=== PATIENT | female | born 1950 | race Two or more races ===

== ENCOUNTER 2019-03-08 12:43 | Day surgery (SDC) | payer MEDICARE ==
--- NOTE | 2019-03-07 17:15 | Pre-op HX & Phy Repo 2 SIG ---
DATE OF ENDOSCOPY: 03/08/2019 PRE-ENDOSCOPY HISTORY AND PHYSICAL Scheduled for outpatient Kock pouch endoscopy on 03/08/2019. HISTORY OF PRESENT ILLNESS: The patient is a 68-year-old female in overall stable health, who has a malfunctioning Kock pouch continent ileostomy. The patient has a past history of ulcerative colitis that developed at age 22. In 1978, she underwent proctocolectomy with creation of a Kock pouch. She required laparotomy for small bowel obstruction in 2000 and was told she had very minimal adhesions. Her usual routine is to empty her pouch by intubating it 3 times per day and not at all at night. She has not had any pouchitis for approximately 20 years. She uses a nasopharyngeal airway #32 as an intubation catheter and in the past year, but especially in the last 4 months, the patient has had increasing difficulty inserting her drainage catheter. She estimates the point of resistance is approximately 3 inches into the stoma. She is not having any incontinence of stool or gas. She is scheduled to undergo Kock pouch endoscopy. OPERATIONS: In addition to the above, the patient has undergone spine surgery in 2000 and 2002, bilateral carpal tunnel release, bilateral cataract surgery, and multiple treatments for kidney stones including extracorporeal shock wave lithotripsy and cystoscopic extractions for calcium stones. MEDICATIONS: Aspirin 81 mg, Lipitor, Wellbutrin, Soma, Celebrex, Celexa, vitamin B12 and iron supplements, Atrovent, Myrbetriq for bladder spasms, Protonix, and Desyrel. ALLERGIES TO MEDICATIONS: None. REVIEW OF SYSTEMS: The patient has a parathyroid tumor with elevated serum calciums and is pending surgical treatment for that. She is nulliparous. PHYSICAL EXAMINATION: GENERAL: The patient is 5 feet 4 inches and 135 pounds. In the past, she was as high as 180 to 190 pounds. ABDOMEN: Soft. There is a long midline scar. There is a small stoma in the right lower quadrant with a mild parastomal hernia. IMPRESSION: Malfunctioning Kock pouch continent ileostomy with difficulty with intubation. PLAN: The patient will undergo pouch endoscopy, which does not require any sedation or anesthesia and we will then determine further recommendations based on those findings. I have had a full discussion with the patient regarding the nature of the pouch endoscopy, indications, alternatives, options, and risks. She understands and agrees to proceed. Lalo Meadows M.D. DR: YANETH JOB#: [id number] CC: MICHELLE
[~2019-03-08] VITALS: Ht 162.6 cm; Wt 63.5 kg
--- NOTE | 2019-03-08 12:46 | Pre-Procedure Note/Attestation ---
Pre-Procedure Note/Attestation Complete Prior to Procedure Planned Procedure: not applicable Procedure Narrative: Kock Pouch endoscopy Indications for Procedure Pre-Operative Diagnosis: malfunctioning Kock pouch with difficulty with intubation Attestation I attest that I discussed the nature of the procedure; its benefits; risks and complications; and alternatives (and the risks and benefits of such alternatives ), prior to the procedure, with the patient (or the patient's legal counter sales representative). I attest that, if there was a reasonable possibility of needing a blood transfusion, the patient (or the patient's legal counter sales representative) was given the [facility] [place] [facility] standardized written summary, pursuant to the [place] Blood Safety Act ([place] Health and Safety Code # 1645, as amended). I attest that I re-evaluated the patient just prior to the surgery and that there has been no change in the patient's H&P, except as documented below: none Lalo Meadows MD March 08, 2019 12:46
[2019-03-08] MEDS ORDERED: ASPIRIN81 MG ORAL (13:26)
[2019-03-08] MEDS ORDERED: MYRBETRIQ50 MG PO (13:26)
[2019-03-08] MEDS ORDERED: CELEXA20 MG ORAL (13:26)
[2019-03-08] MEDS ORDERED: CELEBREX100 MG ORAL (13:26)
[2019-03-08] MEDS ORDERED: ATORVASTATIN CA20 MG ORAL (13:26)
[2019-03-08] MEDS ORDERED: PROTONIX40 MG ORAL (13:26)
[2019-03-08 13:27] VITALS: BP 115/66
[2019-03-08 14:05] VITALS: BP 114/71
--- NOTE | 2019-03-08 14:06 | Brief Operative Note ---
Immediate Post Operative Note Operative Note Pre-op Diagnosis: malfunctioning Kock pouch with difficulty with intubation Procedure: Kock pouch endoscopy Post-op Diagnosis: access segment stricture Post-op Diagnosis: same as pre-op Findings: consistent w/pre-op dx studies Surgeon: charlotte Anesthesia: other - none Specimen: none Complications: none Condition: stable Fluids: none Estimated Blood Loss: none Drains: none Implant(s) used?: No Lalo Meadows MD March 08, 2019 14:06
--- NOTE | 2019-03-08 20:15 | Procedure Note ---
DATE OF PROCEDURE: 03/08/2019 ENDOSCOPY PROCEDURE REPORT: ENDOSCOPIST: Lalo Meadows M.D. EYE SPECIALIST: None. ANESTHESIA: None. SEDATION: None. PRE-ENDOSCOPY DIAGNOSES: 1. Malfunctioning Kock pouch continent ileostomy with difficulty with intubation. 2. History of ulcerative colitis. 3. Status post proctocolectomy with creation of Kock pouch in 1978. 4. Status post laparotomy for small bowel obstruction in 2000. POST-ENDOSCOPY DIAGNOSES: 1. Malfunctioning Kock pouch continent ileostomy with difficulty with intubation. 2. History of ulcerative colitis. 3. Status post proctocolectomy with creation of Kock pouch in 1978. 4. Status post laparotomy for small bowel obstruction in 2000. ENDOSCOPY PERFORMED: Kock pouch continent ileostomy, pouch endoscopy. FINDINGS: A stricture of the access segment with a normal pouch and well-formed, but very shortened nipple valve. DESCRIPTION OF PROCEDURE: The patient was taken to the GI lab and without any sedation or anesthesia given or required, she was positioned supine. Using a GIF-P140 endoscope, the small stoma low in the right lower quadrant was entered without difficulty. There was a narrowing of the access segment at approximately 3 cm depth extending through the tip of the valve, which was approximately 6 to 7 cm from the stomal orifice. The pouch was filled with some thick material with undigested food, but enough of the pouch could be visualized to see that the mucosa was normal without evidence of pouchitis. Retroflexed views revealed a circumferentially well-formed nipple valve, but measuring only approximately 3 cm instead of the more normal 5 or more cm. Despite this foreshortened valve, she was having no incontinence. Withdrawal views confirmed the above findings. During the procedure, I inserted a 28-[place] Busch after removing the scope in order to irrigate the pouch and a 28-[place] Busch went with difficulty through the tip of the valve. A 26-[place] Busch went readily without any limitation and the pouch was decompressed following the endoscopy. The patient tolerated the procedure well and will need surgical revision likely to require creation of a new valve and stoma with preservation of the existing Kock pouch. Lalo Meadows M.D. DR: FACUNDO JOB#: [id number] CC:
== END 2019-03-08 14:20 | disposition home or self-care (01) ==
LOC: GAS 12:43
DX: K94.13 Enterostomy malfunction (principal); Z90.49 Acquired absence of other specified parts of digestive tract; Z87.442 Personal history of urinary calculi; Z79.899 Other long term (current) drug therapy

== ENCOUNTER 2019-08-15 07:30 | Inpatient (IN) | payer MEDICARE ==
--- NOTE | 2019-08-13 23:00 | Pre-op HX & Phy Repo 2 SIG ---
DATE OF ADMISSION: 08/14/2016 Scheduled to be admitted on August 14, 2019. HISTORY OF PRESENT ILLNESS: The patient is a 68-year-old female in overall good health with a malfunctioning Kock pouch continent ileostomy with increasing difficulty inserting her intubation drainage catheter. The patient has a past history of ulcerative colitis that developed at age 22. 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 She required laparotomy for small bowel obstruction in 2000 and was told she had minimal adhesions. She usually intubates her pouch three times a day and not at all at night. She has not had pouchitis for 20 years. She has increasing difficulty inserting the catheter about 3 inches into the stoma. She does not have any incontinence. The patient underwent Kock pouch endoscopy March 08, 2019, which revealed a stenosis of the access segment and valve with a shortened nipple valve. There was a narrowing of the access segment at approximately 3 cm depth into the stoma extending through the tip of the valve, which was approximately 6 to 7 cm from the stoma orifice. Retroflexed views during the endoscopy revealed a well-formed nipple valve, but measured only approximately 3 cm. Despite this, she was not having any incontinence. She is scheduled to undergo correction of this problem with revision of her Kock pouch. PAST MEDICAL HISTORY/MEDICATIONS: Aspirin 81 mg, Lipitor, Wellbutrin, Soma, Celebrex, Celexa, vitamin B12 and iron supplements, Atrovent nasal spray, Myrbetriq for bladder spasms, Protonix, and trazodone. ALLERGIES TO MEDICATIONS: None. OPERATIONS: In addition to the above, she underwent spine surgery in 2000 and 2002, bilateral carpal tunnel release, bilateral cataract surgery, and multiple treatments for kidney stones including extracorporeal shock wave lithotripsy and cystoscopic extractions for calcium stones. The patient underwent parathyroid adenoma resection in March 2019. PHYSICAL EXAMINATION: GENERAL: The patient is 5 foot 4 inches, 135 pounds. The patient is arriving from out of town and will be examined upon arrival in most recent exam. ABDOMEN: Soft with a long midline scar. There is a small stoma of the Kock pouch in the right lower quadrant with a mild parastomal hernia. IMPRESSION: 1. Malfunctioning Kock pouch continent ileostomy with difficulty with intubation and stricture of access segment and valve. 2. History of ulcerative colitis. 3. Status post multiple abdominal operations. 3.1. Proctocolectomy and Kock pouch in 1978. 3.2. Laparotomy for small bowel obstruction in 2000. 4. History of recurrent kidney calcium stones. 5. Status post resection of parathyroid adenoma. 6. Status post spine surgery in 2000 and 2002. PLAN: The patient will be admitted and will undergo insertion of a dual-lumen PICC line. A catheter will be placed into her Kock pouch to continuous drainage. She will receive a bowel prep and receive intravenous hydration. During the bowel prep, she will receive preoperative intravenous antibiotics and subcutaneous heparin. I have had a full discussion with the patient regarding the nature of her condition, the nature of the surgery involving laparotomy and dilating the stricture or creating a new valve and stoma with possible relocation of the stoma. I have discussed the risks including bleeding, infection, injury to adjacent structures or organs, recurrent difficulties with function or structure of the pouch, etc. I will have another complete discussion in person when she arrives. Lalo Meadows M.D. DR: JIAN JOB#: [id number] CC:
[~2019-08-15] VITALS: Ht 162.6 cm; Wt 66.3 kg
[~2019-08-15 07:30] MED LIST: ASPIRIN81 MG ORAL; ATORVASTATIN CA20 MG ORAL; CELEBREX100 MG ORAL; CELEXA20 MG ORAL; MYRBETRIQ50 MG PO; PROTONIX40 MG ORAL
[2019-08-27] MEDS ORDERED: Omnipaue 350mg/ml 100ml vial INJ ONE (06:00)
[2019-08-27 09:30] VITALS: BP 118/70
[2019-08-27] MEDS ORDERED: TRAZODONE HCL150 MG ORAL (10:00)
[2019-08-27] MEDS ORDERED: NORCO 5-325 TA1 EACH ORAL (10:00)
[2019-08-27] MEDS ORDERED: IPRATROPIUM BRO15 ML NS (10:00)
[2019-08-27] MEDS ORDERED: PAMELOR10 MG ORAL (10:00)
[2019-08-27] MEDS ORDERED: WELLBUTRIN SR100 MG ORAL (10:00)
[2019-08-27] MEDS ORDERED: CARISOPRODOL350 MG ORAL (10:00)
[2019-08-27] MEDS ORDERED: ATROVENT HFA12.9 GM IH (10:00)
[2019-08-27] MEDS ORDERED: LIQUID B-11000 MCG/1 SL (10:00)
[2019-08-27] MEDS ORDERED: Heparin1,000 units/500ml Premix(Conc:2 units/ml) IV PRN (10:30)
[2019-08-27] MEDS ORDERED: Lidocaine 1% Plain 30 ml INJ PRN (10:30)
[2019-08-27 11:06] LABS: BASOPHILS % (AUTO) 0.7 % (0.0-2.0); EOSINOPHILS % (AUTO) 1.3 % (0.0-3.0); HEMATOCRIT 31.9 % (37.0-47.0); HEMOGLOBIN 10.2 G/DL (12.0-16.0); MEAN CORPUSCULAR VOLUME 85 FL (80-99); MONOCYTES % (AUTO) 10.1 % (1.0-10.0); NEUTROPHILS % (AUTO) 61.9 % (45.0-75.0); PLATELET COUNT 218 K/UL (150-450); RED BLOOD COUNT 3.76 M/UL (4.20-5.40); RED CELL DISTRIBUTION WIDTH 13.7 % (11.6-14.8); WHITE BLOOD COUNT 5.7 K/UL (4.8-10.8)
[2019-08-27 11:13] LABS: ANION GAP 8 mmol/L (5-15); BLOOD UREA NITROGEN 14 mg/dL (7-18); CALCIUM 8.7 MG/DL (8.5-10.1); CARBON DIOXIDE 29 MMOL/L (21-32); CHLORIDE 105 MMOL/L (98-107); CREATININE 1.1 MG/DL (0.55-1.30); POTASSIUM 3.2 MMOL/L (3.5-5.1); SODIUM 142 MMOL/L (136-145)
[2019-08-27 11:29] LABS: ALANINE AMINOTRANSFERASE 30 U/L (12-78); ALBUMIN 3.4 G/DL (3.4-5.0); ALBUMIN/GLOBULIN RATIO 1.2 (1.0-2.7); ALKALINE PHOSPHATASE 60 U/L (46-116); ASPARTATE AMINO TRANSFERASE 37 U/L (15-37); BILIRUBIN,TOTAL 0.9 MG/DL (0.2-1.0); FERRITIN 6 NG/ML (8-388)
[2019-08-27 11:46] LABS: % IRON SATURATION 9 % (15-50); IRON 33 ug/dL (50-175); TOTAL IRON BINDING CAPACITY 354 ug/dL (250-450)
[2019-08-27] MEDS: Neomycin Sulfate 500mg Tab ORAL SCH ×3 (12:29→20:23)
[2019-08-27 14:08] LABS: APPEARANCE,URINE CLEAR; BILIRUBIN, URINE NEGATIVE (NEGATIVE); COLOR,URINE PALE YELLOW; GLUCOSE, URINE (UA) NEGATIVE (NEGATIVE); KETONES,URINE NEGATIVE (NEGATIVE); LEUKOCYTE ESTERASE ,URINE NEGATIVE (NEGATIVE); NITRITE,URINE NEGATIVE (NEGATIVE); PH,URINE 6.5 (4.5-8.0); PROTEIN,URINE NEGATIVE (NEGATIVE); UROBILINOGEN,URINE NORMAL MG/DL (0.0-1.0)
[2019-08-27] MEDS ORDERED: HYDROcodone/Acetamin 5/325 tab ORAL PRN (15:11)
--- NOTE | 2019-08-27 15:27 | General Progress Note ---
Progress Note Progress Note H&P dictated. Abdomen soft. Kock pouch stoma with indwelling 28Fr Busch inserted to gravity drainage pre-op Hgb 10.2 K 3.2 BUN 14 Cr 1.1 albumin 3.4 Iron 33 (50-175) Ferritin 6 B12 and folic acid okay Imp. Malfunctioning Kock Pouch anemia with severe iron deficiency borderline albumin with mild dehydration Plan: IV hydration via PICC f/u labs in AM bowel prep, continuous drainage of Kock pouch Surgery in AM Lalo Meadows MD Aug 27, 2019 15:27
--- NOTE | 2019-08-27 15:35 | Pre-Procedure Note/Attestation ---
Pre-Procedure Note/Attestation Complete Prior to Procedure Planned Procedure: not applicable Procedure Narrative: PICC Indications for Procedure Pre-Operative Diagnosis: needs IV access for TPN Attestation I attest that I discussed the nature of the procedure; its benefits; risks and complications; and alternatives (and the risks and benefits of such alternatives ), prior to the procedure, with the patient (or the patient's legal sales representative gas service). I attest that, if there was a reasonable possibility of needing a blood transfusion, the patient (or the patient's legal sales representative gas service) was given the [facility] standardized written summary, pursuant to the [place] Blood Safety Act ([place] Health and Safety Code # 1645, as amended). I attest that I re-evaluated the patient just prior to the surgery and that there has been no change in the patient's H&P, except as documented below: Yonatan Weaver MD Aug 27, 2019 15:35
--- NOTE | 2019-08-27 15:36 | Brief Operative Note ---
Immediate Post Operative Note Operative Note Pre-op Diagnosis: needs IV access for TPN Procedure: PICC Post-op Diagnosis: same as pre-op Surgeon: Holli Sands Anesthesia: local Specimen: none Complications: none Fluids: none Implant(s) used?: No Yonatan Sands MD Aug 27, 2019 15:36
[2019-08-27] MEDS: D5 1/2NS w/KCl 40meq 1000ml 1,000 ML IV SCH (15:54)
[2019-08-27 16:00] VITALS: BP 117/59
[2019-08-27] MEDS ORDERED: Iron Sucrose 200 MG in NS 110 ML IV ONE (16:00)
--- NOTE | 2019-08-27 16:11 | Anethesia Preoperative Eval ---
Anesthesia Pre-op PMH/ROS General Date of Evaluation: Aug 27, 2019 Time of Evaluation: 16:05 Anesthesiologist: Jada ASA Score: ASA 2 Mallampati Score Class I : Soft palate, uvula, fauces, pillars visible Class II: Soft palate, uvula, fauces visible Class III: Soft palate, base of uvula visible Class IV: Only hard plate visible Mallampati Classification: Class II Surgeon: Dori Diagnosis: Malfunctioning continent pouch Surgical Procedure: Ex laparotomy, revision of continent pouch Anesthesia History: none Family History: no anesthesia problems Allergies: Uncoded Allergies: CLEAR TAPE (Adverse Reaction, Intermediate, Rash, 08/27/19) Medications: see eMAR Patient NPO?: Yes Past Medical History Cardiovascular: Denies: HTN, CAD, OR, valve dz, arrhythmia, other Pulmonary: Denies: asthma, COPD, MISAEL, other Gastrointestinal/Genitourinary: Reports: GERD, other - h/o UC s/p total colectomy; Denies: CRI, ESRD Neurologic/Psychiatric: Reports: depression/anxiety, other - chronic pain; Denies: dementia, CVA, TIA Endocrine: Reports: hypothyroidism - s/p thyroid Sx; Denies: DM, steroids, other HEENT: Reports: cataract (L), cataract (R) - s/p bilateral Sx; Denies: glaucoma, RUBY (L), RUBY (R), other Hematology/Immune: Reports: anemia - mild Musculoskeletal/Integumentary: Denies: OA, RA, DJD, DDD, edema, other PMH Narrative: as above PSxH Narrative: Multiple intraabdominal Sx see H&P, lumbar spine x2, kidney stones Anesthesia Pre-op Phys. Exam Physician Exam Constitutional: NAD Neurologic: CN 2-12 intact Cardiovascular: RRR, no M/R/G Respiratory: CTA Gastrointestinal: S/NT/ND Airway Exam Mallampati Score: Class II MO: full Neck: flexible ROM: full Teeth: intact Dentures: no upper, no lower Anesthesia Pre-op A/P Labs Hematology Test 08/27/19 10:50 White Blood Count 5.7 K/UL (4.8-10.8) Red Blood Count 3.76 M/UL (4.20-5.40) L Hemoglobin 10.2 G/DL (12.0-16.0) L Hematocrit 31.9 % (37.0-47.0) L Mean Corpuscular Volume 85 FL (80-99) Mean Corpuscular Hemoglobin 27.2 PG (27.0-31.0) Mean Corpuscular Hemoglobin Concent 32.0 G/DL (32.0-36.0) Red Cell Distribution Width 13.7 % (11.6-14.8) Platelet Count 218 K/UL (150-450) Mean Platelet Volume 5.4 FL (6.5-10.1) L Neutrophils (%) (Auto) 61.9 % (45.0-75.0) Lymphocytes (%) (Auto) 26.0 % (20.0-45.0) Monocytes (%) (Auto) 10.1 % (1.0-10.0) H Eosinophils (%) (Auto) 1.3 % (0.0-3.0) Basophils (%) (Auto) 0.7 % (0.0-2.0) Coagulation Test 08/27/19 10:50 Prothrombin Time 10.7 SEC (9.30-11.50) Prothromb Time International Ratio 1.0 (0.9-1.1) Activated Partial Thromboplast Time 21 SEC (23-33) L Chemistry Test 08/27/19 10:50 Sodium Level 142 MMOL/L (136-145) Potassium Level 3.2 MMOL/L (3.5-5.1) L Chloride Level 105 MMOL/L (98-107) Carbon Dioxide Level 29 MMOL/L (21-32) Anion Gap 8 mmol/L (5-15) Blood Urea Nitrogen 14 mg/dL (7-18) Creatinine 1.1 MG/DL (0.55-1.30) Estimat Glomerular Filtration Rate 49.4 mL/min (>60) Glucose Level 72 MG/DL (74-106) L Calcium Level 8.7 MG/DL (8.5-10.1) Iron Level 33 ug/dL (50-175) L Total Iron Binding Capacity 354 ug/dL (250-450) Percent Iron Saturation 9 % (15-50) L Unsaturated Iron Binding 321 ug/dL (112-346) Ferritin 6 NG/ML (8-388) L Total Bilirubin 0.9 MG/DL (0.2-1.0) Aspartate Amino Transf (AST/SGOT) 37 U/L (15-37) Alanine Aminotransferase (ALT/SGPT) 30 U/L (12-78) Alkaline Phosphatase 60 U/L (46-116) Total Protein 6.3 G/DL (6.4-8.2) L Albumin 3.4 G/DL (3.4-5.0) Globulin 2.9 g/dL Albumin/Globulin Ratio 1.2 (1.0-2.7) Vitamin B12 Level 643 PG/ML (193-986) Folate 10.7 NG/ML (8.6-58.9) Risk Assessment & Plan Assessment: ASA 2 Plan: GA with Ett Status Change Before Surgery: No Pre-Antibiotics Drug: as scheduled Julien Elias MD Aug 27, 2019 16:11
--- NOTE | 2019-08-27 16:20 | Diagnostic Imaging Report ---
Indication: Cough Technique: One view of the chest Comparison: none Findings: Lungs and pleural spaces are clear. Heart size is normal. Impression: No acute process
--- NOTE | 2019-08-27 17:15 | Pre-op HX & Phy Repo 2 SIG ---
DATE OF ADMISSION: 08/27/2019 Please see previously dictated history. The patient arrives well developed, well nourished, in no distress. Stable vital signs. In addition to previously dictated medications, the patient takes [place] 5/325 p.r.n. for back pain related to her spine surgery procedures in the past. PHYSICAL EXAMINATION: GENERAL: The patient is well developed, well nourished, 5 feet 4 inches, approximately 135 pounds. HEENT: Within normal limits. LUNGS: Clear. HEART: Regular rhythm. BREASTS: Without masses. ABDOMEN: Soft with a long midline scar. The small stoma of her Kock pouch is low in the right lower quadrant with a mild parastomal hernia. PELVIC: Negative per primary care physician. RECTAL: Status post proctectomy. EXTREMITIES: Without edema. There are some superficial spider varicosities. Pulses 3+ femoral to pedal bilaterally. NEUROLOGIC: Physiologic. IMPRESSION: 1. Malfunctioning Kock pouch continent ileostomy with stenosis and stricture of access segment and valve. 2. History of ulcerative colitis. 3. Status post multiple abdominal operations. 3.1. Proctocolectomy and Kock pouch in 1978. 3.2. Laparotomy for small bowel obstruction in 2000. 4. History of recurrent kidney calcium stones. 5. Status post resection of parathyroid adenoma. 6. Status post spine surgery 2000 and 2002. PLAN: I have had a full discussion with the patient regarding the nature of the condition, the nature of the surgery, indications, alternatives, options, and risks of discussed dilatation of her strictured Kock pouch stoma and access segment and valve, but more likely creation of a new valve and stoma with preservation of the existing Kock pouch, possible relocation of the stoma. I have discussed the risks of bleeding, infection, injury to adjacent structures or organs, adhesions likely to bowel obstruction, recurrent hernias, etc. I have also discussed the specific risks including, recurrent difficulties with her Kock pouch including slipped valve or fistula of pouch or valve or other difficulties with the function or structure of the pouch that could require additional surgery. All questions have been answered. The patient understands and agrees to proceed. She has undergone insertion of a dual lumen PICC line. She will require intravenous hydration. She will possibly require TPN as her admission albumin is borderline low at 3.4. Serum iron of 33, ferritin of 6, potassium 3.2, BUN 14, creatinine 1.1. She will receive intravenous Venofer 200 mg tonight preoperatively. Continuous drainage of her Kock pouch with an indwelling catheter to drainage bag. Bowel prep with intravenous hydration and intravenous antibiotics and preoperative subcutaneous heparin. Repeat labs will be done after the patient is hydrated overnight and if her albumin is low indicating protein malnutrition, she will likely benefit from TPN postoperatively. All the patient's questions were answered. Lalo Meadows M.D. DR: FACUNDO JOB#: [id number] CC:
--- NOTE | 2019-08-27 17:22 | Diagnostic Imaging Report ---
Indications: Needs long-term IV access Technique: Ultrasound confirms patent compressible left basilic vein. Total sterile technique, including sterile probe cover and sterile gel, hat, mask, sterile gown, large sterile drape, and preparation with 2% chlorhexidine utilized. Local anesthesia with 1% lidocaine. Under real-time ultrasound guidance, puncture basilic vein using 21-gauge needle, documented and archived, passage 0.018 guidewire under direct fluoroscopy, which would not pass beyond the subclavian vein. 4 Turkish peel-away sheath was inserted, followed by insertion of a Kumpe catheter. This was used to perform a limited subclavian venogram. This demonstrates near occlusive stenosis but patency of the left subclavian vein. With the aid of a hydrophilic guidewire, the Kumpe catheter was directed beyond the stenosis and into the superior vena cava. The hydrophilic wire was exchanged for a 0.018 guidewire, with was used to determine appropriate catheter length. 4 Turkish dual-lumen power PICC cut to 46 cm. It was inserted through the peel-away sheath. Peel-away sheath and guidewire removed. Catheter fixed to the skin. Both catheter ports aspirated and flushed. Patient tolerated procedure well, without immediate complication. Digital radiograph documents satisfactory catheter tip position, at the cavoatrial junction. Total fluoroscopy time 133.7 seconds. Total dose area product [id number] mGym2 Total number of images: 2 Impression: Successful placement of left arm PICC under sonographic and fluoroscopic guidance, as described above. No evidence of central venoocclusive disease. Successful catheter placement despite slight
[2019-08-27] MEDS ORDERED: D5 1/2NS w/KCl 20mEq 1,000 ML IV SCH (18:00)
[2019-08-27] MEDS: BuPROPion SR 100mg tab ORAL SCH (18:15)
[2019-08-27] MEDS: Flonase Nasal Inhaler 16gm NASAL SCH (18:15)
[2019-08-27 20:00] VITALS: BP 114/63
[2019-08-27] MEDS ORDERED: Dyna-Hex 2% Top Sol 2oz TOPIC SCH (20:00)
[2019-08-27] MEDS ORDERED: TraZODone 100mg tab ORAL SCH (21:00)
[2019-08-27] MEDS: Ampicillin/Sulbactam Sod 3 GM in NS 110 ML IVPB SCH (23:31)
[2019-08-28] VITALS (34 sets, daily range): BP systolic 76–138; BP diastolic 38–81
[2019-08-28] MEDS: D5 1/2NS w/KCl 40meq 1000ml 1,000 ML IV SCH (01:14)
[2019-08-28 04:46] LABS: BASOPHILS % (AUTO) 0.6 % (0.0-2.0); EOSINOPHILS % (AUTO) 0.8 % (0.0-3.0); HEMATOCRIT 30.4 % (37.0-47.0); HEMOGLOBIN 9.8 G/DL (12.0-16.0); LYMPHOCYTES % (AUTO) 12.2 % (20.0-45.0); MEAN CORPUSCULAR VOLUME 86 FL (80-99); MONOCYTES % (AUTO) 7.1 % (1.0-10.0); NEUTROPHILS % (AUTO) 79.3 % (45.0-75.0); PLATELET COUNT 191 K/UL (150-450); RED BLOOD COUNT 3.55 M/UL (4.20-5.40); RED CELL DISTRIBUTION WIDTH 13.8 % (11.6-14.8)
[2019-08-28 05:11] LABS: ALANINE AMINOTRANSFERASE 27 U/L (12-78); ALBUMIN 3.1 G/DL (3.4-5.0); ALBUMIN/GLOBULIN RATIO 1.1 (1.0-2.7); ALKALINE PHOSPHATASE 57 U/L (46-116); ANION GAP 4 mmol/L (5-15); ASPARTATE AMINO TRANSFERASE 35 U/L (15-37); BILIRUBIN,TOTAL 0.6 MG/DL (0.2-1.0); BLOOD UREA NITROGEN 6 mg/dL (7-18); CALCIUM 8.4 MG/DL (8.5-10.1); CARBON DIOXIDE 29 MMOL/L (21-32); CHLORIDE 110 MMOL/L (98-107); POTASSIUM 3.7 MMOL/L (3.5-5.1); SODIUM 143 MMOL/L (136-145)
[2019-08-28] MEDS: Ampicillin/Sulbactam Sod 3 GM in NS 110 ML IVPB SCH ×2 (05:23→18:00)
[2019-08-28] MEDS ORDERED: Heparin 5000 units/ml inj SUBQ SCH (05:30)
[2019-08-28] MEDS ORDERED: LR 1000ml ONE (07:00)
[2019-08-28] MEDS ORDERED: Sterile Water Irrig 1000ml IRRIG ONE (07:00)
[2019-08-28] MEDS ORDERED: NS Irrig 1000ml ONE (07:00)
--- NOTE | 2019-08-28 07:02 | Pre-Procedure Note/Attestation ---
Pre-Procedure Note/Attestation Complete Prior to Procedure Planned Procedure: not applicable Procedure Narrative: revision of Kock Pouch continent ileostomy, gastrostomy Indications for Procedure Pre-Operative Diagnosis: malfunctioning Kock Pouch Attestation I attest that I discussed the nature of the procedure; its benefits; risks and complications; and alternatives (and the risks and benefits of such alternatives ), prior to the procedure, with the patient (or the patient's legal construction representative). I attest that, if there was a reasonable possibility of needing a blood transfusion, the patient (or the patient's legal construction representative) was given the [facility] standardized written summary, pursuant to the [place] Blood Safety Act ([place] Health and Safety Code # 1645, as amended). I attest that I re-evaluated the patient just prior to the surgery and that there has been no change in the patient's H&P, except as documented below: none Lalo Meadows MD Aug 28, 2019 07:02
[2019-08-28] MEDS ORDERED: Midazolam 2mg/2ml Inj ONE (07:14)
[2019-08-28] MEDS ORDERED: fentaNYL 100 mcg/2 mL IV ONE (07:14)
[2019-08-28] MEDS ORDERED: Propofol 200mg/20ml IV ONE (07:14)
[2019-08-28] MEDS ORDERED: Lidocaine 1% MPF 10mg/ml 5ml ONE (07:14)
[2019-08-28] MEDS ORDERED: Rocuronium Bromide 50mg/5ml Inj IV ONE (07:22)
[2019-08-28] MEDS ORDERED: Succinylcholine 20mg/ml 10ml vial ONE (07:22)
[2019-08-28] MEDS ORDERED: NS Irrig 1000ml IRRIG ONE (07:30)
[2019-08-28] MEDS ORDERED: Bacitracin 50000 Units Vial IRRIG ONE (07:30)
[2019-08-28] MEDS ORDERED: ePHEDrine 50mg/ml Inj ONE (08:20)
[2019-08-28] MEDS ORDERED: Sodium Chloride 10ml vial INJ ONE ×2 (08:20→08:27)
[2019-08-28] MEDS ORDERED: Morphine Sulfate 10mg/ml Inj ONE (08:27)
[2019-08-28] MEDS ORDERED: Ketorolac 30mg Inj ONE (08:30)
[2019-08-28] MEDS ORDERED: Glycopyrrolate 0.2mg/ml 1ml Vial ONE (08:30)
[2019-08-28] MEDS ORDERED: Neostigmine 1mg/ml 10ml Inj ONE (08:30)
[2019-08-28] MEDS ORDERED: Acetaminophen (Non formulary) 100 ML IV SCH (08:45)
[2019-08-28] MEDS: Flonase Nasal Inhaler 16gm NASAL SCH ×2 (09:00→18:46)
[2019-08-28] MEDS: BuPROPion SR 100mg tab ORAL SCH ×2 (09:00→19:06)
[2019-08-28] MEDS ORDERED: Citalopram Hydrobromide 10mg Tab ORAL SCH (09:00)
[2019-08-28] MEDS ORDERED: Ketorolac 30mg Inj IV PRN (09:15)
[2019-08-28] MEDS ORDERED: Hydromorphone 0.5mg/0.5ml inj IVP PRN (09:15)
[2019-08-28] MEDS ORDERED: LR 1000ml 1,000 ML IVLG SCH (09:15)
[2019-08-28] MEDS ORDERED: DiphenhydrAMINE 50mg/ml Inj IVP PRN ×3 (09:15→16:50)
[2019-08-28] MEDS ORDERED: Metoclopramide 10mg/2ml Inj IVP PRN (09:15)
[2019-08-28] MEDS ORDERED: D5 1/4NS w/KCl 20mEq 1,000 ML IV SCH (11:05)
--- NOTE | 2019-08-28 11:10 | Brief Operative Note ---
Immediate Post Operative Note Operative Note Pre-op Diagnosis: malfunctioning Kock Pouch Procedure: revision of Kock pouch with creation of new valve and stoma, gastrostomy Post-op Diagnosis: same Post-op Diagnosis: same as pre-op Findings: consistent w/pre-op dx studies Surgeon: charlotte Knot Cutter: antoinette Anesthesiologist: ruben Anesthesia: general Specimen: yes - Kock pouch stoma, bowel trimmings and segments Complications: none Condition: stable Fluids: see anesthesia record Estimated Blood Loss: volume - 100cc Drains: other - 28 Busch to Kock pouch; 18Fr gastrostomy Implant(s) used?: No Lalo Meadows MD Aug 28, 2019 11:10
[2019-08-28] MEDS ORDERED: PCA Education Pamphlet MISC ONE (11:15)
[2019-08-28] MEDS ORDERED: Naloxone 0.4mg/ml Inj IVP PRN ×2 (11:15→16:46)
[2019-08-28] MEDS ORDERED: Rate Change PCA 1 Each MISC PRN (11:15)
[2019-08-28] MEDS ORDERED: Acetaminophen 650mg/20.3ml ORAL PRN ×2 (11:15→16:49)
[2019-08-28] MEDS ORDERED: LORazepam 1mg tab SL PRN ×2 (11:15→16:50)
[2019-08-28] MEDS ORDERED: PCA HYDROmorphone 1mg/ml 30 ML IV PRN ×2 (11:15→16:49)
--- NOTE | 2019-08-28 11:21 | Immediate Post-Op Evaluation ---
Immediate Post-Op Evalulation Immediate Post-Op Evalulation Procedure: Exploratory laparotomy, lysis of adhesions, revision of continent pouch, Date of Evaluation: Aug 28, 2019 Time of Evaluation: 11:18 IV Fluids: 1200 Blood Products: Albumin 250 Estimated Blood Loss: 100 Urinary Output: 250 Blood Pressure Systolic: 107 Blood Pressure Diastolic: 58 Pulse Rate: 86 Respiratory Rate: 20 O2 Sat by Pulse Oximetry: 99 Temperature (Fahrenheit): 98.1 Pain Score (1-10): 2 Nausea: No Vomiting: No Complications none Patient Status: reacts, patent, extubated, none Hydration Status: adequate Julien Elias MD Aug 28, 2019 11:21
[2019-08-28] MEDS ORDERED: Ampicillin/Sulbactam Sod 3 GM in NS 110 ML IV SCH (12:00)
[2019-08-28 14:01] LABS: HEMATOCRIT 22.8 % (37.0-47.0); HEMOGLOBIN 7.2 G/DL (12.0-16.0); MEAN CORPUSCULAR VOLUME 87 FL (80-99); PLATELET COUNT 137 K/UL (150-450); RED BLOOD COUNT 2.63 M/UL (4.20-5.40); RED CELL DISTRIBUTION WIDTH 14.1 % (11.6-14.8); WHITE BLOOD COUNT 6.6 K/UL (4.8-10.8)
--- NOTE | 2019-08-28 16:16 | General Progress Note ---
Progress Note Progress Note Hypotensive in PACU 70s with mild tachycardia. Pre-op Hgb 9.8 in PACU 7.2 Now BP up, patient awake and alert, comfortable with dilaudid CONTRACTS ADMINISTRATOR, good clear urine output Abdomen soft, non-distended, dressing dry. Gastrostomy bilious Kock pouch ileo sang 150cc in PACU Imp: Post-op bleeding/anemia Plan: Transfuse 2 units PRBC then repeat CBC Maintain in ICU NPO except po meds Kock pouch and gastrostomy catheters to continuous drainage Lalo Meadows MD Aug 28, 2019 16:16
[2019-08-28] MEDS ORDERED: Lidocaine 1% Plain 30 ml INJ ONE (16:45)
[2019-08-28] MEDS ORDERED: Heparin1,000 units/500ml Premix(Conc:2 units/ml) IV ONE (16:45)
[2019-08-28] MEDS: D5 1/4NS w/KCl 20mEq 1,000 ML IV SCH (18:25)
[2019-08-28] MEDS ORDERED: PCA shift volume MISC SCH (19:00)
[2019-08-28] MEDS: PCA shift volume MISC SCH (19:14)
[2019-08-28] MEDS ORDERED: Dyna-Hex 2% Top Sol 2oz TOPIC SCH (20:00)
[2019-08-28] MEDS ORDERED: Neomycin Sulfate 500mg Tab ORAL SCH (20:00)
[2019-08-28] MEDS ORDERED: TraZODone 100mg tab ORAL SCH (21:00)
[2019-08-28] MEDS ORDERED: Iron Sucrose 100 MG in NS 55 ML IV SCH ×4 (21:00)
[2019-08-28 22:09] LABS: HEMATOCRIT 35.3 % (37.0-47.0); HEMOGLOBIN 11.7 G/DL (12.0-16.0); MEAN CORPUSCULAR VOLUME 85 FL (80-99); PLATELET COUNT 137 K/UL (150-450); RED BLOOD COUNT 4.13 M/UL (4.20-5.40); RED CELL DISTRIBUTION WIDTH 12.8 % (11.6-14.8); WHITE BLOOD COUNT 9.1 K/UL (4.8-10.8)
[2019-08-29] VITALS (17 sets, daily range): BP systolic 5–114; BP diastolic 25–66
[2019-08-29] MEDS: Ampicillin/Sulbactam Sod 3 GM in NS 110 ML IVPB SCH ×4 (00:04→17:58)
--- NOTE | 2019-08-29 01:15 | Operative Note - Dictated ---
DATE OF OPERATION: 08/28/2019 SURGEON: Lalo Meadows M.D. GLOVE MACHINE OPERATOR: Rob Cole M.D. ANESTHESIOLOGIST: Julien Elias M.D. TYPE OF ANESTHESIA: General endotracheal. PREOPERATIVE DIAGNOSES: 1. 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 2. History of ulcerative colitis. 3. STATUS POST MULTIPLE ABDOMINAL OPERATIONS: 3.1. Proctocolectomy and Kock pouch in 1978. 3.2. Laparotomy for small bowel obstruction in 2000. POSTOPERATIVE DIAGNOSES: 1. 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 2. History of ulcerative colitis. 3. STATUS POST MULTIPLE ABDOMINAL OPERATIONS: 3.1. Proctocolectomy and Kock pouch in 1978. 3.2. Laparotomy for small bowel obstruction in 2000. OPERATION PERFORMED: Laparotomy with creation of new valve and stoma with preservation of Kock pouch, enteroenterostomy, revision of stoma in depth, and catheter gastrostomy. DESCRIPTION OF PROCEDURE: The patient was taken to the operating room and under general endotracheal anesthesia with sequential compression device stockings and Busch catheter in place, she was prepped and draped in the usual fashion. Previous midline incision was reopened from below the umbilicus to the pubis excising a wide scar at the inferior pole. There were moderate adhesions to the anterior abdominal wall and interloop adhesions. The pouch was mobilized from the pelvis, and adhesions to the right fallopian tube were taken down. Uterus, tubes, and ovaries were normal. The small bowel loops were all normal. The afferent bowel leading to the pouch was quite dilated a not unusual finding with Kock pouch. A Kock pouch enterotomy was created between 3-0 silk stay sutures and the nipple valve was not only stenotic, but only approximately 2 cm, although she was not having any incontinence. I felt that to try and dilate the strictured stenotic area may relieve difficulty with intubation, but likely will cause incontinence. Therefore, a new valve needed to be created. A transversely oriented elliptical incision was made around the stoma and the stoma dissected through scar tissue bringing it into the abdomen. The access segment mesentery was divided with the Thunderbeat electrosurgical device and the bowel divided with the linear stapler 60 green cartridge. Now, the proximal bowel was mobilized in an appropriate location, divided with the automatic pursestring device proximally and distally with the linear stapler 60 to become an enteroenterostomy to restore continuity. Now, at an appropriate location adjacent to the old valve in the pouch, using the 25 CEEA the anvil was placed into the proximal bowel with the automatic pursestring device had been utilized and was tied and the end-to-side anastomosis created. However it became clear that the mesentery was very friable and had partially disrupted requiring additional hemostasis and the proximal 2 to 3 cm became ischemic. Accordingly the anastomosis was taken down, the ischemic 3cm of bowel was resected and with the fresh proximal end, a hand-sewn one layer of 3-0 Vicryl anastomosis was created with 3-0 silk placed on each side from the valve segment to the pouch. Now, 12 cm proximal was marked for the valve segment and the peritoneum overlying the mesentery was stripped and the serosa scarified with cautery. The abdominal wall thickness measured 3 cm. Appropriate length access segment was measured and marked. The bowel divided proximally with a linear stapler 60, distally left open to become a new stoma and mesentery divided with the Thunderbeat. Now with gradual intussusception, a 5.5 cm long nipple valve was created. Using the linear stapler 60 with the pin removed and the blue cartridge, two rows of lu were placed away from the mesentery and then a third layer of lu placed to staple the valve to the anterior pouch wall with green cartridge. Additional 3-0 silk sutures taken between the access segment and the pouch. Now, the enteroenterostomy was created to restore continuity of the bowel [id number] functional end-to-end using the VAMSI to create the anastomosis and close the enterotomy with a 3-0 silk at the apex and generous two fingerbreadth anastomosis created. Mesentery closed with 3-0 silk. The pelvis was irrigated and inspected. The pouch enterotomy was closed after ascertaining a 28-[place] Busch could readily go through the stoma into the pouch. The pouch enterotomy closed with continuous locking full-thickness 2-0 chromic imbricated with 3-0 silk. The afferent bowel was manually occluded and the pouch distended with 600 mL of saline. There was no sign of any extravasation. The catheter was removed. There was no incontinence. The catheter was reintroduced and the pouch decompressed and placed into the pelvis. In view of all the dissection and anastomosis, I felt that decompression from above was indicated and an 18-[place] Busch catheter brought through a stab incision in the left upper quadrant placed into the stomach greater curve body between two concentric 2-0 chromic pursestring sutures with the balloon inflated and the stomach tacked to the anterior abdominal wall with multiple interrupted 3-0 silk sutures. The catheter was sutured to the skin with a 2-0 silk. Hemostasis was secured throughout the abdomen and pelvis. The 28-[place] Busch was appropriately positioned after bringing the access segment back up through the same stoma site. The lateral extension of the peristomal skin incision was closed with 4-0 Monocryl. Slight redundancy of the access segment was excised and the stoma primarily matured with continuous 2-0 chromic locking sutures starting at the 3 and 9 o'clock position. The catheter was positioned in the apex and the catheter sutured to the skin with two sutures of 2-0 silk. It was flushed and connected to a gravity drainage bag as was the gastrostomy. Throughout the procedure, antibiotic-soaked laps protected the abdominal wall. The bowel loops were replaced anatomically. The midline incision was closed with continuous #1 looped PDS. Additional antibiotic irrigation used and the skin closed with lu. Dry sterile dressings were applied. Final sponge and needle counts were correct. The patient tolerated the procedure well and left the operating room in good condition. Lalo Meadows M.D. DR: WANDA JOB#: [id number] CC: MICHELLE
[2019-08-29] MEDS: D5 1/4NS w/KCl 20mEq 1,000 ML IV SCH ×3 (02:26→21:04)
[2019-08-29 05:17] LABS: BASOPHILS % (AUTO) 0.2 % (0.0-2.0); EOSINOPHILS % (AUTO) 0.1 % (0.0-3.0); HEMATOCRIT 33.4 % (37.0-47.0); LYMPHOCYTES % (AUTO) 8.6 % (20.0-45.0); MEAN CORPUSCULAR VOLUME 86 FL (80-99); MONOCYTES % (AUTO) 8.2 % (1.0-10.0); NEUTROPHILS % (AUTO) 82.9 % (45.0-75.0); PLATELET COUNT 145 K/UL (150-450); RED BLOOD COUNT 3.89 M/UL (4.20-5.40); WHITE BLOOD COUNT 9.8 K/UL (4.8-10.8)
[2019-08-29 05:23] LABS: ANION GAP 4 mmol/L (5-15); BLOOD UREA NITROGEN 4 mg/dL (7-18); CALCIUM 7.6 MG/DL (8.5-10.1); CARBON DIOXIDE 27 MMOL/L (21-32); CHLORIDE 111 MMOL/L (98-107); CREATININE 0.9 MG/DL (0.55-1.30); SODIUM 141 MMOL/L (136-145)
[2019-08-29] MEDS: PCA shift volume MISC SCH ×2 (07:12→19:23)
[2019-08-29] MEDS ORDERED: Dextrose 10% 1,000 ML IV PRN ×2 (07:15)
--- NOTE | 2019-08-29 07:17 | General Progress Note ---
Progress Note Progress Note AVSS Feels fine except incisional pain with movement chest clear decreased expansion cor reg rhythm Abdomen slightly distended, incision clean, stoma pink, some bleeding from gastrostomy site Urine overnight 12 hours: 645 Gastrostomy - scant Kock pouch - scant but enteric, not bloody WBC 9800 Hgb 9.8 pre-op, 7.2 in PACU, after 2 units PRBC Hgb 11.7 and not 11 BUN 4 Cr 0.9 albumin pre-op low 3.1 IMp. Post-op hypotension ? blood loss - Hgb from 7.2 to 11 after 2 units Malnutrition Plan: NPO, continue Busch, mobilize f/u CBC at 1100 - if patient stable will transfer out of ICU TPN Lalo Meadows MD Aug 29, 2019 07:17
[2019-08-29] MEDS ORDERED: Pantoprazole Inj IVP SCH ×2 (09:00)
[2019-08-29] MEDS ORDERED: Citalopram Hydrobromide 10mg Tab ORAL SCH (09:00)
[2019-08-29] MEDS ORDERED: Rate Change PCA 1 Each MISC PRN (09:00)
[2019-08-29] MEDS: BuPROPion SR 100mg tab ORAL SCH ×2 (09:13→17:58)
--- NOTE | 2019-08-29 09:13 | 48 Hour Post Anesthesia Eval ---
Post Anesthesia Evaluation Procedure: Exploratory laparotomy, lysis of adhesions, revision of continent pouch, Date of Evaluation: Aug 29, 2019 Time of Evaluation: 09:07 Blood Pressure Systolic: 102 0: 52 Pulse Rate: 90 Respiratory Rate: 18 Temperature (Fahrenheit): 97.6 O2 Sat by Pulse Oximetry: 96 Airway: patent Nausea: No Vomiting: No Pain Intensity: 3 Hydration Status: adequate Cardiopulmonary Status: still comparatively hypotensive, mild tachycardia, good urine output Mental Status/LOC: patient returned to baseline Follow-up Care/Observations: Persistent hypotension in PACU during early postoperative hours, significant drop on Hb value on Stat CBC, improved after transfusion of 2 units of RBC, overnight in ICU, hemodynamically stable Post-Anesthesia Complications: none Follow-up care needed: N/A Julien Elias MD Aug 29, 2019 09:13
[2019-08-29] MEDS: Flonase Nasal Inhaler 16gm NASAL SCH ×2 (09:14→17:58)
[2019-08-29 11:58] LABS: BASOPHILS % (AUTO) 0.3 % (0.0-2.0); EOSINOPHILS % (AUTO) 0.2 % (0.0-3.0); HEMATOCRIT 35.1 % (37.0-47.0); HEMOGLOBIN 11.2 G/DL (12.0-16.0); LYMPHOCYTES % (AUTO) 6.9 % (20.0-45.0); MEAN CORPUSCULAR VOLUME 86 FL (80-99); MONOCYTES % (AUTO) 9.9 % (1.0-10.0); NEUTROPHILS % (AUTO) 82.7 % (45.0-75.0); PLATELET COUNT 141 K/UL (150-450); RED BLOOD COUNT 4.08 M/UL (4.20-5.40); RED CELL DISTRIBUTION WIDTH 13.9 % (11.6-14.8); WHITE BLOOD COUNT 10.5 K/UL (4.8-10.8)
[2019-08-29] MEDS ORDERED: D5 1/4NS w/KCl 20mEq 1,000 ML IV SCH ×2 (14:30→21:00)
[2019-08-29] MEDS ORDERED: PCA HYDROmorphone 1mg/ml 30 ML IV PRN ×2 (14:32→16:30)
[2019-08-29] MEDS ORDERED: DiphenhydrAMINE 50mg/ml Inj IVP PRN (14:33)
[2019-08-29] MEDS ORDERED: Naloxone 0.4mg/ml Inj IVP PRN (14:33)
[2019-08-29] MEDS ORDERED: LORazepam 1mg tab SL PRN (14:33)
[2019-08-29] MEDS: Dyna-Hex 2% Top Sol 2oz TOPIC SCH (20:23)
[2019-08-29] MEDS: Fat Emulsion Iv 20% 216 ML in Tpn 1,584 ML IV SCH (20:50)
[2019-08-29] MEDS: TraZODone 100mg tab ORAL SCH ×2 (21:00→21:06)
[2019-08-29] MEDS ORDERED: Fat Emulsion Iv 20% 250 ML IV SCH (21:00)
[2019-08-29] MEDS ORDERED: Fat Emulsion Iv 20% 216 ML in Tpn 1,584 ML IV SCH (21:00)
[2019-08-29] MEDS: Iron Sucrose 100 MG in NS 55 ML IV SCH (21:05)
[2019-08-29] MEDS: Acetaminophen 650mg/20.3ml ORAL PRN (23:04)
[2019-08-30] VITALS (7 sets, daily range): BP systolic 126–153; BP diastolic 66–79
[2019-08-30] MEDS ORDERED: NovoLOG Insulin Flexpen SUBQ SCH
[2019-08-30] MEDS: Ampicillin/Sulbactam Sod 3 GM in NS 110 ML IVPB SCH ×5 (00:27→23:59)
[2019-08-30] MEDS: NovoLOG Insulin Flexpen SUBQ SCH ×4 (00:37→17:54)
[2019-08-30 06:43] LABS: BASOPHILS % (AUTO) 0.3 % (0.0-2.0); EOSINOPHILS % (AUTO) 0.4 % (0.0-3.0); HEMATOCRIT 34.4 % (37.0-47.0); HEMOGLOBIN 11.2 G/DL (12.0-16.0); LYMPHOCYTES % (AUTO) 5.6 % (20.0-45.0); MEAN CORPUSCULAR VOLUME 87 FL (80-99); MONOCYTES % (AUTO) 9.9 % (1.0-10.0); NEUTROPHILS % (AUTO) 83.8 % (45.0-75.0); PLATELET COUNT 141 K/UL (150-450); RED BLOOD COUNT 3.96 M/UL (4.20-5.40); RED CELL DISTRIBUTION WIDTH 14.1 % (11.6-14.8); WHITE BLOOD COUNT 10.7 K/UL (4.8-10.8)
[2019-08-30] MEDS: PCA shift volume MISC SCH ×2 (07:00→19:29)
[2019-08-30 07:01] LABS: ALANINE AMINOTRANSFERASE 20 U/L (12-78); ALBUMIN 2.3 G/DL (3.4-5.0); ALBUMIN/GLOBULIN RATIO 0.8 (1.0-2.7); ALKALINE PHOSPHATASE 46 U/L (46-116); ANION GAP 3 mmol/L (5-15); ASPARTATE AMINO TRANSFERASE 19 U/L (15-37); BILIRUBIN,TOTAL 0.6 MG/DL (0.2-1.0); BLOOD UREA NITROGEN 4 mg/dL (7-18); CALCIUM 8.1 MG/DL (8.5-10.1); CARBON DIOXIDE 31 MMOL/L (21-32); CHLORIDE 110 MMOL/L (98-107); CREATININE 0.9 MG/DL (0.55-1.30); POTASSIUM 4.2 MMOL/L (3.5-5.1); SODIUM 144 MMOL/L (136-145)
[2019-08-30] MEDS ORDERED: Rate Change PCA 1 Each MISC PRN (09:00)
[2019-08-30] MEDS: Flonase Nasal Inhaler 16gm NASAL SCH ×2 (09:00→17:48)
[2019-08-30] MEDS ORDERED: Phytonadione 10 mg/mL 1ml amp SUBQ SCH (09:00)
[2019-08-30] MEDS: Citalopram Hydrobromide 10mg Tab ORAL SCH (09:22)
[2019-08-30] MEDS: BuPROPion SR 100mg tab ORAL SCH ×2 (09:22→17:21)
[2019-08-30] MEDS: Pantoprazole Inj IVP SCH (09:22)
--- NOTE | 2019-08-30 09:39 | General Progress Note ---
Progress Note Progress Note AVSS Comfortable not using tdp displays analyst demand dosing much aBdomen soft, mildly distended, incisions clean, stoma pink Urine 1889 Gastrostomy 140 Kock pouch ileo 115 WBC 10,700 Hgb 11.2 albumin 2.3 Imp. Ileus Pre-op malnutrition Plan: NPO, TPN, continue Busch ambulate BID f/u labs Lalo Meadows MD Aug 30, 2019 09:39
[2019-08-30] MEDS: Phytonadione 10 mg/mL 1ml amp SUBQ SCH (10:54)
--- NOTE | 2019-08-30 15:04 | Diagnostic Imaging Report ---
Indication: Shortness of breath Technique: One view of the chest Comparison: 08/27/2019 Findings: Interim placement of left arm PICC. Interval development of infiltrate in the left mid and lower lung and in the retrocardiac region. Impression: Left mid and lower lung and retrocardiac infiltrate, likely pneumonia, developing since 08/27/2019
[2019-08-30] MEDS ORDERED: PCA HYDROmorphone 1mg/ml 30 ML IV PRN (16:30)
[2019-08-30] MEDS ORDERED: Albuterol ud Inhalation HHN SCH (17:15)
[2019-08-30] MEDS: Albuterol ud Inhalation HHN SCH ×2 (19:24→23:17)
[2019-08-30] MEDS: TraZODone 100mg tab ORAL SCH (20:14)
[2019-08-30] MEDS: Iron Sucrose 100 MG in NS 55 ML IV SCH (20:14)
[2019-08-30] MEDS: Dyna-Hex 2% Top Sol 2oz TOPIC SCH (20:14)
[2019-08-30] MEDS: D5 1/4NS w/KCl 20mEq 1,000 ML IV SCH (20:15)
[2019-08-30] MEDS: Fat Emulsion Iv 20% 216 ML in Tpn 1,584 ML IV SCH (20:16)
[2019-08-30] MEDS ORDERED: Tubing IV Secondary IV ONE ×2 (20:33→21:23)
[2019-08-30] MEDS ORDERED: NS Irrig 1000ml ONE (20:33)
[2019-08-30] MEDS ORDERED: NS 500ML ONE (20:33)
[2019-08-30] MEDS ORDERED: NS 275ml ONE (21:23)
[2019-08-31] VITALS (8 sets, daily range): BP systolic 84–146; BP diastolic 48–83
[2019-08-31] MEDS: NovoLOG Insulin Flexpen SUBQ SCH ×4 (00:01→18:00)
[2019-08-31] MEDS: Acetaminophen 650mg/20.3ml ORAL PRN (00:22)
[2019-08-31] MEDS: Albuterol ud Inhalation HHN SCH ×2 (03:00→07:00)
[2019-08-31 05:31] LABS: BASOPHILS % (AUTO) 0.3 % (0.0-2.0); HEMATOCRIT 30.8 % (37.0-47.0); HEMOGLOBIN 10.1 G/DL (12.0-16.0); LYMPHOCYTES % (AUTO) 6.2 % (20.0-45.0); MEAN CORPUSCULAR VOLUME 85 FL (80-99); MONOCYTES % (AUTO) 9.8 % (1.0-10.0); NEUTROPHILS % (AUTO) 82.8 % (45.0-75.0); PLATELET COUNT 138 K/UL (150-450); RED BLOOD COUNT 3.62 M/UL (4.20-5.40); RED CELL DISTRIBUTION WIDTH 14.1 % (11.6-14.8); WHITE BLOOD COUNT 8.5 K/UL (4.8-10.8)
[2019-08-31 05:49] LABS: ALANINE AMINOTRANSFERASE 17 U/L (12-78); ALBUMIN 2.1 G/DL (3.4-5.0); ALBUMIN/GLOBULIN RATIO 0.7 (1.0-2.7); ALKALINE PHOSPHATASE 44 U/L (46-116); ANION GAP 2 mmol/L (5-15); ASPARTATE AMINO TRANSFERASE 14 U/L (15-37); BILIRUBIN,TOTAL 0.5 MG/DL (0.2-1.0); BLOOD UREA NITROGEN 7 mg/dL (7-18); CALCIUM 8.4 MG/DL (8.5-10.1); CARBON DIOXIDE 34 MMOL/L (21-32); CHLORIDE 110 MMOL/L (98-107); CREATININE 0.8 MG/DL (0.55-1.30); PHOSPHORUS 1.6 MG/DL (2.5-4.9); POTASSIUM 3.5 MMOL/L (3.5-5.1); SODIUM 146 MMOL/L (136-145)
[2019-08-31] MEDS: Ampicillin/Sulbactam Sod 3 GM in NS 110 ML IVPB SCH ×3 (05:49→18:35)
[2019-08-31] MEDS: PCA shift volume MISC SCH ×2 (07:24→19:19)
[2019-08-31] MEDS: Citalopram Hydrobromide 10mg Tab ORAL SCH ×2 (09:00→09:55)
--- NOTE | 2019-08-31 09:19 | General Progress Note ---
Progress Note Progress Note Tmax 101.2 Feels okay No cough or sputum when coughs CXR revealed retrocardiac pneumonia Abdomen soft, mildly distended, incision clean, stoma pink Urine 2350 Gastrostomy small amount bilious Kock pouch ileo 370cc enteric WBC 8500 Hgb down 10.1 Platelets down 138,000 Na 146 K 3.5 BUN 7 Cr 0.8 Phos 1.6 Mg 1.6 albumin 2.1 Imp: Pneumonia by CXR with fever Ileus Plan; Pulmonology eval Dr. Pope continue TPN, npo, Busch replace low Mg and P f/u labs PT mobility protocol Lalo Meadows MD Aug 31, 2019 09:19
[2019-08-31] MEDS: BuPROPion SR 100mg tab ORAL SCH ×2 (09:55→18:03)
[2019-08-31] MEDS: Pantoprazole Inj IVP SCH (09:56)
[2019-08-31] MEDS ORDERED: D5W w/KCl 20mEq 1,000 ML IV SCH (10:00)
[2019-08-31] MEDS: Flonase Nasal Inhaler 16gm NASAL SCH ×2 (10:14→18:35)
[2019-08-31] MEDS ORDERED: Potassium Phosphate 30 MM in NS 275 ML IV ONE (10:30)
[2019-08-31] MEDS ORDERED: Albuterol ud Inhalation HHN SCH (12:00)
[2019-08-31] MEDS: Albuterol/Ipratropium 3ml neb HHN SCH ×2 (13:11→19:19)
--- NOTE | 2019-08-31 15:00 | Consultation ---
DATE OF CONSULTATION: 08/31/2019 PULMONARY CONSULTATION CONSULTING PHYSICIAN: Shree Pope M.D. REQUESTING PHYSICIAN: Lalo Meadows M.D. REASON FOR CONSULTATION: Pneumonia, left lung field. HISTORY OF PRESENT ILLNESS: This is a 68-year-old female with a history of malfunctioning Kock pouch. She has history of ulcerative colitis. She has previously undergone a proctocolectomy and has had laparotomies for bowel obstruction in the past as well. She underwent a Kock pouch endoscopy in February, which revealed stenosis. She underwent correction of the Kock pouch on 08/29/2019. She had a laparotomy with creation of new valve and stoma with preservation of Kock pouch. Postoperatively, the patient has been doing well without evidence of leukocytosis. She had transient hypotension and required PRBC transfusion. In the last 24 hours, the laboratories have been fairly normal except for mild hypernatremia. The patient denies shortness of breath. However, imaging studies obtained in the last 24 hours have shown left mid and lower lung infiltrates suspicious for pneumonia. She also has a PICC line placed. At this point, the patient states that she is feeling well. PAST HISTORY: As discussed above is notable for GERD, anemia, chronic back pain, ulcerative colitis, urolithiasis, hypercalcemia, hyperparathyroidism, Kock pouch placement, CKD, CAD, depression, and vitamin B deficiency. PREVIOUS SURGICAL HISTORY: Include carpal tunnel release, cataract, EGD and colonoscopy, right extracorporeal shockwave lithotripsy, parathyroidectomy, proctocolectomy, tonsillectomy, and previous lysis of adhesions. HOME MEDICATIONS: Aspirin, Lipitor, Wellbutrin, Celebrex, Celexa, Protonix, and Desyrel. FAMILY HISTORY: Noncontributory. REVIEW OF SYSTEMS: Denies any headaches, hematemesis, melena, hematochezia, night sweats, or weight loss. SOCIAL HISTORY: She admits to rare alcohol use. Denies tobacco or substance abuse. PHYSICAL EXAMINATION: GENERAL: Reveals an elderly female. HEENT: Unremarkable. LUNGS: Clear breath sounds bilaterally with decreased breath sounds left base. ABDOMEN: Soft. EXTREMITIES: There is no edema. Surgical sites were noted. DIAGNOSTIC DATA: EKG preoperative is unremarkable. Preop x-ray of the chest is also unremarkable. Preop 2D echo showed normal findings and a preop cardiac stress tests were negative. IMPRESSION: 1. Left lung atelectasis. 2. History of ulcerative colitis. 3. Status post laparotomy for Kock pouch revision. 4. Hyperlipidemia. 5. Depression. 6. History of CAD. DISCUSSION: We will institute pulmonary hygiene with breathing treatments and incentive spirometry. I have reviewed her medications and note that the patient is on Unasyn, which I will continue. This should be appropriate for concern about left lung pneumonia. She requires a pulmonary hygiene in the absence of fever or leukocytosis versus suspicion for postop pneumonia is low, however she clearly has atelectasis, function of hypoventilation and splinting, will intensify pulmonary hygiene and promote incentive spirometry. We will follow carefully. Shree Pope M.D. DR: DEEP JOB#: [id number] CC:
[2019-08-31] MEDS: Dyna-Hex 2% Top Sol 2oz TOPIC SCH (20:40)
[2019-08-31] MEDS: Iron Sucrose 100 MG in NS 55 ML IV SCH (20:40)
[2019-08-31] MEDS: TraZODone 100mg tab ORAL SCH (20:40)
[2019-08-31] MEDS: Fat Emulsion Iv 20% 216 ML in Tpn 1,584 ML IV SCH (21:07)
[2019-09-01] VITALS: BP 125/69
[2019-09-01] MEDS: Ampicillin/Sulbactam Sod 3 GM in NS 110 ML IVPB SCH ×4 (00:21→17:56)
[2019-09-01] MEDS: NovoLOG Insulin Flexpen SUBQ SCH ×5 (00:22→23:47)
[2019-09-01] MEDS: Acetaminophen 650mg/20.3ml ORAL PRN (00:59)
[2019-09-01] MEDS: Albuterol/Ipratropium 3ml neb HHN SCH ×3 (01:14→19:22)
[2019-09-01 04:00] VITALS: BP 119/66
[2019-09-01 05:10] LABS: BASOPHILS % (AUTO) 0.5 % (0.0-2.0); EOSINOPHILS % (AUTO) 2.6 % (0.0-3.0); HEMATOCRIT 31.1 % (37.0-47.0); HEMOGLOBIN 10.2 G/DL (12.0-16.0); LYMPHOCYTES % (AUTO) 12.5 % (20.0-45.0); MEAN CORPUSCULAR VOLUME 85 FL (80-99); MONOCYTES % (AUTO) 11.8 % (1.0-10.0); NEUTROPHILS % (AUTO) 72.6 % (45.0-75.0); PLATELET COUNT 147 K/UL (150-450); RED BLOOD COUNT 3.65 M/UL (4.20-5.40); RED CELL DISTRIBUTION WIDTH 14.2 % (11.6-14.8); WHITE BLOOD COUNT 6.7 K/UL (4.8-10.8)
[2019-09-01 05:38] LABS: ALANINE AMINOTRANSFERASE 18 U/L (12-78); ALBUMIN/GLOBULIN RATIO 0.7 (1.0-2.7); ALKALINE PHOSPHATASE 56 U/L (46-116); ANION GAP 4 mmol/L (5-15); ASPARTATE AMINO TRANSFERASE 12 U/L (15-37); BILIRUBIN,TOTAL 0.5 MG/DL (0.2-1.0); BLOOD UREA NITROGEN 7 mg/dL (7-18); CALCIUM 8.2 MG/DL (8.5-10.1); CARBON DIOXIDE 33 MMOL/L (21-32); CHLORIDE 111 MMOL/L (98-107); CREATININE 0.8 MG/DL (0.55-1.30); PHOSPHORUS 2.7 MG/DL (2.5-4.9); POTASSIUM 3.6 MMOL/L (3.5-5.1); SODIUM 148 MMOL/L (136-145)
[2019-09-01] MEDS: PCA shift volume MISC SCH ×2 (07:19→19:00)
[2019-09-01 08:00] VITALS: BP 117/64
--- NOTE | 2019-09-01 08:21 | Pulmonology Progress Note ---
Assessment/Plan Assessment/Plan ASSESSMENT Possible LLL pneumonia Atelectasis S/p Brantley pouch revision Multiple medical problems PLAN Intensify pulmonary regimen and hygiene IV Unasyn Mobilize and ambulate early Will follow Subjective Interval Events: Low grade fever Constitutional: Reports: no symptoms HEENT: Repors: no symptoms Respiratory: Reports: dry cough Cardiovascular: Reports: no symptoms Gastrointestinal/Abdominal: Reports: no symptoms Allergies: Coded Allergies: ADHESIVE TAPE (Verified Adverse Reaction, Intermediate, Rash, 08/27/19) CLEAR TAPE Objective Last 24 Hour Vital Signs Date Time Temp Pulse Resp B/P (MAP) Pulse Ox O2 Delivery O2 Flow Rate FiO2 09/01/19 08:00 98.3 85 18 117/64 (81) 98 86 09/01/19 07:29 83 17 98 Nasal Cannula 2.0 28 77 16 97 09/01/19 07:19 97 Nasal Cannula 2.0 28 09/01/19 04:00 98.5 86 16 119/66 (83) 97 86 09/01/19 04:00 86 16 97 09/01/19 01:45 99.8 09/01/19 01:29 99.8 09/01/19 01:16 90 17 99 Nasal Cannula 2.0 28 88 18 98 09/01/19 00:00 89 17 97 09/01/19 00:00 101.0 89 17 125/69 (87) 97 89 08/31/19 22:00 99.5 08/31/19 21:00 Nasal Cannula 2.0 08/31/19 20:00 95 20 98 08/31/19 20:00 100.6 95 20 146/83 (104) 98 95 08/31/19 19:23 97 Nasal Cannula 2.0 28 08/31/19 19:20 96 18 99 Nasal Cannula 2.0 28 94 18 97 08/31/19 16:00 87 17 95 08/31/19 16:00 98.7 87 17 125/71 (89) 95 08/31/19 13:16 80 20 96 Nasal Cannula 2.0 28 85 20 94 08/31/19 12:00 98.9 88 17 110/48 (68) 95 08/31/19 12:00 88 17 95 08/31/19 09:19 81 20 99 Nasal Cannula 2.0 28 82 20 95 08/31/19 09:16 95 Room Air 21 08/31/19 09:00 Nasal Cannula 2.0 Intake and Output 08/31/19 09/01/19 19:00 07:00 Intake Total 300 ml 1780 ml Output Total 1500 ml 2500 ml Balance -1200 ml -720 ml IV Total 100 ml 1580 ml Other 200 ml 200 ml Output Urine Total 1000 ml 2125 ml Other 500 ml 375 ml General Appearance: no acute distress HEENT: normocephalic Respiratory/Chest: chest wall non-tender, decreased breath sounds Cardiovascular: normal peripheral pulses, normal rate Abdomen: normal bowel sounds Laboratory Tests 09/01/19 04:50: White Blood Count 6.7, Red Blood Count 3.65L, Hemoglobin 10.2L, Hematocrit 31.1L , Mean Corpuscular Volume 85, Mean Corpuscular Hemoglobin 28.0, Mean Corpuscular Hemoglobin Concent 32.9, Red Cell Distribution Width 14.2, Platelet Count 147L, Mean Platelet Volume 5.7L, Neutrophils (%) (Auto) 72.6, Lymphocytes (%) (Auto) 12.5L, Monocytes (%) (Auto) 11.8H, Eosinophils (%) (Auto) 2.6, Basophils (%) (Auto) 0.5, Sodium Level 148H, Potassium Level 3.6, Chloride Level 111H, Carbon Dioxide Level 33H, Anion Gap 4L, Blood Urea Nitrogen 7, Creatinine 0.8, Estimat Glomerular Filtration Rate > 60, Glucose Level 107H, Calcium Level 8.2L, Phosphorus Level 2.7, Magnesium Level 1.9, Total Bilirubin 0.5, Aspartate Amino Transf (AST/SGOT) 12L, Alanine Aminotransferase (ALT/SGPT) 18, Alkaline Phosphatase 56, Total Protein 4.8L, Albumin 2.0L, Globulin 2.8, Albumin/Globulin Ratio 0.7L Current Medications Medications (Trade) Dose Ordered Sig/Jori Route PRN Reason Start Time Stop Time Status Last Admin Dose Admin Acetaminophen (Tylenol) 1,000 mg Q4H PRN ORAL temp>100.2 or headache 08/29/19 14:32 09/28/19 14:31 09/01/19 00:59 Albuterol/ Ipratropium (Albuterol/ Ipratropium) 3 ml Q6HRT HHN 08/31/19 13:00 09/05/19 12:59 09/01/19 07:19 Ampicillin Sodium/ Sulbactam Sodium 3 gm/Sodium Chloride 110 ml @ 220 mls/hr Q6HR IVPB 08/29/19 18:00 09/04/19 00:00 09/01/19 05:02 Bupropion HCl (Wellbutrin SR) 200 mg TWICE A DAY ORAL 08/29/19 18:00 09/26/19 17:59 08/31/19 18:03 Carisoprodol (Soma) 350 mg BEDTIME PRN ORAL NECK SPASM 08/29/19 14:32 09/28/19 14:31 Chlorhexidine Gluconate (Kathryn-Hex 2%) 1 applic DAILY@2000 TOPIC 08/29/19 20:00 09/26/19 19:59 08/31/19 20:40 Citalopram Hydrobromide (celeXA) 40 mg DAILY ORAL 08/30/19 09:00 09/27/19 08:59 08/30/19 09:22 Dextrose 1,000 ml @ 0 mls/hr Q24H PRN IV PN interrupted or unavailable 08/29/19 07:15 09/28/19 07:14 Dextrose (Dextrose 50%) 25 ml Q30M PRN IV Hypoglycemia 08/29/19 14:45 09/28/19 07:14 Dextrose (Dextrose 50%) 50 ml Q30M PRN IV Hypoglycemia 08/29/19 14:45 09/28/19 07:14 Dextrose/ Electrolytes 1,000 ml @ 25 mls/hr Q24H IV 08/31/19 10:00 09/30/19 09:59 08/31/19 11:14 Diphenhydramine HCl (Benadryl) 25 mg Q6H PRN IVP Itching/Pruritis 08/29/19 14:33 09/28/19 14:32 Fat Emulsion Intravenous 216 ml/Amino Acids/ Electrolytes/ Dextrose 1,800 ml @ 75 mls/hr Q24H IV 08/29/19 21:00 09/28/19 20:59 08/31/19 21:07 Fluticasone Propionate (Flonase) 1 spray TWICE A DAY NASAL 08/29/19 18:00 09/26/19 17:59 08/31/19 18:35 Hydromorphone HCl 30 ml @ 0 mls/hr Q24H PRN IV For Pain 08/30/19 16:30 09/01/19 16:29 Insulin Aspart (NovoLOG) Q6HR SUBQ 08/30/19 00:00 09/29/19 00:00 09/01/19 06:08 Iron Sucrose 100 mg/Sodium Chloride 60 ml @ 240 mls/hr BEDTIME IV 08/29/19 21:00 09/01/19 21:14 08/31/19 20:40 Lorazepam (Ativan) 1 mg Q4H PRN SL Muscle Spasm 08/29/19 14:33 09/05/19 14:32 Metronidazole 100 ml @ 100 mls/hr Q6HR IVPB 08/29/19 18:00 09/04/19 00:00 09/01/19 05:32 Miscellaneous Medication (ORTHO ASSISTANT Rate Change) 1 ea DAILY PRN MISC rate change 08/30/19 09:00 09/01/19 08:59 Miscellaneous Medication (ORTHO ASSISTANT shift volume) 1 ea Q12HR@0700,1900 MISC 08/30/19 19:00 09/01/19 18:59 09/01/19 07:19 Naloxone HCl (Narcan) 0.1 mg Q1M PRN IVP RR<10/min OR SBP<90 mmHg 08/29/19 14:33 09/28/19 14:32 Ondansetron HCl (Zofran) 4 mg Q4H PRN IVP Nausea & Vomiting 08/29/19 14:34 09/28/19 14:33 08/30/19 17:29 Pantoprazole (Protonix) 40 mg DAILY IVP 08/30/19 09:00 09/28/19 08:59 08/31/19 09:56 Phytonadione (Vitamin K) 10 mg ONCE A WEEK SUBQ 08/30/19 09:00 09/29/19 08:59 08/30/19 10:54 Trazodone HCl (Desyrel) 200 mg BEDTIME ORAL 08/29/19 21:00 09/26/19 20:59 08/31/19 20:40 Shree Pope MD Sep 01, 2019 08:21
[2019-09-01] MEDS ORDERED: NS 275ml ONE (08:33)
[2019-09-01] MEDS ORDERED: NS Irrig 1000ml ONE (08:33)
[2019-09-01] MEDS ORDERED: Tubing IV Secondary IV ONE (08:33)
[2019-09-01] MEDS ORDERED: Rate Change PCA 1 Each MISC PRN (09:00)
--- NOTE | 2019-09-01 09:06 | General Progress Note ---
Progress Note Progress Note T101 spike again. Feels okay. Limited ambulation despite PT mobility protocol Abdomen soft, scant distention, incisional tenderness, incision clean ,stoma pink Urine 3125 Gastrostomy 240 Kock pouch ileo 540 WBC 6700 Hgb stable 10.2 Platelets up 147,000 Na 148 K 3.6 Phos and Mg- wnl Imp: Fever without leukocytosis ? infiltrate vs atelectasis - appreciate Dr. Pope consultation slowly resolving ileus Plan; continue npo, TPN, Busch, Unasyn and flagyl Mobilize Lalo Meadows MD Sep 01, 2019 09:06
[2019-09-01] MEDS: BuPROPion SR 100mg tab ORAL SCH ×2 (09:09→17:54)
[2019-09-01] MEDS: Pantoprazole Inj IVP SCH (09:09)
[2019-09-01] MEDS: Flonase Nasal Inhaler 16gm NASAL SCH ×2 (09:09→18:00)
[2019-09-01] MEDS: Citalopram Hydrobromide 10mg Tab ORAL SCH (09:09)
[2019-09-01] MEDS ORDERED: PCA HYDROmorphone 1mg/ml 30 ML IV PRN (09:30)
[2019-09-01] MEDS: D5W IV SCH ×2 (10:44)
[2019-09-01] MEDS: KCL IV SCH ×2 (10:44)
[2019-09-01 12:00] VITALS: BP 115/84
[2019-09-01 16:00] VITALS: BP 115/64
[2019-09-01 20:00] VITALS: BP 131/78
[2019-09-01] MEDS: TraZODone 100mg tab ORAL SCH (20:33)
[2019-09-01] MEDS: Dyna-Hex 2% Top Sol 2oz TOPIC SCH (20:33)
[2019-09-01] MEDS: Iron Sucrose 100 MG in NS 55 ML IV SCH (20:34)
[2019-09-01] MEDS: Fat Emulsion Iv 20% 216 ML in Tpn 1,584 ML IV SCH (20:48)
[2019-09-02] VITALS: BP 120/76
[2019-09-02] MEDS: Ampicillin/Sulbactam Sod 3 GM in NS 110 ML IVPB SCH ×4 (00:46→18:00)
[2019-09-02] MEDS: Albuterol/Ipratropium 3ml neb HHN SCH ×4 (01:22→20:21)
[2019-09-02 04:00] VITALS: BP 111/67
[2019-09-02 05:51] LABS: BASOPHILS % (AUTO) 0.7 % (0.0-2.0); HEMOGLOBIN 11.1 G/DL (12.0-16.0); LYMPHOCYTES % (AUTO) 10.5 % (20.0-45.0); MEAN CORPUSCULAR VOLUME 86 FL (80-99); MONOCYTES % (AUTO) 14.3 % (1.0-10.0); NEUTROPHILS % (AUTO) 71.5 % (45.0-75.0); PLATELET COUNT 178 K/UL (150-450); RED BLOOD COUNT 3.96 M/UL (4.20-5.40); RED CELL DISTRIBUTION WIDTH 14.3 % (11.6-14.8)
[2019-09-02] MEDS: NovoLOG Insulin Flexpen SUBQ SCH ×3 (06:00→18:00)
[2019-09-02] MEDS ORDERED: Ketorolac 30mg Inj IV SCH (06:30)
[2019-09-02 06:46] LABS: ALANINE AMINOTRANSFERASE 15 U/L (12-78); ALBUMIN/GLOBULIN RATIO 0.6 (1.0-2.7); ALKALINE PHOSPHATASE 64 U/L (46-116); ANION GAP 4 mmol/L (5-15); ASPARTATE AMINO TRANSFERASE 14 U/L (15-37); BILIRUBIN,TOTAL 0.5 MG/DL (0.2-1.0); BLOOD UREA NITROGEN 9 mg/dL (7-18); CALCIUM 8.5 MG/DL (8.5-10.1); CARBON DIOXIDE 31 MMOL/L (21-32); CHLORIDE 108 MMOL/L (98-107); CREATININE 0.8 MG/DL (0.55-1.30); POTASSIUM 4.2 MMOL/L (3.5-5.1); SODIUM 143 MMOL/L (136-145)
[2019-09-02] MEDS: PCA shift volume MISC SCH ×2 (07:27→19:00)
--- NOTE | 2019-09-02 07:41 | Pulmonology Progress Note ---
Assessment/Plan Assessment/Plan ASSESSMENT Possible LLL pneumonia vs atelectasis S/p Brantley pouch revision Ileus Multiple medical problems PLAN Continue pulmonary regimen and hygiene IV Unasyn Mobilize and ambulate early Will follow Subjective Interval Events: Afebrile last 24 hrs. No leucocytosis Constitutional: Reports: no symptoms HEENT: Repors: no symptoms Respiratory: Reports: no symptoms Gastrointestinal/Abdominal: Reports: no symptoms Genitourinary: Reports: no symptoms Allergies: Coded Allergies: ADHESIVE TAPE (Verified Adverse Reaction, Intermediate, Rash, 08/27/19) CLEAR TAPE Objective Last 24 Hour Vital Signs Date Time Temp Pulse Resp B/P (MAP) Pulse Ox O2 Delivery O2 Flow Rate FiO2 09/02/19 07:22 85 18 98 Nasal Cannula 2.0 28 80 18 97 09/02/19 07:22 97 Nasal Cannula 2.0 28 09/02/19 04:00 97.8 82 18 111/67 (82) 93 09/02/19 04:00 18 09/02/19 01:23 83 18 99 Nasal Cannula 2.0 28 84 18 95 09/02/19 00:00 98.0 88 18 120/76 (91) 96 09/02/19 00:00 18 09/01/19 21:00 Nasal Cannula 2.0 Nasal Cannula 2.0 09/01/19 20:00 98.2 91 17 131/78 (95) 97 09/01/19 20:00 18 09/01/19 19:25 97 Nasal Cannula 2.0 28 09/01/19 19:23 89 18 100 Nasal Cannula 2.0 28 87 18 97 09/01/19 16:00 89 18 98 09/01/19 16:00 98.3 89 18 115/64 (81) 98 09/01/19 12:26 86 16 96 Nasal Cannula 2.0 28 84 15 97 09/01/19 12:00 98.6 85 16 115/84 (94) 96 09/01/19 09:00 Nasal Cannula 2.0 Nasal Cannula 2.0 09/01/19 09:00 Nasal Cannula 2.0 09/01/19 08:00 98.3 86 18 117/64 (81) 98 Intake and Output 09/01/19 09/02/19 19:00 07:00 Intake Total 1470 ml 900 ml Output Total 1170 ml 1960 ml Balance 300 ml -1060 ml IV Total 1470 ml 900 ml Output Urine Total 1000 ml 1900 ml Other 170 ml 60 ml General Appearance: no acute distress HEENT: normocephalic Respiratory/Chest: chest wall non-tender, decreased breath sounds Cardiovascular: normal peripheral pulses, normal rate Abdomen: soft, non tender Laboratory Tests 09/02/19 04:45: White Blood Count 7.0, Red Blood Count 3.96L, Hemoglobin 11.1L, Hematocrit 34.0L , Mean Corpuscular Volume 86, Mean Corpuscular Hemoglobin 28.2, Mean Corpuscular Hemoglobin Concent 32.8, Red Cell Distribution Width 14.3, Platelet Count 178, Mean Platelet Volume 6.3L, Neutrophils (%) (Auto) 71.5, Lymphocytes ( %) (Auto) 10.5L, Monocytes (%) (Auto) 14.3H, Eosinophils (%) (Auto) 3.0, Basophils (%) (Auto) 0.7, Sodium Level 143, Potassium Level 4.2, Chloride Level 108H, Carbon Dioxide Level 31, Anion Gap 4L, Blood Urea Nitrogen 9, Creatinine 0.8, Estimat Glomerular Filtration Rate > 60, Glucose Level 118H, Calcium Level 8.5, Total Bilirubin 0.5, Aspartate Amino Transf (AST/SGOT) 14L, Alanine Aminotransferase (ALT/SGPT) 15, Alkaline Phosphatase 64, Total Protein 5.2L, Albumin 2.0L, Globulin 3.2, Albumin/Globulin Ratio 0.6L Current Medications Medications (Trade) Dose Ordered Sig/Jori Route PRN Reason Start Time Stop Time Status Last Admin Dose Admin Acetaminophen (Tylenol) 1,000 mg Q4H PRN ORAL temp>100.2 or headache 08/29/19 14:32 09/28/19 14:31 09/01/19 00:59 Albuterol/ Ipratropium (Albuterol/ Ipratropium) 3 ml Q6HRT HHN 08/31/19 13:00 09/05/19 12:59 09/02/19 07:20 Ampicillin Sodium/ Sulbactam Sodium 3 gm/Sodium Chloride 110 ml @ 220 mls/hr Q6HR IVPB 08/29/19 18:00 09/04/19 00:00 09/02/19 05:19 Bupropion HCl (Wellbutrin SR) 200 mg TWICE A DAY ORAL 08/29/19 18:00 09/26/19 17:59 09/01/19 17:54 Carisoprodol (Soma) 350 mg BEDTIME PRN ORAL NECK SPASM 08/29/19 14:32 09/28/19 14:31 Chlorhexidine Gluconate (Kathryn-Hex 2%) 1 applic DAILY@2000 TOPIC 08/29/19 20:00 09/26/19 19:59 09/01/19 20:33 Citalopram Hydrobromide (celeXA) 40 mg DAILY ORAL 08/30/19 09:00 09/27/19 08:59 09/01/19 09:09 Dextrose 1,000 ml @ 0 mls/hr Q24H PRN IV PN interrupted or unavailable 08/29/19 07:15 09/28/19 07:14 Dextrose (Dextrose 50%) 25 ml Q30M PRN IV Hypoglycemia 08/29/19 14:45 09/28/19 07:14 Dextrose (Dextrose 50%) 50 ml Q30M PRN IV Hypoglycemia 08/29/19 14:45 09/28/19 07:14 Diphenhydramine HCl (Benadryl) 25 mg Q6H PRN IVP Itching/Pruritis 08/29/19 14:33 09/28/19 14:32 Fat Emulsion Intravenous 216 ml/Amino Acids/ Electrolytes/ Dextrose 1,800 ml @ 75 mls/hr Q24H IV 08/29/19 21:00 09/28/19 20:59 09/01/19 20:48 Fluticasone Propionate (Flonase) 1 spray TWICE A DAY NASAL 08/29/19 18:00 09/26/19 17:59 09/01/19 18:00 Hydromorphone HCl 30 ml @ 0 mls/hr Q24H PRN IV For Pain 09/01/19 09:30 09/03/19 09:29 09/01/19 19:04 Insulin Aspart (NovoLOG) Q6HR SUBQ 08/30/19 00:00 09/29/19 00:00 09/01/19 12:08 Ketorolac Tromethamine (Toradol 30mg) 15 mg ONCE IV 09/02/19 06:30 09/02/19 08:00 09/02/19 06:48 Lorazepam (Ativan) 1 mg Q4H PRN SL Muscle Spasm 08/29/19 14:33 09/05/19 14:32 09/02/19 05:25 Metronidazole 100 ml @ 100 mls/hr Q6HR IVPB 08/29/19 18:00 09/04/19 00:00 09/02/19 05:18 Miscellaneous Medication (CHOIR MEMBER Rate Change) 1 ea DAILY PRN MISC rate change 09/01/19 09:00 09/03/19 08:59 Miscellaneous Medication (CHOIR MEMBER shift volume) 1 ea Q12HR@0700,1900 MISC 09/01/19 19:00 09/03/19 18:59 09/02/19 07:27 Naloxone HCl (Narcan) 0.1 mg Q1M PRN IVP RR<10/min OR SBP<90 mmHg 08/29/19 14:33 09/28/19 14:32 Ondansetron HCl (Zofran) 4 mg Q4H PRN IVP Nausea & Vomiting 08/29/19 14:34 09/28/19 14:33 08/30/19 17:29 Pantoprazole (Protonix) 40 mg DAILY IVP 08/30/19 09:00 09/28/19 08:59 09/01/19 09:09 Phytonadione (Vitamin K) 10 mg ONCE A WEEK SUBQ 08/30/19 09:00 09/29/19 08:59 08/30/19 10:54 Potassium Chloride 40 meq/ Dextrose 1,020 ml @ 25 mls/hr Q24H IV 09/01/19 10:00 10/01/19 09:59 09/01/19 10:44 Trazodone HCl (Desyrel) 200 mg BEDTIME ORAL 08/29/19 21:00 09/26/19 20:59 09/01/19 20:33 Shree Pope MD Sep 02, 2019 07:41
[2019-09-02 08:00] VITALS: BP 104/64
[2019-09-02] MEDS: Flonase Nasal Inhaler 16gm NASAL SCH ×2 (09:00→17:44)
[2019-09-02] MEDS: BuPROPion SR 100mg tab ORAL SCH ×2 (09:28→17:44)
[2019-09-02] MEDS: Citalopram Hydrobromide 10mg Tab ORAL SCH (09:28)
[2019-09-02] MEDS ORDERED: Rate Change PCA 1 Each MISC PRN (09:30)
[2019-09-02] MEDS ORDERED: PCA HYDROmorphone 1mg/ml 30 ML IV PRN (09:30)
--- NOTE | 2019-09-02 09:30 | General Progress Note ---
Progress Note Progress Note Afebrile x 36 hours. Now with productive cough Abdomen soft, incision clean, stoma pink Urine 2900 Gastrostomy nil Kock pouch ileo 230 Hgb up 11.1 Platelets up 178,000 Albumin 2.0 Imp: Ileus pneumonitis vs atelectasis, improving Plan: continue npo, TPN d/c Flagyl - continue Unasyn will d/c urinary Busch in early AM tomorrow increase ambulation Lalo Meadows MD Sep 02, 2019 09:30
[2019-09-02] MEDS: Pantoprazole Inj IVP SCH (09:39)
[2019-09-02] MEDS: D5W IV SCH ×2 (10:37)
[2019-09-02] MEDS: KCL IV SCH ×2 (10:37)
[2019-09-02 12:00] VITALS: BP 107/65
[2019-09-02 16:00] VITALS: BP 106/66
[2019-09-02 20:00] VITALS: BP_SYST 112; BP_SYST 118; BP_DIAS 62; BP_DIAS 76
[2019-09-02] MEDS: Fat Emulsion Iv 20% 216 ML in Tpn 1,584 ML IV SCH (21:08)
[2019-09-02] MEDS: Dyna-Hex 2% Top Sol 2oz TOPIC SCH (21:08)
[2019-09-02] MEDS: TraZODone 100mg tab ORAL SCH (21:09)
[2019-09-03] VITALS: BP_SYST 112; BP_SYST 117; BP_DIAS 61; BP_DIAS 71
[2019-09-03] MEDS: Ampicillin/Sulbactam Sod 3 GM in NS 110 ML IVPB SCH ×5 (00:58→17:28)
[2019-09-03] MEDS: Albuterol/Ipratropium 3ml neb HHN SCH ×4 (01:06→20:19)
[2019-09-03] MEDS: D5W IV SCH ×2 (01:15)
[2019-09-03] MEDS: KCL IV SCH ×2 (01:15)
[2019-09-03 04:00] VITALS: BP_SYST 109; BP_SYST 122; BP_DIAS 67; BP_DIAS 69
[2019-09-03] MEDS: NovoLOG Insulin Flexpen SUBQ SCH ×4 (05:59→16:56)
[2019-09-03 06:45] LABS: BASOPHILS % (AUTO) 0.5 % (0.0-2.0); EOSINOPHILS % (AUTO) 3.2 % (0.0-3.0); HEMATOCRIT 38.1 % (37.0-47.0); HEMOGLOBIN 12.5 G/DL (12.0-16.0); LYMPHOCYTES % (AUTO) 11.6 % (20.0-45.0); MEAN CORPUSCULAR VOLUME 87 FL (80-99); MONOCYTES % (AUTO) 12.2 % (1.0-10.0); NEUTROPHILS % (AUTO) 72.5 % (45.0-75.0); PLATELET COUNT 185 K/UL (150-450); RED BLOOD COUNT 4.37 M/UL (4.20-5.40); RED CELL DISTRIBUTION WIDTH 15.2 % (11.6-14.8)
[2019-09-03] MEDS: PCA shift volume MISC SCH ×2 (07:16→19:00)
[2019-09-03 07:26] LABS: ALANINE AMINOTRANSFERASE 16 U/L (12-78); ALBUMIN 2.2 G/DL (3.4-5.0); ALBUMIN/GLOBULIN RATIO 0.6 (1.0-2.7); ALKALINE PHOSPHATASE 65 U/L (46-116); ANION GAP 4 mmol/L (5-15); ASPARTATE AMINO TRANSFERASE 16 U/L (15-37); BILIRUBIN,TOTAL 0.5 MG/DL (0.2-1.0); BLOOD UREA NITROGEN 12 mg/dL (7-18); CALCIUM 8.9 MG/DL (8.5-10.1); CARBON DIOXIDE 31 MMOL/L (21-32); CHLORIDE 107 MMOL/L (98-107); CREATININE 0.8 MG/DL (0.55-1.30); PHOSPHORUS 3.3 MG/DL (2.5-4.9); POTASSIUM 4.7 MMOL/L (3.5-5.1); SODIUM 142 MMOL/L (136-145)
[2019-09-03 08:00] VITALS: BP 111/59
--- NOTE | 2019-09-03 08:15 | General Progress Note ---
Progress Note Progress Note AVSS Ambulated 3x yesterday. Still using HOST/HOSTESS RESTAURANT and still with O2 by nasal cannula Abdomen soft, healing nicely Urine 3200 Gastrostomy nil Kock pouch ileo 250 enteric WBC 8000 Hgb 12.5 Mg 1.7 Imp. slowly resolving ileus Plan: D/C urinary decker continue NPO and TPN and Unasyn Mg infusion Will d/c HOST/HOSTESS RESTAURANT in AM tomorrow Lalo Meadows MD Sep 03, 2019 08:15
[2019-09-03] MEDS: Flonase Nasal Inhaler 16gm NASAL SCH ×2 (08:54→17:28)
[2019-09-03] MEDS: BuPROPion SR 100mg tab ORAL SCH ×2 (08:55→17:28)
[2019-09-03] MEDS: Pantoprazole Inj IVP SCH (08:55)
[2019-09-03] MEDS: Citalopram Hydrobromide 10mg Tab ORAL SCH (08:55)
--- NOTE | 2019-09-03 10:14 | Pulmonology Progress Note ---
Assessment/Plan Assessment/Plan ASSESSMENT Possible LLL pneumonia vs atelectasis S/p Brantley pouch revision Ileus Multiple medical problems PLAN Continue pulmonary regimen and hygiene IV Unasyn Mobilize and ambulate early Will follow Afebrile now; no leucocytosis Subjective Interval Events: None new Constitutional: Reports: no symptoms HEENT: Repors: no symptoms Respiratory: Reports: no symptoms Cardiovascular: Reports: no symptoms Gastrointestinal/Abdominal: Reports: no symptoms Allergies: Coded Allergies: ADHESIVE TAPE (Verified Adverse Reaction, Intermediate, Rash, 08/27/19) CLEAR TAPE Objective Last 24 Hour Vital Signs Date Time Temp Pulse Resp B/P (MAP) Pulse Ox O2 Delivery O2 Flow Rate FiO2 09/03/19 08:27 Nasal Cannula 2.0 Nasal Cannula 2.0 09/03/19 08:24 100 Nasal Cannula 2.0 28 09/03/19 08:24 89 18 100 Nasal Cannula 2.0 28 88 18 100 09/03/19 08:00 98.4 82 18 111/59 (76) 95 09/03/19 04:00 98.1 81 18 122/69 (86) 97 09/03/19 01:05 88 16 93 Nasal Cannula 2.0 28 91 20 97 09/03/19 00:00 98.3 87 18 112/71 (85) 96 09/02/19 21:00 Nasal Cannula 2.0 Nasal Cannula 2.0 09/02/19 20:21 96 Nasal Cannula 2.0 28 09/02/19 20:21 82 18 95 Nasal Cannula 2.0 28 81 16 96 09/02/19 20:00 98.1 84 17 118/76 (90) 95 09/02/19 16:00 87 17 98 09/02/19 16:00 98.9 81 18 106/66 (79) 98 09/02/19 13:59 88 18 99 Nasal Cannula 2.0 28 82 20 99 09/02/19 12:00 98.6 59 18 107/65 (79) 95 09/02/19 12:00 59 18 95 Intake and Output 09/02/19 09/03/19 19:00 07:00 Intake Total 1505 ml 975 ml Output Total 1375 ml 2060 ml Balance 130 ml -1085 ml Intake Oral 60 ml Free Water 80 ml IV Total 1210 ml 975 ml Tube Feeding 75 ml Other 80 ml Output Urine Total 1200 ml 2000 ml Stool Total 170 ml Gastric Drainage Total 5 ml Other 60 ml General Appearance: no acute distress HEENT: normocephalic Respiratory/Chest: chest wall non-tender, lungs clear Cardiovascular: normal peripheral pulses, normal rate Laboratory Tests 09/03/19 04:50: White Blood Count 8.0, Red Blood Count 4.37, Hemoglobin 12.5, Hematocrit 38.1, Mean Corpuscular Volume 87, Mean Corpuscular Hemoglobin 28.5, Mean Corpuscular Hemoglobin Concent 32.7, Red Cell Distribution Width 15.2H, Platelet Count 185, Mean Platelet Volume 6.5, Neutrophils (%) (Auto) 72.5, Lymphocytes (%) (Auto) 11.6L, Monocytes (%) (Auto) 12.2H, Eosinophils (%) (Auto) 3.2H, Basophils (%) ( Auto) 0.5, Sodium Level 142, Potassium Level 4.7, Chloride Level 107, Carbon Dioxide Level 31, Anion Gap 4L, Blood Urea Nitrogen 12, Creatinine 0.8, Estimat Glomerular Filtration Rate > 60, Glucose Level 109H, Calcium Level 8.9, Phosphorus Level 3.3, Magnesium Level 1.7L, Total Bilirubin 0.5, Aspartate Amino Transf (AST/SGOT) 16, Alanine Aminotransferase (ALT/SGPT) 16, Alkaline Phosphatase 65, Total Protein 5.8L, Albumin 2.2L, Globulin 3.6, Albumin/ Globulin Ratio 0.6L Current Medications Medications (Trade) Dose Ordered Sig/Jori Route PRN Reason Start Time Stop Time Status Last Admin Dose Admin Acetaminophen (Tylenol) 1,000 mg Q4H PRN ORAL temp>100.2 or headache 08/29/19 14:32 09/28/19 14:31 09/01/19 00:59 Albuterol/ Ipratropium (Albuterol/ Ipratropium) 3 ml Q6HRT HHN 08/31/19 13:00 09/05/19 12:59 09/03/19 08:24 Ampicillin Sodium/ Sulbactam Sodium 3 gm/Sodium Chloride 110 ml @ 220 mls/hr Q6HR IVPB 09/03/19 12:00 09/08/19 18:00 Bupropion HCl (Wellbutrin SR) 200 mg TWICE A DAY ORAL 08/29/19 18:00 09/26/19 17:59 09/03/19 08:55 Carisoprodol (Soma) 350 mg BEDTIME PRN ORAL NECK SPASM 08/29/19 14:32 09/28/19 14:31 Chlorhexidine Gluconate (Kathryn-Hex 2%) 1 applic DAILY@2000 TOPIC 08/29/19 20:00 09/26/19 19:59 09/02/19 21:08 Citalopram Hydrobromide (celeXA) 40 mg DAILY ORAL 08/30/19 09:00 09/27/19 08:59 09/03/19 08:55 Dextrose 1,000 ml @ 0 mls/hr Q24H PRN IV PN interrupted or unavailable 08/29/19 07:15 09/28/19 07:14 Dextrose (Dextrose 50%) 25 ml Q30M PRN IV Hypoglycemia 08/29/19 14:45 09/28/19 07:14 Dextrose (Dextrose 50%) 50 ml Q30M PRN IV Hypoglycemia 08/29/19 14:45 09/28/19 07:14 Diphenhydramine HCl (Benadryl) 25 mg Q6H PRN IVP Itching/Pruritis 08/29/19 14:33 09/28/19 14:32 Fat Emulsion Intravenous 216 ml/Amino Acids/ Electrolytes/ Dextrose 1,800 ml @ 75 mls/hr Q24H IV 08/29/19 21:00 09/28/19 20:59 09/02/19 21:08 Fluticasone Propionate (Flonase) 1 spray TWICE A DAY NASAL 08/29/19 18:00 09/26/19 17:59 09/03/19 08:54 Hydromorphone HCl 30 ml @ 0 mls/hr Q24H PRN IV For Pain 09/02/19 09:30 09/04/19 09:29 Insulin Aspart (NovoLOG) Q6HR SUBQ 08/30/19 00:00 09/29/19 00:00 09/01/19 12:08 Lorazepam (Ativan) 1 mg Q4H PRN SL Muscle Spasm 08/29/19 14:33 09/05/19 14:32 09/02/19 05:25 Magnesium Sulfate 100 ml @ 100 mls/hr Q1H IVPB 09/03/19 08:30 09/03/19 12:29 09/03/19 09:59 Miscellaneous Medication (3D DESIGNER Rate Change) 1 ea DAILY PRN MISC rate change 09/02/19 09:30 09/04/19 09:29 Miscellaneous Medication (3D DESIGNER shift volume) 1 ea Q12HR@0700,1900 MISC 09/02/19 19:00 09/04/19 18:59 09/03/19 07:16 Naloxone HCl (Narcan) 0.1 mg Q1M PRN IVP RR<10/min OR SBP<90 mmHg 08/29/19 14:33 09/28/19 14:32 Ondansetron HCl (Zofran) 4 mg Q4H PRN IVP Nausea & Vomiting 08/29/19 14:34 09/28/19 14:33 08/30/19 17:29 Pantoprazole (Protonix) 40 mg DAILY IVP 08/30/19 09:00 09/28/19 08:59 09/03/19 08:55 Phytonadione (Vitamin K) 10 mg ONCE A WEEK SUBQ 08/30/19 09:00 09/29/19 08:59 08/30/19 10:54 Potassium Chloride 40 meq/ Dextrose 1,020 ml @ 25 mls/hr Q24H IV 09/01/19 10:00 10/01/19 09:59 09/03/19 01:15 Trazodone HCl (Desyrel) 200 mg BEDTIME ORAL 08/29/19 21:00 09/26/19 20:59 09/02/19 21:09 Shree Pope MD Sep 03, 2019 10:14
[2019-09-03 12:00] VITALS: BP 121/83
[2019-09-03 16:00] VITALS: BP 129/71
[2019-09-03 20:00] VITALS: BP 122/81
[2019-09-03] MEDS: Dyna-Hex 2% Top Sol 2oz TOPIC SCH (20:52)
[2019-09-03] MEDS: Fat Emulsion Iv 20% 216 ML in Tpn 1,584 ML IV SCH (20:54)
[2019-09-03] MEDS: TraZODone 100mg tab ORAL SCH (21:11)
[2019-09-04] VITALS: BP 121/68
[2019-09-04] MEDS: Ampicillin/Sulbactam Sod 3 GM in NS 110 ML IVPB SCH ×2 (00:16→06:02)
[2019-09-04] MEDS: Albuterol/Ipratropium 3ml neb HHN SCH ×4 (01:36→19:17)
[2019-09-04] MEDS ORDERED: Unasyn 1.5gm Vial ONE (02:54)
[2019-09-04 04:00] VITALS: BP 108/61
[2019-09-04 05:57] LABS: BASOPHILS % (AUTO) 0.6 % (0.0-2.0); EOSINOPHILS % (AUTO) 3.6 % (0.0-3.0); HEMOGLOBIN 11.4 G/DL (12.0-16.0); LYMPHOCYTES % (AUTO) 11.9 % (20.0-45.0); MEAN CORPUSCULAR VOLUME 88 FL (80-99); MONOCYTES % (AUTO) 11.4 % (1.0-10.0); NEUTROPHILS % (AUTO) 72.5 % (45.0-75.0); PLATELET COUNT 206 K/UL (150-450); RED BLOOD COUNT 3.98 M/UL (4.20-5.40); RED CELL DISTRIBUTION WIDTH 15.5 % (11.6-14.8); WHITE BLOOD COUNT 7.5 K/UL (4.8-10.8)
[2019-09-04] MEDS: NovoLOG Insulin Flexpen SUBQ SCH ×4 (06:00→16:47)
[2019-09-04 06:20] LABS: ALANINE AMINOTRANSFERASE 15 U/L (12-78); ALBUMIN 2.2 G/DL (3.4-5.0); ALBUMIN/GLOBULIN RATIO 0.6 (1.0-2.7); ALKALINE PHOSPHATASE 67 U/L (46-116); ANION GAP 2 mmol/L (5-15); ASPARTATE AMINO TRANSFERASE 16 U/L (15-37); BILIRUBIN,TOTAL 0.4 MG/DL (0.2-1.0); BLOOD UREA NITROGEN 14 mg/dL (7-18); CALCIUM 8.6 MG/DL (8.5-10.1); CARBON DIOXIDE 32 MMOL/L (21-32); CHLORIDE 104 MMOL/L (98-107); CREATININE 0.9 MG/DL (0.55-1.30); POTASSIUM 4.4 MMOL/L (3.5-5.1); SODIUM 138 MMOL/L (136-145)
[2019-09-04] MEDS: PCA shift volume MISC SCH (07:16)
--- NOTE | 2019-09-04 07:55 | Pulmonology Progress Note ---
Assessment/Plan Assessment/Plan ASSESSMENT Possible LLL pneumonia vs atelectasis S/p Brantley pouch revision Ileus Multiple medical problems PLAN Continue pulmonary regimen and hygiene IV Unasyn Mobilize and ambulate early Will follow Afebrile now however Tmax 99.5 yesterday No leucocytosis Subjective Interval Events: None new Constitutional: Reports: no symptoms HEENT: Repors: no symptoms Respiratory: Reports: no symptoms Cardiovascular: Reports: no symptoms Gastrointestinal/Abdominal: Reports: no symptoms Genitourinary: Reports: no symptoms Allergies: Coded Allergies: ADHESIVE TAPE (Verified Adverse Reaction, Intermediate, Rash, 08/27/19) CLEAR TAPE Objective Last 24 Hour Vital Signs Date Time Temp Pulse Resp B/P (MAP) Pulse Ox O2 Delivery O2 Flow Rate FiO2 09/04/19 04:00 98.5 89 18 108/61 (77) 97 09/04/19 01:37 83 18 100 Nasal Cannula 2.0 28 79 18 98 09/04/19 00:00 99.5 81 18 121/68 (85) 95 09/03/19 21:00 Nasal Cannula 2.0 Nasal Cannula 2.0 09/03/19 20:01 85 18 99 Nasal Cannula 2.0 28 81 18 99 09/03/19 20:01 100 Nasal Cannula 2.0 28 09/03/19 20:00 97.9 87 20 122/81 (95) 99 09/03/19 16:00 98.8 90 20 129/71 (90) 99 09/03/19 13:12 92 18 100 Nasal Cannula 2.0 28 85 18 98 09/03/19 12:00 98.2 91 18 121/83 (96) 98 09/03/19 08:27 Nasal Cannula 2.0 Nasal Cannula 2.0 09/03/19 08:24 100 Nasal Cannula 2.0 28 09/03/19 08:24 89 18 100 Nasal Cannula 2.0 28 88 18 100 09/03/19 08:00 98.4 82 18 111/59 (76) 95 Intake and Output 09/03/19 09/04/19 19:00 07:00 Intake Total 1760 ml 1345 ml Output Total 2000 ml 1920 ml Balance -240 ml -575 ml IV Total 1760 ml 1345 ml Output Urine Total 2000 ml 1820 ml Other 100 ml # Voids 7 7 General Appearance: no acute distress HEENT: normocephalic Respiratory/Chest: chest wall non-tender, lungs clear Cardiovascular: normal peripheral pulses, normal rate Laboratory Tests 09/04/19 04:52: White Blood Count 7.5, Red Blood Count 3.98L, Hemoglobin 11.4L, Hematocrit 35.0L , Mean Corpuscular Volume 88, Mean Corpuscular Hemoglobin 28.6, Mean Corpuscular Hemoglobin Concent 32.6, Red Cell Distribution Width 15.5H, Platelet Count 206, Mean Platelet Volume 7.1, Neutrophils (%) (Auto) 72.5, Lymphocytes (%) (Auto) 11.9L, Monocytes (%) (Auto) 11.4H, Eosinophils (%) (Auto ) 3.6H, Basophils (%) (Auto) 0.6, Sodium Level 138, Potassium Level 4.4, Chloride Level 104, Carbon Dioxide Level 32, Anion Gap 2L, Blood Urea Nitrogen 14, Creatinine 0.9, Estimat Glomerular Filtration Rate > 60, Glucose Level 106, Calcium Level 8.6, Magnesium Level 2.0, Total Bilirubin 0.4, Aspartate Amino Transf (AST/SGOT) 16, Alanine Aminotransferase (ALT/SGPT) 15, Alkaline Phosphatase 67, Total Protein 5.9L, Albumin 2.2L, Globulin 3.7, Albumin/ Globulin Ratio 0.6L Current Medications Medications (Trade) Dose Ordered Sig/Jori Route PRN Reason Start Time Stop Time Status Last Admin Dose Admin Acetaminophen (Tylenol) 1,000 mg Q4H PRN ORAL temp>100.2 or headache 08/29/19 14:32 09/28/19 14:31 09/01/19 00:59 Albuterol/ Ipratropium (Albuterol/ Ipratropium) 3 ml Q6HRT HHN 08/31/19 13:00 09/05/19 12:59 09/04/19 01:36 Ampicillin Sodium/ Sulbactam Sodium 3 gm/Sodium Chloride 110 ml @ 220 mls/hr Q6HR IVPB 09/03/19 12:00 09/08/19 18:00 09/04/19 06:02 Bupropion HCl (Wellbutrin SR) 200 mg TWICE A DAY ORAL 08/29/19 18:00 09/26/19 17:59 09/03/19 17:28 Carisoprodol (Soma) 350 mg BEDTIME PRN ORAL NECK SPASM 08/29/19 14:32 09/28/19 14:31 Chlorhexidine Gluconate (Kathryn-Hex 2%) 1 applic DAILY@2000 TOPIC 08/29/19 20:00 09/26/19 19:59 09/03/19 20:52 Citalopram Hydrobromide (celeXA) 40 mg DAILY ORAL 08/30/19 09:00 09/27/19 08:59 09/03/19 08:55 Dextrose 1,000 ml @ 0 mls/hr Q24H PRN IV PN interrupted or unavailable 08/29/19 07:15 09/28/19 07:14 Dextrose (Dextrose 50%) 25 ml Q30M PRN IV Hypoglycemia 08/29/19 14:45 09/28/19 07:14 Dextrose (Dextrose 50%) 50 ml Q30M PRN IV Hypoglycemia 08/29/19 14:45 09/28/19 07:14 Diphenhydramine HCl (Benadryl) 25 mg Q6H PRN IVP Itching/Pruritis 08/29/19 14:33 09/28/19 14:32 Fat Emulsion Intravenous 216 ml/Amino Acids/ Electrolytes/ Dextrose 1,800 ml @ 75 mls/hr Q24H IV 08/29/19 21:00 09/28/19 20:59 09/03/19 20:54 Fluticasone Propionate (Flonase) 1 spray TWICE A DAY NASAL 08/29/19 18:00 09/26/19 17:59 09/03/19 17:28 Hydromorphone HCl 30 ml @ 0 mls/hr Q24H PRN IV For Pain 09/02/19 09:30 09/04/19 09:29 Insulin Aspart (NovoLOG) Q6HR SUBQ 08/30/19 00:00 09/29/19 00:00 09/01/19 12:08 Lorazepam (Ativan) 1 mg Q4H PRN SL Muscle Spasm 08/29/19 14:33 09/05/19 14:32 09/02/19 05:25 Miscellaneous Medication (SENIOR SALES ASSISTANT Rate Change) 1 ea DAILY PRN MISC rate change 09/02/19 09:30 09/04/19 09:29 Miscellaneous Medication (SENIOR SALES ASSISTANT shift volume) 1 ea Q12HR@0700,1900 MISC 09/02/19 19:00 09/04/19 18:59 09/04/19 07:16 Naloxone HCl (Narcan) 0.1 mg Q1M PRN IVP RR<10/min OR SBP<90 mmHg 08/29/19 14:33 09/28/19 14:32 Ondansetron HCl (Zofran) 4 mg Q4H PRN IVP Nausea & Vomiting 08/29/19 14:34 09/28/19 14:33 08/30/19 17:29 Pantoprazole (Protonix) 40 mg DAILY IVP 08/30/19 09:00 09/28/19 08:59 09/03/19 08:55 Phytonadione (Vitamin K) 10 mg ONCE A WEEK SUBQ 08/30/19 09:00 09/29/19 08:59 08/30/19 10:54 Potassium Chloride 40 meq/ Dextrose 1,020 ml @ 25 mls/hr Q24H IV 09/01/19 10:00 10/01/19 09:59 09/03/19 01:15 Trazodone HCl (Desyrel) 200 mg BEDTIME ORAL 08/29/19 21:00 09/26/19 20:59 09/03/19 21:11 Shree Pope MD Sep 04, 2019 07:55
[2019-09-04 08:00] VITALS: BP 105/64
--- NOTE | 2019-09-04 08:24 | General Progress Note ---
Progress Note Progress Note AVSS Voiding okay Pain decreased Abdomen soft, non-distended, incisions clean, stoma healing Urine 3820 Gastrostomy nil Kock pouch ileo small amount enteric labs ok Mg 2.0 Imp. 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
[2019-09-04] MEDS: Pantoprazole Inj IVP SCH (08:49)
[2019-09-04] MEDS: Citalopram Hydrobromide 10mg Tab ORAL SCH (08:49)
[2019-09-04] MEDS: BuPROPion SR 100mg tab ORAL SCH ×2 (08:49→17:26)
[2019-09-04] MEDS: Flonase Nasal Inhaler 16gm NASAL SCH ×2 (08:50→17:25)
[2019-09-04] MEDS: HYDROcodone/Acetamin 5/325 tab ORAL PRN ×3 (12:43→21:37)
[2019-09-04 12:59] VITALS: BP 95/55
--- NOTE | 2019-09-04 15:42 | Cardiology Report ---
APPROVED REPORT EKG Measurement Heart [id number] Normal sinus rhythm Normal ECG
[2019-09-04 16:00] VITALS: BP 117/64
[2019-09-04] MEDS: TraZODone 100mg tab ORAL SCH (20:20)
[2019-09-04] MEDS: Dyna-Hex 2% Top Sol 2oz TOPIC SCH (20:20)
[2019-09-04] MEDS: Fat Emulsion Iv 20% 216 ML in Tpn 1,584 ML IV SCH (20:21)
[2019-09-04 20:47] VITALS: BP 120/65
[2019-09-05 00:22] VITALS: BP 108/64
[2019-09-05] MEDS: Albuterol/Ipratropium 3ml neb HHN SCH ×3 (01:06→12:48)
[2019-09-05 04:26] VITALS: BP 115/64
[2019-09-05] MEDS: NovoLOG Insulin Flexpen SUBQ SCH ×4 (06:00→17:43)
[2019-09-05] MEDS: HYDROcodone/Acetamin 5/325 tab ORAL PRN (06:28)
[2019-09-05] MEDS ORDERED: NS Irrig 1000ml ONE (07:41)
[2019-09-05] MEDS ORDERED: Tubing IV Secondary IV ONE (07:41)
[2019-09-05 08:00] VITALS: BP 114/70
[2019-09-05] MEDS: Citalopram Hydrobromide 10mg Tab ORAL SCH (08:54)
[2019-09-05] MEDS: Pantoprazole Inj IVP SCH (08:54)
[2019-09-05] MEDS: BuPROPion SR 100mg tab ORAL SCH ×2 (08:54→17:43)
[2019-09-05] MEDS: Flonase Nasal Inhaler 16gm NASAL SCH ×2 (08:55→17:43)
[2019-09-05] MEDS ORDERED: Ascorbic Acid 500mg tab ORAL PRN (09:20)
--- NOTE | 2019-09-05 09:26 | General Progress Note ---
Progress Note Progress Note AVSS still c/o incisional pain and pain with mobilizing and Mcarthur not helpful Tolerated 900cc clear liquids and gastrostomy 3:3 protocol Abdomen soft, flat, incisional tenderness with induration upper pole to left and healing ridge throughout. No sign of infection. Stoma healing nicely Urine 5400 Gastrostomy nil Kock pouch ileo small amount enteric Imp: Improving GI function Incisional pain Plan: full liquid diet and gastrostomy 5:1 protocol decrease TPN to 50cc/hour f/u labs maintain continuous drainage of Kock Pouch Change Mcarthur to Percocet 5/325 Lalo Meadows MD Sep 05, 2019 09:26
--- NOTE | 2019-09-05 09:41 | Pulmonology Progress Note ---
Assessment/Plan Assessment/Plan ASSESSMENT Possible LLL pneumonia vs atelectasis S/p Brantley pouch revision Ileus Multiple medical problems PLAN Continue pulmonary regimen and hygiene IV Unasyn Mobilize and ambulate early Will follow Afebrile now however Tmax 99.8 yesterday No leucocytosis Subjective Interval Events: Low grade fever persists Constitutional: Reports: no symptoms HEENT: Repors: no symptoms Respiratory: Reports: no symptoms Cardiovascular: Reports: no symptoms Gastrointestinal/Abdominal: Reports: no symptoms Allergies: Coded Allergies: ADHESIVE TAPE (Verified Adverse Reaction, Intermediate, Rash, 08/27/19) CLEAR TAPE Objective Last 24 Hour Vital Signs Date Time Temp Pulse Resp B/P (MAP) Pulse Ox O2 Delivery O2 Flow Rate FiO2 09/05/19 08:00 98.3 88 20 114/70 (85) 97 09/05/19 06:58 98.7 09/05/19 06:50 82 16 99 Nasal Cannula 2.0 28 86 16 97 09/05/19 06:50 97 Nasal Cannula 2.0 28 09/05/19 04:26 98.7 78 20 115/64 (81) 98 09/05/19 01:06 77 16 99 Nasal Cannula 2.0 28 78 16 96 09/05/19 00:22 99.8 77 20 108/64 (79) 97 09/04/19 22:36 Nasal Cannula 2.0 09/04/19 20:47 99.2 91 20 120/65 (83) 96 09/04/19 19:19 85 18 94 Room Air 21 09/04/19 19:18 97 Nasal Cannula 2.0 28 09/04/19 19:17 85 16 94 Room Air 21 09/04/19 16:00 98.6 86 20 117/64 (81) 95 09/04/19 13:43 84 16 94 Room Air 21 09/04/19 12:59 98.6 87 15 95/55 (68) 98 Intake and Output 09/04/19 09/05/19 18:59 06:59 Intake Total 1750 ml 825 ml Output Total 1970 ml 4220 ml Balance -220 ml -3395 ml Intake Oral 700 ml IV Total 1050 ml 825 ml Output Urine Total 1900 ml 4200 ml Other 70 ml 20 ml # Voids 6 9 General Appearance: no acute distress HEENT: normocephalic Respiratory/Chest: chest wall non-tender, lungs clear Cardiovascular: normal peripheral pulses, normal rate Current Medications Medications (Trade) Dose Ordered Sig/Jori Route PRN Reason Start Time Stop Time Status Last Admin Dose Admin Acetaminophen (Tylenol) 1,000 mg Q4H PRN ORAL temp>100.2 or headache 08/29/19 14:32 09/28/19 14:31 09/01/19 00:59 Albuterol/ Ipratropium (Albuterol/ Ipratropium) 3 ml Q6HRT HHN 08/31/19 13:00 09/05/19 12:59 09/05/19 07:09 Ascorbic Acid (Vitamin C) 500 mg Q4H PRN ORAL thick ileostomy effluent 09/05/19 09:20 10/05/19 09:19 Bupropion HCl (Wellbutrin SR) 200 mg TWICE A DAY ORAL 08/29/19 18:00 09/26/19 17:59 09/05/19 08:54 Carisoprodol (Soma) 350 mg BEDTIME PRN ORAL NECK SPASM 08/29/19 14:32 09/28/19 14:31 Chlorhexidine Gluconate (Kathryn-Hex 2%) 1 applic DAILY@2000 TOPIC 08/29/19 20:00 09/26/19 19:59 09/04/19 20:20 Citalopram Hydrobromide (celeXA) 40 mg DAILY ORAL 08/30/19 09:00 09/27/19 08:59 09/05/19 08:54 Dextrose 1,000 ml @ 0 mls/hr Q24H PRN IV PN interrupted or unavailable 08/29/19 07:15 09/28/19 07:14 Dextrose (Dextrose 50%) 25 ml Q30M PRN IV Hypoglycemia 08/29/19 14:45 09/28/19 07:14 Dextrose (Dextrose 50%) 50 ml Q30M PRN IV Hypoglycemia 08/29/19 14:45 09/28/19 07:14 Diphenhydramine HCl (Benadryl) 25 mg Q6H PRN IVP Itching/Pruritis 08/29/19 14:33 09/28/19 14:32 Fat Emulsion Intravenous 216 ml/Amino Acids/ Electrolytes/ Dextrose 1,800 ml @ 75 mls/hr Q24H IV 08/29/19 21:00 09/05/19 19:59 09/04/19 20:21 Fluticasone Propionate (Flonase) 1 spray TWICE A DAY NASAL 08/29/19 18:00 09/26/19 17:59 09/05/19 08:55 Insulin Aspart (NovoLOG) Q6HR SUBQ 08/30/19 00:00 09/29/19 00:00 09/01/19 12:08 Lorazepam (Ativan) 1 mg Q4H PRN SL Muscle Spasm 09/04/19 09:00 09/11/19 08:59 Neomycin/ Polymyxin/ Bacitracin (Neosporin Oint 15gm) 1 applic QID TOPIC 09/05/19 10:00 10/05/19 09:59 Ondansetron HCl (Zofran) 4 mg Q4H PRN IVP Nausea & Vomiting 08/29/19 14:34 09/28/19 14:33 08/30/19 17:29 Oxycodone/ Acetaminophen (Percocet 5-325) 1 tab Q4H PRN ORAL For Pain 09/05/19 09:20 09/12/19 09:19 Pantoprazole (Protonix) 40 mg DAILY IVP 08/30/19 09:00 09/28/19 08:59 09/05/19 08:54 Phytonadione (Vitamin K) 10 mg ONCE A WEEK SUBQ 08/30/19 09:00 09/29/19 08:59 08/30/19 10:54 Trazodone HCl (Desyrel) 200 mg BEDTIME ORAL 08/29/19 21:00 09/26/19 20:59 09/04/19 20:20 Shree Pope MD Sep 05, 2019 09:41
[2019-09-05] MEDS: Neosporin Oint 15gm TOPIC SCH ×4 (10:44→21:05)
[2019-09-05] MEDS: oxyCODONE HCL/Acetaminophen 5/325mg ORAL PRN (10:45)
[2019-09-05 12:00] VITALS: BP 117/63
[2019-09-05 16:00] VITALS: BP 124/61
[2019-09-05 20:00] VITALS: BP 111/69
[2019-09-05] MEDS ORDERED: TPN IV SCH (20:00)
[2019-09-05] MEDS ORDERED: FAT EMULSION 20% IV SCH (20:00)
[2019-09-05] MEDS: Dyna-Hex 2% Top Sol 2oz TOPIC SCH (20:39)
[2019-09-05] MEDS: TraZODone 100mg tab ORAL SCH (20:39)
[2019-09-05] MEDS: LORazepam 1mg tab SL PRN (21:05)
[2019-09-06] VITALS: BP 106/53
[2019-09-06 04:00] VITALS: BP 109/59
[2019-09-06] MEDS: oxyCODONE HCL/Acetaminophen 5/325mg ORAL PRN ×4 (04:49→21:59)
[2019-09-06] MEDS: NovoLOG Insulin Flexpen SUBQ SCH ×5 (06:00→23:41)
[2019-09-06 06:45] LABS: ALANINE AMINOTRANSFERASE 17 U/L (12-78); ALBUMIN 2.6 G/DL (3.4-5.0); ALBUMIN/GLOBULIN RATIO 0.6 (1.0-2.7); ALKALINE PHOSPHATASE 119 U/L (46-116); ANION GAP 9 mmol/L (5-15); ASPARTATE AMINO TRANSFERASE 21 U/L (15-37); BILIRUBIN,TOTAL 0.6 MG/DL (0.2-1.0); BLOOD UREA NITROGEN 17 mg/dL (7-18); CALCIUM 9.5 MG/DL (8.5-10.1); CARBON DIOXIDE 27 MMOL/L (21-32); CHLORIDE 105 MMOL/L (98-107); PHOSPHORUS 3.5 MG/DL (2.5-4.9); POTASSIUM 4.4 MMOL/L (3.5-5.1); SODIUM 141 MMOL/L (136-145)
[2019-09-06 07:24] LABS: BASOPHILS % (AUTO) 0.5 % (0.0-2.0); EOSINOPHILS % (AUTO) 1.3 % (0.0-3.0); HEMATOCRIT 36.6 % (37.0-47.0); HEMOGLOBIN 12.2 G/DL (12.0-16.0); LYMPHOCYTES % (AUTO) 11.1 % (20.0-45.0); MEAN CORPUSCULAR VOLUME 86 FL (80-99); MONOCYTES % (AUTO) 9.2 % (1.0-10.0); NEUTROPHILS % (AUTO) 77.9 % (45.0-75.0); PLATELET COUNT 323 K/UL (150-450); RED BLOOD COUNT 4.26 M/UL (4.20-5.40); RED CELL DISTRIBUTION WIDTH 15.8 % (11.6-14.8); WHITE BLOOD COUNT 8.9 K/UL (4.8-10.8)
--- NOTE | 2019-09-06 07:47 | Pulmonology Progress Note ---
Assessment/Plan Assessment/Plan ASSESSMENT Possible LLL pneumonia vs atelectasis S/p Brantley pouch revision Ileus Multiple medical problems PLAN Continue pulmonary regimen and hygiene IV Unasyn Mobilize and ambulate early Will follow Afebrile now however Tmax 99.1 yesterday No leucocytosis Subjective Interval Events: Low grade fever persists; no leucocytosis Constitutional: Reports: no symptoms HEENT: Repors: no symptoms Respiratory: Reports: no symptoms Cardiovascular: Reports: no symptoms Gastrointestinal/Abdominal: Reports: no symptoms Allergies: Coded Allergies: ADHESIVE TAPE (Verified Adverse Reaction, Intermediate, Rash, 08/27/19) CLEAR TAPE Objective Last 24 Hour Vital Signs Date Time Temp Pulse Resp B/P (MAP) Pulse Ox O2 Delivery O2 Flow Rate FiO2 09/06/19 05:50 99.0 09/06/19 04:00 99.0 83 18 109/59 (76) 97 09/06/19 00:00 99.1 88 18 106/53 (70) 94 09/05/19 21:00 Nasal Cannula 2.0 09/05/19 20:09 97 Nasal Cannula 2.0 28 09/05/19 20:00 99.4 81 18 111/69 (83) 97 09/05/19 16:00 98.5 85 20 124/61 (82) 97 09/05/19 12:48 82 16 99 Nasal Cannula 2.0 28 80 16 97 09/05/19 12:00 98.2 85 20 117/63 (81) 99 09/05/19 09:00 Nasal Cannula 2.0 09/05/19 08:00 98.3 88 20 114/70 (85) 97 Intake and Output 09/05/19 09/06/19 19:00 07:00 Intake Total 1400 ml 50 ml Output Total 1870 ml 340 ml Balance -470 ml -290 ml Intake Oral 500 ml IV Total 900 ml 50 ml Output Urine Total 1650 ml 300 ml Other 220 ml 40 ml General Appearance: no acute distress HEENT: normocephalic Respiratory/Chest: chest wall non-tender Cardiovascular: normal peripheral pulses, normal rate Laboratory Tests 09/06/19 04:45: White Blood Count 8.9, Red Blood Count 4.26, Hemoglobin 12.2, Hematocrit 36.6L, Mean Corpuscular Volume 86, Mean Corpuscular Hemoglobin 28.8, Mean Corpuscular Hemoglobin Concent 33.5, Red Cell Distribution Width 15.8H, Platelet Count 323, Mean Platelet Volume 6.8, Neutrophils (%) (Auto) 77.9H, Lymphocytes (%) (Auto) 11.1L, Monocytes (%) (Auto) 9.2, Eosinophils (%) (Auto) 1.3, Basophils (%) (Auto ) 0.5, Sodium Level 141, Potassium Level 4.4, Chloride Level 105, Carbon Dioxide Level 27, Anion Gap 9, Blood Urea Nitrogen 17, Creatinine 1.0, Estimat Glomerular Filtration Rate 55.1, Glucose Level 82, Calcium Level 9.5, Phosphorus Level 3.5, Magnesium Level 1.8, Total Bilirubin 0.6, Aspartate Amino Transf (AST/SGOT) 21, Alanine Aminotransferase (ALT/SGPT) 17, Alkaline Phosphatase 119H, Total Protein 7.3, Albumin 2.6L, Globulin 4.7, Albumin/ Globulin Ratio 0.6L Current Medications Medications (Trade) Dose Ordered Sig/Jori Route PRN Reason Start Time Stop Time Status Last Admin Dose Admin Acetaminophen (Tylenol) 1,000 mg Q4H PRN ORAL temp>100.2 or headache 08/29/19 14:32 09/28/19 14:31 09/01/19 00:59 Ascorbic Acid (Vitamin C) 500 mg Q4H PRN ORAL thick ileostomy effluent 09/05/19 09:20 10/05/19 09:19 Bupropion HCl (Wellbutrin SR) 200 mg TWICE A DAY ORAL 08/29/19 18:00 09/26/19 17:59 09/05/19 17:43 Carisoprodol (Soma) 350 mg BEDTIME PRN ORAL NECK SPASM 08/29/19 14:32 09/28/19 14:31 Chlorhexidine Gluconate (Kathryn-Hex 2%) 1 applic DAILY@2000 TOPIC 08/29/19 20:00 09/26/19 19:59 09/05/19 20:39 Citalopram Hydrobromide (celeXA) 40 mg DAILY ORAL 08/30/19 09:00 09/27/19 08:59 09/05/19 08:54 Dextrose 1,000 ml @ 0 mls/hr Q24H PRN IV PN interrupted or unavailable 08/29/19 07:15 09/28/19 07:14 Dextrose (Dextrose 50%) 25 ml Q30M PRN IV Hypoglycemia 08/29/19 14:45 09/28/19 07:14 Dextrose (Dextrose 50%) 50 ml Q30M PRN IV Hypoglycemia 08/29/19 14:45 09/28/19 07:14 Diphenhydramine HCl (Benadryl) 25 mg Q6H PRN IVP Itching/Pruritis 08/29/19 14:33 09/28/19 14:32 Fat Emulsion Intravenous 146 ml/Amino Acids/ Electrolytes/ Dextrose 1,200 ml @ 50 mls/hr Q24H IV 09/05/19 20:00 10/05/19 19:59 09/05/19 20:39 Fluticasone Propionate (Flonase) 1 spray TWICE A DAY NASAL 08/29/19 18:00 09/26/19 17:59 09/05/19 17:43 Insulin Aspart (NovoLOG) Q6HR SUBQ 08/30/19 00:00 09/29/19 00:00 09/05/19 12:22 Lorazepam (Ativan) 1 mg Q4H PRN SL Muscle Spasm 09/04/19 09:00 09/11/19 08:59 09/05/19 21:05 Neomycin/ Polymyxin/ Bacitracin (Neosporin Oint 15gm) 1 applic QID TOPIC 09/05/19 10:00 10/05/19 09:59 09/05/19 21:05 Ondansetron HCl (Zofran) 4 mg Q4H PRN IVP Nausea & Vomiting 08/29/19 14:34 09/28/19 14:33 09/05/19 18:33 Oxycodone/ Acetaminophen (Percocet 5-325) 1 tab Q4H PRN ORAL For Pain 09/05/19 09:20 09/12/19 09:19 09/06/19 04:49 Pantoprazole (Protonix) 40 mg DAILY IVP 08/30/19 09:00 09/28/19 08:59 09/05/19 08:54 Phytonadione (Vitamin K) 10 mg ONCE A WEEK SUBQ 08/30/19 09:00 09/29/19 08:59 08/30/19 10:54 Trazodone HCl (Desyrel) 200 mg BEDTIME ORAL 08/29/19 21:00 09/26/19 20:59 09/05/19 20:39 Shree Pope MD Sep 06, 2019 07:47
[2019-09-06 08:00] VITALS: BP 128/76
[2019-09-06] MEDS: Citalopram Hydrobromide 10mg Tab ORAL SCH (09:09)
[2019-09-06] MEDS: Pantoprazole Inj IVP SCH (09:10)
[2019-09-06] MEDS: BuPROPion SR 100mg tab ORAL SCH ×2 (09:10→17:56)
[2019-09-06] MEDS: Flonase Nasal Inhaler 16gm NASAL SCH ×2 (09:12→17:56)
[2019-09-06] MEDS: Neosporin Oint 15gm TOPIC SCH ×4 (09:12→20:41)
[2019-09-06] MEDS: Phytonadione 10 mg/mL 1ml amp SUBQ SCH (09:54)
[2019-09-06 12:00] VITALS: BP 111/60
--- NOTE | 2019-09-06 15:54 | General Progress Note ---
Progress Note Progress Note AVSS Tolerating small amounts of full liquid diet and gastrostomy 3:3 protocol Abdomen soft, healing nicely Urine 1950 Gastrostomy 20 Kock pouch ileo 200 labs okay except albumin 2.6 Imp. slowly improving Plan: Plug gastrostomy continuously Advance to BCIR diet in AM continue TPN and continuous drainage of Kock pouch Lalo Meadows MD Sep 06, 2019 15:54
[2019-09-06 16:00] VITALS: BP 92/60
[2019-09-06 20:00] VITALS: BP 112/74
[2019-09-06] MEDS: Dyna-Hex 2% Top Sol 2oz TOPIC SCH (20:40)
[2019-09-06] MEDS: TPN IV SCH (20:41)
[2019-09-06] MEDS: FAT EMULSION 20% IV SCH (20:41)
[2019-09-06] MEDS: TraZODone 100mg tab ORAL SCH (20:41)
[2019-09-07] VITALS: BP 95/59
[2019-09-07] MEDS: oxyCODONE HCL/Acetaminophen 5/325mg ORAL PRN ×4 (02:34→20:48)
[2019-09-07 04:00] VITALS: BP 99/64
[2019-09-07] MEDS: NovoLOG Insulin Flexpen SUBQ SCH ×3 (05:58→18:00)
[2019-09-07 06:11] LABS: BASOPHILS % (AUTO) 0.9 % (0.0-2.0); EOSINOPHILS % (AUTO) 1.5 % (0.0-3.0); HEMATOCRIT 36.9 % (37.0-47.0); HEMOGLOBIN 12.1 G/DL (12.0-16.0); LYMPHOCYTES % (AUTO) 11.4 % (20.0-45.0); MEAN CORPUSCULAR VOLUME 87 FL (80-99); MONOCYTES % (AUTO) 8.4 % (1.0-10.0); NEUTROPHILS % (AUTO) 77.8 % (45.0-75.0); PLATELET COUNT 337 K/UL (150-450); RED BLOOD COUNT 4.23 M/UL (4.20-5.40); RED CELL DISTRIBUTION WIDTH 15.9 % (11.6-14.8); WHITE BLOOD COUNT 9.2 K/UL (4.8-10.8)
[2019-09-07 06:21] LABS: ALANINE AMINOTRANSFERASE 19 U/L (12-78); ALBUMIN 2.5 G/DL (3.4-5.0); ALBUMIN/GLOBULIN RATIO 0.5 (1.0-2.7); ALKALINE PHOSPHATASE 128 U/L (46-116); ANION GAP 10 mmol/L (5-15); ASPARTATE AMINO TRANSFERASE 17 U/L (15-37); BILIRUBIN,TOTAL 0.6 MG/DL (0.2-1.0); BLOOD UREA NITROGEN 18 mg/dL (7-18); CALCIUM 8.8 MG/DL (8.5-10.1); CARBON DIOXIDE 27 MMOL/L (21-32); CHLORIDE 104 MMOL/L (98-107); CREATININE 0.9 MG/DL (0.55-1.30); SODIUM 140 MMOL/L (136-145)
[2019-09-07 08:00] VITALS: BP 98/59
[2019-09-07] MEDS: Citalopram Hydrobromide 10mg Tab ORAL SCH (09:16)
[2019-09-07] MEDS: Pantoprazole Inj IVP SCH (09:17)
[2019-09-07] MEDS: Neosporin Oint 15gm TOPIC SCH ×4 (09:17→20:50)
[2019-09-07] MEDS: BuPROPion SR 100mg tab ORAL SCH ×2 (09:17→17:50)
[2019-09-07] MEDS: Flonase Nasal Inhaler 16gm NASAL SCH ×2 (09:18→17:51)
[2019-09-07] MEDS: MYRBETRIQ 50 MG ORAL SCH (09:18)
--- NOTE | 2019-09-07 09:53 | Pulmonology Progress Note ---
Assessment/Plan Assessment/Plan ASSESSMENT Possible LLL pneumonia vs atelectasis S/p Brantley pouch revision Ileus Multiple medical problems PLAN Continue pulmonary regimen and hygiene IV Unasyn Mobilize and ambulate early Will follow Afebrile; continues to have low sharda fever No leucocytosis Subjective Interval Events: None new reported Constitutional: Reports: no symptoms HEENT: Repors: no symptoms Respiratory: Reports: no symptoms Cardiovascular: Reports: no symptoms Allergies: Coded Allergies: ADHESIVE TAPE (Verified Adverse Reaction, Intermediate, Rash, 08/27/19) CLEAR TAPE Objective Last 24 Hour Vital Signs Date Time Temp Pulse Resp B/P (MAP) Pulse Ox O2 Delivery O2 Flow Rate FiO2 09/07/19 04:00 98.7 78 18 99/64 (76) 99 09/07/19 00:00 99.0 82 18 95/59 (71) 99 09/06/19 20:30 Room Air 09/06/19 20:00 99.3 78 18 112/74 (87) 97 09/06/19 19:00 98 Nasal Cannula 2.0 28 09/06/19 16:00 98.8 74 17 92/60 (71) 98 09/06/19 12:00 98.4 82 18 111/60 (77) 95 Intake and Output 09/06/19 09/07/19 19:00 07:00 Intake Total 1290 ml 2565 ml Output Total 1140 ml 3015 ml Balance 150 ml -450 ml Intake Oral 640 ml 880 ml Free Water 80 ml IV Total 650 ml 1200 ml Tube Feeding 75 ml Blood Product 250 ml Other 80 ml Output Urine Total 1000 ml 2700 ml Stool Total 170 ml Gastric Drainage Total 5 ml Other 140 ml 140 ml # Voids 8 General Appearance: no acute distress HEENT: normocephalic Respiratory/Chest: chest wall non-tender, lungs clear Cardiovascular: normal peripheral pulses, normal rate Laboratory Tests 09/07/19 04:55: White Blood Count 9.2, Red Blood Count 4.23, Hemoglobin 12.1, Hematocrit 36.9L, Mean Corpuscular Volume 87, Mean Corpuscular Hemoglobin 28.7, Mean Corpuscular Hemoglobin Concent 32.9, Red Cell Distribution Width 15.9H, Platelet Count 337, Mean Platelet Volume 6.3L, Neutrophils (%) (Auto) 77.8H, Lymphocytes (%) (Auto) 11.4L, Monocytes (%) (Auto) 8.4, Eosinophils (%) (Auto) 1.5, Basophils (%) (Auto ) 0.9, Sodium Level 140, Potassium Level 4.0, Chloride Level 104, Carbon Dioxide Level 27, Anion Gap 10, Blood Urea Nitrogen 18, Creatinine 0.9, Estimat Glomerular Filtration Rate > 60, Glucose Level 100, Calcium Level 8.8, Total Bilirubin 0.6, Aspartate Amino Transf (AST/SGOT) 17, Alanine Aminotransferase ( ALT/SGPT) 19, Alkaline Phosphatase 128H, Total Protein 7.2, Albumin 2.5L, Globulin 4.7, Albumin/Globulin Ratio 0.5L Current Medications Medications (Trade) Dose Ordered Sig/Jori Route PRN Reason Start Time Stop Time Status Last Admin Dose Admin Acetaminophen (Tylenol) 1,000 mg Q4H PRN ORAL temp>100.2 or headache 08/29/19 14:32 09/28/19 14:31 09/01/19 00:59 Ascorbic Acid (Vitamin C) 500 mg Q4H PRN ORAL thick ileostomy effluent 09/06/19 16:00 10/06/19 15:59 Bupropion HCl (Wellbutrin SR) 200 mg TWICE A DAY ORAL 08/29/19 18:00 09/26/19 17:59 09/07/19 09:17 Carisoprodol (Soma) 350 mg BEDTIME PRN ORAL NECK SPASM 08/29/19 14:32 09/28/19 14:31 Chlorhexidine Gluconate (Kathryn-Hex 2%) 1 applic DAILY@2000 TOPIC 08/29/19 20:00 09/26/19 19:59 09/06/19 20:40 Citalopram Hydrobromide (celeXA) 40 mg DAILY ORAL 08/30/19 09:00 09/27/19 08:59 09/07/19 09:16 Dextrose 1,000 ml @ 0 mls/hr Q24H PRN IV PN interrupted or unavailable 08/29/19 07:15 09/28/19 07:14 Dextrose (Dextrose 50%) 25 ml Q30M PRN IV Hypoglycemia 08/29/19 14:45 09/28/19 07:14 Dextrose (Dextrose 50%) 50 ml Q30M PRN IV Hypoglycemia 08/29/19 14:45 09/28/19 07:14 Diphenhydramine HCl (Benadryl) 25 mg Q6H PRN IVP Itching/Pruritis 08/29/19 14:33 09/28/19 14:32 Fat Emulsion Intravenous 144 ml/Amino Acids/ Electrolytes/ Dextrose 1,200 ml @ 50 mls/hr Q24H IV 09/06/19 20:00 10/06/19 19:59 09/06/19 20:41 Fluticasone Propionate (Flonase) 1 spray TWICE A DAY NASAL 08/29/19 18:00 09/26/19 17:59 09/07/19 09:18 Insulin Aspart (NovoLOG) Q6HR SUBQ 08/30/19 00:00 09/29/19 00:00 09/05/19 12:22 Lorazepam (Ativan) 1 mg Q4H PRN SL Muscle Spasm 09/04/19 09:00 09/11/19 08:59 09/05/19 21:05 Neomycin/ Polymyxin/ Bacitracin (Neosporin Oint 15gm) 1 applic QID TOPIC 09/05/19 10:00 10/05/19 09:59 09/07/19 09:17 Ondansetron HCl (Zofran) 4 mg Q4H PRN IVP Nausea & Vomiting 08/29/19 14:34 09/28/19 14:33 09/05/19 18:33 Oxycodone/ Acetaminophen (Percocet 5-325) 1 tab Q4H PRN ORAL For Pain 09/05/19 09:20 09/12/19 09:19 09/07/19 09:34 Pantoprazole (Protonix) 40 mg DAILY IVP 08/30/19 09:00 09/28/19 08:59 09/07/19 09:17 Patient Own Medication (Patient's Own Med) 1 ea DAILY ORAL 09/07/19 09:00 10/07/19 08:59 09/07/19 09:18 Phytonadione (Vitamin K) 10 mg ONCE A WEEK SUBQ 08/30/19 09:00 09/29/19 08:59 09/06/19 09:54 Trazodone HCl (Desyrel) 200 mg BEDTIME ORAL 08/29/19 21:00 09/26/19 20:59 09/06/19 20:41 Shree Pope MD Sep 07, 2019 09:53
[2019-09-07 12:00] VITALS: BP 103/62
--- NOTE | 2019-09-07 15:08 | Surgery Progress Note ---
Surgery Progress Note Subjective Symptoms: improved, tolerating diet, voiding well, pain decreased Objective Last 24 Hour Vital Signs Date Time Temp Pulse Resp B/P (MAP) Pulse Ox O2 Delivery O2 Flow Rate FiO2 09/07/19 12:00 98.4 75 18 103/62 (76) 97 09/07/19 10:47 97 Nasal Cannula 2.0 28 09/07/19 09:00 Room Air 09/07/19 08:00 98.6 81 18 98/59 (72) 96 09/07/19 04:00 98.7 78 18 99/64 (76) 99 09/07/19 00:00 99.0 82 18 95/59 (71) 99 09/06/19 20:30 Room Air 09/06/19 20:00 99.3 78 18 112/74 (87) 97 09/06/19 19:00 98 Nasal Cannula 2.0 28 09/06/19 16:00 98.8 74 17 92/60 (71) 98 I&O Intake and Output 09/06/19 09/07/19 18:59 06:59 Intake Total 1290 ml 2615 ml Output Total 1140 ml 3015 ml Balance 150 ml -400 ml Intake Oral 640 ml 880 ml Free Water 80 ml IV Total 650 ml 1250 ml Tube Feeding 75 ml Blood Product 250 ml Other 80 ml Output Urine Total 1000 ml 2700 ml Stool Total 170 ml Gastric Drainage Total 5 ml Other 140 ml 140 ml # Voids 8 Dressing: dry Wound: clean Drains: other Cardiovascular: RSR Respiratory: clear Abdomen: soft, flat, non-tender, present bowel sounds Extremities: no edema, no tenderness, no cyanosis Laboratory Tests Test 09/07/19 04:55 White Blood Count 9.2 K/UL (4.8-10.8) Red Blood Count 4.23 M/UL (4.20-5.40) Hemoglobin 12.1 G/DL (12.0-16.0) Hematocrit 36.9 % (37.0-47.0) L Mean Corpuscular Volume 87 FL (80-99) Mean Corpuscular Hemoglobin 28.7 PG (27.0-31.0) Mean Corpuscular Hemoglobin Concent 32.9 G/DL (32.0-36.0) Red Cell Distribution Width 15.9 % (11.6-14.8) H Platelet Count 337 K/UL (150-450) Mean Platelet Volume 6.3 FL (6.5-10.1) L Neutrophils (%) (Auto) 77.8 % (45.0-75.0) H Lymphocytes (%) (Auto) 11.4 % (20.0-45.0) L Monocytes (%) (Auto) 8.4 % (1.0-10.0) Eosinophils (%) (Auto) 1.5 % (0.0-3.0) Basophils (%) (Auto) 0.9 % (0.0-2.0) Sodium Level 140 MMOL/L (136-145) Potassium Level 4.0 MMOL/L (3.5-5.1) Chloride Level 104 MMOL/L (98-107) Carbon Dioxide Level 27 MMOL/L (21-32) Anion Gap 10 mmol/L (5-15) Blood Urea Nitrogen 18 mg/dL (7-18) Creatinine 0.9 MG/DL (0.55-1.30) Estimat Glomerular Filtration Rate > 60 mL/min (>60) Glucose Level 100 MG/DL (74-106) Calcium Level 8.8 MG/DL (8.5-10.1) Total Bilirubin 0.6 MG/DL (0.2-1.0) Aspartate Amino Transf (AST/SGOT) 17 U/L (15-37) Alanine Aminotransferase (ALT/SGPT) 19 U/L (12-78) Alkaline Phosphatase 128 U/L (46-116) H Total Protein 7.2 G/DL (6.4-8.2) Albumin 2.5 G/DL (3.4-5.0) L Globulin 4.7 g/dL Albumin/Globulin Ratio 0.5 (1.0-2.7) L Plan Problems: (1) Malfuctioning of Kock Pouch Assessment & Plan: AVSS labs okay tolerating diet comfortable Abdomen soft, healing nicely Imp. slowly improving Plan: Plug gastrostomy continuously BCIR diet continue TPN and continuous drainage of Kock pouch Rob Cole Sep 07, 2019 15:08
[2019-09-07] MEDS: LORazepam 1mg tab SL PRN ×2 (15:44→22:35)
[2019-09-07 16:00] VITALS: BP 115/62
[2019-09-07 20:00] VITALS: BP 127/70
[2019-09-07] MEDS: TraZODone 100mg tab ORAL SCH (20:49)
[2019-09-07] MEDS: Dyna-Hex 2% Top Sol 2oz TOPIC SCH (20:50)
[2019-09-07] MEDS: TPN IV SCH (20:56)
[2019-09-07] MEDS: FAT EMULSION 20% IV SCH (20:56)
[2019-09-08] VITALS: BP 115/59
[2019-09-08] MEDS: oxyCODONE HCL/Acetaminophen 5/325mg ORAL PRN ×2 (03:39→08:23)
[2019-09-08 04:00] VITALS: BP 127/87
[2019-09-08] MEDS: LORazepam 1mg tab SL PRN (06:19)
[2019-09-08] MEDS: NovoLOG Insulin Flexpen SUBQ SCH ×4 (07:07→18:03)
[2019-09-08 08:00] VITALS: BP 115/67
[2019-09-08] MEDS: Neosporin Oint 15gm TOPIC SCH ×4 (08:22→21:58)
[2019-09-08] MEDS: BuPROPion SR 100mg tab ORAL SCH ×2 (08:22→18:03)
[2019-09-08] MEDS: MYRBETRIQ 50 MG ORAL SCH (08:22)
[2019-09-08] MEDS: Citalopram Hydrobromide 10mg Tab ORAL SCH (08:22)
[2019-09-08] MEDS: Flonase Nasal Inhaler 16gm NASAL SCH ×2 (08:22→18:47)
[2019-09-08] MEDS: Pantoprazole Inj IVP SCH (08:23)
--- NOTE | 2019-09-08 11:13 | Pulmonology Progress Note ---
Assessment/Plan Assessment/Plan ASSESSMENT Possible LLL pneumonia vs atelectasis S/p Brantley pouch revision Ileus Multiple medical problems PLAN Continue pulmonary regimen and hygiene IV Unasyn Mobilize and ambulate early Will follow Afebrile; continues to have low sharda fever No leucocytosis Subjective Interval Events: None nwew Constitutional: Reports: no symptoms HEENT: Repors: no symptoms Respiratory: Reports: no symptoms Cardiovascular: Reports: no symptoms Gastrointestinal/Abdominal: Reports: no symptoms Allergies: Coded Allergies: ADHESIVE TAPE (Verified Adverse Reaction, Intermediate, Rash, 08/27/19) CLEAR TAPE Objective Last 24 Hour Vital Signs Date Time Temp Pulse Resp B/P (MAP) Pulse Ox O2 Delivery O2 Flow Rate FiO2 09/08/19 09:00 Room Air 09/08/19 08:00 99.0 96 18 115/67 (83) 95 09/08/19 04:00 98.7 98 18 127/87 (100) 95 09/08/19 00:00 99.2 93 18 115/59 (77) 96 09/07/19 21:00 Room Air 09/07/19 20:00 99.0 87 18 127/70 (89) 95 09/07/19 16:00 99.6 85 16 115/62 (79) 94 09/07/19 12:00 98.4 75 18 103/62 (76) 97 Intake and Output 09/07/19 09/08/19 19:00 07:00 Intake Total 960 ml 860 ml Output Total 750 ml 950 ml Balance 210 ml -90 ml Intake Oral 360 ml IV Total 600 ml 400 ml Other 460 ml Output Urine Total 750 ml 950 ml Other 0 ml General Appearance: no acute distress HEENT: normocephalic Respiratory/Chest: chest wall non-tender, decreased breath sounds Cardiovascular: normal peripheral pulses, normal rate Abdomen: soft, non tender Current Medications Medications (Trade) Dose Ordered Sig/Jori Route PRN Reason Start Time Stop Time Status Last Admin Dose Admin Acetaminophen (Tylenol) 1,000 mg Q4H PRN ORAL temp>100.2 or headache 08/29/19 14:32 09/28/19 14:31 09/01/19 00:59 Ascorbic Acid (Vitamin C) 500 mg Q4H PRN ORAL thick ileostomy effluent 09/06/19 16:00 10/06/19 15:59 Bupropion HCl (Wellbutrin SR) 200 mg TWICE A DAY ORAL 08/29/19 18:00 09/26/19 17:59 09/08/19 08:22 Carisoprodol (Soma) 350 mg BEDTIME PRN ORAL NECK SPASM 08/29/19 14:32 09/28/19 14:31 Chlorhexidine Gluconate (Kathryn-Hex 2%) 1 applic DAILY@2000 TOPIC 08/29/19 20:00 09/26/19 19:59 09/07/19 20:50 Citalopram Hydrobromide (celeXA) 40 mg DAILY ORAL 08/30/19 09:00 09/27/19 08:59 09/08/19 08:22 Dextrose 1,000 ml @ 0 mls/hr Q24H PRN IV PN interrupted or unavailable 08/29/19 07:15 09/28/19 07:14 Dextrose (Dextrose 50%) 25 ml Q30M PRN IV Hypoglycemia 08/29/19 14:45 09/28/19 07:14 Dextrose (Dextrose 50%) 50 ml Q30M PRN IV Hypoglycemia 08/29/19 14:45 09/28/19 07:14 Diphenhydramine HCl (Benadryl) 25 mg Q6H PRN IVP Itching/Pruritis 08/29/19 14:33 09/28/19 14:32 Fat Emulsion Intravenous 144 ml/Amino Acids/ Electrolytes/ Dextrose 1,200 ml @ 50 mls/hr Q24H IV 09/06/19 20:00 10/06/19 19:59 09/07/19 20:56 Fluticasone Propionate (Flonase) 1 spray TWICE A DAY NASAL 08/29/19 18:00 09/26/19 17:59 09/08/19 08:22 Insulin Aspart (NovoLOG) Q6HR SUBQ 08/30/19 00:00 09/29/19 00:00 09/08/19 07:07 Lorazepam (Ativan) 1 mg Q4H PRN SL Muscle Spasm 09/04/19 09:00 09/11/19 08:59 09/08/19 06:19 Neomycin/ Polymyxin/ Bacitracin (Neosporin Oint 15gm) 1 applic QID TOPIC 09/05/19 10:00 10/05/19 09:59 09/08/19 08:22 Ondansetron HCl (Zofran) 4 mg Q4H PRN IVP Nausea & Vomiting 08/29/19 14:34 09/28/19 14:33 09/08/19 08:23 Oxycodone/ Acetaminophen (Percocet 5-325) 1 tab Q4H PRN ORAL For Pain 09/05/19 09:20 09/12/19 09:19 09/08/19 08:23 Pantoprazole (Protonix) 40 mg DAILY IVP 08/30/19 09:00 09/28/19 08:59 09/08/19 08:23 Patient Own Medication (Patient's Own Med) 1 ea DAILY ORAL 09/07/19 09:00 10/07/19 08:59 09/08/19 08:22 Phytonadione (Vitamin K) 10 mg ONCE A WEEK SUBQ 08/30/19 09:00 09/29/19 08:59 09/06/19 09:54 Trazodone HCl (Desyrel) 200 mg BEDTIME ORAL 08/29/19 21:00 09/26/19 20:59 09/07/19 20:49 Shree Pope MD Sep 08, 2019 11:13
--- NOTE | 2019-09-08 11:55 | Diagnostic Imaging Report ---
EXAM: XR Abdomen, 1 Views CLINICAL HISTORY: ABD PAIN TECHNIQUE: Frontal view of the abdomen pelvis . COMPARISON: No relevant prior studies available. FINDINGS: Gastrointestinal tract: Dilated gassy small bowel, maybe an ileus or bowel obstruction. Bones joints: Unremarkable. Soft tissues: Vertical abdominal wall lu. Surgical clips in the pelvis. Tubes, lines and devices: Catheter overlying the right pelvis. IMPRESSION: Dilated gassy small bowel, maybe an ileus or bowel obstruction.
[2019-09-08 12:00] VITALS: BP 128/79
--- NOTE | 2019-09-08 12:59 | Surgery Progress Note ---
Surgery Progress Note Subjective Additional Comments Patient states that she has been having intermittent sharp abdominal pain for the past 5 days and is been slightly worsening but she is kept to herself and has not been forward about this. She states she is been intermittently nauseous and had a episode of emesis this morning. Decreased ileal output. Labs normal. KUB noted. Patient made n.p.o., IV fluids, CT ordered to rule out obstructive or infectious process, Busch placed as patient states she is having burning with urination and frequent urination and UA ordered. Objective Last 24 Hour Vital Signs Date Time Temp Pulse Resp B/P (MAP) Pulse Ox O2 Delivery O2 Flow Rate FiO2 09/08/19 12:00 99.1 101 16 128/79 (95) 97 09/08/19 09:00 Room Air 09/08/19 08:00 99.0 96 18 115/67 (83) 95 09/08/19 04:00 98.7 98 18 127/87 (100) 95 09/08/19 00:00 99.2 93 18 115/59 (77) 96 09/07/19 21:00 Room Air 09/07/19 20:00 99.0 87 18 127/70 (89) 95 09/07/19 16:00 99.6 85 16 115/62 (79) 94 I&O Intake and Output 09/07/19 09/08/19 19:00 07:00 Intake Total 960 ml 910 ml Output Total 750 ml 950 ml Balance 210 ml -40 ml Intake Oral 360 ml IV Total 600 ml 450 ml Other 460 ml Output Urine Total 750 ml 950 ml Other 0 ml Dressing: dry Wound: clean Drains: other Cardiovascular: RSR Respiratory: clear Abdomen: soft, flat, tenderness, non-distended, decreased bowel sounds Extremities: no tenderness, no cyanosis Laboratory Tests Test 09/08/19 12:30 Sodium Level Pending Potassium Level Pending Chloride Level Pending Carbon Dioxide Level Pending Blood Urea Nitrogen Pending Creatinine Pending Estimat Glomerular Filtration Rate Pending Glucose Level Pending Calcium Level Pending Total Bilirubin Pending Aspartate Amino Transf (AST/SGOT) Pending Alanine Aminotransferase (ALT/SGPT) Pending Alkaline Phosphatase Pending Total Protein Pending Albumin Pending Globulin Pending Plan Problems: (1) Malfuctioning of Kock Pouch Assessment & Plan: AVSS labs okay tolerating diet comfortable Abdomen soft, healing nicely Imp. slowly improving Plan: Patient made n.p.o., IV fluids, CT ordered to rule out obstructive or infectious process, Busch placed as patient states she is having burning with urination and frequent urination and UA ordered. continue TPN and continuous drainage of Kock pouch Rob Cole Sep 08, 2019 12:59
[2019-09-08] MEDS ORDERED: Gastrograffin 30ml ORAL PRN (13:00)
[2019-09-08] MEDS ORDERED: Omnipaque-300 100ml vial INJ PRN (13:00)
[2019-09-08 13:15] LABS: HEMATOCRIT 43.8 % (37.0-47.0); HEMOGLOBIN 14.1 G/DL (12.0-16.0); MEAN CORPUSCULAR VOLUME 88 FL (80-99); PLATELET COUNT 543 K/UL (150-450); RED BLOOD COUNT 5.01 M/UL (4.20-5.40); RED CELL DISTRIBUTION WIDTH 15.8 % (11.6-14.8); WHITE BLOOD COUNT 17.8 K/UL (4.8-10.8)
[2019-09-08 13:16] LABS: ALANINE AMINOTRANSFERASE 28 U/L (12-78); ALBUMIN 2.9 G/DL (3.4-5.0); ALBUMIN/GLOBULIN RATIO 0.6 (1.0-2.7); ALKALINE PHOSPHATASE 227 U/L (46-116); ANION GAP 7 mmol/L (5-15); ASPARTATE AMINO TRANSFERASE 26 U/L (15-37); BILIRUBIN,TOTAL 0.7 MG/DL (0.2-1.0); BLOOD UREA NITROGEN 20 mg/dL (7-18); CALCIUM 8.8 MG/DL (8.5-10.1); CARBON DIOXIDE 30 MMOL/L (21-32); CHLORIDE 105 MMOL/L (98-107); POTASSIUM 4.1 MMOL/L (3.5-5.1); SODIUM 142 MMOL/L (136-145)
[2019-09-08] MEDS: Morphine Sulfate 2mg/ml Inj(IV/IM USE ONLY) IVP PRN ×2 (14:25→23:14)
[2019-09-08 16:00] VITALS: BP 133/86
[2019-09-08 16:18] LABS: APPEARANCE,URINE SLIGHTLY CLOUDY; BILIRUBIN, URINE NEGATIVE (NEGATIVE); GLUCOSE, URINE (UA) NEGATIVE (NEGATIVE); KETONES,URINE NEGATIVE (NEGATIVE); LEUKOCYTE ESTERASE ,URINE NEGATIVE (NEGATIVE); NITRITE,URINE NEGATIVE (NEGATIVE); PH,URINE 5 (4.5-8.0); PROTEIN,URINE 1+ (NEGATIVE); UROBILINOGEN,URINE NORMAL MG/DL (0.0-1.0)
[2019-09-08 16:24] LABS: COLOR,URINE YELLOW
--- NOTE | 2019-09-08 19:33 | Diagnostic Imaging Report ---
Indication: Abdominal pain Technique: Continuous helical transaxial imaging of the abdomen and pelvis was obtained from the lung bases to the pubic symphysis during intravenous contrast administration. Coronal 2-D reformats were also obtained. Study obtained in a Siemens sensation [address] Automatic Exposure Control was utilized. Total Dose length Product (DLP): 846.[address] Dose Index Volume (CTDIvol): 14.5 mGy Comparison: None Findings: Patient is status post recent abdominal surgery with skin lu still present within the ventral abdominal wall. There are surgical clips demonstrated just deep to this in association with small bowel. 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 There are multiple dilated loops of small bowel demonstrated throughout the abdomen as well as dilatation of the stomach. The most dilated portion of bowel appears to be the proximal jejunum. There may be a transition very distally near the pouch. This is not absolutely definitive in terms of the diagnosing small bowel obstruction but given the degree of proximal dilatation, small bowel obstruction is certainly possible and should be further evaluated. Oral contrast material was given but all of the contrast is within the stomach. There is no pneumatosis or free air. In addition there is a catheter entering a loop of jejunum on the left-sided abdomen. Please correlate clinically. The liver and spleen are unremarkable. There is no hydronephrosis. Kidneys are unremarkable. Gallbladder is moderately dilated. Pancreas is grossly unremarkable. There is no adrenal mass. There is mild posterior basilar atelectasis on the right. Degenerative disease of the intervertebral discs with narrowing and vacuum phenomena, endplate osteophyte formation demonstrated at L5-S1 and L1-2. Hypertrophied facets noted throughout the lumbar spine. Aorta is mildly calcified. IMPRESSION: Proximal small bowel dilatation with the some change in caliber compared to distal small bowel near the pouch in a patient with a continent ileostomy. Findings may be due to small bowel obstruction although would still consider possibility of ileus given recent surgery. Current evaluation is suboptimal on the current examination with no small bowel opacification. Recommend follow-up. Second catheter in the left side of the abdomen appears to be within a loop of small bowel and may be a jejunostomy. Correlate clinically. Atherosclerotic vascular disease Mild right basal atelectasis [facility] has communicated the preliminary results to the Emergency Department. Their findings are largely concordant with this report. The CT scanner at [facility] is accredited by the [employer] and the scans are performed using dose optimization techniques as appropriate to a performed exam including Automatic Exposure control.
[2019-09-08 20:00] VITALS: BP 131/73
[2019-09-08] MEDS: Dyna-Hex 2% Top Sol 2oz TOPIC SCH (20:28)
[2019-09-08] MEDS: FAT EMULSION 20% IV SCH (20:29)
[2019-09-08] MEDS: TPN IV SCH (20:29)
[2019-09-08] MEDS ORDERED: Cathflo Alteplase 2mg Inj INJ SCH (21:30)
[2019-09-08] MEDS: TraZODone 100mg tab ORAL SCH (21:58)
[2019-09-08] MEDS ORDERED: Piperacillin/Tazobactam 3.375 GM in NS 110 ML IVPB SCH (22:00)
[2019-09-09] VITALS: BP 138/81
[2019-09-09] MEDS: NovoLOG Insulin Flexpen SUBQ SCH ×4 (00:41→17:53)
[2019-09-09] MEDS: Morphine Sulfate 2mg/ml Inj(IV/IM USE ONLY) IVP PRN (03:22)
[2019-09-09 04:00] VITALS: BP 133/76
[2019-09-09 05:52] LABS: HEMATOCRIT 40.1 % (37.0-47.0); HEMOGLOBIN 13.2 G/DL (12.0-16.0); MEAN CORPUSCULAR VOLUME 87 FL (80-99); PLATELET COUNT 526 K/UL (150-450); RED BLOOD COUNT 4.59 M/UL (4.20-5.40); WHITE BLOOD COUNT 15.9 K/UL (4.8-10.8)
[2019-09-09 06:17] LABS: ALANINE AMINOTRANSFERASE 25 U/L (12-78); ALBUMIN 2.6 G/DL (3.4-5.0); ALBUMIN/GLOBULIN RATIO 0.5 (1.0-2.7); ALKALINE PHOSPHATASE 191 U/L (46-116); ANION GAP 5 mmol/L (5-15); ASPARTATE AMINO TRANSFERASE 25 U/L (15-37); BILIRUBIN,TOTAL 0.8 MG/DL (0.2-1.0); BLOOD UREA NITROGEN 23 mg/dL (7-18); CALCIUM 8.9 MG/DL (8.5-10.1); CARBON DIOXIDE 29 MMOL/L (21-32); CHLORIDE 106 MMOL/L (98-107); POTASSIUM 3.8 MMOL/L (3.5-5.1); SODIUM 140 MMOL/L (136-145)
[2019-09-09 08:00] VITALS: BP 130/70
[2019-09-09] MEDS: Piperacillin/Tazobactam 3.375 GM in NS 110 ML IVPB SCH ×2 (08:34→15:45)
[2019-09-09] MEDS: MYRBETRIQ 50 MG ORAL SCH (08:37)
[2019-09-09] MEDS: Pantoprazole Inj IVP SCH (08:37)
[2019-09-09] MEDS: BuPROPion SR 100mg tab ORAL SCH ×2 (08:37→17:45)
[2019-09-09] MEDS: Neosporin Oint 15gm TOPIC SCH ×4 (08:37→20:14)
[2019-09-09] MEDS: Flonase Nasal Inhaler 16gm NASAL SCH ×2 (08:37→17:45)
[2019-09-09] MEDS: Citalopram Hydrobromide 10mg Tab ORAL SCH (08:37)
[2019-09-09] MEDS ORDERED: Tubing IV Secondary IV ONE (10:39)
[2019-09-09] MEDS ORDERED: NS Irrig 1000ml ONE (10:39)
--- NOTE | 2019-09-09 11:02 | Consultation ---
History of Present Illness Present Illness HPI 68F wears eyeglasses prn [place] and has not had f/u optho yet doing well. glasses functional Allergies: Coded Allergies: ADHESIVE TAPE (Verified Adverse Reaction, Intermediate, Rash, 08/27/19) CLEAR TAPE Medication History Scheduled Aspirin* (Aspirin*), 81 MG ORAL DAILY, (Reported) Atorvastatin Calcium* (Atorvastatin Calcium*), 20 MG ORAL BEDTIME, (Reported) Bupropion Sr* (Wellbutrin Sr*), 200 MG ORAL TWICE A DAY, (Reported) Celecoxib* (Celebrex*), 100 MG ORAL TWICE A DAY, (Reported) Citalopram Hydrobromide* (Celexa*), 40 MG ORAL DAILY, (Reported) Cyanocobalamin (Vitamin B-12) (Liquid B-12), 1,000 MCG SL DAILY, (Reported) Ipratropium Purmela (Ipratropium Purmela), 1 SPR NS FOUR TIMES A DAY, (Reported) Mirabegron (Myrbetriq), 50 MG PO DAILY, (Reported) Pantoprazole* (Protonix*), 40 MG ORAL BEFORE BREAKFAST, (Reported) Trazodone* (Trazodone*), 200 MG ORAL BEDTIME, (Reported) Scheduled PRN Carisoprodol* (Carisoprodol*), 350 MG ORAL BEDTIME PRN for NECK SPASM, (Reported ) Hydrocodone Bit/Acetaminophen 5-325* ([place] 5-325*), 1 TAB ORAL Q6H PRN for For Pain, (Reported) Patient History Healthcare decision maker Resuscitation status Full Code Advanced Directive on File Review of Systems All Other Systems: negative except mentioned in HPI Physical Exam Physical Exam Narrative no conj injection eyeglasses okay nml eom intact Last 24 Hour Vital Signs Date Time Temp Pulse Resp B/P (MAP) Pulse Ox O2 Delivery O2 Flow Rate FiO2 09/09/19 09:00 Room Air 09/09/19 08:00 97.9 87 16 130/70 (90) 95 09/09/19 07:41 96 Room Air 21 09/09/19 04:00 98.0 90 18 133/76 (95) 95 09/09/19 00:00 97.8 98 20 138/81 (100) 96 09/08/19 21:00 Room Air 09/08/19 20:00 99.3 79 18 131/73 (92) 97 09/08/19 16:00 99.3 102 16 133/86 (102) 99 09/08/19 12:00 99.1 101 16 128/79 (95) 97 Intake and Output 09/08/19 09/09/19 19:00 07:00 Intake Total 1300 ml 900 ml Output Total 1610 ml 435 ml Balance -310 ml 465 ml Intake Oral 450 ml IV Total 850 ml 900 ml Output Urine Total 350 ml 425 ml Emesis 1050 ml Other 210 ml 10 ml Laboratory Tests Test 09/08/19 12:30 09/08/19 15:50 09/09/19 04:45 White Blood Count 17.8 K/UL (4.8-10.8) #H 15.9 K/UL (4.8-10.8) H Red Blood Count 5.01 M/UL (4.20-5.40) 4.59 M/UL (4.20-5.40) Hemoglobin 14.1 G/DL (12.0-16.0) 13.2 G/DL (12.0-16.0) Hematocrit 43.8 % (37.0-47.0) 40.1 % (37.0-47.0) Mean Corpuscular Volume 88 FL (80-99) 87 FL (80-99) Mean Corpuscular Hemoglobin 28.1 PG (27.0-31.0) 28.7 PG (27.0-31.0) Mean Corpuscular Hemoglobin Concent 32.1 G/DL (32.0-36.0) 32.9 G/DL (32.0-36.0) Red Cell Distribution Width 15.8 % (11.6-14.8) H 16.0 % (11.6-14.8) H Platelet Count 543 K/UL (150-450) #H 526 K/UL (150-450) H Mean Platelet Volume 6.7 FL (6.5-10.1) 6.2 FL (6.5-10.1) L Neutrophils (%) (Auto) % (45.0-75.0) % (45.0-75.0) Lymphocytes (%) (Auto) % (20.0-45.0) % (20.0-45.0) Monocytes (%) (Auto) % (1.0-10.0) % (1.0-10.0) Eosinophils (%) (Auto) % (0.0-3.0) % (0.0-3.0) Basophils (%) (Auto) % (0.0-2.0) % (0.0-2.0) Differential Total Cells Counted 100 100 Neutrophils % (Manual) 91 % (45-75) H 89 % (45-75) H Lymphocytes % (Manual) 4 % (20-45) L 4 % (20-45) L Monocytes % (Manual) 5 % (1-10) 5 % (1-10) Eosinophils % (Manual) 0 % (0-3) 2 % (0-3) Basophils % (Manual) 0 % (0-2) 0 % (0-2) Band Neutrophils 0 % (0-8) 0 % (0-8) Platelet Estimate Adequate Increased H Platelet Morphology Normal Normal Red Blood Cell Morphology Normal Sodium Level 142 MMOL/L (136-145) 140 MMOL/L (136-145) Potassium Level 4.1 MMOL/L (3.5-5.1) 3.8 MMOL/L (3.5-5.1) Chloride Level 105 MMOL/L (98-107) 106 MMOL/L (98-107) Carbon Dioxide Level 30 MMOL/L (21-32) 29 MMOL/L (21-32) Anion Gap 7 mmol/L (5-15) 5 mmol/L (5-15) Blood Urea Nitrogen 20 mg/dL (7-18) H 23 mg/dL (7-18) H Creatinine 1.0 MG/DL (0.55-1.30) 1.0 MG/DL (0.55-1.30) Estimat Glomerular Filtration Rate 55.1 mL/min (>60) 55.1 mL/min (>60) Glucose Level 142 MG/DL (74-106) H 131 MG/DL (74-106) H Calcium Level 8.8 MG/DL (8.5-10.1) 8.9 MG/DL (8.5-10.1) Total Bilirubin 0.7 MG/DL (0.2-1.0) 0.8 MG/DL (0.2-1.0) Aspartate Amino Transf (AST/SGOT) 26 U/L (15-37) 25 U/L (15-37) Alanine Aminotransferase (ALT/SGPT) 28 U/L (12-78) 25 U/L (12-78) Alkaline Phosphatase 227 U/L (46-116) H 191 U/L (46-116) H Total Protein 7.6 G/DL (6.4-8.2) 7.6 G/DL (6.4-8.2) Albumin 2.9 G/DL (3.4-5.0) L 2.6 G/DL (3.4-5.0) L Globulin 4.7 g/dL 5.0 g/dL Albumin/Globulin Ratio 0.6 (1.0-2.7) L 0.5 (1.0-2.7) L Urine Color Yellow Urine Appearance Slightly cloudy Urine pH 5 (4.5-8.0) Urine Specific [place] 1.025 (1.005-1.035) Urine Protein 1+ (NEGATIVE) H Urine Glucose (UA) Negative (NEGATIVE) Urine Ketones Negative (NEGATIVE) Urine Blood 3+ (NEGATIVE) H Urine Nitrite Negative (NEGATIVE) Urine Bilirubin Negative (NEGATIVE) Urine Urobilinogen Normal MG/DL (0.0-1.0) Urine Leukocyte Esterase Negative (NEGATIVE) Urine RBC 10-15 /HPF (0 - 2) H Urine WBC 0-2 /HPF (0 - 2) Urine Squamous Epithelial Cells Few /LPF (NONE/OCC) Urine Bacteria Moderate /HPF (NONE) H Anisocytosis 1+ Erythrocyte Sedimentation Rate Pending C-Reactive Protein, Quantitative 2.4 mg/dL (0.00-0.90) H Microbiology Date/Time Source Procedure Growth Status 09/08/19 15:50 Urine,Clean Catch Urine Culture - Preliminary NO GROWTH Resulted Height (Feet): 5 Height (Inches): 4.00 Weight (Pounds): 152 Medications Current Medications Medications (Trade) Dose Ordered Sig/Jori Route PRN Reason Start Time Stop Time Status Last Admin Dose Admin Acetaminophen (Tylenol) 1,000 mg Q4H PRN ORAL temp>100.2 or headache 08/29/19 14:32 09/28/19 14:31 09/01/19 00:59 Ascorbic Acid (Vitamin C) 500 mg Q4H PRN ORAL thick ileostomy effluent 09/06/19 16:00 10/06/19 15:59 Barium Sulfate (Readi-Cat 2) 450 ml NOW PRN ORAL Radiology Procedure 09/08/19 13:00 09/10/19 12:55 Bupropion HCl (Wellbutrin SR) 200 mg TWICE A DAY ORAL 08/29/19 18:00 09/26/19 17:59 09/09/19 08:37 Carisoprodol (Soma) 350 mg BEDTIME PRN ORAL NECK SPASM 08/29/19 14:32 09/28/19 14:31 09/09/19 00:58 Chlorhexidine Gluconate (Kahtryn-Hex 2%) 1 applic DAILY@2000 TOPIC 08/29/19 20:00 09/26/19 19:59 09/08/19 20:28 Citalopram Hydrobromide (celeXA) 40 mg DAILY ORAL 08/30/19 09:00 09/27/19 08:59 09/09/19 08:37 Dextrose 1,000 ml @ 0 mls/hr Q24H PRN IV PN interrupted or unavailable 08/29/19 07:15 09/28/19 07:14 Dextrose (Dextrose 50%) 25 ml Q30M PRN IV Hypoglycemia 08/29/19 14:45 09/28/19 07:14 Dextrose (Dextrose 50%) 50 ml Q30M PRN IV Hypoglycemia 08/29/19 14:45 09/28/19 07:14 Diatrizoate Meglum/ Diatrizoate Sod (Gastrografin) 30 ml NOW PRN ORAL Radiology Procedure 09/08/19 13:00 09/10/19 12:59 Diphenhydramine HCl (Benadryl) 25 mg Q6H PRN IVP Itching/Pruritis 08/29/19 14:33 09/28/19 14:32 Fat Emulsion Intravenous 144 ml/Amino Acids/ Electrolytes/ Dextrose 1,200 ml @ 50 mls/hr Q24H IV 09/06/19 20:00 10/06/19 19:59 09/08/19 20:29 Fluticasone Propionate (Flonase) 1 spray TWICE A DAY NASAL 08/29/19 18:00 09/26/19 17:59 09/09/19 08:37 Insulin Aspart (NovoLOG) Q6HR SUBQ 11/1/19 00:00 09/29/19 00:00 09/09/19 06:43 Iohexol (OMNIPAQUE-300 100ml) 100 ml NOW PRN INJ Radiology Procedure 09/08/19 13:00 09/10/19 12:55 Lorazepam (Ativan) 1 mg Q4H PRN SL Muscle Spasm 09/04/19 09:00 09/11/19 08:59 09/08/19 06:19 Morphine Sulfate (Morphine Sulfate) 2 mg Q4H PRN IVP For Pain 09/08/19 13:30 09/15/19 13:29 09/09/19 03:22 Neomycin/ Polymyxin/ Bacitracin (Neosporin Oint 15gm) 1 applic QID TOPIC 09/05/19 10:00 10/05/19 09:59 09/09/19 08:37 Ondansetron HCl (Zofran) 4 mg Q4H PRN IVP Nausea & Vomiting 08/29/19 14:34 09/28/19 14:33 09/09/19 03:36 Oxycodone/ Acetaminophen (Percocet 5-325) 1 tab Q4H PRN ORAL For Pain 09/05/19 09:20 09/12/19 09:19 09/08/19 08:23 Pantoprazole (Protonix) 40 mg DAILY IVP 08/30/19 09:00 09/28/19 08:59 09/09/19 08:37 Patient Own Medication (Patient's Own Med) 1 ea DAILY ORAL 09/07/19 09:00 10/07/19 08:59 09/09/19 08:37 Phytonadione (Vitamin K) 10 mg ONCE A WEEK SUBQ 08/30/19 09:00 09/29/19 08:59 09/06/19 09:54 Piperacillin Sod/ Tazobactam Sod 3.375 gm/Sodium Chloride 110 ml @ 27.5 mls/hr Q8H IVPB 09/09/19 08:00 09/16/19 07:59 09/09/19 08:34 Sodium Chloride 1,000 ml @ 50 mls/hr Q20H IV 09/08/19 13:00 10/08/19 12:59 09/09/19 09:32 Trazodone HCl (Desyrel) 200 mg BEDTIME ORAL 08/29/19 21:00 09/26/19 20:59 09/08/19 21:58 Assessment/Plan Assessment/Plan: If you have any of the following eye problems, dont wait for your next appointment visit your eye doctor as soon as possible: Decreased vision Draining or redness of the eye Eye pain Double vision Floaters (tiny specks that appear to float before your eyes) Circles (halos) around lights Flashes of light Individuals who develop diabetes mellitus type 1 should be examined by an celebrity manager 5 years after disease onset and at least yearly thereafter.13, 14 Individuals who develop diabetes mellitus type 2 should be examined at the time of diagnosis and at least yearly thereafter.15 Women with type 1 or type 2 diabetes should receive a comprehensive eye examination before conception and then early in the first trimester of . Recommended intervals for subsequent examinations depend upon the level of retinopathy.16-18 Adults with no signs or risk factors for eye disease should receive a baseline comprehensive eye evaluation at age 40.4 Individuals without risk factors aged 40 to 54 should be examined by an celebrity manager every 2 to 4 years. Individuals without risk factors aged 55 to 64 should be examined by an celebrity manager every 1 to 3 years.4, 5 Individuals without risk factors 65 years old or older should have an examination performed by an celebrity manager every 1 to 2 years as the incidence of unrecognized ocular disease increases with age.4, 5 The frequency of ocular examinations in the presence of acute or chronic disease will vary widely with intervals ranging from hours to several months, depending on the risks involved, response to treatment, and potential for the disease to progress. Any individual at higher risk for developing disease, based on ocular and medical history, family history, age, or race should have periodic examinations determined by the particular risks, even if no symptoms are present. A routine comprehensive annual adult eye examination in individuals under the age of 40 unnecessarily escalates the cost of eye care and is not indicated except as described above. This is a complementary visit for patient for informational care purposes Suraj Awad MD Sep 09, 2019 11:02
[2019-09-09 12:00] VITALS: BP 126/73
[2019-09-09] MEDS: Hydromorphone 0.5mg/0.5ml inj IVP PRN ×3 (12:05→22:02)
--- NOTE | 2019-09-09 13:06 | Surgery Progress Note ---
Surgery Progress Note Subjective Additional Comments Leukocytosis. CT noted. Patient still with abdominal cramping. No nausea vomiting. Urinary discomfort improved with Busch. Discussed findings with patient. Still covering for Dr. Meadows who will be back later this evening to resume care Objective Last 24 Hour Vital Signs Date Time Temp Pulse Resp B/P (MAP) Pulse Ox O2 Delivery O2 Flow Rate FiO2 09/09/19 12:00 99.1 90 16 126/73 (90) 94 09/09/19 09:00 Room Air 09/09/19 08:00 97.9 87 16 130/70 (90) 95 09/09/19 07:41 96 Room Air 21 09/09/19 04:00 98.0 90 18 133/76 (95) 95 09/09/19 00:00 97.8 98 20 138/81 (100) 96 09/08/19 21:00 Room Air 09/08/19 20:00 99.3 79 18 131/73 (92) 97 09/08/19 16:00 99.3 102 16 133/86 (102) 99 I&O Intake and Output 09/08/19 09/09/19 19:00 07:00 Intake Total 1300 ml 900 ml Output Total 1610 ml 435 ml Balance -310 ml 465 ml Intake Oral 450 ml IV Total 850 ml 900 ml Output Urine Total 350 ml 425 ml Emesis 1050 ml Other 210 ml 10 ml Dressing: dry Wound: clean Cardiovascular: RSR Respiratory: clear Abdomen: soft, non-tender, present bowel sounds Extremities: no edema, no tenderness, no cyanosis Laboratory Tests Test 09/08/19 15:50 09/09/19 04:45 Urine Color Yellow Urine Appearance Slightly cloudy Urine pH 5 (4.5-8.0) Urine Specific [place] 1.025 (1.005-1.035) Urine Protein 1+ (NEGATIVE) H Urine Glucose (UA) Negative (NEGATIVE) Urine Ketones Negative (NEGATIVE) Urine Blood 3+ (NEGATIVE) H Urine Nitrite Negative (NEGATIVE) Urine Bilirubin Negative (NEGATIVE) Urine Urobilinogen Normal MG/DL (0.0-1.0) Urine Leukocyte Esterase Negative (NEGATIVE) Urine RBC 10-15 /HPF (0 - 2) H Urine WBC 0-2 /HPF (0 - 2) Urine Squamous Epithelial Cells Few /LPF (NONE/OCC) Urine Bacteria Moderate /HPF (NONE) H White Blood Count 15.9 K/UL (4.8-10.8) H Red Blood Count 4.59 M/UL (4.20-5.40) Hemoglobin 13.2 G/DL (12.0-16.0) Hematocrit 40.1 % (37.0-47.0) Mean Corpuscular Volume 87 FL (80-99) Mean Corpuscular Hemoglobin 28.7 PG (27.0-31.0) Mean Corpuscular Hemoglobin Concent 32.9 G/DL (32.0-36.0) Red Cell Distribution Width 16.0 % (11.6-14.8) H Platelet Count 526 K/UL (150-450) H Mean Platelet Volume 6.2 FL (6.5-10.1) L Neutrophils (%) (Auto) % (45.0-75.0) Lymphocytes (%) (Auto) % (20.0-45.0) Monocytes (%) (Auto) % (1.0-10.0) Eosinophils (%) (Auto) % (0.0-3.0) Basophils (%) (Auto) % (0.0-2.0) Differential Total Cells Counted 100 Neutrophils % (Manual) 89 % (45-75) H Lymphocytes % (Manual) 4 % (20-45) L Monocytes % (Manual) 5 % (1-10) Eosinophils % (Manual) 2 % (0-3) Basophils % (Manual) 0 % (0-2) Band Neutrophils 0 % (0-8) Platelet Estimate Increased H Platelet Morphology Normal Anisocytosis 1+ Erythrocyte Sedimentation Rate 46 MM/HR (0-30) H Sodium Level 140 MMOL/L (136-145) Potassium Level 3.8 MMOL/L (3.5-5.1) Chloride Level 106 MMOL/L (98-107) Carbon Dioxide Level 29 MMOL/L (21-32) Anion Gap 5 mmol/L (5-15) Blood Urea Nitrogen 23 mg/dL (7-18) H Creatinine 1.0 MG/DL (0.55-1.30) Estimat Glomerular Filtration Rate 55.1 mL/min (>60) Glucose Level 131 MG/DL (74-106) H Calcium Level 8.9 MG/DL (8.5-10.1) Total Bilirubin 0.8 MG/DL (0.2-1.0) Aspartate Amino Transf (AST/SGOT) 25 U/L (15-37) Alanine Aminotransferase (ALT/SGPT) 25 U/L (12-78) Alkaline Phosphatase 191 U/L (46-116) H C-Reactive Protein, Quantitative 2.4 mg/dL (0.00-0.90) H Total Protein 7.6 G/DL (6.4-8.2) Albumin 2.6 G/DL (3.4-5.0) L Globulin 5.0 g/dL Albumin/Globulin Ratio 0.5 (1.0-2.7) L Plan Problems: (1) Malfuctioning of Kock Pouch Assessment & Plan: AVSS labs okay tolerating diet comfortable Abdomen soft, healing nicely Imp. slowly improving; ileus vs obstruction Plan: NPO IV fluids IV Abx Rob Francis AM Sep 09, 2019 13:06
[2019-09-09 16:00] VITALS: BP 131/71
[2019-09-09 20:00] VITALS: BP 140/80
[2019-09-09] MEDS: FAT EMULSION 20% IV SCH (20:09)
[2019-09-09] MEDS: TPN IV SCH (20:09)
[2019-09-09] MEDS: Dyna-Hex 2% Top Sol 2oz TOPIC SCH (20:13)
[2019-09-09] MEDS: TraZODone 100mg tab ORAL SCH (20:14)
[2019-09-09] MEDS: Acetaminophen 650mg/20.3ml ORAL PRN (20:39)
[2019-09-10] VITALS: BP 110/68
[2019-09-10] MEDS: Piperacillin/Tazobactam 3.375 GM in NS 110 ML IVPB SCH ×4 (00:02→23:24)
[2019-09-10] MEDS: NovoLOG Insulin Flexpen SUBQ SCH ×4 (00:08→18:00)
[2019-09-10] MEDS: Hydromorphone 0.5mg/0.5ml inj IVP PRN ×4 (03:22→23:28)
[2019-09-10 03:54] VITALS: BP 120/69
[2019-09-10 07:01] LABS: BASOPHILS % (AUTO) 0.6 % (0.0-2.0); EOSINOPHILS % (AUTO) 2.1 % (0.0-3.0); HEMATOCRIT 35.4 % (37.0-47.0); HEMOGLOBIN 11.7 G/DL (12.0-16.0); LYMPHOCYTES % (AUTO) 12.6 % (20.0-45.0); MEAN CORPUSCULAR VOLUME 87 FL (80-99); NEUTROPHILS % (AUTO) 75.7 % (45.0-75.0); PLATELET COUNT 440 K/UL (150-450); RED BLOOD COUNT 4.05 M/UL (4.20-5.40); RED CELL DISTRIBUTION WIDTH 15.8 % (11.6-14.8); WHITE BLOOD COUNT 9.2 K/UL (4.8-10.8)
[2019-09-10 07:14] LABS: ALANINE AMINOTRANSFERASE 26 U/L (12-78); ALBUMIN 2.2 G/DL (3.4-5.0); ALBUMIN/GLOBULIN RATIO 0.5 (1.0-2.7); ALKALINE PHOSPHATASE 176 U/L (46-116); ANION GAP 3 mmol/L (5-15); ASPARTATE AMINO TRANSFERASE 24 U/L (15-37); BILIRUBIN,TOTAL 0.6 MG/DL (0.2-1.0); BLOOD UREA NITROGEN 23 mg/dL (7-18); CALCIUM 7.9 MG/DL (8.5-10.1); CARBON DIOXIDE 31 MMOL/L (21-32); CHLORIDE 107 MMOL/L (98-107); CREATININE 0.9 MG/DL (0.55-1.30); POTASSIUM 3.6 MMOL/L (3.5-5.1); SODIUM 141 MMOL/L (136-145)
[2019-09-10 08:00] VITALS: BP 106/78
[2019-09-10] MEDS: Pantoprazole Inj IVP SCH (08:36)
[2019-09-10] MEDS: BuPROPion SR 100mg tab ORAL SCH ×2 (08:36→17:29)
[2019-09-10] MEDS: MYRBETRIQ 50 MG ORAL SCH (08:36)
[2019-09-10] MEDS: Neosporin Oint 15gm TOPIC SCH ×4 (08:36→20:34)
[2019-09-10] MEDS: Flonase Nasal Inhaler 16gm NASAL SCH ×2 (08:36→17:29)
[2019-09-10] MEDS: Citalopram Hydrobromide 10mg Tab ORAL SCH (08:37)
[2019-09-10] MEDS ORDERED: NS Irrig 1000ml ONE (09:28)
--- NOTE | 2019-09-10 11:59 | Pulmonology Progress Note ---
Assessment/Plan Assessment/Plan ASSESSMENT Atelectasis S/p Brantley pouch revision Ileus/SBO Multiple medical problems PLAN Continue pulmonary regimen and hygiene IV abx Mobilize and ambulate early Will follow Leucocytosis has resolved. Subjective Interval Events: CT scan reviewed. Leukocytosis has resolved Constitutional: Reports: no symptoms HEENT: Repors: no symptoms Respiratory: Reports: no symptoms Cardiovascular: Reports: no symptoms Gastrointestinal/Abdominal: Reports: no symptoms Genitourinary: Reports: no symptoms Neurologic: Reports: no symptoms Allergies: Coded Allergies: ADHESIVE TAPE (Verified Adverse Reaction, Intermediate, Rash, 08/27/19) CLEAR TAPE Objective Last 24 Hour Vital Signs Date Time Temp Pulse Resp B/P (MAP) Pulse Ox O2 Delivery O2 Flow Rate FiO2 09/10/19 09:00 Room Air 09/10/19 08:00 98.1 84 18 106/78 (87) 96 09/10/19 03:54 98.2 82 18 120/69 (86) 09/10/19 00:00 98.4 77 18 110/68 (82) 98 09/09/19 21:00 Room Air 09/09/19 20:00 98.8 87 18 140/80 (100) 09/09/19 19:43 94 Room Air 21 09/09/19 19:43 82 18 94 Room Air 21 09/09/19 16:00 99.1 85 16 131/71 (91) 95 09/09/19 12:00 99.1 90 16 126/73 (90) 94 Intake and Output 09/09/19 09/10/19 19:00 07:00 Intake Total 1442.5 ml 1315.0 ml Output Total 830 ml 970 ml Balance 612.5 ml 345.0 ml Intake Oral 5 ml IV Total 1442.5 ml 1310.0 ml Output Urine Total 400 ml 450 ml Other 430 ml 520 ml General Appearance: no acute distress HEENT: normocephalic Respiratory/Chest: chest wall non-tender, lungs clear Cardiovascular: normal peripheral pulses, normal rate Microbiology Date/Time Source Procedure Growth Status 09/08/19 15:50 Urine,Clean Catch Urine Culture - Preliminary NO GROWTH AFTER 24 HOURS Resulted Laboratory Tests 09/10/19 06:38: White Blood Count 9.2, Red Blood Count 4.05L, Hemoglobin 11.7L, Hematocrit 35.4L , Mean Corpuscular Volume 87, Mean Corpuscular Hemoglobin 28.9, Mean Corpuscular Hemoglobin Concent 33.0, Red Cell Distribution Width 15.8H, Platelet Count 440, Mean Platelet Volume 6.6, Neutrophils (%) (Auto) 75.7H, Lymphocytes (%) (Auto) 12.6L, Monocytes (%) (Auto) 9.0, Eosinophils (%) (Auto) 2.1, Basophils (%) (Auto) 0.6, Sodium Level 141, Potassium Level 3.6, Chloride Level 107, Carbon Dioxide Level 31, Anion Gap 3L, Blood Urea Nitrogen 23H, Creatinine 0.9, Estimat Glomerular Filtration Rate > 60, Glucose Level 115H, Calcium Level 7.9L, Total Bilirubin 0.6, Aspartate Amino Transf (AST/SGOT) 24, Alanine Aminotransferase (ALT/SGPT) 26, Alkaline Phosphatase 176H, Total Protein 6.7, Albumin 2.2L, Globulin 4.5, Albumin/Globulin Ratio 0.5L Current Medications Medications (Trade) Dose Ordered Sig/Jori Route PRN Reason Start Time Stop Time Status Last Admin Dose Admin Acetaminophen (Tylenol) 1,000 mg Q4H PRN ORAL temp>100.2 or headache 08/29/19 14:32 09/28/19 14:31 09/09/19 20:39 Ascorbic Acid (Vitamin C) 500 mg Q4H PRN ORAL thick ileostomy effluent 09/06/19 16:00 10/06/19 15:59 Barium Sulfate (Readi-Cat 2) 450 ml NOW PRN ORAL Radiology Procedure 09/08/19 13:00 09/10/19 12:55 Bupropion HCl (Wellbutrin SR) 200 mg TWICE A DAY ORAL 08/29/19 18:00 09/26/19 17:59 09/10/19 08:36 Carisoprodol (Soma) 350 mg BEDTIME PRN ORAL NECK SPASM 08/29/19 14:32 09/28/19 14:31 09/09/19 20:38 Chlorhexidine Gluconate (Kathryn-Hex 2%) 1 applic DAILY@1999 TOPIC 08/29/19 20:00 09/26/19 19:59 09/09/19 20:13 Citalopram Hydrobromide (celeXA) 40 mg DAILY ORAL 08/30/19 09:00 09/27/19 08:59 09/10/19 08:37 Dextrose 1,000 ml @ 0 mls/hr Q24H PRN IV PN interrupted or unavailable 08/29/19 07:15 09/28/19 07:14 Dextrose (Dextrose 50%) 25 ml Q30M PRN IV Hypoglycemia 08/29/19 14:45 09/28/19 07:14 Dextrose (Dextrose 50%) 50 ml Q30M PRN IV Hypoglycemia 08/29/19 14:45 09/28/19 07:14 Diatrizoate Meglum/ Diatrizoate Sod (Gastrografin) 30 ml NOW PRN ORAL Radiology Procedure 09/08/19 13:00 09/10/19 12:59 Diphenhydramine HCl (Benadryl) 25 mg Q6H PRN IVP Itching/Pruritis 08/29/19 14:33 09/28/19 14:32 Fat Emulsion Intravenous 144 ml/Amino Acids/ Electrolytes/ Dextrose 1,200 ml @ 50 mls/hr Q24H IV 09/06/19 20:00 10/06/19 19:59 09/09/19 20:09 Fluticasone Propionate (Flonase) 1 spray TWICE A DAY NASAL 08/29/19 18:00 09/26/19 17:59 09/10/19 08:36 Hydromorphone HCl (Dilaudid) 0.5 mg Q4H PRN IVP Severe Pain (Pain Scale 7-10) 09/09/19 11:30 09/16/19 11:29 09/10/19 08:37 Insulin Aspart (NovoLOG) Q6HR SUBQ 08/30/19 00:00 09/29/19 00:00 09/10/19 00:08 Iohexol (OMNIPAQUE-300 100ml) 100 ml NOW PRN INJ Radiology Procedure 09/08/19 13:00 09/10/19 12:55 Lorazepam (Ativan) 1 mg Q4H PRN SL Muscle Spasm 09/04/19 09:00 09/11/19 08:59 09/08/19 06:19 Neomycin/ Polymyxin/ Bacitracin (Neosporin Oint 15gm) 1 applic QID TOPIC 09/05/19 10:00 10/05/19 09:59 09/10/19 08:36 Ondansetron HCl (Zofran) 4 mg Q4H PRN IVP Nausea & Vomiting 08/29/19 14:34 09/28/19 14:33 09/09/19 03:36 Pantoprazole (Protonix) 40 mg DAILY IVP 08/30/19 09:00 09/28/19 08:59 09/10/19 08:36 Patient Own Medication (Patient's Own Med) 1 ea DAILY ORAL 09/07/19 09:00 10/07/19 08:59 09/10/19 08:36 Phytonadione (Vitamin K) 10 mg ONCE A WEEK SUBQ 08/30/19 09:00 09/29/19 08:59 09/06/19 09:54 Piperacillin Sod/ Tazobactam Sod 3.375 gm/Sodium Chloride 110 ml @ 27.5 mls/hr Q8H IVPB 09/09/19 08:00 09/16/19 07:59 09/10/19 08:37 Sodium Chloride 1,000 ml @ 50 mls/hr Q20H IV 09/08/19 13:00 10/08/19 12:59 09/10/19 05:24 Trazodone HCl (Desyrel) 200 mg BEDTIME ORAL 08/29/19 21:00 09/26/19 20:59 09/09/19 20:14 Shree Pope MD Sep 10, 2019 11:59
[2019-09-10 12:00] VITALS: BP 102/55
--- NOTE | 2019-09-10 14:23 | Diagnostic Imaging Report ---
Indication: Abdominal pain Comparison: 09/08/2019 Single view of the abdomen obtained Findings: Distended small bowel again demonstrated within the abdomen without significant change. Skin lu noted in the ventral abdomen. Surgical sutures noted in the pelvis. There is a catheter projected over the right lower quadrant. Busch catheter also noted. IMPRESSION: No change from the prior examination. Distended small bowel loops appear stable. Correlate clinically.
[2019-09-10] MEDS: LORazepam 1mg tab SL PRN ×2 (15:12→21:46)
[2019-09-10 16:00] VITALS: BP 101/65
--- NOTE | 2019-09-10 16:50 | General Progress Note ---
Progress Note Progress Note AVSS had abdominal pain with no Kock pouch ileo output and WBC 17,[address] showed SBO with gastrostomy very distal and dilated stomach Now on Zosyn Decreased abd pain Abdomen soft, only slight distention. Balloon of gastrostomy partially deflated and tube withdrawn to limit about 5cm out from prior position Ileo catheter flushed with small amount enteric output WBC 9200 Hgb 11.7 Platelets down 440,000 BUN up 23 Cr 0.9 Urine 850 Gastrsotomy 950 Kock pouch ileo nil but now draining Imp; SBO, ? resolving Malposition of gastrostomy - relocated Plan: Increase IV fluids Increase TPN back to full needs infusion rate f/u labs, I&O Lalo Meadows MD Sep 10, 2019 16:50
[2019-09-10 20:00] VITALS: BP 107/57
[2019-09-10] MEDS: FAT EMULSION 20% IV SCH (20:02)
[2019-09-10] MEDS: TPN IV SCH (20:02)
[2019-09-10] MEDS: Dyna-Hex 2% Top Sol 2oz TOPIC SCH (20:10)
[2019-09-10] MEDS: TraZODone 100mg tab ORAL SCH (20:33)
[2019-09-11] VITALS: BP 119/67
[2019-09-11] MEDS: Acetaminophen 650mg/20.3ml ORAL PRN ×2 (00:35→22:18)
[2019-09-11 04:00] VITALS: BP 103/67
[2019-09-11] MEDS: NovoLOG Insulin Flexpen SUBQ SCH ×4 (06:00→17:28)
[2019-09-11 06:18] LABS: BASOPHILS % (AUTO) 0.9 % (0.0-2.0); HEMATOCRIT 33.1 % (37.0-47.0); HEMOGLOBIN 10.8 G/DL (12.0-16.0); LYMPHOCYTES % (AUTO) 15.7 % (20.0-45.0); MEAN CORPUSCULAR VOLUME 88 FL (80-99); MONOCYTES % (AUTO) 8.3 % (1.0-10.0); NEUTROPHILS % (AUTO) 72.1 % (45.0-75.0); PLATELET COUNT 385 K/UL (150-450); RED BLOOD COUNT 3.75 M/UL (4.20-5.40); RED CELL DISTRIBUTION WIDTH 15.6 % (11.6-14.8); WHITE BLOOD COUNT 7.3 K/UL (4.8-10.8)
[2019-09-11 06:37] LABS: ALANINE AMINOTRANSFERASE 23 U/L (12-78); ALBUMIN 2.1 G/DL (3.4-5.0); ALBUMIN/GLOBULIN RATIO 0.5 (1.0-2.7); ALKALINE PHOSPHATASE 170 U/L (46-116); ANION GAP 9 mmol/L (5-15); ASPARTATE AMINO TRANSFERASE 21 U/L (15-37); BILIRUBIN,TOTAL 0.6 MG/DL (0.2-1.0); BLOOD UREA NITROGEN 18 mg/dL (7-18); CALCIUM 8.1 MG/DL (8.5-10.1); CARBON DIOXIDE 25 MMOL/L (21-32); CHLORIDE 107 MMOL/L (98-107); CREATININE 0.8 MG/DL (0.55-1.30); POTASSIUM 3.6 MMOL/L (3.5-5.1); SODIUM 141 MMOL/L (136-145)
--- NOTE | 2019-09-11 07:44 | Pulmonology Progress Note ---
Assessment/Plan Assessment/Plan ASSESSMENT Atelectasis S/p Brantley pouch revision Ileus/SBO Multiple medical problems PLAN Continue pulmonary regimen and hygiene IV abx Mobilize and ambulate early Will follow Leucocytosis has resolved. Subjective Interval Events: leucocytosis resdolved Constitutional: Reports: no symptoms HEENT: Repors: no symptoms Respiratory: Reports: no symptoms Genitourinary: Reports: no symptoms Neurologic: Reports: no symptoms Allergies: Coded Allergies: ADHESIVE TAPE (Verified Adverse Reaction, Intermediate, Rash, 08/27/19) CLEAR TAPE Objective Last 24 Hour Vital Signs Date Time Temp Pulse Resp B/P (MAP) Pulse Ox O2 Delivery O2 Flow Rate FiO2 09/11/19 04:00 99.2 88 17 103/67 (79) 96 09/11/19 01:05 99.0 09/11/19 00:00 100.0 92 16 119/67 (84) 09/10/19 21:21 Room Air 09/10/19 20:05 96 Room Air 21 09/10/19 20:00 99.3 90 17 107/57 (74) 94 09/10/19 16:00 98.0 85 16 101/65 (77) 98 09/10/19 13:50 97.9 09/10/19 12:00 97.9 88 18 102/55 (71) 95 09/10/19 09:00 Room Air 09/10/19 08:00 98.1 84 18 106/78 (87) 96 Intake and Output 09/10/19 09/11/19 19:00 07:00 Intake Total 610.0 ml 1480.0 ml Output Total 820 ml 720 ml Balance -210.0 ml 760.0 ml Intake Oral 20 ml IV Total 610.0 ml 1460.0 ml Output Urine Total 375 ml 400 ml Other 445 ml 320 ml General Appearance: no acute distress HEENT: normocephalic Respiratory/Chest: chest wall non-tender Cardiovascular: normal peripheral pulses Microbiology Date/Time Source Procedure Growth Status 09/08/19 15:50 Urine,Clean Catch Urine Culture - Final NO GROWTH AFTER 48 HOURS Complete Laboratory Tests 09/11/19 05:05: White Blood Count 7.3, Red Blood Count 3.75L, Hemoglobin 10.8L, Hematocrit 33.1L , Mean Corpuscular Volume 88, Mean Corpuscular Hemoglobin 28.9, Mean Corpuscular Hemoglobin Concent 32.7, Red Cell Distribution Width 15.6H, Platelet Count 385, Mean Platelet Volume 6.3L, Neutrophils (%) (Auto) 72.1, Lymphocytes (%) (Auto) 15.7L, Monocytes (%) (Auto) 8.3, Eosinophils (%) (Auto) 3.0, Basophils (%) (Auto) 0.9, Sodium Level 141, Potassium Level 3.6, Chloride Level 107, Carbon Dioxide Level 25, Anion Gap 9, Blood Urea Nitrogen 18, Creatinine 0.8, Estimat Glomerular Filtration Rate > 60, Glucose Level 99, Calcium Level 8.1L, Total Bilirubin 0.6, Aspartate Amino Transf (AST/SGOT) 21, Alanine Aminotransferase (ALT/SGPT) 23, Alkaline Phosphatase 170H, Total Protein 6.5, Albumin 2.1L, Globulin 4.4, Albumin/Globulin Ratio 0.5L Current Medications Medications (Trade) Dose Ordered Sig/Jori Route PRN Reason Start Time Stop Time Status Last Admin Dose Admin Acetaminophen (Tylenol) 1,000 mg Q4H PRN ORAL temp>100.2 or headache 08/29/19 14:32 09/28/19 14:31 09/11/19 00:35 Ascorbic Acid (Vitamin C) 500 mg Q4H PRN ORAL thick ileostomy effluent 09/06/19 16:00 10/06/19 15:59 Bupropion HCl (Wellbutrin SR) 200 mg TWICE A DAY ORAL 08/29/19 18:00 09/26/19 17:59 09/10/19 17:29 Carisoprodol (Soma) 350 mg BEDTIME PRN ORAL NECK SPASM 08/29/19 14:32 09/28/19 14:31 09/09/19 20:38 Chlorhexidine Gluconate (Kathryn-Hex 2%) 1 applic DAILY@2000 TOPIC 08/29/19 20:00 09/26/19 19:59 09/10/19 20:10 Citalopram Hydrobromide (celeXA) 40 mg DAILY ORAL 08/30/19 09:00 09/27/19 08:59 09/10/19 08:37 Dextrose 1,000 ml @ 0 mls/hr Q24H PRN IV PN interrupted or unavailable 08/29/19 07:15 09/28/19 07:14 Dextrose (Dextrose 50%) 25 ml Q30M PRN IV Hypoglycemia 08/29/19 14:45 09/28/19 07:14 Dextrose (Dextrose 50%) 50 ml Q30M PRN IV Hypoglycemia 08/29/19 14:45 09/28/19 07:14 Diphenhydramine HCl (Benadryl) 25 mg Q6H PRN IVP Itching/Pruritis 08/29/19 14:33 09/28/19 14:32 Fat Emulsion Intravenous 144 ml/Amino Acids/ Electrolytes/ Dextrose 1,200 ml @ 50 mls/hr Q24H IV 09/06/19 20:00 09/11/19 19:59 09/10/19 20:02 Fat Emulsion Intravenous 216 ml/Amino Acids/ Electrolytes/ Dextrose 1,800 ml @ 75 mls/hr Q24H IV 09/11/19 20:00 10/11/19 19:59 Fluticasone Propionate (Flonase) 1 spray TWICE A DAY NASAL 08/29/19 18:00 09/26/19 17:59 09/10/19 17:29 Hydromorphone HCl (Dilaudid) 0.5 mg Q4H PRN IVP Severe Pain (Pain Scale 7-10) 09/09/19 11:30 09/16/19 11:29 09/10/19 23:28 Insulin Aspart (NovoLOG) Q6HR SUBQ 08/30/19 00:00 09/29/19 00:00 09/10/19 12:01 Lorazepam (Ativan) 1 mg Q4H PRN SL Muscle Spasm 09/10/19 17:00 09/17/19 16:59 09/10/19 21:46 Neomycin/ Polymyxin/ Bacitracin (Neosporin Oint 15gm) 1 applic QID TOPIC 09/05/19 10:00 10/05/19 09:59 09/10/19 20:34 Ondansetron HCl (Zofran) 4 mg Q4H PRN IVP Nausea & Vomiting 08/29/19 14:34 09/28/19 14:33 09/09/19 03:36 Pantoprazole (Protonix) 40 mg DAILY IVP 08/30/19 09:00 09/28/19 08:59 09/10/19 08:36 Patient Own Medication (Patient's Own Med) 1 ea DAILY ORAL 09/07/19 09:00 10/07/19 08:59 09/10/19 08:36 Phytonadione (Vitamin K) 10 mg ONCE A WEEK SUBQ 08/30/19 09:00 09/29/19 08:59 09/06/19 09:54 Piperacillin Sod/ Tazobactam Sod 3.375 gm/Sodium Chloride 110 ml @ 27.5 mls/hr Q8H IVPB 09/09/19 08:00 09/16/19 07:59 09/10/19 23:24 Sodium Chloride 1,000 ml @ 50 mls/hr Q20H IV 09/11/19 20:00 10/11/19 19:59 Sodium Chloride 1,000 ml @ 100 mls/hr Q10H IV 09/10/19 17:00 09/11/19 19:59 09/11/19 03:03 Trazodone HCl (Desyrel) 200 mg BEDTIME ORAL 08/29/19 21:00 09/26/19 20:59 09/10/19 20:33 Shree Pope MD Sep 11, 2019 07:44
[2019-09-11 08:00] VITALS: BP 117/70
[2019-09-11] MEDS: Piperacillin/Tazobactam 3.375 GM in NS 110 ML IVPB SCH ×3 (08:34→23:58)
[2019-09-11] MEDS: Pantoprazole Inj IVP SCH (08:35)
[2019-09-11] MEDS: BuPROPion SR 100mg tab ORAL SCH ×2 (08:35→17:20)
[2019-09-11] MEDS: Flonase Nasal Inhaler 16gm NASAL SCH ×2 (08:35→17:20)
[2019-09-11] MEDS: Neosporin Oint 15gm TOPIC SCH ×4 (08:35→20:23)
[2019-09-11] MEDS: Citalopram Hydrobromide 10mg Tab ORAL SCH (08:35)
[2019-09-11] MEDS: MYRBETRIQ 50 MG ORAL SCH (08:35)
[2019-09-11] MEDS: Hydromorphone 0.5mg/0.5ml inj IVP PRN ×2 (11:12→22:13)
[2019-09-11 12:00] VITALS: BP 132/80
--- NOTE | 2019-09-11 12:43 | General Progress Note ---
Progress Note Progress Note T max 100 Feels okay not much abd pain but no ileo output Abdomen soft, mild distention, non-tender Urine 775 Kock pouch ileo nil Gastrostomy 740 WBC 7300 BUN down 18 albumin 2.1 Imp. small bowel obstruction Plan; continue npo, TPN, gastrostomy to drainage STAT Kock pouch pouchogram XRay and retrograde Small bowel series Lalo Meadows MD Sep 11, 2019 12:43
[2019-09-11] MEDS: LORazepam 1mg tab SL PRN (15:28)
--- NOTE | 2019-09-11 15:42 | Diagnostic Imaging Report ---
INDICATION: Abdominal pain. Dilated bowel. Brantley Pouch continent ileostomy TECHNIQUE: Through the indwelling catheter, water-soluble contrast was administered via gravity and fluoroscopically imaged in multiple projections. COMPARISON: 09/10/[address] 09/08/2019 FINDINGS: Total fluoroscopic time 199 seconds. Total number of fluoroscopic images obtained: 20 images. Multiple fluoroscopic images demonstrate the continent ileostomy catheter well situated within the pouch. The pouch appears mature and well formed. Catheter is in good position. As the pouch distended more, the patient complained of the lower abdominal pain. For 3 to 4 minutes, there was no contrast reflux into more proximal small bowel. Eventually, small amount of contrast was seen crossing the anastomosis into proximal small bowel which appear diffusely dilated. She did have pain Contrast was instilled into the pouch. We were not able to reflux more contrast proximally. Postdrainage film showed near-complete drainage of contrast material from the pouch and is otherwise unremarkable. IMPRESSION: Some delay in contrast reflux through the anastomosis between small bowel and the Kock pouch demonstrated. Passage of contrast through this anastomosis eventually demonstrated. Findings indicate that there is not a complete obstruction at the anastomosis. However the possibility of a stricture or partial obstruction is not excludable. Findings were discussed with Dr. Lalo Meadows via telephone.
[2019-09-11 16:00] VITALS: BP 126/68
[2019-09-11 20:00] VITALS: BP 116/65
[2019-09-11] MEDS: Dyna-Hex 2% Top Sol 2oz TOPIC SCH (20:23)
[2019-09-11] MEDS: TraZODone 100mg tab ORAL SCH (20:24)
[2019-09-11] MEDS: Fat Emulsion Iv 20% 216 ML in Tpn 1,584 ML IV SCH (20:35)
[2019-09-12] VITALS: BP 109/63
[2019-09-12] MEDS: NovoLOG Insulin Flexpen SUBQ SCH ×4 (00:01→16:59)
[2019-09-12 04:00] VITALS: BP 123/67
[2019-09-12] MEDS: LORazepam 1mg tab SL PRN ×2 (06:12→23:37)
[2019-09-12 06:27] LABS: EOSINOPHILS % (AUTO) 2.8 % (0.0-3.0); HEMOGLOBIN 11.6 G/DL (12.0-16.0); MEAN CORPUSCULAR VOLUME 87 FL (80-99); NEUTROPHILS % (AUTO) 76.3 % (45.0-75.0); PLATELET COUNT 417 K/UL (150-450); RED BLOOD COUNT 4.01 M/UL (4.20-5.40); RED CELL DISTRIBUTION WIDTH 15.4 % (11.6-14.8)
[2019-09-12 07:01] LABS: ALANINE AMINOTRANSFERASE 27 U/L (12-78); ALBUMIN 2.3 G/DL (3.4-5.0); ALBUMIN/GLOBULIN RATIO 0.5 (1.0-2.7); ALKALINE PHOSPHATASE 179 U/L (46-116); ANION GAP 6 mmol/L (5-15); ASPARTATE AMINO TRANSFERASE 16 U/L (15-37); BILIRUBIN,TOTAL 0.5 MG/DL (0.2-1.0); BLOOD UREA NITROGEN 13 mg/dL (7-18); CALCIUM 8.3 MG/DL (8.5-10.1); CARBON DIOXIDE 28 MMOL/L (21-32); CHLORIDE 103 MMOL/L (98-107); CREATININE 0.9 MG/DL (0.55-1.30); PHOSPHORUS 2.9 MG/DL (2.5-4.9); POTASSIUM 3.3 MMOL/L (3.5-5.1); SODIUM 137 MMOL/L (136-145)
[2019-09-12 08:00] VITALS: BP 141/77
[2019-09-12] MEDS: Flonase Nasal Inhaler 16gm NASAL SCH ×2 (09:16→17:00)
[2019-09-12] MEDS: Piperacillin/Tazobactam 3.375 GM in NS 110 ML IVPB SCH ×3 (09:16→23:37)
[2019-09-12] MEDS: BuPROPion SR 100mg tab ORAL SCH ×2 (09:16→17:00)
[2019-09-12] MEDS: Pantoprazole Inj IVP SCH (09:16)
[2019-09-12] MEDS: Citalopram Hydrobromide 10mg Tab ORAL SCH (09:16)
[2019-09-12] MEDS: Neosporin Oint 15gm TOPIC SCH ×4 (09:16→21:45)
[2019-09-12] MEDS: Hydromorphone 0.5mg/0.5ml inj IVP PRN (09:17)
[2019-09-12] MEDS: MYRBETRIQ 50 MG ORAL SCH (09:18)
--- NOTE | 2019-09-12 10:12 | Pulmonology Progress Note ---
Assessment/Plan Assessment/Plan ASSESSMENT Atelectasis S/p Brantley pouch revision Ileus/SBO Multiple medical problems PLAN Continue pulmonary regimen and hygiene IV abx Mobilize and ambulate early Will follow Leucocytosis has resolved. Subjective Interval Events: low grade fever Constitutional: Reports: no symptoms HEENT: Repors: no symptoms Respiratory: Reports: no symptoms Cardiovascular: Reports: no symptoms Allergies: Coded Allergies: ADHESIVE TAPE (Verified Adverse Reaction, Intermediate, Rash, 08/27/19) CLEAR TAPE Objective Last 24 Hour Vital Signs Date Time Temp Pulse Resp B/P (MAP) Pulse Ox O2 Delivery O2 Flow Rate FiO2 09/12/19 04:00 98.1 88 16 123/67 (85) 93 09/12/19 00:00 98.6 81 17 109/63 (78) 92 09/11/19 22:48 99.2 09/11/19 21:00 Room Air 09/11/19 20:00 100.8 87 18 116/65 (82) 91 09/11/19 16:00 100.0 86 18 126/68 (87) 96 09/11/19 12:00 98.2 86 18 132/80 (97) 94 09/11/19 11:42 98.2 Intake and Output 09/11/19 09/12/19 19:00 07:00 Intake Total 590 ml 1225.0 ml Output Total 2195 ml 1415 ml Balance -1605 ml -190.0 ml Intake Oral 40 ml 40 ml IV Total 550 ml 1185.0 ml Output Urine Total 1150 ml 900 ml Other 1045 ml 515 ml General Appearance: no acute distress HEENT: normocephalic Respiratory/Chest: chest wall non-tender, lungs clear Cardiovascular: normal peripheral pulses Abdomen: non distended Laboratory Tests 09/12/19 05:52: White Blood Count 7.0, Red Blood Count 4.01L, Hemoglobin 11.6L, Hematocrit 35.0L , Mean Corpuscular Volume 87, Mean Corpuscular Hemoglobin 29.1, Mean Corpuscular Hemoglobin Concent 33.3, Red Cell Distribution Width 15.4H, Platelet Count 417, Mean Platelet Volume 6.2L, Neutrophils (%) (Auto) 76.3H, Lymphocytes (%) (Auto) 12.0L, Monocytes (%) (Auto) 8.0, Eosinophils (%) (Auto) 2.8, Basophils (%) (Auto) 1.0, Sodium Level 137, Potassium Level 3.3L, Chloride Level 103, Carbon Dioxide Level 28, Anion Gap 6, Blood Urea Nitrogen 13, Creatinine 0.9, Estimat Glomerular Filtration Rate > 60, Glucose Level 120H, Calcium Level 8.3L, Phosphorus Level 2.9, Magnesium Level 1.7L, Total Bilirubin 0.5, Aspartate Amino Transf (AST/SGOT) 16, Alanine Aminotransferase (ALT/SGPT) 27, Alkaline Phosphatase 179H, Total Protein 7.0, Albumin 2.3L, Globulin 4.7, Albumin/Globulin Ratio 0.5L Current Medications Medications (Trade) Dose Ordered Sig/Jori Route PRN Reason Start Time Stop Time Status Last Admin Dose Admin Acetaminophen (Tylenol) 1,000 mg Q4H PRN ORAL temp>100.2 or headache 08/29/19 14:32 09/28/19 14:31 09/11/19 22:18 Ascorbic Acid (Vitamin C) 500 mg Q4H PRN ORAL thick ileostomy effluent 09/06/19 16:00 10/06/19 15:59 Bupropion HCl (Wellbutrin SR) 200 mg TWICE A DAY ORAL 08/29/19 18:00 09/26/19 17:59 09/12/19 09:16 Carisoprodol (Soma) 350 mg BEDTIME PRN ORAL NECK SPASM 08/29/19 14:32 09/28/19 14:31 09/09/19 20:38 Chlorhexidine Gluconate (Kathryn-Hex 2%) 1 applic DAILY@2000 TOPIC 08/29/19 20:00 09/26/19 19:59 09/11/19 20:23 Citalopram Hydrobromide (celeXA) 40 mg DAILY ORAL 08/30/19 09:00 09/27/19 08:59 09/12/19 09:16 Dextrose 1,000 ml @ 0 mls/hr Q24H PRN IV PN interrupted or unavailable 08/29/19 07:15 09/28/19 07:14 Dextrose (Dextrose 50%) 25 ml Q30M PRN IV Hypoglycemia 08/29/19 14:45 09/28/19 07:14 Dextrose (Dextrose 50%) 50 ml Q30M PRN IV Hypoglycemia 08/29/19 14:45 09/28/19 07:14 Diphenhydramine HCl (Benadryl) 25 mg Q6H PRN IVP Itching/Pruritis 08/29/19 14:33 09/28/19 14:32 Fat Emulsion Intravenous 216 ml/Amino Acids/ Electrolytes/ Dextrose 1,800 ml @ 75 mls/hr Q24H IV 09/11/19 20:00 10/11/19 19:59 09/11/19 20:35 Fluticasone Propionate (Flonase) 1 spray TWICE A DAY NASAL 08/29/19 18:00 09/26/19 17:59 09/12/19 09:16 Hydromorphone HCl (Dilaudid) 0.5 mg Q4H PRN IVP Severe Pain (Pain Scale 7-10) 09/09/19 11:30 09/16/19 11:29 09/12/19 09:17 Insulin Aspart (NovoLOG) Q6HR SUBQ 08/30/19 00:00 09/29/19 00:00 09/12/19 06:06 Lorazepam (Ativan) 1 mg Q4H PRN SL Muscle Spasm 09/10/19 17:00 09/17/19 16:59 09/12/19 06:12 Neomycin/ Polymyxin/ Bacitracin (Neosporin Oint 15gm) 1 applic QID TOPIC 09/05/19 10:00 10/05/19 09:59 09/12/19 09:16 Ondansetron HCl (Zofran) 4 mg Q4H PRN IVP Nausea & Vomiting 08/29/19 14:34 09/28/19 14:33 09/09/19 03:36 Pantoprazole (Protonix) 40 mg DAILY IVP 08/30/19 09:00 09/28/19 08:59 09/12/19 09:16 Patient Own Medication (Patient's Own Med) 1 ea DAILY ORAL 09/07/19 09:00 10/07/19 08:59 09/12/19 09:18 Phytonadione (Vitamin K) 10 mg ONCE A WEEK SUBQ 08/30/19 09:00 09/29/19 08:59 09/06/19 09:54 Piperacillin Sod/ Tazobactam Sod 3.375 gm/Sodium Chloride 110 ml @ 27.5 mls/hr Q8H IVPB 09/09/19 08:00 09/16/19 07:59 09/12/19 09:16 Sodium Chloride 1,000 ml @ 25 mls/hr Q24H IV 09/11/19 20:00 10/11/19 19:59 09/11/19 20:24 Trazodone HCl (Desyrel) 200 mg BEDTIME ORAL 08/29/19 21:00 09/26/19 20:59 09/11/19 20:24 Shree Ppoe MD Sep 12, 2019 10:12
[2019-09-12 12:00] VITALS: BP 100/65
--- NOTE | 2019-09-12 12:48 | General Progress Note ---
Progress Note Progress Note T to 100.8 Feels okay except intermittent abd pain requiring dilaudid IV, and refuses to have urinary Busch removed because of hyperactive bladder and high volume output while on TPN and IV fluids Abdomen soft, non-tender Urine 0 12 hours overnight: gastrostomy nil Kock pouch ileo 220 [id number] Hgb 11.76 K 3.3 BUN down 13 Cr 0.9 Mg 1.7 albumin 2.3 Imp. Partial small bowel obstruction at afferent bowel/Kock pouch junction, improved since pouchogram XRay Plan; Gastrostomy 3:3 protocol maintain continuous drainage of Kock pouch increase K and Mg blood C&S for fever; urine C&S now continue Lalo Park MD Sep 12, 2019 12:48
[2019-09-12] MEDS: D5 1/2NS w/KCl 40meq 1000ml 1,000 ML IV SCH (14:43)
[2019-09-12 16:00] VITALS: BP 130/69
[2019-09-12 20:00] VITALS: BP_SYST 117; BP_SYST 125; BP_DIAS 66; BP_DIAS 68
[2019-09-12] MEDS: Fat Emulsion Iv 20% 216 ML in Tpn 1,584 ML IV SCH (21:25)
[2019-09-12] MEDS: TraZODone 100mg tab ORAL SCH (21:26)
[2019-09-12] MEDS: Dyna-Hex 2% Top Sol 2oz TOPIC SCH (21:26)
[2019-09-12] MEDS ORDERED: NS Irrig 1000ml ONE (21:34)
[2019-09-13] VITALS: BP_SYST 117; BP_SYST 125; BP_DIAS 66; BP_DIAS 68
[2019-09-13] MEDS: NovoLOG Insulin Flexpen SUBQ SCH ×5 (00:38→23:45)
[2019-09-13 04:00] VITALS: BP 122/63
[2019-09-13 06:01] LABS: EOSINOPHILS % (AUTO) 2.5 % (0.0-3.0); HEMATOCRIT 35.4 % (37.0-47.0); HEMOGLOBIN 11.6 G/DL (12.0-16.0); LYMPHOCYTES % (AUTO) 16.5 % (20.0-45.0); MEAN CORPUSCULAR VOLUME 87 FL (80-99); MONOCYTES % (AUTO) 9.6 % (1.0-10.0); NEUTROPHILS % (AUTO) 70.4 % (45.0-75.0); PLATELET COUNT 422 K/UL (150-450); RED BLOOD COUNT 4.05 M/UL (4.20-5.40); RED CELL DISTRIBUTION WIDTH 15.7 % (11.6-14.8); WHITE BLOOD COUNT 7.6 K/UL (4.8-10.8)
[2019-09-13 06:41] LABS: ALANINE AMINOTRANSFERASE 26 U/L (12-78); ALBUMIN 2.4 G/DL (3.4-5.0); ALBUMIN/GLOBULIN RATIO 0.5 (1.0-2.7); ALKALINE PHOSPHATASE 172 U/L (46-116); ANION GAP 3 mmol/L (5-15); ASPARTATE AMINO TRANSFERASE 18 U/L (15-37); BLOOD UREA NITROGEN 12 mg/dL (7-18); CALCIUM 8.3 MG/DL (8.5-10.1); CARBON DIOXIDE 28 MMOL/L (21-32); CHLORIDE 103 MMOL/L (98-107); CREATININE 0.8 MG/DL (0.55-1.30); POTASSIUM 3.8 MMOL/L (3.5-5.1); SODIUM 134 MMOL/L (136-145)
[2019-09-13 06:51] LABS: BILIRUBIN,TOTAL 0.4 MG/DL (0.2-1.0)
[2019-09-13 08:00] VITALS: BP 122/73
[2019-09-13] MEDS: Citalopram Hydrobromide 10mg Tab ORAL SCH (09:17)
[2019-09-13] MEDS: Flonase Nasal Inhaler 16gm NASAL SCH ×2 (09:18→17:03)
[2019-09-13] MEDS: Piperacillin/Tazobactam 3.375 GM in NS 110 ML IVPB SCH ×3 (09:18→23:34)
[2019-09-13] MEDS: Pantoprazole Inj IVP SCH (09:18)
[2019-09-13] MEDS: Neosporin Oint 15gm TOPIC SCH ×4 (09:21→20:58)
[2019-09-13] MEDS: Phytonadione 10 mg/mL 1ml amp SUBQ SCH (09:23)
[2019-09-13] MEDS: BuPROPion SR 100mg tab ORAL SCH ×2 (09:32→17:03)
[2019-09-13] MEDS: LORazepam 1mg tab SL PRN ×2 (09:32→23:34)
[2019-09-13] MEDS: MYRBETRIQ 50 MG ORAL SCH (09:32)
[2019-09-13 12:00] VITALS: BP 116/67
--- NOTE | 2019-09-13 12:24 | General Progress Note ---
Progress Note Progress Note Afebrile Tolerating gastrostomy 3:3 protocol but having more pain Abdomen slightly distended, tympanitic Gastrostomy 1075 Kock pouch ileo only 125 labs all satisf - albumin coming up but still very low 2.4 Imp: Persistent partial small bowel obstruction R/O angulation/kink at afferent bowel-Kock pouch junction Plan: Resume continuous drainage of gastrostomy continue npo and TPN may need return to OR to relieve the obstruction Lalo Meadows MD Sep 13, 2019 12:24
[2019-09-13] MEDS: D5 1/2NS w/KCl 40meq 1000ml 1,000 ML IV SCH (12:52)
[2019-09-13] MEDS: Hydromorphone 0.5mg/0.5ml inj IVP PRN ×2 (12:53→17:12)
--- NOTE | 2019-09-13 14:12 | Pulmonology Progress Note ---
Assessment/Plan Assessment/Plan ASSESSMENT Atelectasis S/p Brantley pouch revision Ileus/SBO Multiple medical problems PLAN Continue pulmonary regimen and hygiene IV abx Mobilize and ambulate early Will follow Leucocytosis has resolved. Subjective Interval Events: None new Constitutional: Reports: no symptoms HEENT: Repors: no symptoms Respiratory: Reports: no symptoms Cardiovascular: Reports: no symptoms Gastrointestinal/Abdominal: Reports: no symptoms Allergies: Coded Allergies: ADHESIVE TAPE (Verified Adverse Reaction, Intermediate, Rash, 08/27/19) CLEAR TAPE Objective Last 24 Hour Vital Signs Date Time Temp Pulse Resp B/P (MAP) Pulse Ox O2 Delivery O2 Flow Rate FiO2 09/13/19 13:23 98.9 09/13/19 12:00 98.4 79 15 116/67 (83) 94 09/13/19 09:00 Room Air 09/13/19 08:00 98.9 78 14 122/73 (89) 95 09/13/19 04:00 98.9 78 17 122/63 (82) 95 09/13/19 00:00 99.1 83 18 117/68 (84) 96 09/12/19 21:00 Room Air 09/12/19 20:00 98.7 85 18 125/66 (85) 96 09/12/19 16:00 99.4 90 18 130/69 (89) 97 Intake and Output 09/12/19 09/13/19 19:00 07:00 Intake Total 885 ml 875.0 ml Output Total 1465 ml 1830 ml Balance -580 ml -955.0 ml Intake Oral 60 ml 20 ml IV Total 825 ml 855.0 ml Output Urine Total 600 ml 1500 ml Other 865 ml 330 ml General Appearance: no acute distress HEENT: normocephalic Respiratory/Chest: chest wall non-tender, lungs clear Cardiovascular: normal peripheral pulses Abdomen: normal bowel sounds Microbiology Date/Time Source Procedure Growth Status 09/12/19 13:30 Indwelling Cath Urine Culture - Preliminary Resulted Laboratory Tests 09/13/19 05:00: White Blood Count 7.6, Red Blood Count 4.05L, Hemoglobin 11.6L, Hematocrit 35.4L , Mean Corpuscular Volume 87, Mean Corpuscular Hemoglobin 28.7, Mean Corpuscular Hemoglobin Concent 32.8, Red Cell Distribution Width 15.7H, Platelet Count 422, Mean Platelet Volume 6.3L, Neutrophils (%) (Auto) 70.4, Lymphocytes (%) (Auto) 16.5L, Monocytes (%) (Auto) 9.6, Eosinophils (%) (Auto) 2.5, Basophils (%) (Auto) 1.0, Sodium Level 134L, Potassium Level 3.8, Chloride Level 103, Carbon Dioxide Level 28, Anion Gap 3L, Blood Urea Nitrogen 12, Creatinine 0.8, Estimat Glomerular Filtration Rate > 60, Glucose Level 85, Calcium Level 8.3L, Magnesium Level 2.2, Total Bilirubin 0.4, Aspartate Amino Transf (AST/SGOT) 18, Alanine Aminotransferase (ALT/SGPT) 26, Alkaline Phosphatase 172H, Total Protein 7.0, Albumin 2.4L, Globulin 4.6, Albumin/ Globulin Ratio 0.5L Current Medications Medications (Trade) Dose Ordered Sig/Jori Route PRN Reason Start Time Stop Time Status Last Admin Dose Admin Acetaminophen (Tylenol) 1,000 mg Q4H PRN ORAL temp>100.2 or headache 08/29/19 14:32 09/28/19 14:31 09/11/19 22:18 Ascorbic Acid (Vitamin C) 500 mg Q4H PRN ORAL thick ileostomy effluent 09/06/19 16:00 10/06/19 15:59 Bupropion HCl (Wellbutrin SR) 200 mg TWICE A DAY ORAL 08/29/19 18:00 09/26/19 17:59 09/13/19 09:32 Carisoprodol (Soma) 350 mg BEDTIME PRN ORAL NECK SPASM 08/29/19 14:32 09/28/19 14:31 09/09/19 20:38 Chlorhexidine Gluconate (Kathryn-Hex 2%) 1 applic DAILY@2000 TOPIC 08/29/19 20:00 09/26/19 19:59 09/12/19 21:26 Citalopram Hydrobromide (celeXA) 40 mg DAILY ORAL 08/30/19 09:00 09/27/19 08:59 09/13/19 09:17 Dextrose 1,000 ml @ 0 mls/hr Q24H PRN IV PN interrupted or unavailable 08/29/19 07:15 09/28/19 07:14 Dextrose (Dextrose 50%) 25 ml Q30M PRN IV Hypoglycemia 08/29/19 14:45 09/28/19 07:14 Dextrose (Dextrose 50%) 50 ml Q30M PRN IV Hypoglycemia 08/29/19 14:45 09/28/19 07:14 Dextrose/ Electrolytes 1,000 ml @ 50 mls/hr Q20H IV 09/12/19 14:00 10/12/19 13:59 09/13/19 12:52 Diphenhydramine HCl (Benadryl) 25 mg Q6H PRN IVP Itching/Pruritis 08/29/19 14:33 09/28/19 14:32 Fat Emulsion Intravenous 216 ml/Amino Acids/ Electrolytes/ Dextrose 1,800 ml @ 75 mls/hr Q24H IV 09/11/19 20:00 10/11/19 19:59 09/12/19 21:25 Fluticasone Propionate (Flonase) 1 spray TWICE A DAY NASAL 08/29/19 18:00 09/26/19 17:59 09/13/19 09:18 Hydromorphone HCl (Dilaudid) 0.2 mg Q4H PRN IVP Severe Pain (Pain Scale 7-10) 09/12/19 15:30 09/16/19 11:29 09/13/19 12:53 Insulin Aspart (NovoLOG) Q6HR SUBQ 08/30/19 00:00 09/29/19 00:00 09/13/19 12:36 Lorazepam (Ativan) 1 mg Q4H PRN SL Muscle Spasm 09/10/19 17:00 09/17/19 16:59 09/13/19 09:32 Neomycin/ Polymyxin/ Bacitracin (Neosporin Oint 15gm) 1 applic QID TOPIC 09/05/19 10:00 10/05/19 09:59 09/13/19 12:59 Ondansetron HCl (Zofran) 4 mg Q4H PRN IVP Nausea & Vomiting 08/29/19 14:34 09/28/19 14:33 09/09/19 03:36 Pantoprazole (Protonix) 40 mg DAILY IVP 08/30/19 09:00 09/28/19 08:59 09/13/19 09:18 Patient Own Medication (Patient's Own Med) 1 ea DAILY ORAL 09/07/19 09:00 10/07/19 08:59 09/13/19 09:32 Phytonadione (Vitamin K) 10 mg ONCE A WEEK SUBQ 08/30/19 09:00 09/29/19 08:59 09/13/19 09:23 Piperacillin Sod/ Tazobactam Sod 3.375 gm/Sodium Chloride 110 ml @ 27.5 mls/hr Q8H IVPB 09/09/19 08:00 09/16/19 07:59 09/13/19 09:18 Trazodone HCl (Desyrel) 200 mg BEDTIME ORAL 08/29/19 21:00 09/26/19 20:59 09/12/19 21:26 Shree Pope MD Sep 13, 2019 14:12
[2019-09-13 16:00] VITALS: BP 119/75
[2019-09-13 20:00] VITALS: BP 124/74
[2019-09-13] MEDS: Dyna-Hex 2% Top Sol 2oz TOPIC SCH (20:58)
[2019-09-13] MEDS: TraZODone 100mg tab ORAL SCH (20:58)
[2019-09-13] MEDS: Fat Emulsion Iv 20% 216 ML in Tpn 1,584 ML IV SCH (21:00)
[2019-09-14] VITALS: BP_SYST 100; BP_SYST 123; BP_DIAS 59; BP_DIAS 66
[2019-09-14 04:00] VITALS: BP 107/53
[2019-09-14] MEDS: Hydromorphone 0.5mg/0.5ml inj IVP PRN ×4 (06:09→23:53)
[2019-09-14 06:11] LABS: BASOPHILS % (AUTO) 0.7 % (0.0-2.0); HEMOGLOBIN 12.6 G/DL (12.0-16.0); LYMPHOCYTES % (AUTO) 14.9 % (20.0-45.0); MEAN CORPUSCULAR VOLUME 88 FL (80-99); MONOCYTES % (AUTO) 7.5 % (1.0-10.0); NEUTROPHILS % (AUTO) 72.8 % (45.0-75.0); PLATELET COUNT 415 K/UL (150-450); RED BLOOD COUNT 4.41 M/UL (4.20-5.40); RED CELL DISTRIBUTION WIDTH 15.4 % (11.6-14.8); WHITE BLOOD COUNT 7.5 K/UL (4.8-10.8)
[2019-09-14] MEDS: NovoLOG Insulin Flexpen SUBQ SCH ×3 (06:37→18:36)
[2019-09-14] MEDS: D5 1/2NS w/KCl 40meq 1000ml 1,000 ML IV SCH (06:39)
[2019-09-14 06:42] LABS: ALANINE AMINOTRANSFERASE 31 U/L (12-78); ALBUMIN 2.6 G/DL (3.4-5.0); ALBUMIN/GLOBULIN RATIO 0.5 (1.0-2.7); ALKALINE PHOSPHATASE 200 U/L (46-116); ANION GAP 7 mmol/L (5-15); ASPARTATE AMINO TRANSFERASE 23 U/L (15-37); BILIRUBIN,TOTAL 0.4 MG/DL (0.2-1.0); BLOOD UREA NITROGEN 12 mg/dL (7-18); CALCIUM 8.8 MG/DL (8.5-10.1); CARBON DIOXIDE 29 MMOL/L (21-32); CHLORIDE 106 MMOL/L (98-107); CREATININE 0.9 MG/DL (0.55-1.30); POTASSIUM 4.8 MMOL/L (3.5-5.1); SODIUM 141 MMOL/L (136-145)
--- NOTE | 2019-09-14 07:02 | Pulmonology Progress Note ---
Assessment/Plan Assessment/Plan ASSESSMENT Atelectasis S/p Brantley pouch revision Ileus/SBO Multiple medical problems PLAN Continue pulmonary regimen and hygiene IV abx Mobilize and ambulate early Will follow Leucocytosis has resolved. Possible return to OR planned Subjective Interval Events: labs normal; no new issues reported Constitutional: Reports: no symptoms HEENT: Repors: no symptoms Respiratory: Reports: no symptoms Cardiovascular: Reports: no symptoms Gastrointestinal/Abdominal: Reports: no symptoms Genitourinary: Reports: no symptoms Allergies: Coded Allergies: ADHESIVE TAPE (Verified Adverse Reaction, Intermediate, Rash, 08/27/19) CLEAR TAPE Objective Last 24 Hour Vital Signs Date Time Temp Pulse Resp B/P (MAP) Pulse Ox O2 Delivery O2 Flow Rate FiO2 09/14/19 04:00 97.6 85 18 107/53 (71) 96 09/14/19 00:00 98.4 85 17 123/66 (85) 94 09/13/19 21:00 Room Air 09/13/19 20:00 98.6 82 20 124/74 (91) 96 09/13/19 17:42 99.2 09/13/19 16:00 99.2 82 17 119/75 (90) 93 09/13/19 12:00 98.4 79 15 116/67 (83) 94 09/13/19 09:00 Room Air 09/13/19 08:00 98.9 78 14 122/73 (89) 95 Intake and Output 09/13/19 09/14/19 18:59 06:59 Intake Total 1510 ml 1660.0 ml Output Total 1315 ml 1250 ml Balance 195 ml 410.0 ml Intake Oral 60 ml IV Total 1450 ml 1660.0 ml Output Urine Total 1100 ml 1250 ml Other 215 ml # Voids 3 General Appearance: no acute distress HEENT: normocephalic Respiratory/Chest: chest wall non-tender, lungs clear Cardiovascular: normal peripheral pulses Abdomen: normal bowel sounds Microbiology Date/Time Source Procedure Growth Status 09/12/19 13:30 Indwelling Cath Urine Culture - Preliminary NO GROWTH AFTER 24 HOURS Resulted Laboratory Tests 09/14/19 04:40: White Blood Count 7.5, Red Blood Count 4.41, Hemoglobin 12.6, Hematocrit 39.0, Mean Corpuscular Volume 88, Mean Corpuscular Hemoglobin 28.6, Mean Corpuscular Hemoglobin Concent 32.3, Red Cell Distribution Width 15.4H, Platelet Count 415, Mean Platelet Volume 6.3L, Neutrophils (%) (Auto) 72.8, Lymphocytes (%) (Auto) 14.9L, Monocytes (%) (Auto) 7.5, Eosinophils (%) (Auto) 4.0H, Basophils (%) ( Auto) 0.7, Sodium Level 141, Potassium Level 4.8, Chloride Level 106, Carbon Dioxide Level 29, Anion Gap 7, Blood Urea Nitrogen 12, Creatinine 0.9, Estimat Glomerular Filtration Rate > 60, Glucose Level 119H, Calcium Level 8.8, Total Bilirubin 0.4, Aspartate Amino Transf (AST/SGOT) 23, Alanine Aminotransferase ( ALT/SGPT) 31, Alkaline Phosphatase 200H, Total Protein 7.6, Albumin 2.6L, Globulin 5.0, Albumin/Globulin Ratio 0.5L Current Medications Medications (Trade) Dose Ordered Sig/Jori Route PRN Reason Start Time Stop Time Status Last Admin Dose Admin Acetaminophen (Tylenol) 1,000 mg Q4H PRN ORAL temp>100.2 or headache 08/29/19 14:32 09/28/19 14:31 09/11/19 22:18 Ascorbic Acid (Vitamin C) 500 mg Q4H PRN ORAL thick ileostomy effluent 09/06/19 16:00 10/06/19 15:59 Bupropion HCl (Wellbutrin SR) 200 mg TWICE A DAY ORAL 08/29/19 18:00 09/26/19 17:59 09/13/19 17:03 Carisoprodol (Soma) 350 mg BEDTIME PRN ORAL NECK SPASM 08/29/19 14:32 09/28/19 14:31 09/09/19 20:38 Chlorhexidine Gluconate (Kathryn-Hex 2%) 1 applic DAILY@2000 TOPIC 08/29/19 20:00 09/26/19 19:59 09/13/19 20:58 Citalopram Hydrobromide (celeXA) 40 mg DAILY ORAL 08/30/19 09:00 09/27/19 08:59 09/13/19 09:17 Dextrose 1,000 ml @ 0 mls/hr Q24H PRN IV PN interrupted or unavailable 08/29/19 07:15 09/28/19 07:14 Dextrose (Dextrose 50%) 25 ml Q30M PRN IV Hypoglycemia 08/29/19 14:45 09/28/19 07:14 Dextrose (Dextrose 50%) 50 ml Q30M PRN IV Hypoglycemia 08/29/19 14:45 09/28/19 07:14 Dextrose/ Electrolytes 1,000 ml @ 50 mls/hr Q20H IV 09/12/19 14:00 10/12/19 13:59 09/14/19 06:39 Diphenhydramine HCl (Benadryl) 25 mg Q6H PRN IVP Itching/Pruritis 08/29/19 14:33 09/28/19 14:32 Fat Emulsion Intravenous 216 ml/Amino Acids/ Electrolytes/ Dextrose 1,800 ml @ 75 mls/hr Q24H IV 09/11/19 20:00 10/11/19 19:59 09/13/19 21:00 Fluticasone Propionate (Flonase) 1 spray TWICE A DAY NASAL 08/29/19 18:00 09/26/19 17:59 09/13/19 17:03 Hydromorphone HCl (Dilaudid) 0.2 mg Q4H PRN IVP Severe Pain (Pain Scale 7-10) 09/12/19 15:30 09/16/19 11:29 09/14/19 06:09 Insulin Aspart (NovoLOG) Q6HR SUBQ 08/30/19 00:00 09/29/19 00:00 09/14/19 06:37 Lorazepam (Ativan) 1 mg Q4H PRN SL Muscle Spasm 09/10/19 17:00 09/17/19 16:59 09/13/19 23:34 Neomycin/ Polymyxin/ Bacitracin (Neosporin Oint 15gm) 1 applic QID TOPIC 09/05/19 10:00 10/05/19 09:59 09/13/19 20:58 Ondansetron HCl (Zofran) 4 mg Q4H PRN IVP Nausea & Vomiting 08/29/19 14:34 09/28/19 14:33 09/09/19 03:36 Pantoprazole (Protonix) 40 mg DAILY IVP 08/30/19 09:00 09/28/19 08:59 09/13/19 09:18 Patient Own Medication (Patient's Own Med) 1 ea DAILY ORAL 09/07/19 09:00 10/07/19 08:59 09/13/19 09:32 Phytonadione (Vitamin K) 10 mg ONCE A WEEK SUBQ 08/30/19 09:00 09/29/19 08:59 09/13/19 09:23 Piperacillin Sod/ Tazobactam Sod 3.375 gm/Sodium Chloride 110 ml @ 27.5 mls/hr Q8H IVPB 09/09/19 08:00 09/16/19 07:59 09/13/19 23:34 Trazodone HCl (Desyrel) 200 mg BEDTIME ORAL 08/29/19 21:00 09/26/19 20:59 09/13/19 20:58 Shree Pope MD Sep 14, 2019 07:02
[2019-09-14 08:00] VITALS: BP 108/59
[2019-09-14] MEDS: Flonase Nasal Inhaler 16gm NASAL SCH ×2 (08:41→17:30)
[2019-09-14] MEDS: Citalopram Hydrobromide 10mg Tab ORAL SCH (08:45)
[2019-09-14] MEDS: BuPROPion SR 100mg tab ORAL SCH ×2 (08:45→17:30)
[2019-09-14] MEDS: Pantoprazole Inj IVP SCH (08:46)
[2019-09-14] MEDS: Neosporin Oint 15gm TOPIC SCH ×4 (08:46→21:29)
[2019-09-14] MEDS: MYRBETRIQ 50 MG ORAL SCH (08:46)
[2019-09-14] MEDS: Piperacillin/Tazobactam 3.375 GM in NS 110 ML IVPB SCH ×3 (08:58→23:54)
--- NOTE | 2019-09-14 09:45 | General Progress Note ---
Progress Note Progress Note [facility]SS Feels okay. Abdomen soft, non-distended, mild LUQ tenderness inferior to gastrostomy site. Incision clean, stoma healing nicely Urine 2350 Gastrostomy [id number] Kock pouch ileo 45+78=112 WBC 7500 Hgb 12.6 Albumin up 2.76 Imp. Early post-operative partial small bowel obstruction - hopefully will resolve without reoperation Plan: Gastrostomy and Kock pouch catheter to continuous drainage npo + TPN Lalo Meadows MD Sep 14, 2019 09:45
[2019-09-14 12:00] VITALS: BP 105/60
[2019-09-14 16:00] VITALS: BP 111/59
[2019-09-14 20:00] VITALS: BP 115/60
[2019-09-14] MEDS: TraZODone 100mg tab ORAL SCH (21:28)
[2019-09-14] MEDS: Dyna-Hex 2% Top Sol 2oz TOPIC SCH (21:29)
[2019-09-14] MEDS: Fat Emulsion Iv 20% 216 ML in Tpn 1,584 ML IV SCH (21:31)
[2019-09-15] VITALS: BP 116/61
[2019-09-15] MEDS: D5 1/2NS w/KCl 40meq 1000ml 1,000 ML IV SCH ×2 (02:02→21:49)
[2019-09-15 04:00] VITALS: BP 123/68
[2019-09-15] MEDS: Hydromorphone 0.5mg/0.5ml inj IVP PRN ×2 (04:26→09:06)
[2019-09-15 05:48] LABS: BASOPHILS % (AUTO) 1.5 % (0.0-2.0); EOSINOPHILS % (AUTO) 3.6 % (0.0-3.0); HEMATOCRIT 37.8 % (37.0-47.0); HEMOGLOBIN 12.4 G/DL (12.0-16.0); LYMPHOCYTES % (AUTO) 10.7 % (20.0-45.0); MEAN CORPUSCULAR VOLUME 88 FL (80-99); MONOCYTES % (AUTO) 9.6 % (1.0-10.0); NEUTROPHILS % (AUTO) 74.6 % (45.0-75.0); PLATELET COUNT 384 K/UL (150-450); RED BLOOD COUNT 4.32 M/UL (4.20-5.40); RED CELL DISTRIBUTION WIDTH 15.4 % (11.6-14.8); WHITE BLOOD COUNT 8.1 K/UL (4.8-10.8)
[2019-09-15] MEDS: NovoLOG Insulin Flexpen SUBQ SCH ×4 (06:03→18:00)
[2019-09-15] MEDS: Ascorbic Acid 500mg tab ORAL PRN (06:15)
[2019-09-15 06:47] LABS: ALANINE AMINOTRANSFERASE 33 U/L (12-78); ALBUMIN 2.6 G/DL (3.4-5.0); ALBUMIN/GLOBULIN RATIO 0.5 (1.0-2.7); ALKALINE PHOSPHATASE 189 U/L (46-116); ANION GAP 11 mmol/L (5-15); ASPARTATE AMINO TRANSFERASE 22 U/L (15-37); BILIRUBIN,TOTAL 0.4 MG/DL (0.2-1.0); BLOOD UREA NITROGEN 16 mg/dL (7-18); CALCIUM 9.2 MG/DL (8.5-10.1); CARBON DIOXIDE 25 MMOL/L (21-32); CHLORIDE 104 MMOL/L (98-107); PHOSPHORUS 4.1 MG/DL (2.5-4.9); POTASSIUM 4.5 MMOL/L (3.5-5.1); SODIUM 140 MMOL/L (136-145)
[2019-09-15 08:00] VITALS: BP 103/63
[2019-09-15] MEDS: Neosporin Oint 15gm TOPIC SCH ×4 (08:45→20:12)
[2019-09-15] MEDS: Piperacillin/Tazobactam 3.375 GM in NS 110 ML IVPB SCH ×3 (08:45→23:57)
[2019-09-15] MEDS: MYRBETRIQ 50 MG ORAL SCH (08:45)
[2019-09-15] MEDS: Citalopram Hydrobromide 10mg Tab ORAL SCH (08:45)
[2019-09-15] MEDS: BuPROPion SR 100mg tab ORAL SCH ×2 (08:45→17:35)
[2019-09-15] MEDS: Pantoprazole Inj IVP SCH (08:45)
[2019-09-15] MEDS: Flonase Nasal Inhaler 16gm NASAL SCH ×2 (09:00→18:00)
--- NOTE | 2019-09-15 09:03 | Pulmonology Progress Note ---
Assessment/Plan Assessment/Plan ASSESSMENT Atelectasis S/p Brantley pouch revision Ileus/SBO Multiple medical problems PLAN Continue pulmonary regimen and hygiene IV abx Mobilize and ambulate early Will follow Leucocytosis has resolved. Possible return to OR planned Subjective Interval Events: None new Constitutional: Reports: no symptoms HEENT: Repors: no symptoms Respiratory: Reports: no symptoms Cardiovascular: Reports: no symptoms Allergies: Coded Allergies: ADHESIVE TAPE (Verified Adverse Reaction, Intermediate, Rash, 08/27/19) CLEAR TAPE Objective Last 24 Hour Vital Signs Date Time Temp Pulse Resp B/P (MAP) Pulse Ox O2 Delivery O2 Flow Rate FiO2 09/15/19 04:00 98.6 91 17 123/68 (86) 95 09/15/19 00:00 98.2 89 18 116/61 (79) 96 09/14/19 21:00 Room Air 09/14/19 20:00 98.1 83 17 115/60 (78) 95 09/14/19 18:01 98.2 09/14/19 16:00 98.2 79 16 111/59 (76) 96 09/14/19 12:00 99.1 88 16 105/60 (75) 95 Intake and Output 09/14/19 09/15/19 19:00 07:00 Intake Total 232.5 ml Output Total 1250 ml 2005 ml Balance -1250 ml -1772.5 ml IV Total 232.5 ml Output Urine Total 1200 ml 2000 ml Other 50 ml 5 ml # Voids 5 General Appearance: no acute distress HEENT: normocephalic Respiratory/Chest: chest wall non-tender Cardiovascular: normal peripheral pulses Abdomen: normal bowel sounds Microbiology Date/Time Source Procedure Growth Status 09/12/19 13:30 Indwelling Cath Urine Culture - Final NO GROWTH AFTER 48 HOURS Complete Laboratory Tests 09/15/19 05:35: White Blood Count 8.1, Red Blood Count 4.32, Hemoglobin 12.4, Hematocrit 37.8, Mean Corpuscular Volume 88, Mean Corpuscular Hemoglobin 28.6, Mean Corpuscular Hemoglobin Concent 32.7, Red Cell Distribution Width 15.4H, Platelet Count 384, Mean Platelet Volume 5.9L, Neutrophils (%) (Auto) 74.6, Lymphocytes (%) (Auto) 10.7L, Monocytes (%) (Auto) 9.6, Eosinophils (%) (Auto) 3.6H, Basophils (%) ( Auto) 1.5, Sodium Level 140, Potassium Level 4.5, Chloride Level 104, Carbon Dioxide Level 25, Anion Gap 11, Blood Urea Nitrogen 16, Creatinine 1.0, Estimat Glomerular Filtration Rate 55.1, Glucose Level 134H, Calcium Level 9.2, Phosphorus Level 4.1, Magnesium Level 1.6L, Total Bilirubin 0.4, Aspartate Amino Transf (AST/SGOT) 22, Alanine Aminotransferase (ALT/SGPT) 33, Alkaline Phosphatase 189H, Total Protein 7.4, Albumin 2.6L, Globulin 4.8, Albumin/ Globulin Ratio 0.5L Current Medications Medications (Trade) Dose Ordered Sig/Jori Route PRN Reason Start Time Stop Time Status Last Admin Dose Admin Acetaminophen (Tylenol) 1,000 mg Q4H PRN ORAL temp>100.2 or headache 08/29/19 14:32 09/28/19 14:31 09/11/19 22:18 Ascorbic Acid (Vitamin C) 500 mg Q4H PRN ORAL thick ileostomy effluent 09/06/19 16:00 10/06/19 15:59 09/15/19 06:15 Bupropion HCl (Wellbutrin SR) 200 mg TWICE A DAY ORAL 08/29/19 18:00 09/26/19 17:59 09/15/19 08:45 Carisoprodol (Soma) 350 mg BEDTIME PRN ORAL NECK SPASM 08/29/19 14:32 09/28/19 14:31 09/09/19 20:38 Chlorhexidine Gluconate (Kathryn-Hex 2%) 1 applic DAILY@2000 TOPIC 08/29/19 20:00 09/26/19 19:59 09/14/19 21:29 Citalopram Hydrobromide (celeXA) 40 mg DAILY ORAL 08/30/19 09:00 09/27/19 08:59 09/15/19 08:45 Dextrose 1,000 ml @ 0 mls/hr Q24H PRN IV PN interrupted or unavailable 08/29/19 07:15 09/28/19 07:14 Dextrose (Dextrose 50%) 25 ml Q30M PRN IV Hypoglycemia 08/29/19 14:45 09/28/19 07:14 Dextrose (Dextrose 50%) 50 ml Q30M PRN IV Hypoglycemia 08/29/19 14:45 09/28/19 07:14 Dextrose/ Electrolytes 1,000 ml @ 50 mls/hr Q20H IV 09/12/19 14:00 10/12/19 13:59 09/15/19 02:02 Diphenhydramine HCl (Benadryl) 25 mg Q6H PRN IVP Itching/Pruritis 08/29/19 14:33 09/28/19 14:32 Fat Emulsion Intravenous 216 ml/Amino Acids/ Electrolytes/ Dextrose 1,800 ml @ 75 mls/hr Q24H IV 09/11/19 20:00 10/11/19 19:59 09/14/19 21:31 Fluticasone Propionate (Flonase) 1 spray TWICE A DAY NASAL 08/29/19 18:00 09/26/19 17:59 09/14/19 17:30 Hydromorphone HCl (Dilaudid) 0.2 mg Q4H PRN IVP Severe Pain (Pain Scale 7-10) 09/12/19 15:30 09/16/19 11:29 09/15/19 04:26 Insulin Aspart (NovoLOG) Q6HR SUBQ 08/30/19 00:00 09/29/19 00:00 09/15/19 06:03 Lorazepam (Ativan) 1 mg Q4H PRN SL Muscle Spasm 09/10/19 17:00 09/17/19 16:59 09/13/19 23:34 Neomycin/ Polymyxin/ Bacitracin (Neosporin Oint 15gm) 1 applic QID TOPIC 09/05/19 10:00 10/05/19 09:59 09/15/19 08:45 Ondansetron HCl (Zofran) 4 mg Q4H PRN IVP Nausea & Vomiting 08/29/19 14:34 09/28/19 14:33 09/09/19 03:36 Pantoprazole (Protonix) 40 mg DAILY IVP 08/30/19 09:00 09/28/19 08:59 09/15/19 08:45 Patient Own Medication (Patient's Own Med) 1 ea DAILY ORAL 09/07/19 09:00 10/07/19 08:59 09/15/19 08:45 Phytonadione (Vitamin K) 10 mg ONCE A WEEK SUBQ 08/30/19 09:00 09/29/19 08:59 09/13/19 09:23 Piperacillin Sod/ Tazobactam Sod 3.375 gm/Sodium Chloride 110 ml @ 27.5 mls/hr Q8H IVPB 09/09/19 08:00 09/16/19 07:59 09/15/19 08:45 Trazodone HCl (Desyrel) 200 mg BEDTIME ORAL 08/29/19 21:00 09/26/19 20:59 09/14/19 21:28 Shree Pope MD Sep 15, 2019 09:02
--- NOTE | 2019-09-15 10:07 | General Progress Note ---
Progress Note Progress Note AVSS Doing better getting out of bed. Still using intermittent dilaudid IV Abdomen soft, flat, non-tender, incision clean, stoma pink Urine 2000 Gastrostomy nil Kock pouch ileo - increased ileo output this morning, small amount overnight labs all stable except Mg 1.6 Imp: post-op partial SBO resolved clinically Plan: Clear liquid diet maintain continuous drainage of gastrostomy and Kock pouch Mg infusions decrease dilaudid dosing and taper off continue TPN Lalo Meadows MD Sep 15, 2019 10:07
[2019-09-15] MEDS ORDERED: Hydromorphone 0.5mg/0.5ml inj IVP PRN ×2 (11:30)
[2019-09-15 12:00] VITALS: BP 99/58
[2019-09-15] MEDS: LORazepam 1mg tab SL PRN ×2 (14:35→20:12)
[2019-09-15 16:00] VITALS: BP 127/61
[2019-09-15 20:00] VITALS: BP 114/69
[2019-09-15] MEDS: Dyna-Hex 2% Top Sol 2oz TOPIC SCH (20:11)
[2019-09-15] MEDS: Fat Emulsion Iv 20% 216 ML in Tpn 1,584 ML IV SCH (20:13)
[2019-09-15] MEDS: TraZODone 100mg tab ORAL SCH (21:33)
[2019-09-16] VITALS: BP 109/73
[2019-09-16 04:00] VITALS: BP 109/70
[2019-09-16] MEDS: NovoLOG Insulin Flexpen SUBQ SCH ×4 (05:42→17:41)
[2019-09-16 05:43] LABS: BASOPHILS % (AUTO) 0.9 % (0.0-2.0); EOSINOPHILS % (AUTO) 2.5 % (0.0-3.0); HEMATOCRIT 37.9 % (37.0-47.0); HEMOGLOBIN 13.1 G/DL (12.0-16.0); LYMPHOCYTES % (AUTO) 13.4 % (20.0-45.0); MEAN CORPUSCULAR VOLUME 85 FL (80-99); NEUTROPHILS % (AUTO) 75.2 % (45.0-75.0); PLATELET COUNT 357 K/UL (150-450); RED BLOOD COUNT 4.46 M/UL (4.20-5.40); RED CELL DISTRIBUTION WIDTH 14.2 % (11.6-14.8); WHITE BLOOD COUNT 8.6 K/UL (4.8-10.8)
[2019-09-16] MEDS: LORazepam 1mg tab SL PRN ×3 (05:46→23:11)
[2019-09-16 06:20] LABS: ALANINE AMINOTRANSFERASE 35 U/L (12-78); ALBUMIN 2.7 G/DL (3.4-5.0); ALBUMIN/GLOBULIN RATIO 0.5 (1.0-2.7); ALKALINE PHOSPHATASE 194 U/L (46-116); ANION GAP 9 mmol/L (5-15); ASPARTATE AMINO TRANSFERASE 21 U/L (15-37); BILIRUBIN,TOTAL 0.5 MG/DL (0.2-1.0); BLOOD UREA NITROGEN 16 mg/dL (7-18); CARBON DIOXIDE 26 MMOL/L (21-32); CHLORIDE 104 MMOL/L (98-107); CREATININE 1.1 MG/DL (0.55-1.30); POTASSIUM 4.4 MMOL/L (3.5-5.1); SODIUM 139 MMOL/L (136-145)
[2019-09-16 08:00] VITALS: BP 107/58
--- NOTE | 2019-09-16 08:42 | General Progress Note ---
Progress Note Progress Note AVSS Tolerated 775cc po clear liquids with gastrostomy to drainage Abdomen soft, lu removed. Stoma healing nicely BCIR ileo catheter replaced with new 28 Busch labs all stable Mg 2 Urine 3010 Gastrostomy 190 Kock pouch ileo 155 Imp. Improving slowly Plan: Clear liquid diet Plug gastrostomy continuously Maintain continuous drainage of Kock pouch continue TPN D/C Lalo Park MD Sep 16, 2019 08:42
[2019-09-16] MEDS: Flonase Nasal Inhaler 16gm NASAL SCH ×2 (09:00→17:42)
[2019-09-16] MEDS: Citalopram Hydrobromide 10mg Tab ORAL SCH (09:21)
[2019-09-16] MEDS: Pantoprazole Inj IVP SCH (09:21)
[2019-09-16] MEDS: MYRBETRIQ 50 MG ORAL SCH (09:21)
[2019-09-16] MEDS: Neosporin Oint 15gm TOPIC SCH ×4 (09:21→21:26)
[2019-09-16] MEDS: BuPROPion SR 100mg tab ORAL SCH ×2 (09:21→17:36)
[2019-09-16 10:09] LABS: ALANINE AMINOTRANSFERASE 27 U/L (12-78); ALBUMIN 2.7 G/DL (3.4-5.0); ALBUMIN/GLOBULIN RATIO 0.5 (1.0-2.7); ALKALINE PHOSPHATASE 179 U/L (46-116); ANION GAP 4 mmol/L (5-15); ASPARTATE AMINO TRANSFERASE 21 U/L (15-37); BILIRUBIN,TOTAL 0.5 MG/DL (0.2-1.0); BLOOD UREA NITROGEN 18 mg/dL (7-18); CALCIUM 8.8 MG/DL (8.5-10.1); CARBON DIOXIDE 32 MMOL/L (21-32); CHLORIDE 102 MMOL/L (98-107); CREATININE 1.1 MG/DL (0.55-1.30); POTASSIUM 4.6 MMOL/L (3.5-5.1); SODIUM 138 MMOL/L (136-145)
[2019-09-16 12:00] VITALS: BP 122/57
--- NOTE | 2019-09-16 12:15 | Pulmonology Progress Note ---
Assessment/Plan Assessment/Plan ASSESSMENT Atelectasis S/p Brantley pouch revision Ileus/SBO Multiple medical problems PLAN Continue pulmonary regimen and hygiene IV abx Mobilize and ambulate early Will follow Leucocytosis has resolved. Possible return to OR planned Subjective Interval Events: None new reorted Constitutional: Reports: no symptoms HEENT: Repors: no symptoms Respiratory: Reports: no symptoms Cardiovascular: Reports: no symptoms Genitourinary: Reports: no symptoms Allergies: Coded Allergies: ADHESIVE TAPE (Verified Adverse Reaction, Intermediate, Rash, 08/27/19) CLEAR TAPE Objective Last 24 Hour Vital Signs Date Time Temp Pulse Resp B/P (MAP) Pulse Ox O2 Delivery O2 Flow Rate FiO2 09/16/19 09:00 Room Air 09/16/19 08:00 98.8 91 16 107/58 (74) 94 09/16/19 04:00 98.8 102 16 109/70 (83) 98 09/16/19 00:00 98.9 94 17 109/73 (85) 97 09/15/19 21:00 Room Air 09/15/19 20:00 98.7 89 16 114/69 (84) 97 09/15/19 16:00 98.5 85 18 127/61 (83) 96 Intake and Output 09/15/19 09/16/19 19:00 07:00 Intake Total 1361 ml 1690 ml Output Total 1830 ml 1525 ml Balance -469 ml 165 ml Intake Oral 536 ml 240 ml IV Total 825 ml 1450 ml Output Urine Total 1600 ml 1410 ml Other 230 ml 115 ml # Voids 4 General Appearance: no acute distress HEENT: normocephalic Respiratory/Chest: chest wall non-tender, decreased breath sounds Cardiovascular: normal peripheral pulses Extremities: no cyanosis Laboratory Tests 09/16/19 05:15: White Blood Count 8.6, Red Blood Count 4.46, Hemoglobin 13.1, Hematocrit 37.9, Mean Corpuscular Volume 85, Mean Corpuscular Hemoglobin 29.4, Mean Corpuscular Hemoglobin Concent 34.6, Red Cell Distribution Width 14.2, Platelet Count 357, Mean Platelet Volume 6.2L, Neutrophils (%) (Auto) 75.2H, Lymphocytes (%) (Auto) 13.4L, Monocytes (%) (Auto) 8.0, Eosinophils (%) (Auto) 2.5, Basophils (%) (Auto ) 0.9, Sodium Level 139, Potassium Level 4.4, Chloride Level 104, Carbon Dioxide Level 26, Anion Gap 9, Blood Urea Nitrogen 16, Creatinine 1.1, Estimat Glomerular Filtration Rate 49.4, Glucose Level 114H, Calcium Level 9.0, Magnesium Level 2.0, Total Bilirubin 0.5, Aspartate Amino Transf (AST/SGOT) 21, Alanine Aminotransferase (ALT/SGPT) 35, Alkaline Phosphatase 194H, Total Protein 7.8, Albumin 2.7L, Globulin 5.1, Albumin/Globulin Ratio 0.5L 09/16/19 08:45: Sodium Level 138, Potassium Level 4.6, Chloride Level 102, Carbon Dioxide Level 32, Anion Gap 4L, Blood Urea Nitrogen 18, Creatinine 1.1, Estimat Glomerular Filtration Rate 49.4, Glucose Level 112H, Calcium Level 8.8, Total Bilirubin 0.5 , Aspartate Amino Transf (AST/SGOT) 21, Alanine Aminotransferase (ALT/SGPT) 27, Alkaline Phosphatase 179H, Total Protein 7.8, Albumin 2.7L, Globulin 5.1, Albumin/Globulin Ratio 0.5L Current Medications Medications (Trade) Dose Ordered Sig/Jori Route PRN Reason Start Time Stop Time Status Last Admin Dose Admin Acetaminophen (Tylenol) 1,000 mg Q4H PRN ORAL temp>100.2 or headache 08/29/19 14:32 09/28/19 14:31 09/11/19 22:18 Ascorbic Acid (Vitamin C) 500 mg Q4H PRN ORAL thick ileostomy effluent 09/06/19 16:00 10/06/19 15:59 09/15/19 06:15 Bupropion HCl (Wellbutrin SR) 200 mg TWICE A DAY ORAL 08/29/19 18:00 09/26/19 17:59 09/16/19 09:21 Carisoprodol (Soma) 350 mg BEDTIME PRN ORAL NECK SPASM 08/29/19 14:32 09/28/19 14:31 09/09/19 20:38 Chlorhexidine Gluconate (Kathryn-Hex 2%) 1 applic DAILY@1999 TOPIC 08/29/19 20:00 09/26/19 19:59 09/15/19 20:11 Citalopram Hydrobromide (celeXA) 40 mg DAILY ORAL 08/30/19 09:00 09/27/19 08:59 09/16/19 09:21 Dextrose 1,000 ml @ 0 mls/hr Q24H PRN IV PN interrupted or unavailable 08/29/19 07:15 09/28/19 07:14 Dextrose (Dextrose 50%) 25 ml Q30M PRN IV Hypoglycemia 08/29/19 14:45 09/28/19 07:14 Dextrose (Dextrose 50%) 50 ml Q30M PRN IV Hypoglycemia 08/29/19 14:45 09/28/19 07:14 Dextrose/ Electrolytes 1,000 ml @ 50 mls/hr Q20H IV 09/12/19 14:00 10/12/19 13:59 09/15/19 21:49 Diphenhydramine HCl (Benadryl) 25 mg Q6H PRN IVP Itching/Pruritis 08/29/19 14:33 09/28/19 14:32 Fat Emulsion Intravenous 216 ml/Amino Acids/ Electrolytes/ Dextrose 1,800 ml @ 75 mls/hr Q24H IV 09/11/19 20:00 10/11/19 19:59 09/15/19 20:13 Fluticasone Propionate (Flonase) 1 spray TWICE A DAY NASAL 08/29/19 18:00 09/26/19 17:59 09/14/19 17:30 Insulin Aspart (NovoLOG) Q6HR SUBQ 08/30/19 00:00 09/29/19 00:00 09/15/19 12:09 Lorazepam (Ativan) 1 mg Q4H PRN SL Muscle Spasm 09/15/19 13:00 09/22/19 12:59 09/16/19 05:46 Neomycin/ Polymyxin/ Bacitracin (Neosporin Oint 15gm) 1 applic QID TOPIC 09/05/19 10:00 10/05/19 09:59 09/16/19 09:21 Ondansetron HCl (Zofran) 4 mg Q4H PRN IVP Nausea & Vomiting 08/29/19 14:34 09/28/19 14:33 09/09/19 03:36 Pantoprazole (Protonix) 40 mg DAILY IVP 08/30/19 09:00 09/28/19 08:59 09/16/19 09:21 Patient Own Medication (Patient's Own Med) 1 ea DAILY ORAL 09/07/19 09:00 10/07/19 08:59 09/16/19 09:21 Phytonadione (Vitamin K) 10 mg ONCE A WEEK SUBQ 08/30/19 09:00 09/29/19 08:59 09/13/19 09:23 Trazodone HCl (Desyrel) 200 mg BEDTIME ORAL 08/29/19 21:00 09/26/19 20:59 09/15/19 21:33 Shree Pope MD Sep 16, 2019 12:15
[2019-09-16 16:00] VITALS: BP 112/63
[2019-09-16] MEDS: D5 1/2NS w/KCl 40meq 1000ml 1,000 ML IV SCH (17:36)
[2019-09-16 20:00] VITALS: BP 109/64
[2019-09-16] MEDS: Dyna-Hex 2% Top Sol 2oz TOPIC SCH (20:00)
[2019-09-16] MEDS: Fat Emulsion Iv 20% 216 ML in Tpn 1,584 ML IV SCH (20:01)
[2019-09-16] MEDS: Hydromorphone 0.5mg/0.5ml inj IVP PRN (20:02)
[2019-09-16] MEDS: TraZODone 100mg tab ORAL SCH (21:12)
[2019-09-17] VITALS: BP 105/69
[2019-09-17] MEDS: NovoLOG Insulin Flexpen SUBQ SCH ×5 (00:06→23:41)
[2019-09-17 04:00] VITALS: BP 107/66
[2019-09-17 06:23] LABS: BASOPHILS % (AUTO) 0.7 % (0.0-2.0); EOSINOPHILS % (AUTO) 2.6 % (0.0-3.0); HEMATOCRIT 36.5 % (37.0-47.0); HEMOGLOBIN 12.5 G/DL (12.0-16.0); LYMPHOCYTES % (AUTO) 13.7 % (20.0-45.0); MEAN CORPUSCULAR VOLUME 85 FL (80-99); MONOCYTES % (AUTO) 8.2 % (1.0-10.0); NEUTROPHILS % (AUTO) 74.8 % (45.0-75.0); PLATELET COUNT 295 K/UL (150-450); RED BLOOD COUNT 4.28 M/UL (4.20-5.40); RED CELL DISTRIBUTION WIDTH 13.9 % (11.6-14.8); WHITE BLOOD COUNT 9.2 K/UL (4.8-10.8)
[2019-09-17 08:00] VITALS: BP 112/69
[2019-09-17] MEDS: Flonase Nasal Inhaler 16gm NASAL SCH ×2 (08:57→17:23)
[2019-09-17] MEDS: Citalopram Hydrobromide 10mg Tab ORAL SCH (09:01)
[2019-09-17] MEDS: BuPROPion SR 100mg tab ORAL SCH ×2 (09:01→17:23)
[2019-09-17] MEDS: Pantoprazole Inj IVP SCH (09:01)
[2019-09-17] MEDS: MYRBETRIQ 50 MG ORAL SCH (09:01)
[2019-09-17] MEDS: Neosporin Oint 15gm TOPIC SCH ×4 (09:02→21:01)
[2019-09-17] MEDS: Hydromorphone 0.5mg/0.5ml inj IVP PRN ×3 (09:27→20:57)
--- NOTE | 2019-09-17 10:29 | Pulmonology Progress Note ---
Assessment/Plan Assessment/Plan ASSESSMENT Atelectasis S/p Brantley pouch revision Ileus/SBO PLAN Continue pulmonary regimen and hygiene Off Zosyn Mobilize and ambulate early Will follow Subjective Interval Events: No fever or leucocytosis Constitutional: Reports: no symptoms HEENT: Repors: no symptoms Respiratory: Reports: no symptoms Cardiovascular: Reports: no symptoms Gastrointestinal/Abdominal: Reports: no symptoms Allergies: Coded Allergies: ADHESIVE TAPE (Verified Adverse Reaction, Intermediate, Rash, 08/27/19) CLEAR TAPE Objective Last 24 Hour Vital Signs Date Time Temp Pulse Resp B/P (MAP) Pulse Ox O2 Delivery O2 Flow Rate FiO2 09/17/19 09:57 98.4 09/17/19 09:00 Room Air 09/17/19 08:00 98.4 91 20 112/69 (83) 97 09/17/19 04:00 98.8 90 16 107/66 (80) 96 09/17/19 00:00 98.9 95 17 105/69 (81) 96 09/16/19 21:00 Room Air 09/16/19 20:00 99.1 87 18 109/64 (79) 94 09/16/19 16:00 98.3 93 17 112/63 (79) 96 09/16/19 12:00 98.3 91 17 122/57 (78) 94 Intake and Output 09/16/19 09/17/19 19:00 07:00 Intake Total 554 ml 1490 ml Output Total 1520 ml 1260 ml Balance -966 ml 230 ml Intake Oral 554 ml 240 ml IV Total 1250 ml Output Urine Total 1500 ml 1030 ml Other 20 ml 230 ml # Voids 5 General Appearance: no acute distress HEENT: normocephalic Respiratory/Chest: chest wall non-tender, lungs clear Cardiovascular: normal peripheral pulses Laboratory Tests 09/17/19 04:50: White Blood Count 9.2, Red Blood Count 4.28, Hemoglobin 12.5, Hematocrit 36.5L, Mean Corpuscular Volume 85, Mean Corpuscular Hemoglobin 29.2, Mean Corpuscular Hemoglobin Concent 34.2, Red Cell Distribution Width 13.9, Platelet Count 295, Mean Platelet Volume 6.4L, Neutrophils (%) (Auto) 74.8, Lymphocytes (%) (Auto) 13.7L, Monocytes (%) (Auto) 8.2, Eosinophils (%) (Auto) 2.6, Basophils (%) (Auto ) 0.7 Current Medications Medications (Trade) Dose Ordered Sig/Jori Route PRN Reason Start Time Stop Time Status Last Admin Dose Admin Acetaminophen (Tylenol) 1,000 mg Q4H PRN ORAL temp>100.2 or headache 08/29/19 14:32 09/28/19 14:31 09/11/19 22:18 Ascorbic Acid (Vitamin C) 500 mg Q4H PRN ORAL thick ileostomy effluent 09/06/19 16:00 10/06/19 15:59 09/15/19 06:15 Bupropion HCl (Wellbutrin SR) 200 mg TWICE A DAY ORAL 08/29/19 18:00 09/26/19 17:59 09/17/19 09:01 Carisoprodol (Soma) 350 mg BEDTIME PRN ORAL NECK SPASM 08/29/19 14:32 09/28/19 14:31 09/09/19 20:38 Chlorhexidine Gluconate (Kathryn-Hex 2%) 1 applic DAILY@2000 TOPIC 08/29/19 20:00 09/26/19 19:59 09/16/19 20:00 Citalopram Hydrobromide (celeXA) 40 mg DAILY ORAL 08/30/19 09:00 09/27/19 08:59 09/17/19 09:01 Dextrose 1,000 ml @ 0 mls/hr Q24H PRN IV PN interrupted or unavailable 08/29/19 07:15 09/28/19 07:14 Dextrose (Dextrose 50%) 25 ml Q30M PRN IV Hypoglycemia 08/29/19 14:45 09/28/19 07:14 Dextrose (Dextrose 50%) 50 ml Q30M PRN IV Hypoglycemia 08/29/19 14:45 09/28/19 07:14 Dextrose/ Electrolytes 1,000 ml @ 50 mls/hr Q20H IV 09/12/19 14:00 10/12/19 13:59 09/16/19 17:36 Diphenhydramine HCl (Benadryl) 25 mg Q6H PRN IVP Itching/Pruritis 08/29/19 14:33 09/28/19 14:32 Fat Emulsion Intravenous 216 ml/Amino Acids/ Electrolytes/ Dextrose 1,800 ml @ 75 mls/hr Q24H IV 09/11/19 20:00 10/11/19 19:59 09/16/19 20:01 Fluticasone Propionate (Flonase) 1 spray TWICE A DAY NASAL 08/29/19 18:00 09/26/19 17:59 09/14/19 17:30 Hydromorphone HCl (Dilaudid) 0.1 mg Q4H PRN IVP For Pain 09/16/19 19:30 09/23/19 19:29 09/17/19 09:27 Insulin Aspart (NovoLOG) Q6HR SUBQ 08/30/19 00:00 09/29/19 00:00 09/17/19 00:06 Lorazepam (Ativan) 1 mg Q4H PRN SL Muscle Spasm 09/15/19 13:00 09/22/19 12:59 09/16/19 23:11 Neomycin/ Polymyxin/ Bacitracin (Neosporin Oint 15gm) 1 applic QID TOPIC 09/05/19 10:00 10/05/19 09:59 09/17/19 09:02 Ondansetron HCl (Zofran) 4 mg Q4H PRN IVP Nausea & Vomiting 08/29/19 14:34 09/28/19 14:33 09/09/19 03:36 Pantoprazole (Protonix) 40 mg DAILY IVP 08/30/19 09:00 09/28/19 08:59 09/17/19 09:01 Patient Own Medication (Patient's Own Med) 1 ea DAILY ORAL 09/07/19 09:00 10/07/19 08:59 09/17/19 09:01 Phytonadione (Vitamin K) 10 mg ONCE A WEEK SUBQ 08/30/19 09:00 09/29/19 08:59 09/13/19 09:23 Trazodone HCl (Desyrel) 200 mg BEDTIME ORAL 08/29/19 21:00 09/26/19 20:59 09/16/19 21:12 Shree Pope MD Sep 17, 2019 10:29
[2019-09-17 11:28] VITALS: BP 112/63
[2019-09-17] MEDS: D5 1/2NS w/KCl 40meq 1000ml 1,000 ML IV SCH (13:31)
[2019-09-17] MEDS ORDERED: Tubing IV Secondary IV ONE (14:01)
[2019-09-17] MEDS ORDERED: NS Irrig 1000ml ONE ×2 (14:01→14:04)
[2019-09-17 16:00] VITALS: BP 113/64
[2019-09-17] MEDS ORDERED: Omnipaque-300 100ml vial INJ SCH (16:45)
[2019-09-17] MEDS ORDERED: HYDROcodone/Acetamin 5/325 tab ORAL PRN (16:46)
--- NOTE | 2019-09-17 16:52 | General Progress Note ---
Progress Note Progress Note AVLIANA Continues to have episodes of severe LUQ pain initiated by movement - she cannot distinguish between abd wall and intra-abdominal. Not relieved by gastrostomy to drainage. No N/V Abdomen soft, flat, erythema at gastrostomy site, stoma well healed Urine 2530 Gastrostomy 150 Kock pouch ileo 60 WBC 9200 Hgb 12.5 BUN 18 Cr 1.1 Albumin 2.7 Imp. Abdominal pain and scant Kock pouch output, but scant gastrostomy output Plan: CT scan abd+pelvis with oral and IV contrast in Lalo Elam MD Sep 17, 2019 16:52
[2019-09-17 20:00] VITALS: BP 115/72
[2019-09-17] MEDS: Fat Emulsion Iv 20% 216 ML in Tpn 1,584 ML IV SCH (21:00)
[2019-09-17] MEDS: Dyna-Hex 2% Top Sol 2oz TOPIC SCH (21:01)
[2019-09-17] MEDS: TraZODone 100mg tab ORAL SCH (21:59)
[2019-09-18] VITALS: BP 111/56
[2019-09-18] MEDS: HYDROcodone/Acetamin 5/325 tab ORAL PRN ×4 (02:38→20:37)
[2019-09-18 04:00] VITALS: BP 111/59
[2019-09-18] MEDS: NovoLOG Insulin Flexpen SUBQ SCH ×3 (05:33→17:40)
[2019-09-18 08:00] VITALS: BP 103/47
--- NOTE | 2019-09-18 08:46 | Pulmonology Progress Note ---
Assessment/Plan Assessment/Plan ASSESSMENT Atelectasis S/p Brantley pouch revision Ileus/SBO PLAN Continue pulmonary regimen and hygiene Off Zosyn Mobilize and ambulate early Will follow Subjective Interval Events: None new Constitutional: Reports: no symptoms HEENT: Repors: no symptoms Respiratory: Reports: no symptoms Cardiovascular: Reports: no symptoms Genitourinary: Reports: no symptoms Neurologic: Reports: no symptoms Allergies: Coded Allergies: ADHESIVE TAPE (Verified Adverse Reaction, Intermediate, Rash, 08/27/19) CLEAR TAPE Objective Last 24 Hour Vital Signs Date Time Temp Pulse Resp B/P (MAP) Pulse Ox O2 Delivery O2 Flow Rate FiO2 09/18/19 08:00 98.4 81 18 103/47 (65) 95 09/18/19 04:00 99.2 86 17 111/59 (76) 95 09/18/19 00:00 98.6 89 16 111/56 (74) 97 09/17/19 21:00 Room Air 09/17/19 20:00 98.2 88 17 115/72 (86) 96 09/17/19 18:02 98.9 09/17/19 16:00 98.9 86 21 113/64 (80) 97 09/17/19 14:01 98.6 09/17/19 11:28 98.6 80 19 112/63 (79) 97 09/17/19 09:00 Room Air Intake and Output 09/17/19 09/18/19 19:00 07:00 Intake Total 932 ml 1670 ml Output Total 415 ml 2025 ml Balance 517 ml -355 ml Intake Oral 557 ml 120 ml IV Total 375 ml 1550 ml Output Urine Total 200 ml 1730 ml Other 215 ml 295 ml # Voids 1 General Appearance: no acute distress HEENT: normocephalic Respiratory/Chest: chest wall non-tender, lungs clear Cardiovascular: normal peripheral pulses Current Medications Medications (Trade) Dose Ordered Sig/Jori Route PRN Reason Start Time Stop Time Status Last Admin Dose Admin Acetaminophen (Tylenol) 1,000 mg Q4H PRN ORAL temp>100.2 or headache 08/29/19 14:32 09/28/19 14:31 09/11/19 22:18 Acetaminophen/ Hydrocodone Bitart ([place] 5/325) 1 tab Q4H PRN ORAL Moderate Pain (Pain Scale 4-6) 09/17/19 17:35 09/24/19 17:34 09/18/19 02:38 Ascorbic Acid (Vitamin C) 500 mg Q4H PRN ORAL thick ileostomy effluent 09/06/19 16:00 10/06/19 15:59 09/15/19 06:15 Barium Sulfate (Readi-Cat 2) 450 ml ADJUST PER PROTOCOL ORAL 09/17/19 16:45 09/18/19 16:46 Bupropion HCl (Wellbutrin SR) 200 mg TWICE A DAY ORAL 08/29/19 18:00 09/26/19 17:59 09/17/19 17:23 Carisoprodol (Soma) 350 mg BEDTIME PRN ORAL NECK SPASM 08/29/19 14:32 09/28/19 14:31 09/09/19 20:38 Chlorhexidine Gluconate (Kathryn-Hex 2%) 1 applic DAILY@2000 TOPIC 08/29/19 20:00 09/26/19 19:59 09/17/19 21:01 Citalopram Hydrobromide (celeXA) 40 mg DAILY ORAL 08/30/19 09:00 09/27/19 08:59 09/17/19 09:01 Dextrose 1,000 ml @ 0 mls/hr Q24H PRN IV PN interrupted or unavailable 08/29/19 07:15 09/28/19 07:14 Dextrose (Dextrose 50%) 25 ml Q30M PRN IV Hypoglycemia 08/29/19 14:45 09/28/19 07:14 Dextrose (Dextrose 50%) 50 ml Q30M PRN IV Hypoglycemia 08/29/19 14:45 09/28/19 07:14 Dextrose/ Electrolytes 1,000 ml @ 50 mls/hr Q20H IV 09/12/19 14:00 10/12/19 13:59 09/17/19 13:31 Diphenhydramine HCl (Benadryl) 25 mg Q6H PRN IVP Itching/Pruritis 08/29/19 14:33 09/28/19 14:32 Fat Emulsion Intravenous 216 ml/Amino Acids/ Electrolytes/ Dextrose 1,800 ml @ 75 mls/hr Q24H IV 09/11/19 20:00 10/11/19 19:59 09/17/19 21:00 Fluticasone Propionate (Flonase) 1 spray TWICE A DAY NASAL 08/29/19 18:00 09/26/19 17:59 09/14/19 17:30 Hydromorphone HCl (Dilaudid) 0.1 mg Q4H PRN IVP For Pain 09/17/19 17:39 09/24/19 17:38 09/17/19 20:57 Insulin Aspart (NovoLOG) Q6HR SUBQ 08/30/19 00:00 09/29/19 00:00 09/18/19 05:33 Lorazepam (Ativan) 1 mg Q4H PRN SL Muscle Spasm 09/15/19 13:00 09/22/19 12:59 09/16/19 23:11 Mupirocin (Bactroban Oint) 1 applic THREE TIMES A DAY TOPIC 09/18/19 09:00 09/23/19 08:59 Ondansetron HCl (Zofran) 4 mg Q4H PRN IVP Nausea & Vomiting 08/29/19 14:34 09/28/19 14:33 09/09/19 03:36 Pantoprazole (Protonix) 40 mg DAILY IVP 08/30/19 09:00 09/28/19 08:59 09/17/19 09:01 Patient Own Medication (Patient's Own Med) 1 ea DAILY ORAL 09/07/19 09:00 10/07/19 08:59 09/17/19 09:01 Phytonadione (Vitamin K) 10 mg ONCE A WEEK SUBQ 08/30/19 09:00 09/29/19 08:59 09/13/19 09:23 Trazodone HCl (Desyrel) 200 mg BEDTIME ORAL 08/29/19 21:00 09/26/19 20:59 09/17/19 21:59 Shree Pope MD Sep 18, 2019 08:46
[2019-09-18] MEDS: Flonase Nasal Inhaler 16gm NASAL SCH ×2 (09:00→17:41)
[2019-09-18] MEDS: Pantoprazole Inj IVP SCH (09:39)
[2019-09-18] MEDS: Citalopram Hydrobromide 10mg Tab ORAL SCH (09:39)
[2019-09-18] MEDS: MYRBETRIQ 50 MG ORAL SCH (09:40)
[2019-09-18] MEDS: BuPROPion SR 100mg tab ORAL SCH ×2 (09:40→17:38)
[2019-09-18] MEDS: D5 1/2NS w/KCl 40meq 1000ml 1,000 ML IV SCH (09:45)
[2019-09-18] MEDS: Hydromorphone 0.5mg/0.5ml inj IVP PRN (11:01)
[2019-09-18 12:00] VITALS: BP 114/66
--- NOTE | 2019-09-18 12:08 | Diagnostic Imaging Report ---
Clinical Indication: Left upper quadrant pain initiated by movement, history of continent ileostomy Technique: Patient ingested oral contrast IV administration nonionic contrast. Venous phase spiral acquisition obtained through the abdomen and pelvis. Multiplanar reconstructions were generated. Total dose length product 835 mGycm. CTDIvol(s) 4 to mGy. Dose reduction achieved using automated exposure control Comparison: 09/08/2019 Findings: Again demonstrated is evidence of prior colectomy and continent ileostomy placement. There is a gastrostomy tube within the gastric lumen. The position of the balloon has improved, no longer within the antrum or pylorus.. There is diffuse dilatation of the small bowel. The dilatation extends all the way to the pouch. However, contrast is seen within the pouch. A small amount of fluid is again demonstrated within the pelvis. This does not appear to be loculated or have an enhancing rim. There is a tiny fluid collection just cephalad to the pouch which measures approximately 15 mm in diameter. No other fluid collections are evident. Gastric and small bowel dilatation has improved since the prior study. Previously demonstrated skin lu the removed. No significant incisional abnormality demonstrated. A small amount of gas is seen in the subcutaneous fat adjacent to the stoma, decreased from the prior study. The liver and gallbladder are unremarkable. The extrahepatic bile ducts are mildly ectatic, common bile duct measuring up to 8 mm in diameter. The pancreas, spleen, adrenals, kidneys are unremarkable. Numerous prominent retroperitoneal lymph nodes are again demonstrated. No pelvic mass or adenopathy. Uterus and adnexal structures appear unremarkable. Previously demonstrated Busch catheter is no longer present. Small amount of gas is seen within the bladder lumen, as previously. The included lung bases demonstrate some posterior dependent atelectatic changes. The bones demonstrate degenerative spondylosis changes. Impression: Postsurgical changes, as described Diffuse distention of small bowel, may be somewhat less severe than on the prior exam. However, presence of contrast within the continent ileostomy pouch and catheter suggests absence of obstructive pathology. Findings most likely are functional in nature Small amount of fluid in the pelvis, probably free fluid, presumably residual from surgery, also evident previously Tiny fluid collection just cephalad to the pouch, probably a routine postoperative fluid collection although a tiny abscess not completely excludable Interim Busch catheter removal. Residual air is seen within the bladder lumen Improved position of gastrostomy, balloon no longer within the antrum/pylorus Mildly ectatic common bile duct, of doubtful significance given similar to the prior exam and absence of structural pathology. Nonetheless, correlation with liver function tests is recommended. Other findings as noted, including posterior dependent pulmonary atelectatic changes, degenerative spondylosis The CT scanner at [facility] is accredited by the [employer] and the scans are performed using protocols designed to limit radiation exposure to as low as reasonably achievable to attain images of sufficient resolution adequate for diagnostic evaluation.
--- NOTE | 2019-09-18 12:48 | General Progress Note ---
Progress Note Progress Note AVSS Still very little gastrostomy output but Kock pouch ileo output increased 415cc Abdomen soft CT scan - negative - mildly dilated bowel but less than prior scan, no obstructions Imp. Improved Plan: Plug gastrostomy continuously BCIR low residue diet continue TPN Lalo Meadows MD Sep 18, 2019 12:48
[2019-09-18 16:00] VITALS: BP 118/66
[2019-09-18] MEDS: LORazepam 1mg tab SL PRN (18:05)
[2019-09-18] MEDS ORDERED: NS Irrig 1000ml ONE (18:32)
[2019-09-18 20:00] VITALS: BP 115/63
[2019-09-18] MEDS: Fat Emulsion Iv 20% 216 ML in Tpn 1,584 ML IV SCH (20:35)
[2019-09-18] MEDS: Dyna-Hex 2% Top Sol 2oz TOPIC SCH (20:38)
[2019-09-18] MEDS: TraZODone 100mg tab ORAL SCH (21:41)
[2019-09-19] VITALS: BP 112/62
[2019-09-19] MEDS: NovoLOG Insulin Flexpen SUBQ SCH ×4 (00:01→18:36)
[2019-09-19 04:00] VITALS: BP 122/67
[2019-09-19] MEDS: HYDROcodone/Acetamin 5/325 tab ORAL PRN ×4 (04:45→22:37)
[2019-09-19 06:05] LABS: BASOPHILS % (AUTO) 0.7 % (0.0-2.0); EOSINOPHILS % (AUTO) 3.8 % (0.0-3.0); HEMATOCRIT 38.9 % (37.0-47.0); HEMOGLOBIN 12.7 G/DL (12.0-16.0); LYMPHOCYTES % (AUTO) 12.3 % (20.0-45.0); MEAN CORPUSCULAR VOLUME 89 FL (80-99); MONOCYTES % (AUTO) 7.9 % (1.0-10.0); NEUTROPHILS % (AUTO) 75.3 % (45.0-75.0); PLATELET COUNT 249 K/UL (150-450); RED BLOOD COUNT 4.38 M/UL (4.20-5.40); RED CELL DISTRIBUTION WIDTH 15.7 % (11.6-14.8); WHITE BLOOD COUNT 8.5 K/UL (4.8-10.8)
[2019-09-19 06:31] LABS: ALANINE AMINOTRANSFERASE 22 U/L (12-78); ALBUMIN 2.5 G/DL (3.4-5.0); ALBUMIN/GLOBULIN RATIO 0.5 (1.0-2.7); ALKALINE PHOSPHATASE 167 U/L (46-116); ANION GAP 3 mmol/L (5-15); ASPARTATE AMINO TRANSFERASE 20 U/L (15-37); BILIRUBIN,TOTAL 0.4 MG/DL (0.2-1.0); BLOOD UREA NITROGEN 16 mg/dL (7-18); CALCIUM 8.6 MG/DL (8.5-10.1); CARBON DIOXIDE 31 MMOL/L (21-32); CHLORIDE 102 MMOL/L (98-107); CREATININE 0.9 MG/DL (0.55-1.30); PHOSPHORUS 4.1 MG/DL (2.5-4.9); POTASSIUM 4.1 MMOL/L (3.5-5.1); SODIUM 136 MMOL/L (136-145)
[2019-09-19 08:00] VITALS: BP 122/68
[2019-09-19] MEDS: Flonase Nasal Inhaler 16gm NASAL SCH ×2 (09:00→18:39)
[2019-09-19] MEDS: MYRBETRIQ 50 MG ORAL SCH (09:23)
[2019-09-19] MEDS: BuPROPion SR 100mg tab ORAL SCH ×2 (09:23→18:32)
[2019-09-19] MEDS: Citalopram Hydrobromide 10mg Tab ORAL SCH (09:23)
[2019-09-19] MEDS: Pantoprazole Inj IVP SCH (09:23)
--- NOTE | 2019-09-19 10:03 | Pulmonology Progress Note ---
Assessment/Plan Assessment/Plan ASSESSMENT Atelectasis S/p Brantlye pouch revision Ileus/SBO PLAN Continue pulmonary regimen and hygiene Off Zosyn Mobilize and ambulate early Will follow Subjective Interval Events: None new reported Constitutional: Reports: no symptoms HEENT: Repors: no symptoms Respiratory: Reports: no symptoms Cardiovascular: Reports: no symptoms Gastrointestinal/Abdominal: Reports: no symptoms Genitourinary: Reports: no symptoms Allergies: Coded Allergies: ADHESIVE TAPE (Verified Adverse Reaction, Intermediate, Rash, 08/27/19) CLEAR TAPE Objective Last 24 Hour Vital Signs Date Time Temp Pulse Resp B/P (MAP) Pulse Ox O2 Delivery O2 Flow Rate FiO2 09/19/19 04:00 99.6 88 18 122/67 (85) 97 09/19/19 00:00 98.6 80 18 112/62 (79) 94 09/18/19 21:00 Room Air 09/18/19 20:00 98.8 92 17 115/63 (80) 97 09/18/19 16:00 98.0 80 18 118/66 (83) 97 09/18/19 12:00 98.0 81 19 114/66 (82) 96 Intake and Output 09/18/19 09/19/19 19:00 07:00 Intake Total 1710 ml 415 ml Output Total 1995 ml 1720 ml Balance -285 ml -1305 ml Intake Oral 810 ml 340 ml IV Total 900 ml 75 ml Output Urine Total 1275 ml 900 ml Other 720 ml 820 ml # Voids 3 General Appearance: no acute distress HEENT: normocephalic Respiratory/Chest: chest wall non-tender, lungs clear Cardiovascular: normal peripheral pulses Abdomen: hypoactive bowel sounds Laboratory Tests 09/19/19 05:10: White Blood Count 8.5, Red Blood Count 4.38, Hemoglobin 12.7, Hematocrit 38.9, Mean Corpuscular Volume 89, Mean Corpuscular Hemoglobin 29.0, Mean Corpuscular Hemoglobin Concent 32.7, Red Cell Distribution Width 15.7H, Platelet Count 249, Mean Platelet Volume 6.8, Neutrophils (%) (Auto) 75.3H, Lymphocytes (%) (Auto) 12.3L, Monocytes (%) (Auto) 7.9, Eosinophils (%) (Auto) 3.8H, Basophils (%) ( Auto) 0.7, Sodium Level 136, Potassium Level 4.1, Chloride Level 102, Carbon Dioxide Level 31, Anion Gap 3L, Blood Urea Nitrogen 16, Creatinine 0.9, Estimat Glomerular Filtration Rate > 60, Glucose Level 105, Calcium Level 8.6, Phosphorus Level 4.1, Magnesium Level 1.6L, Total Bilirubin 0.4, Aspartate Amino Transf (AST/SGOT) 20, Alanine Aminotransferase (ALT/SGPT) 22, Alkaline Phosphatase 167H, Total Protein 7.2, Albumin 2.5L, Globulin 4.7, Albumin/ Globulin Ratio 0.5L Current Medications Medications (Trade) Dose Ordered Sig/Jori Route PRN Reason Start Time Stop Time Status Last Admin Dose Admin Acetaminophen (Tylenol) 1,000 mg Q4H PRN ORAL temp>100.2 or headache 08/29/19 14:32 09/28/19 14:31 09/11/19 22:18 Acetaminophen/ Hydrocodone Bitart ([place] 5/325) 1 tab Q4H PRN ORAL Moderate Pain (Pain Scale 4-6) 09/17/19 17:35 09/24/19 17:34 09/19/19 04:45 Ascorbic Acid (Vitamin C) 500 mg Q4H PRN ORAL thick ileostomy effluent 09/06/19 16:00 10/06/19 15:59 09/15/19 06:15 Bupropion HCl (Wellbutrin SR) 200 mg TWICE A DAY ORAL 08/29/19 18:00 09/26/19 17:59 09/19/19 09:23 Carisoprodol (Soma) 350 mg BEDTIME PRN ORAL NECK SPASM 08/29/19 14:32 09/28/19 14:31 09/09/19 20:38 Chlorhexidine Gluconate (Kathryn-Hex 2%) 1 applic DAILY@2000 TOPIC 08/29/19 20:00 09/26/19 19:59 09/18/19 20:38 Citalopram Hydrobromide (celeXA) 40 mg DAILY ORAL 08/30/19 09:00 09/27/19 08:59 09/19/19 09:23 Dextrose 1,000 ml @ 0 mls/hr Q24H PRN IV PN interrupted or unavailable 08/29/19 07:15 09/28/19 07:14 Dextrose (Dextrose 50%) 25 ml Q30M PRN IV Hypoglycemia 08/29/19 14:45 09/28/19 07:14 Dextrose (Dextrose 50%) 50 ml Q30M PRN IV Hypoglycemia 08/29/19 14:45 09/28/19 07:14 Diphenhydramine HCl (Benadryl) 25 mg Q6H PRN IVP Itching/Pruritis 08/29/19 14:33 09/28/19 14:32 Fat Emulsion Intravenous 216 ml/Amino Acids/ Electrolytes/ Dextrose 1,800 ml @ 75 mls/hr Q24H IV 09/11/19 20:00 10/11/19 19:59 09/18/19 20:35 Fluticasone Propionate (Flonase) 1 spray TWICE A DAY NASAL 08/29/19 18:00 09/26/19 17:59 09/14/19 17:30 Hydromorphone HCl (Dilaudid) 0.1 mg Q4H PRN IVP For Pain 09/17/19 17:39 09/24/19 17:38 09/18/19 11:01 Insulin Aspart (NovoLOG) Q6HR SUBQ 08/30/19 00:00 09/29/19 00:00 09/19/19 06:32 Lorazepam (Ativan) 1 mg Q4H PRN SL Muscle Spasm 09/15/19 13:00 09/22/19 12:59 09/18/19 18:05 Mupirocin (Bactroban Oint) 1 applic THREE TIMES A DAY TOPIC 09/18/19 09:00 09/23/19 08:59 09/19/19 09:23 Ondansetron HCl (Zofran) 4 mg Q4H PRN IVP Nausea & Vomiting 08/29/19 14:34 09/28/19 14:33 09/09/19 03:36 Pantoprazole (Protonix) 40 mg DAILY IVP 08/30/19 09:00 09/28/19 08:59 09/19/19 09:23 Patient Own Medication (Patient's Own Med) 1 ea DAILY ORAL 09/07/19 09:00 10/07/19 08:59 09/19/19 09:23 Phytonadione (Vitamin K) 10 mg ONCE A WEEK SUBQ 08/30/19 09:00 09/29/19 08:59 09/13/19 09:23 Trazodone HCl (Desyrel) 200 mg BEDTIME ORAL 08/29/19 21:00 09/26/19 20:59 09/18/19 21:41 Shree Pope MD Sep 19, 2019 10:03
[2019-09-19 12:00] VITALS: BP 124/107
--- NOTE | 2019-09-19 12:00 | General Progress Note ---
Progress Note Progress Note Tmax 99.6 VSS Starting to eat BCIR diet only small amount so far. No symptoms with gastrostomy plugged Abdomen soft, flat, nicely healed. Decreased erythema at gastrostomy site Urine 2175 Kock pouch ileo 1620 WBC 8500 BUN 16 Cr 0.9 Mg 1.6 Imp. Slowly improving Plan; continue TPN until eating better Mg infusions remove gastrostomy after tolerating diet well Lalo Meadows MD Sep 19, 2019 12:00
[2019-09-19 16:00] VITALS: BP 119/65
[2019-09-19 20:00] VITALS: BP 105/55
[2019-09-19] MEDS: Fat Emulsion Iv 20% 216 ML in Tpn 1,584 ML IV SCH (20:08)
[2019-09-19] MEDS: Dyna-Hex 2% Top Sol 2oz TOPIC SCH (20:08)
[2019-09-19] MEDS: TraZODone 100mg tab ORAL SCH (21:45)
[2019-09-20] VITALS: BP 100/55
[2019-09-20] MEDS: LORazepam 1mg tab SL PRN ×2 (00:46→11:06)
[2019-09-20 04:00] VITALS: BP 96/58
[2019-09-20] MEDS: NovoLOG Insulin Flexpen SUBQ SCH ×4 (06:00→17:35)
[2019-09-20 08:00] VITALS: BP 105/61
[2019-09-20] MEDS: Flonase Nasal Inhaler 16gm NASAL SCH ×2 (09:00→18:00)
[2019-09-20] MEDS: Pantoprazole Inj IVP SCH (09:11)
[2019-09-20] MEDS: BuPROPion SR 100mg tab ORAL SCH ×2 (09:11→17:26)
[2019-09-20] MEDS: Citalopram Hydrobromide 10mg Tab ORAL SCH (09:11)
[2019-09-20] MEDS: Phytonadione 10 mg/mL 1ml amp SUBQ SCH (09:14)
[2019-09-20] MEDS: MYRBETRIQ 50 MG ORAL SCH (09:14)
[2019-09-20] MEDS ORDERED: NS Irrig 1000ml ONE (10:42)
--- NOTE | 2019-09-20 11:05 | General Progress Note ---
Progress Note Progress Note AVSS ABle to eat 50% of BCIR diet. Gastrostomy removed. abdomen soft, flat, well healed Urine 2400 Kock pouch ileo 595 IMp. improved Plan: taper and d/c TPN will remove Kock pouch indwelling catheter in AM and start RN supervised self-intubations dietary supplement BID f/u labs Lalo Meadows MD Sep 20, 2019 11:05
--- NOTE | 2019-09-20 11:45 | Pulmonology Progress Note ---
Assessment/Plan Assessment/Plan ASSESSMENT Atelectasis S/p Brantley pouch revision Ileus/SBO PLAN Continue pulmonary regimen and hygiene Off Zosyn Mobilize and ambulate early Will follow Subjective Interval Events: None new Constitutional: Reports: no symptoms HEENT: Repors: no symptoms Respiratory: Reports: no symptoms Cardiovascular: Reports: no symptoms Gastrointestinal/Abdominal: Reports: no symptoms Allergies: Coded Allergies: ADHESIVE TAPE (Verified Adverse Reaction, Intermediate, Rash, 08/27/19) CLEAR TAPE Objective Last 24 Hour Vital Signs Date Time Temp Pulse Resp B/P (MAP) Pulse Ox O2 Delivery O2 Flow Rate FiO2 09/20/19 09:00 Room Air 09/20/19 08:00 98.4 89 16 105/61 (76) 94 09/20/19 04:00 97.6 76 18 96/58 (71) 97 09/20/19 00:00 97.7 83 18 100/55 (70) 96 09/19/19 23:07 98.0 09/19/19 21:00 Room Air 09/19/19 20:00 97.4 84 16 105/55 (72) 98 09/19/19 16:00 98.0 81 14 119/65 (83) 98 09/19/19 12:00 98.3 89 14 124/107 (113) 98 Intake and Output 09/19/19 09/20/19 19:00 07:00 Intake Total 1840 ml 1185 ml Output Total 1170 ml 1745 ml Balance 670 ml -560 ml Intake Oral 840 ml 360 ml IV Total 1000 ml 825 ml Output Urine Total 1000 ml 1400 ml Other 170 ml 345 ml General Appearance: no acute distress HEENT: normocephalic Respiratory/Chest: chest wall non-tender, lungs clear Cardiovascular: normal peripheral pulses Abdomen: normal bowel sounds Current Medications Medications (Trade) Dose Ordered Sig/Jori Route PRN Reason Start Time Stop Time Status Last Admin Dose Admin Acetaminophen (Tylenol) 1,000 mg Q4H PRN ORAL temp>100.2 or headache 08/29/19 14:32 09/28/19 14:31 09/11/19 22:18 Acetaminophen/ Hydrocodone Bitart ([place] 5/325) 1 tab Q4H PRN ORAL Moderate Pain (Pain Scale 4-6) 09/17/19 17:35 09/24/19 17:34 09/19/19 22:37 Ascorbic Acid (Vitamin C) 500 mg Q4H PRN ORAL thick ileostomy effluent 09/06/19 16:00 10/06/19 15:59 09/15/19 06:15 Bupropion HCl (Wellbutrin SR) 200 mg TWICE A DAY ORAL 08/29/19 18:00 09/26/19 17:59 09/20/19 09:11 Carisoprodol (Soma) 350 mg BEDTIME PRN ORAL NECK SPASM 08/29/19 14:32 09/28/19 14:31 09/09/19 20:38 Chlorhexidine Gluconate (Kathryn-Hex 2%) 1 applic DAILY@2000 TOPIC 08/29/19 20:00 09/26/19 19:59 09/19/19 20:08 Citalopram Hydrobromide (celeXA) 40 mg DAILY ORAL 08/30/19 09:00 09/27/19 08:59 09/20/19 09:11 Dextrose 1,000 ml @ 0 mls/hr Q24H PRN IV PN interrupted or unavailable 08/29/19 07:15 09/28/19 07:14 Dextrose (Dextrose 50%) 25 ml Q30M PRN IV Hypoglycemia 08/29/19 14:45 09/28/19 07:14 Dextrose (Dextrose 50%) 50 ml Q30M PRN IV Hypoglycemia 08/29/19 14:45 09/28/19 07:14 Diphenhydramine HCl (Benadryl) 25 mg Q6H PRN IVP Itching/Pruritis 08/29/19 14:33 09/28/19 14:32 Fat Emulsion Intravenous 216 ml/Amino Acids/ Electrolytes/ Dextrose 1,800 ml @ 75 mls/hr Q24H IV 09/11/19 20:00 10/11/19 19:59 09/19/19 20:08 Fluticasone Propionate (Flonase) 1 spray TWICE A DAY NASAL 08/29/19 18:00 09/26/19 17:59 09/14/19 17:30 Insulin Aspart (NovoLOG) Q6HR SUBQ 08/30/19 00:00 09/29/19 00:00 09/19/19 18:36 Lorazepam (Ativan) 1 mg Q4H PRN SL Muscle Spasm 09/15/19 13:00 09/22/19 12:59 09/20/19 11:06 Mupirocin (Bactroban Oint) 1 applic THREE TIMES A DAY TOPIC 09/18/19 09:00 09/23/19 08:59 09/20/19 09:12 Ondansetron HCl (Zofran) 4 mg Q4H PRN IVP Nausea & Vomiting 08/29/19 14:34 09/28/19 14:33 09/09/19 03:36 Pantoprazole (Protonix) 40 mg DAILY IVP 08/30/19 09:00 09/28/19 08:59 09/20/19 09:11 Patient Own Medication (Patient's Own Med) 1 ea DAILY ORAL 09/07/19 09:00 10/07/19 08:59 09/20/19 09:14 Phytonadione (Vitamin K) 10 mg ONCE A WEEK SUBQ 08/30/19 09:00 09/29/19 08:59 09/20/19 09:14 Trazodone HCl (Desyrel) 200 mg BEDTIME ORAL 08/29/19 21:00 09/26/19 20:59 09/19/19 21:45 Shree Pope MD Sep 20, 2019 11:45
[2019-09-20 12:00] VITALS: BP 103/61
[2019-09-20] MEDS: HYDROcodone/Acetamin 5/325 tab ORAL PRN ×2 (15:10→20:25)
[2019-09-20 16:00] VITALS: BP 106/62
[2019-09-20 20:00] VITALS: BP 93/59
[2019-09-20] MEDS: Dyna-Hex 2% Top Sol 2oz TOPIC SCH (20:23)
[2019-09-20] MEDS: TraZODone 100mg tab ORAL SCH (22:54)
[2019-09-21] VITALS: BP 109/61
[2019-09-21] MEDS: HYDROcodone/Acetamin 5/325 tab ORAL PRN ×2 (03:46→21:16)
[2019-09-21 04:00] VITALS: BP 101/65
[2019-09-21 06:17] LABS: BASOPHILS % (AUTO) 0.9 % (0.0-2.0); EOSINOPHILS % (AUTO) 4.7 % (0.0-3.0); HEMATOCRIT 33.1 % (37.0-47.0); HEMOGLOBIN 10.9 G/DL (12.0-16.0); LYMPHOCYTES % (AUTO) 14.3 % (20.0-45.0); MEAN CORPUSCULAR VOLUME 89 FL (80-99); MONOCYTES % (AUTO) 7.7 % (1.0-10.0); NEUTROPHILS % (AUTO) 72.2 % (45.0-75.0); PLATELET COUNT 191 K/UL (150-450); RED BLOOD COUNT 3.71 M/UL (4.20-5.40); RED CELL DISTRIBUTION WIDTH 15.5 % (11.6-14.8); WHITE BLOOD COUNT 6.4 K/UL (4.8-10.8)
[2019-09-21 06:42] LABS: ALANINE AMINOTRANSFERASE 21 U/L (12-78); ALBUMIN 2.5 G/DL (3.4-5.0); ALBUMIN/GLOBULIN RATIO 0.6 (1.0-2.7); ALKALINE PHOSPHATASE 157 U/L (46-116); ANION GAP 6 mmol/L (5-15); ASPARTATE AMINO TRANSFERASE 18 U/L (15-37); BILIRUBIN,TOTAL 0.3 MG/DL (0.2-1.0); BLOOD UREA NITROGEN 17 mg/dL (7-18); CALCIUM 8.7 MG/DL (8.5-10.1); CARBON DIOXIDE 29 MMOL/L (21-32); CHLORIDE 106 MMOL/L (98-107); CREATININE 0.9 MG/DL (0.55-1.30); POTASSIUM 3.9 MMOL/L (3.5-5.1); SODIUM 141 MMOL/L (136-145)
[2019-09-21 08:00] VITALS: BP 111/63
[2019-09-21] MEDS: Flonase Nasal Inhaler 16gm NASAL SCH ×2 (09:00→18:00)
[2019-09-21] MEDS: BuPROPion SR 100mg tab ORAL SCH ×2 (09:59→18:43)
[2019-09-21] MEDS: Citalopram Hydrobromide 10mg Tab ORAL SCH (09:59)
[2019-09-21] MEDS ORDERED: NS Irrig 1000ml ONE (10:00)
[2019-09-21] MEDS: Pantoprazole Inj IVP SCH (10:00)
[2019-09-21] MEDS: MYRBETRIQ 50 MG ORAL SCH (10:06)
--- NOTE | 2019-09-21 10:35 | General Progress Note ---
Progress Note Progress Note AVSS Improving thought slowly. Ambulating but needs support of Physical Therapy. Abdomen soft, well healed incision and stoma Urine 1525 Kock pouch ileo 305 Eating 50% of BCIR diet Labs stable Imp. Improving Plan: RN supervised Kock Pouch self-intubations q3h am to hs and prn continue strict I&O Project Internship note appreciated - patient needs SNF for additional rehab , ability to ambulate independently, etc Lalo Meadows MD Sep 21, 2019 10:35
--- NOTE | 2019-09-21 10:45 | Pulmonology Progress Note ---
Assessment/Plan Assessment/Plan ASSESSMENT Atelectasis S/p Brantley pouch revision Ileus/SBO PLAN Continue pulmonary regimen and hygiene Off Zosyn Mobilize and ambulate Will follow Subjective Interval Events: None new Constitutional: Reports: no symptoms HEENT: Repors: no symptoms Respiratory: Reports: no symptoms Cardiovascular: Reports: no symptoms Gastrointestinal/Abdominal: Reports: no symptoms Allergies: Coded Allergies: ADHESIVE TAPE (Verified Adverse Reaction, Intermediate, Rash, 08/27/19) CLEAR TAPE Objective Last 24 Hour Vital Signs Date Time Temp Pulse Resp B/P (MAP) Pulse Ox O2 Delivery O2 Flow Rate FiO2 09/21/19 08:00 98.1 80 14 111/63 (79) 09/21/19 04:00 97.7 84 18 101/65 (77) 95 09/21/19 00:00 98.5 83 18 109/61 (77) 98 09/20/19 21:00 Room Air 09/20/19 20:00 99.5 87 18 93/59 (70) 97 09/20/19 16:00 98.8 81 16 106/62 (77) 95 09/20/19 15:40 98.9 09/20/19 12:00 98.9 97 16 103/61 (75) 95 Intake and Output 09/20/19 09/21/19 19:00 07:00 Intake Total 1633 ml 310 ml Output Total 1010 ml 870 ml Balance 623 ml -560 ml Intake Oral 808 ml 250 ml IV Total 825 ml 60 ml Output Urine Total 900 ml 675 ml Other 110 ml 195 ml # Voids 5 General Appearance: no acute distress HEENT: normocephalic Respiratory/Chest: chest wall non-tender Cardiovascular: normal peripheral pulses Abdomen: hypoactive bowel sounds Laboratory Tests 09/21/19 05:20: White Blood Count 6.4, Red Blood Count 3.71L, Hemoglobin 10.9L, Hematocrit 33.1L , Mean Corpuscular Volume 89, Mean Corpuscular Hemoglobin 29.3, Mean Corpuscular Hemoglobin Concent 32.9, Red Cell Distribution Width 15.5H, Platelet Count 191, Mean Platelet Volume 6.8, Neutrophils (%) (Auto) 72.2, Lymphocytes (%) (Auto) 14.3L, Monocytes (%) (Auto) 7.7, Eosinophils (%) (Auto) 4.7H, Basophils (%) (Auto) 0.9, Sodium Level 141, Potassium Level 3.9, Chloride Level 106, Carbon Dioxide Level 29, Anion Gap 6, Blood Urea Nitrogen 17, Creatinine 0.9, Estimat Glomerular Filtration Rate > 60, Glucose Level 82, Calcium Level 8.7, Total Bilirubin 0.3, Aspartate Amino Transf (AST/SGOT) 18, Alanine Aminotransferase (ALT/SGPT) 21, Alkaline Phosphatase 157H, Total Protein 6.7, Albumin 2.5L, Globulin 4.2, Albumin/Globulin Ratio 0.6L Current Medications Medications (Trade) Dose Ordered Sig/Jori Route PRN Reason Start Time Stop Time Status Last Admin Dose Admin Acetaminophen (Tylenol) 1,000 mg Q4H PRN ORAL temp>100.2 or headache 08/29/19 14:32 09/28/19 14:31 09/11/19 22:18 Acetaminophen/ Hydrocodone Bitart ([place] 5/325) 1 tab Q4H PRN ORAL Moderate Pain (Pain Scale 4-6) 09/17/19 17:35 09/24/19 17:34 09/21/19 03:46 Ascorbic Acid (Vitamin C) 500 mg Q4H PRN ORAL thick ileostomy effluent 09/06/19 16:00 10/06/19 15:59 09/15/19 06:15 Bupropion HCl (Wellbutrin SR) 200 mg TWICE A DAY ORAL 08/29/19 18:00 09/26/19 17:59 09/21/19 09:59 Carisoprodol (Soma) 350 mg BEDTIME PRN ORAL NECK SPASM 08/29/19 14:32 09/28/19 14:31 09/09/19 20:38 Chlorhexidine Gluconate (Kathryn-Hex 2%) 1 applic DAILY@2000 TOPIC 08/29/19 20:00 09/26/19 19:59 09/20/19 20:23 Citalopram Hydrobromide (celeXA) 40 mg DAILY ORAL 08/30/19 09:00 09/27/19 08:59 09/21/19 09:59 Diphenhydramine HCl (Benadryl) 25 mg Q6H PRN IVP Itching/Pruritis 08/29/19 14:33 09/28/19 14:32 Fluticasone Propionate (Flonase) 1 spray TWICE A DAY NASAL 08/29/19 18:00 09/26/19 17:59 09/14/19 17:30 Lorazepam (Ativan) 1 mg Q4H PRN SL Muscle Spasm 09/15/19 13:00 09/22/19 12:59 09/20/19 11:06 Mupirocin (Bactroban Oint) 1 applic THREE TIMES A DAY TOPIC 09/18/19 09:00 09/23/19 08:59 09/20/19 17:26 Patient Own Medication (Patient's Own Med) 1 ea DAILY ORAL 09/07/19 09:00 10/07/19 08:59 09/21/19 10:06 Trazodone HCl (Desyrel) 200 mg BEDTIME ORAL 08/29/19 21:00 09/26/19 20:59 09/20/19 22:54 Shree Pope MD Sep 21, 2019 10:45
[2019-09-21 12:00] VITALS: BP 116/75
[2019-09-21] MEDS: LORazepam 1mg tab SL PRN (14:18)
[2019-09-21 16:00] VITALS: BP 109/68
[2019-09-21] MEDS: Miconazole Vag Cr 45gm Tube (100mg per applicator) VAGIN SCH ×2 (18:42→21:16)
[2019-09-21 20:00] VITALS: BP 101/66
[2019-09-21] MEDS ORDERED: MICONAZOLE VAGIN SCH (21:00)
[2019-09-21] MEDS: Dyna-Hex 2% Top Sol 2oz TOPIC SCH (21:16)
[2019-09-21] MEDS: TraZODone 100mg tab ORAL SCH (23:11)
[2019-09-22] VITALS: BP 116/60
[2019-09-22 04:40] VITALS: BP 104/56
[2019-09-22 08:00] VITALS: BP 107/65
[2019-09-22] MEDS: Flonase Nasal Inhaler 16gm NASAL SCH ×2 (09:00→18:00)
[2019-09-22] MEDS: Citalopram Hydrobromide 10mg Tab ORAL SCH (09:24)
[2019-09-22] MEDS: MYRBETRIQ 50 MG ORAL SCH (09:25)
[2019-09-22] MEDS: BuPROPion SR 100mg tab ORAL SCH ×2 (09:25→18:19)
--- NOTE | 2019-09-22 09:53 | Pulmonology Progress Note ---
Assessment/Plan Assessment/Plan ASSESSMENT Atelectasis S/p Brantley pouch revision Ileus/SBO; improving PLAN Continue pulmonary regimen and hygiene Off Zosyn Mobilize and ambulate Will follow No fever or leucocytosis Subjective Interval Events: No fever or leucocytosis Constitutional: Reports: no symptoms HEENT: Repors: no symptoms Respiratory: Reports: no symptoms Cardiovascular: Reports: no symptoms Gastrointestinal/Abdominal: Reports: no symptoms Allergies: Coded Allergies: ADHESIVE TAPE (Verified Adverse Reaction, Intermediate, Rash, 08/27/19) CLEAR TAPE Objective Last 24 Hour Vital Signs Date Time Temp Pulse Resp B/P (MAP) Pulse Ox O2 Delivery O2 Flow Rate FiO2 09/22/19 08:00 98.3 83 20 107/65 (79) 99 09/22/19 04:40 98.4 78 16 104/56 (72) 96 09/22/19 00:00 97.8 80 18 116/60 (78) 98 09/21/19 21:00 Room Air 09/21/19 20:00 98.8 86 18 101/66 (78) 95 09/21/19 16:00 99.0 83 15 109/68 (82) 96 09/21/19 12:00 98.1 74 14 116/75 (89) 95 Intake and Output 09/21/19 09/22/19 18:59 06:59 Intake Total 718 ml 200 ml Output Total 960 ml 850 ml Balance -242 ml -650 ml Intake Oral 718 ml 200 ml Output Urine Total 700 ml 725 ml Other 260 ml 125 ml General Appearance: no acute distress HEENT: normocephalic Respiratory/Chest: chest wall non-tender, lungs clear Cardiovascular: normal peripheral pulses Current Medications Medications (Trade) Dose Ordered Sig/Jori Route PRN Reason Start Time Stop Time Status Last Admin Dose Admin Acetaminophen (Tylenol) 1,000 mg Q4H PRN ORAL temp>100.2 or headache 08/29/19 14:32 09/28/19 14:31 09/11/19 22:18 Acetaminophen/ Hydrocodone Bitart ([place] 5/325) 1 tab Q4H PRN ORAL Moderate Pain (Pain Scale 4-6) 09/17/19 17:35 09/24/19 17:34 09/21/19 21:16 Ascorbic Acid (Vitamin C) 500 mg Q4H PRN ORAL thick ileostomy effluent 09/06/19 16:00 10/06/19 15:59 09/15/19 06:15 Bupropion HCl (Wellbutrin SR) 200 mg TWICE A DAY ORAL 08/29/19 18:00 09/26/19 17:59 09/22/19 09:25 Carisoprodol (Soma) 350 mg Q8H PRN ORAL NECK SPASM 09/21/19 16:15 10/21/19 16:14 09/21/19 18:43 Chlorhexidine Gluconate (Kathryn-Hex 2%) 1 applic DAILY@2000 TOPIC 08/29/19 20:00 09/26/19 19:59 09/21/19 21:16 Citalopram Hydrobromide (celeXA) 40 mg DAILY ORAL 08/30/19 09:00 09/27/19 08:59 09/22/19 09:24 Diphenhydramine HCl (Benadryl) 25 mg Q6H PRN IVP Itching/Pruritis 08/29/19 14:33 09/28/19 14:32 Fluticasone Propionate (Flonase) 1 spray TWICE A DAY NASAL 08/29/19 18:00 09/26/19 17:59 09/14/19 17:30 Lorazepam (Ativan) 1 mg Q4H PRN SL Muscle Spasm 09/15/19 13:00 09/22/19 12:59 09/21/19 14:18 Miconazole Nitrate (Monistat) 1 applic QHS VAGIN 09/21/19 16:06 10/21/19 16:05 09/21/19 21:16 Mupirocin (Bactroban Oint) 1 applic THREE TIMES A DAY TOPIC 09/18/19 09:00 09/23/19 08:59 09/21/19 18:44 Patient Own Medication (Patient's Own Med) 1 ea DAILY ORAL 09/07/19 09:00 10/07/19 08:59 09/22/19 09:25 Trazodone HCl (Desyrel) 200 mg BEDTIME ORAL 08/29/19 21:00 09/26/19 20:59 09/21/19 23:11 Shree Pope MD Sep 22, 2019 09:53
--- NOTE | 2019-09-22 10:21 | General Progress Note ---
Progress Note Progress Note AVSS Able to self-intubate her Kock Pouch with RN assistance and supervision. Eating small amounts Abdomen soft, flat. Gastrostomy site healing nicely Has vaginal yeast infection Urine 1425 Kock pouch 385 Imp. Improving Plan: Continue RN supervised Kock pouch self-intubations Monistat topical discharge planning - may need SNF Ensure 2/day Laol Meadows MD Sep 22, 2019 10:21
[2019-09-22 11:50] VITALS: BP 97/52
[2019-09-22] MEDS: Ascorbic Acid 500mg tab ORAL PRN (12:50)
[2019-09-22] MEDS: LORazepam 1mg tab SL PRN (15:28)
[2019-09-22 15:49] VITALS: BP 113/65
[2019-09-22 20:00] VITALS: BP 9/61
[2019-09-22] MEDS: Dyna-Hex 2% Top Sol 2oz TOPIC SCH (20:44)
[2019-09-22] MEDS: HYDROcodone/Acetamin 5/325 tab ORAL PRN (20:45)
[2019-09-22] MEDS: Miconazole Vag Cr 45gm Tube (100mg per applicator) VAGIN SCH (22:17)
[2019-09-22] MEDS: TraZODone 100mg tab ORAL SCH (22:18)
[2019-09-23 04:00] VITALS: BP 120/70
[2019-09-23] MEDS: HYDROcodone/Acetamin 5/325 tab ORAL PRN ×3 (04:56→23:12)
[2019-09-23 06:29] LABS: BASOPHILS % (AUTO) 1.1 % (0.0-2.0); EOSINOPHILS % (AUTO) 3.8 % (0.0-3.0); HEMATOCRIT 38.2 % (37.0-47.0); HEMOGLOBIN 12.6 G/DL (12.0-16.0); LYMPHOCYTES % (AUTO) 19.4 % (20.0-45.0); MEAN CORPUSCULAR VOLUME 89 FL (80-99); MONOCYTES % (AUTO) 7.6 % (1.0-10.0); NEUTROPHILS % (AUTO) 68.1 % (45.0-75.0); PLATELET COUNT 213 K/UL (150-450); RED BLOOD COUNT 4.31 M/UL (4.20-5.40); RED CELL DISTRIBUTION WIDTH 15.8 % (11.6-14.8); WHITE BLOOD COUNT 6.5 K/UL (4.8-10.8)
[2019-09-23 06:54] LABS: ALANINE AMINOTRANSFERASE 26 U/L (12-78); ALBUMIN 2.9 G/DL (3.4-5.0); ALBUMIN/GLOBULIN RATIO 0.6 (1.0-2.7); ALKALINE PHOSPHATASE 189 U/L (46-116); ANION GAP 9 mmol/L (5-15); ASPARTATE AMINO TRANSFERASE 20 U/L (15-37); BILIRUBIN,TOTAL 0.4 MG/DL (0.2-1.0); BLOOD UREA NITROGEN 18 mg/dL (7-18); CALCIUM 9.1 MG/DL (8.5-10.1); CARBON DIOXIDE 28 MMOL/L (21-32); CHLORIDE 104 MMOL/L (98-107); CREATININE 1.1 MG/DL (0.55-1.30); POTASSIUM 3.5 MMOL/L (3.5-5.1); SODIUM 141 MMOL/L (136-145)
[2019-09-23 08:00] VITALS: BP 108/54
[2019-09-23] MEDS: Flonase Nasal Inhaler 16gm NASAL SCH ×3 (09:00→18:00)
[2019-09-23] MEDS ORDERED: Miconazole Vag Cr 45gm Tube (100mg per applicator) VAGIN SCH (09:00)
[2019-09-23] MEDS: Citalopram Hydrobromide 10mg Tab ORAL SCH (09:23)
[2019-09-23] MEDS: MYRBETRIQ 50 MG ORAL SCH (09:23)
[2019-09-23] MEDS: BuPROPion SR 100mg tab ORAL SCH ×2 (09:23→18:12)
--- NOTE | 2019-09-23 10:05 | Pulmonology Progress Note ---
Assessment/Plan Assessment/Plan ASSESSMENT Atelectasis S/p Brantley pouch revision Ileus/SBO; improving PLAN Continue pulmonary regimen and hygiene Off Zosyn Mobilize and ambulate Will follow No fever or leucocytosis Subjective Interval Events: None new reported Constitutional: Reports: no symptoms HEENT: Repors: no symptoms Respiratory: Reports: no symptoms Cardiovascular: Reports: no symptoms Gastrointestinal/Abdominal: Reports: no symptoms Allergies: Coded Allergies: ADHESIVE TAPE (Verified Adverse Reaction, Intermediate, Rash, 08/27/19) CLEAR TAPE Objective Last 24 Hour Vital Signs Date Time Temp Pulse Resp B/P (MAP) Pulse Ox O2 Delivery O2 Flow Rate FiO2 09/23/19 08:00 98.3 86 16 108/54 (72) 95 09/23/19 04:00 98.0 83 17 120/70 (87) 94 09/22/19 21:00 Room Air 09/22/19 20:00 98.9 87 18 9/61 (44) 95 09/22/19 15:49 99.1 85 20 113/65 (81) 97 09/22/19 11:50 97.7 85 19 97/52 (67) 96 09/22/19 10:39 97.7 Intake and Output 09/22/19 09/23/19 18:59 06:59 Intake Total 480 ml 774 ml Output Total 1130 ml 660 ml Balance -650 ml 114 ml Intake Oral 480 ml 774 ml Output Urine Total 550 ml 450 ml Other 580 ml 210 ml General Appearance: no acute distress HEENT: normocephalic Respiratory/Chest: chest wall non-tender, lungs clear Cardiovascular: normal peripheral pulses, normal rate Abdomen: normal bowel sounds Laboratory Tests 09/23/19 05:30: White Blood Count 6.5, Red Blood Count 4.31, Hemoglobin 12.6, Hematocrit 38.2, Mean Corpuscular Volume 89, Mean Corpuscular Hemoglobin 29.2, Mean Corpuscular Hemoglobin Concent 32.9, Red Cell Distribution Width 15.8H, Platelet Count 213, Mean Platelet Volume 6.9, Neutrophils (%) (Auto) 68.1, Lymphocytes (%) (Auto) 19.4L, Monocytes (%) (Auto) 7.6, Eosinophils (%) (Auto) 3.8H, Basophils (%) ( Auto) 1.1, Sodium Level 141, Potassium Level 3.5, Chloride Level 104, Carbon Dioxide Level 28, Anion Gap 9, Blood Urea Nitrogen 18, Creatinine 1.1, Estimat Glomerular Filtration Rate 49.4, Glucose Level 84, Calcium Level 9.1, Total Bilirubin 0.4, Aspartate Amino Transf (AST/SGOT) 20, Alanine Aminotransferase ( ALT/SGPT) 26, Alkaline Phosphatase 189H, Total Protein 7.6, Albumin 2.9L, Globulin 4.7, Albumin/Globulin Ratio 0.6L Current Medications Medications (Trade) Dose Ordered Sig/Jori Route PRN Reason Start Time Stop Time Status Last Admin Dose Admin Acetaminophen (Tylenol) 1,000 mg Q4H PRN ORAL temp>100.2 or headache 08/29/19 14:32 09/28/19 14:31 09/11/19 22:18 Acetaminophen/ Hydrocodone Bitart ([place] 5/325) 1 tab Q4H PRN ORAL Moderate Pain (Pain Scale 4-6) 09/17/19 17:35 09/24/19 17:34 09/23/19 04:56 Ascorbic Acid (Vitamin C) 500 mg Q4H PRN ORAL thick ileostomy effluent 09/06/19 16:00 10/06/19 15:59 09/22/19 12:50 Bupropion HCl (Wellbutrin SR) 200 mg TWICE A DAY ORAL 08/29/19 18:00 09/26/19 17:59 09/23/19 09:23 Carisoprodol (Soma) 350 mg Q8H PRN ORAL NECK SPASM 09/21/19 16:15 10/21/19 16:14 09/22/19 10:09 Chlorhexidine Gluconate (Kathryn-Hex 2%) 1 applic DAILY@2000 TOPIC 08/29/19 20:00 09/26/19 19:59 09/22/19 20:44 Citalopram Hydrobromide (celeXA) 40 mg DAILY ORAL 08/30/19 09:00 09/27/19 08:59 09/23/19 09:23 Diphenhydramine HCl (Benadryl) 25 mg Q6H PRN IVP Itching/Pruritis 08/29/19 14:33 09/28/19 14:32 Fluticasone Propionate (Flonase) 1 spray TWICE A DAY NASAL 08/29/19 18:00 09/26/19 17:59 09/14/19 17:30 Lorazepam (Ativan) 1 mg Q4H PRN SL Muscle Spasm 09/22/19 10:12 09/29/19 10:11 09/22/19 15:28 Miconazole Nitrate (Monistat) 1 applic DAILY PRN VAGIN Itching 09/23/19 09:00 10/23/19 08:59 Mupirocin (Bactroban Oint) 1 applic THREE TIMES A DAY TOPIC 09/22/19 13:00 09/27/19 12:59 09/23/19 10:02 Patient Own Medication (Patient's Own Med) 1 ea DAILY ORAL 09/07/19 09:00 10/07/19 08:59 09/23/19 09:23 Trazodone HCl (Desyrel) 200 mg BEDTIME ORAL 08/29/19 21:00 09/26/19 20:59 09/22/19 22:18 Shree Pope MD Sep 23, 2019 10:05
[2019-09-23] MEDS: LORazepam 1mg tab SL PRN (10:27)
[2019-09-23 12:00] VITALS: BP 102/58
--- NOTE | 2019-09-23 14:12 | General Progress Note ---
Progress Note Progress Note Not eating every meal but taking supplements. Intubating her Kock pouch without difficulty. Abdomen soft Hgb 12.6 albumin up 2.9 Imp. slowly improving Plan: Discharge planning re possible SNF placement for additional rehab Lalo Meadows MD Sep 23, 2019 14:12
[2019-09-23 16:00] VITALS: BP 112/62
[2019-09-23 18:37] LABS: APPEARANCE,URINE CLEAR; BILIRUBIN, URINE NEGATIVE (NEGATIVE); COLOR,URINE AMBER; GLUCOSE, URINE (UA) NEGATIVE (NEGATIVE); KETONES,URINE 1+ (NEGATIVE); LEUKOCYTE ESTERASE ,URINE NEGATIVE (NEGATIVE); NITRITE,URINE NEGATIVE (NEGATIVE); PH,URINE 5 (4.5-8.0); PROTEIN,URINE NEGATIVE (NEGATIVE); UROBILINOGEN,URINE NORMAL MG/DL (0.0-1.0)
[2019-09-23 20:00] VITALS: BP 101/62
[2019-09-23] MEDS: TraZODone 100mg tab ORAL SCH (21:04)
[2019-09-23] MEDS: Miconazole Vag Cr 45gm Tube (100mg per applicator) VAGIN PRN (21:18)
[2019-09-24] VITALS (7 sets, daily range): BP systolic 99–112; BP diastolic 53–64
[2019-09-24] MEDS: LORazepam 1mg tab SL PRN (00:27)
[2019-09-24] MEDS: Flonase Nasal Inhaler 16gm NASAL SCH ×2 (09:00→18:00)
[2019-09-24] MEDS: BuPROPion SR 100mg tab ORAL SCH ×2 (09:16→17:40)
[2019-09-24] MEDS: Citalopram Hydrobromide 10mg Tab ORAL SCH (09:16)
[2019-09-24] MEDS: MYRBETRIQ 50 MG ORAL SCH (09:16)
[2019-09-24] MEDS: Ascorbic Acid 500mg tab ORAL PRN (09:35)
--- NOTE | 2019-09-24 14:00 | Pulmonology Progress Note ---
Assessment/Plan Assessment/Plan ASSESSMENT Atelectasis S/p Brantley pouch revision Ileus/SBO; improving PLAN Continue pulmonary regimen and hygiene Off Zosyn Mobilize and ambulate Will follow No fever or leucocytosis Subjective Interval Events: none Constitutional: Reports: no symptoms HEENT: Repors: no symptoms Respiratory: Reports: no symptoms Cardiovascular: Reports: no symptoms Gastrointestinal/Abdominal: Reports: no symptoms Allergies: Coded Allergies: ADHESIVE TAPE (Verified Adverse Reaction, Intermediate, Rash, 08/27/19) CLEAR TAPE Objective Last 24 Hour Vital Signs Date Time Temp Pulse Resp B/P (MAP) Pulse Ox O2 Delivery O2 Flow Rate FiO2 09/24/19 12:00 98.1 91 16 107/64 (78) 98 09/24/19 09:00 Room Air 09/24/19 08:00 98.5 71 14 100/58 (72) 100 09/24/19 04:00 98.2 77 17 105/64 (78) 96 09/24/19 00:00 98.1 83 16 100/61 (74) 99 09/23/19 21:00 Room Air 09/23/19 20:00 98.1 84 17 101/62 (75) 95 09/23/19 16:00 98.2 80 16 112/62 (79) 95 Intake and Output 09/23/19 09/24/19 18:59 06:59 Intake Total 1050 ml 200 ml Output Total 1505 ml 830 ml Balance -455 ml -630 ml Intake Oral 1050 ml 200 ml Output Urine Total 575 ml 500 ml Other 930 ml 330 ml General Appearance: no acute distress HEENT: normocephalic Respiratory/Chest: chest wall non-tender, lungs clear Cardiovascular: normal peripheral pulses Abdomen: normal bowel sounds Laboratory Tests 09/23/19 17:55: Urine Color [place], Urine Appearance Clear, Urine pH 5, Urine Specific [place] 1.020, Urine Protein Negative, Urine Glucose (UA) Negative, Urine Ketones 1+H, Urine Blood 3+H, Urine Nitrite Negative, Urine Bilirubin Negative, Urine Ictotest Negative, Urine Urobilinogen Normal, Urine Leukocyte Esterase Negative , Urine RBC 10-15H, Urine WBC 0-2, Urine Squamous Epithelial Cells ModerateH, Urine Bacteria Few Current Medications Medications (Trade) Dose Ordered Sig/Jori Route PRN Reason Start Time Stop Time Status Last Admin Dose Admin Acetaminophen (Tylenol) 1,000 mg Q4H PRN ORAL temp>100.2 or headache 08/29/19 14:32 09/28/19 14:31 09/11/19 22:18 Acetaminophen/ Hydrocodone Bitart ([place] 5/325) 1 tab Q4H PRN ORAL Moderate Pain (Pain Scale 4-6) 09/23/19 14:12 09/30/19 14:11 09/23/19 23:12 Ascorbic Acid (Vitamin C) 500 mg Q4H PRN ORAL thick ileostomy effluent 09/06/19 16:00 10/06/19 15:59 09/24/19 09:35 Bupropion HCl (Wellbutrin SR) 200 mg TWICE A DAY ORAL 08/29/19 18:00 09/26/19 17:59 09/24/19 09:16 Carisoprodol (Soma) 350 mg Q8H PRN ORAL NECK SPASM 09/21/19 16:15 10/21/19 16:14 09/22/19 10:09 Citalopram Hydrobromide (celeXA) 40 mg DAILY ORAL 08/30/19 09:00 09/27/19 08:59 09/24/19 09:16 Diphenhydramine HCl (Benadryl) 25 mg Q6H PRN IVP Itching/Pruritis 08/29/19 14:33 09/28/19 14:32 Fluticasone Propionate (Flonase) 1 spray TWICE A DAY NASAL 08/29/19 18:00 09/26/19 17:59 09/14/19 17:30 Lorazepam (Ativan) 1 mg Q4H PRN SL Muscle Spasm 09/22/19 10:12 09/29/19 10:11 09/24/19 00:27 Miconazole Nitrate (Monistat) 1 applic DAILY PRN VAGIN Itching 09/23/19 09:00 10/23/19 08:59 09/23/19 21:18 Mupirocin (Bactroban Oint) 1 applic THREE TIMES A DAY TOPIC 09/22/19 13:00 09/27/19 12:59 09/24/19 09:15 Patient Own Medication (Patient's Own Med) 1 ea DAILY ORAL 09/07/19 09:00 10/07/19 08:59 09/24/19 09:16 Trazodone HCl (Desyrel) 200 mg BEDTIME ORAL 08/29/19 21:00 09/26/19 20:59 09/23/19 21:04 Shree Pope MD Sep 24, 2019 14:00
[2019-09-24] MEDS: HYDROcodone/Acetamin 5/325 tab ORAL PRN (18:17)
[2019-09-24] MEDS: TraZODone 100mg tab ORAL SCH (21:31)
[2019-09-25 04:25] VITALS: BP 110/66
[2019-09-25] MEDS: HYDROcodone/Acetamin 5/325 tab ORAL PRN ×2 (05:38→13:30)
[2019-09-25] MEDS: Ascorbic Acid 500mg tab ORAL PRN (05:42)
[2019-09-25] MEDS: Miconazole Vag Cr 45gm Tube (100mg per applicator) VAGIN PRN (07:18)
[2019-09-25 08:00] VITALS: BP 115/66
[2019-09-25] MEDS: Flonase Nasal Inhaler 16gm NASAL SCH (08:38)
[2019-09-25] MEDS: MYRBETRIQ 50 MG ORAL SCH (08:38)
[2019-09-25] MEDS: BuPROPion SR 100mg tab ORAL SCH (08:40)
[2019-09-25] MEDS: Citalopram Hydrobromide 10mg Tab ORAL SCH (08:40)
--- NOTE | 2019-09-25 09:03 | Pulmonology Progress Note ---
Assessment/Plan Assessment/Plan ASSESSMENT Atelectasis S/p Brantley pouch revision Ileus/SBO; improving PLAN Continue pulmonary regimen and hygiene Off Zosyn Mobilize and ambulate Will follow as needed only No fever or leucocytosis Subjective Interval Events: Diet improved Constitutional: Reports: no symptoms HEENT: Repors: no symptoms Respiratory: Reports: no symptoms Cardiovascular: Reports: no symptoms Allergies: Coded Allergies: ADHESIVE TAPE (Verified Adverse Reaction, Intermediate, Rash, 08/27/19) CLEAR TAPE Objective Last 24 Hour Vital Signs Date Time Temp Pulse Resp B/P (MAP) Pulse Ox O2 Delivery O2 Flow Rate FiO2 09/25/19 08:00 98.0 77 20 115/66 (82) 95 09/25/19 04:25 97.9 82 16 110/66 (81) 96 09/24/19 23:59 97.0 81 16 99/64 (76) 95 09/24/19 20:56 Room Air 09/24/19 20:24 98.1 82 16 112/53 (72) 94 09/24/19 16:00 98.0 84 15 102/62 (75) 98 09/24/19 12:00 98.1 91 16 107/64 (78) 98 Intake and Output 09/24/19 09/25/19 19:00 07:00 Intake Total 1430 ml 360 ml Output Total 1310 ml 400 ml Balance 120 ml -40 ml Intake Oral 1430 ml 360 ml Output Urine Total 650 ml 200 ml Other 660 ml 200 ml General Appearance: no acute distress HEENT: atraumatic Respiratory/Chest: chest wall non-tender Cardiovascular: normal peripheral pulses Abdomen: normal bowel sounds Current Medications Medications (Trade) Dose Ordered Sig/Jori Route PRN Reason Start Time Stop Time Status Last Admin Dose Admin Acetaminophen (Tylenol) 1,000 mg Q4H PRN ORAL temp>100.2 or headache 08/29/19 14:32 09/28/19 14:31 09/11/19 22:18 Acetaminophen/ Hydrocodone Bitart ([place] 5/325) 1 tab Q4H PRN ORAL Moderate Pain (Pain Scale 4-6) 09/23/19 14:12 09/30/19 14:11 09/25/19 05:38 Ascorbic Acid (Vitamin C) 500 mg Q4H PRN ORAL thick ileostomy effluent 09/06/19 16:00 10/06/19 15:59 09/25/19 05:42 Bupropion HCl (Wellbutrin SR) 200 mg TWICE A DAY ORAL 08/29/19 18:00 09/26/19 17:59 09/25/19 08:40 Carisoprodol (Soma) 350 mg Q8H PRN ORAL NECK SPASM 09/21/19 16:15 10/21/19 16:14 09/22/19 10:09 Citalopram Hydrobromide (celeXA) 40 mg DAILY ORAL 08/30/19 09:00 09/27/19 08:59 09/25/19 08:40 Diphenhydramine HCl (Benadryl) 25 mg Q6H PRN IVP Itching/Pruritis 08/29/19 14:33 09/28/19 14:32 Fluticasone Propionate (Flonase) 1 spray TWICE A DAY NASAL 08/29/19 18:00 09/26/19 17:59 09/25/19 08:38 Lorazepam (Ativan) 1 mg Q4H PRN SL Muscle Spasm 09/22/19 10:12 09/29/19 10:11 09/24/19 00:27 Miconazole Nitrate (Monistat) 1 applic DAILY PRN VAGIN Itching 09/23/19 09:00 10/23/19 08:59 09/25/19 07:18 Mupirocin (Bactroban Oint) 1 applic THREE TIMES A DAY TOPIC 09/22/19 13:00 09/27/19 12:59 09/25/19 08:40 Patient Own Medication (Patient's Own Med) 1 ea DAILY ORAL 09/07/19 09:00 10/07/19 08:59 09/25/19 08:38 Trazodone HCl (Desyrel) 200 mg BEDTIME ORAL 08/29/19 21:00 09/26/19 20:59 09/24/19 21:31 Shree Pope MD Sep 25, 2019 09:03
[2019-09-25 12:00] VITALS: BP 105/62
[2019-09-25] MEDS ORDERED: NS Irrig 1000ml ONE ×2 (14:39)
--- NOTE | 2019-09-25 15:11 | General Progress Note ---
Progress Note Progress Note Continues to slowly improve - managing with Kock pouch self-intubations. Abdomen soft Plan: d/c to SNF for additional rehab Full supplies/instructions/limitations provided/discussed F/U office 2 weeks and prn Lalo Meadows MD Sep 25, 2019 15:11
--- NOTE | 2019-09-28 11:58 | Discharge Summary ---
Discharge Summary Hospital Course Date of Admission Aug 27, 2019 at 09:11 Date of Discharge Sep 25, 2019 at 14:40 Admitting Diagnosis Malfunctioning Kock Pouch Reason for Hospitalization: elective surgery HPI Mulu Horner is a 68 year old female who was admitted on Aug 27, 2019 at 09: 11 for malfunctioning Kock Pouch 68-year-old female in overall good health with a malfunctioning Kock pouch continent ileostomy had increasing difficulty inserting her intubation drainage catheter. The patient had a past history of ulcerative colitis that developed at age of 22. 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 She required laparotomy for small bowel obstruction in 2000 and was told she had minimal adhesions. She usually intubated her pouch three times a day and not at all at night. She has not had pouchitis for 20 years. She had increasing difficulty inserting the catheter about 3 inches into the stoma. She did not have any incontinence. The patient underwent Kock pouch endoscopy March 08, 2019, which revealed a stenosis of the access segment and valve with a shortened nipple valve. There was a narrowing of the access segment at approximately 3 cm depth into the stoma extending through the tip of the valve, which was approximately 6 to 7 cm from the stoma orifice. Retroflexed views during the endoscopy revealed a well- formed nipple valve, but measured only approximately 3 cm. Despite this, she was not having any incontinence. She was scheduled to undergo correction of this problem with revision of her Kock pouch. 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 PICC line was inserted by interventional radiology patient started o IV fluids and bowel preparation continuous drainage of Kock pouch was maintained patient subsequently undergone laparotomy with creation of new wall and stoma, with preservation of Kock pouch, enteroenterostomy, revision of stoma in depth and catheter gastrostomy postoperatively patient was hypotensive in 70s with mild tachycardia patient started on IV fluids and blood pressure improved hemoglobin dropped from preoperative 9.8 to 7.2 patient was subsequently transfused with 2 units of packed red blood cells patient was kept in ICU initially patient was n.p.o. except oral medications labs , intake and output were closely monitored Busch catheter was continued patient started on TPN pain management was addressed with BREEDING MANAGER patient was able to be transferred to medical surgical floor patient was mobilized out of bed and ambulated twice a day as tolerated renal parameters and electrolytes were closely monitored magnesium and phosphorus were replaced patient had fever chest x-ray confirmed probable pneumonia income tax auditor followed- patient started on empiric antibiotics supplemental oxygen provided and titrated as needed to keep pulse oximetry above 92%; bronchodilator treatment provided antitussive provided as needed frequent ambulation and incentive spirometry was encouraged while in the bed patient continued to be n.p.o. with TPN Busch catheter was subsequently discontinued BREEDING MANAGER Dilaudid was also discontinued magnesium was additionally replaced intake and output and labs were closely monitored patient started on clear liquid diet as tolerated TPN was continued, ileus was slowly resolving patient started on gastrostomy 3:3 protocol continuous drainage of Kock pouch was maintained patient was slowly advanced to full liquid diet and gastrostomy 5: 1 protocol TPN rate was subsequently decreased continuous drainage of Kock pouch was maintained patient subsequently was [facility]omy was plugged continuously intake and output was closely monitored patient developed abdominal pain and no Kock pouch ileal output CT scan of the abdomen and pelvis revealed small bowel obstruction with gastrostomy very distal and dilated stomach gastrostomy tube was apparently malpositioned and was relocated patient developed leukocytosis patient was on empiric antibiotics patient subsequently undergone pouchogram , which revealed delayed reflux into the afferent bowel with dilated bowel all the way to the pouch.? Stricture of afferent bowel junction with pouch or angulation? pouch catheter was in good position TPN was continued, gastrostomy was maintained to drainage and ileal output was closely monitored patient started on gastrostomy 3: 3 protocol continuous drainage of Kock pouch was maintained patient was on empiric antibiotic. urine culture was negative leukocytosis resolved , no fevers patient was able to tolerate 3:3 protocol. continuous drainage of gastrostomy was resumed N.p.o. and TPN continued subsequently Busch catheter was discontinue partial small bowel obstruction was slowly resolving without operation gastrostomy and Kock pouch catheter were maintained to continuous drainage patient started on clear liquid diet Dilaudid was tapered off TPN was continued subsequently antibiotics were discontinued gastrostomy site was plugged continuously; continuous drainage of Kock pouch was maintained follow-up CT scan of the abdomen and pelvis was negative, mildly dilated bowels, but less than on prior exam; no obstruction patient started on low residue BCIR diet TPN was continued until the patient started to eat better gastrostomy was removed after patient tolerated diet well dietary supplements provided TPN was tapered and discontinued catheter was removed, and patient started on RN supervised self intubation every 3 hours morning to evening and as needed strict intake and output was closely monitored patient required long term facility for additional rehabilitation and ability to ambulate independently social media senior associate was involved in arrangement and securing placement patient did well with supervised self intubation, without difficulties patient developed vaginal yeast infection and received Monistat placement was arranged to the long term facility for additional rehabilitation full supplies/instructions/limitations provided/discussed patient to follow-up in the office in 2 weeks and call as needed. Patient clinically stabilized and was ready for transfer to long term facility for continuation of care for additional rehabilitation FINAL DIAGNOSES 1. 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 2. History of ulcerative colitis. 3. STATUS POST MULTIPLE ABDOMINAL OPERATIONS: 3.1. Proctocolectomy and Kock pouch in 1978. 3.2. Laparotomy for small bowel obstruction in 2000. 4. Laparotomy with creation of new valve and stoma with preservation of Kock pouch, enteroenterostomy, revision of stoma in depth, and catheter gastrostomy 08/28/2019 5. Ileus 6. Postoperative partial small bowel obstruction 7. Mild dehydration 8. Postoperative anemia 9. Malnutrition 10. Iron deficiency anemia 11. Possible pneumonia versus atelectasis 12. Malpositioning of gastrostomy tube, s/p relocation 13. Vaginal yeast infection Discharge Medications Continued Medications: Aspirin* (Aspirin*) 81 Mg Tab.chew 81 MG ORAL DAILY, TAB (This prescription has been renewed) Atorvastatin Calcium* (Atorvastatin Calcium*) 20 Mg Tablet 20 MG ORAL BEDTIME, TAB (This prescription has been renewed) Bupropion Sr* (Wellbutrin Sr*) 100 Mg Tablet.er 200 MG ORAL TWICE A DAY, TAB 0 Refills (This prescription has been renewed) Carisoprodol* (Carisoprodol*) 350 Mg Tablet 350 MG ORAL BEDTIME PRN for NECK SPASM, TAB (This prescription has been renewed) Celecoxib* (Celebrex*) 100 Mg Capsule 100 MG ORAL TWICE A DAY, CAP (This prescription has been renewed) Citalopram Hydrobromide* (Celexa*) 20 Mg Tablet 40 MG ORAL DAILY, TAB Cyanocobalamin (Vitamin B-12) (Liquid B-12) 1,000 Mcg/15 Ml Liquid 1000 MCG SL DAILY, ML (This prescription has been renewed) Hydrocodone Bit/Acetaminophen 5-325* ([place] 5-325*) 1 Each Tablet 1 TAB ORAL Q6H PRN for For Pain, TAB 0 Refills (This prescription has been renewed) Ipratropium [place] (Ipratropium [place]) 15 Ml [place] 1 SPR NS FOUR TIMES A DAY, SPRAY (This prescription has been renewed) Mirabegron (Myrbetriq) 50 Mg Tab.er.24h 50 MG PO DAILY, TAB (This prescription has been renewed) Pantoprazole* (Protonix*) 40 Mg Tablet.dr 40 MG ORAL BEFORE BREAKFAST, TAB Trazodone* (Trazodone*) 150 Mg Tablet 200 MG ORAL BEDTIME, TAB (This prescription has been renewed) Discharge Condition Upon Discharge: stable Discharge Disposition Patient was discharged to SNF/Subacute Facility(03) Discharge Instructions Discharge Instructions Special Instructions I have been assigned to complete a D/C Summary on this account. I was not involved in the patient management Carolyne Case NP Sep 28, 2019 11:58
== END 2019-09-25 14:40 | disposition short-term general hospital (02) | DRG 329 ==
LOC: 3E 08-27 09:11 → ICU 08-28 17:03 → 3E 08-29 14:10
PROC: 02HV33Z Insertion of Infusion Device into Superior Vena Cava, Percutaneous Approach (ICD-10-PCS; principal; 2019-08-27)
PROC: B518ZZA Fluoroscopy of Superior Vena Cava, Guidance (ICD-10-PCS; principal; 2019-08-27)
PROC: 0D9630Z Drainage of Stomach with Drainage Device, Percutaneous Approach (ICD-10-PCS; 2019-08-28)
PROC: 0DSB0ZZ Reposition Ileum, Open Approach (ICD-10-PCS; 2019-08-28)
PROC: 0D1B0Z4 Bypass Ileum to Cutaneous, Open Approach (ICD-10-PCS; 2019-08-28)
DX: K94.13 Enterostomy malfunction (principal); J18.9 Pneumonia, unspecified organism; K56.7 Ileus, unspecified; E87.0 Hyperosmolality and hypernatremia; J98.11 Atelectasis; K56.690 Other partial intestinal obstruction; E46 Unspecified protein-calorie malnutrition; K43.5 Parastomal hernia without obstruction or gangrene; I95.81 Postprocedural hypotension; N18.9 Chronic kidney disease, unspecified; F32.9 Major depressive disorder, single episode, unspecified; I25.10 Atherosclerotic heart disease of native coronary artery without angina pectoris; Z68.25 Body mass index [BMI] 25.0-25.9, adult; R00.0 Tachycardia, unspecified; B37.3 Candidiasis of vulva and vagina; D50.9 Iron deficiency anemia, unspecified; E86.0 Dehydration
CPT/HCPCS: 36415; 36569; 71045; 74018; 74177; 74270; 75710; 76937; 80048; 80053; 81001; 81003; 82607; 82728; 82746; 82962; 83540; 83550; 83735; 84100; 85007; 85025; 85610; 85651; 85730; 86140; 86850; 86900; 86901; 86920; 87086; 93005; 94003; 94150; 94640; 94664; J2250; J2405; J2710; J7030; J7620

== ENCOUNTER → 2019-11-28 | Outpatient (CLI) | payer MEDICARE ==
[~2019-11-28] MED LIST changes: +ATROVENT HFA12.9 GM IH; +BENADRYL25 MG ORAL; +CARISOPRODOL350 MG ORAL; +IPRATROPIUM BRO15 ML NS; +LIQUID B-11000 MCG/1 SL; +NORCO 5-325 TA1 EACH ORAL; +PAMELOR10 MG ORAL; +TRAZODONE HCL150 MG ORAL; +WELLBUTRIN SR100 MG ORAL
--- NOTE | 2019-11-28 14:18 | Diagnostic Imaging Report ---
Indication: Abdominal pain, history of total colectomy and continent ileostomy Technique: Spiral acquisitions obtained through the abdomen and pelvis. No oral contrast utilized, per emergency room physician request No IV contrast utilized, per referring physician request.. Multiplanar reconstructions were generated. Total dose length product 721 mGycm. CTDIvol(s) 13 mGy. Dose reduction achieved using automated exposure control Comparison: 09/18/2019 Findings: Again demonstrated is a right lower quadrant continent ileostomy, currently not catheterize. Ingested contrast fills the ileostomy pouch as well as entirety of the small bowel. Small bowel loops are mildly dilated, particularly just proximal to the ileostomy, but no obstructive pathology is evident, as evidenced by the filling of the pouch. Previously demonstrated gastrostomy has been removed. No unusual fluid collections. The incision appears unremarkable. No free intraperitoneal gas. No bowel wall pneumatosis. The distal esophagus and stomach are unremarkable. Again demonstrated are numerous prominent mesenteric root and retroperitoneal lymph nodes, as well as some prominent iliac chain nodes bilaterally equivocally slightly more extensive than on the previous exam. Slight haziness to the fat of the upper mesenteric root is unchanged from the previous study. There is slight haziness to the right-sided retroperitoneal fat, unchanged. The liver, gallbladder, bile ducts, pancreas, spleen, adrenals, kidneys are all unremarkable. Uterus and adnexal structures are unremarkable. The bladder is unremarkable. Previously demonstrated bladder gas is no longer evident. Impression: Postsurgical changes, as described, status post total colectomy and continent ileostomy. No unusual features. Small bowel loops are prominent in caliber, but this is presumably functional in nature and there is no evidence of bowel obstruction Retroperitoneal, pelvic and mesenteric root lymphadenopathy, also previously described, but nodes appearing more abundant and prominent than on the previous study. This is nonspecific, most likely reactive/inflammatory in nature, lymphoproliferative disorder less likely.. Haziness of the mesenteric root and in right lower quadrant retroperitoneal fat most likely represents chronic postinflammatory change, but active mesenteric inflammation also possible Findings reviewed in person with Dr. Meadows at the time of interpretation The CT scanner at [facility] is accredited by the [employer] and the scans are performed using protocols designed to limit radiation exposure to as low as reasonably achievable to attain images of sufficient resolution adequate for diagnostic evaluation.
== END | disposition home or self-care (01) ==
LOC: CAT 11:14 → EDSTATUS 13:00
DX: R10.9 Unspecified abdominal pain (principal); Z90.49 Acquired absence of other specified parts of digestive tract
CPT/HCPCS: 74176

== ENCOUNTER 2020-04-26 14:41 | Inpatient (IN) | payer MEDICARE ==
[~2020-04-26] VITALS: Ht 160 cm; Wt 62.6 kg
[2020-04-26 15:00] VITALS: BP 132/70
[2020-04-26] MEDS ORDERED: Morphine Sulfate 4mg/ml Inj (IV USE ONLY) IVP ONE (15:30)
--- NOTE | 2020-04-26 15:36 | Emergency Room Report ---
History of Present Illness General Chief Complaint: Abdominal Pain Source: Patient Present Illness HPI Patient is a 69-year-old female who presented after increased lower abdominal pain. Patient had prior history of BCR and had been in a unable to access her stoma. Reports having 8 out of 10 pain to the lower abdomen. Reports having some slight leakage of stool. Denies any fever. Had not been having any vomiting but has been having some nausea. 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 Patient History Past Medical History: see triage record Last Menstrual Period: na Reviewed Nursing Documentation: PMH: Agreed; PSxH: Agreed Nursing Documentation-PMH Past Medical History: No History, Except For Hx Cardiac Problems: No Hx Cancer: No Hx Gastrointestinal Problems: Yes - BCIR, ulcerative colitis Hx Neurological Problems: No Review of Systems All Other Systems: negative except mentioned in HPI Physical Exam Vital Signs Date Time Temp Pulse Resp B/P (MAP) Pulse Ox O2 Delivery O2 Flow Rate FiO2 04/26/20 14:52 98.2 108 18 132/70 (90) 99 Room Air Sp02 EP Interpretation: reviewed, normal General Appearance: normal inspection, well appearing, no apparent distress, alert, GCS 15 Head: atraumatic ENT: normal ENT inspection, hearing grossly normal, normal voice Neck: normal inspection, full range of motion, supple, no bony tend Respiratory: normal inspection, lungs clear, normal breath sounds, no respiratory distress, no retraction, no wheezing Cardiovascular #1: regular rate, rhythm, no edema Gastrointestinal: normal inspection, normal bowel sounds, non tender, soft, no guarding, no hernia Genitourinary: no CVA tenderness Musculoskeletal: normal inspection, back normal, normal range of motion Neurologic: alert, responsive, speech normal, normal inspection Psychiatric: normal inspection, judgement/insight normal, mood/affect normal Medical Decision Making Diagnostic Impression: Primary Impression: Malfuctioning of Kock Pouch ER Course Patient presented for abdominal pain. Differential diagnosis include was not limited to obstruction, ostomy malfunction, among others. Patient had some prior procedure procedure to the lower abdomen. Since Dr. Meadows was contacted and he advised with management. Laboratory testing was ordered and patient was given IV pain medications.Patient had been noted improving pain after pain medications and nurse was able to place a small Busch catheter through the ostomy however patient had continued pain to that area. Dr. Meadows was contacted and agreed to admit the patient. Labs Test 04/26/20 15:40 04/26/20 16:34 White Blood Count 8.6 K/UL (4.8-10.8) Red Blood Count 4.81 M/UL (4.20-5.40) Hemoglobin 15.4 G/DL (12.0-16.0) Hematocrit 46.5 % (37.0-47.0) Mean Corpuscular Volume 97 FL (80-99) Mean Corpuscular Hemoglobin 32.1 PG (27.0-31.0) Mean Corpuscular Hemoglobin Concent 33.2 G/DL (32.0-36.0) Red Cell Distribution Width 12.2 % (11.6-14.8) Platelet Count 178 K/UL (150-450) Mean Platelet Volume 7.0 FL (6.5-10.1) Neutrophils (%) (Auto) 90.5 % (45.0-75.0) Lymphocytes (%) (Auto) 5.5 % (20.0-45.0) Monocytes (%) (Auto) 3.6 % (1.0-10.0) Eosinophils (%) (Auto) 0.0 % (0.0-3.0) Basophils (%) (Auto) 0.4 % (0.0-2.0) Sodium Level 142 MMOL/L (136-145) Potassium Level 3.5 MMOL/L (3.5-5.1) Chloride Level 104 MMOL/L (98-107) Carbon Dioxide Level 30 MMOL/L (21-32) Anion Gap 8 mmol/L (5-15) Blood Urea Nitrogen 21 mg/dL (7-18) Creatinine 1.3 MG/DL (0.55-1.30) Estimat Glomerular Filtration Rate 40.6 mL/min (>60) Glucose Level 136 MG/DL (74-106) Calcium Level 9.7 MG/DL (8.5-10.1) Total Bilirubin 0.9 MG/DL (0.2-1.0) Aspartate Amino Transf (AST/SGOT) 29 U/L (15-37) Alanine Aminotransferase (ALT/SGPT) 15 U/L (12-78) Alkaline Phosphatase 63 U/L (46-116) Total Protein 7.5 G/DL (6.4-8.2) Albumin 4.1 G/DL (3.4-5.0) Globulin 3.4 g/dL Albumin/Globulin Ratio 1.2 (1.0-2.7) Last Vital Signs Date Time Temp Pulse Resp B/P (MAP) Pulse Ox O2 Delivery O2 Flow Rate FiO2 04/26/20 14:52 98.2 108 18 132/70 (90) 99 Room Air Status: improved Disposition: ADMITTED INPATIENT Condition: Stable Referrals: NON PHYSICIAN (PCP) Julio Becker MD Apr 26, 2020 15:36
[2020-04-26 16:05] LABS: ANION GAP 8 mmol/L (5-15); BLOOD UREA NITROGEN 21 mg/dL (7-18); CALCIUM 9.7 MG/DL (8.5-10.1); CARBON DIOXIDE 30 MMOL/L (21-32); CHLORIDE 104 MMOL/L (98-107); CREATININE 1.3 MG/DL (0.55-1.30); POTASSIUM 3.5 MMOL/L (3.5-5.1); SODIUM 142 MMOL/L (136-145)
[2020-04-26 16:07] LABS: HEMATOCRIT 46.5 % (37.0-47.0); HEMOGLOBIN 15.4 G/DL (12.0-16.0); MEAN CORPUSCULAR VOLUME 97 FL (80-99); PLATELET COUNT 178 K/UL (150-450); RED BLOOD COUNT 4.81 M/UL (4.20-5.40); RED CELL DISTRIBUTION WIDTH 12.2 % (11.6-14.8); WHITE BLOOD COUNT 8.6 K/UL (4.8-10.8)
[2020-04-26 16:08] LABS: BASOPHILS % (AUTO) 0.4 % (0.0-2.0); LYMPHOCYTES % (AUTO) 5.5 % (20.0-45.0); MONOCYTES % (AUTO) 3.6 % (1.0-10.0); NEUTROPHILS % (AUTO) 90.5 % (45.0-75.0)
[2020-04-26 16:09] LABS: ALANINE AMINOTRANSFERASE 15 U/L (12-78); ALBUMIN 4.1 G/DL (3.4-5.0); ALBUMIN/GLOBULIN RATIO 1.2 (1.0-2.7); ALKALINE PHOSPHATASE 63 U/L (46-116); ASPARTATE AMINO TRANSFERASE 29 U/L (15-37); BILIRUBIN,TOTAL 0.9 MG/DL (0.2-1.0)
[2020-04-26] MEDS: D5 1/2NS w/KCl 20mEq 1,000 ML IV SCH ×2 (17:52→19:30)
[2020-04-26 17:59] LABS: APPEARANCE,URINE SLIGHTLY CLOUDY; BILIRUBIN, URINE NEGATIVE (NEGATIVE); COLOR,URINE BROWN; GLUCOSE, URINE (UA) NEGATIVE (NEGATIVE); KETONES,URINE 1+ (NEGATIVE); LEUKOCYTE ESTERASE ,URINE 1+ (NEGATIVE); NITRITE,URINE NEGATIVE (NEGATIVE); PH,URINE 5 (4.5-8.0); PROTEIN,URINE 2+ (NEGATIVE); UROBILINOGEN,URINE 1 MG/DL (0.0-1.0)
[2020-04-26 20:00] VITALS: BP 113/66
[2020-04-26] MEDS ORDERED: BuPROPion SR 100mg tab ORAL SCH (20:00)
[2020-04-26] MEDS: HYDROcodone/Acetamin 5/325 tab ORAL PRN (20:25)
[2020-04-26] MEDS: BuPROPion SR 100mg tab ORAL SCH (20:28)
[2020-04-26] MEDS ORDERED: TraZODone 100mg tab ORAL SCH ×2 (20:45→21:00)
[2020-04-26] MEDS: celeBREX 200mg Cap **SURGERY PATIENTS ONLY ORAL SCH (21:24)
[2020-04-26] MEDS: Citalopram Hydrobromide 10mg Tab ORAL SCH (21:24)
[2020-04-26] MEDS: MYRBETRIQ 50 MG ORAL SCH (21:27)
[2020-04-27] VITALS (7 sets, daily range): BP systolic 87–109; BP diastolic 51–67
[2020-04-27] MEDS: D5 1/2NS w/KCl 20mEq 1,000 ML IV SCH ×4 (02:00→21:29)
[2020-04-27] MEDS: HYDROcodone/Acetamin 5/325 tab ORAL PRN ×3 (06:03→15:09)
[2020-04-27 07:04] LABS: BASOPHILS % (AUTO) 0.6 % (0.0-2.0); EOSINOPHILS % (AUTO) 0.1 % (0.0-3.0); LYMPHOCYTES % (AUTO) 10.2 % (20.0-45.0); MEAN CORPUSCULAR VOLUME 99 FL (80-99); MONOCYTES % (AUTO) 12.4 % (1.0-10.0); NEUTROPHILS % (AUTO) 76.7 % (45.0-75.0); PLATELET COUNT 147 K/UL (150-450); RED BLOOD COUNT 4.15 M/UL (4.20-5.40); RED CELL DISTRIBUTION WIDTH 11.8 % (11.6-14.8); WHITE BLOOD COUNT 4.1 K/UL (4.8-10.8)
[2020-04-27 07:48] LABS: ALANINE AMINOTRANSFERASE 13 U/L (12-78); ALBUMIN 3.2 G/DL (3.4-5.0); ALKALINE PHOSPHATASE 51 U/L (46-116); ANION GAP 7 mmol/L (5-15); ASPARTATE AMINO TRANSFERASE 17 U/L (15-37); BLOOD UREA NITROGEN 19 mg/dL (7-18); CALCIUM 8.2 MG/DL (8.5-10.1); CARBON DIOXIDE 29 MMOL/L (21-32); CHLORIDE 106 MMOL/L (98-107); CREATININE 1.2 MG/DL (0.55-1.30); FERRITIN 85 NG/ML (8-388); POTASSIUM 3.9 MMOL/L (3.5-5.1); SODIUM 142 MMOL/L (136-145)
[2020-04-27 07:58] LABS: % IRON SATURATION 11 % (15-50); IRON 24 ug/dL (50-175); TOTAL IRON BINDING CAPACITY 221 ug/dL (250-450)
[2020-04-27] MEDS: celeBREX 200mg Cap **SURGERY PATIENTS ONLY ORAL SCH ×2 (08:16→18:00)
[2020-04-27] MEDS: BuPROPion SR 100mg tab ORAL SCH ×2 (08:16→17:47)
[2020-04-27] MEDS: Citalopram Hydrobromide 10mg Tab ORAL SCH (08:16)
[2020-04-27] MEDS ORDERED: Citalopram Hydrobromide 10mg Tab ORAL SCH (09:00)
[2020-04-27] MEDS ORDERED: Omnipaque-300 100ml vial INJ PRN (10:00)
[2020-04-27] MEDS ORDERED: Lidocaine 1% Plain 30 ml INJ SCH (10:00)
[2020-04-27] MEDS ORDERED: Heparin1,000 units/500ml Premix(Conc:2 units/ml) IV ONE (10:00)
--- NOTE | 2020-04-27 10:04 | General Progress Note ---
Progress Note Progress Note Admitted from Emergency Room yesterday evening - was unable to intubate her Kock Pouch continent ileostomy since 299. In ER a 24 Fr Busch was inserted with 300+cc output. Has also had treatment for pouchitis with Flagyl and with cipro Abdomen soft, mildly distended, slight tenderness. Catheter in Kock pouch stoma irrigated with thick stool output WBC 4100 Hgb 13 Platelets 147,000 BUN 19 Cr 1.2 Albumin 3.2 Iron 24 ferritin 85 B12 high Folic acid low 7.3 Imp: Malfunctioning Kock pouch with inability to intubate (prior pouch endoscopy revealed elongated access segment with angulation) Plan: NPO, PICC line insertion , CT abd+pelvis with contrast Pouch endoscopy tomorrow f/u labs - may need TPN if laparotomy required to relieve her inability to intubate to evacuate stool Kock pouch catheter to suction Lalo Meadows MD Apr 27, 2020 10:04
--- NOTE | 2020-04-27 12:00 | Pre-op HX & Phy Repo 2 SIG ---
DATE OF ADMISSION: 04/26/2020 EMERGENCY ADMISSION HISTORY AND PHYSICAL HISTORY OF PRESENT ILLNESS: The patient admitted from emergency room in the early evening, April 26, 2020. The patient presents with inability to catheterize her Kock pouch continent ileostomy to evacuate stool and gas with resulting abdominal pain, cramping with bloating, nausea, and emesis x1. The patient has a past history of ulcerative colitis and underwent proctocolectomy with Kock pouch in 1978. She required laparotomy for small bowel obstruction in 2000 and on 08/28/2019, underwent laparotomy with creation of a new valve and stoma with preservation of her Kock pouch and revision of the stoma in-depth. Following that surgery, the patient had issues with abdominal pain that persisted for several months. CAT scan was done November 28, 2019 revealing nothing to explain her pain, but there were enlarged mesenteric lymph nodes. 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 She also required a course of Cipro subsequently. She has had some difficulty with intubation and underwent pouch endoscopy, November 14, 2019 revealing mild redundancy with angulation of the access segment. On the day of admission, the patient tried to empty her pouch at 3 in the morning and could not get a catheter in, it persisted and she called me. I advised her to come to the emergency room. The ostomy nurse was able to insert a 24-Maldivian Busch catheter into her pouch evacuating several 100 mL of contents. He could not insert a 28-Maldivian Busch. The catheter was left in place to gravity drainage. MEDICATIONS: Wellbutrin, Soma, Celebrex, Celexa, Lipitor, Atrovent nasal spray, Myrbetriq for bladder spasms, nortriptyline, Frakes for back pain, Protonix, and Dr. Ramírez's Probiotics. ALLERGIES TO MEDICATIONS: None. OPERATIONS: In addition to the list at the end of this dictation, she has undergone spine surgery in 2000 and 2002, bilateral carpal tunnel release, bilateral cataract surgery, multiple treatments for kidney stones including extracorporeal shockwave lithotripsy and cystoscopic extractions for calcium stones. She underwent resection of a parathyroid adenoma in March 2019. PHYSICAL EXAMINATION: GENERAL: The patient is well developed and well nourished, 5 feet 4 inches, approximately 135 pounds. HEENT: Within normal limits. LUNGS: Clear. HEART: Regular rhythm. BREASTS: Without masses. ABDOMEN: Mildly distended, but soft with mild tenderness, but no guarding or rebound. There is a long midline scar. The stoma of the Kock pouch is low in the right lower quadrant. There is no evidence of abdominal wall hernia. PELVIC: Per primary care recently. RECTAL: Status post proctectomy. EXTREMITIES: Without edema. NEUROLOGIC: Physiologic. IMPRESSION: 1. Malfunctioning Kock pouch with inability to intubate with resulting functional small bowel obstruction. 2. History of ulcerative colitis. 3. Status post spine surgery, 2000 and 2002. 4. Status post cortisone injection to right hip bursitis recently. 5. Resection of parathyroid adenoma, March 2019. 6. STATUS POST MULTIPLE ABDOMINAL OPERATIONS: 6.1. Proctocolectomy and Kock pouch in 1978. 6.2. Laparotomy for small bowel obstruction in 2000. 6.3. Laparotomy with creation of new valve and stoma with preservation of Kock pouch, August 28, 2019. PLAN: The patient will be admitted with intravenous fluids, will be kept NPO, and will maintain continuous drainage to her Kock pouch catheter which will be placed to suction. Full laboratory evaluation will be assessed when she is completely hydrated. She will need a CT scan, repeat pouch endoscopy, and likely surgical revision of her Kock pouch. Lalo Meadows M.D. DR: FREDERICK JOB#: [id number] CC:
--- NOTE | 2020-04-27 14:40 | Diagnostic Imaging Report ---
Clinical Indication: Abdominal pain, inability to intubate continent ileostomy reservoir Technique: Patient ingested oral contrast IV administration nonionic contrast. Venous phase spiral acquisition obtained through the abdomen and pelvis. Multiplanar reconstructions were generated. Total dose length product 242 mGycm. CTDIvol(s) 4 mGy. Dose reduction achieved using automated exposure control Comparison: 11/28/2019 noncontrast exam Findings: Again demonstrated is a right lower quadrant continent ileostomy. This contains a Busch catheter, tip of which is deep within the main reservoir. The reservoir is distended with material. Contents may be viscous as there are numerous nondependent gas bubbles. The stomach is distended and filled with contrast. There also appears to be reflux of contrast into the distal esophagus. The distal duodenum is mildly distended. The proximal small bowel, beginning immediately just past the ligament of Treitz, is markedly distended and fluid-filled. At the level of the mid jejunum, in the left lower quadrant, small bowel loops become less dilated. However, there is a another more distal segment of small bowel which is also dilated, in the right upper quadrant, and distal small bowel loops are nondilated. There is somewhat prominent small bowel mucosal enhancement. There is an anastomosis in the midline. Small bowel loops leading into the reservoir are nondilated. Mild inflammatory changes are seen in the upper pelvic mesenteric fat. There is a midline incisional scar. No definite loculated fluid collections are evident. However, a small amount of free intraperitoneal fluid is seen in the left upper quadrant adjacent to the dilated small bowel loops as well as adjacent to the gallbladder. The liver is unremarkable. The gallbladder is unremarkable. There is ectasia of the extrahepatic bile ducts, common bile duct measuring up to 9 mm in diameter. No downstream obstructive lesion demonstrated. The pancreas, spleen, adrenals, kidneys are unremarkable. Again demonstrated are prominent borderline enlarged retroperitoneal lymph nodes. No pelvic mass or adenopathy. The included lung bases demonstrate some posterior atelectasis on the right. The bones are unremarkable except for mild degenerative spondylosis changes. Impression: Dilated proximal small bowel loops, with another short segment of dilated mid small bowel, nondilated distal small bowel loops. Findings are concerning for small bowel obstruction. Given somewhat prominent mucosal enhancement, findings could also be due to enteritis. Trace ascites, possibly related to the above Postsurgical changes, as described. Note that the Busch catheter is deep within the reservoir but the reservoir is somewhat distended with material. Ectatic extrahepatic bile ducts. Suspect age-related is this is unchanged from the prior study. Correlate with liver function tests Nonspecific prominent retroperitoneal lymph nodes Findings discussed by phone with Dr. Meadows at the time of interpretation The CT scanner at [facility] is accredited by the [employer] and the scans are performed using protocols designed to limit radiation exposure to as low as reasonably achievable to attain images of sufficient resolution adequate for diagnostic evaluation.
--- NOTE | 2020-04-27 15:02 | Pre-Procedure Note/Attestation ---
Pre-Procedure Note/Attestation Complete Prior to Procedure Planned Procedure: not applicable Procedure Narrative: PICC Indications for Procedure Pre-Operative Diagnosis: needs chcf IV access Attestation I attest that I discussed the nature of the procedure; its benefits; risks and complications; and alternatives (and the risks and benefits of such alternatives ), prior to the procedure, with the patient (or the patient's legal sales representative church [employer]). I attest that, if there was a reasonable possibility of needing a blood transfusion, the patient (or the patient's legal sales representative church [employer]) was given the [facility] standardized written summary, pursuant to the [place] Blood Safety Act ([place] Health and Safety Code # 1645, as amended). I attest that I re-evaluated the patient just prior to the surgery and that there has been no change in the patient's H&P, except as documented below: Yonatan Weaver MD Apr 27, 2020 15:02
--- NOTE | 2020-04-27 15:03 | Brief Operative Note ---
Immediate Post Operative Note Operative Note Pre-op Diagnosis: needs press tender long goods IV access Procedure: PICC Post-op Diagnosis: same as pre-op Surgeon: Holli WEAVER Anesthesia: local Specimen: none Complications: none Condition: unstable Fluids: none Implant(s) used?: No Yonatan Weaver MD Apr 27, 2020 15:03
--- NOTE | 2020-04-27 17:09 | Diagnostic Imaging Report ---
Indications: Needs long-term IV access Technique: Ultrasound confirms patent compressible right basilic vein. Total sterile technique, including sterile probe cover and sterile gel, hat, mask, sterile gown, large sterile drape, and preparation with 2% chlorhexidine utilized. Local anesthesia with 1% lidocaine. Under real-time ultrasound guidance, puncture right basilic vein using 21-gauge needle, documented and archived, passage 0.018 guidewire under direct fluoroscopy, which was used to determine appropriate catheter length, exchange for 4 Czech peel-away sheath. 4 Czech Bard dual-lumen power PICC cut to 40 cm. It was inserted through the peel-away sheath. Peel-away sheath and guidewire removed. Catheter fixed to the skin. Both catheter ports aspirated and flushed. Patient tolerated procedure well, without immediate complication. Digital radiograph documents satisfactory catheter tip position, at the cavoatrial junction. Total fluoroscopy time 13.5 seconds. Total dose area product 0.10040 mGym2 Total number of images: 1 Impression: Successful placement of right arm PICC under sonographic and fluoroscopic guidance, as described above.
[2020-04-27] MEDS: HYDROmorphone 1mg/ml Carpuject SUBQ PRN (18:00)
--- NOTE | 2020-04-27 18:01 | Anethesia Preoperative Eval ---
Anesthesia Pre-op PMH/ROS General Date of Evaluation: Apr 27, 2020 Anesthesiologist: Owen ASA Score: ASA 3 Mallampati Score Class I : Soft palate, uvula, fauces, pillars visible Class II: Soft palate, uvula, fauces visible Class III: Soft palate, base of uvula visible Class IV: Only hard plate visible Mallampati Classification: Class II Surgeon: Dori Diagnosis: Abd Pain Surgical Procedure: Revision Of Calderon Continent Ileostomy Anesthesia History: none Family History: no anesthesia problems Allergies: Coded Allergies: ADHESIVE TAPE (Verified Adverse Reaction, Intermediate, Rash, 08/27/19) CLEAR TAPE Medications: see eMAR Patient NPO?: Yes Past Medical History Cardiovascular: Reports: other - HL Pulmonary: Reports: other - Broncjhitis Gastrointestinal/Genitourinary: Reports: GERD, other - Ulcerative Colitis, Renal Stones Neurologic/Psychiatric: Reports: depression/anxiety HEENT: Reports: cataract (L), cataract (R) Musculoskeletal/Integumentary: Reports: other - Back Pain PSxH Narrative: 1. Malfunctioning Kock pouch with inability to intubate with resulting functional small bowel obstruction. 2. History of ulcerative colitis. 3. Status post spine surgery, 2000 and 2002. 4. Status post cortisone injection to right hip bursitis recently. 5. Resection of parathyroid adenoma, March 2019. 6. STATUS POST MULTIPLE ABDOMINAL OPERATIONS: 6.1. Proctocolectomy and Kock pouch in 1978. 6.2. Laparotomy for small bowel obstruction in 2000. 6.3. Laparotomy with creation of new valve and stoma with preservation of Kock pouch, August 28, 2019. Anesthesia Pre-op Phys. Exam Physician Exam Last Vital Signs Date Time Temp Pulse Resp B/P (MAP) Pulse Ox O2 Delivery O2 Flow Rate FiO2 04/27/20 15:38 99.1 89 20 102/56 (71) 97 04/27/20 08:40 Room Air Constitutional: NAD Neurologic: CN 2-12 intact Cardiovascular: RRR Respiratory: CTA Gastrointestinal: S/NT/ND Airway Exam Mallampati Score: Class II MO: full ROM: limited Teeth: missing, intact Anesthesia Pre-op A/P Labs Hematology Test 04/27/20 05:45 White Blood Count 4.1 K/UL (4.8-10.8) #L Red Blood Count 4.15 M/UL (4.20-5.40) L Hemoglobin 13.0 G/DL (12.0-16.0) Hematocrit 41.0 % (37.0-47.0) Mean Corpuscular Volume 99 FL (80-99) Mean Corpuscular Hemoglobin 31.4 PG (27.0-31.0) H Mean Corpuscular Hemoglobin Concent 31.8 G/DL (32.0-36.0) L Red Cell Distribution Width 11.8 % (11.6-14.8) Platelet Count 147 K/UL (150-450) L Mean Platelet Volume 7.3 FL (6.5-10.1) Neutrophils (%) (Auto) 76.7 % (45.0-75.0) H Lymphocytes (%) (Auto) 10.2 % (20.0-45.0) L Monocytes (%) (Auto) 12.4 % (1.0-10.0) H Eosinophils (%) (Auto) 0.1 % (0.0-3.0) Basophils (%) (Auto) 0.6 % (0.0-2.0) Chemistry Test 04/27/20 05:45 Sodium Level 142 MMOL/L (136-145) Potassium Level 3.9 MMOL/L (3.5-5.1) Chloride Level 106 MMOL/L (98-107) Carbon Dioxide Level 29 MMOL/L (21-32) Anion Gap 7 mmol/L (5-15) Blood Urea Nitrogen 19 mg/dL (7-18) H Creatinine 1.2 MG/DL (0.55-1.30) Estimat Glomerular Filtration Rate 44.5 mL/min (>60) Glucose Level 112 MG/DL (74-106) H Calcium Level 8.2 MG/DL (8.5-10.1) L Iron Level 24 ug/dL (50-175) L Total Iron Binding Capacity 221 ug/dL (250-450) L Percent Iron Saturation 11 % (15-50) L Unsaturated Iron Binding 197 ug/dL (112-346) Ferritin 85 NG/ML (8-388) Total Bilirubin 1.0 MG/DL (0.2-1.0) Aspartate Amino Transf (AST/SGOT) 17 U/L (15-37) Alanine Aminotransferase (ALT/SGPT) 13 U/L (12-78) Alkaline Phosphatase 51 U/L (46-116) Total Protein 6.3 G/DL (6.4-8.2) L Albumin 3.2 G/DL (3.4-5.0) L Globulin 3.1 g/dL Albumin/Globulin Ratio 1.0 (1.0-2.7) Vitamin B12 Level 1039 PG/ML (193-986) H Folate 7.3 NG/ML (8.6-58.9) L Risk Assessment & Plan Assessment: ASA 3 Plan: GA Status Change Before Surgery: No Pre-Antibiotics Drug: Jerod Ferguson MD Apr 27, 2020 18:01
[2020-04-27] MEDS: MYRBETRIQ 50 MG ORAL SCH (21:26)
[2020-04-27] MEDS: TraZODone 100mg tab ORAL SCH (21:26)
[2020-04-27] MEDS: Iron Sucrose 100 MG in NS 55 ML IV SCH (21:28)
[2020-04-27] MEDS: Dyna-Hex 2% Top Sol 2oz TOPIC SCH (21:29)
[2020-04-28] VITALS: BP 97/58
[2020-04-28] MEDS: HYDROmorphone 1mg/ml Carpuject SUBQ PRN ×4 (02:53→20:29)
[2020-04-28] MEDS: D5 1/2NS w/KCl 20mEq 1,000 ML IV SCH ×5 (03:33→20:34)
[2020-04-28 04:00] VITALS: BP 115/53
[2020-04-28] MEDS ORDERED: Ampicillin/Sulbactam Sod 3 GM in NS 110 ML IVPB SCH (06:00)
[2020-04-28 06:22] LABS: HEMATOCRIT 38.3 % (37.0-47.0); HEMOGLOBIN 12.3 G/DL (12.0-16.0); MEAN CORPUSCULAR VOLUME 98 FL (80-99); PLATELET COUNT 113 K/UL (150-450); RED BLOOD COUNT 3.89 M/UL (4.20-5.40); RED CELL DISTRIBUTION WIDTH 11.7 % (11.6-14.8); WHITE BLOOD COUNT 2.3 K/UL (4.8-10.8)
[2020-04-28 06:34] LABS: ALANINE AMINOTRANSFERASE 10 U/L (12-78); ALBUMIN/GLOBULIN RATIO 1.1 (1.0-2.7); ALKALINE PHOSPHATASE 49 U/L (46-116); ASPARTATE AMINO TRANSFERASE 12 U/L (15-37); BILIRUBIN,TOTAL 0.8 MG/DL (0.2-1.0); BLOOD UREA NITROGEN 11 mg/dL (7-18); CALCIUM 7.9 MG/DL (8.5-10.1); CARBON DIOXIDE 29 MMOL/L (21-32); CREATININE 1.1 MG/DL (0.55-1.30)
[2020-04-28 07:09] LABS: CHLORIDE 107 MMOL/L (98-107); POTASSIUM 3.9 MMOL/L (3.5-5.1); SODIUM 142 MMOL/L (136-145)
[2020-04-28 08:00] VITALS: BP 107/53
[2020-04-28] MEDS ORDERED: Dextrose 10% 1,000 ML IV PRN (08:30)
--- NOTE | 2020-04-28 08:40 | General Progress Note ---
Progress Note Progress Note AVSS Still with some cramping pain with movement, none in bed Abdomen soft, minimal distention, no guarding or rebound Urine 1500 Kock pouch ileo 490 WBC 2300 Platelets 113,000 BUN 11 Cr 1.1 albumin 3 Imp: Malfunctioning Kock pouch with inability to intubate R/O partial SBO based on CT scan done yesterday Malnutrition Leukopenia and thrombocytopenia Plan: Postpone surgery until tomorrow f/u labs TPN, npo, continuous drainage of Kock pouch Lalo Meadows MD Apr 28, 2020 08:40
[2020-04-28] MEDS: BuPROPion SR 100mg tab ORAL SCH ×2 (09:08→18:26)
[2020-04-28] MEDS: Citalopram Hydrobromide 10mg Tab ORAL SCH (09:08)
[2020-04-28] MEDS: celeBREX 200mg Cap **SURGERY PATIENTS ONLY ORAL SCH ×2 (09:09→18:26)
[2020-04-28 12:00] VITALS: BP 100/54
[2020-04-28 15:54] VITALS: BP 93/56
[2020-04-28 20:00] VITALS: BP 117/55
[2020-04-28] MEDS: TraZODone 100mg tab ORAL SCH (20:34)
[2020-04-28] MEDS: MYRBETRIQ 50 MG ORAL SCH (20:35)
[2020-04-28] MEDS: Dyna-Hex 2% Top Sol 2oz TOPIC SCH (20:35)
[2020-04-28] MEDS: Iron Sucrose 100 MG in NS 55 ML IV SCH (20:35)
[2020-04-28] MEDS: Fat Emulsion Iv 20% 216 ML in Tpn 1,680 ML IV SCH (20:42)
[2020-04-28] MEDS ORDERED: Fat Emulsion Iv 20% 250 ML IV SCH (21:00)
[2020-04-28] MEDS: Ampicillin/Sulbactam Sod 3 GM in NS 110 ML IV SCH (23:06)
[2020-04-28] MEDS: NovoLOG Insulin Flexpen SUBQ SCH (23:11)
[2020-04-29] VITALS (20 sets, daily range): BP systolic 97–117; BP diastolic 40–70
[2020-04-29] MEDS: HYDROmorphone 1mg/ml Carpuject SUBQ PRN ×2 (03:00→08:55)
[2020-04-29] MEDS: Ampicillin/Sulbactam Sod 3 GM in NS 110 ML IV SCH ×3 (05:11→18:00)
[2020-04-29] MEDS: NovoLOG Insulin Flexpen SUBQ SCH ×3 (05:18→18:00)
[2020-04-29 05:33] LABS: BASOPHILS % (AUTO) 0.4 % (0.0-2.0); HEMATOCRIT 39.1 % (37.0-47.0); HEMOGLOBIN 12.6 G/DL (12.0-16.0); LYMPHOCYTES % (AUTO) 8.7 % (20.0-45.0); MEAN CORPUSCULAR VOLUME 98 FL (80-99); MONOCYTES % (AUTO) 10.2 % (1.0-10.0); NEUTROPHILS % (AUTO) 80.6 % (45.0-75.0); PLATELET COUNT 125 K/UL (150-450); RED BLOOD COUNT 3.99 M/UL (4.20-5.40); RED CELL DISTRIBUTION WIDTH 11.7 % (11.6-14.8); WHITE BLOOD COUNT 3.9 K/UL (4.8-10.8)
[2020-04-29 05:51] LABS: ALANINE AMINOTRANSFERASE 9 U/L (12-78); ALBUMIN 2.8 G/DL (3.4-5.0); ALBUMIN/GLOBULIN RATIO 0.9 (1.0-2.7); ALKALINE PHOSPHATASE 47 U/L (46-116); ANION GAP 8 mmol/L (5-15); ASPARTATE AMINO TRANSFERASE 10 U/L (15-37); BILIRUBIN,TOTAL 0.6 MG/DL (0.2-1.0); BLOOD UREA NITROGEN 11 mg/dL (7-18); CALCIUM 8.4 MG/DL (8.5-10.1); CARBON DIOXIDE 28 MMOL/L (21-32); CHLORIDE 107 MMOL/L (98-107); CREATININE 1.1 MG/DL (0.55-1.30); PHOSPHORUS 2.3 MG/DL (2.5-4.9); POTASSIUM 4.1 MMOL/L (3.5-5.1); SODIUM 143 MMOL/L (136-145)
--- NOTE | 2020-04-29 07:59 | General Progress Note ---
Progress Note Progress Note AVSS c/o abd pain. Refusing to ambulate despite warnings. Abdomen unchanged, soft Urine 1425 BCIR ileo 485 WBC up 3900 Platelets up 125,000 Mg 1.6 albumin 2.8 Imp: Malfunctioning Kock pouch with inability to intubate Partial SBO Plan; Surgery today Mg infusion Full discussion with patient regarding the procedure, options, risks (bleeding, infection, injury to adjacent structures or organs, recurrent obstruction, recurrent difficulties with Kock Pouch, etc. Lalo Meadows MD Apr 29, 2020 07:59
--- NOTE | 2020-04-29 08:01 | Pre-Procedure Note/Attestation ---
Pre-Procedure Note/Attestation Complete Prior to Procedure Planned Procedure: not applicable Procedure Narrative: Laparotomy, release partial small bowel obstruction, revision of Kock Pouch and stoma, possible gastrostomy Indications for Procedure Pre-Operative Diagnosis: Partial small bowel obstruction, malfunctioning Kock Pouch Attestation I attest that I discussed the nature of the procedure; its benefits; risks and complications; and alternatives (and the risks and benefits of such alternatives ), prior to the procedure, with the patient (or the patient's legal medical service representative). I attest that, if there was a reasonable possibility of needing a blood transfusion, the patient (or the patient's legal medical service representative) was given the [place] [facility] standardized written summary, pursuant to the [place] Blood Safety Act ([place] Health and Safety Code # 1645, as amended). I attest that I re-evaluated the patient just prior to the surgery and that there has been no change in the patient's H&P, except as documented below: none Lalo Meadows MD Apr 29, 2020 08:01
[2020-04-29] MEDS: BuPROPion SR 100mg tab ORAL SCH ×2 (08:47→18:00)
[2020-04-29] MEDS: Citalopram Hydrobromide 10mg Tab ORAL SCH (08:47)
[2020-04-29] MEDS: celeBREX 200mg Cap **SURGERY PATIENTS ONLY ORAL SCH (08:48)
[2020-04-29] MEDS ORDERED: Heparin 5000 units/ml inj SUBQ SCH (11:00)
[2020-04-29] MEDS ORDERED: Ampicillin/Sulbactam Sod 3 GM in NS 110 ML IV SCH (12:00)
[2020-04-29] MEDS ORDERED: Bacitracin 50000 Units Vial ONE (12:20)
[2020-04-29] MEDS ORDERED: NeoSporin Gu Irrig 1ml Amp IRRIG ONE (12:20)
[2020-04-29] MEDS ORDERED: Rocuronium Bromide 100mg/10ml Inj IV ONE (12:51)
[2020-04-29] MEDS ORDERED: Lidocaine 1% MPF 10mg/ml 5ml ONE (12:57)
[2020-04-29] MEDS ORDERED: Sodium Chloride 10ml vial INJ ONE (12:57)
[2020-04-29] MEDS ORDERED: fentaNYL 100 mcg/2 mL IV ONE (12:59)
[2020-04-29] MEDS ORDERED: LR 1000ml ONE (13:00)
[2020-04-29] MEDS ORDERED: NS Irrig 1000ml ONE (13:00)
[2020-04-29] MEDS ORDERED: PCA Education Pamphlet MISC ONE (13:00)
[2020-04-29] MEDS ORDERED: Midazolam 2mg/2ml Inj ONE (13:00)
[2020-04-29] MEDS ORDERED: Sterile Water Irrig 1000ml IRRIG ONE (13:00)
[2020-04-29] MEDS ORDERED: PCA HYDROmorphone 1mg/ml 30 ML IV PRN (13:00)
[2020-04-29] MEDS ORDERED: Naloxone 0.4mg/ml Inj IVP PRN (13:00)
[2020-04-29] MEDS ORDERED: DiphenhydrAMINE 50mg/ml Inj IVP PRN ×2 (13:00→13:30)
[2020-04-29] MEDS ORDERED: Rate Change PCA 1 Each MISC PRN (13:00)
[2020-04-29] MEDS ORDERED: Lidocaine 1% Plain 30 ml INJ ONE (13:15)
[2020-04-29] MEDS ORDERED: LR 1000ml 1,000 ML IVLG SCH (13:21)
--- NOTE | 2020-04-29 13:23 | Immediate Post-Op Evaluation ---
Immediate Post-Op Evalulation Immediate Post-Op Evalulation Procedure: Revision Of Calderon Continent Ileostomy Date of Evaluation: Apr 29, 2020 Time of Evaluation: 15:59 IV Fluids: 800 LR Blood Products: 0 Estimated Blood Loss: 100 Urinary Output: 100 Blood Pressure Systolic: 208 Blood Pressure Diastolic: 133 Pulse Rate: 85 Respiratory Rate: 16 O2 Sat by Pulse Oximetry: 100 Temperature (Fahrenheit): 98.7 Pain Score (1-10): 2 Nausea: No Vomiting: No Complications 0 Patient Status: awake, reacts, patent, extubated, none Hydration Status: adequate Dru:00 meds given by Floor Given Within 1 Hr of Incision: Yes Time Given: 12:00 Jerod Weaver MD Apr 29, 2020 13:23
[2020-04-29] MEDS ORDERED: HYDROcodone/Acetamin 7.5/325 tab ORAL PRN (13:30)
[2020-04-29] MEDS ORDERED: Hydromorphone 0.5mg/0.5ml inj IVP PRN (13:30)
[2020-04-29] MEDS ORDERED: oxyCODONE HCL/Acetaminophen 5/325mg ORAL PRN (13:30)
[2020-04-29] MEDS ORDERED: Labetalol 5mg/ml 20ml vial IV PRN (13:30)
[2020-04-29] MEDS ORDERED: Atropine Sulfate 0.4mg/ml inj IVP PRN (13:30)
[2020-04-29] MEDS ORDERED: Acetaminophen (Non formulary) 100 ML IV ONE (13:30)
[2020-04-29] MEDS ORDERED: Midazolam 2mg/2ml Inj IVP PRN (13:30)
[2020-04-29] MEDS ORDERED: HYDROcodone/Acetamin 5/325 tab ORAL PRN (13:30)
[2020-04-29] MEDS ORDERED: LORazepam Inj 2mg/ml 1ml IV PRN (13:30)
[2020-04-29] MEDS ORDERED: fentaNYL 100 mcg/2 mL IV PRN (13:30)
[2020-04-29] MEDS ORDERED: Neostigmine 1mg/ml 10ml Inj ONE (15:17)
[2020-04-29] MEDS ORDERED: Glycopyrrolate 0.2mg/ml 1ml Vial ONE (15:17)
--- NOTE | 2020-04-29 15:45 | Brief Operative Note ---
Immediate Post Operative Note Operative Note Pre-op Diagnosis: Partial small bowel obstruction, malfunctioning Kock Pouch Procedure: laparotomy, release of high-grade partial small bowel obstruction, small bowel resection, gastrostomy Post-op Diagnosis: same Post-op Diagnosis: same as pre-op Findings: consistent w/pre-op dx studies Surgeon: charlotte Additional Surgeons: antoinette Anesthesiologist: jean Specimen: yes - small bowel resection Complications: none Condition: stable Fluids: see anesthesia record Estimated Blood Loss: volume - 100cc Drains: other - 28 Busch to Kock pouch, 18 Busch gastrostomy Implant(s) used?: No Lalo Meadows MD Apr 29, 2020 15:45
[2020-04-29] MEDS ORDERED: Potassium Phosphate 15mm/250ml 250 ML IVPB ONE (17:00)
[2020-04-29] MEDS: D5 1/2NS w/KCl 20mEq 1,000 ML IV SCH (18:46)
[2020-04-29] MEDS: PCA shift volume MISC SCH (19:00)
[2020-04-29] MEDS: Dyna-Hex 2% Top Sol 2oz TOPIC SCH (20:40)
[2020-04-29] MEDS: Fat Emulsion Iv 20% 216 ML in Tpn 1,680 ML IV SCH (20:51)
[2020-04-29] MEDS: TraZODone 100mg tab ORAL SCH (21:00)
[2020-04-29] MEDS: MYRBETRIQ 50 MG ORAL SCH (21:29)
[2020-04-29] MEDS: Iron Sucrose 100 MG in NS 55 ML IV SCH (21:29)
--- NOTE | 2020-04-29 22:30 | Operative Note - Dictated ---
DATE OF OPERATION: 04/29/2020 SURGEON: Lalo Meadows MD ADDITIONAL SURGEON: Rob Cole MD ANESTHESIOLOGIST: Jerod Weaver MD TYPE OF ANESTHESIA: General endotracheal. PREOPERATIVE DIAGNOSES: 1. High-grade partial small bowel obstruction. 2. Malfunctioning Kock pouch continent ileostomy with some difficulty with intubation. 3. History of ulcerative colitis. 4. STATUS POST MULTIPLE ABDOMINAL OPERATIONS: 4.1. Proctocolectomy and Kock pouch in 1978. 4.2. Laparotomy for small bowel obstruction in 2000. 4.3. Laparotomy with creation of new valve and stoma with preservation of Kock pouch, enteroenterostomy, and revision of Kock pouch stoma in depth August 28, 2019. POSTOPERATIVE DIAGNOSES: 1. High-grade partial small bowel obstruction. 2. Malfunctioning Kock pouch continent ileostomy with some difficulty with intubation. 3. History of ulcerative colitis. 4. STATUS POST MULTIPLE ABDOMINAL OPERATIONS: 4.1. Proctocolectomy and Kock pouch in 1978. 4.2. Laparotomy for small bowel obstruction in 2000. 4.3. Laparotomy with creation of new valve and stoma with preservation of Kock pouch, enteroenterostomy, and revision of Kock pouch stoma in depth August 28, 2019. OPERATION PERFORMED: 1. Laparotomy with small bowel resection and release of severe high-grade partial small bowel obstruction due to dense adhesions. 2. Release of small chronic intra-abdominal abscess. 3. Testing of Kock pouch continent ileostomy. 4. Catheter gastrostomy. DESCRIPTION OF PROCEDURE: The patient was taken to the operating room and under general anesthesia with sequential compression device stockings in place and having received preoperative intravenous antibiotics and subcutaneous heparin, the patient was prepped and draped in the usual fashion. Previous midline incision was reopened from umbilicus to pubis, but in view of the severity of the adhesions, it had to be extended into the midepigastrium where the abdomen was more free of adhesions. There was markedly dilated jejunum down to an area of intense adhesions where the bowel was twisted upon itself and then distally was decompressed bowel. It was not possible to avoid multiple small enterotomies during mobilization of this. A 28-Albanian Busch catheter was placed through the stoma in the right lower quadrant into the pouch without any difficulty. It could be palpated into the deep pelvis and she is known to have a pouch with 600 mL capacity. There was no difficulty introducing the catheter and it maybe that her difficulty that she perceived was not getting any output because of this high-grade obstruction. There was one area along the anterior wall of the pouch with 1-2cc of old purulent fluid that was evacuated and collected for culture, but no fistulous opening. This was cleaned, debrided, and imbricated with 3-0 silk. Seerosal tears in the proximal dilated bowel were repaired with 3-0 silk. A segment of bowel approximately 1.5 feet had to be resected, which was accomplished with a VAMSI stapling device and the [employer] KKerbeat vessel-sealing electrosurgical device. Then a [id number], functional end-to-end VAMSI stapled anastomosis was created, with the enterotomy closed with a VAMSI stapler and a 3-0 silk placed at the apex. Mesentery closed with 3-0 silk. The bowel had all been decompressed with the enterotomies prior to doing this and from above through an orogastric tube. I felt no need to try and mobilize the pouch out of the pelvis with the risks of severe damage to the pouch and to the bladder as it was densely adherent and there was no history of any incontinence and with no difficulty catheterizing. If necessary, the patient could have a stoma revision separately at a later time. The abdomen and pelvis were copiously irrigated. The afferent bowel leading to the pouch was manually occluded and the pouch distended with 650 mL of saline. The catheter was removed and there was no incontinence. The catheter was reintroduced readily and the pouch decompressed. The catheter was positioned in the apex by palpation and sutured to the skin with two sutures of 2-0 silk. It was flushed and connected to a gravity drainage bag. The bowel loops were all replaced anatomically. There was a fairly marked serositis as well. The gallbladder was distended but the wall was normal. In view of all of the dissection and anastomosis, I felt long-term decompression would be needed and at an appropriate location anterior wall, greater curve body of the stomach, an 18-Albanian Busch catheter was brought through the abdominal wall and placed into the stomach between 2-0 chromic pursestring suture with the stomach sutured to the anterior abdominal wall with multiple sutures of 3-0 silk and the balloon inflated and positioned in the fundus. The catheter was sutured to the skin with 2-0 silk and flushed and connected to a gravity drainage bag. After ascertaining that hemostasis was secure the midline incision was closed in one layer with continuous #1 looped PDS. Additional antibiotic irrigation used and the skin closed with lu. Dry sterile dressings were applied. Final sponge and needle counts were correct. The patient tolerated the procedure well, left the operating room in stable condition. Lalo Meadows M.D. DR: Jerrica JOB#: [id number] CC: MICHELLE
[2020-04-30] VITALS: BP 110/66
[2020-04-30] MEDS: NovoLOG Insulin Flexpen SUBQ SCH ×4 (00:18→17:14)
[2020-04-30] MEDS: Ampicillin/Sulbactam Sod 3 GM in NS 110 ML IV SCH ×4 (01:00→17:54)
[2020-04-30 04:00] VITALS: BP 121/65
[2020-04-30 05:59] LABS: ALANINE AMINOTRANSFERASE 11 U/L (12-78); ALBUMIN 2.2 G/DL (3.4-5.0); ALBUMIN/GLOBULIN RATIO 0.8 (1.0-2.7); ALKALINE PHOSPHATASE 35 U/L (46-116); ANION GAP 6 mmol/L (5-15); ASPARTATE AMINO TRANSFERASE 9 U/L (15-37); BILIRUBIN,TOTAL 0.4 MG/DL (0.2-1.0); BLOOD UREA NITROGEN 11 mg/dL (7-18); CALCIUM 7.9 MG/DL (8.5-10.1); CARBON DIOXIDE 29 MMOL/L (21-32); CHLORIDE 109 MMOL/L (98-107); CREATININE 0.9 MG/DL (0.55-1.30); PHOSPHORUS 3.1 MG/DL (2.5-4.9); POTASSIUM 4.7 MMOL/L (3.5-5.1); SODIUM 144 MMOL/L (136-145)
[2020-04-30 06:35] LABS: BASOPHILS % (AUTO) 0.7 % (0.0-2.0); HEMATOCRIT 39.5 % (37.0-47.0); HEMOGLOBIN 12.8 G/DL (12.0-16.0); LYMPHOCYTES % (AUTO) 6.7 % (20.0-45.0); MEAN CORPUSCULAR VOLUME 99 FL (80-99); MONOCYTES % (AUTO) 10.3 % (1.0-10.0); NEUTROPHILS % (AUTO) 82.2 % (45.0-75.0); PLATELET COUNT 105 K/UL (150-450); RED CELL DISTRIBUTION WIDTH 11.9 % (11.6-14.8); WHITE BLOOD COUNT 8.6 K/UL (4.8-10.8)
[2020-04-30] MEDS: PCA shift volume MISC SCH ×2 (07:00→19:25)
[2020-04-30 08:00] VITALS: BP 116/55
[2020-04-30] MEDS: Citalopram Hydrobromide 10mg Tab ORAL SCH (09:28)
[2020-04-30] MEDS: Pantoprazole Inj IVP SCH (09:29)
[2020-04-30] MEDS: BuPROPion SR 100mg tab ORAL SCH ×2 (09:29→17:16)
[2020-04-30] MEDS ORDERED: Naloxone 0.4mg/ml Inj IVP PRN (09:40)
[2020-04-30] MEDS ORDERED: Rate Change PCA 1 Each MISC PRN (09:45)
--- NOTE | 2020-04-30 09:52 | General Progress Note ---
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
--- NOTE | 2020-04-30 11:36 | 48 Hour Post Anesthesia Eval ---
Post Anesthesia Evaluation Procedure: Revision Of Calderon Continent Ileostomy Date of Evaluation: Apr 30, 2020 Time of Evaluation: 11:34 Blood Pressure Systolic: 124 0: 77 Pulse Rate: 76 Respiratory Rate: 18 Temperature (Fahrenheit): 97.6 O2 Sat by Pulse Oximetry: 99 Airway: patent Nausea: No Vomiting: No Pain Intensity: 3 Hydration Status: adequate Cardiopulmonary Status: stable Mental Status/LOC: patient returned to baseline Follow-up Care/Observations: n/a Post-Anesthesia Complications: none Follow-up care needed: N/A Julien Elias MD Apr 30, 2020 11:36
[2020-04-30 12:00] VITALS: BP 101/51
[2020-04-30] MEDS ORDERED: DiphenhydrAMINE 50mg/ml Inj IVP PRN (13:00)
[2020-04-30] MEDS ORDERED: PCA HYDROmorphone 1mg/ml 30 ML IV PRN (13:00)
[2020-04-30] MEDS: D5 1/2NS w/KCl 20mEq 1,000 ML IV SCH (13:22)
[2020-04-30 16:00] VITALS: BP_SYST 108; BP_DIAS 51; BP_DIAS 53
[2020-04-30 20:00] VITALS: BP 118/61
[2020-04-30] MEDS: Dyna-Hex 2% Top Sol 2oz TOPIC SCH (20:47)
[2020-04-30] MEDS: TraZODone 100mg tab ORAL SCH (20:48)
[2020-04-30] MEDS: Iron Sucrose 100 MG in NS 55 ML IV SCH (20:48)
[2020-04-30] MEDS: Fat Emulsion Iv 20% 216 ML in Tpn 1,680 ML IV SCH (20:49)
[2020-04-30] MEDS: MYRBETRIQ 50 MG ORAL SCH (20:50)
[2020-05-01] VITALS: BP 121/60
[2020-05-01] MEDS: Ampicillin/Sulbactam Sod 3 GM in NS 110 ML IV SCH ×4 (00:09→18:28)
[2020-05-01] MEDS: D5 1/2NS w/KCl 20mEq 1,000 ML IV SCH ×2 (02:54→14:18)
[2020-05-01 04:00] VITALS: BP 121/60
[2020-05-01] MEDS: NovoLOG Insulin Flexpen SUBQ SCH ×4 (05:54→18:36)
[2020-05-01] MEDS ORDERED: PCA HYDROmorphone 1mg/ml 30 ML IV PRN ×2 (06:45→07:55)
[2020-05-01] MEDS ORDERED: NS 250 ML IVLG ONE (06:46)
[2020-05-01] MEDS: PCA shift volume MISC SCH ×2 (07:00→19:22)
[2020-05-01 07:03] LABS: ALANINE AMINOTRANSFERASE 9 U/L (12-78); ALBUMIN 1.7 G/DL (3.4-5.0); ALBUMIN/GLOBULIN RATIO 0.5 (1.0-2.7); ALKALINE PHOSPHATASE 38 U/L (46-116); ANION GAP 5 mmol/L (5-15); ASPARTATE AMINO TRANSFERASE 11 U/L (15-37); BILIRUBIN,TOTAL 0.4 MG/DL (0.2-1.0); BLOOD UREA NITROGEN 13 mg/dL (7-18); CALCIUM 7.9 MG/DL (8.5-10.1); CARBON DIOXIDE 29 MMOL/L (21-32); CHLORIDE 107 MMOL/L (98-107); CREATININE 0.8 MG/DL (0.55-1.30); PHOSPHORUS 1.8 MG/DL (2.5-4.9); POTASSIUM 3.9 MMOL/L (3.5-5.1); SODIUM 140 MMOL/L (136-145)
[2020-05-01 07:20] LABS: BASOPHILS % (AUTO) 0.6 % (0.0-2.0); EOSINOPHILS % (AUTO) 0.1 % (0.0-3.0); HEMATOCRIT 33.9 % (37.0-47.0); HEMOGLOBIN 11.2 G/DL (12.0-16.0); LYMPHOCYTES % (AUTO) 9.6 % (20.0-45.0); MEAN CORPUSCULAR VOLUME 99 FL (80-99); MONOCYTES % (AUTO) 11.9 % (1.0-10.0); NEUTROPHILS % (AUTO) 77.8 % (45.0-75.0); PLATELET COUNT 121 K/UL (150-450); RED BLOOD COUNT 3.43 M/UL (4.20-5.40)
[2020-05-01] MEDS ORDERED: Naloxone 0.4mg/ml Inj IVP PRN (07:53)
[2020-05-01 08:00] VITALS: BP 111/52
[2020-05-01] MEDS ORDERED: Rate Change PCA 1 Each MISC PRN (08:00)
--- NOTE | 2020-05-01 08:10 | General Progress Note ---
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
[2020-05-01] MEDS: Pantoprazole Inj IVP SCH (08:32)
[2020-05-01] MEDS: Citalopram Hydrobromide 10mg Tab ORAL SCH (08:32)
[2020-05-01] MEDS: BuPROPion SR 100mg tab ORAL SCH ×2 (08:32→18:28)
[2020-05-01] MEDS: Heparin 5000 units/ml inj SUBQ SCH ×2 (08:33→20:24)
[2020-05-01] MEDS ORDERED: DiphenhydrAMINE 50mg/ml Inj IVP PRN (09:00)
[2020-05-01] MEDS ORDERED: Potassium Phosphate 15mm/250ml 250 ML IVPB SCH (09:00)
[2020-05-01 12:00] VITALS: BP 127/68
[2020-05-01] MEDS: Potassium Phosphate 15mm/250ml 250 ML IVPB SCH ×2 (14:20→19:22)
[2020-05-01 16:00] VITALS: BP 120/67
[2020-05-01 20:00] VITALS: BP_SYST 116; BP_DIAS 64; BP_DIAS 66
[2020-05-01] MEDS: Dyna-Hex 2% Top Sol 2oz TOPIC SCH (20:18)
[2020-05-01] MEDS: MYRBETRIQ 50 MG ORAL SCH (20:18)
[2020-05-01] MEDS: Iron Sucrose 100 MG in NS 55 ML IV SCH (20:19)
[2020-05-01] MEDS: TraZODone 100mg tab ORAL SCH (20:19)
[2020-05-01] MEDS: Fat Emulsion Iv 20% 216 ML in Tpn 1,680 ML IV SCH (20:24)
[2020-05-02] VITALS (8 sets, daily range): BP systolic 111–131; BP diastolic 56–68
[2020-05-02] MEDS: Ampicillin/Sulbactam Sod 3 GM in NS 110 ML IV SCH ×2 (00:16→05:30)
[2020-05-02] MEDS: D5 1/2NS w/KCl 20mEq 1,000 ML IV SCH ×3 (00:25→20:27)
[2020-05-02] MEDS: NovoLOG Insulin Flexpen SUBQ SCH ×4 (05:25→18:00)
[2020-05-02 06:56] LABS: ALANINE AMINOTRANSFERASE 6 U/L (12-78); ALBUMIN 1.6 G/DL (3.4-5.0); ALBUMIN/GLOBULIN RATIO 0.5 (1.0-2.7); ALKALINE PHOSPHATASE 50 U/L (46-116); ANION GAP 4 mmol/L (5-15); ASPARTATE AMINO TRANSFERASE 10 U/L (15-37); BILIRUBIN,TOTAL 0.4 MG/DL (0.2-1.0); BLOOD UREA NITROGEN 11 mg/dL (7-18); CALCIUM 7.8 MG/DL (8.5-10.1); CARBON DIOXIDE 30 MMOL/L (21-32); CHLORIDE 108 MMOL/L (98-107); CREATININE 0.8 MG/DL (0.55-1.30); PHOSPHORUS 2.9 MG/DL (2.5-4.9); POTASSIUM 4.3 MMOL/L (3.5-5.1); SODIUM 141 MMOL/L (136-145)
[2020-05-02 06:58] LABS: BASOPHILS % (AUTO) 0.4 % (0.0-2.0); HEMATOCRIT 32.9 % (37.0-47.0); HEMOGLOBIN 10.6 G/DL (12.0-16.0); LYMPHOCYTES % (AUTO) 8.8 % (20.0-45.0); MEAN CORPUSCULAR VOLUME 99 FL (80-99); MONOCYTES % (AUTO) 9.2 % (1.0-10.0); NEUTROPHILS % (AUTO) 81.6 % (45.0-75.0); PLATELET COUNT 121 K/UL (150-450); RED BLOOD COUNT 3.31 M/UL (4.20-5.40); RED CELL DISTRIBUTION WIDTH 12.3 % (11.6-14.8); WHITE BLOOD COUNT 6.7 K/UL (4.8-10.8)
[2020-05-02] MEDS: PCA shift volume MISC SCH ×2 (07:17→19:26)
[2020-05-02] MEDS ORDERED: NS Irrig 1000ml ONE (07:31)
[2020-05-02] MEDS ORDERED: Tubing IV Secondary IV ONE ×2 (07:31→21:13)
[2020-05-02] MEDS ORDERED: NS 275ml ONE (07:31)
[2020-05-02] MEDS ORDERED: NS 500ML ONE (07:31)
[2020-05-02] MEDS: LORazepam 1mg tab SL PRN ×2 (07:43→12:45)
[2020-05-02] MEDS ORDERED: PCA HYDROmorphone 1mg/ml 30 ML IV PRN ×3 (08:00→09:30)
[2020-05-02] MEDS ORDERED: Naloxone 0.4mg/ml Inj IVP PRN (09:06)
[2020-05-02] MEDS ORDERED: Ketorolac 30mg Inj IV ONE (09:13)
[2020-05-02] MEDS ORDERED: Ketorolac 30mg Inj IV PRN (09:15)
[2020-05-02] MEDS ORDERED: Rate Change PCA 1 Each MISC PRN (09:15)
--- NOTE | 2020-05-02 09:19 | General Progress Note ---
Progress Note Progress Note AVSS c/o intermittent severe abdominal cramping pains. Yesterday again refused to get out of bet with PT despite being warned of the dangers. Her pain was controlled at that time. Abdomen mild soft distention, non-tender, incision clean, stoma stable Urine 1100 Gastrostomy 330 Kock pouch ileo - scant serous - tube manipulated and flushed WBC 6700 Hgb down 10.6 Platelets 121,000 stable chemistries all stable albumin 1.6 Intra-operative C&S - Klebsiella Imp: Abdominal cramping with ileus post-op release SBO with resection Plan: continue npo, TPN, Busch, gastrostomy and Kock pouch catheters to drainage add Toradol 15mg IV q6h prn x 24 hours d/c Unasyn and start Cefepime 1gm IV q12h for abdominal culture at surgery Lalo Meadows MD May 02, 2020 09:19
[2020-05-02] MEDS ORDERED: DiphenhydrAMINE 50mg/ml Inj IVP PRN (09:30)
[2020-05-02] MEDS: Citalopram Hydrobromide 10mg Tab ORAL SCH (09:34)
[2020-05-02] MEDS: BuPROPion SR 100mg tab ORAL SCH ×2 (09:34→17:16)
[2020-05-02] MEDS: Pantoprazole Inj IVP SCH (09:34)
[2020-05-02] MEDS: Heparin 5000 units/ml inj SUBQ SCH ×2 (09:52→20:22)
[2020-05-02] MEDS: Cefepime HCl 1 GM in D5W 55 ML IVPB SCH ×2 (11:13→20:16)
[2020-05-02] MEDS: TraZODone 100mg tab ORAL SCH (20:17)
[2020-05-02] MEDS: Iron Sucrose 100 MG in NS 55 ML IV SCH (20:17)
[2020-05-02] MEDS: MYRBETRIQ 50 MG ORAL SCH (20:17)
[2020-05-02] MEDS: Dyna-Hex 2% Top Sol 2oz TOPIC SCH (20:17)
[2020-05-02] MEDS: Fat Emulsion Iv 20% 216 ML in Tpn 1,680 ML IV SCH (20:24)
[2020-05-03] VITALS: BP 128/72
[2020-05-03 04:00] VITALS: BP 130/71
[2020-05-03] MEDS: NovoLOG Insulin Flexpen SUBQ SCH ×4 (05:40→18:00)
[2020-05-03 06:08] LABS: BASOPHILS % (AUTO) 0.8 % (0.0-2.0); EOSINOPHILS % (AUTO) 0.1 % (0.0-3.0); HEMATOCRIT 32.1 % (37.0-47.0); HEMOGLOBIN 10.3 G/DL (12.0-16.0); LYMPHOCYTES % (AUTO) 7.3 % (20.0-45.0); MEAN CORPUSCULAR VOLUME 100 FL (80-99); MONOCYTES % (AUTO) 12.5 % (1.0-10.0); NEUTROPHILS % (AUTO) 79.3 % (45.0-75.0); PLATELET COUNT 133 K/UL (150-450); RED BLOOD COUNT 3.21 M/UL (4.20-5.40); RED CELL DISTRIBUTION WIDTH 12.5 % (11.6-14.8); WHITE BLOOD COUNT 6.5 K/UL (4.8-10.8)
[2020-05-03 06:25] LABS: ALANINE AMINOTRANSFERASE 6 U/L (12-78); ALBUMIN 1.5 G/DL (3.4-5.0); ALBUMIN/GLOBULIN RATIO 0.5 (1.0-2.7); ALKALINE PHOSPHATASE 67 U/L (46-116); ANION GAP 2 mmol/L (5-15); ASPARTATE AMINO TRANSFERASE 13 U/L (15-37); BILIRUBIN,TOTAL 0.4 MG/DL (0.2-1.0); BLOOD UREA NITROGEN 12 mg/dL (7-18); CALCIUM 7.9 MG/DL (8.5-10.1); CARBON DIOXIDE 30 MMOL/L (21-32); CHLORIDE 110 MMOL/L (98-107); CREATININE 0.8 MG/DL (0.55-1.30); POTASSIUM 4.6 MMOL/L (3.5-5.1); SODIUM 142 MMOL/L (136-145)
[2020-05-03] MEDS: PCA shift volume MISC SCH ×2 (07:00→19:00)
[2020-05-03 08:00] VITALS: BP 120/65
[2020-05-03] MEDS: Heparin 5000 units/ml inj SUBQ SCH ×2 (08:54→20:39)
[2020-05-03] MEDS: Pantoprazole Inj IVP SCH (08:58)
[2020-05-03] MEDS: BuPROPion SR 100mg tab ORAL SCH ×2 (08:59→18:15)
[2020-05-03] MEDS: Citalopram Hydrobromide 10mg Tab ORAL SCH (08:59)
[2020-05-03] MEDS: Cefepime HCl 1 GM in D5W 55 ML IVPB SCH ×2 (08:59→20:44)
--- NOTE | 2020-05-03 09:16 | General Progress Note ---
Progress Note Progress Note AVSS mild tachycardia 90s, still unable to move around or get up due to pain, yet nurses note her without any pain at times Abdomen soft, slight distention, incision clean, diffuse tenderness, no guarding , stoma stable Urine 2450 Gastrostomy 180 bilious BCIR ileo nil WBC 6500 Hgb 10.3 stable Platelets up 133,000 BUN 12 Cr 0.8 albumin 1.5 Imp: Severe hypoalbuminemia Ileus post-op release SBO Plan; continue npo,TPN, decker, Cefepime (see OR cultures) + Flagyl, Venofer mobilize f/u labs Lalo Meadows MD May 03, 2020 09:16
[2020-05-03] MEDS ORDERED: Naloxone 0.4mg/ml Inj IVP PRN (09:17)
[2020-05-03] MEDS ORDERED: DiphenhydrAMINE 50mg/ml Inj IVP PRN (09:30)
[2020-05-03] MEDS ORDERED: Rate Change PCA 1 Each MISC PRN (09:30)
[2020-05-03 11:32] VITALS: BP 120/64
[2020-05-03 15:46] VITALS: BP 122/67
[2020-05-03 20:00] VITALS: BP 136/77
[2020-05-03] MEDS: Fat Emulsion Iv 20% 216 ML in Tpn 1,680 ML IV SCH (20:38)
[2020-05-03] MEDS: Dyna-Hex 2% Top Sol 2oz TOPIC SCH (20:44)
[2020-05-03] MEDS: Iron Sucrose 100 MG in NS 55 ML IV SCH (20:45)
[2020-05-03] MEDS: D5 1/2NS w/KCl 20mEq 1,000 ML IV SCH (20:45)
[2020-05-03] MEDS: TraZODone 100mg tab ORAL SCH (20:45)
[2020-05-03] MEDS: MYRBETRIQ 50 MG ORAL SCH (20:47)
[2020-05-04] VITALS: BP 112/67
[2020-05-04 04:00] VITALS: BP 114/65
[2020-05-04] MEDS: NovoLOG Insulin Flexpen SUBQ SCH ×4 (05:23→18:00)
[2020-05-04 07:09] LABS: BASOPHILS % (AUTO) 0.4 % (0.0-2.0); EOSINOPHILS % (AUTO) 0.1 % (0.0-3.0); HEMATOCRIT 33.2 % (37.0-47.0); HEMOGLOBIN 10.5 G/DL (12.0-16.0); LYMPHOCYTES % (AUTO) 8.6 % (20.0-45.0); MEAN CORPUSCULAR VOLUME 99 FL (80-99); MONOCYTES % (AUTO) 8.5 % (1.0-10.0); NEUTROPHILS % (AUTO) 82.5 % (45.0-75.0); PLATELET COUNT 172 K/UL (150-450); RED BLOOD COUNT 3.34 M/UL (4.20-5.40); RED CELL DISTRIBUTION WIDTH 12.5 % (11.6-14.8)
[2020-05-04 07:25] LABS: ALANINE AMINOTRANSFERASE 7 U/L (12-78); ALBUMIN 1.7 G/DL (3.4-5.0); ALBUMIN/GLOBULIN RATIO 0.5 (1.0-2.7); ALKALINE PHOSPHATASE 101 U/L (46-116); ANION GAP 5 mmol/L (5-15); ASPARTATE AMINO TRANSFERASE 13 U/L (15-37); BILIRUBIN,TOTAL 0.5 MG/DL (0.2-1.0); BLOOD UREA NITROGEN 13 mg/dL (7-18); CALCIUM 8.4 MG/DL (8.5-10.1); CARBON DIOXIDE 32 MMOL/L (21-32); CHLORIDE 106 MMOL/L (98-107); CREATININE 0.8 MG/DL (0.55-1.30); PHOSPHORUS 3.4 MG/DL (2.5-4.9); POTASSIUM 4.4 MMOL/L (3.5-5.1); SODIUM 143 MMOL/L (136-145)
[2020-05-04] MEDS: PCA shift volume MISC SCH ×2 (07:28→19:00)
[2020-05-04 08:00] VITALS: BP 136/71
[2020-05-04] MEDS ORDERED: Rate Change PCA 1 Each MISC PRN (08:00)
[2020-05-04] MEDS ORDERED: Naloxone 0.4mg/ml Inj IVP PRN (08:00)
[2020-05-04] MEDS ORDERED: DiphenhydrAMINE 50mg/ml Inj IVP PRN (08:00)
[2020-05-04] MEDS ORDERED: PCA HYDROmorphone 1mg/ml 30 ML IV PRN ×2 (08:45)
[2020-05-04] MEDS: Cefepime HCl 1 GM in D5W 55 ML IVPB SCH (08:47)
[2020-05-04] MEDS: Pantoprazole Inj IVP SCH (09:42)
[2020-05-04] MEDS: Citalopram Hydrobromide 10mg Tab ORAL SCH (09:42)
[2020-05-04] MEDS: BuPROPion SR 100mg tab ORAL SCH ×2 (09:42→18:00)
[2020-05-04 12:00] VITALS: BP 134/72
--- NOTE | 2020-05-04 12:12 | General Progress Note ---
Progress Note Progress Note AVSS Pain is improved. Had emesis of solid chunks of material ? old undigested food overnight despite gastrostomy in place to drainage Abdomen remains mildly distended, soft, less tender, incision clean Urine 3950 Gastrostomy 140 Kock pouch ileo small amount serosang fluid WBC 10,000 Hgb 10.5 Platelets up 172,000 Mg 1.6 albumin 1.7 C&S from OR - Klebsiella + Enterococcus Imp: Ileus Plan: continue npo, TPN, Busch, gastrostomy and Kock pouch ileo catheters to continuous drainage ID consultation re optimal antibiotics Mg infusion Lalo Meadows MD May 04, 2020 12:12
--- NOTE | 2020-05-04 13:13 | Infectious Diseases Prog Note ---
Assessment/Plan Assessment/Plan Full consult dictated: A) 1) sbo, intra-abdominal abscess 2) s/p surgery 3) pmh noted 4) allergies - adhesive tape P) 1) vancomycin, cefepime and flagyl 2) d/w Dr. Meadows 3) monitor clinically and labs 4) thank you Subjective Allergies: Coded Allergies: ADHESIVE TAPE (Verified Adverse Reaction, Intermediate, Rash, 08/27/19) CLEAR TAPE Objective Last 24 Hour Vital Signs Date Time Temp Pulse Resp B/P (MAP) Pulse Ox O2 Delivery O2 Flow Rate FiO2 05/04/20 12:30 16 05/04/20 12:00 97.8 94 16 134/72 (92) 94 05/04/20 09:00 Room Air 05/04/20 08:30 16 05/04/20 08:00 98.2 94 16 136/71 (92) 94 05/04/20 07:55 97 Room Air 21 05/04/20 04:00 97 18 97 05/04/20 04:00 98.8 97 18 114/65 (81) 97 05/04/20 00:00 96 19 97 05/04/20 00:00 98.8 96 19 112/67 (82) 97 05/03/20 21:00 Nasal Cannula 2.0 05/03/20 20:00 100 16 96 05/03/20 20:00 98.1 100 16 136/77 (96) 96 05/03/20 19:55 95 Nasal Cannula 2.0 28 05/03/20 15:46 99 20 95 05/03/20 15:46 97.3 99 20 122/67 (85) 95 Height (Feet): 5 Height (Inches): 3.00 Weight (Pounds): 140 Laboratory Tests Test 05/03/20 18:22 05/04/20 00:07 05/04/20 04:00 05/04/20 05:12 POC Whole Blood Glucose Pending 113 MG/DL (74-106) H 121 MG/DL (74-106) H White Blood Count 10.0 K/UL (4.8-10.8) # Red Blood Count 3.34 M/UL (4.20-5.40) L Hemoglobin 10.5 G/DL (12.0-16.0) L Hematocrit 33.2 % (37.0-47.0) L Mean Corpuscular Volume 99 FL (80-99) Mean Corpuscular Hemoglobin 31.4 PG (27.0-31.0) H Mean Corpuscular Hemoglobin Concent 31.6 G/DL (32.0-36.0) L Red Cell Distribution Width 12.5 % (11.6-14.8) Platelet Count 172 K/UL (150-450) Mean Platelet Volume 7.2 FL (6.5-10.1) Neutrophils (%) (Auto) 82.5 % (45.0-75.0) H Lymphocytes (%) (Auto) 8.6 % (20.0-45.0) L Monocytes (%) (Auto) 8.5 % (1.0-10.0) Eosinophils (%) (Auto) 0.1 % (0.0-3.0) Basophils (%) (Auto) 0.4 % (0.0-2.0) Sodium Level 143 MMOL/L (136-145) Potassium Level 4.4 MMOL/L (3.5-5.1) Chloride Level 106 MMOL/L (98-107) Carbon Dioxide Level 32 MMOL/L (21-32) Anion Gap 5 mmol/L (5-15) Blood Urea Nitrogen 13 mg/dL (7-18) Creatinine 0.8 MG/DL (0.55-1.30) Estimat Glomerular Filtration Rate > 60 mL/min (>60) Glucose Level 120 MG/DL (74-106) H Calcium Level 8.4 MG/DL (8.5-10.1) L Phosphorus Level 3.4 MG/DL (2.5-4.9) Magnesium Level 1.6 MG/DL (1.8-2.4) L Total Bilirubin 0.5 MG/DL (0.2-1.0) Aspartate Amino Transf (AST/SGOT) 13 U/L (15-37) L Alanine Aminotransferase (ALT/SGPT) 7 U/L (12-78) L Alkaline Phosphatase 101 U/L (46-116) Total Protein 5.3 G/DL (6.4-8.2) L Albumin 1.7 G/DL (3.4-5.0) L Globulin 3.6 g/dL Albumin/Globulin Ratio 0.5 (1.0-2.7) L Test 05/04/20 12:08 POC Whole Blood Glucose 131 MG/DL (74-106) H Current Medications Medications (Trade) Dose Ordered Sig/Jori Route PRN Reason Start Time Stop Time Status Last Admin Dose Admin Acetaminophen (Tylenol) 1,000 mg Q4H PRN GT temp>100.2 or headache 04/29/20 15:45 05/29/20 15:44 Bupropion HCl (Wellbutrin SR) 200 mg TWICE A DAY ORAL 04/26/20 21:00 05/26/20 20:59 05/04/20 09:42 Cefepime HCl 1 gm/ Dextrose 55 ml @ 110 mls/hr EVERY 12 HOURS IVPB 05/02/20 10:00 05/09/20 09:59 05/04/20 08:47 Chlorhexidine Gluconate (Kathryn-Hex 2%) 1 applic DAILY@2000 TOPIC 04/27/20 20:00 07/26/20 19:59 05/03/20 20:44 Citalopram Hydrobromide (CeleXA) 20 mg DAILY ORAL 04/26/20 21:00 05/27/20 08:59 05/04/20 09:42 Dextrose 1,000 ml @ 0 mls/hr Q24H PRN IV PN interrupted or unavailable 04/28/20 08:30 05/28/20 08:29 Dextrose (Dextrose 50%) 25 ml Q30M PRN IV Hypoglycemia 04/28/20 08:30 07/27/20 08:29 Dextrose (Dextrose 50%) 50 ml Q30M PRN IV Hypoglycemia 04/28/20 08:30 07/27/20 08:29 Dextrose/ Electrolytes 1,000 ml @ 40 mls/hr Q24H IV 05/02/20 10:00 05/28/20 09:59 05/03/20 20:45 Diphenhydramine HCl (Benadryl) 50 mg Q4H PRN IVP Itching/Pruritis 05/04/20 08:00 05/06/20 07:59 Fat Emulsion Intravenous 216 ml/Amino Acids/ Electrolytes/ Dextrose 1,896 ml @ 79 mls/hr Q24H IV 04/28/20 21:00 07/27/20 20:59 05/03/20 20:38 Folic Acid (Folate) 1 mg DAILY ORAL 04/27/20 10:30 05/27/20 10:29 05/04/20 09:45 Hydromorphone HCl 30 ml @ 0 mls/hr SUBCONTRACTS MANAGER protocol PRN IV For Pain 05/04/20 08:45 05/06/20 08:44 Insulin Aspart (NovoLOG) Q6HR SUBQ 04/29/20 00:00 07/28/20 00:00 04/30/20 00:18 Iron Sucrose 100 mg/Sodium Chloride 60 ml @ 240 mls/hr BEDTIME IV 05/02/20 21:00 05/06/20 21:14 05/03/20 20:45 Lorazepam (Ativan) 1 mg Q4H PRN SL Muscle Spasm 05/04/20 08:00 05/11/20 07:59 Metronidazole 100 ml @ 100 mls/hr EVERY 6 HOURS IV 04/29/20 00:00 05/06/20 00:00 05/04/20 12:04 Miscellaneous Medication (SUBCONTRACTS MANAGER Rate Change) 1 ea DAILY PRN MISC rate change 05/04/20 08:00 05/06/20 07:59 Miscellaneous Medication (SUBCONTRACTS MANAGER shift volume) 1 ea Q12HR@0700,1900 MISC 05/04/20 19:00 05/06/20 18:59 Naloxone HCl (Narcan) 0.1 mg Q1M PRN IVP RR<10/min OR SBP<90 mmHg 05/04/20 08:00 05/06/20 07:59 Ondansetron HCl (Zofran) 4 mg Q4H PRN IVP Nausea & Vomiting 04/29/20 15:45 05/29/20 15:44 05/04/20 06:00 Pantoprazole (Protonix) 40 mg DAILY IVP 04/30/20 09:00 05/30/20 08:59 05/04/20 09:42 Patient Own Medication (Patient's Own Med) 1 ea QHS ORAL 04/26/20 21:00 05/26/20 20:59 05/03/20 20:47 Trazodone HCl (Desyrel) 300 mg BEDTIME ORAL 04/27/20 21:00 05/27/20 20:59 05/03/20 20:45 Osmin Bermudez MD May 04, 2020 13:13
[2020-05-04] MEDS: Vancomycin 750 MG in NS 275 ML IVPB SCH (15:13)
[2020-05-04 16:00] VITALS: BP 133/73
[2020-05-04] MEDS ORDERED: NS Irrig 1000ml ONE (19:02)
[2020-05-04 20:00] VITALS: BP 130/74
[2020-05-04] MEDS ORDERED: Metoclopramide 10mg/2ml Inj IVP SCH (20:03)
[2020-05-04] MEDS: Iron Sucrose 100 MG in NS 55 ML IV SCH (20:13)
[2020-05-04] MEDS: Dyna-Hex 2% Top Sol 2oz TOPIC SCH (20:13)
[2020-05-04] MEDS: Fat Emulsion Iv 20% 216 ML in Tpn 1,680 ML IV SCH (20:16)
[2020-05-04] MEDS: TraZODone 100mg tab ORAL SCH (20:31)
[2020-05-04] MEDS: MYRBETRIQ 50 MG ORAL SCH (20:33)
[2020-05-04] MEDS: Acetaminophen 650mg/20.3ml GT PRN (22:23)
[2020-05-04] MEDS ORDERED: Metoclopramide 10mg/2ml Inj IVP PRN (23:00)
[2020-05-05] VITALS: BP 113/52
[2020-05-05] MEDS: Vancomycin 750 MG in NS 275 ML IVPB SCH ×2 (02:39→15:10)
[2020-05-05 04:00] VITALS: BP 140/70
[2020-05-05] MEDS: D5 1/2NS w/KCl 20mEq 1,000 ML IV SCH (04:01)
[2020-05-05] MEDS: NovoLOG Insulin Flexpen SUBQ SCH ×4 (06:00→18:00)
[2020-05-05 06:11] LABS: ALANINE AMINOTRANSFERASE 6 U/L (12-78); ALBUMIN 1.8 G/DL (3.4-5.0); ALBUMIN/GLOBULIN RATIO 0.5 (1.0-2.7); ALKALINE PHOSPHATASE 136 U/L (46-116); ANION GAP 5 mmol/L (5-15); ASPARTATE AMINO TRANSFERASE 16 U/L (15-37); BILIRUBIN,TOTAL 0.5 MG/DL (0.2-1.0); BLOOD UREA NITROGEN 12 mg/dL (7-18); CARBON DIOXIDE 32 MMOL/L (21-32); CHLORIDE 106 MMOL/L (98-107); CREATININE 0.9 MG/DL (0.55-1.30); PHOSPHORUS 3.3 MG/DL (2.5-4.9); POTASSIUM 4.6 MMOL/L (3.5-5.1); SODIUM 143 MMOL/L (136-145)
[2020-05-05 06:12] LABS: HEMATOCRIT 34.3 % (37.0-47.0); HEMOGLOBIN 11.1 G/DL (12.0-16.0); MEAN CORPUSCULAR VOLUME 99 FL (80-99); PLATELET COUNT 53 K/UL (150-450); RED BLOOD COUNT 3.46 M/UL (4.20-5.40); RED CELL DISTRIBUTION WIDTH 12.5 % (11.6-14.8); WHITE BLOOD COUNT 11.7 K/UL (4.8-10.8)
[2020-05-05] MEDS: PCA shift volume MISC SCH ×2 (07:22→19:19)
[2020-05-05] MEDS ORDERED: Naloxone 0.4mg/ml Inj IVP PRN (07:58)
[2020-05-05 08:00] VITALS: BP 138/80
[2020-05-05] MEDS ORDERED: Rate Change PCA 1 Each MISC PRN (08:00)
[2020-05-05] MEDS ORDERED: DiphenhydrAMINE 50mg/ml Inj IVP PRN (08:00)
[2020-05-05] MEDS ORDERED: Omnipaque-300 100ml vial INJ PRN (08:00)
--- NOTE | 2020-05-05 08:17 | General Progress Note ---
Progress Note Progress Note T 101.4 x 1 Now on Cefepime, Flagyl and Vancomycin Abdominal pain may be less because she has spine pain chronic and is off her Celebrex. Has been unable to ambulate Abdomen only mild soft distention, scant tenderness, incision clean Urine 5440 Gastrostomy 430 BCIR ileo nil WBC 11,700 Hgb 11.1 Platelets down 53,000 BUN 12 Cr 0.9 albumin 1.8 Imp: Abdominal pain and no Kock pouch ileostomy output Ileus ' atelectasis Plan; d/c SQ heparin and prn toradol (one dose only given) CXR, U/A, urine C&S STAT CT abd+pelvis f/u labs - may need Hematology Consultation re platelet count continue TPN, npo, Lalo Fong MD May 05, 2020 08:17
[2020-05-05 08:58] LABS: APPEARANCE,URINE CLEAR; BILIRUBIN, URINE NEGATIVE (NEGATIVE); COLOR,URINE PALE YELLOW; GLUCOSE, URINE (UA) NEGATIVE (NEGATIVE); KETONES,URINE NEGATIVE (NEGATIVE); LEUKOCYTE ESTERASE ,URINE 1+ (NEGATIVE); NITRITE,URINE NEGATIVE (NEGATIVE); PH,URINE 8 (4.5-8.0); PROTEIN,URINE NEGATIVE (NEGATIVE); UROBILINOGEN,URINE NORMAL MG/DL (0.0-1.0)
[2020-05-05] MEDS: Pantoprazole Inj IVP SCH (09:30)
[2020-05-05] MEDS: BuPROPion SR 100mg tab ORAL SCH ×2 (09:30→17:52)
[2020-05-05] MEDS: Citalopram Hydrobromide 10mg Tab ORAL SCH (09:30)
--- NOTE | 2020-05-05 11:46 | Diagnostic Imaging Report ---
Indication: Fever, shortness of breath Technique: One view of the chest Comparison: 08/30/2019 Findings: Interim placement right arm PICC. Previously demonstrated left lung infiltrate is no longer evident, left lung and pleural space are clear. However, some hazy in streaky parenchymal opacities are seen in the right infrahilar region and inferior right upper lobe Impression: Positive for infiltrates in the right infrahilar region inferior right upper lobe. PICC
[2020-05-05 12:00] VITALS: BP 132/76
[2020-05-05] MEDS: HYDROmorphone 1mg/ml Carpuject SUBQ PRN ×2 (12:06→17:52)
--- NOTE | 2020-05-05 13:53 | Diagnostic Imaging Report ---
Clinical Indication: Abdominal pain, history of bowel resection for small bowel obstruction Technique: Patient ingested enteric contrast IV administration nonionic contrast. Venous phase spiral acquisition obtained through the abdomen and pelvis. Multiplanar reconstructions were generated. Total dose length product 387 mGycm. CTDIvol(s) 7 mGy. Dose reduction achieved using automated exposure control Comparison: 04/27/2020 Findings: Interim surgery with a midline staple line present. There is some edema along the incision line. There is and edematous area versus a tiny fluid pocket which measures 14 x 12 mm along the inferior aspect of the staple line. Again demonstrated is a right lower quadrant continent ileostomy. This contains a catheter, the tip of which is deep within the reservoir. There are 2 staple lines in the right lower quadrant small bowel, one of which is presumably new as only single staple line was present previously. The proximal jejunum is markedly dilated. There is transition to normal caliber jejunum in the posterior midline, although the transition appears to be somewhat tapered. None of the ingested contrast has exited the stomach, however. Small bowel loops leading into the ileostomy appear to be nondilated. There is an ill-defined fluid collection in the pelvis posterior to the reservoir. This measures 4.7 x 2.3 cm. There is a fluid collection in the peritoneal space the to the umbilicus, which measures 5 x 2.2 cm, and demonstrates rim enhancement. A small collection of extraluminal gas is seen immediately caudad to this, and a few other gas bubbles are seen within the peritoneal space immediately more caudad. There is an apparent fluid collection lateral to the pouch anteriorly on the left which measures approximately 5 x 2.5 cm. This is triangular in shape. However, this may be intraluminal within a small bowel loop. There is a small fluid collection measuring 6 x 1.4 cm adjacent to the gallbladder fundus also within the peritoneal space. There has been interim placement of a gastrostomy. The balloon and tip appears well-positioned within the lumen of the gastric body The gallbladder is distended. There is mild gallbladder wall thickening, which is not evident previously. No definite gallstones. As previously, there is extrahepatic biliary ductal dilatation. The common hepatic duct appears more dilated than previously, measuring up to 14 mm in diameter, and there is questionably a hyperattenuating 4 mm calculus within the common bile duct seen on image 40 of series 3 and not clearly evident previously. The common bile duct also appears slightly more dilated. The liver is unremarkable. The pancreas is somewhat atrophic. Spleen, adrenals are unremarkable. No focal renal parenchymal abnormality. There is minimal right hydronephrosis and minimal ectasia of the proximal ureter which are not evident previously. The bladder is empty, contains a Busch catheter. Small amount gas within the bladder lumen is probably related to the Busch catheterization. No pelvic mass or adenopathy. The bones are unremarkable except for mild degenerative spondylosis changes. There are bilateral pleural effusions which are moderate in size. This is a new finding. There is compressive atelectasis of portions of both lower lobes. Impression: Evidence of interim surgery, presumably for repair of previously reported small bowel obstruction Dilated proximal small bowel loops with normal caliber distal small bowel, absence of contrast emptying from the stomach. There is gradual tapering to normal caliber distal small bowel . Findings most likely represent postoperative ileus and/or atony of the maximal small bowel due to long-standing obstruction. However, the possibility of ongoing small bowel obstruction an also be considered Multiple intraperitoneal and pelvic fluid collections as described. These most likely represent retained postoperative fluid, but abscess as etiology of any these cannot be excluded Gallbladder distention. This has been demonstrated previously but is somewhat more striking currently, and there is currently mild thickening of the gallbladder wall. In addition, there is slightly increased dilatation of the extrahepatic bile ducts. There is a very questionable hyperattenuating focus in the downstream common bile duct which could represent a small stone. Recommend correlation with liver function tests, and consideration for MRCP and/or hepatobiliary nuclear scan if clinically indicated Gastrostomy in place Mild fullness right hydronephrosis, significance/etiology uncertain. Empty bladder with a Busch catheter Bilateral pleural effusions Mild edema of the bilateral flank subcutaneous fat Findings suspicious phone with Dr. Meadows at the time of interpretation The CT scanner at [facility] is accredited by the [employer] and the scans are performed using protocols designed to limit radiation exposure to as low as reasonably achievable to attain images of sufficient resolution adequate for diagnostic evaluation.
[2020-05-05 16:00] VITALS: BP 128/68
[2020-05-05] MEDS: Metoclopramide 10mg/2ml Inj IVP SCH (17:54)
[2020-05-05 20:00] VITALS: BP 121/72
--- NOTE | 2020-05-05 20:09 | Infectious Diseases Prog Note ---
Assessment/Plan Assessment/Plan Full consult dictated: A) 1) sbo, intra-abdominal abscess - culture with klebsiella and enterococcus 2) s/p surgery 3) pmh noted 4) allergies - adhesive tape P) 1) vancomycin, cefepime and flagyl - change cefepime to ciprofloxacin 2) communicated with Dr. Meadows 3) monitor clinically and labs 4) will f/u 5) d/w pharmacy Subjective Constitutional: Denies: fever HEENT: Denies: congestion Respiratory: Denies: shortness of breath Cardiovascular: Denies: chest pain Gastrointestinal/Abdominal: Denies: nausea, vomiting, diarrhea Genitourinary: Reports: other - no decker Neurologic: Denies: headache Psychiatric: Denies: depression Skin: Denies: rash Hematologic: Denies: bleeding Musculoskeletal: Denies: pain Allergies: Coded Allergies: ADHESIVE TAPE (Verified Adverse Reaction, Intermediate, Rash, 08/27/19) CLEAR TAPE Objective Last 24 Hour Vital Signs Date Time Temp Pulse Resp B/P (MAP) Pulse Ox O2 Delivery O2 Flow Rate FiO2 05/05/20 19:57 97 Room Air 21 05/05/20 16:00 99.0 90 16 128/68 (88) 97 05/05/20 16:00 16 05/05/20 12:15 16 05/05/20 12:00 99.1 103 16 132/76 (94) 94 05/05/20 09:00 Room Air 05/05/20 08:00 99.5 100 16 138/80 (99) 94 05/05/20 08:00 16 05/05/20 07:49 96 Room Air 21 05/05/20 04:00 95 16 93 05/05/20 04:00 98.4 95 18 140/70 (93) 93 05/05/20 00:00 97.4 88 16 113/52 (72) 94 05/05/20 00:00 89 16 94 05/04/20 22:53 99.0 05/04/20 21:00 Room Air 05/04/20 21:00 99.0 05/04/20 20:16 96 Room Air 21 Height (Feet): 5 Height (Inches): 3.00 Weight (Pounds): 140 General Appearance: no acute distress HEENT: normocephalic, atraumatic, anicteric Respiratory/Chest: lungs clear, normal breath sounds, no respiratory distress Cardiovascular: normal rate, regular rhythm, no gallop/murmur Abdomen: normal bowel sounds, soft, non tender, no organomegaly, non distended Extremities: no cyanosis Skin: no rash Neurologic/Psychiatric: cmo II-XII grossly normal, alert, oriented x 3 Laboratory Tests Test 05/05/20 00:08 05/05/20 04:40 05/05/20 05:20 05/05/20 08:35 POC Whole Blood Glucose Pending 134 MG/DL (74-106) H White Blood Count 11.7 K/UL (4.8-10.8) H Red Blood Count 3.46 M/UL (4.20-5.40) L Hemoglobin 11.1 G/DL (12.0-16.0) L Hematocrit 34.3 % (37.0-47.0) L Mean Corpuscular Volume 99 FL (80-99) Mean Corpuscular Hemoglobin 32.0 PG (27.0-31.0) H Mean Corpuscular Hemoglobin Concent 32.3 G/DL (32.0-36.0) Red Cell Distribution Width 12.5 % (11.6-14.8) Platelet Count 53 K/UL (150-450) #L Mean Platelet Volume 9.6 FL (6.5-10.1) Neutrophils (%) (Auto) % (45.0-75.0) Lymphocytes (%) (Auto) % (20.0-45.0) Monocytes (%) (Auto) % (1.0-10.0) Eosinophils (%) (Auto) % (0.0-3.0) Basophils (%) (Auto) % (0.0-2.0) Sodium Level 143 MMOL/L (136-145) Potassium Level 4.6 MMOL/L (3.5-5.1) Chloride Level 106 MMOL/L (98-107) Carbon Dioxide Level 32 MMOL/L (21-32) Anion Gap 5 mmol/L (5-15) Blood Urea Nitrogen 12 mg/dL (7-18) Creatinine 0.9 MG/DL (0.55-1.30) Estimat Glomerular Filtration Rate > 60 mL/min (>60) Glucose Level 134 MG/DL (74-106) H Calcium Level 8.0 MG/DL (8.5-10.1) L Phosphorus Level 3.3 MG/DL (2.5-4.9) Magnesium Level 2.0 MG/DL (1.8-2.4) Total Bilirubin 0.5 MG/DL (0.2-1.0) Aspartate Amino Transf (AST/SGOT) 16 U/L (15-37) Alanine Aminotransferase (ALT/SGPT) 6 U/L (12-78) L Alkaline Phosphatase 136 U/L (46-116) H Total Protein 5.7 G/DL (6.4-8.2) L Albumin 1.8 G/DL (3.4-5.0) L Globulin 3.9 g/dL Albumin/Globulin Ratio 0.5 (1.0-2.7) L Urine Color Pale yellow Urine Appearance Clear Urine pH 8 (4.5-8.0) Urine Specific [employer] 1.010 (1.005-1.035) Urine Protein Negative (NEGATIVE) Urine Glucose (UA) Negative (NEGATIVE) Urine Ketones Negative (NEGATIVE) Urine Blood 1+ (NEGATIVE) H Urine Nitrite Negative (NEGATIVE) Urine Bilirubin Negative (NEGATIVE) Urine Urobilinogen Normal MG/DL (0.0-1.0) Urine Leukocyte Esterase 1+ (NEGATIVE) H Urine RBC 0-2 /HPF (0 - 2) Urine WBC 0-2 /HPF (0 - 2) Urine Squamous Epithelial Cells Occasional /LPF Urine Bacteria Occasional /HPF (NONE) Test 05/05/20 12:04 05/05/20 18:07 POC Whole Blood Glucose 101 MG/DL (74-106) 123 MG/DL (74-106) H Current Medications Medications (Trade) Dose Ordered Sig/Jori Route PRN Reason Start Time Stop Time Status Last Admin Dose Admin Acetaminophen (Tylenol) 1,000 mg Q4H PRN GT temp>100.2 or headache 04/29/20 15:45 05/29/20 15:44 05/04/20 22:23 Barium Sulfate (Readi-Cat 2) 450 ml NOW PRN ORAL Radiology Procedure 05/05/20 08:00 05/07/20 08:00 Bupropion HCl (Wellbutrin SR) 200 mg TWICE A DAY ORAL 04/26/20 21:00 05/26/20 20:59 05/05/20 17:52 Chlorhexidine Gluconate (Kathryn-Hex 2%) 1 applic DAILY@2000 TOPIC 04/27/20 20:00 07/26/20 19:59 05/04/20 20:13 Citalopram Hydrobromide (CeleXA) 20 mg DAILY ORAL 04/26/20 21:00 05/27/20 08:59 05/05/20 09:30 Dextrose 1,000 ml @ 0 mls/hr Q24H PRN IV PN interrupted or unavailable 04/28/20 08:30 05/28/20 08:29 Dextrose (Dextrose 50%) 25 ml Q30M PRN IV Hypoglycemia 04/28/20 08:30 07/27/20 08:29 Dextrose (Dextrose 50%) 50 ml Q30M PRN IV Hypoglycemia 04/28/20 08:30 07/27/20 08:29 Dextrose/ Electrolytes 1,000 ml @ 40 mls/hr Q24H IV 05/02/20 10:00 05/28/20 09:59 05/05/20 04:01 Diphenhydramine HCl (Benadryl) 50 mg Q4H PRN IVP Itching/Pruritis 05/05/20 08:00 05/07/20 07:59 Fat Emulsion Intravenous 216 ml/Amino Acids/ Electrolytes/ Dextrose 1,896 ml @ 79 mls/hr Q24H IV 04/28/20 21:00 07/27/20 20:59 05/04/20 20:16 Folic Acid (Folate) 1 mg DAILY ORAL 04/27/20 10:30 05/27/20 10:29 05/05/20 09:29 Hydromorphone HCl 30 ml @ 0 mls/hr PAPER CONSERVATOR protocol PRN IV For Pain 05/04/20 08:45 05/06/20 08:44 05/05/20 15:12 Hydromorphone HCl (Dilaudid) 1 mg Q3H PRN SUBQ Breakthrough Pain 05/05/20 12:00 05/12/20 11:59 05/05/20 17:52 Insulin Aspart (NovoLOG) Q6HR SUBQ 04/29/20 00:00 07/28/20 00:00 04/30/20 00:18 Iohexol (OMNIPAQUE-300 100ml) 100 ml NOW PRN INJ Radiology Procedure 05/05/20 08:00 05/07/20 08:00 Iron Sucrose 100 mg/Sodium Chloride 60 ml @ 240 mls/hr BEDTIME IV 05/02/20 21:00 05/06/20 21:14 05/04/20 20:13 Lorazepam (Ativan) 1 mg Q4H PRN SL Muscle Spasm 05/04/20 08:00 05/11/20 07:59 Metoclopramide HCl (Reglan) 10 mg Q6HR IVP 05/05/20 18:00 06/04/20 17:59 05/05/20 17:54 Metronidazole 100 ml @ 100 mls/hr EVERY 6 HOURS IV 05/04/20 18:00 05/11/20 18:00 05/05/20 17:53 Miscellaneous Medication (PAPER CONSERVATOR Rate Change) 1 ea DAILY PRN MISC rate change 05/05/20 08:00 05/07/20 07:59 Miscellaneous Medication (PAPER CONSERVATOR shift volume) 1 ea Q12HR@0700,1900 MISC 05/05/20 19:00 05/07/20 18:59 05/05/20 19:19 Naloxone HCl (Narcan) 0.1 mg Q1M PRN IVP RR<10/min OR SBP<90 mmHg 05/05/20 07:58 05/07/20 07:56 Ondansetron HCl (Zofran) 4 mg Q4H PRN IVP Nausea & Vomiting 04/29/20 15:45 05/29/20 15:44 05/05/20 09:29 Pantoprazole (Protonix) 40 mg DAILY IVP 04/30/20 09:00 05/30/20 08:59 05/05/20 09:30 Patient Own Medication (Patient's Own Med) 1 ea QHS ORAL 04/26/20 21:00 05/26/20 20:59 05/04/20 20:33 Trazodone HCl (Desyrel) 300 mg BEDTIME ORAL 04/27/20 21:00 05/27/20 20:59 05/04/20 20:31 Vancomycin HCl (Vanco pharmacy to dose) 1 ea DAILY PRN MISC Per rx protocol 05/04/20 13:15 06/03/20 13:14 Vancomycin HCl 750 mg/Sodium Chloride 275 ml @ 183.333 mls/hr Q12HR@0300,1500 IVPB 05/04/20 15:00 05/09/20 14:59 05/05/20 15:10 Osmin Bermudez MD May 05, 2020 20:09
--- NOTE | 2020-05-05 20:13 | Infectious Diseases Prog Note ---
Assessment/Plan Assessment/Plan Full consult dictated: A) 1) sbo, intra-abdominal abscess - culture with klebsiella and enterococcus 2) s/p surgery 3) pmh noted 4) allergies - adhesive tape 5) thrombocytopenia - ? secondary to cefepime P) 1) vancomycin, cefepime and flagyl - change cefepime to ciprofloxacin secondary to thrombocytopenia 2) communicated with Dr. Maedows 3) monitor clinically and labs 4) will f/u 5) d/w pharmacy Subjective Constitutional: Reports: fever HEENT: Denies: congestion Respiratory: Denies: shortness of breath Cardiovascular: Denies: chest pain Gastrointestinal/Abdominal: Denies: nausea, vomiting, diarrhea Genitourinary: Reports: other - + decker Allergies: Coded Allergies: ADHESIVE TAPE (Verified Adverse Reaction, Intermediate, Rash, 08/27/19) CLEAR TAPE Objective Last 24 Hour Vital Signs Date Time Temp Pulse Resp B/P (MAP) Pulse Ox O2 Delivery O2 Flow Rate FiO2 05/05/20 19:57 97 Room Air 21 05/05/20 16:00 99.0 90 16 128/68 (88) 97 05/05/20 16:00 16 05/05/20 12:15 16 05/05/20 12:00 99.1 103 16 132/76 (94) 94 05/05/20 09:00 Room Air 05/05/20 08:00 99.5 100 16 138/80 (99) 94 05/05/20 08:00 16 05/05/20 07:49 96 Room Air 21 05/05/20 04:00 95 16 93 05/05/20 04:00 98.4 95 18 140/70 (93) 93 05/05/20 00:00 97.4 88 16 113/52 (72) 94 05/05/20 00:00 89 16 94 05/04/20 22:53 99.0 05/04/20 21:00 Room Air 05/04/20 21:00 99.0 05/04/20 20:16 96 Room Air 21 Height (Feet): 5 Height (Inches): 3.00 Weight (Pounds): 140 General Appearance: no acute distress HEENT: normocephalic, atraumatic, anicteric Respiratory/Chest: lungs clear, normal breath sounds, no respiratory distress, no accessory muscle use Cardiovascular: normal rate, regular rhythm, no gallop/murmur Abdomen: normal bowel sounds, soft, non tender, no organomegaly, non distended Genitourinary: other - + decker Laboratory Tests Test 05/05/20 00:08 05/05/20 04:40 05/05/20 05:20 05/05/20 08:35 POC Whole Blood Glucose Pending 134 MG/DL (74-106) H White Blood Count 11.7 K/UL (4.8-10.8) H Red Blood Count 3.46 M/UL (4.20-5.40) L Hemoglobin 11.1 G/DL (12.0-16.0) L Hematocrit 34.3 % (37.0-47.0) L Mean Corpuscular Volume 99 FL (80-99) Mean Corpuscular Hemoglobin 32.0 PG (27.0-31.0) H Mean Corpuscular Hemoglobin Concent 32.3 G/DL (32.0-36.0) Red Cell Distribution Width 12.5 % (11.6-14.8) Platelet Count 53 K/UL (150-450) #L Mean Platelet Volume 9.6 FL (6.5-10.1) Neutrophils (%) (Auto) % (45.0-75.0) Lymphocytes (%) (Auto) % (20.0-45.0) Monocytes (%) (Auto) % (1.0-10.0) Eosinophils (%) (Auto) % (0.0-3.0) Basophils (%) (Auto) % (0.0-2.0) Sodium Level 143 MMOL/L (136-145) Potassium Level 4.6 MMOL/L (3.5-5.1) Chloride Level 106 MMOL/L (98-107) Carbon Dioxide Level 32 MMOL/L (21-32) Anion Gap 5 mmol/L (5-15) Blood Urea Nitrogen 12 mg/dL (7-18) Creatinine 0.9 MG/DL (0.55-1.30) Estimat Glomerular Filtration Rate > 60 mL/min (>60) Glucose Level 134 MG/DL (74-106) H Calcium Level 8.0 MG/DL (8.5-10.1) L Phosphorus Level 3.3 MG/DL (2.5-4.9) Magnesium Level 2.0 MG/DL (1.8-2.4) Total Bilirubin 0.5 MG/DL (0.2-1.0) Aspartate Amino Transf (AST/SGOT) 16 U/L (15-37) Alanine Aminotransferase (ALT/SGPT) 6 U/L (12-78) L Alkaline Phosphatase 136 U/L (46-116) H Total Protein 5.7 G/DL (6.4-8.2) L Albumin 1.8 G/DL (3.4-5.0) L Globulin 3.9 g/dL Albumin/Globulin Ratio 0.5 (1.0-2.7) L Urine Color Pale yellow Urine Appearance Clear Urine pH 8 (4.5-8.0) Urine Specific [place] 1.010 (1.005-1.035) Urine Protein Negative (NEGATIVE) Urine Glucose (UA) Negative (NEGATIVE) Urine Ketones Negative (NEGATIVE) Urine Blood 1+ (NEGATIVE) H Urine Nitrite Negative (NEGATIVE) Urine Bilirubin Negative (NEGATIVE) Urine Urobilinogen Normal MG/DL (0.0-1.0) Urine Leukocyte Esterase 1+ (NEGATIVE) H Urine RBC 0-2 /HPF (0 - 2) Urine WBC 0-2 /HPF (0 - 2) Urine Squamous Epithelial Cells Occasional /LPF Urine Bacteria Occasional /HPF (NONE) Test 05/05/20 12:04 05/05/20 18:07 POC Whole Blood Glucose 101 MG/DL (74-106) 123 MG/DL (74-106) H Current Medications Medications (Trade) Dose Ordered Sig/Jori Route PRN Reason Start Time Stop Time Status Last Admin Dose Admin Acetaminophen (Tylenol) 1,000 mg Q4H PRN GT temp>100.2 or headache 04/29/20 15:45 05/29/20 15:44 05/04/20 22:23 Barium Sulfate (Readi-Cat 2) 450 ml NOW PRN ORAL Radiology Procedure 05/05/20 08:00 05/07/20 08:00 Bupropion HCl (Wellbutrin SR) 200 mg TWICE A DAY ORAL 04/26/20 21:00 05/26/20 20:59 05/05/20 17:52 Chlorhexidine Gluconate (Kathryn-Hex 2%) 1 applic DAILY@1999 TOPIC 04/27/20 20:00 07/26/20 19:59 05/04/20 20:13 Citalopram Hydrobromide (CeleXA) 20 mg DAILY ORAL 04/26/20 21:00 05/27/20 08:59 05/05/20 09:30 Dextrose 1,000 ml @ 0 mls/hr Q24H PRN IV PN interrupted or unavailable 04/28/20 08:30 05/28/20 08:29 Dextrose (Dextrose 50%) 25 ml Q30M PRN IV Hypoglycemia 04/28/20 08:30 07/27/20 08:29 Dextrose (Dextrose 50%) 50 ml Q30M PRN IV Hypoglycemia 04/28/20 08:30 07/27/20 08:29 Dextrose/ Electrolytes 1,000 ml @ 40 mls/hr Q24H IV 05/02/20 10:00 05/28/20 09:59 05/05/20 04:01 Diphenhydramine HCl (Benadryl) 50 mg Q4H PRN IVP Itching/Pruritis 05/05/20 08:00 05/07/20 07:59 Fat Emulsion Intravenous 216 ml/Amino Acids/ Electrolytes/ Dextrose 1,896 ml @ 79 mls/hr Q24H IV 04/28/20 21:00 07/27/20 20:59 05/04/20 20:16 Folic Acid (Folate) 1 mg DAILY ORAL 04/27/20 10:30 05/27/20 10:29 05/05/20 09:29 Hydromorphone HCl 30 ml @ 0 mls/hr FURNACE FEEDER protocol PRN IV For Pain 05/04/20 08:45 05/06/20 08:44 05/05/20 15:12 Hydromorphone HCl (Dilaudid) 1 mg Q3H PRN SUBQ Breakthrough Pain 05/05/20 12:00 05/12/20 11:59 05/05/20 17:52 Insulin Aspart (NovoLOG) Q6HR SUBQ 04/29/20 00:00 07/28/20 00:00 04/30/20 00:18 Iohexol (OMNIPAQUE-300 100ml) 100 ml NOW PRN INJ Radiology Procedure 05/05/20 08:00 05/07/20 08:00 Iron Sucrose 100 mg/Sodium Chloride 60 ml @ 240 mls/hr BEDTIME IV 05/02/20 21:00 05/06/20 21:14 05/04/20 20:13 Lorazepam (Ativan) 1 mg Q4H PRN SL Muscle Spasm 05/04/20 08:00 05/11/20 07:59 Metoclopramide HCl (Reglan) 10 mg Q6HR IVP 05/05/20 18:00 06/04/20 17:59 05/05/20 17:54 Metronidazole 100 ml @ 100 mls/hr EVERY 6 HOURS IV 05/04/20 18:00 05/11/20 18:00 05/05/20 17:53 Miscellaneous Medication (FURNACE FEEDER Rate Change) 1 ea DAILY PRN MISC rate change 05/05/20 08:00 05/07/20 07:59 Miscellaneous Medication (FURNACE FEEDER shift volume) 1 ea Q12HR@0700,1900 MISC 05/05/20 19:00 05/07/20 18:59 05/05/20 19:19 Naloxone HCl (Narcan) 0.1 mg Q1M PRN IVP RR<10/min OR SBP<90 mmHg 05/05/20 07:58 05/07/20 07:56 Ondansetron HCl (Zofran) 4 mg Q4H PRN IVP Nausea & Vomiting 04/29/20 15:45 05/29/20 15:44 05/05/20 09:29 Pantoprazole (Protonix) 40 mg DAILY IVP 04/30/20 09:00 05/30/20 08:59 05/05/20 09:30 Patient Own Medication (Patient's Own Med) 1 ea QHS ORAL 04/26/20 21:00 05/26/20 20:59 05/04/20 20:33 Trazodone HCl (Desyrel) 300 mg BEDTIME ORAL 04/27/20 21:00 05/27/20 20:59 05/04/20 20:31 Vancomycin HCl (Vanco pharmacy to dose) 1 ea DAILY PRN MISC Per rx protocol 05/04/20 13:15 06/03/20 13:14 Vancomycin HCl 750 mg/Sodium Chloride 275 ml @ 183.333 mls/hr Q12HR@0300,1500 IVPB 05/04/20 15:00 05/09/20 14:59 05/05/20 15:10 Osmin Bermudez MD May 05, 2020 20:13
[2020-05-05] MEDS: Dyna-Hex 2% Top Sol 2oz TOPIC SCH (20:27)
[2020-05-05] MEDS: MYRBETRIQ 50 MG ORAL SCH (20:28)
[2020-05-05] MEDS: Iron Sucrose 100 MG in NS 55 ML IV SCH (20:28)
[2020-05-05] MEDS: TraZODone 100mg tab ORAL SCH (20:29)
[2020-05-05] MEDS: Fat Emulsion Iv 20% 216 ML in Tpn 1,680 ML IV SCH (20:32)
[2020-05-06] VITALS: BP_SYST 132; BP_SYST 62; BP_DIAS 62; BP_DIAS 72
[2020-05-06] MEDS: Metoclopramide 10mg/2ml Inj IVP SCH ×4 (00:39→17:39)
[2020-05-06] MEDS: HYDROmorphone 1mg/ml Carpuject SUBQ PRN ×5 (01:24→21:06)
[2020-05-06] MEDS: Vancomycin 750 MG in NS 275 ML IVPB SCH ×3 (04:20→18:03)
[2020-05-06 05:31] LABS: HEMATOCRIT 33.3 % (37.0-47.0); HEMOGLOBIN 10.8 G/DL (12.0-16.0); MEAN CORPUSCULAR VOLUME 99 FL (80-99); PLATELET COUNT 29 K/UL (150-450); RED BLOOD COUNT 3.38 M/UL (4.20-5.40); RED CELL DISTRIBUTION WIDTH 12.7 % (11.6-14.8); WHITE BLOOD COUNT 11.6 K/UL (4.8-10.8)
[2020-05-06] MEDS: NovoLOG Insulin Flexpen SUBQ SCH ×4 (06:00→17:40)
[2020-05-06 06:04] LABS: ALANINE AMINOTRANSFERASE < 6 U/L (12-78); ALBUMIN 1.7 G/DL (3.4-5.0); ALBUMIN/GLOBULIN RATIO 0.4 (1.0-2.7); ALKALINE PHOSPHATASE 146 U/L (46-116); ANION GAP 6 mmol/L (5-15); ASPARTATE AMINO TRANSFERASE 15 U/L (15-37); BILIRUBIN,TOTAL 0.5 MG/DL (0.2-1.0); BLOOD UREA NITROGEN 13 mg/dL (7-18); CALCIUM 7.9 MG/DL (8.5-10.1); CARBON DIOXIDE 30 MMOL/L (21-32); CHLORIDE 104 MMOL/L (98-107); CREATININE 0.8 MG/DL (0.55-1.30); POTASSIUM 4.2 MMOL/L (3.5-5.1); SODIUM 140 MMOL/L (136-145)
[2020-05-06] MEDS: PCA shift volume MISC SCH ×2 (07:00→19:00)
[2020-05-06 08:00] VITALS: BP 117/72
[2020-05-06] MEDS: Pantoprazole Inj IVP SCH (08:12)
[2020-05-06] MEDS: BuPROPion SR 100mg tab ORAL SCH ×2 (08:13→17:39)
[2020-05-06] MEDS: Citalopram Hydrobromide 10mg Tab ORAL SCH (08:13)
[2020-05-06] MEDS ORDERED: PCA HYDROmorphone 1mg/ml 30 ML IV PRN ×2 (08:30→11:15)
[2020-05-06] MEDS: D5 1/2NS w/KCl 20mEq 1,000 ML IV SCH ×2 (10:00→16:23)
[2020-05-06] MEDS ORDERED: Rate Change PCA 1 Each MISC PRN (11:15)
[2020-05-06] MEDS ORDERED: Naloxone 0.4mg/ml Inj IVP PRN (11:15)
[2020-05-06] MEDS ORDERED: DiphenhydrAMINE 50mg/ml Inj IVP PRN (11:15)
[2020-05-06 12:00] VITALS: BP 116/98
--- NOTE | 2020-05-06 14:35 | General Progress Note ---
Progress Note Progress Note AVSS Continued intermittent abdominal pain, no further emesis with gastrostomy to suction, some nausea despite Reglan 10mg IV q6h Abdomen mildly distended, soft, scant tenderness, incision clean, stoma stable Urine 4275 Gastrostomy 795 bilious Kock pouch ileo - nil CT: minimal gastric emptying of contrast, dilated proximal small bowel loops, Kock pouch catheter in good position, distended gallbladder and ? CBD stone WBC 11,600 Hgb 10.8 Platelets down again 27,000 was low pre-op 113,000 - Cefepime d/c'd yesterday by ID due to low platelets Cr 0.8 albumin [address] Pope no evidence pneumonitis Imp: Ileus vs. early post-op SBO post-op small bowel resection, evacuate small ( 1-2cc) abdominal abscess Dilated Gallbladder + ?? CBD stone (LFTs ok) Thrombocytopenia - present pre-op, now worsening Malnutrition - present pre-op Plan: continue NPO, TPN, Busch, gastrostomy to suction, Kock pouch catheter to drainage Hematology Consultation - Dr. Cecilio Grey will see patient STAT Ultrasound of RUQ - may need MRCP f/u labs Lalo Meadows MD May 06, 2020 14:35
--- NOTE | 2020-05-06 14:54 | Infectious Diseases Prog Note ---
Assessment/Plan Assessment/Plan A) 1) sbo, intra-abdominal abscess - culture with klebsiella and enterococcus, ? cholecystitis, ? pna on chest x-ray 2) s/p surgery 3) pmh noted 4) allergies - adhesive tape 5) thrombocytopenia - ? secondary to cefepime P) 1) vancomycin, ciprofloxacin and flagyl 2) f/u on us, labs and chest x-ray 3) monitor clinically and labs 4) will f/u 5) d/w Dr. Meadows 6) hem/onc eval. Subjective Constitutional: Denies: fever HEENT: Denies: congestion Respiratory: Denies: shortness of breath Cardiovascular: Denies: chest pain Gastrointestinal/Abdominal: Reports: other - some abdominal discomfort; Denies : nausea, vomiting Neurologic: Denies: headache Psychiatric: Denies: depression Allergies: Coded Allergies: ADHESIVE TAPE (Verified Adverse Reaction, Intermediate, Rash, 08/27/19) CLEAR TAPE Objective Last 24 Hour Vital Signs Date Time Temp Pulse Resp B/P (MAP) Pulse Ox O2 Delivery O2 Flow Rate FiO2 05/06/20 12:00 98.9 89 18 116/98 (104) 93 05/06/20 12:00 18 05/06/20 09:00 Room Air 05/06/20 08:00 16 05/06/20 08:00 99.0 90 18 117/72 (87) 93 05/06/20 04:00 16 05/06/20 00:00 99.0 88 17 62/62 (62) 92 05/06/20 00:00 17 05/05/20 21:00 Room Air 05/05/20 20:00 16 05/05/20 20:00 98.6 89 16 121/72 (88) 97 05/05/20 19:57 97 Room Air 21 05/05/20 16:00 99.0 90 16 128/68 (88) 97 05/05/20 16:00 16 Height (Feet): 5 Height (Inches): 3.00 Weight (Pounds): 139 General Appearance: no acute distress HEENT: normocephalic, atraumatic Respiratory/Chest: lungs clear, normal breath sounds, no respiratory distress Cardiovascular: normal rate, regular rhythm Abdomen: normal bowel sounds, soft, non tender, other - some pain, no rebound Microbiology Date/Time Source Procedure Growth Status 05/05/20 08:35 Indwelling Cath Urine Culture - Preliminary NO GROWTH Resulted Laboratory Tests Test 05/05/20 18:07 05/06/20 01:14 05/06/20 02:06 05/06/20 04:50 POC Whole Blood Glucose 123 MG/DL (74-106) H 115 MG/DL (74-106) H Vancomycin Level Trough 7.4 ug/mL (5.0-12.0) White Blood Count 11.6 K/UL (4.8-10.8) H Red Blood Count 3.38 M/UL (4.20-5.40) L Hemoglobin 10.8 G/DL (12.0-16.0) L Hematocrit 33.3 % (37.0-47.0) L Mean Corpuscular Volume 99 FL (80-99) Mean Corpuscular Hemoglobin 31.9 PG (27.0-31.0) H Mean Corpuscular Hemoglobin Concent 32.3 G/DL (32.0-36.0) Red Cell Distribution Width 12.7 % (11.6-14.8) Platelet Count 29 K/UL (150-450) L Mean Platelet Volume 13.2 FL (6.5-10.1) H Neutrophils (%) (Auto) % (45.0-75.0) Lymphocytes (%) (Auto) % (20.0-45.0) Monocytes (%) (Auto) % (1.0-10.0) Eosinophils (%) (Auto) % (0.0-3.0) Basophils (%) (Auto) % (0.0-2.0) Differential Total Cells Counted 100 Neutrophils % (Manual) 91 % (45-75) H Lymphocytes % (Manual) 4 % (20-45) L Monocytes % (Manual) 5 % (1-10) Eosinophils % (Manual) 0 % (0-3) Basophils % (Manual) 0 % (0-2) Band Neutrophils 0 % (0-8) Platelet Estimate Decreased L Platelet Morphology Normal Polychromasia 1+ Hypochromasia 1+ Sodium Level 140 MMOL/L (136-145) Potassium Level 4.2 MMOL/L (3.5-5.1) Chloride Level 104 MMOL/L (98-107) Carbon Dioxide Level 30 MMOL/L (21-32) Anion Gap 6 mmol/L (5-15) Blood Urea Nitrogen 13 mg/dL (7-18) Creatinine 0.8 MG/DL (0.55-1.30) Estimat Glomerular Filtration Rate > 60 mL/min (>60) Glucose Level 99 MG/DL (74-106) Calcium Level 7.9 MG/DL (8.5-10.1) L Total Bilirubin 0.5 MG/DL (0.2-1.0) Aspartate Amino Transf (AST/SGOT) 15 U/L (15-37) Alanine Aminotransferase (ALT/SGPT) < 6 U/L (12-78) L Alkaline Phosphatase 146 U/L (46-116) H Total Protein 5.9 G/DL (6.4-8.2) L Albumin 1.7 G/DL (3.4-5.0) L Globulin 4.2 g/dL Albumin/Globulin Ratio 0.4 (1.0-2.7) L Test 05/06/20 06:23 05/06/20 11:19 POC Whole Blood Glucose Pending 78 MG/DL (74-106) Current Medications Medications (Trade) Dose Ordered Sig/Jori Route PRN Reason Start Time Stop Time Status Last Admin Dose Admin Acetaminophen (Tylenol) 1,000 mg Q4H PRN GT temp>100.2 or headache 04/29/20 15:45 05/29/20 15:44 05/04/20 22:23 Barium Sulfate (Readi-Cat 2) 450 ml NOW PRN ORAL Radiology Procedure 05/05/20 08:00 05/07/20 08:00 Bupropion HCl (Wellbutrin SR) 200 mg TWICE A DAY ORAL 04/26/20 21:00 05/26/20 20:59 05/06/20 08:13 Chlorhexidine Gluconate (Kathryn-Hex 2%) 1 applic DAILY@2000 TOPIC 04/27/20 20:00 07/26/20 19:59 05/05/20 20:27 Ciprofloxacin 200 ml @ 200 mls/hr Q12HR IV 05/05/20 22:00 05/12/20 21:59 05/06/20 08:14 Citalopram Hydrobromide (CeleXA) 20 mg DAILY ORAL 04/26/20 21:00 05/27/20 08:59 05/06/20 08:13 Dextrose 1,000 ml @ 0 mls/hr Q24H PRN IV PN interrupted or unavailable 04/28/20 08:30 05/28/20 08:29 Dextrose (Dextrose 50%) 25 ml Q30M PRN IV Hypoglycemia 04/28/20 08:30 07/27/20 08:29 Dextrose (Dextrose 50%) 50 ml Q30M PRN IV Hypoglycemia 04/28/20 08:30 07/27/20 08:29 Dextrose/ Electrolytes 1,000 ml @ 40 mls/hr Q24H IV 05/02/20 10:00 05/28/20 09:59 05/05/20 04:01 Diphenhydramine HCl (Benadryl) 50 mg Q4H PRN IVP Itching/Pruritis 05/06/20 11:15 06/05/20 11:14 Fat Emulsion Intravenous 216 ml/Amino Acids/ Electrolytes/ Dextrose 1,896 ml @ 79 mls/hr Q24H IV 04/28/20 21:00 07/27/20 20:59 05/05/20 20:32 Folic Acid (Folate) 1 mg DAILY ORAL 04/27/20 10:30 05/27/20 10:29 05/06/20 08:13 Hydromorphone HCl 30 ml @ 0 mls/hr RETAIL SOLAR ADVISOR protocol PRN IV For Pain 05/06/20 11:15 05/08/20 11:14 Hydromorphone HCl (Dilaudid) 1 mg Q3H PRN SUBQ Breakthrough Pain 05/05/20 12:00 05/12/20 11:59 05/06/20 10:09 Insulin Aspart (NovoLOG) Q6HR SUBQ 04/29/20 00:00 07/28/20 00:00 04/30/20 00:18 Iohexol (OMNIPAQUE-300 100ml) 100 ml NOW PRN INJ Radiology Procedure 05/05/20 08:00 05/07/20 08:00 Iron Sucrose 100 mg/Sodium Chloride 60 ml @ 240 mls/hr BEDTIME IV 05/02/20 21:00 05/06/20 21:14 05/05/20 20:28 Lorazepam (Ativan) 1 mg Q4H PRN SL Muscle Spasm 05/04/20 08:00 05/11/20 07:59 Metoclopramide HCl (Reglan) 10 mg Q6HR IVP 05/05/20 18:00 06/04/20 17:59 05/06/20 11:20 Metronidazole 100 ml @ 100 mls/hr EVERY 6 HOURS IV 05/04/20 18:00 05/11/20 18:00 05/06/20 11:20 Miscellaneous Medication (RETAIL SOLAR ADVISOR Rate Change) 1 ea DAILY PRN MISC rate change 05/06/20 11:15 05/08/20 11:14 Miscellaneous Medication (RETAIL SOLAR ADVISOR shift volume) 1 ea Q12HR@0700,1900 MISC 05/06/20 19:00 05/08/20 18:59 Naloxone HCl (Narcan) 0.1 mg Q1M PRN IVP RR<10/min OR SBP<90 mmHg 05/06/20 11:15 08/04/20 11:14 Ondansetron HCl (Zofran) 4 mg Q4H PRN IVP Nausea & Vomiting 04/29/20 15:45 05/29/20 15:44 05/05/20 09:29 Pantoprazole (Protonix) 40 mg DAILY IVP 04/30/20 09:00 05/30/20 08:59 05/06/20 08:12 Patient Own Medication (Patient's Own Med) 1 ea QHS ORAL 04/26/20 21:00 05/26/20 20:59 05/05/20 20:28 Trazodone HCl (Desyrel) 300 mg BEDTIME ORAL 04/27/20 21:00 05/27/20 20:59 05/05/20 20:29 Vancomycin HCl (Vanco pharmacy to dose) 1 ea DAILY PRN MISC Per rx protocol 05/04/20 13:15 06/03/20 13:14 Vancomycin HCl 750 mg/Sodium Chloride 275 ml @ 183.333 mls/hr 0300,1100,1900 IVPB 05/06/20 03:30 05/11/20 03:29 05/06/20 10:09 Osmin Bermudez MD May 06, 2020 14:54
[2020-05-06 16:00] VITALS: BP 138/78
--- NOTE | 2020-05-06 16:37 | Diagnostic Imaging Report ---
Indication: Abdominal pain Technique: Chi-scale and duplex images of the upper abdomen were obtained Comparison: No comparison sonograms. Reference made to CT abdomen pelvis 05/05/2020 Findings: Gallbladder is distended. No gallstones are evident. Gallbladder wall is borderline thickened, measuring just over 3.3 mm thick Sonographic Davidson's sign is negative. Common bile duct measures 8 mm in diameter. No intrahepatic biliary ductal dilatation. Liver demonstrates normal echogenicity, no focal abnormality. Portal vein and hepatic veins are patent. Pancreas is unremarkable. Spleen is unremarkable. Left kidney measures 11 cm in length. Right kidney measures 10.4 cm length. Both kidneys demonstrate normal echogenicity. There is no hydronephrosis. No focal abnormality . Abdominal aorta is partially obscured by bowel gas, visualized portions are non-aneurysmal . There are bilateral pleural effusions Impression: Distended gallbladder with borderline wall thickening, but no gallstones. Significance uncertain. Mildly dilated common bile duct. May be age-related, downstream obstruction not completely excludable particularly in view of findings reported on recent CT scan. Correlate with liver function tests, consider MRCP for further evaluation if clinically indicated Note inability to visualize portions of the abdominal aorta
[2020-05-06 20:00] VITALS: BP 129/81
--- NOTE | 2020-05-06 20:29 | Consultation ---
DATE OF CONSULTATION: 05/06/2020 PULMONARY CONSULTATION CONSULTING PHYSICIAN: Shree Pope MD. HISTORY OF PRESENT ILLNESS: This is a 69-year-old female admitted to the hospital about 10 days ago with abdominal issues relating to her Brantley pouch. She previously had laparotomy for SBO. 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 She has been seen by Infectious Disease specialist and has been started on broad-spectrum antibiotics. Currently, she remains on vancomycin, cefepime, and Flagyl; however, this has been changed to Cipro due to thrombocytopenia. I have been asked to consult given her abnormal x-ray findings of a patchy right lung infiltrate as well as recent fever documented in the last 24 hours, 99.1 and 99.0 yesterday and this morning, T-max was 99, and she is comfortable. There is a brief reading of 62 systolic blood pressure, but currently blood pressure is 110/70. She states she is feeling well. She reports a postnasal drip and sinus issues, but denies any cough or shortness of breath. On my personal review of chest x-ray, it shows what I initially thought reflected Zita B-lines; however, given negative fluid status and loss of weight, I doubt if she is fluid overloaded. Clinically also, she does not appear to be fluid overloaded. PAST MEDICAL HISTORY: Notable for ulcerative colitis, GERD, previous abdominal surgeries, depression, chronic pain, and hyperlipidemia. HOME MEDICATIONS: Wellbutrin, Soma, Celebrex, Celexa, Lipitor, Atrovent, Myrbetriq, nortriptyline, [place], and Protonix. PREVIOUS SURGERIES: Include spine surgery, carpal tunnel release, cataract surgery, kidney stones, and resection of parathyroid adenoma. REVIEW OF SYSTEMS: Denies any headaches, hematemesis, melena, hematochezia, night sweats, or weight loss. PHYSICAL EXAMINATION: GENERAL: Reveals a 69-year-old female. HEENT: Unremarkable. CHEST: Clear breath sounds bilaterally with normal heart sounds. ABDOMEN: Soft with mild distention. Recent surgical scars are noted. LABORATORY DATA: Lab testing shows negative urinalysis. Normal CBC and BMP with mild elevation of white count of 11.6. Coags are negative. Urinalysis is negative. X-ray as discussed above. IMPRESSION: 1. Atelectasis, right lung. 2. Postnasal drip/allergic rhinitis. 3. Status post laparotomy and lysis of adhesions. 4. Chronic pain. 5. Ulcerative colitis. DISCUSSION: The patient is on broad-spectrum antibiotics for intraabdominal abscess. I concur with their use at this time. Her respiratory status is stable. I have encouraged her on incentive use of spirometry and also advised correct technique. We will keep on following. At this time, no further interventions required. We will follow. Shree Pope M.D. DR: Krystal JOB#: [id number] CC:
--- NOTE | 2020-05-06 21:00 | Consultation ---
DATE OF CONSULTATION: 05/05/2020 INFECTIOUS DISEASE CONSULTATION CONSULTING PHYSICIAN: Osmin Bermudez M.D. ATTENDING PHYSICIAN: Lalo Meadows M.D. REFERRING PHYSICIAN: Lalo Meadows M.D. REASON FOR CONSULTATION: Klebsiella and Enterococcus intra-abdominal abscess, perioperative antibiotics, leukocytosis, and fevers. CHIEF COMPLAINT: The patient's chief complaint coming into the hospital or reason for admission was malfunction of Kock pouch ileostomy. HISTORY OF PRESENT ILLNESS: This is a very pleasant 69-year-old female who presents to [facility] because of inability to intubate or catheterize her Kock pouch continent ileostomy to evacuate stools. The patient was admitted by Dr. Lalo Meadows and was also noted that she had a small bowel obstruction. The patient had surgery and this was on April 29, 2020. The patient because of a high grade bowel obstruction, she had surgery and also because of malfunctioning Kock pouch continent ileostomy. The patient had a laparotomy with the release of bowel obstruction and adhesions and the patient had also a small intra-abdominal abscess and also testing of Kock pouch continent ileostomy. Postoperatively, the patient had mild leukocytosis and a fever of 101.4. The patient's cultures had Klebsiella. This is the intra-abdominal abscess Klebsiella and Enterococcus. Infectious Disease consultation was requested. The patient was initially on vancomycin, cefepime, and Flagyl because of the Enterococcus and Klebsiella intraabdominal abscess. The patient's platelet count was low and in discussion with pharmacy, the most likely culprit would be the cefepime or a beta-lactam antibiotic. Antibiotics were changed to vancomycin, Cipro, and Flagyl. Of note, the Klebsiella was sensitive to Levaquin, which suggests sensitive to Cipro. The patient's case was discussed with Dr. Meadows. Again Infectious Disease consultation was requested because of perioperative antibiotics and also the management of the intra-abdominal abscess status post debridement of the abscess. Of note, the imaging was noted and reviewed. REVIEW OF SYSTEMS: CONSTITUTIONAL: The patient has generalized fatigue, but no focal weakness. She is alert and responsive. As discussed, she had a temperature maximum of 101.4, but currently when I saw was essentially afebrile except for a temperature of maybe 99.5 earlier. She has no fever, chills, night sweats. HEAD AND NECK: No head pain, neck pain, thrush, dysphagia, neck stiffness, or headache. CARDIAC: No chest pain or palpitations. GASTROINTESTINAL: She has postoperative valve abdominal pain. Currently, no nausea, vomiting, or diarrhea. GENITOURINARY: No CVA tenderness. PULMONARY: No congestion, shortness of breath, hemoptysis, or secretions. SKIN: No rash or itching. EXTREMITY: No extremity pain. NEUROLOGIC: No seizures. Generalized fatigue. No focal weakness. PAST MEDICAL HISTORY: The patient's past medical history includes the following. The patient has a past medical history of Kock pouch continent ileostomy. She has a history of multiple abdominal surgeries. She also has a past medical history of ulcerative colitis, history of spine surgery, history of parathyroid adenoma, history of proctocolectomy and laparotomy. No history of diabetes or hypertension. ALLERGIES: Include adhesive tape. SOCIAL HISTORY: Negative for smoking, alcohol, or drug abuse. FAMILY HISTORY: Noncontributory. There is no mention of family history of tuberculosis or cancer. MEDICATIONS: Upon reviewing the MAR, she is on the following medications. She is on hydromorphone. She is on naloxone. She was on vancomycin, cefepime, and Flagyl. I changed the cefepime to Cipro. She is on diphenhydramine, metoclopramide (Reglan), hydromorphone (Dilaudid), barium sulfate, lorazepam, intravenous fluids, acetaminophen, pantoprazole, Zofran as needed, insulin as needed, chlorhexidine gluconate, trazodone, bupropion (Wellbutrin), and Celexa. Outside medications were noted and reconciliated. PHYSICAL EXAMINATION: VITAL SIGNS: Temperature maximum 101.4. Currently vital signs are as follows. Temperature 99, pulse rate 90, respiratory rate 16, blood pressure 120/68, and saturation 97% on room air. GENERAL: Alert and responsive, in no acute distress. She is oriented x3. HEAD AND NECK: Oral exam, no thrush. Eye exam, no icterus. Normocephalic. Neck is supple. No JVD. HEART: Regular. No gallop or murmur. No friction rub. ABDOMEN: Soft. Positive bowel sounds. Nontender. No rebound. LUNGS: Clear bilaterally. No obvious rhonchi or rales. Maybe occasional rhonchi and rales but mostly clear. No respiratory distress. SKIN: No rash or dermatitis. MUSCULOSKELETAL: No effusion. Legs without cellulitis. PERIPHERAL VASCULAR: No gangrene or cyanosis. No septic arthritis. GENITOURINARY: No CVA tenderness. LINE SITES: Without phlebitis. NEUROLOGIC: Intact. Alert and oriented x3. Nonfocal. LABORATORY DATA: Laboratory data is as follows. White count 11.7 and hemoglobin 11.1. Creatinine is 0.9. LFTs noted. Urinalysis 0 to 2 white cells. CULTURES: Urine culture pending. SARS testing or COVID testing negative. Intra-abdominal abscess cultures included Klebsiella pneumoniae, sensitive to Levaquin and cephalosporins and also Enterococcus faecalis sensitive to vancomycin. IMAGING: Initial CT scan of the abdomen and pelvis was reviewed and was consistent with small bowel obstruction. ASSESSMENT AND PLAN: 1. The patient comes in with high-grade bowel obstruction and malfunction Kock pouch continent ileostomy. The patient is status post surgery including release of the bowel obstruction. The patient was noted to have pus in small intra-abdominal abscess. It was growing out Klebsiella pneumoniae and Enterococcus. The patient has a low platelet count and could be secondary to cefepime, which the patient is on. At this time, I will place the patient on vancomycin, Cipro, and Flagyl for gram-positive, Enterococcus, gram-negative, and anaerobic coverage. Continue vancomycin, Cipro, and Flagyl for the Klebsiella, Enterococcus, and intra-abdominal abscess. Continue as perioperative antibiotics. Monitor the patient's platelets off cefepime. Continue management per Dr. Meadows. Monitor leukocytosis and fevers. The patient does not look acutely septic currently. Continue antibiotics, vancomycin, Cipro, and Flagyl. Check laboratories. I believe CT of chest was also ordered today. We will follow up on that. 2. The patient has a history of Kock pouch continent ileostomy. 3. History of ulcerative colitis. 4. History of multiple abdominal surgeries. 5. History of spine surgery. 6. History of parathyroid adenoma. 7. History of proctocolectomy. 8. History of laparotomy. 9. Anemia. 10. Thrombocytopenia. 11. Allergies to adhesive tape. 12. Social history is negative. 13. Family history is noncontributory. 14. MAR is noted. 15. Case was discussed with RN. 16. Continue treatment per Dr. Meadows and consultants. 17. I will follow. Osmin Bermudez M.D. DR: GRABIEL JOB#: [id number] CC: MICHELLE
[2020-05-06] MEDS: Iron Sucrose 100 MG in NS 55 ML IV SCH (21:08)
[2020-05-06] MEDS: Dyna-Hex 2% Top Sol 2oz TOPIC SCH (21:08)
[2020-05-06] MEDS: Fat Emulsion Iv 20% 216 ML in Tpn 1,680 ML IV SCH (21:30)
[2020-05-06] MEDS: MYRBETRIQ 50 MG ORAL SCH (21:31)
[2020-05-06] MEDS: TraZODone 100mg tab ORAL SCH (22:00)
[2020-05-07] VITALS: BP 137/76
[2020-05-07] MEDS: Metoclopramide 10mg/2ml Inj IVP SCH ×5 (01:06→23:46)
[2020-05-07] MEDS: Vancomycin 750 MG in NS 275 ML IVPB SCH ×3 (03:53→21:08)
[2020-05-07 04:00] VITALS: BP 110/60
[2020-05-07 05:25] LABS: HEMATOCRIT 34.2 % (37.0-47.0); HEMOGLOBIN 11.1 G/DL (12.0-16.0); MEAN CORPUSCULAR VOLUME 99 FL (80-99); RED BLOOD COUNT 3.46 M/UL (4.20-5.40); RED CELL DISTRIBUTION WIDTH 12.7 % (11.6-14.8); WHITE BLOOD COUNT 13.4 K/UL (4.8-10.8)
[2020-05-07 05:47] LABS: ALANINE AMINOTRANSFERASE 7 U/L (12-78); ALBUMIN 1.7 G/DL (3.4-5.0); ALBUMIN/GLOBULIN RATIO 0.4 (1.0-2.7); ALKALINE PHOSPHATASE 166 U/L (46-116); ANION GAP 5 mmol/L (5-15); ASPARTATE AMINO TRANSFERASE 14 U/L (15-37); BILIRUBIN,TOTAL 0.5 MG/DL (0.2-1.0); BLOOD UREA NITROGEN 13 mg/dL (7-18); CARBON DIOXIDE 30 MMOL/L (21-32); CHLORIDE 102 MMOL/L (98-107); CREATININE 0.9 MG/DL (0.55-1.30); PLATELET COUNT 8 K/UL (150-450); POTASSIUM 4.6 MMOL/L (3.5-5.1); SODIUM 137 MMOL/L (136-145)
[2020-05-07] MEDS: HYDROmorphone 1mg/ml Carpuject SUBQ PRN (05:49)
[2020-05-07] MEDS: NovoLOG Insulin Flexpen SUBQ SCH ×4 (06:00→18:00)
[2020-05-07] MEDS: PCA shift volume MISC SCH ×2 (07:00→19:00)
[2020-05-07 08:00] VITALS: BP 119/68
[2020-05-07] MEDS ORDERED: Rate Change PCA 1 Each MISC PRN (08:15)
--- NOTE | 2020-05-07 08:23 | General Progress Note ---
Progress Note Progress Note [facility] [place] much better yesterday and ambulated briefly. No N/V. Platelet count 8,000 this AM with some bleeding from Kock pouch ileo catheter Abdomen still mildly distended, soft, non-tender, incision with slight erythema around lu, stoma stable Urine 4125 Gastrostomy 245 bilious no blood Kock pouch ileo only 15cc net output - bloody WBC up 13,400 Hgb stable 11.1 Platelets down 8,000 Mg 1.6 albumin 1.7 US revealed distended gallbladder and ?mild dilated CBD - no stones. LFTs with slightly elevated alk phos (?TPN effect) On Cipro IV, Vancomycin and Flagyl Imp: Infection ? source - has 2cc pus from "chronic" abscess found at surgery Severe thrombocytopenia - per Hematology likely due to Cefepime which was stopped Plan; Transfuse 2 platelet packs STAT continue NPO, TPN, Gastrostomy to suction, Bus[place], Kock pouch catheter to drainage Mg infusion f/u labs May need MRCP or HIDA scan - she denies any RUQ symptoms or pain Lalo Meadows MD May 07, 2020 08:23
[2020-05-07] MEDS ORDERED: PCA HYDROmorphone 1mg/ml 30 ML IV PRN (08:30)
[2020-05-07] MEDS: Pantoprazole Inj IVP SCH (08:33)
[2020-05-07] MEDS: Citalopram Hydrobromide 10mg Tab ORAL SCH (08:34)
[2020-05-07] MEDS: BuPROPion SR 100mg tab ORAL SCH ×2 (08:34→19:18)
--- NOTE | 2020-05-07 09:58 | Consultation ---
History of Present Illness General Chief Complaint: Abdominal Pain Present Illness Allergies: Coded Allergies: ADHESIVE TAPE (Verified Adverse Reaction, Intermediate, Rash, 08/27/19) CLEAR TAPE Medication History Scheduled Aspirin* (Aspirin*), 81 MG ORAL DAILY, (Reported) Atorvastatin Calcium* (Atorvastatin Calcium*), 20 MG ORAL BEDTIME, (Reported) Bupropion Sr* (Wellbutrin Sr*), 200 MG ORAL TWICE A DAY, (Reported) Celecoxib* (Celebrex*), 100 MG ORAL TWICE A DAY, (Reported) Citalopram Hydrobromide* (Celexa*), 40 MG ORAL DAILY, (Reported) Cyanocobalamin (Vitamin B-12) (Liquid B-12), 1,000 MCG SL DAILY, (Reported) Ipratropium Shelby (Ipratropium Shelby), 1 SPR NS FOUR TIMES A DAY, (Reported) Mirabegron (Myrbetriq), 50 MG PO DAILY, (Reported) Pantoprazole* (Protonix*), 40 MG ORAL BEFORE BREAKFAST, (Reported) Trazodone* (Trazodone*), 200 MG ORAL BEDTIME, (Reported) Scheduled PRN Carisoprodol* (Carisoprodol*), 350 MG ORAL BEDTIME PRN for NECK SPASM, (Reported ) Diphenhydramine Hcl* (Benadryl*), 50 MG ORAL HS PRN for Itching, (Reported) Hydrocodone Bit/Acetaminophen 5-325* ([place] 5-325*), 1 TAB ORAL Q6H PRN for For Pain, (Reported) Patient History Healthcare decision maker Resuscitation status Advanced Directive on File Physical Exam Last 24 Hour Vital Signs Date Time Temp Pulse Resp B/P (MAP) Pulse Ox O2 Delivery O2 Flow Rate FiO2 05/07/20 04:00 98.6 103 16 110/60 (77) 93 05/07/20 04:00 16 05/07/20 00:00 16 05/07/20 00:00 98.5 86 16 137/76 (96) 95 05/06/20 21:00 Room Air 05/06/20 20:35 96 Room Air 21 05/06/20 20:00 18 05/06/20 20:00 99.5 106 18 129/81 (97) 95 05/06/20 16:00 18 05/06/20 16:00 97.5 97 18 138/78 (98) 98 05/06/20 12:00 98.9 89 18 116/98 (104) 93 05/06/20 12:00 18 Intake and Output 05/06/20 05/07/20 19:00 07:00 Intake Total 833 ml Output Total 1665 ml 2670 ml Balance -832 ml -2670 ml IV Total 833 ml Output Urine Total 1500 ml 2625 ml Other 165 ml 45 ml Laboratory Tests Test 05/06/20 11:19 05/06/20 17:38 05/07/20 01:18 05/07/20 02:00 POC Whole Blood Glucose 78 MG/DL (74-106) 114 MG/DL (74-106) H 110 MG/DL (74-106) H Vancomycin Level Trough 13.8 ug/mL (5.0-12.0) H Test 05/07/20 04:30 05/07/20 06:10 White Blood Count 13.4 K/UL (4.8-10.8) H Red Blood Count 3.46 M/UL (4.20-5.40) L Hemoglobin 11.1 G/DL (12.0-16.0) L Hematocrit 34.2 % (37.0-47.0) L Mean Corpuscular Volume 99 FL (80-99) Mean Corpuscular Hemoglobin 32.2 PG (27.0-31.0) H Mean Corpuscular Hemoglobin Concent 32.5 G/DL (32.0-36.0) Red Cell Distribution Width 12.7 % (11.6-14.8) Platelet Count 8 K/UL (150-450) #*L Mean Platelet Volume 11.5 FL (6.5-10.1) H Neutrophils (%) (Auto) % (45.0-75.0) Lymphocytes (%) (Auto) % (20.0-45.0) Monocytes (%) (Auto) % (1.0-10.0) Eosinophils (%) (Auto) % (0.0-3.0) Basophils (%) (Auto) % (0.0-2.0) Differential Total Cells Counted 100 Neutrophils % (Manual) 90 % (45-75) H Lymphocytes % (Manual) 5 % (20-45) L Monocytes % (Manual) 4 % (1-10) Eosinophils % (Manual) 0 % (0-3) Basophils % (Manual) 1 % (0-2) Band Neutrophils 0 % (0-8) Platelet Estimate Decreased L Platelet Morphology Normal Hypochromasia 1+ Anisocytosis 1+ Sodium Level 137 MMOL/L (136-145) Potassium Level 4.6 MMOL/L (3.5-5.1) Chloride Level 102 MMOL/L (98-107) Carbon Dioxide Level 30 MMOL/L (21-32) Anion Gap 5 mmol/L (5-15) Blood Urea Nitrogen 13 mg/dL (7-18) Creatinine 0.9 MG/DL (0.55-1.30) Estimat Glomerular Filtration Rate > 60 mL/min (>60) Glucose Level 124 MG/DL (74-106) H Calcium Level 8.0 MG/DL (8.5-10.1) L Phosphorus Level 3.0 MG/DL (2.5-4.9) Magnesium Level 1.6 MG/DL (1.8-2.4) L Total Bilirubin 0.5 MG/DL (0.2-1.0) Aspartate Amino Transf (AST/SGOT) 14 U/L (15-37) L Alanine Aminotransferase (ALT/SGPT) 7 U/L (12-78) L Alkaline Phosphatase 166 U/L (46-116) H Total Protein 6.0 G/DL (6.4-8.2) L Albumin 1.7 G/DL (3.4-5.0) L Globulin 4.3 g/dL Albumin/Globulin Ratio 0.4 (1.0-2.7) L Hepatitis A IgM Antibody Pending Hepatitis B Surface Antigen Pending Hepatitis B Core IgM Antibody Pending Hepatitis C Antibody Pending HIV (1&2) Antibody Rapid Negative (NEGATIVE) POC Whole Blood Glucose Pending Height (Feet): 5 Height (Inches): 3.00 Weight (Pounds): 139 Medications Current Medications Medications (Trade) Dose Ordered Sig/Jori Route PRN Reason Start Time Stop Time Status Last Admin Dose Admin Acetaminophen (Tylenol) 1,000 mg Q4H PRN GT temp>100.2 or headache 04/29/20 15:45 05/29/20 15:44 05/04/20 22:23 Bupropion HCl (Wellbutrin SR) 200 mg TWICE A DAY ORAL 04/26/20 21:00 05/26/20 20:59 05/07/20 08:34 Chlorhexidine Gluconate (Kathryn-Hex 2%) 1 applic DAILY@2000 TOPIC 04/27/20 20:00 07/26/20 19:59 05/06/20 21:08 Ciprofloxacin 200 ml @ 200 mls/hr Q12HR IV 05/05/20 22:00 05/12/20 21:59 05/07/20 08:33 Citalopram Hydrobromide (CeleXA) 20 mg DAILY ORAL 04/26/20 21:00 05/27/20 08:59 05/07/20 08:34 Dextrose 1,000 ml @ 0 mls/hr Q24H PRN IV PN interrupted or unavailable 04/28/20 08:30 05/28/20 08:29 Dextrose (Dextrose 50%) 25 ml Q30M PRN IV Hypoglycemia 04/28/20 08:30 07/27/20 08:29 Dextrose (Dextrose 50%) 50 ml Q30M PRN IV Hypoglycemia 04/28/20 08:30 07/27/20 08:29 Dextrose/ Electrolytes 1,000 ml @ 40 mls/hr Q24H IV 05/02/20 10:00 05/28/20 09:59 05/06/20 16:23 Diphenhydramine HCl (Benadryl) 50 mg Q4H PRN IVP Itching/Pruritis 05/06/20 11:15 06/05/20 11:14 Fat Emulsion Intravenous 216 ml/Amino Acids/ Electrolytes/ Dextrose 1,896 ml @ 79 mls/hr Q24H IV 04/28/20 21:00 07/27/20 20:59 05/06/20 21:30 Folic Acid (Folate) 1 mg DAILY ORAL 04/27/20 10:30 05/27/20 10:29 05/07/20 08:34 Hydromorphone HCl 30 ml @ 0 mls/hr RN CHRONIC protocol PRN IV For Pain 05/07/20 08:30 05/09/20 08:29 Hydromorphone HCl (Dilaudid) 0.3 mg Q4H PRN IVP Severe Breakthru Pain (>7) 05/07/20 08:15 05/14/20 08:14 Insulin Aspart (NovoLOG) Q6HR SUBQ 04/29/20 00:00 07/28/20 00:00 04/30/20 00:18 Lorazepam (Ativan) 1 mg Q4H PRN SL Muscle Spasm 05/04/20 08:00 05/11/20 07:59 Magnesium Sulfate 100 ml @ 100 mls/hr Q1H IVPB 05/07/20 09:00 05/07/20 12:59 05/07/20 08:33 Metoclopramide HCl (Reglan) 10 mg Q6HR IVP 05/05/20 18:00 06/04/20 17:59 05/07/20 05:30 Metronidazole 100 ml @ 100 mls/hr EVERY 6 HOURS IV 05/04/20 18:00 05/11/20 18:00 05/07/20 05:30 Miscellaneous Medication (RN CHRONIC Rate Change) 1 ea DAILY PRN MISC rate change 05/07/20 08:15 05/09/20 08:14 Miscellaneous Medication (RN CHRONIC shift volume) 1 ea Q12HR@0700,1900 MISC 05/07/20 19:00 05/09/20 18:59 Naloxone HCl (Narcan) 0.1 mg Q1M PRN IVP RR<10/min OR SBP<90 mmHg 05/06/20 11:15 08/04/20 11:14 Ondansetron HCl (Zofran) 4 mg Q4H PRN IVP Nausea & Vomiting 04/29/20 15:45 05/29/20 15:44 05/05/20 09:29 Pantoprazole (Protonix) 40 mg DAILY IVP 04/30/20 09:00 05/30/20 08:59 05/07/20 08:33 Patient Own Medication (Patient's Own Med) 1 ea QHS ORAL 04/26/20 21:00 05/26/20 20:59 05/06/20 21:31 Trazodone HCl (Desyrel) 300 mg BEDTIME ORAL 04/27/20 21:00 05/27/20 20:59 05/06/20 22:00 Vancomycin HCl (Vanco pharmacy to dose) 1 ea DAILY PRN MISC Per rx protocol 05/04/20 13:15 06/03/20 13:14 Vancomycin HCl 750 mg/Sodium Chloride 275 ml @ 183.333 mls/hr 0300,1100,1900 IVPB 05/06/20 03:30 05/11/20 03:29 05/07/20 03:53 Assessment/Plan Assessment/Plan: Hematology Consultation REQ : Lalo Meadows RFC: Severe Thrombocytopenia DOS 05/07/2020 ID 69-year-old female who presented after increased lower abdominal pain. Patient had prior history of BCR and had been in a unable to access her stoma. Reports having 8 out of 10 pain to the lower abdomen. Reports having some slight leakage of stool. Denies any fever. Had not been having any vomiting but has been having some nausea. Is s/p surgery for ileopuch [place] surgery, have evaluated labs, noted to have developed a severe thrombocytopenia, will order smear, meds noted, not in dic at this time, labs otherwise stable DW Dr. Meadows in am of 05/07/20 by bedside Coded Allergies: ADHESIVE TAPE (Verified Adverse Reaction, Intermediate, Rash, 08/27/19) CLEAR TAPE COVID-19 Screening Contact w/high risk pt: No Recent Travel to affected area: No Experienced COVID-19 symptoms?: No COVID-19 Testing performed SCRAPER BURRER: No Patient History Past Medical History: see triage record Last Menstrual Period: na Reviewed Nursing Documentation: PMH: Agreed; PSxH: Agreed Review of Systems All Other Systems: negative except mentioned in HPI Physical Exam: Vitals: reviewed General: NAD HEENT: nc, at Neck: supple Chest: clear breath sounds bilaterally Cardiovascular: RRR, no s3, s4 Abdomen: soft, nontender, nd ++gtube, Kouch pouch ++ midline scar site is c/d/i Extremities: no cce, normal range of motion Neuro: alert and oriented Labs: plt 8k! hemoglobin 11.1. Creatinine is 0.9. LFTs noted. Urinalysis 0 to 2 white cells. CULTURES: Urine culture pending. SARS testing or COVID testing negative Intra- abdominal abscess cultures included Klebsiella pneumoniae, sensitiv to Levaquin and cephalosporins and also Enterococcus faecalis sensitive t vancomycin. IMAGING: Initial CT scan of the abdomen and pelvis was reviewed and was consistent with small bowel obstruction. ASSESSMENT AND PLAN: # SEVERE Thrombocytopenia that is severe, on admission, plt was wnl and now dropped to 8K The patient comes in with high-grade bowel obstruction and malfunction Kock pouch continent ileostomy. The patient is status post surgery including release of the bowel obstruction. The patient was noted to have pus in small intra-abdominal abscess. It was growing out Klebsiella pneumoniae and Enterococcus. The patient has a low platele count and could be secondary to cefepime, which the patient is on. --> cefepime has been stopped, likely culprti --> as per ID antibiotics, vancomycin, Cipro, and Flagyl. --> dic panel has been ordered --> peripheral smear has been ordered as well --> hapto and fibrinogen pending --> hold off steriods --> no heparin or lovenox administered recently --> duplex lower ext ordered --> transfuse 2 units plt 05/07 # Anemia likely due to hemoldilution --> likely hemodilutional and chronic disease # The patient has a history of Kock pouch continent ileostomy. # History of ulcerative colitis. # History of multiple abdominal surgeries. # History of spine surgery. # History of parathyroid adenoma. # History of proctocolectomy. # History of laparotomy. The timing of this note does not necessarily reflect the time of the patient was seen. Greatly appreciate consultation. Cecilio Grey MD May 07, 2020 09:58
--- NOTE | 2020-05-07 10:02 | Pulmonology Progress Note ---
Subjective Interval Events: None new Constitutional: Reports: no symptoms, fever HEENT: Repors: no symptoms Respiratory: Reports: no symptoms Cardiovascular: Reports: no symptoms Gastrointestinal/Abdominal: Reports: other - some abdominal discomfort Allergies: Coded Allergies: ADHESIVE TAPE (Verified Adverse Reaction, Intermediate, Rash, 08/27/19) CLEAR TAPE Objective Last 24 Hour Vital Signs Date Time Temp Pulse Resp B/P (MAP) Pulse Ox O2 Delivery O2 Flow Rate FiO2 05/07/20 04:00 98.6 103 16 110/60 (77) 93 05/07/20 04:00 16 05/07/20 00:00 16 05/07/20 00:00 98.5 86 16 137/76 (96) 95 05/06/20 21:00 Room Air 05/06/20 20:35 96 Room Air 21 05/06/20 20:00 18 05/06/20 20:00 99.5 106 18 129/81 (97) 95 05/06/20 16:00 18 05/06/20 16:00 97.5 97 18 138/78 (98) 98 05/06/20 12:00 98.9 89 18 116/98 (104) 93 05/06/20 12:00 18 Intake and Output 05/06/20 05/07/20 19:00 07:00 Intake Total 833 ml Output Total 1665 ml 2670 ml Balance -832 ml -2670 ml IV Total 833 ml Output Urine Total 1500 ml 2625 ml Other 165 ml 45 ml General Appearance: no acute distress HEENT: normocephalic Respiratory: chest wall non-tender, lungs clear Cardiovascular: normal peripheral pulses Abdomen: normal bowel sounds Microbiology Date/Time Source Procedure Growth Status 05/05/20 08:35 Indwelling Cath Urine Culture - Preliminary NO GROWTH AFTER 24 HOURS Resulted Laboratory Tests 05/06/20 11:19: POC Whole Blood Glucose 78 05/06/20 17:38: POC Whole Blood Glucose 114H 05/07/20 01:18: POC Whole Blood Glucose 110H 05/07/20 02:00: Vancomycin Level Trough 13.8H 05/07/20 04:30: White Blood Count 13.4H, Red Blood Count 3.46L, Hemoglobin 11.1L, Hematocrit 34.2L, Mean Corpuscular Volume 99, Mean Corpuscular Hemoglobin 32.2H, Mean Corpuscular Hemoglobin Concent 32.5, Red Cell Distribution Width 12.7, Platelet Count 8#*L, Mean Platelet Volume 11.5H, Neutrophils (%) (Auto) , Lymphocytes (% ) (Auto) , Monocytes (%) (Auto) , Eosinophils (%) (Auto) , Basophils (%) (Auto) , Differential Total Cells Counted 100, Neutrophils % (Manual) 90H, Lymphocytes % (Manual) 5L, Monocytes % (Manual) 4, Eosinophils % (Manual) 0, Basophils % ( Manual) 1, Band Neutrophils 0, Platelet Estimate DecreasedL, Platelet Morphology Normal, Hypochromasia 1+, Anisocytosis 1+, Sodium Level 137, Potassium Level 4.6, Chloride Level 102, Carbon Dioxide Level 30, Anion Gap 5, Blood Urea Nitrogen 13, Creatinine 0.9, Estimat Glomerular Filtration Rate > 60 , Glucose Level 124H, Calcium Level 8.0L, Phosphorus Level 3.0, Magnesium Level 1.6L, Total Bilirubin 0.5, Aspartate Amino Transf (AST/SGOT) 14L, Alanine Aminotransferase (ALT/SGPT) 7L, Alkaline Phosphatase 166H, Total Protein 6.0L, Albumin 1.7L, Globulin 4.3, Albumin/Globulin Ratio 0.4L, Hepatitis A IgM Antibody [Pending], Hepatitis B Surface Antigen [Pending], Hepatitis B Core IgM Antibody [Pending], Hepatitis C Antibody [Pending], HIV (1&2) Antibody Rapid Negative 05/07/20 06:10: POC Whole Blood Glucose [Pending] Current Medications Medications (Trade) Dose Ordered Sig/Jori Route PRN Reason Start Time Stop Time Status Last Admin Dose Admin Acetaminophen (Tylenol) 1,000 mg Q4H PRN GT temp>100.2 or headache 04/29/20 15:45 05/29/20 15:44 05/04/20 22:23 Bupropion HCl (Wellbutrin SR) 200 mg TWICE A DAY ORAL 04/26/20 21:00 05/26/20 20:59 05/07/20 08:34 Chlorhexidine Gluconate (Kathryn-Hex 2%) 1 applic DAILY@2000 TOPIC 04/27/20 20:00 07/26/20 19:59 05/06/20 21:08 Ciprofloxacin 200 ml @ 200 mls/hr Q12HR IV 05/05/20 22:00 05/12/20 21:59 05/07/20 08:33 Citalopram Hydrobromide (CeleXA) 20 mg DAILY ORAL 04/26/20 21:00 05/27/20 08:59 05/07/20 08:34 Dextrose 1,000 ml @ 0 mls/hr Q24H PRN IV PN interrupted or unavailable 04/28/20 08:30 05/28/20 08:29 Dextrose (Dextrose 50%) 25 ml Q30M PRN IV Hypoglycemia 04/28/20 08:30 07/27/20 08:29 Dextrose (Dextrose 50%) 50 ml Q30M PRN IV Hypoglycemia 04/28/20 08:30 07/27/20 08:29 Dextrose/ Electrolytes 1,000 ml @ 40 mls/hr Q24H IV 05/02/20 10:00 05/28/20 09:59 05/06/20 16:23 Diphenhydramine HCl (Benadryl) 50 mg Q4H PRN IVP Itching/Pruritis 05/06/20 11:15 06/05/20 11:14 Fat Emulsion Intravenous 216 ml/Amino Acids/ Electrolytes/ Dextrose 1,896 ml @ 79 mls/hr Q24H IV 04/28/20 21:00 07/27/20 20:59 05/06/20 21:30 Folic Acid (Folate) 1 mg DAILY ORAL 04/27/20 10:30 05/27/20 10:29 05/07/20 08:34 Hydromorphone HCl 30 ml @ 0 mls/hr UTILIZATION REVIEW NURSE protocol PRN IV For Pain 05/07/20 08:30 05/09/20 08:29 Hydromorphone HCl (Dilaudid) 0.3 mg Q4H PRN IVP Severe Breakthru Pain (>7) 05/07/20 08:15 05/14/20 08:14 Insulin Aspart (NovoLOG) Q6HR SUBQ 04/29/20 00:00 07/28/20 00:00 04/30/20 00:18 Lorazepam (Ativan) 1 mg Q4H PRN SL Muscle Spasm 05/04/20 08:00 05/11/20 07:59 Magnesium Sulfate 100 ml @ 100 mls/hr Q1H IVPB 05/07/20 09:00 05/07/20 12:59 05/07/20 08:33 Metoclopramide HCl (Reglan) 10 mg Q6HR IVP 05/05/20 18:00 06/04/20 17:59 05/07/20 05:30 Metronidazole 100 ml @ 100 mls/hr EVERY 6 HOURS IV 05/04/20 18:00 05/11/20 18:00 05/07/20 05:30 Miscellaneous Medication (UTILIZATION REVIEW NURSE Rate Change) 1 ea DAILY PRN MISC rate change 05/07/20 08:15 05/09/20 08:14 Miscellaneous Medication (UTILIZATION REVIEW NURSE shift volume) 1 ea Q12HR@0700,1900 MISC 05/07/20 19:00 05/09/20 18:59 Naloxone HCl (Narcan) 0.1 mg Q1M PRN IVP RR<10/min OR SBP<90 mmHg 05/06/20 11:15 08/04/20 11:14 Ondansetron HCl (Zofran) 4 mg Q4H PRN IVP Nausea & Vomiting 04/29/20 15:45 05/29/20 15:44 05/05/20 09:29 Pantoprazole (Protonix) 40 mg DAILY IVP 04/30/20 09:00 05/30/20 08:59 05/07/20 08:33 Patient Own Medication (Patient's Own Med) 1 ea QHS ORAL 04/26/20 21:00 05/26/20 20:59 05/06/20 21:31 Trazodone HCl (Desyrel) 300 mg BEDTIME ORAL 04/27/20 21:00 05/27/20 20:59 05/06/20 22:00 Vancomycin HCl (Vanco pharmacy to dose) 1 ea DAILY PRN MISC Per rx protocol 05/04/20 13:15 06/03/20 13:14 Vancomycin HCl 750 mg/Sodium Chloride 275 ml @ 183.333 mls/hr 0300,1100,1900 IVPB 05/06/20 03:30 05/11/20 03:29 05/07/20 03:53 Assessment/Plan Assessment/Plan IMPRESSION: 1. Atelectasis, right lung. 2. Postnasal drip/allergic rhinitis. 3. Status post laparotomy and lysis of adhesions. 4. Chronic pain. 5. Ulcerative colitis. DISCUSSION: The patient is on broad-spectrum antibiotics for intraabdominal abscess. I concur with their use at this time. Her respiratory status is stable. I have encouraged her on incentive use of spirometry and also advised correct technique. I will keep on following. At this time, no further interventions required. Zenon Montoya Omar Syed MD May 07, 2020 10:02
[2020-05-07] MEDS: Hydromorphone 0.5mg/0.5ml inj IVP PRN ×2 (10:56→15:45)
[2020-05-07 12:00] VITALS: BP 127/71
--- NOTE | 2020-05-07 12:42 | Diagnostic Imaging Report ---
Indication: Leg pain and edema Technique: Grayscale and duplex images of the bilateral lower extremity veins Comparison: None Findings: Bilaterally, grayscale and duplex images demonstrate no evidence of intraluminal thrombus. Normal phasic Doppler waveforms, demonstrating normal augmentation response and no evidence of valvular insufficiency. Greater saphenous vein(s) and tibial veins are patent. Normal compressibility. Impression: Negative for evidence of lower extremity deep venous thrombosis bilaterally
--- NOTE | 2020-05-07 14:10 | Diagnostic Imaging Report ---
Indication: Shortness of breath Technique: One view of the chest Comparison: 05/05/2020 Findings: Interim partial improvement of previously demonstrated bilateral suprahilar infiltrates. There is some persistent right perihilar atelectasis. The heart size is normal. Impression: Improved bilateral suprahilar interstitial infiltrates, over 2 days
[2020-05-07] MEDS ORDERED: Tubing IV Secondary IV ONE (14:52)
[2020-05-07] MEDS ORDERED: NS 500ML ONE (14:52)
[2020-05-07] MEDS ORDERED: Tubing Blood Filter IV ONE (14:52)
[2020-05-07 16:00] VITALS: BP 131/73
[2020-05-07] MEDS: Acetaminophen 650mg/20.3ml GT PRN (16:06)
[2020-05-07 20:00] VITALS: BP 125/66
[2020-05-07] MEDS: TraZODone 100mg tab ORAL SCH (20:55)
[2020-05-07] MEDS: Dyna-Hex 2% Top Sol 2oz TOPIC SCH (21:03)
[2020-05-07] MEDS: Fat Emulsion Iv 20% 216 ML in Tpn 1,680 ML IV SCH (21:06)
[2020-05-07] MEDS: MYRBETRIQ 50 MG ORAL SCH (21:06)
--- NOTE | 2020-05-07 21:51 | Infectious Diseases Prog Note ---
Assessment/Plan Assessment/Plan ASSESSMENT AND PLAN: 1. ? sepsis, leukocytosis, fevers, thrombocytopenia, ? cholecystitis, ? aspiration pna/hcap vs atelectasis (favor atelectasis) klebsiella and enterococcus abscess - s/p debridement sbo, malfunctioning Kock ileostomy - s/p surgery - vancomycin, ciprofloxacin and flagyl (cefepime held secondary to thrombocytopenia) - reculture patient - continue w/u per Dr. Meadows, hem/onc and pulmonary medicine - plt transfusion - monitor labs - chest x-ray improved suggesting improving atelectasis 2. The patient has a history of Kock pouch continent ileostomy. 3. History of ulcerative colitis. 4. History of multiple abdominal surgeries. 5. History of spine surgery. 6. History of parathyroid adenoma. 7. History of proctocolectomy. 8. History of laparotomy. 9. Anemia. 10. Thrombocytopenia. 11. Allergies to adhesive tape. 12. Social history is negative. 13. Family history is noncontributory. 14. MAR is noted. 15. Case was discussed with RN. 16. Continue treatment per Dr. Meadows and consultants. 17. I will follow. Subjective Constitutional: Reports: fatigue; Denies: fever Respiratory: Denies: shortness of breath Cardiovascular: Denies: chest pain Gastrointestinal/Abdominal: Reports: other - + abdominal discomfort ; Denies: nausea, vomiting Neurologic: Denies: headache Psychiatric: Denies: depression Skin: Denies: rash Hematologic: Denies: bleeding Musculoskeletal: Denies: pain Allergies: Coded Allergies: ADHESIVE TAPE (Verified Adverse Reaction, Intermediate, Rash, 08/27/19) CLEAR TAPE Objective Last 24 Hour Vital Signs Date Time Temp Pulse Resp B/P (MAP) Pulse Ox O2 Delivery O2 Flow Rate FiO2 05/07/20 21:16 96 Room Air 21 05/07/20 16:36 99.6 05/07/20 16:00 19 05/07/20 16:00 99.9 102 19 131/73 (92) 97 05/07/20 12:00 18 05/07/20 12:00 99.2 90 21 127/71 (89) 97 05/07/20 09:30 97 Room Air 21 05/07/20 09:00 Room Air 05/07/20 08:00 18 05/07/20 08:00 98.9 91 18 119/68 (85) 97 05/07/20 04:00 98.6 103 16 110/60 (77) 93 05/07/20 04:00 16 05/07/20 00:00 16 05/07/20 00:00 98.5 86 16 137/76 (96) 95 Height (Feet): 5 Height (Inches): 3.00 Weight (Pounds): 139 General Appearance: no acute distress HEENT: normocephalic, atraumatic, anicteric, mucous membranes moist Respiratory/Chest: lungs clear, normal breath sounds, no respiratory distress, no accessory muscle use, rhonchi - bilaterally - occasional Cardiovascular: normal rate, regular rhythm, no gallop/murmur, no JVD Abdomen: normal bowel sounds, soft, non tender, no organomegaly, non distended Genitourinary: other - + decker Extremities: no cyanosis Skin: no rash 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 There is some persistent right perihilar atelectasis. The heart size is normal. Impression: Improved bilateral suprahilar interstitial infiltrates, over 2 days Abdominal US: Impression: Distended gallbladder with borderline wall thickening, but no gallstones. Significance uncertain. Mildly dilated common bile duct. May be age-related, downstream obstruction not completely excludable particularly in view of findings reported on recent CT scan. Correlate with liver function tests, consider MRCP for further evaluation if clinically indicated CT abdomen and pelvis - 04/27/20 - Impression: Dilated proximal small bowel loops, with another short segment of dilated mid small bowel, nondilated distal small bowel loops. Findings are concerning for small bowel obstruction. Given somewhat prominent mucosal enhancement, findings could also be due to enteritis. Trace ascites, possibly related to the above Postsurgical changes, as described. Note that the Decker catheter is deep within the reservoir but the reservoir is somewhat distended with material. Ectatic extrahepatic bile ducts. Suspect age-related is this is unchanged from the prior study. Correlate with liver function tests Nonspecific prominent retroperitoneal lymph nodes Findings discussed by phone with Dr. Meadows at the time of interpretation Microbiology Date/Time Source Procedure Growth Status 04/27/20 11:13 Nasopharynx SARS-CoV-2 RdRp Gene Assay - Final Complete 05/05/20 08:35 Indwelling Cath Urine Culture - Preliminary NO GROWTH AFTER 24 HOURS Resulted 04/29/20 14:48 Abdomen Gram Stain - Final Complete 04/29/20 14:48 Aerobic Culture - Final Klebsiella Pneumoniae Enterococcus Faecalis Complete 04/29/20 14:48 Abdomen Anaerobic Culture - Final NO ANAEROBES ISOLATED Complete Microbiology Date/Time Source Procedure Growth Status 05/05/20 08:35 Indwelling Cath Urine Culture - Preliminary NO GROWTH AFTER 24 HOURS Resulted Laboratory Tests Test 05/07/20 01:18 05/07/20 02:00 05/07/20 04:30 05/07/20 06:10 POC Whole Blood Glucose 110 MG/DL (74-106) H Pending Vancomycin Level Trough 13.8 ug/mL (5.0-12.0) H White Blood Count 13.4 K/UL (4.8-10.8) H Red Blood Count 3.46 M/UL (4.20-5.40) L Hemoglobin 11.1 G/DL (12.0-16.0) L Hematocrit 34.2 % (37.0-47.0) L Mean Corpuscular Volume 99 FL (80-99) Mean Corpuscular Hemoglobin 32.2 PG (27.0-31.0) H Mean Corpuscular Hemoglobin Concent 32.5 G/DL (32.0-36.0) Red Cell Distribution Width 12.7 % (11.6-14.8) Platelet Count 8 K/UL (150-450) #*L Mean Platelet Volume 11.5 FL (6.5-10.1) H Neutrophils (%) (Auto) % (45.0-75.0) Lymphocytes (%) (Auto) % (20.0-45.0) Monocytes (%) (Auto) % (1.0-10.0) Eosinophils (%) (Auto) % (0.0-3.0) Basophils (%) (Auto) % (0.0-2.0) Differential Total Cells Counted 100 Neutrophils % (Manual) 90 % (45-75) H Lymphocytes % (Manual) 5 % (20-45) L Monocytes % (Manual) 4 % (1-10) Eosinophils % (Manual) 0 % (0-3) Basophils % (Manual) 1 % (0-2) Band Neutrophils 0 % (0-8) Platelet Estimate Decreased L Platelet Morphology Normal Hypochromasia 1+ Anisocytosis 1+ Sodium Level 137 MMOL/L (136-145) Potassium Level 4.6 MMOL/L (3.5-5.1) Chloride Level 102 MMOL/L (98-107) Carbon Dioxide Level 30 MMOL/L (21-32) Anion Gap 5 mmol/L (5-15) Blood Urea Nitrogen 13 mg/dL (7-18) Creatinine 0.9 MG/DL (0.55-1.30) Estimat Glomerular Filtration Rate > 60 mL/min (>60) Glucose Level 124 MG/DL (74-106) H Calcium Level 8.0 MG/DL (8.5-10.1) L Phosphorus Level 3.0 MG/DL (2.5-4.9) Magnesium Level 1.6 MG/DL (1.8-2.4) L Total Bilirubin 0.5 MG/DL (0.2-1.0) Aspartate Amino Transf (AST/SGOT) 14 U/L (15-37) L Alanine Aminotransferase (ALT/SGPT) 7 U/L (12-78) L Alkaline Phosphatase 166 U/L (46-116) H Total Protein 6.0 G/DL (6.4-8.2) L Albumin 1.7 G/DL (3.4-5.0) L Globulin 4.3 g/dL Albumin/Globulin Ratio 0.4 (1.0-2.7) L Hepatitis A IgM Antibody Pending Hepatitis B Surface Antigen Pending Hepatitis B Core IgM Antibody Pending Hepatitis C Antibody Pending HIV (1&2) Antibody Rapid Negative (NEGATIVE) Test 05/07/20 10:50 05/07/20 12:25 05/07/20 18:16 Haptoglobin Pending Fibrinogen 738 mg/dL (200-400) H POC Whole Blood Glucose 108 MG/DL (74-106) H Pending Current Medications Medications (Trade) Dose Ordered Sig/Jori Route PRN Reason Start Time Stop Time Status Last Admin Dose Admin Acetaminophen (Tylenol) 1,000 mg Q4H PRN GT temp>100.2 or headache 04/29/20 15:45 05/29/20 15:44 05/07/20 16:06 Bupropion HCl (Wellbutrin SR) 200 mg TWICE A DAY ORAL 04/26/20 21:00 05/26/20 20:59 05/07/20 19:18 Chlorhexidine Gluconate (Kathryn-Hex 2%) 1 applic DAILY@2000 TOPIC 04/27/20 20:00 07/26/20 19:59 05/07/20 21:03 Ciprofloxacin 200 ml @ 200 mls/hr Q12HR IV 05/05/20 22:00 05/12/20 21:59 05/07/20 21:07 Citalopram Hydrobromide (CeleXA) 20 mg DAILY ORAL 04/26/20 21:00 05/27/20 08:59 05/07/20 08:34 Dextrose 1,000 ml @ 0 mls/hr Q24H PRN IV PN interrupted or unavailable 04/28/20 08:30 05/28/20 08:29 Dextrose (Dextrose 50%) 25 ml Q30M PRN IV Hypoglycemia 04/28/20 08:30 07/27/20 08:29 Dextrose (Dextrose 50%) 50 ml Q30M PRN IV Hypoglycemia 04/28/20 08:30 07/27/20 08:29 Dextrose/ Electrolytes 1,000 ml @ 40 mls/hr Q24H IV 05/02/20 10:00 05/28/20 09:59 05/06/20 16:23 Diphenhydramine HCl (Benadryl) 50 mg Q4H PRN IVP Itching/Pruritis 05/06/20 11:15 06/05/20 11:14 Fat Emulsion Intravenous 216 ml/Amino Acids/ Electrolytes/ Dextrose 1,896 ml @ 79 mls/hr Q24H IV 04/28/20 21:00 07/27/20 20:59 05/07/20 21:06 Folic Acid (Folate) 1 mg DAILY ORAL 04/27/20 10:30 05/27/20 10:29 05/07/20 08:34 Hydromorphone HCl 30 ml @ 0 mls/hr WATCH INSPECTOR FINAL MOVEMENT protocol PRN IV For Pain 05/07/20 08:30 05/09/20 08:29 Hydromorphone HCl (Dilaudid) 0.3 mg Q4H PRN IVP Severe Breakthru Pain (>7) 05/07/20 08:15 05/14/20 08:14 05/07/20 15:45 Insulin Aspart (NovoLOG) Q6HR SUBQ 04/29/20 00:00 07/28/20 00:00 04/30/20 00:18 Lorazepam (Ativan) 1 mg Q4H PRN SL Muscle Spasm 05/04/20 08:00 05/11/20 07:59 Metoclopramide HCl (Reglan) 10 mg Q6HR IVP 05/05/20 18:00 06/04/20 17:59 05/07/20 19:18 Metronidazole 100 ml @ 100 mls/hr EVERY 6 HOURS IV 05/04/20 18:00 05/11/20 18:00 05/07/20 13:16 Miscellaneous Medication (WATCH INSPECTOR FINAL MOVEMENT Rate Change) 1 ea DAILY PRN MISC rate change 05/07/20 08:15 05/09/20 08:14 Miscellaneous Medication (WATCH INSPECTOR FINAL MOVEMENT shift volume) 1 ea Q12HR@0700,1900 MISC 05/07/20 19:00 05/09/20 18:59 05/07/20 19:00 Naloxone HCl (Narcan) 0.1 mg Q1M PRN IVP RR<10/min OR SBP<90 mmHg 05/06/20 11:15 08/04/20 11:14 Ondansetron HCl (Zofran) 4 mg Q4H PRN IVP Nausea & Vomiting 04/29/20 15:45 05/29/20 15:44 05/07/20 15:45 Pantoprazole (Protonix) 40 mg DAILY IVP 04/30/20 09:00 05/30/20 08:59 05/07/20 08:33 Patient Own Medication (Patient's Own Med) 1 ea QHS ORAL 04/26/20 21:00 05/26/20 20:59 05/07/20 21:06 Trazodone HCl (Desyrel) 300 mg BEDTIME ORAL 04/27/20 21:00 05/27/20 20:59 05/07/20 20:55 Vancomycin HCl (Vanco pharmacy to dose) 1 ea DAILY PRN MISC Per rx protocol 05/04/20 13:15 06/03/20 13:14 Vancomycin HCl 750 mg/Sodium Chloride 275 ml @ 183.333 mls/hr 0300,1100,1900 IVPB 05/06/20 03:30 05/11/20 03:29 05/07/20 21:08 Osmin Bermudez MD May 07, 2020 21:51
[2020-05-07 23:18] LABS: APPEARANCE,URINE CLEAR; BILIRUBIN, URINE NEGATIVE (NEGATIVE); COLOR,URINE PALE YELLOW; GLUCOSE, URINE (UA) NEGATIVE (NEGATIVE); KETONES,URINE NEGATIVE (NEGATIVE); LEUKOCYTE ESTERASE ,URINE 1+ (NEGATIVE); NITRITE,URINE NEGATIVE (NEGATIVE); PH,URINE 7 (4.5-8.0); PROTEIN,URINE NEGATIVE (NEGATIVE); UROBILINOGEN,URINE NORMAL MG/DL (0.0-1.0)
[2020-05-07] MEDS: Micafungin 100 MG in NS 110 ML IVPB SCH (23:46)
[2020-05-08] VITALS (8 sets, daily range): BP systolic 114–139; BP diastolic 28–87
[2020-05-08] MEDS: Vancomycin 750 MG in NS 275 ML IVPB SCH ×2 (02:44→11:00)
[2020-05-08] MEDS: Hydromorphone 0.5mg/0.5ml inj IVP PRN ×3 (04:31→23:05)
[2020-05-08] MEDS: D5 1/2NS w/KCl 20mEq 1,000 ML IV SCH (04:44)
[2020-05-08] MEDS: NovoLOG Insulin Flexpen SUBQ SCH ×5 (05:33→23:28)
[2020-05-08] MEDS: Metoclopramide 10mg/2ml Inj IVP SCH ×4 (05:35→23:04)
[2020-05-08 05:53] LABS: HEMATOCRIT 31.5 % (37.0-47.0); HEMOGLOBIN 10.3 G/DL (12.0-16.0); MEAN CORPUSCULAR VOLUME 98 FL (80-99); RED BLOOD COUNT 3.21 M/UL (4.20-5.40); RED CELL DISTRIBUTION WIDTH 12.7 % (11.6-14.8); WHITE BLOOD COUNT 10.3 K/UL (4.8-10.8)
[2020-05-08 06:04] LABS: PLATELET COUNT 6 K/UL (150-450)
[2020-05-08 06:33] LABS: ALANINE AMINOTRANSFERASE 7 U/L (12-78); ALBUMIN 1.9 G/DL (3.4-5.0); ALBUMIN/GLOBULIN RATIO 0.4 (1.0-2.7); ALKALINE PHOSPHATASE 151 U/L (46-116); ANION GAP 6 mmol/L (5-15); ASPARTATE AMINO TRANSFERASE 15 U/L (15-37); BILIRUBIN,TOTAL 0.5 MG/DL (0.2-1.0); BLOOD UREA NITROGEN 13 mg/dL (7-18); CALCIUM 7.8 MG/DL (8.5-10.1); CARBON DIOXIDE 31 MMOL/L (21-32); CHLORIDE 103 MMOL/L (98-107); CREATININE 0.9 MG/DL (0.55-1.30); PHOSPHORUS 2.9 MG/DL (2.5-4.9); SODIUM 139 MMOL/L (136-145)
[2020-05-08] MEDS: PCA shift volume MISC SCH ×2 (07:14→19:00)
--- NOTE | 2020-05-08 07:18 | Diagnostic Imaging Report ---
ADDENDUM - Added by Cuco Strickland MD on 05/11/2020 3:18 PM (-04:00) Multiple, mildly prominent loops of SMALL BOWEL which may correlate with postoperative ileus. EXAM: XR Abdomen, 2 Views CLINICAL HISTORY: POST-OP TECHNIQUE: Frontal view of the abdomen/pelvis with upright view of the abdomen. COMPARISON: No relevant prior studies available. FINDINGS/IMPRESSION: Multiple, mildly prominent loops of colon which may correlate with postoperative ileus. No large volume free intraperitoneal air. Extensive suture line within the pelvis and right lower quadrant, correlate with surgical history. Midline cutaneous skin lu. The lung bases are clear. Degenerative changes of the spine. <MYCVCSECTION> Communications: 05/11/20 15:45 Verify Receipt with Nurse Verified receipt with Government Service ExecutiveTika Acosta on 05/11 15:44 (-07:00)
[2020-05-08] MEDS: Citalopram Hydrobromide 10mg Tab ORAL SCH (08:30)
[2020-05-08] MEDS: BuPROPion SR 100mg tab ORAL SCH ×2 (08:31→17:14)
[2020-05-08] MEDS: LORazepam 1mg tab SL PRN (08:31)
[2020-05-08] MEDS: Pantoprazole Inj IVP SCH (08:32)
[2020-05-08] MEDS ORDERED: PCA HYDROmorphone 1mg/ml 30 ML IV PRN ×2 (09:30→12:30)
--- NOTE | 2020-05-08 11:27 | Hematology/Onc Progress Note ---
Assessment/Plan Assessment/Plan ASSESSMENT AND PLAN: # SEVERE Thrombocytopenia that is severe, on admission, plt was wnl and now dropped to 8K The patient comes in with high-grade bowel obstruction and malfunction Kock pouch continent ileostomy. The patient is status post surgery including release of the bowel obstruction. The patient was noted to have pus in small intra-abdominal abscess. It was growing out Klebsiella pneumoniae and Enterococcus. The patient has a low platele count and could be secondary to cefepime, which the patient is on. --> cefepime has been stopped, likely culprti --> as per ID antibiotics, vancomycin, Cipro, and Flagyl. 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 # History of ulcerative colitis. # History of multiple abdominal surgeries. # History of spine surgery. # History of parathyroid adenoma. # History of proctocolectomy. # History of laparotomy. The timing of this note does not necessarily reflect the time of the patient was seen. Greatly appreciate consultation. Subjective Constitutional: Denies: no symptoms, chills, fever, malaise, weakness, other Cardiovascular: Denies: no symptoms, chest pain, edema, irregular heart rate, lightheadedness, palpitations, syncope, other Respiratory: Denies: no symptoms, cough, shortness of breath, SOB with excertion, SOB at rest, sputum, wheezing, other Gastrointestinal/Abdominal: Denies: no symptoms, abdomen distended, abdominal pain, black stools, tarry stools, blood in stool, constipated, diarrhea, difficulty swallowing, nausea, poor appetite, poor fluid intake, rectal bleeding , vomiting, other Genitourinary: Denies: no symptoms, burning, discharge, frequency, flank pain, hematuria, incontinence, pain, urgency, other Neurologic/Psychiatric: Denies: no symptoms, anxiety, depressed, emotional problems, headache, numbness, paresthesia, pre-existing deficit, seizure, tingling, tremors, weakness, other Endocrine: Denies: no symptoms, excessive sweating, flushing, intolerance to cold, intolerance to heat, increased hunger, increased thirst, increased urine, unexplained weight gain, unexplained weight loss, other Allergies: Coded Allergies: ADHESIVE TAPE (Verified Adverse Reaction, Intermediate, Rash, 08/27/19) CLEAR TAPE Subjective 05/08 gtube connected, plts 6k, ordered for transfusion, consider ahus as well, will get hit ab test Objective Objective Current Medications Medications (Trade) Dose Ordered Sig/Jori Route PRN Reason Start Time Stop Time Status Last Admin Dose Admin Acetaminophen (Tylenol) 1,000 mg Q4H PRN GT temp>100.2 or headache 04/29/20 15:45 05/29/20 15:44 05/07/20 16:06 Bupropion HCl (Wellbutrin SR) 200 mg TWICE A DAY ORAL 04/26/20 21:00 05/26/20 20:59 05/08/20 08:31 Chlorhexidine Gluconate (Kathryn-Hex 2%) 1 applic DAILY@1999 TOPIC 04/27/20 20:00 07/26/20 19:59 05/07/20 21:03 Ciprofloxacin 200 ml @ 200 mls/hr Q12HR IV 05/05/20 22:00 05/12/20 21:59 05/07/20 21:07 Citalopram Hydrobromide (CeleXA) 20 mg DAILY ORAL 04/26/20 21:00 05/27/20 08:59 05/08/20 08:30 Dextrose 1,000 ml @ 0 mls/hr Q24H PRN IV PN interrupted or unavailable 04/28/20 08:30 05/28/20 08:29 Dextrose (Dextrose 50%) 25 ml Q30M PRN IV Hypoglycemia 04/28/20 08:30 07/27/20 08:29 Dextrose (Dextrose 50%) 50 ml Q30M PRN IV Hypoglycemia 04/28/20 08:30 07/27/20 08:29 Dextrose/ Electrolytes 1,000 ml @ 40 mls/hr Q24H IV 05/02/20 10:00 05/28/20 09:59 05/08/20 04:44 Diphenhydramine HCl (Benadryl) 50 mg Q4H PRN IVP Itching/Pruritis 05/06/20 11:15 06/05/20 11:14 Fat Emulsion Intravenous 216 ml/Amino Acids/ Electrolytes/ Dextrose 1,896 ml @ 79 mls/hr Q24H IV 04/28/20 21:00 07/27/20 20:59 05/07/20 21:06 Folic Acid (Folate) 1 mg DAILY ORAL 04/27/20 10:30 05/27/20 10:29 05/08/20 08:31 Hydromorphone HCl 30 ml @ 0 mls/hr NON FERROUS MATERIAL HANDLER protocol PRN IV For Pain 05/07/20 08:30 05/09/20 08:29 Hydromorphone HCl (Dilaudid) 0.3 mg Q4H PRN IVP Severe Breakthru Pain (>7) 05/07/20 08:15 05/14/20 08:14 05/08/20 04:31 Insulin Aspart (NovoLOG) Q6HR SUBQ 04/29/20 00:00 07/28/20 00:00 04/30/20 00:18 Lorazepam (Ativan) 1 mg Q4H PRN SL Muscle Spasm 05/04/20 08:00 05/11/20 07:59 05/08/20 08:31 Metoclopramide HCl (Reglan) 10 mg Q6HR IVP 05/05/20 18:00 06/04/20 17:59 05/08/20 05:35 Metronidazole 100 ml @ 100 mls/hr EVERY 6 HOURS IV 05/04/20 18:00 05/11/20 18:00 05/08/20 05:35 Micafungin Sodium 100 mg/Sodium Chloride 110 ml @ 110 mls/hr Q24H IVPB 05/08/20 00:00 05/15/20 00:00 05/07/20 23:46 Miscellaneous Medication (NON FERROUS MATERIAL HANDLER Rate Change) 1 ea DAILY PRN MISC rate change 05/07/20 08:15 05/09/20 08:14 Miscellaneous Medication (NON FERROUS MATERIAL HANDLER shift volume) 1 ea Q12HR@0700,1900 MISC 05/07/20 19:00 05/09/20 18:59 05/08/20 07:14 Naloxone HCl (Narcan) 0.1 mg Q1M PRN IVP RR<10/min OR SBP<90 mmHg 05/06/20 11:15 08/04/20 11:14 Ondansetron HCl (Zofran) 4 mg Q4H PRN IVP Nausea & Vomiting 04/29/20 15:45 05/29/20 15:44 05/08/20 04:44 Pantoprazole (Protonix) 40 mg DAILY IVP 04/30/20 09:00 05/30/20 08:59 05/08/20 08:32 Patient Own Medication (Patient's Own Med) 1 ea QHS ORAL 04/26/20 21:00 05/26/20 20:59 05/07/20 21:06 Trazodone HCl (Desyrel) 300 mg BEDTIME ORAL 04/27/20 21:00 05/27/20 20:59 05/07/20 20:55 Vancomycin HCl (Vanco pharmacy to dose) 1 ea DAILY PRN MISC Per rx protocol 05/04/20 13:15 06/03/20 13:14 Vancomycin HCl 750 mg/Sodium Chloride 275 ml @ 183.333 mls/hr 0300,1100,1900 IVPB 05/06/20 03:30 05/11/20 03:29 05/08/20 02:44 Last 24 Hour Vital Signs Date Time Temp Pulse Resp B/P (MAP) Pulse Ox O2 Delivery O2 Flow Rate FiO2 05/08/20 09:00 Room Air 05/08/20 08:00 98.9 93 18 133/69 (90) 95 05/08/20 08:00 18 05/08/20 07:35 97 Room Air 05/08/20 05:01 99.4 05/08/20 04:00 20 05/08/20 04:00 99.4 106 18 126/67 (86) 96 05/08/20 00:00 19 05/08/20 00:00 98.6 102 20 122/66 (84) 98 05/07/20 21:16 96 Room Air 21 05/07/20 20:00 19 05/07/20 20:00 96.6 100 19 125/66 (85) 96 05/07/20 20:00 Room Air 05/07/20 16:36 99.6 05/07/20 16:00 19 05/07/20 16:00 99.9 102 19 131/73 (92) 97 05/07/20 12:00 18 05/07/20 12:00 99.2 90 21 127/71 (89) 97 05/07/20 09:30 97 Room Air 21 05/07/20 09:00 Room Air 05/07/20 08:00 18 05/07/20 08:00 98.9 91 18 119/68 (85) 97 05/07/20 04:00 98.6 103 16 110/60 (77) 93 05/07/20 04:00 16 05/07/20 00:00 16 05/07/20 00:00 98.5 86 16 137/76 (96) 95 05/06/20 21:00 Room Air 05/06/20 20:35 96 Room Air 21 05/06/20 20:00 18 05/06/20 20:00 99.5 106 18 129/81 (97) 95 05/06/20 16:00 18 05/06/20 16:00 97.5 97 18 138/78 (98) 98 05/06/20 12:00 98.9 89 18 116/98 (104) 93 05/06/20 12:00 18 Intake and Output 05/07/20 05/08/20 19:00 07:00 Output Total 3535 ml 2070 ml Balance -3535 ml -2070 ml Output Urine Total 3065 ml 1800 ml Other 470 ml 270 ml Labs Test 05/05/20 12:04 05/05/20 18:07 05/06/20 01:14 05/06/20 02:06 POC Whole Blood Glucose 101 MG/DL (74-106) 123 MG/DL (74-106) 115 MG/DL (74-106) Vancomycin Level Trough 7.4 ug/mL (5.0-12.0) Test 05/06/20 04:50 05/06/20 06:23 05/06/20 11:19 05/06/20 17:38 White Blood Count 11.6 K/UL (4.8-10.8) Red Blood Count 3.38 M/UL (4.20-5.40) Hemoglobin 10.8 G/DL (12.0-16.0) Hematocrit 33.3 % (37.0-47.0) Mean Corpuscular Volume 99 FL (80-99) Mean Corpuscular Hemoglobin 31.9 PG (27.0-31.0) Mean Corpuscular Hemoglobin Concent 32.3 G/DL (32.0-36.0) Red Cell Distribution Width 12.7 % (11.6-14.8) Platelet Count 29 K/UL (150-450) Mean Platelet Volume 13.2 FL (6.5-10.1) Neutrophils (%) (Auto) % (45.0-75.0) Lymphocytes (%) (Auto) % (20.0-45.0) Monocytes (%) (Auto) % (1.0-10.0) Eosinophils (%) (Auto) % (0.0-3.0) Basophils (%) (Auto) % (0.0-2.0) Differential Total Cells Counted 100 Neutrophils % (Manual) 91 % (45-75) Lymphocytes % (Manual) 4 % (20-45) Monocytes % (Manual) 5 % (1-10) Eosinophils % (Manual) 0 % (0-3) Basophils % (Manual) 0 % (0-2) Band Neutrophils 0 % (0-8) Platelet Estimate Decreased Platelet Morphology Normal Polychromasia 1+ Hypochromasia 1+ Sodium Level 140 MMOL/L (136-145) Potassium Level 4.2 MMOL/L (3.5-5.1) Chloride Level 104 MMOL/L (98-107) Carbon Dioxide Level 30 MMOL/L (21-32) Anion Gap 6 mmol/L (5-15) Blood Urea Nitrogen 13 mg/dL (7-18) Creatinine 0.8 MG/DL (0.55-1.30) Estimat Glomerular Filtration Rate > 60 mL/min (>60) Glucose Level 99 MG/DL (74-106) Calcium Level 7.9 MG/DL (8.5-10.1) Total Bilirubin 0.5 MG/DL (0.2-1.0) Aspartate Amino Transf (AST/SGOT) 15 U/L (15-37) Alanine Aminotransferase (ALT/SGPT) < 6 U/L (12-78) Alkaline Phosphatase 146 U/L (46-116) Total Protein 5.9 G/DL (6.4-8.2) Albumin 1.7 G/DL (3.4-5.0) Globulin 4.2 g/dL Albumin/Globulin Ratio 0.4 (1.0-2.7) POC Whole Blood Glucose 78 MG/DL (74-106) 114 MG/DL (74-106) Test 05/07/20 01:18 05/07/20 02:00 05/07/20 04:30 05/07/20 06:10 POC Whole Blood Glucose 110 MG/DL (74-106) Vancomycin Level Trough 13.8 ug/mL (5.0-12.0) White Blood Count 13.4 K/UL (4.8-10.8) Red Blood Count 3.46 M/UL (4.20-5.40) Hemoglobin 11.1 G/DL (12.0-16.0) Hematocrit 34.2 % (37.0-47.0) Mean Corpuscular Volume 99 FL (80-99) Mean Corpuscular Hemoglobin 32.2 PG (27.0-31.0) Mean Corpuscular Hemoglobin Concent 32.5 G/DL (32.0-36.0) Red Cell Distribution Width 12.7 % (11.6-14.8) Platelet Count 8 K/UL (150-450) Mean Platelet Volume 11.5 FL (6.5-10.1) Neutrophils (%) (Auto) % (45.0-75.0) Lymphocytes (%) (Auto) % (20.0-45.0) Monocytes (%) (Auto) % (1.0-10.0) Eosinophils (%) (Auto) % (0.0-3.0) Basophils (%) (Auto) % (0.0-2.0) Differential Total Cells Counted 100 Neutrophils % (Manual) 90 % (45-75) Lymphocytes % (Manual) 5 % (20-45) Monocytes % (Manual) 4 % (1-10) Eosinophils % (Manual) 0 % (0-3) Basophils % (Manual) 1 % (0-2) Band Neutrophils 0 % (0-8) Other Cell Type See comments Platelet Estimate Decreased Platelet Morphology Normal Hypochromasia 1+ Anisocytosis 1+ Sodium Level 137 MMOL/L (136-145) Potassium Level 4.6 MMOL/L (3.5-5.1) Chloride Level 102 MMOL/L (98-107) Carbon Dioxide Level 30 MMOL/L (21-32) Anion Gap 5 mmol/L (5-15) Blood Urea Nitrogen 13 mg/dL (7-18) Creatinine 0.9 MG/DL (0.55-1.30) Estimat Glomerular Filtration Rate > 60 mL/min (>60) Glucose Level 124 MG/DL (74-106) Calcium Level 8.0 MG/DL (8.5-10.1) Phosphorus Level 3.0 MG/DL (2.5-4.9) Magnesium Level 1.6 MG/DL (1.8-2.4) Total Bilirubin 0.5 MG/DL (0.2-1.0) Aspartate Amino Transf (AST/SGOT) 14 U/L (15-37) Alanine Aminotransferase (ALT/SGPT) 7 U/L (12-78) Alkaline Phosphatase 166 U/L (46-116) Total Protein 6.0 G/DL (6.4-8.2) Albumin 1.7 G/DL (3.4-5.0) Globulin 4.3 g/dL Albumin/Globulin Ratio 0.4 (1.0-2.7) Hepatitis A IgM Antibody Negative (Negative) Hepatitis B Surface Antigen Negative (Negative) Hepatitis B Core IgM Antibody Negative (Negative) Hepatitis C Antibody <0.1 s/co ratio HIV (1&2) Antibody Rapid Negative (NEGATIVE) Test 05/07/20 10:50 05/07/20 12:25 05/07/20 18:16 05/07/20 22:50 Fibrinogen 738 mg/dL (200-400) POC Whole Blood Glucose 108 MG/DL (74-106) Urine Color Pale yellow Urine Appearance Clear Urine pH 7 (4.5-8.0) Urine Specific [place] 1.010 (1.005-1.035) Urine Protein Negative (NEGATIVE) Urine Glucose (UA) Negative (NEGATIVE) Urine Ketones Negative (NEGATIVE) Urine Blood 2+ (NEGATIVE) Urine Nitrite Negative (NEGATIVE) Urine Bilirubin Negative (NEGATIVE) Urine Urobilinogen Normal MG/DL (0.0-1.0) Urine Leukocyte Esterase 1+ (NEGATIVE) Urine RBC 2-4 /HPF (0 - 2) Urine WBC 0-2 /HPF (0 - 2) Urine Squamous Epithelial Cells Few /LPF (NONE/OCC) Urine Bacteria None /HPF (NONE) Test 05/07/20 23:58 05/08/20 04:50 05/08/20 04:52 05/08/20 05:45 POC Whole Blood Glucose 131 MG/DL (74-106) 136 MG/DL (74-106) White Blood Count 10.3 K/UL (4.8-10.8) Red Blood Count 3.21 M/UL (4.20-5.40) Hemoglobin 10.3 G/DL (12.0-16.0) Hematocrit 31.5 % (37.0-47.0) Mean Corpuscular Volume 98 FL (80-99) Mean Corpuscular Hemoglobin 32.0 PG (27.0-31.0) Mean Corpuscular Hemoglobin Concent 32.6 G/DL (32.0-36.0) Red Cell Distribution Width 12.7 % (11.6-14.8) Platelet Count 6 K/UL (150-450) Mean Platelet Volume 14.4 FL (6.5-10.1) Neutrophils (%) (Auto) % (45.0-75.0) Lymphocytes (%) (Auto) % (20.0-45.0) Monocytes (%) (Auto) % (1.0-10.0) Eosinophils (%) (Auto) % (0.0-3.0) Basophils (%) (Auto) % (0.0-2.0) Differential Total Cells Counted 100 Neutrophils % (Manual) 84 % (45-75) Lymphocytes % (Manual) 9 % (20-45) Monocytes % (Manual) 7 % (1-10) Eosinophils % (Manual) 0 % (0-3) Basophils % (Manual) 0 % (0-2) Band Neutrophils 0 % (0-8) Platelet Estimate Decreased Platelet Morphology Normal Hypochromasia 1+ Anisocytosis 1+ Sodium Level 139 MMOL/L (136-145) Potassium Level 4.0 MMOL/L (3.5-5.1) Chloride Level 103 MMOL/L (98-107) Carbon Dioxide Level 31 MMOL/L (21-32) Anion Gap 6 mmol/L (5-15) Blood Urea Nitrogen 13 mg/dL (7-18) Creatinine 0.9 MG/DL (0.55-1.30) Estimat Glomerular Filtration Rate > 60 mL/min (>60) Glucose Level 134 MG/DL (74-106) Calcium Level 7.8 MG/DL (8.5-10.1) Phosphorus Level 2.9 MG/DL (2.5-4.9) Magnesium Level 2.1 MG/DL (1.8-2.4) Total Bilirubin 0.5 MG/DL (0.2-1.0) Aspartate Amino Transf (AST/SGOT) 15 U/L (15-37) Alanine Aminotransferase (ALT/SGPT) 7 U/L (12-78) Alkaline Phosphatase 151 U/L (46-116) Total Protein 6.4 G/DL (6.4-8.2) Albumin 1.9 G/DL (3.4-5.0) Globulin 4.5 g/dL Albumin/Globulin Ratio 0.4 (1.0-2.7) Height (Feet): 5 Height (Inches): 3.00 Weight (Pounds): 139 Objective Physical Exam: Vitals: reviewed General: NAD HEENT: nc, at Neck: supple Chest: clear breath sounds bilaterally Cardiovascular: RRR, no s3, s4 Abdomen: soft, nontender, nd ++gtube, Kouch pouch ++ midline scar site is c/d/i Extremities: no cce, normal range of motion Neuro: alert and oriented Cecilio Grey MD May 08, 2020 11:27
--- NOTE | 2020-05-08 12:04 | Pulmonology Progress Note ---
Subjective Interval Events: None new Constitutional: Reports: fatigue; Denies: fever HEENT: Repors: no symptoms Respiratory: Reports: no symptoms Cardiovascular: Reports: no symptoms Gastrointestinal/Abdominal: Reports: other - + abdominal discomfort ; Denies: nausea, vomiting Psychiatric: Denies: depression Skin: Denies: rash Musculoskeletal: Denies: pain Allergies: Coded Allergies: ADHESIVE TAPE (Verified Adverse Reaction, Intermediate, Rash, 08/27/19) CLEAR TAPE Objective Last 24 Hour Vital Signs Date Time Temp Pulse Resp B/P (MAP) Pulse Ox O2 Delivery O2 Flow Rate FiO2 05/08/20 09:00 Room Air 05/08/20 08:00 98.9 93 18 133/69 (90) 95 05/08/20 08:00 18 05/08/20 07:35 97 Room Air 21 05/08/20 05:01 99.4 05/08/20 04:00 20 05/08/20 04:00 99.4 106 18 126/67 (86) 96 05/08/20 00:00 19 05/08/20 00:00 98.6 102 20 122/66 (84) 98 05/07/20 21:16 96 Room Air 21 05/07/20 20:00 19 05/07/20 20:00 96.6 100 19 125/66 (85) 96 05/07/20 20:00 Room Air 05/07/20 16:36 99.6 05/07/20 16:00 19 05/07/20 16:00 99.9 102 19 131/73 (92) 97 Intake and Output 05/07/20 05/08/20 19:00 07:00 Output Total 3535 ml 2070 ml Balance -3535 ml -2070 ml Output Urine Total 3065 ml 1800 ml Other 470 ml 270 ml General Appearance: no acute distress HEENT: normocephalic Respiratory: chest wall non-tender, lungs clear Cardiovascular: normal peripheral pulses Abdomen: normal bowel sounds Laboratory Tests 05/07/20 12:25: POC Whole Blood Glucose 108H 05/07/20 18:16: POC Whole Blood Glucose [Pending] 05/07/20 22:50: Urine Color Pale yellow, Urine Appearance Clear, Urine pH 7, Urine Specific [place] 1.010, Urine Protein Negative, Urine Glucose (UA) Negative, Urine Ketones Negative, Urine Blood 2+H, Urine Nitrite Negative, Urine Bilirubin Negative, Urine Urobilinogen Normal, Urine Leukocyte Esterase 1+H, Urine RBC 2- 4H, Urine WBC 0-2, Urine Squamous Epithelial Cells Few, Urine Bacteria None 05/07/20 23:58: POC Whole Blood Glucose 131H 05/08/20 04:50: White Blood Count 10.3, Red Blood Count 3.21L, Hemoglobin 10.3L, Hematocrit 31.5L, Mean Corpuscular Volume 98, Mean Corpuscular Hemoglobin 32.0H, Mean Corpuscular Hemoglobin Concent 32.6, Red Cell Distribution Width 12.7, Platelet Count 6*L, Mean Platelet Volume 14.4H, Neutrophils (%) (Auto) , Lymphocytes (%) (Auto) , Monocytes (%) (Auto) , Eosinophils (%) (Auto) , Basophils (%) (Auto) , Differential Total Cells Counted 100, Neutrophils % (Manual) 84H, Lymphocytes % (Manual) 9L, Monocytes % (Manual) 7, Eosinophils % (Manual) 0, Basophils % ( Manual) 0, Band Neutrophils 0, Platelet Estimate DecreasedL, Platelet Morphology Normal, Hypochromasia 1+, Anisocytosis 1+, Sodium Level 139, Potassium Level 4.0, Chloride Level 103, Carbon Dioxide Level 31, Anion Gap 6, Blood Urea Nitrogen 13, Creatinine 0.9, Estimat Glomerular Filtration Rate > 60 , Glucose Level 134H, Calcium Level 7.8L, Phosphorus Level 2.9, Magnesium Level 2.1, Total Bilirubin 0.5, Aspartate Amino Transf (AST/SGOT) 15, Alanine Aminotransferase (ALT/SGPT) 7L, Alkaline Phosphatase 151H, Total Protein 6.4, Albumin 1.9L, Globulin 4.5, Albumin/Globulin Ratio 0.4L 05/08/20 04:52: POC Whole Blood Glucose 136H 05/08/20 05:45: Heparin-PF4 Antibody Screen [Pending] Current Medications Medications (Trade) Dose Ordered Sig/Jori Route PRN Reason Start Time Stop Time Status Last Admin Dose Admin Acetaminophen (Tylenol) 1,000 mg Q4H PRN GT temp>100.2 or headache 04/29/20 15:45 05/29/20 15:44 05/07/20 16:06 Bupropion HCl (Wellbutrin SR) 200 mg TWICE A DAY ORAL 04/26/20 21:00 05/26/20 20:59 05/08/20 08:31 Chlorhexidine Gluconate (Kathryn-Hex 2%) 1 applic DAILY@2000 TOPIC 04/27/20 20:00 07/26/20 19:59 05/07/20 21:03 Ciprofloxacin 200 ml @ 200 mls/hr Q12HR IV 05/05/20 22:00 05/12/20 21:59 05/07/20 21:07 Citalopram Hydrobromide (CeleXA) 20 mg DAILY ORAL 04/26/20 21:00 05/27/20 08:59 05/08/20 08:30 Dextrose 1,000 ml @ 0 mls/hr Q24H PRN IV PN interrupted or unavailable 04/28/20 08:30 05/28/20 08:29 Dextrose (Dextrose 50%) 25 ml Q30M PRN IV Hypoglycemia 04/28/20 08:30 07/27/20 08:29 Dextrose (Dextrose 50%) 50 ml Q30M PRN IV Hypoglycemia 04/28/20 08:30 07/27/20 08:29 Dextrose/ Electrolytes 1,000 ml @ 40 mls/hr Q24H IV 05/02/20 10:00 05/28/20 09:59 05/08/20 04:44 Diphenhydramine HCl (Benadryl) 50 mg Q4H PRN IVP Itching/Pruritis 05/06/20 11:15 06/05/20 11:14 Fat Emulsion Intravenous 216 ml/Amino Acids/ Electrolytes/ Dextrose 1,896 ml @ 79 mls/hr Q24H IV 04/28/20 21:00 07/27/20 20:59 05/07/20 21:06 Folic Acid (Folate) 1 mg DAILY ORAL 04/27/20 10:30 05/27/20 10:29 05/08/20 08:31 Hydromorphone HCl 30 ml @ 0 mls/hr MANAGER MACHINE protocol PRN IV For Pain 05/07/20 08:30 05/09/20 08:29 Hydromorphone HCl (Dilaudid) 0.3 mg Q4H PRN IVP Severe Breakthru Pain (>7) 05/07/20 08:15 05/14/20 08:14 05/08/20 12:02 Insulin Aspart (NovoLOG) Q6HR SUBQ 04/29/20 00:00 07/28/20 00:00 04/30/20 00:18 Lorazepam (Ativan) 1 mg Q4H PRN SL Muscle Spasm 05/04/20 08:00 05/11/20 07:59 05/08/20 08:31 Metoclopramide HCl (Reglan) 10 mg Q6HR IVP 05/05/20 18:00 06/04/20 17:59 05/08/20 05:35 Metronidazole 100 ml @ 100 mls/hr EVERY 6 HOURS IV 05/04/20 18:00 05/11/20 18:00 05/08/20 05:35 Micafungin Sodium 100 mg/Sodium Chloride 110 ml @ 110 mls/hr Q24H IVPB 05/08/20 00:00 05/15/20 00:00 05/07/20 23:46 Miscellaneous Medication (MANAGER MACHINE Rate Change) 1 ea DAILY PRN MISC rate change 05/07/20 08:15 05/09/20 08:14 Miscellaneous Medication (MANAGER MACHINE shift volume) 1 ea Q12HR@0700,1900 MISC 05/07/20 19:00 05/09/20 18:59 05/08/20 07:14 Naloxone HCl (Narcan) 0.1 mg Q1M PRN IVP RR<10/min OR SBP<90 mmHg 05/06/20 11:15 08/04/20 11:14 Ondansetron HCl (Zofran) 4 mg Q4H PRN IVP Nausea & Vomiting 04/29/20 15:45 05/29/20 15:44 05/08/20 04:44 Pantoprazole (Protonix) 40 mg DAILY IVP 04/30/20 09:00 05/30/20 08:59 05/08/20 08:32 Patient Own Medication (Patient's Own Med) 1 ea QHS ORAL 04/26/20 21:00 05/26/20 20:59 05/07/20 21:06 Trazodone HCl (Desyrel) 300 mg BEDTIME ORAL 04/27/20 21:00 05/27/20 20:59 05/07/20 20:55 Vancomycin HCl (Vanco pharmacy to dose) 1 ea DAILY PRN MISC Per rx protocol 05/04/20 13:15 06/03/20 13:14 Vancomycin HCl 750 mg/Sodium Chloride 275 ml @ 183.333 mls/hr 0300,1100,1900 IVPB 05/06/20 03:30 05/11/20 03:29 05/08/20 02:44 Assessment/Plan Assessment/Plan IMPRESSION: 1. Atelectasis, right lung. 2. Postnasal drip/allergic rhinitis. 3. Status post laparotomy and lysis of adhesions. 4. Chronic pain. 5. Ulcerative colitis. DISCUSSION: The patient is on broad-spectrum antibiotics for intraabdominal abscess. I concur with their use at this time. Her respiratory status is stable. She is saturating well on room air. Afebrile. At this time, no further pulmonary interventions required. Zenon Montoya Omar Syed MD May 08, 2020 12:04
[2020-05-08] MEDS ORDERED: Rate Change PCA 1 Each MISC PRN (12:15)
--- NOTE | 2020-05-08 13:32 | General Progress Note ---
Progress Note Progress Note AVSS Feeling stable without nausea/emesis with occasional cramping and pain Abdomen minimally distended, soft, non-tender, incision clean, stoma stable Urine 4865 Gastrostomy 710 bilious Kock pouch ileo small amount bloody fluid WBC down 10,300 Hgb 10.3 Platelets 6000 - received 2 platelet pack transfusions yesterday for 8000 count albumin 1.9 KUB dilated bowel loops Imp: Ileus ? anastomotic hematoma due to severe thrombocytopenia Plan; continue npo, TPN, Gastrostomy to suction, Busch, Kock pouch indwelling catheter to gravity drainage f/u labs Lalo Meadows MD May 08, 2020 13:32
[2020-05-08 17:47] LABS: HEMATOCRIT 30.2 % (37.0-47.0); HEMOGLOBIN 9.9 G/DL (12.0-16.0); MEAN CORPUSCULAR VOLUME 98 FL (80-99); PLATELET COUNT 61 K/UL (150-450); RED BLOOD COUNT 3.08 M/UL (4.20-5.40); RED CELL DISTRIBUTION WIDTH 13.5 % (11.6-14.8); WHITE BLOOD COUNT 11.2 K/UL (4.8-10.8)
[2020-05-08 17:52] LABS: NEUTROPHILS % (AUTO) 84.8 % (45.0-75.0)
[2020-05-08 17:53] LABS: BASOPHILS % (AUTO) 0.9 % (0.0-2.0); LYMPHOCYTES % (AUTO) 7.7 % (20.0-45.0); MONOCYTES % (AUTO) 6.6 % (1.0-10.0)
[2020-05-08] MEDS: Dyna-Hex 2% Top Sol 2oz TOPIC SCH (20:06)
[2020-05-08] MEDS: Fat Emulsion Iv 20% 216 ML in Tpn 1,680 ML IV SCH (20:24)
[2020-05-08] MEDS: MYRBETRIQ 50 MG ORAL SCH (20:28)
[2020-05-08] MEDS: TraZODone 100mg tab ORAL SCH (20:28)
[2020-05-08] MEDS: Micafungin 100 MG in NS 110 ML IVPB SCH (23:05)
[2020-05-09] MEDS: Vancomycin 750 MG in NS 275 ML IVPB SCH ×3 (01:12→17:13)
[2020-05-09 03:50] VITALS: BP 123/68
[2020-05-09 03:51] VITALS: BP 123/68
[2020-05-09] MEDS: NovoLOG Insulin Flexpen SUBQ SCH ×3 (05:02→18:00)
[2020-05-09] MEDS: Metoclopramide 10mg/2ml Inj IVP SCH ×4 (05:36→23:09)
[2020-05-09 06:02] LABS: ALANINE AMINOTRANSFERASE 11 U/L (12-78); ALBUMIN 2.1 G/DL (3.4-5.0); ALBUMIN/GLOBULIN RATIO 0.5 (1.0-2.7); ALKALINE PHOSPHATASE 165 U/L (46-116); ANION GAP 6 mmol/L (5-15); ASPARTATE AMINO TRANSFERASE 12 U/L (15-37); BILIRUBIN,TOTAL 0.6 MG/DL (0.2-1.0); BLOOD UREA NITROGEN 17 mg/dL (7-18); CARBON DIOXIDE 30 MMOL/L (21-32); CHLORIDE 102 MMOL/L (98-107); CREATININE 0.9 MG/DL (0.55-1.30); POTASSIUM 4.3 MMOL/L (3.5-5.1); SODIUM 138 MMOL/L (136-145)
[2020-05-09] MEDS: Hydromorphone 0.5mg/0.5ml inj IVP PRN ×4 (06:02→22:59)
[2020-05-09 06:05] LABS: HEMATOCRIT 28.7 % (37.0-47.0); HEMOGLOBIN 9.4 G/DL (12.0-16.0); MEAN CORPUSCULAR VOLUME 98 FL (80-99); PLATELET COUNT 34 K/UL (150-450); RED BLOOD COUNT 2.92 M/UL (4.20-5.40); RED CELL DISTRIBUTION WIDTH 12.8 % (11.6-14.8); WHITE BLOOD COUNT 10.3 K/UL (4.8-10.8)
[2020-05-09] MEDS: LORazepam 1mg tab SL PRN (06:57)
[2020-05-09] MEDS: PCA shift volume MISC SCH ×2 (07:28→19:12)
[2020-05-09] MEDS ORDERED: NS Irrig 1000ml ONE ×2 (08:44→09:43)
--- NOTE | 2020-05-09 09:15 | General Progress Note ---
Progress Note Progress Note AVSS Still unable/refusing to mobilize/ambulate very much. Abdomen soft, slight distention, incision clean, stoma stable Urine 5125 Gastrostomy 475 bilious Kock Pouch ileo only 40cc/24 hours - bloody fluid WBC 10,300 Hgb down 9.4 (has received 1000mg Venofer this hospitalization) Platelets 34,000 (had 2 platelet packs yesterday (total now 4) albumin up 2.1 On cipro, Flagyl, Micafungin, Vancomycin Imp: Persistent ileus - not likely obstruction with low volume gastrostomy output R/O anastomotic hematoma due to severe thrombocytopenia Plan; continue NPO, TPN Transfuse additional 2 platelet packs STAT Mobilize to commode - if able, will d/c decker Will need Kock pouch pouchogram XRay if no enteric output continues Lalo Meadows MD May 09, 2020 09:15
[2020-05-09] MEDS ORDERED: Rate Change PCA 1 Each MISC PRN (09:30)
[2020-05-09] MEDS ORDERED: NS 500ML ONE (09:43)
[2020-05-09] MEDS ORDERED: Tubing IV Secondary IV ONE (09:43)
[2020-05-09] MEDS: Pantoprazole Inj IVP SCH (09:47)
[2020-05-09] MEDS: BuPROPion SR 100mg tab ORAL SCH ×2 (09:47→18:12)
[2020-05-09] MEDS: Citalopram Hydrobromide 10mg Tab ORAL SCH (09:48)
[2020-05-09] MEDS: D5 1/2NS w/KCl 20mEq 1,000 ML IV SCH (09:49)
--- NOTE | 2020-05-09 10:15 | Pulmonology Progress Note ---
Subjective Interval Events: None new Constitutional: Reports: fatigue; Denies: fever HEENT: Repors: no symptoms Respiratory: Reports: no symptoms Cardiovascular: Reports: no symptoms Gastrointestinal/Abdominal: Reports: other - + abdominal discomfort ; Denies: nausea, vomiting Psychiatric: Denies: depression Skin: Denies: rash Musculoskeletal: Denies: pain Allergies: Coded Allergies: ADHESIVE TAPE (Verified Adverse Reaction, Intermediate, Rash, 08/27/19) CLEAR TAPE Objective Last 24 Hour Vital Signs Date Time Temp Pulse Resp B/P (MAP) Pulse Ox O2 Delivery O2 Flow Rate FiO2 05/09/20 08:00 16 05/09/20 08:00 99.2 103 96 05/09/20 03:51 101 17 95 05/09/20 03:50 98.4 101 17 123/68 (86) 95 05/08/20 23:55 102 16 92 05/08/20 23:28 99.4 102 16 124/63 (83) 92 05/08/20 21:00 Room Air 05/08/20 20:00 99.7 86 18 114/87 (96) 96 05/08/20 20:00 86 18 96 05/08/20 19:07 94 Room Air 21 05/08/20 16:00 99.1 102 18 139/28 (65) 96 05/08/20 16:00 18 05/08/20 12:32 98.9 05/08/20 12:00 20 05/08/20 12:00 99.0 95 20 132/76 (94) 96 Intake and Output 05/08/20 05/09/20 19:00 07:00 Intake Total 1349 ml Output Total 2780 ml 2870 ml Balance -2780 ml -1521 ml IV Total 1349 ml Output Urine Total 2600 ml 2525 ml Other 180 ml 345 ml General Appearance: no acute distress HEENT: normocephalic Respiratory: chest wall non-tender, lungs clear Cardiovascular: normal peripheral pulses Abdomen: normal bowel sounds Microbiology Date/Time Source Procedure Growth Status 05/07/20 22:30 Blood Blood Culture - Preliminary NO GROWTH AFTER 24 HOURS Resulted 05/07/20 22:10 Blood Blood Culture - Preliminary NO GROWTH AFTER 24 HOURS Resulted 05/07/20 22:50 Indwelling Cath Urine Culture - Preliminary NO GROWTH Resulted Laboratory Tests 05/08/20 12:57: POC Whole Blood Glucose [Pending] 05/08/20 17:25: White Blood Count 11.2H, Red Blood Count 3.08L, Hemoglobin 9.9L, Hematocrit 30.2L, Mean Corpuscular Volume 98, Mean Corpuscular Hemoglobin 32.2H, Mean Corpuscular Hemoglobin Concent 32.8, Red Cell Distribution Width 13.5, Platelet Count 61#L, Mean Platelet Volume 11.4H, Neutrophils (%) (Auto) 84.8H, Lymphocytes (%) (Auto) 7.7L, Monocytes (%) (Auto) 6.6, Eosinophils (%) (Auto) 0.0, Basophils (%) (Auto) 0.9 05/08/20 17:41: POC Whole Blood Glucose 104 05/08/20 23:20: POC Whole Blood Glucose 105 05/09/20 04:40: White Blood Count 10.3, Red Blood Count 2.92L, Hemoglobin 9.4L, Hematocrit 28.7L , Mean Corpuscular Volume 98, Mean Corpuscular Hemoglobin 32.3H, Mean Corpuscular Hemoglobin Concent 32.9, Red Cell Distribution Width 12.8, Platelet Count 34L, Mean Platelet Volume 14.6H, Neutrophils (%) (Auto) , Lymphocytes (%) (Auto) , Monocytes (%) (Auto) , Eosinophils (%) (Auto) , Basophils (%) (Auto) , Differential Total Cells Counted 100, Neutrophils % (Manual) 82H, Lymphocytes % (Manual) 9L, Monocytes % (Manual) 9, Eosinophils % (Manual) 0, Basophils % ( Manual) 0, Band Neutrophils 0, Platelet Estimate DecreasedL, Platelet Morphology Normal, Polychromasia 1+, Hypochromasia , Macrocytosis 1+, Sodium Level 138, Potassium Level 4.3, Chloride Level 102, Carbon Dioxide Level 30, Anion Gap 6, Blood Urea Nitrogen 17, Creatinine 0.9, Estimat Glomerular Filtration Rate > 60, Glucose Level 117H, Calcium Level 8.0L, Total Bilirubin 0.6, Aspartate Amino Transf (AST/SGOT) 12L, Alanine Aminotransferase (ALT/SGPT) 11L, Alkaline Phosphatase 165H, Total Protein 6.7, Albumin 2.1L, Globulin 4.6, Albumin/Globulin Ratio 0.5L 05/09/20 04:54: POC Whole Blood Glucose 113H Current Medications Medications (Trade) Dose Ordered Sig/Jori Route PRN Reason Start Time Stop Time Status Last Admin Dose Admin Acetaminophen (Tylenol) 1,000 mg Q4H PRN GT temp>100.2 or headache 04/29/20 15:45 05/29/20 15:44 05/07/20 16:06 Bupropion HCl (Wellbutrin SR) 200 mg TWICE A DAY ORAL 04/26/20 21:00 05/26/20 20:59 05/09/20 09:47 Chlorhexidine Gluconate (Kathryn-Hex 2%) 1 applic DAILY@2000 TOPIC 04/27/20 20:00 07/26/20 19:59 05/08/20 20:06 Ciprofloxacin 200 ml @ 200 mls/hr Q12HR IV 05/05/20 22:00 05/12/20 21:59 05/09/20 09:48 Citalopram Hydrobromide (CeleXA) 20 mg DAILY ORAL 04/26/20 21:00 05/27/20 08:59 05/09/20 09:48 Dextrose 1,000 ml @ 0 mls/hr Q24H PRN IV PN interrupted or unavailable 04/28/20 08:30 05/28/20 08:29 Dextrose (Dextrose 50%) 25 ml Q30M PRN IV Hypoglycemia 04/28/20 08:30 07/27/20 08:29 Dextrose (Dextrose 50%) 50 ml Q30M PRN IV Hypoglycemia 04/28/20 08:30 07/27/20 08:29 Dextrose/ Electrolytes 1,000 ml @ 10 mls/hr Q24H IV 05/09/20 10:00 05/28/20 09:59 05/09/20 09:49 Diphenhydramine HCl (Benadryl) 50 mg Q4H PRN IVP Itching/Pruritis 05/06/20 11:15 06/05/20 11:14 Fat Emulsion Intravenous 216 ml/Amino Acids/ Electrolytes/ Dextrose 1,896 ml @ 79 mls/hr Q24H IV 04/28/20 21:00 05/09/20 20:59 05/08/20 20:24 Fat Emulsion Intravenous 216 ml/Amino Acids/ Electrolytes/ Dextrose 1,896 ml @ 79 mls/hr Q24H IV 05/09/20 21:00 06/08/20 20:59 Folic Acid (Folate) 1 mg DAILY ORAL 04/27/20 10:30 05/27/20 10:29 05/09/20 09:47 Hydromorphone HCl 30 ml @ 0 mls/hr INSPECTOR AND UNLOADER protocol PRN IV For Pain 05/08/20 09:30 05/10/20 09:29 Hydromorphone HCl (Dilaudid) 0.3 mg Q4H PRN IVP Severe Breakthru Pain (>7) 05/07/20 08:15 05/14/20 08:14 05/09/20 06:02 Insulin Aspart (NovoLOG) Q6HR SUBQ 04/29/20 00:00 07/28/20 00:00 04/30/20 00:18 Lorazepam (Ativan) 1 mg Q4H PRN SL Muscle Spasm 05/09/20 09:30 05/16/20 09:29 Metoclopramide HCl (Reglan) 10 mg Q6HR IVP 05/05/20 18:00 06/04/20 17:59 05/09/20 05:36 Metronidazole 100 ml @ 100 mls/hr EVERY 6 HOURS IV 05/04/20 18:00 05/11/20 18:00 05/09/20 05:36 Micafungin Sodium 100 mg/Sodium Chloride 110 ml @ 110 mls/hr Q24H IVPB 05/08/20 00:00 05/15/20 00:00 05/08/20 23:05 Miscellaneous Medication (INSPECTOR AND UNLOADER Rate Change) 1 ea DAILY PRN MISC rate change 05/09/20 09:30 05/11/20 09:29 Miscellaneous Medication (INSPECTOR AND UNLOADER shift volume) 1 ea Q12HR@0700,1900 MISC 05/09/20 19:00 05/11/20 18:59 Naloxone HCl (Narcan) 0.1 mg Q1M PRN IVP RR<10/min OR SBP<90 mmHg 05/06/20 11:15 08/04/20 11:14 Ondansetron HCl (Zofran) 4 mg Q4H PRN IVP Nausea & Vomiting 04/29/20 15:45 05/29/20 15:44 05/08/20 04:44 Pantoprazole (Protonix) 40 mg DAILY IVP 04/30/20 09:00 05/30/20 08:59 05/09/20 09:47 Patient Own Medication (Patient's Own Med) 1 ea QHS ORAL 04/26/20 21:00 05/26/20 20:59 05/08/20 20:28 Trazodone HCl (Desyrel) 300 mg BEDTIME ORAL 04/27/20 21:00 05/27/20 20:59 05/08/20 20:28 Vancomycin HCl (Vanco pharmacy to dose) 1 ea DAILY PRN MISC Per rx protocol 05/04/20 13:15 06/03/20 13:14 Vancomycin HCl 750 mg/Sodium Chloride 275 ml @ 183.333 mls/hr Q8HR@0100,0900,1700 IVPB 05/09/20 01:00 05/14/20 00:59 05/09/20 09:48 Assessment/Plan Assessment/Plan IMPRESSION: 1. Atelectasis, right lung. 2. Postnasal drip/allergic rhinitis. 3. Status post laparotomy and lysis of adhesions. 4. Chronic pain. 5. Ulcerative colitis. DISCUSSION: The patient is on broad-spectrum antibiotics for intraabdominal abscess. I concur with their use at this time. Her respiratory status is stable. She is saturating well on room air. Afebrile. Low grade fever noted; 99.1 Zenon Montoya Omar Syed MD May 09, 2020 10:15
[2020-05-09 12:05] VITALS: BP 133/83
[2020-05-09 16:15] VITALS: BP 136/74
[2020-05-09 18:10] VITALS: BP 136/75
--- NOTE | 2020-05-09 18:14 | Infectious Diseases Prog Note ---
Assessment/Plan Assessment/Plan ASSESSMENT AND PLAN: 1. ? sepsis, leukocytosis, fevers, thrombocytopenia, ? cholecystitis, ? aspiration pna/hcap vs atelectasis (favor atelectasis) klebsiella and enterococcus abscess - s/p debridement sbo, malfunctioning Kock ileostomy - s/p surgery ileus, ? bowel obstruction fungemia risk - vancomycin, ciprofloxacin and flagyl (cefepime held secondary to thrombocytopenia) - micafungin for anti-fungal - f/u urine/blood cultures negative - continue w/u per Dr. Meadows, hem/onc and pulmonary medicine - plt transfusion - monitor labs - GI w/u in progress 2. The patient has a history of Kock pouch continent ileostomy. 3. History of ulcerative colitis. 4. History of multiple abdominal surgeries. 5. History of spine surgery. 6. History of parathyroid adenoma. 7. History of proctocolectomy. 8. History of laparotomy. 9. Anemia. 10. Thrombocytopenia. 11. Allergies to adhesive tape. 12. Social history is negative. 13. Family history is noncontributory. 14. MAR is noted. 15. Case was discussed with RN. 16. Continue treatment per Dr. Meadows and consultants. 17. I will follow. Subjective Constitutional: Reports: fever HEENT: Denies: congestion Respiratory: Denies: shortness of breath Cardiovascular: Denies: chest pain Gastrointestinal/Abdominal: Denies: nausea, vomiting Genitourinary: Reports: other - + decker Neurologic: Denies: headache Psychiatric: Denies: depression Skin: Denies: rash Hematologic: Denies: bleeding Musculoskeletal: Denies: pain Allergies: Coded Allergies: ADHESIVE TAPE (Verified Adverse Reaction, Intermediate, Rash, 08/27/19) CLEAR TAPE Objective Last 24 Hour Vital Signs Date Time Temp Pulse Resp B/P (MAP) Pulse Ox O2 Delivery O2 Flow Rate FiO2 05/09/20 16:41 97 Room Air 21 05/09/20 16:15 99.8 119 20 136/74 (94) 92 05/09/20 16:00 20 05/09/20 12:05 98.1 113 16 133/83 (100) 95 05/09/20 12:05 16 05/09/20 09:00 Room Air 05/09/20 08:00 16 05/09/20 08:00 99.2 103 96 05/09/20 03:51 101 17 95 05/09/20 03:50 98.4 101 17 123/68 (86) 95 05/08/20 23:55 102 16 92 05/08/20 23:28 99.4 102 16 124/63 (83) 92 05/08/20 21:00 Room Air 05/08/20 20:00 99.7 86 18 114/87 (96) 96 05/08/20 20:00 86 18 96 05/08/20 19:07 94 Room Air 21 Height (Feet): 5 Height (Inches): 3.00 Weight (Pounds): 139 General Appearance: no acute distress HEENT: normocephalic, atraumatic, anicteric, mucous membranes moist Respiratory/Chest: lungs clear, normal breath sounds, no respiratory distress, no accessory muscle use Cardiovascular: normal rate, regular rhythm, no gallop/murmur Abdomen: other - soft, some pain Genitourinary: other - + decker Extremities: no cyanosis Skin: no rash Neurologic/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 There is some persistent right perihilar atelectasis. The heart size is normal. Impression: Improved bilateral suprahilar interstitial infiltrates, over 2 days Abdominal US: Impression: Distended gallbladder with borderline wall thickening, but no gallstones. Significance uncertain. Mildly dilated common bile duct. May be age-related, downstream obstruction not completely excludable particularly in view of findings reported on recent CT scan. Correlate with liver function tests, consider MRCP for further evaluation if clinically indicated CT abdomen and pelvis - 04/27/20 - Impression: Dilated proximal small bowel loops, with another short segment of dilated mid small bowel, nondilated distal small bowel loops. Findings are concerning for small bowel obstruction. Given somewhat prominent mucosal enhancement, findings could also be due to enteritis. Trace ascites, possibly related to the above Postsurgical changes, as described. Note that the Decker catheter is deep within the reservoir but the reservoir is somewhat distended with material. Ectatic extrahepatic bile ducts. Suspect age-related is this is unchanged from the prior study. Correlate with liver function tests Nonspecific prominent retroperitoneal lymph nodes Findings discussed by phone with Dr. Meadows at the time of interpretation KUB - 05/08/20 - FINDINGS/IMPRESSION: Multiple, mildly prominent loops of colon which may correlate with postoperative ileus. No large volume free intraperitoneal air. Extensive suture line within the pelvis and right lower quadrant, correlate with surgical history. Midline cutaneous skin lu. The lung bases are clear. Degenerative changes of the spine. Microbiology Date/Time Source Procedure Growth Status 05/07/20 22:30 Blood Blood Culture - Preliminary NO GROWTH AFTER 24 HOURS Resulted 04/27/20 11:13 Nasopharynx SARS-CoV-2 RdRp Gene Assay - Final Complete 05/07/20 22:50 Indwelling Cath Urine Culture - Preliminary NO GROWTH Resulted 04/29/20 14:48 Abdomen Gram Stain - Final Complete 04/29/20 14:48 Aerobic Culture - Final Klebsiella Pneumoniae Enterococcus Faecalis Complete 04/29/20 14:48 Abdomen Anaerobic Culture - Final NO ANAEROBES ISOLATED Complete Microbiology Date/Time Source Procedure Growth Status 05/07/20 22:30 Blood Blood Culture - Preliminary NO GROWTH AFTER 24 HOURS Resulted 05/07/20 22:10 Blood Blood Culture - Preliminary NO GROWTH AFTER 24 HOURS Resulted 05/07/20 22:50 Indwelling Cath Urine Culture - Preliminary NO GROWTH Resulted Laboratory Tests Test 05/08/20 23:20 05/09/20 04:40 05/09/20 04:54 05/09/20 11:59 POC Whole Blood Glucose 105 MG/DL (74-106) 113 MG/DL (74-106) H 95 MG/DL (74-106) White Blood Count 10.3 K/UL (4.8-10.8) Red Blood Count 2.92 M/UL (4.20-5.40) L Hemoglobin 9.4 G/DL (12.0-16.0) L Hematocrit 28.7 % (37.0-47.0) L Mean Corpuscular Volume 98 FL (80-99) Mean Corpuscular Hemoglobin 32.3 PG (27.0-31.0) H Mean Corpuscular Hemoglobin Concent 32.9 G/DL (32.0-36.0) Red Cell Distribution Width 12.8 % (11.6-14.8) Platelet Count 34 K/UL (150-450) L Mean Platelet Volume 14.6 FL (6.5-10.1) H Neutrophils (%) (Auto) % (45.0-75.0) Lymphocytes (%) (Auto) % (20.0-45.0) Monocytes (%) (Auto) % (1.0-10.0) Eosinophils (%) (Auto) % (0.0-3.0) Basophils (%) (Auto) % (0.0-2.0) Differential Total Cells Counted 100 Neutrophils % (Manual) 82 % (45-75) H Lymphocytes % (Manual) 9 % (20-45) L Monocytes % (Manual) 9 % (1-10) Eosinophils % (Manual) 0 % (0-3) Basophils % (Manual) 0 % (0-2) Band Neutrophils 0 % (0-8) Platelet Estimate Decreased L Platelet Morphology Normal Polychromasia 1+ Hypochromasia Macrocytosis 1+ Sodium Level 138 MMOL/L (136-145) Potassium Level 4.3 MMOL/L (3.5-5.1) Chloride Level 102 MMOL/L (98-107) Carbon Dioxide Level 30 MMOL/L (21-32) Anion Gap 6 mmol/L (5-15) Blood Urea Nitrogen 17 mg/dL (7-18) Creatinine 0.9 MG/DL (0.55-1.30) Estimat Glomerular Filtration Rate > 60 mL/min (>60) Glucose Level 117 MG/DL (74-106) H Calcium Level 8.0 MG/DL (8.5-10.1) L Total Bilirubin 0.6 MG/DL (0.2-1.0) Aspartate Amino Transf (AST/SGOT) 12 U/L (15-37) L Alanine Aminotransferase (ALT/SGPT) 11 U/L (12-78) L Alkaline Phosphatase 165 U/L (46-116) H Total Protein 6.7 G/DL (6.4-8.2) Albumin 2.1 G/DL (3.4-5.0) L Globulin 4.6 g/dL Albumin/Globulin Ratio 0.5 (1.0-2.7) L Current Medications Medications (Trade) Dose Ordered Sig/Jori Route PRN Reason Start Time Stop Time Status Last Admin Dose Admin Acetaminophen (Tylenol) 1,000 mg Q4H PRN GT temp>100.2 or headache 04/29/20 15:45 05/29/20 15:44 05/07/20 16:06 Bupropion HCl (Wellbutrin SR) 200 mg TWICE A DAY ORAL 04/26/20 21:00 05/26/20 20:59 05/09/20 09:47 Chlorhexidine Gluconate (Kathryn-Hex 2%) 1 applic DAILY@2000 TOPIC 04/27/20 20:00 07/26/20 19:59 05/08/20 20:06 Ciprofloxacin 200 ml @ 200 mls/hr Q12HR IV 05/05/20 22:00 05/12/20 21:59 05/09/20 09:48 Citalopram Hydrobromide (CeleXA) 20 mg DAILY ORAL 04/26/20 21:00 05/27/20 08:59 05/09/20 09:48 Dextrose 1,000 ml @ 0 mls/hr Q24H PRN IV PN interrupted or unavailable 04/28/20 08:30 05/28/20 08:29 Dextrose (Dextrose 50%) 25 ml Q30M PRN IV Hypoglycemia 04/28/20 08:30 07/27/20 08:29 Dextrose (Dextrose 50%) 50 ml Q30M PRN IV Hypoglycemia 04/28/20 08:30 07/27/20 08:29 Dextrose/ Electrolytes 1,000 ml @ 10 mls/hr Q24H IV 05/09/20 10:00 05/28/20 09:59 05/09/20 09:49 Diphenhydramine HCl (Benadryl) 50 mg Q4H PRN IVP Itching/Pruritis 05/06/20 11:15 06/05/20 11:14 Fat Emulsion Intravenous 216 ml/Amino Acids/ Electrolytes/ Dextrose 1,896 ml @ 79 mls/hr Q24H IV 04/28/20 21:00 05/09/20 20:59 05/08/20 20:24 Fat Emulsion Intravenous 216 ml/Amino Acids/ Electrolytes/ Dextrose 1,896 ml @ 79 mls/hr Q24H IV 05/09/20 21:00 06/08/20 20:59 Folic Acid (Folate) 1 mg DAILY ORAL 04/27/20 10:30 05/27/20 10:29 05/09/20 09:47 Hydromorphone HCl 30 ml @ 0 mls/hr CERTIFIED MEDICATION TECHNICIAN protocol PRN IV For Pain 05/08/20 09:30 05/10/20 09:29 05/09/20 16:49 Hydromorphone HCl (Dilaudid) 0.3 mg Q4H PRN IVP Severe Breakthru Pain (>7) 05/07/20 08:15 05/14/20 08:14 05/09/20 14:26 Insulin Aspart (NovoLOG) Q6HR SUBQ 04/29/20 00:00 07/28/20 00:00 04/30/20 00:18 Lorazepam (Ativan) 1 mg Q4H PRN SL Muscle Spasm 05/09/20 09:30 05/16/20 09:29 Metoclopramide HCl (Reglan) 10 mg Q6HR IVP 05/05/20 18:00 06/04/20 17:59 05/09/20 12:18 Metronidazole 100 ml @ 100 mls/hr EVERY 6 HOURS IV 05/04/20 18:00 05/11/20 18:00 05/09/20 12:18 Micafungin Sodium 100 mg/Sodium Chloride 110 ml @ 110 mls/hr Q24H IVPB 05/08/20 00:00 05/15/20 00:00 05/08/20 23:05 Miscellaneous Medication (CERTIFIED MEDICATION TECHNICIAN Rate Change) 1 ea DAILY PRN MISC rate change 05/09/20 09:30 05/11/20 09:29 Miscellaneous Medication (CERTIFIED MEDICATION TECHNICIAN shift volume) 1 ea Q12HR@0700,1900 MISC 05/09/20 19:00 05/11/20 18:59 Naloxone HCl (Narcan) 0.1 mg Q1M PRN IVP RR<10/min OR SBP<90 mmHg 05/06/20 11:15 08/04/20 11:14 Ondansetron HCl (Zofran) 4 mg Q4H PRN IVP Nausea & Vomiting 04/29/20 15:45 05/29/20 15:44 05/08/20 04:44 Pantoprazole (Protonix) 40 mg DAILY IVP 04/30/20 09:00 05/30/20 08:59 05/09/20 09:47 Patient Own Medication (Patient's Own Med) 1 ea QHS ORAL 04/26/20 21:00 05/26/20 20:59 05/08/20 20:28 Trazodone HCl (Desyrel) 300 mg BEDTIME ORAL 04/27/20 21:00 05/27/20 20:59 05/08/20 20:28 Vancomycin HCl (Vanco pharmacy to dose) 1 ea DAILY PRN MISC Per rx protocol 05/04/20 13:15 06/03/20 13:14 Vancomycin HCl 750 mg/Sodium Chloride 275 ml @ 183.333 mls/hr Q8HR@0100,0900,1700 IVPB 05/09/20 01:00 05/14/20 00:59 05/09/20 17:13 Osmin Bermudez MD May 09, 2020 18:14
[2020-05-09 20:00] VITALS: BP 135/75
[2020-05-09] MEDS: Dyna-Hex 2% Top Sol 2oz TOPIC SCH (20:06)
[2020-05-09] MEDS: MYRBETRIQ 50 MG ORAL SCH (20:06)
[2020-05-09] MEDS: TraZODone 100mg tab ORAL SCH (20:06)
[2020-05-09] MEDS: Fat Emulsion Iv 20% 216 ML in Tpn 1,680 ML IV SCH (20:07)
[2020-05-09] MEDS: Acetaminophen 650mg/20.3ml GT PRN (21:19)
[2020-05-09] MEDS: Micafungin 100 MG in NS 110 ML IVPB SCH (23:28)
[2020-05-10] VITALS: BP 116/64
[2020-05-10] MEDS: Vancomycin 750 MG in NS 275 ML IVPB SCH ×3 (00:12→17:05)
[2020-05-10 04:00] VITALS: BP 125/69
[2020-05-10] MEDS: Hydromorphone 0.5mg/0.5ml inj IVP PRN (04:13)
[2020-05-10] MEDS: Metoclopramide 10mg/2ml Inj IVP SCH ×4 (05:20→23:16)
[2020-05-10 05:26] LABS: HEMATOCRIT 30.8 % (37.0-47.0); HEMOGLOBIN 10.1 G/DL (12.0-16.0); MEAN CORPUSCULAR VOLUME 98 FL (80-99); PLATELET COUNT 73 K/UL (150-450); RED BLOOD COUNT 3.15 M/UL (4.20-5.40); RED CELL DISTRIBUTION WIDTH 12.5 % (11.6-14.8); WHITE BLOOD COUNT 11.9 K/UL (4.8-10.8)
[2020-05-10 05:40] LABS: ALANINE AMINOTRANSFERASE 9 U/L (12-78); ALBUMIN 2.2 G/DL (3.4-5.0); ALBUMIN/GLOBULIN RATIO 0.5 (1.0-2.7); ALKALINE PHOSPHATASE 184 U/L (46-116); ANION GAP 8 mmol/L (5-15); ASPARTATE AMINO TRANSFERASE 13 U/L (15-37); BILIRUBIN,TOTAL 0.8 MG/DL (0.2-1.0); BLOOD UREA NITROGEN 17 mg/dL (7-18); CALCIUM 8.5 MG/DL (8.5-10.1); CARBON DIOXIDE 29 MMOL/L (21-32); CHLORIDE 101 MMOL/L (98-107); CREATININE 0.8 MG/DL (0.55-1.30); PHOSPHORUS 3.2 MG/DL (2.5-4.9); POTASSIUM 3.7 MMOL/L (3.5-5.1); SODIUM 138 MMOL/L (136-145)
[2020-05-10] MEDS: NovoLOG Insulin Flexpen SUBQ SCH ×5 (06:00→23:16)
[2020-05-10] MEDS: PCA shift volume MISC SCH ×2 (07:24→19:17)
[2020-05-10 08:00] VITALS: BP 118/63
--- NOTE | 2020-05-10 08:07 | Pulmonology Progress Note ---
Subjective Interval Events: None new Constitutional: Reports: fever HEENT: Repors: no symptoms Respiratory: Reports: no symptoms Cardiovascular: Reports: no symptoms Gastrointestinal/Abdominal: Denies: nausea, vomiting Psychiatric: Denies: depression Skin: Denies: rash Musculoskeletal: Denies: pain Allergies: Coded Allergies: ADHESIVE TAPE (Verified Adverse Reaction, Intermediate, Rash, 08/27/19) CLEAR TAPE Objective Last 24 Hour Vital Signs Date Time Temp Pulse Resp B/P (MAP) Pulse Ox O2 Delivery O2 Flow Rate FiO2 05/10/20 08:05 96 Room Air 21 05/10/20 04:00 98.8 88 18 125/69 (87) 93 05/10/20 04:00 88 18 93 05/10/20 00:00 98.5 85 18 116/64 (81) 93 05/10/20 00:00 85 18 93 05/09/20 22:19 98.8 05/09/20 21:00 98.8 05/09/20 21:00 Room Air 05/09/20 20:00 95 Room Air 21 05/09/20 20:00 100.5 99 22 135/75 (95) 94 05/09/20 20:00 18 05/09/20 18:10 99.2 96 18 136/75 (95) 05/09/20 16:41 97 Room Air 21 05/09/20 16:15 99.8 119 20 136/74 (94) 92 05/09/20 16:00 20 05/09/20 12:05 98.1 113 16 133/83 (100) 95 05/09/20 12:05 16 05/09/20 09:00 Room Air Intake and Output 05/09/20 05/10/20 19:00 07:00 Intake Total 2569 ml 1674 ml Output Total 3070 ml 2080 ml Balance -501 ml -406 ml IV Total 1859 ml 1674 ml Blood Product 710 ml Output Urine Total 2950 ml 1380 ml Other 120 ml 700 ml General Appearance: no acute distress HEENT: normocephalic Respiratory: chest wall non-tender, lungs clear Cardiovascular: normal peripheral pulses Abdomen: normal bowel sounds Microbiology Date/Time Source Procedure Growth Status 05/07/20 22:30 Blood Blood Culture - Preliminary NO GROWTH AFTER 48 HOURS Resulted 05/07/20 22:10 Blood Blood Culture - Preliminary NO GROWTH AFTER 48 HOURS Resulted 05/07/20 22:50 Indwelling Cath Urine Culture - Preliminary NO GROWTH AFTER 24 HOURS Resulted Laboratory Tests 05/09/20 11:59: POC Whole Blood Glucose 95 05/09/20 18:22: POC Whole Blood Glucose 122H 05/09/20 23:37: POC Whole Blood Glucose 130H 05/10/20 05:00: White Blood Count 11.9H, Red Blood Count 3.15L, Hemoglobin 10.1L, Hematocrit 30.8L, Mean Corpuscular Volume 98, Mean Corpuscular Hemoglobin 32.1H, Mean Corpuscular Hemoglobin Concent 32.9, Red Cell Distribution Width 12.5, Platelet Count 73#L, Mean Platelet Volume 12.4H, Neutrophils (%) (Auto) , Lymphocytes (% ) (Auto) , Monocytes (%) (Auto) , Eosinophils (%) (Auto) , Basophils (%) (Auto) , Differential Total Cells Counted 100, Neutrophils % (Manual) 84H, Lymphocytes % (Manual) 12L, Monocytes % (Manual) 4, Eosinophils % (Manual) 0, Basophils % ( Manual) 0, Band Neutrophils 0, Platelet Estimate DecreasedL, Platelet Morphology Normal, Macrocytosis 1+, Sodium Level 138, Potassium Level 3.7, Chloride Level 101, Carbon Dioxide Level 29, Anion Gap 8, Blood Urea Nitrogen 17 , Creatinine 0.8, Estimat Glomerular Filtration Rate > 60, Glucose Level 134H, Calcium Level 8.5, Phosphorus Level 3.2, Magnesium Level 1.4L, Total Bilirubin 0.8, Aspartate Amino Transf (AST/SGOT) 13L, Alanine Aminotransferase (ALT/SGPT) 9L, Alkaline Phosphatase 184H, Total Protein 7.0, Albumin 2.2L, Globulin 4.8, Albumin/Globulin Ratio 0.5L 05/10/20 05:23: POC Whole Blood Glucose 132H Current Medications Medications (Trade) Dose Ordered Sig/Jori Route PRN Reason Start Time Stop Time Status Last Admin Dose Admin Acetaminophen (Tylenol) 1,000 mg Q4H PRN GT temp>100.2 or headache 04/29/20 15:45 05/29/20 15:44 05/09/20 21:19 Bupropion HCl (Wellbutrin SR) 200 mg TWICE A DAY ORAL 04/26/20 21:00 05/26/20 20:59 05/09/20 18:12 Chlorhexidine Gluconate (Kathryn-Hex 2%) 1 applic DAILY@2000 TOPIC 04/27/20 20:00 07/26/20 19:59 05/09/20 20:06 Ciprofloxacin 200 ml @ 200 mls/hr Q12HR IV 05/05/20 22:00 05/12/20 21:59 05/09/20 20:06 Citalopram Hydrobromide (CeleXA) 20 mg DAILY ORAL 04/26/20 21:00 05/27/20 08:59 05/09/20 09:48 Dextrose 1,000 ml @ 0 mls/hr Q24H PRN IV PN interrupted or unavailable 04/28/20 08:30 05/28/20 08:29 Dextrose (Dextrose 50%) 25 ml Q30M PRN IV Hypoglycemia 04/28/20 08:30 07/27/20 08:29 Dextrose (Dextrose 50%) 50 ml Q30M PRN IV Hypoglycemia 04/28/20 08:30 07/27/20 08:29 Dextrose/ Electrolytes 1,000 ml @ 10 mls/hr Q24H IV 05/09/20 10:00 05/28/20 09:59 05/09/20 09:49 Diphenhydramine HCl (Benadryl) 50 mg Q4H PRN IVP Itching/Pruritis 05/06/20 11:15 06/05/20 11:14 Fat Emulsion Intravenous 216 ml/Amino Acids/ Electrolytes/ Dextrose 1,896 ml @ 79 mls/hr Q24H IV 05/09/20 21:00 06/08/20 20:59 05/09/20 20:07 Folic Acid (Folate) 1 mg DAILY ORAL 04/27/20 10:30 05/27/20 10:29 05/09/20 09:47 Hydromorphone HCl 30 ml @ 0 mls/hr MACHINE SANDER protocol PRN IV For Pain 05/08/20 09:30 05/10/20 09:29 05/09/20 16:49 Hydromorphone HCl (Dilaudid) 0.3 mg Q4H PRN IVP Severe Breakthru Pain (>7) 05/07/20 08:15 05/14/20 08:14 05/10/20 04:13 Insulin Aspart (NovoLOG) Q6HR SUBQ 04/29/20 00:00 07/28/20 00:00 04/30/20 00:18 Lorazepam (Ativan) 1 mg Q4H PRN SL Muscle Spasm 05/09/20 09:30 05/16/20 09:29 Metoclopramide HCl (Reglan) 10 mg Q6HR IVP 05/05/20 18:00 06/04/20 17:59 05/10/20 05:20 Metronidazole 100 ml @ 100 mls/hr Q8H IVPB 05/10/20 02:00 05/17/20 01:59 05/10/20 01:07 Micafungin Sodium 100 mg/Sodium Chloride 110 ml @ 110 mls/hr Q24H IVPB 05/08/20 00:00 05/15/20 00:00 05/09/20 23:28 Miscellaneous Medication (MACHINE SANDER Rate Change) 1 ea DAILY PRN MISC rate change 05/09/20 09:30 05/11/20 09:29 Miscellaneous Medication (MACHINE SANDER shift volume) 1 ea Q12HR@0700,1900 MISC 05/09/20 19:00 05/11/20 18:59 05/10/20 07:24 Naloxone HCl (Narcan) 0.1 mg Q1M PRN IVP RR<10/min OR SBP<90 mmHg 05/06/20 11:15 08/04/20 11:14 Ondansetron HCl (Zofran) 4 mg Q4H PRN IVP Nausea & Vomiting 04/29/20 15:45 05/29/20 15:44 05/08/20 04:44 Pantoprazole (Protonix) 40 mg DAILY IVP 04/30/20 09:00 05/30/20 08:59 05/09/20 09:47 Patient Own Medication (Patient's Own Med) 1 ea QHS ORAL 04/26/20 21:00 05/26/20 20:59 05/09/20 20:06 Trazodone HCl (Desyrel) 300 mg BEDTIME ORAL 04/27/20 21:00 05/27/20 20:59 05/09/20 20:06 Vancomycin HCl (Vanco pharmacy to dose) 1 ea DAILY PRN MISC Per rx protocol 05/04/20 13:15 8/5/20 13:14 Vancomycin HCl 750 mg/Sodium Chloride 275 ml @ 183.333 mls/hr Q8HR@0100,0900,1700 IVPB 05/09/20 01:00 05/14/20 00:59 05/10/20 00:12 Assessment/Plan Assessment/Plan IMPRESSION: 1. Atelectasis, right lung. 2. Postnasal drip/allergic rhinitis. 3. Status post laparotomy and lysis of adhesions. 4. Chronic pain. 5. Ulcerative colitis. DISCUSSION: The patient is on broad-spectrum antibiotics for intraabdominal abscess. I concur with their use at this time. Her respiratory status is stable. She is saturating well on room air. Afebrile. Low grade fever again yesterday 100.5 Zenon Montoya Omar Syed MD May 10, 2020 08:07
[2020-05-10] MEDS: Citalopram Hydrobromide 10mg Tab ORAL SCH (08:52)
[2020-05-10] MEDS: BuPROPion SR 100mg tab ORAL SCH ×2 (08:57→17:05)
[2020-05-10] MEDS: Pantoprazole Inj IVP SCH (08:58)
[2020-05-10] MEDS ORDERED: PCA HYDROmorphone 1mg/ml 30 ML IV PRN ×2 (10:01)
[2020-05-10] MEDS ORDERED: Hydromorphone 0.5mg/0.5ml inj IVP PRN (10:02)
--- NOTE | 2020-05-10 10:19 | General Progress Note ---
Progress Note Progress Note T max 100.5 Recent cultures negative. Still c/o abdominal pain Abdomen with minimal soft distention, incision clean, stoma stable Urine 4330 Gastrostomy 820 bilious no bleeding Kock pouch 40cc bloody - no enteric fluid WBC up 11,900 Hgb up 10.1 Platelets up 73,000 Mg 1.4 albumin up 2.2 Imp: Persistent ileus vs. SBO - ??intramural hematoma at anastomosis due to severe post-op thrombocytopenia Plan; d/c urinary Busch continue npo, TPN, gastrostomy to suction, Kock pouch catheter to drainage Mg infusions Kock Pouch pouchogram in AM Lalo Meadows MD May 10, 2020 10:19
[2020-05-10] MEDS: D5 1/2NS w/KCl 20mEq 1,000 ML IV SCH (10:24)
[2020-05-10] MEDS: Magnesium Sulfate 1gm/100ml IVPB SCH ×4 (10:50→14:20)
[2020-05-10 12:00] VITALS: BP 103/58
--- NOTE | 2020-05-10 13:03 | Hematology/Onc Progress Note ---
Assessment/Plan Assessment/Plan ASSESSMENT AND PLAN: # SEVERE Thrombocytopenia that is severe, on admission, plt was wnl and now dropped to 8K The patient comes in with high-grade bowel obstruction and malfunction Kock pouch continent ileostomy. The patient is status post surgery including release of the bowel obstruction. The patient was noted to have pus in small intra-abdominal abscess. It was growing out Klebsiella pneumoniae and Enterococcus. The patient has a low platele count and could be secondary to cefepime, which the patient is on. --> cefepime has been stopped, likely culprti --> as per ID antibiotics, vancomycin, Cipro, and Flagyl. --> dic panel has been ordered --> peripheral smear has been ordered as well --> hapto neg and fibrinogen 738 --> hold off steriods --> no heparin or lovenox administered recently --> duplex lower ext ordered-->neg for dvt --> transfuse 2 units plt 05/07 --> plt trend 8k-->6k->34-->73 --> HIT antbody test ordered --> ct is wnl, less likely aHUS, also no schistocytes on smear noted --> also less likely iTP but is in differential # Anemia likely due to hemoldilution --> likely hemodilutional and chronic disease # The patient has a history of Kock pouch continent ileostomy. # History of ulcerative colitis. # History of multiple abdominal surgeries. # History of spine surgery. # History of parathyroid adenoma. # History of proctocolectomy. # History of laparotomy. The timing of this note does not necessarily reflect the time of the patient was seen. Greatly appreciate consultation. Subjective Cardiovascular: Denies: no symptoms, chest pain, edema, irregular heart rate, lightheadedness, palpitations, syncope, other Respiratory: Denies: no symptoms, cough, shortness of breath, SOB with excertion, SOB at rest, sputum, wheezing, other Gastrointestinal/Abdominal: Denies: no symptoms, abdomen distended, abdominal pain, black stools, tarry stools, blood in stool, constipated, diarrhea, difficulty swallowing, nausea, poor appetite, poor fluid intake, rectal bleeding , vomiting, other Genitourinary: Denies: no symptoms, burning, discharge, frequency, flank pain, hematuria, incontinence, pain, urgency, other Neurologic/Psychiatric: Denies: no symptoms, anxiety, depressed, emotional problems, headache, numbness, paresthesia, pre-existing deficit, seizure, tingling, tremors, weakness, other Endocrine: Denies: no symptoms, excessive sweating, flushing, intolerance to cold, intolerance to heat, increased hunger, increased thirst, increased urine, unexplained weight gain, unexplained weight loss, other Allergies: Coded Allergies: ADHESIVE TAPE (Verified Adverse Reaction, Intermediate, Rash, 08/27/19) CLEAR TAPE Subjective 05/08 gtube connected, plts 6k, ordered for transfusion, consider ahus as well, will get hit ab test 05/10 plt is 73, no bleeding, feelingbetter, holding off transfusion Objective Objective Current Medications Medications (Trade) Dose Ordered Sig/Jori Route PRN Reason Start Time Stop Time Status Last Admin Dose Admin Acetaminophen (Tylenol) 1,000 mg Q4H PRN GT temp>100.2 or headache 04/29/20 15:45 05/29/20 15:44 05/09/20 21:19 Bupropion HCl (Wellbutrin SR) 200 mg TWICE A DAY ORAL 04/26/20 21:00 05/26/20 20:59 05/10/20 08:57 Chlorhexidine Gluconate (Kathryn-Hex 2%) 1 applic DAILY@1999 TOPIC 04/27/20 20:00 07/26/20 19:59 05/09/20 20:06 Ciprofloxacin 200 ml @ 200 mls/hr Q12HR IV 05/05/20 22:00 05/12/20 21:59 05/10/20 08:51 Citalopram Hydrobromide (CeleXA) 20 mg DAILY ORAL 04/26/20 21:00 05/27/20 08:59 05/10/20 08:52 Dextrose 1,000 ml @ 0 mls/hr Q24H PRN IV PN interrupted or unavailable 04/28/20 08:30 05/28/20 08:29 Dextrose (Dextrose 50%) 25 ml Q30M PRN IV Hypoglycemia 04/28/20 08:30 07/27/20 08:29 Dextrose (Dextrose 50%) 50 ml Q30M PRN IV Hypoglycemia 04/28/20 08:30 07/27/20 08:29 Dextrose/ Electrolytes 1,000 ml @ 10 mls/hr Q24H IV 05/09/20 10:00 05/28/20 09:59 05/10/20 10:24 Diphenhydramine HCl (Benadryl) 50 mg Q4H PRN IVP Itching/Pruritis 05/06/20 11:15 06/05/20 11:14 Fat Emulsion Intravenous 216 ml/Amino Acids/ Electrolytes/ Dextrose 1,896 ml @ 79 mls/hr Q24H IV 05/09/20 21:00 06/08/20 20:59 05/09/20 20:07 Folic Acid (Folate) 1 mg DAILY ORAL 04/27/20 10:30 05/27/20 10:29 05/10/20 08:53 Hydromorphone HCl 30 ml @ 0 mls/hr ELASTIC ASSEMBLER protocol PRN IV For Pain 05/10/20 10:01 05/12/20 10:00 Hydromorphone HCl (Dilaudid) 0.2 mg Q4H PRN IVP Severe Breakthru Pain (>7) 05/10/20 10:02 05/17/20 10:01 Insulin Aspart (NovoLOG) Q6HR SUBQ 04/29/20 00:00 07/28/20 00:00 05/10/20 12:15 Lorazepam (Ativan) 1 mg Q4H PRN SL Muscle Spasm 05/09/20 09:30 05/16/20 09:29 Magnesium Sulfate 100 ml @ 100 mls/hr Q1H IVPB 05/10/20 09:45 05/10/20 13:44 05/10/20 11:56 Metoclopramide HCl (Reglan) 10 mg Q6HR IVP 05/05/20 18:00 06/04/20 17:59 05/10/20 11:56 Metronidazole 100 ml @ 100 mls/hr Q8H IVPB 05/10/20 02:00 05/17/20 01:59 05/10/20 10:24 Micafungin Sodium 100 mg/Sodium Chloride 110 ml @ 110 mls/hr Q24H IVPB 05/08/20 00:00 05/15/20 00:00 05/09/20 23:28 Miscellaneous Medication (ELASTIC ASSEMBLER Rate Change) 1 ea DAILY PRN MISC rate change 05/09/20 09:30 05/12/20 18:00 Miscellaneous Medication (ELASTIC ASSEMBLER shift volume) 1 ea Q12HR@0700,1900 MISC 05/09/20 19:00 05/12/20 18:59 05/10/20 07:24 Naloxone HCl (Narcan) 0.1 mg Q1M PRN IVP RR<10/min OR SBP<90 mmHg 05/06/20 11:15 08/04/20 11:14 Ondansetron HCl (Zofran) 4 mg Q4H PRN IVP Nausea & Vomiting 04/29/20 15:45 05/29/20 15:44 05/08/20 04:44 Pantoprazole (Protonix) 40 mg DAILY IVP 04/30/20 09:00 05/30/20 08:59 05/10/20 08:58 Patient Own Medication (Patient's Own Med) 1 ea QHS ORAL 04/26/20 21:00 05/26/20 20:59 05/09/20 20:06 Trazodone HCl (Desyrel) 300 mg BEDTIME ORAL 04/27/20 21:00 05/27/20 20:59 05/09/20 20:06 Vancomycin HCl ([facility] pharmacy to dose) 1 ea DAILY PRN MISC Per rx protocol 05/04/20 13:15 06/03/20 13:14 Vancomycin HCl 750 mg/Sodium Chloride 275 ml @ 183.333 mls/hr Q8HR@0100,0900,1700 IVPB 05/09/20 01:00 05/14/20 00:59 05/10/20 09:00 Last 24 Hour Vital Signs Date Time Temp Pulse Resp B/P (MAP) Pulse Ox O2 Delivery O2 Flow Rate FiO2 05/10/20 12:00 18 05/10/20 12:00 98.6 90 18 103/58 (73) 94 05/10/20 09:00 Room Air 05/10/20 08:05 96 Room Air 21 05/10/20 08:00 99.1 95 18 118/63 (81) 93 05/10/20 08:00 18 05/10/20 04:00 98.8 88 18 125/69 (87) 93 05/10/20 04:00 88 18 93 05/10/20 00:00 98.5 85 18 116/64 (81) 93 05/10/20 00:00 85 18 93 05/09/20 22:19 98.8 05/09/20 21:00 98.8 05/09/20 21:00 Room Air 05/09/20 20:00 95 Room Air 21 05/09/20 20:00 100.5 99 22 135/75 (95) 94 05/09/20 20:00 18 05/09/20 18:10 99.2 96 18 136/75 (95) 05/09/20 16:41 97 Room Air 21 05/09/20 16:15 99.8 119 20 136/74 (94) 92 05/09/20 16:00 20 05/09/20 12:05 98.1 113 16 133/83 (100) 95 05/09/20 12:05 16 05/09/20 09:00 Room Air 05/09/20 08:00 16 05/09/20 08:00 99.2 103 96 05/09/20 03:51 101 17 95 05/09/20 03:50 98.4 101 17 123/68 (86) 95 05/08/20 23:55 102 16 92 05/08/20 23:28 99.4 102 16 124/63 (83) 92 05/08/20 21:00 Room Air 05/08/20 20:00 99.7 86 18 114/87 (96) 96 05/08/20 20:00 86 18 96 05/08/20 19:07 94 Room Air 21 05/08/20 16:00 99.1 102 18 139/28 (65) 96 05/08/20 16:00 18 Intake and Output 05/09/20 05/10/20 19:00 07:00 Intake Total 2569 ml 1674 ml Output Total 3070 ml 2080 ml Balance -501 ml -406 ml IV Total 1859 ml 1674 ml Blood Product 710 ml Output Urine Total 2950 ml 1380 ml Other 120 ml 700 ml Labs Test 05/07/20 18:16 05/07/20 22:50 05/07/20 23:58 05/08/20 04:50 Urine Color Pale yellow Urine Appearance Clear Urine pH 7 (4.5-8.0) Urine Specific [place] 1.010 (1.005-1.035) Urine Protein Negative (NEGATIVE) Urine Glucose (UA) Negative (NEGATIVE) Urine Ketones Negative (NEGATIVE) Urine Blood 2+ (NEGATIVE) Urine Nitrite Negative (NEGATIVE) Urine Bilirubin Negative (NEGATIVE) Urine Urobilinogen Normal MG/DL (0.0-1.0) Urine Leukocyte Esterase 1+ (NEGATIVE) Urine RBC 2-4 /HPF (0 - 2) Urine WBC 0-2 /HPF (0 - 2) Urine Squamous Epithelial Cells Few /LPF (NONE/OCC) Urine Bacteria None /HPF (NONE) POC Whole Blood Glucose 131 MG/DL (74-106) White Blood Count 10.3 K/UL (4.8-10.8) Red Blood Count 3.21 M/UL (4.20-5.40) Hemoglobin 10.3 G/DL (12.0-16.0) Hematocrit 31.5 % (37.0-47.0) Mean Corpuscular Volume 98 FL (80-99) Mean Corpuscular Hemoglobin 32.0 PG (27.0-31.0) Mean Corpuscular Hemoglobin Concent 32.6 G/DL (32.0-36.0) Red Cell Distribution Width 12.7 % (11.6-14.8) Platelet Count 6 K/UL (150-450) Mean Platelet Volume 14.4 FL (6.5-10.1) Neutrophils (%) (Auto) % (45.0-75.0) Lymphocytes (%) (Auto) % (20.0-45.0) Monocytes (%) (Auto) % (1.0-10.0) Eosinophils (%) (Auto) % (0.0-3.0) Basophils (%) (Auto) % (0.0-2.0) Differential Total Cells Counted 100 Neutrophils % (Manual) 84 % (45-75) Lymphocytes % (Manual) 9 % (20-45) Monocytes % (Manual) 7 % (1-10) Eosinophils % (Manual) 0 % (0-3) Basophils % (Manual) 0 % (0-2) Band Neutrophils 0 % (0-8) Platelet Estimate Decreased Platelet Morphology Normal Hypochromasia 1+ Anisocytosis 1+ Sodium Level 139 MMOL/L (136-145) Potassium Level 4.0 MMOL/L (3.5-5.1) Chloride Level 103 MMOL/L (98-107) Carbon Dioxide Level 31 MMOL/L (21-32) Anion Gap 6 mmol/L (5-15) Blood Urea Nitrogen 13 mg/dL (7-18) Creatinine 0.9 MG/DL (0.55-1.30) Estimat Glomerular Filtration Rate > 60 mL/min (>60) Glucose Level 134 MG/DL (74-106) Calcium Level 7.8 MG/DL (8.5-10.1) Phosphorus Level 2.9 MG/DL (2.5-4.9) Magnesium Level 2.1 MG/DL (1.8-2.4) Total Bilirubin 0.5 MG/DL (0.2-1.0) Aspartate Amino Transf (AST/SGOT) 15 U/L (15-37) Alanine Aminotransferase (ALT/SGPT) 7 U/L (12-78) Alkaline Phosphatase 151 U/L (46-116) Total Protein 6.4 G/DL (6.4-8.2) Albumin 1.9 G/DL (3.4-5.0) Globulin 4.5 g/dL Albumin/Globulin Ratio 0.4 (1.0-2.7) Test 05/08/20 04:52 05/08/20 05:45 05/08/20 12:57 05/08/20 17:25 POC Whole Blood Glucose 136 MG/DL (74-106) White Blood Count 11.2 K/UL (4.8-10.8) Red Blood Count 3.08 M/UL (4.20-5.40) Hemoglobin 9.9 G/DL (12.0-16.0) Hematocrit 30.2 % (37.0-47.0) Mean Corpuscular Volume 98 FL (80-99) Mean Corpuscular Hemoglobin 32.2 PG (27.0-31.0) Mean Corpuscular Hemoglobin Concent 32.8 G/DL (32.0-36.0) Red Cell Distribution Width 13.5 % (11.6-14.8) Platelet Count 61 K/UL (150-450) Mean Platelet Volume 11.4 FL (6.5-10.1) Neutrophils (%) (Auto) 84.8 % (45.0-75.0) Lymphocytes (%) (Auto) 7.7 % (20.0-45.0) Monocytes (%) (Auto) 6.6 % (1.0-10.0) Eosinophils (%) (Auto) 0.0 % (0.0-3.0) Basophils (%) (Auto) 0.9 % (0.0-2.0) Test 05/08/20 17:41 05/08/20 23:20 05/09/20 04:40 05/09/20 04:54 POC Whole Blood Glucose 104 MG/DL (74-106) 105 MG/DL (74-106) 113 MG/DL (74-106) White Blood Count 10.3 K/UL (4.8-10.8) Red Blood Count 2.92 M/UL (4.20-5.40) Hemoglobin 9.4 G/DL (12.0-16.0) Hematocrit 28.7 % (37.0-47.0) Mean Corpuscular Volume 98 FL (80-99) Mean Corpuscular Hemoglobin 32.3 PG (27.0-31.0) Mean Corpuscular Hemoglobin Concent 32.9 G/DL (32.0-36.0) Red Cell Distribution Width 12.8 % (11.6-14.8) Platelet Count 34 K/UL (150-450) Mean Platelet Volume 14.6 FL (6.5-10.1) Neutrophils (%) (Auto) % (45.0-75.0) Lymphocytes (%) (Auto) % (20.0-45.0) Monocytes (%) (Auto) % (1.0-10.0) Eosinophils (%) (Auto) % (0.0-3.0) Basophils (%) (Auto) % (0.0-2.0) Differential Total Cells Counted 100 Neutrophils % (Manual) 82 % (45-75) Lymphocytes % (Manual) 9 % (20-45) Monocytes % (Manual) 9 % (1-10) Eosinophils % (Manual) 0 % (0-3) Basophils % (Manual) 0 % (0-2) Band Neutrophils 0 % (0-8) Platelet Estimate Decreased Platelet Morphology Normal Polychromasia 1+ Hypochromasia Macrocytosis 1+ Sodium Level 138 MMOL/L (136-145) Potassium Level 4.3 MMOL/L (3.5-5.1) Chloride Level 102 MMOL/L (98-107) Carbon Dioxide Level 30 MMOL/L (21-32) Anion Gap 6 mmol/L (5-15) Blood Urea Nitrogen 17 mg/dL (7-18) Creatinine 0.9 MG/DL (0.55-1.30) Estimat Glomerular Filtration Rate > 60 mL/min (>60) Glucose Level 117 MG/DL (74-106) Calcium Level 8.0 MG/DL (8.5-10.1) Total Bilirubin 0.6 MG/DL (0.2-1.0) Aspartate Amino Transf (AST/SGOT) 12 U/L (15-37) Alanine Aminotransferase (ALT/SGPT) 11 U/L (12-78) Alkaline Phosphatase 165 U/L (46-116) Total Protein 6.7 G/DL (6.4-8.2) Albumin 2.1 G/DL (3.4-5.0) Globulin 4.6 g/dL Albumin/Globulin Ratio 0.5 (1.0-2.7) Test 05/09/20 11:59 05/09/20 18:22 05/09/20 23:37 05/10/20 05:00 POC Whole Blood Glucose 95 MG/DL (74-106) 122 MG/DL (74-106) 130 MG/DL (74-106) White Blood Count 11.9 K/UL (4.8-10.8) Red Blood Count 3.15 M/UL (4.20-5.40) Hemoglobin 10.1 G/DL (12.0-16.0) Hematocrit 30.8 % (37.0-47.0) Mean Corpuscular Volume 98 FL (80-99) Mean Corpuscular Hemoglobin 32.1 PG (27.0-31.0) Mean Corpuscular Hemoglobin Concent 32.9 G/DL (32.0-36.0) Red Cell Distribution Width 12.5 % (11.6-14.8) Platelet Count 73 K/UL (150-450) Mean Platelet Volume 12.4 FL (6.5-10.1) Neutrophils (%) (Auto) % (45.0-75.0) Lymphocytes (%) (Auto) % (20.0-45.0) Monocytes (%) (Auto) % (1.0-10.0) Eosinophils (%) (Auto) % (0.0-3.0) Basophils (%) (Auto) % (0.0-2.0) Differential Total Cells Counted 100 Neutrophils % (Manual) 84 % (45-75) Lymphocytes % (Manual) 12 % (20-45) Monocytes % (Manual) 4 % (1-10) Eosinophils % (Manual) 0 % (0-3) Basophils % (Manual) 0 % (0-2) Band Neutrophils 0 % (0-8) Platelet Estimate Decreased Platelet Morphology Normal Macrocytosis 1+ Sodium Level 138 MMOL/L (136-145) Potassium Level 3.7 MMOL/L (3.5-5.1) Chloride Level 101 MMOL/L (98-107) Carbon Dioxide Level 29 MMOL/L (21-32) Anion Gap 8 mmol/L (5-15) Blood Urea Nitrogen 17 mg/dL (7-18) Creatinine 0.8 MG/DL (0.55-1.30) Estimat Glomerular Filtration Rate > 60 mL/min (>60) Glucose Level 134 MG/DL (74-106) Calcium Level 8.5 MG/DL (8.5-10.1) Phosphorus Level 3.2 MG/DL (2.5-4.9) Magnesium Level 1.4 MG/DL (1.8-2.4) Total Bilirubin 0.8 MG/DL (0.2-1.0) Aspartate Amino Transf (AST/SGOT) 13 U/L (15-37) Alanine Aminotransferase (ALT/SGPT) 9 U/L (12-78) Alkaline Phosphatase 184 U/L (46-116) Total Protein 7.0 G/DL (6.4-8.2) Albumin 2.2 G/DL (3.4-5.0) Globulin 4.8 g/dL Albumin/Globulin Ratio 0.5 (1.0-2.7) Test 05/10/20 05:23 05/10/20 12:09 POC Whole Blood Glucose 132 MG/DL (74-106) 140 MG/DL (74-106) Height (Feet): 5 Height (Inches): 3.00 Weight (Pounds): 139 Objective Physical Exam: Vitals: reviewed General: NAD HEENT: nc, at Neck: supple Chest: clear breath sounds bilaterally Cardiovascular: RRR, no s3, s4 Abdomen: soft, nontender, nd ++gtube, Kouch pouch ++ midline scar site is c/d/i Extremities: no cce, normal range of motion Neuro: alert and oriented Cecilio Grey MD May 10, 2020 13:03
[2020-05-10 16:00] VITALS: BP 115/62
[2020-05-10 20:00] VITALS: BP 120/73
[2020-05-10] MEDS: MYRBETRIQ 50 MG ORAL SCH (20:45)
[2020-05-10] MEDS: TraZODone 100mg tab ORAL SCH (20:45)
[2020-05-10] MEDS: Dyna-Hex 2% Top Sol 2oz TOPIC SCH (20:45)
[2020-05-10] MEDS: Acetaminophen 650mg/20.3ml GT PRN (20:46)
[2020-05-10] MEDS: Fat Emulsion Iv 20% 216 ML in Tpn 1,680 ML IV SCH (20:48)
[2020-05-10] MEDS: Micafungin 100 MG in NS 110 ML IVPB SCH (23:15)
[2020-05-11] VITALS (7 sets, daily range): BP systolic 98–135; BP diastolic 55–82
[2020-05-11] MEDS: Vancomycin 750 MG in NS 275 ML IVPB SCH ×3 (01:02→16:37)
[2020-05-11] MEDS: NovoLOG Insulin Flexpen SUBQ SCH ×3 (06:00→17:01)
[2020-05-11] MEDS: Metoclopramide 10mg/2ml Inj IVP SCH ×3 (06:14→17:02)
[2020-05-11 07:06] LABS: HEMATOCRIT 28.7 % (37.0-47.0); HEMOGLOBIN 9.4 G/DL (12.0-16.0); MEAN CORPUSCULAR VOLUME 99 FL (80-99); PLATELET COUNT 46 K/UL (150-450); RED CELL DISTRIBUTION WIDTH 13.3 % (11.6-14.8); WHITE BLOOD COUNT 7.6 K/UL (4.8-10.8)
[2020-05-11] MEDS: PCA shift volume MISC SCH (07:10)
[2020-05-11 07:32] LABS: ALBUMIN 1.9 G/DL (3.4-5.0); ALBUMIN/GLOBULIN RATIO 0.4 (1.0-2.7); ALKALINE PHOSPHATASE 136 U/L (46-116); ANION GAP 6 mmol/L (5-15); ASPARTATE AMINO TRANSFERASE 14 U/L (15-37); BILIRUBIN,TOTAL 0.4 MG/DL (0.2-1.0); BLOOD UREA NITROGEN 17 mg/dL (7-18); CALCIUM 8.1 MG/DL (8.5-10.1); CARBON DIOXIDE 27 MMOL/L (21-32); CHLORIDE 104 MMOL/L (98-107); CREATININE 0.9 MG/DL (0.55-1.30); POTASSIUM 3.8 MMOL/L (3.5-5.1); SODIUM 137 MMOL/L (136-145)
[2020-05-11] MEDS ORDERED: Rate Change PCA 1 Each MISC PRN (08:15)
--- NOTE | 2020-05-11 08:29 | General Progress Note ---
Progress Note Progress Note T 100.6 x 1 Feeling better overall with enteric fluid via Kock pouch catheter started yesterday Abdomen soft, slight distention, healing nicely, non-tender Urine 1750 voiding Gastrostomy 180 bilious Kock pouch ileo 460 enteric WBC down 7600 Hgb 10.4 stable (received 1000mg Venofer) Platelets 46,000 chemistries ok except albumin 1.9 Imp: Resolving ileus/partial post-op SBO Plan; Cancel pouchogram XRay continue npo, TPN d/c [employer]JECT[employer] - [place] po prn Lalo Meadows MD May 11, 2020 08:28
[2020-05-11] MEDS: Citalopram Hydrobromide 10mg Tab ORAL SCH (08:41)
[2020-05-11] MEDS: Pantoprazole Inj IVP SCH (08:41)
[2020-05-11] MEDS: BuPROPion SR 100mg tab ORAL SCH ×2 (08:41→17:02)
[2020-05-11 08:54] LABS: ALANINE AMINOTRANSFERASE 9 U/L (12-78)
--- NOTE | 2020-05-11 11:51 | Hematology/Onc Progress Note ---
Assessment/Plan Assessment/Plan ASSESSMENT AND PLAN: # SEVERE Thrombocytopenia that is severe, on admission, plt was wnl and now dropped to 8K The patient comes in with high-grade bowel obstruction and malfunction Kock pouch continent ileostomy. The patient is status post surgery including release of the bowel obstruction. The patient was noted to have pus in small intra-abdominal abscess. It was growing out Klebsiella pneumoniae and Enterococcus. The patient has a low platele count and could be secondary to cefepime, which the patient is on. --> cefepime has been stopped, likely culprti --> as per ID antibiotics, vancomycin, Cipro, and Flagyl. --> dic panel has been ordered --> peripheral smear has been ordered as well --> hapto neg and fibrinogen 738 --> hold off steriods --> no heparin or lovenox administered recently --> duplex lower ext ordered-->neg for dvt --> transfuse 2 units plt 05/07 --> plt trend 8k-->6k->34-->73->46 --> HIT antbody test ordered-->pending --> ct is wnl, less likely aHUS, also no schistocytes on smear noted --> also less likely iTP but is in differential ==>> consider bone marrow biopsy 05/12 if labs not better # Anemia likely due to hemoldilution --> likely hemodilutional and chronic disease # The patient has a history of Kock pouch continent ileostomy. # History of ulcerative colitis. # History of multiple abdominal surgeries. # History of spine surgery. # History of parathyroid adenoma. # History of proctocolectomy. # History of laparotomy. The timing of this note does not necessarily reflect the time of the patient was seen. Greatly appreciate consultation. Subjective Constitutional: Denies: no symptoms, chills, fever, malaise, weakness, other HEENT: Denies: no symptoms, eye pain, blurred vision, tearing, double vision, ear pain, ear discharge, nose pain, nose congestion, throat pain, throat swelling, mouth pain, mouth swelling, other Cardiovascular: Denies: no symptoms, chest pain, edema, irregular heart rate, lightheadedness, palpitations, syncope, other Gastrointestinal/Abdominal: Denies: no symptoms, abdomen distended, abdominal pain, black stools, tarry stools, blood in stool, constipated, diarrhea, difficulty swallowing, nausea, poor appetite, poor fluid intake, rectal bleeding , vomiting, other Genitourinary: Denies: no symptoms, burning, discharge, frequency, flank pain, hematuria, incontinence, pain, urgency, other Neurologic/Psychiatric: Denies: no symptoms, anxiety, depressed, emotional problems, headache, numbness, paresthesia, pre-existing deficit, seizure, tingling, tremors, weakness, other Endocrine: Denies: no symptoms, excessive sweating, flushing, intolerance to cold, intolerance to heat, increased hunger, increased thirst, increased urine, unexplained weight gain, unexplained weight loss, other Hematologic/Lymphatic: Denies: no symptoms, anemia, easy bleeding, easy bruising, adenopathy, other Allergies: Coded Allergies: ADHESIVE TAPE (Verified Adverse Reaction, Intermediate, Rash, 08/27/19) CLEAR TAPE Subjective 05/08 gtube connected, plts 6k, ordered for transfusion, consider ahus as well, will get hit ab test 05/10 plt is 73, no bleeding, feelingbetter, holding off transfusion 05/11 labs are noted, no bleeding, plt 46k, remains on antibiotics, may consider biopsy tomorrow if labs do not improve Objective Objective Current Medications Medications (Trade) Dose Ordered Sig/Jori Route PRN Reason Start Time Stop Time Status Last Admin Dose Admin Acetaminophen (Tylenol) 1,000 mg Q4H PRN GT temp>100.2 or headache 04/29/20 15:45 05/29/20 15:44 05/10/20 20:46 Acetaminophen/ Hydrocodone Bitart ([place] 5/325) 1 tab Q4H PRN ORAL pain 05/11/20 08:45 05/18/20 08:44 Bupropion HCl (Wellbutrin SR) 200 mg TWICE A DAY ORAL 04/26/20 21:00 05/26/20 20:59 05/11/20 08:41 Chlorhexidine Gluconate (Kathryn-Hex 2%) 1 applic DAILY@1999 TOPIC 04/27/20 20:00 07/26/20 19:59 05/10/20 20:45 Ciprofloxacin 200 ml @ 200 mls/hr Q12HR IV 05/05/20 22:00 05/12/20 21:59 05/11/20 08:41 Citalopram Hydrobromide (CeleXA) 20 mg DAILY ORAL 04/26/20 21:00 05/27/20 08:59 05/11/20 08:41 Dextrose 1,000 ml @ 0 mls/hr Q24H PRN IV PN interrupted or unavailable 04/28/20 08:30 05/28/20 08:29 Dextrose (Dextrose 50%) 25 ml Q30M PRN IV Hypoglycemia 04/28/20 08:30 07/27/20 08:29 Dextrose (Dextrose 50%) 50 ml Q30M PRN IV Hypoglycemia 04/28/20 08:30 07/27/20 08:29 Dextrose/ Electrolytes 1,000 ml @ 10 mls/hr Q24H IV 05/09/20 10:00 05/28/20 09:59 05/10/20 10:24 Fat Emulsion Intravenous 216 ml/Amino Acids/ Electrolytes/ Dextrose 1,896 ml @ 79 mls/hr Q24H IV 05/09/20 21:00 06/08/20 20:59 05/10/20 20:48 Folic Acid (Folate) 1 mg DAILY ORAL 04/27/20 10:30 05/27/20 10:29 05/11/20 08:41 Insulin Aspart (NovoLOG) Q6HR SUBQ 04/29/20 00:00 07/28/20 00:00 05/10/20 12:15 Lorazepam (Ativan) 1 mg Q4H PRN SL Muscle Spasm 05/09/20 09:30 05/16/20 09:29 Metoclopramide HCl (Reglan) 10 mg Q6HR IVP 05/05/20 18:00 06/04/20 17:59 05/11/20 06:14 Metronidazole 100 ml @ 100 mls/hr Q8H IVPB 05/10/20 02:00 05/17/20 01:59 05/11/20 02:43 Micafungin Sodium 100 mg/Sodium Chloride 110 ml @ 110 mls/hr Q24H IVPB 05/08/20 00:00 05/15/20 00:00 05/10/20 23:15 Ondansetron HCl (Zofran) 4 mg Q4H PRN IVP Nausea & Vomiting 04/29/20 15:45 05/29/20 15:44 05/11/20 08:42 Pantoprazole (Protonix) 40 mg DAILY IVP 04/30/20 09:00 05/30/20 08:59 05/11/20 08:41 Patient Own Medication (Patient's Own Med) 1 ea QHS ORAL 04/26/20 21:00 05/26/20 20:59 05/10/20 20:45 Trazodone HCl (Desyrel) 300 mg BEDTIME ORAL 04/27/20 21:00 05/27/20 20:59 05/10/20 20:45 Vancomycin HCl (Vanco pharmacy to dose) 1 ea DAILY PRN MISC Per rx protocol 05/04/20 13:15 06/03/20 13:14 Vancomycin HCl 750 mg/Sodium Chloride 275 ml @ 183.333 mls/hr Q8HR@0100,0900,1700 IVPB 05/09/20 01:00 05/14/20 00:59 05/11/20 08:40 Last 24 Hour Vital Signs Date Time Temp Pulse Resp B/P (MAP) Pulse Ox O2 Delivery O2 Flow Rate FiO2 05/11/20 04:00 99.2 94 18 98/55 (69) 95 05/11/20 04:00 94 18 95 05/11/20 00:00 92 18 94 05/11/20 00:00 98.9 92 18 106/58 (74) 94 05/10/20 21:16 99.8 05/10/20 21:00 Room Air 05/10/20 20:00 100.6 105 19 120/73 (89) 94 05/10/20 20:00 105 19 94 05/10/20 19:40 95 Room Air 21 05/10/20 16:00 20 95 05/10/20 16:00 98.4 91 20 115/62 (79) 95 05/10/20 12:00 18 05/10/20 12:00 98.6 90 18 103/58 (73) 94 05/10/20 09:00 Room Air 05/10/20 08:05 96 Room Air 21 05/10/20 08:00 99.1 95 18 118/63 (81) 93 05/10/20 08:00 18 05/10/20 04:00 98.8 88 18 125/69 (87) 93 05/10/20 04:00 88 18 93 05/10/20 00:00 98.5 85 18 116/64 (81) 93 05/10/20 00:00 85 18 93 05/09/20 21:00 98.8 05/09/20 21:00 Room Air 05/09/20 20:00 95 Room Air 21 05/09/20 20:00 100.5 99 22 135/75 (95) 94 05/09/20 20:00 18 05/09/20 18:10 99.2 96 18 136/75 (95) 05/09/20 16:41 97 Room Air 21 05/09/20 16:15 99.8 119 20 136/74 (94) 92 05/09/20 16:00 20 05/09/20 12:05 98.1 113 16 133/83 (100) 95 05/09/20 12:05 16 Intake and Output 05/10/20 05/11/20 19:00 07:00 Intake Total 2329 ml 1676.666 ml Output Total 1050 ml 1340 ml Balance 1279 ml 336.666 ml IV Total 2329 ml 1676.666 ml Output Urine Total 850 ml 900 ml Other 200 ml 440 ml Labs Test 05/08/20 12:57 05/08/20 17:25 05/08/20 17:41 05/08/20 23:20 White Blood Count 11.2 K/UL (4.8-10.8) Red Blood Count 3.08 M/UL (4.20-5.40) Hemoglobin 9.9 G/DL (12.0-16.0) Hematocrit 30.2 % (37.0-47.0) Mean Corpuscular Volume 98 FL (80-99) Mean Corpuscular Hemoglobin 32.2 PG (27.0-31.0) Mean Corpuscular Hemoglobin Concent 32.8 G/DL (32.0-36.0) Red Cell Distribution Width 13.5 % (11.6-14.8) Platelet Count 61 K/UL (150-450) Mean Platelet Volume 11.4 FL (6.5-10.1) Neutrophils (%) (Auto) 84.8 % (45.0-75.0) Lymphocytes (%) (Auto) 7.7 % (20.0-45.0) Monocytes (%) (Auto) 6.6 % (1.0-10.0) Eosinophils (%) (Auto) 0.0 % (0.0-3.0) Basophils (%) (Auto) 0.9 % (0.0-2.0) POC Whole Blood Glucose 104 MG/DL (74-106) 105 MG/DL (74-106) Test 05/09/20 04:40 05/09/20 04:54 05/09/20 11:59 05/09/20 18:22 White Blood Count 10.3 K/UL (4.8-10.8) Red Blood Count 2.92 M/UL (4.20-5.40) Hemoglobin 9.4 G/DL (12.0-16.0) Hematocrit 28.7 % (37.0-47.0) Mean Corpuscular Volume 98 FL (80-99) Mean Corpuscular Hemoglobin 32.3 PG (27.0-31.0) Mean Corpuscular Hemoglobin Concent 32.9 G/DL (32.0-36.0) Red Cell Distribution Width 12.8 % (11.6-14.8) Platelet Count 34 K/UL (150-450) Mean Platelet Volume 14.6 FL (6.5-10.1) Neutrophils (%) (Auto) % (45.0-75.0) Lymphocytes (%) (Auto) % (20.0-45.0) Monocytes (%) (Auto) % (1.0-10.0) Eosinophils (%) (Auto) % (0.0-3.0) Basophils (%) (Auto) % (0.0-2.0) Differential Total Cells Counted 100 Neutrophils % (Manual) 82 % (45-75) Lymphocytes % (Manual) 9 % (20-45) Monocytes % (Manual) 9 % (1-10) Eosinophils % (Manual) 0 % (0-3) Basophils % (Manual) 0 % (0-2) Band Neutrophils 0 % (0-8) Platelet Estimate Decreased Platelet Morphology Normal Polychromasia 1+ Hypochromasia Macrocytosis 1+ Sodium Level 138 MMOL/L (136-145) Potassium Level 4.3 MMOL/L (3.5-5.1) Chloride Level 102 MMOL/L (98-107) Carbon Dioxide Level 30 MMOL/L (21-32) Anion Gap 6 mmol/L (5-15) Blood Urea Nitrogen 17 mg/dL (7-18) Creatinine 0.9 MG/DL (0.55-1.30) Estimat Glomerular Filtration Rate > 60 mL/min (>60) Glucose Level 117 MG/DL (74-106) Calcium Level 8.0 MG/DL (8.5-10.1) Total Bilirubin 0.6 MG/DL (0.2-1.0) Aspartate Amino Transf (AST/SGOT) 12 U/L (15-37) Alanine Aminotransferase (ALT/SGPT) 11 U/L (12-78) Alkaline Phosphatase 165 U/L (46-116) Total Protein 6.7 G/DL (6.4-8.2) Albumin 2.1 G/DL (3.4-5.0) Globulin 4.6 g/dL Albumin/Globulin Ratio 0.5 (1.0-2.7) POC Whole Blood Glucose 113 MG/DL (74-106) 95 MG/DL (74-106) 122 MG/DL (74-106) Test 05/09/20 23:37 05/10/20 05:00 05/10/20 05:23 05/10/20 12:09 POC Whole Blood Glucose 130 MG/DL (74-106) 132 MG/DL (74-106) 140 MG/DL (74-106) White Blood Count 11.9 K/UL (4.8-10.8) Red Blood Count 3.15 M/UL (4.20-5.40) Hemoglobin 10.1 G/DL (12.0-16.0) Hematocrit 30.8 % (37.0-47.0) Mean Corpuscular Volume 98 FL (80-99) Mean Corpuscular Hemoglobin 32.1 PG (27.0-31.0) Mean Corpuscular Hemoglobin Concent 32.9 G/DL (32.0-36.0) Red Cell Distribution Width 12.5 % (11.6-14.8) Platelet Count 73 K/UL (150-450) Mean Platelet Volume 12.4 FL (6.5-10.1) Neutrophils (%) (Auto) % (45.0-75.0) Lymphocytes (%) (Auto) % (20.0-45.0) Monocytes (%) (Auto) % (1.0-10.0) Eosinophils (%) (Auto) % (0.0-3.0) Basophils (%) (Auto) % (0.0-2.0) Differential Total Cells Counted 100 Neutrophils % (Manual) 84 % (45-75) Lymphocytes % (Manual) 12 % (20-45) Monocytes % (Manual) 4 % (1-10) Eosinophils % (Manual) 0 % (0-3) Basophils % (Manual) 0 % (0-2) Band Neutrophils 0 % (0-8) Platelet Estimate Decreased Platelet Morphology Normal Macrocytosis 1+ Sodium Level 138 MMOL/L (136-145) Potassium Level 3.7 MMOL/L (3.5-5.1) Chloride Level 101 MMOL/L (98-107) Carbon Dioxide Level 29 MMOL/L (21-32) Anion Gap 8 mmol/L (5-15) Blood Urea Nitrogen 17 mg/dL (7-18) Creatinine 0.8 MG/DL (0.55-1.30) Estimat Glomerular Filtration Rate > 60 mL/min (>60) Glucose Level 134 MG/DL (74-106) Calcium Level 8.5 MG/DL (8.5-10.1) Phosphorus Level 3.2 MG/DL (2.5-4.9) Magnesium Level 1.4 MG/DL (1.8-2.4) Total Bilirubin 0.8 MG/DL (0.2-1.0) Aspartate Amino Transf (AST/SGOT) 13 U/L (15-37) Alanine Aminotransferase (ALT/SGPT) 9 U/L (12-78) Alkaline Phosphatase 184 U/L (46-116) Total Protein 7.0 G/DL (6.4-8.2) Albumin 2.2 G/DL (3.4-5.0) Globulin 4.8 g/dL Albumin/Globulin Ratio 0.5 (1.0-2.7) Test 05/10/20 17:37 05/10/20 23:15 05/11/20 05:30 05/11/20 06:14 POC Whole Blood Glucose 112 MG/DL (74-106) 133 MG/DL (74-106) 95 MG/DL (74-106) White Blood Count 7.6 K/UL (4.8-10.8) Red Blood Count 2.90 M/UL (4.20-5.40) Hemoglobin 9.4 G/DL (12.0-16.0) Hematocrit 28.7 % (37.0-47.0) Mean Corpuscular Volume 99 FL (80-99) Mean Corpuscular Hemoglobin 32.3 PG (27.0-31.0) Mean Corpuscular Hemoglobin Concent 32.7 G/DL (32.0-36.0) Red Cell Distribution Width 13.3 % (11.6-14.8) Platelet Count 46 K/UL (150-450) Mean Platelet Volume 14.4 FL (6.5-10.1) Neutrophils (%) (Auto) % (45.0-75.0) Lymphocytes (%) (Auto) % (20.0-45.0) Monocytes (%) (Auto) % (1.0-10.0) Eosinophils (%) (Auto) % (0.0-3.0) Basophils (%) (Auto) % (0.0-2.0) Differential Total Cells Counted 100 Neutrophils % (Manual) 83 % (45-75) Lymphocytes % (Manual) 11 % (20-45) Monocytes % (Manual) 6 % (1-10) Eosinophils % (Manual) 0 % (0-3) Basophils % (Manual) 0 % (0-2) Band Neutrophils 0 % (0-8) Platelet Estimate Decreased Platelet Morphology Normal Hypochromasia 1+ Macrocytosis 1+ Sodium Level 137 MMOL/L (136-145) Potassium Level 3.8 MMOL/L (3.5-5.1) Chloride Level 104 MMOL/L (98-107) Carbon Dioxide Level 27 MMOL/L (21-32) Anion Gap 6 mmol/L (5-15) Blood Urea Nitrogen 17 mg/dL (7-18) Creatinine 0.9 MG/DL (0.55-1.30) Estimat Glomerular Filtration Rate > 60 mL/min (>60) Glucose Level 107 MG/DL (74-106) Calcium Level 8.1 MG/DL (8.5-10.1) Phosphorus Level 3.0 MG/DL (2.5-4.9) Magnesium Level 2.0 MG/DL (1.8-2.4) Total Bilirubin 0.4 MG/DL (0.2-1.0) Aspartate Amino Transf (AST/SGOT) 14 U/L (15-37) Alanine Aminotransferase (ALT/SGPT) 9 U/L (12-78) Alkaline Phosphatase 136 U/L (46-116) Total Protein 6.4 G/DL (6.4-8.2) Albumin 1.9 G/DL (3.4-5.0) Globulin 4.5 g/dL Albumin/Globulin Ratio 0.4 (1.0-2.7) Height (Feet): 5 Height (Inches): 3.00 Weight (Pounds): 139 Objective Physical Exam: Vitals: reviewed General: NAD HEENT: nc, at Neck: supple Chest: clear breath sounds bilaterally Cardiovascular: RRR, no s3, s4 Abdomen: soft, nontender, nd ++gtube, Kouch pouch ++ midline scar site is c/d/i Extremities: no cce, normal range of motion Neuro: alert and oriented Cecilio Grey MD May 11, 2020 11:51
[2020-05-11] MEDS: HYDROcodone/Acetamin 5/325 tab ORAL PRN ×2 (12:10→17:12)
[2020-05-11] MEDS: D5 1/2NS w/KCl 20mEq 1,000 ML IV SCH (12:11)
--- NOTE | 2020-05-11 14:11 | Pulmonology Progress Note ---
Subjective Interval Events: None new Constitutional: Reports: fever HEENT: Repors: no symptoms Respiratory: Reports: no symptoms Cardiovascular: Reports: no symptoms Gastrointestinal/Abdominal: Denies: nausea, vomiting Psychiatric: Denies: depression Skin: Denies: rash Musculoskeletal: Denies: pain Allergies: Coded Allergies: ADHESIVE TAPE (Verified Adverse Reaction, Intermediate, Rash, 08/27/19) CLEAR TAPE Objective Last 24 Hour Vital Signs Date Time Temp Pulse Resp B/P (MAP) Pulse Ox O2 Delivery O2 Flow Rate FiO2 05/11/20 12:40 99.2 05/11/20 12:00 99.2 98 18 116/70 (85) 95 05/11/20 08:00 98.8 101 20 115/62 (79) 93 05/11/20 07:00 96 Room Air 21 05/11/20 04:00 99.2 94 18 98/55 (69) 95 05/11/20 04:00 94 18 95 05/11/20 00:00 92 18 94 05/11/20 00:00 98.9 92 18 106/58 (74) 94 05/10/20 21:16 99.8 05/10/20 21:00 Room Air 05/10/20 20:00 100.6 105 19 120/73 (89) 94 05/10/20 20:00 105 19 94 05/10/20 19:40 95 Room Air 21 05/10/20 16:00 20 95 05/10/20 16:00 98.4 91 20 115/62 (79) 95 Intake and Output 05/10/20 05/11/20 19:00 07:00 Intake Total 2329 ml 1676.666 ml Output Total 1050 ml 1340 ml Balance 1279 ml 336.666 ml IV Total 2329 ml 1676.666 ml Output Urine Total 850 ml 900 ml Other 200 ml 440 ml General Appearance: no acute distress HEENT: normocephalic Respiratory: chest wall non-tender, lungs clear Cardiovascular: normal peripheral pulses Abdomen: normal bowel sounds Laboratory Tests 05/10/20 17:37: POC Whole Blood Glucose 112H 05/10/20 23:15: POC Whole Blood Glucose 133H 05/11/20 05:30: White Blood Count 7.6, Red Blood Count 2.90L, Hemoglobin 9.4L, Hematocrit 28.7L , Mean Corpuscular Volume 99, Mean Corpuscular Hemoglobin 32.3H, Mean Corpuscular Hemoglobin Concent 32.7, Red Cell Distribution Width 13.3, Platelet Count 46L, Mean Platelet Volume 14.4H, Neutrophils (%) (Auto) , Lymphocytes (%) (Auto) , Monocytes (%) (Auto) , Eosinophils (%) (Auto) , Basophils (%) (Auto) , Differential Total Cells Counted 100, Neutrophils % (Manual) 83H, Lymphocytes % (Manual) 11L, Monocytes % (Manual) 6, Eosinophils % (Manual) 0, Basophils % ( Manual) 0, Band Neutrophils 0, Platelet Estimate DecreasedL, Platelet Morphology Normal, Hypochromasia 1+, Macrocytosis 1+, Sodium Level 137, Potassium Level 3.8, Chloride Level 104, Carbon Dioxide Level 27, Anion Gap 6, Blood Urea Nitrogen 17, Creatinine 0.9, Estimat Glomerular Filtration Rate > 60 , Glucose Level 107H, Calcium Level 8.1L, Phosphorus Level 3.0, Magnesium Level 2.0, Total Bilirubin 0.4, Aspartate Amino Transf (AST/SGOT) 14L, Alanine Aminotransferase (ALT/SGPT) 9L, Alkaline Phosphatase 136H, Total Protein 6.4, Albumin 1.9L, Globulin 4.5, Albumin/Globulin Ratio 0.4L 05/11/20 06:14: POC Whole Blood Glucose 95 Current Medications Medications (Trade) Dose Ordered Sig/Jori Route PRN Reason Start Time Stop Time Status Last Admin Dose Admin Acetaminophen (Tylenol) 1,000 mg Q4H PRN GT temp>100.2 or headache 04/29/20 15:45 05/29/20 15:44 05/10/20 20:46 Acetaminophen/ Hydrocodone Bitart ([place] 5/325) 1 tab Q4H PRN ORAL pain 05/11/20 08:45 05/18/20 08:44 05/11/20 12:10 Bupropion HCl (Wellbutrin SR) 200 mg TWICE A DAY ORAL 04/26/20 21:00 05/26/20 20:59 05/11/20 08:41 Chlorhexidine Gluconate (Kathryn-Hex 2%) 1 applic DAILY@2000 TOPIC 04/27/20 20:00 07/26/20 19:59 05/10/20 20:45 Ciprofloxacin 200 ml @ 200 mls/hr Q12HR IV 05/05/20 22:00 05/12/20 21:59 05/11/20 08:41 Citalopram Hydrobromide (CeleXA) 20 mg DAILY ORAL 04/26/20 21:00 05/27/20 08:59 05/11/20 08:41 Dextrose 1,000 ml @ 0 mls/hr Q24H PRN IV PN interrupted or unavailable 04/28/20 08:30 05/28/20 08:29 Dextrose (Dextrose 50%) 25 ml Q30M PRN IV Hypoglycemia 04/28/20 08:30 07/27/20 08:29 Dextrose (Dextrose 50%) 50 ml Q30M PRN IV Hypoglycemia 04/28/20 08:30 07/27/20 08:29 Dextrose/ Electrolytes 1,000 ml @ 10 mls/hr Q24H IV 05/09/20 10:00 05/28/20 09:59 05/11/20 12:11 Fat Emulsion Intravenous 216 ml/Amino Acids/ Electrolytes/ Dextrose 1,896 ml @ 79 mls/hr Q24H IV 05/09/20 21:00 06/08/20 20:59 05/10/20 20:48 Folic Acid (Folate) 1 mg DAILY ORAL 04/27/20 10:30 05/27/20 10:29 05/11/20 08:41 Insulin Aspart (NovoLOG) Q6HR SUBQ 04/29/20 00:00 07/28/20 00:00 05/10/20 12:15 Lorazepam (Ativan) 1 mg Q4H PRN SL Muscle Spasm 05/09/20 09:30 05/16/20 09:29 Metoclopramide HCl (Reglan) 10 mg Q6HR IVP 05/05/20 18:00 06/04/20 17:59 05/11/20 12:10 Metronidazole 100 ml @ 100 mls/hr Q8H IVPB 05/10/20 02:00 05/17/20 01:59 05/11/20 12:11 Micafungin Sodium 100 mg/Sodium Chloride 110 ml @ 110 mls/hr Q24H IVPB 05/08/20 00:00 05/15/20 00:00 05/10/20 23:15 Ondansetron HCl (Zofran) 4 mg Q4H PRN IVP Nausea & Vomiting 04/29/20 15:45 05/29/20 15:44 05/11/20 08:42 Pantoprazole (Protonix) 40 mg DAILY IVP 04/30/20 09:00 05/30/20 08:59 05/11/20 08:41 Patient Own Medication (Patient's Own Med) 1 ea QHS ORAL 04/26/20 21:00 05/26/20 20:59 05/10/20 20:45 Trazodone HCl (Desyrel) 300 mg BEDTIME ORAL 04/27/20 21:00 05/27/20 20:59 05/10/20 20:45 Vancomycin HCl (Vanco pharmacy to dose) 1 ea DAILY PRN MISC Per rx protocol 05/04/20 13:15 06/03/20 13:14 Vancomycin HCl 750 mg/Sodium Chloride 275 ml @ 183.333 mls/hr Q8HR@0100,0900,1700 IVPB 05/09/20 01:00 05/14/20 00:59 05/11/20 08:40 Assessment/Plan Assessment/Plan IMPRESSION: 1. Atelectasis, right lung. 2. Postnasal drip/allergic rhinitis. 3. Status post laparotomy and lysis of adhesions. 4. Chronic pain. 5. Ulcerative colitis. DISCUSSION: The patient is on broad-spectrum antibiotics for intraabdominal abscess. I concur with their use at this time. Her respiratory status is stable. She is saturating well on room air. Afebrile. Low grade fever again yesterday 100.2 Zenon Montoya Omar Syed MD May 11, 2020 14:11
[2020-05-11] MEDS ORDERED: PCA shift volume MISC SCH (19:00)
--- NOTE | 2020-05-11 19:26 | Infectious Diseases Prog Note ---
Assessment/Plan Assessment/Plan ASSESSMENT AND PLAN: 1. ? sepsis, leukocytosis, fevers, thrombocytopenia, ? cholecystitis, ? aspiration pna/hcap vs atelectasis (favor atelectasis) klebsiella and enterococcus abscess - s/p debridement sbo, malfunctioning Kock ileostomy - s/p surgery ileus, ? bowel obstruction fungemia risk - vancomycin, ciprofloxacin and flagyl (cefepime held secondary to thrombocytopenia) - day # 12 abx post-op - micafungin for anti-fungal - day # 4 - f/u urine/blood cultures negative - continue w/u per Dr. Meadows, hem/onc and pulmonary medicine - plt transfusion as needed - monitor labs - GI w/u in progress 2. The patient has a history of Kock pouch continent ileostomy. 3. History of ulcerative colitis. 4. History of multiple abdominal surgeries. 5. History of spine surgery. 6. History of parathyroid adenoma. 7. History of proctocolectomy. 8. History of laparotomy. 9. Anemia. 10. Thrombocytopenia. 11. Allergies to adhesive tape. 12. Social history is negative. 13. Family history is noncontributory. 14. MAR is noted. 15. Case was discussed with RN. 16. Continue treatment per Dr. Meadows and consultants. 17. I will follow. Subjective Constitutional: Denies: fever, fatigue HEENT: Denies: congestion Respiratory: Denies: shortness of breath Cardiovascular: Denies: chest pain Gastrointestinal/Abdominal: Denies: nausea, vomiting, diarrhea Genitourinary: Reports: other - + decker Neurologic: Denies: headache Psychiatric: Denies: depression Skin: Denies: rash Hematologic: Denies: bleeding Musculoskeletal: Reports: pain - some abdominal pain Allergies: Coded Allergies: ADHESIVE TAPE (Verified Adverse Reaction, Intermediate, Rash, 08/27/19) CLEAR TAPE Objective Last 24 Hour Vital Signs Date Time Temp Pulse Resp B/P (MAP) Pulse Ox O2 Delivery O2 Flow Rate FiO2 05/11/20 17:42 99.2 05/11/20 16:00 98.9 102 20 135/82 (99) 94 05/11/20 12:00 99.2 98 18 116/70 (85) 95 05/11/20 11:30 98 18 95 05/11/20 09:00 Room Air 05/11/20 08:00 98.8 101 20 115/62 (79) 93 05/11/20 08:00 101 20 93 05/11/20 07:00 96 Room Air 21 05/11/20 04:00 99.2 94 18 98/55 (69) 95 05/11/20 04:00 94 18 95 05/11/20 00:00 92 18 94 05/11/20 00:00 98.9 92 18 106/58 (74) 94 05/10/20 21:16 99.8 05/10/20 21:00 Room Air 05/10/20 20:00 100.6 105 19 120/73 (89) 94 05/10/20 20:00 105 19 94 05/10/20 19:40 95 Room Air 21 Height (Feet): 5 Height (Inches): 3.00 Weight (Pounds): 139 General Appearance: no acute distress HEENT: normocephalic, atraumatic, anicteric, mucous membranes moist Respiratory/Chest: normal breath sounds, no respiratory distress, no accessory muscle use, rhonchi - bilaterally Cardiovascular: normal rate, regular rhythm, no gallop/murmur, no JVD Abdomen: normal bowel sounds, soft, non tender, no organomegaly, non distended Genitourinary: other - + decker Extremities: no cyanosis Skin: no rash 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 There is some persistent right perihilar atelectasis. The heart size is normal. Impression: Improved bilateral suprahilar interstitial infiltrates, over 2 days Abdominal US: Impression: Distended gallbladder with borderline wall thickening, but no gallstones. Significance uncertain. Mildly dilated common bile duct. May be age-related, downstream obstruction not completely excludable particularly in view of findings reported on recent CT scan. Correlate with liver function tests, consider MRCP for further evaluation if clinically indicated CT abdomen and pelvis - 04/27/20 - Impression: Dilated proximal small bowel loops, with another short segment of dilated mid small bowel, nondilated distal small bowel loops. Findings are concerning for small bowel obstruction. Given somewhat prominent mucosal enhancement, findings could also be due to enteritis. Trace ascites, possibly related to the above Postsurgical changes, as described. Note that the Decker catheter is deep within the reservoir but the reservoir is somewhat distended with material. Ectatic extrahepatic bile ducts. Suspect age-related is this is unchanged from the prior study. Correlate with liver function tests Nonspecific prominent retroperitoneal lymph nodes Findings discussed by phone with Dr. Meadows at the time of interpretation KUB - 05/08/20 - FINDINGS/IMPRESSION: Multiple, mildly prominent loops of colon which may correlate with postoperative ileus. No large volume free intraperitoneal air. Extensive suture line within the pelvis and right lower quadrant, correlate with surgical history. Midline cutaneous skin lu. The lung bases are clear. Degenerative changes of the spine. Microbiology Date/Time Source Procedure Growth Status 05/07/20 22:30 Blood Blood Culture - Preliminary NO GROWTH AFTER 72 HOURS Resulted 04/27/20 11:13 Nasopharynx SARS-CoV-2 RdRp Gene Assay - Final Complete 05/07/20 22:50 Indwelling Cath Urine Culture - Final NO GROWTH AFTER 48 HOURS Complete 04/29/20 14:48 Abdomen Gram Stain - Final Complete 04/29/20 14:48 Aerobic Culture - Final Klebsiella Pneumoniae Enterococcus Faecalis Complete 04/29/20 14:48 Abdomen Anaerobic Culture - Final NO ANAEROBES ISOLATED Complete Laboratory Tests Test 05/10/20 23:15 05/11/20 05:30 05/11/20 06:14 POC Whole Blood Glucose 133 MG/DL (74-106) H 95 MG/DL (74-106) White Blood Count 7.6 K/UL (4.8-10.8) Red Blood Count 2.90 M/UL (4.20-5.40) L Hemoglobin 9.4 G/DL (12.0-16.0) L Hematocrit 28.7 % (37.0-47.0) L Mean Corpuscular Volume 99 FL (80-99) Mean Corpuscular Hemoglobin 32.3 PG (27.0-31.0) H Mean Corpuscular Hemoglobin Concent 32.7 G/DL (32.0-36.0) Red Cell Distribution Width 13.3 % (11.6-14.8) Platelet Count 46 K/UL (150-450) L Mean Platelet Volume 14.4 FL (6.5-10.1) H Neutrophils (%) (Auto) % (45.0-75.0) Lymphocytes (%) (Auto) % (20.0-45.0) Monocytes (%) (Auto) % (1.0-10.0) Eosinophils (%) (Auto) % (0.0-3.0) Basophils (%) (Auto) % (0.0-2.0) Differential Total Cells Counted 100 Neutrophils % (Manual) 83 % (45-75) H Lymphocytes % (Manual) 11 % (20-45) L Monocytes % (Manual) 6 % (1-10) Eosinophils % (Manual) 0 % (0-3) Basophils % (Manual) 0 % (0-2) Band Neutrophils 0 % (0-8) Platelet Estimate Decreased L Platelet Morphology Normal Hypochromasia 1+ Macrocytosis 1+ Sodium Level 137 MMOL/L (136-145) Potassium Level 3.8 MMOL/L (3.5-5.1) Chloride Level 104 MMOL/L (98-107) Carbon Dioxide Level 27 MMOL/L (21-32) Anion Gap 6 mmol/L (5-15) Blood Urea Nitrogen 17 mg/dL (7-18) Creatinine 0.9 MG/DL (0.55-1.30) Estimat Glomerular Filtration Rate > 60 mL/min (>60) Glucose Level 107 MG/DL (74-106) H Calcium Level 8.1 MG/DL (8.5-10.1) L Phosphorus Level 3.0 MG/DL (2.5-4.9) Magnesium Level 2.0 MG/DL (1.8-2.4) Total Bilirubin 0.4 MG/DL (0.2-1.0) Aspartate Amino Transf (AST/SGOT) 14 U/L (15-37) L Alanine Aminotransferase (ALT/SGPT) 9 U/L (12-78) L Alkaline Phosphatase 136 U/L (46-116) H Total Protein 6.4 G/DL (6.4-8.2) Albumin 1.9 G/DL (3.4-5.0) L Globulin 4.5 g/dL Albumin/Globulin Ratio 0.4 (1.0-2.7) L Current Medications Medications (Trade) Dose Ordered Sig/Jori Route PRN Reason Start Time Stop Time Status Last Admin Dose Admin Acetaminophen (Tylenol) 1,000 mg Q4H PRN GT temp>100.2 or headache 04/29/20 15:45 05/29/20 15:44 05/10/20 20:46 Acetaminophen/ Hydrocodone Bitart ([place] 5/325) 1 tab Q4H PRN ORAL pain 05/11/20 08:45 05/18/20 08:44 05/11/20 17:12 Bupropion HCl (Wellbutrin SR) 200 mg TWICE A DAY ORAL 04/26/20 21:00 05/26/20 20:59 05/11/20 17:02 Chlorhexidine Gluconate (Kathryn-Hex 2%) 1 applic DAILY@2000 TOPIC 04/27/20 20:00 07/26/20 19:59 05/10/20 20:45 Ciprofloxacin 200 ml @ 200 mls/hr Q12HR IV 05/05/20 22:00 05/12/20 21:59 05/11/20 08:41 Citalopram Hydrobromide (CeleXA) 20 mg DAILY ORAL 04/26/20 21:00 05/27/20 08:59 05/11/20 08:41 Dextrose 1,000 ml @ 0 mls/hr Q24H PRN IV PN interrupted or unavailable 04/28/20 08:30 05/28/20 08:29 Dextrose (Dextrose 50%) 25 ml Q30M PRN IV Hypoglycemia 04/28/20 08:30 07/27/20 08:29 Dextrose (Dextrose 50%) 50 ml Q30M PRN IV Hypoglycemia 04/28/20 08:30 07/27/20 08:29 Dextrose/ Electrolytes 1,000 ml @ 10 mls/hr Q24H IV 05/09/20 10:00 05/28/20 09:59 05/11/20 12:11 Fat Emulsion Intravenous 216 ml/Amino Acids/ Electrolytes/ Dextrose 1,896 ml @ 79 mls/hr Q24H IV 05/09/20 21:00 06/08/20 20:59 05/10/20 20:48 Folic Acid (Folate) 1 mg DAILY ORAL 04/27/20 10:30 05/27/20 10:29 05/11/20 08:41 Insulin Aspart (NovoLOG) Q6HR SUBQ 04/29/20 00:00 07/28/20 00:00 05/10/20 12:15 Lorazepam (Ativan) 1 mg Q4H PRN SL Muscle Spasm 05/09/20 09:30 05/16/20 09:29 Metoclopramide HCl (Reglan) 10 mg Q6HR IVP 05/05/20 18:00 06/04/20 17:59 05/11/20 17:02 Metronidazole 100 ml @ 100 mls/hr Q8H IVPB 05/10/20 02:00 05/17/20 01:59 05/11/20 17:02 Micafungin Sodium 100 mg/Sodium Chloride 110 ml @ 110 mls/hr Q24H IVPB 05/08/20 00:00 05/15/20 00:00 05/10/20 23:15 Miconazole Nitrate (Monistat) 1 applic BEDTIME VAGIN 05/11/20 21:00 08/09/20 20:59 Ondansetron HCl (Zofran) 4 mg Q4H PRN IVP Nausea & Vomiting 04/29/20 15:45 05/29/20 15:44 05/11/20 08:42 Pantoprazole (Protonix) 40 mg DAILY IVP 04/30/20 09:00 05/30/20 08:59 05/11/20 08:41 Patient Own Medication (Patient's Own Med) 1 ea QHS ORAL 04/26/20 21:00 05/12/20 23:59 05/10/20 20:45 Patient Own Medication (Patient's Own Med) 1 ea QHS ORAL 05/13/20 21:00 06/12/20 20:59 Trazodone HCl (Desyrel) 300 mg BEDTIME ORAL 04/27/20 21:00 05/27/20 20:59 05/10/20 20:45 Vancomycin HCl ([facility] pharmacy to dose) 1 ea DAILY PRN MISC Per rx protocol 05/04/20 13:15 06/03/20 13:14 Vancomycin HCl 750 mg/Sodium Chloride 275 ml @ 183.333 mls/hr Q8HR@0100,0900,1700 IVPB 05/09/20 01:00 05/14/20 00:59 05/11/20 16:37 Osmin Bermudez MD May 11, 2020 19:26
[2020-05-11] MEDS: LORazepam 1mg tab SL PRN (19:56)
[2020-05-11] MEDS: Fat Emulsion Iv 20% 216 ML in Tpn 1,680 ML IV SCH (20:43)
[2020-05-11] MEDS: Dyna-Hex 2% Top Sol 2oz TOPIC SCH (20:44)
[2020-05-11] MEDS: MYRBETRIQ 50 MG ORAL SCH (21:59)
[2020-05-11] MEDS: TraZODone 100mg tab ORAL SCH (22:00)
[2020-05-11] MEDS: Miconazole Vag Cr 45gm Tube (100mg per applicator) VAGIN SCH (22:00)
[2020-05-12] VITALS: BP 124/83
[2020-05-12] MEDS: Metoclopramide 10mg/2ml Inj IVP SCH ×5 (00:22→23:26)
[2020-05-12] MEDS: Micafungin 100 MG in NS 110 ML IVPB SCH ×2 (00:23→23:26)
[2020-05-12] MEDS: Vancomycin 750 MG in NS 275 ML IVPB SCH ×3 (01:32→17:05)
[2020-05-12 04:00] VITALS: BP 130/77
[2020-05-12] MEDS: NovoLOG Insulin Flexpen SUBQ SCH ×4 (06:00→17:05)
[2020-05-12 06:29] LABS: HEMATOCRIT 29.2 % (37.0-47.0); HEMOGLOBIN 9.4 G/DL (12.0-16.0); MEAN CORPUSCULAR VOLUME 98 FL (80-99); PLATELET COUNT 60 K/UL (150-450); RED BLOOD COUNT 2.98 M/UL (4.20-5.40); RED CELL DISTRIBUTION WIDTH 12.8 % (11.6-14.8); WHITE BLOOD COUNT 8.2 K/UL (4.8-10.8)
[2020-05-12 06:46] LABS: ALANINE AMINOTRANSFERASE 11 U/L (12-78); ALBUMIN 2.2 G/DL (3.4-5.0); ALBUMIN/GLOBULIN RATIO 0.5 (1.0-2.7); ALKALINE PHOSPHATASE 162 U/L (46-116); ANION GAP 6 mmol/L (5-15); ASPARTATE AMINO TRANSFERASE 15 U/L (15-37); BILIRUBIN,TOTAL 0.6 MG/DL (0.2-1.0); BLOOD UREA NITROGEN 14 mg/dL (7-18); CALCIUM 8.3 MG/DL (8.5-10.1); CARBON DIOXIDE 29 MMOL/L (21-32); CHLORIDE 104 MMOL/L (98-107); CREATININE 0.9 MG/DL (0.55-1.30); PHOSPHORUS 2.8 MG/DL (2.5-4.9); POTASSIUM 3.7 MMOL/L (3.5-5.1); SODIUM 139 MMOL/L (136-145)
[2020-05-12 08:00] VITALS: BP 125/64
[2020-05-12] MEDS: Pantoprazole Inj IVP SCH (08:50)
[2020-05-12] MEDS: Citalopram Hydrobromide 10mg Tab ORAL SCH (08:53)
[2020-05-12] MEDS: BuPROPion SR 100mg tab ORAL SCH ×2 (08:53→18:23)
[2020-05-12] MEDS: D5 1/2NS w/KCl 20mEq 1,000 ML IV SCH (10:00)
--- NOTE | 2020-05-12 10:24 | Hematology/Onc Progress Note ---
Assessment/Plan Assessment/Plan ASSESSMENT AND PLAN: # SEVERE Thrombocytopenia that is severe, on admission, plt was wnl and now dropped to 8K The patient comes in with high-grade bowel obstruction and malfunction Kock pouch continent ileostomy. The patient is status post surgery including release of the bowel obstruction. The patient was noted to have pus in small intra-abdominal abscess. It was growing out Klebsiella pneumoniae and Enterococcus. The patient has a low platele count and could be secondary to cefepime, which the patient is on. --> cefepime has been stopped, likely culprti --> as per ID antibiotics, vancomycin, Cipro, and Flagyl. --> dic panel has been ordered --> peripheral smear has been ordered as well --> hapto neg and fibrinogen 738 --> hold off steriods --> no heparin or lovenox administered recently --> duplex lower ext ordered-->neg for dvt --> transfuse 2 units plt 05/07 --> plt trend 8k-->6k->34-->73->46->60 --> HIT antbody test ordered-->pending --> cr is wnl, less likely aHUS, also no schistocytes on smear noted --> also less likely iTP but is in differential ==>> consider bone marrow biopsy if labs not better # Anemia likely due to hemoldilution --> likely hemodilutional and chronic disease --> hgb trend 9.6-->9.4 # The patient has a history of Kock pouch continent ileostomy. # History of ulcerative colitis. # History of multiple abdominal surgeries. # History of spine surgery. # History of parathyroid adenoma. # History of proctocolectomy. # History of laparotomy. The timing of this note does not necessarily reflect the time of the patient was seen. Greatly appreciate consultation. Subjective Constitutional: Denies: no symptoms, chills, fever, malaise, weakness, other HEENT: Denies: no symptoms, eye pain, blurred vision, tearing, double vision, ear pain, ear discharge, nose pain, nose congestion, throat pain, throat swelling, mouth pain, mouth swelling, other Cardiovascular: Denies: no symptoms, chest pain, edema, irregular heart rate, lightheadedness, palpitations, syncope, other Genitourinary: Denies: no symptoms, burning, discharge, frequency, flank pain, hematuria, incontinence, pain, urgency, other Neurologic/Psychiatric: Denies: no symptoms, anxiety, depressed, emotional problems, headache, numbness, paresthesia, pre-existing deficit, seizure, tingling, tremors, weakness, other Endocrine: Denies: no symptoms, excessive sweating, flushing, intolerance to cold, intolerance to heat, increased hunger, increased thirst, increased urine, unexplained weight gain, unexplained weight loss, other Hematologic/Lymphatic: Denies: no symptoms, anemia, easy bleeding, easy bruising, adenopathy, other Allergies: Coded Allergies: ADHESIVE TAPE (Verified Adverse Reaction, Intermediate, Rash, 08/27/19) CLEAR TAPE Subjective 05/08 gtube connected, plts 6k, ordered for transfusion, consider ahus as well, will get hit ab test 05/10 plt is 73, no bleeding, feelingbetter, holding off transfusion 05/11 labs are noted, no bleeding, plt 46k, remains on antibiotics, may consider biopsy tomorrow if labs do not improve 05/12 plt is better, gtube is clamped, no bleeding, no bleeding Objective Objective Current Medications Medications (Trade) Dose Ordered Sig/Jori Route PRN Reason Start Time Stop Time Status Last Admin Dose Admin Acetaminophen (Tylenol) 1,000 mg Q4H PRN GT temp>100.2 or headache 04/29/20 15:45 05/29/20 15:44 05/10/20 20:46 Acetaminophen/ Hydrocodone Bitart ([place] 5/325) 1 tab Q4H PRN ORAL pain 05/11/20 08:45 05/18/20 08:44 05/11/20 17:12 Bupropion HCl (Wellbutrin SR) 200 mg TWICE A DAY ORAL 04/26/20 21:00 05/26/20 20:59 05/12/20 08:53 Chlorhexidine Gluconate (Kathryn-Hex 2%) 1 applic DAILY@1999 TOPIC 04/27/20 20:00 07/26/20 19:59 05/11/20 20:44 Ciprofloxacin 200 ml @ 200 mls/hr Q12HR IV 05/11/20 21:00 05/18/20 20:59 05/12/20 09:17 Citalopram Hydrobromide (CeleXA) 20 mg DAILY ORAL 04/26/20 21:00 05/27/20 08:59 05/12/20 08:53 Dextrose 1,000 ml @ 0 mls/hr Q24H PRN IV PN interrupted or unavailable 04/28/20 08:30 05/28/20 08:29 Dextrose (Dextrose 50%) 25 ml Q30M PRN IV Hypoglycemia 04/28/20 08:30 07/27/20 08:29 Dextrose (Dextrose 50%) 50 ml Q30M PRN IV Hypoglycemia 04/28/20 08:30 07/27/20 08:29 Dextrose/ Electrolytes 1,000 ml @ 10 mls/hr Q24H IV 05/09/20 10:00 05/28/20 09:59 05/11/20 12:11 Fat Emulsion Intravenous 216 ml/Amino Acids/ Electrolytes/ Dextrose 1,896 ml @ 79 mls/hr Q24H IV 05/09/20 21:00 06/08/20 20:59 05/11/20 20:43 Folic Acid (Folate) 1 mg DAILY ORAL 04/27/20 10:30 05/27/20 10:29 05/12/20 08:53 Insulin Aspart (NovoLOG) Q6HR SUBQ 04/29/20 00:00 07/28/20 00:00 05/10/20 12:15 Lorazepam (Ativan) 1 mg Q4H PRN SL Muscle Spasm 05/09/20 09:30 05/16/20 09:29 05/11/20 19:56 Magnesium Sulfate 100 ml @ 100 mls/hr Q1H IVPB 05/12/20 08:30 05/12/20 12:29 05/12/20 09:50 Metoclopramide HCl (Reglan) 10 mg Q6HR IVP 05/05/20 18:00 06/04/20 17:59 05/12/20 06:05 Metronidazole 100 ml @ 100 mls/hr Q8H IVPB 05/10/20 02:00 05/17/20 01:59 05/12/20 02:33 Micafungin Sodium 100 mg/Sodium Chloride 110 ml @ 110 mls/hr Q24H IVPB 05/08/20 00:00 05/15/20 00:00 05/12/20 00:23 Miconazole Nitrate (Monistat) 1 applic BEDTIME VAGIN 05/11/20 21:00 08/09/20 20:59 05/11/20 22:00 Ondansetron HCl (Zofran) 4 mg Q4H PRN IVP Nausea & Vomiting 04/29/20 15:45 05/29/20 15:44 05/11/20 08:42 Pantoprazole (Protonix) 40 mg DAILY IVP 04/30/20 09:00 05/30/20 08:59 05/12/20 08:50 Patient Own Medication (Patient's Own Med) 1 ea QHS ORAL 04/26/20 21:00 05/12/20 23:59 05/11/20 21:59 Patient Own Medication (Patient's Own Med) 1 ea QHS ORAL 05/13/20 21:00 06/12/20 20:59 Trazodone HCl (Desyrel) 300 mg BEDTIME ORAL 04/27/20 21:00 05/27/20 20:59 05/11/20 22:00 [facility]a DAILY PRN MISC Per rx protocol 05/04/20 13:15 06/03/20 13:14 Vancomycin HCl 750 mg/Sodium Chloride 275 ml @ 183.333 mls/hr Q8HR@0100,0900,1700 IVPB 05/09/20 01:00 05/14/20 00:59 05/12/20 10:00 Last 24 Hour Vital Signs Date Time Temp Pulse Resp B/P (MAP) Pulse Ox O2 Delivery O2 Flow Rate FiO2 05/12/20 09:00 Room Air 05/12/20 08:00 99.2 86 20 125/64 (84) 97 05/12/20 04:00 98.5 97 17 130/77 (94) 95 05/12/20 00:00 98.7 94 18 124/83 (97) 95 05/11/20 21:00 Room Air 05/11/20 20:30 92 97 05/11/20 20:00 99.0 102 17 127/81 (96) 95 05/11/20 19:40 97 Room Air 21 05/11/20 17:42 99.2 05/11/20 16:00 98.9 102 20 135/82 (99) 94 05/11/20 12:00 99.2 98 18 116/70 (85) 95 05/11/20 11:30 98 18 95 05/11/20 09:00 Room Air 05/11/20 08:00 98.8 101 20 115/62 (79) 93 05/11/20 08:00 101 20 93 05/11/20 07:00 96 Room Air 21 05/11/20 04:00 99.2 94 18 98/55 (69) 95 05/11/20 04:00 94 18 95 05/11/20 00:00 92 18 94 05/11/20 00:00 98.9 92 18 106/58 (74) 94 05/10/20 21:16 99.8 05/10/20 21:00 Room Air 05/10/20 20:00 100.6 105 19 120/73 (89) 94 05/10/20 20:00 105 19 94 05/10/20 19:40 95 Room Air 21 05/10/20 16:00 20 95 05/10/20 16:00 98.4 91 20 115/62 (79) 95 05/10/20 12:00 18 05/10/20 12:00 98.6 90 18 103/58 (73) 94 Intake and Output 05/11/20 05/12/20 19:00 07:00 Intake Total 1545.000 ml Output Total 2170 ml 930 ml Balance -625.000 ml -930 ml IV Total 1545.000 ml Output Urine Total 2050 ml 750 ml Other 120 ml 180 ml Labs Test 05/09/20 11:59 05/09/20 18:22 05/09/20 23:37 05/10/20 05:00 POC Whole Blood Glucose 95 MG/DL (74-106) 122 MG/DL (74-106) 130 MG/DL (74-106) White Blood Count 11.9 K/UL (4.8-10.8) Red Blood Count 3.15 M/UL (4.20-5.40) Hemoglobin 10.1 G/DL (12.0-16.0) Hematocrit 30.8 % (37.0-47.0) Mean Corpuscular Volume 98 FL (80-99) Mean Corpuscular Hemoglobin 32.1 PG (27.0-31.0) Mean Corpuscular Hemoglobin Concent 32.9 G/DL (32.0-36.0) Red Cell Distribution Width 12.5 % (11.6-14.8) Platelet Count 73 K/UL (150-450) Mean Platelet Volume 12.4 FL (6.5-10.1) Neutrophils (%) (Auto) % (45.0-75.0) Lymphocytes (%) (Auto) % (20.0-45.0) Monocytes (%) (Auto) % (1.0-10.0) Eosinophils (%) (Auto) % (0.0-3.0) Basophils (%) (Auto) % (0.0-2.0) Differential Total Cells Counted 100 Neutrophils % (Manual) 84 % (45-75) Lymphocytes % (Manual) 12 % (20-45) Monocytes % (Manual) 4 % (1-10) Eosinophils % (Manual) 0 % (0-3) Basophils % (Manual) 0 % (0-2) Band Neutrophils 0 % (0-8) Platelet Estimate Decreased Platelet Morphology Normal Macrocytosis 1+ Sodium Level 138 MMOL/L (136-145) Potassium Level 3.7 MMOL/L (3.5-5.1) Chloride Level 101 MMOL/L (98-107) Carbon Dioxide Level 29 MMOL/L (21-32) Anion Gap 8 mmol/L (5-15) Blood Urea Nitrogen 17 mg/dL (7-18) Creatinine 0.8 MG/DL (0.55-1.30) Estimat Glomerular Filtration Rate > 60 mL/min (>60) Glucose Level 134 MG/DL (74-106) Calcium Level 8.5 MG/DL (8.5-10.1) Phosphorus Level 3.2 MG/DL (2.5-4.9) Magnesium Level 1.4 MG/DL (1.8-2.4) Total Bilirubin 0.8 MG/DL (0.2-1.0) Aspartate Amino Transf (AST/SGOT) 13 U/L (15-37) Alanine Aminotransferase (ALT/SGPT) 9 U/L (12-78) Alkaline Phosphatase 184 U/L (46-116) Total Protein 7.0 G/DL (6.4-8.2) Albumin 2.2 G/DL (3.4-5.0) Globulin 4.8 g/dL Albumin/Globulin Ratio 0.5 (1.0-2.7) Test 05/10/20 05:23 05/10/20 12:09 05/10/20 17:37 05/10/20 23:15 POC Whole Blood Glucose 132 MG/DL (74-106) 140 MG/DL (74-106) 112 MG/DL (74-106) 133 MG/DL (74-106) Test 05/11/20 05:30 05/11/20 06:14 05/12/20 05:05 05/12/20 08:30 White Blood Count 7.6 K/UL (4.8-10.8) 8.2 K/UL (4.8-10.8) Red Blood Count 2.90 M/UL (4.20-5.40) 2.98 M/UL (4.20-5.40) Hemoglobin 9.4 G/DL (12.0-16.0) 9.4 G/DL (12.0-16.0) Hematocrit 28.7 % (37.0-47.0) 29.2 % (37.0-47.0) Mean Corpuscular Volume 99 FL (80-99) 98 FL (80-99) Mean Corpuscular Hemoglobin 32.3 PG (27.0-31.0) 31.7 PG (27.0-31.0) Mean Corpuscular Hemoglobin Concent 32.7 G/DL (32.0-36.0) 32.2 G/DL (32.0-36.0) Red Cell Distribution Width 13.3 % (11.6-14.8) 12.8 % (11.6-14.8) Platelet Count 46 K/UL (150-450) 60 K/UL (150-450) Mean Platelet Volume 14.4 FL (6.5-10.1) 16.0 FL (6.5-10.1) Neutrophils (%) (Auto) % (45.0-75.0) % (45.0-75.0) Lymphocytes (%) (Auto) % (20.0-45.0) % (20.0-45.0) Monocytes (%) (Auto) % (1.0-10.0) % (1.0-10.0) Eosinophils (%) (Auto) % (0.0-3.0) % (0.0-3.0) Basophils (%) (Auto) % (0.0-2.0) % (0.0-2.0) Differential Total Cells Counted 100 100 Neutrophils % (Manual) 83 % (45-75) 87 % (45-75) Lymphocytes % (Manual) 11 % (20-45) 8 % (20-45) Monocytes % (Manual) 6 % (1-10) 5 % (1-10) Eosinophils % (Manual) 0 % (0-3) 0 % (0-3) Basophils % (Manual) 0 % (0-2) 0 % (0-2) Band Neutrophils 0 % (0-8) 0 % (0-8) Platelet Estimate Decreased Decreased Platelet Morphology Normal Normal Hypochromasia 1+ 2+ Macrocytosis 1+ Sodium Level 137 MMOL/L (136-145) 139 MMOL/L (136-145) Potassium Level 3.8 MMOL/L (3.5-5.1) 3.7 MMOL/L (3.5-5.1) Chloride Level 104 MMOL/L (98-107) 104 MMOL/L (98-107) Carbon Dioxide Level 27 MMOL/L (21-32) 29 MMOL/L (21-32) Anion Gap 6 mmol/L (5-15) 6 mmol/L (5-15) Blood Urea Nitrogen 17 mg/dL (7-18) 14 mg/dL (7-18) Creatinine 0.9 MG/DL (0.55-1.30) 0.9 MG/DL (0.55-1.30) Estimat Glomerular Filtration Rate > 60 mL/min (>60) > 60 mL/min (>60) Glucose Level 107 MG/DL (74-106) 102 MG/DL (74-106) Calcium Level 8.1 MG/DL (8.5-10.1) 8.3 MG/DL (8.5-10.1) Phosphorus Level 3.0 MG/DL (2.5-4.9) 2.8 MG/DL (2.5-4.9) Magnesium Level 2.0 MG/DL (1.8-2.4) 1.6 MG/DL (1.8-2.4) Total Bilirubin 0.4 MG/DL (0.2-1.0) 0.6 MG/DL (0.2-1.0) Aspartate Amino Transf (AST/SGOT) 14 U/L (15-37) 15 U/L (15-37) Alanine Aminotransferase (ALT/SGPT) 9 U/L (12-78) 11 U/L (12-78) Alkaline Phosphatase 136 U/L (46-116) 162 U/L (46-116) Total Protein 6.4 G/DL (6.4-8.2) 6.9 G/DL (6.4-8.2) Albumin 1.9 G/DL (3.4-5.0) 2.2 G/DL (3.4-5.0) Globulin 4.5 g/dL 4.7 g/dL Albumin/Globulin Ratio 0.4 (1.0-2.7) 0.5 (1.0-2.7) POC Whole Blood Glucose 95 MG/DL (74-106) Anisocytosis 1+ Vancomycin Level Trough 15.6 ug/mL (5.0-12.0) Height (Feet): 5 Height (Inches): 3.00 Weight (Pounds): 139 Objective Physical Exam: Vitals: reviewed General: NAD HEENT: nc, at Neck: supple Chest: clear breath sounds bilaterally Cardiovascular: RRR, no s3, s4 Abdomen: soft, nontender, nd ++gtube, Kouch pouch ++ midline scar site is c/d/i Extremities: no cce, normal range of motion Neuro: alert and oriented Cecilio Grey MD May 12, 2020 10:24
--- NOTE | 2020-05-12 11:56 | Pulmonology Progress Note ---
Subjective Interval Events: None new Constitutional: Denies: fever, fatigue HEENT: Repors: no symptoms Respiratory: Reports: no symptoms Cardiovascular: Reports: no symptoms Gastrointestinal/Abdominal: Denies: nausea, vomiting, diarrhea Psychiatric: Denies: depression Skin: Denies: rash Musculoskeletal: Reports: pain - some abdominal pain Allergies: Coded Allergies: ADHESIVE TAPE (Verified Adverse Reaction, Intermediate, Rash, 08/27/19) CLEAR TAPE Objective Last 24 Hour Vital Signs Date Time Temp Pulse Resp B/P (MAP) Pulse Ox O2 Delivery O2 Flow Rate FiO2 05/12/20 09:00 Room Air 05/12/20 08:00 99.2 86 20 125/64 (84) 97 05/12/20 04:00 98.5 97 17 130/77 (94) 95 05/12/20 00:00 98.7 94 18 124/83 (97) 95 05/11/20 21:00 Room Air 05/11/20 20:30 92 97 05/11/20 20:00 99.0 102 17 127/81 (96) 95 05/11/20 19:40 97 Room Air 21 05/11/20 17:42 99.2 05/11/20 16:00 98.9 102 20 135/82 (99) 94 05/11/20 12:00 99.2 98 18 116/70 (85) 95 Intake and Output 05/11/20 05/12/20 19:00 07:00 Intake Total 1545.000 ml Output Total 2170 ml 930 ml Balance -625.000 ml -930 ml IV Total 1545.000 ml Output Urine Total 2050 ml 750 ml Other 120 ml 180 ml General Appearance: no acute distress HEENT: normocephalic Respiratory: chest wall non-tender, lungs clear Cardiovascular: normal peripheral pulses Abdomen: normal bowel sounds Laboratory Tests 05/12/20 05:05: White Blood Count 8.2, Red Blood Count 2.98L, Hemoglobin 9.4L, Hematocrit 29.2L , Mean Corpuscular Volume 98, Mean Corpuscular Hemoglobin 31.7H, Mean Corpuscular Hemoglobin Concent 32.2, Red Cell Distribution Width 12.8, Platelet Count 60L, Mean Platelet Volume 16.0H, Neutrophils (%) (Auto) , Lymphocytes (%) (Auto) , Monocytes (%) (Auto) , Eosinophils (%) (Auto) , Basophils (%) (Auto) , Differential Total Cells Counted 100, Neutrophils % (Manual) 87H, Lymphocytes % (Manual) 8L, Monocytes % (Manual) 5, Eosinophils % (Manual) 0, Basophils % ( Manual) 0, Band Neutrophils 0, Platelet Estimate DecreasedL, Platelet Morphology Normal, Hypochromasia 2+, Anisocytosis 1+, Sodium Level 139, Potassium Level 3.7, Chloride Level 104, Carbon Dioxide Level 29, Anion Gap 6, Blood Urea Nitrogen 14, Creatinine 0.9, Estimat Glomerular Filtration Rate > 60 , Glucose Level 102, Calcium Level 8.3L, Phosphorus Level 2.8, Magnesium Level 1.6L, Total Bilirubin 0.6, Aspartate Amino Transf (AST/SGOT) 15, Alanine Aminotransferase (ALT/SGPT) 11L, Alkaline Phosphatase 162H, Total Protein 6.9, Albumin 2.2L, Globulin 4.7, Albumin/Globulin Ratio 0.5L 05/12/20 08:30: Vancomycin Level Trough 15.6H Current Medications Medications (Trade) Dose Ordered Sig/Jori Route PRN Reason Start Time Stop Time Status Last Admin Dose Admin Acetaminophen (Tylenol) 1,000 mg Q4H PRN GT temp>100.2 or headache 04/29/20 15:45 05/29/20 15:44 05/10/20 20:46 Acetaminophen/ Hydrocodone Bitart ([place] 5/325) 1 tab Q4H PRN ORAL pain 05/11/20 08:45 05/18/20 08:44 05/11/20 17:12 Bupropion HCl (Wellbutrin SR) 200 mg TWICE A DAY ORAL 04/26/20 21:00 05/26/20 20:59 05/12/20 08:53 Chlorhexidine Gluconate (Kathryn-Hex 2%) 1 applic DAILY@2000 TOPIC 04/27/20 20:00 07/26/20 19:59 05/11/20 20:44 Ciprofloxacin 200 ml @ 200 mls/hr Q12HR IV 05/11/20 21:00 05/18/20 20:59 05/12/20 09:17 Citalopram Hydrobromide (CeleXA) 20 mg DAILY ORAL 04/26/20 21:00 05/27/20 08:59 05/12/20 08:53 Dextrose 1,000 ml @ 0 mls/hr Q24H PRN IV PN interrupted or unavailable 04/28/20 08:30 05/28/20 08:29 Dextrose (Dextrose 50%) 25 ml Q30M PRN IV Hypoglycemia 04/28/20 08:30 07/27/20 08:29 Dextrose (Dextrose 50%) 50 ml Q30M PRN IV Hypoglycemia 04/28/20 08:30 07/27/20 08:29 Dextrose/ Electrolytes 1,000 ml @ 10 mls/hr Q24H IV 05/09/20 10:00 05/28/20 09:59 05/11/20 12:11 Fat Emulsion Intravenous 216 ml/Amino Acids/ Electrolytes/ Dextrose 1,896 ml @ 79 mls/hr Q24H IV 05/09/20 21:00 06/08/20 20:59 05/11/20 20:43 Folic Acid (Folate) 1 mg DAILY ORAL 04/27/20 10:30 05/27/20 10:29 05/12/20 08:53 Insulin Aspart (NovoLOG) Q6HR SUBQ 04/29/20 00:00 07/28/20 00:00 05/10/20 12:15 Lorazepam (Ativan) 1 mg Q4H PRN SL Muscle Spasm 05/09/20 09:30 05/16/20 09:29 05/11/20 19:56 Magnesium Sulfate 100 ml @ 100 mls/hr Q1H IVPB 05/12/20 08:30 05/12/20 12:29 05/12/20 11:44 Metoclopramide HCl (Reglan) 10 mg Q6HR IVP 05/05/20 18:00 06/04/20 17:59 05/12/20 11:44 Metronidazole 100 ml @ 100 mls/hr Q8H IVPB 05/10/20 02:00 05/17/20 01:59 05/12/20 10:30 Micafungin Sodium 100 mg/Sodium Chloride 110 ml @ 110 mls/hr Q24H IVPB 05/08/20 00:00 05/15/20 00:00 05/12/20 00:23 Miconazole Nitrate (Monistat) 1 applic BEDTIME VAGIN 05/11/20 21:00 08/09/20 20:59 05/11/20 22:00 Ondansetron HCl (Zofran) 4 mg Q4H PRN IVP Nausea & Vomiting 04/29/20 15:45 05/29/20 15:44 05/11/20 08:42 Pantoprazole (Protonix) 40 mg DAILY IVP 04/30/20 09:00 05/30/20 08:59 05/12/20 08:50 Patient Own Medication (Patient's Own Med) 1 ea QHS ORAL 04/26/20 21:00 05/12/20 23:59 05/11/20 21:59 Patient Own Medication (Patient's Own Med) 1 ea QHS ORAL 05/13/20 21:00 06/12/20 20:59 Trazodone HCl (Desyrel) 300 mg BEDTIME ORAL 04/27/20 21:00 05/27/20 20:59 05/11/20 22:00 Vancomycin HCl (Vanco pharmacy to dose) 1 ea DAILY PRN MISC Per rx protocol 05/04/20 13:15 06/03/20 13:14 Vancomycin HCl 750 mg/Sodium Chloride 275 ml @ 183.333 mls/hr Q8HR@0100,0900,1700 IVPB 05/09/20 01:00 05/14/20 00:59 05/12/20 10:00 Assessment/Plan Assessment/Plan IMPRESSION: 1. Atelectasis, right lung. 2. Postnasal drip/allergic rhinitis. 3. Status post laparotomy and lysis of adhesions. 4. Chronic pain. 5. Ulcerative colitis. DISCUSSION: The patient is on broad-spectrum antibiotics for intraabdominal abscess. I concur with their use at this time. Her respiratory status is stable. She is saturating well on room air. Zenon Montoya Omar Syed MD May 12, 2020 11:56
[2020-05-12 12:00] VITALS: BP 127/76
--- NOTE | 2020-05-12 15:03 | General Progress Note ---
Progress Note Progress Note Afebrile x 36 hours. Very sleepy today - has had no analgesics. some urinary incontinence so external catheter placed Abdomen soft, healing well Urine voiding + incontinent Gastrostomy 90cc Kock pouch ileo 140cc WBC 8200 Hgb 9.4 stable Platelets up 60,000 Mg 1.6 albumin 2.2 Imp: slowly resolving ileus/partial SBO Plan; clear liquid diet gastrostomy 3:3 protocol Mg infusion f/u labs Lalo Meadows MD May 12, 2020 15:03
[2020-05-12 16:00] VITALS: BP 139/78
[2020-05-12] MEDS ORDERED: NS Irrig 1000ml ONE (18:18)
[2020-05-12] MEDS ORDERED: Tubing IV Secondary IV ONE (18:18)
[2020-05-12] MEDS ORDERED: NS 275ml ONE (18:18)
[2020-05-12] MEDS: LORazepam 1mg tab SL PRN (18:37)
[2020-05-12 20:00] VITALS: BP 130/76
[2020-05-12] MEDS: Dyna-Hex 2% Top Sol 2oz TOPIC SCH (20:02)
[2020-05-12] MEDS: Miconazole Vag Cr 45gm Tube (100mg per applicator) VAGIN SCH (20:54)
[2020-05-12] MEDS: MYRBETRIQ 50 MG ORAL SCH (20:54)
[2020-05-12] MEDS: Fat Emulsion Iv 20% 216 ML in Tpn 1,680 ML IV SCH (20:56)
[2020-05-13] VITALS (8 sets, daily range): BP systolic 125–154; BP diastolic 74–98
[2020-05-13] MEDS: Vancomycin 750 MG in NS 275 ML IVPB SCH ×2 (00:56→08:40)
[2020-05-13] MEDS: HYDROcodone/Acetamin 5/325 tab ORAL PRN ×4 (03:23→23:12)
[2020-05-13] MEDS: Metoclopramide 10mg/2ml Inj IVP SCH ×4 (05:19→23:12)
[2020-05-13] MEDS: NovoLOG Insulin Flexpen SUBQ SCH ×4 (05:33→18:00)
[2020-05-13 05:53] LABS: HEMATOCRIT 32.8 % (37.0-47.0); HEMOGLOBIN 10.7 G/DL (12.0-16.0); MEAN CORPUSCULAR VOLUME 98 FL (80-99); PLATELET COUNT 74 K/UL (150-450); RED BLOOD COUNT 3.33 M/UL (4.20-5.40); WHITE BLOOD COUNT 7.8 K/UL (4.8-10.8)
[2020-05-13] MEDS: LORazepam 1mg tab SL PRN ×3 (06:18→20:55)
[2020-05-13 06:26] LABS: ALANINE AMINOTRANSFERASE 12 U/L (12-78); ALBUMIN 2.3 G/DL (3.4-5.0); ALBUMIN/GLOBULIN RATIO 0.5 (1.0-2.7); ALKALINE PHOSPHATASE 179 U/L (46-116); ANION GAP 9 mmol/L (5-15); ASPARTATE AMINO TRANSFERASE 17 U/L (15-37); BILIRUBIN,TOTAL 0.6 MG/DL (0.2-1.0); BLOOD UREA NITROGEN 13 mg/dL (7-18); CALCIUM 8.1 MG/DL (8.5-10.1); CARBON DIOXIDE 27 MMOL/L (21-32); CHLORIDE 105 MMOL/L (98-107); CREATININE 0.8 MG/DL (0.55-1.30); PHOSPHORUS 2.8 MG/DL (2.5-4.9); POTASSIUM 3.9 MMOL/L (3.5-5.1); SODIUM 141 MMOL/L (136-145)
--- NOTE | 2020-05-13 08:14 | Hematology/Onc Progress Note ---
Assessment/Plan Assessment/Plan ASSESSMENT AND PLAN: # SEVERE Thrombocytopenia that is severe, on admission, plt was wnl and now dropped to 8K The patient comes in with high-grade bowel obstruction and malfunction Kock pouch continent ileostomy. The patient is status post surgery including release of the bowel obstruction. The patient was noted to have pus in small intra-abdominal abscess. It was growing out Klebsiella pneumoniae and Enterococcus. The patient has a low platele count and could be secondary to cefepime, which the patient is on. --> cefepime has been stopped, likely culprits --> as per ID antibiotics, vancomycin, Cipro, and Flagyl. --> dic panel has been ordered --> peripheral smear has been ordered as well --> hapto neg and fibrinogen 738 --> hold off steriods --> no heparin or lovenox administered recently --> duplex lower ext ordered-->neg for dvt --> transfuse 2 units plt 05/07 --> plt trend 8k-->6k->34-->73->46->60-->74 --> HIT antbody test ordered-->pending --> cr is wnl, less likely aHUS, also no schistocytes on smear noted --> also less likely iTP but is in differential ==>> consider bone marrow biopsy if labs not better # Anemia likely due to hemoldilution --> likely hemodilutional and chronic disease --> hgb trend 9.6-->9.4 # The patient has a history of Kock pouch continent ileostomy. # History of ulcerative colitis. # History of multiple abdominal surgeries. # History of spine surgery. # History of parathyroid adenoma. # History of proctocolectomy. # History of laparotomy. The timing of this note does not necessarily reflect the time of the patient was seen. Greatly appreciate consultation. Subjective HEENT: Denies: no symptoms, eye pain, blurred vision, tearing, double vision, ear pain, ear discharge, nose pain, nose congestion, throat pain, throat swelling, mouth pain, mouth swelling, other Cardiovascular: Denies: no symptoms, chest pain, edema, irregular heart rate, lightheadedness, palpitations, syncope, other Respiratory: Denies: no symptoms, cough, shortness of breath, SOB with excertion, SOB at rest, sputum, wheezing, other Gastrointestinal/Abdominal: Denies: no symptoms, abdomen distended, abdominal pain, black stools, tarry stools, blood in stool, constipated, diarrhea, difficulty swallowing, nausea, poor appetite, poor fluid intake, rectal bleeding , vomiting, other Genitourinary: Denies: no symptoms, burning, discharge, frequency, flank pain, hematuria, incontinence, pain, urgency, other Neurologic/Psychiatric: Denies: no symptoms, anxiety, depressed, emotional problems, headache, numbness, paresthesia, pre-existing deficit, seizure, tingling, tremors, weakness, other Endocrine: Denies: no symptoms, excessive sweating, flushing, intolerance to cold, intolerance to heat, increased hunger, increased thirst, increased urine, unexplained weight gain, unexplained weight loss, other Allergies: Coded Allergies: ADHESIVE TAPE (Verified Adverse Reaction, Intermediate, Rash, 08/27/19) CLEAR TAPE Subjective 05/08 gtube connected, plts 6k, ordered for transfusion, consider ahus as well, will get hit ab test 05/10 plt is 73, no bleeding, feelingbetter, holding off transfusion 05/11 labs are noted, no bleeding, plt 46k, remains on antibiotics, may consider biopsy tomorrow if labs do not improve 05/12 plt is better, gtube is clamped, no bleeding, no bleeding 05/13 platelets have briskly improved, dw pt and will hold off marrow Objective Objective Current Medications Medications (Trade) Dose Ordered Sig/Jori Route PRN Reason Start Time Stop Time Status Last Admin Dose Admin Acetaminophen (Tylenol) 1,000 mg Q4H PRN GT temp>100.2 or headache 04/29/20 15:45 05/29/20 15:44 05/10/20 20:46 Acetaminophen/ Hydrocodone Bitart ([place] 5/325) 1 tab Q4H PRN ORAL pain 05/11/20 08:45 05/18/20 08:44 05/13/20 03:23 Bupropion HCl (Wellbutrin SR) 200 mg TWICE A DAY ORAL 04/26/20 21:00 05/26/20 20:59 05/12/20 18:23 Chlorhexidine Gluconate (Kathryn-Hex 2%) 1 applic DAILY@1999 TOPIC 04/27/20 20:00 07/26/20 19:59 05/12/20 20:02 Ciprofloxacin 200 ml @ 200 mls/hr Q12HR IV 05/11/20 21:00 05/18/20 20:59 05/12/20 20:54 Citalopram Hydrobromide (CeleXA) 20 mg DAILY ORAL 04/26/20 21:00 05/27/20 08:59 05/12/20 08:53 Dextrose 1,000 ml @ 0 mls/hr Q24H PRN IV PN interrupted or unavailable 04/28/20 08:30 05/28/20 08:29 Dextrose (Dextrose 50%) 25 ml Q30M PRN IV Hypoglycemia 04/28/20 08:30 07/27/20 08:29 Dextrose (Dextrose 50%) 50 ml Q30M PRN IV Hypoglycemia 04/28/20 08:30 07/27/20 08:29 Dextrose/ Electrolytes 1,000 ml @ 10 mls/hr Q24H IV 05/09/20 10:00 05/28/20 09:59 05/11/20 12:11 Fat Emulsion Intravenous 216 ml/Amino Acids/ Electrolytes/ Dextrose 1,896 ml @ 79 mls/hr Q24H IV 05/09/20 21:00 06/08/20 20:59 05/12/20 20:56 Folic Acid (Folate) 1 mg DAILY ORAL 04/27/20 10:30 05/27/20 10:29 05/12/20 08:53 Insulin Aspart (NovoLOG) Q6HR SUBQ 04/29/20 00:00 07/28/20 00:00 05/10/20 12:15 Lorazepam (Ativan) 1 mg Q4H PRN SL Muscle Spasm 05/09/20 09:30 05/16/20 09:29 05/13/20 06:18 Metoclopramide HCl (Reglan) 10 mg Q6HR IVP 05/05/20 18:00 06/04/20 17:59 05/13/20 05:19 Metronidazole 100 ml @ 100 mls/hr Q8H IVPB 05/10/20 02:00 05/17/20 01:59 05/13/20 02:09 Micafungin Sodium 100 mg/Sodium Chloride 110 ml @ 110 mls/hr Q24H IVPB 05/08/20 00:00 05/15/20 00:00 05/12/20 23:26 Miconazole Nitrate (Monistat) 1 applic BEDTIME VAGIN 05/11/20 21:00 08/09/20 20:59 05/12/20 20:54 Ondansetron HCl (Zofran) 4 mg Q4H PRN IVP Nausea & Vomiting 04/29/20 15:45 05/29/20 15:44 05/11/20 08:42 Pantoprazole (Protonix) 40 mg DAILY IVP 04/30/20 09:00 05/30/20 08:59 05/12/20 08:50 Patient Own Medication (Patient's Own Med) 1 ea QHS ORAL 05/13/20 21:00 06/12/20 20:59 Trazodone HCl (Desyrel) 300 mg BEDTIME PRN ORAL Insomnia 05/12/20 15:00 05/27/20 20:59 Vancomycin HCl (Vanco pharmacy to dose) 1 ea DAILY PRN MISC Per rx protocol 05/04/20 13:15 06/03/20 13:14 Vancomycin HCl 750 mg/Sodium Chloride 275 ml @ 183.333 mls/hr Q8HR@0100,0900,1700 IVPB 05/09/20 01:00 05/14/20 00:59 05/13/20 00:56 Last 24 Hour Vital Signs Date Time Temp Pulse Resp B/P (MAP) Pulse Ox O2 Delivery O2 Flow Rate FiO2 05/13/20 04:00 98.5 100 20 128/74 (92) 95 05/13/20 00:00 98.3 96 21 125/78 (94) 96 05/12/20 20:20 Room Air 05/12/20 20:00 98.5 91 19 130/76 (94) 96 05/12/20 19:00 96 Room Air 05/12/20 16:00 98.7 95 18 139/78 (98) 100 05/12/20 12:00 98.5 91 18 127/76 (93) 97 05/12/20 09:00 Room Air 05/12/20 08:00 99.2 86 20 125/64 (84) 97 05/12/20 08:00 97 Room Air 21 05/12/20 04:00 98.5 97 17 130/77 (94) 95 05/12/20 00:00 98.7 94 18 124/83 (97) 95 05/11/20 21:00 Room Air 05/11/20 20:30 92 97 05/11/20 20:00 99.0 102 17 127/81 (96) 95 05/11/20 19:40 97 Room Air 21 05/11/20 17:42 99.2 05/11/20 16:00 98.9 102 20 135/82 (99) 94 05/11/20 12:00 99.2 98 18 116/70 (85) 95 05/11/20 11:30 98 18 95 05/11/20 09:00 Room Air Intake and Output 05/12/20 05/13/20 19:00 07:00 Intake Total 540 ml 1349 ml Output Total 1995 ml 2185 ml Balance -1455 ml -836 ml Intake Oral 540 ml 360 ml IV Total 989 ml Output Urine Total 1950 ml 1700 ml Other 45 ml 485 ml Labs Test 05/10/20 12:09 05/10/20 17:37 05/10/20 23:15 05/11/20 05:30 POC Whole Blood Glucose 140 MG/DL (74-106) 112 MG/DL (74-106) 133 MG/DL (74-106) White Blood Count 7.6 K/UL (4.8-10.8) Red Blood Count 2.90 M/UL (4.20-5.40) Hemoglobin 9.4 G/DL (12.0-16.0) Hematocrit 28.7 % (37.0-47.0) Mean Corpuscular Volume 99 FL (80-99) Mean Corpuscular Hemoglobin 32.3 PG (27.0-31.0) Mean Corpuscular Hemoglobin Concent 32.7 G/DL (32.0-36.0) Red Cell Distribution Width 13.3 % (11.6-14.8) Platelet Count 46 K/UL (150-450) Mean Platelet Volume 14.4 FL (6.5-10.1) Neutrophils (%) (Auto) % (45.0-75.0) Lymphocytes (%) (Auto) % (20.0-45.0) Monocytes (%) (Auto) % (1.0-10.0) Eosinophils (%) (Auto) % (0.0-3.0) Basophils (%) (Auto) % (0.0-2.0) Differential Total Cells Counted 100 Neutrophils % (Manual) 83 % (45-75) Lymphocytes % (Manual) 11 % (20-45) Monocytes % (Manual) 6 % (1-10) Eosinophils % (Manual) 0 % (0-3) Basophils % (Manual) 0 % (0-2) Band Neutrophils 0 % (0-8) Platelet Estimate Decreased Platelet Morphology Normal Hypochromasia 1+ Macrocytosis 1+ Sodium Level 137 MMOL/L (136-145) Potassium Level 3.8 MMOL/L (3.5-5.1) Chloride Level 104 MMOL/L (98-107) Carbon Dioxide Level 27 MMOL/L (21-32) Anion Gap 6 mmol/L (5-15) Blood Urea Nitrogen 17 mg/dL (7-18) Creatinine 0.9 MG/DL (0.55-1.30) Estimat Glomerular Filtration Rate > 60 mL/min (>60) Glucose Level 107 MG/DL (74-106) Calcium Level 8.1 MG/DL (8.5-10.1) Phosphorus Level 3.0 MG/DL (2.5-4.9) Magnesium Level 2.0 MG/DL (1.8-2.4) Total Bilirubin 0.4 MG/DL (0.2-1.0) Aspartate Amino Transf (AST/SGOT) 14 U/L (15-37) Alanine Aminotransferase (ALT/SGPT) 9 U/L (12-78) Alkaline Phosphatase 136 U/L (46-116) Total Protein 6.4 G/DL (6.4-8.2) Albumin 1.9 G/DL (3.4-5.0) Globulin 4.5 g/dL Albumin/Globulin Ratio 0.4 (1.0-2.7) Test 05/11/20 06:14 05/12/20 05:05 05/12/20 08:30 05/12/20 11:37 POC Whole Blood Glucose 95 MG/DL (74-106) White Blood Count 8.2 K/UL (4.8-10.8) Red Blood Count 2.98 M/UL (4.20-5.40) Hemoglobin 9.4 G/DL (12.0-16.0) Hematocrit 29.2 % (37.0-47.0) Mean Corpuscular Volume 98 FL (80-99) Mean Corpuscular Hemoglobin 31.7 PG (27.0-31.0) Mean Corpuscular Hemoglobin Concent 32.2 G/DL (32.0-36.0) Red Cell Distribution Width 12.8 % (11.6-14.8) Platelet Count 60 K/UL (150-450) Mean Platelet Volume 16.0 FL (6.5-10.1) Neutrophils (%) (Auto) % (45.0-75.0) Lymphocytes (%) (Auto) % (20.0-45.0) Monocytes (%) (Auto) % (1.0-10.0) Eosinophils (%) (Auto) % (0.0-3.0) Basophils (%) (Auto) % (0.0-2.0) Differential Total Cells Counted 100 Neutrophils % (Manual) 87 % (45-75) Lymphocytes % (Manual) 8 % (20-45) Monocytes % (Manual) 5 % (1-10) Eosinophils % (Manual) 0 % (0-3) Basophils % (Manual) 0 % (0-2) Band Neutrophils 0 % (0-8) Platelet Estimate Decreased Platelet Morphology Normal Hypochromasia 2+ Anisocytosis 1+ Sodium Level 139 MMOL/L (136-145) Potassium Level 3.7 MMOL/L (3.5-5.1) Chloride Level 104 MMOL/L (98-107) Carbon Dioxide Level 29 MMOL/L (21-32) Anion Gap 6 mmol/L (5-15) Blood Urea Nitrogen 14 mg/dL (7-18) Creatinine 0.9 MG/DL (0.55-1.30) Estimat Glomerular Filtration Rate > 60 mL/min (>60) Glucose Level 102 MG/DL (74-106) Calcium Level 8.3 MG/DL (8.5-10.1) Phosphorus Level 2.8 MG/DL (2.5-4.9) Magnesium Level 1.6 MG/DL (1.8-2.4) Total Bilirubin 0.6 MG/DL (0.2-1.0) Aspartate Amino Transf (AST/SGOT) 15 U/L (15-37) Alanine Aminotransferase (ALT/SGPT) 11 U/L (12-78) Alkaline Phosphatase 162 U/L (46-116) Total Protein 6.9 G/DL (6.4-8.2) Albumin 2.2 G/DL (3.4-5.0) Globulin 4.7 g/dL Albumin/Globulin Ratio 0.5 (1.0-2.7) Vancomycin Level Trough 15.6 ug/mL (5.0-12.0) Test 05/13/20 04:45 White Blood Count 7.8 K/UL (4.8-10.8) Red Blood Count 3.33 M/UL (4.20-5.40) Hemoglobin 10.7 G/DL (12.0-16.0) Hematocrit 32.8 % (37.0-47.0) Mean Corpuscular Volume 98 FL (80-99) Mean Corpuscular Hemoglobin 32.0 PG (27.0-31.0) Mean Corpuscular Hemoglobin Concent 32.6 G/DL (32.0-36.0) Red Cell Distribution Width 13.0 % (11.6-14.8) Platelet Count 74 K/UL (150-450) Mean Platelet Volume 12.4 FL (6.5-10.1) Neutrophils (%) (Auto) % (45.0-75.0) Lymphocytes (%) (Auto) % (20.0-45.0) Monocytes (%) (Auto) % (1.0-10.0) Eosinophils (%) (Auto) % (0.0-3.0) Basophils (%) (Auto) % (0.0-2.0) Sodium Level 141 MMOL/L (136-145) Potassium Level 3.9 MMOL/L (3.5-5.1) Chloride Level 105 MMOL/L (98-107) Carbon Dioxide Level 27 MMOL/L (21-32) Anion Gap 9 mmol/L (5-15) Blood Urea Nitrogen 13 mg/dL (7-18) Creatinine 0.8 MG/DL (0.55-1.30) Estimat Glomerular Filtration Rate > 60 mL/min (>60) Glucose Level 118 MG/DL (74-106) Calcium Level 8.1 MG/DL (8.5-10.1) Phosphorus Level 2.8 MG/DL (2.5-4.9) Magnesium Level 1.8 MG/DL (1.8-2.4) Total Bilirubin 0.6 MG/DL (0.2-1.0) Aspartate Amino Transf (AST/SGOT) 17 U/L (15-37) Alanine Aminotransferase (ALT/SGPT) 12 U/L (12-78) Alkaline Phosphatase 179 U/L (46-116) Total Protein 7.4 G/DL (6.4-8.2) Albumin 2.3 G/DL (3.4-5.0) Globulin 5.1 g/dL Albumin/Globulin Ratio 0.5 (1.0-2.7) Height (Feet): 5 Height (Inches): 3.00 Weight (Pounds): 139 Objective Physical Exam: Vitals: reviewed General: NAD HEENT: nc, at Neck: supple Chest: clear breath sounds bilaterally Cardiovascular: RRR, no s3, s4 Abdomen: soft, nontender, nd ++gtube, Kouch pouch ++ midline scar site is c/d/i Extremities: no cce, normal range of motion Neuro: alert and oriented Cecilio Grey MD May 13, 2020 08:14
[2020-05-13] MEDS: Pantoprazole Inj IVP SCH (08:39)
[2020-05-13] MEDS: BuPROPion SR 100mg tab ORAL SCH ×2 (08:39→17:27)
[2020-05-13] MEDS: Citalopram Hydrobromide 10mg Tab ORAL SCH (08:39)
--- NOTE | 2020-05-13 09:47 | Pulmonology Progress Note ---
Subjective Interval Events: None new Constitutional: Denies: fever, fatigue HEENT: Repors: no symptoms Respiratory: Reports: no symptoms Cardiovascular: Reports: no symptoms Gastrointestinal/Abdominal: Denies: nausea, vomiting, diarrhea Psychiatric: Denies: depression Skin: Denies: rash Musculoskeletal: Reports: pain - some abdominal pain Allergies: Coded Allergies: ADHESIVE TAPE (Verified Adverse Reaction, Intermediate, Rash, 08/27/19) CLEAR TAPE Objective Last 24 Hour Vital Signs Date Time Temp Pulse Resp B/P (MAP) Pulse Ox O2 Delivery O2 Flow Rate FiO2 05/13/20 09:00 Room Air 05/13/20 08:00 97.0 102 21 137/88 (104) 99 05/13/20 04:00 98.5 100 20 128/74 (92) 95 05/13/20 00:00 98.3 96 21 125/78 (94) 96 05/12/20 20:20 Room Air 05/12/20 20:00 98.5 91 19 130/76 (94) 96 05/12/20 19:00 96 Room Air 21 05/12/20 16:00 98.7 95 18 139/78 (98) 100 05/12/20 12:00 98.5 91 18 127/76 (93) 97 Intake and Output 05/12/20 05/13/20 19:00 07:00 Intake Total 540 ml 1349 ml Output Total 1995 ml 2185 ml Balance -1455 ml -836 ml Intake Oral 540 ml 360 ml IV Total 989 ml Output Urine Total 1950 ml 1700 ml Other 45 ml 485 ml General Appearance: no acute distress HEENT: normocephalic Respiratory: chest wall non-tender, lungs clear Cardiovascular: normal peripheral pulses Abdomen: normal bowel sounds Laboratory Tests 05/12/20 11:37: POC Whole Blood Glucose [Pending] 05/13/20 04:45: White Blood Count 7.8, Red Blood Count 3.33L, Hemoglobin 10.7L, Hematocrit 32.8L , Mean Corpuscular Volume 98, Mean Corpuscular Hemoglobin 32.0H, Mean Corpuscular Hemoglobin Concent 32.6, Red Cell Distribution Width 13.0, Platelet Count 74L, Mean Platelet Volume 12.4H, Neutrophils (%) (Auto) , Lymphocytes (%) (Auto) , Monocytes (%) (Auto) , Eosinophils (%) (Auto) , Basophils (%) (Auto) , Sodium Level 141, Potassium Level 3.9, Chloride Level 105, Carbon Dioxide Level 27, Anion Gap 9, Blood Urea Nitrogen 13, Creatinine 0.8, Estimat Glomerular Filtration Rate > 60, Glucose Level 118H, Calcium Level 8.1L, Phosphorus Level 2.8, Magnesium Level 1.8, Total Bilirubin 0.6, Aspartate Amino Transf (AST/SGOT ) 17, Alanine Aminotransferase (ALT/SGPT) 12, Alkaline Phosphatase 179H, Total Protein 7.4, Albumin 2.3L, Globulin 5.1, Albumin/Globulin Ratio 0.5L Current Medications Medications (Trade) Dose Ordered Sig/Jori Route PRN Reason Start Time Stop Time Status Last Admin Dose Admin Acetaminophen (Tylenol) 1,000 mg Q4H PRN GT temp>100.2 or headache 04/29/20 15:45 05/29/20 15:44 05/10/20 20:46 Acetaminophen/ Hydrocodone Bitart ([place] 5/325) 1 tab Q4H PRN ORAL pain 05/11/20 08:45 05/18/20 08:44 05/13/20 09:38 Bupropion HCl (Wellbutrin SR) 200 mg TWICE A DAY ORAL 04/26/20 21:00 05/26/20 20:59 05/13/20 08:39 Chlorhexidine Gluconate (Kathryn-Hex 2%) 1 applic DAILY@2000 TOPIC 04/27/20 20:00 07/26/20 19:59 05/12/20 20:02 Ciprofloxacin 200 ml @ 200 mls/hr Q12HR IV 05/11/20 21:00 05/18/20 20:59 05/13/20 08:40 Citalopram Hydrobromide (CeleXA) 20 mg DAILY ORAL 04/26/20 21:00 05/27/20 08:59 05/13/20 08:39 Dextrose 1,000 ml @ 0 mls/hr Q24H PRN IV PN interrupted or unavailable 04/28/20 08:30 05/28/20 08:29 Dextrose (Dextrose 50%) 25 ml Q30M PRN IV Hypoglycemia 04/28/20 08:30 07/27/20 08:29 Dextrose (Dextrose 50%) 50 ml Q30M PRN IV Hypoglycemia 04/28/20 08:30 07/27/20 08:29 Dextrose/ Electrolytes 1,000 ml @ 10 mls/hr Q24H IV 05/09/20 10:00 05/28/20 09:59 05/11/20 12:11 Fat Emulsion Intravenous 216 ml/Amino Acids/ Electrolytes/ Dextrose 1,896 ml @ 79 mls/hr Q24H IV 05/09/20 21:00 06/08/20 20:59 05/12/20 20:56 Folic Acid (Folate) 1 mg DAILY ORAL 04/27/20 10:30 05/27/20 10:29 05/13/20 08:40 Insulin Aspart (NovoLOG) Q6HR SUBQ 04/29/20 00:00 07/28/20 00:00 05/10/20 12:15 Lorazepam (Ativan) 1 mg Q4H PRN SL Muscle Spasm 05/09/20 09:30 05/16/20 09:29 05/13/20 06:18 Metoclopramide HCl (Reglan) 10 mg Q6HR IVP 05/05/20 18:00 06/04/20 17:59 05/13/20 05:19 Metronidazole 100 ml @ 100 mls/hr Q8H IVPB 05/10/20 02:00 05/17/20 01:59 05/13/20 02:09 Micafungin Sodium 100 mg/Sodium Chloride 110 ml @ 110 mls/hr Q24H IVPB 05/08/20 00:00 05/15/20 00:00 05/12/20 23:26 Miconazole Nitrate (Monistat) 1 applic BEDTIME VAGIN 05/11/20 21:00 08/09/20 20:59 05/12/20 20:54 Ondansetron HCl (Zofran) 4 mg Q4H PRN IVP Nausea & Vomiting 04/29/20 15:45 05/29/20 15:44 05/11/20 08:42 Pantoprazole (Protonix) 40 mg DAILY IVP 04/30/20 09:00 05/30/20 08:59 05/13/20 08:39 Patient Own Medication (Patient's Own Med) 1 ea QHS ORAL 05/13/20 21:00 06/12/20 20:59 Trazodone HCl (Desyrel) 300 mg BEDTIME PRN ORAL Insomnia 05/12/20 15:00 05/27/20 20:59 Vancomycin HCl (Vanco pharmacy to dose) 1 ea DAILY PRN MISC Per rx protocol 05/04/20 13:15 06/03/20 13:14 Vancomycin HCl 750 mg/Sodium Chloride 275 ml @ 183.333 mls/hr Q8HR@0100,0900,1700 IVPB 05/09/20 01:00 05/14/20 00:59 05/13/20 08:40 Assessment/Plan Assessment/Plan IMPRESSION: 1. Atelectasis, right lung. 2. Postnasal drip/allergic rhinitis. 3. Status post laparotomy and lysis of adhesions. 4. Chronic pain. 5. Ulcerative colitis. DISCUSSION: The patient is on broad-spectrum antibiotics for intraabdominal abscess. I concur with their use at this time. Her respiratory status is stable. She is saturating well on room air. Zenon Montoya Omar Syed MD May 13, 2020 09:47
[2020-05-13] MEDS: D5 1/2NS w/KCl 20mEq 1,000 ML IV SCH (10:27)
--- NOTE | 2020-05-13 14:13 | General Progress Note ---
Progress Note Progress Note T 100 x 1 Feeling better and more alert, ambulated x 2 today, tolerating clear liquids and gastrostomy 3:3 protocol Abdomen soft, healing nicely Urine 3650 (using purwick) Gastrostomy 330 Kock pouch ileo 490 WBC 7800 Hgb 10.7 up Platelets up 74,000 albumin up 2.3 Imp: Improving Plan: full liquid diet gastrostomy 5:1 protocol continue Reglan q6h continue TPN Lalo Meadows MD May 13, 2020 14:13
--- NOTE | 2020-05-13 14:46 | Infectious Diseases Prog Note ---
Assessment/Plan Assessment/Plan ASSESSMENT AND PLAN: 1. ? sepsis, leukocytosis, fevers, thrombocytopenia, ? cholecystitis, ? aspiration pna/hcap vs atelectasis (favor atelectasis) klebsiella and enterococcus abscess - s/p debridement sbo, malfunctioning Kock ileostomy - s/p surgery ileus, ? bowel obstruction fungemia risk - vancomycin, ciprofloxacin and flagyl (cefepime held secondary to thrombocytopenia) - day # 14 abx post-op - will discontinue - micafungin for anti-fungal - day # 6 - will discontinue - f/u urine/blood cultures negative - continue w/u per Dr. Meadows, hem/onc and pulmonary medicine - plt transfusion as needed - monitor labs - d/w Dr. Meadows about abx 2. The patient has a history of Kock pouch continent ileostomy. 3. History of ulcerative colitis. 4. History of multiple abdominal surgeries. 5. History of spine surgery. 6. History of parathyroid adenoma. 7. History of proctocolectomy. 8. History of laparotomy. 9. Anemia. 10. Thrombocytopenia. 11. Allergies to adhesive tape. 12. Social history is negative. 13. Family history is noncontributory. 14. MAR is noted. 15. Case was discussed with RN. 16. Continue treatment per Dr. Meadows and consultants. 17. I will follow. Subjective Constitutional: Denies: fever - lgt HEENT: Denies: congestion Respiratory: Denies: shortness of breath Cardiovascular: Denies: chest pain Gastrointestinal/Abdominal: Denies: nausea, vomiting, diarrhea Genitourinary: Reports: other - no decker ; Denies: dysuria, hematuria Neurologic: Reports: headache Psychiatric: Reports: depression Skin: Reports: rash Hematologic: Reports: bleeding Musculoskeletal: Reports: pain Allergies: Coded Allergies: ADHESIVE TAPE (Verified Adverse Reaction, Intermediate, Rash, 08/27/19) CLEAR TAPE Objective Last 24 Hour Vital Signs Date Time Temp Pulse Resp B/P (MAP) Pulse Ox O2 Delivery O2 Flow Rate FiO2 05/13/20 12:00 98.8 109 19 142/89 (106) 97 05/13/20 11:58 100.0 109 19 142/89 (106) 97 05/13/20 09:00 Room Air 05/13/20 08:00 97.0 102 21 137/88 (104) 99 7/15/20 04:00 98.5 100 20 128/74 (92) 95 05/13/20 00:00 98.3 96 21 125/78 (94) 96 05/12/20 20:20 Room Air 05/12/20 20:00 98.5 91 19 130/76 (94) 96 05/12/20 19:00 96 Room Air 21 05/12/20 16:00 98.7 95 18 139/78 (98) 100 Height (Feet): 5 Height (Inches): 3.00 Weight (Pounds): 139 General Appearance: no acute distress HEENT: normocephalic, atraumatic, anicteric, mucous membranes moist Respiratory/Chest: lungs clear, normal breath sounds, no respiratory distress, no accessory muscle use Cardiovascular: normal rate, regular rhythm, no gallop/murmur, no JVD Abdomen: normal bowel sounds, soft, non tender, no organomegaly, non distended Genitourinary: other - no decker Extremities: no cyanosis Skin: no rash 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 There is some persistent right perihilar atelectasis. The heart size is normal. Impression: Improved bilateral suprahilar interstitial infiltrates, over 2 days Abdominal US: Impression: Distended gallbladder with borderline wall thickening, but no gallstones. Significance uncertain. Mildly dilated common bile duct. May be age-related, downstream obstruction not completely excludable particularly in view of findings reported on recent CT scan. Correlate with liver function tests, consider MRCP for further evaluation if clinically indicated CT abdomen and pelvis - 04/27/20 - Impression: Dilated proximal small bowel loops, with another short segment of dilated mid small bowel, nondilated distal small bowel loops. Findings are concerning for small bowel obstruction. Given somewhat prominent mucosal enhancement, findings could also be due to enteritis. Trace ascites, possibly related to the above Postsurgical changes, as described. Note that the Decker catheter is deep within the reservoir but the reservoir is somewhat distended with material. Ectatic extrahepatic bile ducts. Suspect age-related is this is unchanged from the prior study. Correlate with liver function tests Nonspecific prominent retroperitoneal lymph nodes Findings discussed by phone with Dr. Meadows at the time of interpretation KUB - 05/08/20 - FINDINGS/IMPRESSION: Multiple, mildly prominent loops of colon which may correlate with postoperative ileus. No large volume free intraperitoneal air. Extensive suture line within the pelvis and right lower quadrant, correlate with surgical history. Midline cutaneous skin lu. The lung bases are clear. Degenerative changes of the spine. Microbiology Date/Time Source Procedure Growth Status 05/07/20 22:30 Blood Blood Culture - Final NO GROWTH AFTER 5 DAYS Complete 04/27/20 11:13 Nasopharynx SARS-CoV-2 RdRp Gene Assay - Final Complete 05/07/20 22:50 Indwelling Cath Urine Culture - Final NO GROWTH AFTER 48 HOURS Complete 04/29/20 14:48 Abdomen Gram Stain - Final Complete 04/29/20 14:48 Aerobic Culture - Final Klebsiella Pneumoniae Enterococcus Faecalis Complete 04/29/20 14:48 Abdomen Anaerobic Culture - Final NO ANAEROBES ISOLATED Complete Laboratory Tests Test 05/13/20 04:45 05/13/20 12:02 White Blood Count 7.8 K/UL (4.8-10.8) Red Blood Count 3.33 M/UL (4.20-5.40) L Hemoglobin 10.7 G/DL (12.0-16.0) L Hematocrit 32.8 % (37.0-47.0) L Mean Corpuscular Volume 98 FL (80-99) Mean Corpuscular Hemoglobin 32.0 PG (27.0-31.0) H Mean Corpuscular Hemoglobin Concent 32.6 G/DL (32.0-36.0) Red Cell Distribution Width 13.0 % (11.6-14.8) Platelet Count 74 K/UL (150-450) L Mean Platelet Volume 12.4 FL (6.5-10.1) H Neutrophils (%) (Auto) % (45.0-75.0) Lymphocytes (%) (Auto) % (20.0-45.0) Monocytes (%) (Auto) % (1.0-10.0) Eosinophils (%) (Auto) % (0.0-3.0) Basophils (%) (Auto) % (0.0-2.0) Sodium Level 141 MMOL/L (136-145) Potassium Level 3.9 MMOL/L (3.5-5.1) Chloride Level 105 MMOL/L (98-107) Carbon Dioxide Level 27 MMOL/L (21-32) Anion Gap 9 mmol/L (5-15) Blood Urea Nitrogen 13 mg/dL (7-18) Creatinine 0.8 MG/DL (0.55-1.30) Estimat Glomerular Filtration Rate > 60 mL/min (>60) Glucose Level 118 MG/DL (74-106) H Calcium Level 8.1 MG/DL (8.5-10.1) L Phosphorus Level 2.8 MG/DL (2.5-4.9) Magnesium Level 1.8 MG/DL (1.8-2.4) Total Bilirubin 0.6 MG/DL (0.2-1.0) Aspartate Amino Transf (AST/SGOT) 17 U/L (15-37) Alanine Aminotransferase (ALT/SGPT) 12 U/L (12-78) Alkaline Phosphatase 179 U/L (46-116) H Total Protein 7.4 G/DL (6.4-8.2) Albumin 2.3 G/DL (3.4-5.0) L Globulin 5.1 g/dL Albumin/Globulin Ratio 0.5 (1.0-2.7) L POC Whole Blood Glucose 120 MG/DL (74-106) H Current Medications Medications (Trade) Dose Ordered Sig/Jori Route PRN Reason Start Time Stop Time Status Last Admin Dose Admin Acetaminophen (Tylenol) 1,000 mg Q4H PRN GT temp>100.2 or headache 04/29/20 15:45 05/29/20 15:44 05/10/20 20:46 Acetaminophen/ Hydrocodone Bitart ([place] 5/325) 1 tab Q4H PRN ORAL pain 05/11/20 08:45 05/18/20 08:44 05/13/20 09:38 Bupropion HCl (Wellbutrin SR) 200 mg TWICE A DAY ORAL 04/26/20 21:00 05/26/20 20:59 05/13/20 08:39 Chlorhexidine Gluconate (Kathryn-Hex 2%) 1 applic DAILY@1999 TOPIC 04/27/20 20:00 07/26/20 19:59 05/12/20 20:02 Ciprofloxacin 200 ml @ 200 mls/hr Q12HR IV 05/11/20 21:00 05/18/20 20:59 05/13/20 08:40 Citalopram Hydrobromide (CeleXA) 20 mg DAILY ORAL 04/26/20 21:00 05/27/20 08:59 05/13/20 08:39 Dextrose 1,000 ml @ 0 mls/hr Q24H PRN IV PN interrupted or unavailable 04/28/20 08:30 05/28/20 08:29 Dextrose (Dextrose 50%) 25 ml Q30M PRN IV Hypoglycemia 04/28/20 08:30 07/27/20 08:29 Dextrose (Dextrose 50%) 50 ml Q30M PRN IV Hypoglycemia 04/28/20 08:30 07/27/20 08:29 Dextrose/ Electrolytes 1,000 ml @ 10 mls/hr Q24H IV 05/09/20 10:00 05/28/20 09:59 05/13/20 10:27 Fat Emulsion Intravenous 216 ml/Amino Acids/ Electrolytes/ Dextrose 1,896 ml @ 79 mls/hr Q24H IV 05/09/20 21:00 06/08/20 20:59 05/12/20 20:56 Folic Acid (Folate) 1 mg DAILY ORAL 04/27/20 10:30 05/27/20 10:29 05/13/20 08:40 Insulin Aspart (NovoLOG) Q6HR SUBQ 04/29/20 00:00 07/28/20 00:00 05/10/20 12:15 Lorazepam (Ativan) 1 mg Q4H PRN SL Muscle Spasm 05/09/20 09:30 05/16/20 09:29 05/13/20 10:27 Metoclopramide HCl (Reglan) 10 mg Q6HR IVP 05/05/20 18:00 06/04/20 17:59 05/13/20 12:03 Metronidazole 100 ml @ 100 mls/hr Q8H IVPB 05/10/20 02:00 05/17/20 01:59 05/13/20 10:27 Micafungin Sodium 100 mg/Sodium Chloride 110 ml @ 110 mls/hr Q24H IVPB 05/08/20 00:00 05/15/20 00:00 05/12/20 23:26 Miconazole Nitrate (Monistat) 1 applic BEDTIME VAGIN 05/11/20 21:00 08/09/20 20:59 05/12/20 20:54 Ondansetron HCl (Zofran) 4 mg Q4H PRN IVP Nausea & Vomiting 04/29/20 15:45 05/29/20 15:44 05/11/20 08:42 Pantoprazole (Protonix) 40 mg DAILY IVP 04/30/20 09:00 05/30/20 08:59 05/13/20 08:39 Patient Own Medication (Patient's Own Med) 1 ea QHS ORAL 05/13/20 21:00 06/12/20 20:59 Trazodone HCl (Desyrel) 300 mg BEDTIME PRN ORAL Insomnia 05/12/20 15:00 05/27/20 20:59 Vancomycin HCl (Vanco pharmacy to dose) 1 ea DAILY PRN MISC Per rx protocol 05/04/20 13:15 06/03/20 13:14 Vancomycin HCl 750 mg/Sodium Chloride 275 ml @ 183.333 mls/hr Q8HR@0100,0900,1700 IVPB 05/09/20 01:00 05/18/20 00:59 05/13/20 08:40 Osmin Bermudez MD May 13, 2020 14:46
[2020-05-13] MEDS: Dyna-Hex 2% Top Sol 2oz TOPIC SCH (20:19)
[2020-05-13] MEDS: Miconazole Vag Cr 45gm Tube (100mg per applicator) VAGIN SCH (20:37)
[2020-05-13] MEDS: MYRBETRIQ 50 MG ORAL SCH (20:37)
[2020-05-13] MEDS: Fat Emulsion Iv 20% 216 ML in Tpn 1,680 ML IV SCH (20:48)
[2020-05-14] VITALS: BP 148/94
[2020-05-14] MEDS: LORazepam 1mg tab SL PRN (01:07)
[2020-05-14 04:00] VITALS: BP 150/91
[2020-05-14] MEDS: NovoLOG Insulin Flexpen SUBQ SCH ×5 (05:12→23:26)
[2020-05-14] MEDS: Metoclopramide 10mg/2ml Inj IVP SCH (05:21)
[2020-05-14] MEDS: HYDROcodone/Acetamin 5/325 tab ORAL PRN ×3 (05:22→22:37)
[2020-05-14 05:28] LABS: BASOPHILS % (AUTO) 1.4 % (0.0-2.0); HEMATOCRIT 34.2 % (37.0-47.0); HEMOGLOBIN 11.2 G/DL (12.0-16.0); LYMPHOCYTES % (AUTO) 10.9 % (20.0-45.0); MEAN CORPUSCULAR VOLUME 97 FL (80-99); MONOCYTES % (AUTO) 11.4 % (1.0-10.0); NEUTROPHILS % (AUTO) 76.2 % (45.0-75.0); PLATELET COUNT 136 K/UL (150-450); RED BLOOD COUNT 3.51 M/UL (4.20-5.40); WHITE BLOOD COUNT 11.7 K/UL (4.8-10.8)
[2020-05-14 05:35] LABS: ALANINE AMINOTRANSFERASE 17 U/L (12-78); ALBUMIN 2.4 G/DL (3.4-5.0); ALBUMIN/GLOBULIN RATIO 0.5 (1.0-2.7); ALKALINE PHOSPHATASE 188 U/L (46-116); ANION GAP 8 mmol/L (5-15); ASPARTATE AMINO TRANSFERASE 17 U/L (15-37); BILIRUBIN,TOTAL 0.7 MG/DL (0.2-1.0); BLOOD UREA NITROGEN 14 mg/dL (7-18); CALCIUM 8.4 MG/DL (8.5-10.1); CARBON DIOXIDE 28 MMOL/L (21-32); CHLORIDE 100 MMOL/L (98-107); CREATININE 0.9 MG/DL (0.55-1.30); PHOSPHORUS 3.4 MG/DL (2.5-4.9); SODIUM 135 MMOL/L (136-145)
[2020-05-14 07:42] VITALS: BP 133/78
[2020-05-14] MEDS: Pantoprazole Inj IVP SCH (09:04)
[2020-05-14] MEDS: BuPROPion SR 100mg tab ORAL SCH ×2 (09:05→17:29)
[2020-05-14] MEDS: Citalopram Hydrobromide 10mg Tab ORAL SCH (09:05)
[2020-05-14] MEDS: D5 1/2NS w/KCl 20mEq 1,000 ML IV SCH ×2 (10:00→17:29)
[2020-05-14] MEDS ORDERED: LORazepam 1mg tab SL PRN (10:30)
[2020-05-14] MEDS ORDERED: ALPRAZolam 0.5mg tab ORAL SCH (10:38)
--- NOTE | 2020-05-14 10:39 | General Progress Note ---
Progress Note Progress Note T 100 x 1 Very anxious and trembling, and tachycardia past 48 hours. Has been out of bed and tolerated full liquid diet with gastrostomy 5:1 protocol. Antibiotics stopped yesterday she still c/o abdominal pain and wants more analgesics Abdomen soft, flat, healing nicely Urine 2049 Gastrostomy 10cc Kock pouch ileo 650 WBC up 11,700 Hgb 11.2 Platelets up 136,000 CMP ok not dehydrated Mg 1.6 albumin up 2.4 Imp: R/O recurrent infection off antibiotics Plan; CXR, EKG, urinalysis, urine C&S, blood C&S from PICC line Xanax po prn BCIR low residue diet and plug gastrostomy continuously Mg infusion f/u labs Lalo Meadows MD May 14, 2020 10:39
--- NOTE | 2020-05-14 11:18 | Diagnostic Imaging Report ---
Indication: Cough Technique: One view of the chest Comparison: 05/07/2020 Findings: There is small left pleural effusion. Previously demonstrated right perihilar atelectasis is no longer evident. No new infiltrates. The heart size is normal. There is a right arm PICC. Impression: New small left pleural effusion. Resolved right perihilar atelectasis. Otherwise little change since prior study of 7 days earlier
[2020-05-14 12:00] VITALS: BP 126/78
--- NOTE | 2020-05-14 13:02 | Pulmonology Progress Note ---
Subjective Interval Events: None new Constitutional: Denies: fever - lgt HEENT: Repors: no symptoms Respiratory: Reports: no symptoms Cardiovascular: Reports: no symptoms Gastrointestinal/Abdominal: Denies: nausea, vomiting, diarrhea Psychiatric: Reports: depression Skin: Reports: rash Musculoskeletal: Reports: pain Allergies: Coded Allergies: ADHESIVE TAPE (Verified Adverse Reaction, Intermediate, Rash, 08/27/19) CLEAR TAPE Objective Last 24 Hour Vital Signs Date Time Temp Pulse Resp B/P (MAP) Pulse Ox O2 Delivery O2 Flow Rate FiO2 05/14/20 12:00 98.4 110 17 126/78 (94) 95 05/14/20 09:00 Room Air 05/14/20 07:42 98.9 108 17 133/78 (96) 95 05/14/20 04:00 98.5 112 18 150/91 (110) 94 05/14/20 00:00 98.2 105 20 148/94 (112) 93 05/13/20 21:34 Room Air 05/13/20 20:00 98.4 113 18 154/98 (116) 95 05/13/20 16:04 99.2 113 20 140/96 (111) 99 05/13/20 16:00 98.9 113 20 140/96 (111) 99 Intake and Output 05/13/20 05/14/20 19:00 07:00 Intake Total 1668 ml 1229 ml Output Total 1250 ml 1460 ml Balance 418 ml -231 ml Intake Oral 600 ml 240 ml IV Total 1068 ml 989 ml Output Urine Total 1000 ml 1050 ml Other 250 ml 410 ml # Voids 2 General Appearance: no acute distress HEENT: normocephalic Respiratory: chest wall non-tender, lungs clear Cardiovascular: normal peripheral pulses Abdomen: normal bowel sounds Laboratory Tests 05/13/20 23:17: POC Whole Blood Glucose 113H 05/14/20 04:50: White Blood Count 11.7H, Red Blood Count 3.51L, Hemoglobin 11.2L, Hematocrit 34.2L, Mean Corpuscular Volume 97, Mean Corpuscular Hemoglobin 32.0H, Mean Corpuscular Hemoglobin Concent 32.8, Red Cell Distribution Width 13.0, Platelet Count 136#L, Mean Platelet Volume 12.1H, Neutrophils (%) (Auto) 76.2H, Lymphocytes (%) (Auto) 10.9L, Monocytes (%) (Auto) 11.4H, Eosinophils (%) (Auto ) 0.0, Basophils (%) (Auto) 1.4, Sodium Level 135L, Potassium Level 4.0, Chloride Level 100, Carbon Dioxide Level 28, Anion Gap 8, Blood Urea Nitrogen 14 , Creatinine 0.9, Estimat Glomerular Filtration Rate > 60, Glucose Level 116H, Calcium Level 8.4L, Phosphorus Level 3.4, Magnesium Level 1.6L, Total Bilirubin 0.7, Aspartate Amino Transf (AST/SGOT) 17, Alanine Aminotransferase (ALT/SGPT) 17, Alkaline Phosphatase 188H, Total Protein 7.6, Albumin 2.4L, Globulin 5.2, Albumin/Globulin Ratio 0.5L 05/14/20 04:52: POC Whole Blood Glucose 113H Current Medications Medications (Trade) Dose Ordered Sig/Jori Route PRN Reason Start Time Stop Time Status Last Admin Dose Admin Acetaminophen (Tylenol) 1,000 mg Q4H PRN GT temp>100.2 or headache 04/29/20 15:45 05/29/20 15:44 05/10/20 20:46 Acetaminophen/ Hydrocodone Bitart ([place] 5/325) 1 tab Q4H PRN ORAL pain 05/11/20 08:45 05/18/20 08:44 05/14/20 05:22 Alprazolam (Xanax) 0.25 mg Q4H PRN ORAL For Anxiety 05/14/20 10:45 05/21/20 10:44 Bupropion HCl (Wellbutrin SR) 200 mg TWICE A DAY ORAL 04/26/20 21:00 05/26/20 20:59 05/14/20 09:05 Chlorhexidine Gluconate (Kathryn-Hex 2%) 1 applic DAILY@2000 TOPIC 04/27/20 20:00 07/26/20 19:59 05/13/20 20:19 Citalopram Hydrobromide (CeleXA) 20 mg DAILY ORAL 04/26/20 21:00 05/27/20 08:59 05/14/20 09:05 Dextrose 1,000 ml @ 0 mls/hr Q24H PRN IV PN interrupted or unavailable 04/28/20 08:30 05/28/20 08:29 Dextrose (Dextrose 50%) 25 ml Q30M PRN IV Hypoglycemia 04/28/20 08:30 07/27/20 08:29 Dextrose (Dextrose 50%) 50 ml Q30M PRN IV Hypoglycemia 04/28/20 08:30 07/27/20 08:29 Dextrose/ Electrolytes 1,000 ml @ 10 mls/hr Q24H IV 05/09/20 10:00 05/28/20 09:59 05/13/20 10:27 Fat Emulsion Intravenous 216 ml/Amino Acids/ Electrolytes/ Dextrose 1,896 ml @ 79 mls/hr Q24H IV 05/09/20 21:00 06/08/20 20:59 05/13/20 20:48 Folic Acid (Folate) 1 mg DAILY ORAL 04/27/20 10:30 05/27/20 10:29 05/14/20 09:04 Insulin Aspart (NovoLOG) Q6HR SUBQ 04/29/20 00:00 07/28/20 00:00 05/14/20 12:29 Magnesium Sulfate 100 ml @ 100 mls/hr Q1H IVPB 05/14/20 10:30 05/14/20 14:29 05/14/20 12:17 Metoclopramide HCl (Reglan) 10 mg DAILYPRN PRN IVP Nausea & Vomiting 05/14/20 10:45 06/13/20 10:44 Miconazole Nitrate (Monistat) 1 applic BEDTIME VAGIN 05/11/20 21:00 08/09/20 20:59 05/13/20 20:37 Ondansetron HCl (Zofran) 4 mg Q4H PRN IVP Nausea & Vomiting 04/29/20 15:45 05/29/20 15:44 05/11/20 08:42 Pantoprazole (Protonix) 40 mg DAILY IVP 04/30/20 09:00 05/30/20 08:59 05/14/20 09:04 Patient Own Medication (Patient's Own Med) 1 ea QHS ORAL 05/13/20 21:00 06/12/20 20:59 05/13/20 20:37 Trazodone HCl (Desyrel) 300 mg BEDTIME PRN ORAL Insomnia 05/12/20 15:00 05/27/20 20:59 Assessment/Plan Assessment/Plan IMPRESSION: 1. Atelectasis, right lung. 2. Postnasal drip/allergic rhinitis. 3. Status post laparotomy and lysis of adhesions. 4. Chronic pain. 5. Ulcerative colitis. DISCUSSION: The patient is on broad-spectrum antibiotics for intraabdominal abscess. I concur with their use at this time. Her respiratory status is stable. She is saturating well on room air. Zenon Montoya Omar Syed MD May 14, 2020 13:02
[2020-05-14 15:17] LABS: APPEARANCE,URINE CLOUDY; BILIRUBIN, URINE NEGATIVE (NEGATIVE); COLOR,URINE PALE YELLOW; GLUCOSE, URINE (UA) NEGATIVE (NEGATIVE); KETONES,URINE NEGATIVE (NEGATIVE); LEUKOCYTE ESTERASE ,URINE 1+ (NEGATIVE); NITRITE,URINE NEGATIVE (NEGATIVE); PH,URINE 5 (4.5-8.0); PROTEIN,URINE 1+ (NEGATIVE); UROBILINOGEN,URINE NORMAL MG/DL (0.0-1.0)
[2020-05-14 16:00] VITALS: BP 106/62
[2020-05-14] MEDS: ALPRAZolam 0.25mg tab ORAL PRN (18:11)
--- NOTE | 2020-05-14 18:43 | Hematology/Onc Progress Note ---
Assessment/Plan Assessment/Plan ASSESSMENT AND PLAN: # SEVERE Thrombocytopenia that is severe, on admission, plt was wnl and now dropped to 8K The patient comes in with high-grade bowel obstruction and malfunction Kock pouch continent ileostomy. The patient is status post surgery including release of the bowel obstruction. The patient was noted to have pus in small intra-abdominal abscess. It was growing out Klebsiella pneumoniae and Enterococcus. The patient has a low platele count and could be secondary to cefepime, which the patient is on. --> cefepime has been stopped, likely culprits --> as per ID antibiotics, vancomycin, Cipro, and Flagyl. --> dic panel has been ordered --> peripheral smear has been ordered as well --> hapto neg and fibrinogen 738 --> hold off steroids --> no heparin or lovenox administered recently --> duplex lower ext ordered-->neg for dvt --> transfuse 2 units plt 05/07 --> plt trend 8k-->6k->34-->73->46->60-->74-->136 --> HIT antbody test ordered-->pending --> cr is wnl, less likely aHUS, also no schistocytes on smear noted --> also less likely iTP but is in differential ==>> consider bone marrow biopsy if labs not better # Anemia likely due to hemoldilution --> likely hemodilutional and chronic disease --> hgb trend 9.6-->9.4-->11.2 # The patient has a history of Kock pouch continent ileostomy. # History of ulcerative colitis. # History of multiple abdominal surgeries. # History of spine surgery. # History of parathyroid adenoma. # History of proctocolectomy. # History of laparotomy. The timing of this note does not necessarily reflect the time of the patient was seen. Greatly appreciate consultation. Subjective Allergies: Coded Allergies: ADHESIVE TAPE (Verified Adverse Reaction, Intermediate, Rash, 08/27/19) CLEAR TAPE Subjective 05/08 gtube connected, plts 6k, ordered for transfusion, consider ahus as well, will get hit ab test 05/10 plt is 73, no bleeding, feelingbetter, holding off transfusion 05/11 labs are noted, no bleeding, plt 46k, remains on antibiotics, may consider biopsy tomorrow if labs do not improve 05/12 plt is better, gtube is clamped, no bleeding, no bleeding 05/13 platelets have briskly improved, dw pt and will hold off marrow 05/14 awake and alert, new small pleural effusion, no sob Objective Objective Current Medications Medications (Trade) Dose Ordered Sig/Jori Route PRN Reason Start Time Stop Time Status Last Admin Dose Admin Acetaminophen (Tylenol) 1,000 mg Q4H PRN GT temp>100.2 or headache 04/29/20 15:45 05/29/20 15:44 05/10/20 20:46 Acetaminophen/ Hydrocodone Bitart ([place] 5/325) 1 tab Q4H PRN ORAL pain 05/11/20 08:45 05/18/20 08:44 05/14/20 15:34 Alprazolam (Xanax) 0.25 mg Q4H PRN ORAL For Anxiety 05/14/20 10:45 05/21/20 10:44 05/14/20 18:11 Bupropion HCl (Wellbutrin SR) 200 mg TWICE A DAY ORAL 04/26/20 21:00 05/26/20 20:59 05/14/20 17:29 Chlorhexidine Gluconate (Kathryn-Hex 2%) 1 applic DAILY@2000 TOPIC 04/27/20 20:00 07/26/20 19:59 05/13/20 20:19 Citalopram Hydrobromide (CeleXA) 20 mg DAILY ORAL 04/26/20 21:00 05/27/20 08:59 05/14/20 09:05 Dextrose 1,000 ml @ 0 mls/hr Q24H PRN IV PN interrupted or unavailable 04/28/20 08:30 05/28/20 08:29 Dextrose (Dextrose 50%) 25 ml Q30M PRN IV Hypoglycemia 04/28/20 08:30 07/27/20 08:29 Dextrose (Dextrose 50%) 50 ml Q30M PRN IV Hypoglycemia 04/28/20 08:30 07/27/20 08:29 Dextrose/ Electrolytes 1,000 ml @ 10 mls/hr Q24H IV 05/09/20 10:00 05/28/20 09:59 05/14/20 17:29 Fat Emulsion Intravenous 216 ml/Amino Acids/ Electrolytes/ Dextrose 1,896 ml @ 79 mls/hr Q24H IV 05/09/20 21:00 06/08/20 20:59 05/13/20 20:48 Folic Acid (Folate) 1 mg DAILY ORAL 04/27/20 10:30 05/27/20 10:29 05/14/20 09:04 Insulin Aspart (NovoLOG) Q6HR SUBQ 04/29/20 00:00 07/28/20 00:00 05/14/20 12:29 Metoclopramide HCl (Reglan) 10 mg DAILYPRN PRN IVP Nausea & Vomiting 05/14/20 10:45 06/13/20 10:44 Miconazole Nitrate (Monistat) 1 applic BEDTIME VAGIN 05/11/20 21:00 08/09/20 20:59 05/13/20 20:37 Ondansetron HCl (Zofran) 4 mg Q4H PRN IVP Nausea & Vomiting 04/29/20 15:45 05/29/20 15:44 05/14/20 17:31 Pantoprazole (Protonix) 40 mg DAILY IVP 04/30/20 09:00 05/30/20 08:59 05/14/20 09:04 Patient Own Medication (Patient's Own Med) 1 ea QHS ORAL 05/13/20 21:00 06/12/20 20:59 05/13/20 20:37 Trazodone HCl (Desyrel) 300 mg BEDTIME PRN ORAL Insomnia 05/12/20 15:00 05/27/20 20:59 Last 24 Hour Vital Signs Date Time Temp Pulse Resp B/P (MAP) Pulse Ox O2 Delivery O2 Flow Rate FiO2 05/14/20 16:00 98.3 107 17 106/62 (77) 94 05/14/20 12:00 98.4 110 17 126/78 (94) 95 05/14/20 09:00 Room Air 05/14/20 07:42 98.9 108 17 133/78 (96) 95 05/14/20 04:00 98.5 112 18 150/91 (110) 94 05/14/20 00:00 98.2 105 20 148/94 (112) 93 05/13/20 21:34 Room Air 05/13/20 20:00 98.4 113 18 154/98 (116) 95 05/13/20 16:04 99.2 113 20 140/96 (111) 99 05/13/20 16:00 98.9 113 20 140/96 (111) 99 05/13/20 12:00 98.8 109 19 142/89 (106) 97 05/13/20 11:58 100.0 109 19 142/89 (106) 97 05/13/20 09:00 Room Air 05/13/20 08:00 97.0 102 21 137/88 (104) 99 05/13/20 04:00 98.5 100 20 128/74 (92) 95 05/13/20 00:00 98.3 96 21 125/78 (94) 96 05/12/20 20:20 Room Air 05/12/20 20:00 98.5 91 19 130/76 (94) 96 05/12/20 19:00 96 Room Air 21 Intake and Output 05/13/20 05/14/20 19:00 07:00 Intake Total 1668 ml 1349 ml Output Total 1250 ml 1460 ml Balance 418 ml -111 ml Intake Oral 600 ml 360 ml IV Total 1068 ml 989 ml Output Urine Total 1000 ml 1050 ml Other 250 ml 410 ml # Voids 2 Labs Test 05/12/20 05:05 05/12/20 08:30 05/12/20 11:37 05/13/20 04:45 White Blood Count 8.2 K/UL (4.8-10.8) 7.8 K/UL (4.8-10.8) Red Blood Count 2.98 M/UL (4.20-5.40) 3.33 M/UL (4.20-5.40) Hemoglobin 9.4 G/DL (12.0-16.0) 10.7 G/DL (12.0-16.0) Hematocrit 29.2 % (37.0-47.0) 32.8 % (37.0-47.0) Mean Corpuscular Volume 98 FL (80-99) 98 FL (80-99) Mean Corpuscular Hemoglobin 31.7 PG (27.0-31.0) 32.0 PG (27.0-31.0) Mean Corpuscular Hemoglobin Concent 32.2 G/DL (32.0-36.0) 32.6 G/DL (32.0-36.0) Red Cell Distribution Width 12.8 % (11.6-14.8) 13.0 % (11.6-14.8) Platelet Count 60 K/UL (150-450) 74 K/UL (150-450) Mean Platelet Volume 16.0 FL (6.5-10.1) 12.4 FL (6.5-10.1) Neutrophils (%) (Auto) % (45.0-75.0) % (45.0-75.0) Lymphocytes (%) (Auto) % (20.0-45.0) % (20.0-45.0) Monocytes (%) (Auto) % (1.0-10.0) % (1.0-10.0) Eosinophils (%) (Auto) % (0.0-3.0) % (0.0-3.0) Basophils (%) (Auto) % (0.0-2.0) % (0.0-2.0) Differential Total Cells Counted 100 Neutrophils % (Manual) 87 % (45-75) Lymphocytes % (Manual) 8 % (20-45) Monocytes % (Manual) 5 % (1-10) Eosinophils % (Manual) 0 % (0-3) Basophils % (Manual) 0 % (0-2) Band Neutrophils 0 % (0-8) Platelet Estimate Decreased Platelet Morphology Normal Hypochromasia 2+ Anisocytosis 1+ Sodium Level 139 MMOL/L (136-145) 141 MMOL/L (136-145) Potassium Level 3.7 MMOL/L (3.5-5.1) 3.9 MMOL/L (3.5-5.1) Chloride Level 104 MMOL/L (98-107) 105 MMOL/L (98-107) Carbon Dioxide Level 29 MMOL/L (21-32) 27 MMOL/L (21-32) Anion Gap 6 mmol/L (5-15) 9 mmol/L (5-15) Blood Urea Nitrogen 14 mg/dL (7-18) 13 mg/dL (7-18) Creatinine 0.9 MG/DL (0.55-1.30) 0.8 MG/DL (0.55-1.30) Estimat Glomerular Filtration Rate > 60 mL/min (>60) > 60 mL/min (>60) Glucose Level 102 MG/DL (74-106) 118 MG/DL (74-106) Calcium Level 8.3 MG/DL (8.5-10.1) 8.1 MG/DL (8.5-10.1) Phosphorus Level 2.8 MG/DL (2.5-4.9) 2.8 MG/DL (2.5-4.9) Magnesium Level 1.6 MG/DL (1.8-2.4) 1.8 MG/DL (1.8-2.4) Total Bilirubin 0.6 MG/DL (0.2-1.0) 0.6 MG/DL (0.2-1.0) Aspartate Amino Transf (AST/SGOT) 15 U/L (15-37) 17 U/L (15-37) Alanine Aminotransferase (ALT/SGPT) 11 U/L (12-78) 12 U/L (12-78) Alkaline Phosphatase 162 U/L (46-116) 179 U/L (46-116) Total Protein 6.9 G/DL (6.4-8.2) 7.4 G/DL (6.4-8.2) Albumin 2.2 G/DL (3.4-5.0) 2.3 G/DL (3.4-5.0) Globulin 4.7 g/dL 5.1 g/dL Albumin/Globulin Ratio 0.5 (1.0-2.7) 0.5 (1.0-2.7) Vancomycin Level Trough 15.6 ug/mL (5.0-12.0) Test 05/13/20 12:02 05/13/20 23:17 05/14/20 04:50 05/14/20 04:52 POC Whole Blood Glucose 120 MG/DL (74-106) 113 MG/DL (74-106) 113 MG/DL (74-106) White Blood Count 11.7 K/UL (4.8-10.8) Red Blood Count 3.51 M/UL (4.20-5.40) Hemoglobin 11.2 G/DL (12.0-16.0) Hematocrit 34.2 % (37.0-47.0) Mean Corpuscular Volume 97 FL (80-99) Mean Corpuscular Hemoglobin 32.0 PG (27.0-31.0) Mean Corpuscular Hemoglobin Concent 32.8 G/DL (32.0-36.0) Red Cell Distribution Width 13.0 % (11.6-14.8) Platelet Count 136 K/UL (150-450) Mean Platelet Volume 12.1 FL (6.5-10.1) Neutrophils (%) (Auto) 76.2 % (45.0-75.0) Lymphocytes (%) (Auto) 10.9 % (20.0-45.0) Monocytes (%) (Auto) 11.4 % (1.0-10.0) Eosinophils (%) (Auto) 0.0 % (0.0-3.0) Basophils (%) (Auto) 1.4 % (0.0-2.0) Sodium Level 135 MMOL/L (136-145) Potassium Level 4.0 MMOL/L (3.5-5.1) Chloride Level 100 MMOL/L (98-107) Carbon Dioxide Level 28 MMOL/L (21-32) Anion Gap 8 mmol/L (5-15) Blood Urea Nitrogen 14 mg/dL (7-18) Creatinine 0.9 MG/DL (0.55-1.30) Estimat Glomerular Filtration Rate > 60 mL/min (>60) Glucose Level 116 MG/DL (74-106) Calcium Level 8.4 MG/DL (8.5-10.1) Phosphorus Level 3.4 MG/DL (2.5-4.9) Magnesium Level 1.6 MG/DL (1.8-2.4) Total Bilirubin 0.7 MG/DL (0.2-1.0) Aspartate Amino Transf (AST/SGOT) 17 U/L (15-37) Alanine Aminotransferase (ALT/SGPT) 17 U/L (12-78) Alkaline Phosphatase 188 U/L (46-116) Total Protein 7.6 G/DL (6.4-8.2) Albumin 2.4 G/DL (3.4-5.0) Globulin 5.2 g/dL Albumin/Globulin Ratio 0.5 (1.0-2.7) Test 05/14/20 14:55 Urine Color Pale yellow Urine Appearance Cloudy Urine pH 5 (4.5-8.0) Urine Specific [place] 1.020 (1.005-1.035) Urine Protein 1+ (NEGATIVE) Urine Glucose (UA) Negative (NEGATIVE) Urine Ketones Negative (NEGATIVE) Urine Blood 3+ (NEGATIVE) Urine Nitrite Negative (NEGATIVE) Urine Bilirubin Negative (NEGATIVE) Urine Urobilinogen Normal MG/DL (0.0-1.0) Urine Leukocyte Esterase 1+ (NEGATIVE) Urine RBC 5-10 /HPF (0 - 2) Urine WBC 0-2 /HPF (0 - 2) Urine Squamous Epithelial Cells Moderate /LPF (NONE/OCC) Urine Bacteria Many /HPF (NONE) Height (Feet): 5 Height (Inches): 3.00 Weight (Pounds): 139 Objective Physical Exam: Vitals: reviewed General: NAD HEENT: nc, at Neck: supple Chest: clear breath sounds bilaterally Cardiovascular: RRR, no s3, s4 Abdomen: soft, nontender, nd ++gtube, Kouch pouch ++ midline scar site is c/d/i Extremities: no cce, normal range of motion Neuro: alert and oriented Cecilio Grey MD May 14, 2020 18:42
[2020-05-14 20:00] VITALS: BP 123/75
[2020-05-14] MEDS: Fat Emulsion Iv 20% 216 ML in Tpn 1,680 ML IV SCH (21:01)
[2020-05-14] MEDS: Miconazole Vag Cr 45gm Tube (100mg per applicator) VAGIN SCH (21:02)
[2020-05-14] MEDS: MYRBETRIQ 50 MG ORAL SCH (21:02)
[2020-05-14] MEDS: Dyna-Hex 2% Top Sol 2oz TOPIC SCH (21:03)
[2020-05-15] VITALS: BP 129/79
[2020-05-15] MEDS: HYDROcodone/Acetamin 5/325 tab ORAL PRN ×4 (03:42→23:38)
[2020-05-15 04:00] VITALS: BP 122/79
[2020-05-15] MEDS: NovoLOG Insulin Flexpen SUBQ SCH ×4 (05:38→23:26)
[2020-05-15] MEDS: ALPRAZolam 0.25mg tab ORAL PRN ×2 (05:48→10:36)
[2020-05-15 05:51] LABS: BASOPHILS % (AUTO) 2.2 % (0.0-2.0); HEMATOCRIT 34.1 % (37.0-47.0); LYMPHOCYTES % (AUTO) 14.6 % (20.0-45.0); MEAN CORPUSCULAR VOLUME 99 FL (80-99); MONOCYTES % (AUTO) 12.6 % (1.0-10.0); NEUTROPHILS % (AUTO) 70.7 % (45.0-75.0); PLATELET COUNT 186 K/UL (150-450); RED BLOOD COUNT 3.43 M/UL (4.20-5.40); RED CELL DISTRIBUTION WIDTH 13.5 % (11.6-14.8); WHITE BLOOD COUNT 7.9 K/UL (4.8-10.8)
[2020-05-15 07:23] LABS: ALANINE AMINOTRANSFERASE 18 U/L (12-78); ALBUMIN 2.3 G/DL (3.4-5.0); ALBUMIN/GLOBULIN RATIO 0.5 (1.0-2.7); ALKALINE PHOSPHATASE 163 U/L (46-116); ANION GAP 6 mmol/L (5-15); ASPARTATE AMINO TRANSFERASE 18 U/L (15-37); BILIRUBIN,TOTAL 0.4 MG/DL (0.2-1.0); BLOOD UREA NITROGEN 20 mg/dL (7-18); CARBON DIOXIDE 28 MMOL/L (21-32); CHLORIDE 105 MMOL/L (98-107); PHOSPHORUS 3.9 MG/DL (2.5-4.9); POTASSIUM 5.2 MMOL/L (3.5-5.1); SODIUM 139 MMOL/L (136-145)
[2020-05-15 08:00] VITALS: BP 124/73
--- NOTE | 2020-05-15 09:03 | Hematology/Onc Progress Note ---
Assessment/Plan Assessment/Plan ASSESSMENT AND PLAN: # SEVERE Thrombocytopenia that is severe, on admission, plt was wnl and now dropped to 8K The patient comes in with high-grade bowel obstruction and malfunction Kock pouch continent ileostomy. The patient is status post surgery including release of the bowel obstruction. The patient was noted to have pus in small intra-abdominal abscess. It was growing out Klebsiella pneumoniae and Enterococcus. The patient has a low platele count and could be secondary to cefepime, which the patient is on. --> cefepime has been stopped, likely culprits --> as per ID antibiotics, vancomycin, Cipro, and Flagyl. --> dic panel has been ordered --> peripheral smear has been ordered as well --> hapto neg and fibrinogen 738 --> hold off steroids --> no heparin or lovenox administered recently --> duplex lower ext ordered-->neg for dvt --> transfuse 2 units plt 05/07 --> plt trend 8k-->6k->34-->73->46->60-->74-->136-->163 --> HIT antbody test ordered-->neg --> cr is wnl, less likely aHUS, also no schistocytes on smear noted --> also less likely iTP but is in differential ==>> consider bone marrow biopsy if labs not better # Anemia likely due to hemoldilution --> likely hemodilutional and chronic disease --> hgb trend 9.6-->9.4-->11.2 # The patient has a history of Kock pouch continent ileostomy. # History of ulcerative colitis. # History of multiple abdominal surgeries. # History of spine surgery. # History of parathyroid adenoma. # History of proctocolectomy. # History of laparotomy. The timing of this note does not necessarily reflect the time of the patient was seen. Greatly appreciate consultation. Subjective HEENT: Denies: no symptoms, eye pain, blurred vision, tearing, double vision, ear pain, ear discharge, nose pain, nose congestion, throat pain, throat swelling, mouth pain, mouth swelling, other Cardiovascular: Denies: no symptoms, chest pain, edema, irregular heart rate, lightheadedness, palpitations, syncope, other Respiratory: Denies: no symptoms, cough, shortness of breath, SOB with excertion, SOB at rest, sputum, wheezing, other Gastrointestinal/Abdominal: Denies: no symptoms, abdomen distended, abdominal pain, black stools, tarry stools, blood in stool, constipated, diarrhea, difficulty swallowing, nausea, poor appetite, poor fluid intake, rectal bleeding , vomiting, other Neurologic/Psychiatric: Denies: no symptoms, anxiety, depressed, emotional problems, headache, numbness, paresthesia, pre-existing deficit, seizure, tingling, tremors, weakness, other Endocrine: Denies: no symptoms, excessive sweating, flushing, intolerance to cold, intolerance to heat, increased hunger, increased thirst, increased urine, unexplained weight gain, unexplained weight loss, other Allergies: Coded Allergies: ADHESIVE TAPE (Verified Adverse Reaction, Intermediate, Rash, 08/27/19) CLEAR TAPE Subjective 05/08 gtube connected, plts 6k, ordered for transfusion, consider ahus as well, will get hit ab test 05/10 plt is 73, no bleeding, feelingbetter, holding off transfusion 05/11 labs are noted, no bleeding, plt 46k, remains on antibiotics, may consider biopsy tomorrow if labs do not improve 05/12 plt is better, gtube is clamped, no bleeding, no bleeding 05/13 platelets have briskly improved, dw pt and will hold off marrow 05/14 awake and alert, new small pleural effusion, no sob 05/15 meds noted, no bleeding, dw rn, no night sweats, still with pain abdominal Objective Objective Current Medications Medications (Trade) Dose Ordered Sig/Jori Route PRN Reason Start Time Stop Time Status Last Admin Dose Admin Acetaminophen (Tylenol) 1,000 mg Q4H PRN GT temp>100.2 or headache 04/29/20 15:45 05/29/20 15:44 05/10/20 20:46 Acetaminophen/ Hydrocodone Bitart ([place] 5/325) 1 tab Q4H PRN ORAL pain 05/11/20 08:45 05/18/20 08:44 05/15/20 07:56 Alprazolam (Xanax) 0.25 mg Q4H PRN ORAL For Anxiety 05/14/20 10:45 05/21/20 10:44 05/15/20 05:48 Bupropion HCl (Wellbutrin SR) 200 mg TWICE A DAY ORAL 6/28/20 21:00 05/26/20 20:59 05/14/20 17:29 Chlorhexidine Gluconate (Kathryn-Hex 2%) 1 applic DAILY@2000 TOPIC 04/27/20 20:00 07/26/20 19:59 05/14/20 21:03 Citalopram Hydrobromide (CeleXA) 20 mg DAILY ORAL 04/26/20 21:00 05/27/20 08:59 05/14/20 09:05 Dextrose 1,000 ml @ 0 mls/hr Q24H PRN IV PN interrupted or unavailable 04/28/20 08:30 05/28/20 08:29 Dextrose (Dextrose 50%) 25 ml Q30M PRN IV Hypoglycemia 04/28/20 08:30 07/27/20 08:29 Dextrose (Dextrose 50%) 50 ml Q30M PRN IV Hypoglycemia 04/28/20 08:30 07/27/20 08:29 Dextrose/ Electrolytes 1,000 ml @ 10 mls/hr Q24H IV 05/09/20 10:00 05/28/20 09:59 05/14/20 17:29 Fat Emulsion Intravenous 216 ml/Amino Acids/ Electrolytes/ Dextrose 1,896 ml @ 79 mls/hr Q24H IV 05/09/20 21:00 06/08/20 20:59 05/14/20 21:01 Folic Acid (Folate) 1 mg DAILY ORAL 04/27/20 10:30 05/27/20 10:29 05/14/20 09:04 Insulin Aspart (NovoLOG) Q6HR SUBQ 04/29/20 00:00 07/28/20 00:00 05/14/20 12:29 Metoclopramide HCl (Reglan) 10 mg DAILYPRN PRN IVP Nausea & Vomiting 05/14/20 10:45 06/13/20 10:44 Miconazole Nitrate (Monistat) 1 applic BEDTIME VAGIN 05/11/20 21:00 08/09/20 20:59 05/14/20 21:02 Ondansetron HCl (Zofran) 4 mg Q4H PRN IVP Nausea & Vomiting 04/29/20 15:45 05/29/20 15:44 05/14/20 17:31 Pantoprazole (Protonix) 40 mg DAILY IVP 04/30/20 09:00 05/30/20 08:59 05/14/20 09:04 Patient Own Medication (Patient's Own Med) 1 ea QHS ORAL 05/13/20 21:00 06/12/20 20:59 05/14/20 21:02 Trazodone HCl (Desyrel) 300 mg BEDTIME PRN ORAL Insomnia 05/12/20 15:00 05/27/20 20:59 Last 24 Hour Vital Signs Date Time Temp Pulse Resp B/P (MAP) Pulse Ox O2 Delivery O2 Flow Rate FiO2 05/15/20 08:00 98.0 98 18 124/73 (90) 96 05/15/20 04:00 98.6 101 18 122/79 (93) 97 05/15/20 00:00 98.8 105 19 129/79 (96) 95 05/14/20 21:00 Room Air 05/14/20 20:00 98.8 110 19 123/75 (91) 95 05/14/20 16:00 98.3 107 17 106/62 (77) 94 05/14/20 12:00 98.4 110 17 126/78 (94) 95 05/14/20 09:00 Room Air 05/14/20 07:42 98.9 108 17 133/78 (96) 95 05/14/20 04:00 98.5 112 18 150/91 (110) 94 05/14/20 00:00 98.2 105 20 148/94 (112) 93 05/13/20 21:34 Room Air 05/13/20 20:00 98.4 113 18 154/98 (116) 95 05/13/20 16:04 99.2 113 20 140/96 (111) 99 05/13/20 16:00 98.9 113 20 140/96 (111) 99 05/13/20 12:00 98.8 109 19 142/89 (106) 97 05/13/20 11:58 100.0 109 19 142/89 (106) 97 Intake and Output 05/14/20 05/15/20 19:00 07:00 Intake Total 1995 ml 1439 ml Output Total 1975 ml 1910 ml Balance 20 ml -471 ml Intake Oral 597 ml 450 ml IV Total 1398 ml 989 ml Output Urine Total 1550 ml 1570 ml Other 425 ml 340 ml # Voids 5 6 Labs Test 05/12/20 11:37 05/12/20 17:02 05/13/20 00:05 05/13/20 04:45 POC Whole Blood Glucose 125 MG/DL (74-106) White Blood Count 7.8 K/UL (4.8-10.8) Red Blood Count 3.33 M/UL (4.20-5.40) Hemoglobin 10.7 G/DL (12.0-16.0) Hematocrit 32.8 % (37.0-47.0) Mean Corpuscular Volume 98 FL (80-99) Mean Corpuscular Hemoglobin 32.0 PG (27.0-31.0) Mean Corpuscular Hemoglobin Concent 32.6 G/DL (32.0-36.0) Red Cell Distribution Width 13.0 % (11.6-14.8) Platelet Count 74 K/UL (150-450) Mean Platelet Volume 12.4 FL (6.5-10.1) Neutrophils (%) (Auto) % (45.0-75.0) Lymphocytes (%) (Auto) % (20.0-45.0) Monocytes (%) (Auto) % (1.0-10.0) Eosinophils (%) (Auto) % (0.0-3.0) Basophils (%) (Auto) % (0.0-2.0) Sodium Level 141 MMOL/L (136-145) Potassium Level 3.9 MMOL/L (3.5-5.1) Chloride Level 105 MMOL/L (98-107) Carbon Dioxide Level 27 MMOL/L (21-32) Anion Gap 9 mmol/L (5-15) Blood Urea Nitrogen 13 mg/dL (7-18) Creatinine 0.8 MG/DL (0.55-1.30) Estimat Glomerular Filtration Rate > 60 mL/min (>60) Glucose Level 118 MG/DL (74-106) Calcium Level 8.1 MG/DL (8.5-10.1) Phosphorus Level 2.8 MG/DL (2.5-4.9) Magnesium Level 1.8 MG/DL (1.8-2.4) Total Bilirubin 0.6 MG/DL (0.2-1.0) Aspartate Amino Transf (AST/SGOT) 17 U/L (15-37) Alanine Aminotransferase (ALT/SGPT) 12 U/L (12-78) Alkaline Phosphatase 179 U/L (46-116) Total Protein 7.4 G/DL (6.4-8.2) Albumin 2.3 G/DL (3.4-5.0) Globulin 5.1 g/dL Albumin/Globulin Ratio 0.5 (1.0-2.7) Test 05/13/20 05:24 05/13/20 12:02 05/13/20 17:27 05/13/20 23:17 POC Whole Blood Glucose 118 MG/DL (74-106) 120 MG/DL (74-106) 113 MG/DL (74-106) Test 05/14/20 04:50 05/14/20 04:52 05/14/20 12:17 05/14/20 14:55 White Blood Count 11.7 K/UL (4.8-10.8) Red Blood Count 3.51 M/UL (4.20-5.40) Hemoglobin 11.2 G/DL (12.0-16.0) Hematocrit 34.2 % (37.0-47.0) Mean Corpuscular Volume 97 FL (80-99) Mean Corpuscular Hemoglobin 32.0 PG (27.0-31.0) Mean Corpuscular Hemoglobin Concent 32.8 G/DL (32.0-36.0) Red Cell Distribution Width 13.0 % (11.6-14.8) Platelet Count 136 K/UL (150-450) Mean Platelet Volume 12.1 FL (6.5-10.1) Neutrophils (%) (Auto) 76.2 % (45.0-75.0) Lymphocytes (%) (Auto) 10.9 % (20.0-45.0) Monocytes (%) (Auto) 11.4 % (1.0-10.0) Eosinophils (%) (Auto) 0.0 % (0.0-3.0) Basophils (%) (Auto) 1.4 % (0.0-2.0) Sodium Level 135 MMOL/L (136-145) Potassium Level 4.0 MMOL/L (3.5-5.1) Chloride Level 100 MMOL/L (98-107) Carbon Dioxide Level 28 MMOL/L (21-32) Anion Gap 8 mmol/L (5-15) Blood Urea Nitrogen 14 mg/dL (7-18) Creatinine 0.9 MG/DL (0.55-1.30) Estimat Glomerular Filtration Rate > 60 mL/min (>60) Glucose Level 116 MG/DL (74-106) Calcium Level 8.4 MG/DL (8.5-10.1) Phosphorus Level 3.4 MG/DL (2.5-4.9) Magnesium Level 1.6 MG/DL (1.8-2.4) Total Bilirubin 0.7 MG/DL (0.2-1.0) Aspartate Amino Transf (AST/SGOT) 17 U/L (15-37) Alanine Aminotransferase (ALT/SGPT) 17 U/L (12-78) Alkaline Phosphatase 188 U/L (46-116) Total Protein 7.6 G/DL (6.4-8.2) Albumin 2.4 G/DL (3.4-5.0) Globulin 5.2 g/dL Albumin/Globulin Ratio 0.5 (1.0-2.7) POC Whole Blood Glucose 113 MG/DL (74-106) 142 MG/DL (74-106) Urine Color Pale yellow Urine Appearance Cloudy Urine pH 5 (4.5-8.0) Urine Specific [place] 1.020 (1.005-1.035) Urine Protein 1+ (NEGATIVE) Urine Glucose (UA) Negative (NEGATIVE) Urine Ketones Negative (NEGATIVE) Urine Blood 3+ (NEGATIVE) Urine Nitrite Negative (NEGATIVE) Urine Bilirubin Negative (NEGATIVE) Urine Urobilinogen Normal MG/DL (0.0-1.0) Urine Leukocyte Esterase 1+ (NEGATIVE) Urine RBC 5-10 /HPF (0 - 2) Urine WBC 0-2 /HPF (0 - 2) Urine Squamous Epithelial Cells Moderate /LPF (NONE/OCC) Urine Bacteria Many /HPF (NONE) Test 05/14/20 17:28 05/14/20 23:25 05/15/20 05:25 05/15/20 05:38 POC Whole Blood Glucose 114 MG/DL (74-106) 120 MG/DL (74-106) 122 MG/DL (74-106) White Blood Count 7.9 K/UL (4.8-10.8) Red Blood Count 3.43 M/UL (4.20-5.40) Hemoglobin 11.0 G/DL (12.0-16.0) Hematocrit 34.1 % (37.0-47.0) Mean Corpuscular Volume 99 FL (80-99) Mean Corpuscular Hemoglobin 32.0 PG (27.0-31.0) Mean Corpuscular Hemoglobin Concent 32.2 G/DL (32.0-36.0) Red Cell Distribution Width 13.5 % (11.6-14.8) Platelet Count 186 K/UL (150-450) Mean Platelet Volume 10.4 FL (6.5-10.1) Neutrophils (%) (Auto) 70.7 % (45.0-75.0) Lymphocytes (%) (Auto) 14.6 % (20.0-45.0) Monocytes (%) (Auto) 12.6 % (1.0-10.0) Eosinophils (%) (Auto) 0.0 % (0.0-3.0) Basophils (%) (Auto) 2.2 % (0.0-2.0) Sodium Level 139 MMOL/L (136-145) Potassium Level 5.2 MMOL/L (3.5-5.1) Chloride Level 105 MMOL/L (98-107) Carbon Dioxide Level 28 MMOL/L (21-32) Anion Gap 6 mmol/L (5-15) Blood Urea Nitrogen 20 mg/dL (7-18) Creatinine 1.0 MG/DL (0.55-1.30) Estimat Glomerular Filtration Rate 55.0 mL/min (>60) Glucose Level 120 MG/DL (74-106) Calcium Level 9.0 MG/DL (8.5-10.1) Phosphorus Level 3.9 MG/DL (2.5-4.9) Magnesium Level 2.1 MG/DL (1.8-2.4) Total Bilirubin 0.4 MG/DL (0.2-1.0) Aspartate Amino Transf (AST/SGOT) 18 U/L (15-37) Alanine Aminotransferase (ALT/SGPT) 18 U/L (12-78) Alkaline Phosphatase 163 U/L (46-116) Total Protein 7.3 G/DL (6.4-8.2) Albumin 2.3 G/DL (3.4-5.0) Globulin 5.0 g/dL Albumin/Globulin Ratio 0.5 (1.0-2.7) Micro Microbiology Date/Time Source Procedure Growth Status 05/14/20 14:55 Urine,Clean Catch Urine Culture - Preliminary NO GROWTH Resulted Height (Feet): 5 Height (Inches): 3.00 Weight (Pounds): 139 Objective Physical Exam: Vitals: reviewed General: NAD HEENT: nc, at Neck: supple Chest: clear breath sounds bilaterally Cardiovascular: RRR, no s3, s4 Abdomen: soft, nontender, nd ++gtube, Kouch pouch ++ midline scar site is c/d/i Extremities: no cce, normal range of motion Neuro: alert and oriented Cecilio Grey MD May 15, 2020 09:03
[2020-05-15] MEDS: Citalopram Hydrobromide 10mg Tab ORAL SCH (09:09)
[2020-05-15] MEDS: BuPROPion SR 100mg tab ORAL SCH ×2 (09:09→17:43)
[2020-05-15] MEDS: Pantoprazole Inj IVP SCH (09:10)
[2020-05-15] MEDS ORDERED: Gastrograffin 30ml ORAL PRN (11:00)
--- NOTE | 2020-05-15 11:12 | General Progress Note ---
Progress Note Progress Note Afebrile off antibiotics, tachycardia improved, CXR and EKG okay Anxiety improved with alprazolam Still c/o abdominal pain with po intake - eating only 15% BCIR diet Abdomen soft, flat, non-tender, healing well, stoma stable Urine 3120 Kock pouch ileo 665 Gastrostomy plugged WBC down 7900 Hgb 11 Platelets up 186,000 BUN 20 Cr 1 K 5.2 albumin 2.3 U/A ?uti - C&S prelim no growth, blood C&S from PICC pending in micro Imp: Abdominal pain with oral intake Malnutrition present on admission and despite TPN Plan; Gastrograffin UGI with small bowel series continue TPN, f/u labs Lalo Meadows MD May 15, 2020 11:12
[2020-05-15] MEDS ORDERED: ALPRAZolam 0.25mg tab ORAL PRN (11:15)
[2020-05-15 12:00] VITALS: BP 114/79
[2020-05-15] MEDS: Ketorolac 30mg Inj IV PRN (14:07)
--- NOTE | 2020-05-15 14:07 | Pulmonology Progress Note ---
Subjective Interval Events: None new Constitutional: Denies: fever - lgt HEENT: Repors: no symptoms Respiratory: Reports: no symptoms Cardiovascular: Reports: no symptoms Gastrointestinal/Abdominal: Denies: nausea, vomiting, diarrhea Psychiatric: Reports: depression Skin: Reports: rash Musculoskeletal: Reports: pain Allergies: Coded Allergies: ADHESIVE TAPE (Verified Adverse Reaction, Intermediate, Rash, 08/27/19) CLEAR TAPE Objective Last 24 Hour Vital Signs Date Time Temp Pulse Resp B/P (MAP) Pulse Ox O2 Delivery O2 Flow Rate FiO2 05/15/20 09:00 Room Air 05/15/20 08:26 98.0 05/15/20 08:00 98.0 98 18 124/73 (90) 96 05/15/20 04:00 98.6 101 18 122/79 (93) 97 05/15/20 00:00 98.8 105 19 129/79 (96) 95 05/14/20 21:00 Room Air 05/14/20 20:00 98.8 110 19 123/75 (91) 95 05/14/20 16:00 98.3 107 17 106/62 (77) 94 Intake and Output 05/14/20 05/15/20 19:00 07:00 Intake Total 1995 ml 1439 ml Output Total 1975 ml 1910 ml Balance 20 ml -471 ml Intake Oral 597 ml 450 ml IV Total 1398 ml 989 ml Output Urine Total 1550 ml 1570 ml Other 425 ml 340 ml # Voids 5 6 General Appearance: no acute distress HEENT: normocephalic Respiratory: chest wall non-tender, lungs clear Cardiovascular: normal peripheral pulses Abdomen: normal bowel sounds Microbiology Date/Time Source Procedure Growth Status 05/14/20 14:55 Urine,Clean Catch Urine Culture - Preliminary NO GROWTH Resulted Laboratory Tests 05/14/20 14:55: Urine Color Pale yellow, Urine Appearance Cloudy, Urine pH 5, Urine Specific [place] 1.020, Urine Protein 1+H, Urine Glucose (UA) Negative, Urine Ketones Negative, Urine Blood 3+H, Urine Nitrite Negative, Urine Bilirubin Negative, Urine Urobilinogen Normal, Urine Leukocyte Esterase 1+H, Urine RBC 5-10H, Urine WBC 0-2, Urine Squamous Epithelial Cells ModerateH, Urine Bacteria ManyH 05/14/20 17:28: POC Whole Blood Glucose 114H 05/14/20 23:25: POC Whole Blood Glucose 120H 05/15/20 05:25: White Blood Count 7.9, Red Blood Count 3.43L, Hemoglobin 11.0L, Hematocrit 34.1L , Mean Corpuscular Volume 99, Mean Corpuscular Hemoglobin 32.0H, Mean Corpuscular Hemoglobin Concent 32.2, Red Cell Distribution Width 13.5, Platelet Count 186, Mean Platelet Volume 10.4H, Neutrophils (%) (Auto) 70.7, Lymphocytes (%) (Auto) 14.6L, Monocytes (%) (Auto) 12.6H, Eosinophils (%) (Auto) 0.0, Basophils (%) (Auto) 2.2H, Sodium Level 139, Potassium Level 5.2H, Chloride Level 105, Carbon Dioxide Level 28, Anion Gap 6, Blood Urea Nitrogen 20H, Creatinine 1.0, Estimat Glomerular Filtration Rate 55.0, Glucose Level 120H, Calcium Level 9.0, Phosphorus Level 3.9, Magnesium Level 2.1, Total Bilirubin 0.4, Aspartate Amino Transf (AST/SGOT) 18, Alanine Aminotransferase (ALT/SGPT) 18, Alkaline Phosphatase 163H, Total Protein 7.3, Albumin 2.3L, Globulin 5.0, Albumin/Globulin Ratio 0.5L 05/15/20 05:38: POC Whole Blood Glucose 122H 05/15/20 12:04: POC Whole Blood Glucose 117H Current Medications Medications (Trade) Dose Ordered Sig/Jori Route PRN Reason Start Time Stop Time Status Last Admin Dose Admin Acetaminophen (Tylenol) 1,000 mg Q4H PRN GT temp>100.2 or headache 04/29/20 15:45 05/29/20 15:44 05/10/20 20:46 Acetaminophen/ Hydrocodone Bitart ([place] 5/325) 1 tab Q4H PRN ORAL pain 05/11/20 08:45 05/18/20 08:44 05/15/20 07:56 Alprazolam (Xanax) 0.5 mg Q6H PRN ORAL For Anxiety 05/15/20 11:15 05/22/20 11:14 Bupropion HCl (Wellbutrin SR) 200 mg TWICE A DAY ORAL 04/26/20 21:00 05/26/20 20:59 05/15/20 09:09 Chlorhexidine Gluconate (Kathryn-Hex 2%) 1 applic DAILY@2000 TOPIC 04/27/20 20:00 07/26/20 19:59 05/14/20 21:03 Citalopram Hydrobromide (CeleXA) 20 mg DAILY ORAL 04/26/20 21:00 05/27/20 08:59 05/15/20 09:09 Dextrose 1,000 ml @ 0 mls/hr Q24H PRN IV PN interrupted or unavailable 04/28/20 08:30 05/28/20 08:29 Dextrose (Dextrose 50%) 25 ml Q30M PRN IV Hypoglycemia 04/28/20 08:30 07/27/20 08:29 Dextrose (Dextrose 50%) 50 ml Q30M PRN IV Hypoglycemia 04/28/20 08:30 07/27/20 08:29 Dextrose/ Electrolytes 1,000 ml @ 10 mls/hr Q24H IV 05/09/20 10:00 05/28/20 09:59 05/14/20 17:29 Diatrizoate Meglum/ Diatrizoate Sod (Gastrografin) 30 ml NOW PRN ORAL Radiology Procedure 05/15/20 11:00 05/18/20 10:54 Fat Emulsion Intravenous 216 ml/Amino Acids/ Electrolytes/ Dextrose 1,896 ml @ 79 mls/hr Q24H IV 05/09/20 21:00 06/08/20 20:59 05/14/20 21:01 Folic Acid (Folate) 1 mg DAILY ORAL 04/27/20 10:30 05/27/20 10:29 05/15/20 09:10 Insulin Aspart (NovoLOG) Q6HR SUBQ 04/29/20 00:00 07/28/20 00:00 05/14/20 12:29 Ketorolac Tromethamine (Toradol 30mg) 15 mg Q6H PRN IV Severe Breakthru Pain (>7) 05/15/20 11:15 05/20/20 11:14 Metoclopramide HCl (Reglan) 10 mg DAILYPRN PRN IVP Nausea & Vomiting 05/14/20 10:45 06/13/20 10:44 Miconazole Nitrate (Monistat) 1 applic BEDTIME VAGIN 05/11/20 21:00 08/09/20 20:59 05/14/20 21:02 Ondansetron HCl (Zofran) 4 mg Q4H PRN IVP Nausea & Vomiting 04/29/20 15:45 05/29/20 15:44 05/15/20 11:56 Patient Own Medication (Patient's Own Med) 1 ea QHS ORAL 05/13/20 21:00 06/12/20 20:59 05/14/20 21:02 Trazodone HCl (Desyrel) 300 mg BEDTIME PRN ORAL Insomnia 05/12/20 15:00 05/27/20 20:59 Assessment/Plan Assessment/Plan IMPRESSION: 1. Atelectasis, right lung. 2. Postnasal drip/allergic rhinitis. 3. Status post laparotomy and lysis of adhesions. 4. Chronic pain. 5. Ulcerative colitis. DISCUSSION: Respiratory status is stable Continue present care Zenon Montoya Omar Syed MD May 15, 2020 14:07
--- NOTE | 2020-05-15 14:41 | Infectious Diseases Prog Note ---
Assessment/Plan Assessment/Plan ASSESSMENT AND PLAN: 1. ? sepsis, leukocytosis, fevers, thrombocytopenia, ? cholecystitis, ? aspiration pna/hcap vs atelectasis (favor atelectasis) klebsiella and enterococcus abscess - s/p debridement sbo, malfunctioning Kock ileostomy - s/p surgery ileus, ? bowel obstruction fungemia risk - s/p vancomycin, ciprofloxacin, flagyl and micafungin - f/u urine/blood cultures negative - improving clinically, thrombocytopenia improved - monitor labs - d/w Dr. Meadows 2. The patient has a history of Kock pouch continent ileostomy. 3. History of ulcerative colitis. 4. History of multiple abdominal surgeries. 5. History of spine surgery. 6. History of parathyroid adenoma. 7. History of proctocolectomy. 8. History of laparotomy. 9. Anemia. 10. Thrombocytopenia. 11. Allergies to adhesive tape. 12. Social history is negative. 13. Family history is noncontributory. 14. MAR is noted. 15. Case was discussed with RN. 16. Continue treatment per Dr. Meadows and consultants. 17. I will follow. Subjective Constitutional: Denies: fever HEENT: Denies: congestion Respiratory: Denies: shortness of breath Cardiovascular: Denies: chest pain Gastrointestinal/Abdominal: Reports: other - some abdominal discomfort ; Denies : nausea, vomiting Genitourinary: Denies: dysuria, hematuria Neurologic: Denies: headache Psychiatric: Denies: depression Skin: Denies: rash Hematologic: Denies: bleeding Musculoskeletal: Denies: pain Allergies: Coded Allergies: ADHESIVE TAPE (Verified Adverse Reaction, Intermediate, Rash, 08/27/19) CLEAR TAPE Objective Last 24 Hour Vital Signs Date Time Temp Pulse Resp B/P (MAP) Pulse Ox O2 Delivery O2 Flow Rate FiO2 05/15/20 09:00 Room Air 05/15/20 08:26 98.0 05/15/20 08:00 98.0 98 18 124/73 (90) 96 05/15/20 04:00 98.6 101 18 122/79 (93) 97 05/15/20 00:00 98.8 105 19 129/79 (96) 95 05/14/20 21:00 Room Air 05/14/20 20:00 98.8 110 19 123/75 (91) 95 05/14/20 16:00 98.3 107 17 106/62 (77) 94 Height (Feet): 5 Height (Inches): 3.00 Weight (Pounds): 139 General Appearance: no acute distress HEENT: normocephalic, atraumatic, anicteric, mucous membranes moist Respiratory/Chest: lungs clear, normal breath sounds, no respiratory distress, no accessory muscle use Cardiovascular: normal rate, regular rhythm, no gallop/murmur, no JVD Abdomen: normal bowel sounds, soft, non tender, no organomegaly, non distended Genitourinary: other - no decker, no cva pain Extremities: no cyanosis Skin: no rash 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 There is some persistent right perihilar atelectasis. The heart size is normal. Impression: Improved bilateral suprahilar interstitial infiltrates, over 2 days Abdominal US: Impression: Distended gallbladder with borderline wall thickening, but no gallstones. Significance uncertain. Mildly dilated common bile duct. May be age-related, downstream obstruction not completely excludable particularly in view of findings reported on recent CT scan. Correlate with liver function tests, consider MRCP for further evaluation if clinically indicated CT abdomen and pelvis - 04/27/20 - Impression: Dilated proximal small bowel loops, with another short segment of dilated mid small bowel, nondilated distal small bowel loops. Findings are concerning for small bowel obstruction. Given somewhat prominent mucosal enhancement, findings could also be due to enteritis. Trace ascites, possibly related to the above Postsurgical changes, as described. Note that the Decker catheter is deep within the reservoir but the reservoir is somewhat distended with material. Ectatic extrahepatic bile ducts. Suspect age-related is this is unchanged from the prior study. Correlate with liver function tests Nonspecific prominent retroperitoneal lymph nodes Findings discussed by phone with Dr. Meadows at the time of interpretation KUB - 05/08/20 - FINDINGS/IMPRESSION: Multiple, mildly prominent loops of colon which may correlate with postoperative ileus. No large volume free intraperitoneal air. Extensive suture line within the pelvis and right lower quadrant, correlate with surgical history. Midline cutaneous skin lu. The lung bases are clear. Degenerative changes of the spine. Microbiology Date/Time Source Procedure Growth Status 05/07/20 22:30 Blood Blood Culture - Final NO GROWTH AFTER 5 DAYS Complete 04/27/20 11:13 Nasopharynx SARS-CoV-2 RdRp Gene Assay - Final Complete 05/14/20 14:55 Urine,Clean Catch Urine Culture - Preliminary NO GROWTH Resulted 04/29/20 14:48 Abdomen Gram Stain - Final Complete 04/29/20 14:48 Aerobic Culture - Final Klebsiella Pneumoniae Enterococcus Faecalis Complete 04/29/20 14:48 Abdomen Anaerobic Culture - Final NO ANAEROBES ISOLATED Complete Microbiology Date/Time Source Procedure Growth Status 05/14/20 14:55 Urine,Clean Catch Urine Culture - Preliminary NO GROWTH Resulted Laboratory Tests Test 05/14/20 14:55 05/14/20 17:28 05/14/20 23:25 05/15/20 05:25 Urine Color Pale yellow Urine Appearance Cloudy Urine pH 5 (4.5-8.0) Urine Specific [place] 1.020 (1.005-1.035) Urine Protein 1+ (NEGATIVE) H Urine Glucose (UA) Negative (NEGATIVE) Urine Ketones Negative (NEGATIVE) Urine Blood 3+ (NEGATIVE) H Urine Nitrite Negative (NEGATIVE) Urine Bilirubin Negative (NEGATIVE) Urine Urobilinogen Normal MG/DL (0.0-1.0) Urine Leukocyte Esterase 1+ (NEGATIVE) H Urine RBC 5-10 /HPF (0 - 2) H Urine WBC 0-2 /HPF (0 - 2) Urine Squamous Epithelial Cells Moderate /LPF (NONE/OCC) H Urine Bacteria Many /HPF (NONE) H POC Whole Blood Glucose 114 MG/DL (74-106) H 120 MG/DL (74-106) H White Blood Count 7.9 K/UL (4.8-10.8) Red Blood Count 3.43 M/UL (4.20-5.40) L Hemoglobin 11.0 G/DL (12.0-16.0) L Hematocrit 34.1 % (37.0-47.0) L Mean Corpuscular Volume 99 FL (80-99) Mean Corpuscular Hemoglobin 32.0 PG (27.0-31.0) H Mean Corpuscular Hemoglobin Concent 32.2 G/DL (32.0-36.0) Red Cell Distribution Width 13.5 % (11.6-14.8) Platelet Count 186 K/UL (150-450) Mean Platelet Volume 10.4 FL (6.5-10.1) H Neutrophils (%) (Auto) 70.7 % (45.0-75.0) Lymphocytes (%) (Auto) 14.6 % (20.0-45.0) L Monocytes (%) (Auto) 12.6 % (1.0-10.0) H Eosinophils (%) (Auto) 0.0 % (0.0-3.0) Basophils (%) (Auto) 2.2 % (0.0-2.0) H Sodium Level 139 MMOL/L (136-145) Potassium Level 5.2 MMOL/L (3.5-5.1) H Chloride Level 105 MMOL/L (98-107) Carbon Dioxide Level 28 MMOL/L (21-32) Anion Gap 6 mmol/L (5-15) Blood Urea Nitrogen 20 mg/dL (7-18) H Creatinine 1.0 MG/DL (0.55-1.30) Estimat Glomerular Filtration Rate 55.0 mL/min (>60) Glucose Level 120 MG/DL (74-106) H Calcium Level 9.0 MG/DL (8.5-10.1) Phosphorus Level 3.9 MG/DL (2.5-4.9) Magnesium Level 2.1 MG/DL (1.8-2.4) Total Bilirubin 0.4 MG/DL (0.2-1.0) Aspartate Amino Transf (AST/SGOT) 18 U/L (15-37) Alanine Aminotransferase (ALT/SGPT) 18 U/L (12-78) Alkaline Phosphatase 163 U/L (46-116) H Total Protein 7.3 G/DL (6.4-8.2) Albumin 2.3 G/DL (3.4-5.0) L Globulin 5.0 g/dL Albumin/Globulin Ratio 0.5 (1.0-2.7) L Test 05/15/20 05:38 05/15/20 12:04 POC Whole Blood Glucose 122 MG/DL (74-106) H 117 MG/DL (74-106) H Current Medications Medications (Trade) Dose Ordered Sig/Jori Route PRN Reason Start Time Stop Time Status Last Admin Dose Admin Acetaminophen (Tylenol) 1,000 mg Q4H PRN GT temp>100.2 or headache 04/29/20 15:45 05/29/20 15:44 05/10/20 20:46 Acetaminophen/ Hydrocodone Bitart ([place] 5/325) 1 tab Q4H PRN ORAL pain 05/11/20 08:45 05/18/20 08:44 05/15/20 07:56 Alprazolam (Xanax) 0.5 mg Q6H PRN ORAL For Anxiety 05/15/20 11:15 05/22/20 11:14 Bupropion HCl (Wellbutrin SR) 200 mg TWICE A DAY ORAL 04/26/20 21:00 05/26/20 20:59 05/15/20 09:09 Chlorhexidine Gluconate (Kathryn-Hex 2%) 1 applic DAILY@2000 TOPIC 04/27/20 20:00 07/26/20 19:59 05/14/20 21:03 Citalopram Hydrobromide (CeleXA) 20 mg DAILY ORAL 04/26/20 21:00 05/27/20 08:59 05/15/20 09:09 Dextrose 1,000 ml @ 0 mls/hr Q24H PRN IV PN interrupted or unavailable 04/28/20 08:30 05/28/20 08:29 Dextrose (Dextrose 50%) 25 ml Q30M PRN IV Hypoglycemia 04/28/20 08:30 07/27/20 08:29 Dextrose (Dextrose 50%) 50 ml Q30M PRN IV Hypoglycemia 04/28/20 08:30 07/27/20 08:29 Dextrose/ Electrolytes 1,000 ml @ 10 mls/hr Q24H IV 05/09/20 10:00 05/28/20 09:59 05/14/20 17:29 Diatrizoate Meglum/ Diatrizoate Sod (Gastrografin) 30 ml NOW PRN ORAL Radiology Procedure 05/15/20 11:00 05/18/20 10:54 Fat Emulsion Intravenous 216 ml/Amino Acids/ Electrolytes/ Dextrose 1,896 ml @ 79 mls/hr Q24H IV 05/09/20 21:00 06/08/20 20:59 05/14/20 21:01 Folic Acid (Folate) 1 mg DAILY ORAL 04/27/20 10:30 05/27/20 10:29 05/15/20 09:10 Insulin Aspart (NovoLOG) Q6HR SUBQ 04/29/20 00:00 07/28/20 00:00 05/14/20 12:29 Ketorolac Tromethamine (Toradol 30mg) 15 mg Q6H PRN IV Severe Breakthru Pain (>7) 05/15/20 11:15 05/20/20 11:14 05/15/20 14:07 Metoclopramide HCl (Reglan) 10 mg DAILYPRN PRN IVP Nausea & Vomiting 05/14/20 10:45 06/13/20 10:44 Miconazole Nitrate (Monistat) 1 applic BEDTIME VAGIN 05/11/20 21:00 08/09/20 20:59 05/14/20 21:02 Ondansetron HCl (Zofran) 4 mg Q4H PRN IVP Nausea & Vomiting 04/29/20 15:45 05/29/20 15:44 05/15/20 11:56 Patient Own Medication (Patient's Own Med) 1 ea QHS ORAL 05/13/20 21:00 06/12/20 20:59 05/14/20 21:02 Trazodone HCl (Desyrel) 300 mg BEDTIME PRN ORAL Insomnia 05/12/20 15:00 05/27/20 20:59 Osmin Bermudez MD May 15, 2020 14:41
[2020-05-15] MEDS: Metoclopramide 10mg/2ml Inj IVP PRN (15:04)
[2020-05-15] MEDS: ALPRAZolam 0.5mg tab ORAL PRN (17:33)
--- NOTE | 2020-05-15 19:08 | Diagnostic Imaging Report ---
EXAM: [place] Upper Gastrointestinal Tract With Small Bowel Follow Through CLINICAL HISTORY: ABD PAIN TECHNIQUE: Fluoroscopy of the upper gastrointestinal tract with oral contrast and with or without KUB followed by serial images of the small bowel. Fluoroscopic guidance was provided by a physician. Total is 11.9 mGy COMPARISON: Abdomen and pelvis CT 05/05/2020 FINDINGS: Esophagus: Unremarkable. No stricture or mass. No reflux. Stomach: Unremarkable. No mass. Normal mucosa. Duodenum: Unremarkable. No mass. Normal mucosa. Small bowel: Unremarkable. No mass or abnormal filling defect. Colon: Upper GI series performed by an on-site radiologist, evaluation of still images is extremely limited as upper GI series are real-time examinations. Limited still images from upper GI series demonstrate no acute abnormality. Small bowel follow-through images, contiguous with upper GI series demonstrate distal progression of contrast into the proximal colon by 2 hours time. Contrast progresses through dilated small bowel loops most pronounced in the left abdomen measuring up to 6.8 cm. Soft tissues: Import Dispatcher radiograph demonstrates laparotomy staple line. Extensive operative bowel findings in the pelvis and right abdomen. Nonobstructive bowel gas pattern. Other findings: If there is additional concern, recommend cross- sectional imaging with IV contrast. IMPRESSION: 1. Recommend radiologist performing upper GI series addend this report with discussion of upper GI series. 2. Upper GI series performed by an on-site radiologist; evaluation of still images is extremely limited as upper GI series are real-time examinations. 3. Limited still images from upper GI series demonstrate no acute abnormality. 4. Import Dispatcher radiograph demonstrates laparotomy staple line. Extensive operative bowel findings in the pelvis and right abdomen. Nonobstructive bowel gas pattern. 5. No complete bowel obstruction seen. 6. Prominently dilated left abdominal small bowel loops without delayed contrast progression into the proximal colon. 7. If there is additional concern, recommend cross-sectional imaging with IV contrast. <MYCVCSECTION> Communications: 05/15/20 18:38 Call From Hospital Call Tika Villela on 05/15 18:38 (-07:00)
[2020-05-15 20:00] VITALS: BP 125/72
[2020-05-15] MEDS: Fat Emulsion Iv 20% 216 ML in Tpn 1,680 ML IV SCH (20:41)
[2020-05-15] MEDS: Dyna-Hex 2% Top Sol 2oz TOPIC SCH (20:41)
[2020-05-15] MEDS: Miconazole Vag Cr 45gm Tube (100mg per applicator) VAGIN SCH (20:42)
[2020-05-15] MEDS: MYRBETRIQ 50 MG ORAL SCH (20:42)
[2020-05-16] VITALS: BP 119/74
[2020-05-16] MEDS: ALPRAZolam 0.5mg tab ORAL PRN ×2 (02:28→10:39)
[2020-05-16 04:00] VITALS: BP 117/87
[2020-05-16] MEDS: NovoLOG Insulin Flexpen SUBQ SCH ×4 (05:37→23:35)
[2020-05-16 05:50] LABS: BASOPHILS % (AUTO) 2.5 % (0.0-2.0); EOSINOPHILS % (AUTO) 0.1 % (0.0-3.0); HEMATOCRIT 32.3 % (37.0-47.0); HEMOGLOBIN 10.6 G/DL (12.0-16.0); LYMPHOCYTES % (AUTO) 19.2 % (20.0-45.0); MEAN CORPUSCULAR VOLUME 99 FL (80-99); MONOCYTES % (AUTO) 10.3 % (1.0-10.0); NEUTROPHILS % (AUTO) 67.9 % (45.0-75.0); PLATELET COUNT 246 K/UL (150-450); RED BLOOD COUNT 3.26 M/UL (4.20-5.40); WHITE BLOOD COUNT 6.5 K/UL (4.8-10.8)
[2020-05-16 06:16] LABS: ALANINE AMINOTRANSFERASE 13 U/L (12-78); ALBUMIN 2.5 G/DL (3.4-5.0); ALBUMIN/GLOBULIN RATIO 0.5 (1.0-2.7); ALKALINE PHOSPHATASE 172 U/L (46-116); ANION GAP 7 mmol/L (5-15); ASPARTATE AMINO TRANSFERASE 16 U/L (15-37); BILIRUBIN,TOTAL 0.4 MG/DL (0.2-1.0); BLOOD UREA NITROGEN 25 mg/dL (7-18); CALCIUM 8.5 MG/DL (8.5-10.1); CARBON DIOXIDE 27 MMOL/L (21-32); CHLORIDE 104 MMOL/L (98-107); CREATININE 0.9 MG/DL (0.55-1.30); POTASSIUM 4.3 MMOL/L (3.5-5.1); SODIUM 138 MMOL/L (136-145)
[2020-05-16] MEDS: Ketorolac 30mg Inj IV PRN ×3 (07:14→22:49)
[2020-05-16 08:00] VITALS: BP 121/68
[2020-05-16] MEDS: D5 1/2NS w/KCl 20mEq 1,000 ML IV SCH (08:50)
[2020-05-16] MEDS: BuPROPion SR 100mg tab ORAL SCH ×2 (08:50→17:40)
[2020-05-16] MEDS: Citalopram Hydrobromide 10mg Tab ORAL SCH (08:50)
--- NOTE | 2020-05-16 10:12 | General Progress Note ---
Progress Note Progress Note AVSS Tachycardia decreased. Gastrograffin UGI with SBS reviewed with Dr. Weaver - no obstruction, contrast fills pouch within one hour, mildly dilated small bowel Abdomen soft Urine 1750 Kock pouch ileo 1660 (po contrast) Platelets up 246,000 BUN up 25 Cr down 0.9 albumin up 2.5 Imp: Small bowel obstruction, s/p DB resection; resolved Plan; BCIR diet Maintain continuous drainage of Kock pouch continue TPN until eating Lalo Meadows MD May 16, 2020 10:12
[2020-05-16] MEDS: HYDROcodone/Acetamin 5/325 tab ORAL PRN (10:36)
[2020-05-16 12:00] VITALS: BP 124/70
--- NOTE | 2020-05-16 13:34 | Pulmonology Progress Note ---
Subjective Interval Events: None new Constitutional: Denies: fever HEENT: Repors: no symptoms Respiratory: Reports: no symptoms Cardiovascular: Reports: no symptoms Gastrointestinal/Abdominal: Reports: other - some abdominal discomfort ; Denies : nausea, vomiting Psychiatric: Denies: depression Skin: Denies: rash Musculoskeletal: Denies: pain Allergies: Coded Allergies: ADHESIVE TAPE (Verified Adverse Reaction, Intermediate, Rash, 08/27/19) CLEAR TAPE Objective Last 24 Hour Vital Signs Date Time Temp Pulse Resp B/P (MAP) Pulse Ox O2 Delivery O2 Flow Rate FiO2 05/16/20 12:00 98.4 104 18 124/70 (88) 98 05/16/20 11:06 98.4 05/16/20 09:00 Room Air 05/16/20 08:00 98.4 101 20 121/68 (85) 97 05/16/20 07:44 98.8 05/16/20 04:00 98.8 104 19 117/87 (97) 97 05/16/20 00:00 98.6 107 20 119/74 (89) 97 05/15/20 21:00 Room Air 05/15/20 20:00 98.7 106 19 125/72 (89) 96 Intake and Output 05/15/20 05/16/20 19:00 07:00 Intake Total 679 ml 1449 ml Output Total 2090 ml 1320 ml Balance -1411 ml 129 ml Intake Oral 600 ml 460 ml IV Total 79 ml 989 ml Output Urine Total 900 ml 850 ml Other 1190 ml 470 ml # Voids 5 4 General Appearance: no acute distress HEENT: normocephalic Respiratory: chest wall non-tender, lungs clear Cardiovascular: normal peripheral pulses Abdomen: normal bowel sounds Microbiology Date/Time Source Procedure Growth Status 05/14/20 11:35 Blood Blood Culture - Preliminary NO GROWTH AFTER 24 HOURS Resulted 05/14/20 11:20 Blood Blood Culture - Preliminary NO GROWTH AFTER 24 HOURS Resulted 05/14/20 14:55 Urine,Clean Catch Urine Culture - Preliminary NO GROWTH AFTER 24 HOURS Resulted Laboratory Tests 05/15/20 18:17: POC Whole Blood Glucose [Pending] 05/15/20 23:25: POC Whole Blood Glucose 78 05/16/20 05:15: White Blood Count 6.5, Red Blood Count 3.26L, Hemoglobin 10.6L, Hematocrit 32.3L , Mean Corpuscular Volume 99, Mean Corpuscular Hemoglobin 32.4H, Mean Corpuscular Hemoglobin Concent 32.7, Red Cell Distribution Width 14.0, Platelet Count 246, Mean Platelet Volume 9.3, Neutrophils (%) (Auto) 67.9, Lymphocytes (% ) (Auto) 19.2L, Monocytes (%) (Auto) 10.3H, Eosinophils (%) (Auto) 0.1, Basophils (%) (Auto) 2.5H, Sodium Level 138, Potassium Level 4.3, Chloride Level 104, Carbon Dioxide Level 27, Anion Gap 7, Blood Urea Nitrogen 25H, Creatinine 0.9, Estimat Glomerular Filtration Rate > 60, Glucose Level 111H, Calcium Level 8.5, Total Bilirubin 0.4, Aspartate Amino Transf (AST/SGOT) 16, Alanine Aminotransferase (ALT/SGPT) 13, Alkaline Phosphatase 172H, Total Protein 7.4, Albumin 2.5L, Globulin 4.9, Albumin/Globulin Ratio 0.5L 05/16/20 05:37: POC Whole Blood Glucose 117H 05/16/20 11:34: POC Whole Blood Glucose 121H Current Medications Medications (Trade) Dose Ordered Sig/[place] Route PRN Reason Start Time Stop Time Status Last Admin Dose Admin Acetaminophen (Tylenol) 1,000 mg Q4H PRN GT temp>100.2 or headache 04/29/20 15:45 05/29/20 15:44 05/10/20 20:46 Acetaminophen/ Hydrocodone Bitart ([place] 5/325) 1 tab Q4H PRN ORAL pain 05/11/20 08:45 05/18/20 08:44 05/16/20 10:36 Alprazolam (Xanax) 0.5 mg Q6H PRN ORAL For Anxiety 05/15/20 11:15 05/22/20 11:14 05/16/20 10:39 Ascorbic Acid (Vitamin C) 500 mg NEEDED PRN ORAL Constipation 05/16/20 10:15 06/15/20 10:14 Bupropion HCl (Wellbutrin SR) 200 mg TWICE A DAY ORAL 04/26/20 21:00 05/26/20 20:59 05/16/20 08:50 Chlorhexidine Gluconate (Kathryn-Hex 2%) 1 applic DAILY@1999 TOPIC 04/27/20 20:00 07/26/20 19:59 05/15/20 20:41 Citalopram Hydrobromide (CeleXA) 20 mg DAILY ORAL 04/26/20 21:00 05/27/20 08:59 05/16/20 08:50 Dextrose 1,000 ml @ 0 mls/hr Q24H PRN IV PN interrupted or unavailable 04/28/20 08:30 05/28/20 08:29 Dextrose (Dextrose 50%) 25 ml Q30M PRN IV Hypoglycemia 04/28/20 08:30 07/27/20 08:29 Dextrose (Dextrose 50%) 50 ml Q30M PRN IV Hypoglycemia 04/28/20 08:30 07/27/20 08:29 Dextrose/ Electrolytes 1,000 ml @ 10 mls/hr Q24H IV 05/09/20 10:00 05/28/20 09:59 05/16/20 08:50 Diatrizoate Meglum/ Diatrizoate Sod (Gastrografin) 30 ml NOW PRN ORAL Radiology Procedure 05/15/20 11:00 05/18/20 10:54 Fat Emulsion Intravenous 216 ml/Amino Acids/ Electrolytes/ Dextrose 1,896 ml @ 79 mls/hr Q24H IV 05/09/20 21:00 06/08/20 20:59 05/15/20 20:41 Folic Acid (Folate) 1 mg DAILY ORAL 04/27/20 10:30 05/27/20 10:29 05/16/20 08:50 Insulin Aspart (NovoLOG) Q6HR SUBQ 04/29/20 00:00 07/28/20 00:00 05/14/20 12:29 Ketorolac Tromethamine (Toradol 30mg) 15 mg Q6H PRN IV Severe Breakthru Pain (>7) 05/15/20 11:15 05/20/20 11:14 05/16/20 07:14 Metoclopramide HCl (Reglan) 10 mg DAILYPRN PRN IVP Nausea & Vomiting 05/14/20 10:45 06/13/20 10:44 05/15/20 15:04 Miconazole Nitrate (Monistat) 1 applic BEDTIME VAGIN 05/11/20 21:00 08/09/20 20:59 05/15/20 20:42 Ondansetron HCl (Zofran) 4 mg Q4H PRN IVP Nausea & Vomiting 04/29/20 15:45 05/29/20 15:44 05/15/20 17:43 Patient Own Medication (Patient's Own Med) 1 ea QHS ORAL 05/13/20 21:00 06/12/20 20:59 05/15/20 20:42 Trazodone HCl (Desyrel) 300 mg BEDTIME PRN ORAL Insomnia 05/12/20 15:00 05/27/20 20:59 Assessment/Plan Assessment/Plan IMPRESSION: 1. Atelectasis, right lung. 2. Postnasal drip/allergic rhinitis. 3. Status post laparotomy and lysis of adhesions. 4. Chronic pain. 5. Ulcerative colitis. DISCUSSION: Respiratory status is stable Continue present care No fever last 24 hours Zenon Montoya Omar Syed MD May 16, 2020 13:34
[2020-05-16] MEDS ORDERED: NS Irrig 1000ml ONE ×3 (13:47→15:37)
[2020-05-16 16:00] VITALS: BP 120/72
[2020-05-16 20:00] VITALS: BP 122/75
[2020-05-16] MEDS: MYRBETRIQ 50 MG ORAL SCH (20:47)
[2020-05-16] MEDS: Fat Emulsion Iv 20% 216 ML in Tpn 1,680 ML IV SCH (20:47)
[2020-05-16] MEDS: Dyna-Hex 2% Top Sol 2oz TOPIC SCH (20:47)
[2020-05-16] MEDS: Miconazole Vag Cr 45gm Tube (100mg per applicator) VAGIN SCH (20:48)
[2020-05-17] VITALS (7 sets, daily range): BP systolic 111–127; BP diastolic 70–76
[2020-05-17] MEDS: HYDROcodone/Acetamin 5/325 tab ORAL PRN ×5 (01:26→21:19)
[2020-05-17] MEDS: ALPRAZolam 0.5mg tab ORAL PRN ×3 (01:31→23:47)
[2020-05-17] MEDS: Metoclopramide 10mg/2ml Inj IVP PRN (04:31)
[2020-05-17] MEDS: NovoLOG Insulin Flexpen SUBQ SCH ×3 (05:15→17:27)
[2020-05-17 06:37] LABS: BASOPHILS % (AUTO) 1.3 % (0.0-2.0); EOSINOPHILS % (AUTO) 0.2 % (0.0-3.0); HEMATOCRIT 31.7 % (37.0-47.0); HEMOGLOBIN 10.3 G/DL (12.0-16.0); LYMPHOCYTES % (AUTO) 19.2 % (20.0-45.0); MEAN CORPUSCULAR VOLUME 99 FL (80-99); MONOCYTES % (AUTO) 9.6 % (1.0-10.0); NEUTROPHILS % (AUTO) 69.8 % (45.0-75.0); PLATELET COUNT 293 K/UL (150-450); RED BLOOD COUNT 3.19 M/UL (4.20-5.40); RED CELL DISTRIBUTION WIDTH 13.6 % (11.6-14.8); WHITE BLOOD COUNT 7.2 K/UL (4.8-10.8)
[2020-05-17 06:48] LABS: ALANINE AMINOTRANSFERASE 16 U/L (12-78); ALBUMIN 2.6 G/DL (3.4-5.0); ALBUMIN/GLOBULIN RATIO 0.6 (1.0-2.7); ALKALINE PHOSPHATASE 167 U/L (46-116); ANION GAP 6 mmol/L (5-15); ASPARTATE AMINO TRANSFERASE 21 U/L (15-37); BILIRUBIN,TOTAL 0.3 MG/DL (0.2-1.0); BLOOD UREA NITROGEN 28 mg/dL (7-18); CALCIUM 9.1 MG/DL (8.5-10.1); CARBON DIOXIDE 28 MMOL/L (21-32); CHLORIDE 105 MMOL/L (98-107); CREATININE 0.9 MG/DL (0.55-1.30); POTASSIUM 4.4 MMOL/L (3.5-5.1); SODIUM 139 MMOL/L (136-145)
[2020-05-17] MEDS ORDERED: NS Irrig 1000ml ONE (08:22)
--- NOTE | 2020-05-17 08:28 | Pulmonology Progress Note ---
Subjective Interval Events: None new Constitutional: Denies: fever HEENT: Repors: no symptoms Respiratory: Reports: no symptoms Cardiovascular: Reports: no symptoms Gastrointestinal/Abdominal: Reports: other - some abdominal discomfort ; Denies : nausea, vomiting Psychiatric: Denies: depression Skin: Denies: rash Musculoskeletal: Denies: pain Allergies: Coded Allergies: ADHESIVE TAPE (Verified Adverse Reaction, Intermediate, Rash, 08/27/19) CLEAR TAPE Objective Last 24 Hour Vital Signs Date Time Temp Pulse Resp B/P (MAP) Pulse Ox O2 Delivery O2 Flow Rate FiO2 05/17/20 06:00 98.8 05/17/20 04:00 98.8 99 20 117/70 (86) 96 05/17/20 00:00 98.8 94 20 111/72 (85) 97 05/16/20 23:19 98.7 05/16/20 21:00 Room Air 05/16/20 20:00 98.7 102 20 122/75 (91) 97 05/16/20 16:00 98.5 98 18 120/72 (88) 97 05/16/20 12:00 98.4 104 18 124/70 (88) 98 05/16/20 09:00 Room Air Intake and Output 05/16/20 05/17/20 19:00 07:00 Intake Total 850 ml 730 ml Output Total 1370 ml 1045 ml Balance -520 ml -315 ml Intake Oral 850 ml 730 ml Output Urine Total 1100 ml 750 ml Other 270 ml 295 ml # Voids 4 4 General Appearance: no acute distress HEENT: normocephalic Respiratory: chest wall non-tender, lungs clear Cardiovascular: normal peripheral pulses Abdomen: normal bowel sounds Microbiology Date/Time Source Procedure Growth Status 05/14/20 11:35 Blood Blood Culture - Preliminary NO GROWTH AFTER 48 HOURS Resulted 05/14/20 11:20 Blood Blood Culture - Preliminary NO GROWTH AFTER 48 HOURS Resulted 05/14/20 14:55 Urine,Clean Catch Urine Culture - Final NO GROWTH AFTER 48 HOURS Complete Laboratory Tests 05/16/20 11:34: POC Whole Blood Glucose 121H 05/16/20 17:49: POC Whole Blood Glucose 118H 05/16/20 23:27: POC Whole Blood Glucose 100 05/17/20 05:12: POC Whole Blood Glucose 111H 05/17/20 05:15: White Blood Count 7.2, Red Blood Count 3.19L, Hemoglobin 10.3L, Hematocrit 31.7L , Mean Corpuscular Volume 99, Mean Corpuscular Hemoglobin 32.2H, Mean Corpuscular Hemoglobin Concent 32.5, Red Cell Distribution Width 13.6, Platelet Count 293, Mean Platelet Volume 8.1, Neutrophils (%) (Auto) 69.8, Lymphocytes (% ) (Auto) 19.2L, Monocytes (%) (Auto) 9.6, Eosinophils (%) (Auto) 0.2, Basophils (%) (Auto) 1.3, Sodium Level 139, Potassium Level 4.4, Chloride Level 105, Carbon Dioxide Level 28, Anion Gap 6, Blood Urea Nitrogen 28H, Creatinine 0.9, Estimat Glomerular Filtration Rate > 60, Glucose Level 104, Calcium Level 9.1, Total Bilirubin 0.3, Aspartate Amino Transf (AST/SGOT) 21, Alanine Aminotransferase (ALT/SGPT) 16, Alkaline Phosphatase 167H, Total Protein 7.3, Albumin 2.6L, Globulin 4.7, Albumin/Globulin Ratio 0.6L Current Medications Medications (Trade) Dose Ordered Sig/Jori Route PRN Reason Start Time Stop Time Status Last Admin Dose Admin Acetaminophen (Tylenol) 1,000 mg Q4H PRN GT temp>100.2 or headache 04/29/20 15:45 05/29/20 15:44 05/10/20 20:46 Acetaminophen/ Hydrocodone Bitart ([place] 5/325) 1 tab Q4H PRN ORAL pain 05/11/20 08:45 05/18/20 08:44 05/17/20 05:30 Alprazolam (Xanax) 0.5 mg Q6H PRN ORAL For Anxiety 05/15/20 11:15 05/22/20 11:14 05/17/20 01:31 Ascorbic Acid (Vitamin C) 500 mg NEEDED PRN ORAL Constipation 05/16/20 10:15 06/15/20 10:14 Bupropion HCl (Wellbutrin SR) 200 mg TWICE A DAY ORAL 04/26/20 21:00 05/26/20 20:59 05/16/20 17:40 Chlorhexidine Gluconate ([place]athryn-Hex 2%) 1 applic DAILY@1999 TOPIC 04/27/20 20:00 07/26/20 19:59 05/16/20 20:47 Citalopram Hydrobromide (CeleXA) 20 mg DAILY ORAL 04/26/20 21:00 05/27/20 08:59 05/16/20 08:50 Dextrose 1,000 ml @ 0 mls/hr Q24H PRN IV PN interrupted or unavailable 04/28/20 08:30 05/28/20 08:29 Dextrose (Dextrose 50%) 25 ml Q30M PRN IV Hypoglycemia 04/28/20 08:30 07/27/20 08:29 Dextrose (Dextrose 50%) 50 ml Q30M PRN IV Hypoglycemia 04/28/20 08:30 07/27/20 08:29 Dextrose/ Electrolytes 1,000 ml @ 10 mls/hr Q24H IV 05/09/20 10:00 05/28/20 09:59 05/16/20 08:50 Diatrizoate Meglum/ Diatrizoate Sod (Gastrografin) 30 ml NOW PRN ORAL Radiology Procedure 05/15/20 11:00 05/18/20 10:54 Fat Emulsion Intravenous 216 ml/Amino Acids/ Electrolytes/ Dextrose 1,896 ml @ 79 mls/hr Q24H IV 05/09/20 21:00 06/08/20 20:59 05/16/20 20:47 Folic Acid (Folate) 1 mg DAILY ORAL 04/27/20 10:30 05/27/20 10:29 05/16/20 08:50 Insulin Aspart (NovoLOG) Q6HR SUBQ 04/29/20 00:00 07/28/20 00:00 05/14/20 12:29 Ketorolac Tromethamine (Toradol 30mg) 15 mg Q6H PRN IV Severe Breakthru Pain (>7) 05/15/20 11:15 05/20/20 11:14 05/16/20 22:49 Metoclopramide HCl (Reglan) 10 mg DAILYPRN PRN IVP Nausea & Vomiting 05/14/20 10:45 06/13/20 10:44 05/17/20 04:31 Miconazole Nitrate (Monistat) 1 applic BEDTIME VAGIN 05/11/20 21:00 08/09/20 20:59 05/16/20 20:48 Ondansetron HCl (Zofran) 4 mg Q4H PRN IVP Nausea & Vomiting 04/29/20 15:45 05/29/20 15:44 05/16/20 17:42 Patient Own Medication (Patient's Own Med) 1 ea QHS ORAL 05/13/20 21:00 06/12/20 20:59 05/16/20 20:47 Trazodone HCl (Desyrel) 300 mg BEDTIME PRN ORAL Insomnia 05/12/20 15:00 05/27/20 20:59 Assessment/Plan Assessment/Plan IMPRESSION: 1. Atelectasis, right lung. 2. Postnasal drip/allergic rhinitis. 3. Status post laparotomy and lysis of adhesions. 4. Chronic pain. 5. Ulcerative colitis. DISCUSSION: Respiratory status is stable Continue present care No fever last 24 hours Zenon Montoya Omar Syed MD May 17, 2020 08:28
[2020-05-17] MEDS: BuPROPion SR 100mg tab ORAL SCH ×2 (08:34→17:24)
[2020-05-17] MEDS: Citalopram Hydrobromide 10mg Tab ORAL SCH (08:34)
--- NOTE | 2020-05-17 08:40 | Hematology/Onc Progress Note ---
Assessment/Plan Assessment/Plan ASSESSMENT AND PLAN: # SEVERE Thrombocytopenia that is severe, on admission, plt was wnl and now dropped to 8K The patient comes in with high-grade bowel obstruction and malfunction Kock pouch continent ileostomy. The patient is status post surgery including release of the bowel obstruction. The patient was noted to have pus in small intra-abdominal abscess. It was growing out Klebsiella pneumoniae and Enterococcus. The patient has a low platele count and could be secondary to cefepime, which the patient is on. --> cefepime has been stopped, likely culprits --> as per ID antibiotics, vancomycin, Cipro, and Flagyl. --> dic panel has been ordered --> peripheral smear has been ordered as well --> hapto neg and fibrinogen 738 --> hold off steroids --> no heparin or lovenox administered recently --> duplex lower ext ordered-->neg for dvt --> transfuse 2 units plt 05/07 --> plt trend 8k-->6k->34-->73->46->60-->74-->136-->163-->293 --> HIT antbody test ordered-->neg --> cr is wnl, less likely aHUS, also no schistocytes on smear noted --> also less likely iTP but is in differential ==>> consider bone marrow biopsy if labs not better # Anemia likely due to hemoldilution --> likely hemodilutional and chronic disease --> hgb trend 9.6-->9.4-->11.2 # The patient has a history of Kock pouch continent ileostomy. # History of ulcerative colitis. # History of multiple abdominal surgeries. # History of spine surgery. # History of parathyroid adenoma. # History of proctocolectomy. # History of laparotomy. The timing of this note does not necessarily reflect the time of the patient was seen. Greatly appreciate consultation. Subjective Constitutional: Denies: no symptoms, chills, fever, malaise, weakness, other HEENT: Denies: no symptoms, eye pain, blurred vision, tearing, double vision, ear pain, ear discharge, nose pain, nose congestion, throat pain, throat swelling, mouth pain, mouth swelling, other Respiratory: Denies: no symptoms, cough, shortness of breath, SOB with excertion, SOB at rest, sputum, wheezing, other Gastrointestinal/Abdominal: Denies: no symptoms, abdomen distended, abdominal pain, black stools, tarry stools, blood in stool, constipated, diarrhea, difficulty swallowing, nausea, poor appetite, poor fluid intake, rectal bleeding , vomiting, other Genitourinary: Denies: no symptoms, burning, discharge, frequency, flank pain, hematuria, incontinence, pain, urgency, other Endocrine: Denies: no symptoms, excessive sweating, flushing, intolerance to cold, intolerance to heat, increased hunger, increased thirst, increased urine, unexplained weight gain, unexplained weight loss, other Allergies: Coded Allergies: ADHESIVE TAPE (Verified Adverse Reaction, Intermediate, Rash, 08/27/19) CLEAR TAPE Subjective 05/08 gtube connected, plts 6k, ordered for transfusion, consider ahus as well, will get hit ab test 05/10 plt is 73, no bleeding, feelingbetter, holding off transfusion 05/11 labs are noted, no bleeding, plt 46k, remains on antibiotics, may consider biopsy tomorrow if labs do not improve 05/12 plt is better, gtube is clamped, no bleeding, no bleeding 05/13 platelets have briskly improved, dw pt and will hold off marrow 05/14 awake and alert, new small pleural effusion, no sob 05/15 meds noted, no bleeding, dw rn, no night sweats, still with pain abdominal 05/17 meds reviewed, no bleeding, dw rn, no major changes, plt 293 Objective Objective Current Medications Medications (Trade) Dose Ordered Sig/Jori Route PRN Reason Start Time Stop Time Status Last Admin Dose Admin Acetaminophen (Tylenol) 1,000 mg Q4H PRN GT temp>100.2 or headache 04/29/20 15:45 05/29/20 15:44 05/10/20 20:46 Acetaminophen/ Hydrocodone Bitart ([place] 5/325) 1 tab Q4H PRN ORAL pain 05/11/20 08:45 05/18/20 08:44 05/17/20 05:30 Alprazolam (Xanax) 0.5 mg Q6H PRN ORAL For Anxiety 05/15/20 11:15 05/22/20 11:14 05/17/20 01:31 Ascorbic Acid (Vitamin C) 500 mg NEEDED PRN ORAL Constipation 05/16/20 10:15 06/15/20 10:14 Bupropion HCl (Wellbutrin SR) 200 mg TWICE A DAY ORAL 04/26/20 21:00 05/26/20 20:59 05/17/20 08:34 Chlorhexidine Gluconate (Kathryn-Hex 2%) 1 applic DAILY@2000 TOPIC 04/27/20 20:00 07/26/20 19:59 05/16/20 20:47 Citalopram Hydrobromide (CeleXA) 20 mg DAILY ORAL 04/26/20 21:00 05/27/20 08:59 05/17/20 08:34 Dextrose 1,000 ml @ 0 mls/hr Q24H PRN IV PN interrupted or unavailable 04/28/20 08:30 05/28/20 08:29 Dextrose (Dextrose 50%) 25 ml Q30M PRN IV Hypoglycemia 04/28/20 08:30 07/27/20 08:29 Dextrose (Dextrose 50%) 50 ml Q30M PRN IV Hypoglycemia 04/28/20 08:30 07/27/20 08:29 Dextrose/ Electrolytes 1,000 ml @ 10 mls/hr Q24H IV 05/09/20 10:00 05/28/20 09:59 05/16/20 08:50 Diatrizoate Meglum/ Diatrizoate Sod (Gastrografin) 30 ml NOW PRN ORAL Radiology Procedure 05/15/20 11:00 05/18/20 10:54 Fat Emulsion Intravenous 216 ml/Amino Acids/ Electrolytes/ Dextrose 1,896 ml @ 79 mls/hr Q24H IV 05/09/20 21:00 06/08/20 20:59 05/16/20 20:47 Folic Acid (Folate) 1 mg DAILY ORAL 04/27/20 10:30 05/27/20 10:29 05/17/20 08:34 Insulin Aspart (NovoLOG) Q6HR SUBQ 04/29/20 00:00 07/28/20 00:00 05/14/20 12:29 Ketorolac Tromethamine (Toradol 30mg) 15 mg Q6H PRN IV Severe Breakthru Pain (>7) 05/15/20 11:15 05/20/20 11:14 05/16/20 22:49 Metoclopramide HCl (Reglan) 10 mg DAILYPRN PRN IVP Nausea & Vomiting 05/14/20 10:45 06/13/20 10:44 05/17/20 04:31 Miconazole Nitrate (Monistat) 1 applic BEDTIME VAGIN 05/11/20 21:00 08/09/20 20:59 05/16/20 20:48 Ondansetron HCl (Zofran) 4 mg Q4H PRN IVP Nausea & Vomiting 04/29/20 15:45 05/29/20 15:44 05/17/20 08:35 Patient Own Medication (Patient's Own Med) 1 ea QHS ORAL 05/13/20 21:00 06/12/20 20:59 05/16/20 20:47 Trazodone HCl (Desyrel) 300 mg BEDTIME PRN ORAL Insomnia 05/12/20 15:00 05/27/20 20:59 Last 24 Hour Vital Signs Date Time Temp Pulse Resp B/P (MAP) Pulse Ox O2 Delivery O2 Flow Rate FiO2 05/17/20 06:00 98.8 05/17/20 04:00 98.8 99 20 117/70 (86) 96 05/17/20 00:00 98.8 94 20 111/72 (85) 97 05/16/20 23:19 98.7 05/16/20 21:00 Room Air 05/16/20 20:00 98.7 102 20 122/75 (91) 97 05/16/20 16:00 98.5 98 18 120/72 (88) 97 05/16/20 12:00 98.4 104 18 124/70 (88) 98 05/16/20 09:00 Room Air 05/16/20 08:00 98.4 101 20 121/68 (85) 97 05/16/20 04:00 98.8 104 19 117/87 (97) 97 05/16/20 00:00 98.6 107 20 119/74 (89) 97 05/15/20 21:00 Room Air 05/15/20 20:00 98.7 106 19 125/72 (89) 96 05/15/20 12:00 99.0 102 20 114/79 (91) 95 05/15/20 09:00 Room Air Intake and Output 05/16/20 05/17/20 19:00 07:00 Intake Total 850 ml 730 ml Output Total 1370 ml 1045 ml Balance -520 ml -315 ml Intake Oral 850 ml 730 ml Output Urine Total 1100 ml 750 ml Other 270 ml 295 ml # Voids 4 4 Labs Test 05/14/20 12:17 05/14/20 14:55 05/14/20 17:28 05/14/20 23:25 POC Whole Blood Glucose 142 MG/DL (74-106) 114 MG/DL (74-106) 120 MG/DL (74-106) Urine Color Pale yellow Urine Appearance Cloudy Urine pH 5 (4.5-8.0) Urine Specific [place] 1.020 (1.005-1.035) Urine Protein 1+ (NEGATIVE) Urine Glucose (UA) Negative (NEGATIVE) Urine Ketones Negative (NEGATIVE) Urine Blood 3+ (NEGATIVE) Urine Nitrite Negative (NEGATIVE) Urine Bilirubin Negative (NEGATIVE) Urine Urobilinogen Normal MG/DL (0.0-1.0) Urine Leukocyte Esterase 1+ (NEGATIVE) Urine RBC 5-10 /HPF (0 - 2) Urine WBC 0-2 /HPF (0 - 2) Urine Squamous Epithelial Cells Moderate /LPF (NONE/OCC) Urine Bacteria Many /HPF (NONE) Test 05/15/20 05:25 05/15/20 05:38 05/15/20 12:04 05/15/20 18:17 White Blood Count 7.9 K/UL (4.8-10.8) Red Blood Count 3.43 M/UL (4.20-5.40) Hemoglobin 11.0 G/DL (12.0-16.0) Hematocrit 34.1 % (37.0-47.0) Mean Corpuscular Volume 99 FL (80-99) Mean Corpuscular Hemoglobin 32.0 PG (27.0-31.0) Mean Corpuscular Hemoglobin Concent 32.2 G/DL (32.0-36.0) Red Cell Distribution Width 13.5 % (11.6-14.8) Platelet Count 186 K/UL (150-450) Mean Platelet Volume 10.4 FL (6.5-10.1) Neutrophils (%) (Auto) 70.7 % (45.0-75.0) Lymphocytes (%) (Auto) 14.6 % (20.0-45.0) Monocytes (%) (Auto) 12.6 % (1.0-10.0) Eosinophils (%) (Auto) 0.0 % (0.0-3.0) Basophils (%) (Auto) 2.2 % (0.0-2.0) Sodium Level 139 MMOL/L (136-145) Potassium Level 5.2 MMOL/L (3.5-5.1) Chloride Level 105 MMOL/L (98-107) Carbon Dioxide Level 28 MMOL/L (21-32) Anion Gap 6 mmol/L (5-15) Blood Urea Nitrogen 20 mg/dL (7-18) Creatinine 1.0 MG/DL (0.55-1.30) Estimat Glomerular Filtration Rate 55.0 mL/min (>60) Glucose Level 120 MG/DL (74-106) Calcium Level 9.0 MG/DL (8.5-10.1) Phosphorus Level 3.9 MG/DL (2.5-4.9) Magnesium Level 2.1 MG/DL (1.8-2.4) Total Bilirubin 0.4 MG/DL (0.2-1.0) Aspartate Amino Transf (AST/SGOT) 18 U/L (15-37) Alanine Aminotransferase (ALT/SGPT) 18 U/L (12-78) Alkaline Phosphatase 163 U/L (46-116) Total Protein 7.3 G/DL (6.4-8.2) Albumin 2.3 G/DL (3.4-5.0) Globulin 5.0 g/dL Albumin/Globulin Ratio 0.5 (1.0-2.7) POC Whole Blood Glucose 122 MG/DL (74-106) 117 MG/DL (74-106) Test 05/15/20 23:25 05/16/20 05:15 05/16/20 05:37 05/16/20 11:34 POC Whole Blood Glucose 78 MG/DL (74-106) 117 MG/DL (74-106) 121 MG/DL (74-106) White Blood Count 6.5 K/UL (4.8-10.8) Red Blood Count 3.26 M/UL (4.20-5.40) Hemoglobin 10.6 G/DL (12.0-16.0) Hematocrit 32.3 % (37.0-47.0) Mean Corpuscular Volume 99 FL (80-99) Mean Corpuscular Hemoglobin 32.4 PG (27.0-31.0) Mean Corpuscular Hemoglobin Concent 32.7 G/DL (32.0-36.0) Red Cell Distribution Width 14.0 % (11.6-14.8) Platelet Count 246 K/UL (150-450) Mean Platelet Volume 9.3 FL (6.5-10.1) Neutrophils (%) (Auto) 67.9 % (45.0-75.0) Lymphocytes (%) (Auto) 19.2 % (20.0-45.0) Monocytes (%) (Auto) 10.3 % (1.0-10.0) Eosinophils (%) (Auto) 0.1 % (0.0-3.0) Basophils (%) (Auto) 2.5 % (0.0-2.0) Sodium Level 138 MMOL/L (136-145) Potassium Level 4.3 MMOL/L (3.5-5.1) Chloride Level 104 MMOL/L (98-107) Carbon Dioxide Level 27 MMOL/L (21-32) Anion Gap 7 mmol/L (5-15) Blood Urea Nitrogen 25 mg/dL (7-18) Creatinine 0.9 MG/DL (0.55-1.30) Estimat Glomerular Filtration Rate > 60 mL/min (>60) Glucose Level 111 MG/DL (74-106) Calcium Level 8.5 MG/DL (8.5-10.1) Total Bilirubin 0.4 MG/DL (0.2-1.0) Aspartate Amino Transf (AST/SGOT) 16 U/L (15-37) Alanine Aminotransferase (ALT/SGPT) 13 U/L (12-78) Alkaline Phosphatase 172 U/L (46-116) Total Protein 7.4 G/DL (6.4-8.2) Albumin 2.5 G/DL (3.4-5.0) Globulin 4.9 g/dL Albumin/Globulin Ratio 0.5 (1.0-2.7) Test 05/16/20 17:49 05/16/20 23:27 05/17/20 05:12 05/17/20 05:15 POC Whole Blood Glucose 118 MG/DL (74-106) 100 MG/DL (74-106) 111 MG/DL (74-106) White Blood Count 7.2 K/UL (4.8-10.8) Red Blood Count 3.19 M/UL (4.20-5.40) Hemoglobin 10.3 G/DL (12.0-16.0) Hematocrit 31.7 % (37.0-47.0) Mean Corpuscular Volume 99 FL (80-99) Mean Corpuscular Hemoglobin 32.2 PG (27.0-31.0) Mean Corpuscular Hemoglobin Concent 32.5 G/DL (32.0-36.0) Red Cell Distribution Width 13.6 % (11.6-14.8) Platelet Count 293 K/UL (150-450) Mean Platelet Volume 8.1 FL (6.5-10.1) Neutrophils (%) (Auto) 69.8 % (45.0-75.0) Lymphocytes (%) (Auto) 19.2 % (20.0-45.0) Monocytes (%) (Auto) 9.6 % (1.0-10.0) Eosinophils (%) (Auto) 0.2 % (0.0-3.0) Basophils (%) (Auto) 1.3 % (0.0-2.0) Sodium Level 139 MMOL/L (136-145) Potassium Level 4.4 MMOL/L (3.5-5.1) Chloride Level 105 MMOL/L (98-107) Carbon Dioxide Level 28 MMOL/L (21-32) Anion Gap 6 mmol/L (5-15) Blood Urea Nitrogen 28 mg/dL (7-18) Creatinine 0.9 MG/DL (0.55-1.30) Estimat Glomerular Filtration Rate > 60 mL/min (>60) Glucose Level 104 MG/DL (74-106) Calcium Level 9.1 MG/DL (8.5-10.1) Total Bilirubin 0.3 MG/DL (0.2-1.0) Aspartate Amino Transf (AST/SGOT) 21 U/L (15-37) Alanine Aminotransferase (ALT/SGPT) 16 U/L (12-78) Alkaline Phosphatase 167 U/L (46-116) Total Protein 7.3 G/DL (6.4-8.2) Albumin 2.6 G/DL (3.4-5.0) Globulin 4.7 g/dL Albumin/Globulin Ratio 0.6 (1.0-2.7) Height (Feet): 5 Height (Inches): 3.00 Weight (Pounds): 139 Objective Physical Exam: Vitals: reviewed General: NAD HEENT: nc, at Neck: supple Chest: clear breath sounds bilaterally Cardiovascular: RRR, no s3, s4 Abdomen: soft, nontender, nd ++gtube, Kouch pouch ++ midline scar site is c/d/i Extremities: no cce, normal range of motion Neuro: alert and oriented Cecilio Grey MD May 17, 2020 08:39
--- NOTE | 2020-05-17 09:56 | General Progress Note ---
Progress Note Progress Note AVSS Ambulated in hallways with PT and walker. Anxiety better with Xanax. Occasional toradol + [place]. Eating somewhat better Abdomen soft, 1/2 lu removed, gastrostomy suture cut, withdrawn to balloon Urine 1850 Kock pouch ileo 565 cultures blood and urine no growth WBC 7200 Hgb 10.3 Platelets 293,000 BUN up 28 Cr 0.9 albumin 2.6 Imp: slowly improving Plan: increase IV fluids and continue TPN maintain continuous drainage of Kock pouch (sutures cut, taped in place Lalo Meadows MD May 17, 2020 09:56
[2020-05-17] MEDS: D5 1/2NS w/KCl 20mEq 1,000 ML IV SCH (11:00)
[2020-05-17] MEDS: Lidocaine HCl 2% Jelly 6ml Tube TOPIC PRN (12:46)
--- NOTE | 2020-05-17 13:58 | Infectious Diseases Prog Note ---
Assessment/Plan Assessment/Plan ASSESSMENT AND PLAN: 1. ? sepsis, leukocytosis, fevers, thrombocytopenia, ? cholecystitis, ? aspiration pna/hcap vs atelectasis (favor atelectasis) klebsiella and enterococcus abscess - s/p debridement sbo, malfunctioning Kock ileostomy - s/p surgery ileus, ? bowel obstruction fungemia risk - s/p vancomycin, ciprofloxacin, flagyl and micafungin - f/u urine/blood cultures negative - improving clinically, thrombocytopenia resolved - monitor labs 2. The patient has a history of Kock pouch continent ileostomy. 3. History of ulcerative colitis. 4. History of multiple abdominal surgeries. 5. History of spine surgery. 6. History of parathyroid adenoma. 7. History of proctocolectomy. 8. History of laparotomy. 9. Anemia. 10. Thrombocytopenia. 11. Allergies to adhesive tape. 12. Social history is negative. 13. Family history is noncontributory. 14. MAR is noted. 15. Case was discussed with RN. 16. Continue treatment per Dr. Meadows and consultants. 17. I will follow. Subjective Constitutional: Denies: fever HEENT: Denies: congestion Respiratory: Denies: shortness of breath Cardiovascular: Denies: chest pain Gastrointestinal/Abdominal: Denies: nausea, vomiting, diarrhea Genitourinary: Reports: other - no decker Neurologic: Denies: headache Psychiatric: Denies: depression Skin: Denies: rash Hematologic: Denies: bleeding Musculoskeletal: Denies: pain Allergies: Coded Allergies: ADHESIVE TAPE (Verified Adverse Reaction, Intermediate, Rash, 08/27/19) CLEAR TAPE Objective Last 24 Hour Vital Signs Date Time Temp Pulse Resp B/P (MAP) Pulse Ox O2 Delivery O2 Flow Rate FiO2 05/17/20 12:00 98.9 95 18 123/76 (92) 97 05/17/20 11:11 98.2 05/17/20 09:20 Room Air 05/17/20 08:00 98.2 98 18 121/71 (88) 96 05/17/20 06:00 98.8 05/17/20 04:00 98.8 99 20 117/70 (86) 96 05/17/20 00:00 98.8 94 20 111/72 (85) 97 05/16/20 23:19 98.7 7/18/20 21:00 Room Air 05/16/20 20:00 98.7 102 20 122/75 (91) 97 05/16/20 16:00 98.5 98 18 120/72 (88) 97 Height (Feet): 5 Height (Inches): 3.00 Weight (Pounds): 139 General Appearance: no acute distress HEENT: normocephalic, atraumatic, anicteric, mucous membranes moist Respiratory/Chest: lungs clear, normal breath sounds, no respiratory distress, no accessory muscle use Cardiovascular: normal rate, regular rhythm, no gallop/murmur, no JVD Abdomen: normal bowel sounds, soft, non tender, no organomegaly, non distended Genitourinary: other - no decker Extremities: no cyanosis Skin: no rash Neurologic/Psychiatric: broke worker II-XII grossly normal, alert, responsive Lymphatic: no neck adenopathy Musculoskeletal: no effusion Chest x-ray - 05/07/20 - Procedure: XRAY Chest 1v Indication: Shortness of breath Technique: One view of the chest Comparison: 05/05/2020 Findings: Interim partial improvement of previously demonstrated bilateral suprahilar infiltrates. There is some persistent right perihilar atelectasis. The heart size is normal. Impression: Improved bilateral suprahilar interstitial infiltrates, over 2 days Abdominal US: Impression: Distended gallbladder with borderline wall thickening, but no gallstones. Significance uncertain. Mildly dilated common bile duct. May be age-related, downstream obstruction not completely excludable particularly in view of findings reported on recent CT scan. Correlate with liver function tests, consider MRCP for further evaluation if clinically indicated CT abdomen and pelvis - 04/27/20 - Impression: Dilated proximal small bowel loops, with another short segment of dilated mid small bowel, nondilated distal small bowel loops. Findings are concerning for small bowel obstruction. Given somewhat prominent mucosal enhancement, findings could also be due to enteritis. Trace ascites, possibly related to the above Postsurgical changes, as described. Note that the Decker catheter is deep within the reservoir but the reservoir is somewhat distended with material. Ectatic extrahepatic bile ducts. Suspect age-related is this is unchanged from the prior study. Correlate with liver function tests Nonspecific prominent retroperitoneal lymph nodes Findings discussed by phone with Dr. Meadows at the time of interpretation KUB - 05/08/20 - FINDINGS/IMPRESSION: Multiple, mildly prominent loops of colon which may correlate with postoperative ileus. No large volume free intraperitoneal air. Extensive suture line within the pelvis and right lower quadrant, correlate with surgical history. Midline cutaneous skin lu. The lung bases are clear. Degenerative changes of the spine. Chest x-ray - 05/14/20 - Procedure: XRAY Chest 1v Indication: Cough Technique: One view of the chest Comparison: 05/07/2020 Findings: There is small left pleural effusion. Previously demonstrated right perihilar atelectasis is no longer evident. No new infiltrates. The heart size is normal. There is a right arm PICC. Impression: New small left pleural effusion. Resolved right perihilar atelectasis. Otherwise little change since prior study of 7 days earlier Microbiology Date/Time Source Procedure Growth Status 05/14/20 14:55 Urine,Clean Catch Urine Culture - Final NO GROWTH AFTER 48 HOURS Complete Laboratory Tests Test 05/16/20 17:49 05/16/20 23:27 05/17/20 05:12 05/17/20 05:15 POC Whole Blood Glucose 118 MG/DL (74-106) H 100 MG/DL (74-106) 111 MG/DL (74-106) H White Blood Count 7.2 K/UL (4.8-10.8) Red Blood Count 3.19 M/UL (4.20-5.40) L Hemoglobin 10.3 G/DL (12.0-16.0) L Hematocrit 31.7 % (37.0-47.0) L Mean Corpuscular Volume 99 FL (80-99) Mean Corpuscular Hemoglobin 32.2 PG (27.0-31.0) H Mean Corpuscular Hemoglobin Concent 32.5 G/DL (32.0-36.0) Red Cell Distribution Width 13.6 % (11.6-14.8) Platelet Count 293 K/UL (150-450) Mean Platelet Volume 8.1 FL (6.5-10.1) Neutrophils (%) (Auto) 69.8 % (45.0-75.0) Lymphocytes (%) (Auto) 19.2 % (20.0-45.0) L Monocytes (%) (Auto) 9.6 % (1.0-10.0) Eosinophils (%) (Auto) 0.2 % (0.0-3.0) Basophils (%) (Auto) 1.3 % (0.0-2.0) Sodium Level 139 MMOL/L (136-145) Potassium Level 4.4 MMOL/L (3.5-5.1) Chloride Level 105 MMOL/L (98-107) Carbon Dioxide Level 28 MMOL/L (21-32) Anion Gap 6 mmol/L (5-15) Blood Urea Nitrogen 28 mg/dL (7-18) H Creatinine 0.9 MG/DL (0.55-1.30) Estimat Glomerular Filtration Rate > 60 mL/min (>60) Glucose Level 104 MG/DL (74-106) Calcium Level 9.1 MG/DL (8.5-10.1) Total Bilirubin 0.3 MG/DL (0.2-1.0) Aspartate Amino Transf (AST/SGOT) 21 U/L (15-37) Alanine Aminotransferase (ALT/SGPT) 16 U/L (12-78) Alkaline Phosphatase 167 U/L (46-116) H Total Protein 7.3 G/DL (6.4-8.2) Albumin 2.6 G/DL (3.4-5.0) L Globulin 4.7 g/dL Albumin/Globulin Ratio 0.6 (1.0-2.7) L Test 05/17/20 12:15 POC Whole Blood Glucose Pending Current Medications Medications (Trade) Dose Ordered Sig/Jori Route PRN Reason Start Time Stop Time Status Last Admin Dose Admin Acetaminophen (Tylenol) 1,000 mg Q4H PRN GT temp>100.2 or headache 04/29/20 15:45 05/29/20 15:44 05/10/20 20:46 Acetaminophen/ Hydrocodone Bitart ([place] 5/325) 1 tab Q4H PRN ORAL pain 05/17/20 10:30 05/24/20 10:29 05/17/20 10:33 Alprazolam (Xanax) 0.5 mg Q6H PRN ORAL For Anxiety 05/15/20 11:15 05/22/20 11:14 05/17/20 01:31 Ascorbic Acid (Vitamin C) 500 mg NEEDED PRN ORAL Constipation 05/16/20 10:15 06/15/20 10:14 Bupropion HCl (Wellbutrin SR) 200 mg TWICE A DAY ORAL 04/26/20 21:00 05/26/20 20:59 05/17/20 08:34 Chlorhexidine Gluconate (Kathryn-Hex 2%) 1 applic DAILY@2000 TOPIC 04/27/20 20:00 07/26/20 19:59 05/16/20 20:47 Citalopram Hydrobromide (CeleXA) 20 mg DAILY ORAL 04/26/20 21:00 05/27/20 08:59 05/17/20 08:34 Dextrose 1,000 ml @ 0 mls/hr Q24H PRN IV PN interrupted or unavailable 04/28/20 08:30 05/28/20 08:29 Dextrose (Dextrose 50%) 25 ml Q30M PRN IV Hypoglycemia 04/28/20 08:30 07/27/20 08:29 Dextrose (Dextrose 50%) 50 ml Q30M PRN IV Hypoglycemia 04/28/20 08:30 07/27/20 08:29 Dextrose/ Electrolytes 1,000 ml @ 50 mls/hr Q20H IV 05/17/20 11:00 05/28/20 10:59 05/17/20 11:00 Diatrizoate Meglum/ Diatrizoate Sod (Gastrografin) 30 ml NOW PRN ORAL Radiology Procedure 05/15/20 11:00 05/18/20 10:54 Fat Emulsion Intravenous 216 ml/Amino Acids/ Electrolytes/ Dextrose 1,896 ml @ 79 mls/hr Q24H IV 05/09/20 21:00 06/08/20 20:59 05/16/20 20:47 Folic Acid (Folate) 1 mg DAILY ORAL 04/27/20 10:30 05/27/20 10:29 05/17/20 08:34 Insulin Aspart (NovoLOG) Q6HR SUBQ 04/29/20 00:00 07/28/20 00:00 05/14/20 12:29 Ketorolac Tromethamine (Toradol 30mg) 15 mg Q6H PRN IV Severe Breakthru Pain (>7) 05/15/20 11:15 05/20/20 11:14 05/16/20 22:49 Lidocaine HCl (Xylocaine Jelly 2%) 1 applic Q2H PRN TOPIC For Pain 05/17/20 10:00 08/15/20 09:59 05/17/20 12:46 Metoclopramide HCl (Reglan) 10 mg DAILYPRN PRN IVP Nausea & Vomiting 05/14/20 10:45 06/13/20 10:44 05/17/20 04:31 Miconazole Nitrate (Monistat) 1 applic BEDTIME VAGIN 05/11/20 21:00 08/09/20 20:59 05/16/20 20:48 Ondansetron HCl (Zofran) 4 mg Q4H PRN IVP Nausea & Vomiting 04/29/20 15:45 05/29/20 15:44 05/17/20 12:38 Patient Own Medication (Patient's Own Med) 1 ea QHS ORAL 05/13/20 21:00 06/12/20 20:59 05/16/20 20:47 Trazodone HCl (Desyrel) 300 mg BEDTIME PRN ORAL Insomnia 05/12/20 15:00 05/27/20 20:59 Osmin Bermudez MD May 17, 2020 13:58
[2020-05-17] MEDS: Dyna-Hex 2% Top Sol 2oz TOPIC SCH (19:46)
[2020-05-17] MEDS: Fat Emulsion Iv 20% 216 ML in Tpn 1,680 ML IV SCH (20:21)
[2020-05-17] MEDS: Miconazole Vag Cr 45gm Tube (100mg per applicator) VAGIN SCH (20:24)
[2020-05-17] MEDS: MYRBETRIQ 50 MG ORAL SCH (20:24)
[2020-05-18 04:00] VITALS: BP 115/62
[2020-05-18] MEDS: Ketorolac 30mg Inj IV PRN (05:13)
[2020-05-18] MEDS: NovoLOG Insulin Flexpen SUBQ SCH ×5 (05:19→23:12)
[2020-05-18] MEDS: D5 1/2NS w/KCl 20mEq 1,000 ML IV SCH ×2 (06:30→09:19)
[2020-05-18 06:46] LABS: BASOPHILS % (AUTO) 1.1 % (0.0-2.0); EOSINOPHILS % (AUTO) 0.2 % (0.0-3.0); HEMATOCRIT 33.3 % (37.0-47.0); HEMOGLOBIN 10.6 G/DL (12.0-16.0); LYMPHOCYTES % (AUTO) 17.2 % (20.0-45.0); MEAN CORPUSCULAR VOLUME 100 FL (80-99); MONOCYTES % (AUTO) 8.9 % (1.0-10.0); NEUTROPHILS % (AUTO) 72.6 % (45.0-75.0); PLATELET COUNT 369 K/UL (150-450); RED BLOOD COUNT 3.35 M/UL (4.20-5.40); RED CELL DISTRIBUTION WIDTH 13.7 % (11.6-14.8); WHITE BLOOD COUNT 7.5 K/UL (4.8-10.8)
[2020-05-18 07:52] LABS: ALANINE AMINOTRANSFERASE 26 U/L (12-78); ALBUMIN 2.8 G/DL (3.4-5.0); ALBUMIN/GLOBULIN RATIO 0.6 (1.0-2.7); ALKALINE PHOSPHATASE 186 U/L (46-116); ANION GAP 4 mmol/L (5-15); ASPARTATE AMINO TRANSFERASE 22 U/L (15-37); BILIRUBIN,TOTAL 0.4 MG/DL (0.2-1.0); BLOOD UREA NITROGEN 22 mg/dL (7-18); CALCIUM 9.5 MG/DL (8.5-10.1); CARBON DIOXIDE 29 MMOL/L (21-32); CHLORIDE 103 MMOL/L (98-107); PHOSPHORUS 3.8 MG/DL (2.5-4.9); POTASSIUM 4.6 MMOL/L (3.5-5.1); SODIUM 136 MMOL/L (136-145)
[2020-05-18 08:00] VITALS: BP 112/57
[2020-05-18] MEDS: Citalopram Hydrobromide 10mg Tab ORAL SCH (08:30)
[2020-05-18] MEDS: BuPROPion SR 100mg tab ORAL SCH ×2 (08:31→17:35)
[2020-05-18 08:33] LABS: % IRON SATURATION 39 % (15-50); IRON 72 ug/dL (50-175); TOTAL IRON BINDING CAPACITY 186 ug/dL (250-450)
[2020-05-18] MEDS: HYDROcodone/Acetamin 5/325 tab ORAL PRN ×3 (08:33→21:46)
[2020-05-18 12:00] VITALS: BP 130/73
--- NOTE | 2020-05-18 12:30 | Hematology/Onc Progress Note ---
Assessment/Plan Assessment/Plan ASSESSMENT AND PLAN: # SEVERE Thrombocytopenia that is severe, on admission, plt was wnl and now dropped to 8K The patient comes in with high-grade bowel obstruction and malfunction Kock pouch continent ileostomy. The patient is status post surgery including release of the bowel obstruction. The patient was noted to have pus in small intra-abdominal abscess. It was growing out Klebsiella pneumoniae and Enterococcus. The patient has a low platele count and could be secondary to cefepime, which the patient is on. --> cefepime has been stopped, likely culprits --> as per ID antibiotics, vancomycin, Cipro, and Flagyl. --> dic panel has been ordered --> peripheral smear has been ordered as well --> hapto neg and fibrinogen 738 --> hold off steroids --> no heparin or lovenox administered recently --> duplex lower ext ordered-->neg for dvt --> transfuse 2 units plt 05/07 --> plt trend 8k-->6k->34-->73->46->60-->74-->136-->163-->293->363 --> HIT antbody test ordered-->neg --> cr is wnl, less likely aHUS, also no schistocytes on smear noted --> also less likely iTP but is in differential ==>> consider bone marrow biopsy if labs not better # Anemia likely due to hemoldilution --> likely hemodilutional and chronic disease --> hgb trend 9.6-->9.4-->11.2 # The patient has a history of Kock pouch continent ileostomy. # History of ulcerative colitis. # History of multiple abdominal surgeries. # History of spine surgery. # History of parathyroid adenoma. # History of proctocolectomy. # History of laparotomy. The timing of this note does not necessarily reflect the time of the patient was seen. Greatly appreciate consultation. Subjective Constitutional: Denies: no symptoms, chills, fever, malaise, weakness, other HEENT: Denies: no symptoms, eye pain, blurred vision, tearing, double vision, ear pain, ear discharge, nose pain, nose congestion, throat pain, throat swelling, mouth pain, mouth swelling, other Cardiovascular: Denies: no symptoms, chest pain, edema, irregular heart rate, lightheadedness, palpitations, syncope, other Respiratory: Denies: no symptoms, cough, shortness of breath, SOB with excertion, SOB at rest, sputum, wheezing, other Gastrointestinal/Abdominal: Denies: no symptoms, abdomen distended, abdominal pain, black stools, tarry stools, blood in stool, constipated, diarrhea, difficulty swallowing, nausea, poor appetite, poor fluid intake, rectal bleeding , vomiting, other Genitourinary: Denies: no symptoms, burning, discharge, frequency, flank pain, hematuria, incontinence, pain, urgency, other Neurologic/Psychiatric: Denies: no symptoms, anxiety, depressed, emotional problems, headache, numbness, paresthesia, pre-existing deficit, seizure, tingling, tremors, weakness, other Endocrine: Denies: no symptoms, excessive sweating, flushing, intolerance to cold, intolerance to heat, increased hunger, increased thirst, increased urine, unexplained weight gain, unexplained weight loss, other Allergies: Coded Allergies: ADHESIVE TAPE (Verified Adverse Reaction, Intermediate, Rash, 08/27/19) CLEAR TAPE Subjective 05/08 gtube connected, plts 6k, ordered for transfusion, consider ahus as well, will get hit ab test 05/10 plt is 73, no bleeding, feelingbetter, holding off transfusion 05/11 labs are noted, no bleeding, plt 46k, remains on antibiotics, may consider biopsy tomorrow if labs do not improve 05/12 plt is better, gtube is clamped, no bleeding, no bleeding 05/13 platelets have briskly improved, dw pt and will hold off marrow 05/14 awake and alert, new small pleural effusion, no sob 05/15 meds noted, no bleeding, dw rn, no night sweats, still with pain abdominal 05/17 meds reviewed, no bleeding, irish rn, no major changes, plt 293 05/18 labs noted, no bleeding, irish rn, no night sweats Objective Objective Current Medications Medications (Trade) Dose Ordered Sig/Jori Route PRN Reason Start Time Stop Time Status Last Admin Dose Admin Acetaminophen (Tylenol) 1,000 mg Q4H PRN GT temp>100.2 or headache 04/29/20 15:45 05/29/20 15:44 05/10/20 20:46 Acetaminophen/ Hydrocodone Bitart ([place] 5/325) 1 tab Q4H PRN ORAL pain 05/17/20 10:30 05/24/20 10:29 05/18/20 08:33 Alprazolam (Xanax) 0.5 mg Q6H PRN ORAL For Anxiety 05/15/20 11:15 05/22/20 11:14 05/17/20 23:47 Ascorbic Acid (Vitamin C) 500 mg NEEDED PRN ORAL Constipation 05/16/20 10:15 06/15/20 10:14 Bupropion HCl (Wellbutrin SR) 200 mg TWICE A DAY ORAL 04/26/20 21:00 05/26/20 20:59 05/18/20 08:31 Chlorhexidine Gluconate (Kathryn-Hex 2%) 1 applic DAILY@2000 TOPIC 04/27/20 20:00 07/26/20 19:59 05/17/20 19:46 Citalopram Hydrobromide (CeleXA) 20 mg DAILY ORAL 04/26/20 21:00 05/27/20 08:59 05/18/20 08:30 Dextrose 1,000 ml @ 0 mls/hr Q24H PRN IV PN interrupted or unavailable 04/28/20 08:30 05/28/20 08:29 Dextrose (Dextrose 50%) 25 ml Q30M PRN IV Hypoglycemia 04/28/20 08:30 07/27/20 08:29 Dextrose (Dextrose 50%) 50 ml Q30M PRN IV Hypoglycemia 04/28/20 08:30 07/27/20 08:29 Dextrose/ Electrolytes 1,000 ml @ 10 mls/hr Q24H IV 05/18/20 11:00 05/28/20 10:59 05/18/20 09:19 Fat Emulsion Intravenous 216 ml/Amino Acids/ Electrolytes/ Dextrose 1,896 ml @ 79 mls/hr Q24H IV 05/09/20 21:00 06/08/20 20:59 05/17/20 20:21 Folic Acid (Folate) 1 mg DAILY ORAL 04/27/20 10:30 05/27/20 10:29 05/18/20 08:31 Insulin Aspart (NovoLOG) Q6HR SUBQ 04/29/20 00:00 07/28/20 00:00 05/14/20 12:29 Ketorolac Tromethamine (Toradol 30mg) 15 mg Q6H PRN IV Severe Breakthru Pain (>7) 05/15/20 11:15 05/20/20 11:14 05/18/20 05:13 Lidocaine HCl (Xylocaine Jelly 2%) 1 applic Q2H PRN TOPIC For Pain 05/17/20 10:00 08/15/20 09:59 05/17/20 12:46 Magnesium Sulfate 100 ml @ 100 mls/hr Q1H IVPB 05/18/20 09:15 05/18/20 13:14 05/18/20 12:01 Metoclopramide HCl (Reglan) 10 mg DAILYPRN PRN IVP Nausea & Vomiting 05/14/20 10:45 06/13/20 10:44 05/17/20 04:31 Miconazole Nitrate (Monistat) 1 applic BEDTIME VAGIN 05/11/20 21:00 08/09/20 20:59 05/17/20 20:24 Ondansetron HCl (Zofran) 4 mg Q4H PRN IVP Nausea & Vomiting 04/29/20 15:45 05/29/20 15:44 05/17/20 17:35 Patient Own Medication (Patient's Own Med) 1 ea QHS ORAL 05/13/20 21:00 06/12/20 20:59 05/17/20 20:24 Trazodone HCl (Desyrel) 300 mg BEDTIME PRN ORAL Insomnia 05/12/20 15:00 05/27/20 20:59 Last 24 Hour Vital Signs Date Time Temp Pulse Resp B/P (MAP) Pulse Ox O2 Delivery O2 Flow Rate FiO2 05/18/20 12:00 99.0 89 19 130/73 (92) 97 05/18/20 08:00 98.2 96 18 112/57 (75) 97 05/18/20 04:00 98.8 98 18 115/62 (79) 97 05/17/20 23:54 98.4 94 16 127/72 (90) 98 05/17/20 21:00 Room Air 05/17/20 20:00 99.0 93 16 126/70 (88) 97 05/17/20 16:00 98.5 100 18 126/72 (90) 97 05/17/20 12:00 98.9 95 18 123/76 (92) 97 05/17/20 11:11 98.2 05/17/20 09:20 Room Air 05/17/20 08:00 98.2 98 18 121/71 (88) 96 05/17/20 06:00 98.8 05/17/20 04:00 98.8 99 20 117/70 (86) 96 05/17/20 00:00 98.8 94 20 111/72 (85) 97 05/16/20 23:19 98.7 05/16/20 21:00 Room Air 05/16/20 20:00 98.7 102 20 122/75 (91) 97 05/16/20 16:00 98.5 98 18 120/72 (88) 97 Intake and Output 05/17/20 05/18/20 19:00 07:00 Intake Total 1230 ml 1820 ml Output Total 1545 ml 2200 ml Balance -315 ml -380 ml Intake Oral 1130 ml 480 ml IV Total 100 ml 1340 ml Output Urine Total 1200 ml 1900 ml Other 345 ml 300 ml # Voids 5 Labs Test 05/15/20 18:17 05/15/20 23:25 05/16/20 05:15 05/16/20 05:37 POC Whole Blood Glucose 78 MG/DL (74-106) 117 MG/DL (74-106) White Blood Count 6.5 K/UL (4.8-10.8) Red Blood Count 3.26 M/UL (4.20-5.40) Hemoglobin 10.6 G/DL (12.0-16.0) Hematocrit 32.3 % (37.0-47.0) Mean Corpuscular Volume 99 FL (80-99) Mean Corpuscular Hemoglobin 32.4 PG (27.0-31.0) Mean Corpuscular Hemoglobin Concent 32.7 G/DL (32.0-36.0) Red Cell Distribution Width 14.0 % (11.6-14.8) Platelet Count 246 K/UL (150-450) Mean Platelet Volume 9.3 FL (6.5-10.1) Neutrophils (%) (Auto) 67.9 % (45.0-75.0) Lymphocytes (%) (Auto) 19.2 % (20.0-45.0) Monocytes (%) (Auto) 10.3 % (1.0-10.0) Eosinophils (%) (Auto) 0.1 % (0.0-3.0) Basophils (%) (Auto) 2.5 % (0.0-2.0) Sodium Level 138 MMOL/L (136-145) Potassium Level 4.3 MMOL/L (3.5-5.1) Chloride Level 104 MMOL/L (98-107) Carbon Dioxide Level 27 MMOL/L (21-32) Anion Gap 7 mmol/L (5-15) Blood Urea Nitrogen 25 mg/dL (7-18) Creatinine 0.9 MG/DL (0.55-1.30) Estimat Glomerular Filtration Rate > 60 mL/min (>60) Glucose Level 111 MG/DL (74-106) Calcium Level 8.5 MG/DL (8.5-10.1) Total Bilirubin 0.4 MG/DL (0.2-1.0) Aspartate Amino Transf (AST/SGOT) 16 U/L (15-37) Alanine Aminotransferase (ALT/SGPT) 13 U/L (12-78) Alkaline Phosphatase 172 U/L (46-116) Total Protein 7.4 G/DL (6.4-8.2) Albumin 2.5 G/DL (3.4-5.0) Globulin 4.9 g/dL Albumin/Globulin Ratio 0.5 (1.0-2.7) Test 05/16/20 11:34 05/16/20 17:49 05/16/20 23:27 05/17/20 05:12 POC Whole Blood Glucose 121 MG/DL (74-106) 118 MG/DL (74-106) 100 MG/DL (74-106) 111 MG/DL (74-106) Test 05/17/20 05:15 05/17/20 12:15 05/17/20 17:27 05/17/20 23:53 White Blood Count 7.2 K/UL (4.8-10.8) Red Blood Count 3.19 M/UL (4.20-5.40) Hemoglobin 10.3 G/DL (12.0-16.0) Hematocrit 31.7 % (37.0-47.0) Mean Corpuscular Volume 99 FL (80-99) Mean Corpuscular Hemoglobin 32.2 PG (27.0-31.0) Mean Corpuscular Hemoglobin Concent 32.5 G/DL (32.0-36.0) Red Cell Distribution Width 13.6 % (11.6-14.8) Platelet Count 293 K/UL (150-450) Mean Platelet Volume 8.1 FL (6.5-10.1) Neutrophils (%) (Auto) 69.8 % (45.0-75.0) Lymphocytes (%) (Auto) 19.2 % (20.0-45.0) Monocytes (%) (Auto) 9.6 % (1.0-10.0) Eosinophils (%) (Auto) 0.2 % (0.0-3.0) Basophils (%) (Auto) 1.3 % (0.0-2.0) Sodium Level 139 MMOL/L (136-145) Potassium Level 4.4 MMOL/L (3.5-5.1) Chloride Level 105 MMOL/L (98-107) Carbon Dioxide Level 28 MMOL/L (21-32) Anion Gap 6 mmol/L (5-15) Blood Urea Nitrogen 28 mg/dL (7-18) Creatinine 0.9 MG/DL (0.55-1.30) Estimat Glomerular Filtration Rate > 60 mL/min (>60) Glucose Level 104 MG/DL (74-106) Calcium Level 9.1 MG/DL (8.5-10.1) Total Bilirubin 0.3 MG/DL (0.2-1.0) Aspartate Amino Transf (AST/SGOT) 21 U/L (15-37) Alanine Aminotransferase (ALT/SGPT) 16 U/L (12-78) Alkaline Phosphatase 167 U/L (46-116) Total Protein 7.3 G/DL (6.4-8.2) Albumin 2.6 G/DL (3.4-5.0) Globulin 4.7 g/dL Albumin/Globulin Ratio 0.6 (1.0-2.7) POC Whole Blood Glucose 123 MG/DL (74-106) 108 MG/DL (74-106) Test 05/18/20 05:19 05/18/20 05:35 05/18/20 12:07 POC Whole Blood Glucose 110 MG/DL (74-106) 120 MG/DL (74-106) White Blood Count 7.5 K/UL (4.8-10.8) Red Blood Count 3.35 M/UL (4.20-5.40) Hemoglobin 10.6 G/DL (12.0-16.0) Hematocrit 33.3 % (37.0-47.0) Mean Corpuscular Volume 100 FL (80-99) Mean Corpuscular Hemoglobin 31.7 PG (27.0-31.0) Mean Corpuscular Hemoglobin Concent 31.9 G/DL (32.0-36.0) Red Cell Distribution Width 13.7 % (11.6-14.8) Platelet Count 369 K/UL (150-450) Mean Platelet Volume 7.7 FL (6.5-10.1) Neutrophils (%) (Auto) 72.6 % (45.0-75.0) Lymphocytes (%) (Auto) 17.2 % (20.0-45.0) Monocytes (%) (Auto) 8.9 % (1.0-10.0) Eosinophils (%) (Auto) 0.2 % (0.0-3.0) Basophils (%) (Auto) 1.1 % (0.0-2.0) Sodium Level 136 MMOL/L (136-145) Potassium Level 4.6 MMOL/L (3.5-5.1) Chloride Level 103 MMOL/L (98-107) Carbon Dioxide Level 29 MMOL/L (21-32) Anion Gap 4 mmol/L (5-15) Blood Urea Nitrogen 22 mg/dL (7-18) Creatinine 1.0 MG/DL (0.55-1.30) Estimat Glomerular Filtration Rate 55.0 mL/min (>60) Glucose Level 111 MG/DL (74-106) Calcium Level 9.5 MG/DL (8.5-10.1) Phosphorus Level 3.8 MG/DL (2.5-4.9) Magnesium Level 1.7 MG/DL (1.8-2.4) Iron Level 72 ug/dL (50-175) Total Iron Binding Capacity 186 ug/dL (250-450) Percent Iron Saturation 39 % (15-50) Unsaturated Iron Binding 114 ug/dL (112-346) Total Bilirubin 0.4 MG/DL (0.2-1.0) Aspartate Amino Transf (AST/SGOT) 22 U/L (15-37) Alanine Aminotransferase (ALT/SGPT) 26 U/L (12-78) Alkaline Phosphatase 186 U/L (46-116) Total Protein 7.6 G/DL (6.4-8.2) Albumin 2.8 G/DL (3.4-5.0) Globulin 4.8 g/dL Albumin/Globulin Ratio 0.6 (1.0-2.7) Vitamin B12 Level 609 PG/ML (193-986) Folate 27.3 NG/ML (8.6-58.9) Height (Feet): 5 Height (Inches): 3.00 Weight (Pounds): 139 Objective Physical Exam: Vitals: reviewed General: NAD HEENT: nc, at Neck: supple Chest: clear breath sounds bilaterally Cardiovascular: RRR, no s3, s4 Abdomen: soft, nontender, nd ++gtube, Kouch pouch ++ midline scar site is c/d/i Extremities: no cce, normal range of motion Neuro: alert and oriented Cecilio Grey MD May 18, 2020 12:30
--- NOTE | 2020-05-18 14:58 | General Progress Note ---
Progress Note Progress Note AVSS c/o severe anxiety despite Xanax and her pre-admission psych meds Eating better 50% Abdomen soft, lu removed Kock pouch ileo 645cc labs all stable except Mg 1.7 albumin up to 2.8 Imp: Improving Severe anxiety Plan; Continue TPN Psychiatry Consultation will remove gastrostomy in AM will start Kock pouch self-intubations in 24-48 hours Lalo Meadows MD May 18, 2020 14:58
[2020-05-18 16:00] VITALS: BP 125/72
--- NOTE | 2020-05-18 16:11 | Pulmonology Progress Note ---
Subjective Interval Events: None new Constitutional: Denies: fever HEENT: Repors: no symptoms Respiratory: Reports: no symptoms Cardiovascular: Reports: no symptoms Gastrointestinal/Abdominal: Denies: nausea, vomiting, diarrhea Psychiatric: Denies: depression Skin: Denies: rash Musculoskeletal: Denies: pain Allergies: Coded Allergies: ADHESIVE TAPE (Verified Adverse Reaction, Intermediate, Rash, 08/27/19) CLEAR TAPE Objective Last 24 Hour Vital Signs Date Time Temp Pulse Resp B/P (MAP) Pulse Ox O2 Delivery O2 Flow Rate FiO2 05/18/20 12:00 99.0 89 19 130/73 (92) 97 05/18/20 09:00 Room Air 05/18/20 08:00 98.2 96 18 112/57 (75) 97 05/18/20 04:00 98.8 98 18 115/62 (79) 97 05/17/20 23:54 98.4 94 16 127/72 (90) 98 05/17/20 21:00 Room Air 05/17/20 20:00 99.0 93 16 126/70 (88) 97 Intake and Output 05/17/20 05/18/20 19:00 07:00 Intake Total 1230 ml 1820 ml Output Total 1545 ml 2200 ml Balance -315 ml -380 ml Intake Oral 1130 ml 480 ml IV Total 100 ml 1340 ml Output Urine Total 1200 ml 1900 ml Other 345 ml 300 ml # Voids 5 General Appearance: no acute distress HEENT: normocephalic Respiratory: chest wall non-tender, lungs clear Cardiovascular: normal peripheral pulses Abdomen: normal bowel sounds Laboratory Tests 05/17/20 17:27: POC Whole Blood Glucose 123H 05/17/20 23:53: POC Whole Blood Glucose 108H 05/18/20 05:19: POC Whole Blood Glucose 110H 05/18/20 05:35: White Blood Count 7.5, Red Blood Count 3.35L, Hemoglobin 10.6L, Hematocrit 33.3L , Mean Corpuscular Volume 100H, Mean Corpuscular Hemoglobin 31.7H, Mean Corpuscular Hemoglobin Concent 31.9L, Red Cell Distribution Width 13.7, Platelet Count 369, Mean Platelet Volume 7.7, Neutrophils (%) (Auto) 72.6, Lymphocytes (%) (Auto) 17.2L, Monocytes (%) (Auto) 8.9, Eosinophils (%) (Auto) 0.2, Basophils (%) (Auto) 1.1, Sodium Level 136, Potassium Level 4.6, Chloride Level 103, Carbon Dioxide Level 29, Anion Gap 4L, Blood Urea Nitrogen 22H, Creatinine 1.0, Estimat Glomerular Filtration Rate 55.0, Glucose Level 111H, Calcium Level 9.5, Phosphorus Level 3.8, Magnesium Level 1.7L, Iron Level 72, Total Iron Binding Capacity 186L, Percent Iron Saturation 39, Unsaturated Iron Binding 114, Total Bilirubin 0.4, Aspartate Amino Transf (AST/SGOT) 22, Alanine Aminotransferase (ALT/SGPT) 26, Alkaline Phosphatase 186H, Total Protein 7.6, Albumin 2.8L, Globulin 4.8, Albumin/Globulin Ratio 0.6L, Vitamin B12 Level 609, Folate 27.3 05/18/20 12:07: POC Whole Blood Glucose 120H Current Medications Medications (Trade) Dose Ordered Sig/Jori Route PRN Reason Start Time Stop Time Status Last Admin Dose Admin Acetaminophen (Tylenol) 1,000 mg Q4H PRN GT temp>100.2 or headache 04/29/20 15:45 05/29/20 15:44 05/10/20 20:46 Acetaminophen/ Hydrocodone Bitart ([place] 5/325) 1 tab Q4H PRN ORAL pain 05/17/20 10:30 05/24/20 10:29 05/18/20 14:43 Alprazolam (Xanax) 0.5 mg Q6H PRN ORAL For Anxiety 05/15/20 11:15 05/22/20 11:14 05/17/20 23:47 Ascorbic Acid (Vitamin C) 500 mg NEEDED PRN ORAL Constipation 05/16/20 10:15 06/15/20 10:14 Bupropion HCl (Wellbutrin SR) 200 mg TWICE A DAY ORAL 04/26/20 21:00 05/26/20 20:59 05/18/20 08:31 Chlorhexidine Gluconate (Kathryn-Hex 2%) 1 applic DAILY@1999 TOPIC 04/27/20 20:00 07/26/20 19:59 05/17/20 19:46 Citalopram Hydrobromide (CeleXA) 20 mg DAILY ORAL 04/26/20 21:00 05/27/20 08:59 05/18/20 08:30 Dextrose 1,000 ml @ 0 mls/hr Q24H PRN IV PN interrupted or unavailable 04/28/20 08:30 05/28/20 08:29 Dextrose (Dextrose 50%) 25 ml Q30M PRN IV Hypoglycemia 04/28/20 08:30 07/27/20 08:29 Dextrose (Dextrose 50%) 50 ml Q30M PRN IV Hypoglycemia 04/28/20 08:30 07/27/20 08:29 Dextrose/ Electrolytes 1,000 ml @ 10 mls/hr Q24H IV 05/18/20 11:00 05/28/20 10:59 05/18/20 09:19 Fat Emulsion Intravenous 216 ml/Amino Acids/ Electrolytes/ Dextrose 1,896 ml @ 79 mls/hr Q24H IV 05/09/20 21:00 06/08/20 20:59 05/17/20 20:21 Folic Acid (Folate) 1 mg DAILY ORAL 04/27/20 10:30 05/27/20 10:29 05/18/20 08:31 Insulin Aspart (NovoLOG) Q6HR SUBQ 04/29/20 00:00 07/28/20 00:00 05/14/20 12:29 Ketorolac Tromethamine (Toradol 30mg) 15 mg Q6H PRN IV Severe Breakthru Pain (>7) 05/15/20 11:15 05/20/20 11:14 05/18/20 05:13 Lidocaine HCl (Xylocaine Jelly 2%) 1 applic Q2H PRN TOPIC For Pain 05/17/20 10:00 08/15/20 09:59 05/17/20 12:46 Metoclopramide HCl (Reglan) 10 mg DAILYPRN PRN IVP Nausea & Vomiting 05/14/20 10:45 06/13/20 10:44 05/17/20 04:31 Miconazole Nitrate (Monistat) 1 applic BEDTIME VAGIN 05/11/20 21:00 08/09/20 20:59 05/17/20 20:24 Ondansetron HCl (Zofran) 4 mg Q4H PRN IVP Nausea & Vomiting 04/29/20 15:45 05/29/20 15:44 05/18/20 13:08 Patient Own Medication (Patient's Own Med) 1 ea QHS ORAL 05/13/20 21:00 06/12/20 20:59 05/17/20 20:24 Trazodone HCl (Desyrel) 300 mg BEDTIME PRN ORAL Insomnia 05/12/20 15:00 05/27/20 20:59 Assessment/Plan Assessment/Plan IMPRESSION: 1. Atelectasis, right lung. 2. Postnasal drip/allergic rhinitis. 3. Status post laparotomy and lysis of adhesions. 4. Chronic pain. 5. Ulcerative colitis. DISCUSSION: Respiratory status is stable Continue present care No fever last 24 hours Zenon Montoya Omar Syed MD May 18, 2020 16:11
[2020-05-18 20:00] VITALS: BP 112/73
[2020-05-18] MEDS: MYRBETRIQ 50 MG ORAL SCH (20:07)
[2020-05-18] MEDS: Miconazole Vag Cr 45gm Tube (100mg per applicator) VAGIN SCH (20:07)
[2020-05-18] MEDS: Dyna-Hex 2% Top Sol 2oz TOPIC SCH (20:07)
[2020-05-18] MEDS: Fat Emulsion Iv 20% 216 ML in Tpn 1,680 ML IV SCH (20:08)
[2020-05-18] MEDS: ALPRAZolam 0.5mg tab ORAL PRN (21:53)
--- NOTE | 2020-05-18 23:55 | Initial Psychiatric Evaluation ---
Psychiatry Consultation Psychiatry Consultation Chief Complaint: Abdominal Pain History of Present Illness: 69-year-old female admitted with abdominal pain relating to her Brantley pouch and had laparotomy for SBO. the pt is severely anxious and has been taking xanax the pt has hx xanax dependence and per pt and psychiatrist the pt had a hard time stopping xanax the pt has also dec appetite no si/hi Allergies: Coded Allergies: ADHESIVE TAPE (Verified Adverse Reaction, Intermediate, Rash, 08/27/19) CLEAR TAPE Past Psychiatric History: mdd anxiety on m psych meds spoke to psychiatrist no sa no psych hospitalization Medical History: hx of multiple abdominal surgeries. She also has a past medical history of ulcerative colitis, history of spine surgery, history of parathyroid adenoma, history of proctocolectomy and laparotomy. Medication History Scheduled Aspirin* (Aspirin*), 81 MG ORAL DAILY, (Reported) Atorvastatin Calcium* (Atorvastatin Calcium*), 20 MG ORAL BEDTIME, (Reported) Bupropion Sr* (Wellbutrin Sr*), 200 MG ORAL TWICE A DAY, (Reported) Celecoxib* (Celebrex*), 100 MG ORAL TWICE A DAY, (Reported) Citalopram Hydrobromide* (Celexa*), 40 MG ORAL DAILY, (Reported) Cyanocobalamin (Vitamin B-12) (Liquid B-12), 1,000 MCG SL DAILY, (Reported) Ipratropium [place] (Ipratropium [place]), 1 SPR NS FOUR TIMES A DAY, (Reported) Mirabegron (Myrbetriq), 50 MG PO DAILY, (Reported) Pantoprazole* (Protonix*), 40 MG ORAL BEFORE BREAKFAST, (Reported) Trazodone* (Trazodone*), 200 MG ORAL BEDTIME, (Reported) Scheduled PRN Carisoprodol* (Carisoprodol*), 350 MG ORAL BEDTIME PRN for NECK SPASM, (Reported ) Diphenhydramine Hcl* (Benadryl*), 50 MG ORAL HS PRN for Itching, (Reported) Hydrocodone Bit/Acetaminophen 5-325* ([place] 5-325*), 1 TAB ORAL Q6H PRN for For Pain, (Reported) Patient History History Provided By: Patient, Medical Record, PMD Objective Data Height (Feet): 5 Height (Inches): 3.00 Weight (Pounds): 139 Appearance: no abnormalities noted Behavior Mannerisms: good eye contact Affect: constricted Mood: depressed, anxious Speech: clear Thought Process: logical, goal-directed, organized, coherent Suicidal Ideation: not present Assessment/Plan Problem List: (1) MDD (major depressive disorder) ICD Codes: F32.9 - Major depressive disorder, single episode, unspecified SNOMED: 563329336 (2) Anxiety disorder ICD Codes: F41.9 - Anxiety disorder, unspecified SNOMED: 476854893 Status: doing well, stable, progressing Assessment/Plan: welb trazadone celexa xanax the pt is reluctant to change Antonio Preciado MD May 18, 2020 23:55
[2020-05-19] VITALS: BP 116/70
[2020-05-19] MEDS: Ketorolac 30mg Inj IV PRN (00:59)
[2020-05-19] MEDS: HYDROcodone/Acetamin 5/325 tab ORAL PRN ×3 (03:18→20:23)
[2020-05-19 04:00] VITALS: BP 124/63
[2020-05-19] MEDS: NovoLOG Insulin Flexpen SUBQ SCH ×3 (05:18→18:00)
[2020-05-19 05:41] LABS: ALANINE AMINOTRANSFERASE 21 U/L (12-78); ALBUMIN/GLOBULIN RATIO 0.6 (1.0-2.7); ALKALINE PHOSPHATASE 193 U/L (46-116); ANION GAP 4 mmol/L (5-15); ASPARTATE AMINO TRANSFERASE 21 U/L (15-37); BILIRUBIN,TOTAL 0.4 MG/DL (0.2-1.0); BLOOD UREA NITROGEN 29 mg/dL (7-18); CALCIUM 9.5 MG/DL (8.5-10.1); CARBON DIOXIDE 30 MMOL/L (21-32); CHLORIDE 102 MMOL/L (98-107); CREATININE 1.1 MG/DL (0.55-1.30); POTASSIUM 5.2 MMOL/L (3.5-5.1); SODIUM 136 MMOL/L (136-145)
[2020-05-19 06:33] LABS: BASOPHILS % (AUTO) 1.5 % (0.0-2.0); EOSINOPHILS % (AUTO) 0.3 % (0.0-3.0); HEMATOCRIT 32.8 % (37.0-47.0); HEMOGLOBIN 10.8 G/DL (12.0-16.0); LYMPHOCYTES % (AUTO) 16.9 % (20.0-45.0); MEAN CORPUSCULAR VOLUME 99 FL (80-99); MONOCYTES % (AUTO) 10.2 % (1.0-10.0); NEUTROPHILS % (AUTO) 71.1 % (45.0-75.0); PLATELET COUNT 375 K/UL (150-450); RED BLOOD COUNT 3.32 M/UL (4.20-5.40); RED CELL DISTRIBUTION WIDTH 13.6 % (11.6-14.8); WHITE BLOOD COUNT 7.6 K/UL (4.8-10.8)
[2020-05-19 08:00] VITALS: BP 116/73
[2020-05-19] MEDS: Citalopram Hydrobromide 10mg Tab ORAL SCH (09:10)
[2020-05-19] MEDS: BuPROPion SR 100mg tab ORAL SCH (09:11)
--- NOTE | 2020-05-19 10:08 | Pulmonology Progress Note ---
Subjective Interval Events: None new Constitutional: Denies: fever HEENT: Repors: no symptoms Respiratory: Reports: no symptoms Cardiovascular: Reports: no symptoms Gastrointestinal/Abdominal: Denies: nausea, vomiting, diarrhea Psychiatric: Denies: depression Skin: Denies: rash Musculoskeletal: Denies: pain Allergies: Coded Allergies: ADHESIVE TAPE (Verified Adverse Reaction, Intermediate, Rash, 08/27/19) CLEAR TAPE Objective Last 24 Hour Vital Signs Date Time Temp Pulse Resp B/P (MAP) Pulse Ox O2 Delivery O2 Flow Rate FiO2 05/19/20 09:00 Room Air 05/19/20 08:00 98.4 76 16 116/73 (87) 98 05/19/20 04:00 97.6 90 18 124/63 (83) 95 05/19/20 03:48 98.6 05/19/20 01:29 98.6 05/19/20 00:00 98.6 90 18 116/70 (85) 96 05/18/20 21:00 Room Air 05/18/20 20:00 98.9 100 16 112/73 (86) 98 05/18/20 16:00 98.7 92 19 125/72 (89) 97 05/18/20 12:00 99.0 89 19 130/73 (92) 97 Intake and Output 05/18/20 05/19/20 19:00 07:00 Intake Total 2059 ml 480 ml Output Total 1695 ml 990 ml Balance 364 ml -510 ml Intake Oral 600 ml 480 ml IV Total 1459 ml Output Urine Total 1550 ml 800 ml Other 145 ml 190 ml # Voids 4 General Appearance: no acute distress HEENT: normocephalic Respiratory: chest wall non-tender, lungs clear Cardiovascular: normal peripheral pulses Abdomen: normal bowel sounds Laboratory Tests 05/18/20 12:07: POC Whole Blood Glucose 120H 05/18/20 22:44: POC Whole Blood Glucose 111H 05/19/20 04:40: White Blood Count 7.6, Red Blood Count 3.32L, Hemoglobin 10.8L, Hematocrit 32.8L , Mean Corpuscular Volume 99, Mean Corpuscular Hemoglobin 32.6H, Mean Corpuscular Hemoglobin Concent 33.0, Red Cell Distribution Width 13.6, Platelet Count 375, Mean Platelet Volume 7.6, Neutrophils (%) (Auto) 71.1, Lymphocytes (% ) (Auto) 16.9L, Monocytes (%) (Auto) 10.2H, Eosinophils (%) (Auto) 0.3, Basophils (%) (Auto) 1.5, Sodium Level 136, Potassium Level 5.2H, Chloride Level 102, Carbon Dioxide Level 30, Anion Gap 4L, Blood Urea Nitrogen 29H, Creatinine 1.1, Estimat Glomerular Filtration Rate 49.3, Glucose Level 115H, Calcium Level 9.5, Magnesium Level 2.2, Total Bilirubin 0.4, Aspartate Amino Transf (AST/SGOT) 21, Alanine Aminotransferase (ALT/SGPT) 21, Alkaline Phosphatase 193H, Total Protein 7.7, Albumin 3.0L, Globulin 4.7, Albumin/ Globulin Ratio 0.6L 05/19/20 05:07: POC Whole Blood Glucose 113H Current Medications Medications (Trade) Dose Ordered Sig/Jori Route PRN Reason Start Time Stop Time Status Last Admin Dose Admin Acetaminophen (Tylenol) 1,000 mg Q4H PRN GT temp>100.2 or headache 04/29/20 15:45 05/29/20 15:44 05/10/20 20:46 Acetaminophen/ Hydrocodone Bitart ([place] 5/325) 1 tab Q4H PRN ORAL pain 05/17/20 10:30 05/24/20 10:29 05/19/20 03:18 Alprazolam (Xanax) 0.5 mg Q6H PRN ORAL For Anxiety 05/15/20 11:15 05/22/20 11:14 05/18/20 21:53 Ascorbic Acid (Vitamin C) 500 mg NEEDED PRN ORAL Constipation 05/16/20 10:15 06/15/20 10:14 Bupropion HCl (Wellbutrin SR) 200 mg DAILY ORAL 05/19/20 09:00 06/18/20 08:59 05/19/20 09:11 Chlorhexidine Gluconate (Kathryn-Hex 2%) 1 applic DAILY@2000 TOPIC 04/27/20 20:00 07/26/20 19:59 05/18/20 20:07 Citalopram Hydrobromide (CeleXA) 20 mg DAILY ORAL 04/26/20 21:00 05/27/20 08:59 05/19/20 09:10 Dextrose 1,000 ml @ 0 mls/hr Q24H PRN IV PN interrupted or unavailable 04/28/20 08:30 05/28/20 08:29 Dextrose (Dextrose 50%) 25 ml Q30M PRN IV Hypoglycemia 04/28/20 08:30 07/27/20 08:29 Dextrose (Dextrose 50%) 50 ml Q30M PRN IV Hypoglycemia 04/28/20 08:30 07/27/20 08:29 Dextrose/ Electrolytes 1,000 ml @ 10 mls/hr Q24H IV 05/18/20 11:00 05/28/20 10:59 05/18/20 09:19 Fat Emulsion Intravenous 216 ml/Amino Acids/ Electrolytes/ Dextrose 1,896 ml @ 79 mls/hr Q24H IV 05/09/20 21:00 06/08/20 20:59 05/18/20 20:08 Folic Acid (Folate) 1 mg DAILY ORAL 04/27/20 10:30 05/27/20 10:29 05/19/20 09:11 Insulin Aspart (NovoLOG) Q6HR SUBQ 04/29/20 00:00 07/28/20 00:00 05/14/20 12:29 Ketorolac Tromethamine (Toradol 30mg) 15 mg Q6H PRN IV Severe Breakthru Pain (>7) 05/15/20 11:15 05/20/20 11:14 05/19/20 00:59 Lidocaine HCl (Xylocaine Jelly 2%) 1 applic Q2H PRN TOPIC For Pain 05/17/20 10:00 08/15/20 09:59 05/17/20 12:46 Metoclopramide HCl (Reglan) 10 mg DAILYPRN PRN IVP Nausea & Vomiting 05/14/20 10:45 06/13/20 10:44 05/17/20 04:31 Miconazole Nitrate (Monistat) 1 applic BEDTIME VAGIN 05/11/20 21:00 08/09/20 20:59 05/18/20 20:07 Ondansetron HCl (Zofran) 4 mg Q4H PRN IVP Nausea & Vomiting 04/29/20 15:45 05/29/20 15:44 05/18/20 20:08 Patient Own Medication (Patient's Own Med) 1 ea QHS ORAL 05/13/20 21:00 06/12/20 20:59 05/18/20 20:07 Trazodone HCl (Desyrel) 300 mg BEDTIME PRN ORAL Insomnia 05/12/20 15:00 05/27/20 20:59 Assessment/Plan Assessment/Plan IMPRESSION: 1. Atelectasis, right lung. 2. Postnasal drip/allergic rhinitis. 3. Status post laparotomy and lysis of adhesions. 4. Chronic pain. 5. Ulcerative colitis. DISCUSSION: Respiratory status is stable Continue present care No fever last 24 hours Zenon Montoya Omar Syed MD May 19, 2020 10:08
[2020-05-19] MEDS: D5 1/2NS w/KCl 20mEq 1,000 ML IV SCH (11:00)
--- NOTE | 2020-05-19 11:33 | Hematology/Onc Progress Note ---
Assessment/Plan Assessment/Plan ASSESSMENT AND PLAN: # SEVERE Thrombocytopenia that is severe, on admission, plt was wnl and now dropped to 8K The patient comes in with high-grade bowel obstruction and malfunction Kock pouch continent ileostomy. The patient is status post surgery including release of the bowel obstruction. The patient was noted to have pus in small intra-abdominal abscess. It was growing out Klebsiella pneumoniae and Enterococcus. The patient has a low platele count and could be secondary to cefepime, which the patient is on. --> cefepime has been stopped, likely culprits --> as per ID antibiotics, vancomycin, Cipro, and Flagyl. --> dic panel has been ordered --> peripheral smear has been ordered as well --> hapto neg and fibrinogen 738 --> hold off steroids --> no heparin or lovenox administered recently --> duplex lower ext ordered-->neg for dvt --> transfuse 2 units plt 05/07 --> plt trend 8k-->6k->34-->73->46->60-->74-->136-->163-->293->363->375 --> HIT antbody test ordered-->neg --> cr is wnl, less likely aHUS, also no schistocytes on smear noted --> also less likely iTP but is in differential ==>> consider bone marrow biopsy if labs not better # Anemia likely due to hemoldilution --> likely hemodilutional and chronic disease --> hgb trend 9.6-->9.4-->11.2 # The patient has a history of Kock pouch continent ileostomy. # History of ulcerative colitis. # History of multiple abdominal surgeries. # History of spine surgery. # History of parathyroid adenoma. # History of proctocolectomy. # History of laparotomy. The timing of this note does not necessarily reflect the time of the patient was seen. Greatly appreciate consultation. Subjective Constitutional: Denies: no symptoms, chills, fever, malaise, weakness, other HEENT: Denies: no symptoms, eye pain, blurred vision, tearing, double vision, ear pain, ear discharge, nose pain, nose congestion, throat pain, throat swelling, mouth pain, mouth swelling, other Cardiovascular: Denies: no symptoms, chest pain, edema, irregular heart rate, lightheadedness, palpitations, syncope, other Respiratory: Denies: no symptoms, cough, shortness of breath, SOB with excertion, SOB at rest, sputum, wheezing, other Gastrointestinal/Abdominal: Denies: no symptoms, abdomen distended, abdominal pain, black stools, tarry stools, blood in stool, constipated, diarrhea, difficulty swallowing, nausea, poor appetite, poor fluid intake, rectal bleeding , vomiting, other Genitourinary: Denies: no symptoms, burning, discharge, frequency, flank pain, hematuria, incontinence, pain, urgency, other Hematologic/Lymphatic: Denies: no symptoms, anemia, easy bleeding, easy bruising, adenopathy, other Allergies: Coded Allergies: ADHESIVE TAPE (Verified Adverse Reaction, Intermediate, Rash, 08/27/19) CLEAR TAPE Subjective 05/08 gtube connected, plts 6k, ordered for transfusion, consider ahus as well, will get hit ab test 05/10 plt is 73, no bleeding, feelingbetter, holding off transfusion 05/11 labs are noted, no bleeding, plt 46k, remains on antibiotics, may consider biopsy tomorrow if labs do not improve 05/12 plt is better, gtube is clamped, no bleeding, no bleeding 05/13 platelets have briskly improved, dw pt and will hold off marrow 05/14 awake and alert, new small pleural effusion, no sob 05/15 meds noted, no bleeding, dw rn, no night sweats, still with pain abdominal 05/17 meds reviewed, no bleeding, dw rn, no major changes, plt 293 05/18 labs noted, no bleeding, dw rn, no night sweats 05/19 labs are reviewed, plt 375, no bleeding, meds noted Objective Objective Current Medications Medications (Trade) Dose Ordered Sig/Jori Route PRN Reason Start Time Stop Time Status Last Admin Dose Admin Acetaminophen (Tylenol) 1,000 mg Q4H PRN GT temp>100.2 or headache 04/29/20 15:45 05/29/20 15:44 05/10/20 20:46 Acetaminophen/ Hydrocodone Bitart ([place] 5/325) 1 tab Q4H PRN ORAL pain 05/17/20 10:30 05/24/20 10:29 05/19/20 10:16 Alprazolam (Xanax) 0.5 mg Q6H PRN ORAL For Anxiety 05/15/20 11:15 05/22/20 11:14 05/18/20 21:53 Ascorbic Acid (Vitamin C) 500 mg NEEDED PRN ORAL Constipation 05/16/20 10:15 06/15/20 10:14 Bupropion HCl (Wellbutrin SR) 200 mg DAILY ORAL 05/19/20 09:00 06/18/20 08:59 05/19/20 09:11 Chlorhexidine Gluconate (Kathryn-Hex 2%) 1 applic DAILY@2000 TOPIC 04/27/20 20:00 07/26/20 19:59 05/18/20 20:07 Citalopram Hydrobromide (CeleXA) 20 mg DAILY ORAL 04/26/20 21:00 05/27/20 08:59 05/19/20 09:10 Dextrose 1,000 ml @ 0 mls/hr Q24H PRN IV PN interrupted or unavailable 04/28/20 08:30 05/28/20 08:29 Dextrose (Dextrose 50%) 25 ml Q30M PRN IV Hypoglycemia 04/28/20 08:30 07/27/20 08:29 Dextrose (Dextrose 50%) 50 ml Q30M PRN IV Hypoglycemia 04/28/20 08:30 07/27/20 08:29 Dextrose/ Electrolytes 1,000 ml @ 10 mls/hr Q24H IV 05/18/20 11:00 05/28/20 10:59 05/18/20 09:19 Fat Emulsion Intravenous 216 ml/Amino Acids/ Electrolytes/ Dextrose 1,896 ml @ 79 mls/hr Q24H IV 05/09/20 21:00 06/08/20 20:59 05/18/20 20:08 Folic Acid (Folate) 1 mg DAILY ORAL 04/27/20 10:30 05/27/20 10:29 05/19/20 09:11 Insulin Aspart (NovoLOG) Q6HR SUBQ 04/29/20 00:00 07/28/20 00:00 05/14/20 12:29 Ketorolac Tromethamine (Toradol 30mg) 15 mg Q6H PRN IV Severe Breakthru Pain (>7) 05/15/20 11:15 05/20/20 11:14 05/19/20 00:59 Lidocaine HCl (Xylocaine Jelly 2%) 1 applic Q2H PRN TOPIC For Pain 05/17/20 10:00 08/15/20 09:59 05/17/20 12:46 Metoclopramide HCl (Reglan) 10 mg DAILYPRN PRN IVP Nausea & Vomiting 05/14/20 10:45 06/13/20 10:44 05/17/20 04:31 Miconazole Nitrate (Monistat) 1 applic BEDTIME VAGIN 05/11/20 21:00 08/09/20 20:59 05/18/20 20:07 Ondansetron HCl (Zofran) 4 mg Q4H PRN IVP Nausea & Vomiting 04/29/20 15:45 05/29/20 15:44 05/19/20 11:23 Patient Own Medication (Patient's Own Med) 1 ea QHS ORAL 05/13/20 21:00 06/12/20 20:59 05/18/20 20:07 Trazodone HCl (Desyrel) 300 mg BEDTIME PRN ORAL Insomnia 05/12/20 15:00 05/27/20 20:59 Last 24 Hour Vital Signs Date Time Temp Pulse Resp B/P (MAP) Pulse Ox O2 Delivery O2 Flow Rate FiO2 05/19/20 09:00 Room Air 05/19/20 08:00 98.4 76 16 116/73 (87) 98 05/19/20 04:00 97.6 90 18 124/63 (83) 95 05/19/20 03:48 98.6 05/19/20 01:29 98.6 05/19/20 00:00 98.6 90 18 116/70 (85) 96 05/18/20 21:00 Room Air 05/18/20 20:00 98.9 100 16 112/73 (86) 98 05/18/20 16:00 98.7 92 19 125/72 (89) 97 05/18/20 12:00 99.0 89 19 130/73 (92) 97 05/18/20 09:00 Room Air 05/18/20 08:00 98.2 96 18 112/57 (75) 97 05/18/20 04:00 98.8 98 18 115/62 (79) 97 05/17/20 23:54 98.4 94 16 127/72 (90) 98 05/17/20 21:00 Room Air 05/17/20 20:00 99.0 93 16 126/70 (88) 97 05/17/20 16:00 98.5 100 18 126/72 (90) 97 05/17/20 12:00 98.9 95 18 123/76 (92) 97 Intake and Output 05/18/20 05/19/20 19:00 07:00 Intake Total 2059 ml 569 ml Output Total 1695 ml 990 ml Balance 364 ml -421 ml Intake Oral 600 ml 480 ml IV Total 1459 ml 89 ml Output Urine Total 1550 ml 800 ml Other 145 ml 190 ml # Voids 4 Labs Test 05/16/20 11:34 05/16/20 17:49 05/16/20 23:27 05/17/20 05:12 POC Whole Blood Glucose 121 MG/DL (74-106) 118 MG/DL (74-106) 100 MG/DL (74-106) 111 MG/DL (74-106) Test 05/17/20 05:15 05/17/20 12:15 05/17/20 17:27 05/17/20 23:53 White Blood Count 7.2 K/UL (4.8-10.8) Red Blood Count 3.19 M/UL (4.20-5.40) Hemoglobin 10.3 G/DL (12.0-16.0) Hematocrit 31.7 % (37.0-47.0) Mean Corpuscular Volume 99 FL (80-99) Mean Corpuscular Hemoglobin 32.2 PG (27.0-31.0) Mean Corpuscular Hemoglobin Concent 32.5 G/DL (32.0-36.0) Red Cell Distribution Width 13.6 % (11.6-14.8) Platelet Count 293 K/UL (150-450) Mean Platelet Volume 8.1 FL (6.5-10.1) Neutrophils (%) (Auto) 69.8 % (45.0-75.0) Lymphocytes (%) (Auto) 19.2 % (20.0-45.0) Monocytes (%) (Auto) 9.6 % (1.0-10.0) Eosinophils (%) (Auto) 0.2 % (0.0-3.0) Basophils (%) (Auto) 1.3 % (0.0-2.0) Sodium Level 139 MMOL/L (136-145) Potassium Level 4.4 MMOL/L (3.5-5.1) Chloride Level 105 MMOL/L (98-107) Carbon Dioxide Level 28 MMOL/L (21-32) Anion Gap 6 mmol/L (5-15) Blood Urea Nitrogen 28 mg/dL (7-18) Creatinine 0.9 MG/DL (0.55-1.30) Estimat Glomerular Filtration Rate > 60 mL/min (>60) Glucose Level 104 MG/DL (74-106) Calcium Level 9.1 MG/DL (8.5-10.1) Total Bilirubin 0.3 MG/DL (0.2-1.0) Aspartate Amino Transf (AST/SGOT) 21 U/L (15-37) Alanine Aminotransferase (ALT/SGPT) 16 U/L (12-78) Alkaline Phosphatase 167 U/L (46-116) Total Protein 7.3 G/DL (6.4-8.2) Albumin 2.6 G/DL (3.4-5.0) Globulin 4.7 g/dL Albumin/Globulin Ratio 0.6 (1.0-2.7) POC Whole Blood Glucose 123 MG/DL (74-106) 108 MG/DL (74-106) Test 05/18/20 05:19 05/18/20 05:35 05/18/20 12:07 05/18/20 22:44 POC Whole Blood Glucose 110 MG/DL (74-106) 120 MG/DL (74-106) 111 MG/DL (74-106) White Blood Count 7.5 K/UL (4.8-10.8) Red Blood Count 3.35 M/UL (4.20-5.40) Hemoglobin 10.6 G/DL (12.0-16.0) Hematocrit 33.3 % (37.0-47.0) Mean Corpuscular Volume 100 FL (80-99) Mean Corpuscular Hemoglobin 31.7 PG (27.0-31.0) Mean Corpuscular Hemoglobin Concent 31.9 G/DL (32.0-36.0) Red Cell Distribution Width 13.7 % (11.6-14.8) Platelet Count 369 K/UL (150-450) Mean Platelet Volume 7.7 FL (6.5-10.1) Neutrophils (%) (Auto) 72.6 % (45.0-75.0) Lymphocytes (%) (Auto) 17.2 % (20.0-45.0) Monocytes (%) (Auto) 8.9 % (1.0-10.0) Eosinophils (%) (Auto) 0.2 % (0.0-3.0) Basophils (%) (Auto) 1.1 % (0.0-2.0) Sodium Level 136 MMOL/L (136-145) Potassium Level 4.6 MMOL/L (3.5-5.1) Chloride Level 103 MMOL/L (98-107) Carbon Dioxide Level 29 MMOL/L (21-32) Anion Gap 4 mmol/L (5-15) Blood Urea Nitrogen 22 mg/dL (7-18) Creatinine 1.0 MG/DL (0.55-1.30) Estimat Glomerular Filtration Rate 55.0 mL/min (>60) Glucose Level 111 MG/DL (74-106) Calcium Level 9.5 MG/DL (8.5-10.1) Phosphorus Level 3.8 MG/DL (2.5-4.9) Magnesium Level 1.7 MG/DL (1.8-2.4) Iron Level 72 ug/dL (50-175) Total Iron Binding Capacity 186 ug/dL (250-450) Percent Iron Saturation 39 % (15-50) Unsaturated Iron Binding 114 ug/dL (112-346) Total Bilirubin 0.4 MG/DL (0.2-1.0) Aspartate Amino Transf (AST/SGOT) 22 U/L (15-37) Alanine Aminotransferase (ALT/SGPT) 26 U/L (12-78) Alkaline Phosphatase 186 U/L (46-116) Total Protein 7.6 G/DL (6.4-8.2) Albumin 2.8 G/DL (3.4-5.0) Globulin 4.8 g/dL Albumin/Globulin Ratio 0.6 (1.0-2.7) Vitamin B12 Level 609 PG/ML (193-986) Folate 27.3 NG/ML (8.6-58.9) Test 05/19/20 04:40 05/19/20 05:07 White Blood Count 7.6 K/UL (4.8-10.8) Red Blood Count 3.32 M/UL (4.20-5.40) Hemoglobin 10.8 G/DL (12.0-16.0) Hematocrit 32.8 % (37.0-47.0) Mean Corpuscular Volume 99 FL (80-99) Mean Corpuscular Hemoglobin 32.6 PG (27.0-31.0) Mean Corpuscular Hemoglobin Concent 33.0 G/DL (32.0-36.0) Red Cell Distribution Width 13.6 % (11.6-14.8) Platelet Count 375 K/UL (150-450) Mean Platelet Volume 7.6 FL (6.5-10.1) Neutrophils (%) (Auto) 71.1 % (45.0-75.0) Lymphocytes (%) (Auto) 16.9 % (20.0-45.0) Monocytes (%) (Auto) 10.2 % (1.0-10.0) Eosinophils (%) (Auto) 0.3 % (0.0-3.0) Basophils (%) (Auto) 1.5 % (0.0-2.0) Sodium Level 136 MMOL/L (136-145) Potassium Level 5.2 MMOL/L (3.5-5.1) Chloride Level 102 MMOL/L (98-107) Carbon Dioxide Level 30 MMOL/L (21-32) Anion Gap 4 mmol/L (5-15) Blood Urea Nitrogen 29 mg/dL (7-18) Creatinine 1.1 MG/DL (0.55-1.30) Estimat Glomerular Filtration Rate 49.3 mL/min (>60) Glucose Level 115 MG/DL (74-106) Calcium Level 9.5 MG/DL (8.5-10.1) Magnesium Level 2.2 MG/DL (1.8-2.4) Total Bilirubin 0.4 MG/DL (0.2-1.0) Aspartate Amino Transf (AST/SGOT) 21 U/L (15-37) Alanine Aminotransferase (ALT/SGPT) 21 U/L (12-78) Alkaline Phosphatase 193 U/L (46-116) Total Protein 7.7 G/DL (6.4-8.2) Albumin 3.0 G/DL (3.4-5.0) Globulin 4.7 g/dL Albumin/Globulin Ratio 0.6 (1.0-2.7) POC Whole Blood Glucose 113 MG/DL (74-106) Height (Feet): 5 Height (Inches): 3.00 Weight (Pounds): 139 Objective Physical Exam: Vitals: reviewed General: NAD HEENT: nc, at Neck: supple Chest: clear breath sounds bilaterally Cardiovascular: RRR, no s3, s4 Abdomen: soft, nontender, nd ++gtube, Kouch pouch ++ midline scar site is c/d/i Extremities: no cce, normal range of motion Neuro: alert and oriented Cecilio Grey MD May 19, 2020 11:33
[2020-05-19 12:00] VITALS: BP 111/68
[2020-05-19] MEDS: ALPRAZolam 0.5mg tab ORAL PRN (13:57)
[2020-05-19] MEDS ORDERED: Ketorolac 30mg Inj IV PRN (14:15)
--- NOTE | 2020-05-19 14:18 | General Progress Note ---
Progress Note Progress Note AVSS Still c/o some intermittent abdominal pain, today in epigastrium. Eating poorly Abdomen soft, non-tender I&O, labs satisf/stable Albumin up to 3.0 Imp: Likely abdominal wall pain/incisional now that she is more active Plan; D/C TPN after currently ordered supply complete tomorrow evening May need gastrostomy tube feedings instead of TPN May need SNF/Rehab Start Kock pouch self-intubations within 24-48 hours Lalo Meadows MD May 19, 2020 14:18
--- NOTE | 2020-05-19 14:30 | Infectious Diseases Prog Note ---
Assessment/Plan Assessment/Plan ASSESSMENT AND PLAN: 1. ? sepsis, leukocytosis, fevers, thrombocytopenia, ? cholecystitis, ? aspiration pna/hcap vs atelectasis (favor atelectasis) klebsiella and enterococcus abscess - s/p debridement sbo, malfunctioning Kock ileostomy - s/p surgery ileus, ? bowel obstruction fungemia risk - s/p vancomycin, ciprofloxacin, flagyl and micafungin - f/u urine/blood cultures negative - improving clinically, thrombocytopenia resolved - monitor labs - d/w Dr. Meadows 2. The patient has a history of Kock pouch continent ileostomy. 3. History of ulcerative colitis. 4. History of multiple abdominal surgeries. 5. History of spine surgery. 6. History of parathyroid adenoma. 7. History of proctocolectomy. 8. History of laparotomy. 9. Anemia. 10. Thrombocytopenia. 11. Allergies to adhesive tape. 12. Social history is negative. 13. Family history is noncontributory. 14. MAR is noted. 15. Case was discussed with RN. 16. Continue treatment per Dr. Meadows and consultants. 17. I will follow. Subjective Constitutional: Denies: fever Respiratory: Denies: shortness of breath Cardiovascular: Denies: chest pain Gastrointestinal/Abdominal: Denies: nausea Genitourinary: Denies: dysuria, hematuria Neurologic: Denies: headache Psychiatric: Denies: depression Skin: Denies: rash Hematologic: Denies: bleeding Musculoskeletal: Denies: pain Allergies: Coded Allergies: ADHESIVE TAPE (Verified Adverse Reaction, Intermediate, Rash, 08/27/19) CLEAR TAPE Objective Last 24 Hour Vital Signs Date Time Temp Pulse Resp B/P (MAP) Pulse Ox O2 Delivery O2 Flow Rate FiO2 05/19/20 12:00 98.9 98 16 111/68 (82) 98 05/19/20 09:00 Room Air 05/19/20 08:00 98.4 76 16 116/73 (87) 98 05/19/20 04:00 97.6 90 18 124/63 (83) 95 05/19/20 03:48 98.6 05/19/20 01:29 98.6 05/19/20 00:00 98.6 90 18 116/70 (85) 96 05/18/20 21:00 Room Air 05/18/20 20:00 98.9 100 16 112/73 (86) 98 05/18/20 16:00 98.7 92 19 125/72 (89) 97 Height (Feet): 5 Height (Inches): 3.00 Weight (Pounds): 139 General Appearance: no acute distress HEENT: normocephalic, atraumatic, anicteric, mucous membranes moist Respiratory/Chest: lungs clear, normal breath sounds, no respiratory distress, respiratory distress Cardiovascular: normal rate, regular rhythm, no gallop/murmur, no JVD Abdomen: normal bowel sounds, soft, non tender, no organomegaly, non distended Genitourinary: other - no decker Extremities: no cyanosis Skin: no rash Neurologic/Psychiatric: group practice pediatrician II-XII grossly normal, alert, responsive Lymphatic: no neck adenopathy Musculoskeletal: no effusion Chest x-ray - 05/07/20 - Procedure: XRAY Chest 1v Indication: Shortness of breath Technique: One view of the chest Comparison: 05/05/2020 Findings: Interim partial improvement of previously demonstrated bilateral suprahilar infiltrates. There is some persistent right perihilar atelectasis. The heart size is normal. Impression: Improved bilateral suprahilar interstitial infiltrates, over 2 days Abdominal US: Impression: Distended gallbladder with borderline wall thickening, but no gallstones. Significance uncertain. Mildly dilated common bile duct. May be age-related, downstream obstruction not completely excludable particularly in view of findings reported on recent CT scan. Correlate with liver function tests, consider MRCP for further evaluation if clinically indicated CT abdomen and pelvis - 04/27/20 - Impression: Dilated proximal small bowel loops, with another short segment of dilated mid small bowel, nondilated distal small bowel loops. Findings are concerning for small bowel obstruction. Given somewhat prominent mucosal enhancement, findings could also be due to enteritis. Trace ascites, possibly related to the above Postsurgical changes, as described. Note that the Decker catheter is deep within the reservoir but the reservoir is somewhat distended with material. Ectatic extrahepatic bile ducts. Suspect age-related is this is unchanged from the prior study. Correlate with liver function tests Nonspecific prominent retroperitoneal lymph nodes Findings discussed by phone with Dr. Meadows at the time of interpretation KUB - 05/08/20 - FINDINGS/IMPRESSION: Multiple, mildly prominent loops of colon which may correlate with postoperative ileus. No large volume free intraperitoneal air. Extensive suture line within the pelvis and right lower quadrant, correlate with surgical history. Midline cutaneous skin lu. The lung bases are clear. Degenerative changes of the spine. Chest x-ray - 05/14/20 - Procedure: XRAY Chest 1v Indication: Cough Technique: One view of the chest Comparison: 05/07/2020 Findings: There is small left pleural effusion. Previously demonstrated right perihilar atelectasis is no longer evident. No new infiltrates. The heart size is normal. There is a right arm PICC. Impression: New small left pleural effusion. Resolved right perihilar atelectasis. Otherwise little change since prior study of 7 days earlier Microbiology Date/Time Source Procedure Growth Status 05/14/20 11:35 Blood Blood Culture - Preliminary NO GROWTH AFTER 4 DAYS Resulted 04/27/20 11:13 Nasopharynx SARS-CoV-2 RdRp Gene Assay - Final Complete 05/14/20 14:55 Urine,Clean Catch Urine Culture - Final NO GROWTH AFTER 48 HOURS Complete 04/29/20 14:48 Abdomen Gram Stain - Final Complete 04/29/20 14:48 Aerobic Culture - Final Klebsiella Pneumoniae Enterococcus Faecalis Complete 04/29/20 14:48 Abdomen Anaerobic Culture - Final NO ANAEROBES ISOLATED Complete Laboratory Tests Test 05/18/20 22:44 05/19/20 04:40 05/19/20 05:07 05/19/20 11:33 POC Whole Blood Glucose 111 MG/DL (74-106) H 113 MG/DL (74-106) H 120 MG/DL (74-106) H White Blood Count 7.6 K/UL (4.8-10.8) Red Blood Count 3.32 M/UL (4.20-5.40) L Hemoglobin 10.8 G/DL (12.0-16.0) L Hematocrit 32.8 % (37.0-47.0) L Mean Corpuscular Volume 99 FL (80-99) Mean Corpuscular Hemoglobin 32.6 PG (27.0-31.0) H Mean Corpuscular Hemoglobin Concent 33.0 G/DL (32.0-36.0) Red Cell Distribution Width 13.6 % (11.6-14.8) Platelet Count 375 K/UL (150-450) Mean Platelet Volume 7.6 FL (6.5-10.1) Neutrophils (%) (Auto) 71.1 % (45.0-75.0) Lymphocytes (%) (Auto) 16.9 % (20.0-45.0) L Monocytes (%) (Auto) 10.2 % (1.0-10.0) H Eosinophils (%) (Auto) 0.3 % (0.0-3.0) Basophils (%) (Auto) 1.5 % (0.0-2.0) Sodium Level 136 MMOL/L (136-145) Potassium Level 5.2 MMOL/L (3.5-5.1) H Chloride Level 102 MMOL/L (98-107) Carbon Dioxide Level 30 MMOL/L (21-32) Anion Gap 4 mmol/L (5-15) L Blood Urea Nitrogen 29 mg/dL (7-18) H Creatinine 1.1 MG/DL (0.55-1.30) Estimat Glomerular Filtration Rate 49.3 mL/min (>60) Glucose Level 115 MG/DL (74-106) H Calcium Level 9.5 MG/DL (8.5-10.1) Magnesium Level 2.2 MG/DL (1.8-2.4) Total Bilirubin 0.4 MG/DL (0.2-1.0) Aspartate Amino Transf (AST/SGOT) 21 U/L (15-37) Alanine Aminotransferase (ALT/SGPT) 21 U/L (12-78) Alkaline Phosphatase 193 U/L (46-116) H Total Protein 7.7 G/DL (6.4-8.2) Albumin 3.0 G/DL (3.4-5.0) L Globulin 4.7 g/dL Albumin/Globulin Ratio 0.6 (1.0-2.7) L Current Medications Medications (Trade) Dose Ordered Sig/Jori Route PRN Reason Start Time Stop Time Status Last Admin Dose Admin Acetaminophen (Tylenol) 1,000 mg Q4H PRN GT temp>100.2 or headache 04/29/20 15:45 05/29/20 15:44 05/10/20 20:46 Acetaminophen/ Hydrocodone Bitart ([place] 5/325) 1 tab Q4H PRN ORAL pain 05/17/20 10:30 05/24/20 10:29 05/19/20 10:16 Alprazolam (Xanax) 0.5 mg Q4H PRN ORAL For Anxiety 05/19/20 18:00 05/22/20 17:59 Ascorbic Acid (Vitamin C) 500 mg NEEDED PRN ORAL Constipation 05/16/20 10:15 06/15/20 10:14 Bupropion HCl (Wellbutrin SR) 200 mg DAILY ORAL 05/19/20 09:00 06/18/20 08:59 05/19/20 09:11 Chlorhexidine Gluconate (Kathryn-Hex 2%) 1 applic DAILY@2000 TOPIC 04/27/20 20:00 07/26/20 19:59 05/18/20 20:07 Citalopram Hydrobromide (CeleXA) 20 mg DAILY ORAL 04/26/20 21:00 05/27/20 08:59 05/19/20 09:10 Dextrose 1,000 ml @ 0 mls/hr Q24H PRN IV PN interrupted or unavailable 04/28/20 08:30 05/28/20 08:29 Dextrose (Dextrose 50%) 25 ml Q30M PRN IV Hypoglycemia 04/28/20 08:30 07/27/20 08:29 Dextrose (Dextrose 50%) 50 ml Q30M PRN IV Hypoglycemia 04/28/20 08:30 07/27/20 08:29 Fat Emulsion Intravenous 216 ml/Amino Acids/ Electrolytes/ Dextrose 1,896 ml @ 79 mls/hr Q24H IV 05/09/20 21:00 06/08/20 20:59 05/18/20 20:08 Folic Acid (Folate) 1 mg DAILY ORAL 04/27/20 10:30 05/27/20 10:29 05/19/20 09:11 Insulin Aspart (NovoLOG) Q6HR SUBQ 04/29/20 00:00 07/28/20 00:00 05/14/20 12:29 Ketorolac Tromethamine (Toradol 30mg) 15 mg Q6H PRN IV Severe Breakthru Pain (>7) 05/19/20 14:15 05/24/20 14:14 Lidocaine HCl (Xylocaine Jelly 2%) 1 applic Q2H PRN TOPIC For Pain 05/17/20 10:00 08/15/20 09:59 05/17/20 12:46 Metoclopramide HCl (Reglan) 10 mg DAILYPRN PRN IVP Nausea & Vomiting 05/14/20 10:45 06/13/20 10:44 05/17/20 04:31 Miconazole Nitrate (Monistat) 1 applic BEDTIME VAGIN 05/11/20 21:00 08/09/20 20:59 05/18/20 20:07 Ondansetron HCl (Zofran) 4 mg Q4H PRN IVP Nausea & Vomiting 04/29/20 15:45 05/29/20 15:44 05/19/20 11:23 Patient Own Medication (Patient's Own Med) 1 ea QHS ORAL 05/13/20 21:00 06/12/20 20:59 05/18/20 20:07 Trazodone HCl (Desyrel) 300 mg BEDTIME PRN ORAL Insomnia 05/12/20 15:00 05/27/20 20:59 Osmin Bermudez MD May 19, 2020 14:30
[2020-05-19 16:00] VITALS: BP 111/70
[2020-05-19] MEDS ORDERED: ALPRAZolam 0.5mg tab ORAL PRN (18:00)
[2020-05-19 20:00] VITALS: BP 121/64
[2020-05-19] MEDS: Dyna-Hex 2% Top Sol 2oz TOPIC SCH (20:21)
[2020-05-19] MEDS: MYRBETRIQ 50 MG ORAL SCH (20:22)
[2020-05-19] MEDS: Miconazole Vag Cr 45gm Tube (100mg per applicator) VAGIN SCH (20:22)
[2020-05-19] MEDS: Fat Emulsion Iv 20% 216 ML in Tpn 1,680 ML IV SCH (20:24)
[2020-05-19] MEDS: TraZODone 100mg tab ORAL PRN (22:57)
[2020-05-20] VITALS: BP 115/61
[2020-05-20 04:00] VITALS: BP 129/72
[2020-05-20] MEDS: HYDROcodone/Acetamin 5/325 tab ORAL PRN ×4 (04:31→22:08)
[2020-05-20] MEDS: NovoLOG Insulin Flexpen SUBQ SCH ×4 (06:00→17:38)
[2020-05-20 06:21] LABS: BASOPHILS % (AUTO) 1.5 % (0.0-2.0); EOSINOPHILS % (AUTO) 0.1 % (0.0-3.0); HEMATOCRIT 32.6 % (37.0-47.0); HEMOGLOBIN 10.3 G/DL (12.0-16.0); MEAN CORPUSCULAR VOLUME 101 FL (80-99); MONOCYTES % (AUTO) 9.5 % (1.0-10.0); NEUTROPHILS % (AUTO) 74.9 % (45.0-75.0); PLATELET COUNT 383 K/UL (150-450); RED BLOOD COUNT 3.25 M/UL (4.20-5.40); RED CELL DISTRIBUTION WIDTH 13.7 % (11.6-14.8); WHITE BLOOD COUNT 6.7 K/UL (4.8-10.8)
[2020-05-20 07:28] LABS: ALANINE AMINOTRANSFERASE 29 U/L (12-78); ALBUMIN 2.8 G/DL (3.4-5.0); ALBUMIN/GLOBULIN RATIO 0.6 (1.0-2.7); ALKALINE PHOSPHATASE 184 U/L (46-116); ANION GAP 8 mmol/L (5-15); ASPARTATE AMINO TRANSFERASE 20 U/L (15-37); BILIRUBIN,TOTAL 0.5 MG/DL (0.2-1.0); BLOOD UREA NITROGEN 27 mg/dL (7-18); CALCIUM 9.3 MG/DL (8.5-10.1); CARBON DIOXIDE 29 MMOL/L (21-32); CHLORIDE 102 MMOL/L (98-107); CREATININE 1.1 MG/DL (0.55-1.30); POTASSIUM 4.7 MMOL/L (3.5-5.1); SODIUM 138 MMOL/L (136-145)
[2020-05-20] MEDS ORDERED: ALPRAZolam 0.5mg tab ORAL PRN (07:54)
[2020-05-20 08:00] VITALS: BP 91/60
[2020-05-20] MEDS: BuPROPion SR 100mg tab ORAL SCH (08:17)
[2020-05-20] MEDS: Citalopram Hydrobromide 10mg Tab ORAL SCH (08:17)
--- NOTE | 2020-05-20 11:39 | Hematology/Onc Progress Note ---
Assessment/Plan Assessment/Plan ASSESSMENT AND PLAN: # SEVERE Thrombocytopenia that is severe, on admission, plt was wnl and now dropped to 8K The patient comes in with high-grade bowel obstruction and malfunction Kock pouch continent ileostomy. The patient is status post surgery including release of the bowel obstruction. The patient was noted to have pus in small intra-abdominal abscess. It was growing out Klebsiella pneumoniae and Enterococcus. The patient has a low platele count and could be secondary to cefepime, which the patient is on. --> cefepime has been stopped, likely culprits --> as per ID antibiotics, vancomycin, Cipro, and Flagyl. --> dic panel has been ordered --> peripheral smear has been ordered as well --> hapto neg and fibrinogen 738 --> hold off steroids --> no heparin or lovenox administered recently --> duplex lower ext ordered-->neg for dvt --> transfuse 2 units plt 05/07 --> plt trend 8k-->6k->34-->73->46->60-->74-->136-->163-->293->363->375-->383 --> HIT antbody test ordered-->neg --> cr is wnl, less likely aHUS, also no schistocytes on smear noted --> also less likely iTP but is in differential ==>> consider bone marrow biopsy if labs not better # Anemia likely due to hemoldilution --> likely hemodilutional and chronic disease --> hgb trend 9.6-->9.4-->11.2 # The patient has a history of Kock pouch continent ileostomy. # History of ulcerative colitis. # History of multiple abdominal surgeries. # History of spine surgery. # History of parathyroid adenoma. # History of proctocolectomy. # History of laparotomy. The timing of this note does not necessarily reflect the time of the patient was seen. Greatly appreciate consultation. Subjective HEENT: Denies: no symptoms, eye pain, blurred vision, tearing, double vision, ear pain, ear discharge, nose pain, nose congestion, throat pain, throat swelling, mouth pain, mouth swelling, other Cardiovascular: Denies: no symptoms, chest pain, edema, irregular heart rate, lightheadedness, palpitations, syncope, other Gastrointestinal/Abdominal: Denies: no symptoms, abdomen distended, abdominal pain, black stools, tarry stools, blood in stool, constipated, diarrhea, difficulty swallowing, nausea, poor appetite, poor fluid intake, rectal bleeding , vomiting, other Endocrine: Denies: no symptoms, excessive sweating, flushing, intolerance to cold, intolerance to heat, increased hunger, increased thirst, increased urine, unexplained weight gain, unexplained weight loss, other Hematologic/Lymphatic: Denies: no symptoms, anemia, easy bleeding, easy bruising, adenopathy, other Allergies: Coded Allergies: ADHESIVE TAPE (Verified Adverse Reaction, Intermediate, Rash, 08/27/19) CLEAR TAPE Subjective 05/08 gtube connected, plts 6k, ordered for transfusion, consider ahus as well, will get hit ab test 05/10 plt is 73, no bleeding, feelingbetter, holding off transfusion 05/11 labs are noted, no bleeding, plt 46k, remains on antibiotics, may consider biopsy tomorrow if labs do not improve 05/12 plt is better, gtube is clamped, no bleeding, no bleeding 05/13 platelets have briskly improved, dw pt and will hold off marrow 05/14 awake and alert, new small pleural effusion, no sob 05/15 meds noted, no bleeding, dw rn, no night sweats, still with pain abdominal 05/17 meds reviewed, no bleeding, dw rn, no major changes, plt 293 05/18 labs noted, no bleeding, dw rn, no night sweats 05/19 labs are reviewed, plt 375, no bleeding, meds noted 05/20 meds noted, no bleeding, no chills, plt better Objective Objective Current Medications Medications (Trade) Dose Ordered Sig/Jori Route PRN Reason Start Time Stop Time Status Last Admin Dose Admin Acetaminophen (Tylenol) 1,000 mg Q4H PRN GT temp>100.2 or headache 04/29/20 15:45 05/29/20 15:44 05/10/20 20:46 Acetaminophen/ Hydrocodone Bitart ([place] 5/325) 1 tab Q4H PRN ORAL pain 05/17/20 10:30 05/24/20 10:29 05/20/20 04:31 Alprazolam (Xanax) 0.5 mg Q4H PRN ORAL For Anxiety 05/20/20 07:54 05/27/20 07:53 Ascorbic Acid (Vitamin C) 500 mg NEEDED PRN ORAL Constipation 05/16/20 10:15 06/15/20 10:14 Bupropion HCl (Wellbutrin SR) 200 mg DAILY ORAL 05/19/20 09:00 06/18/20 08:59 05/20/20 08:17 Chlorhexidine Gluconate (Kathryn-Hex 2%) 1 applic DAILY@2000 TOPIC 04/27/20 20:00 07/26/20 19:59 05/19/20 20:21 Citalopram Hydrobromide (CeleXA) 20 mg DAILY ORAL 04/26/20 21:00 05/27/20 08:59 05/20/20 08:17 Dextrose 1,000 ml @ 0 mls/hr Q24H PRN IV PN interrupted or unavailable 04/28/20 08:30 05/20/20 19:59 Dextrose (Dextrose 50%) 25 ml Q30M PRN IV Hypoglycemia 04/28/20 08:30 07/27/20 08:29 Dextrose (Dextrose 50%) 50 ml Q30M PRN IV Hypoglycemia 04/28/20 08:30 07/27/20 08:29 Fat Emulsion Intravenous 216 ml/Amino Acids/ Electrolytes/ Dextrose 1,896 ml @ 79 mls/hr Q24H IV 05/09/20 21:00 05/20/20 19:59 05/19/20 20:24 Folic Acid (Folate) 1 mg DAILY ORAL 04/27/20 10:30 05/27/20 10:29 05/20/20 08:17 Insulin Aspart (NovoLOG) Q6HR SUBQ 04/29/20 00:00 05/20/20 19:59 05/14/20 12:29 Ketorolac Tromethamine (Toradol 30mg) 15 mg Q6H PRN IV Severe Breakthru Pain (>7) 05/19/20 14:15 05/24/20 14:14 Lidocaine HCl (Xylocaine Jelly 2%) 1 applic Q2H PRN TOPIC For Pain 05/17/20 10:00 08/15/20 09:59 05/17/20 12:46 Metoclopramide HCl (Reglan) 10 mg DAILYPRN PRN IVP Nausea & Vomiting 05/14/20 10:45 06/13/20 10:44 05/17/20 04:31 Miconazole Nitrate (Monistat) 1 applic BEDTIME VAGIN 05/11/20 21:00 08/09/20 20:59 05/19/20 20:22 Ondansetron HCl (Zofran) 4 mg Q4H PRN IVP Nausea & Vomiting 04/29/20 15:45 05/29/20 15:44 05/19/20 18:43 Patient Own Medication (Patient's Own Med) 1 ea QHS ORAL 05/13/20 21:00 06/12/20 20:59 05/19/20 20:22 Trazodone HCl (Desyrel) 300 mg BEDTIME PRN ORAL Insomnia 05/12/20 15:00 05/27/20 20:59 05/19/20 22:57 Last 24 Hour Vital Signs Date Time Temp Pulse Resp B/P (MAP) Pulse Ox O2 Delivery O2 Flow Rate FiO2 05/20/20 09:00 Room Air 05/20/20 08:00 99.3 85 20 91/60 (70) 97 05/20/20 04:00 99.8 110 20 129/72 (91) 95 05/20/20 00:00 98.6 98 20 115/61 (79) 97 05/19/20 21:00 Room Air 05/19/20 20:00 99.1 89 18 121/64 (83) 97 05/19/20 16:00 99.2 96 16 111/70 (84) 97 05/19/20 12:00 98.9 98 16 111/68 (82) 98 05/19/20 09:00 Room Air 05/19/20 08:00 98.4 76 16 116/73 (87) 98 05/19/20 04:00 97.6 90 18 124/63 (83) 95 05/19/20 03:48 98.6 05/19/20 01:29 98.6 05/19/20 00:00 98.6 90 18 116/70 (85) 96 05/18/20 21:00 Room Air 05/18/20 20:00 98.9 100 16 112/73 (86) 98 05/18/20 16:00 98.7 92 19 125/72 (89) 97 05/18/20 12:00 99.0 89 19 130/73 (92) 97 Intake and Output 05/19/20 05/20/20 18:59 06:59 Intake Total 1938 ml 960 ml Output Total 1320 ml 1495 ml Balance 618 ml -535 ml Intake Oral 950 ml 960 ml IV Total 988 ml Output Urine Total 1150 ml 1300 ml Other 170 ml 195 ml # Voids 4 Labs Test 05/17/20 12:15 05/17/20 17:27 05/17/20 23:53 05/18/20 05:19 POC Whole Blood Glucose 123 MG/DL (74-106) 108 MG/DL (74-106) 110 MG/DL (74-106) Test 05/18/20 05:35 05/18/20 12:07 05/18/20 22:44 05/19/20 04:40 White Blood Count 7.5 K/UL (4.8-10.8) 7.6 K/UL (4.8-10.8) Red Blood Count 3.35 M/UL (4.20-5.40) 3.32 M/UL (4.20-5.40) Hemoglobin 10.6 G/DL (12.0-16.0) 10.8 G/DL (12.0-16.0) Hematocrit 33.3 % (37.0-47.0) 32.8 % (37.0-47.0) Mean Corpuscular Volume 100 FL (80-99) 99 FL (80-99) Mean Corpuscular Hemoglobin 31.7 PG (27.0-31.0) 32.6 PG (27.0-31.0) Mean Corpuscular Hemoglobin Concent 31.9 G/DL (32.0-36.0) 33.0 G/DL (32.0-36.0) Red Cell Distribution Width 13.7 % (11.6-14.8) 13.6 % (11.6-14.8) Platelet Count 369 K/UL (150-450) 375 K/UL (150-450) Mean Platelet Volume 7.7 FL (6.5-10.1) 7.6 FL (6.5-10.1) Neutrophils (%) (Auto) 72.6 % (45.0-75.0) 71.1 % (45.0-75.0) Lymphocytes (%) (Auto) 17.2 % (20.0-45.0) 16.9 % (20.0-45.0) Monocytes (%) (Auto) 8.9 % (1.0-10.0) 10.2 % (1.0-10.0) Eosinophils (%) (Auto) 0.2 % (0.0-3.0) 0.3 % (0.0-3.0) Basophils (%) (Auto) 1.1 % (0.0-2.0) 1.5 % (0.0-2.0) Sodium Level 136 MMOL/L (136-145) 136 MMOL/L (136-145) Potassium Level 4.6 MMOL/L (3.5-5.1) 5.2 MMOL/L (3.5-5.1) Chloride Level 103 MMOL/L (98-107) 102 MMOL/L (98-107) Carbon Dioxide Level 29 MMOL/L (21-32) 30 MMOL/L (21-32) Anion Gap 4 mmol/L (5-15) 4 mmol/L (5-15) Blood Urea Nitrogen 22 mg/dL (7-18) 29 mg/dL (7-18) Creatinine 1.0 MG/DL (0.55-1.30) 1.1 MG/DL (0.55-1.30) Estimat Glomerular Filtration Rate 55.0 mL/min (>60) 49.3 mL/min (>60) Glucose Level 111 MG/DL (74-106) 115 MG/DL (74-106) Calcium Level 9.5 MG/DL (8.5-10.1) 9.5 MG/DL (8.5-10.1) Phosphorus Level 3.8 MG/DL (2.5-4.9) Magnesium Level 1.7 MG/DL (1.8-2.4) 2.2 MG/DL (1.8-2.4) Iron Level 72 ug/dL (50-175) Total Iron Binding Capacity 186 ug/dL (250-450) Percent Iron Saturation 39 % (15-50) Unsaturated Iron Binding 114 ug/dL (112-346) Total Bilirubin 0.4 MG/DL (0.2-1.0) 0.4 MG/DL (0.2-1.0) Aspartate Amino Transf (AST/SGOT) 22 U/L (15-37) 21 U/L (15-37) Alanine Aminotransferase (ALT/SGPT) 26 U/L (12-78) 21 U/L (12-78) Alkaline Phosphatase 186 U/L (46-116) 193 U/L (46-116) Total Protein 7.6 G/DL (6.4-8.2) 7.7 G/DL (6.4-8.2) Albumin 2.8 G/DL (3.4-5.0) 3.0 G/DL (3.4-5.0) Globulin 4.8 g/dL 4.7 g/dL Albumin/Globulin Ratio 0.6 (1.0-2.7) 0.6 (1.0-2.7) Vitamin B12 Level 609 PG/ML (193-986) Folate 27.3 NG/ML (8.6-58.9) POC Whole Blood Glucose 120 MG/DL (74-106) 111 MG/DL (74-106) Test 05/19/20 05:07 05/19/20 11:33 05/19/20 17:57 05/20/20 05:15 POC Whole Blood Glucose 113 MG/DL (74-106) 120 MG/DL (74-106) 121 MG/DL (74-106) White Blood Count 6.7 K/UL (4.8-10.8) Red Blood Count 3.25 M/UL (4.20-5.40) Hemoglobin 10.3 G/DL (12.0-16.0) Hematocrit 32.6 % (37.0-47.0) Mean Corpuscular Volume 101 FL (80-99) Mean Corpuscular Hemoglobin 31.8 PG (27.0-31.0) Mean Corpuscular Hemoglobin Concent 31.7 G/DL (32.0-36.0) Red Cell Distribution Width 13.7 % (11.6-14.8) Platelet Count 383 K/UL (150-450) Mean Platelet Volume 7.1 FL (6.5-10.1) Neutrophils (%) (Auto) 74.9 % (45.0-75.0) Lymphocytes (%) (Auto) 14.0 % (20.0-45.0) Monocytes (%) (Auto) 9.5 % (1.0-10.0) Eosinophils (%) (Auto) 0.1 % (0.0-3.0) Basophils (%) (Auto) 1.5 % (0.0-2.0) Sodium Level 138 MMOL/L (136-145) Potassium Level 4.7 MMOL/L (3.5-5.1) Chloride Level 102 MMOL/L (98-107) Carbon Dioxide Level 29 MMOL/L (21-32) Anion Gap 8 mmol/L (5-15) Blood Urea Nitrogen 27 mg/dL (7-18) Creatinine 1.1 MG/DL (0.55-1.30) Estimat Glomerular Filtration Rate 49.3 mL/min (>60) Glucose Level 102 MG/DL (74-106) Calcium Level 9.3 MG/DL (8.5-10.1) Phosphorus Level 4.0 MG/DL (2.5-4.9) Magnesium Level 1.8 MG/DL (1.8-2.4) Total Bilirubin 0.5 MG/DL (0.2-1.0) Aspartate Amino Transf (AST/SGOT) 20 U/L (15-37) Alanine Aminotransferase (ALT/SGPT) 29 U/L (12-78) Alkaline Phosphatase 184 U/L (46-116) Total Protein 7.3 G/DL (6.4-8.2) Albumin 2.8 G/DL (3.4-5.0) Globulin 4.5 g/dL Albumin/Globulin Ratio 0.6 (1.0-2.7) Height (Feet): 5 Height (Inches): 3.00 Weight (Pounds): 139 Objective Physical Exam: Vitals: reviewed General: NAD HEENT: nc, at Neck: supple Chest: clear breath sounds bilaterally Cardiovascular: RRR, no s3, s4 Abdomen: soft, nontender, nd ++gtube, Kouch pouch ++ midline scar site is c/d/i Extremities: no cce, normal range of motion Neuro: alert and oriented Cecilio Grey MD May 20, 2020 11:39
[2020-05-20 12:00] VITALS: BP 117/57
--- NOTE | 2020-05-20 13:46 | General Progress Note ---
Progress Note Progress Note AVSS Eating poorly but no GI symptoms - perhaps lack of appetite due to TPN which will be stopped tonight Unable to ambulate independently due to balance issues and weakness - does well with PT and a walker device Abdomen soft, some soreness upper pole of incision Gastrostomy site clean - tube plugged Kock pouch catheter draining well Imp: Slowly improving Plan: d/c TPN consider tube feedings via gastrostomy d/c planning for SNF/Rehab - may need to go with indwelling Kock pouch catheter if unable to self-intubate independently Lalo Meadows MD May 20, 2020 13:46
[2020-05-20 16:00] VITALS: BP 114/68
--- NOTE | 2020-05-20 18:33 | Pulmonology Progress Note ---
Subjective Interval Events: None new Constitutional: Denies: fever HEENT: Repors: no symptoms Respiratory: Reports: no symptoms Cardiovascular: Reports: no symptoms Gastrointestinal/Abdominal: Denies: nausea Psychiatric: Denies: depression Skin: Denies: rash Musculoskeletal: Denies: pain Allergies: Coded Allergies: ADHESIVE TAPE (Verified Adverse Reaction, Intermediate, Rash, 08/27/19) CLEAR TAPE Objective Last 24 Hour Vital Signs Date Time Temp Pulse Resp B/P (MAP) Pulse Ox O2 Delivery O2 Flow Rate FiO2 05/20/20 16:19 98.4 05/20/20 16:00 98.3 89 19 114/68 (83) 98 05/20/20 12:00 98.4 90 18 117/57 (77) 98 05/20/20 09:00 Room Air 05/20/20 08:00 99.3 85 20 91/60 (70) 97 05/20/20 04:00 99.8 110 20 129/72 (91) 95 05/20/20 00:00 98.6 98 20 115/61 (79) 97 05/19/20 21:00 Room Air 05/19/20 20:00 99.1 89 18 121/64 (83) 97 Intake and Output 05/19/20 05/20/20 19:00 07:00 Intake Total 1849 ml 960 ml Output Total 1320 ml 1495 ml Balance 529 ml -535 ml Intake Oral 950 ml 960 ml IV Total 899 ml Output Urine Total 1150 ml 1300 ml Other 170 ml 195 ml # Voids 4 General Appearance: no acute distress HEENT: normocephalic Respiratory: chest wall non-tender, lungs clear Cardiovascular: normal peripheral pulses Abdomen: normal bowel sounds Laboratory Tests 05/20/20 05:15: White Blood Count 6.7, Red Blood Count 3.25L, Hemoglobin 10.3L, Hematocrit 32.6L , Mean Corpuscular Volume 101H, Mean Corpuscular Hemoglobin 31.8H, Mean Corpuscular Hemoglobin Concent 31.7L, Red Cell Distribution Width 13.7, Platelet Count 383, Mean Platelet Volume 7.1, Neutrophils (%) (Auto) 74.9, Lymphocytes (%) (Auto) 14.0L, Monocytes (%) (Auto) 9.5, Eosinophils (%) (Auto) 0.1, Basophils (%) (Auto) 1.5, Sodium Level 138, Potassium Level 4.7, Chloride Level 102, Carbon Dioxide Level 29, Anion Gap 8, Blood Urea Nitrogen 27H, Creatinine 1.1, Estimat Glomerular Filtration Rate 49.3, Glucose Level 102, Calcium Level 9.3, Phosphorus Level 4.0, Magnesium Level 1.8, Total Bilirubin 0.5, Aspartate Amino Transf (AST/SGOT) 20, Alanine Aminotransferase (ALT/SGPT) 29, Alkaline Phosphatase 184H, Total Protein 7.3, Albumin 2.8L, Globulin 4.5, Albumin/Globulin Ratio 0.6L 05/20/20 17:37: POC Whole Blood Glucose [Pending] Current Medications Medications (Trade) Dose Ordered Sig/Jori Route PRN Reason Start Time Stop Time Status Last Admin Dose Admin Acetaminophen (Tylenol) 1,000 mg Q4H PRN GT temp>100.2 or headache 04/29/20 15:45 05/29/20 15:44 05/10/20 20:46 Acetaminophen/ Hydrocodone Bitart ([place] 5/325) 1 tab Q4H PRN ORAL pain 05/17/20 10:30 05/24/20 10:29 05/20/20 15:49 Alprazolam (Xanax) 0.5 mg Q4H PRN ORAL For Anxiety 05/20/20 07:54 05/27/20 07:53 Ascorbic Acid (Vitamin C) 500 mg NEEDED PRN ORAL Constipation 05/16/20 10:15 06/15/20 10:14 Bupropion HCl (Wellbutrin SR) 200 mg DAILY ORAL 05/19/20 09:00 06/18/20 08:59 05/20/20 08:17 Chlorhexidine Gluconate (Kathryn-Hex 2%) 1 applic DAILY@2000 TOPIC 04/27/20 20:00 07/26/20 19:59 05/19/20 20:21 Citalopram Hydrobromide (CeleXA) 20 mg DAILY ORAL 04/26/20 21:00 05/27/20 08:59 05/20/20 08:17 Dextrose 1,000 ml @ 0 mls/hr Q24H PRN IV PN interrupted or unavailable 04/28/20 08:30 05/20/20 19:59 Dextrose (Dextrose 50%) 25 ml Q30M PRN IV Hypoglycemia 04/28/20 08:30 07/27/20 08:29 Dextrose (Dextrose 50%) 50 ml Q30M PRN IV Hypoglycemia 04/28/20 08:30 07/27/20 08:29 Fat Emulsion Intravenous 216 ml/Amino Acids/ Electrolytes/ Dextrose 1,896 ml @ 79 mls/hr Q24H IV 05/09/20 21:00 05/20/20 19:59 05/19/20 20:24 Folic Acid (Folate) 1 mg DAILY ORAL 04/27/20 10:30 05/27/20 10:29 05/20/20 08:17 Insulin Aspart (NovoLOG) Q6HR SUBQ 04/29/20 00:00 05/20/20 19:59 05/14/20 12:29 Ketorolac Tromethamine (Toradol 30mg) 15 mg Q6H PRN IV Severe Breakthru Pain (>7) 05/19/20 14:15 05/24/20 14:14 Lidocaine HCl (Xylocaine Jelly 2%) 1 applic Q2H PRN TOPIC For Pain 05/17/20 10:00 08/15/20 09:59 05/17/20 12:46 Metoclopramide HCl (Reglan) 10 mg DAILYPRN PRN IVP Nausea & Vomiting 05/14/20 10:45 06/13/20 10:44 05/17/20 04:31 Miconazole Nitrate (Monistat) 1 applic BEDTIME VAGIN 05/11/20 21:00 08/09/20 20:59 05/19/20 20:22 Ondansetron HCl (Zofran) 4 mg Q4H PRN IVP Nausea & Vomiting 04/29/20 15:45 05/29/20 15:44 05/20/20 18:17 Patient Own Medication (Patient's Own Med) 1 ea QHS ORAL 05/13/20 21:00 06/12/20 20:59 05/19/20 20:22 Trazodone HCl (Desyrel) 300 mg BEDTIME PRN ORAL Insomnia 05/12/20 15:00 05/27/20 20:59 05/19/20 22:57 Assessment/Plan Assessment/Plan IMPRESSION: 1. Atelectasis, right lung. 2. Postnasal drip/allergic rhinitis. 3. Status post laparotomy and lysis of adhesions. 4. Chronic pain. 5. Ulcerative colitis. DISCUSSION: Respiratory status is stable Continue present care No fever last 24 hours Shree Pope M.D. Shree Pope MD May 20, 2020 18:33
[2020-05-20 20:00] VITALS: BP 106/64
[2020-05-20] MEDS: MYRBETRIQ 50 MG ORAL SCH (20:42)
[2020-05-20] MEDS: Miconazole Vag Cr 45gm Tube (100mg per applicator) VAGIN SCH (20:42)
[2020-05-20] MEDS: Dyna-Hex 2% Top Sol 2oz TOPIC SCH (20:42)
[2020-05-20] MEDS: TraZODone 100mg tab ORAL PRN (22:07)
--- NOTE | 2020-05-20 23:40 | Psych Consult Progress Note ---
Psychiatry Progress Note Psychiatry Progress Note Subjective the pt co anxiety spoke to outpt psych the pt has low appetite poor memory Medications Current Medications Medications (Trade) Dose Ordered Sig/Jori Route PRN Reason Start Time Stop Time Status Last Admin Dose Admin Acetaminophen (Tylenol) 1,000 mg Q4H PRN GT temp>100.2 or headache 04/29/20 15:45 05/29/20 15:44 05/10/20 20:46 Acetaminophen/ Hydrocodone Bitart ([place] 5/325) 1 tab Q4H PRN ORAL pain 05/17/20 10:30 05/24/20 10:29 05/20/20 22:08 Alprazolam (Xanax) 0.5 mg Q4H PRN ORAL For Anxiety 05/20/20 07:54 05/27/20 07:53 Ascorbic Acid (Vitamin C) 500 mg NEEDED PRN ORAL Constipation 05/16/20 10:15 06/15/20 10:14 Bupropion HCl (Wellbutrin SR) 200 mg DAILY ORAL 05/19/20 09:00 06/18/20 08:59 05/20/20 08:17 Chlorhexidine Gluconate (Kathryn-Hex 2%) 1 applic DAILY@2000 TOPIC 04/27/20 20:00 07/26/20 19:59 05/20/20 20:42 Citalopram Hydrobromide (CeleXA) 20 mg DAILY ORAL 04/26/20 21:00 05/27/20 08:59 05/20/20 08:17 Dextrose (Dextrose 50%) 25 ml Q30M PRN IV Hypoglycemia 04/28/20 08:30 07/27/20 08:29 Dextrose (Dextrose 50%) 50 ml Q30M PRN IV Hypoglycemia 04/28/20 08:30 07/27/20 08:29 Folic Acid (Folate) 1 mg DAILY ORAL 04/27/20 10:30 05/27/20 10:29 05/20/20 08:17 Ketorolac Tromethamine (Toradol 30mg) 15 mg Q6H PRN IV Severe Breakthru Pain (>7) 05/19/20 14:15 05/24/20 14:14 05/20/20 19:55 Lidocaine HCl (Xylocaine Jelly 2%) 1 applic Q2H PRN TOPIC For Pain 05/17/20 10:00 08/15/20 09:59 05/17/20 12:46 Metoclopramide HCl (Reglan) 10 mg DAILYPRN PRN IVP Nausea & Vomiting 05/14/20 10:45 06/13/20 10:44 05/17/20 04:31 Miconazole Nitrate (Monistat) 1 applic BEDTIME VAGIN 05/11/20 21:00 08/09/20 20:59 05/20/20 20:42 Ondansetron HCl (Zofran) 4 mg Q4H PRN IVP Nausea & Vomiting 04/29/20 15:45 05/29/20 15:44 05/20/20 18:17 Patient Own Medication (Patient's Own Med) 1 ea QHS ORAL 05/13/20 21:00 06/12/20 20:59 05/20/20 20:42 Trazodone HCl (Desyrel) 300 mg BEDTIME PRN ORAL Insomnia 05/12/20 15:00 05/27/20 20:59 05/20/20 22:07 Neurological/Psychiatric: Reports: anxiety, depressed, emotional problems Allergies: Coded Allergies: ADHESIVE TAPE (Verified Adverse Reaction, Intermediate, Rash, 08/27/19) CLEAR TAPE Objective Data Height (Feet): 5 Height (Inches): 3.00 Weight (Pounds): 139 General Appearance: WD/WN, no apparent distress, alert Additional Comments: Appearance: disheveled Behavior Mannerisms: good eye contact Affect: constricted Mood: depressed, irritable Speech: clear Thought Process: no abnormalities Suicidal Ideation: not present Assessment/Plan Assessment/Plan Problem List: (1) Depression Assessment & Plan: anxiety do lexapro 10mg po qam klonopin provided ro/st ICD Codes: F32.9 - Major depressive disorder, single episode, unspecified SNOMED: [id number] Assessment/Plan Assessment/Plan: (1) Depression Assessment & Plan: anxiety do welburtrin xanax celexa seroquel provided ro/st ICD Codes: F32.9 - Major depressive disorder, single episode, unspecified Anotnio Coates MD May 20, 2020 23:40
[2020-05-21] VITALS: BP 98/61
[2020-05-21 05:52] LABS: BASOPHILS % (AUTO) 1.6 % (0.0-2.0); EOSINOPHILS % (AUTO) 0.1 % (0.0-3.0); HEMOGLOBIN 10.3 G/DL (12.0-16.0); LYMPHOCYTES % (AUTO) 18.7 % (20.0-45.0); MEAN CORPUSCULAR VOLUME 100 FL (80-99); MONOCYTES % (AUTO) 8.2 % (1.0-10.0); NEUTROPHILS % (AUTO) 71.4 % (45.0-75.0); PLATELET COUNT 393 K/UL (150-450); RED BLOOD COUNT 3.19 M/UL (4.20-5.40); RED CELL DISTRIBUTION WIDTH 13.9 % (11.6-14.8); WHITE BLOOD COUNT 5.9 K/UL (4.8-10.8)
[2020-05-21 06:20] LABS: ALANINE AMINOTRANSFERASE 28 U/L (12-78); ALBUMIN 2.8 G/DL (3.4-5.0); ALBUMIN/GLOBULIN RATIO 0.6 (1.0-2.7); ALKALINE PHOSPHATASE 187 U/L (46-116); ANION GAP 6 mmol/L (5-15); ASPARTATE AMINO TRANSFERASE 25 U/L (15-37); BILIRUBIN,TOTAL 0.5 MG/DL (0.2-1.0); BLOOD UREA NITROGEN 27 mg/dL (7-18); CALCIUM 8.9 MG/DL (8.5-10.1); CARBON DIOXIDE 29 MMOL/L (21-32); CHLORIDE 103 MMOL/L (98-107); CREATININE 1.1 MG/DL (0.55-1.30); PHOSPHORUS 3.8 MG/DL (2.5-4.9); POTASSIUM 4.4 MMOL/L (3.5-5.1); SODIUM 138 MMOL/L (136-145)
--- NOTE | 2020-05-21 06:27 | Hematology/Onc Progress Note ---
Assessment/Plan Assessment/Plan ASSESSMENT AND PLAN: # SEVERE Thrombocytopenia that is severe, on admission, plt was wnl and now dropped to 8K The patient comes in with high-grade bowel obstruction and malfunction Kock pouch continent ileostomy. The patient is status post surgery including release of the bowel obstruction. The patient was noted to have pus in small intra-abdominal abscess. It was growing out Klebsiella pneumoniae and Enterococcus. The patient has a low platele count and could be secondary to cefepime, which the patient is on. --> cefepime has been stopped, likely culprits --> as per ID antibiotics, vancomycin, Cipro, and Flagyl. --> dic panel has been ordered --> peripheral smear has been ordered as well --> hapto neg and fibrinogen 738 --> hold off steroids --> no heparin or lovenox administered recently --> duplex lower ext ordered-->neg for dvt --> transfuse 2 units plt 05/07 --> plt trend 8k-->6k->34-->73->46->60-->74-->136-->163-->293->363->375-->383 --> HIT antbody test ordered-->neg --> cr is wnl, less likely aHUS, also no schistocytes on smear noted --> also less likely iTP but is in differential ==>> consider bone marrow biopsy if labs not better # Anemia likely due to hemoldilution --> likely hemodilutional and chronic disease --> hgb trend 9.6-->9.4-->11.2-->10.3 # The patient has a history of Kock pouch continent ileostomy. # History of ulcerative colitis. # History of multiple abdominal surgeries. # History of spine surgery. # History of parathyroid adenoma. # History of proctocolectomy. # History of laparotomy. The timing of this note does not necessarily reflect the time of the patient was seen. Greatly appreciate consultation. Subjective Constitutional: Denies: no symptoms, chills, fever, malaise, weakness, other HEENT: Denies: no symptoms, eye pain, blurred vision, tearing, double vision, ear pain, ear discharge, nose pain, nose congestion, throat pain, throat swelling, mouth pain, mouth swelling, other Cardiovascular: Denies: no symptoms, chest pain, edema, irregular heart rate, lightheadedness, palpitations, syncope, other Gastrointestinal/Abdominal: Denies: no symptoms, abdomen distended, abdominal pain, black stools, tarry stools, blood in stool, constipated, diarrhea, difficulty swallowing, nausea, poor appetite, poor fluid intake, rectal bleeding , vomiting, other Genitourinary: Denies: no symptoms, burning, discharge, frequency, flank pain, hematuria, incontinence, pain, urgency, other Hematologic/Lymphatic: Denies: no symptoms, anemia, easy bleeding, easy bruising, adenopathy, other Allergies: Coded Allergies: ADHESIVE TAPE (Verified Adverse Reaction, Intermediate, Rash, 08/27/19) CLEAR TAPE Subjective 05/08 gtube connected, plts 6k, ordered for transfusion, consider ahus as well, will get hit ab test 05/10 plt is 73, no bleeding, feelingbetter, holding off transfusion 05/11 labs are noted, no bleeding, plt 46k, remains on antibiotics, may consider biopsy tomorrow if labs do not improve 05/12 plt is better, gtube is clamped, no bleeding, no bleeding 05/13 platelets have briskly improved, dw pt and will hold off marrow 05/14 awake and alert, new small pleural effusion, no sob 05/15 meds noted, no bleeding, dw rn, no night sweats, still with pain abdominal 05/17 meds reviewed, no bleeding, dw rn, no major changes, plt 293 05/18 labs noted, no bleeding, dw rn, no night sweats 05/19 labs are reviewed, plt 375, no bleeding, meds noted 05/20 meds noted, no bleeding, no chills, plt better 723 no bleeding no chills, no fc, hgb 10.3, no hemolysis Objective Objective Current Medications Medications (Trade) Dose Ordered Sig/Jori Route PRN Reason Start Time Stop Time Status Last Admin Dose Admin Acetaminophen (Tylenol) 1,000 mg Q4H PRN GT temp>100.2 or headache 04/29/20 15:45 05/29/20 15:44 05/10/20 20:46 Acetaminophen/ Hydrocodone Bitart ([place] 5/325) 1 tab Q4H PRN ORAL pain 05/17/20 10:30 05/24/20 10:29 05/20/20 22:08 Alprazolam (Xanax) 0.5 mg Q4H PRN ORAL For Anxiety 05/20/20 07:54 05/27/20 07:53 Ascorbic Acid (Vitamin C) 500 mg NEEDED PRN ORAL Constipation 05/16/20 10:15 06/15/20 10:14 Bupropion HCl (Wellbutrin SR) 200 mg DAILY ORAL 05/19/20 09:00 06/18/20 08:59 05/20/20 08:17 Chlorhexidine Gluconate (Kathryn-Hex 2%) 1 applic DAILY@2000 TOPIC 04/27/20 20:00 07/26/20 19:59 05/20/20 20:42 Citalopram Hydrobromide (CeleXA) 20 mg DAILY ORAL 04/26/20 21:00 05/27/20 08:59 05/20/20 08:17 Dextrose (Dextrose 50%) 25 ml Q30M PRN IV Hypoglycemia 04/28/20 08:30 07/27/20 08:29 Dextrose (Dextrose 50%) 50 ml Q30M PRN IV Hypoglycemia 04/28/20 08:30 07/27/20 08:29 Folic Acid (Folate) 1 mg DAILY ORAL 04/27/20 10:30 05/27/20 10:29 05/20/20 08:17 Ketorolac Tromethamine (Toradol 30mg) 15 mg Q6H PRN IV Severe Breakthru Pain (>7) 05/19/20 14:15 05/24/20 14:14 05/20/20 19:55 Lidocaine HCl (Xylocaine Jelly 2%) 1 applic Q2H PRN TOPIC For Pain 05/17/20 10:00 08/15/20 09:59 05/17/20 12:46 Metoclopramide HCl (Reglan) 10 mg DAILYPRN PRN IVP Nausea & Vomiting 05/14/20 10:45 06/13/20 10:44 05/17/20 04:31 Miconazole Nitrate (Monistat) 1 applic BEDTIME VAGIN 05/11/20 21:00 08/09/20 20:59 05/20/20 20:42 Ondansetron HCl (Zofran) 4 mg Q4H PRN IVP Nausea & Vomiting 04/29/20 15:45 05/29/20 15:44 05/20/20 18:17 Patient Own Medication (Patient's Own Med) 1 ea QHS ORAL 05/13/20 21:00 06/12/20 20:59 05/20/20 20:42 Trazodone HCl (Desyrel) 300 mg BEDTIME PRN ORAL Insomnia 05/12/20 15:00 05/27/20 20:59 05/20/20 22:07 Last 24 Hour Vital Signs Date Time Temp Pulse Resp B/P (MAP) Pulse Ox O2 Delivery O2 Flow Rate FiO2 05/21/20 00:00 98.6 98 19 98/61 (73) 96 05/20/20 21:00 Room Air 05/20/20 20:00 98.9 95 19 106/64 (78) 98 05/20/20 16:19 98.4 05/20/20 16:00 98.3 89 19 114/68 (83) 98 05/20/20 12:00 98.4 90 18 117/57 (77) 98 05/20/20 09:00 Room Air 05/20/20 08:00 99.3 85 20 91/60 (70) 97 05/20/20 04:00 99.8 110 20 129/72 (91) 95 05/20/20 00:00 98.6 98 20 115/61 (79) 97 05/19/20 21:00 Room Air 05/19/20 20:00 99.1 89 18 121/64 (83) 97 05/19/20 16:00 99.2 96 16 111/70 (84) 97 05/19/20 12:00 98.9 98 16 111/68 (82) 98 05/19/20 09:00 Room Air 05/19/20 08:00 98.4 76 16 116/73 (87) 98 Intake and Output 05/20/20 05/21/20 18:59 06:59 Intake Total 928 ml 120 ml Output Total 1795 ml 370 ml Balance -867 ml -250 ml Intake Oral 928 ml 120 ml Output Urine Total 1450 ml 250 ml Other 345 ml 120 ml # Voids 1 Labs Test 05/18/20 12:07 05/18/20 22:44 05/19/20 04:40 05/19/20 05:07 POC Whole Blood Glucose 120 MG/DL (74-106) 111 MG/DL (74-106) 113 MG/DL (74-106) White Blood Count 7.6 K/UL (4.8-10.8) Red Blood Count 3.32 M/UL (4.20-5.40) Hemoglobin 10.8 G/DL (12.0-16.0) Hematocrit 32.8 % (37.0-47.0) Mean Corpuscular Volume 99 FL (80-99) Mean Corpuscular Hemoglobin 32.6 PG (27.0-31.0) Mean Corpuscular Hemoglobin Concent 33.0 G/DL (32.0-36.0) Red Cell Distribution Width 13.6 % (11.6-14.8) Platelet Count 375 K/UL (150-450) Mean Platelet Volume 7.6 FL (6.5-10.1) Neutrophils (%) (Auto) 71.1 % (45.0-75.0) Lymphocytes (%) (Auto) 16.9 % (20.0-45.0) Monocytes (%) (Auto) 10.2 % (1.0-10.0) Eosinophils (%) (Auto) 0.3 % (0.0-3.0) Basophils (%) (Auto) 1.5 % (0.0-2.0) Sodium Level 136 MMOL/L (136-145) Potassium Level 5.2 MMOL/L (3.5-5.1) Chloride Level 102 MMOL/L (98-107) Carbon Dioxide Level 30 MMOL/L (21-32) Anion Gap 4 mmol/L (5-15) Blood Urea Nitrogen 29 mg/dL (7-18) Creatinine 1.1 MG/DL (0.55-1.30) Estimat Glomerular Filtration Rate 49.3 mL/min (>60) Glucose Level 115 MG/DL (74-106) Calcium Level 9.5 MG/DL (8.5-10.1) Magnesium Level 2.2 MG/DL (1.8-2.4) Total Bilirubin 0.4 MG/DL (0.2-1.0) Aspartate Amino Transf (AST/SGOT) 21 U/L (15-37) Alanine Aminotransferase (ALT/SGPT) 21 U/L (12-78) Alkaline Phosphatase 193 U/L (46-116) Total Protein 7.7 G/DL (6.4-8.2) Albumin 3.0 G/DL (3.4-5.0) Globulin 4.7 g/dL Albumin/Globulin Ratio 0.6 (1.0-2.7) Test 05/19/20 11:33 05/19/20 17:57 05/20/20 05:15 05/20/20 17:37 POC Whole Blood Glucose 120 MG/DL (74-106) 121 MG/DL (74-106) White Blood Count 6.7 K/UL (4.8-10.8) Red Blood Count 3.25 M/UL (4.20-5.40) Hemoglobin 10.3 G/DL (12.0-16.0) Hematocrit 32.6 % (37.0-47.0) Mean Corpuscular Volume 101 FL (80-99) Mean Corpuscular Hemoglobin 31.8 PG (27.0-31.0) Mean Corpuscular Hemoglobin Concent 31.7 G/DL (32.0-36.0) Red Cell Distribution Width 13.7 % (11.6-14.8) Platelet Count 383 K/UL (150-450) Mean Platelet Volume 7.1 FL (6.5-10.1) Neutrophils (%) (Auto) 74.9 % (45.0-75.0) Lymphocytes (%) (Auto) 14.0 % (20.0-45.0) Monocytes (%) (Auto) 9.5 % (1.0-10.0) Eosinophils (%) (Auto) 0.1 % (0.0-3.0) Basophils (%) (Auto) 1.5 % (0.0-2.0) Sodium Level 138 MMOL/L (136-145) Potassium Level 4.7 MMOL/L (3.5-5.1) Chloride Level 102 MMOL/L (98-107) Carbon Dioxide Level 29 MMOL/L (21-32) Anion Gap 8 mmol/L (5-15) Blood Urea Nitrogen 27 mg/dL (7-18) Creatinine 1.1 MG/DL (0.55-1.30) Estimat Glomerular Filtration Rate 49.3 mL/min (>60) Glucose Level 102 MG/DL (74-106) Calcium Level 9.3 MG/DL (8.5-10.1) Phosphorus Level 4.0 MG/DL (2.5-4.9) Magnesium Level 1.8 MG/DL (1.8-2.4) Total Bilirubin 0.5 MG/DL (0.2-1.0) Aspartate Amino Transf (AST/SGOT) 20 U/L (15-37) Alanine Aminotransferase (ALT/SGPT) 29 U/L (12-78) Alkaline Phosphatase 184 U/L (46-116) Total Protein 7.3 G/DL (6.4-8.2) Albumin 2.8 G/DL (3.4-5.0) Globulin 4.5 g/dL Albumin/Globulin Ratio 0.6 (1.0-2.7) Test 05/21/20 05:30 White Blood Count 5.9 K/UL (4.8-10.8) Red Blood Count 3.19 M/UL (4.20-5.40) Hemoglobin 10.3 G/DL (12.0-16.0) Hematocrit 32.0 % (37.0-47.0) Mean Corpuscular Volume 100 FL (80-99) Mean Corpuscular Hemoglobin 32.3 PG (27.0-31.0) Mean Corpuscular Hemoglobin Concent 32.2 G/DL (32.0-36.0) Red Cell Distribution Width 13.9 % (11.6-14.8) Platelet Count 393 K/UL (150-450) Mean Platelet Volume 7.0 FL (6.5-10.1) Neutrophils (%) (Auto) 71.4 % (45.0-75.0) Lymphocytes (%) (Auto) 18.7 % (20.0-45.0) Monocytes (%) (Auto) 8.2 % (1.0-10.0) Eosinophils (%) (Auto) 0.1 % (0.0-3.0) Basophils (%) (Auto) 1.6 % (0.0-2.0) Sodium Level 138 MMOL/L (136-145) Potassium Level 4.4 MMOL/L (3.5-5.1) Chloride Level 103 MMOL/L (98-107) Carbon Dioxide Level 29 MMOL/L (21-32) Anion Gap 6 mmol/L (5-15) Blood Urea Nitrogen 27 mg/dL (7-18) Creatinine 1.1 MG/DL (0.55-1.30) Estimat Glomerular Filtration Rate 49.3 mL/min (>60) Glucose Level 85 MG/DL (74-106) Calcium Level 8.9 MG/DL (8.5-10.1) Phosphorus Level 3.8 MG/DL (2.5-4.9) Magnesium Level 1.8 MG/DL (1.8-2.4) Total Bilirubin 0.5 MG/DL (0.2-1.0) Aspartate Amino Transf (AST/SGOT) 25 U/L (15-37) Alanine Aminotransferase (ALT/SGPT) 28 U/L (12-78) Alkaline Phosphatase 187 U/L (46-116) Total Protein 7.3 G/DL (6.4-8.2) Albumin 2.8 G/DL (3.4-5.0) Globulin 4.5 g/dL Albumin/Globulin Ratio 0.6 (1.0-2.7) Height (Feet): 5 Height (Inches): 3.00 Weight (Pounds): 139 Objective Physical Exam: Vitals: reviewed General: NAD HEENT: nc, at Neck: supple Chest: clear breath sounds bilaterally Cardiovascular: RRR, no s3, s4 Abdomen: soft, nontender, nd ++gtube, Kouch pouch ++ midline scar site is c/d/i Extremities: no cce, normal range of motion Neuro: alert and oriented Cecilio Grey MD May 21, 2020 06:27
[2020-05-21] MEDS: BuPROPion SR 100mg tab ORAL SCH (09:00)
[2020-05-21] MEDS: Citalopram Hydrobromide 10mg Tab ORAL SCH (09:00)
[2020-05-21 09:15] VITALS: BP 92/64
[2020-05-21] MEDS: HYDROcodone/Acetamin 5/325 tab ORAL PRN ×4 (09:42→23:36)
[2020-05-21 12:00] VITALS: BP 101/58
--- NOTE | 2020-05-21 12:20 | General Progress Note ---
Progress Note Progress Note AVSS Feeling better every day and eating better yesterday evening. Still unable to mobilize and ambulate independently Abdomen soft, gastrostomy and Kock pouch ileo catheters in place - gastrostomy is plugged continuously Urine 1700 Kock pouch ileo 465 labs all stable except albumin 2.8 Imp: Gradual improvement but unable to mobilize and ambulate independently yet Plan; Dietary evaluation /calorie count f/u labs off all IVs and TPN Hopefully can start RN supervised Kock pouch self-intubations in AM Lalo Meadows MD May 21, 2020 12:19
--- NOTE | 2020-05-21 15:15 | Infectious Diseases Prog Note ---
Assessment/Plan Assessment/Plan ASSESSMENT AND PLAN: 1. ? sepsis, leukocytosis, fevers, thrombocytopenia, ? cholecystitis, ? aspiration pna/hcap vs atelectasis (favor atelectasis) klebsiella and enterococcus abscess - s/p debridement sbo, malfunctioning Kock ileostomy - s/p surgery ileus, ? bowel obstruction fungemia risk - s/p vancomycin, ciprofloxacin, flagyl and micafungin - f/u urine/blood cultures negative - improving clinically, thrombocytopenia resolved - monitor labs, no sig fevers 2. The patient has a history of Kock pouch continent ileostomy. 3. History of ulcerative colitis. 4. History of multiple abdominal surgeries. 5. History of spine surgery. 6. History of parathyroid adenoma. 7. History of proctocolectomy. 8. History of laparotomy. 9. Anemia. 10. Thrombocytopenia. 11. Allergies to adhesive tape. 12. Social history is negative. 13. Family history is noncontributory. 14. MAR is noted. 15. Case was discussed with RN. 16. Continue treatment per Dr. Meadows and consultants. 17. I will follow. Subjective Constitutional: Denies: fever HEENT: Denies: congestion Respiratory: Denies: shortness of breath Cardiovascular: Denies: chest pain Gastrointestinal/Abdominal: Reports: other - no abdominal pain ; Denies: nausea , vomiting Genitourinary: Denies: dysuria, hematuria Neurologic: Denies: headache Psychiatric: Denies: depression Skin: Denies: rash Hematologic: Denies: bleeding Musculoskeletal: Denies: pain Allergies: Coded Allergies: ADHESIVE TAPE (Verified Adverse Reaction, Intermediate, Rash, 08/27/19) CLEAR TAPE Objective Last 24 Hour Vital Signs Date Time Temp Pulse Resp B/P (MAP) Pulse Ox O2 Delivery O2 Flow Rate FiO2 05/21/20 12:00 98.0 100 16 101/58 (72) 98 05/21/20 09:15 98.6 95 16 92/64 (73) 96 05/21/20 09:00 Room Air 05/21/20 00:00 98.6 98 19 98/61 (73) 96 05/20/20 21:00 Room Air 05/20/20 20:00 98.9 95 19 106/64 (78) 98 05/20/20 16:19 98.4 05/20/20 16:00 98.3 89 19 114/68 (83) 98 Height (Feet): 5 Height (Inches): 3.00 Weight (Pounds): 139 General Appearance: no acute distress HEENT: normocephalic, atraumatic, anicteric, mucous membranes moist Respiratory/Chest: lungs clear, normal breath sounds, no respiratory distress, no accessory muscle use Cardiovascular: normal rate, regular rhythm, no gallop/murmur, no JVD Abdomen: normal bowel sounds, soft, non tender, no organomegaly, non distended Genitourinary: other - no f Extremities: no cyanosis Skin: no rash 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 There is some persistent right perihilar atelectasis. The heart size is normal. Impression: Improved bilateral suprahilar interstitial infiltrates, over 2 days Abdominal US: Impression: Distended gallbladder with borderline wall thickening, but no gallstones. Significance uncertain. Mildly dilated common bile duct. May be age-related, downstream obstruction not completely excludable particularly in view of findings reported on recent CT scan. Correlate with liver function tests, consider MRCP for further evaluation if clinically indicated CT abdomen and pelvis - 04/27/20 - Impression: Dilated proximal small bowel loops, with another short segment of dilated mid small bowel, nondilated distal small bowel loops. Findings are concerning for small bowel obstruction. Given somewhat prominent mucosal enhancement, findings could also be due to enteritis. Trace ascites, possibly related to the above Postsurgical changes, as described. Note that the Busch catheter is deep within the reservoir but the reservoir is somewhat distended with material. Ectatic extrahepatic bile ducts. Suspect age-related is this is unchanged from the prior study. Correlate with liver function tests Nonspecific prominent retroperitoneal lymph nodes Findings discussed by phone with Dr. Meadows at the time of interpretation KUB - 05/08/20 - FINDINGS/IMPRESSION: Multiple, mildly prominent loops of colon which may correlate with postoperative ileus. No large volume free intraperitoneal air. Extensive suture line within the pelvis and right lower quadrant, correlate with surgical history. Midline cutaneous skin lu. The lung bases are clear. Degenerative changes of the spine. Chest x-ray - 05/14/20 - Procedure: XRAY Chest 1v Indication: Cough Technique: One view of the chest Comparison: 05/07/2020 Findings: There is small left pleural effusion. Previously demonstrated right perihilar atelectasis is no longer evident. No new infiltrates. The heart size is normal. There is a right arm PICC. Impression: New small left pleural effusion. Resolved right perihilar atelectasis. Otherwise little change since prior study of 7 days earlier Laboratory Tests Test 05/20/20 17:37 05/21/20 05:30 POC Whole Blood Glucose Pending White Blood Count 5.9 K/UL (4.8-10.8) Red Blood Count 3.19 M/UL (4.20-5.40) L Hemoglobin 10.3 G/DL (12.0-16.0) L Hematocrit 32.0 % (37.0-47.0) L Mean Corpuscular Volume 100 FL (80-99) H Mean Corpuscular Hemoglobin 32.3 PG (27.0-31.0) H Mean Corpuscular Hemoglobin Concent 32.2 G/DL (32.0-36.0) Red Cell Distribution Width 13.9 % (11.6-14.8) Platelet Count 393 K/UL (150-450) Mean Platelet Volume 7.0 FL (6.5-10.1) Neutrophils (%) (Auto) 71.4 % (45.0-75.0) Lymphocytes (%) (Auto) 18.7 % (20.0-45.0) L Monocytes (%) (Auto) 8.2 % (1.0-10.0) Eosinophils (%) (Auto) 0.1 % (0.0-3.0) Basophils (%) (Auto) 1.6 % (0.0-2.0) Sodium Level 138 MMOL/L (136-145) Potassium Level 4.4 MMOL/L (3.5-5.1) Chloride Level 103 MMOL/L (98-107) Carbon Dioxide Level 29 MMOL/L (21-32) Anion Gap 6 mmol/L (5-15) Blood Urea Nitrogen 27 mg/dL (7-18) H Creatinine 1.1 MG/DL (0.55-1.30) Estimat Glomerular Filtration Rate 49.3 mL/min (>60) Glucose Level 85 MG/DL (74-106) Calcium Level 8.9 MG/DL (8.5-10.1) Phosphorus Level 3.8 MG/DL (2.5-4.9) Magnesium Level 1.8 MG/DL (1.8-2.4) Total Bilirubin 0.5 MG/DL (0.2-1.0) Aspartate Amino Transf (AST/SGOT) 25 U/L (15-37) Alanine Aminotransferase (ALT/SGPT) 28 U/L (12-78) Alkaline Phosphatase 187 U/L (46-116) H Total Protein 7.3 G/DL (6.4-8.2) Albumin 2.8 G/DL (3.4-5.0) L Globulin 4.5 g/dL Albumin/Globulin Ratio 0.6 (1.0-2.7) L Current Medications Medications (Trade) Dose Ordered Sig/Jori Route PRN Reason Start Time Stop Time Status Last Admin Dose Admin Acetaminophen (Tylenol) 1,000 mg Q4H PRN GT temp>100.2 or headache 04/29/20 15:45 05/29/20 15:44 05/10/20 20:46 Acetaminophen/ Hydrocodone Bitart ([place] 5/325) 1 tab Q4H PRN ORAL pain 05/17/20 10:30 05/24/20 10:29 05/21/20 14:02 Alprazolam (Xanax) 0.5 mg Q4H PRN ORAL For Anxiety 05/20/20 07:54 05/27/20 07:53 Ascorbic Acid (Vitamin C) 500 mg NEEDED PRN ORAL Constipation 05/16/20 10:15 06/15/20 10:14 Bupropion HCl (Wellbutrin SR) 200 mg DAILY ORAL 05/19/20 09:00 06/18/20 08:59 05/21/20 09:00 Chlorhexidine Gluconate (Kathryn-Hex 2%) 1 applic DAILY@1999 TOPIC 04/27/20 20:00 07/26/20 19:59 05/20/20 20:42 Citalopram Hydrobromide (CeleXA) 20 mg DAILY ORAL 04/26/20 21:00 05/27/20 08:59 05/21/20 09:00 Dextrose (Dextrose 50%) 25 ml Q30M PRN IV Hypoglycemia 04/28/20 08:30 07/27/20 08:29 Dextrose (Dextrose 50%) 50 ml Q30M PRN IV Hypoglycemia 04/28/20 08:30 07/27/20 08:29 Folic Acid (Folate) 1 mg DAILY ORAL 04/27/20 10:30 05/27/20 10:29 05/21/20 09:00 Ketorolac Tromethamine (Toradol 30mg) 15 mg Q6H PRN IV Severe Breakthru Pain (>7) 05/19/20 14:15 05/24/20 14:14 05/20/20 19:55 Lidocaine HCl (Xylocaine Jelly 2%) 1 applic Q2H PRN TOPIC For Pain 05/17/20 10:00 08/15/20 09:59 05/17/20 12:46 Metoclopramide HCl (Reglan) 10 mg DAILYPRN PRN IVP Nausea & Vomiting 05/14/20 10:45 06/13/20 10:44 05/17/20 04:31 Miconazole Nitrate (Monistat) 1 applic BEDTIME VAGIN 05/11/20 21:00 08/09/20 20:59 05/20/20 20:42 Ondansetron HCl (Zofran) 4 mg Q4H PRN IVP Nausea & Vomiting 04/29/20 15:45 05/29/20 15:44 05/21/20 13:11 Patient Own Medication (Patient's Own Med) 1 ea QHS ORAL 05/13/20 21:00 06/12/20 20:59 05/20/20 20:42 Trazodone HCl (Desyrel) 300 mg BEDTIME PRN ORAL Insomnia 05/12/20 15:00 05/27/20 20:59 05/20/20 22:07 Osmin Bermudez MD May 21, 2020 15:15
[2020-05-21 15:54] VITALS: BP 101/59
--- NOTE | 2020-05-21 17:02 | Pulmonology Progress Note ---
Subjective Interval Events: None new Constitutional: Denies: fever HEENT: Repors: no symptoms Respiratory: Reports: no symptoms Cardiovascular: Reports: no symptoms Gastrointestinal/Abdominal: Reports: other - no abdominal pain ; Denies: nausea , vomiting Psychiatric: Denies: depression Skin: Denies: rash Musculoskeletal: Denies: pain Allergies: Coded Allergies: ADHESIVE TAPE (Verified Adverse Reaction, Intermediate, Rash, 08/27/19) CLEAR TAPE Objective Last 24 Hour Vital Signs Date Time Temp Pulse Resp B/P (MAP) Pulse Ox O2 Delivery O2 Flow Rate FiO2 05/21/20 15:54 98.6 90 16 101/59 (73) 97 05/21/20 12:00 98.0 100 16 101/58 (72) 98 05/21/20 09:15 98.6 95 16 92/64 (73) 96 05/21/20 09:00 Room Air 05/21/20 00:00 98.6 98 19 98/61 (73) 96 05/20/20 21:00 Room Air 05/20/20 20:00 98.9 95 19 106/64 (78) 98 Intake and Output 05/20/20 05/21/20 19:00 07:00 Intake Total 928 ml 120 ml Output Total 1795 ml 370 ml Balance -867 ml -250 ml Intake Oral 928 ml 120 ml Output Urine Total 1450 ml 250 ml Other 345 ml 120 ml # Voids 1 General Appearance: no acute distress HEENT: normocephalic Respiratory: chest wall non-tender, lungs clear Cardiovascular: normal peripheral pulses Abdomen: normal bowel sounds Laboratory Tests 05/20/20 17:37: POC Whole Blood Glucose [Pending] 05/21/20 05:30: White Blood Count 5.9, Red Blood Count 3.19L, Hemoglobin 10.3L, Hematocrit 32.0L , Mean Corpuscular Volume 100H, Mean Corpuscular Hemoglobin 32.3H, Mean Corpuscular Hemoglobin Concent 32.2, Red Cell Distribution Width 13.9, Platelet Count 393, Mean Platelet Volume 7.0, Neutrophils (%) (Auto) 71.4, Lymphocytes (% ) (Auto) 18.7L, Monocytes (%) (Auto) 8.2, Eosinophils (%) (Auto) 0.1, Basophils (%) (Auto) 1.6, Sodium Level 138, Potassium Level 4.4, Chloride Level 103, Carbon Dioxide Level 29, Anion Gap 6, Blood Urea Nitrogen 27H, Creatinine 1.1, Estimat Glomerular Filtration Rate 49.3, Glucose Level 85, Calcium Level 8.9, Phosphorus Level 3.8, Magnesium Level 1.8, Total Bilirubin 0.5, Aspartate Amino Transf (AST/SGOT) 25, Alanine Aminotransferase (ALT/SGPT) 28, Alkaline Phosphatase 187H, Total Protein 7.3, Albumin 2.8L, Globulin 4.5, Albumin/ Globulin Ratio 0.6L Current Medications Medications (Trade) Dose Ordered Sig/Jori Route PRN Reason Start Time Stop Time Status Last Admin Dose Admin Acetaminophen (Tylenol) 1,000 mg Q4H PRN GT temp>100.2 or headache 04/29/20 15:45 05/29/20 15:44 05/10/20 20:46 Acetaminophen/ Hydrocodone Bitart ([place] 5/325) 1 tab Q4H PRN ORAL pain 05/17/20 10:30 05/24/20 10:29 05/21/20 14:02 Alprazolam (Xanax) 0.5 mg Q4H PRN ORAL For Anxiety 05/20/20 07:54 05/27/20 07:53 Ascorbic Acid (Vitamin C) 500 mg NEEDED PRN ORAL Constipation 05/16/20 10:15 06/15/20 10:14 Bupropion HCl (Wellbutrin SR) 200 mg DAILY ORAL 05/19/20 09:00 06/18/20 08:59 05/21/20 09:00 Chlorhexidine Gluconate (Kathryn-Hex 2%) 1 applic DAILY@1999 TOPIC 04/27/20 20:00 07/26/20 19:59 05/20/20 20:42 Citalopram Hydrobromide (CeleXA) 20 mg DAILY ORAL 04/26/20 21:00 05/27/20 08:59 05/21/20 09:00 Dextrose (Dextrose 50%) 25 ml Q30M PRN IV Hypoglycemia 04/28/20 08:30 07/27/20 08:29 Dextrose (Dextrose 50%) 50 ml Q30M PRN IV Hypoglycemia 04/28/20 08:30 07/27/20 08:29 Folic Acid (Folate) 1 mg DAILY ORAL 04/27/20 10:30 05/27/20 10:29 05/21/20 09:00 Ketorolac Tromethamine (Toradol 30mg) 15 mg Q6H PRN IV Severe Breakthru Pain (>7) 05/19/20 14:15 05/24/20 14:14 05/20/20 19:55 Lidocaine HCl (Xylocaine Jelly 2%) 1 applic Q2H PRN TOPIC For Pain 05/17/20 10:00 08/15/20 09:59 05/17/20 12:46 Metoclopramide HCl (Reglan) 10 mg DAILYPRN PRN IVP Nausea & Vomiting 05/14/20 10:45 06/13/20 10:44 05/17/20 04:31 Miconazole Nitrate (Monistat) 1 applic BEDTIME VAGIN 05/11/20 21:00 08/09/20 20:59 05/20/20 20:42 Ondansetron HCl (Zofran) 4 mg Q4H PRN IVP Nausea & Vomiting 04/29/20 15:45 05/29/20 15:44 05/21/20 13:11 Patient Own Medication (Patient's Own Med) 1 ea QHS ORAL 05/13/20 21:00 06/12/20 20:59 05/20/20 20:42 Trazodone HCl (Desyrel) 300 mg BEDTIME PRN ORAL Insomnia 05/12/20 15:00 05/27/20 20:59 05/20/20 22:07 Assessment/Plan Assessment/Plan IMPRESSION: 1. Atelectasis, right lung. 2. Postnasal drip/allergic rhinitis. 3. Status post laparotomy and lysis of adhesions. 4. Chronic pain. 5. Ulcerative colitis. DISCUSSION: Respiratory status is stable Continue present care No fever last 24 hours Zenon Montoya Omar Syed MD May 21, 2020 17:02
[2020-05-21 20:00] VITALS: BP 114/63
[2020-05-21] MEDS: Dyna-Hex 2% Top Sol 2oz TOPIC SCH (21:08)
[2020-05-21] MEDS: Miconazole Vag Cr 45gm Tube (100mg per applicator) VAGIN SCH (21:08)
[2020-05-21] MEDS: MYRBETRIQ 50 MG ORAL SCH (21:08)
[2020-05-21] MEDS ORDERED: NS 275ml ONE (21:55)
[2020-05-21] MEDS ORDERED: NS Irrig 1000ml ONE (21:55)
[2020-05-21] MEDS ORDERED: Tubing IV Secondary IV ONE (21:55)
--- NOTE | 2020-05-21 23:58 | Psych Consult Progress Note ---
Psychiatry Progress Note Psychiatry Progress Note Subjective the pt is doing better less anxious Medications Current Medications Medications (Trade) Dose Ordered Sig/Jori Route PRN Reason Start Time Stop Time Status Last Admin Dose Admin Acetaminophen (Tylenol) 1,000 mg Q4H PRN GT temp>100.2 or headache 04/29/20 15:45 05/29/20 15:44 05/10/20 20:46 Acetaminophen/ Hydrocodone Bitart ([place] 5/325) 1 tab Q4H PRN ORAL pain 05/17/20 10:30 05/24/20 10:29 05/21/20 23:36 Alprazolam (Xanax) 0.5 mg Q4H PRN ORAL For Anxiety 05/20/20 07:54 05/27/20 07:53 Ascorbic Acid (Vitamin C) 500 mg NEEDED PRN ORAL Constipation 05/16/20 10:15 06/15/20 10:14 Bupropion HCl (Wellbutrin SR) 200 mg DAILY ORAL 05/19/20 09:00 06/18/20 08:59 05/21/20 09:00 Chlorhexidine Gluconate (Kathryn-Hex 2%) 1 applic DAILY@2000 TOPIC 04/27/20 20:00 07/26/20 19:59 05/21/20 21:08 Citalopram Hydrobromide (CeleXA) 20 mg DAILY ORAL 04/26/20 21:00 05/27/20 08:59 05/21/20 09:00 Dextrose (Dextrose 50%) 25 ml Q30M PRN IV Hypoglycemia 04/28/20 08:30 07/27/20 08:29 Dextrose (Dextrose 50%) 50 ml Q30M PRN IV Hypoglycemia 04/28/20 08:30 07/27/20 08:29 Folic Acid (Folate) 1 mg DAILY ORAL 04/27/20 10:30 05/27/20 10:29 05/21/20 09:00 Ketorolac Tromethamine (Toradol 30mg) 15 mg Q6H PRN IV Severe Breakthru Pain (>7) 05/19/20 14:15 05/24/20 14:14 05/20/20 19:55 Lidocaine HCl (Xylocaine Jelly 2%) 1 applic Q2H PRN TOPIC For Pain 05/17/20 10:00 08/15/20 09:59 05/17/20 12:46 Metoclopramide HCl (Reglan) 10 mg DAILYPRN PRN IVP Nausea & Vomiting 05/14/20 10:45 06/13/20 10:44 05/17/20 04:31 Miconazole Nitrate (Monistat) 1 applic BEDTIME VAGIN 05/11/20 21:00 08/09/20 20:59 05/21/20 21:08 Ondansetron HCl (Zofran) 4 mg Q4H PRN IVP Nausea & Vomiting 04/29/20 15:45 05/29/20 15:44 05/21/20 13:11 Patient Own Medication (Patient's Own Med) 1 ea QHS ORAL 05/13/20 21:00 06/12/20 20:59 05/21/20 21:08 Trazodone HCl (Desyrel) 300 mg BEDTIME PRN ORAL Insomnia 05/12/20 15:00 05/27/20 20:59 05/20/20 22:07 Neurological/Psychiatric: Reports: anxiety, depressed, emotional problems Allergies: Coded Allergies: ADHESIVE TAPE (Verified Adverse Reaction, Intermediate, Rash, 08/27/19) CLEAR TAPE Objective Data Height (Feet): 5 Height (Inches): 3.00 Weight (Pounds): 139 Additional Comments: Appearance: disheveled Behavior Mannerisms: good eye contact Affect: constricted Mood: depressed, irritable Speech: clear Thought Process: no abnormalities Suicidal Ideation: not present Assessment/Plan Assessment/Plan Problem List: (1) Depression Assessment & Plan: anxiety do welburtrin xanax celexa seroquel provided ro/st ICD Codes: F32.9 - Major depressive disorder, single episode, unspecified SNOMED: [id number] Antonio Coates MD May 21, 2020 23:58
[2020-05-22] VITALS: BP 110/57
[2020-05-22] MEDS ORDERED: ALPRAZolam 0.5mg tab ORAL PRN (00:30)
[2020-05-22] MEDS: TraZODone 100mg tab ORAL PRN (00:50)
[2020-05-22 04:00] VITALS: BP 114/61
[2020-05-22] MEDS: HYDROcodone/Acetamin 5/325 tab ORAL PRN ×5 (05:15→23:54)
--- NOTE | 2020-05-22 05:51 | Pulmonology Progress Note ---
Subjective Interval Events: None new Constitutional: Denies: fever HEENT: Repors: no symptoms Respiratory: Reports: no symptoms Cardiovascular: Reports: no symptoms Gastrointestinal/Abdominal: Reports: other - no abdominal pain ; Denies: nausea , vomiting Psychiatric: Denies: depression Skin: Denies: rash Musculoskeletal: Denies: pain Allergies: Coded Allergies: ADHESIVE TAPE (Verified Adverse Reaction, Intermediate, Rash, 08/27/19) CLEAR TAPE Objective Last 24 Hour Vital Signs Date Time Temp Pulse Resp B/P (MAP) Pulse Ox O2 Delivery O2 Flow Rate FiO2 05/22/20 04:00 98.2 92 18 114/61 (78) 96 05/22/20 00:00 98.6 80 18 110/57 (74) 98 05/21/20 21:00 Room Air 05/21/20 20:00 98.9 85 18 114/63 (80) 96 05/21/20 15:54 98.6 90 16 101/59 (73) 97 05/21/20 12:00 98.0 100 16 101/58 (72) 98 05/21/20 09:15 98.6 95 16 92/64 (73) 96 05/21/20 09:00 Room Air Intake and Output 05/21/20 05/22/20 18:59 06:59 Intake Total 808 ml Output Total 1745 ml Balance -937 ml Intake Oral 808 ml Output Urine Total 1250 ml Other 495 ml # Voids 4 General Appearance: no acute distress HEENT: normocephalic Respiratory: chest wall non-tender, lungs clear Cardiovascular: normal peripheral pulses Abdomen: normal bowel sounds Laboratory Tests 05/22/20 04:50: White Blood Count [Pending], Red Blood Count [Pending], Hemoglobin [Pending], Hematocrit [Pending], Mean Corpuscular Volume [Pending], Mean Corpuscular Hemoglobin [Pending], Mean Corpuscular Hemoglobin Concent [Pending], Red Cell Distribution Width [Pending], Platelet Count [Pending], Mean Platelet Volume [ Pending], Neutrophils (%) (Auto) [Pending], Lymphocytes (%) (Auto) [Pending], Monocytes (%) (Auto) [Pending], Eosinophils (%) (Auto) [Pending], Basophils (%) (Auto) [Pending], Sodium Level [Pending], Potassium Level [Pending], Chloride Level [Pending], Carbon Dioxide Level [Pending], Blood Urea Nitrogen [Pending], Creatinine [Pending], Estimat Glomerular Filtration Rate [Pending], Glucose Level [Pending], Calcium Level [Pending], Phosphorus Level [Pending], Magnesium Level [Pending], Total Bilirubin [Pending], Aspartate Amino Transf (AST/SGOT) [ Pending], Alanine Aminotransferase (ALT/SGPT) [Pending], Alkaline Phosphatase [ Pending], Total Protein [Pending], Albumin [Pending], Globulin [Pending] Current Medications Medications (Trade) Dose Ordered Sig/Jori Route PRN Reason Start Time Stop Time Status Last Admin Dose Admin Acetaminophen (Tylenol) 1,000 mg Q4H PRN GT temp>100.2 or headache 04/29/20 15:45 05/29/20 15:44 05/10/20 20:46 Acetaminophen/ Hydrocodone Bitart ([place] 5/325) 1 tab Q4H PRN ORAL pain 05/17/20 10:30 05/24/20 10:29 05/22/20 05:15 Alprazolam (Xanax) 0.5 mg DAILY PRN ORAL For Anxiety 05/22/20 00:30 05/29/20 00:29 Ascorbic Acid (Vitamin C) 500 mg NEEDED PRN ORAL Constipation 05/16/20 10:15 06/15/20 10:14 Bupropion HCl (Wellbutrin SR) 200 mg DAILY ORAL 05/19/20 09:00 06/18/20 08:59 05/21/20 09:00 Chlorhexidine Gluconate (Kathryn-Hex 2%) 1 applic DAILY@1999 TOPIC 04/27/20 20:00 07/26/20 19:59 05/21/20 21:08 Citalopram Hydrobromide (CeleXA) 40 mg DAILY ORAL 05/22/20 09:00 06/21/20 08:59 Dextrose (Dextrose 50%) 25 ml Q30M PRN IV Hypoglycemia 04/28/20 08:30 07/27/20 08:29 Dextrose (Dextrose 50%) 50 ml Q30M PRN IV Hypoglycemia 04/28/20 08:30 07/27/20 08:29 Folic Acid (Folate) 1 mg DAILY ORAL 04/27/20 10:30 05/27/20 10:29 05/21/20 09:00 Ketorolac Tromethamine (Toradol 30mg) 15 mg Q6H PRN IV Severe Breakthru Pain (>7) 05/19/20 14:15 05/24/20 14:14 05/20/20 19:55 Lidocaine HCl (Xylocaine Jelly 2%) 1 applic Q2H PRN TOPIC For Pain 05/17/20 10:00 08/15/20 09:59 05/17/20 12:46 Metoclopramide HCl (Reglan) 10 mg DAILYPRN PRN IVP Nausea & Vomiting 05/14/20 10:45 06/13/20 10:44 05/17/20 04:31 Miconazole Nitrate (Monistat) 1 applic BEDTIME VAGIN 05/11/20 21:00 08/09/20 20:59 05/21/20 21:08 Ondansetron HCl (Zofran) 4 mg Q4H PRN IVP Nausea & Vomiting 04/29/20 15:45 05/29/20 15:44 05/21/20 13:11 Patient Own Medication (Patient's Own Med) 1 ea QHS ORAL 05/13/20 21:00 06/12/20 20:59 05/21/20 21:08 Trazodone HCl (Desyrel) 300 mg BEDTIME PRN ORAL Insomnia 05/12/20 15:00 05/27/20 20:59 05/22/20 00:50 Assessment/Plan Assessment/Plan IMPRESSION: 1. Atelectasis, right lung. 2. Postnasal drip/allergic rhinitis. 3. Status post laparotomy and lysis of adhesions. 4. Chronic pain. 5. Ulcerative colitis. DISCUSSION: Respiratory status is stable Continue present care No fever last 24 hours Zenon Montoya Omar Syed MD May 22, 2020 05:50
[2020-05-22 05:54] LABS: BASOPHILS % (AUTO) 1.2 % (0.0-2.0); EOSINOPHILS % (AUTO) 0.2 % (0.0-3.0); HEMATOCRIT 32.7 % (37.0-47.0); HEMOGLOBIN 10.4 G/DL (12.0-16.0); LYMPHOCYTES % (AUTO) 27.9 % (20.0-45.0); MEAN CORPUSCULAR VOLUME 101 FL (80-99); MONOCYTES % (AUTO) 9.3 % (1.0-10.0); NEUTROPHILS % (AUTO) 61.4 % (45.0-75.0); PLATELET COUNT 392 K/UL (150-450); RED BLOOD COUNT 3.25 M/UL (4.20-5.40); RED CELL DISTRIBUTION WIDTH 13.5 % (11.6-14.8); WHITE BLOOD COUNT 4.9 K/UL (4.8-10.8)
[2020-05-22 05:59] LABS: ALANINE AMINOTRANSFERASE 24 U/L (12-78); ALBUMIN 3.1 G/DL (3.4-5.0); ALBUMIN/GLOBULIN RATIO 0.7 (1.0-2.7); ALKALINE PHOSPHATASE 185 U/L (46-116); ANION GAP 4 mmol/L (5-15); ASPARTATE AMINO TRANSFERASE 22 U/L (15-37); BILIRUBIN,TOTAL 0.5 MG/DL (0.2-1.0); BLOOD UREA NITROGEN 24 mg/dL (7-18); CALCIUM 9.3 MG/DL (8.5-10.1); CARBON DIOXIDE 31 MMOL/L (21-32); CHLORIDE 103 MMOL/L (98-107); CREATININE 1.1 MG/DL (0.55-1.30); PHOSPHORUS 3.5 MG/DL (2.5-4.9); POTASSIUM 3.9 MMOL/L (3.5-5.1); SODIUM 137 MMOL/L (136-145)
--- NOTE | 2020-05-22 06:28 | Hematology/Onc Progress Note ---
Assessment/Plan Assessment/Plan ASSESSMENT AND PLAN: # SEVERE Thrombocytopenia that is severe, on admission, plt was wnl and now dropped to 8K The patient comes in with high-grade bowel obstruction and malfunction Kock pouch continent ileostomy. The patient is status post surgery including release of the bowel obstruction. The patient was noted to have pus in small intra-abdominal abscess. It was growing out Klebsiella pneumoniae and Enterococcus. The patient has a low platele count and could be secondary to cefepime, which the patient is on. --> cefepime has been stopped, likely culprits --> as per ID antibiotics, vancomycin, Cipro, and Flagyl. --> dic panel has been ordered --> peripheral smear has been ordered as well --> hapto neg and fibrinogen 738 --> hold off steroids --> no heparin or lovenox administered recently --> duplex lower ext ordered-->neg for dvt --> transfuse 2 units plt 05/07 --> plt trend 8k-->6k->34-->73->46->60-->74-->136-->163-->293->363->375-->383 --> HIT antbody test ordered-->neg --> cr is wnl, less likely aHUS, also no schistocytes on smear noted --> also less likely iTP but is in differential ==>> consider bone marrow biopsy if labs not better # Anemia likely due to hemoldilution --> likely hemodilutional and chronic disease --> hgb trend 9.6-->9.4-->11.2-->10.3 # The patient has a history of Kock pouch continent ileostomy. # History of ulcerative colitis. # History of multiple abdominal surgeries. # History of spine surgery. # History of parathyroid adenoma. # History of proctocolectomy. # History of laparotomy. The timing of this note does not necessarily reflect the time of the patient was seen. Greatly appreciate consultation. Subjective Constitutional: Denies: no symptoms, chills, fever, malaise, weakness, other HEENT: Denies: no symptoms, eye pain, blurred vision, tearing, double vision, ear pain, ear discharge, nose pain, nose congestion, throat pain, throat swelling, mouth pain, mouth swelling, other Cardiovascular: Denies: no symptoms, chest pain, edema, irregular heart rate, lightheadedness, palpitations, syncope, other Respiratory: Denies: no symptoms, cough, shortness of breath, SOB with excertion, SOB at rest, sputum, wheezing, other Gastrointestinal/Abdominal: Denies: no symptoms, abdomen distended, abdominal pain, black stools, tarry stools, blood in stool, constipated, diarrhea, difficulty swallowing, nausea, poor appetite, poor fluid intake, rectal bleeding , vomiting, other Genitourinary: Denies: no symptoms, burning, discharge, frequency, flank pain, hematuria, incontinence, pain, urgency, other Neurologic/Psychiatric: Denies: no symptoms, anxiety, depressed, emotional problems, headache, numbness, paresthesia, pre-existing deficit, seizure, tingling, tremors, weakness, other Endocrine: Denies: no symptoms, excessive sweating, flushing, intolerance to cold, intolerance to heat, increased hunger, increased thirst, increased urine, unexplained weight gain, unexplained weight loss, other Allergies: Coded Allergies: ADHESIVE TAPE (Verified Adverse Reaction, Intermediate, Rash, 08/27/19) CLEAR TAPE Subjective 05/08 gtube connected, plts 6k, ordered for transfusion, consider ahus as well, will get hit ab test 05/10 plt is 73, no bleeding, feelingbetter, holding off transfusion 05/11 labs are noted, no bleeding, plt 46k, remains on antibiotics, may consider biopsy tomorrow if labs do not improve 05/12 plt is better, gtube is clamped, no bleeding, no bleeding 05/13 platelets have briskly improved, dw pt and will hold off marrow 05/14 awake and alert, new small pleural effusion, no sob 05/15 meds noted, no bleeding, dw rn, no night sweats, still with pain abdominal 05/17 meds reviewed, no bleeding, dw rn, no major changes, plt 293 05/18 labs noted, no bleeding, irish rn, no night sweats 05/19 labs are reviewed, plt 375, no bleeding, meds noted 05/20 meds noted, no bleeding, no chills, plt better 723 no bleeding no chills, no fc, hgb 10.3, no hemolysis 05/22 gtube is clamped, no night sweats, meds reviewed, no major changes Objective Objective Current Medications Medications (Trade) Dose Ordered Sig/Jori Route PRN Reason Start Time Stop Time Status Last Admin Dose Admin Acetaminophen (Tylenol) 1,000 mg Q4H PRN GT temp>100.2 or headache 04/29/20 15:45 05/29/20 15:44 05/10/20 20:46 Acetaminophen/ Hydrocodone Bitart ([place] 5/325) 1 tab Q4H PRN ORAL pain 05/17/20 10:30 05/24/20 10:29 05/22/20 05:15 Alprazolam (Xanax) 0.5 mg DAILY PRN ORAL For Anxiety 05/22/20 00:30 05/29/20 00:29 Ascorbic Acid (Vitamin C) 500 mg NEEDED PRN ORAL Constipation 05/16/20 10:15 06/15/20 10:14 Bupropion HCl (Wellbutrin SR) 200 mg DAILY ORAL 05/19/20 09:00 06/18/20 08:59 05/21/20 09:00 Chlorhexidine Gluconate (Kathryn-Hex 2%) 1 applic DAILY@2000 TOPIC 04/27/20 20:00 07/26/20 19:59 05/21/20 21:08 Citalopram Hydrobromide (CeleXA) 40 mg DAILY ORAL 05/22/20 09:00 06/21/20 08:59 Dextrose (Dextrose 50%) 25 ml Q30M PRN IV Hypoglycemia 04/28/20 08:30 07/27/20 08:29 Dextrose (Dextrose 50%) 50 ml Q30M PRN IV Hypoglycemia 04/28/20 08:30 07/27/20 08:29 Folic Acid (Folate) 1 mg DAILY ORAL 04/27/20 10:30 05/27/20 10:29 05/21/20 09:00 Ketorolac Tromethamine (Toradol 30mg) 15 mg Q6H PRN IV Severe Breakthru Pain (>7) 05/19/20 14:15 05/24/20 14:14 05/20/20 19:55 Lidocaine HCl (Xylocaine Jelly 2%) 1 applic Q2H PRN TOPIC For Pain 05/17/20 10:00 08/15/20 09:59 05/17/20 12:46 Metoclopramide HCl (Reglan) 10 mg DAILYPRN PRN IVP Nausea & Vomiting 05/14/20 10:45 06/13/20 10:44 05/17/20 04:31 Miconazole Nitrate (Monistat) 1 applic BEDTIME VAGIN 05/11/20 21:00 08/09/20 20:59 05/21/20 21:08 Ondansetron HCl (Zofran) 4 mg Q4H PRN IVP Nausea & Vomiting 04/29/20 15:45 05/29/20 15:44 05/21/20 13:11 Patient Own Medication (Patient's Own Med) 1 ea QHS ORAL 05/13/20 21:00 06/12/20 20:59 05/21/20 21:08 Trazodone HCl (Desyrel) 300 mg BEDTIME PRN ORAL Insomnia 05/12/20 15:00 05/27/20 20:59 05/22/20 00:50 Last 24 Hour Vital Signs Date Time Temp Pulse Resp B/P (MAP) Pulse Ox O2 Delivery O2 Flow Rate FiO2 05/22/20 04:00 98.2 92 18 114/61 (78) 96 05/22/20 00:00 98.6 80 18 110/57 (74) 98 05/21/20 21:00 Room Air 05/21/20 20:00 98.9 85 18 114/63 (80) 96 05/21/20 15:54 98.6 90 16 101/59 (73) 97 05/21/20 12:00 98.0 100 16 101/58 (72) 98 05/21/20 09:15 98.6 95 16 92/64 (73) 96 05/21/20 09:00 Room Air 05/21/20 00:00 98.6 98 19 98/61 (73) 96 05/20/20 21:00 Room Air 05/20/20 20:00 98.9 95 19 106/64 (78) 98 05/20/20 16:19 98.4 05/20/20 16:00 98.3 89 19 114/68 (83) 98 05/20/20 12:00 98.4 90 18 117/57 (77) 98 05/20/20 09:00 Room Air 05/20/20 08:00 99.3 85 20 91/60 (70) 97 Intake and Output 05/21/20 05/22/20 19:00 07:00 Intake Total 808 ml 240 ml Output Total 1745 ml 920 ml Balance -937 ml -680 ml Intake Oral 808 ml 240 ml Output Urine Total 1250 ml 800 ml Other 495 ml 120 ml # Voids 4 3 Labs Test 05/19/20 11:33 05/19/20 17:57 05/20/20 05:15 05/20/20 17:37 POC Whole Blood Glucose 120 MG/DL (74-106) 121 MG/DL (74-106) White Blood Count 6.7 K/UL (4.8-10.8) Red Blood Count 3.25 M/UL (4.20-5.40) Hemoglobin 10.3 G/DL (12.0-16.0) Hematocrit 32.6 % (37.0-47.0) Mean Corpuscular Volume 101 FL (80-99) Mean Corpuscular Hemoglobin 31.8 PG (27.0-31.0) Mean Corpuscular Hemoglobin Concent 31.7 G/DL (32.0-36.0) Red Cell Distribution Width 13.7 % (11.6-14.8) Platelet Count 383 K/UL (150-450) Mean Platelet Volume 7.1 FL (6.5-10.1) Neutrophils (%) (Auto) 74.9 % (45.0-75.0) Lymphocytes (%) (Auto) 14.0 % (20.0-45.0) Monocytes (%) (Auto) 9.5 % (1.0-10.0) Eosinophils (%) (Auto) 0.1 % (0.0-3.0) Basophils (%) (Auto) 1.5 % (0.0-2.0) Sodium Level 138 MMOL/L (136-145) Potassium Level 4.7 MMOL/L (3.5-5.1) Chloride Level 102 MMOL/L (98-107) Carbon Dioxide Level 29 MMOL/L (21-32) Anion Gap 8 mmol/L (5-15) Blood Urea Nitrogen 27 mg/dL (7-18) Creatinine 1.1 MG/DL (0.55-1.30) Estimat Glomerular Filtration Rate 49.3 mL/min (>60) Glucose Level 102 MG/DL (74-106) Calcium Level 9.3 MG/DL (8.5-10.1) Phosphorus Level 4.0 MG/DL (2.5-4.9) Magnesium Level 1.8 MG/DL (1.8-2.4) Total Bilirubin 0.5 MG/DL (0.2-1.0) Aspartate Amino Transf (AST/SGOT) 20 U/L (15-37) Alanine Aminotransferase (ALT/SGPT) 29 U/L (12-78) Alkaline Phosphatase 184 U/L (46-116) Total Protein 7.3 G/DL (6.4-8.2) Albumin 2.8 G/DL (3.4-5.0) Globulin 4.5 g/dL Albumin/Globulin Ratio 0.6 (1.0-2.7) Test 05/21/20 05:30 05/22/20 04:50 White Blood Count 5.9 K/UL (4.8-10.8) 4.9 K/UL (4.8-10.8) Red Blood Count 3.19 M/UL (4.20-5.40) 3.25 M/UL (4.20-5.40) Hemoglobin 10.3 G/DL (12.0-16.0) 10.4 G/DL (12.0-16.0) Hematocrit 32.0 % (37.0-47.0) 32.7 % (37.0-47.0) Mean Corpuscular Volume 100 FL (80-99) 101 FL (80-99) Mean Corpuscular Hemoglobin 32.3 PG (27.0-31.0) 32.0 PG (27.0-31.0) Mean Corpuscular Hemoglobin Concent 32.2 G/DL (32.0-36.0) 31.8 G/DL (32.0-36.0) Red Cell Distribution Width 13.9 % (11.6-14.8) 13.5 % (11.6-14.8) Platelet Count 393 K/UL (150-450) 392 K/UL (150-450) Mean Platelet Volume 7.0 FL (6.5-10.1) 6.8 FL (6.5-10.1) Neutrophils (%) (Auto) 71.4 % (45.0-75.0) 61.4 % (45.0-75.0) Lymphocytes (%) (Auto) 18.7 % (20.0-45.0) 27.9 % (20.0-45.0) Monocytes (%) (Auto) 8.2 % (1.0-10.0) 9.3 % (1.0-10.0) Eosinophils (%) (Auto) 0.1 % (0.0-3.0) 0.2 % (0.0-3.0) Basophils (%) (Auto) 1.6 % (0.0-2.0) 1.2 % (0.0-2.0) Sodium Level 138 MMOL/L (136-145) 137 MMOL/L (136-145) Potassium Level 4.4 MMOL/L (3.5-5.1) 3.9 MMOL/L (3.5-5.1) Chloride Level 103 MMOL/L (98-107) 103 MMOL/L (98-107) Carbon Dioxide Level 29 MMOL/L (21-32) 31 MMOL/L (21-32) Anion Gap 6 mmol/L (5-15) 4 mmol/L (5-15) Blood Urea Nitrogen 27 mg/dL (7-18) 24 mg/dL (7-18) Creatinine 1.1 MG/DL (0.55-1.30) 1.1 MG/DL (0.55-1.30) Estimat Glomerular Filtration Rate 49.3 mL/min (>60) 49.3 mL/min (>60) Glucose Level 85 MG/DL (74-106) 77 MG/DL (74-106) Calcium Level 8.9 MG/DL (8.5-10.1) 9.3 MG/DL (8.5-10.1) Phosphorus Level 3.8 MG/DL (2.5-4.9) 3.5 MG/DL (2.5-4.9) Magnesium Level 1.8 MG/DL (1.8-2.4) 1.7 MG/DL (1.8-2.4) Total Bilirubin 0.5 MG/DL (0.2-1.0) 0.5 MG/DL (0.2-1.0) Aspartate Amino Transf (AST/SGOT) 25 U/L (15-37) 22 U/L (15-37) Alanine Aminotransferase (ALT/SGPT) 28 U/L (12-78) 24 U/L (12-78) Alkaline Phosphatase 187 U/L (46-116) 185 U/L (46-116) Total Protein 7.3 G/DL (6.4-8.2) 7.5 G/DL (6.4-8.2) Albumin 2.8 G/DL (3.4-5.0) 3.1 G/DL (3.4-5.0) Globulin 4.5 g/dL 4.4 g/dL Albumin/Globulin Ratio 0.6 (1.0-2.7) 0.7 (1.0-2.7) Height (Feet): 5 Height (Inches): 3.00 Weight (Pounds): 139 Objective Physical Exam: Vitals: reviewed General: NAD HEENT: nc, at Neck: supple Chest: clear breath sounds bilaterally Cardiovascular: RRR, no s3, s4 Abdomen: soft, nontender, nd ++gtube, Kouch pouch ++ midline scar site is c/d/i Extremities: no cce, normal range of motion Neuro: alert and oriented Cecilio Grey MD May 22, 2020 06:27
[2020-05-22 08:00] VITALS: BP 112/62
--- NOTE | 2020-05-22 09:22 | General Progress Note ---
Progress Note Progress Note AVSS Still unable to ambulate independently. Eating better and less abdominal wall pain Abdomen soft, gastrostomy site clean with tube plugged, Kock pouch stoma stable with indwelling catheter to drainage Mg 1.7 albumin up 3.1 Imp: slowly improving Plan: Mg infusions IV today hopefully can remove gastrostomy and start Kock pouch self-intubations in AM continue in-patient care f/u labs Lalo Meadows MD May 22, 2020 09:22
[2020-05-22] MEDS: Citalopram Hydrobromide 10mg Tab ORAL SCH (09:36)
[2020-05-22] MEDS: BuPROPion SR 100mg tab ORAL SCH (09:37)
[2020-05-22 12:00] VITALS: BP 127/70
[2020-05-22 16:00] VITALS: BP 103/56
[2020-05-22 20:00] VITALS: BP 115/64
[2020-05-22] MEDS: Miconazole Vag Cr 45gm Tube (100mg per applicator) VAGIN SCH (21:00)
[2020-05-22] MEDS: Dyna-Hex 2% Top Sol 2oz TOPIC SCH (22:12)
[2020-05-22] MEDS: MYRBETRIQ 50 MG ORAL SCH (22:13)
--- NOTE | 2020-05-22 23:38 | Psych Consult Progress Note ---
Psychiatry Progress Note Psychiatry Progress Note Subjective the pt is doing better not in pain Medications Current Medications Medications (Trade) Dose Ordered Sig/Jori Route PRN Reason Start Time Stop Time Status Last Admin Dose Admin Acetaminophen (Tylenol) 1,000 mg Q4H PRN GT temp>100.2 or headache 04/29/20 15:45 05/29/20 15:44 05/10/20 20:46 Acetaminophen/ Hydrocodone Bitart ([place] 5/325) 1 tab Q4H PRN ORAL pain 05/22/20 10:30 05/29/20 10:29 05/22/20 19:01 Alprazolam (Xanax) 0.5 mg DAILY PRN ORAL For Anxiety 05/22/20 00:30 05/29/20 00:29 05/22/20 22:13 Ascorbic Acid (Vitamin C) 500 mg NEEDED PRN ORAL Constipation 05/16/20 10:15 06/15/20 10:14 Bupropion HCl (Wellbutrin SR) 200 mg DAILY ORAL 05/19/20 09:00 06/18/20 08:59 05/22/20 09:37 Chlorhexidine Gluconate (Kathryn-Hex 2%) 1 applic DAILY@2000 TOPIC 04/27/20 20:00 07/26/20 19:59 05/22/20 22:12 Citalopram Hydrobromide (CeleXA) 40 mg DAILY ORAL 05/22/20 09:00 06/21/20 08:59 05/22/20 09:36 Dextrose (Dextrose 50%) 25 ml Q30M PRN IV Hypoglycemia 04/28/20 08:30 07/27/20 08:29 Dextrose (Dextrose 50%) 50 ml Q30M PRN IV Hypoglycemia 04/28/20 08:30 07/27/20 08:29 Folic Acid (Folate) 1 mg DAILY ORAL 04/27/20 10:30 05/27/20 10:29 05/22/20 09:37 Ketorolac Tromethamine (Toradol 30mg) 15 mg Q6H PRN IV Severe Breakthru Pain (>7) 05/19/20 14:15 05/24/20 14:14 05/20/20 19:55 Lidocaine HCl (Xylocaine Jelly 2%) 1 applic Q2H PRN TOPIC For Pain 05/17/20 10:00 08/15/20 09:59 05/17/20 12:46 Metoclopramide HCl (Reglan) 10 mg DAILYPRN PRN IVP Nausea & Vomiting 05/14/20 10:45 06/13/20 10:44 05/17/20 04:31 Miconazole Nitrate (Monistat) 1 applic BEDTIME VAGIN 05/11/20 21:00 08/09/20 20:59 05/21/20 21:08 Ondansetron HCl (Zofran) 4 mg Q4H PRN IVP Nausea & Vomiting 04/29/20 15:45 05/29/20 15:44 05/22/20 23:24 Patient Own Medication (Patient's Own Med) 1 ea QHS ORAL 05/13/20 21:00 06/12/20 20:59 05/22/20 22:13 Trazodone HCl (Desyrel) 300 mg BEDTIME PRN ORAL Insomnia 05/12/20 15:00 05/27/20 20:59 05/22/20 00:50 Neurological/Psychiatric: Reports: anxiety, depressed, emotional problems Allergies: Coded Allergies: ADHESIVE TAPE (Verified Adverse Reaction, Intermediate, Rash, 08/27/19) CLEAR TAPE Objective Data Height (Feet): 5 Height (Inches): 3.00 Weight (Pounds): 139 General Appearance: WD/WN, no apparent distress, alert, alert oriented x3 Appearance: no abnormalities noted Behavior Mannerisms: good eye contact Mental Status Exam - Affect: blunted Mental Status Exam - Mood: anxious Speech: clear Mental Status Exam - Thought P: circumstantial Mental Status Exam - Suicidal: not present Assessment/Plan Assessment/Plan: (1) Depression Assessment & Plan: anxiety do welburtrin dc xanax celexa seroquel provided ro/st ICD Codes: F32.9 - Major depressive disorder, single episode, unspecified Antonio Coates MD May 22, 2020 23:38
[2020-05-23] VITALS: BP 110/61
[2020-05-23] MEDS: HYDROcodone/Acetamin 5/325 tab ORAL PRN ×4 (03:49→23:12)
[2020-05-23 04:00] VITALS: BP 119/58
[2020-05-23 05:50] LABS: BASOPHILS % (AUTO) 1.2 % (0.0-2.0); EOSINOPHILS % (AUTO) 0.3 % (0.0-3.0); HEMATOCRIT 34.5 % (37.0-47.0); LYMPHOCYTES % (AUTO) 27.7 % (20.0-45.0); MEAN CORPUSCULAR VOLUME 100 FL (80-99); MONOCYTES % (AUTO) 7.9 % (1.0-10.0); NEUTROPHILS % (AUTO) 62.9 % (45.0-75.0); PLATELET COUNT 402 K/UL (150-450); RED BLOOD COUNT 3.45 M/UL (4.20-5.40); RED CELL DISTRIBUTION WIDTH 13.6 % (11.6-14.8); WHITE BLOOD COUNT 5.5 K/UL (4.8-10.8)
[2020-05-23 06:24] LABS: ALANINE AMINOTRANSFERASE 13 U/L (12-78); ALBUMIN 3.3 G/DL (3.4-5.0); ALBUMIN/GLOBULIN RATIO 0.7 (1.0-2.7); ALKALINE PHOSPHATASE 186 U/L (46-116); ANION GAP 6 mmol/L (5-15); ASPARTATE AMINO TRANSFERASE 15 U/L (15-37); BILIRUBIN,TOTAL 0.5 MG/DL (0.2-1.0); BLOOD UREA NITROGEN 22 mg/dL (7-18); CALCIUM 9.2 MG/DL (8.5-10.1); CARBON DIOXIDE 28 MMOL/L (21-32); CHLORIDE 103 MMOL/L (98-107); CREATININE 1.2 MG/DL (0.55-1.30); POTASSIUM 3.7 MMOL/L (3.5-5.1); SODIUM 137 MMOL/L (136-145)
[2020-05-23 08:00] VITALS: BP 121/68
[2020-05-23] MEDS: Citalopram Hydrobromide 10mg Tab ORAL SCH (08:23)
[2020-05-23] MEDS: BuPROPion SR 100mg tab ORAL SCH (08:23)
--- NOTE | 2020-05-23 09:03 | General Progress Note ---
Progress Note Progress Note AVSS c/o queasy/nausea feeling while eating. Ate 75% lunch and 50% dinner (no breakfast) - 48 hour calorie count in progress Per PT note - requires additional in-patient physical therapy Abdomen soft, incision well healed Urine 2550 Kock pouch ileo 590 WBC 5500 Hgb 11 BUN 22 Cr 1.2 Mg up 2.1 albumin up 3.3 Imp: Generalized weakness Malnutrition, improving Kock pouch Plan: complete calorie count, then add Ensure (she tolerated in the past) as needed remove Gastrostomy if not needed for enteral feeding start RN supervised Kock Pouch self-intubations when stronger continue in-patient care [place] ac and hs Lalo Meadows MD May 23, 2020 09:03
[2020-05-23] MEDS ORDERED: NS 275ml ONE (10:13)
[2020-05-23] MEDS ORDERED: Tubing IV Secondary IV ONE (10:13)
[2020-05-23 12:00] VITALS: BP 125/69
--- NOTE | 2020-05-23 12:08 | Hematology/Onc Progress Note ---
Assessment/Plan Assessment/Plan ASSESSMENT AND PLAN: # SEVERE Thrombocytopenia that is severe, on admission, plt was wnl and now dropped to 8K The patient comes in with high-grade bowel obstruction and malfunction Kock pouch continent ileostomy. The patient is status post surgery including release of the bowel obstruction. The patient was noted to have pus in small intra-abdominal abscess. It was growing out Klebsiella pneumoniae and Enterococcus. The patient has a low platele count and could be secondary to cefepime, which the patient is on. --> cefepime has been stopped, likely culprits --> as per ID antibiotics, vancomycin, Cipro, and Flagyl. --> dic panel has been ordered --> peripheral smear has been ordered as well --> hapto neg and fibrinogen 738 --> hold off steroids --> no heparin or lovenox administered recently --> duplex lower ext ordered-->neg for dvt --> transfuse 2 units plt 05/07 --> plt trend 8k-->6k->34-->73->46->60-->74-->136-->163-->293->363->375-->383-> 402 --> HIT antbody test ordered-->neg --> cr is wnl, less likely aHUS, also no schistocytes on smear noted --> also less likely iTP but is in differential ==>> consider bone marrow biopsy if labs not better # Anemia likely due to hemoldilution --> likely hemodilutional and chronic disease --> hgb trend 9.6-->9.4-->11.2-->10.3->11 # The patient has a history of Kock pouch continent ileostomy. # History of ulcerative colitis. # History of multiple abdominal surgeries. # History of spine surgery. # History of parathyroid adenoma. # History of proctocolectomy. # History of laparotomy. The timing of this note does not necessarily reflect the time of the patient was seen. Greatly appreciate consultation. Subjective Constitutional: Denies: no symptoms, chills, fever, malaise, weakness, other HEENT: Denies: no symptoms, eye pain, blurred vision, tearing, double vision, ear pain, ear discharge, nose pain, nose congestion, throat pain, throat swelling, mouth pain, mouth swelling, other Cardiovascular: Denies: no symptoms, chest pain, edema, irregular heart rate, lightheadedness, palpitations, syncope, other Respiratory: Denies: no symptoms, cough, shortness of breath, SOB with excertion, SOB at rest, sputum, wheezing, other Gastrointestinal/Abdominal: Denies: no symptoms, abdomen distended, abdominal pain, black stools, tarry stools, blood in stool, constipated, diarrhea, difficulty swallowing, nausea, poor appetite, poor fluid intake, rectal bleeding , vomiting, other Neurologic/Psychiatric: Denies: no symptoms, anxiety, depressed, emotional problems, headache, numbness, paresthesia, pre-existing deficit, seizure, tingling, tremors, weakness, other Endocrine: Denies: no symptoms, excessive sweating, flushing, intolerance to cold, intolerance to heat, increased hunger, increased thirst, increased urine, unexplained weight gain, unexplained weight loss, other Allergies: Coded Allergies: ADHESIVE TAPE (Verified Adverse Reaction, Intermediate, Rash, 08/27/19) CLEAR TAPE Subjective 05/08 gtube connected, plts 6k, ordered for transfusion, consider ahus as well, will get hit ab test 05/10 plt is 73, no bleeding, feelingbetter, holding off transfusion 05/11 labs are noted, no bleeding, plt 46k, remains on antibiotics, may consider biopsy tomorrow if labs do not improve 05/12 plt is better, gtube is clamped, no bleeding, no bleeding 05/13 platelets have briskly improved, dw pt and will hold off marrow 05/14 awake and alert, new small pleural effusion, no sob 05/15 meds noted, no bleeding, dw rn, no night sweats, still with pain abdominal 05/17 meds reviewed, no bleeding, dw rn, no major changes, plt 293 05/18 labs noted, no bleeding, dw rn, no night sweats 05/19 labs are reviewed, plt 375, no bleeding, meds noted 05/20 meds noted, no bleeding, no chills, plt better 723 no bleeding no chills, no fc, hgb 10.3, no hemolysis 05/22 gtube is clamped, no night sweats, meds reviewed, no major changes 05/23 still with some mild pain, no bleeding, meds reviewed, plt better Objective Objective Current Medications Medications (Trade) Dose Ordered Sig/Jori Route PRN Reason Start Time Stop Time Status Last Admin Dose Admin Acetaminophen (Tylenol) 1,000 mg Q4H PRN GT temp>100.2 or headache 04/29/20 15:45 05/29/20 15:44 05/10/20 20:46 Acetaminophen/ Hydrocodone Bitart ([place] 5/325) 1 tab Q4H PRN ORAL pain 05/22/20 10:30 05/29/20 10:29 05/23/20 08:38 Alprazolam (Xanax) 0.5 mg DAILY PRN ORAL For Anxiety 05/22/20 00:30 05/29/20 00:29 05/22/20 22:13 Ascorbic Acid (Vitamin C) 500 mg NEEDED PRN ORAL Constipation 05/16/20 10:15 06/15/20 10:14 Bupropion HCl (Wellbutrin SR) 200 mg DAILY ORAL 05/19/20 09:00 06/18/20 08:59 05/23/20 08:23 Chlorhexidine Gluconate (Kathryn-Hex 2%) 1 applic DAILY@2000 TOPIC 04/27/20 20:00 07/26/20 19:59 05/22/20 22:12 Citalopram Hydrobromide (CeleXA) 40 mg DAILY ORAL 05/22/20 09:00 06/21/20 08:59 05/23/20 08:23 Dextrose (Dextrose 50%) 25 ml Q30M PRN IV Hypoglycemia 04/28/20 08:30 07/27/20 08:29 Dextrose (Dextrose 50%) 50 ml Q30M PRN IV Hypoglycemia 04/28/20 08:30 07/27/20 08:29 Folic Acid (Folate) 1 mg DAILY ORAL 04/27/20 10:30 05/27/20 10:29 05/23/20 08:23 Ketorolac Tromethamine (Toradol 30mg) 15 mg Q6H PRN IV Severe Breakthru Pain (>7) 05/23/20 14:15 05/28/20 14:14 Lidocaine HCl (Xylocaine Jelly 2%) 1 applic Q2H PRN TOPIC For Pain 05/17/20 10:00 08/15/20 09:59 05/17/20 12:46 Miconazole Nitrate (Monistat) 1 applic BEDTIME VAGIN 05/11/20 21:00 08/09/20 20:59 05/21/20 21:08 Ondansetron HCl (Zofran ODT) 4 mg AC+HS ORAL 05/23/20 11:30 06/22/20 11:29 05/23/20 11:23 Patient Own Medication (Patient's Own Med) 1 ea QHS ORAL 05/13/20 21:00 06/12/20 20:59 05/22/20 22:13 Trazodone HCl (Desyrel) 300 mg BEDTIME PRN ORAL Insomnia 05/12/20 15:00 05/27/20 20:59 05/22/20 00:50 Last 24 Hour Vital Signs Date Time Temp Pulse Resp B/P (MAP) Pulse Ox O2 Delivery O2 Flow Rate FiO2 05/23/20 09:00 Room Air 05/23/20 08:00 98.7 78 18 121/68 (85) 95 05/23/20 04:19 98.0 05/23/20 04:00 98.0 83 18 119/58 (78) 97 05/23/20 00:00 98.1 85 18 110/61 (77) 97 05/22/20 21:00 Room Air 05/22/20 20:00 98.3 84 18 115/64 (81) 97 05/22/20 16:00 98.9 87 19 103/56 (72) 96 05/22/20 12:00 97.1 69 21 127/70 (89) 97 05/22/20 09:00 Room Air 05/22/20 08:00 98.8 86 18 112/62 (79) 98 05/22/20 04:00 98.2 92 18 114/61 (78) 96 05/22/20 00:00 98.6 80 18 110/57 (74) 98 05/21/20 21:00 Room Air 05/21/20 20:00 98.9 85 18 114/63 (80) 96 05/21/20 15:54 98.6 90 16 101/59 (73) 97 Intake and Output 05/22/20 05/23/20 19:00 07:00 Intake Total 828 ml 480 ml Output Total 1470 ml 1670 ml Balance -642 ml -1190 ml Intake Oral 828 ml 480 ml Output Urine Total 1150 ml 1400 ml Other 320 ml 270 ml # Voids 5 3 Labs Test 05/20/20 17:37 05/21/20 05:30 05/22/20 04:50 05/23/20 04:00 White Blood Count 5.9 K/UL (4.8-10.8) 4.9 K/UL (4.8-10.8) 5.5 K/UL (4.8-10.8) Red Blood Count 3.19 M/UL (4.20-5.40) 3.25 M/UL (4.20-5.40) 3.45 M/UL (4.20-5.40) Hemoglobin 10.3 G/DL (12.0-16.0) 10.4 G/DL (12.0-16.0) 11.0 G/DL (12.0-16.0) Hematocrit 32.0 % (37.0-47.0) 32.7 % (37.0-47.0) 34.5 % (37.0-47.0) Mean Corpuscular Volume 100 FL (80-99) 101 FL (80-99) 100 FL (80-99) Mean Corpuscular Hemoglobin 32.3 PG (27.0-31.0) 32.0 PG (27.0-31.0) 31.8 PG (27.0-31.0) Mean Corpuscular Hemoglobin Concent 32.2 G/DL (32.0-36.0) 31.8 G/DL (32.0-36.0) 31.8 G/DL (32.0-36.0) Red Cell Distribution Width 13.9 % (11.6-14.8) 13.5 % (11.6-14.8) 13.6 % (11.6-14.8) Platelet Count 393 K/UL (150-450) 392 K/UL (150-450) 402 K/UL (150-450) Mean Platelet Volume 7.0 FL (6.5-10.1) 6.8 FL (6.5-10.1) 6.7 FL (6.5-10.1) Neutrophils (%) (Auto) 71.4 % (45.0-75.0) 61.4 % (45.0-75.0) 62.9 % (45.0-75.0) Lymphocytes (%) (Auto) 18.7 % (20.0-45.0) 27.9 % (20.0-45.0) 27.7 % (20.0-45.0) Monocytes (%) (Auto) 8.2 % (1.0-10.0) 9.3 % (1.0-10.0) 7.9 % (1.0-10.0) Eosinophils (%) (Auto) 0.1 % (0.0-3.0) 0.2 % (0.0-3.0) 0.3 % (0.0-3.0) Basophils (%) (Auto) 1.6 % (0.0-2.0) 1.2 % (0.0-2.0) 1.2 % (0.0-2.0) Sodium Level 138 MMOL/L (136-145) 137 MMOL/L (136-145) 137 MMOL/L (136-145) Potassium Level 4.4 MMOL/L (3.5-5.1) 3.9 MMOL/L (3.5-5.1) 3.7 MMOL/L (3.5-5.1) Chloride Level 103 MMOL/L (98-107) 103 MMOL/L (98-107) 103 MMOL/L (98-107) Carbon Dioxide Level 29 MMOL/L (21-32) 31 MMOL/L (21-32) 28 MMOL/L (21-32) Anion Gap 6 mmol/L (5-15) 4 mmol/L (5-15) 6 mmol/L (5-15) Blood Urea Nitrogen 27 mg/dL (7-18) 24 mg/dL (7-18) 22 mg/dL (7-18) Creatinine 1.1 MG/DL (0.55-1.30) 1.1 MG/DL (0.55-1.30) 1.2 MG/DL (0.55-1.30) Estimat Glomerular Filtration Rate 49.3 mL/min (>60) 49.3 mL/min (>60) 44.5 mL/min (>60) Glucose Level 85 MG/DL (74-106) 77 MG/DL (74-106) 77 MG/DL (74-106) Calcium Level 8.9 MG/DL (8.5-10.1) 9.3 MG/DL (8.5-10.1) 9.2 MG/DL (8.5-10.1) Phosphorus Level 3.8 MG/DL (2.5-4.9) 3.5 MG/DL (2.5-4.9) Magnesium Level 1.8 MG/DL (1.8-2.4) 1.7 MG/DL (1.8-2.4) 2.1 MG/DL (1.8-2.4) Total Bilirubin 0.5 MG/DL (0.2-1.0) 0.5 MG/DL (0.2-1.0) 0.5 MG/DL (0.2-1.0) Aspartate Amino Transf (AST/SGOT) 25 U/L (15-37) 22 U/L (15-37) 15 U/L (15-37) Alanine Aminotransferase (ALT/SGPT) 28 U/L (12-78) 24 U/L (12-78) 13 U/L (12-78) Alkaline Phosphatase 187 U/L (46-116) 185 U/L (46-116) 186 U/L (46-116) Total Protein 7.3 G/DL (6.4-8.2) 7.5 G/DL (6.4-8.2) 7.9 G/DL (6.4-8.2) Albumin 2.8 G/DL (3.4-5.0) 3.1 G/DL (3.4-5.0) 3.3 G/DL (3.4-5.0) Globulin 4.5 g/dL 4.4 g/dL 4.6 g/dL Albumin/Globulin Ratio 0.6 (1.0-2.7) 0.7 (1.0-2.7) 0.7 (1.0-2.7) Height (Feet): 5 Height (Inches): 3.00 Weight (Pounds): 139 Objective Physical Exam: Vitals: reviewed General: NAD HEENT: nc, at Neck: supple Chest: clear breath sounds bilaterally Cardiovascular: RRR, no s3, s4 Abdomen: soft, nontender, nd ++gtube, Kouch pouch ++ midline scar site is c/d/i Extremities: no cce, normal range of motion Neuro: alert and oriented Cecilio Grey MD May 23, 2020 12:08
[2020-05-23 16:00] VITALS: BP 120/63
--- NOTE | 2020-05-23 18:04 | Infectious Diseases Prog Note ---
Assessment/Plan Assessment/Plan ASSESSMENT AND PLAN: 1. ? sepsis, leukocytosis, fevers, thrombocytopenia, ? cholecystitis, ? aspiration pna/hcap vs atelectasis (favor atelectasis) klebsiella and enterococcus abscess - s/p debridement sbo, malfunctioning Kock ileostomy - s/p surgery ileus, ? bowel obstruction fungemia risk - s/p vancomycin, ciprofloxacin, flagyl and micafungin - f/u urine/blood cultures negative - improving clinically, thrombocytopenia resolved - monitor labs, no sig fevers - stable from ID standpoint 2. The patient has a history of Kock pouch continent ileostomy. 3. History of ulcerative colitis. 4. History of multiple abdominal surgeries. 5. History of spine surgery. 6. History of parathyroid adenoma. 7. History of proctocolectomy. 8. History of laparotomy. 9. Anemia. 10. Thrombocytopenia. 11. Allergies to adhesive tape. 12. Social history is negative. 13. Family history is noncontributory. 14. MAR is noted. 15. Case was discussed with RN. 16. Continue treatment per Dr. Meadows and consultants. 17. I will follow. Subjective Constitutional: Reports: fatigue; Denies: fever HEENT: Denies: congestion Respiratory: Denies: shortness of breath Cardiovascular: Denies: chest pain Genitourinary: Denies: dysuria, hematuria, frequency Neurologic: Denies: headache Psychiatric: Reports: depression Skin: Reports: rash Hematologic: Reports: bleeding Musculoskeletal: Reports: pain Allergies: Coded Allergies: ADHESIVE TAPE (Verified Adverse Reaction, Intermediate, Rash, 08/27/19) CLEAR TAPE Objective Last 24 Hour Vital Signs Date Time Temp Pulse Resp B/P (MAP) Pulse Ox O2 Delivery O2 Flow Rate FiO2 05/23/20 16:00 98.8 84 17 120/63 (82) 95 05/23/20 12:00 98.2 82 19 125/69 (87) 95 05/23/20 09:00 Room Air 05/23/20 08:00 98.7 78 18 121/68 (85) 95 05/23/20 04:19 98.0 05/23/20 04:00 98.0 83 18 119/58 (78) 97 05/23/20 00:00 98.1 85 18 110/61 (77) 97 05/22/20 21:00 Room Air 05/22/20 20:00 98.3 84 18 115/64 (81) 97 Height (Feet): 5 Height (Inches): 3.00 Weight (Pounds): 139 General Appearance: no acute distress HEENT: normocephalic, atraumatic, anicteric, mucous membranes moist Respiratory/Chest: lungs clear, normal breath sounds, no respiratory distress, no accessory muscle use Cardiovascular: normal rate, regular rhythm, no gallop/murmur, no JVD Abdomen: normal bowel sounds, soft, non tender, no organomegaly, non distended Genitourinary: other - no decker Extremities: no cyanosis Skin: no rash 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 There is some persistent right perihilar atelectasis. The heart size is normal. Impression: Improved bilateral suprahilar interstitial infiltrates, over 2 days Abdominal US: Impression: Distended gallbladder with borderline wall thickening, but no gallstones. Significance uncertain. Mildly dilated common bile duct. May be age-related, downstream obstruction not completely excludable particularly in view of findings reported on recent CT scan. Correlate with liver function tests, consider MRCP for further evaluation if clinically indicated CT abdomen and pelvis - 04/27/20 - Impression: Dilated proximal small bowel loops, with another short segment of dilated mid small bowel, nondilated distal small bowel loops. Findings are concerning for small bowel obstruction. Given somewhat prominent mucosal enhancement, findings could also be due to enteritis. Trace ascites, possibly related to the above Postsurgical changes, as described. Note that the Decker catheter is deep within the reservoir but the reservoir is somewhat distended with material. Ectatic extrahepatic bile ducts. Suspect age-related is this is unchanged from the prior study. Correlate with liver function tests Nonspecific prominent retroperitoneal lymph nodes Findings discussed by phone with Dr. Meadows at the time of interpretation KUB - 05/08/20 - FINDINGS/IMPRESSION: Multiple, mildly prominent loops of colon which may correlate with postoperative ileus. No large volume free intraperitoneal air. Extensive suture line within the pelvis and right lower quadrant, correlate with surgical history. Midline cutaneous skin lu. The lung bases are clear. Degenerative changes of the spine. Chest x-ray - 05/14/20 - Procedure: XRAY Chest 1v Indication: Cough Technique: One view of the chest Comparison: 05/07/2020 Findings: There is small left pleural effusion. Previously demonstrated right perihilar atelectasis is no longer evident. No new infiltrates. The heart size is normal. There is a right arm PICC. Impression: New small left pleural effusion. Resolved right perihilar atelectasis. Otherwise little change since prior study of 7 days earlier Microbiology Date/Time Source Procedure Growth Status 05/14/20 11:35 Blood Blood Culture - Final NO GROWTH AFTER 5 DAYS Complete 04/27/20 11:13 Nasopharynx SARS-CoV-2 RdRp Gene Assay - Final Complete 05/14/20 14:55 Urine,Clean Catch Urine Culture - Final NO GROWTH AFTER 48 HOURS Complete 04/29/20 14:48 Abdomen Gram Stain - Final Complete 04/29/20 14:48 Aerobic Culture - Final Klebsiella Pneumoniae Enterococcus Faecalis Complete 04/29/20 14:48 Abdomen Anaerobic Culture - Final NO ANAEROBES ISOLATED Complete Laboratory Tests Test 05/23/20 04:00 White Blood Count 5.5 K/UL (4.8-10.8) Red Blood Count 3.45 M/UL (4.20-5.40) L Hemoglobin 11.0 G/DL (12.0-16.0) L Hematocrit 34.5 % (37.0-47.0) L Mean Corpuscular Volume 100 FL (80-99) H Mean Corpuscular Hemoglobin 31.8 PG (27.0-31.0) H Mean Corpuscular Hemoglobin Concent 31.8 G/DL (32.0-36.0) L Red Cell Distribution Width 13.6 % (11.6-14.8) Platelet Count 402 K/UL (150-450) Mean Platelet Volume 6.7 FL (6.5-10.1) Neutrophils (%) (Auto) 62.9 % (45.0-75.0) Lymphocytes (%) (Auto) 27.7 % (20.0-45.0) Monocytes (%) (Auto) 7.9 % (1.0-10.0) Eosinophils (%) (Auto) 0.3 % (0.0-3.0) Basophils (%) (Auto) 1.2 % (0.0-2.0) Sodium Level 137 MMOL/L (136-145) Potassium Level 3.7 MMOL/L (3.5-5.1) Chloride Level 103 MMOL/L (98-107) Carbon Dioxide Level 28 MMOL/L (21-32) Anion Gap 6 mmol/L (5-15) Blood Urea Nitrogen 22 mg/dL (7-18) H Creatinine 1.2 MG/DL (0.55-1.30) Estimat Glomerular Filtration Rate 44.5 mL/min (>60) Glucose Level 77 MG/DL (74-106) Calcium Level 9.2 MG/DL (8.5-10.1) Magnesium Level 2.1 MG/DL (1.8-2.4) Total Bilirubin 0.5 MG/DL (0.2-1.0) Aspartate Amino Transf (AST/SGOT) 15 U/L (15-37) Alanine Aminotransferase (ALT/SGPT) 13 U/L (12-78) Alkaline Phosphatase 186 U/L (46-116) H Total Protein 7.9 G/DL (6.4-8.2) Albumin 3.3 G/DL (3.4-5.0) L Globulin 4.6 g/dL Albumin/Globulin Ratio 0.7 (1.0-2.7) L Current Medications Medications (Trade) Dose Ordered Sig/Jori Route PRN Reason Start Time Stop Time Status Last Admin Dose Admin Acetaminophen (Tylenol) 1,000 mg Q4H PRN GT temp>100.2 or headache 04/29/20 15:45 05/29/20 15:44 05/10/20 20:46 Acetaminophen/ Hydrocodone Bitart ([place] 5/325) 1 tab Q4H PRN ORAL pain 05/22/20 10:30 05/29/20 10:29 05/23/20 16:20 Alprazolam (Xanax) 0.5 mg DAILY PRN ORAL For Anxiety 05/22/20 00:30 05/29/20 00:29 05/22/20 22:13 Ascorbic Acid (Vitamin C) 500 mg NEEDED PRN ORAL Constipation 05/16/20 10:15 06/15/20 10:14 Bupropion HCl (Wellbutrin SR) 200 mg DAILY ORAL 05/19/20 09:00 06/18/20 08:59 05/23/20 08:23 Chlorhexidine Gluconate ([place]athryn-Hex 2%) 1 applic DAILY@1999 TOPIC 04/27/20 20:00 07/26/20 19:59 05/22/20 22:12 Citalopram Hydrobromide (CeleXA) 40 mg DAILY ORAL 05/22/20 09:00 06/21/20 08:59 05/23/20 08:23 Dextrose (Dextrose 50%) 25 ml Q30M PRN IV Hypoglycemia 04/28/20 08:30 07/27/20 08:29 Dextrose (Dextrose 50%) 50 ml Q30M PRN IV Hypoglycemia 04/28/20 08:30 07/27/20 08:29 Folic Acid (Folate) 1 mg DAILY ORAL 04/27/20 10:30 05/27/20 10:29 05/23/20 08:23 Ketorolac Tromethamine (Toradol 30mg) 15 mg Q6H PRN IV Severe Breakthru Pain (>7) 05/23/20 14:15 05/28/20 14:14 Lidocaine HCl (Xylocaine Jelly 2%) 1 applic Q2H PRN TOPIC For Pain 05/17/20 10:00 08/15/20 09:59 05/17/20 12:46 Miconazole Nitrate (Monistat) 1 applic BEDTIME VAGIN 05/11/20 21:00 08/09/20 20:59 05/21/20 21:08 Ondansetron HCl (Zofran ODT) 4 mg AC+HS ORAL 05/23/20 11:30 06/22/20 11:29 05/23/20 16:19 Patient Own Medication (Patient's Own Med) 1 ea QHS ORAL 05/13/20 21:00 06/12/20 20:59 05/22/20 22:13 Trazodone HCl (Desyrel) 300 mg BEDTIME PRN ORAL Insomnia 05/12/20 15:00 05/27/20 20:59 05/22/20 00:50 Osmin Bermudez MD May 23, 2020 18:04
[2020-05-23 20:00] VITALS: BP 116/62
[2020-05-23] MEDS: Dyna-Hex 2% Top Sol 2oz TOPIC SCH (20:26)
[2020-05-23] MEDS: Miconazole Vag Cr 45gm Tube (100mg per applicator) VAGIN SCH ×2 (20:28→21:00)
[2020-05-23] MEDS: MYRBETRIQ 50 MG ORAL SCH (20:28)
[2020-05-23] MEDS: TraZODone 100mg tab ORAL PRN (22:06)
[2020-05-23] MEDS: Lidocaine HCl 2% Jelly 6ml Tube TOPIC PRN (23:12)
--- NOTE | 2020-05-23 23:58 | Psych Consult Progress Note ---
Psychiatry Progress Note Psychiatry Progress Note Subjective the pt is smiling appropriately sleep is adequate no si/hi Medications Current Medications Medications (Trade) Dose Ordered Sig/Jori Route PRN Reason Start Time Stop Time Status Last Admin Dose Admin Acetaminophen (Tylenol) 1,000 mg Q4H PRN GT temp>100.2 or headache 04/29/20 15:45 05/29/20 15:44 05/10/20 20:46 Acetaminophen/ Hydrocodone Bitart ([place] 5/325) 1 tab Q4H PRN ORAL pain 05/22/20 10:30 05/29/20 10:29 05/23/20 23:12 Alprazolam (Xanax) 0.5 mg DAILY PRN ORAL For Anxiety 05/22/20 00:30 05/29/20 00:29 05/22/20 22:13 Ascorbic Acid (Vitamin C) 500 mg NEEDED PRN ORAL Constipation 05/16/20 10:15 06/15/20 10:14 Bupropion HCl (Wellbutrin SR) 200 mg DAILY ORAL 05/19/20 09:00 06/18/20 08:59 05/23/20 08:23 Chlorhexidine Gluconate (Kathryn-Hex 2%) 1 applic DAILY@2000 TOPIC 04/27/20 20:00 07/26/20 19:59 05/23/20 20:26 Citalopram Hydrobromide (CeleXA) 40 mg DAILY ORAL 05/22/20 09:00 06/21/20 08:59 05/23/20 08:23 Dextrose (Dextrose 50%) 25 ml Q30M PRN IV Hypoglycemia 04/28/20 08:30 07/27/20 08:29 Dextrose (Dextrose 50%) 50 ml Q30M PRN IV Hypoglycemia 04/28/20 08:30 07/27/20 08:29 Folic Acid (Folate) 1 mg DAILY ORAL 04/27/20 10:30 05/27/20 10:29 05/23/20 08:23 Ketorolac Tromethamine (Toradol 30mg) 15 mg Q6H PRN IV Severe Breakthru Pain (>7) 05/23/20 14:15 05/28/20 14:14 Lidocaine HCl (Xylocaine Jelly 2%) 1 applic Q2H PRN TOPIC For Pain 05/17/20 10:00 08/15/20 09:59 7/25/20 23:12 Miconazole Nitrate (Monistat) 1 applic BEDTIME VAGIN 05/11/20 21:00 08/09/20 20:59 05/21/20 21:08 Ondansetron HCl (Zofran ODT) 4 mg AC+HS ORAL 05/23/20 11:30 06/22/20 11:29 05/23/20 20:26 Patient Own Medication (Patient's Own Med) 1 ea QHS ORAL 05/13/20 21:00 06/12/20 20:59 05/23/20 20:28 Trazodone HCl (Desyrel) 300 mg BEDTIME PRN ORAL Insomnia 05/12/20 15:00 05/27/20 20:59 05/23/20 22:06 Allergies: Coded Allergies: ADHESIVE TAPE (Verified Adverse Reaction, Intermediate, Rash, 08/27/19) CLEAR TAPE Objective Data Height (Feet): 5 Height (Inches): 3.00 Weight (Pounds): 139 General Appearance: WD/WN, no apparent distress, alert, alert oriented x3 Appearance: no abnormalities noted Behavior Mannerisms: good eye contact Mental Status Exam - Affect: constricted Mental Status Exam - Mood: euthymic Speech: clear Mental Status Exam - Thought P: no abnormalities Mental Status Exam - Suicidal: not present Mental Status Exam - Cognition: no abnormalities Assessment/Plan Assessment/Plan: (1) Depression Assessment & Plan: anxiety do welburtrin dc xanax celexa seroquel provided ro/st ICD Codes: F32.9 - Major depressive disorder, single episode, unspecified Antonio Coates MD May 23, 2020 23:58
[2020-05-24] VITALS: BP 121/64
[2020-05-24 04:00] VITALS: BP 114/55
[2020-05-24 08:00] VITALS: BP 120/63
[2020-05-24] MEDS: Citalopram Hydrobromide 10mg Tab ORAL SCH (08:26)
[2020-05-24] MEDS: BuPROPion SR 100mg tab ORAL SCH (08:26)
[2020-05-24] MEDS: HYDROcodone/Acetamin 5/325 tab ORAL PRN ×3 (08:34→18:26)
--- NOTE | 2020-05-24 09:38 | General Progress Note ---
Progress Note Progress Note AVSS Continues stable with fair po intake only. Abdomen soft, flat Dietary evaluation and rec. reviewed Imp: Malnutrition with inadequate po intake Plan; Add Ensure Enlive 2/day between meals, not as a meal substitute If tolerates well, then can remove gastrostomy tube and start Kock pouch self-intubation in AM f/u labs Lalo Meadows MD May 24, 2020 09:38
[2020-05-24] MEDS ORDERED: Imdur 30mg tab ORAL SCH (10:00)
--- NOTE | 2020-05-24 12:47 | Hematology/Onc Progress Note ---
Assessment/Plan Assessment/Plan ASSESSMENT AND PLAN: # SEVERE Thrombocytopenia that is severe, on admission, plt was wnl and now dropped to 8K The patient comes in with high-grade bowel obstruction and malfunction Kock pouch continent ileostomy. The patient is status post surgery including release of the bowel obstruction. The patient was noted to have pus in small intra-abdominal abscess. It was growing out Klebsiella pneumoniae and Enterococcus. The patient has a low platele count and could be secondary to cefepime, which the patient is on. --> cefepime has been stopped, likely culprits --> as per ID antibiotics, vancomycin, Cipro, and Flagyl. --> dic panel has been ordered --> peripheral smear has been ordered as well --> hapto neg and fibrinogen 738 --> hold off steroids --> no heparin or lovenox administered recently --> duplex lower ext ordered-->neg for dvt --> transfuse 2 units plt 05/07 --> plt trend 8k-->6k->34-->73->46->60-->74-->136-->163-->293->363->375-->383-> 402 --> HIT antbody test ordered-->neg --> cr is wnl, less likely aHUS, also no schistocytes on smear noted --> also less likely iTP but is in differential ==>> consider bone marrow biopsy if labs not better # Anemia likely due to hemoldilution --> likely hemodilutional and chronic disease --> hgb trend 9.6-->9.4-->11.2-->10.3->11 # The patient has a history of Kock pouch continent ileostomy. # History of ulcerative colitis. # History of multiple abdominal surgeries. # History of spine surgery. # History of parathyroid adenoma. # History of proctocolectomy. # History of laparotomy. The timing of this note does not necessarily reflect the time of the patient was seen. Greatly appreciate consultation. Subjective Constitutional: Denies: no symptoms, chills, fever, malaise, weakness, other HEENT: Denies: no symptoms, eye pain, blurred vision, tearing, double vision, ear pain, ear discharge, nose pain, nose congestion, throat pain, throat swelling, mouth pain, mouth swelling, other Cardiovascular: Denies: no symptoms, chest pain, edema, irregular heart rate, lightheadedness, palpitations, syncope, other Respiratory: Denies: no symptoms, cough, shortness of breath, SOB with excertion, SOB at rest, sputum, wheezing, other Gastrointestinal/Abdominal: Denies: no symptoms, abdomen distended, abdominal pain, black stools, tarry stools, blood in stool, constipated, diarrhea, difficulty swallowing, nausea, poor appetite, poor fluid intake, rectal bleeding , vomiting, other Neurologic/Psychiatric: Denies: no symptoms, anxiety, depressed, emotional problems, headache, numbness, paresthesia, pre-existing deficit, seizure, tingling, tremors, weakness, other Endocrine: Denies: no symptoms, excessive sweating, flushing, intolerance to cold, intolerance to heat, increased hunger, increased thirst, increased urine, unexplained weight gain, unexplained weight loss, other Allergies: Coded Allergies: ADHESIVE TAPE (Verified Adverse Reaction, Intermediate, Rash, 08/27/19) CLEAR TAPE Subjective 05/08 gtube connected, plts 6k, ordered for transfusion, consider ahus as well, will get hit ab test 05/10 plt is 73, no bleeding, feelingbetter, holding off transfusion 05/11 labs are noted, no bleeding, plt 46k, remains on antibiotics, may consider biopsy tomorrow if labs do not improve 05/12 plt is better, gtube is clamped, no bleeding, no bleeding 05/13 platelets have briskly improved, dw pt and will hold off marrow 05/14 awake and alert, new small pleural effusion, no sob 05/15 meds noted, no bleeding, dw rn, no night sweats, still with pain abdominal 05/17 meds reviewed, no bleeding, irish rn, no major changes, plt 293 05/18 labs noted, no bleeding, irish rn, no night sweats 05/19 labs are reviewed, plt 375, no bleeding, meds noted 05/20 meds noted, no bleeding, no chills, plt better 723 no bleeding no chills, no fc, hgb 10.3, no hemolysis 05/22 gtube is clamped, no night sweats, meds reviewed, no major changes 05/23 still with some mild pain, no bleeding, meds reviewed, plt better 05/24 comfortable, no new events no changes, no bleeding this am Objective Objective Current Medications Medications (Trade) Dose Ordered Sig/Jori Route PRN Reason Start Time Stop Time Status Last Admin Dose Admin Acetaminophen (Tylenol) 1,000 mg Q4H PRN GT temp>100.2 or headache 04/29/20 15:45 05/29/20 15:44 05/10/20 20:46 Acetaminophen/ Hydrocodone Bitart ([place] 5/325) 1 tab Q4H PRN ORAL pain 05/22/20 10:30 05/29/20 10:29 05/24/20 08:34 Alprazolam (Xanax) 0.5 mg DAILY PRN ORAL For Anxiety 05/22/20 00:30 05/29/20 00:29 05/22/20 22:13 Ascorbic Acid (Vitamin C) 500 mg NEEDED PRN ORAL Constipation 05/16/20 10:15 06/15/20 10:14 Bupropion HCl (Wellbutrin SR) 200 mg DAILY ORAL 05/19/20 09:00 06/18/20 08:59 05/24/20 08:26 Chlorhexidine Gluconate (Kathryn-Hex 2%) 1 applic DAILY@2000 TOPIC 04/27/20 20:00 07/26/20 19:59 05/23/20 20:26 Citalopram Hydrobromide (CeleXA) 40 mg DAILY ORAL 05/22/20 09:00 06/21/20 08:59 05/24/20 08:26 Dextrose (Dextrose 50%) 25 ml Q30M PRN IV Hypoglycemia 04/28/20 08:30 07/27/20 08:29 Dextrose (Dextrose 50%) 50 ml Q30M PRN IV Hypoglycemia 04/28/20 08:30 07/27/20 08:29 Folic Acid (Folate) 1 mg DAILY ORAL 04/27/20 10:30 05/27/20 10:29 05/24/20 08:26 Ketorolac Tromethamine (Toradol 30mg) 15 mg Q6H PRN IV Severe Breakthru Pain (>7) 05/23/20 14:15 05/28/20 14:14 Lidocaine HCl (Xylocaine Jelly 2%) 1 applic Q2H PRN TOPIC For Pain 05/17/20 10:00 08/15/20 09:59 05/23/20 23:12 Miconazole Nitrate (Monistat) 1 applic BEDTIME VAGIN 05/11/20 21:00 08/09/20 20:59 05/21/20 21:08 Ondansetron HCl (Zofran ODT) 4 mg AC+HS ORAL 05/23/20 11:30 06/22/20 11:29 05/24/20 11:11 Patient Own Medication (Patient's Own Med) 1 ea QHS ORAL 05/13/20 21:00 06/12/20 20:59 05/23/20 20:28 Trazodone HCl (Desyrel) 300 mg BEDTIME PRN ORAL Insomnia 05/12/20 15:00 05/27/20 20:59 05/23/20 22:06 Last 24 Hour Vital Signs Date Time Temp Pulse Resp B/P (MAP) Pulse Ox O2 Delivery O2 Flow Rate FiO2 05/24/20 09:00 Room Air 05/24/20 08:00 98.9 79 18 120/63 (82) 95 05/24/20 04:00 98.4 83 18 114/55 (74) 96 05/24/20 00:00 98.2 79 18 121/64 (83) 95 05/23/20 21:00 Room Air 05/23/20 20:00 98.4 83 18 116/62 (80) 96 05/23/20 16:00 98.8 84 17 120/63 (82) 95 05/23/20 12:00 98.2 82 19 125/69 (87) 95 05/23/20 09:00 Room Air 05/23/20 08:00 98.7 78 18 121/68 (85) 95 05/23/20 04:19 98.0 05/23/20 04:00 98.0 83 18 119/58 (78) 97 05/23/20 00:00 98.1 85 18 110/61 (77) 97 05/22/20 21:00 Room Air 05/22/20 20:00 98.3 84 18 115/64 (81) 97 05/22/20 16:00 98.9 87 19 103/56 (72) 96 Intake and Output 05/23/20 05/24/20 19:00 07:00 Intake Total 929 ml 120 ml Output Total 970 ml 795 ml Balance -41 ml -675 ml Intake Oral 929 ml 120 ml Output Urine Total 700 ml 700 ml Other 270 ml 95 ml # Voids 2 Labs Test 05/22/20 04:50 05/23/20 04:00 White Blood Count 4.9 K/UL (4.8-10.8) 5.5 K/UL (4.8-10.8) Red Blood Count 3.25 M/UL (4.20-5.40) 3.45 M/UL (4.20-5.40) Hemoglobin 10.4 G/DL (12.0-16.0) 11.0 G/DL (12.0-16.0) Hematocrit 32.7 % (37.0-47.0) 34.5 % (37.0-47.0) Mean Corpuscular Volume 101 FL (80-99) 100 FL (80-99) Mean Corpuscular Hemoglobin 32.0 PG (27.0-31.0) 31.8 PG (27.0-31.0) Mean Corpuscular Hemoglobin Concent 31.8 G/DL (32.0-36.0) 31.8 G/DL (32.0-36.0) Red Cell Distribution Width 13.5 % (11.6-14.8) 13.6 % (11.6-14.8) Platelet Count 392 K/UL (150-450) 402 K/UL (150-450) Mean Platelet Volume 6.8 FL (6.5-10.1) 6.7 FL (6.5-10.1) Neutrophils (%) (Auto) 61.4 % (45.0-75.0) 62.9 % (45.0-75.0) Lymphocytes (%) (Auto) 27.9 % (20.0-45.0) 27.7 % (20.0-45.0) Monocytes (%) (Auto) 9.3 % (1.0-10.0) 7.9 % (1.0-10.0) Eosinophils (%) (Auto) 0.2 % (0.0-3.0) 0.3 % (0.0-3.0) Basophils (%) (Auto) 1.2 % (0.0-2.0) 1.2 % (0.0-2.0) Sodium Level 137 MMOL/L (136-145) 137 MMOL/L (136-145) Potassium Level 3.9 MMOL/L (3.5-5.1) 3.7 MMOL/L (3.5-5.1) Chloride Level 103 MMOL/L (98-107) 103 MMOL/L (98-107) Carbon Dioxide Level 31 MMOL/L (21-32) 28 MMOL/L (21-32) Anion Gap 4 mmol/L (5-15) 6 mmol/L (5-15) Blood Urea Nitrogen 24 mg/dL (7-18) 22 mg/dL (7-18) Creatinine 1.1 MG/DL (0.55-1.30) 1.2 MG/DL (0.55-1.30) Estimat Glomerular Filtration Rate 49.3 mL/min (>60) 44.5 mL/min (>60) Glucose Level 77 MG/DL (74-106) 77 MG/DL (74-106) Calcium Level 9.3 MG/DL (8.5-10.1) 9.2 MG/DL (8.5-10.1) Phosphorus Level 3.5 MG/DL (2.5-4.9) Magnesium Level 1.7 MG/DL (1.8-2.4) 2.1 MG/DL (1.8-2.4) Total Bilirubin 0.5 MG/DL (0.2-1.0) 0.5 MG/DL (0.2-1.0) Aspartate Amino Transf (AST/SGOT) 22 U/L (15-37) 15 U/L (15-37) Alanine Aminotransferase (ALT/SGPT) 24 U/L (12-78) 13 U/L (12-78) Alkaline Phosphatase 185 U/L (46-116) 186 U/L (46-116) Total Protein 7.5 G/DL (6.4-8.2) 7.9 G/DL (6.4-8.2) Albumin 3.1 G/DL (3.4-5.0) 3.3 G/DL (3.4-5.0) Globulin 4.4 g/dL 4.6 g/dL Albumin/Globulin Ratio 0.7 (1.0-2.7) 0.7 (1.0-2.7) Height (Feet): 5 Height (Inches): 3.00 Weight (Pounds): 139 Objective Physical Exam: Vitals: reviewed General: NAD HEENT: nc, at Neck: supple Chest: clear breath sounds bilaterally Cardiovascular: RRR, no s3, s4 Abdomen: soft, nontender, nd ++gtube, Kouch pouch ++ midline scar site is c/d/i Extremities: no cce, normal range of motion Neuro: alert and oriented Cecilio Grey MD May 24, 2020 12:47
[2020-05-24 16:00] VITALS: BP 101/66
[2020-05-24 20:00] VITALS: BP 95/62
[2020-05-24] MEDS: Dyna-Hex 2% Top Sol 2oz TOPIC SCH (20:39)
[2020-05-24] MEDS: MYRBETRIQ 50 MG ORAL SCH (20:39)
[2020-05-24] MEDS: Miconazole Vag Cr 45gm Tube (100mg per applicator) VAGIN SCH (20:40)
[2020-05-24] MEDS: TraZODone 100mg tab ORAL PRN (22:00)
[2020-05-25] VITALS: BP 105/65
--- NOTE | 2020-05-25 00:06 | Psych Consult Progress Note ---
Psychiatry Progress Note Psychiatry Progress Note Medications Current Medications Medications (Trade) Dose Ordered Sig/Jori Route PRN Reason Start Time Stop Time Status Last Admin Dose Admin Acetaminophen (Tylenol) 1,000 mg Q4H PRN GT temp>100.2 or headache 04/29/20 15:45 05/29/20 15:44 05/10/20 20:46 Acetaminophen/ Hydrocodone Bitart ([place] 5/325) 1 tab Q4H PRN ORAL pain 05/22/20 10:30 05/29/20 10:29 05/24/20 18:26 Alprazolam (Xanax) 0.5 mg DAILY PRN ORAL For Anxiety 05/22/20 00:30 05/29/20 00:29 05/22/20 22:13 Ascorbic Acid (Vitamin C) 500 mg NEEDED PRN ORAL Constipation 05/16/20 10:15 06/15/20 10:14 Bupropion HCl (Wellbutrin SR) 200 mg DAILY ORAL 05/19/20 09:00 06/18/20 08:59 05/24/20 08:26 Chlorhexidine Gluconate (Kathryn-Hex 2%) 1 applic DAILY@2000 TOPIC 04/27/20 20:00 07/26/20 19:59 05/24/20 20:39 Citalopram Hydrobromide (CeleXA) 40 mg DAILY ORAL 05/22/20 09:00 06/21/20 08:59 05/24/20 08:26 Dextrose (Dextrose 50%) 25 ml Q30M PRN IV Hypoglycemia 04/28/20 08:30 07/27/20 08:29 Dextrose (Dextrose 50%) 50 ml Q30M PRN IV Hypoglycemia 04/28/20 08:30 07/27/20 08:29 Folic Acid (Folate) 1 mg DAILY ORAL 04/27/20 10:30 05/27/20 10:29 05/24/20 08:26 Ketorolac Tromethamine (Toradol 30mg) 15 mg Q6H PRN IV Severe Breakthru Pain (>7) 05/23/20 14:15 05/28/20 14:14 Lidocaine HCl (Xylocaine Jelly 2%) 1 applic Q2H PRN TOPIC For Pain 05/17/20 10:00 08/15/20 09:59 05/23/20 23:12 Miconazole Nitrate (Monistat) 1 applic BEDTIME VAGIN 05/11/20 21:00 08/09/20 20:59 05/21/20 21:08 Ondansetron HCl (Zofran ODT) 4 mg AC+HS ORAL 05/23/20 11:30 06/22/20 11:29 05/24/20 20:39 Patient Own Medication (Patient's Own Med) 1 ea QHS ORAL 05/13/20 21:00 06/12/20 20:59 05/24/20 20:39 Trazodone HCl (Desyrel) 300 mg BEDTIME PRN ORAL Insomnia 05/12/20 15:00 05/27/20 20:59 05/24/20 22:00 Neurological/Psychiatric: Reports: anxiety, depressed, emotional problems Allergies: Coded Allergies: ADHESIVE TAPE (Verified Adverse Reaction, Intermediate, Rash, 08/27/19) CLEAR TAPE Objective Data Height (Feet): 5 Height (Inches): 3.00 Weight (Pounds): 139 General Appearance: WD/WN, no apparent distress Additional Comments: alert and oriented to times self, place, situation, and date. She is cooperative, pleasant, smiling appropriately. Mood is neutral. Affect is flat, mood is congruent. Thought process is linear and goal oriented. Thought content, no suicidal or homicidal ideation. Cognition is intact. Insight and judgmentair Assessment/Plan Problem List: (1) MDD (major depressive disorder) ICD Codes: F32.9 - Major depressive disorder, single episode, unspecified SNOMED: 321991465 (2) Anxiety disorder ICD Codes: F41.9 - Anxiety disorder, unspecified SNOMED: 829033113 Status: doing well, stable, progressing Assessment/Plan: welb trazadone celexa xanax the pt is reluctant to change meds Antonio Coates MD May 25, 2020 00:06
[2020-05-25] MEDS: HYDROcodone/Acetamin 5/325 tab ORAL PRN ×5 (00:08→23:15)
[2020-05-25 04:00] VITALS: BP 110/63
[2020-05-25 07:14] LABS: BASOPHILS % (AUTO) 0.9 % (0.0-2.0); HEMATOCRIT 36.2 % (37.0-47.0); HEMOGLOBIN 11.7 G/DL (12.0-16.0); MEAN CORPUSCULAR VOLUME 100 FL (80-99); MONOCYTES % (AUTO) 8.3 % (1.0-10.0); NEUTROPHILS % (AUTO) 63.9 % (45.0-75.0); PLATELET COUNT 353 K/UL (150-450); RED BLOOD COUNT 3.62 M/UL (4.20-5.40); RED CELL DISTRIBUTION WIDTH 13.5 % (11.6-14.8)
[2020-05-25 07:15] LABS: ALANINE AMINOTRANSFERASE 26 U/L (12-78); ALBUMIN 3.4 G/DL (3.4-5.0); ALBUMIN/GLOBULIN RATIO 0.8 (1.0-2.7); ALKALINE PHOSPHATASE 168 U/L (46-116); ANION GAP 5 mmol/L (5-15); ASPARTATE AMINO TRANSFERASE 21 U/L (15-37); BILIRUBIN,TOTAL 0.4 MG/DL (0.2-1.0); BLOOD UREA NITROGEN 24 mg/dL (7-18); CALCIUM 9.8 MG/DL (8.5-10.1); CARBON DIOXIDE 30 MMOL/L (21-32); CHLORIDE 104 MMOL/L (98-107); CREATININE 1.1 MG/DL (0.55-1.30); PHOSPHORUS 4.2 MG/DL (2.5-4.9); POTASSIUM 3.7 MMOL/L (3.5-5.1); SODIUM 139 MMOL/L (136-145)
[2020-05-25 08:00] VITALS: BP 122/63
--- NOTE | 2020-05-25 08:35 | Pulmonology Progress Note ---
Subjective Interval Events: None new Constitutional: Reports: fatigue; Denies: fever HEENT: Repors: no symptoms Respiratory: Reports: no symptoms Cardiovascular: Reports: no symptoms Gastrointestinal/Abdominal: Reports: other Psychiatric: Reports: depression Skin: Reports: rash Musculoskeletal: Reports: pain Allergies: Coded Allergies: ADHESIVE TAPE (Verified Adverse Reaction, Intermediate, Rash, 08/27/19) CLEAR TAPE Objective Last 24 Hour Vital Signs Date Time Temp Pulse Resp B/P (MAP) Pulse Ox O2 Delivery O2 Flow Rate FiO2 05/25/20 04:00 98.0 78 18 110/63 (79) 96 05/25/20 00:00 98.2 72 18 105/65 (78) 98 05/24/20 21:00 Room Air 05/24/20 20:00 98.4 67 16 95/62 (73) 97 05/24/20 16:00 98.8 88 18 101/66 (78) 96 05/24/20 09:00 Room Air Intake and Output 05/24/20 05/25/20 19:00 07:00 Intake Total 1011 ml 357 ml Output Total 1080 ml 1010 ml Balance -69 ml -653 ml Intake Oral 1011 ml 357 ml Output Urine Total 680 ml 750 ml Other 400 ml 260 ml # Voids 3 General Appearance: no acute distress HEENT: normocephalic Respiratory: chest wall non-tender, lungs clear Cardiovascular: normal peripheral pulses Abdomen: normal bowel sounds Laboratory Tests 05/25/20 05:40: White Blood Count 5.0, Red Blood Count 3.62L, Hemoglobin 11.7L, Hematocrit 36.2L , Mean Corpuscular Volume 100H, Mean Corpuscular Hemoglobin 32.1H, Mean Corpuscular Hemoglobin Concent 32.2, Red Cell Distribution Width 13.5, Platelet Count 353, Mean Platelet Volume 6.6, Neutrophils (%) (Auto) 63.9, Lymphocytes (% ) (Auto) 27.0, Monocytes (%) (Auto) 8.3, Eosinophils (%) (Auto) 0.0, Basophils ( %) (Auto) 0.9, Sodium Level 139, Potassium Level 3.7, Chloride Level 104, Carbon Dioxide Level 30, Anion Gap 5, Blood Urea Nitrogen 24H, Creatinine 1.1, Estimat Glomerular Filtration Rate 49.3, Glucose Level 86, Calcium Level 9.8, Phosphorus Level 4.2, Magnesium Level 1.5L, Total Bilirubin 0.4, Aspartate Amino Transf (AST/SGOT) 21, Alanine Aminotransferase (ALT/SGPT) 26, Alkaline Phosphatase 168H, Total Protein 7.9, Albumin 3.4, Globulin 4.5, Albumin/ Globulin Ratio 0.8L Current Medications Medications (Trade) Dose Ordered Sig/Jori Route PRN Reason Start Time Stop Time Status Last Admin Dose Admin Acetaminophen (Tylenol) 1,000 mg Q4H PRN GT temp>100.2 or headache 04/29/20 15:45 05/29/20 15:44 05/10/20 20:46 Acetaminophen/ Hydrocodone Bitart ([place] 5/325) 1 tab Q4H PRN ORAL pain 05/22/20 10:30 05/29/20 10:29 05/25/20 06:04 Alprazolam (Xanax) 0.5 mg DAILY PRN ORAL For Anxiety 05/22/20 00:30 05/29/20 00:29 05/22/20 22:13 Ascorbic Acid (Vitamin C) 500 mg NEEDED PRN ORAL Constipation 05/16/20 10:15 06/15/20 10:14 Bupropion HCl (Wellbutrin SR) 200 mg DAILY ORAL 05/19/20 09:00 06/18/20 08:59 05/24/20 08:26 Chlorhexidine Gluconate (Kathryn-Hex 2%) 1 applic DAILY@2000 TOPIC 04/27/20 20:00 07/26/20 19:59 05/24/20 20:39 Citalopram Hydrobromide (CeleXA) 40 mg DAILY ORAL 05/22/20 09:00 06/21/20 08:59 05/24/20 08:26 Dextrose (Dextrose 50%) 25 ml Q30M PRN IV Hypoglycemia 04/28/20 08:30 07/27/20 08:29 Dextrose (Dextrose 50%) 50 ml Q30M PRN IV Hypoglycemia 04/28/20 08:30 07/27/20 08:29 Folic Acid (Folate) 1 mg DAILY ORAL 04/27/20 10:30 05/27/20 10:29 05/24/20 08:26 Ketorolac Tromethamine (Toradol 30mg) 15 mg Q6H PRN IV Severe Breakthru Pain (>7) 05/23/20 14:15 05/28/20 14:14 Lidocaine HCl (Xylocaine Jelly 2%) 1 applic Q2H PRN TOPIC For Pain 05/17/20 10:00 08/15/20 09:59 05/23/20 23:12 Magnesium Sulfate 100 ml @ 100 mls/hr Q1H IVPB 05/25/20 08:30 05/25/20 12:29 Miconazole Nitrate (Monistat) 1 applic BEDTIME VAGIN 05/11/20 21:00 08/09/20 20:59 05/21/20 21:08 Ondansetron HCl (Zofran ODT) 4 mg AC+HS ORAL 05/23/20 11:30 06/22/20 11:29 05/24/20 20:39 Patient Own Medication (Patient's Own Med) 1 ea QHS ORAL 05/13/20 21:00 06/12/20 20:59 05/24/20 20:39 Trazodone HCl (Desyrel) 300 mg BEDTIME PRN ORAL Insomnia 05/12/20 15:00 05/27/20 20:59 05/24/20 22:00 Assessment/Plan Assessment/Plan IMPRESSION: 1. Atelectasis, right lung. 2. Postnasal drip/allergic rhinitis. 3. Status post laparotomy and lysis of adhesions. 4. Chronic pain. 5. Ulcerative colitis. DISCUSSION: Respiratory status is stable Continue present care No fever last 24 hours Zenon Montoya Omar Syed MD May 25, 2020 08:35
[2020-05-25] MEDS: Citalopram Hydrobromide 10mg Tab ORAL SCH (09:00)
[2020-05-25] MEDS: BuPROPion SR 100mg tab ORAL SCH (09:00)
[2020-05-25] MEDS: Ketorolac 30mg Inj IV PRN ×2 (09:41→20:47)
--- NOTE | 2020-05-25 11:44 | Hematology/Onc Progress Note ---
Assessment/Plan Assessment/Plan ASSESSMENT AND PLAN: # SEVERE Thrombocytopenia that is severe, on admission, plt was wnl and now dropped to 8K The patient comes in with high-grade bowel obstruction and malfunction Kock pouch continent ileostomy. The patient is status post surgery including release of the bowel obstruction. The patient was noted to have pus in small intra-abdominal abscess. It was growing out Klebsiella pneumoniae and Enterococcus. The patient has a low platele count and could be secondary to cefepime, which the patient is on. --> cefepime has been stopped, likely culprits --> as per ID antibiotics, vancomycin, Cipro, and Flagyl. --> dic panel has been ordered --> peripheral smear has been ordered as well --> hapto neg and fibrinogen 738 --> hold off steroids --> no heparin or lovenox administered recently --> duplex lower ext ordered-->neg for dvt --> transfuse 2 units plt 05/07 --> plt trend 8k-->6k->34-->73->46->60-->74-->136-->163-->293->363->375-->383-> 402 --> HIT antbody test ordered-->neg --> cr is wnl, less likely aHUS, also no schistocytes on smear noted --> also less likely iTP but is in differential ==>> consider bone marrow biopsy if labs not better # Anemia likely due to hemoldilution --> likely hemodilutional and chronic disease --> hgb trend 9.6-->9.4-->11.2-->10.3->11 # The patient has a history of Kock pouch continent ileostomy. # History of ulcerative colitis. # History of multiple abdominal surgeries. # History of spine surgery. # History of parathyroid adenoma. # History of proctocolectomy. # History of laparotomy. The timing of this note does not necessarily reflect the time of the patient was seen. Greatly appreciate consultation. Subjective Constitutional: Denies: no symptoms, chills, fever, malaise, weakness, other HEENT: Denies: no symptoms, eye pain, blurred vision, tearing, double vision, ear pain, ear discharge, nose pain, nose congestion, throat pain, throat swelling, mouth pain, mouth swelling, other Cardiovascular: Denies: no symptoms, chest pain, edema, irregular heart rate, lightheadedness, palpitations, syncope, other Respiratory: Denies: no symptoms, cough, shortness of breath, SOB with excertion, SOB at rest, sputum, wheezing, other Gastrointestinal/Abdominal: Denies: no symptoms, abdomen distended, abdominal pain, black stools, tarry stools, blood in stool, constipated, diarrhea, difficulty swallowing, nausea, poor appetite, poor fluid intake, rectal bleeding , vomiting, other Neurologic/Psychiatric: Denies: no symptoms, anxiety, depressed, emotional problems, headache, numbness, paresthesia, pre-existing deficit, seizure, tingling, tremors, weakness, other Endocrine: Denies: no symptoms, excessive sweating, flushing, intolerance to cold, intolerance to heat, increased hunger, increased thirst, increased urine, unexplained weight gain, unexplained weight loss, other Hematologic/Lymphatic: Denies: no symptoms, anemia, easy bleeding, easy bruising, adenopathy, other Allergies: Coded Allergies: ADHESIVE TAPE (Verified Adverse Reaction, Intermediate, Rash, 08/27/19) CLEAR TAPE Subjective 05/08 gtube connected, plts 6k, ordered for transfusion, consider ahus as well, will get hit ab test 05/10 plt is 73, no bleeding, feelingbetter, holding off transfusion 05/11 labs are noted, no bleeding, plt 46k, remains on antibiotics, may consider biopsy tomorrow if labs do not improve 05/12 plt is better, gtube is clamped, no bleeding, no bleeding 05/13 platelets have briskly improved, dw pt and will hold off marrow 05/14 awake and alert, new small pleural effusion, no sob 05/15 meds noted, no bleeding, dw rn, no night sweats, still with pain abdominal 05/17 meds reviewed, no bleeding, dw rn, no major changes, plt 293 05/18 labs noted, no bleeding, dw rn, no night sweats 05/19 labs are reviewed, plt 375, no bleeding, meds noted 05/20 meds noted, no bleeding, no chills, plt better 723 no bleeding no chills, no fc, hgb 10.3, no hemolysis 05/22 gtube is clamped, no night sweats, meds reviewed, no major changes 05/23 still with some mild pain, no bleeding, meds reviewed, plt better 05/24 comfortable, no new events no changes, no bleeding this am 05/25 labs are noted, no bleeding, cbc reviewed Objective Objective Current Medications Medications (Trade) Dose Ordered Sig/Jori Route PRN Reason Start Time Stop Time Status Last Admin Dose Admin Acetaminophen (Tylenol) 1,000 mg Q4H PRN GT temp>100.2 or headache 04/29/20 15:45 05/29/20 15:44 05/10/20 20:46 Acetaminophen/ Hydrocodone Bitart ([place] 5/325) 1 tab Q4H PRN ORAL pain 05/22/20 10:30 05/29/20 10:29 05/25/20 06:04 Alprazolam (Xanax) 0.5 mg DAILY PRN ORAL For Anxiety 05/22/20 00:30 05/29/20 00:29 05/22/20 22:13 Ascorbic Acid (Vitamin C) 500 mg NEEDED PRN ORAL Constipation 05/16/20 10:15 06/15/20 10:14 Bupropion HCl (Wellbutrin SR) 200 mg DAILY ORAL 05/19/20 09:00 06/18/20 08:59 05/25/20 09:00 Chlorhexidine Gluconate (Kathryn-Hex 2%) 1 applic DAILY@2000 TOPIC 04/27/20 20:00 07/26/20 19:59 05/24/20 20:39 Citalopram Hydrobromide (CeleXA) 40 mg DAILY ORAL 05/22/20 09:00 06/21/20 08:59 05/25/20 09:00 Dextrose (Dextrose 50%) 25 ml Q30M PRN IV Hypoglycemia 04/28/20 08:30 07/27/20 08:29 Dextrose (Dextrose 50%) 50 ml Q30M PRN IV Hypoglycemia 04/28/20 08:30 07/27/20 08:29 Folic Acid (Folate) 1 mg DAILY ORAL 04/27/20 10:30 05/27/20 10:29 05/25/20 09:00 Ketorolac Tromethamine (Toradol 30mg) 15 mg Q6H PRN IV Severe Breakthru Pain (>7) 05/23/20 14:15 05/28/20 14:14 05/25/20 09:41 Lidocaine HCl (Xylocaine Jelly 2%) 1 applic Q2H PRN TOPIC For Pain 05/17/20 10:00 08/15/20 09:59 05/23/20 23:12 Magnesium Sulfate 100 ml @ 100 mls/hr Q1H IVPB 05/25/20 08:30 05/25/20 12:29 05/25/20 10:29 Miconazole Nitrate (Monistat) 1 applic BEDTIME VAGIN 05/11/20 21:00 08/09/20 20:59 05/21/20 21:08 Ondansetron HCl (Zofran ODT) 4 mg AC+HS ORAL 05/23/20 11:30 06/22/20 11:29 05/24/20 20:39 Patient Own Medication (Patient's Own Med) 1 ea QHS ORAL 05/13/20 21:00 06/12/20 20:59 05/24/20 20:39 Trazodone HCl (Desyrel) 300 mg BEDTIME PRN ORAL Insomnia 05/12/20 15:00 05/27/20 20:59 05/24/20 22:00 Last 24 Hour Vital Signs Date Time Temp Pulse Resp B/P (MAP) Pulse Ox O2 Delivery O2 Flow Rate FiO2 05/25/20 10:11 98.0 05/25/20 08:00 97.8 76 17 122/63 (82) 95 05/25/20 04:00 98.0 78 18 110/63 (79) 96 05/25/20 00:00 98.2 72 18 105/65 (78) 98 05/24/20 21:00 Room Air 05/24/20 20:00 98.4 67 16 95/62 (73) 97 05/24/20 16:00 98.8 88 18 101/66 (78) 96 05/24/20 09:00 Room Air 05/24/20 08:00 98.9 79 18 120/63 (82) 95 05/24/20 04:00 98.4 83 18 114/55 (74) 96 05/24/20 00:00 98.2 79 18 121/64 (83) 95 05/23/20 21:00 Room Air 05/23/20 20:00 98.4 83 18 116/62 (80) 96 05/23/20 16:00 98.8 84 17 120/63 (82) 95 05/23/20 12:00 98.2 82 19 125/69 (87) 95 Intake and Output 05/24/20 05/25/20 19:00 07:00 Intake Total 1011 ml 357 ml Output Total 1080 ml 1010 ml Balance -69 ml -653 ml Intake Oral 1011 ml 357 ml Output Urine Total 680 ml 750 ml Other 400 ml 260 ml # Voids 3 Labs Test 05/23/20 04:00 05/25/20 05:40 White Blood Count 5.5 K/UL (4.8-10.8) 5.0 K/UL (4.8-10.8) Red Blood Count 3.45 M/UL (4.20-5.40) 3.62 M/UL (4.20-5.40) Hemoglobin 11.0 G/DL (12.0-16.0) 11.7 G/DL (12.0-16.0) Hematocrit 34.5 % (37.0-47.0) 36.2 % (37.0-47.0) Mean Corpuscular Volume 100 FL (80-99) 100 FL (80-99) Mean Corpuscular Hemoglobin 31.8 PG (27.0-31.0) 32.1 PG (27.0-31.0) Mean Corpuscular Hemoglobin Concent 31.8 G/DL (32.0-36.0) 32.2 G/DL (32.0-36.0) Red Cell Distribution Width 13.6 % (11.6-14.8) 13.5 % (11.6-14.8) Platelet Count 402 K/UL (150-450) 353 K/UL (150-450) Mean Platelet Volume 6.7 FL (6.5-10.1) 6.6 FL (6.5-10.1) Neutrophils (%) (Auto) 62.9 % (45.0-75.0) 63.9 % (45.0-75.0) Lymphocytes (%) (Auto) 27.7 % (20.0-45.0) 27.0 % (20.0-45.0) Monocytes (%) (Auto) 7.9 % (1.0-10.0) 8.3 % (1.0-10.0) Eosinophils (%) (Auto) 0.3 % (0.0-3.0) 0.0 % (0.0-3.0) Basophils (%) (Auto) 1.2 % (0.0-2.0) 0.9 % (0.0-2.0) Sodium Level 137 MMOL/L (136-145) 139 MMOL/L (136-145) Potassium Level 3.7 MMOL/L (3.5-5.1) 3.7 MMOL/L (3.5-5.1) Chloride Level 103 MMOL/L (98-107) 104 MMOL/L (98-107) Carbon Dioxide Level 28 MMOL/L (21-32) 30 MMOL/L (21-32) Anion Gap 6 mmol/L (5-15) 5 mmol/L (5-15) Blood Urea Nitrogen 22 mg/dL (7-18) 24 mg/dL (7-18) Creatinine 1.2 MG/DL (0.55-1.30) 1.1 MG/DL (0.55-1.30) Estimat Glomerular Filtration Rate 44.5 mL/min (>60) 49.3 mL/min (>60) Glucose Level 77 MG/DL (74-106) 86 MG/DL (74-106) Calcium Level 9.2 MG/DL (8.5-10.1) 9.8 MG/DL (8.5-10.1) Magnesium Level 2.1 MG/DL (1.8-2.4) 1.5 MG/DL (1.8-2.4) Total Bilirubin 0.5 MG/DL (0.2-1.0) 0.4 MG/DL (0.2-1.0) Aspartate Amino Transf (AST/SGOT) 15 U/L (15-37) 21 U/L (15-37) Alanine Aminotransferase (ALT/SGPT) 13 U/L (12-78) 26 U/L (12-78) Alkaline Phosphatase 186 U/L (46-116) 168 U/L (46-116) Total Protein 7.9 G/DL (6.4-8.2) 7.9 G/DL (6.4-8.2) Albumin 3.3 G/DL (3.4-5.0) 3.4 G/DL (3.4-5.0) Globulin 4.6 g/dL 4.5 g/dL Albumin/Globulin Ratio 0.7 (1.0-2.7) 0.8 (1.0-2.7) Phosphorus Level 4.2 MG/DL (2.5-4.9) Height (Feet): 5 Height (Inches): 3.00 Weight (Pounds): 139 Objective Physical Exam: Vitals: reviewed General: NAD HEENT: nc, at Neck: supple Chest: clear breath sounds bilaterally Cardiovascular: RRR, no s3, s4 Abdomen: soft, nontender, nd ++gtube, Kouch pouch ++ midline scar site is c/d/i Extremities: no cce, normal range of motion Neuro: alert and oriented Cecilio Grey MD May 25, 2020 11:44
[2020-05-25 12:00] VITALS: BP 143/87
--- NOTE | 2020-05-25 14:39 | General Progress Note ---
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
[2020-05-25 16:00] VITALS: BP 118/60
[2020-05-25] MEDS ORDERED: Cathflo Alteplase 2mg Inj INJ SCH (16:00)
--- NOTE | 2020-05-25 19:58 | Infectious Diseases Prog Note ---
Assessment/Plan Assessment/Plan ASSESSMENT AND PLAN: 1. ? sepsis, leukocytosis, fevers, thrombocytopenia, ? cholecystitis, ? aspiration pna/hcap vs atelectasis (favor atelectasis) klebsiella and enterococcus abscess - s/p debridement sbo, malfunctioning Kock ileostomy - s/p surgery ileus, ? bowel obstruction fungemia risk - s/p vancomycin, ciprofloxacin, flagyl and micafungin - f/u urine/blood cultures negative - improving clinically, thrombocytopenia resolved - monitor labs, no sig fevers - stable from ID standpoint - will sign off, call if any questions - thank you 2. The patient has a history of Kock pouch continent ileostomy. 3. History of ulcerative colitis. 4. History of multiple abdominal surgeries. 5. History of spine surgery. 6. History of parathyroid adenoma. 7. History of proctocolectomy. 8. History of laparotomy. 9. Anemia. 10. Thrombocytopenia. 11. Allergies to adhesive tape. 12. Social history is negative. 13. Family history is noncontributory. 14. MAR is noted. 15. Case was discussed with RN. 16. Continue treatment per Dr. Meadows and consultants. 17. I will follow. Subjective Constitutional: Denies: fever HEENT: Denies: congestion Respiratory: Denies: shortness of breath Cardiovascular: Denies: chest pain Gastrointestinal/Abdominal: Denies: nausea, vomiting, diarrhea Genitourinary: Reports: other - no decker Neurologic: Denies: headache Psychiatric: Denies: depression Skin: Denies: rash Hematologic: Denies: bleeding Musculoskeletal: Denies: pain Allergies: Coded Allergies: ADHESIVE TAPE (Verified Adverse Reaction, Intermediate, Rash, 08/27/19) CLEAR TAPE Objective Last 24 Hour Vital Signs Date Time Temp Pulse Resp B/P (MAP) Pulse Ox O2 Delivery O2 Flow Rate FiO2 05/25/20 18:17 98.0 05/25/20 16:00 98.0 83 18 118/60 (79) 95 05/25/20 12:00 98.2 64 18 143/87 (105) 97 05/25/20 10:11 98.0 05/25/20 09:00 Room Air 05/25/20 08:00 97.8 76 17 122/63 (82) 95 05/25/20 04:00 98.0 78 18 110/63 (79) 96 05/25/20 00:00 98.2 72 18 105/65 (78) 98 05/24/20 21:00 Room Air 05/24/20 20:00 98.4 67 16 95/62 (73) 97 Height (Feet): 5 Height (Inches): 3.00 Weight (Pounds): 139 General Appearance: no acute distress HEENT: normocephalic, atraumatic, anicteric, mucous membranes moist Respiratory/Chest: lungs clear, normal breath sounds, no respiratory distress, no accessory muscle use Cardiovascular: normal rate, regular rhythm, no gallop/murmur, no JVD Abdomen: normal bowel sounds, soft, non tender, no organomegaly, non distended , other - incision - clean and dry Genitourinary: other - no decker Extremities: no cyanosis Skin: no rash 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 There is some persistent right perihilar atelectasis. The heart size is normal. Impression: Improved bilateral suprahilar interstitial infiltrates, over 2 days Abdominal US: Impression: Distended gallbladder with borderline wall thickening, but no gallstones. Significance uncertain. Mildly dilated common bile duct. May be age-related, downstream obstruction not completely excludable particularly in view of findings reported on recent CT scan. Correlate with liver function tests, consider MRCP for further evaluation if clinically indicated CT abdomen and pelvis - 04/27/20 - Impression: Dilated proximal small bowel loops, with another short segment of dilated mid small bowel, nondilated distal small bowel loops. Findings are concerning for small bowel obstruction. Given somewhat prominent mucosal enhancement, findings could also be due to enteritis. Trace ascites, possibly related to the above Postsurgical changes, as described. Note that the Decker catheter is deep within the reservoir but the reservoir is somewhat distended with material. Ectatic extrahepatic bile ducts. Suspect age-related is this is unchanged from the prior study. Correlate with liver function tests Nonspecific prominent retroperitoneal lymph nodes Findings discussed by phone with Dr. Meadows at the time of interpretation KUB - 05/08/20 - FINDINGS/IMPRESSION: Multiple, mildly prominent loops of colon which may correlate with postoperative ileus. No large volume free intraperitoneal air. Extensive suture line within the pelvis and right lower quadrant, correlate with surgical history. Midline cutaneous skin lu. The lung bases are clear. Degenerative changes of the spine. Chest x-ray - 05/14/20 - Procedure: XRAY Chest 1v Indication: Cough Technique: One view of the chest Comparison: 05/07/2020 Findings: There is small left pleural effusion. Previously demonstrated right perihilar atelectasis is no longer evident. No new infiltrates. The heart size is normal. There is a right arm PICC. Impression: New small left pleural effusion. Resolved right perihilar atelectasis. Otherwise little change since prior study of 7 days earlier Microbiology Date/Time Source Procedure Growth Status 05/14/20 11:35 Blood Blood Culture - Final NO GROWTH AFTER 5 DAYS Complete 04/27/20 11:13 Nasopharynx SARS-CoV-2 RdRp Gene Assay - Final Complete 05/14/20 14:55 Urine,Clean Catch Urine Culture - Final NO GROWTH AFTER 48 HOURS Complete 04/29/20 14:48 Abdomen Gram Stain - Final Complete 04/29/20 14:48 Aerobic Culture - Final Klebsiella Pneumoniae Enterococcus Faecalis Complete 04/29/20 14:48 Abdomen Anaerobic Culture - Final NO ANAEROBES ISOLATED Complete Laboratory Tests Test 05/25/20 05:40 White Blood Count 5.0 K/UL (4.8-10.8) Red Blood Count 3.62 M/UL (4.20-5.40) L Hemoglobin 11.7 G/DL (12.0-16.0) L Hematocrit 36.2 % (37.0-47.0) L Mean Corpuscular Volume 100 FL (80-99) H Mean Corpuscular Hemoglobin 32.1 PG (27.0-31.0) H Mean Corpuscular Hemoglobin Concent 32.2 G/DL (32.0-36.0) Red Cell Distribution Width 13.5 % (11.6-14.8) Platelet Count 353 K/UL (150-450) Mean Platelet Volume 6.6 FL (6.5-10.1) Neutrophils (%) (Auto) 63.9 % (45.0-75.0) Lymphocytes (%) (Auto) 27.0 % (20.0-45.0) Monocytes (%) (Auto) 8.3 % (1.0-10.0) Eosinophils (%) (Auto) 0.0 % (0.0-3.0) Basophils (%) (Auto) 0.9 % (0.0-2.0) Sodium Level 139 MMOL/L (136-145) Potassium Level 3.7 MMOL/L (3.5-5.1) Chloride Level 104 MMOL/L (98-107) Carbon Dioxide Level 30 MMOL/L (21-32) Anion Gap 5 mmol/L (5-15) Blood Urea Nitrogen 24 mg/dL (7-18) H Creatinine 1.1 MG/DL (0.55-1.30) Estimat Glomerular Filtration Rate 49.3 mL/min (>60) Glucose Level 86 MG/DL (74-106) Calcium Level 9.8 MG/DL (8.5-10.1) Phosphorus Level 4.2 MG/DL (2.5-4.9) Magnesium Level 1.5 MG/DL (1.8-2.4) L Total Bilirubin 0.4 MG/DL (0.2-1.0) Aspartate Amino Transf (AST/SGOT) 21 U/L (15-37) Alanine Aminotransferase (ALT/SGPT) 26 U/L (12-78) Alkaline Phosphatase 168 U/L (46-116) H Total Protein 7.9 G/DL (6.4-8.2) Albumin 3.4 G/DL (3.4-5.0) Globulin 4.5 g/dL Albumin/Globulin Ratio 0.8 (1.0-2.7) L Current Medications Medications (Trade) Dose Ordered Sig/Jori Route PRN Reason Start Time Stop Time Status Last Admin Dose Admin Acetaminophen (Tylenol) 1,000 mg Q4H PRN GT temp>100.2 or headache 04/29/20 15:45 05/29/20 15:44 05/10/20 20:46 Acetaminophen/ Hydrocodone Bitart ([place] 5/325) 1 tab Q4H PRN ORAL pain 05/22/20 10:30 05/29/20 10:29 05/25/20 17:47 Alprazolam (Xanax) 0.5 mg DAILY PRN ORAL For Anxiety 05/22/20 00:30 05/29/20 00:29 05/22/20 22:13 Ascorbic Acid (Vitamin C) 500 mg NEEDED PRN ORAL Constipation 05/16/20 10:15 06/15/20 10:14 Bupropion HCl (Wellbutrin SR) 200 mg DAILY ORAL 05/19/20 09:00 06/18/20 08:59 05/25/20 09:00 Chlorhexidine Gluconate (Kathryn-Hex 2%) 1 applic DAILY@2000 TOPIC 04/27/20 20:00 07/26/20 19:59 05/24/20 20:39 Citalopram Hydrobromide (CeleXA) 40 mg DAILY ORAL 05/22/20 09:00 06/21/20 08:59 05/25/20 09:00 Dextrose (Dextrose 50%) 25 ml Q30M PRN IV Hypoglycemia 04/28/20 08:30 07/27/20 08:29 Dextrose (Dextrose 50%) 50 ml Q30M PRN IV Hypoglycemia 04/28/20 08:30 07/27/20 08:29 Folic Acid (Folate) 1 mg DAILY ORAL 04/27/20 10:30 05/27/20 10:29 05/25/20 09:00 Ketorolac Tromethamine (Toradol 30mg) 15 mg Q6H PRN IV Severe Breakthru Pain (>7) 05/23/20 14:15 05/28/20 14:14 05/25/20 09:41 Lidocaine HCl (Xylocaine Jelly 2%) 1 applic Q2H PRN TOPIC For Pain 05/17/20 10:00 08/15/20 09:59 05/23/20 23:12 Miconazole Nitrate (Monistat) 1 applic BEDTIME VAGIN 05/11/20 21:00 08/09/20 20:59 05/21/20 21:08 Ondansetron HCl (Zofran ODT) 4 mg AC+HS ORAL 05/23/20 11:30 06/22/20 11:29 05/25/20 17:40 Patient Own Medication (Patient's Own Med) 1 ea QHS ORAL 05/13/20 21:00 06/12/20 20:59 05/24/20 20:39 Trazodone HCl (Desyrel) 300 mg BEDTIME PRN ORAL Insomnia 05/12/20 15:00 05/27/20 20:59 05/24/20 22:00 Osmin Bermudez MD May 25, 2020 19:58
[2020-05-25 20:00] VITALS: BP 108/57
[2020-05-25] MEDS: Dyna-Hex 2% Top Sol 2oz TOPIC SCH (20:35)
[2020-05-25] MEDS: MYRBETRIQ 50 MG ORAL SCH (20:35)
[2020-05-25] MEDS: Miconazole Vag Cr 45gm Tube (100mg per applicator) VAGIN SCH (20:36)
[2020-05-25] MEDS: TraZODone 100mg tab ORAL PRN (22:08)
[2020-05-26] VITALS: BP 102/58
[2020-05-26 04:00] VITALS: BP 109/61
[2020-05-26 08:00] VITALS: BP 134/69
[2020-05-26] MEDS: BuPROPion SR 100mg tab ORAL SCH (08:28)
[2020-05-26] MEDS: Citalopram Hydrobromide 10mg Tab ORAL SCH (08:29)
[2020-05-26] MEDS: HYDROcodone/Acetamin 5/325 tab ORAL PRN ×3 (08:59→21:56)
[2020-05-26 12:00] VITALS: BP 90/54
--- NOTE | 2020-05-26 12:03 | Pulmonology Progress Note ---
Subjective Interval Events: None new Constitutional: Denies: fever HEENT: Repors: no symptoms Respiratory: Reports: no symptoms Cardiovascular: Reports: no symptoms Gastrointestinal/Abdominal: Denies: nausea, vomiting, diarrhea Psychiatric: Denies: depression Skin: Denies: rash Musculoskeletal: Denies: pain Allergies: Coded Allergies: ADHESIVE TAPE (Verified Adverse Reaction, Intermediate, Rash, 08/27/19) CLEAR TAPE Objective Last 24 Hour Vital Signs Date Time Temp Pulse Resp B/P (MAP) Pulse Ox O2 Delivery O2 Flow Rate FiO2 05/26/20 09:29 98.6 05/26/20 09:00 Room Air 05/26/20 08:00 97.3 78 18 134/69 (90) 98 05/26/20 04:00 98.6 78 18 109/61 (77) 96 05/26/20 00:00 98.3 89 18 102/58 (73) 96 05/25/20 21:00 Room Air 05/25/20 20:00 99.0 83 17 108/57 (74) 95 05/25/20 16:00 98.0 83 18 118/60 (79) 95 Intake and Output 05/25/20 05/26/20 19:00 07:00 Intake Total 750 ml 440 ml Output Total 695 ml 595 ml Balance 55 ml -155 ml Intake Oral 750 ml 440 ml Output Urine Total 475 ml 200 ml Other 220 ml 395 ml # Voids 3 1 General Appearance: no acute distress HEENT: normocephalic Respiratory: chest wall non-tender, lungs clear Cardiovascular: normal peripheral pulses Abdomen: normal bowel sounds Laboratory Tests 05/26/20 05:48: Magnesium Level 1.9 Current Medications Medications (Trade) Dose Ordered Sig/Jori Route PRN Reason Start Time Stop Time Status Last Admin Dose Admin Acetaminophen (Tylenol) 1,000 mg Q4H PRN GT temp>100.2 or headache 04/29/20 15:45 05/29/20 15:44 05/10/20 20:46 Acetaminophen/ Hydrocodone Bitart ([place] 5/325) 1 tab Q4H PRN ORAL pain 05/22/20 10:30 05/29/20 10:29 05/26/20 08:59 Alprazolam (Xanax) 0.5 mg DAILY PRN ORAL For Anxiety 05/22/20 00:30 05/29/20 00:29 05/22/20 22:13 Ascorbic Acid (Vitamin C) 500 mg NEEDED PRN ORAL Constipation 05/16/20 10:15 06/15/20 10:14 Bupropion HCl (Wellbutrin SR) 200 mg DAILY ORAL 05/19/20 09:00 06/18/20 08:59 05/26/20 08:28 Chlorhexidine Gluconate (Kathryn-Hex 2%) 1 applic DAILY@2000 TOPIC 04/27/20 20:00 07/26/20 19:59 05/25/20 20:35 Citalopram Hydrobromide (CeleXA) 40 mg DAILY ORAL 05/22/20 09:00 06/21/20 08:59 05/26/20 08:29 Dextrose (Dextrose 50%) 25 ml Q30M PRN IV Hypoglycemia 04/28/20 08:30 07/27/20 08:29 Dextrose (Dextrose 50%) 50 ml Q30M PRN IV Hypoglycemia 04/28/20 08:30 07/27/20 08:29 Folic Acid (Folate) 1 mg DAILY ORAL 04/27/20 10:30 05/27/20 10:29 05/26/20 08:29 Ketorolac Tromethamine (Toradol 30mg) 15 mg Q6H PRN IV Severe Breakthru Pain (>7) 05/23/20 14:15 05/28/20 14:14 05/25/20 20:47 Lidocaine HCl (Xylocaine Jelly 2%) 1 applic Q2H PRN TOPIC For Pain 05/17/20 10:00 08/15/20 09:59 05/23/20 23:12 Magnesium Sulfate 100 ml @ 100 mls/hr Q1H IVPB 05/26/20 08:15 05/26/20 12:14 05/26/20 11:00 Miconazole Nitrate (Monistat) 1 applic BEDTIME VAGIN 05/11/20 21:00 08/09/20 20:59 05/21/20 21:08 Ondansetron HCl (Zofran ODT) 4 mg AC+HS ORAL 05/23/20 11:30 06/22/20 11:29 05/26/20 10:27 Patient Own Medication (Patient's Own Med) 1 ea QHS ORAL 05/13/20 21:00 06/12/20 20:59 05/25/20 20:35 Trazodone HCl (Desyrel) 300 mg BEDTIME PRN ORAL Insomnia 05/12/20 15:00 05/27/20 20:59 05/25/20 22:08 Assessment/Plan Assessment/Plan IMPRESSION: 1. Atelectasis, right lung. 2. Postnasal drip/allergic rhinitis. 3. Status post laparotomy and lysis of adhesions. 4. Chronic pain. 5. Ulcerative colitis. DISCUSSION: Respiratory status is stable Continue present care No fever last 24 hours Zenon Montoya Omar Syed MD May 26, 2020 12:03
--- NOTE | 2020-05-26 12:44 | Hematology/Onc Progress Note ---
Assessment/Plan Assessment/Plan ASSESSMENT AND PLAN: # SEVERE Thrombocytopenia that is severe, on admission, plt was wnl and now dropped to 8K The patient comes in with high-grade bowel obstruction and malfunction Kock pouch continent ileostomy. The patient is status post surgery including release of the bowel obstruction. The patient was noted to have pus in small intra-abdominal abscess. It was growing out Klebsiella pneumoniae and Enterococcus. The patient has a low platele count and could be secondary to cefepime, which the patient is on. --> cefepime has been stopped, likely culprits --> as per ID antibiotics, vancomycin, Cipro, and Flagyl. --> dic panel has been ordered --> peripheral smear has been ordered as well --> hapto neg and fibrinogen 738 --> hold off steroids --> no heparin or lovenox administered recently --> duplex lower ext ordered-->neg for dvt --> transfuse 2 units plt 05/07 --> plt trend 8k-->6k->34-->73->46->60-->74-->136-->163-->293->363->375-->383-> 402 --> HIT antbody test ordered-->neg --> cr is wnl, less likely aHUS, also no schistocytes on smear noted --> also less likely iTP but is in differential ==>> consider bone marrow biopsy if labs not better # Anemia likely due to hemoldilution --> likely hemodilutional and chronic disease --> hgb trend 9.6-->9.4-->11.2-->10.3->11 # The patient has a history of Kock pouch continent ileostomy. # History of ulcerative colitis. # History of multiple abdominal surgeries. # History of spine surgery. # History of parathyroid adenoma. # History of proctocolectomy. # History of laparotomy. The timing of this note does not necessarily reflect the time of the patient was seen. Greatly appreciate consultation. Subjective Constitutional: Denies: no symptoms, chills, fever, malaise, weakness, other Cardiovascular: Denies: no symptoms, chest pain, edema, irregular heart rate, lightheadedness, palpitations, syncope, other Respiratory: Denies: no symptoms, cough, shortness of breath, SOB with excertion, SOB at rest, sputum, wheezing, other Gastrointestinal/Abdominal: Denies: no symptoms, abdomen distended, abdominal pain, black stools, tarry stools, blood in stool, constipated, diarrhea, difficulty swallowing, nausea, poor appetite, poor fluid intake, rectal bleeding , vomiting, other Endocrine: Denies: no symptoms, excessive sweating, flushing, intolerance to cold, intolerance to heat, increased hunger, increased thirst, increased urine, unexplained weight gain, unexplained weight loss, other Hematologic/Lymphatic: Denies: no symptoms, anemia, easy bleeding, easy bruising, adenopathy, other Allergies: Coded Allergies: ADHESIVE TAPE (Verified Adverse Reaction, Intermediate, Rash, 08/27/19) CLEAR TAPE Subjective 05/08 gtube connected, plts 6k, ordered for transfusion, consider ahus as well, will get hit ab test 05/10 plt is 73, no bleeding, feelingbetter, holding off transfusion 05/11 labs are noted, no bleeding, plt 46k, remains on antibiotics, may consider biopsy tomorrow if labs do not improve 05/12 plt is better, gtube is clamped, no bleeding, no bleeding 05/13 platelets have briskly improved, dw pt and will hold off marrow 05/14 awake and alert, new small pleural effusion, no sob 05/15 meds noted, no bleeding, dw rn, no night sweats, still with pain abdominal 05/17 meds reviewed, no bleeding, dw rn, no major changes, plt 293 05/18 labs noted, no bleeding, dw rn, no night sweats 05/19 labs are reviewed, plt 375, no bleeding, meds noted 05/20 meds noted, no bleeding, no chills, plt better 723 no bleeding no chills, no fc, hgb 10.3, no hemolysis 05/22 gtube is clamped, no night sweats, meds reviewed, no major changes 05/23 still with some mild pain, no bleeding, meds reviewed, plt better 05/24 comfortable, no new events no changes, no bleeding this am 05/25 labs are noted, no bleeding, cbc reviewed 05/26 is comfortable, no bleeding, cbc noted, no night sweats Objective Objective Current Medications Medications (Trade) Dose Ordered Sig/Jori Route PRN Reason Start Time Stop Time Status Last Admin Dose Admin Acetaminophen (Tylenol) 1,000 mg Q4H PRN GT temp>100.2 or headache 04/29/20 15:45 05/29/20 15:44 05/10/20 20:46 Acetaminophen/ Hydrocodone Bitart ([place] 5/325) 1 tab Q4H PRN ORAL pain 05/22/20 10:30 05/29/20 10:29 05/26/20 08:59 Alprazolam (Xanax) 0.5 mg DAILY PRN ORAL For Anxiety 05/22/20 00:30 05/29/20 00:29 05/22/20 22:13 Ascorbic Acid (Vitamin C) 500 mg NEEDED PRN ORAL Constipation 05/16/20 10:15 06/15/20 10:14 Bupropion HCl (Wellbutrin SR) 200 mg DAILY ORAL 05/19/20 09:00 06/18/20 08:59 05/26/20 08:28 Chlorhexidine Gluconate ([place]-Hex 2%) 1 applic DAILY@2000 TOPIC 04/27/20 20:00 07/26/20 19:59 05/25/20 20:35 Citalopram Hydrobromide (CeleXA) 40 mg DAILY ORAL 05/22/20 09:00 06/21/20 08:59 05/26/20 08:29 Dextrose (Dextrose 50%) 25 ml Q30M PRN IV Hypoglycemia 04/28/20 08:30 07/27/20 08:29 Dextrose (Dextrose 50%) 50 ml Q30M PRN IV Hypoglycemia 04/28/20 08:30 07/27/20 08:29 Folic Acid (Folate) 1 mg DAILY ORAL 04/27/20 10:30 05/27/20 10:29 05/26/20 08:29 Ketorolac Tromethamine (Toradol 30mg) 15 mg Q6H PRN IV Severe Breakthru Pain (>7) 05/23/20 14:15 05/28/20 14:14 05/25/20 20:47 Lidocaine HCl (Xylocaine Jelly 2%) 1 applic Q2H PRN TOPIC For Pain 05/17/20 10:00 08/15/20 09:59 05/23/20 23:12 Miconazole Nitrate (Monistat) 1 applic BEDTIME VAGIN 05/11/20 21:00 10/11/20 20:59 05/21/20 21:08 Ondansetron HCl (Zofran ODT) 4 mg AC+HS ORAL 05/23/20 11:30 06/22/20 11:29 05/26/20 10:27 Patient Own Medication (Patient's Own Med) 1 ea QHS ORAL 05/13/20 21:00 06/12/20 20:59 05/25/20 20:35 Trazodone HCl (Desyrel) 300 mg BEDTIME PRN ORAL Insomnia 05/12/20 15:00 05/27/20 20:59 05/25/20 22:08 Last 24 Hour Vital Signs Date Time Temp Pulse Resp B/P (MAP) Pulse Ox O2 Delivery O2 Flow Rate FiO2 05/26/20 09:29 98.6 05/26/20 09:00 Room Air 05/26/20 08:00 97.3 78 18 134/69 (90) 98 05/26/20 04:00 98.6 78 18 109/61 (77) 96 05/26/20 00:00 98.3 89 18 102/58 (73) 96 05/25/20 21:00 Room Air 05/25/20 20:00 99.0 83 17 108/57 (74) 95 05/25/20 16:00 98.0 83 18 118/60 (79) 95 05/25/20 12:00 98.2 64 18 143/87 (105) 97 05/25/20 10:11 98.0 05/25/20 09:00 Room Air 05/25/20 08:00 97.8 76 17 122/63 (82) 95 05/25/20 04:00 98.0 78 18 110/63 (79) 96 05/25/20 00:00 98.2 72 18 105/65 (78) 98 05/24/20 21:00 Room Air 05/24/20 20:00 98.4 67 16 95/62 (73) 97 05/24/20 16:00 98.8 88 18 101/66 (78) 96 Intake and Output 05/25/20 05/26/20 19:00 07:00 Intake Total 750 ml 440 ml Output Total 695 ml 595 ml Balance 55 ml -155 ml Intake Oral 750 ml 440 ml Output Urine Total 475 ml 200 ml Other 220 ml 395 ml # Voids 3 1 Labs Test 05/25/20 05:40 05/26/20 05:48 White Blood Count 5.0 K/UL (4.8-10.8) Red Blood Count 3.62 M/UL (4.20-5.40) Hemoglobin 11.7 G/DL (12.0-16.0) Hematocrit 36.2 % (37.0-47.0) Mean Corpuscular Volume 100 FL (80-99) Mean Corpuscular Hemoglobin 32.1 PG (27.0-31.0) Mean Corpuscular Hemoglobin Concent 32.2 G/DL (32.0-36.0) Red Cell Distribution Width 13.5 % (11.6-14.8) Platelet Count 353 K/UL (150-450) Mean Platelet Volume 6.6 FL (6.5-10.1) Neutrophils (%) (Auto) 63.9 % (45.0-75.0) Lymphocytes (%) (Auto) 27.0 % (20.0-45.0) Monocytes (%) (Auto) 8.3 % (1.0-10.0) Eosinophils (%) (Auto) 0.0 % (0.0-3.0) Basophils (%) (Auto) 0.9 % (0.0-2.0) Sodium Level 139 MMOL/L (136-145) Potassium Level 3.7 MMOL/L (3.5-5.1) Chloride Level 104 MMOL/L (98-107) Carbon Dioxide Level 30 MMOL/L (21-32) Anion Gap 5 mmol/L (5-15) Blood Urea Nitrogen 24 mg/dL (7-18) Creatinine 1.1 MG/DL (0.55-1.30) Estimat Glomerular Filtration Rate 49.3 mL/min (>60) Glucose Level 86 MG/DL (74-106) Calcium Level 9.8 MG/DL (8.5-10.1) Phosphorus Level 4.2 MG/DL (2.5-4.9) Magnesium Level 1.5 MG/DL (1.8-2.4) 1.9 MG/DL (1.8-2.4) Total Bilirubin 0.4 MG/DL (0.2-1.0) Aspartate Amino Transf (AST/SGOT) 21 U/L (15-37) Alanine Aminotransferase (ALT/SGPT) 26 U/L (12-78) Alkaline Phosphatase 168 U/L (46-116) Total Protein 7.9 G/DL (6.4-8.2) Albumin 3.4 G/DL (3.4-5.0) Globulin 4.5 g/dL Albumin/Globulin Ratio 0.8 (1.0-2.7) Height (Feet): 5 Height (Inches): 3.00 Weight (Pounds): 139 Objective Physical Exam: Vitals: reviewed General: NAD HEENT: nc, at Neck: supple Chest: clear breath sounds bilaterally Cardiovascular: RRR, no s3, s4 Abdomen: soft, nontender, nd ++gtube, Kouch pouch ++ midline scar site is c/d/i Extremities: no cce, normal range of motion Neuro: alert and oriented Cecilio Grey MD May 26, 2020 12:44
[2020-05-26 16:00] VITALS: BP 115/65
[2020-05-26] MEDS ORDERED: Fluconazole 150mg tab ORAL SCH (17:00)
[2020-05-26 17:28] LABS: APPEARANCE,URINE SLIGHTLY CLOUDY; BILIRUBIN, URINE NEGATIVE (NEGATIVE); COLOR,URINE YELLOW; GLUCOSE, URINE (UA) NEGATIVE (NEGATIVE); KETONES,URINE NEGATIVE (NEGATIVE); LEUKOCYTE ESTERASE ,URINE 1+ (NEGATIVE); NITRITE,URINE NEGATIVE (NEGATIVE); PH,URINE 5 (4.5-8.0); PROTEIN,URINE NEGATIVE (NEGATIVE); UROBILINOGEN,URINE NORMAL MG/DL (0.0-1.0)
[2020-05-26] MEDS: Ketorolac 30mg Inj IV PRN (18:58)
[2020-05-26 20:00] VITALS: BP 103/50
[2020-05-26] MEDS: Dyna-Hex 2% Top Sol 2oz TOPIC SCH (20:37)
[2020-05-26] MEDS: MICONAZOLE VAGIN SCH (20:38)
[2020-05-26] MEDS: MYRBETRIQ 50 MG ORAL SCH (20:39)
--- NOTE | 2020-05-26 22:30 | Psych Consult Progress Note ---
Psychiatry Progress Note Psychiatry Progress Note Subjective the pt is doing well no ad the pt sleeping better and less anxious Medications Current Medications Medications (Trade) Dose Ordered Sig/Jori Route PRN Reason Start Time Stop Time Status Last Admin Dose Admin Acetaminophen (Tylenol) 1,000 mg Q4H PRN GT temp>100.2 or headache 04/29/20 15:45 05/29/20 15:44 05/10/20 20:46 Acetaminophen/ Hydrocodone Bitart ([place] 5/325) 1 tab Q4H PRN ORAL pain 05/22/20 10:30 05/29/20 10:29 05/26/20 21:56 Alprazolam (Xanax) 0.5 mg DAILY PRN ORAL For Anxiety 05/22/20 00:30 05/29/20 00:29 05/22/20 22:13 Ascorbic Acid (Vitamin C) 500 mg NEEDED PRN ORAL Constipation 05/16/20 10:15 06/15/20 10:14 Bupropion HCl (Wellbutrin SR) 200 mg DAILY ORAL 05/19/20 09:00 06/18/20 08:59 05/26/20 08:28 Chlorhexidine Gluconate (Kathryn-Hex 2%) 1 applic DAILY@2000 TOPIC 04/27/20 20:00 07/26/20 19:59 05/26/20 20:37 Citalopram Hydrobromide (CeleXA) 40 mg DAILY ORAL 05/22/20 09:00 06/21/20 08:59 05/26/20 08:29 Dextrose (Dextrose 50%) 25 ml Q30M PRN IV Hypoglycemia 04/28/20 08:30 07/27/20 08:29 Dextrose (Dextrose 50%) 50 ml Q30M PRN IV Hypoglycemia 04/28/20 08:30 07/27/20 08:29 Folic Acid (Folate) 1 mg DAILY ORAL 04/27/20 10:30 05/27/20 10:29 05/26/20 08:29 Ketorolac Tromethamine (Toradol 30mg) 15 mg Q6H PRN IV Severe Breakthru Pain (>7) 05/23/20 14:15 05/28/20 14:14 05/26/20 18:58 Lidocaine HCl (Xylocaine Jelly 2%) 1 applic Q2H PRN TOPIC For Pain 05/17/20 10:00 08/15/20 09:59 05/23/20 23:12 Miconazole Nitrate (Monistat) 100 mg BEDTIME VAGIN 05/26/20 21:00 08/24/20 20:59 05/26/20 20:38 Ondansetron HCl (Zofran ODT) 4 mg AC+HS ORAL 05/23/20 11:30 06/22/20 11:29 05/26/20 20:37 Patient Own Medication (Patient's Own Med) 1 ea QHS ORAL 05/13/20 21:00 06/12/20 20:59 05/26/20 20:39 Trazodone HCl (Desyrel) 300 mg BEDTIME PRN ORAL Insomnia 05/12/20 15:00 05/27/20 20:59 05/25/20 22:08 Allergies: Coded Allergies: ADHESIVE TAPE (Verified Adverse Reaction, Intermediate, Rash, 08/27/19) CLEAR TAPE Objective Data Height (Feet): 5 Height (Inches): 3.00 Weight (Pounds): 139 General Appearance: WD/WN, no apparent distress, alert, alert oriented x3 Additional Comments: awake, and oriented. Mood is anxious. Affect is flat. Thought process, concrete. Thought content, no suicidal or homicidal ideation. Cognition is intact Insight and judgment is air. Assessment/Plan Problem List: (1) MDD (major depressive disorder) ICD Codes: F32.9 - Major depressive disorder, single episode, unspecified SNOMED: 383667313 (2) Anxiety disorder ICD Codes: F41.9 - Anxiety disorder, unspecified SNOMED: 726808311 Status: doing well, stable, progressing Assessment/Plan: welb trazadone celexa xanax the pt is reluctant to change meds Antonio Coates MD May 26, 2020 22:30
[2020-05-26] MEDS: TraZODone 100mg tab ORAL PRN (23:39)
[2020-05-27] VITALS: BP 103/59
[2020-05-27 04:00] VITALS: BP 110/58
[2020-05-27] MEDS: HYDROcodone/Acetamin 5/325 tab ORAL PRN ×4 (04:53→20:53)
[2020-05-27 08:00] VITALS: BP 107/61
[2020-05-27] MEDS: BuPROPion SR 100mg tab ORAL SCH (08:45)
[2020-05-27] MEDS: Citalopram Hydrobromide 10mg Tab ORAL SCH (09:38)
--- NOTE | 2020-05-27 10:45 | Pulmonology Progress Note ---
Subjective Interval Events: None new Constitutional: Denies: fever HEENT: Repors: no symptoms Respiratory: Reports: no symptoms Cardiovascular: Reports: no symptoms Gastrointestinal/Abdominal: Denies: nausea, vomiting, diarrhea Psychiatric: Denies: depression Skin: Denies: rash Musculoskeletal: Denies: pain Allergies: Coded Allergies: ADHESIVE TAPE (Verified Adverse Reaction, Intermediate, Rash, 08/27/19) CLEAR TAPE Objective Last 24 Hour Vital Signs Date Time Temp Pulse Resp B/P (MAP) Pulse Ox O2 Delivery O2 Flow Rate FiO2 05/27/20 08:00 97.4 77 18 107/61 (76) 96 05/27/20 05:23 98.2 05/27/20 04:00 98.0 84 18 110/58 (75) 98 05/27/20 00:00 98.2 84 18 103/59 (74) 97 05/26/20 21:00 Room Air 05/26/20 20:00 99.3 17 103/50 (67) 96 05/26/20 19:28 98.2 05/26/20 16:00 98.6 21 115/65 (82) 98 05/26/20 12:00 98.9 96 20 90/54 (66) 97 Intake and Output 05/26/20 05/27/20 19:00 07:00 Intake Total 950 ml 400 ml Output Total 1040 ml 900 ml Balance -90 ml -500 ml Intake Oral 950 ml 400 ml Output Urine Total 700 ml 600 ml Other 340 ml 300 ml # Voids 4 3 General Appearance: no acute distress HEENT: normocephalic Respiratory: chest wall non-tender, lungs clear Cardiovascular: normal peripheral pulses Abdomen: normal bowel sounds Microbiology Date/Time Source Procedure Growth Status 05/26/20 17:10 Urine,Clean Catch Urine Culture - Preliminary NO GROWTH Resulted Laboratory Tests 05/26/20 17:10: Urine Color Yellow, Urine Appearance Slightly cloudy, Urine pH 5, Urine Specific [place] 1.030, Urine Protein Negative, Urine Glucose (UA) Negative, Urine Ketones Negative, Urine Blood 3+H, Urine Nitrite Negative, Urine Bilirubin Negative, Urine Urobilinogen Normal, Urine Leukocyte Esterase 1+H, Urine RBC 2-4H, Urine WBC 5-10H, Urine Squamous Epithelial Cells ManyH, Urine Bacteria ModerateH 05/27/20 04:40: Magnesium Level 2.0 Current Medications Medications (Trade) Dose Ordered Sig/Jori Route PRN Reason Start Time Stop Time Status Last Admin Dose Admin Acetaminophen (Tylenol) 1,000 mg Q4H PRN GT temp>100.2 or headache 04/29/20 15:45 05/29/20 15:44 05/10/20 20:46 Acetaminophen/ Hydrocodone Bitart ([place] 5/325) 1 tab Q4H PRN ORAL pain 05/22/20 10:30 05/29/20 10:29 05/27/20 09:39 Alprazolam (Xanax) 0.5 mg DAILY PRN ORAL For Anxiety 05/22/20 00:30 05/29/20 00:29 05/22/20 22:13 Ascorbic Acid (Vitamin C) 500 mg NEEDED PRN ORAL Constipation 05/16/20 10:15 06/15/20 10:14 Bupropion HCl (Wellbutrin SR) 200 mg DAILY ORAL 05/19/20 09:00 06/18/20 08:59 05/27/20 08:45 Chlorhexidine Gluconate (Kathryn-Hex 2%) 1 applic DAILY@2000 TOPIC 04/27/20 20:00 07/26/20 19:59 05/26/20 20:37 Citalopram Hydrobromide (CeleXA) 40 mg DAILY ORAL 05/22/20 09:00 06/21/20 08:59 05/27/20 09:38 Dextrose (Dextrose 50%) 25 ml Q30M PRN IV Hypoglycemia 04/28/20 08:30 07/27/20 08:29 Dextrose (Dextrose 50%) 50 ml Q30M PRN IV Hypoglycemia 04/28/20 08:30 07/27/20 08:29 Ketorolac Tromethamine (Toradol 30mg) 15 mg Q6H PRN IV Severe Breakthru Pain (>7) 05/23/20 14:15 05/28/20 14:14 05/26/20 18:58 Lidocaine HCl (Xylocaine Jelly 2%) 1 applic Q2H PRN TOPIC For Pain 05/17/20 10:00 08/15/20 09:59 05/23/20 23:12 Miconazole Nitrate (Monistat) 100 mg BEDTIME VAGIN 05/26/20 21:00 08/24/20 20:59 05/26/20 20:38 Ondansetron HCl (Zofran ODT) 4 mg AC+HS ORAL 05/23/20 11:30 06/22/20 11:29 05/27/20 05:38 Patient Own Medication (Patient's Own Med) 1 ea QHS ORAL 05/13/20 21:00 06/12/20 20:59 05/26/20 20:39 Trazodone HCl (Desyrel) 300 mg BEDTIME PRN ORAL Insomnia 05/12/20 15:00 05/27/20 20:59 05/26/20 23:39 Assessment/Plan Assessment/Plan IMPRESSION: 1. Atelectasis, right lung. 2. Postnasal drip/allergic rhinitis. 3. Status post laparotomy and lysis of adhesions. 4. Chronic pain. 5. Ulcerative colitis. DISCUSSION: Respiratory status is stable Continue present care No fever Saturating well on RA Zenon Montoya Omar Syed MD May 27, 2020 10:45
[2020-05-27 12:00] VITALS: BP 101/59
--- NOTE | 2020-05-27 14:21 | General Progress Note ---
Progress Note Progress Note AVSS Still unsteady ambulating to bathroom independently - still needs nursing assistance Intermittent mid-abdominal ? incisional pains relieved by [place] Abdomen soft, gastrostomy site healing, stoma pink Intubating her Kock pouch with RN supervision - having some difficulty using 30Fr Christina catheter. Advised to try inserting catheter standing, then sit on toilet to evacuate pouch Plan: continue current regimen Lalo Meadows MD May 27, 2020 14:21
[2020-05-27] MEDS ORDERED: ALPRAZolam 0.5mg tab ORAL PRN (14:30)
[2020-05-27 16:00] VITALS: BP 115/55
[2020-05-27 20:00] VITALS: BP 98/57
[2020-05-27] MEDS: Dyna-Hex 2% Top Sol 2oz TOPIC SCH (20:52)
[2020-05-27] MEDS: MYRBETRIQ 50 MG ORAL SCH (20:53)
[2020-05-27] MEDS: MICONAZOLE VAGIN SCH (20:54)
--- NOTE | 2020-05-27 21:21 | Hematology/Onc Progress Note ---
Assessment/Plan Assessment/Plan ASSESSMENT AND PLAN: # SEVERE Thrombocytopenia that is severe, on admission, plt was wnl and now dropped to 8K The patient comes in with high-grade bowel obstruction and malfunction Kock pouch continent ileostomy. The patient is status post surgery including release of the bowel obstruction. The patient was noted to have pus in small intra-abdominal abscess. It was growing out Klebsiella pneumoniae and Enterococcus. The patient has a low platele count and could be secondary to cefepime, which the patient is on. --> cefepime has been stopped, likely culprits --> as per ID antibiotics, vancomycin, Cipro, and Flagyl. 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 # History of ulcerative colitis. # History of multiple abdominal surgeries. # History of spine surgery. # History of parathyroid adenoma. # History of proctocolectomy. # History of laparotomy. The timing of this note does not necessarily reflect the time of the patient was seen. Greatly appreciate consultation. Subjective Constitutional: Denies: no symptoms, chills, fever, malaise, weakness, other HEENT: Denies: no symptoms, eye pain, blurred vision, tearing, double vision, ear pain, ear discharge, nose pain, nose congestion, throat pain, throat swelling, mouth pain, mouth swelling, other Cardiovascular: Denies: no symptoms, chest pain, edema, irregular heart rate, lightheadedness, palpitations, syncope, other Respiratory: Denies: no symptoms, cough, shortness of breath, SOB with excertion, SOB at rest, sputum, wheezing, other Gastrointestinal/Abdominal: Denies: no symptoms, abdomen distended, abdominal pain, black stools, tarry stools, blood in stool, constipated, diarrhea, difficulty swallowing, nausea, poor appetite, poor fluid intake, rectal bleeding , vomiting, other Genitourinary: Denies: no symptoms, burning, discharge, frequency, flank pain, hematuria, incontinence, pain, urgency, other Neurologic/Psychiatric: Denies: no symptoms, anxiety, depressed, emotional problems, headache, numbness, paresthesia, pre-existing deficit, seizure, tingling, tremors, weakness, other Endocrine: Denies: no symptoms, excessive sweating, flushing, intolerance to cold, intolerance to heat, increased hunger, increased thirst, increased urine, unexplained weight gain, unexplained weight loss, other Allergies: Coded Allergies: ADHESIVE TAPE (Verified Adverse Reaction, Intermediate, Rash, 08/27/19) CLEAR TAPE Subjective 05/08 gtube connected, plts 6k, ordered for transfusion, consider ahus as well, will get hit ab test 05/10 plt is 73, no bleeding, feelingbetter, holding off transfusion 05/11 labs are noted, no bleeding, plt 46k, remains on antibiotics, may consider biopsy tomorrow if labs do not improve 05/12 plt is better, gtube is clamped, no bleeding, no bleeding 05/13 platelets have briskly improved, dw pt and will hold off marrow 05/14 awake and alert, new small pleural effusion, no sob 05/15 meds noted, no bleeding, dw rn, no night sweats, still with pain abdominal 05/17 meds reviewed, no bleeding, dw rn, no major changes, plt 293 05/18 labs noted, no bleeding, irish rn, no night sweats 05/19 labs are reviewed, plt 375, no bleeding, meds noted 05/20 meds noted, no bleeding, no chills, plt better 723 no bleeding no chills, no fc, hgb 10.3, no hemolysis 05/22 gtube is clamped, no night sweats, meds reviewed, no major changes 05/23 still with some mild pain, no bleeding, meds reviewed, plt better 05/24 comfortable, no new events no changes, no bleeding this am 05/25 labs are noted, no bleeding, cbc reviewed 05/26 is comfortable, no bleeding, cbc noted, no night sweats 05/27 meds have been reviewed, irish rn, no bleeding, labs noted Objective Objective Current Medications Medications (Trade) Dose Ordered Sig/Jori Route PRN Reason Start Time Stop Time Status Last Admin Dose Admin Acetaminophen/ Hydrocodone Bitart ([place] 5/325) 1 tab Q4H PRN ORAL pain 05/27/20 14:24 06/03/20 14:23 05/27/20 20:53 Alprazolam (Xanax) 0.5 mg DAILYPRN PRN ORAL For Anxiety 05/27/20 14:30 06/03/20 14:29 Ascorbic Acid (Vitamin C) 500 mg NEEDED PRN ORAL Constipation 05/16/20 10:15 06/15/20 10:14 Bupropion HCl (Wellbutrin SR) 200 mg DAILY ORAL 05/19/20 09:00 06/18/20 08:59 05/27/20 08:45 Chlorhexidine Gluconate (Kathryn-Hex 2%) 1 applic DAILY@2000 TOPIC 04/27/20 20:00 07/26/20 19:59 05/27/20 20:52 Citalopram Hydrobromide (CeleXA) 40 mg DAILY ORAL 05/22/20 09:00 06/21/20 08:59 05/27/20 09:38 Dextrose (Dextrose 50%) 25 ml Q30M PRN IV Hypoglycemia 04/28/20 08:30 07/27/20 08:29 Dextrose (Dextrose 50%) 50 ml Q30M PRN IV Hypoglycemia 04/28/20 08:30 07/27/20 08:29 Ketorolac Tromethamine (Toradol 30mg) 15 mg Q6H PRN IV Severe Breakthru Pain (>7) 05/23/20 14:15 05/28/20 14:14 05/26/20 18:58 Lidocaine HCl (Xylocaine Jelly 2%) 1 applic Q2H PRN TOPIC For Pain 05/17/20 10:00 08/15/20 09:59 05/23/20 23:12 Miconazole Nitrate (Monistat) 100 mg BEDTIME VAGIN 05/26/20 21:00 08/24/20 20:59 05/27/20 20:54 Ondansetron HCl (Zofran ODT) 4 mg AC+HS ORAL 05/23/20 11:30 06/22/20 11:29 05/27/20 20:54 Patient Own Medication (Patient's Own Med) 1 ea QHS ORAL 05/13/20 21:00 06/12/20 20:59 05/27/20 20:53 Trazodone HCl (Desyrel) 300 mg BEDTIME PRN ORAL Insomnia 05/27/20 14:24 06/26/20 14:23 Last 24 Hour Vital Signs Date Time Temp Pulse Resp B/P (MAP) Pulse Ox O2 Delivery O2 Flow Rate FiO2 05/27/20 16:00 98.1 83 19 115/55 (75) 96 05/27/20 12:00 98.6 86 18 101/59 (73) 96 05/27/20 09:00 Room Air 05/27/20 08:00 97.4 77 18 107/61 (76) 96 05/27/20 05:23 98.2 05/27/20 04:00 98.0 84 18 110/58 (75) 98 05/27/20 00:00 98.2 84 18 103/59 (74) 97 05/26/20 21:00 Room Air 05/26/20 20:00 99.3 17 103/50 (67) 96 05/26/20 19:28 98.2 05/26/20 16:00 98.6 21 115/65 (82) 98 05/26/20 12:00 98.9 96 20 90/54 (66) 97 05/26/20 09:00 Room Air 05/26/20 08:00 97.3 78 18 134/69 (90) 98 05/26/20 04:00 98.6 78 18 109/61 (77) 96 05/26/20 00:00 98.3 89 18 102/58 (73) 96 Intake and Output 05/26/20 05/27/20 19:00 07:00 Intake Total 950 ml 400 ml Output Total 1040 ml 900 ml Balance -90 ml -500 ml Intake Oral 950 ml 400 ml Output Urine Total 700 ml 600 ml Other 340 ml 300 ml # Voids 4 3 Labs Test 05/25/20 05:40 05/26/20 05:48 05/26/20 17:10 05/27/20 04:40 White Blood Count 5.0 K/UL (4.8-10.8) Red Blood Count 3.62 M/UL (4.20-5.40) Hemoglobin 11.7 G/DL (12.0-16.0) Hematocrit 36.2 % (37.0-47.0) Mean Corpuscular Volume 100 FL (80-99) Mean Corpuscular Hemoglobin 32.1 PG (27.0-31.0) Mean Corpuscular Hemoglobin Concent 32.2 G/DL (32.0-36.0) Red Cell Distribution Width 13.5 % (11.6-14.8) Platelet Count 353 K/UL (150-450) Mean Platelet Volume 6.6 FL (6.5-10.1) Neutrophils (%) (Auto) 63.9 % (45.0-75.0) Lymphocytes (%) (Auto) 27.0 % (20.0-45.0) Monocytes (%) (Auto) 8.3 % (1.0-10.0) Eosinophils (%) (Auto) 0.0 % (0.0-3.0) Basophils (%) (Auto) 0.9 % (0.0-2.0) Sodium Level 139 MMOL/L (136-145) Potassium Level 3.7 MMOL/L (3.5-5.1) Chloride Level 104 MMOL/L (98-107) Carbon Dioxide Level 30 MMOL/L (21-32) Anion Gap 5 mmol/L (5-15) Blood Urea Nitrogen 24 mg/dL (7-18) Creatinine 1.1 MG/DL (0.55-1.30) Estimat Glomerular Filtration Rate 49.3 mL/min (>60) Glucose Level 86 MG/DL (74-106) Calcium Level 9.8 MG/DL (8.5-10.1) Phosphorus Level 4.2 MG/DL (2.5-4.9) Magnesium Level 1.5 MG/DL (1.8-2.4) 1.9 MG/DL (1.8-2.4) 2.0 MG/DL (1.8-2.4) Total Bilirubin 0.4 MG/DL (0.2-1.0) Aspartate Amino Transf (AST/SGOT) 21 U/L (15-37) Alanine Aminotransferase (ALT/SGPT) 26 U/L (12-78) Alkaline Phosphatase 168 U/L (46-116) Total Protein 7.9 G/DL (6.4-8.2) Albumin 3.4 G/DL (3.4-5.0) Globulin 4.5 g/dL Albumin/Globulin Ratio 0.8 (1.0-2.7) Urine Color Yellow Urine Appearance Slightly cloudy Urine pH 5 (4.5-8.0) Urine Specific [place] 1.030 (1.005-1.035) Urine Protein Negative (NEGATIVE) Urine Glucose (UA) Negative (NEGATIVE) Urine Ketones Negative (NEGATIVE) Urine Blood 3+ (NEGATIVE) Urine Nitrite Negative (NEGATIVE) Urine Bilirubin Negative (NEGATIVE) Urine Urobilinogen Normal MG/DL (0.0-1.0) Urine Leukocyte Esterase 1+ (NEGATIVE) Urine RBC 2-4 /HPF (0 - 2) Urine WBC 5-10 /HPF (0 - 2) Urine Squamous Epithelial Cells Many /LPF (NONE/OCC) Urine Bacteria Moderate /HPF (NONE) Height (Feet): 5 Height (Inches): 3.00 Weight (Pounds): 138 Objective Physical Exam: Vitals: reviewed General: NAD HEENT: nc, at Neck: supple Chest: clear breath sounds bilaterally Cardiovascular: RRR, no s3, s4 Abdomen: soft, nontender, nd ++gtube, Kouch pouch ++ midline scar site is c/d/i Extremities: no cce, normal range of motion Neuro: alert and oriented Cecilio Grey MD May 27, 2020 21:21
--- NOTE | 2020-05-27 23:08 | Psych Consult Progress Note ---
Psychiatry Progress Note Psychiatry Progress Note Medications Current Medications Medications (Trade) Dose Ordered Sig/Jori Route PRN Reason Start Time Stop Time Status Last Admin Dose Admin Acetaminophen/ Hydrocodone Bitart ([place] 5/325) 1 tab Q4H PRN ORAL pain 05/27/20 14:24 06/03/20 14:23 05/27/20 20:53 Alprazolam (Xanax) 0.5 mg DAILYPRN PRN ORAL For Anxiety 05/27/20 14:30 06/03/20 14:29 Ascorbic Acid (Vitamin C) 500 mg NEEDED PRN ORAL Constipation 05/16/20 10:15 06/15/20 10:14 Bupropion HCl (Wellbutrin SR) 200 mg DAILY ORAL 05/19/20 09:00 06/18/20 08:59 05/27/20 08:45 Chlorhexidine Gluconate (Kathryn-Hex 2%) 1 applic DAILY@1999 TOPIC 04/27/20 20:00 07/26/20 19:59 05/27/20 20:52 Citalopram Hydrobromide (CeleXA) 40 mg DAILY ORAL 05/22/20 09:00 06/21/20 08:59 05/27/20 09:38 Dextrose (Dextrose 50%) 25 ml Q30M PRN IV Hypoglycemia 04/28/20 08:30 07/27/20 08:29 Dextrose (Dextrose 50%) 50 ml Q30M PRN IV Hypoglycemia 04/28/20 08:30 07/27/20 08:29 Ketorolac Tromethamine (Toradol 30mg) 15 mg Q6H PRN IV Severe Breakthru Pain (>7) 05/23/20 14:15 05/28/20 14:14 05/26/20 18:58 Lidocaine HCl (Xylocaine Jelly 2%) 1 applic Q2H PRN TOPIC For Pain 05/17/20 10:00 08/15/20 09:59 05/23/20 23:12 Miconazole Nitrate (Monistat) 100 mg BEDTIME VAGIN 05/26/20 21:00 08/24/20 20:59 05/27/20 20:54 Ondansetron HCl (Zofran ODT) 4 mg AC+HS ORAL 05/23/20 11:30 06/22/20 11:29 05/27/20 20:54 Patient Own Medication (Patient's Own Med) 1 ea QHS ORAL 05/13/20 21:00 06/12/20 20:59 05/27/20 20:53 Trazodone HCl (Desyrel) 300 mg BEDTIME PRN ORAL Insomnia 05/27/20 14:24 06/26/20 14:23 Neurological/Psychiatric: Reports: anxiety, depressed, emotional problems Allergies: Coded Allergies: ADHESIVE TAPE (Verified Adverse Reaction, Intermediate, Rash, 08/27/19) CLEAR TAPE Objective Data Height (Feet): 5 Height (Inches): 3.00 Weight (Pounds): 138 General Appearance: WD/WN, no apparent distress, alert, alert oriented x3 Additional Comments: alert and oriented to times self, place, situation, and date. She is cooperative, pleasant, smiling appropriately. Mood is neutral. Affect is flat, mood is congruent. Thought process is linear and goal oriented. Thought content, no suicidal or homicidal ideation. Cognition is intact. Insight and judgment fair Assessment/Plan Problem List: (1) MDD (major depressive disorder) ICD Codes: F32.9 - Major depressive disorder, single episode, unspecified SNOMED: 844481278 (2) Anxiety disorder ICD Codes: F41.9 - Anxiety disorder, unspecified SNOMED: 566478277 Status: doing well, stable, progressing Assessment/Plan: welb trazadone celexa xanax the pt is reluctant to change meds Antonio Coates MD May 27, 2020 23:08
[2020-05-27] MEDS: TraZODone 100mg tab ORAL PRN (23:30)
[2020-05-28] VITALS: BP 109/56
[2020-05-28 04:00] VITALS: BP 113/66
[2020-05-28 05:55] LABS: BASOPHILS % (AUTO) 0.8 % (0.0-2.0); EOSINOPHILS % (AUTO) 0.1 % (0.0-3.0); HEMATOCRIT 34.3 % (37.0-47.0); LYMPHOCYTES % (AUTO) 30.5 % (20.0-45.0); MEAN CORPUSCULAR VOLUME 101 FL (80-99); MONOCYTES % (AUTO) 9.3 % (1.0-10.0); NEUTROPHILS % (AUTO) 59.3 % (45.0-75.0); PLATELET COUNT 265 K/UL (150-450); RED BLOOD COUNT 3.41 M/UL (4.20-5.40); RED CELL DISTRIBUTION WIDTH 13.1 % (11.6-14.8); WHITE BLOOD COUNT 4.9 K/UL (4.8-10.8)
[2020-05-28 08:00] VITALS: BP 121/68
[2020-05-28] MEDS: BuPROPion SR 100mg tab ORAL SCH (08:57)
[2020-05-28] MEDS: HYDROcodone/Acetamin 5/325 tab ORAL PRN ×2 (08:57→21:42)
[2020-05-28] MEDS: Citalopram Hydrobromide 10mg Tab ORAL SCH (08:57)
--- NOTE | 2020-05-28 10:10 | Pulmonology Progress Note ---
Subjective Interval Events: None new HEENT: Repors: no symptoms Respiratory: Reports: no symptoms Cardiovascular: Reports: no symptoms Gastrointestinal/Abdominal: Reports: other - some abdominal discomfort Allergies: Coded Allergies: ADHESIVE TAPE (Verified Adverse Reaction, Intermediate, Rash, 08/27/19) CLEAR TAPE Objective Last 24 Hour Vital Signs Date Time Temp Pulse Resp B/P (MAP) Pulse Ox O2 Delivery O2 Flow Rate FiO2 05/28/20 09:00 Room Air 05/28/20 08:00 98.0 80 17 121/68 (85) 99 05/28/20 04:00 98.6 86 20 113/66 (82) 99 05/28/20 00:00 97.8 79 18 109/56 (73) 95 05/27/20 21:23 98.1 05/27/20 21:00 Room Air 05/27/20 20:00 99.1 83 16 98/57 (71) 95 05/27/20 16:00 98.1 83 19 115/55 (75) 96 05/27/20 12:00 98.6 86 18 101/59 (73) 96 Intake and Output 05/27/20 05/28/20 19:00 07:00 Intake Total 829 ml 480 ml Output Total 1100 ml 1050 ml Balance -271 ml -570 ml Intake Oral 829 ml 480 ml Output Urine Total 500 ml 700 ml Other 600 ml 350 ml # Voids 2 4 General Appearance: no acute distress HEENT: normocephalic Respiratory: chest wall non-tender, lungs clear Cardiovascular: normal peripheral pulses Abdomen: normal bowel sounds Microbiology Date/Time Source Procedure Growth Status 05/26/20 17:10 Urine,Clean Catch Urine Culture - Preliminary Mixed Gram Positive Organism Resulted Laboratory Tests 05/28/20 04:50: White Blood Count 4.9, Red Blood Count 3.41L, Hemoglobin 11.0L, Hematocrit 34.3L , Mean Corpuscular Volume 101H, Mean Corpuscular Hemoglobin 32.1H, Mean Corpuscular Hemoglobin Concent 32.0, Red Cell Distribution Width 13.1, Platelet Count 265, Mean Platelet Volume 7.1, Neutrophils (%) (Auto) 59.3, Lymphocytes (% ) (Auto) 30.5, Monocytes (%) (Auto) 9.3, Eosinophils (%) (Auto) 0.1, Basophils ( %) (Auto) 0.8 Current Medications Medications (Trade) Dose Ordered Sig/Jori Route PRN Reason Start Time Stop Time Status Last Admin Dose Admin Acetaminophen/ Hydrocodone Bitart ([place] 5/325) 1 tab Q4H PRN ORAL pain 05/27/20 14:24 06/03/20 14:23 05/28/20 08:57 Alprazolam (Xanax) 0.5 mg DAILYPRN PRN ORAL For Anxiety 05/27/20 14:30 06/03/20 14:29 Ascorbic Acid (Vitamin C) 500 mg NEEDED PRN ORAL Constipation 05/16/20 10:15 06/15/20 10:14 Bupropion HCl (Wellbutrin SR) 200 mg DAILY ORAL 05/19/20 09:00 06/18/20 08:59 05/28/20 08:57 Chlorhexidine Gluconate (Kathryn-Hex 2%) 1 applic DAILY@1999 TOPIC 04/27/20 20:00 07/26/20 19:59 05/27/20 20:52 Citalopram Hydrobromide (CeleXA) 40 mg DAILY ORAL 05/22/20 09:00 06/21/20 08:59 05/28/20 08:57 Dextrose (Dextrose 50%) 25 ml Q30M PRN IV Hypoglycemia 04/28/20 08:30 07/27/20 08:29 Dextrose (Dextrose 50%) 50 ml Q30M PRN IV Hypoglycemia 04/28/20 08:30 07/27/20 08:29 Ketorolac Tromethamine (Toradol 30mg) 15 mg Q6H PRN IV Severe Breakthru Pain (>7) 05/23/20 14:15 05/28/20 14:14 05/26/20 18:58 Lidocaine HCl (Xylocaine Jelly 2%) 1 applic Q2H PRN TOPIC For Pain 05/17/20 10:00 08/15/20 09:59 05/23/20 23:12 Miconazole Nitrate (Monistat) 100 mg BEDTIME VAGIN 05/26/20 21:00 08/24/20 20:59 05/27/20 20:54 Ondansetron HCl (Zofran ODT) 4 mg AC+HS ORAL 05/23/20 11:30 06/22/20 11:29 05/27/20 20:54 Patient Own Medication (Patient's Own Med) 1 ea QHS ORAL 05/13/20 21:00 06/12/20 20:59 05/27/20 20:53 Trazodone HCl (Desyrel) 300 mg BEDTIME PRN ORAL Insomnia 05/27/20 14:24 06/26/20 14:23 05/27/20 23:30 Assessment/Plan Assessment/Plan IMPRESSION: 1. Atelectasis, right lung. 2. Postnasal drip/allergic rhinitis. 3. Status post laparotomy and lysis of adhesions. 4. Chronic pain. 5. Ulcerative colitis. DISCUSSION: Respiratory status is stable Continue present care No fever Saturating well on RA Zenon Montoya Omar Syed MD May 28, 2020 10:09
[2020-05-28] MEDS ORDERED: NS Irrig 1000ml ONE ×2 (11:34→18:37)
[2020-05-28 12:00] VITALS: BP 123/69
--- NOTE | 2020-05-28 12:47 | Hematology/Onc Progress Note ---
Assessment/Plan Assessment/Plan ASSESSMENT AND PLAN: # SEVERE Thrombocytopenia that is severe, on admission, plt was wnl and now dropped to 8K The patient comes in with high-grade bowel obstruction and malfunction Kock pouch continent ileostomy. The patient is status post surgery including release of the bowel obstruction. The patient was noted to have pus in small intra-abdominal abscess. It was growing out Klebsiella pneumoniae and Enterococcus. The patient has a low platele count and could be secondary to cefepime, which the patient is on. --> cefepime has been stopped, likely culprits --> as per ID antibiotics, vancomycin, Cipro, and Flagyl. 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 # History of ulcerative colitis. # History of multiple abdominal surgeries. # History of spine surgery. # History of parathyroid adenoma. # History of proctocolectomy. # History of laparotomy. The timing of this note does not necessarily reflect the time of the patient was seen. Greatly appreciate consultation. Subjective HEENT: Denies: no symptoms, eye pain, blurred vision, tearing, double vision, ear pain, ear discharge, nose pain, nose congestion, throat pain, throat swelling, mouth pain, mouth swelling, other Cardiovascular: Denies: no symptoms, chest pain, edema, irregular heart rate, lightheadedness, palpitations, syncope, other Respiratory: Denies: no symptoms, cough, shortness of breath, SOB with excertion, SOB at rest, sputum, wheezing, other Gastrointestinal/Abdominal: Denies: no symptoms, abdomen distended, abdominal pain, black stools, tarry stools, blood in stool, constipated, diarrhea, difficulty swallowing, nausea, poor appetite, poor fluid intake, rectal bleeding , vomiting, other Genitourinary: Denies: no symptoms, burning, discharge, frequency, flank pain, hematuria, incontinence, pain, urgency, other Neurologic/Psychiatric: Denies: no symptoms, anxiety, depressed, emotional problems, headache, numbness, paresthesia, pre-existing deficit, seizure, tingling, tremors, weakness, other Endocrine: Denies: no symptoms, excessive sweating, flushing, intolerance to cold, intolerance to heat, increased hunger, increased thirst, increased urine, unexplained weight gain, unexplained weight loss, other Allergies: Coded Allergies: ADHESIVE TAPE (Verified Adverse Reaction, Intermediate, Rash, 08/27/19) CLEAR TAPE Subjective 05/08 gtube connected, plts 6k, ordered for transfusion, consider ahus as well, will get hit ab test 05/10 plt is 73, no bleeding, feelingbetter, holding off transfusion 05/11 labs are noted, no bleeding, plt 46k, remains on antibiotics, may consider biopsy tomorrow if labs do not improve 05/12 plt is better, gtube is clamped, no bleeding, no bleeding 05/13 platelets have briskly improved, dw pt and will hold off marrow 05/14 awake and alert, new small pleural effusion, no sob 05/15 meds noted, no bleeding, irish rn, no night sweats, still with pain abdominal 05/17 meds reviewed, no bleeding, irish rn, no major changes, plt 293 05/18 labs noted, no bleeding, irish rn, no night sweats 05/19 labs are reviewed, plt 375, no bleeding, meds noted 05/20 meds noted, no bleeding, no chills, plt better 723 no bleeding no chills, no fc, hgb 10.3, no hemolysis 05/22 gtube is clamped, no night sweats, meds reviewed, no major changes 05/23 still with some mild pain, no bleeding, meds reviewed, plt better 05/24 comfortable, no new events no changes, no bleeding this am 05/25 labs are noted, no bleeding, cbc reviewed 05/26 is comfortable, no bleeding, cbc noted, no night sweats 05/27 meds have been reviewed, irish rn, no bleeding, labs noted 05/28 has been accepted to [facility] for dc soon Objective Objective Current Medications Medications (Trade) Dose Ordered Sig/Jori Route PRN Reason Start Time Stop Time Status Last Admin Dose Admin Acetaminophen/ Hydrocodone Bitart ([place] 5/325) 1 tab Q4H PRN ORAL pain 05/27/20 14:24 06/03/20 14:23 05/28/20 08:57 Alprazolam (Xanax) 0.5 mg DAILYPRN PRN ORAL For Anxiety 05/27/20 14:30 06/03/20 14:29 Ascorbic Acid (Vitamin C) 500 mg NEEDED PRN ORAL Constipation 05/16/20 10:15 06/15/20 10:14 Bupropion HCl (Wellbutrin SR) 200 mg DAILY ORAL 05/19/20 09:00 06/18/20 08:59 05/28/20 08:57 Chlorhexidine Gluconate (Kathryn-Hex 2%) 1 applic DAILY@2000 TOPIC 04/27/20 20:00 07/26/20 19:59 05/27/20 20:52 Citalopram Hydrobromide (CeleXA) 40 mg DAILY ORAL 05/22/20 09:00 06/21/20 08:59 05/28/20 08:57 Dextrose (Dextrose 50%) 25 ml Q30M PRN IV Hypoglycemia 04/28/20 08:30 07/27/20 08:29 Dextrose (Dextrose 50%) 50 ml Q30M PRN IV Hypoglycemia 04/28/20 08:30 07/27/20 08:29 Ketorolac Tromethamine (Toradol 30mg) 15 mg Q6H PRN IV Severe Breakthru Pain (>7) 05/23/20 14:15 05/28/20 14:14 05/26/20 18:58 Lidocaine HCl (Xylocaine Jelly 2%) 1 applic Q2H PRN TOPIC For Pain 05/17/20 10:00 08/15/20 09:59 05/23/20 23:12 Miconazole Nitrate (Monistat) 100 mg BEDTIME VAGIN 05/26/20 21:00 08/24/20 20:59 05/27/20 20:54 Ondansetron HCl (Zofran ODT) 4 mg AC+HS ORAL 05/23/20 11:30 06/22/20 11:29 05/28/20 11:13 Patient Own Medication (Patient's Own Med) 1 ea QHS ORAL 05/13/20 21:00 06/12/20 20:59 05/27/20 20:53 Trazodone HCl (Desyrel) 300 mg BEDTIME PRN ORAL Insomnia 05/27/20 14:24 06/26/20 14:23 05/27/20 23:30 Last 24 Hour Vital Signs Date Time Temp Pulse Resp B/P (MAP) Pulse Ox O2 Delivery O2 Flow Rate FiO2 05/28/20 12:00 97.8 88 19 123/69 (87) 95 05/28/20 09:00 Room Air 05/28/20 08:00 98.0 80 17 121/68 (85) 99 05/28/20 04:00 98.6 86 20 113/66 (82) 99 05/28/20 00:00 97.8 79 18 109/56 (73) 95 05/27/20 21:23 98.1 05/27/20 21:00 Room Air 05/27/20 20:00 99.1 83 16 98/57 (71) 95 05/27/20 16:00 98.1 83 19 115/55 (75) 96 05/27/20 12:00 98.6 86 18 101/59 (73) 96 05/27/20 09:00 Room Air 05/27/20 08:00 97.4 77 18 107/61 (76) 96 05/27/20 05:23 98.2 05/27/20 04:00 98.0 84 18 110/58 (75) 98 05/27/20 00:00 98.2 84 18 103/59 (74) 97 05/26/20 21:00 Room Air 05/26/20 20:00 99.3 17 103/50 (67) 96 05/26/20 19:28 98.2 05/26/20 16:00 98.6 21 115/65 (82) 98 Intake and Output 05/27/20 05/28/20 19:00 07:00 Intake Total 829 ml 480 ml Output Total 1100 ml 1050 ml Balance -271 ml -570 ml Intake Oral 829 ml 480 ml Output Urine Total 500 ml 700 ml Other 600 ml 350 ml # Voids 2 4 Labs Test 05/26/20 05:48 05/26/20 17:10 05/27/20 04:40 05/28/20 04:50 Magnesium Level 1.9 MG/DL (1.8-2.4) 2.0 MG/DL (1.8-2.4) Urine Color Yellow Urine Appearance Slightly cloudy Urine pH 5 (4.5-8.0) Urine Specific [place] 1.030 (1.005-1.035) Urine Protein Negative (NEGATIVE) Urine Glucose (UA) Negative (NEGATIVE) Urine Ketones Negative (NEGATIVE) Urine Blood 3+ (NEGATIVE) Urine Nitrite Negative (NEGATIVE) Urine Bilirubin Negative (NEGATIVE) Urine Urobilinogen Normal MG/DL (0.0-1.0) Urine Leukocyte Esterase 1+ (NEGATIVE) Urine RBC 2-4 /HPF (0 - 2) Urine WBC 5-10 /HPF (0 - 2) Urine Squamous Epithelial Cells Many /LPF (NONE/OCC) Urine Bacteria Moderate /HPF (NONE) White Blood Count 4.9 K/UL (4.8-10.8) Red Blood Count 3.41 M/UL (4.20-5.40) Hemoglobin 11.0 G/DL (12.0-16.0) Hematocrit 34.3 % (37.0-47.0) Mean Corpuscular Volume 101 FL (80-99) Mean Corpuscular Hemoglobin 32.1 PG (27.0-31.0) Mean Corpuscular Hemoglobin Concent 32.0 G/DL (32.0-36.0) Red Cell Distribution Width 13.1 % (11.6-14.8) Platelet Count 265 K/UL (150-450) Mean Platelet Volume 7.1 FL (6.5-10.1) Neutrophils (%) (Auto) 59.3 % (45.0-75.0) Lymphocytes (%) (Auto) 30.5 % (20.0-45.0) Monocytes (%) (Auto) 9.3 % (1.0-10.0) Eosinophils (%) (Auto) 0.1 % (0.0-3.0) Basophils (%) (Auto) 0.8 % (0.0-2.0) Height (Feet): 5 Height (Inches): 3.00 Weight (Pounds): 138 Objective Physical Exam: Vitals: reviewed General: NAD HEENT: nc, at Neck: supple Chest: clear breath sounds bilaterally Cardiovascular: RRR, no s3, s4 Abdomen: soft, nontender, nd ++gtube, Kouch pouch ++ midline scar site is c/d/i Extremities: no cce, normal range of motion Neuro: alert and oriented Cecilio Grey MD May 28, 2020 12:47
--- NOTE | 2020-05-28 14:33 | General Progress Note ---
Progress Note Progress Note AVSS Starting to be easier to intubate her Kock pouch with RN support - seated on toilet, or standing. Still with abdominal pain 2-5 rating Abdomen soft Imp: slowly improving Plan; continue in-patient care 2-3 additional days continue RN supervised Kock pouch self-intubations f/u labs in AM Lalo Meadows MD May 28, 2020 14:33
[2020-05-28 16:00] VITALS: BP 105/88
[2020-05-28 20:00] VITALS: BP 116/62
[2020-05-28] MEDS: MYRBETRIQ 50 MG ORAL SCH (20:02)
[2020-05-28] MEDS: Dyna-Hex 2% Top Sol 2oz TOPIC SCH (20:02)
[2020-05-28] MEDS: MICONAZOLE VAGIN SCH (21:36)
[2020-05-28] MEDS: TraZODone 100mg tab ORAL PRN (22:43)
--- NOTE | 2020-05-28 23:15 | Psych Consult Progress Note ---
Psychiatry Progress Note Psychiatry Progress Note Subjective anxious about discharge poor support system no children sleep and appetite adequate Medications Current Medications Medications (Trade) Dose Ordered Sig/Jori Route PRN Reason Start Time Stop Time Status Last Admin Dose Admin Acetaminophen/ Hydrocodone Bitart ([place] 5/325) 1 tab Q4H PRN ORAL pain 05/27/20 14:24 06/03/20 14:23 05/28/20 21:42 Alprazolam (Xanax) 0.5 mg DAILYPRN PRN ORAL For Anxiety 05/27/20 14:30 06/03/20 14:29 Ascorbic Acid (Vitamin C) 500 mg NEEDED PRN ORAL Constipation 05/16/20 10:15 06/15/20 10:14 Bupropion HCl (Wellbutrin SR) 200 mg DAILY ORAL 05/19/20 09:00 06/18/20 08:59 05/28/20 08:57 Chlorhexidine Gluconate (Kathryn-Hex 2%) 1 applic DAILY@2000 TOPIC 04/27/20 20:00 07/26/20 19:59 05/28/20 20:02 Citalopram Hydrobromide (CeleXA) 40 mg DAILY ORAL 05/22/20 09:00 06/21/20 08:59 05/28/20 08:57 Dextrose (Dextrose 50%) 25 ml Q30M PRN IV Hypoglycemia 04/28/20 08:30 07/27/20 08:29 Dextrose (Dextrose 50%) 50 ml Q30M PRN IV Hypoglycemia 04/28/20 08:30 07/27/20 08:29 Lidocaine HCl (Xylocaine Jelly 2%) 1 applic Q2H PRN TOPIC For Pain 05/17/20 10:00 08/15/20 09:59 05/23/20 23:12 Miconazole Nitrate (Monistat) 100 mg BEDTIME VAGIN 05/26/20 21:00 08/24/20 20:59 05/28/20 21:36 Ondansetron HCl (Zofran ODT) 4 mg AC+HS ORAL 05/23/20 11:30 06/22/20 11:29 05/28/20 20:02 Patient Own Medication (Patient's Own Med) 1 ea QHS ORAL 05/13/20 21:00 06/12/20 20:59 7/30/20 20:02 Trazodone HCl (Desyrel) 300 mg BEDTIME PRN ORAL Insomnia 05/27/20 14:24 06/26/20 14:23 05/28/20 22:43 Allergies: Coded Allergies: ADHESIVE TAPE (Verified Adverse Reaction, Intermediate, Rash, 08/27/19) CLEAR TAPE Objective Data Height (Feet): 5 Height (Inches): 3.00 Weight (Pounds): 138 Additional Comments: alert and oriented to times self, place, situation, and date. She is cooperative, pleasant, smiling appropriately. Mood is neutral. Affect is flat, mood is congruent. Thought process is linear and goal oriented. Thought content, no suicidal or homicidal ideation. Cognition is intact. Insight and judgment fair Assessment/Plan Problem List: (1) MDD (major depressive disorder) ICD Codes: F32.9 - Major depressive disorder, single episode, unspecified SNOMED: 053046927 (2) Anxiety disorder ICD Codes: F41.9 - Anxiety disorder, unspecified SNOMED: 720959300 Status: doing well, stable, progressing Assessment/Plan: welb trazadone celexa xanax the pt is reluctant to change Antonio Preciado MD May 28, 2020 23:15
[2020-05-29] VITALS: BP 118/66
[2020-05-29 04:00] VITALS: BP 125/68
[2020-05-29 06:12] LABS: BASOPHILS % (AUTO) 0.6 % (0.0-2.0); HEMATOCRIT 33.1 % (37.0-47.0); HEMOGLOBIN 10.5 G/DL (12.0-16.0); LYMPHOCYTES % (AUTO) 33.9 % (20.0-45.0); MEAN CORPUSCULAR VOLUME 101 FL (80-99); MONOCYTES % (AUTO) 6.8 % (1.0-10.0); NEUTROPHILS % (AUTO) 58.7 % (45.0-75.0); PLATELET COUNT 227 K/UL (150-450); RED BLOOD COUNT 3.28 M/UL (4.20-5.40); RED CELL DISTRIBUTION WIDTH 13.3 % (11.6-14.8); WHITE BLOOD COUNT 4.9 K/UL (4.8-10.8)
[2020-05-29 06:56] LABS: ALANINE AMINOTRANSFERASE 26 U/L (12-78); ALBUMIN 3.1 G/DL (3.4-5.0); ALBUMIN/GLOBULIN RATIO 0.9 (1.0-2.7); ALKALINE PHOSPHATASE 109 U/L (46-116); ANION GAP 7 mmol/L (5-15); ASPARTATE AMINO TRANSFERASE 17 U/L (15-37); BILIRUBIN,TOTAL 0.4 MG/DL (0.2-1.0); BLOOD UREA NITROGEN 23 mg/dL (7-18); CALCIUM 9.4 MG/DL (8.5-10.1); CARBON DIOXIDE 30 MMOL/L (21-32); CHLORIDE 105 MMOL/L (98-107); POTASSIUM 3.8 MMOL/L (3.5-5.1); SODIUM 142 MMOL/L (136-145)
[2020-05-29 08:00] VITALS: BP 125/69
--- NOTE | 2020-05-29 08:18 | General Progress Note ---
Progress Note Progress Note AVSS Slowly progressing to being able to intubate her Kock pouch independently Eating okay Abdomen soft Mg 1.4 Urine 1800 Kock pouch ileo 950 Imp: slowly improving, self-intubating Kock pouch persistent low Mg Plan; MG infusions MgOxide po BID f/u labs continue strict I&O Lalo Meadows MD May 29, 2020 08:18
[2020-05-29] MEDS ORDERED: Magnesium Oxide 400mg tab ORAL SCH (09:00)
--- NOTE | 2020-05-29 09:23 | Hematology/Onc Progress Note ---
Assessment/Plan Assessment/Plan ASSESSMENT AND PLAN: # SEVERE Thrombocytopenia that is severe, on admission, plt was wnl and now dropped to 8K The patient comes in with high-grade bowel obstruction and malfunction Kock pouch continent ileostomy. The patient is status post surgery including release of the bowel obstruction. The patient was noted to have pus in small intra-abdominal abscess. It was growing out Klebsiella pneumoniae and Enterococcus. The patient has a low platele count and could be secondary to cefepime, which the patient is on. --> cefepime has been stopped, likely culprits --> as per ID antibiotics, vancomycin, Cipro, and Flagyl. 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 # History of ulcerative colitis. # History of multiple abdominal surgeries. # History of spine surgery. # History of parathyroid adenoma. # History of proctocolectomy. # History of laparotomy. The timing of this note does not necessarily reflect the time of the patient was seen. Greatly appreciate consultation. Subjective HEENT: Denies: no symptoms, eye pain, blurred vision, tearing, double vision, ear pain, ear discharge, nose pain, nose congestion, throat pain, throat swelling, mouth pain, mouth swelling, other Cardiovascular: Denies: no symptoms, chest pain, edema, irregular heart rate, lightheadedness, palpitations, syncope, other Respiratory: Denies: no symptoms, cough, shortness of breath, SOB with excertion, SOB at rest, sputum, wheezing, other Gastrointestinal/Abdominal: Denies: no symptoms, abdomen distended, abdominal pain, black stools, tarry stools, blood in stool, constipated, diarrhea, difficulty swallowing, nausea, poor appetite, poor fluid intake, rectal bleeding , vomiting, other Neurologic/Psychiatric: Denies: no symptoms, anxiety, depressed, emotional problems, headache, numbness, paresthesia, pre-existing deficit, seizure, tingling, tremors, weakness, other Endocrine: Denies: no symptoms, excessive sweating, flushing, intolerance to cold, intolerance to heat, increased hunger, increased thirst, increased urine, unexplained weight gain, unexplained weight loss, other Allergies: Coded Allergies: ADHESIVE TAPE (Verified Adverse Reaction, Intermediate, Rash, 08/27/19) CLEAR TAPE Subjective 05/08 gtube connected, plts 6k, ordered for transfusion, consider ahus as well, will get hit ab test 05/10 plt is 73, no bleeding, feelingbetter, holding off transfusion 05/11 labs are noted, no bleeding, plt 46k, remains on antibiotics, may consider biopsy tomorrow if labs do not improve 05/12 plt is better, gtube is clamped, no bleeding, no bleeding 05/13 platelets have briskly improved, dw pt and will hold off marrow 05/14 awake and alert, new small pleural effusion, no sob 05/15 meds noted, no bleeding, irish rn, no night sweats, still with pain abdominal 05/17 meds reviewed, no bleeding, irish rn, no major changes, plt 293 05/18 labs noted, no bleeding, dw rn, no night sweats 05/19 labs are reviewed, plt 375, no bleeding, meds noted 05/20 meds noted, no bleeding, no chills, plt better 723 no bleeding no chills, no fc, hgb 10.3, no hemolysis 05/22 gtube is clamped, no night sweats, meds reviewed, no major changes 05/23 still with some mild pain, no bleeding, meds reviewed, plt better 05/24 comfortable, no new events no changes, no bleeding this am 05/25 labs are noted, no bleeding, cbc reviewed 05/26 is comfortable, no bleeding, cbc noted, no night sweats 05/27 meds have been reviewed, irish rn, no bleeding, labs noted 05/28 has been accepted to [facility], for dc soon 05/29 labs reviewed, plt stable, however hgb 10.5, seen by bedside Dr. Meadows Objective Objective Current Medications Medications (Trade) Dose Ordered Sig/Jori Route PRN Reason Start Time Stop Time Status Last Admin Dose Admin Acetaminophen/ Hydrocodone Bitart ([place] 5/325) 1 tab Q4H PRN ORAL pain 05/27/20 14:24 06/03/20 14:23 05/28/20 21:42 Alprazolam (Xanax) 0.5 mg DAILYPRN PRN ORAL For Anxiety 05/27/20 14:30 06/03/20 14:29 Ascorbic Acid (Vitamin C) 500 mg NEEDED PRN ORAL Constipation 05/16/20 10:15 06/15/20 10:14 Bupropion HCl (Wellbutrin SR) 200 mg DAILY ORAL 05/19/20 09:00 06/18/20 08:59 05/28/20 08:57 Chlorhexidine Gluconate (Kathryn-Hex 2%) 1 applic DAILY@2000 TOPIC 04/27/20 20:00 07/26/20 19:59 05/28/20 20:02 Citalopram Hydrobromide (CeleXA) 40 mg DAILY ORAL 05/22/20 09:00 06/21/20 08:59 05/28/20 08:57 Dextrose (Dextrose 50%) 25 ml Q30M PRN IV Hypoglycemia 04/28/20 08:30 07/27/20 08:29 Dextrose (Dextrose 50%) 50 ml Q30M PRN IV Hypoglycemia 04/28/20 08:30 07/27/20 08:29 Lidocaine HCl (Xylocaine Jelly 2%) 1 applic Q2H PRN TOPIC For Pain 05/17/20 10:00 08/15/20 09:59 05/23/20 23:12 Magnesium Oxide (Mag-Ox 400mg) 400 mg BID ORAL 05/30/20 09:00 06/28/20 08:59 Magnesium Sulfate 100 ml @ 100 mls/hr Q1H IVPB 05/29/20 08:15 05/29/20 12:14 Miconazole Nitrate (Monistat) 100 mg BEDTIME VAGIN 05/26/20 21:00 08/24/20 20:59 05/28/20 21:36 Ondansetron HCl (Zofran ODT) 4 mg NEEDED PRN ORAL Nausea & Vomiting 05/29/20 08:30 06/22/20 11:29 UNV Patient Own Medication (Patient's Own Med) 1 ea QHS ORAL 05/13/20 21:00 06/12/20 20:59 05/28/20 20:02 Trazodone HCl (Desyrel) 300 mg BEDTIME PRN ORAL Insomnia 05/27/20 14:24 06/26/20 14:23 05/28/20 22:43 Last 24 Hour Vital Signs Date Time Temp Pulse Resp B/P (MAP) Pulse Ox O2 Delivery O2 Flow Rate FiO2 05/29/20 08:00 98.2 79 16 125/69 (87) 98 05/29/20 04:00 98.4 82 18 125/68 (87) 96 05/29/20 00:00 98.6 86 18 118/66 (83) 97 05/28/20 21:00 Room Air 05/28/20 20:00 99.2 83 18 116/62 (80) 95 05/28/20 16:00 98.7 78 19 105/88 (94) 97 05/28/20 12:00 97.8 88 19 123/69 (87) 95 05/28/20 09:00 Room Air 05/28/20 08:00 98.0 80 17 121/68 (85) 99 05/28/20 04:00 98.6 86 20 113/66 (82) 99 05/28/20 00:00 97.8 79 18 109/56 (73) 95 05/27/20 21:23 98.1 05/27/20 21:00 Room Air 05/27/20 20:00 99.1 83 16 98/57 (71) 95 05/27/20 16:00 98.1 83 19 115/55 (75) 96 05/27/20 12:00 98.6 86 18 101/59 (73) 96 Intake and Output 05/28/20 05/29/20 19:00 07:00 Intake Total 1248 ml 465 ml Output Total 1550 ml 1200 ml Balance -302 ml -735 ml Intake Oral 1248 ml 465 ml Output Urine Total 950 ml 850 ml Other 600 ml 350 ml # Voids 4 Labs Test 05/26/20 17:10 05/27/20 04:40 05/28/20 04:50 05/29/20 03:30 Urine Color Yellow Urine Appearance Slightly cloudy Urine pH 5 (4.5-8.0) Urine Specific [place] 1.030 (1.005-1.035) Urine Protein Negative (NEGATIVE) Urine Glucose (UA) Negative (NEGATIVE) Urine Ketones Negative (NEGATIVE) Urine Blood 3+ (NEGATIVE) Urine Nitrite Negative (NEGATIVE) Urine Bilirubin Negative (NEGATIVE) Urine Urobilinogen Normal MG/DL (0.0-1.0) Urine Leukocyte Esterase 1+ (NEGATIVE) Urine RBC 2-4 /HPF (0 - 2) Urine WBC 5-10 /HPF (0 - 2) Urine Squamous Epithelial Cells Many /LPF (NONE/OCC) Urine Bacteria Moderate /HPF (NONE) Magnesium Level 2.0 MG/DL (1.8-2.4) 1.4 MG/DL (1.8-2.4) White Blood Count 4.9 K/UL (4.8-10.8) 4.9 K/UL (4.8-10.8) Red Blood Count 3.41 M/UL (4.20-5.40) 3.28 M/UL (4.20-5.40) Hemoglobin 11.0 G/DL (12.0-16.0) 10.5 G/DL (12.0-16.0) Hematocrit 34.3 % (37.0-47.0) 33.1 % (37.0-47.0) Mean Corpuscular Volume 101 FL (80-99) 101 FL (80-99) Mean Corpuscular Hemoglobin 32.1 PG (27.0-31.0) 32.1 PG (27.0-31.0) Mean Corpuscular Hemoglobin Concent 32.0 G/DL (32.0-36.0) 31.8 G/DL (32.0-36.0) Red Cell Distribution Width 13.1 % (11.6-14.8) 13.3 % (11.6-14.8) Platelet Count 265 K/UL (150-450) 227 K/UL (150-450) Mean Platelet Volume 7.1 FL (6.5-10.1) 6.9 FL (6.5-10.1) Neutrophils (%) (Auto) 59.3 % (45.0-75.0) 58.7 % (45.0-75.0) Lymphocytes (%) (Auto) 30.5 % (20.0-45.0) 33.9 % (20.0-45.0) Monocytes (%) (Auto) 9.3 % (1.0-10.0) 6.8 % (1.0-10.0) Eosinophils (%) (Auto) 0.1 % (0.0-3.0) 0.0 % (0.0-3.0) Basophils (%) (Auto) 0.8 % (0.0-2.0) 0.6 % (0.0-2.0) Sodium Level 142 MMOL/L (136-145) Potassium Level 3.8 MMOL/L (3.5-5.1) Chloride Level 105 MMOL/L (98-107) Carbon Dioxide Level 30 MMOL/L (21-32) Anion Gap 7 mmol/L (5-15) Blood Urea Nitrogen 23 mg/dL (7-18) Creatinine 1.0 MG/DL (0.55-1.30) Estimat Glomerular Filtration Rate 55.0 mL/min (>60) Glucose Level 76 MG/DL (74-106) Calcium Level 9.4 MG/DL (8.5-10.1) Total Bilirubin 0.4 MG/DL (0.2-1.0) Aspartate Amino Transf (AST/SGOT) 17 U/L (15-37) Alanine Aminotransferase (ALT/SGPT) 26 U/L (12-78) Alkaline Phosphatase 109 U/L (46-116) Total Protein 6.7 G/DL (6.4-8.2) Albumin 3.1 G/DL (3.4-5.0) Globulin 3.6 g/dL Albumin/Globulin Ratio 0.9 (1.0-2.7) Height (Feet): 5 Height (Inches): 3.00 Weight (Pounds): 138 Objective Physical Exam: Vitals: reviewed General: NAD HEENT: nc, at Neck: supple Chest: clear breath sounds bilaterally Cardiovascular: RRR, no s3, s4 Abdomen: soft, nontender, nd ++gtube, Kouch pouch ++ midline scar site is c/d/i Extremities: no cce, normal range of motion Neuro: alert and oriented Cecilio Grey MD May 29, 2020 09:23
[2020-05-29] MEDS: Citalopram Hydrobromide 10mg Tab ORAL SCH (09:29)
[2020-05-29] MEDS: BuPROPion SR 100mg tab ORAL SCH (09:29)
[2020-05-29 12:00] VITALS: BP 104/65
[2020-05-29] MEDS: HYDROcodone/Acetamin 5/325 tab ORAL PRN ×2 (12:55→18:00)
--- NOTE | 2020-05-29 14:00 | General Progress Note ---
Progress Note Progress Note Continues to slowly improve. Intubating her Kock pouch without difficulty. Abdominal pains persist but lessening Anticipate she will be ready for transfer to SNF 06/01 Plan: continue RN supervised/assisted Kock pouch self-intubations Lalo Meadows MD May 29, 2020 14:00
[2020-05-29 16:00] VITALS: BP 121/92
[2020-05-29] MEDS: Ascorbic Acid 500mg tab ORAL PRN (18:00)
[2020-05-29 20:00] VITALS: BP 114/56
[2020-05-29] MEDS: MICONAZOLE VAGIN SCH (20:27)
[2020-05-29] MEDS: Dyna-Hex 2% Top Sol 2oz TOPIC SCH (20:27)
[2020-05-29] MEDS: MYRBETRIQ 50 MG ORAL SCH (20:28)
[2020-05-29] MEDS: TraZODone 100mg tab ORAL PRN (23:05)
--- NOTE | 2020-05-29 23:18 | Psych Consult Progress Note ---
Psychiatry Progress Note Psychiatry Progress Note Medications Current Medications Medications (Trade) Dose Ordered Sig/Jori Route PRN Reason Start Time Stop Time Status Last Admin Dose Admin Acetaminophen/ Hydrocodone Bitart ([place] 5/325) 1 tab Q4H PRN ORAL pain 05/27/20 14:24 06/03/20 14:23 05/29/20 18:00 Alprazolam (Xanax) 0.5 mg DAILYPRN PRN ORAL For Anxiety 05/27/20 14:30 06/03/20 14:29 Ascorbic Acid (Vitamin C) 500 mg NEEDED PRN ORAL Constipation 05/16/20 10:15 06/15/20 10:14 05/29/20 18:00 Bupropion HCl (Wellbutrin SR) 200 mg DAILY ORAL 05/19/20 09:00 06/18/20 08:59 05/29/20 09:29 Chlorhexidine Gluconate (Kathryn-Hex 2%) 1 applic DAILY@2000 TOPIC 04/27/20 20:00 07/26/20 19:59 05/29/20 20:27 Citalopram Hydrobromide (CeleXA) 40 mg DAILY ORAL 05/22/20 09:00 06/21/20 08:59 05/29/20 09:29 Dextrose (Dextrose 50%) 25 ml Q30M PRN IV Hypoglycemia 04/28/20 08:30 07/27/20 08:29 Dextrose (Dextrose 50%) 50 ml Q30M PRN IV Hypoglycemia 04/28/20 08:30 07/27/20 08:29 Lidocaine HCl (Xylocaine Jelly 2%) 1 applic Q2H PRN TOPIC For Pain 05/17/20 10:00 08/15/20 09:59 05/23/20 23:12 Magnesium Oxide (Mag-Ox 400mg) 400 mg BID ORAL 05/30/20 09:00 06/28/20 08:59 Miconazole Nitrate (Monistat) 100 mg BEDTIME VAGIN 05/26/20 21:00 08/24/20 20:59 05/29/20 20:27 Ondansetron HCl (Zofran ODT) 4 mg Q4H PRN ORAL Nausea & Vomiting 05/29/20 14:30 06/28/20 14:29 05/29/20 18:00 Patient Own Medication (Patient's Own Med) 1 ea QHS ORAL 05/13/20 21:00 06/12/20 20:59 05/29/20 20:28 Trazodone HCl (Desyrel) 300 mg BEDTIME PRN ORAL Insomnia 05/27/20 14:24 06/26/20 14:23 05/29/20 23:05 Neurological/Psychiatric: Reports: anxiety, depressed, emotional problems Allergies: Coded Allergies: ADHESIVE TAPE (Verified Adverse Reaction, Intermediate, Rash, 08/27/19) CLEAR TAPE Objective Data Height (Feet): 5 Height (Inches): 3.00 Weight (Pounds): 138 General Appearance: no apparent distress, alert Additional Comments: Alert, oriented times self, place, situation, and date. Mood is neutral. Affect is constricted, congruent with mood. Thought process is concrete. Thought content, there is no suicidal or homicidal ideation. Cognition is intact. Insight and judgment is fair. ASSESSMENT: 1. Anxiety disorder. 2. Major depressive disorder. PLAN: 1. Continue with the current psychotropic medications. 2. No medication changes. 3. Provide the patient with reality orientation and supportive therapy. Assessment/Plan Problem List: (1) MDD (major depressive disorder) ICD Codes: F32.9 - Major depressive disorder, single episode, unspecified SNOMED: 064077200 (2) Anxiety disorder ICD Codes: F41.9 - Anxiety disorder, unspecified SNOMED: 106152911 Status: doing well, stable, progressing Assessment/Plan: welb trazadone celexa xanax the pt is reluctant to change meds Antonio Coates MD May 29, 2020 23:18
[2020-05-30] VITALS: BP 113/59
[2020-05-30] MEDS: HYDROcodone/Acetamin 5/325 tab ORAL PRN ×4 (00:47→22:20)
[2020-05-30 04:00] VITALS: BP 110/60
[2020-05-30 06:24] LABS: BASOPHILS % (AUTO) 0.4 % (0.0-2.0); HEMATOCRIT 34.2 % (37.0-47.0); HEMOGLOBIN 10.8 G/DL (12.0-16.0); MEAN CORPUSCULAR VOLUME 101 FL (80-99); NEUTROPHILS % (AUTO) 63.6 % (45.0-75.0); PLATELET COUNT 217 K/UL (150-450); RED BLOOD COUNT 3.38 M/UL (4.20-5.40); RED CELL DISTRIBUTION WIDTH 13.2 % (11.6-14.8)
[2020-05-30 07:09] LABS: ALANINE AMINOTRANSFERASE 26 U/L (12-78); ALBUMIN 3.2 G/DL (3.4-5.0); ALBUMIN/GLOBULIN RATIO 0.9 (1.0-2.7); ALKALINE PHOSPHATASE 105 U/L (46-116); ANION GAP 6 mmol/L (5-15); ASPARTATE AMINO TRANSFERASE 18 U/L (15-37); BILIRUBIN,TOTAL 0.4 MG/DL (0.2-1.0); BLOOD UREA NITROGEN 20 mg/dL (7-18); CALCIUM 9.1 MG/DL (8.5-10.1); CARBON DIOXIDE 32 MMOL/L (21-32); CHLORIDE 104 MMOL/L (98-107); CREATININE 1.1 MG/DL (0.55-1.30); PHOSPHORUS 3.6 MG/DL (2.5-4.9); POTASSIUM 3.6 MMOL/L (3.5-5.1); SODIUM 141 MMOL/L (136-145)
[2020-05-30 08:00] VITALS: BP 102/56
--- NOTE | 2020-05-30 09:23 | General Progress Note ---
Progress Note Progress Note AVSS Slowly getting better and more independent with Kock pouch self- intubations. Still benefitting from RN support/assistance.Not eating well - taking Ensure BID Abdomen soft, well healed Urine 1150 Kock pouch ileo 635 labs all stable Mg up 1.8 - now on po Mag oxide BID Imp: slowly improving Plan: continue current regimen Lalo Meadows MD May 30, 2020 09:23
[2020-05-30] MEDS: Citalopram Hydrobromide 10mg Tab ORAL SCH (09:36)
[2020-05-30] MEDS: BuPROPion SR 100mg tab ORAL SCH (09:37)
[2020-05-30] MEDS: Magnesium Oxide 400mg tab ORAL SCH ×2 (09:37→18:15)
[2020-05-30] MEDS: Ascorbic Acid 500mg tab ORAL PRN (11:35)
--- NOTE | 2020-05-30 11:35 | Pulmonology Progress Note ---
Subjective Interval Events: None new HEENT: Repors: no symptoms Respiratory: Reports: no symptoms Cardiovascular: Reports: no symptoms Gastrointestinal/Abdominal: Reports: other Allergies: Coded Allergies: ADHESIVE TAPE (Verified Adverse Reaction, Intermediate, Rash, 08/27/19) CLEAR TAPE Objective Last 24 Hour Vital Signs Date Time Temp Pulse Resp B/P (MAP) Pulse Ox O2 Delivery O2 Flow Rate FiO2 05/30/20 08:00 98.3 74 20 102/56 (71) 95 05/30/20 04:00 98.4 82 20 110/60 (77) 95 05/30/20 00:00 98.0 78 20 113/59 (77) 97 05/29/20 21:00 Room Air 05/29/20 20:00 98.3 89 20 114/56 (75) 96 05/29/20 16:00 98.1 79 17 121/92 (102) 97 05/29/20 12:00 98.3 90 17 104/65 (78) 98 Intake and Output 05/29/20 05/30/20 19:00 07:00 Intake Total 892 ml 387 ml Output Total 985 ml 800 ml Balance -93 ml -413 ml Intake Oral 892 ml 387 ml Output Urine Total 750 ml 400 ml Other 235 ml 400 ml # Voids 4 3 General Appearance: no acute distress HEENT: normocephalic Respiratory: chest wall non-tender, lungs clear Cardiovascular: normal peripheral pulses Abdomen: normal bowel sounds Laboratory Tests 05/30/20 03:30: White Blood Count 5.0, Red Blood Count 3.38L, Hemoglobin 10.8L, Hematocrit 34.2L , Mean Corpuscular Volume 101H, Mean Corpuscular Hemoglobin 31.9H, Mean Corpuscular Hemoglobin Concent 31.5L, Red Cell Distribution Width 13.2, Platelet Count 217, Mean Platelet Volume 6.7, Neutrophils (%) (Auto) 63.6, Lymphocytes (%) (Auto) 29.0, Monocytes (%) (Auto) 7.0, Eosinophils (%) (Auto) 0.0, Basophils (%) (Auto) 0.4, Sodium Level 141, Potassium Level 3.6, Chloride Level 104, Carbon Dioxide Level 32, Anion Gap 6, Blood Urea Nitrogen 20H, Creatinine 1.1, Estimat Glomerular Filtration Rate 49.3, Glucose Level 69L, Calcium Level 9.1, Phosphorus Level 3.6, Magnesium Level 1.8, Total Bilirubin 0.4, Aspartate Amino Transf (AST/SGOT) 18, Alanine Aminotransferase (ALT/SGPT) 26, Alkaline Phosphatase 105, Total Protein 6.9, Albumin 3.2L, Globulin 3.7, Albumin/Globulin Ratio 0.9L Current Medications Medications (Trade) Dose Ordered Sig/Jori Route PRN Reason Start Time Stop Time Status Last Admin Dose Admin Acetaminophen/ Hydrocodone Bitart ([place] 5/325) 1 tab Q4H PRN ORAL pain 05/27/20 14:24 06/03/20 14:23 05/30/20 09:41 Alprazolam (Xanax) 0.5 mg DAILYPRN PRN ORAL For Anxiety 05/27/20 14:30 06/03/20 14:29 Ascorbic Acid (Vitamin C) 500 mg NEEDED PRN ORAL Constipation 05/16/20 10:15 06/15/20 10:14 05/29/20 18:00 Bupropion HCl (Wellbutrin SR) 200 mg DAILY ORAL 05/19/20 09:00 06/18/20 08:59 05/30/20 09:37 Chlorhexidine Gluconate (Kathryn-Hex 2%) 1 applic DAILY@2000 TOPIC 04/27/20 20:00 07/26/20 19:59 05/29/20 20:27 Citalopram Hydrobromide (CeleXA) 40 mg DAILY ORAL 05/22/20 09:00 06/21/20 08:59 05/30/20 09:36 Dextrose (Dextrose 50%) 25 ml Q30M PRN IV Hypoglycemia 04/28/20 08:30 07/27/20 08:29 Dextrose (Dextrose 50%) 50 ml Q30M PRN IV Hypoglycemia 04/28/20 08:30 07/27/20 08:29 Lidocaine HCl (Xylocaine Jelly 2%) 1 applic Q2H PRN TOPIC For Pain 05/17/20 10:00 08/15/20 09:59 05/23/20 23:12 Magnesium Oxide (Mag-Ox 400mg) 400 mg BID ORAL 05/30/20 09:00 06/28/20 08:59 05/30/20 09:37 Miconazole Nitrate (Monistat) 100 mg BEDTIME VAGIN 05/26/20 21:00 08/24/20 20:59 05/29/20 20:27 Ondansetron HCl (Zofran ODT) 4 mg Q4H PRN ORAL Nausea & Vomiting 05/29/20 14:30 06/28/20 14:29 05/29/20 18:00 Patient Own Medication (Patient's Own Med) 1 ea QHS ORAL 05/13/20 21:00 06/12/20 20:59 05/29/20 20:28 Trazodone HCl (Desyrel) 300 mg BEDTIME PRN ORAL Insomnia 05/27/20 14:24 06/26/20 14:23 05/29/20 23:05 Assessment/Plan Assessment/Plan IMPRESSION: 1. Atelectasis, right lung. 2. Postnasal drip/allergic rhinitis. 3. Status post laparotomy and lysis of adhesions. 4. Chronic pain. 5. Ulcerative colitis. DISCUSSION: Respiratory status is stable Continue present care No fever Saturating well on RA Shree Pope M.D. Shree Pope MD May 30, 2020 11:35
[2020-05-30 12:00] VITALS: BP 104/58
[2020-05-30 16:00] VITALS: BP 100/61
[2020-05-30 20:00] VITALS: BP 102/57
[2020-05-30] MEDS: MYRBETRIQ 50 MG ORAL SCH (20:27)
[2020-05-30] MEDS: Dyna-Hex 2% Top Sol 2oz TOPIC SCH (20:27)
[2020-05-30] MEDS: MICONAZOLE VAGIN SCH (20:27)
[2020-05-30] MEDS: TraZODone 100mg tab ORAL PRN (23:23)
[2020-05-31] VITALS: BP 113/71
[2020-05-31 04:00] VITALS: BP 108/57
[2020-05-31 08:00] VITALS: BP 109/57
--- NOTE | 2020-05-31 10:01 | General Progress Note ---
Progress Note Progress Note Doing better with intubating her Kock pouch continent ileostomy. Occasional nausea but doing well overall Abdomen soft, flat, non-tender I&O satisfactory Mg 1.5 despite po MgOxide BID Imp: improved Plan; Discharge supplies today Transfer to SNF in AM or 8/4 Mg infusion today x 2 and increase po MgOxide to TID f/u labs in AM Lalo Meadows MD May 31, 2020 10:01
[2020-05-31] MEDS: BuPROPion SR 100mg tab ORAL SCH (10:34)
[2020-05-31] MEDS: Citalopram Hydrobromide 10mg Tab ORAL SCH (10:34)
[2020-05-31] MEDS: HYDROcodone/Acetamin 5/325 tab ORAL PRN ×3 (10:56→21:35)
[2020-05-31] MEDS ORDERED: MAGOX 400400 MG ORAL (11:08)
[2020-05-31] MEDS ORDERED: ZOFRAN4 M1 ORAL (11:09)
[2020-05-31 12:00] VITALS: BP 103/64
[2020-05-31] MEDS ORDERED: Tubing IV Secondary IV ONE (12:06)
[2020-05-31] MEDS ORDERED: NS 275ml ONE (12:06)
[2020-05-31] MEDS: Magnesium Oxide 400mg tab ORAL SCH ×2 (12:31→17:20)
--- NOTE | 2020-05-31 12:31 | Hematology/Onc Progress Note ---
Assessment/Plan Assessment/Plan ASSESSMENT AND PLAN: # SEVERE Thrombocytopenia that is severe, on admission, plt was wnl and now dropped to 8K The patient comes in with high-grade bowel obstruction and malfunction Kock pouch continent ileostomy. The patient is status post surgery including release of the bowel obstruction. The patient was noted to have pus in small intra-abdominal abscess. It was growing out Klebsiella pneumoniae and Enterococcus. The patient has a low platele count and could be secondary to cefepime, which the patient is on. --> cefepime has been stopped, likely culprits --> as per ID antibiotics, vancomycin, Cipro, and Flagyl. --> dic panel has been ordered --> peripheral smear has been ordered as well --> hapto neg and fibrinogen 738 --> hold off steroids --> no heparin or lovenox administered recently --> duplex lower ext ordered-->neg for dvt --> transfuse 2 units plt 05/07 --> plt trend 8k-->6k->34-->73->46->60-->74-->136-->163-->293->363->375-->383-> 402->217 --> HIT antbody test ordered-->neg --> cr is wnl, less likely aHUS, also no schistocytes on smear noted --> also less likely iTP but is in differential # Anemia likely due to hemoldilution --> likely hemodilutional and chronic disease --> hgb trend 9.6-->9.4-->11.2-->10.3->11-->10.5-->10.8 --> anemia panel if <10 # The patient has a history of Kock pouch continent ileostomy. # History of ulcerative colitis. # History of multiple abdominal surgeries. # History of spine surgery. # History of parathyroid adenoma. # History of proctocolectomy. # History of laparotomy. The timing of this note does not necessarily reflect the time of the patient was seen. Greatly appreciate consultation. Subjective Constitutional: Denies: no symptoms, chills, fever, malaise, weakness, other HEENT: Denies: no symptoms, eye pain, blurred vision, tearing, double vision, ear pain, ear discharge, nose pain, nose congestion, throat pain, throat swelling, mouth pain, mouth swelling, other Cardiovascular: Denies: no symptoms, chest pain, edema, irregular heart rate, lightheadedness, palpitations, syncope, other Respiratory: Denies: no symptoms, cough, shortness of breath, SOB with excertion, SOB at rest, sputum, wheezing, other Genitourinary: Denies: no symptoms, burning, discharge, frequency, flank pain, hematuria, incontinence, pain, urgency, other Endocrine: Denies: no symptoms, excessive sweating, flushing, intolerance to cold, intolerance to heat, increased hunger, increased thirst, increased urine, unexplained weight gain, unexplained weight loss, other Hematologic/Lymphatic: Denies: no symptoms, anemia, easy bleeding, easy bruising, adenopathy, other Allergies: Coded Allergies: ADHESIVE TAPE (Verified Adverse Reaction, Intermediate, Rash, 08/27/19) CLEAR TAPE Subjective 05/08 gtube connected, plts 6k, ordered for transfusion, consider ahus as well, will get hit ab test 05/10 plt is 73, no bleeding, feelingbetter, holding off transfusion 05/11 labs are noted, no bleeding, plt 46k, remains on antibiotics, may consider biopsy tomorrow if labs do not improve 05/12 plt is better, gtube is clamped, no bleeding, no bleeding 05/13 platelets have briskly improved, dw pt and will hold off marrow 05/14 awake and alert, new small pleural effusion, no sob 05/15 meds noted, no bleeding, irish rn, no night sweats, still with pain abdominal 05/17 meds reviewed, no bleeding, irish rn, no major changes, plt 293 05/18 labs noted, no bleeding, dw rn, no night sweats 05/19 labs are reviewed, plt 375, no bleeding, meds noted 05/20 meds noted, no bleeding, no chills, plt better 723 no bleeding no chills, no fc, hgb 10.3, no hemolysis 05/22 gtube is clamped, no night sweats, meds reviewed, no major changes 05/23 still with some mild pain, no bleeding, meds reviewed, plt better 05/24 comfortable, no new events no changes, no bleeding this am 05/25 labs are noted, no bleeding, cbc reviewed 05/26 is comfortable, no bleeding, cbc noted, no night sweats 05/27 meds have been reviewed, irish rn, no bleeding, labs noted 05/28 has been accepted to [facility], for dc soon 05/29 labs reviewed, plt stable, however hgb 10.5, seen by bedside Dr. Meadows 05/31 labs are noted, no bleeding, irish rn, no hemolysis is seen Objective Objective Current Medications Medications (Trade) Dose Ordered Sig/Jori Route PRN Reason Start Time Stop Time Status Last Admin Dose Admin Acetaminophen/ Hydrocodone Bitart ([place] 5/325) 1 tab Q4H PRN ORAL pain 05/27/20 14:24 06/03/20 14:23 05/31/20 10:56 Alprazolam (Xanax) 0.5 mg DAILYPRN PRN ORAL For Anxiety 05/27/20 14:30 06/03/20 14:29 Ascorbic Acid (Vitamin C) 500 mg NEEDED PRN ORAL Constipation 05/16/20 10:15 06/15/20 10:14 05/30/20 11:35 Bupropion HCl (Wellbutrin SR) 200 mg DAILY ORAL 05/19/20 09:00 06/18/20 08:59 05/31/20 10:34 Chlorhexidine Gluconate (Kathryn-Hex 2%) 1 applic DAILY@1999 TOPIC 04/27/20 20:00 07/26/20 19:59 05/30/20 20:27 Citalopram Hydrobromide (CeleXA) 40 mg DAILY ORAL 05/22/20 09:00 06/21/20 08:59 05/31/20 10:34 Dextrose (Dextrose 50%) 25 ml Q30M PRN IV Hypoglycemia 04/28/20 08:30 07/27/20 08:29 Dextrose (Dextrose 50%) 50 ml Q30M PRN IV Hypoglycemia 04/28/20 08:30 07/27/20 08:29 Lidocaine HCl (Xylocaine Jelly 2%) 1 applic Q2H PRN TOPIC For Pain 05/17/20 10:00 08/15/20 09:59 05/23/20 23:12 Magnesium Oxide (Mag-Ox 400mg) 400 mg TID ORAL 05/31/20 13:00 06/28/20 08:59 Miconazole Nitrate (Monistat) 100 mg BEDTIME VAGIN 05/26/20 21:00 08/24/20 20:59 05/30/20 20:27 Ondansetron HCl (Zofran ODT) 4 mg Q4H PRN ORAL Nausea & Vomiting 05/29/20 14:30 06/28/20 14:29 05/30/20 23:50 Patient Own Medication (Patient's Own Med) 1 ea QHS ORAL 05/13/20 21:00 06/12/20 20:59 05/30/20 20:27 Trazodone HCl (Desyrel) 300 mg BEDTIME PRN ORAL Insomnia 05/27/20 14:24 06/26/20 14:23 05/30/20 23:23 Last 24 Hour Vital Signs Date Time Temp Pulse Resp B/P (MAP) Pulse Ox O2 Delivery O2 Flow Rate FiO2 05/31/20 12:00 98.6 82 18 103/64 (77) 96 05/31/20 08:00 98.0 76 21 109/57 (74) 98 05/31/20 04:00 97.6 81 20 108/57 (74) 97 05/31/20 00:00 98.7 82 18 113/71 (85) 97 05/30/20 22:50 98.7 05/30/20 21:00 Room Air 05/30/20 20:00 99.8 84 20 102/57 (72) 95 05/30/20 16:00 98.7 85 20 100/61 (74) 94 05/30/20 12:00 98.6 87 18 104/58 (73) 97 05/30/20 09:00 Room Air 05/30/20 08:00 98.3 74 20 102/56 (71) 95 05/30/20 04:00 98.4 82 20 110/60 (77) 95 05/30/20 00:00 98.0 78 20 113/59 (77) 97 05/29/20 21:00 Room Air 05/29/20 20:00 98.3 89 20 114/56 (75) 96 05/29/20 16:00 98.1 79 17 121/92 (102) 97 Intake and Output 05/30/20 05/31/20 19:00 07:00 Intake Total 1540 ml 720 ml Output Total 1450 ml 900 ml Balance 90 ml -180 ml Intake Oral 1540 ml 720 ml Output Urine Total 875 ml 700 ml Other 575 ml 200 ml # Voids 5 3 Labs Test 05/29/20 03:30 05/30/20 03:30 05/31/20 05:15 White Blood Count 4.9 K/UL (4.8-10.8) 5.0 K/UL (4.8-10.8) Red Blood Count 3.28 M/UL (4.20-5.40) 3.38 M/UL (4.20-5.40) Hemoglobin 10.5 G/DL (12.0-16.0) 10.8 G/DL (12.0-16.0) Hematocrit 33.1 % (37.0-47.0) 34.2 % (37.0-47.0) Mean Corpuscular Volume 101 FL (80-99) 101 FL (80-99) Mean Corpuscular Hemoglobin 32.1 PG (27.0-31.0) 31.9 PG (27.0-31.0) Mean Corpuscular Hemoglobin Concent 31.8 G/DL (32.0-36.0) 31.5 G/DL (32.0-36.0) Red Cell Distribution Width 13.3 % (11.6-14.8) 13.2 % (11.6-14.8) Platelet Count 227 K/UL (150-450) 217 K/UL (150-450) Mean Platelet Volume 6.9 FL (6.5-10.1) 6.7 FL (6.5-10.1) Neutrophils (%) (Auto) 58.7 % (45.0-75.0) 63.6 % (45.0-75.0) Lymphocytes (%) (Auto) 33.9 % (20.0-45.0) 29.0 % (20.0-45.0) Monocytes (%) (Auto) 6.8 % (1.0-10.0) 7.0 % (1.0-10.0) Eosinophils (%) (Auto) 0.0 % (0.0-3.0) 0.0 % (0.0-3.0) Basophils (%) (Auto) 0.6 % (0.0-2.0) 0.4 % (0.0-2.0) Sodium Level 142 MMOL/L (136-145) 141 MMOL/L (136-145) Potassium Level 3.8 MMOL/L (3.5-5.1) 3.6 MMOL/L (3.5-5.1) Chloride Level 105 MMOL/L (98-107) 104 MMOL/L (98-107) Carbon Dioxide Level 30 MMOL/L (21-32) 32 MMOL/L (21-32) Anion Gap 7 mmol/L (5-15) 6 mmol/L (5-15) Blood Urea Nitrogen 23 mg/dL (7-18) 20 mg/dL (7-18) Creatinine 1.0 MG/DL (0.55-1.30) 1.1 MG/DL (0.55-1.30) Estimat Glomerular Filtration Rate 55.0 mL/min (>60) 49.3 mL/min (>60) Glucose Level 76 MG/DL (74-106) 69 MG/DL (74-106) Calcium Level 9.4 MG/DL (8.5-10.1) 9.1 MG/DL (8.5-10.1) Magnesium Level 1.4 MG/DL (1.8-2.4) 1.8 MG/DL (1.8-2.4) 1.5 MG/DL (1.8-2.4) Total Bilirubin 0.4 MG/DL (0.2-1.0) 0.4 MG/DL (0.2-1.0) Aspartate Amino Transf (AST/SGOT) 17 U/L (15-37) 18 U/L (15-37) Alanine Aminotransferase (ALT/SGPT) 26 U/L (12-78) 26 U/L (12-78) Alkaline Phosphatase 109 U/L (46-116) 105 U/L (46-116) Total Protein 6.7 G/DL (6.4-8.2) 6.9 G/DL (6.4-8.2) Albumin 3.1 G/DL (3.4-5.0) 3.2 G/DL (3.4-5.0) Globulin 3.6 g/dL 3.7 g/dL Albumin/Globulin Ratio 0.9 (1.0-2.7) 0.9 (1.0-2.7) Phosphorus Level 3.6 MG/DL (2.5-4.9) Height (Feet): 5 Height (Inches): 3.00 Weight (Pounds): 138 Objective Physical Exam: Vitals: reviewed General: NAD HEENT: nc, at Neck: supple Chest: clear breath sounds bilaterally Cardiovascular: RRR, no s3, s4 Abdomen: soft, nontender, nd ++gtube, Kouch pouch ++ midline scar site is c/d/i Extremities: no cce, normal range of motion Neuro: alert and oriented Cecilio Grey MD May 31, 2020 12:31
[2020-05-31] MEDS: Ascorbic Acid 500mg tab ORAL PRN (12:36)
[2020-05-31 16:00] VITALS: BP 125/99
[2020-05-31 20:00] VITALS: BP 108/61
[2020-05-31] MEDS: Dyna-Hex 2% Top Sol 2oz TOPIC SCH (20:10)
[2020-05-31] MEDS: MYRBETRIQ 50 MG ORAL SCH (20:10)
[2020-05-31] MEDS: MICONAZOLE VAGIN SCH (20:11)
[2020-05-31] MEDS: TraZODone 100mg tab ORAL PRN (22:45)
[2020-06-01] VITALS: BP 105/64
[2020-06-01 04:00] VITALS: BP 107/60
[2020-06-01] MEDS: HYDROcodone/Acetamin 5/325 tab ORAL PRN ×2 (05:23→11:46)
[2020-06-01 06:37] LABS: BASOPHILS % (AUTO) 0.4 % (0.0-2.0); EOSINOPHILS % (AUTO) 0.1 % (0.0-3.0); HEMATOCRIT 32.8 % (37.0-47.0); HEMOGLOBIN 10.4 G/DL (12.0-16.0); LYMPHOCYTES % (AUTO) 36.3 % (20.0-45.0); MEAN CORPUSCULAR VOLUME 101 FL (80-99); MONOCYTES % (AUTO) 8.6 % (1.0-10.0); NEUTROPHILS % (AUTO) 54.6 % (45.0-75.0); PLATELET COUNT 180 K/UL (150-450); RED BLOOD COUNT 3.25 M/UL (4.20-5.40); RED CELL DISTRIBUTION WIDTH 13.3 % (11.6-14.8); WHITE BLOOD COUNT 3.9 K/UL (4.8-10.8)
[2020-06-01 07:13] LABS: ALANINE AMINOTRANSFERASE 17 U/L (12-78); ALBUMIN 3.2 G/DL (3.4-5.0); ALBUMIN/GLOBULIN RATIO 0.9 (1.0-2.7); ALKALINE PHOSPHATASE 91 U/L (46-116); ANION GAP 5 mmol/L (5-15); ASPARTATE AMINO TRANSFERASE 16 U/L (15-37); BILIRUBIN,TOTAL 0.3 MG/DL (0.2-1.0); BLOOD UREA NITROGEN 18 mg/dL (7-18); CALCIUM 9.1 MG/DL (8.5-10.1); CARBON DIOXIDE 31 MMOL/L (21-32); CHLORIDE 105 MMOL/L (98-107); CREATININE 1.1 MG/DL (0.55-1.30); PHOSPHORUS 3.6 MG/DL (2.5-4.9); POTASSIUM 3.8 MMOL/L (3.5-5.1); SODIUM 141 MMOL/L (136-145)
[2020-06-01 08:00] VITALS: BP 107/61
[2020-06-01] MEDS: Citalopram Hydrobromide 10mg Tab ORAL SCH (08:41)
[2020-06-01] MEDS: Magnesium Oxide 400mg tab ORAL SCH ×2 (08:41→12:30)
[2020-06-01] MEDS: BuPROPion SR 100mg tab ORAL SCH (08:41)
[2020-06-01] MEDS: Ascorbic Acid 500mg tab ORAL PRN (08:53)
--- NOTE | 2020-06-01 09:12 | General Progress Note ---
Progress Note Progress Note Doing well overall. Intubating easier. Abd soft I&O, labs okay Imp: improved Plan: discharge to SNF f/u with me in 2 weeks and prn Lalo Meadows MD Jun 01, 2020 09:12
[2020-06-01 12:00] VITALS: BP 106/61
--- NOTE | 2020-06-01 14:18 | Hematology/Onc Progress Note ---
Assessment/Plan Assessment/Plan ASSESSMENT AND PLAN: # SEVERE Thrombocytopenia that is severe, on admission, plt was wnl and now dropped to 8K The patient comes in with high-grade bowel obstruction and malfunction Kock pouch continent ileostomy. The patient is status post surgery including release of the bowel obstruction. The patient was noted to have pus in small intra-abdominal abscess. It was growing out Klebsiella pneumoniae and Enterococcus. The patient has a low platele count and could be secondary to cefepime, which the patient is on. --> cefepime has been stopped, likely culprits --> as per ID antibiotics, vancomycin, Cipro, and Flagyl. --> dic panel has been ordered --> peripheral smear has been ordered as well --> hapto neg and fibrinogen 738 --> hold off steroids --> no heparin or lovenox administered recently --> duplex lower ext ordered-->neg for dvt --> transfuse 2 units plt 05/07 --> plt trend 8k-->6k->34-->73->46->60-->74-->136-->163-->293->363->375-->383-> 402->217 --> HIT antbody test ordered-->neg --> cr is wnl, less likely aHUS, also no schistocytes on smear noted --> also less likely iTP but is in differential # Anemia likely due to hemoldilution --> likely hemodilutional and chronic disease --> hgb trend 9.6-->9.4-->11.2-->10.3->11-->10.5-->10.8 --> anemia panel if <10 # The patient has a history of Kock pouch continent ileostomy. # History of ulcerative colitis. # History of multiple abdominal surgeries. # History of spine surgery. # History of parathyroid adenoma. # History of proctocolectomy. # History of laparotomy. The timing of this note does not necessarily reflect the time of the patient was seen. Greatly appreciate consultation. Subjective Constitutional: Denies: no symptoms, chills, fever, malaise, weakness, other HEENT: Denies: no symptoms, eye pain, blurred vision, tearing, double vision, ear pain, ear discharge, nose pain, nose congestion, throat pain, throat swelling, mouth pain, mouth swelling, other Respiratory: Denies: no symptoms, cough, shortness of breath, SOB with excertion, SOB at rest, sputum, wheezing, other Gastrointestinal/Abdominal: Denies: no symptoms, abdomen distended, abdominal pain, black stools, tarry stools, blood in stool, constipated, diarrhea, difficulty swallowing, nausea, poor appetite, poor fluid intake, rectal bleeding , vomiting, other Neurologic/Psychiatric: Denies: no symptoms, anxiety, depressed, emotional problems, headache, numbness, paresthesia, pre-existing deficit, seizure, tingling, tremors, weakness, other Endocrine: Denies: no symptoms, excessive sweating, flushing, intolerance to cold, intolerance to heat, increased hunger, increased thirst, increased urine, unexplained weight gain, unexplained weight loss, other Hematologic/Lymphatic: Denies: no symptoms, anemia, easy bleeding, easy bruising, adenopathy, other Allergies: Coded Allergies: ADHESIVE TAPE (Verified Adverse Reaction, Intermediate, Rash, 08/27/19) CLEAR TAPE Subjective 05/08 gtube connected, plts 6k, ordered for transfusion, consider ahus as well, will get hit ab test 05/10 plt is 73, no bleeding, feelingbetter, holding off transfusion 05/11 labs are noted, no bleeding, plt 46k, remains on antibiotics, may consider biopsy tomorrow if labs do not improve 05/12 plt is better, gtube is clamped, no bleeding, no bleeding 05/13 platelets have briskly improved, dw pt and will hold off marrow 05/14 awake and alert, new small pleural effusion, no sob 05/15 meds noted, no bleeding, dw rn, no night sweats, still with pain abdominal 05/17 meds reviewed, no bleeding, dw rn, no major changes, plt 293 05/18 labs noted, no bleeding, irish rn, no night sweats 05/19 labs are reviewed, plt 375, no bleeding, meds noted 05/20 meds noted, no bleeding, no chills, plt better 723 no bleeding no chills, no fc, hgb 10.3, no hemolysis 05/22 gtube is clamped, no night sweats, meds reviewed, no major changes 05/23 still with some mild pain, no bleeding, meds reviewed, plt better 05/24 comfortable, no new events no changes, no bleeding this am 05/25 labs are noted, no bleeding, cbc reviewed 05/26 is comfortable, no bleeding, cbc noted, no night sweats 05/27 meds have been reviewed, irish rn, no bleeding, labs noted 05/28 has been accepted to [facility], for dc soon 05/29 labs reviewed, plt stable, however hgb 10.5, seen by bedside Dr. Meadows 05/31 labs are noted, no bleeding, irish boone, no hemolysis is seen 06/01 for dc today to [facility], has been cleared by heme Objective Objective Last 24 Hour Vital Signs Date Time Temp Pulse Resp B/P (MAP) Pulse Ox O2 Delivery O2 Flow Rate FiO2 06/01/20 12:00 97.8 82 19 106/61 (76) 97 06/01/20 09:07 Room Air 06/01/20 08:00 98.2 85 18 107/61 (76) 96 06/01/20 04:00 98.0 82 18 107/60 (76) 97 06/01/20 00:00 98.0 80 16 105/64 (78) 96 05/31/20 20:48 Room Air 05/31/20 20:00 98.3 82 16 108/61 (77) 96 05/31/20 16:00 98.3 88 20 125/99 (108) 99 05/31/20 12:00 98.6 82 18 103/64 (77) 96 05/31/20 09:00 Room Air 05/31/20 08:00 98.0 76 21 109/57 (74) 98 05/31/20 04:00 97.6 81 20 108/57 (74) 97 05/31/20 00:00 98.7 82 18 113/71 (85) 97 05/30/20 22:50 98.7 05/30/20 21:00 Room Air 05/30/20 20:00 99.8 84 20 102/57 (72) 95 05/30/20 16:00 98.7 85 20 100/61 (74) 94 Intake and Output 05/31/20 06/01/20 19:00 07:00 Intake Total 1184 ml 720 ml Output Total 1405 ml 1150 ml Balance -221 ml -430 ml Intake Oral 1164 ml 720 ml Other 20 ml Output Urine Total 750 ml 950 ml Other 655 ml 200 ml # Voids 6 Labs Test 05/30/20 03:30 05/31/20 05:15 06/01/20 05:00 White Blood Count 5.0 K/UL (4.8-10.8) 3.9 K/UL (4.8-10.8) Red Blood Count 3.38 M/UL (4.20-5.40) 3.25 M/UL (4.20-5.40) Hemoglobin 10.8 G/DL (12.0-16.0) 10.4 G/DL (12.0-16.0) Hematocrit 34.2 % (37.0-47.0) 32.8 % (37.0-47.0) Mean Corpuscular Volume 101 FL (80-99) 101 FL (80-99) Mean Corpuscular Hemoglobin 31.9 PG (27.0-31.0) 32.1 PG (27.0-31.0) Mean Corpuscular Hemoglobin Concent 31.5 G/DL (32.0-36.0) 31.8 G/DL (32.0-36.0) Red Cell Distribution Width 13.2 % (11.6-14.8) 13.3 % (11.6-14.8) Platelet Count 217 K/UL (150-450) 180 K/UL (150-450) Mean Platelet Volume 6.7 FL (6.5-10.1) 6.8 FL (6.5-10.1) Neutrophils (%) (Auto) 63.6 % (45.0-75.0) 54.6 % (45.0-75.0) Lymphocytes (%) (Auto) 29.0 % (20.0-45.0) 36.3 % (20.0-45.0) Monocytes (%) (Auto) 7.0 % (1.0-10.0) 8.6 % (1.0-10.0) Eosinophils (%) (Auto) 0.0 % (0.0-3.0) 0.1 % (0.0-3.0) Basophils (%) (Auto) 0.4 % (0.0-2.0) 0.4 % (0.0-2.0) Sodium Level 141 MMOL/L (136-145) 141 MMOL/L (136-145) Potassium Level 3.6 MMOL/L (3.5-5.1) 3.8 MMOL/L (3.5-5.1) Chloride Level 104 MMOL/L (98-107) 105 MMOL/L (98-107) Carbon Dioxide Level 32 MMOL/L (21-32) 31 MMOL/L (21-32) Anion Gap 6 mmol/L (5-15) 5 mmol/L (5-15) Blood Urea Nitrogen 20 mg/dL (7-18) 18 mg/dL (7-18) Creatinine 1.1 MG/DL (0.55-1.30) 1.1 MG/DL (0.55-1.30) Estimat Glomerular Filtration Rate 49.3 mL/min (>60) 49.3 mL/min (>60) Glucose Level 69 MG/DL (74-106) 80 MG/DL (74-106) Calcium Level 9.1 MG/DL (8.5-10.1) 9.1 MG/DL (8.5-10.1) Phosphorus Level 3.6 MG/DL (2.5-4.9) 3.6 MG/DL (2.5-4.9) Magnesium Level 1.8 MG/DL (1.8-2.4) 1.5 MG/DL (1.8-2.4) 1.7 MG/DL (1.8-2.4) Total Bilirubin 0.4 MG/DL (0.2-1.0) 0.3 MG/DL (0.2-1.0) Aspartate Amino Transf (AST/SGOT) 18 U/L (15-37) 16 U/L (15-37) Alanine Aminotransferase (ALT/SGPT) 26 U/L (12-78) 17 U/L (12-78) Alkaline Phosphatase 105 U/L (46-116) 91 U/L (46-116) Total Protein 6.9 G/DL (6.4-8.2) 6.6 G/DL (6.4-8.2) Albumin 3.2 G/DL (3.4-5.0) 3.2 G/DL (3.4-5.0) Globulin 3.7 g/dL 3.4 g/dL Albumin/Globulin Ratio 0.9 (1.0-2.7) 0.9 (1.0-2.7) Height (Feet): 5 Height (Inches): 3.00 Weight (Pounds): 138 Objective Physical Exam: Vitals: reviewed General: NAD HEENT: nc, at Neck: supple Chest: clear breath sounds bilaterally Cardiovascular: RRR, no s3, s4 Abdomen: soft, nontender, nd ++gtube, Kouch pouch ++ midline scar site is c/d/i Extremities: no cce, normal range of motion Neuro: alert and oriented Cecilio Grey MD Jun 01, 2020 14:18
--- NOTE | 2020-06-02 01:00 | Progress Note ---
DATE: 06/01/2020 SUBJECTIVE: Patient is seen in her room. Being discharged today. No behavior issues noted. She is pleasant. She has some anxiety of being alone. MENTAL STATUS EXAMINATION: Alert, oriented times self, place, situation, and date. Mood is neutral. Affect is constricted, congruent with mood. Thought process is concrete. Thought content, there is no suicidal or homicidal ideation. Cognition is intact. Insight and judgment is fair. ASSESSMENT: 1. Anxiety disorder. 2. Major depressive disorder. PLAN: 1. Continue with the current psychotropic medications. 2. No medication changes. 3. Provide the patient with reality orientation and supportive therapy. Antonio Coates M.D. DR: JASON JOB#: [id number] CC:
--- NOTE | 2020-06-07 19:14 | Discharge Summary ---
Discharge Summary Discharge Summary _ DATE OF ADMISSION: 04/26/2020 DATE OF DISCHARGE: 06/01/2020 DISCHARGED BY: Dr. Lalo Meadows CONSULTANTS: Dr. Antonio Ridley ISTORY OF PRESENT ILLNESS: The patient admitted from emergency room in the early evening, April 26, 2020. The patient presented with inability to catheterize her Kock pouch continent ileostomy to evacuate stool and gas with resulting abdominal pain, cramping with bloating, nausea, and emesis x1. The patient has a past history of ulcerative colitis and underwent proctocolectomy with Kock pouch in 1978. She required laparotomy for small bowel obstruction in 2000 and on 08/28/2019, underwent laparotomy with creation of a new valve and stoma with preservation of her Kock pouch and revision of the stoma in-depth. Following that surgery, the patient had issues with abdominal pain that persisted for several months. CAT scan was done November 28, 2019 revealing nothing to explain her pain, but there were enlarged mesenteric lymph nodes. 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 She also required a course of Cipro subsequently. She has had some difficulty with intubation and underwent pouch endoscopy, November 14, 2019 revealing mild redundancy with angulation of the access segment. On the day of admission, the patient tried to empty her pouch at 3 in the morning and could not get a catheter in. She was advised to come to the emergency room. The ostomy nurse was able to insert a 24-Slovenian Busch catheter into her pouch evacuating several 100 mL of contents. He could not insert a 28-Slovenian Busch. The catheter was left in place to gravity drainage. BRIEF HOSPITAL COURSE: Upon admission, patient was placed on n.p.o. PICC line was inserted. Patient underwent CT of the abdomen and pelvis with contrast that showed possible partial small bowel obstruction. Patient was started on TPN. Connected to continuous drainage. On April 29, 2020, patient underwent laparotomy with small bowel release dissection and release of severe high-grade partial small bowel obstruction due to adhesions; release of small chronic intra-abdominal abscess; testing of Kock pouch continent ileostomy; and catheter gastrostomy. The patient tolerated procedure well and left the operating room in stable condition. Postop day #2, patient was comfortable with Dilaudid SENIOR BUDGET ANALYST. Abdomen was soft with mild distention, incision was clean, stoma stable. Patient was kept on n.p.o. with TPN. IV fluid was increased. Patient was encouraged to ambulate. Postop day #3. Patient still refusing to ambulate despite pain controlled with Dilaudid SENIOR BUDGET ANALYST. Abdomen was soft but mildly distended. She was given magnesium and phosphorus infusions. She was given heparin subcutaneous injections. She was continued on n.p.o. status. Postop day #4. Patient complained of severe abdominal cramping pains. Pouch ileostomy output was scant. Tube was manipulated and flushed. Gastrostomy kock pouch catheter was connected to drainage. She was given added pain control with Toradol. Unasyn was discontinued. She was started on cefepime. Postop day #5. Patient has mild tachycardia. Still unable to move around or get up due to pain. Abdomen was soft, slightly distended, diffuse tenderness with no guarding. Stoma was stable. She was continued on n.p.o. Continued on Busch. Flagyl was added to her antibiotic regimen. She was given Venofer. She was encouraged mobilization. Postop day #6. Pain improved. She had an episode of emesis of old undigested food despite gastrostomy in place to drainage. Kock pouch ileostomy had small amount of serosanguineous fluid. C&S showed growth of Klebsiella and enterococcus. Postop day #7. ID consult done. Patient was placed on cefepime, Flagyl and vancomycin. Platelet count went down to 53. Subcutaneous Heparin and Toradol were discontinued. Water/Wastewater Engineer was consulted. Stat CT of the abdomen and pelvis was ordered. Postop day #8. Patient continued to have intermittent abdominal pain and nausea despite Reglan. CT of the abdomen showed minimal gastric emptying of contrast with dilated proximal small bowel loops. KockPouch catheter in good position. Distended gallbladder and possible CBD stone. Cefepime continued to trend down. Cefepime was discontinued. Patient was evaluated by shank paperer. There was no evidence of pneumonitis. Postop day #9. Platelet count 8. There was some bleeding noted from the Kock pouch ileal catheter. Abdomen was mildly distended, soft, nontender, incision with slight erythema around staple stoma stable. Abdominal ultrasound revealed distended gallbladder and mildly dilated CBD. Patient was given stat platelet transfusion. Per professional development manager evaluation, thrombocytopenia likely due to cefepime which was already stopped. Patient may eventually need MRCP or HIDA scan due to distended gallbladder. Patient denied any right upper quadrant symptom or pain. Postop day #10. Patient was more stable without nausea and emesis. Platelet count was down to 6. She was again given platelet transfusion. Abdomen was soft, nontender, minimally distended. Stoma is stable. KUB showed dilated bowel loops. Patient was continued on n.p.o. with TPN. Postop day #11. Patient still unable/refusing to mobilize and ambulate as much. Platelet count went up to 34. Kock pouch ileostomy output was only 40 cc for 24 hours. Postop day #12. T-max 100.5. Cultures were negative. Kock pouch for 40 cc of bloody output. No enteric fluid. Platelet went up to 73. Busch catheter was discontinued. Postop day #13. Patient feeling better overall with enteric fluid via cup pouch catheter. Patient has been voiding freely. Platelet count 46. SENIOR BUDGET ANALYST was discontinued. Patient was given [place] for pain control. Postop day #14. Patient continued to be afebrile. Patient was voiding with some urinary incontinence. She was eventually started on clear liquid diet. Gastrostomy 3: 3 protocol. Postop day #15. Patient was more alert and ambulated twice. She has been tolerating clear liquids and gastrostomy 3: 3 protocol. Platelet went up to 74. Diet was advanced to full liquid diet. Gastrostomy 5: 1 protocol. She was continued on Reglan every 6 hours. Postop day #16. Patient was very anxious and trembling. Patient had tachycardia. She tolerated full liquid diet with gastrostomy 5: 1 protocol. She was given Xanax as needed. She was started on BC IR low residue diet and plug gastrostomy continuously. Postop day #17. Continued to be afebrile off antibiotics. Tachycardia improved. Anxiety improved with alprazolam. Patient is eating only 15% of BC IR diet. Platelet went up to 186. Postop day #18. Tachycardia decreased. Gastrografin upper GI series did not show any obstruction. Contrast-filled pouch within 1 hour. Patient was continued on BCIR diet. Continue TPN. Postop day #19. Patient ambulated in the hallways with PT and walker. Anxiety was better with Xanax. Patient on Toradol and [place] for pain control. Eating was somewhat better. Half of lu were removed. Gastrostomy suture cut, withdrawn to balloon. Blood and urine cultures did not isolate any growth. Platelet count was 293. Postop day #20. Patient complained of severe anxiety despite Xanax and her preadmission psych meds. Patient was eating better. Keeler were removed. Abdomen was soft. Psychiatric evaluation was called. Postop day #21. Patient complained of intermittent abdominal pain to epigastrium. Patient was eating poorly. Patient was started on Pouch self intubation. Patient may eventually need gastrostomy tube feeding instead of TPN. Postop day #22. Patient was eating poorly but no GI symptoms. TPN to be discontinued. Patient was unable to ambulate independently due to balance issues and weakness. Patient however does well with PT and walker device. Postop day #23. Still unable to mobilie and ambulate independently. Abdomen is soft. Kock pouch ileo catheter in place. Gastrostomy plugged continously. Postop day #24. Still unable to ambulate independently. Eating better with less abdominal pain. Abdomen was soft, gastrostomy site clean with tube plugged. Kock pouch stoma stable with indwelling catheter to drainage. Postop day #25. Complained of queasy/nausea feeling while eating. Calorie count in prgress. PT recommended additional in-patient. Start RN supervised Kock Pouch self-intubation. Continue zofran ODT. Postop day #26. Stable with fair po intake only. Abdomen is soft and flat. Ensure added 2x/day between meals Postop day #27. Tolerating BCIR diet and moving better but requires PT motorboat mechanic inboard/outboard assistance and walker. Patient was tolerating Ensure. Gastrostomy removed. Postop day #28. Tolerating diet. Stable. Continue to mobilize. Continue current regimen. Postop day #29. Still unsteady ambulating to bathroom independently Still needs nursing assistance. Incisional pain relieved by [place]. Patient intubating Kock pouch with RN suprevision. Having some difficulty using 30 Fr Christina catheter. Postop day #30. Starting to have easier time to intubate her Kock Pouch with RN support. Still with abdominal pain due to fibrillating. Continue supervised self intubations. Postop day #31. Patient continued to slowly improve. Abdominal pain persists but lessening. Continue to intubate Pouch without difficulty. Postop day #32. Slowly getting better more independent with Functional self intubation. Not eating well. Taking Ensure twice a day. Magnesium was low. Patient was given mag oxide. Abdomen was soft and well-healed. Postop day #33. Patient is doing better intubating her Pouch continued ileostomy. She has occasional nausea but overall doing well. Abdomen is soft, flat, nontender. Mag oxide was increased to 3 times daily. Postop day #34. Patient doing well. Intubating well. Patient was discharged to SNF. To follow-up in 2 weeks. FINAL DIAGNOSES: 1. High-grade partial small bowel obstruction. 2. Malfunctioning Kock pouch continent ileostomy with some difficulty with intubation. 3. History of ulcerative colitis. 4. STATUS POST MULTIPLE ABDOMINAL OPERATIONS: 4.1. Proctocolectomy and Kock pouch in 1978. 4.2. Laparotomy for small bowel obstruction in 2000. 4.3. Laparotomy with creation of new valve and stoma with preservation of Kock pouch, enteroenterostomy, and revision of Kock pouch stoma in depth August 28, 2019. OPERATION PERFORMED: 1. Laparotomy with small bowel resection and release of severe high-grade partial small bowel obstruction due to dense adhesions. 2. Release of small chronic intra-abdominal abscess. 3. Testing of Kock pouch continent ileostomy. 4. Catheter gastrostomy. DISPOSITION: Patient was discharged to SNF. DISCHARGE MEDICATIONS: Refer to Discharge Medication List. DISCHARGE INSTRUCTIONS: Follow-up in 2 weeks. I have been assigned to complete a discharge summary on this account, I was not involved with the patient's management.--BONILLA Fong Jacqueline Robles NP Jun 07, 2020 19:14
== END 2020-06-01 13:40 | DRG 329 ==
LOC: EMR 15:14 → 3E 15:54 → EDBEDREQ 17:38 → 3E 05-04 10:33
PROC: B518ZZA Fluoroscopy of Superior Vena Cava, Guidance (ICD-10-PCS; principal; 2020-04-27)
PROC: 02HV33Z Insertion of Infusion Device into Superior Vena Cava, Percutaneous Approach (ICD-10-PCS; principal; 2020-04-27)
PROC: 0DN80ZZ Release Small Intestine, Open Approach (ICD-10-PCS; 2020-04-29)
PROC: 0DB80ZZ Excision of Small Intestine, Open Approach (ICD-10-PCS; 2020-04-29)
PROC: 0D9630Z Drainage of Stomach with Drainage Device, Percutaneous Approach (ICD-10-PCS; 2020-04-29)
DX: K56.51 Intestinal adhesions [bands], with partial obstruction (principal); A41.9 Sepsis, unspecified organism; K65.1 Peritoneal abscess; K91.858 Other complications of intestinal pouch; J98.11 Atelectasis; E46 Unspecified protein-calorie malnutrition; K56.7 Ileus, unspecified; D69.6 Thrombocytopenia, unspecified; B96.1 Klebsiella pneumoniae [K. pneumoniae] as the cause of diseases classified elsewhere; B95.2 Enterococcus as the cause of diseases classified elsewhere; J30.9 Allergic rhinitis, unspecified; G89.29 Other chronic pain; K21.9 Gastro-esophageal reflux disease without esophagitis; E78.5 Hyperlipidemia, unspecified; D64.9 Anemia, unspecified; F32.9 Major depressive disorder, single episode, unspecified; F41.9 Anxiety disorder, unspecified; Z03.818 Encounter for observation for suspected exposure to other biological agents ruled out
CPT/HCPCS: 36415; 36569; 71045; 74018; 74177; 76700; 76937; 80053; 80202; 81001; 81003; 82607; 82728; 82746; 82962; 83010; 83540; 83550; 83735; 84100; 85007; 85025; 85060; 85384; 85610; 85730; 86703; 86705; 86709; 86803; 86850; 86900; 86901; 87040; 87070; 87075; 87086; 87181; 87205; 87340; 93005; 93970; 94003; 94150; 96374; 96375; 99285; J1815; J2250; J2405; J2710; J2765; J7030; U0002

== ENCOUNTER 2020-07-15 12:54 | Inpatient (IN) | payer MEDICARE ==
[~2020-07-15] VITALS: Ht 165.1 cm; Wt 60.0 kg
[~2020-07-15 12:54] MED LIST changes: +MAGOX 400400 MG ORAL; +ZOFRAN4 M1 ORAL
[2020-07-15 12:59] VITALS: BP 106/63
--- NOTE | 2020-07-15 12:59 | NUR ---
ED Nurse Note: Pt from [facility] and referred by Dr Meadows due to BCIR malfunction. Per pt, she is having difficulty in connecting her catheter for a couple of days. Pt still has small amounts of bowel movements. States abd pain 5/10. No vomiting. AAO x4, ambulatory with unlabored breathing.
--- NOTE | 2020-07-15 13:39 | NUR ---
ED Nurse Note: Collected blood and covid 19 swab then sent.
[2020-07-15 13:49] LABS: BASOPHILS % (AUTO) 0.6 % (0.0-2.0); HEMATOCRIT 48.8 % (37.0-47.0); HEMOGLOBIN 16.8 G/DL (12.0-16.0); LYMPHOCYTES % (AUTO) 26.3 % (20.0-45.0); MEAN CORPUSCULAR VOLUME 91 FL (80-99); MONOCYTES % (AUTO) 9.6 % (1.0-10.0); NEUTROPHILS % (AUTO) 63.6 % (45.0-75.0); PLATELET COUNT 249 K/UL (150-450); RED BLOOD COUNT 5.33 M/UL (4.20-5.40); RED CELL DISTRIBUTION WIDTH 10.9 % (11.6-14.8); WHITE BLOOD COUNT 6.5 K/UL (4.8-10.8)
[2020-07-15 13:57] LABS: CREATININE 1.6 MG/DL (0.55-1.30); POTASSIUM 3.9 MMOL/L (3.5-5.1)
[2020-07-15 14:01] LABS: ALBUMIN 4.6 G/DL (3.4-5.0); ALBUMIN/GLOBULIN RATIO 1.1 (1.0-2.7); BILIRUBIN,TOTAL 0.7 MG/DL (0.2-1.0)
--- NOTE | 2020-07-15 14:46 | Emergency Room Report ---
History of Present Illness General Chief Complaint: Gastrointestinal Illness Source: Patient Present Illness HPI This patient has a history of BCIR pouch. She is unable to catheterize the pouch. Dr. Meadows sent this patient in to be admitted for malfunction of her BCIR pouch. She has no other complaints. Allergies: Coded Allergies: ADHESIVE TAPE (Verified Adverse Reaction, Intermediate, Rash, 08/27/19) CLEAR TAPE COVID-19 Screening Contact w/high risk pt: No Recent Travel to affected area: No Experienced COVID-19 symptoms?: No COVID-19 Testing performed [employer]PRESENT[employer]IVE: Yes - Jun 15 COVID-19 Screening: Negative COVID-19 COVID-19 Testing Source: nasopharynx Patient History Past Medical History: see triage record, other - UC Past Surgical History: other - BCIR pouch Social History: Denies: smoking, alcohol use, drug use Now: No Reviewed Nursing Documentation: PMH: Agreed; PSxH: Agreed Nursing Documentation-PMH Past Medical History: No History, Except For Hx Cardiac Problems: No Hx Cancer: No Hx Gastrointestinal Problems: Yes - BCIR, ulcerative colitis Hx Neurological Problems: No Review of Systems All Other Systems: negative except mentioned in HPI Physical Exam Vital Signs Date Time Temp Pulse Resp B/P (MAP) Pulse Ox O2 Delivery O2 Flow Rate FiO2 07/15/20 12:59 98.2 110 20 106/63 96 Room Air Sp02 EP Interpretation: reviewed, normal General Appearance: no apparent distress, alert, GCS 15, non-toxic Head: normocephalic, atraumatic Eyes: bilateral eye normal inspection, bilateral eye PERRL ENT: hearing grossly normal, normal pharynx, no angioedema, normal voice Neck: full range of motion, supple/symm/no masses Respiratory: no respiratory distress, no retraction, no accessory muscle use, speaking full sentences Cardiovascular #1: regular rate, rhythm, no edema Gastrointestinal: normal bowel sounds, non tender, soft, non-distended, no guarding, no rebound Rectal: deferred Musculoskeletal: back normal, normal range of motion, gait/station normal, non-tender Neurologic: alert, motor strength/tone normal, oriented x3, sensory intact, responsive, speech normal Psychiatric: judgement/insight normal, memory normal, mood/affect normal, no suicidal/homicidal ideation Skin: no rash, normal color Medical Decision Making Diagnostic Impression: Primary Impression: BCIR Pouch Malfunction ER Course This patient is admitted for repair/malfunction of her BCIR pouch. Laboratory Tests Test 07/15/20 13:25 White Blood Count 6.5 K/UL (4.8-10.8) Red Blood Count 5.33 M/UL (4.20-5.40) Hemoglobin 16.8 G/DL (12.0-16.0) H Hematocrit 48.8 % (37.0-47.0) H Mean Corpuscular Volume 91 FL (80-99) Mean Corpuscular Hemoglobin 31.4 PG (27.0-31.0) H Mean Corpuscular Hemoglobin Concent 34.4 G/DL (32.0-36.0) Red Cell Distribution Width 10.9 % (11.6-14.8) L Platelet Count 249 K/UL (150-450) Mean Platelet Volume 6.9 FL (6.5-10.1) Neutrophils (%) (Auto) 63.6 % (45.0-75.0) Lymphocytes (%) (Auto) 26.3 % (20.0-45.0) Monocytes (%) (Auto) 9.6 % (1.0-10.0) Eosinophils (%) (Auto) 0.0 % (0.0-3.0) Basophils (%) (Auto) 0.6 % (0.0-2.0) Sodium Level 141 MMOL/L (136-145) Potassium Level 3.9 MMOL/L (3.5-5.1) Chloride Level 100 MMOL/L (98-107) Carbon Dioxide Level 28 MMOL/L (21-32) Anion Gap 13 mmol/L (5-15) Blood Urea Nitrogen 20 mg/dL (7-18) H Creatinine 1.6 MG/DL (0.55-1.30) H Estimated Glomerular Filtration Rate 32.0 mL/min (>60) Glucose Level 110 MG/DL (74-106) H Calcium Level 10.0 MG/DL (8.5-10.1) Total Bilirubin 0.7 MG/DL (0.2-1.0) Aspartate Amino Transferase (AST) 20 U/L (15-37) Alanine Aminotransferase (ALT) 17 U/L (12-78) Alkaline Phosphatase 82 U/L (46-116) Total Protein 8.9 G/DL (6.4-8.2) H Albumin 4.6 G/DL (3.4-5.0) Globulin 4.3 g/dL Albumin/Globulin Ratio 1.1 (1.0-2.7) Microbiology Date/Time Source Procedure Growth Status 07/15/20 13:25 Nasopharynx SARS-CoV-2 RdRp Gene Assay - Final Complete Last Vital Signs Date Time Temp Pulse Resp B/P (MAP) Pulse Ox O2 Delivery O2 Flow Rate FiO2 07/15/20 13:09 110 20 Room Air 07/15/20 12:59 98.2 106/63 (77) 96 Disposition: ADMITTED INPATIENT Condition: Serious Referrals: NOT CHOSEN IPA/,REFERRING (PCP) Diane Leger DO Jul 15, 2020 14:46
[2020-07-15 15:00] VITALS: BP 99/55
--- NOTE | 2020-07-15 15:03 | NUR ---
ED Nurse Note: Report given to Ida TRAMMELL of Med Surg unit.
[2020-07-15 15:20] VITALS: BP 114/61
--- NOTE | 2020-07-15 15:25 | NUR ---
NURSE NOTES: PATIENT ARRIVED FROM ED DEPT. VIA [facility]ORGE. AOX4. ALL BELONGINGS ACCOUNTED FOR AND SIGNED. QUESTINS ANSWERED, NEEDS MET AT TIS TIME. DISCUSSED PLAN OF CARE FOR THE REMAINDER OF THE DAY.VERBALIZED UNDERSTANDING. VSS AFEBRILE. STATES ABDOMINAL PAIN 4/10 TO STOMA SITE. PATIENT ORIENTED TO ROOM BED IN LOW AND LOCKED POSITION. CALL LIGHT WITHIN REACH.
--- NOTE | 2020-07-15 15:30 | NUR ---
NURSE NOTES: ILEOSTOMY CATHETER PLACEMENT PATIENT PREPPED TO INSERT 28 DEL CID CATHETER TO STOMA SITE. PATIENT UNABLE TO TOLERATE ADVANCEMENT OF CATHETER AND REQUESTED TO TRY A 24 FR. CATHETER INSTEAD. ABLE TO PLACE 24 FR. CATHETER WITH EASE. TOLERATED VERY WELL. CONNECTED TO DRAINAGE BAG. OUTPUT BROWN AND THIN AND SECURED IN PLACE WITH SILK TAPE,4X4, ABD AND PAPER TAPE.
[2020-07-15] MEDS: Magnesium Oxide 400mg tab ORAL SCH (17:25)
[2020-07-15] MEDS: BuPROPion SR 100mg tab ORAL SCH (17:25)
[2020-07-15] MEDS: D5 1/2NS w/KCl 20mEq 1,000 ML IV SCH (17:25)
--- NOTE | 2020-07-15 18:10 | NUR ---
NURSE NOTES: PATIENT TOLERATING CLEAR LIQUIDS THIS EVENING. NO N/V/ NOTED.
--- NOTE | 2020-07-15 18:14 | Pre-op HX & Phy Repo 2 SIG ---
DATE OF ADMISSION: 07/15/2020 The patient is a 69-year-old female who presents with inability to catheterize her Kock pouch continent ileostomy to evacuate stool and gas for approximately 15 hours despite trying multiple catheters and positions. She has a complicated history of abdominal surgery. She was advised to come to the emergency room to be admitted to have a catheter inserted and then will need to undergo Kock pouch endoscopy. The patient has a past history of ulcerative colitis and has previously undergone proctocolectomy with Kock pouch with operation for bowel obstruction, revision of her pouch in 07/2019 and more recently laparotomy with small-bowel resection and release of severe high-grade partial small-bowel obstruction due to dense adhesions and a small chronic intra-abdominal abscess on April 29, 2020 with a prolonged hospital stay. All her operations will be listed at the end of this dictation. Since the patient was unable to intubate, she severely limited her oral intake to avoid distention, nausea, and vomiting. MEDICATIONS: Wellbutrin, Soma, Celebrex, Celexa, Lipitor, Atrovent nasal spray, Myrbetriq for bladder spasms, nortriptyline, [place] for back pain, Protonix, and Dr. Ramírez's probiotics. ALLERGIES TO MEDICATIONS: None. OPERATIONS: In addition to the list of abdominal, intestinal operations at the end of this dictation, she has undergone spine surgery in 2000 and 2002, bilateral carpal tunnel release, bilateral cataract surgery, multiple treatments for kidney stones including extracorporeal shockwave lithotripsy and cystoscopic extractions for calcium stones. In March 2019, she underwent resection of a parathyroid adenoma. PHYSICAL EXAMINATION: GENERAL: The patient is thin, 5 feet 4 inches, approximately 120 pounds. HEENT: Within normal limits. LUNGS: Clear. HEART: Regular rhythm. BREASTS: Without masses. ABDOMEN: Soft, mildly distended. There is a long midline scar. The stoma of the Kock pouch is low in the right lower quadrant with some weakness above the stoma, possibly a parastomal hernia. PELVIC: Per primary care recently. RECTAL: Status post proctectomy. EXTREMITIES: Without edema. NEUROLOGIC: Physiologic. IMPRESSION: 1. Malfunctioning Kock pouch with inability to intubate with resulting functional small-bowel obstruction. 2. History of ulcerative colitis. 3. Status post spine surgery, 2000 and 2002. 4. Status post resection of parathyroid adenoma, March 2019. 5. STATUS POST MULTIPLE ABDOMINAL OPERATIONS: 5.1. Proctocolectomy and Kock pouch in 1978. 5.2. Laparotomy for small-bowel obstruction in 2000. 5.3. Laparotomy with creation of a new valve and stoma with preservation of the Kock pouch, August 28, 2019. 5.4. Laparotomy for severe high-grade partial small-bowel obstruction with small-bowel resection and release of small chronic intra-abdominal abscess with temporary catheter gastrostomy, April 29, 2020. PLAN: The patient will be admitted and the catheter will be manipulated into her pouch, most likely a 28, 26, or 24-[place] Busch catheter. Once she is decompressed, she can tolerate clear liquids, but will require IV hydration as she appears dehydrated. She will be prepared for endoscopy tomorrow with MAC anesthesia to determine the cause of her inability to intubate and treatment options and treatment plan. She will have an indwelling Kock pouch catheter to continuous gravity drainage placed by the nursing staff. The catheter will be flushed every 3 hours with saline to maintain patency. Her pre-admission medications will be continued. Lalo Meadwos M.D. DR: PADDY JOB#: [id number] CC:
--- NOTE | 2020-07-15 19:24 | NUR ---
NURSE HAND-OFF: Important Events on Shift:PLACED 24 FR. DEL CID INTO KOCK POUCH AND CONNECTED TO DRAINAGE BAG W/O DIFFICULTY. Patient Status: STABLE Diet: CLEARS Pending Orders: N/A Pending Results/Labs:N/A Pending MD notification:N/A Latest Vital Signs: Temperature 98.1 , Pulse 94 , B/P 114 /61 , Respiratory Rate 20 , O2 SAT 97 , Room Air, O2 Flow Rate . Vital Sign Comment: N/A Latest Henry Fall Score: 35 Fall Risk: Medium Risk Safety Measures: Call light Within Reach, Bed Alarm , Side Rails Side Rails x2, Bed position Low and Locked. Fall Precautions: Yellow Socks Patient Fall Education Report given to GODFREY KUMARI RN.
--- NOTE | 2020-07-15 19:42 | NUR ---
NURSE NOTES: Received report from VALERI Prieto. Patient seen sitting at bed. No distress noted.
[2020-07-15 20:00] VITALS: BP 108/61
[2020-07-15] MEDS: TraZODone 100mg tab ORAL SCH (20:46)
[2020-07-15] MEDS: Atorvastatin 20mg tab ORAL SCH (20:46)
[2020-07-15 23:04] LABS: APPEARANCE,URINE CLEAR; BILIRUBIN, URINE NEGATIVE (NEGATIVE); GLUCOSE, URINE (UA) NEGATIVE (NEGATIVE); KETONES,URINE 1+ (NEGATIVE); LEUKOCYTE ESTERASE ,URINE NEGATIVE (NEGATIVE); NITRITE,URINE NEGATIVE (NEGATIVE); PH,URINE 6 (4.5-8.0); PROTEIN,URINE NEGATIVE (NEGATIVE); UROBILINOGEN,URINE NORMAL MG/DL (0.0-1.0)
[2020-07-15 23:07] LABS: COLOR,URINE YELLOW
[2020-07-16] VITALS (12 sets, daily range): BP systolic 93–112; BP diastolic 53–63
[2020-07-16] MEDS: D5 1/2NS w/KCl 20mEq 1,000 ML IV SCH ×2 (05:59→20:18)
--- NOTE | 2020-07-16 06:18 | NUR ---
NURSE HAND-OFF: Important Events on Shift: True ileo output during my shift is 320 mL. Urine output of 950 mL. Patient able to ambulate independently with steady gait to the restroom. NPO midnight. Patient Status: stable Diet: [NPO since midnight 07/16] Pending Orders: [] Pending Results/Labs:[] Pending MD notification:[] Latest Vital Signs: Temperature 97.2 , Pulse 81 , B/P 101 /57 , Respiratory Rate 20 , O2 SAT 96 , Room Air, O2 Flow Rate . Vital Sign Comment: [] Latest Henry Fall Score: 35 Fall Risk: Medium Risk Safety Measures: Call light Within Reach, Bed Alarm , Side Rails Side Rails x2, Bed position Low and Locked. Fall Precautions: Patient Fall Education Report given to [].
[2020-07-16 06:42] LABS: INR 1.1 (0.9-1.1)
[2020-07-16 06:44] LABS: BASOPHILS % (AUTO) 0.4 % (0.0-2.0); HEMATOCRIT 37.4 % (37.0-47.0); HEMOGLOBIN 12.9 G/DL (12.0-16.0); LYMPHOCYTES % (AUTO) 36.7 % (20.0-45.0); MEAN CORPUSCULAR VOLUME 91 FL (80-99); MONOCYTES % (AUTO) 12.2 % (1.0-10.0); NEUTROPHILS % (AUTO) 50.7 % (45.0-75.0); PLATELET COUNT 157 K/UL (150-450); RED BLOOD COUNT 4.12 M/UL (4.20-5.40); RED CELL DISTRIBUTION WIDTH 10.7 % (11.6-14.8); WHITE BLOOD COUNT 3.8 K/UL (4.8-10.8)
--- NOTE | 2020-07-16 07:08 | NUR ---
NURSE NOTES: Report received from Tyrell RN, rounds made. Patient resting in semi-fowlers position in bed. AOx4, calm. Respirations even/unlabored on RA. Denies pain, SOB, NV. Remains NPO, will provided oral mouth care kit. RLQ BCIR, catheter in place, dressing CDI, to drainage bag, yellow brown output to gravity. IV (D5 1/2 NS +20 KCL at 75 ml/hr) to RAC, site asymptomatic. Call light in reach, bed in lowest position, will continue to monitor.
[2020-07-16 07:17] LABS: ALBUMIN 3.2 G/DL (3.4-5.0); BILIRUBIN,TOTAL 0.4 MG/DL (0.2-1.0); CALCIUM 8.3 MG/DL (8.5-10.1); POTASSIUM 3.4 MMOL/L (3.5-5.1)
--- NOTE | 2020-07-16 07:21 | NUR ---
NURSE NOTES: Report given to VALERI Poole
[2020-07-16] MEDS: BuPROPion SR 100mg tab ORAL SCH ×2 (09:56→18:13)
[2020-07-16] MEDS: Citalopram Hydrobromide 10mg Tab ORAL SCH (09:56)
[2020-07-16] MEDS: Magnesium Oxide 400mg tab ORAL SCH ×3 (09:56→18:13)
[2020-07-16] MEDS: Aspirin Baby 81mg ORAL SCH (09:56)
[2020-07-16] MEDS: Meloxicam 15 MG TAB ORAL SCH (09:56)
--- NOTE | 2020-07-16 10:59 | NUR ---
NURSE NOTES: Patient ileostomy catheter noted with balloon still intact. Dr. Meadows notified, no further orders, it's okay as long as balloon is not inflated. Ashli SUAREZ aware.
--- NOTE | 2020-07-16 12:09 | NUR ---
RD ASSESSMENT & RECOMMENDATIONS SEE CARE ACTIVITY FOR COMPLETE ASSESSMENT DAILY ESTIMATED NEEDS: Needs based on general/ 58.9kg abw 25-30 kcals/kg 7465-3678 total kcals 1-1.2 g protein/kg 59-71 g total protein 25-30 mL/kg 8678-5055 total fluid mLs NUTRITION DIAGNOSIS: Altered GI function R/T h/o malfunctioning ileo, as evidenced by pt unable to intubate, endoscopy pending, npo. CURRENT DIET: NPO PO DIET RECOMMENDATIONS: Diet per MD PARENTERAL NUTRITION RECOMMENDATIONS: TPN Comment: - Should pt require surgical ileo revision w/ resulting ileus/ NPO status, rec TPN to meet est needs. ADDITIONAL RECOMMENDATIONS: * Standing wt as able while ambulating for accurate CBW (04/28) standing wt of 135.8 lbs (07/16) Bed wt 130 lbs * Adjust est needs if pt requires surgical revision * TPN recs available as needed
[2020-07-16] MEDS ORDERED: Midazolam 2mg/2ml Inj ONE (12:21)
[2020-07-16] MEDS ORDERED: VITAMIN B-121000 MC2 SL (12:48)
[2020-07-16] MEDS ORDERED: TRAZODONE HCL100 MG ORAL (12:50)
[2020-07-16] MEDS ORDERED: VITAMIN D-40010 MCG PO (12:51)
[2020-07-16] MEDS ORDERED: ZINC SULFATE220 M1 ORAL (12:51)
[2020-07-16] MEDS ORDERED: VITAMIN C500 M1 ORAL (12:51)
[2020-07-16] MEDS ORDERED: CYCLOBENZAPRINE5 MG ORAL (12:52)
--- NOTE | 2020-07-16 12:56 | Anethesia Preoperative Eval ---
Anesthesia Pre-op PMH/ROS General Date of Evaluation: Jul 16, 2020 Time of Evaluation: 13:25 Anesthesiologist: Owen ASA Score: ASA 3 Mallampati Score Class I : Soft palate, uvula, fauces, pillars visible Class II: Soft palate, uvula, fauces visible Class III: Soft palate, base of uvula visible Class IV: Only hard plate visible Mallampati Classification: Class II Surgeon: Dori Diagnosis: Malfunctioning Calderon Pouch Surgical Procedure: Endoscopy Calderon Pouch Anesthesia History: none Family History: no anesthesia problems Allergies: Coded Allergies: ADHESIVE TAPE (Verified Adverse Reaction, Intermediate, Rash, 08/27/19) CLEAR TAPE Medications: see eMAR Patient NPO?: Yes Past Medical History Cardiovascular: Reports: CAD Pulmonary: Reports: other - Bronchitis Gastrointestinal/Genitourinary: Reports: GERD, other - Ulcerative Colitis Neurologic/Psychiatric: Reports: depression/anxiety HEENT: Reports: cataract (L), cataract (R) Hematology/Immune: Reports: anemia Musculoskeletal/Integumentary: Reports: other - Back Pain PSxH Narrative: 1. Malfunctioning Kock pouch with inability to intubate with resulting functional small-bowel obstruction. 2. History of ulcerative colitis. 3. Status post spine surgery, 2000 and 2002. 4. Status post resection of parathyroid adenoma, March 2019. 5. STATUS POST MULTIPLE ABDOMINAL OPERATIONS: 5.1. Proctocolectomy and Kock pouch in 1978. 5.2. Laparotomy for small-bowel obstruction in 2000. 5.3. Laparotomy with creation of a new valve and stoma with preservation of the Kock pouch, August 28, 2019. 5.4. Laparotomy for severe high-grade partial small-bowel obstruction with small-bowel resection and release of small chronic intra-abdominal abscess with temporary catheter gastrostomy, April 29, 2020. Anesthesia Pre-op Phys. Exam Physician Exam Last Vital Signs Date Time Temp Pulse Resp B/P (MAP) Pulse Ox O2 Delivery O2 Flow Rate FiO2 07/16/20 12:00 97.5 76 18 93/61 (72) 94 07/16/20 09:00 Room Air Constitutional: NAD Neurologic: CN 2-12 intact Cardiovascular: RRR Respiratory: CTA Gastrointestinal: S/NT/ND Airway Exam Mallampati Score: Class II MO: full ROM: full Teeth: missing, intact Anesthesia Pre-op A/P Labs Hematology Test 9/16/20 13:25 07/16/20 05:20 White Blood Count 6.5 K/UL (4.8-10.8) 3.8 K/UL (4.8-10.8) L Red Blood Count 5.33 M/UL (4.20-5.40) 4.12 M/UL (4.20-5.40) L Hemoglobin 16.8 G/DL (12.0-16.0) H 12.9 G/DL (12.0-16.0) Hematocrit 48.8 % (37.0-47.0) H 37.4 % (37.0-47.0) Mean Corpuscular Volume 91 FL (80-99) 91 FL (80-99) Mean Corpuscular Hemoglobin 31.4 PG (27.0-31.0) H 31.3 PG (27.0-31.0) H Mean Corpuscular Hemoglobin Concent 34.4 G/DL (32.0-36.0) 34.4 G/DL (32.0-36.0) Red Cell Distribution Width 10.9 % (11.6-14.8) L 10.7 % (11.6-14.8) L Platelet Count 249 K/UL (150-450) 157 K/UL (150-450) Mean Platelet Volume 6.9 FL (6.5-10.1) 6.7 FL (6.5-10.1) Neutrophils (%) (Auto) 63.6 % (45.0-75.0) 50.7 % (45.0-75.0) Lymphocytes (%) (Auto) 26.3 % (20.0-45.0) 36.7 % (20.0-45.0) Monocytes (%) (Auto) 9.6 % (1.0-10.0) 12.2 % (1.0-10.0) H Eosinophils (%) (Auto) 0.0 % (0.0-3.0) 0.0 % (0.0-3.0) Basophils (%) (Auto) 0.6 % (0.0-2.0) 0.4 % (0.0-2.0) Coagulation Test 07/16/20 05:20 Prothrombin Time 12.1 SEC (9.30-11.50) H Prothromb Time International Ratio 1.1 (0.9-1.1) Activated Partial Thromboplast Time 26 SEC (23-33) Chemistry Test 07/15/20 13:25 07/16/20 05:20 Sodium Level 141 MMOL/L (136-145) 145 MMOL/L (136-145) Potassium Level 3.9 MMOL/L (3.5-5.1) 3.4 MMOL/L (3.5-5.1) L Chloride Level 100 MMOL/L (98-107) 108 MMOL/L (98-107) H Carbon Dioxide Level 28 MMOL/L (21-32) 29 MMOL/L (21-32) Anion Gap 13 mmol/L (5-15) 8 mmol/L (5-15) Blood Urea Nitrogen 20 mg/dL (7-18) H 11 mg/dL (7-18) Creatinine 1.6 MG/DL (0.55-1.30) H 1.0 MG/DL (0.55-1.30) Estimat Glomerular Filtration Rate 32.0 mL/min (>60) 55.0 mL/min (>60) Glucose Level 110 MG/DL (74-106) H 100 MG/DL (74-106) Calcium Level 10.0 MG/DL (8.5-10.1) 8.3 MG/DL (8.5-10.1) L Total Bilirubin 0.7 MG/DL (0.2-1.0) 0.4 MG/DL (0.2-1.0) Aspartate Amino Transf (AST/SGOT) 20 U/L (15-37) 15 U/L (15-37) Alanine Aminotransferase (ALT/SGPT) 17 U/L (12-78) 13 U/L (12-78) Alkaline Phosphatase 82 U/L (46-116) 55 U/L (46-116) Total Protein 8.9 G/DL (6.4-8.2) H 6.4 G/DL (6.4-8.2) Albumin 4.6 G/DL (3.4-5.0) 3.2 G/DL (3.4-5.0) L Globulin 4.3 g/dL 3.2 g/dL Albumin/Globulin Ratio 1.1 (1.0-2.7) 1.0 (1.0-2.7) Risk Assessment & Plan Assessment: ASA 3 Plan: TIVA Status Change Before Surgery: No Jerod Weaver MD Jul 16, 2020 12:56
--- NOTE | 2020-07-16 12:57 | Immediate Post-Op Evaluation ---
Immediate Post-Op Evalulation Immediate Post-Op Evalulation Procedure: Endoscopy Calderon Pouch Date of Evaluation: Jul 16, 2020 Time of Evaluation: 14:44 IV Fluids: 600 NS Blood Products: 0 Estimated Blood Loss: 10 Urinary Output: 0 Blood Pressure Systolic: 111 Blood Pressure Diastolic: 56 Pulse Rate: 78 Respiratory Rate: 16 O2 Sat by Pulse Oximetry: 100 Temperature (Fahrenheit): 97.7 Pain Score (1-10): 2 Nausea: No Vomiting: No Complications 0 Patient Status: awake, reacts, patent, none Hydration Status: adequate Jerod Weaver MD Jul 16, 2020 12:57
--- NOTE | 2020-07-16 12:58 | 48 Hour Post Anesthesia Eval ---
Post Anesthesia Evaluation Procedure: Endoscopy Calderon Pouch Date of Evaluation: Jul 16, 2020 Time of Evaluation: 16:52 Blood Pressure Systolic: 116 0: 57 Pulse Rate: 72 Respiratory Rate: 16 Temperature (Fahrenheit): 98 O2 Sat by Pulse Oximetry: 100 Airway: patent Nausea: No Vomiting: No Pain Intensity: 2 Hydration Status: adequate Cardiopulmonary Status: Stable Mental Status/LOC: patient returned to baseline Follow-up Care/Observations: 0 Post-Anesthesia Complications: 0 Follow-up care needed: N/A Jerod Weaver MD Jul 16, 2020 12:58
[2020-07-16] MEDS ORDERED: HYDROcodone/Acetamin 5/325 tab ORAL PRN (13:00)
[2020-07-16] MEDS ORDERED: LR 1000ml 1,000 ML IVLG SCH (13:00)
[2020-07-16] MEDS ORDERED: Hydromorphone 0.5mg/0.5ml inj IVP PRN (13:00)
[2020-07-16] MEDS ORDERED: fentaNYL 100 mcg/2 mL IV PRN (13:00)
[2020-07-16] MEDS ORDERED: Midazolam 2mg/2ml Inj IVP PRN (13:00)
[2020-07-16] MEDS ORDERED: DiphenhydrAMINE 50mg/ml Inj IVP PRN (13:00)
[2020-07-16] MEDS ORDERED: Labetalol 5mg/ml 20ml vial IV PRN (13:00)
[2020-07-16] MEDS ORDERED: LORazepam Inj 2mg/ml 1ml IV PRN (13:00)
[2020-07-16] MEDS ORDERED: oxyCODONE HCL/Acetaminophen 5/325mg ORAL PRN (13:00)
[2020-07-16] MEDS ORDERED: Atropine Sulfate 0.4mg/ml inj IVP PRN (13:00)
[2020-07-16] MEDS ORDERED: HYDROcodone/Acetamin 7.5/325 tab ORAL PRN (13:00)
--- NOTE | 2020-07-16 13:20 | Pre-Procedure Note/Attestation ---
Pre-Procedure Note/Attestation Complete Prior to Procedure Planned Procedure: not applicable Procedure Narrative: Kock pouch endoscopy Indications for Procedure Pre-Operative Diagnosis: Malfunctioning Kock pouch with inability to intubate Attestation I attest that I discussed the nature of the procedure; its benefits; risks and complications; and alternatives (and the risks and benefits of such alternatives), prior to the procedure, with the patient (or the patient's legal event representative). I attest that, if there was a reasonable possibility of needing a blood transfusion, the patient (or the patient's legal event representative) was given the [facility] standardized written summary, pursuant to the Will Brandon Blood Safety Act ([place] Health and Safety Code # 1645, as amended). I attest that I re-evaluated the patient just prior to the surgery and that there has been no change in the patient's H&P, except as documented below:none Lalo Meadows MD Jul 16, 2020 13:20
[2020-07-16] MEDS ORDERED: Lidocaine 1% MPF 10mg/ml 5ml ONE (13:30)
[2020-07-16] MEDS ORDERED: NS 500ML IVPB ONE (13:45)
[2020-07-16] MEDS ORDERED: Lidocaine 1% Plain 30 ml INJ PRN (14:33)
--- NOTE | 2020-07-16 14:33 | Brief Operative Note ---
Immediate Post Operative Note Operative Note Pre-op Diagnosis: Malfunctioning Kock pouch with inability to intubate Procedure: Kock pouch endoscopy Post-op Diagnosis: angulation deep access segment Post-op Diagnosis: same as pre-op Findings: consistent w/pre-op dx studies Surgeon: charlotte Additional Surgeons: aliyah Anesthesiologist: jean Specimen: none Complications: none Condition: stable Fluids: see anesthesia record Estimated Blood Loss: none Drains: other - 24 Busch to Kock pouch Implant(s) used?: No Lalo Meadows MD Jul 16, 2020 14:33
[2020-07-16] MEDS ORDERED: Heparin1,000 units/500ml Premix(Conc:2 units/ml) IV PRN (14:34)
--- NOTE | 2020-07-16 15:20 | NUR ---
NURSE NOTES: Patient sent down for Kock Pouch Endoscopy at 1330 via gurney on RA, in stable condition, returned at this time, sleeping, awakens easily.
--- NOTE | 2020-07-16 15:35 | General Progress Note ---
Progress Note Progress Note Endoscopy revealed a severe angulation at 7-8cm deep to stoma orifice - Dr. Morrison came to GI lab and got into the pouch, then placed a wire and a 24 Fr Busch over it into the pouch. She will need surgical revision, but last operation was 04/29/2020 - will likely need laparotomy again as too deep for stoma revision in depth approach WBC 3800 Hgb 12.0 Platelets 157,000 PT 1.2 Albumin 3.2 Imp: Malfunctioning Kock pouch with inability to intubate Malnutrition present on admission Plan; Indwelling catheter to continuous drainage PICC TPN Prepare for surgery Lalo Meadows MD Jul 16, 2020 15:35
--- NOTE | 2020-07-16 15:45 | NUR ---
NURSE NOTES: Patient awakens easily, vitals obtained, VSS. Right lower abdomen dressing 4x4 with paper tape, CDI, catheter secured with silk tape, connected to drainage bag to gravity, light brown output noted in tubing, irrigated with NS 20 ml as ordered. Reviewed post endoscopy orders with patient, verbalized understanding. Consent for PICC, reviewed/signed by patient. Denies NV, provided clear liquids. IVF (as prior to endoscopy), to RAC, site asymptomatic. Encouraged ambulation, will assist patient in room/halls. Addendum: 07/16/20 at 1608 by Zulema Potter RN Reviewed home medications, asked patient to have family bring in her Anithaiq, so pharmacy can package/prepare for administration as ordered, verbalized understanding.
--- NOTE | 2020-07-16 16:16 | NUR ---
CASE MANAGEMENT: INITIAL REVIEW 69YR OLD FEMALE FROM HOME CC:MALFUNCTION OF [place] POUCH UNABLE TO CATHETERIZE POUCH AND EVALUATE STOOL PMH ULCERATIVE COLITIS; MULTIPLE ABD SURGERY, PROCTOCOLECTOMY 2019 SI:MALFUNCTIONING KOCK POUCH W/ INABILITY TO INTUBATE W/ RESULTING FUNCTION SMALL BOWEL OBSTRUCTION 98.2 110 20 106/63 96% ON RA H/H 16.8/48.8 BUN/CREAT 20/1.6 BG 110 IS:IVF NS BOLUS X1 \: 3E MED SURG UNIT DCP: HOME WHEN STABLE PLAN: CONT IV HYDRATION START ON TPN 07/17/20 KOCK POUCH ENDOSCOPY IN AN CASE MANAGEMENT: REVIEW 07/16/20 SI:MALFUNCTIONING KOCK POUCH W/ INABILITY TO INTUBATE W/ RESULTING FUNCTION SMALL BOWEL OBSTRUCTION 97.5 73 18 98/57 97% ON RA WBC 3.8 K+3.4 ALB 3.2 IS:IN SURGERY NOW FOR POUCH ENDOSCOPY IV D5/LYTES @75ML/HR MAG-OX PO TID MOBIC PO QS ASA PO QD \: 3E MED SURG UNIT DCP: HOME WHEN STABLE PLAN: CONT IV HYDRATION START ON TPN 07/17/20 KOCK POUCH ENDOSCOPY IN AN Addendum: 07/16/20 at 1647 by GINA BARFIELD LVN PATIENT MET INTERQUAL FOR ACUTE
--- NOTE | 2020-07-16 16:45 | Procedure Note ---
DATE OF PROCEDURE: 07/16/2020 GI ENDOSCOPY PROCEDURE REPORT PRE-ENDOSCOPIC DIAGNOSES: 1. Malfunctioning Kock pouch with inability to intubate. 2. History of ulcerative colitis. 3. Status post multiple abdominal operations including proctocolectomy and Kock pouch in 1978, creation of a new valve and stoma, and revision of stoma in July 2019, laparotomy with small-bowel resection and release of severe high-grade partial small bowel obstruction due to the dense adhesions, April 29, 2020. POST-ENDOSCOPIC DIAGNOSES: 1. Malfunctioning Kock pouch with inability to intubate. 2. History of ulcerative colitis. 3. Status post multiple abdominal operations including proctocolectomy and Kock pouch in 1978, creation of a new valve and stoma, and revision of stoma in July 2019, laparotomy with small-bowel resection and release of severe high-grade partial small bowel obstruction due to the dense adhesions, April 29, 2020. ENDOSCOPY PERFORMED: Kock pouch continent ileostomy pouch endoscopy. ENDOSCOPIST: Lalo Meadows MD. CO-ENDOSCOPIST: Adrian Morrison MD. ANESTHESIOLOGIST: Jerod Weaver MD. TYPE OF ANESTHESIA: MAC. DESCRIPTION OF PROCEDURE: The patient was positioned supine in the GI lab with sedation. Using a GIF-P140 endoscope, the stoma was entered. There was a very severe angulation at approximately 7 or 8 cm deep. I could not get into the pouch. I removed the endoscope and could not insert a 28-Mongolian, 26-Mongolian, or [address]-Mongol[address]ch[address] Dr. Adrian Morrison came to the endoscopy suite and utilizing the endoscope was able to negotiate a severe over 90-degree angulation and finally entered the pouch. A wire was placed and then a 24-Mongolian Busch placed into the pouch over the wire and was secured with tape and dressings and connected to gravity drainage bag. The patient will need a surgical revision. She tolerated the endoscopy well. Zenon Giron JOB#: [id number] CC:
--- NOTE | 2020-07-16 18:04 | NUR ---
NURSE NOTES: Patient's family member brought her Myrbetriq home medication bottle. Sent to pharmacy in pharmacy security bag and delivered to pharmacy at this time. Security number: [id number]
--- NOTE | 2020-07-16 18:16 | NUR ---
NURSE NOTES: Reviewed eMAR with patient, offered pain medication if she was experiencing any pain. Patient states, "I'll wait" , will endorse to next shift.
--- NOTE | 2020-07-16 18:30 | NUR ---
NURSE NOTES: Patient up to bathroom twice, gait steady. Voids in hat/BRP. Ambulated in halls with RN (did two laps around 3E unit), pace moderate, steady. Encouraged deep breathing. Ileostomy dressing remains CDI, catheter checked multiple times (before and after ambulating), remains in place.
--- NOTE | 2020-07-16 19:07 | NUR ---
NURSE HAND-OFF: Important Events on Shift:Kock Pouch Endoscopy done at 1330, returned at 1520, PICC consent signed (will be inserted tomorrow), TPN/blood sugars AC+HS to start tomorrow, Ambulated in halls (two laps with RN) Patient Status: stable Diet: clear Outputs: Urine 450 ml Ileostomy: 295 ml Pending Orders: PICC, TPN, BS for tomorrow Pending Results/Labs:CBC CMP MG PHOS 07/17 Pending MD notification:none Latest Vital Signs: Temperature 97.9 , Pulse 78 , B/P 96 /63 , Respiratory Rate 18 , O2 SAT 95 , Room Air, O2 Flow Rate 6 . Vital Sign Comment: none Latest Henry Fall Score: 35 Fall Risk: Medium Risk Safety Measures: Call light Within Reach, Bed Alarm , Side Rails Side Rails x2, Bed position Low and Locked. Fall Precautions: Yellow Socks Door Sign Patient Fall Education Report given to Kal TRAMMELL.
--- NOTE | 2020-07-16 19:38 | NUR ---
NURSE NOTES: Pt. received from VALERI Poole. Pt. AAOx4, on room air, breathing even and unlabored on room air, no indication of respiratory distress, no indication of pain at this time. IV right AC 20g intact and patent running D5 1/2NS with 20 Kcl at 75cc. BCIR catheter intact and draining. Bed low and locked, side rails x2 up, and call light in reach.
[2020-07-16] MEDS: Dyna-Hex 2% Top Sol 2oz TOPIC SCH (20:00)
[2020-07-16] MEDS: TraZODone 100mg tab ORAL SCH (20:18)
[2020-07-16] MEDS: MYRBETRIQ 50 MG ORAL SCH (20:18)
[2020-07-16] MEDS: Atorvastatin 20mg tab ORAL SCH (20:18)
[2020-07-16] MEDS ORDERED: Fat Emulsion Iv 20% 250 ML IV SCH (21:00)
[2020-07-16] MEDS ORDERED: Tpn 2,000 ML IV SCH (21:00)
[2020-07-17] VITALS (7 sets, daily range): BP systolic 99–111; BP diastolic 53–63
--- NOTE | 2020-07-17 06:15 | NUR ---
NURSE NOTES: Pt. IV leaking, pt. requested to not attempt another IV insertion at this time. Pt. will be receiving PICC placement today. Charge nurse aware, will notify Dr. Meadows.
--- NOTE | 2020-07-17 06:42 | NUR ---
NURSE HAND-OFF: Important Events on Shift:[urine: 350, true ileo: 320. Pt.s IV leaking, pt. requested to not attempt IV insertion. Pt. ambulatory to bathroom to void.] Patient Status: stable, sleeping Diet: clear liquid diet Pending Orders: PICC TPN Pending Results/Labs:CBC CMP Mg Ph Pending MD notification:pt. request to have trazodone PRN Latest Vital Signs: Temperature 98.9 , Pulse 78 , B/P 111 /63 , Respiratory Rate 18 , O2 SAT 96 , Room Air, O2 Flow Rate 6 . Vital Sign Comment: stable Latest Henry Fall Score: 35 Fall Risk: Medium Risk Safety Measures: Call light Within Reach, Bed Alarm , Side Rails Side Rails x2, Bed position Low and Locked. Fall Precautions: Yellow Socks Door Sign Patient Fall Education Report given to .
[2020-07-17 07:09] LABS: BASOPHILS % (AUTO) 0.4 % (0.0-2.0); HEMOGLOBIN 12.6 G/DL (12.0-16.0); LYMPHOCYTES % (AUTO) 23.2 % (20.0-45.0); MEAN CORPUSCULAR VOLUME 92 FL (80-99); MONOCYTES % (AUTO) 7.3 % (1.0-10.0); NEUTROPHILS % (AUTO) 69.1 % (45.0-75.0); PLATELET COUNT 131 K/UL (150-450); RED BLOOD COUNT 4.01 M/UL (4.20-5.40); WHITE BLOOD COUNT 5.4 K/UL (4.8-10.8)
--- NOTE | 2020-07-17 07:15 | NUR ---
NURSE NOTES: Report received from Kal RN, rounds made. Patient sleeping in semi-fowlers position in bed, calm. Respirations even/unlabored on RA. No distress noted pain, SOB, NV. RLQ BCIR, catheter in place, dressing CDI, to drainage bag, light green brown output to gravity. IV (D5 1/2 NS +20 KCL at 75 ml/hr) off due to leaking at RAC site. Call light in reach, bed in lowest position, will continue to monitor.
--- NOTE | 2020-07-17 07:17 | NUR ---
HAND-OFF: Report given to VALERI Poole.
[2020-07-17 07:26] LABS: ALANINE AMINOTRANSFERASE 12 U/L (12-78); ALBUMIN 3.1 G/DL (3.4-5.0); ALKALINE PHOSPHATASE 53 U/L (46-116); ANION GAP 9 mmol/L (5-15); ASPARTATE AMINO TRANSFERASE 16 U/L (15-37); BILIRUBIN,TOTAL 0.4 MG/DL (0.2-1.0); BLOOD UREA NITROGEN 6 mg/dL (7-18); CALCIUM 8.1 MG/DL (8.5-10.1); CARBON DIOXIDE 28 MMOL/L (21-32); CHLORIDE 110 MMOL/L (98-107); CREATININE 0.9 MG/DL (0.55-1.30); PHOSPHORUS 2.7 MG/DL (2.5-4.9); POTASSIUM 3.5 MMOL/L (3.5-5.1); SODIUM 147 MMOL/L (136-145)
[2020-07-17] MEDS ORDERED: Heparin1,000 units/500ml Premix(Conc:2 units/ml) IV PRN (08:30)
[2020-07-17] MEDS ORDERED: Lidocaine 1% Plain 30 ml INJ PRN (08:30)
--- NOTE | 2020-07-17 08:42 | NUR ---
RD ASSESSMENT & RECOMMENDATIONS SEE CARE ACTIVITY FOR COMPLETE ASSESSMENT DAILY ESTIMATED NEEDS: Needs based on general/ 58.9kg abw 25-30 kcals/kg 0142-4397 total kcals 1-2 g protein/kg 59-118 g total protein 25-30 mL/kg 0664-9505 total fluid mLs NUTRITION DIAGNOSIS: Altered GI function R/T h/o malfunctioning ileo, as evidenced by pt unable to intubate, pending ex lap + revision, NPO, to start TPN. CURRENT DIET: NPO PO DIET RECOMMENDATIONS: Diet per MD PARENTERAL NUTRITION RECOMMENDATIONS: D/AA Rate: 66 IL Rate: 9 Total Rate: 75 Volume: 1800 % Dextrose: 17 % AA: 5.3 Energy (kcals/kg): 1684 Protein (g/kg protein): 84 Nonprotein KCALS: 1347 GIR (mg CHO/kg/min): 3.17 % Fat KCALS: 26 NCP: N Ratio: 100:1 TPN Comment: - D17% w/ AA 5.3% @ 66ml/hr + 20%IL @9ml/hr-> total of 75ml/hr, all 3:1 - Start rate per MD. - TPN at goal meets 100% est needs (28.5kcal/1.4g per kg) ADDITIONAL RECOMMENDATIONS: * Standing wt as able while ambulating for accurate CBW (04/28) standing wt of 135.8 lbs (07/16) Bed wt 130 lbs * Monitor BG, lytes, LFT's closely w/ TPN, need for formulary change . . .
--- NOTE | 2020-07-17 08:58 | General Progress Note ---
Progress Note Progress Note AVSS Tolerating clear liquid diet with indwelling Kock pouch catheter to drainage Abdomen soft Urine 800 Kock pouch 615cc WBC 5400 Hgb 12.6 Platelets 131,000 Mg 1.4 albumin 3.1 Imp: Malfunctioning Kock pouch with inability to intubate and marked angulation deep into access segment Malnutrition on admission Plan: PICC and start TPN tonight Mg infusions Full liquid diet Maintain continuous drainage of Kock pouch F/U endoscopy by Dr. Morrison early in the coming week to determine if stenting is effective or if surgical revision will be required of her Kock pouch Lalo Meadows MD Jul 17, 2020 08:58
[2020-07-17] MEDS: D5 1/2NS w/KCl 20mEq 1,000 ML IV SCH (09:00)
[2020-07-17] MEDS: BuPROPion SR 100mg tab ORAL SCH ×2 (09:17→18:38)
[2020-07-17] MEDS: Aspirin Baby 81mg ORAL SCH (09:17)
[2020-07-17] MEDS: Citalopram Hydrobromide 10mg Tab ORAL SCH (09:17)
[2020-07-17] MEDS: Magnesium Oxide 400mg tab ORAL SCH ×3 (09:17→18:37)
[2020-07-17] MEDS: Meloxicam 15 MG TAB ORAL SCH (09:18)
--- NOTE | 2020-07-17 09:18 | NUR ---
NURSE NOTES: Spoke to Maura in pharmacy, confirmed it's okay to give Meloxicam and [place] at the same time.
[2020-07-17] MEDS: HYDROcodone/Acetamin 5/325 tab ORAL PRN (09:21)
[2020-07-17] MEDS: MYRBETRIQ 50 MG ORAL SCH (09:22)
--- NOTE | 2020-07-17 14:26 | Pre-Procedure Note/Attestation ---
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 I attest that, if there was a reasonable possibility of needing a blood transfusion, the patient (or the patient's legal auto claim representative) was given the [place] [employer] [facility] standardized written summary, pursuant to the Will Brandon Blood Safety Act ([place] Health and Safety Code # 1645, as amended). I attest that I re-evaluated the patient just prior to the surgery and that there has been no change in the patient's H&P, except as documented below: Raymon Carrizales MD Jul 17, 2020 14:26
--- NOTE | 2020-07-17 14:27 | Brief Operative Note ---
Immediate Post Operative Note Operative Note Chief Complaint: Needs IV access Pre-op Diagnosis: Requires TPN Procedure: Right PICC; right UE venogram Post-op Diagnosis: Same Post-op Diagnosis: same as pre-op Findings: other - Venogram demosnstrating occlusion of axillary vein with collateral flow through axilla to the right IJ and innominate veins. Occlusion could not be crossed by wire thus PICC was left as midline in right axillary vein Surgeon: Raymon Carrizales MD, MA Specimen: none Complications: none Condition: stable Fluids: 0 Estimated Blood Loss: minimal Drains: none Implant(s) used?: Yes - 4Fr dual lumen PICC, midline into right axillary vein Raymon Carrizales MD Jul 17, 2020 14:27
--- NOTE | 2020-07-17 14:31 | NUR ---
CASE MANAGEMENT: REVIEW 07/17/20 SI:S/P POUCH ENDOSCOPY MALFUNCTIONING KOCK POUCH W/ INABILITY TO INTUBATE W/ RESULTING FUNCTION SMALL BOWEL OBSTRUCTION 98.8 79 16 99/57 95% ON RA PLT 131 NA+ 147 CL-110 BUN6 CA+8.1 MG 1.4 ALB 1.4 IS:IV MG SULFATE X4 BAGS IV D5/LYTES @75ML/HR MAG-OX PO TID MOBIC PO QS ASA PO QD IV TPN PROTOCOL IV DEXTROSE KVO PICC LINE ~SUCCESSFUL \: 3E MED SURG UNIT DCP: HOME WHEN STABLE PLAN: CONT IV HYDRATION START ON TPN 07/17/20 KOCK POUCH CATHETER TO DRAINAGE BACK TO GI LAB MONDAY~ F/U endoscopy by Dr. Morrison early in the coming week to determine if stenting is effective or if surgical revision will be required of her Kock pouch
--- NOTE | 2020-07-17 15:46 | NUR ---
RADIOLOGY NOTE: PICC LINE PLACEMENT ATTEMPTED BY DR. KAY TO RIGHT UPPER EXTREMITY. UNABLE TO ADVANCE CATHETER DUE TO STENOSED VEIN. INSTEAD MIDLINE WAS PLACED. FA
[2020-07-17] MEDS ORDERED: Phytonadione 10 mg/mL 1ml amp SUBQ SCH (16:00)
--- NOTE | 2020-07-17 16:03 | Diagnostic Imaging Report ---
PICC placement and right UPPER EXTREMITY VENOGRAPHY Indications: Needs long-term IV access for TPN Technique: Ultrasound confirms patent compressible brachial vein. Total sterile technique, including sterile probe cover and sterile gel, hat, mask,, sterile gown, large sterile drape, and preparation with 2% chlorhexidine utilized. Local anesthesia with 1% lidocaine. Under real-time ultrasound guidance, the brachial vein was punctured using 21-gauge needle. There was resistance with passage of an 018 guidewire, necessitating placement of the peel-away sheath, through which a 4 Nepalese Kumpe was advanced. Manipulation of the catheter and wire failed to cross into the central veins. A contrast injection was performed, which demonstrated complete occlusion of the distal axillary vein, with collateralization through axillary veins to the right internal jugular and brachiocephalic vein.. The 4 Nepalese dual-lumen catheter was cut to length, inserted through peel-away sheath, and left in place just before the occlusion in the right axillary vein. Catheter fixed to the skin. Both catheter ports aspirated and flushed. Patient tolerated procedure well, without immediate complication. Total fluoroscopy time 180.3 sec. Total dose area product 9.02mGy Impression: 1. 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 2. Successful placement of right PICC under sonographic and fluoroscopic guidance into the distal right axillary vein. If patient requires more central access, please reconsult radiology for tunneled internal jugular vein PICC placement.
--- NOTE | 2020-07-17 16:03 | Diagnostic Imaging Report ---
PICC placement and right UPPER EXTREMITY VENOGRAPHY Indications: Needs long-term IV access for TPN Technique: Ultrasound confirms patent compressible brachial vein. Total sterile technique, including sterile probe cover and sterile gel, hat, mask,, sterile gown, large sterile drape, and preparation with 2% chlorhexidine utilized. Local anesthesia with 1% lidocaine. Under real-time ultrasound guidance, the brachial vein was punctured using 21-gauge needle. There was resistance with passage of an 018 guidewire, necessitating placement of the peel-away sheath, through which a 4 South Korean Kumpe was advanced. Manipulation of the catheter and wire failed to cross into the central veins. A contrast injection was performed, which demonstrated complete occlusion of the distal axillary vein, with collateralization through axillary veins to the right internal jugular and brachiocephalic vein.. The 4 [place] Korean dual-lumen catheter was cut to length, inserted through peel-away sheath, and left in place just before the occlusion in the right axillary vein. Catheter fixed to the skin. Both catheter ports aspirated and flushed. Patient tolerated procedure well, without immediate complication. Total fluoroscopy time 180.3 sec. Total dose area product 9.02mGy Impression: 1. 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 2. Successful placement of right PICC under sonographic and fluoroscopic guidance into the distal right axillary vein. If patient requires more central access, please reconsult radiology for tunneled internal jugular vein PICC placement.
--- NOTE | 2020-07-17 18:45 | NUR ---
NURSE NOTES: Patient sent down for PICC insertion at 1320, returned at 1430, in stable condition. Patient had BIANCA midline inserted, double lumen. Shortly after, noted BIANCA midline dressing leaking, bleeding. Pressure dressing (kerlix with tape) applied x1, flushed, no leaking noted, IVF and MG IV started as ordered. After an hour, patient called stating, "my IV is leaking again", IVF/MG IV stopped, pressure dressing applied again. At 1845, pressure dressing removed and flushed lumens, no leaking noted, entire central line dressing changed using aseptic technique, dressing CDI, skin intact, no bruising noted. IVF/MG IV restarted. No further leaking/bleeding noted at this time. 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
--- NOTE | 2020-07-17 19:24 | NUR ---
NURSE HAND-OFF: Important Events on Shift:BIANCA Midline inserted today at 1400 (had some bleeding/leaking, pressure dressing applied x2, entire central line dressing changed using aseptic technique at 1845, no further bleeding noted), MG x2 bags infused, (x2 more needed), Plans for another Endoscopy 07/20, started full liquids diet, will start TPN/bedside glucose tonight, Vitamin K SQ given as ordered. Patient Status: stable Diet: Full Outputs: Urine: 850 ml Ileostomy: 95 ml Pending Orders: Endoscopy 07/20, (needs consent) Pending Results/Labs:CBC CMP MG PHOS 07/18 Pending MD notification:none Latest Vital Signs: Temperature 98.3 , Pulse 72 , B/P 99 /57 , Respiratory Rate 18 , O2 SAT 94 , Room Air, O2 Flow Rate 6 . Vital Sign Comment: none Latest Henry Fall Score: 35 Fall Risk: Medium Risk Safety Measures: Call light Within Reach, Bed Alarm , Side Rails Side Rails x2, Bed position Low and Locked. Fall Precautions: Yellow Socks Door Sign Patient Fall Education Report given to Justin TRAMMELL. Addendum: 07/17/20 at 1951 by Zulema Potter RN IVF to decrease to 25 ml/hr when TPN (75 ml/hr) is started.
--- NOTE | 2020-07-17 19:43 | NUR ---
NURSE NOTES: Patient in bed, awake, alert x 4. Able to make needs known. Respiration is even and unlabored. No s/s of pain or discomfort noted at this moment. Midline noted, iv fluids is infusing as ordered. Dressing noted, intact. Bed in low and locked position, provided safe environment. call light is at bedside. Will continue plan of care.
[2020-07-17] MEDS ORDERED: Dextrose 10% 1,000 ML IV PRN (20:00)
[2020-07-17] MEDS ORDERED: Fat Emulsion Iv 20% 216 ML in Tpn 1,584 ML IV SCH (20:00)
[2020-07-17] MEDS ORDERED: D5 1/2NS w/KCl 20mEq 1,000 ML IV SCH (20:00)
[2020-07-17] MEDS ORDERED: Tubing IV Secondary IV ONE (20:25)
[2020-07-17] MEDS ORDERED: NS 500ML ONE (20:25)
[2020-07-17] MEDS: Dyna-Hex 2% Top Sol 2oz TOPIC SCH (20:43)
[2020-07-17] MEDS: Atorvastatin 20mg tab ORAL SCH (20:43)
--- NOTE | 2020-07-17 21:15 | NUR ---
NURSE NOTES: Routine medications given. Patient requested trazadone to be given later. TPN started, iv fluid changed, infusing, tolerating. Midline dressing intact. Call light is at bedside. No complaint of pain or discomfort noted. Will continue plan of care.
[2020-07-17] MEDS: TraZODone 100mg tab ORAL SCH (22:08)
--- NOTE | 2020-07-18 00:03 | NUR ---
NURSE NOTES: Patient asleep, easily arousable. Blood sugar check down, within normal limits. No complaint of pain or discomfort noted. Ileo flush done. Midline intact, no s/s of infection noted. Iv fluids and TPN infusing as ordered. Call light is at bedside. Will continue plan of care.
[2020-07-18 04:00] VITALS: BP 108/57
[2020-07-18] MEDS: NovoLOG Insulin Flexpen SUBQ SCH ×2 (05:52)
--- NOTE | 2020-07-18 06:00 | NUR ---
NURSE NOTES: Blood sugar checked, normal. IV fluids infusing, TPN infusing, no pain noted. Call light is at bedside. Will continue plan of care.
--- NOTE | 2020-07-18 06:05 | NUR ---
NURSE NOTES: Flushed as ordered, recorded.
[2020-07-18 06:22] LABS: BASOPHILS % (AUTO) 0.5 % (0.0-2.0); EOSINOPHILS % (AUTO) 0.2 % (0.0-3.0); HEMATOCRIT 35.9 % (37.0-47.0); HEMOGLOBIN 12.2 G/DL (12.0-16.0); LYMPHOCYTES % (AUTO) 28.2 % (20.0-45.0); MEAN CORPUSCULAR VOLUME 93 FL (80-99); MONOCYTES % (AUTO) 8.8 % (1.0-10.0); NEUTROPHILS % (AUTO) 62.3 % (45.0-75.0); PLATELET COUNT 130 K/UL (150-450); RED BLOOD COUNT 3.87 M/UL (4.20-5.40); WHITE BLOOD COUNT 3.7 K/UL (4.8-10.8)
[2020-07-18 06:57] LABS: ALANINE AMINOTRANSFERASE 11 U/L (12-78); ALBUMIN 2.7 G/DL (3.4-5.0); ALBUMIN/GLOBULIN RATIO 0.9 (1.0-2.7); ALKALINE PHOSPHATASE 52 U/L (46-116); ANION GAP 5 mmol/L (5-15); ASPARTATE AMINO TRANSFERASE 11 U/L (15-37); BILIRUBIN,TOTAL 0.3 MG/DL (0.2-1.0); BLOOD UREA NITROGEN 6 mg/dL (7-18); CALCIUM 8.1 MG/DL (8.5-10.1); CARBON DIOXIDE 31 MMOL/L (21-32); CHLORIDE 110 MMOL/L (98-107); CREATININE 0.9 MG/DL (0.55-1.30); PHOSPHORUS 2.9 MG/DL (2.5-4.9); POTASSIUM 4.1 MMOL/L (3.5-5.1); SODIUM 146 MMOL/L (136-145)
--- NOTE | 2020-07-18 07:23 | NUR ---
NURSE HAND-OFF: Important Events on Shift:n/a Patient Status: WNL Diet: Full Liquid Pending Orders: Pending Results/Labs: Pending MD notification: Latest Vital Signs: Temperature 97.4 , Pulse 73 , B/P 108 /57 , Respiratory Rate 16 , O2 SAT 96 , Room Air, O2 Flow Rate 6 . Vital Sign Comment: WNL Latest Henry Fall Score: 35 Fall Risk: Medium Risk Safety Measures: Call light Within Reach, Bed Alarm , Side Rails Side Rails x2, Bed position Low and Locked. Fall Precautions: Yellow Socks Door Sign Patient Fall Education Report given to VALERI Good.
--- NOTE | 2020-07-18 07:27 | NUR ---
NURSE NOTES: Received report from VALERI Anderson. Patient in bed, awake, alert x 4. Able to make needs known, on RA. No respiratory distress note. No s/s of pain or discomfort noted at this moment. Midline noted intact and infusing as ordered. Dressing intact. Bed in low and locked position. Call light within reach. Will continue to monitor.
[2020-07-18 08:00] VITALS: BP 103/55
--- NOTE | 2020-07-18 08:21 | NUR ---
NURSE NOTES: Spoke to regarding patient and TPN and D/C TPN now. Order noted and carried out.
--- NOTE | 2020-07-18 08:33 | General Progress Note ---
Progress Note Progress Note AVSS PICC placed but there is occlusion of distal axillary vein with collaterals so left as a "midline picc" but no central. Tolerating full liquid diet Abdomen soft Kock pouch ileo catheter in place and draining (26 Italian Busch) WBC 3700 Hgb 12.2 Platelets 130,000 NA 146 k 4.1 Imp: Kock pouch malfunction inability to intubate Plan; D/C TPN and start PPN Dr. Morrison to perform follow-up Kock pouch endoscopy Monday, possible dilatation of angulation if possible Lalo Meadows MD Jul 18, 2020 08:32
[2020-07-18] MEDS: BuPROPion SR 100mg tab ORAL SCH ×2 (08:55→17:44)
[2020-07-18] MEDS: MYRBETRIQ 50 MG ORAL SCH (08:55)
[2020-07-18] MEDS: Aspirin Baby 81mg ORAL SCH (08:55)
[2020-07-18] MEDS: Citalopram Hydrobromide 10mg Tab ORAL SCH (08:55)
[2020-07-18] MEDS: Magnesium Oxide 400mg tab ORAL SCH ×3 (08:55→17:44)
[2020-07-18] MEDS: Meloxicam 15 MG TAB ORAL SCH (08:55)
--- NOTE | 2020-07-18 09:04 | NUR ---
RD ASSESSMENT & RECOMMENDATIONS SEE CARE ACTIVITY FOR COMPLETE ASSESSMENT DAILY ESTIMATED NEEDS: Needs based on General/ 58.9kg abw 25-30 kcals/kg 1955-2326 total kcals 1-1.2 (2.0g/kg w/ surgery) g protein/kg 59-70 (118g w/ surgery) g total protein 25-30 mL/kg 4226-4351 total fluid mLs NUTRITION DIAGNOSIS: Altered GI function R/T h/o malfunctioning ileo, as evidenced by pt unable to intubate, awaiting f/up endoscopy next week, monitor need for surgery, full liquid diet ordered at this, to start PPN. CURRENT DIET: full liquid diet PO DIET RECOMMENDATIONS: Diet per MD PARENTERAL NUTRITION RECOMMENDATIONS: D/AA Rate: 75 IL Rate: 7 Total Rate: 82 Volume: 1968 % Dextrose: 10 % AA: 3.0 Energy (kcals/kg): 1164 Protein (g/kg protein): 54 % Fat KCALS: 29 PPN Comment: * FOR PPN : rec D10% AA 3.0% @ 75ml/hr + IL20% @ 7ml/hr-> total of 82ml/hr, all 3:1 : PPN @ goal provides total of 1164kcal and 54g prot, will meet 79% est kcal and 92% est prot needs Rec TPN when central line is obtained FOR TPN: D17% AA 5.3% @ 66ml/hr + 20%IL @9ml/hr-> total of 75ml/hr, all 3:1 - TPN at goal meets 100% est needs. (1684kcal/84g prot-> 28.5kcal/1.4g per kg) - GIR: 3.16mcg, 26% fat of total Kcal, NPC:N ratio 100:1 ADDITIONAL RECOMMENDATIONS: * Standing wt as able while ambulating for accurate CBW (04/28) standing wt of 135.8 lbs (07/16) Bed wt 130 lbs * Monitor lytes, BGs, and LFts closely w/ PN * PPN and TPN rec as above -> currently without central line .
--- NOTE | 2020-07-18 11:50 | NUR ---
NURSE NOTES: Noted with Midline leaking. Removed midline per order and put 4x4 guaze and papertape. No redness, no swelling, no bleeding noted.
[2020-07-18 12:00] VITALS: BP 116/64
[2020-07-18 16:00] VITALS: BP 105/66
--- NOTE | 2020-07-18 19:10 | NUR ---
Received report from VALERI Lott.
--- NOTE | 2020-07-18 19:10 | NUR ---
Received pt. in bed, on high fowlers position, no sob noted, awake, alert and oriented. Denies any pain at this time. With bed in it's lowest position, with alarm on and locked. Call light is within reach. With BCIR on RLQ, draining well, dry and intact. Will continue with plan of care.
--- NOTE | 2020-07-18 19:40 | NUR ---
NURSE HAND-OFF: Important Events on Shift:Removal midline Patient Status: stable Diet: Full liquid Pending Orders: n Pending Results/Labs:n Pending MD notification:n Latest Vital Signs: Temperature 98.0 , Pulse 76 , B/P 105 /66 , Respiratory Rate 14 , O2 SAT 97 , Room Air, O2 Flow Rate 6 . Vital Sign Comment: stable Latest Henry Fall Score: 35 Fall Risk: Medium Risk Safety Measures: Call light Within Reach, Bed Alarm , Side Rails Side Rails x2, Bed position Low and Locked. Fall Precautions: Yellow Socks Door Sign Patient Fall Education Report given to VALERI Corcoran.
[2020-07-18 20:00] VITALS: BP 101/57
[2020-07-18] MEDS: Dyna-Hex 2% Top Sol 2oz TOPIC SCH (20:00)
[2020-07-18] MEDS: Atorvastatin 20mg tab ORAL SCH (20:30)
[2020-07-18] MEDS: FAT EMULSION 20% IV SCH (20:55)
[2020-07-18] MEDS: TPN IV SCH (20:55)
[2020-07-18] MEDS: TraZODone 100mg tab ORAL SCH (21:44)
--- NOTE | 2020-07-18 23:36 | NUR ---
All due meds given. Started on PPN as ordered, able to tolerated well. BCIR flushed done, with good output noted. Slept at short intervals. Will continue to monitor.
[2020-07-19] VITALS: BP 117/83
[2020-07-19] MEDS: HYDROcodone/Acetamin 5/325 tab ORAL PRN ×2 (01:48→21:01)
[2020-07-19 04:00] VITALS: BP 108/64
[2020-07-19 05:43] LABS: BASOPHILS % (AUTO) 0.6 % (0.0-2.0); EOSINOPHILS % (AUTO) 0.3 % (0.0-3.0); HEMATOCRIT 34.9 % (37.0-47.0); HEMOGLOBIN 11.8 G/DL (12.0-16.0); LYMPHOCYTES % (AUTO) 35.7 % (20.0-45.0); MEAN CORPUSCULAR VOLUME 92 FL (80-99); MONOCYTES % (AUTO) 9.7 % (1.0-10.0); NEUTROPHILS % (AUTO) 53.7 % (45.0-75.0); PLATELET COUNT 134 K/UL (150-450); RED BLOOD COUNT 3.78 M/UL (4.20-5.40); RED CELL DISTRIBUTION WIDTH 11.1 % (11.6-14.8); WHITE BLOOD COUNT 3.6 K/UL (4.8-10.8)
[2020-07-19 05:59] LABS: ALANINE AMINOTRANSFERASE 11 U/L (12-78); ALBUMIN 2.7 G/DL (3.4-5.0); ALBUMIN/GLOBULIN RATIO 0.9 (1.0-2.7); ALKALINE PHOSPHATASE 55 U/L (46-116); ANION GAP 4 mmol/L (5-15); ASPARTATE AMINO TRANSFERASE 10 U/L (15-37); BILIRUBIN,TOTAL 0.2 MG/DL (0.2-1.0); BLOOD UREA NITROGEN 6 mg/dL (7-18); CALCIUM 8.6 MG/DL (8.5-10.1); CARBON DIOXIDE 31 MMOL/L (21-32); CHLORIDE 108 MMOL/L (98-107); CREATININE 0.8 MG/DL (0.55-1.30); POTASSIUM 3.9 MMOL/L (3.5-5.1); SODIUM 143 MMOL/L (136-145)
[2020-07-19] MEDS: NovoLOG Insulin Flexpen SUBQ SCH ×4 (06:00→18:00)
--- NOTE | 2020-07-19 06:22 | NUR ---
Pt. refused to take am meds and blood sugar check, requesting to skip it today because she wants to sleep, refused x3, rights respected. No untoward s/s noted. Slept at long intervals. Will continue with plan of care.
--- NOTE | 2020-07-19 07:10 | NUR ---
NURSE HAND-OFF: Important Events on Shift:PPN started Patient Status: Diet: Full liquid Pending Orders: Pending Results/Labs:cbc,cmp Pending MD notification:lab results Latest Vital Signs: Temperature 98.3 , Pulse 72 , B/P 108 /64 , Respiratory Rate 17 , O2 SAT 95 , Room Air, O2 Flow Rate 6 . Vital Sign Comment: Latest Henry Fall Score: 35 Fall Risk: Medium Risk Safety Measures: Call light Within Reach, Bed Alarm , Side Rails Side Rails x2, Bed position Low and Locked. Fall Precautions: Yellow Socks Door Sign Patient Fall Education Report given to .
--- NOTE | 2020-07-19 07:29 | NUR ---
NURSE NOTES: Received report from VALERI Corcoran. Patient in bed, asleep, on RA. No respiratory distress noted. IV noted intact and infusing TPN as ordered. Ileo cath intact draining to gravity. Bed in low and locked position. Call light within reach. Will continue to monitor.
[2020-07-19 07:59] VITALS: BP 127/59
[2020-07-19] MEDS: MYRBETRIQ 50 MG ORAL SCH (08:21)
[2020-07-19] MEDS: Aspirin Baby 81mg ORAL SCH (08:21)
[2020-07-19] MEDS: Magnesium Oxide 400mg tab ORAL SCH ×3 (08:22→18:22)
[2020-07-19] MEDS: Meloxicam 15 MG TAB ORAL SCH (08:22)
[2020-07-19] MEDS: Citalopram Hydrobromide 10mg Tab ORAL SCH (08:22)
[2020-07-19] MEDS: BuPROPion SR 100mg tab ORAL SCH ×2 (08:22→18:22)
--- NOTE | 2020-07-19 09:27 | General Progress Note ---
Subjective ROS Limited/Unobtainable: Yes Allergies: Coded Allergies: ADHESIVE TAPE (Verified Adverse Reaction, Intermediate, Rash, 08/27/19) CLEAR TAPE Objective Last 24 Hour Vital Signs Date Time Temp Pulse Resp B/P (MAP) Pulse Ox O2 Delivery O2 Flow Rate FiO2 07/19/20 09:00 Room Air 07/19/20 07:59 98.3 67 16 127/59 (81) 97 07/19/20 04:00 98.3 72 17 108/64 (79) 95 07/19/20 02:18 98.3 07/19/20 00:00 98.3 84 18 117/83 (94) 98 07/18/20 21:00 Room Air 07/18/20 20:00 98.5 84 16 101/57 (72) 98 07/18/20 16:00 98.0 76 14 105/66 (79) 97 07/18/20 12:00 98.3 81 18 116/64 (81) 96 Intake and Output 07/18/20 07/19/20 19:00 07:00 Intake Total 1480 ml 1074 ml Output Total 1000 ml 1000 ml Balance 480 ml 74 ml Intake Oral 1480 ml 500 ml IV Total 574 ml Output Urine Total 700 ml 800 ml Other 300 ml 200 ml # Voids 3 Laboratory Tests 07/19/20 00:11: POC Whole Blood Glucose 97 07/19/20 04:50: White Blood Count 3.6L, Red Blood Count 3.78L, Hemoglobin 11.8L, Hematocrit 34.9L, Mean Corpuscular Volume 92, Mean Corpuscular Hemoglobin 31.2H, Mean Corpuscular Hemoglobin Concent 33.8, Red Cell Distribution Width 11.1L, Platelet Count 134L, Mean Platelet Volume 6.5, Neutrophils (%) (Auto) 53.7, Lymphocytes (%) (Auto) 35.7, Monocytes (%) (Auto) 9.7, Eosinophils (%) (Auto) 0.3, Basophils (%) (Auto) 0.6, Sodium Level 143, Potassium Level 3.9, Chloride Level 108H, Carbon Dioxide Level 31, Anion Gap 4L, Blood Urea Nitrogen 6L, Creatinine 0.8, Estimat Glomerular Filtration Rate > 60, Glucose Level 122H, Calcium Level 8.6, Total Bilirubin 0.2, Aspartate Amino Transf (AST/SGOT) 10L, Alanine Aminotransferase (ALT/SGPT) 11L, Alkaline Phosphatase 55, Total Protein 5.8L, Albumin 2.7L, Globulin 3.1, Albumin/Globulin Ratio 0.9L Height (Feet): 5 Height (Inches): 4.00 Weight (Pounds): 130 General Appearance: alert EENT: normal ENT inspection Neck: supple Cardiovascular: normal rate Respiratory/Chest: lungs clear Abdomen: soft, hypoactive bowel sounds Extremities: non-tender Assessment/Plan Assessment/Plan: Malfunctioning Kock pouch with 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
[2020-07-19] MEDS ORDERED: Ascorbic Acid 500mg tab ORAL PRN (10:00)
--- NOTE | 2020-07-19 10:04 | General Progress Note ---
Progress Note Progress Note AVSS Tolerating liquids. Has some occluded upper extremity veins per Radiology - has peripheral IV and PPN instead of TPN Abdomen soft, indwelling Kock Pouch catheter draining well WBC low 3600 Hgb 11.8 Platelets 134,000 (last admission had hematology eval for thrombocytopenia) Imp: Malfunctioning Kock Pouch Plan: Endoscopy tomorrow Dr. Cabrera with anesthesia Venous duplex mapping of bilat upper extremities and central veins in AM clear liquid diet today, npo after midnight Lalo Meadows MD Jul 19, 2020 10:04
[2020-07-19 12:00] VITALS: BP 121/60
[2020-07-19 16:00] VITALS: BP 119/63
--- NOTE | 2020-07-19 19:10 | NUR ---
NURSE NOTES: Received pt. in bed, awake, alert and oriented. Denies any pain at this time. No sob noted. With PPN ongoing. With ileo on rlq, draining well. Bed is in it's lowest position, alarmed and locked. Call light was within reach.Will continue to monitor.
--- NOTE | 2020-07-19 19:10 | NUR ---
NURSE NOTES: Received report from VALERI Feng.
--- NOTE | 2020-07-19 19:25 | NUR ---
NURSE HAND-OFF: Important Events on Shift:NA Endoscopy tomorrow Patient Status: stable Diet: clear liquid Pending Orders: n Pending Results/Labs:n Pending MD notification:n Latest Vital Signs: Temperature 98.5 , Pulse 71 , B/P 119 /63 , Respiratory Rate 18 , O2 SAT 97 , Room Air, O2 Flow Rate 6 . Vital Sign Comment: stable Latest Henry Fall Score: 35 Fall Risk: Medium Risk Safety Measures: Call light Within Reach, Bed Alarm , Side Rails Side Rails x2, Bed position Low and Locked. Fall Precautions: Yellow Socks Door Sign Patient Fall Education Report given to VALERI Corcoran.
[2020-07-19 20:00] VITALS: BP 121/61
[2020-07-19] MEDS: Dyna-Hex 2% Top Sol 2oz TOPIC SCH (20:00)
[2020-07-19] MEDS: TPN IV SCH (20:41)
[2020-07-19] MEDS: FAT EMULSION 20% IV SCH (20:41)
[2020-07-19] MEDS: Atorvastatin 20mg tab ORAL SCH (21:00)
[2020-07-19] MEDS: TraZODone 100mg tab ORAL SCH (21:59)
--- NOTE | 2020-07-19 23:41 | NUR ---
NURSE NOTES: All due meds given. Reminded pt. will be placed on NPO by midnight for her surgery and verbalized understanding. Visual check at frequent times. Flushed ileo as ordered. All needs attended. Slept @ short intervals.
[2020-07-20] VITALS (13 sets, daily range): BP systolic 98–142; BP diastolic 47–73
--- NOTE | 2020-07-20 05:21 | NUR ---
Pt. requested not to have vital signs taken @ 0400am and the flushing of ieo because she wants to have a uninterrupted sleep especially today that she will have a procedure; rights respected. Asleep and with no acute s/s noted.
[2020-07-20] MEDS: NovoLOG Insulin Flexpen SUBQ SCH ×5 (06:00→23:38)
[2020-07-20 06:32] LABS: BASOPHILS % (AUTO) 0.8 % (0.0-2.0); EOSINOPHILS % (AUTO) 0.1 % (0.0-3.0); HEMATOCRIT 39.5 % (37.0-47.0); HEMOGLOBIN 13.3 G/DL (12.0-16.0); LYMPHOCYTES % (AUTO) 46.5 % (20.0-45.0); MEAN CORPUSCULAR VOLUME 93 FL (80-99); MONOCYTES % (AUTO) 10.3 % (1.0-10.0); NEUTROPHILS % (AUTO) 42.4 % (45.0-75.0); PLATELET COUNT 163 K/UL (150-450); RED BLOOD COUNT 4.23 M/UL (4.20-5.40); RED CELL DISTRIBUTION WIDTH 11.2 % (11.6-14.8); WHITE BLOOD COUNT 3.5 K/UL (4.8-10.8)
[2020-07-20 06:58] LABS: ANION GAP 4 mmol/L (5-15); BLOOD UREA NITROGEN 10 mg/dL (7-18); CALCIUM 9.5 MG/DL (8.5-10.1); CARBON DIOXIDE 33 MMOL/L (21-32); CHLORIDE 109 MMOL/L (98-107); CREATININE 0.8 MG/DL (0.55-1.30); POTASSIUM 4.7 MMOL/L (3.5-5.1); SODIUM 146 MMOL/L (136-145)
[2020-07-20] MEDS ORDERED: DiphenhydrAMINE 50mg/ml Inj IVP PRN (07:00)
[2020-07-20] MEDS ORDERED: Atropine Inj 1mg/10ml Syr IVP PRN (07:00)
[2020-07-20] MEDS ORDERED: Midazolam 2mg/2ml Inj IVP PRN (07:00)
[2020-07-20] MEDS ORDERED: fentaNYL 100 mcg/2 mL IV PRN (07:00)
--- NOTE | 2020-07-20 07:27 | NUR ---
NURSE HAND-OFF: Important Events on Shift:NPO for Pouchoscopy Patient Status: stable Diet: NPO Pending Orders: Pending Results/Labs:cbc, bmp, mg,phos Pending MD notification: Latest Vital Signs: Temperature 98.0 , Pulse 75 , B/P 107 /57 , Respiratory Rate 17 , O2 SAT 94 , Room Air, O2 Flow Rate 6 . Vital Sign Comment: Latest Henry Fall Score: 35 Fall Risk: Medium Risk Safety Measures: Call light Within Reach, Bed Alarm , Side Rails Side Rails x2, Bed position Low and Locked. Fall Precautions: Yellow Socks Door Sign Patient Fall Education Report given to Paulina TRAMMELL.
--- NOTE | 2020-07-20 08:13 | NUR ---
NURSE NOTES: Report received from Nilo RN. Pt awake in bed, alert and oriented x 4, verbal and able to make needs known, on room air, bed in lowest position with breaks engaged and alarm on, BCIR on RLQ draining well, right FA IV line present, denies any pain at this time, will continue to monitor and proceed with plan of care, call light within reach.
[2020-07-20] MEDS: Citalopram Hydrobromide 10mg Tab ORAL SCH (08:41)
[2020-07-20] MEDS: Aspirin Baby 81mg ORAL SCH (08:41)
[2020-07-20] MEDS: Meloxicam 15 MG TAB ORAL SCH (08:41)
[2020-07-20] MEDS: Magnesium Oxide 400mg tab ORAL SCH ×3 (08:41→17:17)
[2020-07-20] MEDS: BuPROPion SR 100mg tab ORAL SCH ×2 (08:41→17:17)
[2020-07-20] MEDS: MYRBETRIQ 50 MG ORAL SCH (09:03)
--- NOTE | 2020-07-20 09:09 | General Progress Note ---
Progress Note Progress Note AVSS tolerating clear liquids - now NPO for procedure Abdomen soft I&O satisfactory WBC 3500 Hgb 13.3 Platelets up 163,000 Imp: Malfunctioning Kock pouch inability to intubate Malnutrition present on admission Plan; Continue TPN, continuous drainage of Kock pouch For GI lab endoscopy today by Dr. Morrison to reassess angulation, ? dilate, ? insert 30Fr Medena to stent Lalo Meadows MD Jul 20, 2020 09:09
[2020-07-20] MEDS ORDERED: Lidocaine 1% MPF 10mg/ml 5ml ONE (09:30)
--- NOTE | 2020-07-20 09:30 | Anethesia Preoperative Eval ---
Anesthesia Pre-op PMH/ROS General Date of Evaluation: Jul 20, 2020 Time of Evaluation: 09:26 Anesthesiologist: medardo ASA Score: ASA 3 Mallampati Score Class I : Soft palate, uvula, fauces, pillars visible Class II: Soft palate, uvula, fauces visible Class III: Soft palate, base of uvula visible Class IV: Only hard plate visible Mallampati Classification: Class II Surgeon: aliyah Diagnosis: bcir malfunction Surgical Procedure: endopouch dilation Anesthesia History: none Family History: no anesthesia problems Allergies: Coded Allergies: ADHESIVE TAPE (Verified Adverse Reaction, Intermediate, Rash, 08/27/19) CLEAR TAPE Medications: see eMAR Patient NPO?: Yes Past Medical History Cardiovascular: Reports: CAD, other - hypercholesterolemia, Pulmonary: Reports: other - bronchitis, Gastrointestinal/Genitourinary: Reports: GERD, other - colitis, partial bowel obstruction, ibs, kidney stones Neurologic/Psychiatric: Reports: depression/anxiety, other - major depressive disorder HEENT: Reports: cataract (L), cataract (R), other - sinusitis Hematology/Immune: Reports: anemia Anesthesia Pre-op Phys. Exam Physician Exam Last Vital Signs Date Time Temp Pulse Resp B/P (MAP) Pulse Ox O2 Delivery O2 Flow Rate FiO2 07/20/20 08:00 98.0 75 19 121/67 (85) 94 07/19/20 21:00 Room Air 07/16/20 14:55 6 Constitutional: NAD Neurologic: CN 2-12 intact Cardiovascular: RRR Respiratory: CTA Gastrointestinal: S/NT/ND, other - bcir Airway Exam Mallampati Score: Class II MO: limited Neck: flexible TMD: 2fb ROM: limited Anesthesia Pre-op A/P Labs Microbiology Date/Time Source Procedure Growth Status 07/15/20 13:25 Nasopharynx SARS-CoV-2 RdRp Gene Assay - Final Complete Hematology Test 07/20/20 05:35 White Blood Count 3.5 K/UL (4.8-10.8) L Red Blood Count 4.23 M/UL (4.20-5.40) Hemoglobin 13.3 G/DL (12.0-16.0) Hematocrit 39.5 % (37.0-47.0) Mean Corpuscular Volume 93 FL (80-99) Mean Corpuscular Hemoglobin 31.5 PG (27.0-31.0) H Mean Corpuscular Hemoglobin Concent 33.7 G/DL (32.0-36.0) Red Cell Distribution Width 11.2 % (11.6-14.8) L Platelet Count 163 K/UL (150-450) Mean Platelet Volume 6.7 FL (6.5-10.1) Neutrophils (%) (Auto) 42.4 % (45.0-75.0) L Lymphocytes (%) (Auto) 46.5 % (20.0-45.0) H Monocytes (%) (Auto) 10.3 % (1.0-10.0) H Eosinophils (%) (Auto) 0.1 % (0.0-3.0) Basophils (%) (Auto) 0.8 % (0.0-2.0) Chemistry Test 07/19/20 12:01 07/19/20 18:25 07/20/20 05:35 POC Whole Blood Glucose Pending Pending Sodium Level 146 MMOL/L (136-145) H Potassium Level 4.7 MMOL/L (3.5-5.1) Chloride Level 109 MMOL/L (98-107) H Carbon Dioxide Level 33 MMOL/L (21-32) H Anion Gap 4 mmol/L (5-15) L Blood Urea Nitrogen 10 mg/dL (7-18) Creatinine 0.8 MG/DL (0.55-1.30) Estimat Glomerular Filtration Rate > 60 mL/min (>60) Glucose Level 93 MG/DL (74-106) Calcium Level 9.5 MG/DL (8.5-10.1) Phosphorus Level 4.0 MG/DL (2.5-4.9) Magnesium Level 1.9 MG/DL (1.8-2.4) Risk Assessment & Plan Assessment: asa3 Plan: mac Status Change Before Surgery: No Pre-Antibiotics Drug: Magalys Kaur MD Jul 20, 2020 09:30
--- NOTE | 2020-07-20 09:55 | Pre-Procedure Note/Attestation ---
Pre-Procedure Note/Attestation Complete Prior to Procedure Planned Procedure: not applicable Procedure Narrative: pouchoscopy Indications for Procedure Pre-Operative Diagnosis: out let obstruction Attestation I attest that I discussed the nature of the procedure; its benefits; risks and complications; and alternatives (and the risks and benefits of such alternatives), prior to the procedure, with the patient (or the patient's legal outbound call center representative). I attest that, if there was a reasonable possibility of needing a blood transfusion, the patient (or the patient's legal outbound call center representative) was given the [facility] standardized written summary, pursuant to the Will Brandon Blood Safety Act ([place] Health and Safety Code # 1645, as amended). I attest that I re-evaluated the patient just prior to the surgery and that there has been no change in the patient's H&P, except as documented below: Adrian Morrison MD Jul 20, 2020 09:55
[2020-07-20] MEDS ORDERED: NS 500ML IVPB ONE (10:00)
--- NOTE | 2020-07-20 10:21 | Endoscopy Procedure Note ---
Endoscopy Procedure Note General Indication for Procedure: pouch out let obstruction Procedures Performed: other - pouchoscopy Operative Findings/Diagnosis: same Specimen: none Pt Tolerated Procedure Well: Yes Estimated Blood Loss: none Anesthesia Anesthesiologist: satya nuñez Anesthesia: MAC Inserted Devices Implant(s) used?: No GI Core Measures 50 yrs or older w/o bx or poly: Not Applicable 10yrs. F/U recommended: Not Applicable Adrian Morrison MD Jul 20, 2020 10:21
--- NOTE | 2020-07-20 10:37 | NUR ---
NURSE NOTES: Patient left for Pouchoscopy procedure at around 9:50 am in stable condition.
--- NOTE | 2020-07-20 10:40 | Immediate Post-Op Evaluation ---
Immediate Post-Op Evalulation Immediate Post-Op Evalulation Procedure: endo pouch dilation Date of Evaluation: Jul 20, 2020 Time of Evaluation: 09:34 IV Fluids: 250 ml 0.9ns Blood Products: none Estimated Blood Loss: negligible Blood Pressure Systolic: 113 Blood Pressure Diastolic: 49 Pulse Rate: 74 Respiratory Rate: 18 O2 Sat by Pulse Oximetry: 100 Temperature (Fahrenheit): 98.2 Pain Score (1-10): 0 Nausea: No Vomiting: No Complications none Patient Status: awake, reacts, patent Hydration Status: adequate Drug: Magalys Kaur MD Jul 20, 2020 10:40
--- NOTE | 2020-07-20 10:41 | 48 Hour Post Anesthesia Eval ---
Post Anesthesia Evaluation Procedure: endo pouch dilation Date of Evaluation: Jul 20, 2020 Time of Evaluation: 10:26 Blood Pressure Systolic: 104 0: 49 Pulse Rate: 70 Respiratory Rate: 18 Temperature (Fahrenheit): 98.2 O2 Sat by Pulse Oximetry: 100 Airway: patent Nausea: No Vomiting: No Pain Intensity: 0 Hydration Status: adequate Cardiopulmonary Status: stable Mental Status/LOC: patient returned to baseline Post-Anesthesia Complications: none Magalys Atkinosn MD Jul 20, 2020 10:41
--- NOTE | 2020-07-20 10:42 | NUR ---
NURSE NOTES: Right axillary vein occlusion reported to Dr. Meadows.
--- NOTE | 2020-07-20 10:44 | Procedure Note ---
DATE OF PROCEDURE: 07/20/2020 SURGEON: Adrian Morrison MD. PROCEDURE: Pouchoscopy with Busch placement in the pouch. ANESTHESIA: Per Dr. Han. INSTRUMENT: Olympus adult flexible upper endoscope. INDICATION: Pouch outlet obstruction. REASON FOR PROCEDURE: The procedure, risks, benefits, and possible consequences, including hemorrhage, aspiration, perforation and infection, and alternative treatments, were explained to the patient/legal guardian by Dr. Adrian Morrison and the patient/legal guardian understood and accepted these risks. PROCEDURE IN DETAIL: After informed consent was obtained and the patient was adequately sedated, Olympus upper endoscope was advanced into the pouch. There was a sharp angulation getting the scope into pouch. When we get into the pouch, there was some bile retained in the pouch. The looked okay. We inserted the wire and through the wire, a 28-Wolof Busch was placed into the pouch. At this time, the scope was retrieved and procedure was terminated. SUMMARY OF FINDINGS: 1. It seems that the patient has some kind of pouch also with obstruction or narrowing secondary to angulation at the exit area. 2. Status post 28-Wolof Busch placement into the pouch. RECOMMENDATIONS: Followup with surgery for further management. I want to thank, Dr. Lalo Meadows, for this kind referral. Adrian Morrison M.D. DR: Ivett JOB#: [id number] CC: Lalo Meadows M.D.; Fax#: [phone]
[2020-07-20] MEDS: HYDROcodone/Acetamin 5/325 tab ORAL PRN ×2 (15:58→23:40)
--- NOTE | 2020-07-20 15:58 | NUR ---
CASE MANAGEMENT: REVIEW 07/20/20 SI:S/P POUCH ENDOSCOPY MALFUNCTIONING KOCK POUCH W/ INABILITY TO INTUBATE W/ RESULTING FUNCTION SMALL BOWEL OBSTRUCTION 97.1 72 13 126/59 100% ON RA WBC 3.5 NA+146 CO2 33 IS:IN SURGERY NOW FOR POUCH DILATION IVF NS BOLUS X1 MAG-OX PO TID MOBIC PO QS ASA PO QD IV TPN PROTOCOL \: 3E MED SURG UNIT DCP: HOME WHEN STABLE PLAN: CONT TPN CONT DRAINAGE OF KOCK POUCH POUCH ENDOSCOPY 07/16 ~ANGULATION TO STOMA ORIFICE ~WIRE AND CATH INSERTED IN SURGERY PROCEDURE
--- NOTE | 2020-07-20 16:36 | Diagnostic Imaging Report ---
Indication: Right upper extremity edema Technique: Grayscale and duplex images of the bilateral upper extremity veins Comparison: none Findings: The right axillary vein is occluded, with absence of flow and absence of compressibility. This extends into the right brachial vein, which demonstrates nonocclusive thrombus. The basilic and cephalic vein are patent and compressible. On the left, grayscale and duplex images demonstrate no evidence of intraluminal thrombus. Normal phasic Doppler waveforms and normal compressibility. Impression: Positive for right axillary and brachial venous thrombosis. Note that this was also documented on venography performed during recent PICC placement
[2020-07-20] MEDS ORDERED: Lidocaine 1% Plain 30 ml INJ PRN (16:39)
--- NOTE | 2020-07-20 19:28 | NUR ---
NURSE HAND-OFF: Important Events on Shift:[Pouchoscopy procedure, new IV line on left FA] Patient Status: [stable] Diet: [BCIR low residue diet] Pending Orders: [] Pending Results/Labs:[] Pending MD notification:[] Latest Vital Signs: Temperature 97.8 , Pulse 75 , B/P 105 /54 , Respiratory Rate 16 , O2 SAT 94 , Room Air, O2 Flow Rate 6 . Vital Sign Comment: [] Latest Henry Fall Score: 35 Fall Risk: Medium Risk Safety Measures: Call light Within Reach, Bed Alarm , Side Rails Side Rails x2, Bed position Low and Locked. Fall Precautions: Yellow Socks Door Sign Patient Fall Education Report given to [VALERI Mojica].
--- NOTE | 2020-07-20 19:30 | NUR ---
NURSE NOTES: Received report & pt from VALERI Gallardo. Pt in bed, a&ox4, in room air. No s/s of acute distress & no c/o pain. Ileo cath intact & draining to gravity. Dressing C/D/I. IV site intact with TPN running as ordered. Plan of care discussed.
[2020-07-20] MEDS: Dyna-Hex 2% Top Sol 2oz TOPIC SCH (19:59)
[2020-07-20] MEDS: TraZODone 100mg tab ORAL SCH (20:18)
[2020-07-20] MEDS: Atorvastatin 20mg tab ORAL SCH (20:18)
[2020-07-20] MEDS: TPN IV SCH (20:19)
[2020-07-20] MEDS: FAT EMULSION 20% IV SCH (20:19)
[2020-07-21] MEDS: NovoLOG Insulin Flexpen SUBQ SCH ×4 (05:17→23:45)
--- NOTE | 2020-07-21 07:18 | NUR ---
NURSE HAND-OFF: Important Events on Shift:pain management. Sanborn given x1 Patient Status: stable Diet: BCIR Pending Orders: Laceration tray at bedside. AM shift just need to pull out Lidocaine from pyxis. Will endorse. Pending Results/Labs:none Pending MD notification:none Latest Vital Signs: Temperature 98.3 , Pulse 73 , B/P 98 /54 , Respiratory Rate 16 , O2 SAT 95 , Room Air, O2 Flow Rate 6 . Vital Sign Comment: none Latest Henry Fall Score: 35 Fall Risk: Medium Risk Safety Measures: Call light Within Reach, Bed Alarm , Side Rails Side Rails x2, Bed position Low and Locked. Fall Precautions: Yellow Socks Door Sign Patient Fall Education Report given to VALERI Lakhani.
[2020-07-21 08:00] VITALS: BP 94/52
--- NOTE | 2020-07-21 08:01 | NUR ---
NURSE NOTES: Received report from Galina TRAMMELL, pt is a/a/o x4 laying in bed with no signs of distress or other issues at this time. ileostomy bag draining to gravity, total over night out put: 190ml. total urine out put: 950ml. per report patient refused 6:00 accucheck, however midnight accucheck was 105 and no coverage was needed. call light within reach, bed in lowest position. side rales up x2.I will f/u as needed.
[2020-07-21] MEDS: MYRBETRIQ 50 MG ORAL SCH (08:59)
[2020-07-21] MEDS: Meloxicam 15 MG TAB ORAL SCH (08:59)
[2020-07-21] MEDS: Citalopram Hydrobromide 10mg Tab ORAL SCH (08:59)
[2020-07-21] MEDS: Magnesium Oxide 400mg tab ORAL SCH ×3 (08:59→17:41)
[2020-07-21] MEDS: Aspirin Baby 81mg ORAL SCH (09:00)
[2020-07-21] MEDS: BuPROPion SR 100mg tab ORAL SCH ×2 (09:00→17:40)
[2020-07-21 12:00] VITALS: BP 94/52
--- NOTE | 2020-07-21 12:54 | General Progress Note ---
Subjective ROS Limited/Unobtainable: Yes Allergies: Coded Allergies: ADHESIVE TAPE (Verified Adverse Reaction, Intermediate, Rash, 08/27/19) CLEAR TAPE Objective Last 24 Hour Vital Signs Date Time Temp Pulse Resp B/P (MAP) Pulse Ox O2 Delivery O2 Flow Rate FiO2 07/21/20 09:00 Room Air 07/21/20 08:00 97.7 70 18 94/52 (66) 98 07/20/20 23:44 98.3 73 16 98/54 (69) 95 07/20/20 21:00 Room Air 07/20/20 20:00 98.8 73 18 99/54 (69) 92 07/20/20 16:28 97.8 07/20/20 16:00 97.8 75 16 105/54 (71) 94 Intake and Output 07/20/20 07/21/20 18:59 06:59 Intake Total 1030 ml 1262 ml Output Total 1880 ml 1140 ml Balance -850 ml 122 ml Intake Oral 650 ml 360 ml IV Total 300 ml 902 ml Other 80 ml Output Urine Total 1700 ml 950 ml Other 180 ml 190 ml # Voids 5 Laboratory Tests 07/20/20 17:18: POC Whole Blood Glucose 95 07/20/20 23:32: POC Whole Blood Glucose 105 07/21/20 12:07: POC Whole Blood Glucose [Pending] Height (Feet): 5 Height (Inches): 4.00 Weight (Pounds): 135 General Appearance: alert EENT: normal ENT inspection Neck: supple Cardiovascular: normal rate Respiratory/Chest: decreased breath sounds Abdomen: non tender, soft Extremities: non-tender Assessment/Plan Assessment/Plan: Malfunctioning Kock pouch with inability to intubate with resulting functional small-bowel obstruction ulcerative colitis s/p pouchoscopy doing better fu surg Adrian Morrison MD Jul 21, 2020 12:54
--- NOTE | 2020-07-21 14:59 | General Progress Note ---
Progress Note Progress Note AVSS Tolerating small amounts of BCIR diet + PPN Duplex shows left upper extremity without any venous occlusions Abdomen soft, flat Kock pouch catheter re-positioned slightly and re-taped - will need to suture in place Imp: Stable with indwelling Kock pouch catheter Plan; Leave catheter in place x 2 weeks, then remove and try self-intubations in GI lab for potential endoscopy and wire placement again Will need 2-3 days in-patient to learn indwelling catheter care with plugging, irrigating, etc Lalo Meadows MD Jul 21, 2020 14:59
[2020-07-21 15:59] VITALS: BP 97/80
[2020-07-21] MEDS ORDERED: NS Irrig 1000ml ONE (16:03)
[2020-07-21] MEDS: HYDROcodone/Acetamin 5/325 tab ORAL PRN (16:37)
[2020-07-21] MEDS: TPN IV SCH (19:52)
[2020-07-21] MEDS: FAT EMULSION 20% IV SCH (19:52)
[2020-07-21 20:00] VITALS: BP 105/69
[2020-07-21] MEDS: Dyna-Hex 2% Top Sol 2oz TOPIC SCH (20:00)
--- NOTE | 2020-07-21 20:13 | NUR ---
NURSE HAND-OFF: Important Events on Shift: Patient Status: [full code] Diet: BCIR diet Pending Orders: Pending Results/Labs:CBC, CMP, PHOS, MG,POC-GLU Pending MD notification: Latest Vital Signs: Temperature 98.8 , Pulse 74 , B/P 97 /80 , Respiratory Rate 20 , O2 SAT 98 , Room Air, O2 Flow Rate 6 . Vital Sign Comment: STABLE Latest Henry Fall Score: 35 Fall Risk: Medium Risk Safety Measures: Call light Within Reach, Bed Alarm , Side Rails Side Rails x2, Bed position Low and Locked. Fall Precautions: Yellow Socks Door Sign Patient Fall Education Report given to Lakesha TRAMMELL. pt in stable condition. - during my shift pt was able to ambulate around the unit x2 with steady gait. - laceration tray in pt's rooms as ordered by Dr. Meadows I&O's Ileostomy: [phone] (one extra flush given for thick out put) urine: 1100 ml blood sugar: 92, 118 (no coverage needed)
[2020-07-21] MEDS: TraZODone 100mg tab ORAL SCH (20:30)
[2020-07-21] MEDS: Atorvastatin 20mg tab ORAL SCH (20:30)
[2020-07-22] VITALS: BP 94/57
[2020-07-22] MEDS: NovoLOG Insulin Flexpen SUBQ SCH ×2 (05:29→12:00)
[2020-07-22 05:40] LABS: BASOPHILS % (AUTO) 0.3 % (0.0-2.0); EOSINOPHILS % (AUTO) 0.1 % (0.0-3.0); HEMATOCRIT 34.1 % (37.0-47.0); HEMOGLOBIN 11.5 G/DL (12.0-16.0); LYMPHOCYTES % (AUTO) 27.3 % (20.0-45.0); MEAN CORPUSCULAR VOLUME 93 FL (80-99); MONOCYTES % (AUTO) 9.1 % (1.0-10.0); NEUTROPHILS % (AUTO) 63.2 % (45.0-75.0); PLATELET COUNT 177 K/UL (150-450); RED BLOOD COUNT 3.66 M/UL (4.20-5.40); RED CELL DISTRIBUTION WIDTH 11.5 % (11.6-14.8); WHITE BLOOD COUNT 4.9 K/UL (4.8-10.8)
[2020-07-22 05:52] LABS: ALBUMIN 2.6 G/DL (3.4-5.0); ALBUMIN/GLOBULIN RATIO 1.1 (1.0-2.7); BILIRUBIN,TOTAL 0.2 MG/DL (0.2-1.0); CALCIUM 8.8 MG/DL (8.5-10.1); PHOSPHORUS 4.5 MG/DL (2.5-4.9); POTASSIUM 4.5 MMOL/L (3.5-5.1)
--- NOTE | 2020-07-22 06:40 | NUR ---
NURSE HAND-OFF: Important Events on Shift:[none] Patient Status: [stable] Diet: [BCIR low res] Pending Orders: [] Pending Results/Labs:[CBC CMP Mag Phos] Pending MD notification:[] Latest Vital Signs: Temperature 98.3 , Pulse 81 , B/P 94 /57 , Respiratory Rate 18 , O2 SAT 98 , Room Air, O2 Flow Rate 6 . Vital Sign Comment: [VSS] Latest Henry Fall Score: 35 Fall Risk: Medium Risk Safety Measures: Call light Within Reach, Bed Alarm , Side Rails Side Rails x2, Bed position Low and Locked. Fall Precautions: Yellow Socks: ON Door Sign Patient Fall Education Report given to []. Addendum: 07/22/20 at 0644 by Wendi Gonzales RN I & O oral intake 472 ml urine output 300 ml ileo output 160 ml
--- NOTE | 2020-07-22 07:31 | NUR ---
HAND-OFF: Report given to VALERI Haider.
[2020-07-22 08:00] VITALS: BP 99/53
--- NOTE | 2020-07-22 08:00 | NUR ---
NURSE NOTES: received patient lying on bed, in room air, asleep, no sign of acute distress noted. IV access left wrist gauge 20. Receives TPN. Bed locked at the lowest position possible, call light within easy reach, side rails up x2. Will continue to monitor patient and follow up with the plan of care.
[2020-07-22] MEDS: BuPROPion SR 100mg tab ORAL SCH ×2 (09:17→18:06)
[2020-07-22] MEDS: MYRBETRIQ 50 MG ORAL SCH (09:17)
[2020-07-22] MEDS: Aspirin Baby 81mg ORAL SCH (09:18)
[2020-07-22] MEDS: Meloxicam 15 MG TAB ORAL SCH (09:18)
[2020-07-22] MEDS: Magnesium Oxide 400mg tab ORAL SCH ×3 (09:18→18:06)
[2020-07-22] MEDS: Citalopram Hydrobromide 10mg Tab ORAL SCH (09:18)
[2020-07-22] MEDS: HYDROcodone/Acetamin 5/325 tab ORAL PRN ×3 (09:18→22:53)
--- NOTE | 2020-07-22 09:57 | General Progress Note ---
Subjective ROS Limited/Unobtainable: No Allergies: Coded Allergies: ADHESIVE TAPE (Verified Adverse Reaction, Intermediate, Rash, 08/27/19) CLEAR TAPE Objective Last 24 Hour Vital Signs Date Time Temp Pulse Resp B/P (MAP) Pulse Ox O2 Delivery O2 Flow Rate FiO2 07/22/20 08:00 98.6 83 18 99/53 (68) 96 07/22/20 00:00 98.3 81 18 94/57 (69) 98 07/21/20 21:04 Room Air 07/21/20 20:00 98.7 82 20 105/69 (81) 98 07/21/20 17:07 98.8 07/21/20 15:59 98.8 74 20 97/80 (86) 98 07/21/20 12:00 98.3 5 19 94/52 (66) 98 Intake and Output 07/21/20 07/22/20 19:00 07:00 Intake Total 1810 ml 472 ml Output Total 1550 ml 460 ml Balance 260 ml 12 ml Intake Oral 826 ml 472 ml IV Total 984 ml Output Urine Total 1100 ml 300 ml Other 450 ml 160 ml Laboratory Tests 07/21/20 12:07: POC Whole Blood Glucose [Pending] 07/21/20 16:39: POC Whole Blood Glucose 118H 07/22/20 04:50: White Blood Count 4.9, Red Blood Count 3.66L, Hemoglobin 11.5L, Hematocrit 34.1L , Mean Corpuscular Volume 93, Mean Corpuscular Hemoglobin 31.4H, Mean Corpuscular Hemoglobin Concent 33.7, Red Cell Distribution Width 11.5L, Platelet Count 177, Mean Platelet Volume 6.4L, Neutrophils (%) (Auto) 63.2, Lymphocytes (%) (Auto) 27.3, Monocytes (%) (Auto) 9.1, Eosinophils (%) (Auto) 0.1, Basophils (%) (Auto) 0.3, Sodium Level 142, Potassium Level 4.5, Chloride Level 107, Carbon Dioxide Level 32, Anion Gap 3L, Blood Urea Nitrogen 27H, Creatinine 1.0, Estimat Glomerular Filtration Rate 55.0, Glucose Level 87, Calcium Level 8.8, Phosphorus Level 4.5, Magnesium Level 1.7L, Total Bilirubin 0.2, Aspartate Amino Transf (AST/SGOT) 16, Alanine Aminotransferase (ALT/SGPT) 14, Alkaline Phosphatase 60, Total Protein 4.9L, Albumin 2.6L, Globulin 2.3, Albumin/Globulin Ratio 1.1 Height (Feet): 5 Height (Inches): 4.00 Weight (Pounds): 135 General Appearance: no apparent distress EENT: normal ENT inspection Neck: supple Cardiovascular: normal rate Respiratory/Chest: decreased breath sounds Abdomen: normal bowel sounds, non tender, soft Extremities: non-tender Assessment/Plan Assessment/Plan: Malfunctioning Kock pouch with inability to intubate with resulting functional small-bowel obstruction ulcerative colitis s/p pouchoscopy doing better on TPN fu surg recs Adrian Morrison MD Jul 22, 2020 09:57
[2020-07-22 12:00] VITALS: BP 99/60
--- NOTE | 2020-07-22 12:38 | General Progress Note ---
Progress Note Progress Note AVSS tolerating BCIR diet with some natalie-incisional pains, but no cramping. Swelling of left forearm with peripheral IV - upper arm negative Abdomen soft, indwelling Kock pouch catheter stable and draining well Urine 1300 Kock pouch ileo 510 WBC 4900 Hgb 11.5 Platelets 177,000 BUN 27 Cr 1.0 Mg 1.7 albumin 2.6 Imp: Stable Plan; d/c PPN and remove IV and elevate left arm In am start RN supervised/teaching plugging of Kock pouch catheter with q3-4h emptying and flushing Lalo Meadows MD Jul 22, 2020 12:38
--- NOTE | 2020-07-22 13:07 | NUR ---
RD ASSESSMENT & RECOMMENDATIONS SEE CARE ACTIVITY FOR COMPLETE ASSESSMENT DAILY ESTIMATED NEEDS: Needs based on General/ 58.9kg abw 25-30 kcals/kg 5347-8772 total kcals 1-1.2 (2.0g/kg w/ surgery) g protein/kg 59-70 (118g w/ surgery) g total protein 25-30 mL/kg 2390-0625 total fluid mLs NUTRITION DIAGNOSIS: Altered GI function R/T h/o malfunctioning ileo, as evidenced by pt unable to intubate, awaiting now s/p pouch endoscopy, on BCIR low residue diet, PPN now dc'ed. CURRENT DIET:BCIR LOW RESIDUE DIET PO DIET RECOMMENDATIONS: Diet per MD ADDITIONAL RECOMMENDATIONS: * Standing wt as able while ambulating for accurate CBW (04/28) standing wt of 135.8 lbs (07/16) Bed wt 130 lbs * Monitor PO tolerance and acceptance, need for additional snacks/HPN * Monitor lytes, replete as needed . .
[2020-07-22] MEDS: Simethicone 80mg tab ORAL PRN ×3 (13:14→22:53)
--- NOTE | 2020-07-22 15:58 | NUR ---
CASE MANAGEMENT: REVIEW 07/22/20 SI:S/P POUCH DILATION . S/P POUCH ENDOSCOPY MALFUNCTIONING KOCK POUCH W/ INABILITY TO INTUBATE W/ RESULTING FUNCTION SMALL BOWEL OBSTRUCTION 98.3 81 18 94/57 98% ON RA BUN 27 MG 1.7 ALB 2.6 IS:IV MG SULFATE X2 BAGS MAG-OX PO TID MOBIC PO QS ASA PO QD IV TPN PROTOCOL WELLBUTRIN PO BID \: 3E MED SURG UNIT DCP: HOME WHEN STABLE PLAN: DC TPN CONT DRAINAGE OF KOCK POUCH CONTROL JACLYN-INCISIONAL PAIN AM EDUCATION-RN supervised/teaching plugging of Kock pouch catheter with q3-4h emptying and flushing
[2020-07-22 16:00] VITALS: BP 93/49
--- NOTE | 2020-07-22 19:25 | NUR ---
NURSE HAND-OFF: Important Events on Shift:[] Patient Status: [] Diet: [BCIR low residue] Pending Orders: [] Pending Results/Labs:[] Pending MD notification:[] Latest Vital Signs: Temperature 98.4 , Pulse 79 , B/P 97 /43 , Respiratory Rate 16 , O2 SAT 95 , Room Air, O2 Flow Rate 6 . Vital Sign Comment: [] Latest Henry Fall Score: 35 Fall Risk: Medium Risk Safety Measures: Call light Within Reach, Bed Alarm , Side Rails Side Rails x2, Bed position Low and Locked. Fall Precautions: Yellow Socks Door Sign Patient Fall Education Report given to [Vitaly Hsu RN].
--- NOTE | 2020-07-22 19:35 | NUR ---
NURSE NOTES: Received report from VALERI Haider. AAO x 4, on room air, ambulatory. Denies pain. Ileo on RLQ and green liquid output draining well by gravity. Will flush Q3hrs. No IV access and MD aware. No BP on R arm. L arm swollen noted and elevated with pillow. Able to needs known. Bed locked, lowest position, alarm on, call light within reach. Will continue to monitor.
[2020-07-22 20:00] VITALS: BP 97/43
[2020-07-22] MEDS: Dyna-Hex 2% Top Sol 2oz TOPIC SCH (20:00)
[2020-07-22] MEDS: Atorvastatin 20mg tab ORAL SCH (20:18)
[2020-07-22] MEDS: TraZODone 100mg tab ORAL SCH (20:19)
[2020-07-23] VITALS: BP 90/48
[2020-07-23 04:00] VITALS: BP 97/45
[2020-07-23] MEDS: HYDROcodone/Acetamin 5/325 tab ORAL PRN ×2 (05:49→13:59)
[2020-07-23] MEDS: Simethicone 80mg tab ORAL PRN (05:49)
[2020-07-23 06:42] LABS: BASOPHILS % (AUTO) 0.3 % (0.0-2.0); EOSINOPHILS % (AUTO) 0.2 % (0.0-3.0); HEMATOCRIT 34.3 % (37.0-47.0); HEMOGLOBIN 11.5 G/DL (12.0-16.0); LYMPHOCYTES % (AUTO) 13.2 % (20.0-45.0); MEAN CORPUSCULAR VOLUME 94 FL (80-99); NEUTROPHILS % (AUTO) 82.3 % (45.0-75.0); PLATELET COUNT 159 K/UL (150-450); RED BLOOD COUNT 3.66 M/UL (4.20-5.40); RED CELL DISTRIBUTION WIDTH 11.3 % (11.6-14.8); WHITE BLOOD COUNT 7.1 K/UL (4.8-10.8)
--- NOTE | 2020-07-23 07:05 | NUR ---
NURSE HAND-OFF: Important Events on Shift:ileostomy care, pain Patient Status: stable Diet: BCIR low residual Pending Orders: N Pending Results/Labs:AM labs Pending MD notification:N Latest Vital Signs: Temperature 98.4 , Pulse 81 , B/P 97 /45 , Respiratory Rate 18 , O2 SAT 93 , Room Air, O2 Flow Rate 6 . Vital Sign Comment: [] Latest Henry Fall Score: 35 Fall Risk: Medium Risk Safety Measures: Call light Within Reach, Bed Alarm , Side Rails Side Rails x2, Bed position Low and Locked. Fall Precautions: Yellow Socks Door Sign Patient Fall Education Addendum: 07/23/20 at 0758 by SWAPNIL PIÑA RN RN HAND-OFF: Report given to VALERI Poole.
[2020-07-23 07:38] LABS: ALBUMIN 2.8 G/DL (3.4-5.0); ALBUMIN/GLOBULIN RATIO 1.2 (1.0-2.7); BILIRUBIN,TOTAL 0.3 MG/DL (0.2-1.0); CREATININE 1.1 MG/DL (0.55-1.30); PHOSPHORUS 3.5 MG/DL (2.5-4.9); POTASSIUM 4.1 MMOL/L (3.5-5.1)
--- NOTE | 2020-07-23 07:52 | NUR ---
NURSE NOTES: Report received from Vanda TRAMMELL, rounds made. Patient sleeping, awakens easily in semi-fowlers position in bed, calm. Respirations even/unlabored on RA. No distress noted, denies SOB, NV. RLQ BCIR, catheter in place, dressing CDI, to drainage bag, light brown output to gravity. No IV access. ILIR elevated. Patient complains of abdominal pain 05/08, will notify Dr. Meadows, due to recent [place] PRN given was not effective. Call light in reach, bed in lowest position, will continue to monitor.
[2020-07-23 08:02] VITALS: BP 89/49
[2020-07-23] MEDS: Citalopram Hydrobromide 10mg Tab ORAL SCH (09:46)
[2020-07-23] MEDS: BuPROPion SR 100mg tab ORAL SCH ×2 (09:46→18:36)
[2020-07-23] MEDS: Magnesium Oxide 400mg tab ORAL SCH ×3 (09:46→18:37)
[2020-07-23] MEDS: Aspirin Baby 81mg ORAL SCH (09:47)
[2020-07-23] MEDS: MYRBETRIQ 50 MG ORAL SCH (09:47)
[2020-07-23] MEDS: Meloxicam 15 MG TAB ORAL SCH (09:47)
--- NOTE | 2020-07-23 10:40 | General Progress Note ---
Progress Note Progress Note AVSS Having more abdominal pain and abdominal wall neuralgia and muscle spasme, not gas cramps. This has been ongoing for past month Tolerating BCIR diet 75% Abdomen soft, flat, mild tenderness lateral rectus border left of incision Stoma and pouch catheter stable Urine 1909 Kock Pouch ileo 1290 Imp: Abdominal wall pain Plan; [place] q4h prn; add flexeril TID Maintain indwelling pouch catheter - securely taped, will suture in place prior to discharge stool for c. diff Lalo Meadows MD Jul 23, 2020 10:39
--- NOTE | 2020-07-23 10:42 | NUR ---
RADIOLOGY DEPT., ABDOMEN X-RAY DONE.-P.DYE
[2020-07-23] MEDS: Cyclobenzaprine 10mg Tab ORAL SCH ×3 (10:52→18:37)
--- NOTE | 2020-07-23 11:00 | NUR ---
NURSE NOTES: Portable ABD XR done at 0930. Stool for CDIFF sent down to lab at 1100. Applied warm compress to ILIR, elevated on pillow, mild pink noted, Dr. Meadows aware, also BP 89/49 this AM, Dr. Meadows aware, blood pressure from previous shifts reviewed with Dr. Meadows. Patient asymptomatic. No further orders.
[2020-07-23 12:00] VITALS: BP 108/56
--- NOTE | 2020-07-23 13:06 | General Progress Note ---
Subjective ROS Limited/Unobtainable: Yes Allergies: Coded Allergies: ADHESIVE TAPE (Verified Adverse Reaction, Intermediate, Rash, 08/27/19) CLEAR TAPE Objective Last 24 Hour Vital Signs Date Time Temp Pulse Resp B/P (MAP) Pulse Ox O2 Delivery O2 Flow Rate FiO2 07/23/20 08:02 98.1 67 18 89/49 (62) 93 07/23/20 04:00 98.4 81 18 97/45 (62) 93 07/23/20 00:00 98.4 82 18 90/48 (62) 93 07/22/20 21:00 Room Air 07/22/20 20:00 98.4 79 16 97/43 (61) 95 07/22/20 16:31 98.6 07/22/20 16:00 97.8 79 18 93/49 (64) 96 Intake and Output 07/22/20 07/23/20 19:00 07:00 Intake Total 930 ml 711 ml Output Total 2200 ml 1430 ml Balance -1270 ml -719 ml Intake Oral 930 ml 711 ml Output Urine Total 1450 ml 760 ml Other 750 ml 670 ml # Voids 2 4 Laboratory Tests 07/23/20 05:20: White Blood Count 7.1, Red Blood Count 3.66L, Hemoglobin 11.5L, Hematocrit 34.3L , Mean Corpuscular Volume 94, Mean Corpuscular Hemoglobin 31.4H, Mean Corpuscular Hemoglobin Concent 33.5, Red Cell Distribution Width 11.3L, Platelet Count 159, Mean Platelet Volume 6.6, Neutrophils (%) (Auto) 82.3H, Lymphocytes (%) (Auto) 13.2L, Monocytes (%) (Auto) 4.0, Eosinophils (%) (Auto) 0.2, Basophils (%) (Auto) 0.3, Sodium Level 142, Potassium Level 4.1, Chloride Level 106, Carbon Dioxide Level 30, Anion Gap 6, Blood Urea Nitrogen 22H, Creatinine 1.1, Estimat Glomerular Filtration Rate 49.3, Glucose Level 85, Calcium Level 9.0, Phosphorus Level 3.5, Magnesium Level 1.9, Total Bilirubin 0.3, Aspartate Amino Transf (AST/SGOT) 15, Alanine Aminotransferase (ALT/SGPT) 17, Alkaline Phosphatase 58, Total Protein 5.1L, Albumin 2.8L, Globulin 2.3, Albumin/Globulin Ratio 1.2 Height (Feet): 5 Height (Inches): 4.00 Weight (Pounds): 135 General Appearance: alert EENT: normal ENT inspection Neck: supple Cardiovascular: normal rate Respiratory/Chest: decreased breath sounds Abdomen: normal bowel sounds, non tender, soft Extremities: non-tender Assessment/Plan Assessment/Plan: Malfunctioning Kock pouch with inability to intubate with resulting functional small-bowel obstruction ulcerative colitis s/p pouchoscopy abd pain on [place] and Flexoril consider adding gabapentin on TPN fu surg recs Adrian Morrison MD Jul 23, 2020 13:06
--- NOTE | 2020-07-23 13:55 | NUR ---
NURSE NOTES: Spoke with Maura in Pharmacy, regarding Flexeril and [place] administration, confirmed okay to give at the same time.
--- NOTE | 2020-07-23 14:15 | Cardiology Report ---
APPROVED REPORT EKG Measurement Heart [id number] <Conclusion> Normal sinus rhythm Nonspecific T wave abnormality Abnormal ECG
--- NOTE | 2020-07-23 14:56 | Diagnostic Imaging Report ---
Indication: Abdominal pain Technique: Supine view of the abdomen Comparison: 05/08/2020 Findings: Previously demonstrated skin lu are no longer evident. The bowel gas pattern is unremarkable. 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 A catheter is seen centrally within the ileostomy. Degenerative changes of the lumbar spine Impression: No acute process Postsurgical changes, as described
[2020-07-23 16:00] VITALS: BP 92/46
--- NOTE | 2020-07-23 19:32 | NUR ---
NURSE HAND-OFF: Important Events on Shift:Abdominal XR (portable) done, 60 ml ileo flush x1 this AM, Stool for CDiff sent to lab at 1100 Patient Status: stable Diet: BCIR low residue Outputs: Urine 725 ml Ileostomy: 190 ml Pending Orders: none Pending Results/Labs:CDiff Pending MD notification:none Latest Vital Signs: Temperature 98.0 , Pulse 70 , B/P 92 /46 , Respiratory Rate 18 , O2 SAT 95 , Room Air, O2 Flow Rate 6 . Vital Sign Comment: monitor BP (runs low, Dr. Meadows aware) Latest Henry Fall Score: 35 Fall Risk: Medium Risk Safety Measures: Call light Within Reach, Bed Alarm , Side Rails Side Rails x2, Bed position Low and Locked. Fall Precautions: Yellow Socks Door Sign Patient Fall Education Report given to Gino TRAMMELL. Addendum: 07/23/20 at 2018 by Zulema Potter RN Endorsed patient may need Vitamin C or Grape juice, noted ileostomy output slightly thick in tubing at end of shift.
--- NOTE | 2020-07-23 19:40 | NUR ---
NURSE NOTES: received patient and report from Zulema TRAMMELL. Patient alert and oriented x 4 with no acute s/s of distress and no c/o pain. Ileo site noted draining to bag by gravity. Plan of care discussed.
[2020-07-23 20:00] VITALS: BP 92/50
[2020-07-23] MEDS: Dyna-Hex 2% Top Sol 2oz TOPIC SCH (20:00)
[2020-07-23] MEDS: Atorvastatin 20mg tab ORAL SCH (21:05)
[2020-07-23] MEDS: TraZODone 100mg tab ORAL SCH (21:06)
[2020-07-23] MEDS: Ascorbic Acid 500mg tab ORAL PRN (21:07)
--- NOTE | 2020-07-23 21:30 | NUR ---
NURSE NOTES: pt given vitamin c along with scheduled meds due to thick drainage from BCIR ileo. will follow up.
[2020-07-24] VITALS: BP 97/84
[2020-07-24 04:00] VITALS: BP 93/48
--- NOTE | 2020-07-24 07:15 | NUR ---
NURSE NOTES: Report received from Gino RN, rounds made. Patient sleeping, awakens easily in semi-fowlers position in bed, calm. Respirations even/unlabored on RA. No distress noted, denies SOB, NV. RLQ BCIR, catheter in place, dressing CDI, to drainage bag, light brown output to gravity. No IV access. ILIR elevated/with heat compress in place (pinkness improved, skin remains intact). Patient reports abdominal pain 4/10, tolerable, will medicate with [place] PRN when patient requests. Call light in reach, bed in lowest position, will continue to monitor.
--- NOTE | 2020-07-24 07:24 | NUR ---
NURSE HAND-OFF: Important Events on Shift: NA Patient Status: stable Diet: BCIR low residue Pending Orders: NA Pending Results/Labs:NA Pending MD notification:NA Latest Vital Signs: Temperature 98.4 , Pulse 77 , B/P 93 /48 , Respiratory Rate 16 , O2 SAT 96 , Room Air, O2 Flow Rate 6 . Vital Sign Comment: stable throughout shift, blood pressure runs low but she trends this way. encouraged pt to drink more water and fluids to improve hydration status. Latest Henry Fall Score: 35 Fall Risk: Medium Risk Safety Measures: Call light Within Reach, Bed Alarm , Side Rails Side Rails x2, Bed position Low and Locked. Fall Precautions: Yellow Socks Door Sign Patient Fall Education Report given to VALERI Poole.
[2020-07-24 08:00] VITALS: BP 96/51
--- NOTE | 2020-07-24 09:56 | General Progress Note ---
Progress Note Progress Note AVSS Feeling better today. Ate 75% yesterday. No IVs currently Abdomen soft Urine 1075 Kock pouch ileo 590 Imp: Improved Plan: Trial of plugging Kock pouch catheter continuously, with patient to drain contents q3h am to hs and prn RN supervised Kock pouch management f/u labs in AM, continue strict I&O Lalo Meadows MD Jul 24, 2020 09:56
[2020-07-24] MEDS: Magnesium Oxide 400mg tab ORAL SCH ×3 (10:00→18:06)
[2020-07-24] MEDS: BuPROPion SR 100mg tab ORAL SCH ×2 (10:01→18:06)
[2020-07-24] MEDS: MYRBETRIQ 50 MG ORAL SCH (10:01)
[2020-07-24] MEDS: Meloxicam 15 MG TAB ORAL SCH (10:01)
[2020-07-24] MEDS: Cyclobenzaprine 10mg Tab ORAL SCH ×3 (10:02→18:06)
[2020-07-24] MEDS: Aspirin Baby 81mg ORAL SCH (10:02)
[2020-07-24] MEDS: Citalopram Hydrobromide 10mg Tab ORAL SCH (10:02)
[2020-07-24] MEDS: HYDROcodone/Acetamin 5/325 tab ORAL PRN ×3 (10:17→21:43)
--- NOTE | 2020-07-24 10:57 | NUR ---
CASE MANAGEMENT: REVIEW 07/24/2020 SI:ENTEROSTOMY MALFUNCTION VS: T 97.7 HR 76 RR 16 B/P 96/51 SATS 95% ON RA LABS: NO LABS TODAY IS:WELLBUTRIN PO BID LIPITOR PO QHS ASA PO QD MOBIC PO QD MED/SURG PLAN OF CARE: Trial of plugging Kock pouch catheter continuously, with patient to drain contents q3h am to hs and prn Continue strict I&O
[2020-07-24 12:00] VITALS: BP 95/49
[2020-07-24] MEDS: Simethicone 80mg tab ORAL PRN (13:28)
--- NOTE | 2020-07-24 13:55 | General Progress Note ---
Subjective ROS Limited/Unobtainable: No Allergies: Coded Allergies: ADHESIVE TAPE (Verified Adverse Reaction, Intermediate, Rash, 08/27/19) CLEAR TAPE Objective Last 24 Hour Vital Signs Date Time Temp Pulse Resp B/P (MAP) Pulse Ox O2 Delivery O2 Flow Rate FiO2 07/24/20 12:00 97.9 71 16 95/49 (64) 97 07/24/20 08:00 97.7 76 16 96/51 (66) 95 07/24/20 04:00 98.4 77 16 93/48 (63) 96 07/24/20 00:00 97.9 73 18 97/84 (88) 96 07/23/20 21:00 Room Air 07/23/20 20:00 98.3 75 16 92/50 (64) 96 07/23/20 16:00 98.0 70 18 92/46 (61) 95 Intake and Output 07/23/20 07/24/20 19:00 07:00 Intake Total 712 ml 450 ml Output Total 915 ml 750 ml Balance -203 ml -300 ml Intake Oral 592 ml 450 ml Other 120 ml Output Urine Total 725 ml 350 ml Other 190 ml 400 ml # Voids 3 Height (Feet): 5 Height (Inches): 4.00 Weight (Pounds): 135 General Appearance: no apparent distress EENT: normal ENT inspection Neck: supple Cardiovascular: normal rate Respiratory/Chest: decreased breath sounds Abdomen: normal bowel sounds, non tender, soft Extremities: non-tender Assessment/Plan Assessment/Plan: Malfunctioning Kock pouch with inability to intubate with resulting functional small-bowel obstruction ulcerative colitis s/p pouchoscopy abd pain on [place] and Flexoril consider adding gabapentin on TPN fu surg recs Adrian Morrison MD Jul 24, 2020 13:55
[2020-07-24 15:59] VITALS: BP 96/55
--- NOTE | 2020-07-24 18:20 | NUR ---
NURSE NOTES: Ileostomy bag emptied, bag discarded. Flushed ileostomy with 20 ml NS then plugged at 1030. At 1330, unplugged, in bathroom with canister beneath ileostomy catheter, while patient standing then sitting on toilet, only 10 ml out, flushed ileostomy with 20 ml NS then plugged. At 1630, repeated steps above, inital air and stool was released once plug was removed, 20 ml stool out, flushed ileostomy with 20 ml NS then plugged again as ordered. Patient denied changes in abdominal pain, abdomen remains soft, flat. Encouraged PO hydration, eating well and continuing to ambulate, patient verbalized understanding. Applied warm compress to LFA x3 this shift, remains pink, skin intact. Patient up ambulating in room, to bathroom and in halls, gait steady/slow, patient remains safe. Will endorse to next shift.
--- NOTE | 2020-07-24 19:18 | NUR ---
NURSE HAND-OFF: Important Events on Shift:Ileostomy plugged every 3 hours, then emptied, then flushed with 20 ml NS, then plugged again, Ambulated in halls Patient Status: stable Diet: BCIR Outputs: Urine: 850 ml Ileostomy: 220 ml Pending Orders: none Pending Results/Labs:CBC, CMP, MG, PHOS 07/25 Pending MD notification:none Latest Vital Signs: Temperature 98.2 , Pulse 70 , B/P 96 /55 , Respiratory Rate 16 , O2 SAT 96 , Room Air, O2 Flow Rate 6 . Vital Sign Comment: none Latest Henry Fall Score: 15 Fall Risk: Low Risk Safety Measures: Call light Within Reach, Bed Alarm , Side Rails Side Rails x2, Bed position Low and Locked. Fall Precautions: Yellow Socks Door Sign Patient Fall Education Report given to Gino TRAMMELL .
--- NOTE | 2020-07-24 19:30 | NUR ---
NURSE NOTES: Patient and report received from VALERI Poole. Patient alert and oriented x4 with no acute s/s of distress and no complaint of pain. Ileo site plugged and Dr. Rdz orders were clearly lined out to me by VALERI Poole. Plan of care discussed.
[2020-07-24 20:00] VITALS: BP 106/54
[2020-07-24] MEDS: Dyna-Hex 2% Top Sol 2oz TOPIC SCH (20:00)
[2020-07-24] MEDS: TraZODone 100mg tab ORAL SCH (21:30)
[2020-07-24] MEDS: Atorvastatin 20mg tab ORAL SCH (21:31)
[2020-07-25] VITALS: BP 100/47
[2020-07-25 04:00] VITALS: BP 120/59
[2020-07-25 06:25] LABS: HEMATOCRIT 34.7 % (37.0-47.0); HEMOGLOBIN 11.8 G/DL (12.0-16.0); MEAN CORPUSCULAR VOLUME 93 FL (80-99); PLATELET COUNT 172 K/UL (150-450); RED BLOOD COUNT 3.73 M/UL (4.20-5.40); RED CELL DISTRIBUTION WIDTH 11.2 % (11.6-14.8); WHITE BLOOD COUNT 3.3 K/UL (4.8-10.8)
[2020-07-25 06:49] LABS: ALBUMIN 2.8 G/DL (3.4-5.0); ALBUMIN/GLOBULIN RATIO 1.1 (1.0-2.7); BILIRUBIN,TOTAL 0.3 MG/DL (0.2-1.0); CALCIUM 9.2 MG/DL (8.5-10.1); CREATININE 1.2 MG/DL (0.55-1.30); PHOSPHORUS 4.3 MG/DL (2.5-4.9); POTASSIUM 4.1 MMOL/L (3.5-5.1)
--- NOTE | 2020-07-25 07:18 | NUR ---
NURSE NOTES: Report received from Gino RN, rounds made. Patient sleeping, awakens easily in low semi-fowlers position in bed, calm. Respirations even/unlabored on RA. No distress noted, denies SOB, NV. RLQ BCIR, catheter in place, plugged, dressing CDI. No IV access. ILIR elevated/with heat compress in place (pinkness unchanged, skin remains intact). Patient denies pain at this time. Call light in reach, bed in lowest position, will continue to monitor.
--- NOTE | 2020-07-25 07:34 | NUR ---
NURSE HAND-OFF: Important Events on Shift:NA Patient Status: stable Diet: BCIR low residue Pending Orders: NA Pending Results/Labs:NA Pending MD notification:NA Latest Vital Signs: Temperature 97.8 , Pulse 70 , B/P 120 /59 , Respiratory Rate 13 , O2 SAT 96 , Room Air, O2 Flow Rate 6 . Vital Sign Comment: stable throughout shift, bp trends low but pt asymptomatic Latest Henry Fall Score: 15 Fall Risk: Low Risk Safety Measures: Call light Within Reach, Bed Alarm , Side Rails Side Rails x2, Bed position Low and Locked. Fall Precautions: Yellow Socks Door Sign Patient Fall Education Report given to VALERI Poole.
[2020-07-25 08:00] VITALS: BP 96/52
--- NOTE | 2020-07-25 09:22 | General Progress Note ---
Progress Note Progress Note AVSS Feeling better and eating BCIR diet. Learning how to manage indwelling Kock pouch catheter plugging, irrigating, etc. Abdomen soft Urine 2049 Kock pouch ileo 580 labs stable Imp: Improving Plan: RN supervised Kock pouch catheter manipulations Lalo Meadows MD Jul 25, 2020 09:22
[2020-07-25] MEDS: BuPROPion SR 100mg tab ORAL SCH ×2 (09:40→18:07)
[2020-07-25] MEDS: Aspirin Baby 81mg ORAL SCH (09:40)
[2020-07-25] MEDS: Cyclobenzaprine 10mg Tab ORAL SCH ×3 (09:40→18:06)
[2020-07-25] MEDS: Citalopram Hydrobromide 10mg Tab ORAL SCH (09:40)
[2020-07-25] MEDS: HYDROcodone/Acetamin 5/325 tab ORAL PRN ×3 (09:41→22:04)
[2020-07-25] MEDS: Magnesium Oxide 400mg tab ORAL SCH ×3 (09:42→18:07)
[2020-07-25] MEDS: MYRBETRIQ 50 MG ORAL SCH (09:42)
[2020-07-25] MEDS: Meloxicam 15 MG TAB ORAL SCH (09:42)
[2020-07-25 12:00] VITALS: BP 89/49
[2020-07-25 16:00] VITALS: BP 88/48
[2020-07-25] MEDS: Simethicone 80mg tab ORAL PRN (16:50)
--- NOTE | 2020-07-25 18:11 | NUR ---
NURSE NOTES: Patient up ambulating around room and back/forth to bathroom with RN supervision. Continued teaching patient on plugging ileostomy for 3 hours then unplugging, emptying then flushing with 20 ml NS. Followed the above with RN assist x3 this shift, tolerated well. Ensure chocolate shakes provided x2, tolerated well. LFA pinkness, improving, applied warm compress x3 this shift. Will endorse to next shift. Addendum: 07/25/20 at 1935 by Zulema Potter RN LUE remains elevated while patient in bed.
--- NOTE | 2020-07-25 19:13 | NUR ---
NURSE HAND-OFF: Important Events on Shift: Plugged/emptied/flushed ileostomy as ordered, assisted patient with removing plug and flushing, had some difficulty doing it on her own due to positioning with the catheter. Started Ensure chocolate/BID Patient Status: stable Diet: BCIR Outputs: Urine: 750 ml Ileostomy: 295 ml Pending Orders: none Pending Results/Labs:none Pending MD notification:none Latest Vital Signs: Temperature 97.3 , Pulse 71 , B/P 88 /48 , Respiratory Rate 18 , O2 SAT 100 , Room Air, O2 Flow Rate 6 . Vital Sign Comment: monitor BP, Dr. Meadows aware of BPs low, encourage PO fluid intake, patient asymptomatic Latest Henry Fall Score: 15 Fall Risk: Low Risk Safety Measures: Call light Within Reach, Bed Alarm , Side Rails Side Rails x2, Bed position Low and Locked. Fall Precautions: Yellow Socks Door Sign Patient Fall Education Report given to Tyrell TRAMMELL.
--- NOTE | 2020-07-25 19:50 | NUR ---
NURSE NOTES: Received report from VALERI Poole. Patient in stable condition.
[2020-07-25 20:00] VITALS: BP 110/63
[2020-07-25] MEDS: Dyna-Hex 2% Top Sol 2oz TOPIC SCH (20:00)
[2020-07-25] MEDS: Atorvastatin 20mg tab ORAL SCH (21:52)
[2020-07-25] MEDS: TraZODone 100mg tab ORAL SCH (21:53)
[2020-07-26 04:00] VITALS: BP 90/47
--- NOTE | 2020-07-26 06:32 | NUR ---
NURSE HAND-OFF: Important Events on Shift: plugging ileo and flushing with 20 mL NS. Changed dressing around 530 am because tape was falling off, otherwise site is clean and flushing/draining well. Ileo output: 260 mL Urine output: 400 mL dark yellow urine Patient Status: stable Diet: BCIR diet w/ ensure BID Pending Orders: [] Pending Results/Labs:[] Pending MD notification:[] Latest Vital Signs: Temperature 97.7 , Pulse 71 , B/P 90 /47 , Respiratory Rate 18 , O2 SAT 100 , Room Air, O2 Flow Rate 6 . Vital Sign Comment: [] Latest Henry Fall Score: 15 Fall Risk: Low Risk Safety Measures: Call light Within Reach, Bed Alarm , Side Rails Side Rails x2, Bed position Low and Locked. Fall Precautions: Yellow Socks Door Sign Patient Fall Education Report given to [].
--- NOTE | 2020-07-26 07:08 | NUR ---
NURSE NOTES: Report received from Tyrell TRAMMELL, rounds made. Patient sleeping, in semi-fowlers position in bed. Respirations even/unlabored on RA. No distress noted. RLQ BCIR, catheter in place, plugged, dressing CDI. No IV access. Call light in reach, bed in lowest position, will continue to monitor.
--- NOTE | 2020-07-26 07:12 | NUR ---
NURSE NOTES: Report gave to Zulema TRAMMELL
[2020-07-26 08:00] VITALS: BP 112/59
[2020-07-26] MEDS: MYRBETRIQ 50 MG ORAL SCH (09:35)
[2020-07-26] MEDS: Meloxicam 15 MG TAB ORAL SCH (09:36)
[2020-07-26] MEDS: Aspirin Baby 81mg ORAL SCH (09:36)
[2020-07-26] MEDS: Magnesium Oxide 400mg tab ORAL SCH ×3 (09:36→17:30)
[2020-07-26] MEDS: Cyclobenzaprine 10mg Tab ORAL SCH ×3 (09:36→17:30)
[2020-07-26] MEDS: BuPROPion SR 100mg tab ORAL SCH ×2 (09:36→17:30)
[2020-07-26] MEDS: HYDROcodone/Acetamin 5/325 tab ORAL PRN ×3 (09:36→20:57)
[2020-07-26] MEDS: Citalopram Hydrobromide 10mg Tab ORAL SCH (09:36)
--- NOTE | 2020-07-26 10:34 | General Progress Note ---
Progress Note Progress Note AVSS Learning to intermittent drain Kock pouch with indwelling catheter, and flushing then plugging continuously Abdomen soft Urine 1200 Kock pouch ileo 555 Imp: Improving Plan: continue current teaching regimen suture catheter in place in AM, then plan discharge 24-48 hours f/u labs in AM Lalo Meadows MD Jul 26, 2020 10:34
[2020-07-26 12:00] VITALS: BP 114/57
[2020-07-26] MEDS: Simethicone 80mg tab ORAL PRN (14:43)
[2020-07-26 16:00] VITALS: BP 119/52
--- NOTE | 2020-07-26 19:31 | NUR ---
NURSE HAND-OFF: Important Events on Shift:Plugged ileostomy every 3 hours, unplugged, emptied, flushed 20 ml NS Patient Status: stable Diet: BCIR Outputs: Urine: 800 ml Ileostomy: 290 ml Pending Orders: none Pending Results/Labs:CBC CMP MG PHOS 07/27 Pending MD notification:none Latest Vital Signs: Temperature 97.9 , Pulse 75 , B/P 119 /52 , Respiratory Rate 18 , O2 SAT 96 , Room Air, O2 Flow Rate 6 . Vital Sign Comment: none Latest Henry Fall Score: 15 Fall Risk: Low Risk Safety Measures: Call light Within Reach, Bed Alarm , Side Rails Side Rails x2, Bed position Low and Locked. Fall Precautions: Yellow Socks Door Sign Patient Fall Education Report given to Tyrell TRAMMELL.
--- NOTE | 2020-07-26 19:50 | NUR ---
NURSE NOTES: Received report from Zulema TRAMMELL. Patient in stable condition.
[2020-07-26 20:00] VITALS: BP 113/67
[2020-07-26] MEDS: TraZODone 100mg tab ORAL SCH (20:46)
[2020-07-26] MEDS: Atorvastatin 20mg tab ORAL SCH (20:46)
[2020-07-27] VITALS: BP 118/63
[2020-07-27] MEDS: Simethicone 80mg tab ORAL PRN ×2 (03:38→21:13)
[2020-07-27 04:00] VITALS: BP 92/53
[2020-07-27 05:58] LABS: BASOPHILS % (AUTO) 0.4 % (0.0-2.0); EOSINOPHILS % (AUTO) 0.1 % (0.0-3.0); HEMATOCRIT 34.8 % (37.0-47.0); HEMOGLOBIN 11.8 G/DL (12.0-16.0); LYMPHOCYTES % (AUTO) 20.8 % (20.0-45.0); MEAN CORPUSCULAR VOLUME 93 FL (80-99); MONOCYTES % (AUTO) 9.3 % (1.0-10.0); NEUTROPHILS % (AUTO) 69.4 % (45.0-75.0); PLATELET COUNT 178 K/UL (150-450); RED BLOOD COUNT 3.74 M/UL (4.20-5.40); RED CELL DISTRIBUTION WIDTH 11.7 % (11.6-14.8); WHITE BLOOD COUNT 4.8 K/UL (4.8-10.8)
[2020-07-27 06:17] LABS: ALBUMIN 2.8 G/DL (3.4-5.0); ALBUMIN/GLOBULIN RATIO 0.9 (1.0-2.7); BILIRUBIN,TOTAL 0.3 MG/DL (0.2-1.0); CALCIUM 8.8 MG/DL (8.5-10.1); CREATININE 1.1 MG/DL (0.55-1.30); PHOSPHORUS 3.1 MG/DL (2.5-4.9); POTASSIUM 4.4 MMOL/L (3.5-5.1)
--- NOTE | 2020-07-27 06:25 | NUR ---
NURSE HAND-OFF: Important Events on Shift:During my shift, patient c/o pressure and gas in abd. Plug released x2 during my shift, patient reports relief after draining catheter. Given x1 norco at bedtime. Ileo : 270 urine 650 Patient Status: stable Diet:BCIR low residue diet Pending Orders: [] Pending Results/Labs:[] Pending MD notification:[] Latest Vital Signs: Temperature 97.8 , Pulse 81 , B/P 92 /53 , Respiratory Rate 20 , O2 SAT 97 , Room Air, O2 Flow Rate 6 . Vital Sign Comment: [] Latest Henry Fall Score: 15 Fall Risk: Low Risk Safety Measures: Call light Within Reach, Bed Alarm , Side Rails Side Rails x2, Bed position Low and Locked. Fall Precautions: Yellow Socks Door Sign Patient Fall Education Report given to [].
--- NOTE | 2020-07-27 07:39 | NUR ---
NURSE NOTES: Gave report to Hali Good RN
--- NOTE | 2020-07-27 07:49 | NUR ---
NURSE NOTES: Received report from Tyrell RN, Patient awake in bed. Breathing even and unlabored on RA. No acute distress noted. Denies any pain at this time. RLQ BCIR, catheter in place, plugged, dressing CDI. No IV access. Call light within reach, bed in lowest position, will continue to monitor.
[2020-07-27 08:00] VITALS: BP 109/60
[2020-07-27] MEDS: Aspirin Baby 81mg ORAL SCH (08:14)
[2020-07-27] MEDS: Cyclobenzaprine 10mg Tab ORAL SCH ×3 (08:14→17:07)
[2020-07-27] MEDS: Meloxicam 15 MG TAB ORAL SCH (08:14)
[2020-07-27] MEDS: BuPROPion SR 100mg tab ORAL SCH ×2 (08:14→17:07)
[2020-07-27] MEDS: MYRBETRIQ 50 MG ORAL SCH (08:15)
[2020-07-27] MEDS: Citalopram Hydrobromide 10mg Tab ORAL SCH (08:15)
[2020-07-27] MEDS: Magnesium Oxide 400mg tab ORAL SCH (08:15)
[2020-07-27] MEDS: HYDROcodone/Acetamin 5/325 tab ORAL PRN ×3 (08:18→22:53)
--- NOTE | 2020-07-27 09:32 | General Progress Note ---
Progress Note Progress Note AVSS Still with intermittent abdominal cramping Abdomen soft, flat Urine 1450 Kock pouch ileo 660 Eating well WBC 4800 Hgb 11.8 Platelets 178,000 BUN 21 Cr 1.1 Mg 1.5 Albumin 2.8 Imp: Abdominal pain - ? due to oral home med Magnesium oxide takes 400mg TID with max recommended dose BID Hypomagnesemia Plan: d/c oral Mag oxide Mg infusions - start peripheral heplock continue intermittent emptying of Kock Pouch with flushing catheter then plugging continuously suture catheter in place prior to discharge Lalo Meadows MD Jul 27, 2020 09:32
[2020-07-27 12:00] VITALS: BP 112/62
[2020-07-27 16:00] VITALS: BP 114/62
--- NOTE | 2020-07-27 17:41 | NUR ---
CASE MANAGEMENT: REVIEW 07/27/2020 SI:ENTEROSTOMY MALFUNCTION 98.2 79 18 109/60 97% ON RA MG 1.5 IS:IV MG X4 BAGS WELLBUTRIN PO BID LIPITOR PO QHS ASA PO QD MOBIC PO QD MED/SURG PLAN OF CARE: Trial of plugging Kock pouch catheter continuously, with patient to drain contents q3h am to hs and prn Continue strict I&O MG REPLACEMENT
--- NOTE | 2020-07-27 19:30 | NUR ---
NURSE NOTES: Received report from Florentino TRAMMELL. Rounding is done. Patient is a/o x4. Denied any pain at this time. No any distress noted at this time. Breathing is even and unlabored. IV site is intact and patent. Dressing on abdomen is c/d/i. Ileo cath is plugged in. Bed is on alarm, locked, and lowest position. Call light within reach. Will continue to monitor.
--- NOTE | 2020-07-27 19:38 | NUR ---
NURSE HAND-OFF: Important Events on Shift:low Magnesium Patient Status: stable Diet: BCIR Pending Orders: n Pending Results/Labs:n Pending MD notification:n Latest Vital Signs: Temperature 97.9 , Pulse 70 , B/P 114 /62 , Respiratory Rate 18 , O2 SAT 97 , Room Air, O2 Flow Rate 6 . Vital Sign Comment: stable Latest Henry Fall Score: 15 Fall Risk: Low Risk Safety Measures: Call light Within Reach, Bed Alarm , Side Rails Side Rails x2, Bed position Low and Locked. Fall Precautions: Yellow Socks Door Sign Patient Fall Education Report given to VALERI Burks .
[2020-07-27 20:00] VITALS: BP 102/63
[2020-07-27] MEDS: Dyna-Hex 2% Top Sol 2oz TOPIC SCH (20:00)
[2020-07-27] MEDS: TraZODone 100mg tab ORAL SCH ×3 (21:00→22:55)
[2020-07-27] MEDS: Atorvastatin 20mg tab ORAL SCH (21:07)
--- NOTE | 2020-07-27 23:46 | NUR ---
NURSE NOTES: Patient had vomiting, 300ml and Given zofran 4mg po. Will continue to monitor.
[2020-07-28] VITALS: BP 121/67
[2020-07-28 04:00] VITALS: BP 100/72
[2020-07-28] MEDS: Simethicone 80mg tab ORAL PRN ×2 (04:02→23:30)
[2020-07-28] MEDS: HYDROcodone/Acetamin 5/325 tab ORAL PRN ×2 (06:04→21:18)
--- NOTE | 2020-07-28 07:04 | NUR ---
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 Endorsed to Morning nurse and will continue to monitor.
--- NOTE | 2020-07-28 07:05 | NUR ---
NURSE HAND-OFF: Important Events on Shift:[cramping on abdomen] Patient Status: [stable] Diet: [BCIR low residue] Pending Orders: [n] Pending Results/Labs:[n] Pending MD notification:[n] Latest Vital Signs: Temperature 98.6 , Pulse 102 , B/P 100 /72 , Respiratory Rate 19 , O2 SAT 95 , Room Air, O2 Flow Rate 6 . Vital Sign Comment: [stable] Latest Henry Fall Score: 15 Fall Risk: Low Risk Safety Measures: Call light Within Reach, Bed Alarm , Side Rails Side Rails x2, Bed position Low and Locked. Fall Precautions: Yellow Socks Door Sign Patient Fall Education Report given to [Florentino RN].
--- NOTE | 2020-07-28 07:25 | NUR ---
NURSE NOTES: Received report from Vitaliy RN, Patient in bed. Breathing even and unlabored on RA. No acute distress noted. Denies any pain at this time. Ileo catheter in place, plugged, dressing CDI. IV intact and patent. Endorsed by night nurse that pt had 1 episode of vomiting last night. no c/o nausea at this time. Call light within reach, bed in lowest position, will continue to monitor.
[2020-07-28 08:00] VITALS: BP 90/58
[2020-07-28] MEDS: BuPROPion SR 100mg tab ORAL SCH ×2 (08:15→17:06)
[2020-07-28] MEDS: Cyclobenzaprine 10mg Tab ORAL SCH ×4 (08:15→17:07)
[2020-07-28] MEDS: Aspirin Baby 81mg ORAL SCH (08:15)
[2020-07-28] MEDS: Meloxicam 15 MG TAB ORAL SCH (08:15)
[2020-07-28] MEDS: MYRBETRIQ 50 MG ORAL SCH (08:15)
[2020-07-28] MEDS: Citalopram Hydrobromide 10mg Tab ORAL SCH (08:15)
--- NOTE | 2020-07-28 08:57 | General Progress Note ---
Progress Note Progress Note AVSs emesis overnight with abdominal cramps Abdomen mildly distended, soft Mg okay Imp: Emesis and distention Plan; Resume continuous drainage of Kock pouch ileo catheter to gravity drainage IV fluids Lalo Meadows MD Jul 28, 2020 08:56
[2020-07-28] MEDS: D5 1/4NS w/KCl 20mEq 1,000 ML IV SCH ×2 (10:00→23:30)
--- NOTE | 2020-07-28 11:23 | General Progress Note ---
Subjective ROS Limited/Unobtainable: Yes Allergies: Coded Allergies: ADHESIVE TAPE (Verified Adverse Reaction, Intermediate, Rash, 08/27/19) CLEAR TAPE Objective Last 24 Hour Vital Signs Date Time Temp Pulse Resp B/P (MAP) Pulse Ox O2 Delivery O2 Flow Rate FiO2 07/28/20 09:00 Room Air 07/28/20 08:00 98.1 90 19 90/58 (69) 95 07/28/20 04:00 98.6 102 19 100/72 (81) 95 07/28/20 00:00 98.8 99 19 121/67 (85) 96 07/27/20 21:00 Room Air 07/27/20 20:00 98.6 89 19 102/63 (76) 96 07/27/20 18:40 97.9 07/27/20 16:00 97.9 70 18 114/62 (79) 97 07/27/20 12:00 98.5 70 20 112/62 (79) 97 Intake and Output 07/27/20 07/28/20 19:00 07:00 Intake Total 1300 ml 480 ml Output Total 1380 ml 1240 ml Balance -80 ml -760 ml Intake Oral 1300 ml 480 ml Output Urine Total 1000 ml 1050 ml Other 380 ml 190 ml Laboratory Tests 07/28/20 04:00: Magnesium Level 1.9 Height (Feet): 5 Height (Inches): 4.00 Weight (Pounds): 135 General Appearance: no apparent distress EENT: normal ENT inspection Neck: supple Cardiovascular: normal rate Respiratory/Chest: decreased breath sounds Abdomen: hypoactive bowel sounds, distended Extremities: non-tender Assessment/Plan Assessment/Plan: Malfunctioning Kock pouch with inability to intubate with resulting functional small-bowel obstruction ulcerative colitis s/p pouchoscopy abd pain on [place] and Flexoril nausea today mildly distended abd on TPN fu surg recs Adrian Morrison MD Jul 28, 2020 11:23
[2020-07-28 12:00] VITALS: BP 121/71
--- NOTE | 2020-07-28 12:11 | NUR ---
RD ASSESSMENT & RECOMMENDATIONS SEE CARE ACTIVITY FOR COMPLETE ASSESSMENT DAILY ESTIMATED NEEDS: Needs based on General/ 58.9kg abw 25-30 kcals/kg 3860-1400 total kcals 1-1.2 (2.0g/kg w/ surgery) g protein/kg 59-70 (118g w/ surgery) g total protein 25-30 mL/kg 8062-8373 total fluid mLs NUTRITION DIAGNOSIS: Altered GI function R/T h/o malfunctioning ileo, as evidenced by pt unable to intubate, awaiting now s/p pouch endoscopy, on BCIR low residue diet, PPN now dc'ed. CURRENT DIET:BCIR LOW RESIDUE DIET PO DIET RECOMMENDATIONS: Diet per MD ADDITIONAL RECOMMENDATIONS: * Standing wt as able while ambulating for accurate CBW (04/28) standing wt of 135.8 lbs (07/16) Bed wt 130 lbs * Monitor PO tolerance and acceptance, need for additional snacks/HPN * Monitor lytes, replete as needed * Add Ensure Clear w/ meals, pt c/w N/V. (added 240 kcal, 8g pro)
[2020-07-28 16:00] VITALS: BP 111/52
--- NOTE | 2020-07-28 19:27 | NUR ---
NURSE HAND-OFF: Important Events on Shift:[Connected drainage bag] Patient Status: [stable] Diet: [BCIR] Pending Orders: [n] Pending Results/Labs:[n] Pending MD notification:[n] Latest Vital Signs: Temperature 98.4 , Pulse 82 , B/P 111 /52 , Respiratory Rate 20 , O2 SAT 95 , Room Air, O2 Flow Rate 6 . Vital Sign Comment: [stable] Latest Henry Fall Score: 15 Fall Risk: Low Risk Safety Measures: Call light Within Reach, Bed Alarm , Side Rails Side Rails x2, Bed position Low and Locked. Fall Precautions: Yellow Socks Door Sign Patient Fall Education Report given to [VALERI Santillan].
[2020-07-28 20:00] VITALS: BP 125/64
[2020-07-28] MEDS: Dyna-Hex 2% Top Sol 2oz TOPIC SCH (20:00)
[2020-07-28] MEDS: Atorvastatin 20mg tab ORAL SCH (21:17)
[2020-07-28] MEDS: TraZODone 100mg tab ORAL SCH (21:18)
[2020-07-29] VITALS: BP 137/63
[2020-07-29 04:00] VITALS: BP 135/72
[2020-07-29] MEDS: HYDROcodone/Acetamin 5/325 tab ORAL PRN ×2 (04:21→22:14)
[2020-07-29 05:27] LABS: BASOPHILS % (AUTO) 0.6 % (0.0-2.0); EOSINOPHILS % (AUTO) 0.2 % (0.0-3.0); HEMATOCRIT 37.5 % (37.0-47.0); HEMOGLOBIN 12.6 G/DL (12.0-16.0); LYMPHOCYTES % (AUTO) 12.1 % (20.0-45.0); MEAN CORPUSCULAR VOLUME 92 FL (80-99); MONOCYTES % (AUTO) 9.4 % (1.0-10.0); NEUTROPHILS % (AUTO) 77.8 % (45.0-75.0); PLATELET COUNT 199 K/UL (150-450); RED BLOOD COUNT 4.07 M/UL (4.20-5.40); RED CELL DISTRIBUTION WIDTH 11.4 % (11.6-14.8)
[2020-07-29 05:49] LABS: ALANINE AMINOTRANSFERASE 23 U/L (12-78); ALBUMIN/GLOBULIN RATIO 0.9 (1.0-2.7); ALKALINE PHOSPHATASE 88 U/L (46-116); ANION GAP 7 mmol/L (5-15); ASPARTATE AMINO TRANSFERASE 23 U/L (15-37); BILIRUBIN,TOTAL 0.4 MG/DL (0.2-1.0); BLOOD UREA NITROGEN 14 mg/dL (7-18); CARBON DIOXIDE 27 MMOL/L (21-32); CHLORIDE 105 MMOL/L (98-107); CREATININE 0.9 MG/DL (0.55-1.30); PHOSPHORUS 2.8 MG/DL (2.5-4.9); POTASSIUM 4.2 MMOL/L (3.5-5.1); SODIUM 139 MMOL/L (136-145)
--- NOTE | 2020-07-29 06:29 | NUR ---
NURSE HAND-OFF: Important Events on Shift: Increased ileo output, True ileo output: 1090 mL. Reported increased cramping but relieved with [place] throughout shift gave simethicone x1 Urine : 700 mL Patient Status: stable Diet: BCIR LOW RESIDUE Pending Orders: [] Pending Results/Labs:[] Pending MD notification:[] Latest Vital Signs: Temperature 99.1 , Pulse 100 , B/P 135 /72 , Respiratory Rate 20 , O2 SAT 96 , Room Air, O2 Flow Rate 6 . Vital Sign Comment: [] Latest Henry Fall Score: 15 Fall Risk: Low Risk Safety Measures: Call light Within Reach, Bed Alarm , Side Rails Side Rails x2, Bed position Low and Locked. Fall Precautions: Yellow Socks Door Sign Patient Fall Education Report given to Pamela TRAMMELL
--- NOTE | 2020-07-29 07:30 | NUR ---
NURSE NOTES: Patient is in bed awake and able to verbalize needs. Stable. Denies pain or SOB. Patient stated that she feels better after taking Lar[place] overnight. Ileo to drainage bag, will flush and monitor I&O. Patient is in bed in locked and lowest position with call light within reach. All needs met at this time. Will continue to monitor.
[2020-07-29 08:00] VITALS: BP 91/54
[2020-07-29] MEDS: BuPROPion SR 100mg tab ORAL SCH ×2 (08:54→17:23)
[2020-07-29] MEDS: MYRBETRIQ 50 MG ORAL SCH (08:54)
[2020-07-29] MEDS: Citalopram Hydrobromide 10mg Tab ORAL SCH (08:54)
[2020-07-29] MEDS: Cyclobenzaprine 10mg Tab ORAL SCH ×3 (08:55→17:23)
[2020-07-29] MEDS: Meloxicam 15 MG TAB ORAL SCH (08:55)
[2020-07-29] MEDS: Aspirin Baby 81mg ORAL SCH (08:55)
--- NOTE | 2020-07-29 09:00 | General Progress Note ---
Subjective ROS Limited/Unobtainable: Yes Allergies: Coded Allergies: ADHESIVE TAPE (Verified Adverse Reaction, Intermediate, Rash, 08/27/19) CLEAR TAPE Objective Last 24 Hour Vital Signs Date Time Temp Pulse Resp B/P (MAP) Pulse Ox O2 Delivery O2 Flow Rate FiO2 07/29/20 08:00 99.9 89 19 91/54 (66) 98 07/29/20 04:00 99.1 100 20 135/72 (93) 96 07/29/20 00:00 98.0 87 20 137/63 (87) 97 07/28/20 21:48 98.2 07/28/20 21:00 Room Air 07/28/20 20:00 98.2 87 20 125/64 (84) 96 07/28/20 16:00 98.4 82 20 111/52 (71) 95 07/28/20 12:00 98.1 81 20 121/71 (88) 95 07/28/20 09:00 Room Air Intake and Output 07/28/20 07/29/20 19:00 07:00 Intake Total 950 ml 1590 ml Output Total 1730 ml 3520 ml Balance -780 ml -1930 ml Intake Oral 950 ml 1430 ml Other 160 ml Output Urine Total 1000 ml 1700 ml Other 730 ml 1820 ml # Voids 3 Laboratory Tests 07/29/20 04:40: White Blood Count 5.0, Red Blood Count 4.07L, Hemoglobin 12.6, Hematocrit 37.5, Mean Corpuscular Volume 92, Mean Corpuscular Hemoglobin 31.0, Mean Corpuscular Hemoglobin Concent 33.6, Red Cell Distribution Width 11.4L, Platelet Count 199, Mean Platelet Volume 6.3L, Neutrophils (%) (Auto) 77.8H, Lymphocytes (%) (Auto) 12.1L, Monocytes (%) (Auto) 9.4, Eosinophils (%) (Auto) 0.2, Basophils (%) (Auto) 0.6, Sodium Level 139, Potassium Level 4.2, Chloride Level 105, Carbon Dioxide Level 27, Anion Gap 7, Blood Urea Nitrogen 14, Creatinine 0.9, Estimat Glomerular Filtration Rate > 60, Glucose Level 107H, Calcium Level 9.0, Phosphorus Level 2.8, Magnesium Level 1.7L, Total Bilirubin 0.4, Aspartate Amino Transf (AST/SGOT) 23, Alanine Aminotransferase (ALT/SGPT) 23, Alkaline Phosphatase 88, Total Protein 6.5, Albumin 3.0L, Globulin 3.5, Albumin/Globulin Ratio 0.9L Height (Feet): 5 Height (Inches): 4.00 Weight (Pounds): 135 General Appearance: alert EENT: normal ENT inspection Neck: supple Cardiovascular: normal rate Respiratory/Chest: decreased breath sounds Abdomen: normal bowel sounds, hypoactive bowel sounds, decreased bowel sounds Extremities: non-tender Assessment/Plan Assessment/Plan: Malfunctioning Kock pouch with inability to intubate with resulting functional small-bowel obstruction ulcerative colitis s/p pouchoscopy abd pain on [place] and Flexoril off TPN on diet right arm DVT fu surg recs Adrian Morrison MD Jul 29, 2020 09:00
[2020-07-29 12:00] VITALS: BP 88/48
[2020-07-29] MEDS: D5 1/4NS w/KCl 20mEq 1,000 ML IV SCH (12:11)
--- NOTE | 2020-07-29 13:04 | General Progress Note ---
Progress Note Progress Note AVSS No further emesis - having some intestinal cramping although eating better yesterday 50% of BCIR diet Abdomen soft, slight distention Urine 1700 Kock pouch ileo 1820 watery WBC 5000 Hgb 12.8 Platelets 199,000 BUN 14 Cr 0.9 Mg 1.7 albumin up 3.0 Imp: High volume Kock pouch ileo output ? etiology Plan; Stool for c.diff toxin Maintain continuous drainage of Kock pouch Mg infusions Lalo Meadows MD Jul 29, 2020 13:04
[2020-07-29 16:00] VITALS: BP 89/76
--- NOTE | 2020-07-29 16:28 | NUR ---
CASE MANAGEMENT: REVIEW 07/29/2020 SI:ENTEROSTOMY MALFUNCTION 99.9 89 19 91/54 98% ON RA MG 1.7 ALB 3.0 IS:IV MG SULFATE @100ML/HR X4 BAGS IV D5@ 75ML/HR WELLBUTRIN PO BID LIPITOR PO QHS ASA PO QD MOBIC PO QD \: 3E MED SURG UNIT PLAN OF CARE: COLLECT SWEETIE FOR C-DIFF INTAKE ~POOR 50% < LESS THAN
--- NOTE | 2020-07-29 19:00 | NUR ---
NURSE NOTES: UO:950cc arti urine output. True ileo: 300cc foul smelling liquid/chunky output.
--- NOTE | 2020-07-29 19:18 | NUR ---
NURSE NOTES: Received report from VALERI Santiago. Patient in stable condition.
--- NOTE | 2020-07-29 19:19 | NUR ---
NURSE HAND-OFF: Important Events on Shift: I&O, hydration Patient Status: stable Diet: bcir Pending Orders: n/a Pending Results/Labs:n/a Pending MD notification:n/a Latest Vital Signs: Temperature 98.3 , Pulse 74 , B/P 89 /76 , Respiratory Rate 21 , O2 SAT 97 , Room Air, O2 Flow Rate 6 . Vital Sign Comment: na Latest Henry Fall Score: 15 Fall Risk: Low Risk Safety Measures: Call light Within Reach, Side Rails x2, Bed position Low and Locked. Fall Precautions: Yellow Socks Door Sign Patient Fall Education Report given to Tyrell TRAMMELL.
[2020-07-29 20:00] VITALS: BP 124/89
[2020-07-29] MEDS: Atorvastatin 20mg tab ORAL SCH (20:18)
[2020-07-29] MEDS: TraZODone 100mg tab ORAL SCH (20:19)
[2020-07-29] MEDS: LORazepam 1mg tab ORAL PRN (20:30)
[2020-07-29] MEDS: Ascorbic Acid 500mg tab ORAL PRN (23:12)
[2020-07-30] VITALS: BP 128/72
[2020-07-30 04:00] VITALS: BP 126/68
[2020-07-30] MEDS: D5 1/4NS w/KCl 20mEq 1,000 ML IV SCH (05:54)
--- NOTE | 2020-07-30 06:39 | NUR ---
NURSE HAND-OFF: Important Events on Shift: Increased cramping. Cdiff resulted negative. Given x1 ativan and x1 zofran, also gave x1 norco for pain. Patient requested for vitamin c, also given last night true ileo output: 590 mL, foul thick browny output Urine: 950 mL. Patient Status: stable Diet: bcir low residue diet Pending Orders: [] Pending Results/Labs:[] Pending MD notification:[] Latest Vital Signs: Temperature 98.6 , Pulse 104 , B/P 126 /68 , Respiratory Rate 20 , O2 SAT 96 , Room Air, O2 Flow Rate 6 . Vital Sign Comment: [] Latest Henry Fall Score: 15 Fall Risk: Low Risk Safety Measures: Call light Within Reach, Bed Alarm , Side Rails Side Rails x2, Bed position Low and Locked. Fall Precautions: Yellow Socks Door Sign Patient Fall Education Report given to Pamela TRAMMELL
[2020-07-30 07:02] LABS: BASOPHILS % (AUTO) 0.6 % (0.0-2.0); EOSINOPHILS % (AUTO) 0.1 % (0.0-3.0); HEMATOCRIT 35.2 % (37.0-47.0); LYMPHOCYTES % (AUTO) 14.9 % (20.0-45.0); MEAN CORPUSCULAR VOLUME 92 FL (80-99); MONOCYTES % (AUTO) 11.6 % (1.0-10.0); NEUTROPHILS % (AUTO) 72.9 % (45.0-75.0); PLATELET COUNT 190 K/UL (150-450); RED CELL DISTRIBUTION WIDTH 11.6 % (11.6-14.8); WHITE BLOOD COUNT 4.7 K/UL (4.8-10.8)
[2020-07-30 07:13] LABS: ALBUMIN 2.9 G/DL (3.4-5.0); BILIRUBIN,TOTAL 0.4 MG/DL (0.2-1.0); CALCIUM 8.9 MG/DL (8.5-10.1); CREATININE 1.1 MG/DL (0.55-1.30); PHOSPHORUS 3.1 MG/DL (2.5-4.9); POTASSIUM 4.1 MMOL/L (3.5-5.1)
--- NOTE | 2020-07-30 07:23 | NUR ---
NURSE NOTES: Patient is in bed asleep. Breathing is even and unlabored. No visible signs of distress. All safety measures provided. Patient is in bed in locked and lowest position with call light within reach. Ileo to drainage bag. IV patent and running IVF as ordered. Will continue to monitor.
[2020-07-30 08:00] VITALS: BP 114/54
[2020-07-30] MEDS: Aspirin Baby 81mg ORAL SCH (08:08)
[2020-07-30] MEDS: Cyclobenzaprine 10mg Tab ORAL SCH ×3 (08:08→17:25)
[2020-07-30] MEDS: BuPROPion SR 100mg tab ORAL SCH ×2 (08:08→17:25)
[2020-07-30] MEDS: Meloxicam 15 MG TAB ORAL SCH (08:08)
[2020-07-30] MEDS: MYRBETRIQ 50 MG ORAL SCH (08:08)
[2020-07-30] MEDS: Citalopram Hydrobromide 10mg Tab ORAL SCH (08:08)
[2020-07-30 12:00] VITALS: BP 98/54
--- NOTE | 2020-07-30 12:30 | NUR ---
NURSE NOTES: pouch flushed with 20cc NS then plugged.
[2020-07-30] MEDS ORDERED: Dicyclomine HCl 10mg/5ml oral soln ORAL PRN ×2 (12:38→14:00)
--- NOTE | 2020-07-30 12:42 | General Progress Note ---
Progress Note Progress Note AVSS c/o intermittent abdominal cramping. Eating much better yesterday Abdomen soft, non-distended Urine 1900 Kock pouch ileo 890 labs all stable c. diff negative albumin 2.9 Imp: abdominal cramping Plan: Resume RN supervised plug Kock pouch ileo catheter and drain q3h am to hs and prn, flush before inserting plug Bentyl 3xdaily prn cramping d/c IV fluids d/c oral Mg Lalo Meadows MD Jul 30, 2020 12:42
--- NOTE | 2020-07-30 12:45 | NUR ---
NURSE NOTES: RN noted orders from Dr. Bowling to start plugging at 15:00, patient back to drainage bag, will plug at 15:00.
--- NOTE | 2020-07-30 13:53 | General Progress Note ---
Subjective ROS Limited/Unobtainable: Yes Allergies: Coded Allergies: ADHESIVE TAPE (Verified Adverse Reaction, Intermediate, Rash, 08/27/19) CLEAR TAPE Objective Last 24 Hour Vital Signs Date Time Temp Pulse Resp B/P (MAP) Pulse Ox O2 Delivery O2 Flow Rate FiO2 07/30/20 12:00 98.3 73 18 98/54 (69) 95 07/30/20 08:42 Room Air 07/30/20 08:00 97.4 85 18 114/54 (74) 98 07/30/20 04:00 98.6 104 20 126/68 (87) 96 07/30/20 00:00 98.2 81 20 128/72 (90) 99 07/29/20 22:44 97.3 07/29/20 21:00 Room Air 07/29/20 21:00 89 20 124/81 99 07/29/20 20:30 89 20 124/81 99 07/29/20 20:00 97.3 89 20 124/89 (101) 99 07/29/20 16:00 98.3 74 21 89/76 (80) 97 Intake and Output 07/29/20 07/30/20 19:00 07:00 Intake Total 240 ml 760 ml Output Total 1250 ml 1540 ml Balance -1010 ml -780 ml Intake Oral 240 ml 600 ml Other 160 ml Output Urine Total 950 ml 950 ml Other 300 ml 590 ml # Voids 3 Laboratory Tests 07/30/20 05:00: White Blood Count 4.7L, Red Blood Count 3.80L, Hemoglobin 12.0, Hematocrit 35.2L , Mean Corpuscular Volume 92, Mean Corpuscular Hemoglobin 31.7H, Mean Corpuscular Hemoglobin Concent 34.3, Red Cell Distribution Width 11.6, Platelet Count 190, Mean Platelet Volume 6.3L, Neutrophils (%) (Auto) 72.9, Lymphocytes (%) (Auto) 14.9L, Monocytes (%) (Auto) 11.6H, Eosinophils (%) (Auto) 0.1, Basophils (%) (Auto) 0.6, Sodium Level 138, Potassium Level 4.1, Chloride Level 106, Carbon Dioxide Level 27, Anion Gap 5, Blood Urea Nitrogen 11, Creatinine 1.1, Estimat Glomerular Filtration Rate 49.3, Glucose Level 112H, Calcium Level 8.9, Phosphorus Level 3.1, Magnesium Level 2.0, Total Bilirubin 0.4, Aspartate Amino Transf (AST/SGOT) 31, Alanine Aminotransferase (ALT/SGPT) 28, Alkaline Phosphatase 100, Total Protein 5.8L, Albumin 2.9L, Globulin 2.9, Albumin/Globulin Ratio 1.0 Height (Feet): 5 Height (Inches): 4.00 Weight (Pounds): 135 General Appearance: alert EENT: normal ENT inspection Neck: supple Cardiovascular: normal rate Respiratory/Chest: lungs clear Abdomen: hypoactive bowel sounds, tender Extremities: non-tender Assessment/Plan Assessment/Plan: Malfunctioning Kock pouch with inability to intubate with resulting functional small-bowel obstruction ulcerative colitis s/p pouchoscopy abd pain on [place] and Flexoril off TPN on diet right arm DVT add bentyl fu surg recs Adrian Morrison MD Jul 30, 2020 13:53
--- NOTE | 2020-07-30 15:00 | NUR ---
NURSE NOTES: Ileo flushed with 20cc NS and plugged as ordered.
[2020-07-30 16:00] VITALS: BP 96/60
[2020-07-30] MEDS: HYDROcodone/Acetamin 5/325 tab ORAL PRN (18:39)
--- NOTE | 2020-07-30 18:42 | NUR ---
NURSE NOTES: true ileo: 270cc brown output. Plugged x2. UO: 700cc arti urine output.
--- NOTE | 2020-07-30 19:43 | NUR ---
NURSE HAND-OFF: Important Events on Shift:i&o, pain management Patient Status: stable Diet: bcir Pending Orders: n/a Pending Results/Labs:n/a Pending MD notification:n/a Latest Vital Signs: Temperature 97.9 , Pulse 63 , B/P 96 /60 , Respiratory Rate 18 , O2 SAT 95 , Room Air, O2 Flow Rate 6 . Vital Sign Comment: n/a Latest Henry Fall Score: 15 Fall Risk: Low Risk Safety Measures: Call light Within Reach, Side Rails x2, Bed position Low and Locked. Fall Precautions: Yellow Socks Door Sign Patient Fall Education Report given to Sanju TRAMMELL.
--- NOTE | 2020-07-30 19:44 | NUR ---
NURSE NOTES: Received pt awake, A&Ox4 and verbal. pt has no sob, fever, cough and pain. iv is intact and asymptomatic. pt is on BCIR lower resi diet. Bed is in the lowest position, locked and call light within reach. We will keep monitoring the pt.
[2020-07-30 20:00] VITALS: BP 93/60
[2020-07-30] MEDS: Simethicone 80mg tab ORAL PRN (20:09)
[2020-07-30] MEDS: TraZODone 100mg tab ORAL SCH ×2 (20:09→21:58)
[2020-07-30] MEDS: Atorvastatin 20mg tab ORAL SCH (20:09)
[2020-07-31] VITALS: BP 98/65
[2020-07-31] MEDS: LORazepam 1mg tab ORAL PRN ×2 (00:36→21:01)
[2020-07-31] MEDS: Simethicone 80mg tab ORAL PRN ×2 (01:21→17:00)
[2020-07-31] MEDS: HYDROcodone/Acetamin 5/325 tab ORAL PRN ×2 (03:21→22:49)
[2020-07-31 04:00] VITALS: BP 116/64
--- NOTE | 2020-07-31 07:32 | NUR ---
HAND-OFF: Report given to VALERI Draper.
--- NOTE | 2020-07-31 07:35 | NUR ---
NURSE NOTES: Patient lying in bed awake. No complain of pain or distress at this time. Surgical dressing and IV dressing intact and dry. Bed lowest position. Call light within reach. Will continue to monitor.
[2020-07-31 08:00] VITALS: BP 105/61
[2020-07-31] MEDS ORDERED: Lactulose 20gm/30ml UDC ORAL SCH (08:25)
--- NOTE | 2020-07-31 08:34 | General Progress Note ---
Progress Note Progress Note AVSS Has had cramping, and no Kock pouch ileo output overnight. Ate 70% of diet yesterday. Abdomen distended Kock pouch catheter flushed and then I aspirated 450cc thick effluent. Catheter in good position and patient now feeling better Imp: Functional SBO with no Kock pouch output - resolved with aspiration Plan; d/c Bentyl Kock pouch catheter to medium intermittent suction Vitamin C and grape juice to thin effluent IV fluids, hold breakfast until cramping fully resolved Lalo Meadows MD Jul 31, 2020 08:34
[2020-07-31] MEDS: BuPROPion SR 100mg tab ORAL SCH ×2 (09:44→17:42)
[2020-07-31] MEDS: Meloxicam 15 MG TAB ORAL SCH (09:44)
[2020-07-31] MEDS: D5 1/4NS w/KCl 20mEq 1,000 ML IV SCH ×2 (09:44→21:09)
[2020-07-31] MEDS: Aspirin Baby 81mg ORAL SCH (09:45)
[2020-07-31] MEDS: Citalopram Hydrobromide 10mg Tab ORAL SCH (09:45)
[2020-07-31] MEDS: Cyclobenzaprine 10mg Tab ORAL SCH ×3 (09:45→17:42)
[2020-07-31] MEDS: MYRBETRIQ 50 MG ORAL SCH (09:45)
--- NOTE | 2020-07-31 09:54 | General Progress Note ---
Subjective ROS Limited/Unobtainable: Yes Allergies: Coded Allergies: ADHESIVE TAPE (Verified Adverse Reaction, Intermediate, Rash, 08/27/19) CLEAR TAPE Objective Last 24 Hour Vital Signs Date Time Temp Pulse Resp B/P (MAP) Pulse Ox O2 Delivery O2 Flow Rate FiO2 07/31/20 08:00 97.8 86 16 105/61 (76) 95 07/31/20 04:00 98.6 91 18 116/64 (81) 96 07/31/20 01:06 78 18 97/70 96 07/31/20 00:36 83 18 98/65 96 07/31/20 00:00 98.7 83 18 98/65 (76) 96 07/30/20 20:48 Room Air 07/30/20 20:00 98.8 78 18 93/60 (71) 100 07/30/20 16:00 97.9 63 18 96/60 (72) 95 07/30/20 12:00 98.3 73 18 98/54 (69) 95 Intake and Output 07/30/20 07/31/20 19:00 07:00 Intake Total 480 ml 250 ml Output Total 970 ml 650 ml Balance -490 ml -400 ml Intake Oral 480 ml 250 ml Output Urine Total 700 ml 400 ml Other 270 ml 250 ml Height (Feet): 5 Height (Inches): 4.00 Weight (Pounds): 135 General Appearance: no apparent distress EENT: normal ENT inspection Neck: supple Cardiovascular: normal rate Respiratory/Chest: decreased breath sounds Abdomen: hypoactive bowel sounds, distended, tender Extremities: non-tender Assessment/Plan Assessment/Plan: Malfunctioning Kock pouch with inability to intubate with resulting functional small-bowel obstruction ulcerative colitis s/p pouchoscopy abd pain on [place] and Flexoril off TPN on diet right arm DVT fu surg recs Adrian Morrison MD Jul 31, 2020 09:54
[2020-07-31 12:00] VITALS: BP 94/72
[2020-07-31 16:00] VITALS: BP 98/67
--- NOTE | 2020-07-31 18:02 | NUR ---
NURSE NOTES: Spoke to regarding patient and new diet order received. Order read back and carried out.
--- NOTE | 2020-07-31 19:30 | NUR ---
NURSE HAND-OFF: Important Events on Shift: Ileostomy to wall suction, Diet changed to Clear liquid Patient Status: Stable Diet: Clear liquid Pending Orders: N/A Pending Results/Labs: CBC, CMP, Mg, Phos on 08/01/20 Pending MD notification: N/A Latest Vital Signs: Temperature 98.7 , Pulse 74 , B/P 98 /67 , Respiratory Rate 16 , O2 SAT 97 , Room Air, O2 Flow Rate 6 . Vital Sign Comment: Stable Latest Henry Fall Score: 35 Fall Risk: Medium Risk Safety Measures: Call light Within Reach, Bed Alarm , Side Rails Side Rails x2, Bed position Low and Locked. Fall Precautions: Yellow Socks Door Sign Patient Fall Education Report given to Justin TRAMMELL. Patient in stable condition.
--- NOTE | 2020-07-31 19:49 | NUR ---
NURSE NOTES: Patient in bed, awake, alert and verbally responsive. Able to make needs known. Respiration is even and unlabored. Iv site noted, iv fluid is infusing as ordered. Kept clean and comfortable. bed in low and locked position. no complaint of pain or discomfort at the moment. Ileo site, clean, no s/s of infection noted, on intermittent suction. Abdomen is soft and non distended. Skin is warm and dry to touch. Ambulatory. Call light is at bedside. Will continue plan of care.
[2020-07-31 20:00] VITALS: BP 120/71
[2020-07-31] MEDS: Atorvastatin 20mg tab ORAL SCH (21:01)
[2020-07-31] MEDS: Ascorbic Acid 500mg tab ORAL PRN (21:01)
[2020-07-31] MEDS: TraZODone 100mg tab ORAL SCH (21:56)
--- NOTE | 2020-07-31 22:51 | NUR ---
NURSE NOTES: Complained of abdominal pain, given PRN pain mediation as ordered. Will reassess. Call light is at bedside. Will continue plan of care.
[2020-08-01] VITALS: BP 95/53
--- NOTE | 2020-08-01 00:30 | NUR ---
NURSE NOTES: Ileo flushed, at medium intermittent suction. call light is at bedside. Will continue plan of care.
[2020-08-01] MEDS: HYDROcodone/Acetamin 5/325 tab ORAL PRN ×3 (02:56→23:28)
[2020-08-01 03:03] VITALS: BP 109/54
--- NOTE | 2020-08-01 03:04 | NUR ---
NURSE NOTES: Patient complained of abdominal pain, given PRn pain medication PO as ordered. Ileo flushed and put back on intermittent suction. Call light is at bedside. Will reassess patient.
[2020-08-01] MEDS: D5 1/4NS w/KCl 20mEq 1,000 ML IV SCH ×2 (05:09→14:51)
[2020-08-01 05:58] LABS: BASOPHILS % (AUTO) 0.4 % (0.0-2.0); EOSINOPHILS % (AUTO) 0.2 % (0.0-3.0); HEMATOCRIT 36.3 % (37.0-47.0); HEMOGLOBIN 12.5 G/DL (12.0-16.0); LYMPHOCYTES % (AUTO) 24.4 % (20.0-45.0); MEAN CORPUSCULAR VOLUME 91 FL (80-99); MONOCYTES % (AUTO) 10.1 % (1.0-10.0); PLATELET COUNT 200 K/UL (150-450); RED BLOOD COUNT 3.99 M/UL (4.20-5.40); RED CELL DISTRIBUTION WIDTH 11.2 % (11.6-14.8); WHITE BLOOD COUNT 4.7 K/UL (4.8-10.8)
[2020-08-01 06:06] LABS: ALBUMIN/GLOBULIN RATIO 0.9 (1.0-2.7); BILIRUBIN,TOTAL 0.4 MG/DL (0.2-1.0); CREATININE 1.1 MG/DL (0.55-1.30); PHOSPHORUS 3.7 MG/DL (2.5-4.9); POTASSIUM 4.4 MMOL/L (3.5-5.1)
--- NOTE | 2020-08-01 07:00 | NUR ---
NURSE NOTES: Patient complained of pain given, PRn pain medication as ordered. Call light is at bedside. Will reassess.
--- NOTE | 2020-08-01 07:13 | NUR ---
NURSE HAND-OFF: Important Events on Shift:Pain management Patient Status: Diet: clear liquid Pending Orders: Pending Results/Labs:CBC, BMP Pending MD notification: Latest Vital Signs: Temperature 97.8 , Pulse 86 , B/P 109 /54 , Respiratory Rate 20 , O2 SAT 94 , Room Air, O2 Flow Rate 6 . Vital Sign Comment: WNL Latest Henry Fall Score: 35 Fall Risk: Medium Risk Safety Measures: Call light Within Reach, Bed Alarm , Side Rails Side Rails x2, Bed position Low and Locked. Fall Precautions: Yellow Socks Door Sign Patient Fall Education Report given to VALERI Good.
--- NOTE | 2020-08-01 07:30 | NUR ---
NURSE NOTES: Patient lying in bed awake. Complain of pain 2/10 on abdominal area. Surgical dressing and IV dressing intact and dry. Ileostomy catheter connected to wall suction and draining well. Bed lowest position. Call light within reach. Will continue to monitor.
[2020-08-01 08:00] VITALS: BP 111/55
--- NOTE | 2020-08-01 08:32 | General Progress Note ---
Subjective ROS Limited/Unobtainable: Yes Allergies: Coded Allergies: ADHESIVE TAPE (Verified Adverse Reaction, Intermediate, Rash, 08/27/19) CLEAR TAPE Objective Last 24 Hour Vital Signs Date Time Temp Pulse Resp B/P (MAP) Pulse Ox O2 Delivery O2 Flow Rate FiO2 08/01/20 03:03 97.8 86 20 109/54 (72) 94 08/01/20 00:00 98.5 67 16 95/53 (67) 95 07/31/20 21:31 84 16 120/71 95 07/31/20 21:01 84 16 120/71 95 07/31/20 21:00 Room Air 07/31/20 20:00 98.3 84 16 120/71 (87) 95 07/31/20 16:00 98.7 74 16 98/67 (77) 97 07/31/20 12:00 98.4 81 18 94/72 (79) 95 07/31/20 09:00 Room Air Intake and Output 07/31/20 08/01/20 19:00 07:00 Intake Total 337 ml 1691 ml Output Total 1800 ml 1720 ml Balance -1463 ml -29 ml Intake Oral 237 ml 811 ml IV Total 100 ml 800 ml Other 80 ml Output Urine Total 700 ml 800 ml Other 1100 ml 920 ml Laboratory Tests 08/01/20 04:55: White Blood Count 4.7L, Red Blood Count 3.99L, Hemoglobin 12.5, Hematocrit 36.3L , Mean Corpuscular Volume 91, Mean Corpuscular Hemoglobin 31.3H, Mean Corpuscular Hemoglobin Concent 34.4, Red Cell Distribution Width 11.2L, Platelet Count 200, Mean Platelet Volume 6.1L, Neutrophils (%) (Auto) 65.0, Lymphocytes (%) (Auto) 24.4, Monocytes (%) (Auto) 10.1H, Eosinophils (%) (Auto) 0.2, Basophils (%) (Auto) 0.4, Sodium Level 138, Potassium Level 4.4, Chloride Level 104, Carbon Dioxide Level 28, Anion Gap 6, Blood Urea Nitrogen 11, Creatinine 1.1, Estimat Glomerular Filtration Rate 49.3, Glucose Level 108H, Calcium Level 9.0, Phosphorus Level 3.7, Magnesium Level 1.4L, Total Bilirubin 0.4, Aspartate Amino Transf (AST/SGOT) 19, Alanine Aminotransferase (ALT/SGPT) 26, Alkaline Phosphatase 108, Total Protein 6.5, Albumin 3.0L, Globulin 3.5, Albumin/Globulin Ratio 0.9L Height (Feet): 5 Height (Inches): 4.00 Weight (Pounds): 135 General Appearance: no apparent distress EENT: normal ENT inspection Neck: supple Cardiovascular: normal rate Respiratory/Chest: decreased breath sounds Abdomen: normal bowel sounds, non tender, soft Extremities: non-tender Assessment/Plan Assessment/Plan: Malfunctioning Kock pouch with inability to intubate with resulting functional small-bowel obstruction ulcerative colitis s/p pouchoscopy abd pain on [place] and Flexoril off TPN on diet right arm DVT feeling better today fu surg recs Adrian Morrison MD Aug 01, 2020 08:32
[2020-08-01] MEDS: Cyclobenzaprine 10mg Tab ORAL SCH ×3 (09:08→18:01)
[2020-08-01] MEDS: Aspirin Baby 81mg ORAL SCH (09:08)
[2020-08-01] MEDS: MYRBETRIQ 50 MG ORAL SCH (09:08)
[2020-08-01] MEDS: Citalopram Hydrobromide 10mg Tab ORAL SCH (09:08)
[2020-08-01] MEDS: BuPROPion SR 100mg tab ORAL SCH ×2 (09:08→18:02)
[2020-08-01] MEDS: Meloxicam 15 MG TAB ORAL SCH (09:08)
[2020-08-01] MEDS ORDERED: Omnipaque-300 100ml vial INJ PRN (09:15)
--- NOTE | 2020-08-01 09:26 | General Progress Note ---
Progress Note Progress Note AVSS Continued mid-abdominal pain and above stoma, despite Kock pouch ileo output 2020cc on med intermittent suction since yesterday AM. Not eating at all but took some po fluids Abdomen soft, mild peristomal swelling and ecchymosis above stoma Urine 1500 Kock pouch ileo 2020 labs all stable except Mg 1.4 albumin up 3.0 Imp: Abdominal pain despite continuous drainage of Kock pouch Plan; STAT CT abd+pelvis with contrast Mg infusions continue NPO, IV fluids Lalo Meadows MD Aug 01, 2020 09:25
--- NOTE | 2020-08-01 11:25 | NUR ---
NURSE NOTES: Patient off unit for procedure in stable condition.
--- NOTE | 2020-08-01 11:49 | NUR ---
NURSE NOTES: Patient came back from procedure in stable condition. Will continue to monitor.
[2020-08-01 12:00] VITALS: BP 92/47
--- NOTE | 2020-08-01 12:36 | Diagnostic Imaging Report ---
EXAM: CT Abdomen and Pelvis With Intravenous Contrast CLINICAL HISTORY: ABD PAIN TECHNIQUE: Axial computed tomography images of the abdomen and pelvis with intravenous contrast. CTDI is 4.9 mGy and DLP is 247.8 mGy-cm. One or more of the following dose reduction techniques were used: automated exposure control, adjustment of the mA and/or kV according to patient size, use of iterative reconstruction technique. COMPARISON: CT abdomen/pelvis on 05/05/2020 FINDINGS: Lung bases: Unremarkable. No mass. No consolidation. ABDOMEN: Liver: Unremarkable. No mass. Gallbladder and bile ducts: Mild distention of the gallbladder and mild dilatation of the bile ducts. No cholelithiasis or choledocholithiasis identified on this exam. Further evaluation could be performed with ultrasound if clinically indicated. Pancreas: Unremarkable. No mass. No ductal dilation. Spleen: Unremarkable. No splenomegaly. Adrenals: Nonspecific mild thickening of the left adrenal gland. Kidneys and ureters: Mildly prominent extrarenal pelvises. No obstructing identified. Stomach and bowel: Postsurgical changes of the bowel with prior colectomy. Catheter/tube again noted within the pouch containing fecal material in the pelvis. Mild wall thickening of this pouch could represent infectious/inflammatory change. Dilated fluid and gas-filled small bowel loops are nonspecific. Possible partial obstruction in the right lower quadrant near the anastomoses. PELVIS: Appendix: See above. Bladder: Underdistended bladder limits evaluation. Reproductive: Unremarkable as visualized. ABDOMEN and PELVIS: Intraperitoneal space: Unremarkable. No free air. No significant fluid collection. Bones/joints: Degenerative changes of the spine. Mild retrolisthesis of L1 on L2. Probable hemangioma in the T12 vertebral body. No acute fracture. No dislocation. Soft tissues: Postsurgical changes of the midline anterior abdominal wall. Vasculature: Unremarkable. No abdominal aortic aneurysm. Lymph nodes: Nonspecific mildly prominent mesenteric and retroperitoneal lymph nodes. Tubes, lines and devices: Soft tissue density along the catheter tract in the right lower anterior abdominal wall may be related to granulation tissue, but superimposed infection is not excluded. IMPRESSION: 1. Mild distention of the gallbladder and mild dilatation of the bile ducts. No cholelithiasis or choledocholithiasis identified on this exam. Further evaluation could be performed with ultrasound if clinically indicated. 2. Postsurgical changes of the bowel with prior colectomy. Catheter/tube again noted within the pouch containing fecal material in the pelvis. Mild wall thickening of this pouch could represent infectious/inflammatory change. 3. Soft tissue density along the catheter tract in the right lower anterior abdominal wall may be related to granulation tissue, but superimposed infection is not excluded. 4. Dilated fluid and gas-filled small bowel loops are nonspecific. Possible partial obstruction in the right lower quadrant near the anastomoses.
--- NOTE | 2020-08-01 14:44 | NUR ---
NURSE NOTES: Spoke to regarding CT abd pelv result and new Cipro and Flagyl order received. Order read back and carried out.
[2020-08-01] MEDS ORDERED: metroNIDAZOLE 250mg tab ORAL SCH (14:46)
[2020-08-01] MEDS ORDERED: Ciprofloxacin 500mg tab ORAL SCH (14:46)
[2020-08-01 16:00] VITALS: BP 112/67
--- NOTE | 2020-08-01 16:43 | NUR ---
PT Note PT angélica completed, treatment initiated. Patient c/o feeling light-headed during gait training; has LE muscle weakness. Patient can benefit from PT services to increase her muscle strength and balance to improve her safety in mobility and gait. Addendum: 08/01/20 at 1644 by BRAVO LEE PT Amended: Links added.
--- NOTE | 2020-08-01 17:30 | NUR ---
NURSE NOTES: Patient ambulated with RN assist. No complain of dizziness. Patient tolerated activity well. Will continue to monitor.
--- NOTE | 2020-08-01 19:00 | NUR ---
NURSE NOTES: Small Ileostomy output noted. Repositioned Ileostomy catheter. Extra flush given and aspirated catheter. True Ileostomy output 180 ml. Patient stated feel much better. Notified regarding Ileostomy output and monitor for now. Order noted and carried out.
--- NOTE | 2020-08-01 19:30 | NUR ---
NURSE HAND-OFF: Important Events on Shift: CT abd Pelv done Patient Status: Stable Diet: Clear liquid Pending Orders: N/A Pending Results/Labs: CBC, BMP, Mg on 08/02/10 Pending MD notification: N/A Latest Vital Signs: Temperature 98.2 , Pulse 90 , B/P 112 /67 , Respiratory Rate 18 , O2 SAT 96 , Room Air, O2 Flow Rate 6 . Vital Sign Comment: Stable Latest Ehnry Fall Score: 35 Fall Risk: Medium Risk Safety Measures: Call light Within Reach, Bed Alarm , Side Rails Side Rails x2, Bed position Low and Locked. Fall Precautions: Yellow Socks Door Sign Patient Fall Education Report given to Alisia TRAMMELL. Patient in stable condition.
--- NOTE | 2020-08-01 19:31 | NUR ---
NURSE NOTES: Received report from VALERI Carpenter. Rounds done, patient alert and oriented. Ileo intact, patent, to medium intermittent suction. Ileo dressing intact. IV in LFA patent and intact. Bilat SCD on. Patient denies discomfort at this time. Bed in low position, locked, side rails up x 2, call light within reach. Instructed to call as needed to get OOB. Patient verbalizes understanding. Will continue to monitor.
[2020-08-01 20:00] VITALS: BP 105/61
[2020-08-01] MEDS: Ciprofloxacin 500mg tab ORAL SCH (20:34)
[2020-08-01] MEDS: Atorvastatin 20mg tab ORAL SCH (20:34)
[2020-08-01] MEDS: TraZODone 100mg tab ORAL SCH ×2 (20:34→21:48)
[2020-08-01] MEDS: Simethicone 80mg tab ORAL PRN (21:56)
[2020-08-01] MEDS: metroNIDAZOLE 250mg tab ORAL SCH (23:22)
[2020-08-01] MEDS: Ascorbic Acid 500mg tab ORAL PRN (23:22)
[2020-08-02] VITALS: BP 90/59
[2020-08-02] MEDS: D5 1/4NS w/KCl 20mEq 1,000 ML IV SCH ×3 (02:00→23:00)
[2020-08-02 05:50] LABS: BASOPHILS % (AUTO) 0.5 % (0.0-2.0); EOSINOPHILS % (AUTO) 0.3 % (0.0-3.0); HEMATOCRIT 36.3 % (37.0-47.0); HEMOGLOBIN 12.5 G/DL (12.0-16.0); LYMPHOCYTES % (AUTO) 16.5 % (20.0-45.0); MEAN CORPUSCULAR VOLUME 91 FL (80-99); MONOCYTES % (AUTO) 8.6 % (1.0-10.0); NEUTROPHILS % (AUTO) 74.2 % (45.0-75.0); PLATELET COUNT 216 K/UL (150-450); RED BLOOD COUNT 4.01 M/UL (4.20-5.40); RED CELL DISTRIBUTION WIDTH 11.3 % (11.6-14.8); WHITE BLOOD COUNT 5.9 K/UL (4.8-10.8)
--- NOTE | 2020-08-02 06:00 | NUR ---
NURSE NOTES: During this shift ileo cath was repositioned a few times, also attempted to aspirate. Continues to be on medium intermittent suction. Output continues to be low. Patient states she feels less distended and she slept well. Will continue to monitor. True ileo output: -40 cc Urine output: 1195 cc Total 24 HR I&O: Intake: 3877 cc Output: 2935 cc
[2020-08-02 06:09] LABS: CREATININE 1.1 MG/DL (0.55-1.30); POTASSIUM 4.7 MMOL/L (3.5-5.1)
[2020-08-02] MEDS: metroNIDAZOLE 250mg tab ORAL SCH ×4 (06:18→23:43)
--- NOTE | 2020-08-02 06:45 | NUR ---
NURSE NOTES: Ileo output negative, held breakfast tray until assessed by Dr Meadows. Patient verbalized understanding of status NPO until seen by physician. Will pass onto AM nurse.
--- NOTE | 2020-08-02 07:30 | NUR ---
NURSE HAND-OFF: Important Events on Shift:ileo output further decreased, left message for physicins this morning and held breakfast tray Patient Status: stable Diet: NPO Pending Orders: Pending Results/Labs: Pending MD notification: Latest Vital Signs: Temperature 98.4 , Pulse 82 , B/P 90 /59 , Respiratory Rate 17 , O2 SAT 96 , Room Air, O2 Flow Rate 6 . Vital Sign Comment: Latest Henry Fall Score: 35 Fall Risk: Medium Risk Safety Measures: Call light Within Reach, Bed Alarm , Side Rails Side Rails x2, Bed position Low and Locked. Fall Precautions: Yellow Socks Door Sign Patient Fall Education Report given to VALERI Gomez. Rounds done
--- NOTE | 2020-08-02 07:47 | NUR ---
NURSE NOTES: Placed call to Dr Meadows, left message regarding negative ileo output and NPO status until further MD orders. AM nurse and charge nurse aware
--- NOTE | 2020-08-02 07:53 | NUR ---
NURSE NOTES: Received report from sumit RN, rounds made pt sleeping breaths regular unlabored n RA.PT has a the ileostomy on the R lower quad, dressing clean intact , connected to wall suction on medium intermittent and Qs flush, pt has a bed side commode . pt has a LT FA 20G with IVF intact patent asymptomatic , bed in low locked position, side rails upX2, call light within reach , will continue to monitor
[2020-08-02 08:00] VITALS: BP 99/57
[2020-08-02] MEDS: Citalopram Hydrobromide 10mg Tab ORAL SCH (08:33)
[2020-08-02] MEDS: BuPROPion SR 100mg tab ORAL SCH ×2 (08:33→17:17)
[2020-08-02] MEDS: Cyclobenzaprine 10mg Tab ORAL SCH ×3 (08:33→17:17)
[2020-08-02] MEDS: Meloxicam 15 MG TAB ORAL SCH (08:33)
[2020-08-02] MEDS: Ciprofloxacin 500mg tab ORAL SCH ×2 (08:34→21:35)
[2020-08-02] MEDS: MYRBETRIQ 50 MG ORAL SCH (08:34)
[2020-08-02] MEDS: Aspirin Baby 81mg ORAL SCH (08:34)
--- NOTE | 2020-08-02 09:40 | General Progress Note ---
Progress Note Progress Note AVSS CT scan yesterday showed dilated loops fulid and gas filled, catheter in Kock pouch, soft tissue density along the catheter tract ? infection. Started on cipro + flagyl po No Kock pouch output overnight - resistance to flushing catheter so removed. I was able to readily insert a 24 Fr Busch directly into the pouch - evacuated 450cc effluent Abdominal distention improved after decompressing pouch Labs all stable Mg 1.8 Imp: Improved ability to intubate Kock pouch Plan: NPO x po meds to allow bowel to decompress Repeat Kock pouch endoscopy with Dr. Morrison this week Maintain 24 Fr Busch to Kock pouch to suction Lalo Meadows MD Aug 02, 2020 09:40
--- NOTE | 2020-08-02 09:44 | General Progress Note ---
Subjective ROS Limited/Unobtainable: No Allergies: Coded Allergies: ADHESIVE TAPE (Verified Adverse Reaction, Intermediate, Rash, 08/27/19) CLEAR TAPE Objective Last 24 Hour Vital Signs Date Time Temp Pulse Resp B/P (MAP) Pulse Ox O2 Delivery O2 Flow Rate FiO2 08/02/20 00:00 98.4 82 17 90/59 (69) 96 08/01/20 21:00 Room Air 08/01/20 20:00 98.6 76 18 105/61 (76) 98 08/01/20 16:00 98.2 90 18 112/67 (82) 96 08/01/20 12:00 97.6 78 18 92/47 (62) 95 Intake and Output 08/01/20 08/02/20 19:00 07:00 Intake Total 471 ml 556 ml Output Total 1780 ml 1235 ml Balance -1309 ml -679 ml Intake Oral 471 ml 556 ml Output Urine Total 1600 ml 1195 ml Other 180 ml 40 ml Laboratory Tests 08/02/20 04:35: White Blood Count 5.9, Red Blood Count 4.01L, Hemoglobin 12.5, Hematocrit 36.3L, Mean Corpuscular Volume 91, Mean Corpuscular Hemoglobin 31.1H, Mean Corpuscular Hemoglobin Concent 34.3, Red Cell Distribution Width 11.3L, Platelet Count 216, Mean Platelet Volume 6.2L, Neutrophils (%) (Auto) 74.2, Lymphocytes (%) (Auto) 16.5L, Monocytes (%) (Auto) 8.6, Eosinophils (%) (Auto) 0.3, Basophils (%) (Auto) 0.5, Sodium Level 136, Potassium Level 4.7, Chloride Level 104, Carbon Dioxide Level 28, Anion Gap 4L, Blood Urea Nitrogen 6L, Creatinine 1.1, Estimat Glomerular Filtration Rate 49.3, Glucose Level 103, Calcium Level 9.0, Magnesium Level 1.8 Height (Feet): 5 Height (Inches): 4.00 Weight (Pounds): 135 General Appearance: no apparent distress EENT: normal ENT inspection Neck: supple Cardiovascular: normal rate, gallop/S3 Abdomen: normal bowel sounds, non tender, soft Extremities: non-tender Assessment/Plan Assessment/Plan: Malfunctioning Kock pouch with inability to intubate with resulting functional small-bowel obstruction ulcerative colitis s/p pouchoscopy abd pain is better off TPN on diet right arm DVT CT reviewed d/w surg plan pouchoscopy for Monday Adrian Morrison MD Aug 02, 2020 09:44
[2020-08-02] MEDS: HYDROcodone/Acetamin 5/325 tab ORAL PRN ×2 (10:01→20:26)
--- NOTE | 2020-08-02 11:00 | NUR ---
PT Note Attempted to see patient for treatment but patient declined, c/o not feeling well. Will attempt to see patient again in PM if time permits.
[2020-08-02 12:00] VITALS: BP 98/50
[2020-08-02] MEDS ORDERED: NS Irrig 1000ml ONE (15:47)
[2020-08-02 16:00] VITALS: BP 89/51
--- NOTE | 2020-08-02 17:37 | NUR ---
NURSE NOTES: pt remained stable all shift, pain medication provided X1 after dressing change , ileostomy continued to drain after changing catheter by MD with out difficulty , pt denies any pain while just laying in bed and strong pain when she changes position or get up , pt refused physical therapy , pt ambulated with nurse at 1500 X1,fairly tolerated, with will endorse to night supervisor nurse
--- NOTE | 2020-08-02 19:21 | NUR ---
NURSE NOTES: unable to determine amount of ileo flush used by MD Bowden ileo 970 Urine out put 1600
--- NOTE | 2020-08-02 19:22 | NUR ---
NURSE HAND-OFF: Important Events on Shift: Patient Status: stable Diet: NPO Pending Orders: Pending Results/Labs: Pending MD notification: Latest Vital Signs: Temperature 98.4 , Pulse 73 , B/P 89 /51 , Respiratory Rate 16 , O2 SAT 98 , Room Air, O2 Flow Rate 6 . Vital Sign Comment: Latest Henry Fall Score: 35 Fall Risk: Medium Risk Safety Measures: Call light Within Reach, Bed Alarm , Side Rails Side Rails x2, Bed position Low and Locked. Fall Precautions: Yellow Socks Door Sign Patient Fall Education Report given to sumit TRAMMELL.
--- NOTE | 2020-08-02 19:25 | NUR ---
NURSE NOTES: Received report from VALERI Gomez. Rounds done. Patient in stable condition, continues to be NPO. Ileo cath was changed by Dr Meadows this morning, intact, patent to medium intermittent wall suction. New IV was inserted by AM shift RN in LFA #24, receiving IVF. Patient in good spirits, no complaints at this time. Bed in low position, locked, side rails up x2, call light within reach. Will continue to monitor.
[2020-08-02 20:00] VITALS: BP 122/62
[2020-08-02] MEDS: Atorvastatin 20mg tab ORAL SCH (21:35)
[2020-08-02] MEDS: TraZODone 100mg tab ORAL SCH (21:35)
[2020-08-03] VITALS: BP 120/60
--- NOTE | 2020-08-03 03:00 | NUR ---
NURSE NOTES: Catheter flushes well, ileo catheter to wall suction, medium intermittent. Small amount of output. Patient NPO, denies pain, no nausea or vomiting. Will continue to monitor.
[2020-08-03] MEDS: metroNIDAZOLE 250mg tab ORAL SCH ×4 (05:47→23:33)
--- NOTE | 2020-08-03 06:08 | NUR ---
NURSE NOTES: Ileo output last 12 hours: 175-100= 75 cc true ileo output urine output: 1400 cc
--- NOTE | 2020-08-03 06:41 | NUR ---
NURSE HAND-OFF: Important Events on Shift: decrease in ileo output compared to day shift, patient is NPO,no N/V, no c/o pain, ileo to med intermittent wall suction Patient Status: stable Diet: NPO Pending Orders: Pending Results/Labs: Pending MD notification: Latest Vital Signs: Temperature 98.1 , Pulse 70 , B/P 120 /60 , Respiratory Rate 19 , O2 SAT 97 , Room Air, O2 Flow Rate 6 . Vital Sign Comment: Latest Henry Fall Score: 35 Fall Risk: Medium Risk Safety Measures: Call light Within Reach, Bed Alarm , Side Rails Side Rails x2, Bed position Low and Locked. Fall Precautions: Yellow Socks Door Sign Patient Fall Education
--- NOTE | 2020-08-03 07:10 | NUR ---
HAND-OFF: Report given to VALERI Gomez. Rounds done, patient asleep.
--- NOTE | 2020-08-03 07:41 | NUR ---
NURSE NOTES: Received report from sumit RN, rounds made pt sleeping breaths regular unlabored n RA.PT has a the ileostomy on the R lower quad, dressing clean intact , connected to wall suction on medium intermittent and Qs flush, pt has a bed side commode . pt has a LT FA 24G with IVF intact patent asymptomatic , bed in low locked position, side rails upX2, call light within reach , will continue to monitor
[2020-08-03 08:00] VITALS: BP 123/60
--- NOTE | 2020-08-03 08:18 | General Progress Note ---
Subjective ROS Limited/Unobtainable: Yes Allergies: Coded Allergies: ADHESIVE TAPE (Verified Adverse Reaction, Intermediate, Rash, 08/27/19) CLEAR TAPE Objective Last 24 Hour Vital Signs Date Time Temp Pulse Resp B/P (MAP) Pulse Ox O2 Delivery O2 Flow Rate FiO2 08/03/20 00:00 98.1 70 19 120/60 (80) 97 08/02/20 21:00 Room Air 08/02/20 20:00 98.2 76 16 122/62 (82) 97 08/02/20 16:00 98.4 73 16 89/51 (64) 98 08/02/20 12:00 98.2 71 16 98/50 (66) 98 08/02/20 09:00 Room Air Intake and Output 08/02/20 08/03/20 18:59 06:59 Output Total 2570 ml 1475 ml Balance -2570 ml -1475 ml Output Urine Total 1600 ml 1400 ml Other 970 ml 75 ml # Voids 3 Height (Feet): 5 Height (Inches): 4.00 Weight (Pounds): 135 General Appearance: no apparent distress EENT: normal ENT inspection Neck: supple Cardiovascular: normal rate Respiratory/Chest: decreased breath sounds Abdomen: normal bowel sounds, non tender, soft Extremities: non-tender Assessment/Plan Assessment/Plan: Malfunctioning Kock pouch with inability to intubate with resulting functional small-bowel obstruction ulcerative colitis s/p pouchoscopy abd pain is better off TPN on diet right arm DVT CT reviewed d/w surg plan pouchoscopy for Monday Adrian Morrison MD Aug 03, 2020 08:18
[2020-08-03] MEDS: Aspirin Baby 81mg ORAL SCH (08:44)
[2020-08-03] MEDS: BuPROPion SR 100mg tab ORAL SCH ×2 (08:44→17:15)
[2020-08-03] MEDS: Cyclobenzaprine 10mg Tab ORAL SCH (08:44)
[2020-08-03] MEDS: Citalopram Hydrobromide 10mg Tab ORAL SCH (08:44)
[2020-08-03] MEDS: Meloxicam 15 MG TAB ORAL SCH (08:44)
[2020-08-03] MEDS: Ciprofloxacin 500mg tab ORAL SCH ×2 (08:44→21:53)
[2020-08-03] MEDS: D5 1/4NS w/KCl 20mEq 1,000 ML IV SCH ×2 (08:44→17:16)
[2020-08-03] MEDS: MYRBETRIQ 50 MG ORAL SCH (08:45)
[2020-08-03] MEDS ORDERED: LORazepam 1mg tab ORAL PRN (10:00)
--- NOTE | 2020-08-03 10:03 | General Progress Note ---
Progress Note Progress Note AVSS New Kock pouch catheter inserted yesterday is draining well to suction Abdomen soft, Peristomal swelling is decreased Urine 3000 Kock pouch ileo 1045 Imp: Improved Plan; clear liquid diet continue cipro + flagyl po follow-up Kock pouch endoscopy tomorrow with attempts at self- intubations Lalo Meadows MD Aug 03, 2020 10:03
[2020-08-03 12:00] VITALS: BP 99/55
--- NOTE | 2020-08-03 12:31 | NUR ---
RD ASSESSMENT & RECOMMENDATIONS SEE CARE ACTIVITY FOR COMPLETE ASSESSMENT DAILY ESTIMATED NEEDS: Needs based on General/ 58.9kg abw 25-30 kcals/kg 7687-3881 total kcals 1-1.2 (2.0g/kg w/ surgery) g protein/kg 59-70 (118g w/ surgery) g total protein 25-30 mL/kg 3522-4442 total fluid mLs NUTRITION DIAGNOSIS: Altered GI function R/T h/o malfunctioning ileo, as evidenced by pt unable to intubate, awaiting now s/p pouch endoscopy, on BCIR low residue diet, made NPO again for dilated loops fluid and gas filled per CT scan, now advanced to CLD, PPN dc'ed. CURRENT DIET:BCIR LOW RESIDUE DIET -> NPO -> CLD PO DIET RECOMMENDATIONS: Diet per MD ADDITIONAL RECOMMENDATIONS: * Standing wt as able while ambulating for accurate CBW (04/28) standing wt of 135.8 lbs (07/16) Bed wt 130 lbs * Ensure Clear TID added while on CLD (240kcal, 8g prot each) * Monitor lytes, replete as needed * Monitor PO tolerance and acceptance * Monitor for diet advancement
[2020-08-03] MEDS: HYDROcodone/Acetamin 5/325 tab ORAL PRN ×2 (13:34→19:59)
--- NOTE | 2020-08-03 13:38 | NUR ---
CASE MANAGEMENT:REVIEW SI;ENTEROSTOMY MALFUNCTION 98.2 72 19 99/55 97% ON RA IS;FLAGYL PO Q6 CIPROFLOXACIN PO Q12 NORCO PO Q4 PRN IVF D5W @ 100 ML/HR PROTONIX PO QD MED SURG STATUS DCP;PATIENT IS FROM HOME PLAN; CLEAR LIQUID DIET FOLLOW UP KOCK POUCH ENDOSCOPY 08/04/20 WITH ATTEMPTS AT SELF INTUBATION
[2020-08-03 16:00] VITALS: BP 96/53
[2020-08-03] MEDS: Simethicone 80mg tab ORAL PRN (16:23)
[2020-08-03] MEDS: Cyclobenzaprine 10mg Tab ORAL PRN (17:15)
[2020-08-03] MEDS ORDERED: NS Irrig 1000ml ONE (17:53)
--- NOTE | 2020-08-03 18:51 | NUR ---
NURSE NOTES: pt remained stable all shift, pain medication provided X1 after lunch due to pain around the ileo stoma, dressing clean intact and ileo draining to suction with out difficulty , Flexeril provided due to cramping and was effective , pt had physical therapy ,well tolerated X1,fairly true ileo 620 Urine out put 1100
--- NOTE | 2020-08-03 19:25 | NUR ---
NURSE HAND-OFF: Important Events on Shift: Patient Status: stable Diet: clear liquid Pending Orders: Pending Results/Labs: Pending MD notification: Latest Vital Signs: Temperature 98.0 , Pulse 79 , B/P 96 /53 , Respiratory Rate 16 , O2 SAT 97 , Room Air, O2 Flow Rate 6 . Vital Sign Comment: Latest Henry Fall Score: 35 Fall Risk: Medium Risk Safety Measures: Call light Within Reach, Bed Alarm , Side Rails Side Rails x2, Bed position Low and Locked. Fall Precautions: Yellow Socks Door Sign Patient Fall Education Report given to Alisia TRAMMELL.
--- NOTE | 2020-08-03 19:26 | NUR ---
NURSE NOTES: Received report from VALERI Gomez. Rounds done, patient sitting up in bed, no complaints of pain or nausea or other discomfort. Ileo RLQ to medium intermittent wall suction, patent, working well. Abdominal dressing intact, was changed today. Patient tolerating clear liquid diet, aware of NPO after midnight. Bed in low position, locked, side rails up x2, call light within reach. Will continue to monitor.
[2020-08-03] MEDS: Ascorbic Acid 500mg tab ORAL PRN (19:59)
[2020-08-03 20:00] VITALS: BP 125/60
[2020-08-03] MEDS: TraZODone 100mg tab ORAL SCH (21:53)
[2020-08-03] MEDS: Atorvastatin 20mg tab ORAL SCH (21:53)
[2020-08-04] VITALS (8 sets, daily range): BP systolic 102–137; BP diastolic 41–73
[2020-08-04] MEDS: D5 1/4NS w/KCl 20mEq 1,000 ML IV SCH ×2 (02:30→17:24)
[2020-08-04] MEDS: metroNIDAZOLE 250mg tab ORAL SCH ×3 (06:00→17:24)
--- NOTE | 2020-08-04 06:00 | NUR ---
NURSE NOTES: 12 hour output: decker catheter: 1125 cc ileo: 425 - 80 (ileo flushes)= 345 true ileo 24 hour intake: 2800 24 hour output: 3940 Addendum: 08/04/20 at 0702 by Alisia Diane RN ABOVE NOTES ADDRESSED TO ANOTHER PATIENT, PLEASE DISREGARD
[2020-08-04 06:29] LABS: BASOPHILS % (AUTO) 0.5 % (0.0-2.0); EOSINOPHILS % (AUTO) 0.1 % (0.0-3.0); HEMATOCRIT 34.6 % (37.0-47.0); HEMOGLOBIN 11.9 G/DL (12.0-16.0); LYMPHOCYTES % (AUTO) 33.4 % (20.0-45.0); MEAN CORPUSCULAR VOLUME 91 FL (80-99); MONOCYTES % (AUTO) 9.3 % (1.0-10.0); NEUTROPHILS % (AUTO) 56.7 % (45.0-75.0); PLATELET COUNT 201 K/UL (150-450); RED CELL DISTRIBUTION WIDTH 10.9 % (11.6-14.8); WHITE BLOOD COUNT 4.3 K/UL (4.8-10.8)
--- NOTE | 2020-08-04 06:53 | NUR ---
NURSE HAND-OFF: Important Events on Shift: patient hasn't needed SIGN PAINTER morphine for over 24 hours, pain rated 0-1/10. Patient Status: stable Diet: NPO Pending Orders: Pending Results/Labs:CBC, BMP, Mag, Phos this morning Pending MD notification: Latest Vital Signs: Temperature 98.0 , Pulse 76 , B/P 102 /52 , Respiratory Rate 18 , O2 SAT 97 , Room Air, O2 Flow Rate 6 . Vital Sign Comment: Latest Henry Fall Score: 35 Fall Risk: Medium Risk Safety Measures: Call light Within Reach, Bed Alarm , Side Rails Side Rails x2, Bed position Low and Locked. Fall Precautions: Yellow Socks Door Sign Patient Fall Education Addendum: 08/04/20 at 0702 by Alisia Diane RN ABOVE NOTES ADDRESSED TO ANOTHER PATIENT, PLEASE DISREGARD
[2020-08-04 07:02] LABS: ALANINE AMINOTRANSFERASE 15 U/L (12-78); ALBUMIN 2.8 G/DL (3.4-5.0); ALBUMIN/GLOBULIN RATIO 0.8 (1.0-2.7); ALKALINE PHOSPHATASE 91 U/L (46-116); BILIRUBIN,TOTAL 0.3 MG/DL (0.2-1.0); BLOOD UREA NITROGEN 8 mg/dL (7-18); CALCIUM 8.7 MG/DL (8.5-10.1); CARBON DIOXIDE 28 MMOL/L (21-32); CREATININE 1.1 MG/DL (0.55-1.30); PHOSPHORUS 3.9 MG/DL (2.5-4.9)
--- NOTE | 2020-08-04 07:05 | NUR ---
NURSE HAND-OFF: Important Events on Shift: patient tolerated yesterday's clear liquid diet and Ensure, has been NPO since midnight, GI checklist completed, Patient Status: stable Diet: NPO since midnight Pending Orders: Pending Results/Labs:[] Pending MD notification:[] Latest Vital Signs: Temperature 98.0 , Pulse 76 , B/P 102 /52 , Respiratory Rate 18 , O2 SAT 97 , Room Air, O2 Flow Rate 6 . Vital Sign Comment: [] Latest Henry Fall Score: 35 Fall Risk: Medium Risk Safety Measures: Call light Within Reach, Bed Alarm , Side Rails Side Rails x2, Bed position Low and Locked. Fall Precautions: Yellow Socks Door Sign Patient Fall Education Report given to Salas RN. Rounds done
--- NOTE | 2020-08-04 07:20 | NUR ---
NURSE NOTES: Handoff received from Alisia TRAMMELL. Patient is awake and alert, no signs of distress noted. Ileo catheter connected to intermittent med suction. IV is patent and asymptomatic, running IVF as ordered. Patient is currently NPO and scheduled for pouch endoscopy at 1200. Bed is low and locked, side rails up x2, call light is within reach.
[2020-08-04 07:21] LABS: CHLORIDE 99 MMOL/L (98-107); POTASSIUM 4.9 MMOL/L (3.5-5.1); SODIUM 133 MMOL/L (136-145)
[2020-08-04] MEDS ORDERED: DiphenhydrAMINE 50mg/ml Inj IVP PRN (07:45)
[2020-08-04] MEDS ORDERED: Atropine Inj 1mg/10ml Syr IVP PRN (07:45)
[2020-08-04] MEDS ORDERED: fentaNYL 100 mcg/2 mL IV PRN (07:45)
[2020-08-04] MEDS ORDERED: Labetalol 5mg/ml 20ml vial IV PRN (07:45)
[2020-08-04] MEDS ORDERED: Midazolam 2mg/2ml Inj IVP PRN (07:45)
--- NOTE | 2020-08-04 07:46 | Anethesia Preoperative Eval ---
Anesthesia Pre-op PMH/ROS General Date of Evaluation: Aug 04, 2020 Time of Evaluation: 07:43 Anesthesiologist: medardo ASA Score: ASA 3 Mallampati Score Class I : Soft palate, uvula, fauces, pillars visible Class II: Soft palate, uvula, fauces visible Class III: Soft palate, base of uvula visible Class IV: Only hard plate visible Mallampati Classification: Class II Surgeon: aliyah Diagnosis: bcir malfunction Surgical Procedure: pouchoscopy Anesthesia History: none Social History: smoking - nonsmoker Family History: no anesthesia problems Allergies: Coded Allergies: ADHESIVE TAPE (Verified Adverse Reaction, Intermediate, Rash, 08/27/19) CLEAR TAPE Medications: see eMAR Patient NPO?: Yes Past Medical History Cardiovascular: Reports: CAD, other - hypercholesterolemia Pulmonary: Reports: other - sinusitis, bronchitis Gastrointestinal/Genitourinary: Reports: GERD, other - partial small bowel obstruction, kidney stones Neurologic/Psychiatric: Reports: depression/anxiety HEENT: Reports: cataract (L), cataract (R), other - visual acuity Anesthesia Pre-op Phys. Exam Physician Exam Last Vital Signs Date Time Temp Pulse Resp B/P (MAP) Pulse Ox O2 Delivery O2 Flow Rate FiO2 08/04/20 09:00 Room Air 08/04/20 08:00 97.3 74 17 133/73 (93) 98 Constitutional: NAD Neurologic: CN 2-12 intact Cardiovascular: RRR Respiratory: CTA Gastrointestinal: S/NT/ND Airway Exam Mallampati Score: Class II MO: limited Neck: flexible TMD: 2fb ROM: limited Anesthesia Pre-op A/P Labs Microbiology Date/Time Source Procedure Growth Status 07/29/20 12:45 Stool Clostridium difficile Toxin Assay - Final Complete 07/15/20 13:25 Nasopharynx SARS-CoV-2 RdRp Gene Assay - Final Complete Hematology Test 08/04/20 05:15 White Blood Count 4.3 K/UL (4.8-10.8) L Red Blood Count 3.80 M/UL (4.20-5.40) L Hemoglobin 11.9 G/DL (12.0-16.0) L Hematocrit 34.6 % (37.0-47.0) L Mean Corpuscular Volume 91 FL (80-99) Mean Corpuscular Hemoglobin 31.2 PG (27.0-31.0) H Mean Corpuscular Hemoglobin Concent 34.2 G/DL (32.0-36.0) Red Cell Distribution Width 10.9 % (11.6-14.8) L Platelet Count 201 K/UL (150-450) Mean Platelet Volume 5.9 FL (6.5-10.1) L Neutrophils (%) (Auto) 56.7 % (45.0-75.0) Lymphocytes (%) (Auto) 33.4 % (20.0-45.0) Monocytes (%) (Auto) 9.3 % (1.0-10.0) Eosinophils (%) (Auto) 0.1 % (0.0-3.0) Basophils (%) (Auto) 0.5 % (0.0-2.0) Chemistry Test 08/04/20 05:15 Sodium Level 133 MMOL/L (136-145) L Potassium Level 4.9 MMOL/L (3.5-5.1) Chloride Level 99 MMOL/L (98-107) Carbon Dioxide Level 28 MMOL/L (21-32) Blood Urea Nitrogen 8 mg/dL (7-18) Creatinine 1.1 MG/DL (0.55-1.30) Estimat Glomerular Filtration Rate 49.3 mL/min (>60) Glucose Level 101 MG/DL (74-106) Calcium Level 8.7 MG/DL (8.5-10.1) Phosphorus Level 3.9 MG/DL (2.5-4.9) Magnesium Level 1.4 MG/DL (1.8-2.4) L Total Bilirubin 0.3 MG/DL (0.2-1.0) Aspartate Amino Transf (AST/SGOT) Pending Alanine Aminotransferase (ALT/SGPT) 15 U/L (12-78) Alkaline Phosphatase 91 U/L (46-116) Total Protein 6.1 G/DL (6.4-8.2) L Albumin 2.8 G/DL (3.4-5.0) L Globulin 3.3 g/dL Albumin/Globulin Ratio 0.8 (1.0-2.7) L Risk Assessment & Plan Assessment: asa3 Plan: mac Status Change Before Surgery: No Pre-Antibiotics Drug: Magalys Kaur MD Aug 04, 2020 07:46
--- NOTE | 2020-08-04 08:32 | General Progress Note ---
Progress Note Progress Note AVSS Did well with clear liquid diet + supplements Abdomen soft Urine 1999 Kock pouch ileo 1265 Labs stable except Mg 1.4 Imp: Improved Plan: Mg infusions trial of self-intubating Kock pouch with follow-up Kock pouch endoscopy today Lalo Meadows MD Aug 04, 2020 08:32
[2020-08-04 08:52] LABS: ASPARTATE AMINO TRANSFERASE 14 U/L (15-37)
[2020-08-04] MEDS: Meloxicam 15 MG TAB ORAL SCH (09:03)
[2020-08-04] MEDS: MYRBETRIQ 50 MG ORAL SCH (09:03)
[2020-08-04] MEDS: Citalopram Hydrobromide 10mg Tab ORAL SCH (09:03)
[2020-08-04] MEDS: Ciprofloxacin 500mg tab ORAL SCH ×2 (09:04→20:52)
[2020-08-04] MEDS: BuPROPion SR 100mg tab ORAL SCH ×2 (09:04→17:25)
[2020-08-04] MEDS: Aspirin Baby 81mg ORAL SCH (09:04)
--- NOTE | 2020-08-04 10:15 | NUR ---
PT NOTE Attempted to see patient for PT treatment, patient declining to participate due to pending procedure. Josue TRAMMELL notified, will follow.
--- NOTE | 2020-08-04 11:50 | NUR ---
NURSE NOTES: Patient left for pouch endoscopy in stable condition.
--- NOTE | 2020-08-04 11:58 | Pre-Procedure Note/Attestation ---
Pre-Procedure Note/Attestation Complete Prior to Procedure Planned Procedure: not applicable Procedure Narrative: pouchoscopy Indications for Procedure Pre-Operative Diagnosis: out let obstruction Attestation I attest that I discussed the nature of the procedure; its benefits; risks and complications; and alternatives (and the risks and benefits of such alternatives), prior to the procedure, with the patient (or the patient's legal merchandiser retail representative). I attest that, if there was a reasonable possibility of needing a blood transfusion, the patient (or the patient's legal merchandiser retail representative) was given the [facility] standardized written summary, pursuant to the Will Brandon Blood Safety Act ([place] Health and Safety Code # 1645, as amended). I attest that I re-evaluated the patient just prior to the surgery and that there has been no change in the patient's H&P, except as documented below: Adrian Morrison MD Aug 04, 2020 11:58
[2020-08-04] MEDS ORDERED: Lidocaine 1% MPF 10mg/ml 5ml ONE (12:00)
[2020-08-04] MEDS ORDERED: NS 500ML IVPB ONE (12:10)
--- NOTE | 2020-08-04 12:40 | Endoscopy Procedure Note ---
Endoscopy Procedure Note General Indication for Procedure: pouch outlet obstruction Procedures Performed: other - pouchoscopy Operative Findings/Diagnosis: same Specimen: none Pt Tolerated Procedure Well: Yes Estimated Blood Loss: none Anesthesia Anesthesiologist: samantha reece Anesthesia: MAC Inserted Devices Implant(s) used?: No GI Core Measures 50 yrs or older w/o bx or poly: Not Applicable 10yrs. F/U recommended: Not Applicable Adrian Morrison MD Aug 04, 2020 12:40
--- NOTE | 2020-08-04 12:44 | General Progress Note ---
Progress Note Progress Note In GI lab, indwelling 26 Fr Busch Kock pouch catheter removed - I was unable to reinsert 26 or 28 Busch Endoscopy revealed severe angulation 5-6cm deep. Imp: Malfunctioning Kock pouch with inability to intubate Plan: Will need PICC line, then schedule surgery - stoma revision and possible laparotomy Lalo Meadows MD Aug 04, 2020 12:44
--- NOTE | 2020-08-04 13:26 | NUR ---
NURSE NOTES: Patient returned from pouch endoscopy in stable condition.
--- NOTE | 2020-08-04 13:37 | Immediate Post-Op Evaluation ---
Immediate Post-Op Evalulation Immediate Post-Op Evalulation Procedure: pouchoscopy Date of Evaluation: Aug 04, 2020 Time of Evaluation: 12:52 IV Fluids: 150ml 0.9ns Blood Products: none Estimated Blood Loss: negligible Blood Pressure Systolic: 111 Blood Pressure Diastolic: 52 Pulse Rate: 74 Respiratory Rate: 18 O2 Sat by Pulse Oximetry: 99 Temperature (Fahrenheit): 97.5 Pain Score (1-10): 0 Nausea: No Vomiting: No Complications none Patient Status: awake, reacts, patent Hydration Status: adequate Drug: Magalys Kaur MD Aug 04, 2020 13:37
--- NOTE | 2020-08-04 13:38 | 48 Hour Post Anesthesia Eval ---
Post Anesthesia Evaluation Procedure: pouchoscopy Date of Evaluation: Aug 04, 2020 Time of Evaluation: 12:54 Blood Pressure Systolic: 115 0: 47 Pulse Rate: 74 Respiratory Rate: 18 Temperature (Fahrenheit): 97.5 O2 Sat by Pulse Oximetry: 99 Airway: patent Nausea: No Vomiting: No Pain Intensity: 0 Hydration Status: adequate Cardiopulmonary Status: stable Mental Status/LOC: patient returned to baseline Post-Anesthesia Complications: none Follow-up care needed: N/A Magalys Atkinson MD Aug 04, 2020 13:38
--- NOTE | 2020-08-04 18:00 | NUR ---
NURSE NOTES: Total urine: 1300 total ileo output: +120 Patient declined to work with PT today, but ambulated in her room and used the bedside commode. Patient tolerated clear liquid diet well with no reports of nausea and had 1x ensure enlive with her meals. Patient was medicated for pain x1 with norco 5, no other reports of pain throughout the day. Consent was obtained for PICC placement tomorrow AM.
--- NOTE | 2020-08-04 18:00 | Procedure Note ---
DATE OF PROCEDURE: 08/04/2020 SURGEON: Adrian Morrison MD REFERRING PHYSICIAN: Lalo Meadows MD PROCEDURE: Pouchoscopy. ANESTHESIA: Per Dr. Han. INSTRUMENT: Olympus adult flexible upper endoscope. INDICATION: Placement of drainage catheter, pouch outlet obstruction. The procedure, risks, benefits, and possible consequences, including hemorrhage, aspiration, perforation and infection, and alternative treatments, were explained to the patient/legal guardian by Dr. Adrian Morrison and the patient/legal guardian understood and accepted these risks. DESCRIPTION OF PROCEDURE: After informed consent was obtained and the patient was adequately sedated, Olympus pediatric upper scope was advanced into the pouch. With some manipulation, we were able to get into the pouch. There were folds and narrowing in the opening that made it difficult to pass the scope through, but finally we were able to negotiate the scope into the pouch. Then, we placed a wire. Over the wire, a Busch was advanced into the pouch without any complication. SUMMARY OF FINDINGS: Pouch outlet obstruction, status post drainage placement. RECOMMENDATIONS: The patient to follow up with Surgery for further management. I want to thank, Dr. Lalo Meadows, for this kind referral. Adrian Morrison M.D. DR: BIRDIE JOB#: [id number] CC: Lalo Meadows MD.; Fax#: [phone]
[2020-08-04] MEDS: HYDROcodone/Acetamin 5/325 tab ORAL PRN (18:03)
[2020-08-04] MEDS ORDERED: NS Irrig 1000ml ONE (18:05)
--- NOTE | 2020-08-04 19:15 | NUR ---
NURSE HAND-OFF: Important Events on Shift:[pouch endoscopy] Patient Status: stable Diet: clear liquid Pending Orders: Pending Results/Labs:CBC CMP MAG Phos type/cross Pending MD notification: Latest Vital Signs: Temperature 98.6 , Pulse 74 , B/P 120 /68 , Respiratory Rate 18 , O2 SAT 99 , Room Air, O2 Flow Rate 3 . Vital Sign Comment: Latest Henry Fall Score: 35 Fall Risk: Medium Risk Safety Measures: Call light Within Reach, Bed Alarm , Side Rails Side Rails x2, Bed position Low and Locked. Fall Precautions: Yellow Socks Door Sign Patient Fall Education Report given to Rosmery TRAMMELL.
--- NOTE | 2020-08-04 20:02 | NUR ---
NURSES NOTE: Pt in bed, A/OX4, denies pain at this moment. No outward s/s of distress noted. Breathing pattern is even and unlabored on RA. 2000 VS are within normal limits. No BP OR IV on R arm. RLQ ileo in place, connected to intermittent medium suction to be flushed Q3H. IV site ILIR is in place, infusing IVF without incident. All due medications will be administered. Bed at lowest level. Call light within reach. Pt will continue to be monitored.
[2020-08-04] MEDS: Atorvastatin 20mg tab ORAL SCH (20:52)
[2020-08-04] MEDS: TraZODone 100mg tab ORAL SCH (22:02)
[2020-08-05] VITALS (11 sets, daily range): BP systolic 89–134; BP diastolic 38–72
[2020-08-05] MEDS: metroNIDAZOLE 250mg tab ORAL SCH ×2 (00:27→05:57)
[2020-08-05 05:38] LABS: BASOPHILS % (AUTO) 6.3 % (0.0-2.0); EOSINOPHILS % (AUTO) 0.1 % (0.0-3.0); HEMATOCRIT 36.8 % (37.0-47.0); HEMOGLOBIN 12.4 G/DL (12.0-16.0); LYMPHOCYTES % (AUTO) 19.8 % (20.0-45.0); MEAN CORPUSCULAR VOLUME 93 FL (80-99); NEUTROPHILS % (AUTO) 64.8 % (45.0-75.0); PLATELET COUNT 212 K/UL (150-450); RED BLOOD COUNT 3.96 M/UL (4.20-5.40); RED CELL DISTRIBUTION WIDTH 11.6 % (11.6-14.8); WHITE BLOOD COUNT 4.9 K/UL (4.8-10.8)
[2020-08-05 05:58] LABS: ALBUMIN 2.9 G/DL (3.4-5.0); ALBUMIN/GLOBULIN RATIO 0.9 (1.0-2.7); BILIRUBIN,TOTAL 0.3 MG/DL (0.2-1.0); CALCIUM 8.9 MG/DL (8.5-10.1); CREATININE 1.2 MG/DL (0.55-1.30); PHOSPHORUS 4.1 MG/DL (2.5-4.9); POTASSIUM 5.4 MMOL/L (3.5-5.1)
--- NOTE | 2020-08-05 06:32 | NUR ---
NURSE HAND-OFF: Important Events on Shift:[Potassium 5.4, Mag 1.4] Patient Status: [STABLE] Diet: [CLEAR LIQUID] Pending Orders: [NONE] Pending Results/Labs:[NONE] Pending MD notification:[NONE] Latest Vital Signs: Temperature 97.7 , Pulse 72 , B/P 115 /55 , Respiratory Rate 18 , O2 SAT 96 , Room Air, O2 Flow Rate 3 . Vital Sign Comment: [WNL] Latest Henry Fall Score: 35 Fall Risk: Medium Risk Safety Measures: Call light Within Reach, Bed Alarm , Side Rails Side Rails x2, Bed position Low and Locked. Fall Precautions: Yellow Socks Door Sign Patient Fall Education Report given to [].
--- NOTE | 2020-08-05 07:10 | NUR ---
HAND OFF: Report given to VALERI Salas.
--- NOTE | 2020-08-05 07:10 | NUR ---
NURSE NOTES: Handoff received from Rosmery TRAMMELL. Patient is awake and alert, no signs of distress noted. Ileo catheter connected to intermittent med suction. IV is patent and asymptomatic, running IVF as ordered. Patient scheduled for PICC placement today. Bed is low and locked, side rails up x2, call light is within reach.
--- NOTE | 2020-08-05 08:00 | NUR ---
NURSE HAND-OFF: Important Events on Shift:central line placement Patient Status: stable Diet: clear liquid Pending Orders: surgery tomorrow Pending Results/Labs: Pending MD notification: Latest Vital Signs: Temperature 98.2 , Pulse 81 , B/P 127 /67 , Respiratory Rate 17 , O2 SAT 99 , Room Air, O2 Flow Rate 3 . Vital Sign Comment: Latest Henry Fall Score: 35 Fall Risk: Medium Risk Safety Measures: Call light Within Reach, Bed Alarm , Side Rails Side Rails x2, Bed position Low and Locked. Fall Precautions: Yellow Socks Door Sign Patient Fall Education Report given to German TRAMMELL. Addendum: 08/05/20 at 2024 by Josue Coto RN RN wrong timestamp: 1999
--- NOTE | 2020-08-05 08:29 | General Progress Note ---
Progress Note Progress Note AVSS Medena catheter in Kock pouch draining well Abdomen soft Na 135 K 5.4 Mg 1.4 Albumin 2.9 Imp: Malfunctioning Kock pouch with inability to intubate Plan: PICC today, TPN starting tonight Surgery tomorrow - stoma revision in depth, possible laparotomy with revision of Kock pouch Full discussion with patient. Lalo Meadows MD Aug 05, 2020 08:29
[2020-08-05] MEDS ORDERED: D5 1/2NS 1,000 ML IV SCH (09:07)
--- NOTE | 2020-08-05 09:07 | NUR ---
RD ASSESSMENT & RECOMMENDATIONS SEE CARE ACTIVITY FOR COMPLETE ASSESSMENT DAILY ESTIMATED NEEDS: Needs based on General/ 58.9kg abw 25-30 kcals/kg 1070-3599 total kcals 1-1.2 (2.0g/kg w/ surgery) g protein/kg 59-70 (118g w/ surgery) g total protein 25-30 mL/kg 6269-7370 total fluid mLs NUTRITION DIAGNOSIS: Altered GI function R/T h/o malfunctioning ileo, as evidenced by pt unable to intubate, awaiting now s/p pouch endoscopcy, on BCIR low residue diet, made NPO again for dilated loops fulid and gas filled per CT scan, pending stoma revision and possible laparotomy, NPO w/ TPN. CURRENT DIET:Now GI/ surgery prep PARENTERAL NUTRITION RECOMMENDATIONS: D/AA Rate: 66 IL Rate: 9 Total Rate: 75 Volume: 1800 % Dextrose: 17 % AA: 5.3 Energy (kcals/kg): 1683 Protein (g/kg protein): 84 Nonprotein KCALS: 1348 GIR (mg CHO/kg/min): 3.2 % Fat KCALS: 27 NPC: N Ratio: 100:1 TPN Comment: - D17% w/ AA 5.3% @ 66ml/hr + 20%IL @9ml/hr-> total of 75ml/hr, all 3:1 - Start rate per MD. - TPN at goal meets 100% est needs. ADDITIONAL RECOMMENDATIONS: * Standing wt as able while ambulating for accurate CBW (04/28) standing wt of 135.8 lbs (07/16) Bed wt 130 lbs * Check BG, lytes and LFT's w/ TPN K elevated 5.4 . .
--- NOTE | 2020-08-05 09:32 | General Progress Note ---
Subjective ROS Limited/Unobtainable: No Allergies: Coded Allergies: CEFEPIME (Verified Adverse Reaction, Severe, 08/05/20) causes low platlets ADHESIVE TAPE (Verified Adverse Reaction, Intermediate, Rash, 08/27/19) CLEAR TAPE Objective Last 24 Hour Vital Signs Date Time Temp Pulse Resp B/P (MAP) Pulse Ox O2 Delivery O2 Flow Rate FiO2 08/05/20 08:00 97.9 74 16 130/65 (86) 97 08/05/20 00:00 97.7 72 18 115/55 (75) 96 08/04/20 21:25 Room Air 08/04/20 20:00 98.6 75 17 102/51 (68) 94 08/04/20 18:33 98.6 08/04/20 16:00 98.6 74 120/68 (85) 08/04/20 13:38 74 18 99 08/04/20 13:37 74 18 99 08/04/20 13:00 97.4 81 16 137/41 95 Room Air 08/04/20 12:50 74 13 115/47 100 Nasal Cannula 3 08/04/20 12:45 74 15 120/52 98 Nasal Cannula 3 08/04/20 12:40 97.5 72 14 111/52 100 Nasal Cannula 3 Intake and Output 08/04/20 08/05/20 19:00 07:00 Intake Total 575 ml 360 ml Output Total 1420 ml 815 ml Balance -845 ml -455 ml Intake Oral 400 ml 360 ml IV Total 175 ml Output Urine Total 1300 ml 575 ml Estimated Blood Loss 0 ml Other 120 ml 240 ml # Voids 5 2 Laboratory Tests 08/05/20 05:10: White Blood Count 4.9, Red Blood Count 3.96L, Hemoglobin 12.4, Hematocrit 36.8L, Mean Corpuscular Volume 93, Mean Corpuscular Hemoglobin 31.2H, Mean Corpuscular Hemoglobin Concent 33.6, Red Cell Distribution Width 11.6, Platelet Count 212, Mean Platelet Volume 5.3L, Neutrophils (%) (Auto) 64.8, Lymphocytes (%) (Auto) 19.8L, Monocytes (%) (Auto) 9.0, Eosinophils (%) (Auto) 0.1, Basophils (%) (Auto) 6.3H, Sodium Level 135L, Potassium Level 5.4H, Chloride Level 99, Carbon Dioxide Level 23, Anion Gap 13, Blood Urea Nitrogen 8, Creatinine 1.2, Estimat Glomerular Filtration Rate 44.5, Glucose Level 76, Calcium Level 8.9, Phosphorus Level 4.1, Magnesium Level 1.4L, Total Bilirubin 0.3, Aspartate Amino Transf (AST/SGOT) 17, Alanine Aminotransferase (ALT/SGPT) 16, Alkaline Phosphatase 87, Total Protein 6.1L, Albumin 2.9L, Globulin 3.2, Albumin/Globulin Ratio 0.9L Height (Feet): 5 Height (Inches): 5.00 Weight (Pounds): 126 General Appearance: no apparent distress EENT: normal ENT inspection Neck: supple Cardiovascular: normal rate Respiratory/Chest: decreased breath sounds Abdomen: normal bowel sounds, non tender, soft Extremities: non-tender Assessment/Plan Assessment/Plan: Malfunctioning Kock pouch with inability to intubate with resulting functional small-bowel obstruction ulcerative colitis s/p pouchoscopy TPN right arm DVT CT reviewed d/w surg pending pouch revision tomorrow Adrian Morrison MD Aug 05, 2020 09:32
--- NOTE | 2020-08-05 09:37 | NUR ---
NURSE NOTES: Contacted radiology regarding patient's PICC placement. Reed in radiology said that it can be done today at 1300.
[2020-08-05] MEDS: Citalopram Hydrobromide 10mg Tab ORAL SCH (09:43)
[2020-08-05] MEDS: Meloxicam 15 MG TAB ORAL SCH (09:43)
[2020-08-05] MEDS: BuPROPion SR 100mg tab ORAL SCH ×2 (09:44→18:16)
[2020-08-05] MEDS: MYRBETRIQ 50 MG ORAL SCH (09:46)
[2020-08-05] MEDS: Aspirin Baby 81mg ORAL SCH (09:53)
[2020-08-05] MEDS: Phytonadione 10 mg/mL 1ml amp SUBQ SCH (10:05)
--- NOTE | 2020-08-05 10:36 | NUR ---
NURSE NOTES: Received call from Reed in radiology regarding PICC placement, he recommended that the patient get a tunnelled central venous catheter. Dr. Meadows was notified, and he asked for the radiologist to contact him directly. Reed was notified and he will contact the radiologist to speak with Dr. Meadows.
--- NOTE | 2020-08-05 10:58 | NUR ---
NURSE NOTES: Received order from Dr. Meadows for LUE and neck venous duplex to be done STAT. Notified Elicia in vascular lab of order. Relayed to primary nurse Josue.
[2020-08-05] MEDS: Neomycin Sulfate 500mg Tab ORAL SCH ×3 (11:39→20:43)
--- NOTE | 2020-08-05 12:35 | Diagnostic Imaging Report ---
Indication: Right arm venous thrombosis, evaluation of patency of the left arm veins Technique: Grayscale and duplex images of the left upper extremity veins Comparison: 07/20/2020 also left upper extremity venogram dated 08/27/2019 Findings: On the left, grayscale and duplex images demonstrate no evidence of intraluminal thrombus. Normal phasic Doppler waveforms and normal compressibility. Impression: No evidence of peripheral left upper extremity venous thrombosis. 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 This is too deep for Doppler interrogation and is therefore not visible on the current exam
[2020-08-05] MEDS ORDERED: Lidocaine 2% 20mg/ml/Epi 0.005mg/ml 20ml vial INJ PRN (13:00)
[2020-08-05] MEDS ORDERED: Heparin1,000 units/500ml Premix(Conc:2 units/ml) INJ PRN (13:00)
[2020-08-05] MEDS ORDERED: Omnipaque-300 100ml vial INJ PRN (13:15)
--- NOTE | 2020-08-05 13:40 | NUR ---
NURSE NOTES: Patient left for PICC line placement in stable condition.
--- NOTE | 2020-08-05 15:33 | Anethesia Preoperative Eval ---
Anesthesia Pre-op PMH/ROS General Date of Evaluation: Aug 05, 2020 Time of Evaluation: 15:33 Anesthesiologist: pj ASA Score: ASA 3 Mallampati Score Class I : Soft palate, uvula, fauces, pillars visible Class II: Soft palate, uvula, fauces visible Class III: Soft palate, base of uvula visible Class IV: Only hard plate visible Mallampati Classification: Class II Surgeon: Dori Diagnosis: Brantley Pouch Malfunction Surgical Procedure: Revision of Brantley Pouch Anesthesia History: none Family History: no anesthesia problems Allergies: Coded Allergies: CEFEPIME (Verified Adverse Reaction, Severe, 08/05/20) causes low platlets ADHESIVE TAPE (Verified Adverse Reaction, Intermediate, Rash, 08/27/19) CLEAR TAPE Medications: see eMAR Patient NPO?: Yes Past Medical History Cardiovascular: Reports: CAD; Denies: HTN, TN, valve dz, arrhythmia, other Pulmonary: Denies: asthma, COPD, MISAEL, other Gastrointestinal/Genitourinary: Denies: GERD, CRI, ESRD, other Neurologic/Psychiatric: Reports: depression/anxiety; Denies: dementia, CVA, TIA, other Endocrine: Denies: DM, hypothyroidism, steroids, other HEENT: Denies: cataract (L), cataract (R), glaucoma, ALUTIIQ (L), ALUTIIQ (R), other Hematology/Immune: Reports: anemia; Denies: DVT, bleeding disorder, other Musculoskeletal/Integumentary: Denies: OA, RA, DJD, DDD, edema, other PSxH Narrative: 1. Proctocolectomy and Kock pouch in 1978. 2. Laparotomy for small-bowel obstruction in 2000. 3. Laparotomy with creation of a new valve and stoma with preservation of the Kock pouch, August 28, 2019. 4. Laparotomy for severe high-grade partial small-bowel obstruction with small-bowel resection and release of small chronic intra-abdominal abscess with temporary catheter gastrostomy, April 29, 2020. Anesthesia Pre-op Phys. Exam Physician Exam Last Vital Signs Date Time Temp Pulse Resp B/P (MAP) Pulse Ox O2 Delivery O2 Flow Rate FiO2 08/05/20 15:01 77 11 89/48 (62) 98 08/05/20 12:00 98.2 08/05/20 09:00 Room Air 08/04/20 12:50 3 Constitutional: NAD Neurologic: CN 2-12 intact Cardiovascular: RRR Respiratory: CTA Gastrointestinal: S/NT/ND Airway Exam Mallampati Classification 2 Mallampati Score: Class II ROM: full Dentures: no upper, no lower Anesthesia Pre-op A/P Labs Hematology Test 08/05/20 05:10 White Blood Count 4.9 K/UL (4.8-10.8) Red Blood Count 3.96 M/UL (4.20-5.40) L Hemoglobin 12.4 G/DL (12.0-16.0) Hematocrit 36.8 % (37.0-47.0) L Mean Corpuscular Volume 93 FL (80-99) Mean Corpuscular Hemoglobin 31.2 PG (27.0-31.0) H Mean Corpuscular Hemoglobin Concent 33.6 G/DL (32.0-36.0) Red Cell Distribution Width 11.6 % (11.6-14.8) Platelet Count 212 K/UL (150-450) Mean Platelet Volume 5.3 FL (6.5-10.1) L Neutrophils (%) (Auto) 64.8 % (45.0-75.0) Lymphocytes (%) (Auto) 19.8 % (20.0-45.0) L Monocytes (%) (Auto) 9.0 % (1.0-10.0) Eosinophils (%) (Auto) 0.1 % (0.0-3.0) Basophils (%) (Auto) 6.3 % (0.0-2.0) H Chemistry Test 08/05/20 05:10 Sodium Level 135 MMOL/L (136-145) L Potassium Level 5.4 MMOL/L (3.5-5.1) H Chloride Level 99 MMOL/L (98-107) Carbon Dioxide Level 23 MMOL/L (21-32) Anion Gap 13 mmol/L (5-15) Blood Urea Nitrogen 8 mg/dL (7-18) Creatinine 1.2 MG/DL (0.55-1.30) Estimat Glomerular Filtration Rate 44.5 mL/min (>60) Glucose Level 76 MG/DL (74-106) Calcium Level 8.9 MG/DL (8.5-10.1) Phosphorus Level 4.1 MG/DL (2.5-4.9) Magnesium Level 1.4 MG/DL (1.8-2.4) L Total Bilirubin 0.3 MG/DL (0.2-1.0) Aspartate Amino Transf (AST/SGOT) 17 U/L (15-37) Alanine Aminotransferase (ALT/SGPT) 16 U/L (12-78) Alkaline Phosphatase 87 U/L (46-116) Total Protein 6.1 G/DL (6.4-8.2) L Albumin 2.9 G/DL (3.4-5.0) L Globulin 3.2 g/dL Albumin/Globulin Ratio 0.9 (1.0-2.7) L Studies Pre-op Studies: EKG - SR Risk Assessment & Plan Assessment: reassess in am Plan: General Status Change Before Surgery: Taylor Alcala CRNA Aug 05, 2020 15:33
--- NOTE | 2020-08-05 15:50 | NUR ---
CASE MANAGEMENT:REVIEW SI;ENTEROSTOMY MALFUNCTION. 98.6 86 11 89/48 98% ON RA NA 135 K+ 5.4 MAG 1.4 ALB 2.9 IS;LEVOFLOXACIN IV ONCE ERYTHROMYCIN PO TID NEOMYCIN PO TID MAG SULFATE IV FLAGYL PO Q6 MOBIC PO QD ASA PO QD PROTONIX PO QD MED SURG STATUS DCP;FROM HOME PLAN; KOCK POUCH STOMA REVISION W/POSSIBLE LAPAROTOMY
--- NOTE | 2020-08-05 17:06 | Pre-Procedure Note/Attestation ---
Pre-Procedure Note/Attestation Complete Prior to Procedure Planned Procedure: not applicable Procedure Narrative: tunneled CV catheter Indications for Procedure Pre-Operative Diagnosis: needs TPN Attestation I attest that I discussed the nature of the procedure; its benefits; risks and complications; and alternatives (and the risks and benefits of such alternatives), prior to the procedure, with the patient (or the patient's legal small business representative). I attest that, if there was a reasonable possibility of needing a blood transfusion, the patient (or the patient's legal small business representative) was given the [facility] standardized written summary, pursuant to the Will Brandon Blood Safety Act ([place] Health and Safety Code # 1645, as amended). I attest that I re-evaluated the patient just prior to the surgery and that there has been no change in the patient's H&P, except as documented below: Yonatan Weaver MD Aug 05, 2020 17:06
--- NOTE | 2020-08-05 17:07 | Brief Operative Note ---
Immediate Post Operative Note Operative Note Pre-op Diagnosis: needs TPN Procedure: tunneled CV line Post-op Diagnosis: same as pre-op Surgeon: Holli Sands Anesthesia: local Specimen: none Complications: none Fluids: none Implant(s) used?: No Yonatan Sands MD Aug 05, 2020 17:07
--- NOTE | 2020-08-05 18:00 | NUR ---
NURSE NOTES: Total urine output: 1400 total ileo output: +420 Patient underwent central line placement and site is on right chest. Ports are patent and asymptomatic. Patient was able to ambulate in her room. One dose of norco given for pain in the afternoon. Patient was encouraged in increase caloric intake and she had ensure x2 today.
[2020-08-05] MEDS: HYDROcodone/Acetamin 5/325 tab ORAL PRN (18:16)
[2020-08-05] MEDS ORDERED: Dextrose 10% 1,000 ML IV PRN (20:00)
--- NOTE | 2020-08-05 20:03 | NUR ---
NURSES NOTE: Pt in bed, A/OX4, denies pain currently. No outward s/s of distress noted. Breathing pattern is even and unlabored on RA. Central venous catheter place today, R chest. Dressing to be changed tonight due to scant bleeding. TPN to be started 1999. IVF fluids infusing without incident. RLQ ileo in place, continues to be on intermittent medium suction. Dressing, abdomen, is clean dry intact. Bedside commode in place. Skin is clear. All due medications will be administered. Bed at lowest level, call light within reach. Pt will continue to be monitored.
[2020-08-05] MEDS: Atorvastatin 20mg tab ORAL SCH (20:43)
[2020-08-05] MEDS: Fat Emulsion Iv 20% 216 ML in Tpn 1,584 ML IV SCH (20:44)
[2020-08-05] MEDS: Cyclobenzaprine 10mg Tab ORAL PRN (20:47)
[2020-08-05] MEDS: Simethicone 80mg tab ORAL PRN (20:49)
[2020-08-05] MEDS ORDERED: Fat Emulsion Iv 20% 250 ML IV SCH (21:00)
--- NOTE | 2020-08-05 22:08 | Diagnostic Imaging Report ---
Indication: Needs long-term central venous access Technique: Prior imaging studies reviewed. Informed consent obtained prior to commencement of procedure. Procedural timeout performed. Attention initially turned to the left arm, which previously demonstrated a high-grade stenosis of the subclavian vein, in the hopes of obtaining access the PICC despite this. Total sterile technique, including sterile gloves and hand hygiene, hat, mask, sterile gown, large sterile drape, and preparation with 2% chlorhexidine utilized. Ultrasound reveals patent compressible left brachial vein. Real-time needle visualization was used as the needle entered the brachial vein. 0.018 guidewire inserted, followed by insertion of 4 Chadian micropuncture introducer, which was used to insert a 0.035 hydrophilic guidewire. A Kumpe catheter was then inserted, and a central venogram was performed. 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 Attempts made at crossing the occlusion using a hydrophilic guidewire and Kumpe catheter, unsuccessful. The catheter was removed and pressure held until hemostasis was achieved. Attention then turned to the right neck. Total sterile technique, including sterile gloves and hand hygiene, hat, mask, sterile gown, large sterile drape, and preparation with 2% chlorhexidine utilized. Local anesthesia with 1% lidocaine. Ultrasound reveals patent compressible right internal jugular vein. Using real-time ultrasound visualization of the needle, the right internal jugular vein was punctured using 21-gauge micropuncture needle, passage 21 8 guidewire. This was used to measure the appropriate catheter length. 4 Chadian micropuncture introducer inserted. This was left in situ and the guidewire was removed. The intended subcutaneous tunnel was then anesthetized, and a chest are without any was made. The tunneling device was used to pull a 5 Chadian Bard central dual-lumen PICC with a cuff through the tunnel. This was cut to the appropriate length based on earlier measurement The neck introducer was used to direct a guidewire into the inferior vena cava. A peel-away sheath was inserted, and the catheter was inserted into the peel-away sheath. The peel-away sheath was removed. The catheter was fixed to the skin. Completion radiograph demonstrates satisfactory catheter tip position in the downstream superior vena cava. This was deemed acceptable. The patient tolerated the procedure well, without immediate complication. Total fluoroscopy time 27 seconds. Total dose area product [id number] [id number] Number of images: One Comparison: none Findings: As above Impression: Successful insertion of tunneled central venous catheter, as described
[2020-08-05] MEDS: TraZODone 100mg tab ORAL SCH (22:20)
[2020-08-06] VITALS (15 sets, daily range): BP systolic 107–145; BP diastolic 56–85
[2020-08-06] MEDS: Ampicillin/Sulbactam Sod 3 GM in NS 110 ML IV SCH ×5 (00:30→23:40)
[2020-08-06] MEDS: NovoLOG Insulin Flexpen SUBQ SCH ×4 (00:45→17:38)
[2020-08-06 05:32] LABS: BASOPHILS % (AUTO) 0.8 % (0.0-2.0); EOSINOPHILS % (AUTO) 0.1 % (0.0-3.0); HEMATOCRIT 31.3 % (37.0-47.0); HEMOGLOBIN 10.9 G/DL (12.0-16.0); LYMPHOCYTES % (AUTO) 13.3 % (20.0-45.0); MEAN CORPUSCULAR VOLUME 90 FL (80-99); MONOCYTES % (AUTO) 8.3 % (1.0-10.0); NEUTROPHILS % (AUTO) 77.5 % (45.0-75.0); PLATELET COUNT 204 K/UL (150-450); RED BLOOD COUNT 3.48 M/UL (4.20-5.40); RED CELL DISTRIBUTION WIDTH 11.1 % (11.6-14.8); WHITE BLOOD COUNT 5.8 K/UL (4.8-10.8)
[2020-08-06 05:46] LABS: ALBUMIN 2.6 G/DL (3.4-5.0); ALBUMIN/GLOBULIN RATIO 0.9 (1.0-2.7); BILIRUBIN,TOTAL 0.3 MG/DL (0.2-1.0); CALCIUM 8.1 MG/DL (8.5-10.1); PHOSPHORUS 3.6 MG/DL (2.5-4.9); POTASSIUM 4.6 MMOL/L (3.5-5.1)
--- NOTE | 2020-08-06 07:24 | NUR ---
NURSE NOTES: Report received from Rosmery TRAMMELL, rounds made. Patient sleeping, no distress on RA. Patient NPO since midnight. RUC central line with TPN at 75 ml/hr and NS at 10 ml/hr, dressing CDI (tegederm noted to right clavicle, CDI, slight purple bruising to skin). ILIR saline lock in place, site asymptomatic. Abdominal dressing CDI, RLA, Moeller catheter in place, to medium intermittent suction, brown clear output noted. Bilateral SCDs on. Plans for OR today. Will complete pre-op checklist. Call light in reach, bed in lowest position, will continue to monitor.
--- NOTE | 2020-08-06 07:48 | NUR ---
NURSE HAND-OFF: Important Events on Shift:[Surgery planned 08/06 noon - Dr. Meadows. Consent and blood transfusion form filled out.] Patient Status: [Stable] Diet: [NPO] Pending Orders: [NONE] Pending Results/Labs:[NONE] Pending MD notification:[NONE] Latest Vital Signs: Temperature 97.9 , Pulse 75 , B/P 111 /66 , Respiratory Rate 18 , O2 SAT 97 , Room Air, O2 Flow Rate 3 . Vital Sign Comment: [WNL] Latest Henry Fall Score: 35 Fall Risk: Medium Risk Safety Measures: Call light Within Reach, Bed Alarm , Side Rails Side Rails x2, Bed position Low and Locked. Fall Precautions: Yellow Socks Door Sign Patient Fall Education Report given to [VALERI MARINO].
--- NOTE | 2020-08-06 08:33 | Pre-Procedure Note/Attestation ---
Pre-Procedure Note/Attestation Complete Prior to Procedure Planned Procedure: not applicable Procedure Narrative: revision of Kock pouch and stoma Indications for Procedure Pre-Operative Diagnosis: Malfunctioning Kock pouch with inability to intubate Attestation I attest that I discussed the nature of the procedure; its benefits; risks and complications; and alternatives (and the risks and benefits of such alternatives), prior to the procedure, with the patient (or the patient's legal tax compliance representative). I attest that, if there was a reasonable possibility of needing a blood transfusion, the patient (or the patient's legal tax compliance representative) was given the [facility] standardized written summary, pursuant to the Will Bode Blood Safety Act ([place] Health and Safety Code # 1645, as amended). I attest that I re-evaluated the patient just prior to the surgery and that there has been no change in the patient's H&P, except as documented below:none Lalo Meadows MD Aug 06, 2020 08:33
--- NOTE | 2020-08-06 09:54 | NUR ---
PT NOTE Attempted to see patient for PT treatment. Patient declining to participate with PT due to pending surgery. Zulema TRAMMELL notified, will follow.
[2020-08-06] MEDS ORDERED: Heparin 5000 units/ml inj SUBQ SCH (10:00)
[2020-08-06] MEDS: BuPROPion SR 100mg tab ORAL SCH ×2 (10:02→17:39)
[2020-08-06] MEDS: HYDROcodone/Acetamin 5/325 tab ORAL PRN (10:03)
[2020-08-06] MEDS: Meloxicam 15 MG TAB ORAL SCH (10:04)
[2020-08-06] MEDS: Citalopram Hydrobromide 10mg Tab ORAL SCH (10:04)
[2020-08-06] MEDS: MYRBETRIQ 50 MG ORAL SCH (10:05)
[2020-08-06] MEDS ORDERED: Rocuronium Bromide 50mg/5ml Inj IV ONE (10:08)
--- NOTE | 2020-08-06 11:38 | NUR ---
NURSE NOTES: Patient sent down to OR via bed on RA, in stable condition. Patient verified with ID bracelet, chart and verbally. TPN at 75 ml/hr and NS 10 ml/hr remain in place, infusing on IV pump to [facility] central line. RLA ileostomy connected to drainage bag to gravity. Pre-op checklist completed. Unasyn/Flagyl IVPB sent down with chart (consent and blood consent signed/included.) Addendum: 08/06/20 at 1201 by Zulema Potter RN Heparin SQ x1 administered as ordered, see eMAR.
[2020-08-06] MEDS ORDERED: Bacitracin 50000 Units Vial ONE (11:41)
[2020-08-06] MEDS ORDERED: NeoSporin Gu Irrig 1ml Amp IRRIG ONE (11:41)
[2020-08-06] MEDS ORDERED: Midazolam 2mg/2ml Inj ONE (11:59)
[2020-08-06] MEDS ORDERED: Lidocaine 1% MPF 10mg/ml 5ml ONE (11:59)
[2020-08-06] MEDS ORDERED: fentaNYL 100 mcg/2 mL IV ONE (11:59)
[2020-08-06] MEDS ORDERED: Ampicillin/Sulbactam Sod 3 GM in NS 110 ML IV SCH (12:00)
[2020-08-06] MEDS ORDERED: Sterile Water Irrig 1000ml IRRIG ONE (12:00)
[2020-08-06] MEDS ORDERED: LR 1000ml ONE (12:00)
[2020-08-06] MEDS ORDERED: NS Irrig 1000ml ONE (12:00)
--- NOTE | 2020-08-06 12:12 | General Progress Note ---
Subjective ROS Limited/Unobtainable: Yes Allergies: Coded Allergies: CEFEPIME (Verified Adverse Reaction, Severe, 08/05/20) causes low platlets ADHESIVE TAPE (Verified Adverse Reaction, Intermediate, Rash, 08/27/19) CLEAR TAPE Objective Last 24 Hour Vital Signs Date Time Temp Pulse Resp B/P (MAP) Pulse Ox O2 Delivery O2 Flow Rate FiO2 08/06/20 11:33 97.7 79 16 110/59 (76) 96 08/06/20 10:00 97.9 77 18 117/56 (76) 95 08/06/20 00:00 97.9 75 18 111/66 (81) 97 08/05/20 21:00 Room Air 08/05/20 20:00 98.4 88 18 110/70 (83) 96 08/05/20 18:46 98.2 08/05/20 16:00 98.5 81 17 127/67 (87) 99 08/05/20 15:22 86 20 95/49 (64) 99 08/05/20 15:17 82 19 97/39 (58) 98 08/05/20 15:12 80 17 97/38 (57) 99 08/05/20 15:07 77 11 89/48 (62) 98 08/05/20 15:01 79 21 92/45 (61) 08/05/20 13:46 79 21 Intake and Output 08/05/20 08/06/20 19:00 07:00 Intake Total 800 ml 735 ml Output Total 1820 ml 825 ml Balance -1020 ml -90 ml Intake Oral 800 ml IV Total 735 ml Output Urine Total 1400 ml 600 ml Other 420 ml 225 ml # Voids 4 1 Laboratory Tests 08/06/20 00:38: POC Whole Blood Glucose 144H 08/06/20 04:45: White Blood Count 5.8, Red Blood Count 3.48L, Hemoglobin 10.9L, Hematocrit 31.3L , Mean Corpuscular Volume 90, Mean Corpuscular Hemoglobin 31.3H, Mean Corpuscular Hemoglobin Concent 34.8, Red Cell Distribution Width 11.1L, Platelet Count 204, Mean Platelet Volume 6.0L, Neutrophils (%) (Auto) 77.5H, Lymphocytes (%) (Auto) 13.3L, Monocytes (%) (Auto) 8.3, Eosinophils (%) (Auto) 0.1, Basophils (%) (Auto) 0.8, Sodium Level 136, Potassium Level 4.6, Chloride Level 102, Carbon Dioxide Level 28, Anion Gap 6, Blood Urea Nitrogen 13, Creatinine 1.0, Estimat Glomerular Filtration Rate 55.0, Glucose Level 120H, Calcium Level 8.1L, Phosphorus Level 3.6, Magnesium Level 1.9, Total Bilirubin 0.3, Aspartate Amino Transf (AST/SGOT) 16, Alanine Aminotransferase (ALT/SGPT) 14, Alkaline Phosphatase 71, Total Protein 5.5L, Albumin 2.6L, Globulin 2.9, Albumin/Globulin Ratio 0.9L 08/06/20 05:37: POC Whole Blood Glucose 106 Height (Feet): 5 Height (Inches): 5.00 Weight (Pounds): 126 General Appearance: no apparent distress EENT: normal ENT inspection Neck: supple Cardiovascular: normal rate Respiratory/Chest: decreased breath sounds Abdomen: normal bowel sounds, non tender, soft Extremities: non-tender Assessment/Plan Assessment/Plan: Malfunctioning Kock pouch with 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
[2020-08-06] MEDS ORDERED: LR 1000ml 1,000 ML IVLG SCH (13:15)
[2020-08-06] MEDS ORDERED: Hydromorphone 0.5mg/0.5ml inj IVP PRN (13:15)
[2020-08-06] MEDS ORDERED: LORazepam Inj 2mg/ml 1ml IV PRN (13:15)
[2020-08-06] MEDS ORDERED: fentaNYL 100 mcg/2 mL IV PRN (13:15)
[2020-08-06] MEDS ORDERED: Midazolam 2mg/2ml Inj IVP PRN (13:15)
[2020-08-06] MEDS ORDERED: DiphenhydrAMINE 50mg/ml Inj IVP PRN ×2 (13:15→14:45)
[2020-08-06] MEDS ORDERED: Surgicel 4in x 8in TOPIC ONE (14:00)
[2020-08-06] MEDS ORDERED: Metoclopramide 10mg/2ml Inj ONE (14:37)
[2020-08-06] MEDS ORDERED: PCA Education Pamphlet MISC ONE (14:45)
[2020-08-06] MEDS ORDERED: Naloxone 0.4mg/ml Inj IVP PRN (14:45)
[2020-08-06] MEDS ORDERED: Rate Change PCA 1 Each MISC PRN (14:45)
--- NOTE | 2020-08-06 14:49 | Immediate Post-Op Evaluation ---
Immediate Post-Op Evalulation Immediate Post-Op Evalulation Procedure: revision madrigal pouch Date of Evaluation: Aug 06, 2020 Time of Evaluation: 14:49 IV Fluids: 2L Blood Products: 0 Estimated Blood Loss: 100 Urinary Output: 300 Blood Pressure Systolic: 119 Blood Pressure Diastolic: 61 Pulse Rate: 73 Respiratory Rate: 16 O2 Sat by Pulse Oximetry: 98 Temperature (Fahrenheit): 98.4 Pain Score (1-10): 0 Nausea: No Vomiting: No Complications 0 Patient Status: awake, reacts, patent, none Hydration Status: adequate Drug: unasyn and flagyl Given Within 1 Hr of Incision: Yes Yaneth Hampton MD Aug 06, 2020 14:48
--- NOTE | 2020-08-06 14:53 | Brief Operative Note ---
Immediate Post Operative Note Operative Note Pre-op Diagnosis: Malfunctioning Kock pouch with inability to intubate Procedure: Resection of failed Kock Pouch with creation of Lissette ileostomy Post-op Diagnosis: failed Kock pouch Post-op Diagnosis: same as pre-op Findings: consistent w/pre-op dx studies Surgeon: char[place] [employer] Instructor: antoinette Anesthesiologist: aury Anesthesia: general Specimen: yes - Kock pouch, bowel segment Complications: none Condition: stable Fluids: see anesthesia record Estimated Blood Loss: volume - 100cc Drains: SAMARA Implant(s) used?: No Lalo Meadows MD Aug 06, 2020 14:53
[2020-08-06] MEDS ORDERED: LORazepam 1mg tab SL PRN (15:00)
[2020-08-06] MEDS ORDERED: PCA HYDROmorphone 1mg/ml 30 ML IV PRN (15:44)
[2020-08-06] MEDS ORDERED: PCA HYDROmorphone 1mg/ml 30 ML IV ONE (15:45)
--- NOTE | 2020-08-06 16:05 | NUR ---
NURSE NOTES: Patient returned from PACU via bed to 312-1 on O2 3LNC , no distress. Patient sleeping. TPN at 75 ml/hr on IV pump, BRIEF WRITER (Dilaudid) continuous 0.1 mg, bolus 0.2 mg, every 6 minutes, 6 mg lockout connected to RUC central line, dressing CDI, site asymptomatic. Right abdomen ostomy appliance in place, no output noted in bag. Left abdomen SAMARA x1, sanguineous output noted in tubing/bulb. Abdominal dressing CDI.FC in place with silk tape anchor, y/cl urine in tubing. Bilateral SCDs on. Ice chips provided. Call light/BRIEF WRITER button in reach, bed in lowest position, will continue to monitor.
[2020-08-06] MEDS: D5 1/4NS w/KCl 20mEq 1,000 ML IV SCH (16:53)
--- NOTE | 2020-08-06 17:00 | Operative Note - Dictated ---
DATE OF OPERATION: 08/06/2020 SURGEON: Lalo Meadows M.D. ADDITIONAL SURGEON: Rob Cole M.D. ANESTHESIOLOGIST: Yaneth Hampton M.D. TYPE OF ANESTHESIA: General endotracheal. PREOPERATIVE DIAGNOSES: 1. 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 2. History of ulcerative colitis. 3. Status post multiple abdominal operations. 3.1. Proctocolectomy and Kock pouch, 1978. 3.2. Laparotomy for small-bowel obstruction, 2000. 3.3. Laparotomy with creation of new valve and stoma with preservation of Kock pouch, enteroenterostomy, and revision of Kock pouch stoma in depth, August 28, 2019. 3.4. Laparotomy with small-bowel resection and release of severe high-grade partial small-bowel obstruction due to dense adhesions with finding of small chronic intra-abdominal abscess and performance of temporary catheter gastrostomy, April 29, 2020. POSTOPERATIVE DIAGNOSES: 1. 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 2. History of ulcerative colitis. 3. Status post multiple abdominal operations. 3.1. Proctocolectomy and Kock pouch, 1978. 3.2. Laparotomy for small-bowel obstruction, 2000. 3.3. Laparotomy with creation of new valve and stoma with preservation of Kock pouch, enteroenterostomy, and revision of Kock pouch stoma in depth, August 28, 2019. 3.4. Laparotomy with small-bowel resection and release of severe high-grade partial small-bowel obstruction due to dense adhesions with finding of small chronic intra-abdominal abscess and performance of temporary catheter gastrostomy, April 29, 2020. OPERATION PERFORMED: Resection of failed Kock pouch with creation of conventional Lissette ileostomy. FINDINGS: A prolapse of the Kock pouch nipple valve into the access segment, but not to the stoma, with severe dense adhesions and inability to reconstruct the Kock pouch safely. DESCRIPTION OF PROCEDURE: The patient was taken to the operating room and under general endotracheal anesthesia, with sequential compression device stockings and Busch catheter in place and having received preoperative intravenous antibiotics and subcutaneous heparin, the patient was prepped and draped in the usual fashion. I initially started with a peristomal incision, transversely oriented elliptical incision, circumscribing the stoma low in the right lower quadrant, the catheter would only enter approximately 6 cm with a sharp over 90 degrees' angle seen on preoperative endoscopies. With the peristomal dissection down into the abdominal cavity, we were still not able to get to the point where the patient's catheter would enter the pouch. Accordingly, a midline incision was reopened from umbilicus to pubis. There were dense adhesions. The pouch was mobilized from the pelvis protecting the bladder and ureters, achieving hemostasis with cautery and the Thunderbeat vessel-sealing electrosurgical device. There was some bleeding from the surface of the uterus and adnexa controlled with cautery. Unavoidable pouch enterotomies were created during the dissection and the access segment of stoma brought through into the abdomen. It now became clear that there was a prolapse of the nipple valve into the proximal access segment deviating it over 90 degrees. I felt it was not possible to safely reconstruct this pouch and had discussed this potential difficulty with the patient preoperatively. The pouch was completely mobilized. The afferent valve junction identified and the bowel divided, the mesentery taken with the Thunderbeat device and the failed Kock pouch and given off the field for pathology. The fascia was closed with continuous #0 Prolene at the Kock pouch stoma site. The end of the ileum now was quite dilated, which is natural for the afferent valve just proximal to the Kock pouch. A circular disc of skin was excised in an appropriate location in the right lower quadrant and with a cruciate incision in the fascia, a 2 fingerbreadth abdominal wall hiatus was created. The end of the small bowel was brought through and some of the dilated portion was excised. Then, the stoma was primarily matured as a Lissette ileostomy with multiple interrupted 2-0 chromic sutures with a good everted bud obtained and a straight passageway through the abdominal wall. The abdomen and pelvis had been packed and was now thoroughly irrigated, inspected, irrigated with antibiotic as well. Through a separate stab incision in the left lower quadrant, a 15 round Delta-Rodríguez was placed behind the uterus in the deep pelvis and in the retrovesical space and sutured to the skin with a 2-0 silk skin suture. The small bowel loops were still densely adherent. I felt they would not descend into the pelvis, and a drain was required to prevent accumulation of fluid and potential abscess postoperatively. After ascertaining that hemostasis was secured, the midline incision was closed in one layer with continuous #1 looped PDS. Additional antibiotic irrigation utilized and the skin incisions closed with lu. A 2.75-inch ostomy appliance was placed over the stoma. The patient tolerated the procedure well and left the operating room in stable condition. Lalo Meadows M.D. DR: PADDY JOB#: [id number] CC:
[2020-08-06] MEDS: PCA shift volume MISC SCH (19:00)
--- NOTE | 2020-08-06 19:26 | NUR ---
NURSE HAND-OFF: Important Events on Shift:OR at 1138, returned at 1605, Lissette ileostomy to right abdomen, SAMARA x1 medial abdomen, FC in place, OPTICAL COATING TECHNICIAN Dilaudid (continuous and bolus), BP only on left calf, TPN continues at 75 ml/hr, continue bedside glucose Q6H Patient Status: stable Diet: NPO Outputs: Urine: Void (750 ml) FC (100 ml) SAMARA: 45 ml Ileostomy (prior to OR) 10 ml Lissette Ileostomy (post op) 0 ml Pending Orders: Need extra appliance at bedside,see order, ambulate with assist BID starting AM 10/9, change dressing dailyPRN (dry sterile dressing) Pending Results/Labs:CBC, CMP, MG PHOS Pending MD notification:none Latest Vital Signs: Temperature 98.2 , Pulse 109 , B/P 107 /74 , Respiratory Rate 16 , O2 SAT 98 , Nasal Cannula, O2 Flow Rate 2.0 . Vital Sign Comment: none Latest Henry Fall Score: 35 Fall Risk: Medium Risk Safety Measures: Call light Within Reach, Bed Alarm , Side Rails Side Rails x2, Bed position Low and Locked. Fall Precautions: Yellow Socks Door Sign Patient Fall Education Report given to Gino TRAMMELL .
--- NOTE | 2020-08-06 19:40 | NUR ---
NURSE NOTES: received pt and report from VALERI Poole. pt alert and oriented x4 but sleepy. pt with complaint of pain. will give next scheduled breakthrough medication. central line on right subclavian noted clean dry and intact and running fluids as ordered. decker noted and draning. surgical dressing with some serosanguineous drainage. ileostomy bag noted but still with no output. plan of care discussed.
[2020-08-06] MEDS: Fat Emulsion Iv 20% 216 ML in Tpn 1,584 ML IV SCH (20:30)
--- NOTE | 2020-08-06 20:40 | NUR ---
NURSE NOTES: patient surgical dressing changed. previous dressing had little serosanguineous drainage which was coming from the inferior border of the stoma bag seal. surgical site with scant drainage and with no sign of infection. pt tolerated well. pt in no acute distress and vitals were stable. will continue to monitor dressing.
[2020-08-06] MEDS: TraZODone 100mg tab ORAL SCH (20:45)
[2020-08-06] MEDS: HYDROmorphone 1mg/ml Carpuject SUBQ PRN (21:51)
[2020-08-07] VITALS: BP 116/66
[2020-08-07 04:00] VITALS: BP 105/56
[2020-08-07] MEDS: Ampicillin/Sulbactam Sod 3 GM in NS 110 ML IV SCH ×4 (05:20→23:06)
--- NOTE | 2020-08-07 05:40 | NUR ---
NURSE NOTES: Surgical dressing changed. little to moderate serosangineous drainage accumulated on gauze adjacent to the inferior border of ileostomy drainage bag seal. surgical site clean and with no signs of infection and no drainage. pt tolerated procedure well. will endorse day shift nurse to monitor dressing.
[2020-08-07] MEDS: NovoLOG Insulin Flexpen SUBQ SCH ×5 (06:00→23:52)
--- NOTE | 2020-08-07 06:23 | NUR ---
NURSE NOTES: will endorse daily weight to day shift nurse. The weight i was obtaining while pt was lying in bed had a great discrepancy from previous weights recorded. Pt was still sleepy and in pain to get out of bed for the bed to be zeroed and the weight accurately obtained.
[2020-08-07 07:11] LABS: HEMOGLOBIN 10.5 G/DL (12.0-16.0); MEAN CORPUSCULAR VOLUME 92 FL (80-99); PLATELET COUNT 178 K/UL (150-450); RED BLOOD COUNT 3.37 M/UL (4.20-5.40); RED CELL DISTRIBUTION WIDTH 11.4 % (11.6-14.8); WHITE BLOOD COUNT 10.9 K/UL (4.8-10.8)
--- NOTE | 2020-08-07 07:18 | NUR ---
NURSE NOTES: Report received from Gino RN, rounds made. Patient sleeping, awakens easily. Respiration even/unlabored on O2 3LNC , no distress. IV D5 1/4 NS +20 KCL at 50 ml/hr, TPN at 75 ml/hr, ARC CUTTER PLASMA ARC (Dilaudid) continuous 0.1 mg, bolus 0.2 mg, every 6 minutes, 6 mg lockout connected to RUC central line, dressing CDI, site asymptomatic. Right abdomen ostomy appliance in place, no output noted in bag. Left abdomen SAMARA x1, sanguineous output noted in tubing/bulb. Abdominal dressing CDI. Abdominal pain 5/10, will provide breakthrough pain medication as needed. FC in place with silk tape anchor, y/cl urine in tubing. Bilateral SCDs on. Ice chips provided. Call light/ARC CUTTER PLASMA ARC button in reach, bed in lowest position, will continue to monitor.
[2020-08-07] MEDS: PCA shift volume MISC SCH ×2 (07:20→19:00)
[2020-08-07 07:29] LABS: ALANINE AMINOTRANSFERASE 9 U/L (12-78); ALBUMIN 2.1 G/DL (3.4-5.0); ALBUMIN/GLOBULIN RATIO 0.9 (1.0-2.7); ALKALINE PHOSPHATASE 59 U/L (46-116); ANION GAP 4 mmol/L (5-15); ASPARTATE AMINO TRANSFERASE 16 U/L (15-37); BILIRUBIN,TOTAL 0.3 MG/DL (0.2-1.0); BLOOD UREA NITROGEN 15 mg/dL (7-18); CALCIUM 7.8 MG/DL (8.5-10.1); CARBON DIOXIDE 29 MMOL/L (21-32); CHLORIDE 105 MMOL/L (98-107); CREATININE 0.9 MG/DL (0.55-1.30); PHOSPHORUS 3.6 MG/DL (2.5-4.9); POTASSIUM 4.4 MMOL/L (3.5-5.1); SODIUM 138 MMOL/L (136-145)
--- NOTE | 2020-08-07 07:29 | NUR ---
NURSE HAND-OFF: Important Events on Shift:pain management, monitor surgical dressing drainage and ileo output Patient Status: stable Diet: NPO Pending Orders: NA Pending Results/Labs:NA Pending MD notification:NA Latest Vital Signs: Temperature 99.4 , Pulse 106 , B/P 105 /56 , Respiratory Rate 16 , O2 SAT 97 , Room Air, O2 Flow Rate 2.0 . Vital Sign Comment: stable through the shift Latest Henry Fall Score: 35 Fall Risk: Medium Risk Safety Measures: Call light Within Reach, Bed Alarm , Side Rails Side Rails x2, Bed position Low and Locked. Fall Precautions: Yellow Socks Door Sign Patient Fall Education Report given to VALERI Poole.
[2020-08-07 08:00] VITALS: BP 124/75
[2020-08-07] MEDS ORDERED: Naloxone 0.4mg/ml Inj IVP PRN (08:32)
[2020-08-07] MEDS ORDERED: PCA HYDROmorphone 1mg/ml 30 ML IV PRN (08:35)
[2020-08-07] MEDS ORDERED: Rate Change PCA 1 Each MISC PRN (08:45)
--- NOTE | 2020-08-07 08:47 | General Progress Note ---
Progress Note Progress Note AVSSs with tachycardia 99-110. Comfortable with dilaudid SPOUTER. Informed and supported over removal of Kock pouch with conventional ileostomy Chest decreased expansion Cor reg rhythm Abdomen soft, mild distention, incision clean, stoma pink, some bleeding/oozing inferior aspect. 12 hours overnight: urine 450 Ileostomy - nil SAMARA 130 serosang WBC 10,900 Hgb 10.5 Mg 1.4 Albumin 2.1 Imp: Ileus Plan: NPO, TPN, continue Busch (pelvic dissection) PT mobility protocol Mg infusions F/U labs Lalo Meadows MD Aug 07, 2020 08:47
[2020-08-07] MEDS ORDERED: Sterile Water Irrig 1000ml IRRIG ONE (08:54)
[2020-08-07] MEDS: Pantoprazole Inj IVP SCH (09:20)
[2020-08-07] MEDS: BuPROPion SR 100mg tab ORAL SCH ×2 (09:21→18:33)
[2020-08-07] MEDS: Citalopram Hydrobromide 10mg Tab ORAL SCH (09:21)
[2020-08-07] MEDS: MYRBETRIQ 50 MG ORAL SCH (09:21)
[2020-08-07] MEDS: Meloxicam 15 MG TAB ORAL SCH (09:21)
--- NOTE | 2020-08-07 10:44 | General Progress Note ---
Subjective ROS Limited/Unobtainable: Yes Allergies: Coded Allergies: CEFEPIME (Verified Adverse Reaction, Severe, 08/05/20) causes low platlets ADHESIVE TAPE (Verified Adverse Reaction, Intermediate, Rash, 08/27/19) CLEAR TAPE Objective Last 24 Hour Vital Signs Date Time Temp Pulse Resp B/P (MAP) Pulse Ox O2 Delivery O2 Flow Rate FiO2 08/07/20 08:00 106 17 97 08/07/20 08:00 98.2 106 17 124/75 (91) 97 08/07/20 07:45 95 Nasal Cannula 2.0 28 08/07/20 04:00 99.4 106 16 105/56 (72) 97 08/07/20 04:00 106 16 97 08/07/20 00:00 98.2 99 16 116/66 (83) 96 08/07/20 00:00 99 16 96 08/06/20 21:00 Room Air 08/06/20 20:00 109 15 98 08/06/20 20:00 98.0 109 15 120/71 (87) 97 08/06/20 18:59 98 Nasal Cannula 2.0 28 08/06/20 17:05 98.2 109 16 107/74 (85) 98 08/06/20 16:35 98.4 105 16 110/68 (82) 99 08/06/20 16:18 22 08/06/20 16:18 97.3 08/06/20 16:05 105 16 99 08/06/20 16:05 98.0 105 16 120/66 (84) 99 08/06/20 16:03 22 08/06/20 15:55 97.3 93 24 134/65 100 Nasal Cannula 3 08/06/20 15:48 24 08/06/20 15:45 91 20 128/64 100 Nasal Cannula 3 08/06/20 15:30 87 17 129/65 100 Nasal Cannula 3 08/06/20 15:15 88 16 132/62 100 Simple Mask 6 08/06/20 15:05 82 24 142/69 100 Simple Mask 6 08/06/20 14:55 80 22 145/70 100 Simple Mask 6 08/06/20 14:50 78 24 130/85 100 Simple Mask 6 08/06/20 14:48 73 16 98 08/06/20 14:44 98.4 73 21 119/61 98 Simple Mask 6 08/06/20 11:33 97.7 79 16 110/59 (76) 96 Intake and Output 08/06/20 08/07/20 19:00 07:00 Intake Total 2765 ml 750 ml Output Total 1375 ml 580 ml Balance 1390 ml 170 ml IV Total 2725 ml 750 ml Other 40 ml Output Urine Total 1150 ml 450 ml Drainage Total 75 ml 130 ml Estimated Blood Loss 100 ml Other 50 ml 0 ml # Voids 1 Laboratory Tests 08/06/20 17:32: POC Whole Blood Glucose 166H 08/06/20 23:49: POC Whole Blood Glucose 128H 08/07/20 05:35: White Blood Count 10.9#H, Red Blood Count 3.37L, Hemoglobin 10.5L, Hematocrit 31.0L, Mean Corpuscular Volume 92, Mean Corpuscular Hemoglobin 31.2H, Mean Corpuscular Hemoglobin Concent 33.9, Red Cell Distribution Width 11.4L, Platelet Count 178, Mean Platelet Volume 6.0L, Neutrophils (%) (Auto) , Lymphocytes (%) (Auto) , Monocytes (%) (Auto) , Eosinophils (%) (Auto) , Basophils (%) (Auto) , Sodium Level 138, Potassium Level 4.4, Chloride Level 105, Carbon Dioxide Level 29, Anion Gap 4L, Blood Urea Nitrogen 15, Creatinine 0.9, Estimat Glomerular Filtration Rate > 60, Glucose Level 127H, Calcium Level 7.8L, Phosphorus Level 3.6, Magnesium Level 1.4L, Total Bilirubin 0.3, Aspartate Amino Transf (AST/SGOT) 16, Alanine Aminotransferase (ALT/SGPT) 9L, Alkaline Phosphatase 59, Total Protein 4.5L, Albumin 2.1L, Globulin 2.4, Albumin/Globulin Ratio 0.9L 08/07/20 05:47: POC Whole Blood Glucose 124H Height (Feet): 5 Height (Inches): 5.00 Weight (Pounds): 126 General Appearance: alert EENT: normal ENT inspection Neck: supple Cardiovascular: normal rate Respiratory/Chest: decreased breath sounds Abdomen: hypoactive bowel sounds, tender Extremities: non-tender Assessment/Plan Assessment/Plan: Malfunctioning Kock pouch with inability to intubate with resulting functional small-bowel obstruction s/p removal of Kock pouch with conventional ileostomy yesterday TPN/npo right arm DVT fu surg recs pain control Adrian Morrison MD Aug 07, 2020 10:44
[2020-08-07] MEDS ORDERED: DiphenhydrAMINE 50mg/ml Inj IVP PRN (10:45)
[2020-08-07] MEDS: HYDROmorphone 1mg/ml Carpuject SUBQ PRN (11:02)
[2020-08-07 12:00] VITALS: BP 135/68
[2020-08-07] MEDS: D5 1/4NS w/KCl 20mEq 1,000 ML IV SCH ×2 (12:30→18:37)
--- NOTE | 2020-08-07 13:57 | 48 Hour Post Anesthesia Eval ---
Post Anesthesia Evaluation Procedure: revision madrigal pouch Date of Evaluation: Aug 07, 2020 Time of Evaluation: 13:55 Blood Pressure Systolic: 132 0: 56 Pulse Rate: 72 Respiratory Rate: 18 Temperature (Fahrenheit): 97.6 O2 Sat by Pulse Oximetry: 98 Airway: patent Nausea: No Vomiting: No Pain Intensity: 2 Hydration Status: adequate Cardiopulmonary Status: stable Mental Status/LOC: patient returned to baseline Follow-up Care/Observations: n/a Post-Anesthesia Complications: none Follow-up care needed: N/A Julien Elias MD Aug 07, 2020 13:57
--- NOTE | 2020-08-07 14:28 | NUR ---
PT WEEKLY PROGRESS NOTE Patient underwent surgical procedure yesterday, received MD order to resume PT. Prior to the surgery patient was able to complete bed mobility with supervision, was able to transfer with SBA without an AD and was able to ambulate 200 with SBA/CGA. Currently patient requires min assist for bed mobility and for transfers with a FWW. Patient was able to take a few sidesteps with the FWW however was unable to ambulate due to pain and weakness. Patient will benefit from continued skilled inpatient PT intervention to increase strength and postural stability for improved level of functional mobility.
--- NOTE | 2020-08-07 15:11 | NUR ---
CASE MANAGEMENT: REVIEW 08/07/2020 SI:ENTEROSTOMY MALFUNCTION VS: T 97.9 HR 82 RR 18 B/P 135/68 SATS 98% ON 2L/NC LABS: WBC 10.9 GLU 127 CA 7.8 MG 1.4 ALT 9 IS:DEX W/ ELECTROLYTES IV @ 50 ML/HR FLAGYL IV Q6H UNASYN IV Q6H WELLBUTRIN PO BID TRAZODONE PO QHS MED/SURG PLAN OF CARE: Procedure: revision madrigal pouch Date of Evaluation: Aug 07, 2020
[2020-08-07 16:00] VITALS: BP 94/56
--- NOTE | 2020-08-07 19:26 | NUR ---
NURSE HAND-OFF: Important Events on Shift: Lissette Appliance changed with Dr. Meadows at 1315 (surgical gauze packed to surrounding stoma area, new stoma adhesive piece applied with bag), PT, Magnesium IV x4 bags Patient Status: stable Diet: NPO Outputs: FC: 375 ml Lissette: none SAMARA: 45 ml Pending Orders: none Pending Results/Labs:CBC CMP MG PHOS 08/08 Pending MD notification:none Latest Vital Signs: Temperature 98.0 , Pulse 97 , B/P 94 /56 , Respiratory Rate 17 , O2 SAT 98 , Room Air, O2 Flow Rate 2.0 . Vital Sign Comment: none Latest Henry Fall Score: 45 Fall Risk: High Risk Safety Measures: Call light Within Reach, Bed Alarm , Side Rails Side Rails x2, Bed position Low and Locked. Fall Precautions: Yellow Socks Door Sign Patient Fall Education Report given to Tyrell TRAMMELL.
--- NOTE | 2020-08-07 19:41 | NUR ---
NURSE NOTES: Received report from VALERI Poole. FLOW WORKER verified with AM nurse. Patient in stable condition.
[2020-08-07 20:00] VITALS: BP 95/53
[2020-08-07] MEDS: Fat Emulsion Iv 20% 216 ML in Tpn 1,584 ML IV SCH (20:15)
[2020-08-07] MEDS: Dyna-Hex 2% Top Sol 2oz TOPIC SCH (20:15)
[2020-08-07] MEDS: TraZODone 100mg tab ORAL SCH (20:16)
[2020-08-08] VITALS (7 sets, daily range): BP systolic 92–121; BP diastolic 53–60
[2020-08-08] MEDS: Ampicillin/Sulbactam Sod 3 GM in NS 110 ML IV SCH ×4 (05:02→23:07)
[2020-08-08] MEDS: NovoLOG Insulin Flexpen SUBQ SCH ×3 (05:42→17:55)
[2020-08-08 06:03] LABS: HEMATOCRIT 27.9 % (37.0-47.0); HEMOGLOBIN 9.5 G/DL (12.0-16.0); MEAN CORPUSCULAR VOLUME 92 FL (80-99); PLATELET COUNT 153 K/UL (150-450); RED BLOOD COUNT 3.03 M/UL (4.20-5.40); RED CELL DISTRIBUTION WIDTH 11.6 % (11.6-14.8); WHITE BLOOD COUNT 10.3 K/UL (4.8-10.8)
--- NOTE | 2020-08-08 06:39 | NUR ---
NURSE HAND-OFF: Important Events on Shift: Patient on CUSTOMER ENERGY SPECIALIST, urine is dark arti and very concentrated. Total UO : 375 mL. Decrease UO in comparison to post operatively. Patient appears to be slightly confused and disoriented at times, but still coherent phrases. Patient is very sleepy but easily arousable and VS WNL. Total ileo output 5mL brown thin liquid substance SAMARA 25 mL serosanguineous Patient Status: stable Diet: NPO x Ice chips and meds Pending Orders: [] Pending Results/Labs:[] Pending MD notification:[] Latest Vital Signs: Temperature 97.9 , Pulse 94 , B/P 105 /59 , Respiratory Rate 16 , O2 SAT 97 , Room Air, O2 Flow Rate 2.0 . Vital Sign Comment: [] Latest Henry Fall Score: 45 Fall Risk: High Risk Safety Measures: Call light Within Reach, Bed Alarm , Side Rails Side Rails x2, Bed position Low and Locked. Fall Precautions: Yellow Socks Door Sign Patient Fall Education Report given to Zulema TRAMMELL
[2020-08-08 06:44] LABS: ALANINE AMINOTRANSFERASE 7 U/L (12-78); ALBUMIN 1.9 G/DL (3.4-5.0); ALBUMIN/GLOBULIN RATIO 0.8 (1.0-2.7); ALKALINE PHOSPHATASE 51 U/L (46-116); ANION GAP 3 mmol/L (5-15); ASPARTATE AMINO TRANSFERASE 10 U/L (15-37); BILIRUBIN,TOTAL 0.2 MG/DL (0.2-1.0); BLOOD UREA NITROGEN 19 mg/dL (7-18); CARBON DIOXIDE 28 MMOL/L (21-32); CHLORIDE 104 MMOL/L (98-107); CREATININE 0.9 MG/DL (0.55-1.30); PHOSPHORUS 2.8 MG/DL (2.5-4.9); POTASSIUM 4.2 MMOL/L (3.5-5.1); SODIUM 135 MMOL/L (136-145)
--- NOTE | 2020-08-08 07:22 | NUR ---
NURSE NOTES: Report received from Tyrell TRAMMELL, rounds made. Patient sleeping, awakens easily. Respiration even/unlabored on O2 3LNC , no distress. IV D5 1/4 NS +20 KCL at 50 ml/hr, TPN at 75 ml/hr, ACREAGE REPORTER (Dilaudid) continuous 0.1 mg, bolus 0.2 mg, every 6 minutes, 6 mg lockout connected to RUC central line, dressing CDI, site asymptomatic. Right abdomen ostomy appliance in place, no output noted in bag. Left abdomen SAMARA x1, serosanguineous output noted in tubing/bulb. Abdominal dressing CDI. Abdominal pain 8/10, will provide breakthrough pain medication as needed. FC in place with silk tape anchor, dark arti-tea colored/cl urine in tubing. Bilateral SCDs on. Ice chips provided. Call light/ACREAGE REPORTER button in reach, bed in lowest position, will continue to monitor.
[2020-08-08] MEDS: PCA shift volume MISC SCH ×2 (07:25→19:00)
[2020-08-08] MEDS: BuPROPion SR 100mg tab ORAL SCH ×2 (08:45→17:46)
[2020-08-08] MEDS: Citalopram Hydrobromide 10mg Tab ORAL SCH (08:46)
[2020-08-08] MEDS: Meloxicam 15 MG TAB ORAL SCH (08:46)
[2020-08-08] MEDS: Pantoprazole Inj IVP SCH (08:46)
[2020-08-08] MEDS: HYDROmorphone 1mg/ml Carpuject SUBQ PRN (08:47)
[2020-08-08] MEDS: MYRBETRIQ 50 MG ORAL SCH (08:48)
[2020-08-08] MEDS ORDERED: Naloxone 0.4mg/ml Inj IVP PRN (09:10)
[2020-08-08] MEDS ORDERED: Rate Change PCA 1 Each MISC PRN (09:15)
[2020-08-08] MEDS ORDERED: Ketorolac 30mg Inj IV PRN (09:15)
[2020-08-08] MEDS ORDERED: PCA HYDROmorphone 1mg/ml 30 ML IV PRN (09:15)
--- NOTE | 2020-08-08 09:22 | General Progress Note ---
Progress Note Progress Note AVSS Mildly tachy Confused at times. Got up with PT yesterday Abdomen soft, mildly distended, incision clean, ileostomy stoma pink, no further oozing Urine 750 Ileostomy nil SAMARA 70 sang WBC 10,300 Hgb 9.5 BUN 19 Cr 0.9 Mg 1.7 albumin 1.9 Imp: Ileus Anemia - post-op blood loss, fluid retention Plan: continue npo, TPN, d/c basal infusion of GRADUATE ASSISTANT, continue Busch modify IV fluids Mg infusion f/u labs with Fe and B12, folic acid Lalo Meadows MD Aug 08, 2020 09:22
--- NOTE | 2020-08-08 11:34 | NUR ---
RD ASSESSMENT & RECOMMENDATIONS SEE CARE ACTIVITY FOR COMPLETE ASSESSMENT DAILY ESTIMATED NEEDS: Needs based on General/ 58.9kg abw 25-30 kcals/kg 5907-2017 total kcals 1-1.2 (2.0g/kg w/ surgery) g protein/kg 59-70 (118g w/ surgery) g total protein 25-30 mL/kg 5367-1590 total fluid mLs NUTRITION DIAGNOSIS: Altered GI function R/T h/o malfunctioning ileo, as evidenced by pt unable to intubate, awaiting now s/p pouch endoscopcy, on BCIR low residue diet, made NPO again for dilated loops fulid and gas filled per CT scan, pending stoma revision and possible laparotomy, NPO w/ TPN. CURRENT DIET:NPO + TPN PO DIET RECOMMENDATIONS: Diet per MD PARENTERAL NUTRITION RECOMMENDATIONS: D/AA Rate: 66 IL Rate: 9 Total Rate: 75 Volume: 1800 % Dextrose: 17 % AA: 5.3 Energy (kcals/kg): 1683 Protein (g/kg protein): 84 Nonprotein KCALS: 1348 GIR (mg CHO/kg/min): 3.2 % Fat KCALS: 27 NCP: N Ratio: 100:1 TPN Comment: - D17% w/ AA 5.3% @ 66ml/hr + 20%IL @9ml/hr-> total of 75ml/hr, all 3:1 - Start rate per MD. - TPN at goal meets 100% est needs. ADDITIONAL RECOMMENDATIONS: * Standing wt as able while ambulating for accurate CBW (04/28) standing wt of 135.8 lbs (07/16) Bed wt 130 lbs * Check BG, lytes and LFT's w/ TPN . . .
[2020-08-08] MEDS: NS w/KCl 20mEq 1000ml 1,000 ML IV SCH (12:22)
--- NOTE | 2020-08-08 16:00 | NUR ---
NURSE NOTES: Patient up with PT, dangled at bedside, stood, took a couple steps, sat in chair about 5-10 minutes, at 1115. Complete bath given. Patient tolerated well. Encouraged IS and ankle rotation. Medicated with Toradol 15 mg IV as ordered, pain improved for 10 to 4/10. Will continue to monitor.
[2020-08-08] MEDS ORDERED: Tubing IV Secondary IV ONE (17:28)
--- NOTE | 2020-08-08 19:30 | NUR ---
NURSE HAND-OFF: Important Events on Shift:Mg x2 bags, TANK INSULATOR RUBBER bolus only (continuous stopped at 0920) new Toradol 15 mg IV PRN order, Up with PT dangled, stood, steps, sat in chair for 5-10 minutes, IVF order change Patient Status: stable Diet: NPO Outputs: Urine: 400 ml SAMARA: 40 ml Ileostomy: 15 ml Pending Orders: none Pending Results/Labs:CBC CMP FOLIC IRON MG PHOS B12 08/09 Pending MD notification:none Latest Vital Signs: Temperature 98.5 , Pulse 91 , B/P 121 /55 , Respiratory Rate 18 , O2 SAT 97 , Room Air, O2 Flow Rate 2.0 . Vital Sign Comment: none Latest Henry Fall Score: 45 Fall Risk: High Risk Safety Measures: Call light Within Reach, Bed Alarm , Side Rails Side Rails x2, Bed position Low and Locked. Fall Precautions: Yellow Socks Door Sign Patient Fall Education Report given to Tyrell TRAMMELL.
--- NOTE | 2020-08-08 19:35 | NUR ---
NURSE NOTES: Received report from VALERI Poole. Patient in stable condition. Denies any pain as of the moment. In no apparent distress.
--- NOTE | 2020-08-08 19:59 | General Progress Note ---
Subjective Allergies: Coded Allergies: CEFEPIME (Verified Adverse Reaction, Severe, 08/05/20) causes low platlets ADHESIVE TAPE (Verified Adverse Reaction, Intermediate, Rash, 08/27/19) CLEAR TAPE Subjective above noted seen with RN at bedside some abdominal pain on TPN Objective Last 24 Hour Vital Signs Date Time Temp Pulse Resp B/P (MAP) Pulse Ox O2 Delivery O2 Flow Rate FiO2 08/08/20 16:00 98.4 85 18 92/53 (66) 99 08/08/20 16:00 85 18 99 08/08/20 12:00 94 16 100 08/08/20 12:00 98.1 94 16 120/60 (80) 100 08/08/20 09:20 93 16 97 08/08/20 08:00 98.6 93 16 99/54 (69) 97 08/08/20 08:00 93 16 97 08/08/20 07:00 98 Nasal Cannula 2.0 28 08/08/20 04:00 97.9 94 16 105/59 (74) 100 08/08/20 04:00 94 16 97 08/08/20 00:00 98.0 94 14 107/60 (76) 100 08/08/20 00:00 94 14 100 08/07/20 21:00 Room Air 08/07/20 20:23 97 Nasal Cannula 2.0 28 08/07/20 20:00 98.0 97 16 95/53 (67) 98 08/07/20 20:00 96 18 98 Intake and Output0 08/07/20 08/08/20 19:00 07:00 Intake Total 1275 ml Output Total 420 ml 405 ml Balance 855 ml -405 ml IV Total 1275 ml Output Urine Total 375 ml 375 ml Drainage Total 45 ml 25 ml Other 0 ml 5 ml Laboratory Tests 08/07/20 23:09: POC Whole Blood Glucose 121H 08/08/20 05:00: White Blood Count 10.3, Red Blood Count 3.03L, Hemoglobin 9.5L, Hematocrit 27.9L , Mean Corpuscular Volume 92, Mean Corpuscular Hemoglobin 31.5H, Mean Corpuscular Hemoglobin Concent 34.2, Red Cell Distribution Width 11.6, Platelet Count 153, Mean Platelet Volume 6.2L, Neutrophils (%) (Auto) , Lymphocytes (%) (Auto) , Monocytes (%) (Auto) , Eosinophils (%) (Auto) , Basophils (%) (Auto) , Differential Total Cells Counted 100, Neutrophils % (Manual) 83H, Lymphocytes % (Manual) 9L, Monocytes % (Manual) 6, Eosinophils % (Manual) 2, Basophils % (Manual) 0, Band Neutrophils 0, Platelet Estimate Adequate, Platelet Morphology Normal, Hypochromasia 1+, Sodium Level 135L, Potassium Level 4.2, Chloride Level 104, Carbon Dioxide Level 28, Anion Gap 3L, Blood Urea Nitrogen 19H, Creatinine 0.9, Estimat Glomerular Filtration Rate > 60, Glucose Level 126H, Calcium Level 8.0L, Phosphorus Level 2.8, Magnesium Level 1.7L, Total Bilirubin 0.2, Aspartate Amino Transf (AST/SGOT) 10L, Alanine Aminotransferase (ALT/SGPT) 7L, Alkaline Phosphatase 51, Total Protein 4.4L, Albumin 1.9L, Globulin 2.5, Albumin/Globulin Ratio 0.8L 08/08/20 05:11: POC Whole Blood Glucose 127H 08/08/20 12:29: POC Whole Blood Glucose 108H 08/08/20 17:49: POC Whole Blood Glucose 90 Height (Feet): 5 Height (Inches): 5.00 Weight (Pounds): 126 Objective Thin woman NCAT supple CTA RR abd soft, (+) wound and ostomy no edema Assessment/Plan Assessment/Plan: Assessment/Plan Assessment/Plan: Malfunctioning Kock pouch with inability to intubate with resulting functional small-bowel obstruction malnutrition / NPO --> on TPN s/p removal of Kock pouch with conventional ileostomy TPN/npo right arm DVT fu surg recs pain control Lacey Mcnally MD Aug 08, 2020 19:59
[2020-08-08] MEDS: Dyna-Hex 2% Top Sol 2oz TOPIC SCH (20:26)
[2020-08-08] MEDS: Fat Emulsion Iv 20% 216 ML in Tpn 1,584 ML IV SCH (20:27)
[2020-08-08] MEDS: TraZODone 100mg tab ORAL SCH (20:27)
[2020-08-09] VITALS: BP 106/51
[2020-08-09 04:00] VITALS: BP 107/54
[2020-08-09] MEDS: NS w/KCl 20mEq 1000ml 1,000 ML IV SCH ×2 (05:08→10:24)
[2020-08-09] MEDS: Ampicillin/Sulbactam Sod 3 GM in NS 110 ML IV SCH ×4 (05:09→23:03)
[2020-08-09] MEDS: NovoLOG Insulin Flexpen SUBQ SCH ×5 (06:00→23:28)
--- NOTE | 2020-08-09 06:33 | NUR ---
NURSE HAND-OFF: Important Events on Shift:Ileo output: 5 Urine 375 mL tea colored urine, SAMARA 10 mL, pain well managed with current HVAC LEAD Patient Status: stable Diet: npo X ice chips and meds Pending Orders: [] Pending Results/Labs:[] Pending MD notification:[] Latest Vital Signs: Temperature 98.2 , Pulse 97 , B/P 107 /54 , Respiratory Rate 18 , O2 SAT 96 , Room Air, O2 Flow Rate 2.0 . Vital Sign Comment: [] Latest Henry Fall Score: 45 Fall Risk: High Risk Safety Measures: Call light Within Reach, Bed Alarm , Side Rails Side Rails x2, Bed position Low and Locked. Fall Precautions: Yellow Socks Door Sign Patient Fall Education Report given to Zulema TRAMMELL . Addendum: 08/09/20 at 0654 by Eri Guerrero RN Report given to Jasper TRAMMELL
--- NOTE | 2020-08-09 07:15 | NUR ---
NURSE NOTES: Report received from Tyrell TRAMMELL, rounds made. Patient sleeping, awakens easily. Respiration even/unlabored on O2 3LNC , no distress. IV NS +20 KCL at 50 ml/hr, TPN at 75 ml/hr, CIRCUIT COURT JUDGE (Dilaudid) bolus 0.2 mg, every 6 minutes, 6 mg lockout connected to RUC central line, dressing CDI, site asymptomatic. Right abdomen ostomy appliance in place, scant amount of cream/clear output noted in bag. Left abdomen SAMARA x1, serosanguineous output noted in tubing/bulb. Abdominal dressing CDI. Abdominal pain 10, will provide breakthrough pain medication as needed. FC in place with silk tape anchor, dark arti-tea colored/cl urine in tubing. Bilateral SCDs on. Ice chips provided. Call light/CIRCUIT COURT JUDGE button in reach, bed in lowest position, will continue to monitor.
--- NOTE | 2020-08-09 07:24 | NUR ---
NURSE NOTES: Report given to Zulema TRAMMELL
[2020-08-09] MEDS: PCA shift volume MISC SCH ×2 (07:25→19:22)
[2020-08-09 07:28] LABS: BASOPHILS % (AUTO) 0.9 % (0.0-2.0); EOSINOPHILS % (AUTO) 0.1 % (0.0-3.0); HEMATOCRIT 25.4 % (37.0-47.0); HEMOGLOBIN 8.8 G/DL (12.0-16.0); LYMPHOCYTES % (AUTO) 10.9 % (20.0-45.0); MEAN CORPUSCULAR VOLUME 91 FL (80-99); MONOCYTES % (AUTO) 8.5 % (1.0-10.0); NEUTROPHILS % (AUTO) 79.7 % (45.0-75.0); PLATELET COUNT 135 K/UL (150-450); RED BLOOD COUNT 2.79 M/UL (4.20-5.40); RED CELL DISTRIBUTION WIDTH 11.5 % (11.6-14.8); WHITE BLOOD COUNT 6.4 K/UL (4.8-10.8)
[2020-08-09 07:42] LABS: ALANINE AMINOTRANSFERASE < 6 U/L (12-78); ALBUMIN 1.6 G/DL (3.4-5.0); ALBUMIN/GLOBULIN RATIO 0.7 (1.0-2.7); ALKALINE PHOSPHATASE 48 U/L (46-116); ANION GAP 2 mmol/L (5-15); ASPARTATE AMINO TRANSFERASE 12 U/L (15-37); BILIRUBIN,TOTAL 0.3 MG/DL (0.2-1.0); BLOOD UREA NITROGEN 13 mg/dL (7-18); CALCIUM 7.6 MG/DL (8.5-10.1); CARBON DIOXIDE 29 MMOL/L (21-32); CHLORIDE 105 MMOL/L (98-107); CREATININE 0.8 MG/DL (0.55-1.30); PHOSPHORUS 2.9 MG/DL (2.5-4.9); POTASSIUM 4.3 MMOL/L (3.5-5.1); SODIUM 136 MMOL/L (136-145)
[2020-08-09 08:00] VITALS: BP 116/63
[2020-08-09 08:37] LABS: % IRON SATURATION 13 % (15-50); IRON 13 ug/dL (50-175); TOTAL IRON BINDING CAPACITY 101 ug/dL (250-450)
[2020-08-09] MEDS: MYRBETRIQ 50 MG ORAL SCH (08:40)
[2020-08-09] MEDS: Pantoprazole Inj IVP SCH (08:41)
[2020-08-09] MEDS: Meloxicam 15 MG TAB ORAL SCH (08:41)
[2020-08-09] MEDS: BuPROPion SR 100mg tab ORAL SCH ×2 (08:41→18:20)
[2020-08-09] MEDS: Citalopram Hydrobromide 10mg Tab ORAL SCH (08:41)
[2020-08-09] MEDS: Simethicone 80mg tab ORAL PRN (08:49)
[2020-08-09] MEDS ORDERED: PCA HYDROmorphone 1mg/ml 30 ML IV PRN (09:15)
[2020-08-09] MEDS ORDERED: Rate Change PCA 1 Each MISC PRN (09:30)
[2020-08-09] MEDS ORDERED: Vitamin B12 1000mcg/ml Inj IM SCH (09:30)
--- NOTE | 2020-08-09 09:39 | General Progress Note ---
Progress Note Progress Note AVSS c/o incisional pain. Ambulated in room yesterday Abdomen soft, mild distention, incision clean, stoma pink Urine 775 Ileostomy nil SAMARA drain 50cc WBC 6400 Hgb 8.8 Platelets 135,000 BUN 13 Cr 0.8 Iron 12 B12 428 folic acid 10.8 Imp: Ileus Severe iron deficiency with anemia Plan; continue npo, TPN, Busch Lasix 20mg IV x 1 Venofer, B12 and folic acid replacement Lalo Meadows MD Aug 09, 2020 09:39
[2020-08-09] MEDS ORDERED: DiphenhydrAMINE 50mg/ml Inj IVP PRN (10:45)
[2020-08-09 12:00] VITALS: BP 128/88
--- NOTE | 2020-08-09 13:15 | NUR ---
NURSE NOTES: Dr. Meadows notified of hiccups and urine output during rounds, see orders. Administered Lasix 20 mg IVP x1 this AM as ordered, color/urine output improved, color is y/cl. Administered Mylicon this AM and 1 teaspoon sugar for hiccups, improved, will continue to monitor. Administered Vitamin B12 to left deltoid this AM, reassessed injection site, remains asymptomatic.
[2020-08-09 16:00] VITALS: BP_SYST 115; BP_DIAS 54; BP_DIAS 64
[2020-08-09] MEDS: HYDROmorphone 1mg/ml Carpuject SUBQ PRN ×2 (18:12→23:29)
--- NOTE | 2020-08-09 19:19 | NUR ---
NURSE HAND-OFF: Important Events on Shift:Teaspoon of sugar given x2 for hiccups, B12 injection (left deltoid) given, Lasix IVx1 given, IV rate 25 ml/hr Patient Status: stable Diet: NPO Outputs: FC: 1700 ml Lissette: 15 ml SAMARA: 25 ml Pending Orders: none Pending Results/Labs:CBC CMP MG PHOS 08/10 Pending MD notification:none Latest Vital Signs: Temperature 98.3 , Pulse 94 , B/P 115 /54 , Respiratory Rate 16 , O2 SAT 97 , Room Air, O2 Flow Rate 2.0 . Vital Sign Comment: none Latest Henry Fall Score: 45 Fall Risk: High Risk Safety Measures: Call light Within Reach, Bed Alarm , Side Rails Side Rails x2, Bed position Low and Locked. Fall Precautions: Yellow Socks Door Sign Patient Fall Education Report given to Tyrell TRAMMELL.
--- NOTE | 2020-08-09 19:46 | General Progress Note ---
Subjective Allergies: Coded Allergies: CEFEPIME (Verified Adverse Reaction, Severe, 08/05/20) causes low platlets ADHESIVE TAPE (Verified Adverse Reaction, Intermediate, Rash, 08/27/19) CLEAR TAPE Subjective above noted some abdominal pain on TPN Objective Last 24 Hour Vital Signs Date Time Temp Pulse Resp B/P (MAP) Pulse Ox O2 Delivery O2 Flow Rate FiO2 08/09/20 16:00 94 16 97 08/09/20 16:00 98.3 94 16 115/64 (81) 97 08/09/20 12:00 95 16 97 08/09/20 12:00 98.3 95 16 128/88 (101) 97 08/09/20 09:00 Room Air 08/09/20 08:00 98.9 95 16 116/63 (80) 98 08/09/20 08:00 95 16 98 08/09/20 07:00 98 Room Air 21 08/09/20 04:00 98.2 97 18 107/54 (71) 96 08/09/20 04:00 97 18 96 08/09/20 00:00 98.6 92 18 106/51 (69) 96 08/09/20 00:00 92 18 96 08/08/20 21:00 Room Air 08/08/20 20:04 97 Nasal Cannula 2.0 28 08/08/20 20:00 91 16 96 08/08/20 20:00 98.5 91 18 121/55 (77) 96 Intake and Output 08/08/20 08/09/20 19:00 07:00 Intake Total 1450 ml 125 ml Output Total 455 ml 390 ml Balance 995 ml -265 ml IV Total 1450 ml 125 ml Output Urine Total 400 ml 375 ml Drainage Total 40 ml 10 ml Other 15 ml 5 ml Laboratory Tests 08/08/20 23:10: POC Whole Blood Glucose 101 08/09/20 05:20: White Blood Count 6.4, Red Blood Count 2.79L, Hemoglobin 8.8L, Hematocrit 25.4L, Mean Corpuscular Volume 91, Mean Corpuscular Hemoglobin 31.4H, Mean Corpuscular Hemoglobin Concent 34.5, Red Cell Distribution Width 11.5L, Platelet Count 135L, Mean Platelet Volume 6.1L, Neutrophils (%) (Auto) 79.7H, Lymphocytes (%) (Auto) 10.9L, Monocytes (%) (Auto) 8.5, Eosinophils (%) (Auto) 0.1, Basophils (%) (Auto) 0.9, Sodium Level 136, Potassium Level 4.3, Chloride Level 105, Carbon Dioxide Level 29, Anion Gap 2L, Blood Urea Nitrogen 13, Creatinine 0.8, Estimat Glomerular Filtration Rate > 60, Glucose Level 104, Calcium Level 7.6L, Phosphorus Level 2.9, Magnesium Level 1.8, Iron Level 13L, Total Iron Binding Capacity 101L, Percent Iron Saturation 13L, Unsaturated Iron Binding 88L, Total Bilirubin 0.3, Aspartate Amino Transf (AST/SGOT) 12L, Alanine Aminotransferase (ALT/SGPT) < 6L, Alkaline Phosphatase 48, Total Protein 4.0L, Albumin 1.6L, Globulin 2.4, Albumin/Globulin Ratio 0.7L, Vitamin B12 Level 428, Folate 10.8 08/09/20 12:50: POC Whole Blood Glucose 105 08/09/20 18:18: POC Whole Blood Glucose 94 Height (Feet): 5 Height (Inches): 5.00 Weight (Pounds): 126 Objective Thin woman NCAT supple CTA RR abd soft, (+) wound and ostomy no edema Assessment/Plan Assessment/Plan: Assessment/Plan Assessment/Plan: Malfunctioning Kock pouch with inability to intubate with resulting functional small-bowel obstruction malnutrition / NPO --> on TPN s/p removal of Kock pouch with conventional ileostomy TPN/npo right arm DVT fu surg recs pain control Lacey Mcnally MD Aug 09, 2020 19:46
--- NOTE | 2020-08-09 19:54 | NUR ---
NURSE NOTES: Received report from VALERI Poole. Patient seen laying in bed. NC on at 2L. No apparent distress. Busch catheter draining well with yellow clear urine. Dressing clean dry and intact.
[2020-08-09 20:00] VITALS: BP 123/64
[2020-08-09] MEDS: Iron Sucrose 100 MG in NS 55 ML IVPB SCH (20:34)
[2020-08-09] MEDS: Dyna-Hex 2% Top Sol 2oz TOPIC SCH (20:34)
[2020-08-09] MEDS: TraZODone 100mg tab ORAL SCH (20:35)
[2020-08-09] MEDS: Fat Emulsion Iv 20% 216 ML in Tpn 1,584 ML IV SCH (20:36)
[2020-08-10] VITALS (9 sets, daily range): BP systolic 92–136; BP diastolic 49–77
[2020-08-10] MEDS: NovoLOG Insulin Flexpen SUBQ SCH ×4 (05:37→23:38)
[2020-08-10] MEDS: Ampicillin/Sulbactam Sod 3 GM in NS 110 ML IV SCH ×4 (05:38→23:37)
--- NOTE | 2020-08-10 06:44 | NUR ---
NURSE HAND-OFF: Important Events on Shift: Pain management, given dilaudid sq x1. Patient more alert but has periods of slight confusion and claims that her mind is a little hazy. Urine output: 850 mL dark arti urine Ileo: 10 mL brownish liquid SAMARA 10 mL serosanguineous Patient Status: stable Diet: NPO x ice chips meds Pending Orders: [] Pending Results/Labs:[] Pending MD notification:[] Latest Vital Signs: Temperature 98.2 , Pulse 97 , B/P 134 /62 , Respiratory Rate 16 , O2 SAT 97 , Room Air, O2 Flow Rate 2.0 . Vital Sign Comment: [] Latest Henry Fall Score: 45 Fall Risk: High Risk Safety Measures: Call light Within Reach, Bed Alarm , Side Rails Side Rails x2, Bed position Low and Locked. Fall Precautions: Yellow Socks Door Sign Patient Fall Education Report given to Lesvia TRAMMELL
[2020-08-10 07:02] LABS: EOSINOPHILS % (AUTO) 0.2 % (0.0-3.0); HEMATOCRIT 26.5 % (37.0-47.0); LYMPHOCYTES % (AUTO) 12.2 % (20.0-45.0); MEAN CORPUSCULAR VOLUME 92 FL (80-99); MONOCYTES % (AUTO) 11.1 % (1.0-10.0); NEUTROPHILS % (AUTO) 75.5 % (45.0-75.0); PLATELET COUNT 156 K/UL (150-450); RED BLOOD COUNT 2.89 M/UL (4.20-5.40); RED CELL DISTRIBUTION WIDTH 11.3 % (11.6-14.8); WHITE BLOOD COUNT 5.7 K/UL (4.8-10.8)
[2020-08-10 07:22] LABS: ALANINE AMINOTRANSFERASE < 6 U/L (12-78); ALBUMIN 1.7 G/DL (3.4-5.0); ALBUMIN/GLOBULIN RATIO 0.6 (1.0-2.7); ALKALINE PHOSPHATASE 57 U/L (46-116); ANION GAP 3 mmol/L (5-15); ASPARTATE AMINO TRANSFERASE 13 U/L (15-37); BILIRUBIN,TOTAL 0.4 MG/DL (0.2-1.0); BLOOD UREA NITROGEN 12 mg/dL (7-18); CARBON DIOXIDE 30 MMOL/L (21-32); CHLORIDE 105 MMOL/L (98-107); CREATININE 0.8 MG/DL (0.55-1.30); PHOSPHORUS 4.1 MG/DL (2.5-4.9); POTASSIUM 4.2 MMOL/L (3.5-5.1); SODIUM 138 MMOL/L (136-145)
[2020-08-10] MEDS: PCA shift volume MISC SCH ×2 (07:25→19:04)
--- NOTE | 2020-08-10 07:34 | NUR ---
NURSE NOTES: Report given to Lesvia TRAMMELL
--- NOTE | 2020-08-10 08:10 | NUR ---
NURSE NOTES: Received report from Tyrell TRAMMELL, pt a/a/o laying in bed with no signs of distress or other issues at this time. Lissette Ileostomy on the RLQ no leakage noted. total out put over night 10ml. Busch cath in place draining to gravity. total out put: 850ml. Claudine drain in the LLQ draining over night: 10ml. last accucheck: 101 no coverage needed. LIFT DRIVER in place Dilaudid. call light within reach, bed in lowest position. side rales up x2. i will f/u as needed.
[2020-08-10] MEDS: BuPROPion SR 100mg tab ORAL SCH ×2 (08:38→17:31)
[2020-08-10] MEDS: Pantoprazole Inj IVP SCH (08:38)
[2020-08-10] MEDS: Meloxicam 15 MG TAB ORAL SCH (08:38)
[2020-08-10] MEDS: Citalopram Hydrobromide 10mg Tab ORAL SCH (08:38)
[2020-08-10] MEDS: MYRBETRIQ 50 MG ORAL SCH (08:39)
[2020-08-10] MEDS ORDERED: Rate Change PCA 1 Each MISC PRN (08:45)
[2020-08-10] MEDS ORDERED: PCA HYDROmorphone 1mg/ml 30 ML IV PRN (08:45)
[2020-08-10] MEDS ORDERED: DiphenhydrAMINE 50mg/ml Inj IVP PRN (08:45)
--- NOTE | 2020-08-10 10:12 | General Progress Note ---
Subjective ROS Limited/Unobtainable: Yes Allergies: Coded Allergies: CEFEPIME (Verified Adverse Reaction, Severe, 08/05/20) causes low platlets ADHESIVE TAPE (Verified Adverse Reaction, Intermediate, Rash, 08/27/19) CLEAR TAPE Objective Last 24 Hour Vital Signs Date Time Temp Pulse Resp B/P (MAP) Pulse Ox O2 Delivery O2 Flow Rate FiO2 08/10/20 09:00 Room Air 08/10/20 08:00 99.0 94 16 97/49 (65) 95 08/10/20 08:00 97 16 97 08/10/20 04:00 97 16 97 08/10/20 04:00 98.2 97 16 134/62 (86) 97 08/10/20 00:00 97.9 100 16 136/64 (88) 96 08/10/20 00:00 100 16 97 08/09/20 21:00 Room Air 08/09/20 20:18 97 Room Air 21 08/09/20 20:00 95 16 98 08/09/20 20:00 99.0 95 16 123/64 (83) 98 08/09/20 16:00 94 16 97 08/09/20 16:00 98.3 94 16 115/64 (81) 97 08/09/20 12:00 95 16 97 08/09/20 12:00 98.3 95 16 128/88 (101) 97 Intake and Output 08/09/20 08/10/20 19:00 07:00 Intake Total 1075 ml Output Total 1740 ml 620 ml Balance -665 ml -620 ml IV Total 1075 ml Output Urine Total 1700 ml 600 ml Drainage Total 25 ml 10 ml Other 15 ml 10 ml Laboratory Tests 08/09/20 12:50: POC Whole Blood Glucose 105 08/09/20 18:18: POC Whole Blood Glucose 94 08/09/20 23:19: POC Whole Blood Glucose 102 08/10/20 05:15: White Blood Count 5.7, Red Blood Count 2.89L, Hemoglobin 9.0L, Hematocrit 26.5L, Mean Corpuscular Volume 92, Mean Corpuscular Hemoglobin 31.1H, Mean Corpuscular Hemoglobin Concent 33.8, Red Cell Distribution Width 11.3L, Platelet Count 156, Mean Platelet Volume 5.9L, Neutrophils (%) (Auto) 75.5H, Lymphocytes (%) (Auto) 12.2L, Monocytes (%) (Auto) 11.1H, Eosinophils (%) (Auto) 0.2, Basophils (%) (Auto) 1.0, Sodium Level 138, Potassium Level 4.2, Chloride Level 105, Carbon Dioxide Level 30, Anion Gap 3L, Blood Urea Nitrogen 12, Creatinine 0.8, Estimat Glomerular Filtration Rate > 60, Glucose Level 105, Calcium Level 8.0L, Phosphorus Level 4.1, Magnesium Level 1.4L, Total Bilirubin 0.4, Aspartate Amino Transf (AST/SGOT) 13L, Alanine Aminotransferase (ALT/SGPT) < 6L, Alkaline Phosphatase 57, Total Protein 4.5L, Albumin 1.7L, Globulin 2.8, Albumin/Globulin Ratio 0.6L 08/10/20 05:20: POC Whole Blood Glucose 101 Height (Feet): 5 Height (Inches): 5.00 Weight (Pounds): 126 General Appearance: alert EENT: normal ENT inspection Neck: supple Cardiovascular: normal rate Respiratory/Chest: decreased breath sounds Abdomen: other - post op Extremities: non-tender Assessment/Plan Assessment/Plan: Malfunctioning Kock pouch with inability to intubate with resulting functional small-bowel obstruction s/p removal of Kock pouch with conventional ileostomy last week TPN/npo replace mag repeat labs in am right arm DVT fu surg recs pain control Adrian Morrison MD Aug 10, 2020 10:12
--- NOTE | 2020-08-10 14:37 | General Progress Note ---
Progress Note Progress Note AVSS Not cooperative about ambulating despite PT Abdomen soft, mild distention, healing nicely Urine 2550 (had Lasix 20mg x1) Ileostomy nil SAMARA 35cc Hgb 9 stable Mg 1.4 albumin 1.7 Imp: Ileus Plan; continue npo, TPN,decker Mg infusions Lalo Meadows MD Aug 10, 2020 14:37
--- NOTE | 2020-08-10 16:05 | NUR ---
CASE MANAGEMENT:REVIEW SI;POD #4 RESECTION OF FAILED KOCK POUCH W/CREATION OF ESTRADA ILEOSTOMY MALFUNCTIONING KOCK POUCH (ENTEROSTOMY MALFUNCTION). INABILITY TO SELF INTUBATE. 99.2 100 18 92/51 95% ON RA H/H 9.0/26.5 MAG 1.4 ALB 1.7 IS;MAG SULFATE IV FOLATE PO QD PROTONIX IV QD AMPICILLIN/SULBACTAM IV Q6 FLAGYL IV Q6 TPN IV Q24 MED SURG STATUS DCP;FROM HOME
--- NOTE | 2020-08-10 19:11 | NUR ---
NURSE HAND-OFF: Important Events on Shift:[] Patient Status: full code, stable Diet: NPO X chips and meds Pending Orders: am labs Pending Results/Labs: CBC, CMP, Phos, mag Pending MD notification:[] Latest Vital Signs: Temperature 99.2 , Pulse 96 , B/P 92 /57 , Respiratory Rate 16 , O2 SAT 97 , Room Air, O2 Flow Rate 2.0 . Vital Sign Comment: stable, BP on the 90's Latest Henry Fall Score: 45 Fall Risk: High Risk Safety Measures: Call light Within Reach, Bed Alarm , Side Rails Side Rails x2, Bed position Low and Locked. Fall Precautions: ambulate with assist and the use of FWW Yellow Socks Door Sign Patient Fall Education Report given to Vitaliy TRAMMELL, pt laying in bed in stable condition. - during my shift pt ambulated with PT around the room. (bed to window) and the use of a FWW. - CIAIO LUMITE INJECTOR syringe changed at 17:30 I&Os Lissette Ileos: 10ml SAMARA drain: 10ml urine: 800 (tea color) intake: NPO
--- NOTE | 2020-08-10 19:28 | NUR ---
NURSE NOTES: Received report from Lesvia TRAMMELL. Rounding is done. Patient is a/o x4. c/o /10 with WASTEWATER TREATMENT PLANT SUPERVISOR. Checked WASTEWATER TREATMENT PLANT SUPERVISOR setting. No any distress noted at this time. Breathing is even and unlabored. Lissette ileostomy is intact. Busch is in place and draining to gravity. Sx dressing is c/d/i. TPN and iv fluid are running. Bed is on alarm, locked, and lowest position. Call light within reach. Will continue to monitor.
[2020-08-10] MEDS: Iron Sucrose 100 MG in NS 55 ML IVPB SCH (20:17)
[2020-08-10] MEDS: Dyna-Hex 2% Top Sol 2oz TOPIC SCH (20:17)
[2020-08-10] MEDS: Fat Emulsion Iv 20% 216 ML in Tpn 1,584 ML IV SCH (20:20)
[2020-08-10] MEDS: NS w/KCl 20mEq 1000ml 1,000 ML IV SCH (20:28)
[2020-08-10] MEDS: TraZODone 100mg tab ORAL SCH (21:30)
[2020-08-11] VITALS (7 sets, daily range): BP systolic 93–125; BP diastolic 46–79
[2020-08-11] MEDS: Ampicillin/Sulbactam Sod 3 GM in NS 110 ML IV SCH ×4 (05:02→23:44)
[2020-08-11] MEDS: NovoLOG Insulin Flexpen SUBQ SCH ×3 (05:07→18:00)
[2020-08-11 05:31] LABS: BASOPHILS % (AUTO) 0.7 % (0.0-2.0); HEMATOCRIT 26.2 % (37.0-47.0); HEMOGLOBIN 8.9 G/DL (12.0-16.0); LYMPHOCYTES % (AUTO) 10.8 % (20.0-45.0); MEAN CORPUSCULAR VOLUME 91 FL (80-99); MONOCYTES % (AUTO) 11.5 % (1.0-10.0); PLATELET COUNT 169 K/UL (150-450); RED BLOOD COUNT 2.87 M/UL (4.20-5.40); RED CELL DISTRIBUTION WIDTH 11.2 % (11.6-14.8); WHITE BLOOD COUNT 5.8 K/UL (4.8-10.8)
[2020-08-11 05:58] LABS: ALANINE AMINOTRANSFERASE 8 U/L (12-78); ALBUMIN 1.6 G/DL (3.4-5.0); ALBUMIN/GLOBULIN RATIO 0.5 (1.0-2.7); ALKALINE PHOSPHATASE 64 U/L (46-116); ANION GAP 4 mmol/L (5-15); ASPARTATE AMINO TRANSFERASE 11 U/L (15-37); BILIRUBIN,TOTAL 0.3 MG/DL (0.2-1.0); BLOOD UREA NITROGEN 12 mg/dL (7-18); CALCIUM 7.9 MG/DL (8.5-10.1); CARBON DIOXIDE 30 MMOL/L (21-32); CHLORIDE 107 MMOL/L (98-107); CREATININE 0.7 MG/DL (0.55-1.30); PHOSPHORUS 3.8 MG/DL (2.5-4.9); POTASSIUM 4.3 MMOL/L (3.5-5.1); SODIUM 141 MMOL/L (136-145)
--- NOTE | 2020-08-11 06:31 | General Progress Note ---
Subjective ROS Limited/Unobtainable: Yes Allergies: Coded Allergies: CEFEPIME (Verified Adverse Reaction, Severe, 08/05/20) causes low platlets ADHESIVE TAPE (Verified Adverse Reaction, Intermediate, Rash, 08/27/19) CLEAR TAPE Objective Last 24 Hour Vital Signs Date Time Temp Pulse Resp B/P (MAP) Pulse Ox O2 Delivery O2 Flow Rate FiO2 08/11/20 04:00 98.4 87 18 125/67 (86) 98 08/11/20 04:00 87 18 98 08/11/20 00:20 100.0 08/11/20 00:00 100.3 97 18 105/56 (72) 97 08/11/20 00:00 97 18 97 08/10/20 21:00 Room Air 08/10/20 20:43 96 Nasal Cannula 2.0 28 08/10/20 20:00 97 18 97 08/10/20 20:00 99.2 97 18 118/77 (91) 97 08/10/20 18:03 99.2 08/10/20 17:30 96 16 97 08/10/20 16:00 96 16 97 08/10/20 15:52 99.2 96 18 92/51 (65) 97 08/10/20 12:00 97 16 97 08/10/20 11:51 98.1 95 18 96/50 (65) 95 08/10/20 09:30 98 Room Air 21 08/10/20 09:00 Room Air 08/10/20 08:00 99.0 94 16 97/49 (65) 95 08/10/20 08:00 97 16 97 Intake and Output 08/10/20 08/11/20 19:00 07:00 Intake Total 1200 ml 985 ml Output Total 820 ml 1825 ml Balance 380 ml -840 ml Intake Oral 300 ml IV Total 900 ml 985 ml Output Urine Total 800 ml 1800 ml Drainage Total 10 ml 10 ml Other 10 ml 15 ml Laboratory Tests 08/10/20 12:54: POC Whole Blood Glucose [Pending] 08/10/20 17:27: POC Whole Blood Glucose [Pending] 08/10/20 23:38: POC Whole Blood Glucose 111H 08/11/20 04:49: POC Whole Blood Glucose 99 08/11/20 04:50: White Blood Count 5.8, Red Blood Count 2.87L, Hemoglobin 8.9L, Hematocrit 26.2L, Mean Corpuscular Volume 91, Mean Corpuscular Hemoglobin 31.0, Mean Corpuscular Hemoglobin Concent 34.0, Red Cell Distribution Width 11.2L, Platelet Count 169, Mean Platelet Volume 6.1L, Neutrophils (%) (Auto) 77.0H, Lymphocytes (%) (Auto) 10.8L, Monocytes (%) (Auto) 11.5H, Eosinophils (%) (Auto) 0.0, Basophils (%) (Auto) 0.7, Sodium Level 141, Potassium Level 4.3, Chloride Level 107, Carbon Dioxide Level 30, Anion Gap 4L, Blood Urea Nitrogen 12, Creatinine 0.7, Estimat Glomerular Filtration Rate > 60, Glucose Level 107H, Calcium Level 7.9L, Phosphorus Level 3.8, Magnesium Level 1.7L, Total Bilirubin 0.3, Aspartate Amino Transf (AST/SGOT) 11L, Alanine Aminotransferase (ALT/SGPT) 8L, Alkaline Phosphatase 64, Total Protein 4.7L, Albumin 1.6L, Globulin 3.1, Albumin/Globulin Ratio 0.5L Height (Feet): 5 Height (Inches): 5.00 Weight (Pounds): 126 General Appearance: alert EENT: normal ENT inspection Neck: supple Cardiovascular: normal rate Respiratory/Chest: lungs clear Abdomen: soft, hypoactive bowel sounds, tender Extremities: non-tender Assessment/Plan Assessment/Plan: Malfunctioning Kock pouch with inability to intubate with resulting functional small-bowel obstruction s/p removal of Kock pouch with conventional ileostomy last week TPN/npo low albumin ? ileus repeat labs in am right arm DVT fu surg recs pain control on BUILDING ARCHITECTURAL DESIGNER pump Adrian Morrison MD Aug 11, 2020 06:31
[2020-08-11] MEDS: PCA shift volume MISC SCH ×2 (07:14→19:09)
--- NOTE | 2020-08-11 07:17 | NUR ---
NURSE NOTES: Received report from Vitaliy TRAMMELL, pt sleeping in bed with no signs of distress or other issues at this time. PICC line in place. surgical dressing dry and intact. Lissette ileostomy in place draining well, material handler 2nd shift out put: 15ml, SAMARA drain: 10ml. Busch Cath in place draining well total material handler 2nd shift out put: 1800ml. last blood sugar 99 no coverage needed. call light within reach, bed in lowest position. side rales up x2. I will f/u as needed. - per report pt had a low grade fever of 100.3 around midnight, Tylenol was given and temp went down to 98.4.
--- NOTE | 2020-08-11 07:18 | NUR ---
NURSE HAND-OFF: Important Events on Shift:[pain control] Patient Status: [stable] Diet: [NPO except ice chip and meds] Pending Orders: [n] Pending Results/Labs:[n] Pending MD notification:[n] Latest Vital Signs: Temperature 98.4 , Pulse 87 , B/P 125 /67 , Respiratory Rate 18 , O2 SAT 98 , Room Air, O2 Flow Rate 2.0 . Vital Sign Comment: [stable] Latest Henry Fall Score: 45 Fall Risk: High Risk Safety Measures: Call light Within Reach, Bed Alarm , Side Rails Side Rails x2, Bed position Low and Locked. Fall Precautions: Yellow Socks Door Sign Patient Fall Education Report given to [Lesvia TRAMMELL].
[2020-08-11] MEDS ORDERED: Rate Change PCA 1 Each MISC PRN (08:30)
[2020-08-11] MEDS ORDERED: DiphenhydrAMINE 50mg/ml Inj IVP PRN (08:45)
[2020-08-11] MEDS ORDERED: PCA HYDROmorphone 1mg/ml 30 ML IV PRN (08:45)
[2020-08-11] MEDS: BuPROPion SR 100mg tab ORAL SCH ×2 (08:53→17:41)
[2020-08-11] MEDS: MYRBETRIQ 50 MG ORAL SCH (08:53)
[2020-08-11] MEDS: Meloxicam 15 MG TAB ORAL SCH (08:53)
[2020-08-11] MEDS: Citalopram Hydrobromide 10mg Tab ORAL SCH (08:53)
[2020-08-11] MEDS: Pantoprazole Inj IVP SCH (08:53)
[2020-08-11 09:05] LABS: APPEARANCE,URINE CLEAR; BILIRUBIN, URINE NEGATIVE (NEGATIVE); COLOR,URINE PALE YELLOW; GLUCOSE, URINE (UA) NEGATIVE (NEGATIVE); KETONES,URINE NEGATIVE (NEGATIVE); LEUKOCYTE ESTERASE ,URINE 1+ (NEGATIVE); NITRITE,URINE NEGATIVE (NEGATIVE); PH,URINE 7 (4.5-8.0); PROTEIN,URINE NEGATIVE (NEGATIVE); UROBILINOGEN,URINE NORMAL MG/DL (0.0-1.0)
[2020-08-11] MEDS ORDERED: HYDROmorphone 1mg/ml Carpuject SUBQ PRN (09:48)
--- NOTE | 2020-08-11 12:08 | Diagnostic Imaging Report ---
Indication: Shortness of breath Technique: One view of the chest Comparison: 05/14/2020 Findings: Interim replacement of previously demonstrated PICC with a right jugular tunneled central venous catheter. Pleural fluid on the left appears increased from the previous study. The left lung, right lung and pleural space are clear. Impression: Increased left pleural effusion New right jugular tunneled central venous catheter
--- NOTE | 2020-08-11 12:50 | NUR ---
RD ASSESSMENT & RECOMMENDATIONS SEE CARE ACTIVITY FOR COMPLETE ASSESSMENT DAILY ESTIMATED NEEDS: Needs based on Surgery / 58.9kg abw 25-35 kcals/kg 0709-3697 total kcals 1-2.0g/kg w/ surgery g protein/kg 59-118g w/ surgery g total protein 25-30 mL/kg 0884-1291 total fluid mLs NUTRITION DIAGNOSIS: Altered GI function R/T h/o malfunctioning ileo, as evidenced by pt unable to intubate, awaiting now s/p pouch endoscopy, on BCIR low residue diet, made NPO again for dilated loops fluid and gas filled per CT scan, s/p kock pouch resection, creation of [place] ileo, NPO w/ TPN. CURRENT DIET:NPO + TPN PO DIET RECOMMENDATIONS: Diet per MD PARENTERAL NUTRITION RECOMMENDATIONS: D/AA Rate: 66 IL Rate: 9 Total Rate: 75 Volume: 1800 % Dextrose: 17 % AA: 5.3 Energy (kcals/kg): 1683 Protein (g/kg protein): 84 Nonprotein KCALS: 1348 GIR (mg CHO/kg/min): 3.2 % Fat KCALS: 27 NPC: N Ratio: 100:1 TPN Comment: - D17% w/ AA 5.3% @ 66ml/hr + 20%IL @9ml/hr-> total of 75ml/hr, all 3:1 - Start rate per MD. - TPN at goal meets 100% est needs. ADDITIONAL RECOMMENDATIONS: * Standing wt as able while ambulating for accurate CBW (04/28) standing wt of 135.8 lbs (07/16) Bed wt 130 lbs * Check BG, lytes and LFT's w/ TPN * Monitor for diet initiation/ tolerance . .
--- NOTE | 2020-08-11 12:51 | General Progress Note ---
Progress Note Progress Note T 100.3 x 1. U/A clear. CXR left pleural effusion - lungs clear Abdomen still mildly distended, incision clean ,stoma pink Urine 2600 Ileostomy 25cc enteric SAMARA 20cc WBC 5800 Hgb stable 8.9 - on Venofer Platelets 169,000 Mg 1.7 albumin 1.6 Imp: Ileus Low grade fever Plan; Urine C&S Blood C&S prn fever Mg infusion continue npo, TPN, Busch until ambulating better Lalo Meadows MD Aug 11, 2020 12:51
--- NOTE | 2020-08-11 13:36 | NUR ---
RADIOLOGY DEPT., CHEST X-RAY DONE.-P.DYE
--- NOTE | 2020-08-11 19:22 | NUR ---
NURSE HAND-OFF: Important Events on Shift: Patient Status: full code/ stable condition Diet: NPO X ice chips and meds Pending Orders: [] Pending Results/Labs:am labs Pending MD notification:if fever more than 100F to notify and MD and withdraw blood cultures x2 from central line Latest Vital Signs: Temperature 99.3 , Pulse 87 , B/P 112 /72 , Respiratory Rate 18 , O2 SAT 98 , Room Air, O2 Flow Rate 2.0 . Vital Sign Comment: WNL Latest Henry Fall Score: 45 Fall Risk: High Risk Safety Measures: Call light Within Reach, Bed Alarm , Side Rails Side Rails x2, Bed position Low and Locked. Fall Precautions: needs assistance Yellow Socks Door Sign Patient Fall Education Report given to Tyrell TRAMMELL, pt in stable condition. - during my shift pt was able to ambulate with PT x1 around the room and X1 with RN. - replaced Magnesium replaced with 3mg - incoming nurse is aware that if temp >100 to draw blood cultures x2 from the central line. I&O's [place] Ileostomy: 30ml (brownish/clear color) Urine: 1300 ml SAMARA drain: 15ml
--- NOTE | 2020-08-11 19:30 | NUR ---
NURSE NOTES: Received report from Lesvia TRAMMELL. Patient seen sitting on bed in semifowlers. Central line noted in the R subclavian. Dressing dry and intact. due to be changed today. Bushc catheter noted, clear light arti urine. Dressing in abdomen is clean dry and intact. Otherwise pain is well managed with current medication regimen. Will continue to monitor overnight.
[2020-08-11] MEDS: Iron Sucrose 100 MG in NS 55 ML IVPB SCH (20:31)
[2020-08-11] MEDS: Dyna-Hex 2% Top Sol 2oz TOPIC SCH (20:31)
[2020-08-11] MEDS: TraZODone 100mg tab ORAL SCH (20:32)
[2020-08-11] MEDS: Fat Emulsion Iv 20% 216 ML in Tpn 1,584 ML IV SCH (20:33)
[2020-08-12] VITALS (8 sets, daily range): BP systolic 92–136; BP diastolic 53–88
[2020-08-12] MEDS: NS w/KCl 20mEq 1000ml 1,000 ML IV SCH (05:05)
[2020-08-12] MEDS: Ampicillin/Sulbactam Sod 3 GM in NS 110 ML IV SCH ×4 (05:05→23:23)
[2020-08-12 05:24] LABS: BASOPHILS % (AUTO) 0.7 % (0.0-2.0); EOSINOPHILS % (AUTO) 0.1 % (0.0-3.0); HEMATOCRIT 24.5 % (37.0-47.0); HEMOGLOBIN 8.5 G/DL (12.0-16.0); LYMPHOCYTES % (AUTO) 8.7 % (20.0-45.0); MEAN CORPUSCULAR VOLUME 91 FL (80-99); MONOCYTES % (AUTO) 12.3 % (1.0-10.0); NEUTROPHILS % (AUTO) 78.2 % (45.0-75.0); PLATELET COUNT 177 K/UL (150-450); RED CELL DISTRIBUTION WIDTH 11.4 % (11.6-14.8)
[2020-08-12 05:43] LABS: ALANINE AMINOTRANSFERASE 8 U/L (12-78); ALBUMIN 1.5 G/DL (3.4-5.0); ALBUMIN/GLOBULIN RATIO 0.5 (1.0-2.7); ALKALINE PHOSPHATASE 85 U/L (46-116); ANION GAP 3 mmol/L (5-15); ASPARTATE AMINO TRANSFERASE 12 U/L (15-37); BILIRUBIN,TOTAL 0.4 MG/DL (0.2-1.0); BLOOD UREA NITROGEN 13 mg/dL (7-18); CALCIUM 7.7 MG/DL (8.5-10.1); CARBON DIOXIDE 30 MMOL/L (21-32); CHLORIDE 105 MMOL/L (98-107); CREATININE 0.7 MG/DL (0.55-1.30); PHOSPHORUS 3.2 MG/DL (2.5-4.9); POTASSIUM 4.2 MMOL/L (3.5-5.1); SODIUM 138 MMOL/L (136-145)
[2020-08-12] MEDS: NovoLOG Insulin Flexpen SUBQ SCH ×6 (05:54→23:23)
--- NOTE | 2020-08-12 06:33 | NUR ---
NURSE HAND-OFF: Important Events on Shift: Total urine output overnight 550 mL , dark arti urine. Ileo 20 mL, brown thicker output, and SAMARA 10 mL serosanguinous Patient Status: stable Diet: npo x i ce chips Pending Orders: [] Pending Results/Labs:[] Pending MD notification:[] Latest Vital Signs: Temperature 98.7 , Pulse 100 , B/P 136 /69 , Respiratory Rate 18 , O2 SAT 95 , Room Air, O2 Flow Rate 2.0 . Vital Sign Comment: [] Latest Henry Fall Score: 45 Fall Risk: High Risk Safety Measures: Call light Within Reach, Bed Alarm , Side Rails Side Rails x2, Bed position Low and Locked. Fall Precautions: Yellow Socks Door Sign Patient Fall Education Report given to [].
--- NOTE | 2020-08-12 07:10 | NUR ---
NURSE NOTES: WALKING ROUNDS DONE WITH NIGHT RN. PATIENT AWAKE IN BED. SURGICAL SITE ASSESSED; ROLO C/D/I. RIGHT ESTRADA ILEO INTACT AND SECURED. DEL CID CATHETER PATENT AND SECURED TO RIGHT THIGH. CUSTOM STUDIO COORDINATOR SETTINGS VERIFIED AGAINST MD ORDER. QUESTIONS ANSWERED, NEEDS MET AT THIS TIME. BED IN Addendum: 08/12/20 at 0748 by CRISTAL MONTEZ RN CONTINUE BED IN LOW AND LOCKED POSITION. PAIN CONTROLLED. CALL LIGHT WITHIN REACH.
[2020-08-12] MEDS: PCA shift volume MISC SCH ×2 (07:11→19:00)
[2020-08-12] MEDS ORDERED: Rate Change PCA 1 Each MISC PRN (08:30)
[2020-08-12] MEDS ORDERED: PCA HYDROmorphone 1mg/ml 30 ML IV PRN (08:30)
[2020-08-12] MEDS: Meloxicam 15 MG TAB ORAL SCH (08:36)
[2020-08-12] MEDS: BuPROPion SR 100mg tab ORAL SCH ×2 (08:36→17:40)
[2020-08-12] MEDS: MYRBETRIQ 50 MG ORAL SCH (08:36)
[2020-08-12] MEDS: Citalopram Hydrobromide 10mg Tab ORAL SCH (08:37)
[2020-08-12] MEDS: Pantoprazole Inj IVP SCH (08:37)
[2020-08-12] MEDS ORDERED: DiphenhydrAMINE 50mg/ml Inj IVP PRN (08:45)
[2020-08-12] MEDS: Phytonadione 10 mg/mL 1ml amp SUBQ SCH (09:59)
--- NOTE | 2020-08-12 10:59 | General Progress Note ---
Subjective ROS Limited/Unobtainable: Yes Allergies: Coded Allergies: CEFEPIME (Verified Adverse Reaction, Severe, 08/05/20) causes low platlets ADHESIVE TAPE (Verified Adverse Reaction, Intermediate, Rash, 08/27/19) CLEAR TAPE Objective Last 24 Hour Vital Signs Date Time Temp Pulse Resp B/P (MAP) Pulse Ox O2 Delivery O2 Flow Rate FiO2 08/12/20 09:00 Nasal Cannula 3.0 08/12/20 07:43 98.3 96 19 92/60 (71) 97 08/12/20 07:42 96 19 97 08/12/20 04:00 98.7 100 20 136/69 (91) 94 08/12/20 04:00 100 18 95 08/12/20 00:00 109 18 97 08/12/20 00:00 99.7 109 20 115/73 (87) 95 08/11/20 21:00 Room Air 08/11/20 20:05 96 Room Air 21 08/11/20 20:00 99.1 100 20 100/79 (86) 96 08/11/20 20:00 99 18 97 08/11/20 18:12 99.3 08/11/20 16:00 87 18 98 08/11/20 16:00 99.3 87 20 112/72 (85) 93 08/11/20 12:00 98.6 87 18 93/46 (62) 93 08/11/20 11:38 87 18 98 Intake and Output 08/11/20 08/12/20 19:00 07:00 Intake Total 1275 ml 100 ml Output Total 1345 ml 580 ml Balance -70 ml -480 ml Intake Oral 300 ml IV Total 975 ml 100 ml Output Urine Total 1300 ml 550 ml Drainage Total 15 ml 10 ml Other 30 ml 20 ml Laboratory Tests 08/11/20 11:32: POC Whole Blood Glucose [Pending] 08/11/20 17:40: POC Whole Blood Glucose 121H 08/11/20 23:49: POC Whole Blood Glucose 110H 08/12/20 04:40: White Blood Count 7.0, Red Blood Count 2.70L, Hemoglobin 8.5L, Hematocrit 24.5L, Mean Corpuscular Volume 91, Mean Corpuscular Hemoglobin 31.3H, Mean Corpuscular Hemoglobin Concent 34.5, Red Cell Distribution Width 11.4L, Platelet Count 177, Mean Platelet Volume 6.1L, Neutrophils (%) (Auto) 78.2H, Lymphocytes (%) (Auto) 8.7L, Monocytes (%) (Auto) 12.3H, Eosinophils (%) (Auto) 0.1, Basophils (%) (Auto) 0.7, Sodium Level 138, Potassium Level 4.2, Chloride Level 105, Carbon Dioxide Level 30, Anion Gap 3L, Blood Urea Nitrogen 13, Creatinine 0.7, Estimat Glomerular Filtration Rate > 60, Glucose Level 85, Calcium Level 7.7L, Phosphorus Level 3.2, Magnesium Level 1.7L, Total Bilirubin 0.4, Aspartate Amino Transf (AST/SGOT) 12L, Alanine Aminotransferase (ALT/SGPT) 8L, Alkaline Phosphatase 85, Total Protein 4.8L, Albumin 1.5L, Globulin 3.3, Albumin/Globulin Ratio 0.5L Height (Feet): 5 Height (Inches): 5.00 Weight (Pounds): 126 General Appearance: no apparent distress EENT: normal ENT inspection Neck: supple Cardiovascular: normal rate Respiratory/Chest: decreased breath sounds Abdomen: hypoactive bowel sounds, tender Extremities: non-tender Assessment/Plan Assessment/Plan: Malfunctioning Kock pouch with inability to intubate with resulting functional small-bowel obstruction s/p removal of Kock pouch with conventional ileostomy last week TPN/npo c/o nausea repeat labs in am fu surg recs pain control on REMEDIAL TEACHER pump Adrian Morrison MD Aug 12, 2020 10:59
--- NOTE | 2020-08-12 13:48 | General Progress Note ---
Progress Note Progress Note AVSS Still very limited in ability to ambulate, even with PT. Abdomen mildly distended, healing Ileostomy still only small amount enteric fluid I&O, labs stable with albumin very low despite TPN Imp: Prolonged ileus Plan: STAT portable KUB XRay continue npo, TPN hopefully can remove Busch in AM and start po fluids Lalo Meadows MD Aug 12, 2020 13:48
--- NOTE | 2020-08-12 14:52 | NUR ---
CASE MANAGEMENT:REVIEW SI;POD #5 RESECTION OF FAILED KOCK POUCH W/CREATION OF ESTRADA ILEOSTOMY MALFUNCTIONING KOCK POUCH (ENTEROSTOMY MALFUNCTION). INABILITY TO SELF INTUBATE. 100.3 109 21 92/60 94% 3L NC H/H 8.4/24.5 MAG 1.7 ALB 1.5 IS;MAG SULFATE IV ONCE BASE MANAGER Q12 KCL/NS IV PROTONIX IV QD AMPICILLIN/SULBACTAM IV Q6 MED SURG STATUS DCP;FROM HOME
--- NOTE | 2020-08-12 15:11 | Diagnostic Imaging Report ---
Indication: Abdominal distention Technique: Supine view of the abdomen Comparison: 07/23/2020 Findings: Surgical drain is seen in the pelvis. There are lower midline and right lower quadrant skin lu. There is a right lower quadrant ileostomy. Previously demonstrated pelvic staple lines are not visualized currently. Small bowel loops are gas-filled, mildly dilated, particularly in the left upper quadrant.. Impression: Postsurgical changes as described. Mildly dilated gas-filled small bowel loops. This is likely on the basis of postoperative ileus, but the possibility of small bowel obstruction should also be considered. Recommend follow-up radiographs as indicated
[2020-08-12] MEDS ORDERED: Tubing IV Secondary IV ONE (16:12)
--- NOTE | 2020-08-12 16:22 | NUR ---
NURSE HAND-OFF: Important Events on Shift:N/A Patient Status: STABLE Diet: NPO X ICE CHIPS Pending Orders: N/A Pending Results/Labs:N/A Pending MD notification:N/A Latest Vital Signs: Temperature 99.0 , Pulse 102 , B/P 120 /59 , Respiratory Rate 21 , O2 SAT 97 , Nasal Cannula, O2 Flow Rate 3.0 . Vital Sign Comment: STABLE Latest Henry Fall Score: 60 Fall Risk: High Risk Safety Measures: Call light Within Reach, Bed Alarm Zone 1, Side Rails Side Rails x2, Bed position Low and Locked. Fall Precautions: Yellow Socks Yellow Gown Door Sign Patient Fall Education Report given to SAI SUMNER RN.
--- NOTE | 2020-08-12 19:30 | NUR ---
NURSE NOTES: Received report from Hali Good RN, Patient in stable condition. Denies any pain as of the moment. pain well managed. with
--- NOTE | 2020-08-12 19:44 | NUR ---
NURSE HAND-OFF: Important Events on Shift:[Plan to DC decker and start clear liquid diet] Patient Status: [stable] Diet: [npo] Pending Orders: [] Pending Results/Labs:[] Pending MD notification:[] Latest Vital Signs: Temperature 99.0 , Pulse 102 , B/P 120 /59 , Respiratory Rate 21 , O2 SAT 97 , Nasal Cannula, O2 Flow Rate 3.0 . Vital Sign Comment: [] Latest Henry Fall Score: 60 Fall Risk: High Risk Safety Measures: Call light Within Reach, Bed Alarm Zone 1, Side Rails Side Rails x2, Bed position Low and Locked. Fall Precautions: Yellow Socks Yellow Gown Door Sign Patient Fall Education Report given to [VALERI Santillan].
[2020-08-12] MEDS: Dyna-Hex 2% Top Sol 2oz TOPIC SCH (20:08)
[2020-08-12] MEDS: Iron Sucrose 100 MG in NS 55 ML IVPB SCH (20:08)
[2020-08-12] MEDS: TraZODone 100mg tab ORAL SCH (20:09)
[2020-08-12] MEDS: Fat Emulsion Iv 20% 216 ML in Tpn 1,584 ML IV SCH (20:10)
[2020-08-12] MEDS: LORazepam 1mg tab SL PRN (23:24)
--- NOTE | 2020-08-12 23:34 | NUR ---
NURSE NOTES: Patient reports to have muscle spasms in the abdominal area. Offered and gave ativan SL. will reassess. VS taken and BP slightly elevated than baseline, she said it might be related to the spasms and pain. Reminded pt to use SOLAR PHOTOVOLTAIC SYSTEMS ENGINEER as ordered.
[2020-08-13] VITALS: BP 134/64
--- NOTE | 2020-08-13 00:48 | NUR ---
NURSE NOTES: Report given to VALERI Gomez.
--- NOTE | 2020-08-13 00:50 | NUR ---
Received report from VALERI Santillan and rounds made. Patient in bed, AOX4, pain level 4/10. IV and TPN infusing as per MD orders. Busch yellow clear output. IVF, TPN infusing. CHECKOUT SUPERVISOR setting checked and verified. NAD noted. Will continue monitor.
[2020-08-13 04:00] VITALS: BP 134/76
[2020-08-13] MEDS: NS w/KCl 20mEq 1000ml 1,000 ML IV SCH (05:46)
[2020-08-13] MEDS: NovoLOG Insulin Flexpen SUBQ SCH ×4 (05:46→23:39)
[2020-08-13] MEDS: LORazepam 1mg tab SL PRN (05:50)
[2020-08-13 06:17] LABS: BASOPHILS % (AUTO) 0.8 % (0.0-2.0); EOSINOPHILS % (AUTO) 0.1 % (0.0-3.0); HEMATOCRIT 25.8 % (37.0-47.0); HEMOGLOBIN 8.9 G/DL (12.0-16.0); LYMPHOCYTES % (AUTO) 8.4 % (20.0-45.0); MEAN CORPUSCULAR VOLUME 90 FL (80-99); NEUTROPHILS % (AUTO) 80.7 % (45.0-75.0); PLATELET COUNT 221 K/UL (150-450); RED BLOOD COUNT 2.88 M/UL (4.20-5.40); RED CELL DISTRIBUTION WIDTH 11.7 % (11.6-14.8); WHITE BLOOD COUNT 8.6 K/UL (4.8-10.8)
[2020-08-13 06:33] LABS: ALANINE AMINOTRANSFERASE < 6 U/L (12-78); ALBUMIN 1.6 G/DL (3.4-5.0); ALBUMIN/GLOBULIN RATIO 0.5 (1.0-2.7); ALKALINE PHOSPHATASE 133 U/L (46-116); ANION GAP 6 mmol/L (5-15); ASPARTATE AMINO TRANSFERASE 11 U/L (15-37); BILIRUBIN,TOTAL 0.7 MG/DL (0.2-1.0); BLOOD UREA NITROGEN 11 mg/dL (7-18); CALCIUM 8.2 MG/DL (8.5-10.1); CARBON DIOXIDE 30 MMOL/L (21-32); CHLORIDE 103 MMOL/L (98-107); CREATININE 0.8 MG/DL (0.55-1.30); POTASSIUM 4.1 MMOL/L (3.5-5.1); SODIUM 139 MMOL/L (136-145)
[2020-08-13] MEDS: PCA shift volume MISC SCH ×2 (07:00→19:00)
--- NOTE | 2020-08-13 07:29 | NUR ---
NURSE NOTES: Report received from Jason RN, rounds made. Patient sleeping, awakens easily, but falls back asleep. Respiration even/unlabored on O2 3LNC , no distress. IV NS +20 KCL at 25 ml/hr, TPN at 75 ml/hr, REGIONAL FACILITIES SPECIALIST (Dilaudid) bolus 0.2 mg, every 6 minutes, 6 mg lockout connected to RUC central line, dressing CDI, site asymptomatic. Right abdomen ostomy appliance in place, brown liquid output noted in bag. Left abdomen SAMARA x1, serosanguineous output noted in tubing/bulb. Abdominal dressing CDI. FC in place with silk tape anchor, y/cl urine in drainage bag. Bilateral SCDs off, patient refused. Ice chips provided, NPO status. Call light/REGIONAL FACILITIES SPECIALIST button in reach, bed in lowest position, will continue to monitor.
--- NOTE | 2020-08-13 07:33 | NUR ---
HAND-OFF: Report given to VALERI Poole
[2020-08-13 08:00] VITALS: BP 135/78
[2020-08-13] MEDS ORDERED: PCA HYDROmorphone 1mg/ml 30 ML IV PRN (09:14)
[2020-08-13] MEDS ORDERED: DiphenhydrAMINE 50mg/ml Inj IVP PRN (09:15)
[2020-08-13] MEDS ORDERED: Rate Change PCA 1 Each MISC PRN (09:15)
--- NOTE | 2020-08-13 09:18 | General Progress Note ---
Progress Note Progress Note AVSS Getting out of bed better. Abdomen remains mildly distended, incision clean, stoma stable Urine 3300 Ileostomy 110 SAMARA 20 KUB XRay showed mildly dilated small bowel loops - ileus vs partial SBO Labs all stable with albumin 1.6 Urine C&S no growth Imp: Prolonged ileus and malnutrition Plan: Continue npo, TPN remove urinary Busch catheter (use PureWick as needed) f/u labs Lalo Meadows MD Aug 13, 2020 09:18
[2020-08-13] MEDS: Citalopram Hydrobromide 10mg Tab ORAL SCH (09:27)
[2020-08-13] MEDS: Pantoprazole Inj IVP SCH (09:27)
[2020-08-13] MEDS: MYRBETRIQ 50 MG ORAL SCH (09:27)
[2020-08-13] MEDS: BuPROPion SR 100mg tab ORAL SCH ×2 (09:27→18:21)
[2020-08-13] MEDS: Meloxicam 15 MG TAB ORAL SCH (09:27)
--- NOTE | 2020-08-13 11:15 | NUR ---
PT NOTE Per Zulema TRAMMELL, patient was just up to the bedside commode and returned to bed. Patient declining further participation with PT at this time. Zulema TRAMMELL aware, will follow.
[2020-08-13 12:00] VITALS: BP 153/73
--- NOTE | 2020-08-13 12:26 | General Progress Note ---
Subjective ROS Limited/Unobtainable: No Allergies: Coded Allergies: CEFEPIME (Verified Adverse Reaction, Severe, 08/05/20) causes low platlets ADHESIVE TAPE (Verified Adverse Reaction, Intermediate, Rash, 08/27/19) CLEAR TAPE Objective Last 24 Hour Vital Signs Date Time Temp Pulse Resp B/P (MAP) Pulse Ox O2 Delivery O2 Flow Rate FiO2 08/13/20 08:00 104 16 95 08/13/20 08:00 98.4 104 16 135/78 (97) 95 08/13/20 04:00 98 20 94 08/13/20 04:00 99.5 81 20 134/76 (95) 94 08/13/20 00:00 96 20 95 08/13/20 00:00 99.3 98 20 134/64 (87) 95 08/12/20 23:54 98 18 134/64 95 08/12/20 23:24 96 18 139/64 95 08/12/20 21:00 Nasal Cannula 3.0 08/12/20 20:00 99.8 105 20 126/88 (101) 95 08/12/20 20:00 105 20 95 08/12/20 19:50 96 Room Air 21 08/12/20 16:00 102 21 97 08/12/20 16:00 99.0 102 21 120/59 (79) 97 Intake and Output 08/12/20 08/13/20 19:00 07:00 Intake Total 1410 ml 725 ml Output Total 990 ml 2440 ml Balance 420 ml -1715 ml IV Total 1410 ml 725 ml Output Urine Total 900 ml 2400 ml Drainage Total 10 ml 10 ml Other 80 ml 30 ml Laboratory Tests 08/12/20 23:14: POC Whole Blood Glucose 91 08/13/20 05:44: POC Whole Blood Glucose [Pending] 08/13/20 06:00: White Blood Count 8.6, Red Blood Count 2.88L, Hemoglobin 8.9L, Hematocrit 25.8L, Mean Corpuscular Volume 90, Mean Corpuscular Hemoglobin 30.8, Mean Corpuscular Hemoglobin Concent 34.4, Red Cell Distribution Width 11.7, Platelet Count 221, Mean Platelet Volume 6.0L, Neutrophils (%) (Auto) 80.7H, Lymphocytes (%) (Auto) 8.4L, Monocytes (%) (Auto) 10.0, Eosinophils (%) (Auto) 0.1, Basophils (%) (Auto) 0.8, Sodium Level 139, Potassium Level 4.1, Chloride Level 103, Carbon Dioxide Level 30, Anion Gap 6, Blood Urea Nitrogen 11, Creatinine 0.8, Estimat Glomerular Filtration Rate > 60, Glucose Level 81, Calcium Level 8.2L, Phosphorus Level 4.0, Magnesium Level 1.8, Total Bilirubin 0.7, Aspartate Amino Transf (AST/SGOT) 11L, Alanine Aminotransferase (ALT/SGPT) < 6L, Alkaline Phosphatase 133H, Total Protein 4.9L, Albumin 1.6L, Globulin 3.3, Albumin/Globulin Ratio 0.5L Height (Feet): 5 Height (Inches): 5.00 Weight (Pounds): 126 General Appearance: alert EENT: normal ENT inspection Neck: supple Cardiovascular: normal rate Respiratory/Chest: decreased breath sounds Abdomen: hypoactive bowel sounds, tender Extremities: non-tender Assessment/Plan Assessment/Plan: Malfunctioning Kock pouch with inability to intubate with resulting functional small-bowel obstruction s/p removal of Kock pouch with conventional ileostomy last week TPN/npo c/o nausea KUB>> ileus repeat labs in am fu surg recs pain control on BISQUE CLEANER pump Adrian Morrison MD Aug 13, 2020 12:26
--- NOTE | 2020-08-13 12:30 | NUR ---
NURSE NOTES: Michael, wound nurse, notified that Dr. Meadows wants her to evaluate patient's Lissette ileostomy. Michael, is on medical leave, Ashli SUAREZ notified.
--- NOTE | 2020-08-13 14:30 | NUR ---
NURSE NOTES: FC discontinued at 0950 as ordered. Patient up to BSC with RN at 1045, voided in hat. Purewik set up, on stand by at this time. Patient had incontinent incident at 1245, attempting to get on BSC with RN. Skin care provided. Applied Purewik. Patient had another incontinent incident due to Purewik suction not adequate. Skin care provided. Wall suction adjusted. Will continue to monitor.
[2020-08-13 16:00] VITALS: BP 147/81
--- NOTE | 2020-08-13 18:00 | NUR ---
NURSE NOTES: Patient had incontinence x2 more times, even with Purewik adjusted (and changed canister/tubing/purewik piece), replaced, supported with towel to hold in place. All done with Ashli SUAREZ. Will endorse to next shift to use bedpan and measure urine output.
--- NOTE | 2020-08-13 19:30 | NUR ---
NURSE HAND-OFF: Important Events on Shift:FC discontinued Patient Status: stable Diet: NPO Outputs: Urine: 200 + incontinent x4 Ileostomy: 50 ml SAMARA: 10 ml Pending Orders: if temperature >100.3, do blood cultures x2 Pending Results/Labs:CBC CMP MG PHOS 08/14 Pending notification:none Latest Vital Signs: Temperature 99.0 , Pulse 104 , B/P 147 /81 , Respiratory Rate 18 , O2 SAT 96 , Room Air, O2 Flow Rate 3.0 . Vital Sign Comment: none Latest Henry Fall Score: 60 Fall Risk: High Risk Safety Measures: Call light Within Reach, Bed Alarm Zone 1, Side Rails Side Rails x2, Bed position Low and Locked. Fall Precautions: Yellow Socks Door Sign Patient Fall Education Report given to Vitaliy TRAMMELL. Addendum: 08/13/20 at 2004 by Zulema Potter RN Output: Urine: 700 (FC), 200 (void), incontinent x4
--- NOTE | 2020-08-13 19:31 | NUR ---
NURSE NOTES: Received from Zulema TRAMMELL. Rounding is done. Patient is a/ox4. C/o pain 4/10 with [employer] pu URSE NOTES: Report received from Jason TRAMMELL, rounds made. Patient sleeping, awakens easily, but falls back asleep. Respiration even/unlabored on O2 3LNC , no distress. IV NS +20 KCL at 25 ml/hr, TPN at 75 ml/hr, [employer] (Dilaudid) bolus 0.2 mg, every 6 minutes, 6 mg lockout connected to RUC central line, dressing CDI, site asymptomatic. Right abdomen ostomy appliance in place, brown liquid output noted in bag. Left abdomen SAMARA x1, serosanguineous output noted in tubing/bulb. Abdominal dressing CDI. FC in place with silk tape anchor, y/cl urine in drainage bag. Bilateral SCDs off, patient refused. Ice chips provided, NPO status. Call light/[employer] button in reach, bed in lowest position, will continue to monitor. Addendum: 08/13/20 at 205 by Vitaliy Hernandez RN Wrong chart and add new: NURSE NOTES: Received from Zulema TRAMMELL. Rounding is done. Patient is a/ox4. C/o pain 4/10 with [employer] pump and will follow up. Checked [employer] setting with Zulema. No any distress noted. Breathing is even and unlabored. RUC central line is intact and TPN and IV fluid are running. SAMARA is in place and draining well. Lissette ileostomy is in place. Surgical dressing is c/d/i. Bilateral SCDs off, patient refused. Bed is on alarm, locked, and lowest position. Call light within reach. Will cnotinue to monitor.
[2020-08-13 20:00] VITALS: BP 137/73
[2020-08-13] MEDS: TraZODone 100mg tab ORAL SCH (21:07)
[2020-08-13] MEDS: Iron Sucrose 100 MG in NS 55 ML IVPB SCH (21:07)
[2020-08-13] MEDS: Dyna-Hex 2% Top Sol 2oz TOPIC SCH (21:07)
[2020-08-13] MEDS: Fat Emulsion Iv 20% 216 ML in Tpn 1,584 ML IV SCH (21:09)
[2020-08-14] VITALS (10 sets, daily range): BP systolic 109–141; BP diastolic 58–71
[2020-08-14] MEDS: NS w/KCl 20mEq 1000ml 1,000 ML IV SCH (05:16)
[2020-08-14] MEDS: NovoLOG Insulin Flexpen SUBQ SCH ×3 (05:47→18:00)
[2020-08-14 05:55] LABS: BASOPHILS % (AUTO) 0.9 % (0.0-2.0); EOSINOPHILS % (AUTO) 0.3 % (0.0-3.0); HEMATOCRIT 23.9 % (37.0-47.0); HEMOGLOBIN 8.3 G/DL (12.0-16.0); LYMPHOCYTES % (AUTO) 9.3 % (20.0-45.0); MEAN CORPUSCULAR VOLUME 90 FL (80-99); MONOCYTES % (AUTO) 11.1 % (1.0-10.0); NEUTROPHILS % (AUTO) 78.5 % (45.0-75.0); PLATELET COUNT 229 K/UL (150-450); RED BLOOD COUNT 2.66 M/UL (4.20-5.40); RED CELL DISTRIBUTION WIDTH 11.9 % (11.6-14.8); WHITE BLOOD COUNT 8.4 K/UL (4.8-10.8)
[2020-08-14 06:26] LABS: ALANINE AMINOTRANSFERASE 10 U/L (12-78); ALBUMIN 1.6 G/DL (3.4-5.0); ALBUMIN/GLOBULIN RATIO 0.5 (1.0-2.7); ALKALINE PHOSPHATASE 166 U/L (46-116); ANION GAP 7 mmol/L (5-15); ASPARTATE AMINO TRANSFERASE 19 U/L (15-37); BLOOD UREA NITROGEN 12 mg/dL (7-18); CALCIUM 8.1 MG/DL (8.5-10.1); CARBON DIOXIDE 28 MMOL/L (21-32); CHLORIDE 103 MMOL/L (98-107); CREATININE 0.8 MG/DL (0.55-1.30); PHOSPHORUS 3.8 MG/DL (2.5-4.9); POTASSIUM 3.9 MMOL/L (3.5-5.1); SODIUM 137 MMOL/L (136-145)
--- NOTE | 2020-08-14 07:20 | NUR ---
NURSE NOTES: Report received from Vitaliy RN, rounds made. Patient sleeping, awakens easily. Respiration even/unlabored on RA , no distress. IV NS +20 KCL at 25 ml/hr, TPN at 75 ml/hr, LABEL CODER (Dilaudid) bolus 0.2 mg, every 6 minutes, 6 mg lockout connected to RUC central line, dressing CDI, site asymptomatic. Abdominal pain 4/10. Right abdomen ostomy appliance in place, dark brown/green liquid output noted in bag. Left abdomen SAMARA x1, serosanguineous output noted in tubing/bulb. Abdominal dressing CDI. Voids in bedpan. Bilateral SCDs off, patient refused. Ice chips provided, NPO status. Call light/LABEL CODER button in reach, bed in lowest position, will continue to monitor.
[2020-08-14] MEDS: PCA shift volume MISC SCH ×2 (07:21→19:20)
--- NOTE | 2020-08-14 07:33 | NUR ---
NURSE HAND-OFF: Important Events on Shift:[SAFETY] Patient Status: [STABLE] Diet: [NPO except ice chip and meds] Pending Orders: [n] Pending Results/Labs:[n] Pending MD notification:[n] Latest Vital Signs: Temperature 99.4 , Pulse 103 , B/P 128 /59 , Respiratory Rate 20 , O2 SAT 95 , Room Air, O2 Flow Rate 3.0 . Vital Sign Comment: [stable] Latest Henry Fall Score: 60 Fall Risk: High Risk Safety Measures: Call light Within Reach, Bed Alarm Zone 1, Side Rails Side Rails x2, Bed position Low and Locked. Fall Precautions: Yellow Socks Door Sign Patient Fall Education Report given to [Zulema TRAMMELL].
[2020-08-14] MEDS: Pantoprazole Inj IVP SCH (08:51)
[2020-08-14] MEDS: Citalopram Hydrobromide 10mg Tab ORAL SCH (08:51)
[2020-08-14] MEDS: Meloxicam 15 MG TAB ORAL SCH (08:51)
[2020-08-14] MEDS: BuPROPion SR 100mg tab ORAL SCH ×2 (08:52→17:58)
[2020-08-14] MEDS: MYRBETRIQ 50 MG ORAL SCH (09:00)
[2020-08-14] MEDS ORDERED: Omnipaque-300 100ml vial INJ PRN (09:30)
[2020-08-14] MEDS ORDERED: Rate Change PCA 1 Each MISC PRN (09:30)
--- NOTE | 2020-08-14 09:42 | General Progress Note ---
Progress Note Progress Note T 100 x 1. Tachy 100-110 Voiding with bedpan and occasional up to commode Abdomen still mildly distended, incision clean, stoma pink Urine 2300 Ileostomy 110 enteric SAMARA 20cc Hgb down 8.3 - receiving Venofer daily chem all okay except alk phos up, Mg 1.6, albumin 1.6 Imp: prolonged ileus vs.early post-op partial SBO Plan; continue npo, TPN Mg infusion STAT CT abd+pelvis with oral and IV contrast Lalo Meadows MD Aug 14, 2020 09:42
--- NOTE | 2020-08-14 09:57 | General Progress Note ---
Subjective ROS Limited/Unobtainable: Yes Allergies: Coded Allergies: CEFEPIME (Verified Adverse Reaction, Severe, 08/05/20) causes low platlets ADHESIVE TAPE (Verified Adverse Reaction, Intermediate, Rash, 08/27/19) CLEAR TAPE Objective Last 24 Hour Vital Signs Date Time Temp Pulse Resp B/P (MAP) Pulse Ox O2 Delivery O2 Flow Rate FiO2 08/14/20 08:00 98.8 103 20 109/62 (78) 94 08/14/20 08:00 103 20 94 08/14/20 04:00 99.4 103 20 128/59 (82) 95 08/14/20 04:00 103 20 95 08/14/20 00:00 103 20 95 08/14/20 00:00 99.2 103 20 131/67 (88) 95 08/13/20 21:00 Room Air 08/13/20 20:14 97 Room Air 21 08/13/20 20:00 102 20 94 08/13/20 20:00 100.0 102 20 137/73 (94) 94 08/13/20 16:00 99.0 104 18 147/81 (103) 96 08/13/20 16:00 104 18 96 08/13/20 14:40 98.5 95 08/13/20 12:00 107 18 96 08/13/20 12:00 99.0 107 18 153/73 (99) 96 Intake and Output 08/13/20 08/14/20 19:00 07:00 Intake Total 1100 ml 1135 ml Output Total 960 ml 1470 ml Balance 140 ml -335 ml IV Total 1100 ml 1135 ml Output Urine Total 900 ml 1400 ml Drainage Total 10 ml 10 ml Other 50 ml 60 ml # Voids 5 5 Laboratory Tests 08/13/20 12:50: POC Whole Blood Glucose 115H 08/13/20 18:27: POC Whole Blood Glucose 108H 08/13/20 23:39: POC Whole Blood Glucose 102 08/14/20 05:18: POC Whole Blood Glucose 79 08/14/20 05:35: White Blood Count 8.4, Red Blood Count 2.66L, Hemoglobin 8.3L, Hematocrit 23.9L, Mean Corpuscular Volume 90, Mean Corpuscular Hemoglobin 31.2H, Mean Corpuscular Hemoglobin Concent 34.6, Red Cell Distribution Width 11.9, Platelet Count 229, Mean Platelet Volume 5.9L, Neutrophils (%) (Auto) 78.5H, Lymphocytes (%) (Auto) 9.3L, Monocytes (%) (Auto) 11.1H, Eosinophils (%) (Auto) 0.3, Basophils (%) (Auto) 0.9, Sodium Level 137, Potassium Level 3.9, Chloride Level 103, Carbon Dioxide Level 28, Anion Gap 7, Blood Urea Nitrogen 12, Creatinine 0.8, Estimat Glomerular Filtration Rate > 60, Glucose Level 76, Calcium Level 8.1L, Sigifredo sphorus Level 3.8, Magnesium Level 1.6L, Total Bilirubin 1.0, Aspartate Amino Transf (AST/SGOT) 19, Alanine Aminotransferase (ALT/SGPT) 10L, Alkaline Phosphatase 166H, Total Protein 4.8L, Albumin 1.6L, Globulin 3.2, Albumin/Globulin Ratio 0.5L Height (Feet): 5 Height (Inches): 5.00 Weight (Pounds): 126 General Appearance: no apparent distress EENT: normal ENT inspection Neck: supple Cardiovascular: normal rate Respiratory/Chest: decreased breath sounds Abdomen: normal bowel sounds, non tender, soft Extremities: non-tender Assessment/Plan Assessment/Plan: Malfunctioning Kock pouch with inability to intubate with resulting functional small-bowel obstruction s/p removal of Kock pouch with conventional ileostomy last week TPN/npo c/o nausea KUB>> ileus pending CT for today replace mag fu ALP repeat labs in am fu surg recs pain control on INTAKE NURSE pump Adrian Morrison MD Aug 14, 2020 09:57
--- NOTE | 2020-08-14 10:00 | NUR ---
NURSE NOTES: PT lab draw obtained from central line as ordered by primary RN, sent down to lab with Pamela SUAREZ.
[2020-08-14 10:22] LABS: INR 1.1 (0.9-1.1)
--- NOTE | 2020-08-14 10:30 | NUR ---
NURSES NOTE: Pt had episode of projectile emesis x2. Unable to record cc. Addendum: 08/15/20 at 0414 by Rosmery Reich RN Wrong time reflected. Correct time of event 08/14/20 7076. New note made reflecting correct time.
--- NOTE | 2020-08-14 12:00 | NUR ---
NURSE NOTES: STAT orders for CT ABD/PELVIS, patient aware, consent for contrast signed, medicated with Zofran prior to giving oral contrast, patient tolerated well, no NV. Lissette ileostomy appliance, changed as ordered, skin care provided, new appliance applied, abdominal dressing changed with 4x4 and paper tape. Sent down at 1130 via bed on RA, in stable condition, returned at 1155.
--- NOTE | 2020-08-14 12:28 | NUR ---
PT WEEKLY PROGRESS NOTE Patient being seen by PT for therapeutic exercises, transfer training and gait training. Patient requires min assist for bed mobility and for transfers with FWW. Ambulation has been limited due to weakness and patient being groggy. Patient will continue to benefit from skilled inpatient PT intervention to increase strength and postural stability for improved level of functional mobility with transfers and ambulation.
--- NOTE | 2020-08-14 12:39 | Diagnostic Imaging Report ---
Clinical Indication: Abdominal distention and abdominal pain Technique: Patient ingested oral contrast IV administration nonionic contrast. Venous phase spiral acquisition obtained through the abdomen and pelvis. Multiplanar reconstructions were generated. Total dose length product 336 mGycm. CTDIvol(s) 6 mGy. Dose reduction achieved using automated exposure control Comparison: 08/01/2020 Findings: There is been interim surgery, with takedown of previously demonstrated continent ileostomy and placement of a simple right lower quadrant ileostomy. The small bowel is considerably dilated over most of its length, beginning normal in caliber just proximal to the ileostomy. Ingested contrast has only traversed a portion of the small bowel. There is heterogeneous appearance to the incisional tissues, with considerable enhancing cyst tissue interspersed with very small areas of fluid attenuation. Just cephalad to the latter, there is a somewhat irregular gas and fluid collection which measures approximately 8 x 4 x 2 cm and is probably not within bowel. A surgical drain is seen within the pelvis. The bladder contains gas. The vaginal vault is filled with fluid. Considerable heterogeneous enhancing tissue is seen within the pelvis posterior and cephalad to the bladder, without discrete organized fluid collection. Soft tissues in the right paracolic gutter appear somewhat edematous. There is trace free intraperitoneal fluid adjacent to the liver. The liver is unremarkable. The gallbladder is mildly distended. There is mild extra hepatic biliary ductal dilatation, unchanged. The pancreas, spleen, adrenals, kidneys are unremarkable. Gas is seen within the bladder lumen. There are moderate-sized bilateral pleural effusions. There is resultant compressive atelectasis at both lung bases. There are degenerative spondylosis changes. Impression: Postsurgical changes, as described 8.4 x 2 cm gas and fluid collection in the anterior pelvis, may represent a routine postsurgical collection could also be infected. Distended small bowel. Probably secondary to postoperative ileus but distal small bowel obstruction not excludable. Fluid within the vaginal vault. Significance uncertain. Gas within the bladder, likely related to recent instrumentation. Bilateral moderate pleural effusions. Resultant passive atelectasis at both lung bases. Degenerative spondylosis Findings discussed by phone with Dr. Meadows at the time of interpretation The CT scanner at [facility] is accredited by the [employer] and the scans are performed using protocols designed to limit radiation exposure to as low as reasonably achievable to attain images of sufficient resolution adequate for diagnostic evaluation.
[2020-08-14] MEDS ORDERED: Lidocaine 1% Plain 30 ml INJ PRN ×2 (13:17→13:47)
[2020-08-14] MEDS ORDERED: Sodium Bicarbonate 4% 2.4meq/5ml vial IV PRN (13:45)
--- NOTE | 2020-08-14 13:50 | NUR ---
CASE MANAGEMENT: REVIEW 08/14/2020 SI:ENTEROSTOMY MALFUNCTION. PROLONGED ILEUS. PARTIAL SBO. VS: T 99 HR 96 RR 18 B/P 121/67 SATS 93% ON RA LABS: GLU 118 CA 8.1 MG 1.6 AST 10 ALP 166 IS;KCL IV Q24H WELLBUTRIN PO BID TRAZODONE PO QHS VENOFER IV QHS CELEXA PO QD MOBIC PO QD AUTOMATION AND CONTROL ENGINEER PER SHIFT VOLUME TPN IV @ 75 ML/HR MED/SURG DCP: HOME PLAN OF CARE: continue npo, TPN Mg infusion STAT CT abd+pelvis with oral and IV contrast CT GUIDED DRAIN PLACEMENT CATH
--- NOTE | 2020-08-14 15:30 | NUR ---
NURSE NOTES: Orders for STAT CT guided insertion and drainage catheter due to abdominal abscess per Dr. Meadows, reviewed with patient, verbalized understanding, consent signed. Lissette ileostomy appliance leaking, dressing, skin care provided, appliance changed with Pamela CRUMP Sent down at 1410 via bed on RA, in stable condition, returned at 1520. Addendum: 08/14/20 at 2012 by Zulema Potter RN Small 2x2 gauze with tegederm to aspiration site, scant bleeding surrounding, gauze is CDI.
--- NOTE | 2020-08-14 15:36 | Pre-Procedure Note/Attestation ---
Pre-Procedure Note/Attestation Complete Prior to Procedure Planned Procedure: not applicable Procedure Narrative: aspiration of abdominal fluid collection Indications for Procedure Pre-Operative Diagnosis: postop fluid collection Attestation I attest that I discussed the nature of the procedure; its benefits; risks and complications; and alternatives (and the risks and benefits of such al ternatives), prior to the procedure, with the patient (or the patient's legal graphic art sales representative). I attest that, if there was a reasonable possibility of needing a blood transfusion, the patient (or the patient's legal graphic art sales representative) was given the [place] [employer] standardized written summary, pursuant to the [place] Blood Safety Act ([place] Health and Safety Code # 1645, as amended). I attest that I re-evaluated the patient just prior to the surgery and that there has been no change in the patient's H&P, except as documented below: Yonatan Weaver MD Aug 14, 2020 15:36
--- NOTE | 2020-08-14 16:44 | NUR ---
NURSE NOTES:Ostomy Notes: Met with patient to initiate instructions on care of Ileostomy. Primary Nurse stated appliance recently changed.Small amt effluent noted in pouch. Per Charge Nurse appliance was changed twice this shift secondary to unable to maintain seal over site of abdominal incision. Primary nurse given instructions on repositioning wafer and instructed to apply additional barrier ring under wafer to maintain seal. Pt informed would initiate teaching next visit.
--- NOTE | 2020-08-14 18:30 | NUR ---
NURSE NOTES: Michael wound nurse, evaluated patient after return from CT guided aspiration, instructed to change Lissette ileostomy as follows: skin prep pads to surrounding skin, apply cohesive pad, then additional cut pieces of cohesive pad to top and bottom where leak issues are, then moldable ostomy appliance with bag, slanted due to lu surgical site. Lissette ileostomy changed again at this time, due to leaking, changed by Pamela RN, as instructed above, additional supplies at bedside, will endorse to next shift.
--- NOTE | 2020-08-14 19:14 | NUR ---
NURSE HAND-OFF: Important Events on Shift:CT abdomen/pelvis done, CT guided drainage/aspiration of abdominal fluid, Lissette ileostomy appliance changed x3 (1040, 1330, 1830), MG x4 bags given Patient Status: stable Diet: NPO (ice/sips with meds) Outputs: Urine: 1225 ml SAMARA: 5 ml Lissette: 60 ml Pending Orders: if temperature > 100.3 obtain blood cultures x2 Pending Results/Labs:CBC CMP MG PHOS 08/15 Pending MD notification:none Latest Vital Signs: Temperature 98.4 , Pulse 106 , B/P 130 /71 , Respiratory Rate 20 , O2 SAT 94 , Room Air, O2 Flow Rate 3.0 . Vital Sign Comment: none Latest Henry Fall Score: 45 Fall Risk: High Risk Safety Measures: Call light Within Reach, Bed Alarm Zone 1, Side Rails Side Rails x2, Bed position Low and Locked. Fall Precautions: Yes Yellow Socks Door Sign Patient Fall Education Report given to Rosmery TRAMMELL.
--- NOTE | 2020-08-14 20:20 | NUR ---
NURSES NOTE: Pt in bed, A/OX4, denies pain currently. No outward s/s of distress noted. Breathing pattern is even and unlabored on RA. Lissette ileo RLQ, is in place, bag changed previous shift. R Chest subclavian central line noted running IVF without incident. Accucheck AC/HS. SURGERY CONSULTANT pump, Dilaudid noted- pt states current pain regimen is effective. Dressing, abdomen is clean, dry and intact. All due medications will be administered. Bed at lowest level, call light within reach. Pt will continue to be monitored.
[2020-08-14] MEDS: Dyna-Hex 2% Top Sol 2oz TOPIC SCH (20:37)
[2020-08-14] MEDS: TraZODone 100mg tab ORAL SCH (20:38)
[2020-08-14] MEDS: Iron Sucrose 100 MG in NS 55 ML IVPB SCH (20:38)
[2020-08-14] MEDS: Fat Emulsion Iv 20% 216 ML in Tpn 1,584 ML IV SCH (20:41)
--- NOTE | 2020-08-14 22:30 | NUR ---
NURSES NOTE: Pt had episode of projectile emesis x2. Unable to record cc. Green in color.
[2020-08-15] MEDS: LORazepam 1mg tab SL PRN ×2 (00:39→12:16)
[2020-08-15 04:00] VITALS: BP 109/64
[2020-08-15] MEDS: NS w/KCl 20mEq 1000ml 1,000 ML IV SCH (05:45)
[2020-08-15 05:48] LABS: ALANINE AMINOTRANSFERASE 20 U/L (12-78); ALBUMIN 1.7 G/DL (3.4-5.0); ALBUMIN/GLOBULIN RATIO 0.5 (1.0-2.7); ALKALINE PHOSPHATASE 238 U/L (46-116); ASPARTATE AMINO TRANSFERASE 35 U/L (15-37); BILIRUBIN,TOTAL 1.3 MG/DL (0.2-1.0); BLOOD UREA NITROGEN 10 mg/dL (7-18); CALCIUM 8.1 MG/DL (8.5-10.1); CHLORIDE 102 MMOL/L (98-107); CREATININE 0.8 MG/DL (0.55-1.30); PHOSPHORUS 3.5 MG/DL (2.5-4.9); POTASSIUM 4.1 MMOL/L (3.5-5.1); SODIUM 136 MMOL/L (136-145)
[2020-08-15] MEDS: NovoLOG Insulin Flexpen SUBQ SCH ×5 (05:51→23:59)
[2020-08-15 06:03] LABS: BILIRUBIN,DIRECT 0.8 MG/DL (0.0-0.3)
[2020-08-15 06:42] LABS: CARBON DIOXIDE 22 MMOL/L (21-32)
--- NOTE | 2020-08-15 06:54 | NUR ---
NURSE HAND-OFF: Important Events on Shift:[Projectile emesis x2, unable to record cc. Green in color. Perhaps as a result of Venofer. Pls give Zofran before next dose.] Patient Status: [STABLE] Diet: [NPO] Pending Orders: [NONE] Pending Results/Labs:[CBC, sample did not contain enough blood. Lab will redraw.] Pending MD notification:[Emesis x2] Latest Vital Signs: Temperature 99.5 , Pulse 108 , B/P 109 /64 , Respiratory Rate 18 , O2 SAT 93 , Room Air, O2 Flow Rate 3.0 . Vital Sign Comment: [wnl] Latest Henry Fall Score: 45 Fall Risk: High Risk Safety Measures: Call light Within Reach, Bed Alarm Zone 1, Side Rails Side Rails x2, Bed position Low and Locked. Fall Precautions: Yellow Socks Door Sign Patient Fall Education Report given to [].
[2020-08-15] MEDS: PCA shift volume MISC SCH ×2 (07:00→19:00)
--- NOTE | 2020-08-15 07:16 | NUR ---
HAND OFF: Report given to VALERI Lott
[2020-08-15 08:00] VITALS: BP 121/71
--- NOTE | 2020-08-15 08:07 | NUR ---
NURSE NOTES: Received report from VALERI Botello. Pt awake in bed on RA, A/OX4, able to make needs known. Breathing even and unlabored. Denies any pain at this time. Lissette ileo RLQ is in place, intact and patent. R Chest subclavian central line intact and running IVF without incident. Noted STRAIGHTENER HAND pump, checked setting. Dressing clean, dry and intact. Bed at lowest level, call light within reach. Pt will continue to be monitored.
[2020-08-15] MEDS ORDERED: PCA HYDROmorphone 1mg/ml 30 ML IV PRN ×2 (09:14→10:00)
[2020-08-15] MEDS: Meloxicam 15 MG TAB ORAL SCH (09:14)
[2020-08-15] MEDS: BuPROPion SR 100mg tab ORAL SCH (09:14)
[2020-08-15] MEDS: Pantoprazole Inj IVP SCH (09:14)
[2020-08-15] MEDS: Citalopram Hydrobromide 10mg Tab ORAL SCH (09:14)
--- NOTE | 2020-08-15 09:14 | General Progress Note ---
Subjective ROS Limited/Unobtainable: Yes Allergies: Coded Allergies: CEFEPIME (Verified Adverse Reaction, Severe, 08/05/20) causes low platlets ADHESIVE TAPE (Verified Adverse Reaction, Intermediate, Rash, 08/27/19) CLEAR TAPE Objective Last 24 Hour Vital Signs Date Time Temp Pulse Resp B/P (MAP) Pulse Ox O2 Delivery O2 Flow Rate FiO2 08/15/20 08:00 100.7 101 20 121/71 (88) 93 08/15/20 04:00 99.5 108 18 109/64 (79) 93 08/15/20 04:00 108 18 93 08/15/20 01:32 108 18 141/69 92 08/15/20 00:39 108 18 141/69 92 08/14/20 23:03 98.7 08/14/20 21:00 Room Air 08/14/20 20:00 100.0 108 18 141/69 (93) 92 08/14/20 20:00 108 18 92 08/14/20 19:20 95 Room Air 21 08/14/20 16:00 106 20 94 08/14/20 15:02 98.4 105 30 126/58 (80) 95 08/14/20 14:57 98.6 107 31 125/70 (88) 96 08/14/20 14:52 98.0 104 32 125/59 (81) 96 08/14/20 14:39 104 25 08/14/20 12:00 96 18 93 08/14/20 12:00 99.0 96 18 121/67 (85) 93 08/14/20 10:40 Room Air 08/14/20 10:00 97 Room Air 21 Intake and Output 08/14/20 08/15/20 19:00 07:00 Intake Total 1100 ml Output Total 1290 ml 945 ml Balance -190 ml -945 ml IV Total 1100 ml Output Urine Total 1225 ml 900 ml Drainage Total 5 ml 5 ml Other 60 ml 40 ml # Voids 11 3 Laboratory Tests 08/14/20 09:55: Prothrombin Time 12.3H, Prothromb Time International Ratio 1.1 08/14/20 12:49: POC Whole Blood Glucose 118H 08/14/20 18:13: POC Whole Blood Glucose 111H 08/15/20 00:28: POC Whole Blood Glucose 94 08/15/20 05:00: Sodium Level 136, Potassium Level 4.1, Chloride Level 102, Carbon Dioxide Level 22, Blood Urea Nitrogen 10, Creatinine 0.8, Estimat Glomerular Filtration Rate > 60, Glucose Level 112H, Calcium Level 8.1L, Phosphorus Level 3.5, Magnesium Level 1.9, Total Bilirubin 1.3H, Direct Bilirubin 0.8H, Aspartate Amino Transf (AST/SGOT) 35, Alanine Aminotransferase (ALT/SGPT) 20, Alkaline Phosphatase 238H , Total Protein 5.2L, Albumin 1.7L, Globulin 3.5, Albumin/Globulin Ratio 0.5L 08/15/20 05:49: POC Whole Blood Glucose [Pending] Height (Feet): 5 Height (Inches): 5.00 Weight (Pounds): 126 General Appearance: lethargic EENT: normal ENT inspection Neck: normal alignment Cardiovascular: normal rate Respiratory/Chest: decreased breath sounds Abdomen: hypoactive bowel sounds, tender Extremities: non-tender Assessment/Plan Assessment/Plan: Malfunctioning Kock pouch with inability to intubate with resulting functional small-bowel obstruction s/p removal of Kock pouch with conventional ileostomy last week TPN/npo c/o nausea CT; Impression: Postsurgical changes, as described 8.4 x 2 cm gas and fluid collection in the anterior pelvis, may represent a routine postsurgical collection could also be infected. Distended small bowel. Probably secondary to postoperative ileus but distal small bowel obstruction not excludable. Fluid within the vaginal vault. Significance uncertain. Gas within the bladder, likely related to recent instrumentation. Bilateral moderate pleural effusions. Resultant passive atelectasis at both lung bases. Degenerative spondylosis pending CT guided drainage will fu repeat labs in am fu surg recs pain control on [employer] pump Adrian Morrison MD Aug 15, 2020 09:14
[2020-08-15] MEDS ORDERED: NS 500ML ONE (09:19)
--- NOTE | 2020-08-15 09:39 | NUR ---
NURSE NOTES: Temp 100.7. Pt stated feeling cold. provided warm blanket and Tylenol 650mg PRN for fever as ordered. Will continue to monitor. aware.
[2020-08-15 09:52] LABS: HEMATOCRIT 25.9 % (37.0-47.0); HEMOGLOBIN 8.9 G/DL (12.0-16.0); MEAN CORPUSCULAR VOLUME 90 FL (80-99); PLATELET COUNT 294 K/UL (150-450); RED BLOOD COUNT 2.87 M/UL (4.20-5.40); RED CELL DISTRIBUTION WIDTH 11.9 % (11.6-14.8); WHITE BLOOD COUNT 11.2 K/UL (4.8-10.8)
--- NOTE | 2020-08-15 09:55 | General Progress Note ---
Progress Note Progress Note T 100.7 Ct yesterday shows dilated bowel down to ileostomy, small fluid collection aspirated - serous. Had projectile emesis x 2 overnight Abdomen distended. Ileostomy pink Urine 2124 Ileostomy only 100cc despite po contrast SAMARA 10cc CBC pending chem okay except albumin 1.7 Imp: Fever ? etiology Distal SBO vs. prolonged ileus Plan: blood C&S x 2 via central line NG tube to suction ID re fever, antibiotics? continue npo, TPN Lalo Meadows MD Aug 15, 2020 09:55
[2020-08-15] MEDS ORDERED: Rate Change PCA 1 Each MISC PRN (10:00)
[2020-08-15] MEDS ORDERED: Acetaminophen 650mg/20.3ml NG PRN (10:15)
--- NOTE | 2020-08-15 10:40 | NUR ---
NURSE NOTES: Checked temp. after tylenol 650mg given for low grade fever. Temp 99.5. pt no c/o chill.
--- NOTE | 2020-08-15 11:00 | NUR ---
PT Note Attempted to see patient for treatment but patient was unable to participate. Attempted to sit at the EOB but patient became very nauseated. Patient requested to defer PT at this time. Patient was advised to perform all bed exercises that has been instructed to her previously. Patient verbalized her understanding.
[2020-08-15 11:34] LABS: ALANINE AMINOTRANSFERASE 24 U/L (12-78); ALBUMIN 1.6 G/DL (3.4-5.0); ALBUMIN/GLOBULIN RATIO 0.4 (1.0-2.7); ALKALINE PHOSPHATASE 229 U/L (46-116); ANION GAP 6 mmol/L (5-15); ASPARTATE AMINO TRANSFERASE 28 U/L (15-37); BILIRUBIN,TOTAL 1.2 MG/DL (0.2-1.0); BLOOD UREA NITROGEN 12 mg/dL (7-18); CALCIUM 7.9 MG/DL (8.5-10.1); CARBON DIOXIDE 27 MMOL/L (21-32); CHLORIDE 102 MMOL/L (98-107); CREATININE 0.8 MG/DL (0.55-1.30); POTASSIUM 3.9 MMOL/L (3.5-5.1); SODIUM 135 MMOL/L (136-145)
[2020-08-15 11:35] LABS: BILIRUBIN,DIRECT 0.9 MG/DL (0.0-0.3)
[2020-08-15 11:56] VITALS: BP 119/70
[2020-08-15 11:59] VITALS: BP 115/70
--- NOTE | 2020-08-15 13:00 | NUR ---
NURSE NOTES: NG tube placement done. 16fr, marked length 65cm. Pt vomited small amount , white & clear x3 during insertion of NG tube. waiting for x-ray confirmation
--- NOTE | 2020-08-15 14:28 | Diagnostic Imaging Report ---
FILM ABDOMEN HISTORY: Tube placement Comparison: August 12, 2020 Findings: Single view of the abdomen demonstrates enteric tube with tip in the region of the proximal stomach with cutaneous lu. Prominent air-filled loops of bowel. Heart size is within normal limits. Cutaneous lu in place. Right-sided ileostomy. No definite free air. Impression: Enteric tube with tip in the stomach. Persistent prominent air-filled loops of bowel from ileus or obstruction. No free air.
--- NOTE | 2020-08-15 14:33 | NUR ---
NURSE NOTES: X ray confirmed NG tube placement. Connected NG tube to suction with medium intermittent. Noted greenish contents output.
--- NOTE | 2020-08-15 15:40 | Infectious Diseases Prog Note ---
Assessment/Plan Assessment/Plan Full consult dictated: A) 1) post operative fevers and mild leukocytosis, ? ileus, ? sbo, ? early sepsis, effusion 2) s/p resection of failed Kock pouch with creation of conventional Lissette ileostomy - perioperative unasyn and flagyl given 3) pmh noted 4) allergies - cefepime - thrombocytopenia - side effect, not true allergy P) 1) empiric zosyn 2) monitor labs and temperatures 3) f/u chest x-ray 4) will f/u 5) thank you Subjective Allergies: Coded Allergies: CEFEPIME (Verified Adverse Reaction, Severe, 08/05/20) causes low platlets ADHESIVE TAPE (Verified Adverse Reaction, Intermediate, Rash, 08/27/19) CLEAR TAPE Objective Last 24 Hour Vital Signs Date Time Temp Pulse Resp B/P (MAP) Pulse Ox O2 Delivery O2 Flow Rate FiO2 08/15/20 12:46 100 20 115/70 93 08/15/20 12:16 100 20 115/70 93 08/15/20 11:59 99.4 100 20 115/70 (85) 93 08/15/20 11:56 105 20 93 08/15/20 09:30 96 Room Air 21 08/15/20 09:00 Room Air 08/15/20 08:00 101 20 93 08/15/20 08:00 100.7 101 20 121/71 (88) 93 08/15/20 04:00 99.5 108 18 109/64 (79) 93 08/15/20 04:00 108 18 93 08/15/20 01:32 108 18 141/69 92 08/15/20 00:39 108 18 141/69 92 08/14/20 23:03 98.7 08/14/20 21:00 Room Air 08/14/20 20:00 100.0 108 18 141/69 (93) 92 08/14/20 20:00 108 18 92 08/14/20 19:20 95 Room Air 21 08/14/20 16:00 106 20 94 Height (Feet): 5 Height (Inches): 5.00 Weight (Pounds): 126 Microbiology Date/Time Source Procedure Growth Status 08/14/20 15:15 Abdominal Fluid Gram Stain - Final Resulted 08/14/20 15:15 Abdominal Fluid Body Fluid Culture - Preliminary NO GROWTH Resulted Laboratory Tests Test 08/14/20 18:13 08/15/20 00:28 08/15/20 05:00 08/15/20 05:49 POC Whole Blood Glucose 111 MG/DL (74-106) H 94 MG/DL (74-106) Pending Sodium Level 136 MMOL/L (136-145) Potassium Level 4.1 MMOL/L (3.5-5.1) Chloride Level 102 MMOL/L (98-107) Carbon Dioxide Level 22 MMOL/L (21-32) Blood Urea Nitrogen 10 mg/dL (7-18) Creatinine 0.8 MG/DL (0.55-1.30) Estimat Glomerular Filtration Rate > 60 mL/min (>60) Glucose Level 112 MG/DL (74-106) H Calcium Level 8.1 MG/DL (8.5-10.1) L Phosphorus Level 3.5 MG/DL (2.5-4.9) Magnesium Level 1.9 MG/DL (1.8-2.4) Total Bilirubin 1.3 MG/DL (0.2-1.0) H Direct Bilirubin 0.8 MG/DL (0.0-0.3) H Aspartate Amino Transf (AST/SGOT) 35 U/L (15-37) Alanine Aminotransferase (ALT/SGPT) 20 U/L (12-78) Alkaline Phosphatase 238 U/L (46-116) H Total Protein 5.2 G/DL (6.4-8.2) L Albumin 1.7 G/DL (3.4-5.0) L Globulin 3.5 g/dL Albumin/Globulin Ratio 0.5 (1.0-2.7) L Test 08/15/20 09:10 08/15/20 10:55 08/15/20 11:55 White Blood Count 11.2 K/UL (4.8-10.8) H Red Blood Count 2.87 M/UL (4.20-5.40) L Hemoglobin 8.9 G/DL (12.0-16.0) L Hematocrit 25.9 % (37.0-47.0) L Mean Corpuscular Volume 90 FL (80-99) Mean Corpuscular Hemoglobin 31.1 PG (27.0-31.0) H Mean Corpuscular Hemoglobin Concent 34.4 G/DL (32.0-36.0) Red Cell Distribution Width 11.9 % (11.6-14.8) Platelet Count 294 K/UL (150-450) Mean Platelet Volume 6.3 FL (6.5-10.1) L Neutrophils (%) (Auto) % (45.0-75.0) Lymphocytes (%) (Auto) % (20.0-45.0) Monocytes (%) (Auto) % (1.0-10.0) Eosinophils (%) (Auto) % (0.0-3.0) Basophils (%) (Auto) % (0.0-2.0) Differential Total Cells Counted 100 Neutrophils % (Manual) 88 % (45-75) H Lymphocytes % (Manual) 6 % (20-45) L Monocytes % (Manual) 6 % (1-10) Eosinophils % (Manual) 0 % (0-3) Basophils % (Manual) 0 % (0-2) Band Neutrophils 0 % (0-8) Platelet Estimate Adequate Platelet Morphology Normal Hypochromasia 1+ Anisocytosis 1+ Sodium Level 135 MMOL/L (136-145) L Potassium Level 3.9 MMOL/L (3.5-5.1) Chloride Level 102 MMOL/L (98-107) Carbon Dioxide Level 27 MMOL/L (21-32) Anion Gap 6 mmol/L (5-15) Blood Urea Nitrogen 12 mg/dL (7-18) Creatinine 0.8 MG/DL (0.55-1.30) Estimat Glomerular Filtration Rate > 60 mL/min (>60) Glucose Level 104 MG/DL (74-106) Calcium Level 7.9 MG/DL (8.5-10.1) L Total Bilirubin 1.2 MG/DL (0.2-1.0) H Direct Bilirubin 0.9 MG/DL (0.0-0.3) H Aspartate Amino Transf (AST/SGOT) 28 U/L (15-37) Alanine Aminotransferase (ALT/SGPT) 24 U/L (12-78) Alkaline Phosphatase 229 U/L (46-116) H Total Protein 5.7 G/DL (6.4-8.2) L Albumin 1.6 G/DL (3.4-5.0) L Globulin 4.1 g/dL Albumin/Globulin Ratio 0.4 (1.0-2.7) L POC Whole Blood Glucose 117 MG/DL (74-106) H Current Medications Medications (Trade) Dose Ordered Sig/Jori Route PRN Reason Start Time Stop Time Status Last Admin Dose Admin Acetaminophen (Tylenol) 650 mg Q4H PRN NG Mild Pain or temp over 100.2 08/15/20 10:15 09/14/20 10:14 Barium Sulfate (Readi-Cat 2) 450 ml NOW PRN ORAL Radiology Procedure 08/14/20 09:30 08/16/20 09:29 Bupropion HCl (Wellbutrin SR) 200 mg TWICE A DAY ORAL 08/12/20 09:00 09/11/20 08:59 Hold 08/15/20 09:14 Chlorhexidine Gluconate (Kathryn-Hex 2%) 1 applic DAILY@2000 TOPIC 08/07/20 20:15 11/05/20 20:14 08/14/20 20:37 Citalopram Hydrobromide (CeleXA) 10 mg DAILY GT 08/16/20 09:00 09/15/20 08:59 Dextrose 1,000 ml @ 0 mls/hr Q24H PRN IV PN interrupted or unavailable 08/05/20 20:00 09/04/20 19:59 Dextrose (Dextrose 50%) 25 ml Q30M PRN IV Hypoglycemia 08/05/20 20:00 11/03/20 19:59 Dextrose (Dextrose 50%) 50 ml Q30M PRN IV Hypoglycemia 08/05/20 20:00 11/03/20 19:59 Diphenhydramine HCl (Benadryl) 50 mg Q4H PRN IVP Itching/Pruritis 08/13/20 09:15 09/12/20 09:14 Fat Emulsion Intravenous 216 ml/Amino Acids/ Electrolytes/ Dextrose 1,800 ml @ 75 mls/hr Q24H IV 08/05/20 20:00 09/04/20 19:59 08/14/20 20:41 Folic Acid (Folate) 1 mg DAILY NG 08/16/20 09:00 09/15/20 08:59 Hydromorphone HCl 30 ml @ 0 mls/hr Q24H PRN IV For Pain 08/15/20 10:00 08/17/20 09:59 Hydromorphone HCl (Dilaudid) 1 mg Q3H PRN SUBQ Severe Breakthru Pain (>7) 08/11/20 09:48 08/18/20 09:47 Insulin Aspart (NovoLOG) Q6HR SUBQ 08/06/20 00:00 11/04/20 00:00 08/06/20 17:38 Iohexol (OMNIPAQUE-300 100ml) 100 ml NOW PRN INJ Radiology Procedure 08/14/20 09:30 08/16/20 09:29 Iron Sucrose 100 mg/Sodium Chloride 60 ml @ 240 mls/hr BEDTIME IVPB 08/14/20 21:00 08/18/20 21:14 08/14/20 20:38 Lorazepam (Ativan) 1 mg Q4H PRN SL Muscle Spasm 08/13/20 09:15 08/20/20 09:14 08/15/20 12:16 Meloxicam (Mobic) 15 mg DAILY NG 08/16/20 09:00 09/15/20 08:59 Miscellaneous Medication (CARAMEL CANDY MAKER HELPER Rate Change) 1 ea DAILY PRN MISC rate change 08/15/20 10:00 08/17/20 09:59 Miscellaneous Medication (CARAMEL CANDY [employer] HELPER shift volume) 1 ea Q12HR@0700,1900 MISC 08/15/20 19:00 08/17/20 18:59 Naloxone HCl (Narcan) 0.1 mg Q1M PRN IVP RR<10/min OR SBP<90 mmHg 08/08/20 09:10 11/06/20 09:09 Ondansetron HCl (Zofran) 4 mg Q4H PRN IVP Nausea & Vomiting 08/06/20 15:00 09/05/20 14:59 08/14/20 10:09 Ondansetron HCl (Zofran) 4 mg Q4H PRN NG Nausea & Vomiting 08/15/20 10:15 09/14/20 10:14 Pantoprazole (Protonix) 40 mg DAILY IVP 08/07/20 09:00 09/06/20 08:59 08/15/20 09:14 Patient Own Medication (Patient's Own Med) 1 ea DAILY ORAL 08/15/20 09:00 09/14/20 08:59 Hold 08/15/20 09:14 Phytonadione (Vitamin K) 10 mg ONCE A WEEK SUBQ 08/05/20 10:00 11/03/20 09:59 08/12/20 09:59 Potassium Chloride/Sodium Chloride 1,000 ml @ 25 mls/hr Q24H IV 08/08/20 10:00 09/07/20 09:59 08/15/20 05:45 Simethicone (Mylicon) 80 mg QIDPRN PRN NG Abdominal cramps, gas 08/15/20 10:15 11/13/20 10:14 Sodium Bicarbonate (Sodium Bicarbonate 4%) 1 ml NOW PRN IV Radiology Procedure 08/14/20 13:45 08/16/20 13:44 Trazodone HCl (Desyrel) 200 mg BEDTIME NG 08/15/20 21:00 09/14/20 20:59 Osmin Bermudez MD Aug 15, 2020 15:40
[2020-08-15 16:00] VITALS: BP 117/62
[2020-08-15 18:13] LABS: APPEARANCE,URINE CLEAR; BILIRUBIN, URINE NEGATIVE (NEGATIVE); COLOR,URINE PALE YELLOW; GLUCOSE, URINE (UA) NEGATIVE (NEGATIVE); KETONES,URINE NEGATIVE (NEGATIVE); LEUKOCYTE ESTERASE ,URINE NEGATIVE (NEGATIVE); NITRITE,URINE NEGATIVE (NEGATIVE); PH,URINE 7 (4.5-8.0); PROTEIN,URINE NEGATIVE (NEGATIVE); UROBILINOGEN,URINE NORMAL MG/DL (0.0-1.0)
--- NOTE | 2020-08-15 18:29 | Consultation ---
DATE OF CONSULTATION: 08/15/2020 INFECTIOUS DISEASE CONSULTATION CONSULTING PHYSICIAN: Osmin Bermudez MD. ATTENDING PHYSICIAN: Lalo Meadows MD. REFERRING PHYSICIAN: Lalo Meadows MD. REASON FOR CONSULTATION: Fevers, elevated white count, questionable sepsis, questionable bowel obstruction versus ileus, possible PICC line infection. CHIEF COMPLAINT: The patient's chief complaint coming in the hospital is malfunctioning Kock pouch continent ileostomy. HISTORY OF PRESENT ILLNESS: This is a very pleasant 69-year-old female who comes into [facility] with inability to catheterize her Kock pouch continent ileostomy to evacuate stool. She has a history of ulcerative colitis and had undergone proctocolectomy with Kock pouch, requiring also revision of complicated bowel obstruction revision of pouch, and also had recent bowel resection and release of severe high-grade bowel obstruction complicated by abscess, status post treatment and drainage. The patient is status post failed Kock pouch with creation of a conventional Lissette ileostomy. The patient had perioperative Unasyn and Flagyl. The patient now has fevers and mild elevated white count. Infectious Disease consultation requested. A CT scan of the abdomen and pelvis showed the following; it showed gas and fluid collection in the anterior pelvis, which could be a postsurgical collection versus infected collection. The patient also had distended small bowel, ileus versus bowel obstruction. The patient's aspiration of the fluid collection was serous in nature and the culture from that is negative. The patient currently is not on antibiotics. Again, the patient did have Unasyn and Flagyl perioperatively. The patient's recent urine culture is negative, body fluid cultures is negative. The patient does have a PICC line. Blood cultures ordered today. Chest x-ray on the did have effusions. I repeated chest x-ray because of left pleural effusion. Again, Infectious Disease consultation requested for antibiotic management. The patient has been empirically started on Zosyn. REVIEW OF SYSTEMS: CONSTITUTIONAL: Generalized fatigue. She has an NG tube. She does not have a Busch. She has a PICC line. She is responsive. HEAD AND NECK: No head pain or neck pain. CARDIAC: No chest pain. GASTROINTESTINAL: She has NG tube. No nausea, vomiting, or abdominal pain. GENITOURINARY: She has no Busch. No CVA tenderness. PULMONARY: No significant cough, congestion, or shortness of breath. SKIN: No rash. EXTREMITIES: No extremity pain. NEUROLOGICAL: Generalized fatigue and weakness. No seizure activity. PAST MEDICAL HISTORY: The patient has a past medical history of Kock pouch ileostomy, status post revision. The patient also has history of ulcerative colitis, status post proctocolectomy. The patient is status post resection of the Kock pouch ileostomy, and now the patient has a Lissette ileostomy. The patient also has history of multiple abdominal surgeries including proctocolectomy for ulcerative colitis. She has history also of parathyroid adenoma resection, history of small bowel obstruction, history of intra-abdominal abscess, and history of spine surgery. ALLERGIES: She has allergies to adhesive tape and cefepime, but cefepime allergy was more thrombocytopenia no true allergies, more of a side effect. SOCIAL HISTORY: Negative for smoking, alcohol, and drug abuse. FAMILY HISTORY: Noncontributory. Negative for tuberculosis or cancer. MEDICATIONS: Upon reviewing the MAR, she is on following medications. Perioperatively she got Unasyn and Flagyl. There had been discontinued. She is also on meloxicam and folic acid. I put her on Zosyn, trazodone. She is on , Zofran, acetaminophen as needed acid, hydromorphone as needed, iron, bicarbonate, barium sulfate, hydromorphone, potassium, meloxicam, chlorhexidine, pantoprazole, Zofran. Outside medications noted and reconciliated. PHYSICAL EXAMINATION: VITAL SIGNS: Temperature 99.4, pulse rate 100, respiratory rate 20, and blood pressure 115/70. Saturation 93% to 96% on room air. Her T-max is 100.7 and she has been having consistent fevers over the last several days. Heart rate has been as high as 105 and 108. GENERAL: Alert and responsive. HEAD AND NECK: Oral exam, no thrush. Eye exam, no icterus. Normocephalic. Neck is supple. She has an NG tube. HEART: Regular. No gallop or murmur. No friction rub. LUNGS: Clear bilaterally. No rhonchi or rales with decreased breath sounds. ABDOMEN: Soft. Positive bowel sounds. Some discomfort, but no rebound. Her abdominal wound looks fairly clean incision. No obvious cellulitis or drainage. MUSCULOSKELETAL: No effusions. Legs are without cellulitis. PERIPHERAL VASCULAR: No cyanosis or gangrene. SKIN: No other rash. GENITOURINARY: No Busch. LINE SITES: She has a PICC line. No phlebitis. NEUROLOGIC: Generalized weakness. Responsive. Nonfocal. LABORATORY DATA: White count 11.2, hemoglobin 8.9. Creatinine is 0.8. LFTs were noted. Total bilirubin is 1.2 to 1.3, direct 0.9. Alkaline phosphatase is 229. Most recent UA had 0 to 2 white cells. Cultures, body fluid culture from aspiration was negative. Urine culture negative, recent on 08/11/2020. C. diff is negative. I have repeated cultures for UA. She has also had blood cultures ordered. IMAGING STUDIES: The patient had a CT scan of the abdomen and pelvis, which showed postsurgical changes and a fluid collection in the anterior pelvis. Also distended small bowel, ileus versus bowel obstruction. Repeat cultures are pending. ASSESSMENT AND PLAN: 1. The patient has postoperative fevers. The patient is status post resection of failed Kock pouch and creation of a conventional Lissette ileostomy. The patient did receive Unasyn and Flagyl perioperatively. The patient now has fevers, elevated white count, questionable sepsis. She has been tachycardic. Questionable bowel obstruction versus ileus. Fluid collection does not seem to be infected with serous drainage on aspiration and culture being negative. At this time, I will place the patient on empiric Zosyn for gram-negative anaerobic coverage. Continue Zosyn for possible sepsis, elevated white count, fevers, and bowel obstruction. Monitor the patient clinically. The patient also has a PICC line. This also could be a source of infection and we will get blood cultures. If positive, then consider starting vancomycin. I will try to avoid vancomycin if possible just because the combination of vancomycin and Zosyn could increase chance of renal failure. Continue antibiotics with Zosyn. Check followup on cultures and laboratories. Also check chest x-ray because of recent effusion. If the effusion gets worse, consider also getting pulmonary evaluation. 2. 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 3. The patient has a history of intra-abdominal abscess and bowel obstruction in the past, status post surgery and drainage. 4. The patient has history of ulcerative colitis. 5. History of proctocolectomy. 6. History of multiple abdominal operations. 7. History of parathyroid adenoma resection. 8. History of spinal surgery. 9. Continue management per Dr. Meadows. 10. Past medical history is noted. 11. Allergies to adhesive tape and cefepime. The cefepime allergy was thrombocytopenia, not a true allergy, more of a side effect. Case was discussed with pharmacy and it should be safe to give Zosyn since the patient was on Unasyn. 12. Social history is negative. 13. Family history is noncontributory. 14. MAR is noted. 15. Case was discussed with RN. 16. Continue treatment per primary consultants, Dr. Meadows. Osmin Bermudez M.D. DR: BECCA JOB#: [id number] CC: MICHELLE
--- NOTE | 2020-08-15 19:30 | NUR ---
NURSE NOTES: received pt and report from VALERI Lott. pt alert and oriented x 4, in no acute distress and no co pain. [employer] COUNTER PERSON noted and running, NG tube noted and connected to suction, Central line noted clean dry and intact. ileostomy noted and draining. surgical dressing clean dry and intact. plan of care discussed.
--- NOTE | 2020-08-15 19:35 | NUR ---
NURSE HAND-OFF: Important Events on Shift:[low grade fever, Blood culture pending, NG tube inserted to suction, UA done, start IV ATB, ] Patient Status: [weak] Diet: [NPO] Pending Orders: [] Pending Results/Labs:[Blood culture] Pending MD notification:[] Latest Vital Signs: Temperature 98.0 , Pulse 97 , B/P 117 /62 , Respiratory Rate 20 , O2 SAT 93 , Room Air, O2 Flow Rate 3.0 . Vital Sign Comment: [stable] Latest Henry Fall Score: 45 Fall Risk: High Risk Safety Measures: Call light Within Reach, Bed Alarm Zone 1, Side Rails Side Rails x2, Bed position Low and Locked. Fall Precautions: Yellow Socks Door Sign Patient Fall Education Report given to [VALERI Christian].
[2020-08-15 20:00] VITALS: BP 142/88
[2020-08-15] MEDS: Fat Emulsion Iv 20% 216 ML in Tpn 1,584 ML IV SCH (20:20)
[2020-08-15] MEDS: Dyna-Hex 2% Top Sol 2oz TOPIC SCH (20:21)
[2020-08-15] MEDS: Iron Sucrose 100 MG in NS 55 ML IVPB SCH (20:22)
[2020-08-15] MEDS: TraZODone 100mg tab NG SCH ×2 (20:23→20:46)
--- NOTE | 2020-08-15 21:34 | NUR ---
NURSE NOTES: patient complaining of anxiety and requesting IV medication. vital signs stable. no co pain. Dr. Meadows contacted, will await orders.
--- NOTE | 2020-08-15 21:42 | NUR ---
NURSE NOTES: Dr. Dori ELLIS for Compazine PRN for anxiety. Will input orders as Dr. Meadows requested.
[2020-08-16] VITALS (7 sets, daily range): BP systolic 112–132; BP diastolic 67–82
--- NOTE | 2020-08-16 03:21 | NUR ---
NURSE NOTES: dressing changed. little amount of thick serosanguineous drainage from lowest 3 to 4 staple sites of surgical wound noted. no sign of infection. pt tolerated well. vital signs stable. no co pain. patient in no acute distress.
[2020-08-16 05:30] LABS: HEMATOCRIT 24.5 % (37.0-47.0); HEMOGLOBIN 8.5 G/DL (12.0-16.0); MEAN CORPUSCULAR VOLUME 90 FL (80-99); PLATELET COUNT 340 K/UL (150-450); RED BLOOD COUNT 2.71 M/UL (4.20-5.40); RED CELL DISTRIBUTION WIDTH 12.1 % (11.6-14.8); WHITE BLOOD COUNT 15.5 K/UL (4.8-10.8)
[2020-08-16] MEDS: NovoLOG Insulin Flexpen SUBQ SCH ×3 (05:30→17:45)
[2020-08-16] MEDS: NS w/KCl 20mEq 1000ml 1,000 ML IV SCH (05:30)
--- NOTE | 2020-08-16 05:30 | NUR ---
NURSE NOTES: output from NG tube total was 20ml. gastric drainage was light yellow in color with tinges of blood scattered in the fluid. no foul odor present.
[2020-08-16 05:49] LABS: PHOSPHORUS 3.3 MG/DL (2.5-4.9)
[2020-08-16 05:57] LABS: ALANINE AMINOTRANSFERASE 25 U/L (12-78); ALBUMIN 1.6 G/DL (3.4-5.0); ALBUMIN/GLOBULIN RATIO 0.4 (1.0-2.7); ALKALINE PHOSPHATASE 253 U/L (46-116); ANION GAP 6 mmol/L (5-15); ASPARTATE AMINO TRANSFERASE 25 U/L (15-37); BILIRUBIN,TOTAL 1.4 MG/DL (0.2-1.0); BLOOD UREA NITROGEN 15 mg/dL (7-18); CALCIUM 7.9 MG/DL (8.5-10.1); CARBON DIOXIDE 26 MMOL/L (21-32); CHLORIDE 103 MMOL/L (98-107); CREATININE 0.8 MG/DL (0.55-1.30); POTASSIUM 3.8 MMOL/L (3.5-5.1); SODIUM 135 MMOL/L (136-145)
--- NOTE | 2020-08-16 06:10 | NUR ---
NURSE NOTES: patient shivering and anxious. retook temperature and it was at 100.3, administered PRN Tylenol for fever and compazine for the anxiety. will reassess temperature when time.
[2020-08-16] MEDS: PCA shift volume MISC SCH (07:00)
--- NOTE | 2020-08-16 07:05 | NUR ---
NURSE NOTES: pt current temperature at 99.3 down from 100.3 after reassessing for administration of tylenol. Pt also states that she is feeling better after taking Compazine for anxiety. Patient now lying in bed in no acute distress and no co pain. will endorse plan of care to oncoming nurse.
[2020-08-16 07:12] LABS: BILIRUBIN,DIRECT 0.9 MG/DL (0.0-0.3)
--- NOTE | 2020-08-16 07:50 | NUR ---
NURSE HAND-OFF: Important Events on Shift:anxiety management, pain management Patient Status: stable but she is anxious Diet: NPO Pending Orders: NA Pending Results/Labs:NA Pending MD notification:NA Latest Vital Signs: Temperature 99.3 , Pulse 109 , B/P 128 /76 , Respiratory Rate 15 , O2 SAT 94 , Room Air, O2 Flow Rate 3.0 . Vital Sign Comment: stable but she runs tachycardic Latest Henry Fall Score: 45 Fall Risk: High Risk Safety Measures: Call light Within Reach, Bed Alarm Zone 1, Side Rails Side Rails x2, Bed position Low and Locked. Fall Precautions: Yellow Socks Door Sign Patient Fall Education Report given to VALERI Avery.
--- NOTE | 2020-08-16 08:03 | NUR ---
RADIOLOGY NOTE: PORTABLE CHEST X-RAY COMPLETED AT 0741 HRS. FSergey HARO
--- NOTE | 2020-08-16 08:23 | NUR ---
NURSE NOTES: Received report from Gino TRAMMELL. Patient is awake and oriented, in no apparent distress. Received call from Dr. Meadows, order received to remove NG tube, NG tube removed as ordered and patient tolerated well. IVF and TPN running via right upper chest central line, dressing dry and intact. Surgical site dressing clean, dry, intact. SAMARA compressed, RLQ ileostomy appliance in place with no leaking noted, stoma bright red, brown stool noted coming from ileostomy. CODING FILE CLERK settings checked and verified against order. Patient updated on plan of care for the day. Side rails upx2, bed low and locked, call light within reach.
[2020-08-16] MEDS ORDERED: Meloxicam 15 MG TAB NG SCH (09:00)
[2020-08-16] MEDS ORDERED: Citalopram Hydrobromide 10mg Tab GT SCH (09:00)
[2020-08-16] MEDS ORDERED: NS Irrig 1000ml ONE (09:15)
[2020-08-16] MEDS ORDERED: Tubing IV Secondary IV ONE (09:15)
--- NOTE | 2020-08-16 09:17 | Diagnostic Imaging Report ---
EXAM: XR Chest, 1 View CLINICAL HISTORY: INFECT TECHNIQUE: Frontal view of the chest. COMPARISON: Chest radiograph August 11, 2020 FINDINGS/IMPRESSION: Enteric feeding tube terminates in the stomach. Right IJ catheter terminates in the superior vena cava. Mild vascular congestion and trace bilateral pleural effusions. The size of the left pleural effusion has improved when compared to August 11, 2020. No pneumothorax. Cardiomegaly.
[2020-08-16] MEDS: Meloxicam 15 MG TAB ORAL SCH (09:28)
[2020-08-16] MEDS: Citalopram Hydrobromide 10mg Tab ORAL SCH (09:28)
[2020-08-16] MEDS: Pantoprazole Inj IVP SCH (09:28)
[2020-08-16] MEDS ORDERED: HYDROmorphone 1mg/ml Carpuject SUBQ PRN (09:48)
--- NOTE | 2020-08-16 09:50 | General Progress Note ---
Progress Note Progress Note T 100.3 No NG output and no further emesis so NG removed. 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
--- NOTE | 2020-08-16 09:56 | General Progress Note ---
Subjective ROS Limited/Unobtainable: Yes Allergies: Coded Allergies: CEFEPIME (Verified Adverse Reaction, Severe, 08/05/20) causes low platlets ADHESIVE TAPE (Verified Adverse Reaction, Intermediate, Rash, 08/27/19) CLEAR TAPE Objective Last 24 Hour Vital Signs Date Time Temp Pulse Resp B/P (MAP) Pulse Ox O2 Delivery O2 Flow Rate FiO2 08/16/20 08:00 16 08/16/20 08:00 98.4 108 16 112/69 (83) 95 08/16/20 07:20 96 Room Air 21 08/16/20 06:54 99.3 08/16/20 03:56 109 15 94 08/16/20 03:55 99.3 109 15 128/76 (93) 94 08/16/20 00:00 102 20 95 08/16/20 00:00 99.0 102 20 132/73 (92) 95 08/15/20 21:00 Room Air 08/15/20 20:00 98.9 100 19 142/88 (106) 100 08/15/20 20:00 100 19 100 08/15/20 19:30 94 Room Air 21 08/15/20 18:31 98.0 08/15/20 16:00 97 20 93 08/15/20 16:00 98.0 97 20 117/62 (80) 93 08/15/20 12:46 100 20 115/70 93 08/15/20 12:16 100 20 115/70 93 08/15/20 11:59 99.4 100 20 115/70 (85) 93 08/15/20 11:56 105 20 93 Intake and Output 08/15/20 08/16/20 19:00 07:00 Intake Total 1000 ml Output Total 1253 ml 987 ml Balance -1253 ml 13 ml IV Total 1000 ml Output Urine Total 1100 ml 700 ml Gastric Drainage Total 20 ml Drainage Total 3 ml 2 ml Other 150 ml 265 ml # Voids 8 6 Laboratory Tests 08/15/20 10:55: Sodium Level 135L, Potassium Level 3.9, Chloride Level 102, Carbon Dioxide Level 27, Anion Gap 6, Blood Urea Nitrogen 12, Creatinine 0.8, Estimat Glomerular Filtration Rate > 60, Glucose Level 104, Calcium Level 7.9L, Total Bilirubin 1.2H, Direct Bilirubin 0.9H, Aspartate Amino Transf (AST/SGOT) 28, Alanine Aminotransferase (ALT/SGPT) 24, Alkaline Phosphatase 229H, Total Protein 5.7L, Albumin 1.6L, Globulin 4.1, Albumin/Globulin Ratio 0.4L 08/15/20 11:55: POC Whole Blood Glucose 117H 08/15/20 16:43: Urine Color Pale yellow, Urine Appearance Clear, Urine pH 7, Urine Specific [place] 1.005, Urine Protein Negative, Urine Glucose (UA) Negative, Urine Ketones Negative, Urine Blood Negative, Urine Nitrite Negative, Urine Bilirubin Negative, Urine Urobilinogen Normal, Urine Leukocyte Esterase Negative 08/15/20 23:50: POC Whole Blood Glucose 115H 08/16/20 04:50: White Blood Count 15.5H, Red Blood Count 2.71L, Hemoglobin 8.5L, Hematocrit 24.5L, Mean Corpuscular Volume 90, Mean Corpuscular Hemoglobin 31.5H, Mean Corpuscular Hemoglobin Concent 34.8, Red Cell Distribution Width 12.1, Platelet Count 340, Mean Platelet Volume 6.3L, Neutrophils (%) (Auto) , Lymphocytes (%) (Auto) , Monocytes (%) (Auto) , Eosinophils (%) (Auto) , Basophils (%) (Auto) , Differential Total Cells Counted 100, Neutrophils % (Manual) 85H, Lymphocytes % (Manual) 6L, Monocytes % (Manual) 8, Eosinophils % (Manual) 1, Basophils % (Manual) 0, Band Neutrophils 0, Platelet Estimate Adequate, Platelet Morphology Normal, Polychromasia 1+, Hypochromasia 1+, Sodium Level 135L, Potassium Level 3.8, Chloride Level 103, Carbon Dioxide Level 26, Anion Gap 6, Blood Urea Nitrogen 15, Creatinine 0.8, Estimat Glomerular Filtration Rate > 60, Glucose Level 99, Calcium Level 7.9L, Phosphorus Level 3.3, Magnesium Level 1.7L, Total Bilirubin 1.4H, Direct Bilirubin 0.9H, Aspartate Amino Transf (AST/SGOT) 25, Alanine Aminotransferase (ALT/SGPT) 25, Alkaline Phosphatase 253H, Total Protein 5.8L, Albumin 1.6L, Globulin 4.2, Albumin/Globulin Ratio 0.4L 08/16/20 04:58: POC Whole Blood Glucose 85 Height (Feet): 5 Height (Inches): 5.00 Weight (Pounds): 126 General Appearance: alert EENT: normal ENT inspection Neck: supple Cardiovascular: normal rate Respiratory/Chest: decreased breath sounds Abdomen: hypoactive bowel sounds, tender Extremities: non-tender Assessment/Plan Assessment/Plan: Malfunctioning Kock pouch with inability to intubate with resulting functional small-bowel obstruction s/p removal of Kock pouch with conventional ileostomy last week TPN/npo c/o nausea CT; Impression: Postsurgical changes, as described 8.4 x 2 cm gas and fluid collection in the anterior pelvis, may represent a routine postsurgical collection could also be infected. Distended small bowel. Probably secondary to postoperative ileus but distal small bowel obstruction not excludable. Fluid within the vaginal vault. Significance uncertain. Gas within the bladder, likely related to recent instrumentation. Bilateral moderate pleural effusions. Resultant passive atelectasis at both lung bases. Degenerative spondylosis s/p CT guided drainage NGT >> removed off DISTRIBUTION SUPERVISOR pump resolving ileus will fu repeat labs in am fu surg recs Adrian Morrison MD Aug 16, 2020 09:56
[2020-08-16] MEDS ORDERED: Acetaminophen 650mg/20.3ml ORAL PRN (10:00)
[2020-08-16] MEDS: oxyCODONE HCL/Acetaminophen 5/325mg ORAL PRN ×2 (14:22→23:01)
[2020-08-16] MEDS: BuPROPion SR 100mg tab ORAL SCH (17:40)
--- NOTE | 2020-08-16 19:01 | NUR ---
NURSE HAND-OFF: Important Events on Shift: NG tube removed, no episodes of N/V during shift. Patient OOB using bedside commode to void. Total ileo output for shift: 350mL, total urine output: 1775mL Patient Status: stable Diet: NPO Pending Orders: N/A Pending Results/Labs: blood cultures Pending MD notification: N/A Latest Vital Signs: Temperature 98.0 , Pulse 104 , B/P 124 /76 , Respiratory Rate 18 , O2 SAT 95 , Room Air, O2 Flow Rate 3.0 . Vital Sign Comment: VS stable Latest Henry Fall Score: 45 Fall Risk: High Risk Safety Measures: Call light Within Reach, Bed Alarm Zone 1, Side Rails Side Rails x2, Bed position Low and Locked. Fall Precautions: Yellow Socks Door Sign Patient Fall Education Report given to Gino TRAMMELL.
--- NOTE | 2020-08-16 19:10 | NUR ---
NURSE NOTES: received pt and report from VALERI Avery. pt alert and oriented x 4 with no s/s of acute distress and no co pain at the moment. Central line noted clean dry and intact and running fluids as ordered. SAMARA drain noted and draining. Surgical dressing clean dry and intact. Ileo site noted and draining. Plan of care discussed.
[2020-08-16] MEDS: Fat Emulsion Iv 20% 216 ML in Tpn 1,584 ML IV SCH (19:48)
[2020-08-16] MEDS: Dyna-Hex 2% Top Sol 2oz TOPIC SCH (19:48)
[2020-08-16] MEDS: Iron Sucrose 100 MG in NS 55 ML IVPB SCH (20:07)
[2020-08-16] MEDS: TraZODone 100mg tab ORAL SCH (20:08)
[2020-08-17] VITALS: BP 123/88
--- NOTE | 2020-08-17 00:20 | NUR ---
NURSE NOTES: pt temperature 100.5 during midnight vitals. blood cultures drawn from central line as ordered by Dr. Meadows for temp > 100.3, sent to lab, cooling measures applied to pt to get temp down. will reassess temp in 20 to 30 min. Addendum: 08/17/20 at 0157 by Gino Patricio RN pt also given percocet for pain at 2301 which may help with fever reduction. if still febrile over 100.2 when rechecking, will administer prn dose of tylenol.
--- NOTE | 2020-08-17 00:47 | NUR ---
NURSE NOTES: pt temp now at 99.7 after cooling measures applied. will continue to follow up on patient temperature throughout the night. currently patient is asleep, in no acute distress, no shivering, no co pain.
--- NOTE | 2020-08-17 02:19 | NUR ---
NURSE NOTES: pts temp at 100.3, up again from earlier. pt given prn tylenol. will reassess temp later.
[2020-08-17 04:00] VITALS: BP 101/51
--- NOTE | 2020-08-17 04:13 | NUR ---
NURSE NOTES: patients vitals stable, temp now at 98.5. pt in no acute distress, no co pain. will continue to monitor.
[2020-08-17] MEDS: NS w/KCl 20mEq 1000ml 1,000 ML IV SCH (05:02)
[2020-08-17] MEDS: NovoLOG Insulin Flexpen SUBQ SCH ×4 (06:00→18:00)
[2020-08-17 06:30] LABS: BASOPHILS % (AUTO) 0.5 % (0.0-2.0); EOSINOPHILS % (AUTO) 0.1 % (0.0-3.0); HEMOGLOBIN 8.6 G/DL (12.0-16.0); LYMPHOCYTES % (AUTO) 7.7 % (20.0-45.0); MEAN CORPUSCULAR VOLUME 90 FL (80-99); MONOCYTES % (AUTO) 7.1 % (1.0-10.0); NEUTROPHILS % (AUTO) 84.7 % (45.0-75.0); PLATELET COUNT 346 K/UL (150-450); RED BLOOD COUNT 2.77 M/UL (4.20-5.40); RED CELL DISTRIBUTION WIDTH 12.5 % (11.6-14.8); WHITE BLOOD COUNT 12.7 K/UL (4.8-10.8)
[2020-08-17 06:57] LABS: ALANINE AMINOTRANSFERASE 18 U/L (12-78); ALBUMIN 1.6 G/DL (3.4-5.0); ALBUMIN/GLOBULIN RATIO 0.4 (1.0-2.7); ALKALINE PHOSPHATASE 292 U/L (46-116); ANION GAP 8 mmol/L (5-15); ASPARTATE AMINO TRANSFERASE 24 U/L (15-37); BILIRUBIN,TOTAL 1.1 MG/DL (0.2-1.0); BLOOD UREA NITROGEN 10 mg/dL (7-18); CALCIUM 8.1 MG/DL (8.5-10.1); CARBON DIOXIDE 27 MMOL/L (21-32); CHLORIDE 106 MMOL/L (98-107); CREATININE 0.9 MG/DL (0.55-1.30); PHOSPHORUS 3.8 MG/DL (2.5-4.9); POTASSIUM 3.8 MMOL/L (3.5-5.1); SODIUM 141 MMOL/L (136-145)
[2020-08-17 06:58] LABS: BILIRUBIN,DIRECT 0.8 MG/DL (0.0-0.3)
--- NOTE | 2020-08-17 07:49 | NUR ---
NURSE HAND-OFF: Important Events on Shift:pain and anxiety management, fever management Patient Status: stable Diet: NPO Pending Orders: NA Pending Results/Labs:blood culture Pending MD notification:NA Latest Vital Signs: Temperature 98.5 , Pulse 95 , B/P 101 /51 , Respiratory Rate 15 , O2 SAT 94 , Room Air, O2 Flow Rate 3.0 . Vital Sign Comment: stable through shift despite fever, blood cultures drawn, tylenol given, cooling measures performed Latest Henry Fall Score: 45 Fall Risk: High Risk Safety Measures: Call light Within Reach, Bed Alarm Zone 1, Side Rails Side Rails x2, Bed position Low and Locked. Fall Precautions: Yellow Socks Door Sign Patient Fall Education Report given to VALERI Lakhani.
[2020-08-17 08:00] VITALS: BP 130/72
--- NOTE | 2020-08-17 08:00 | NUR ---
NURSE NOTES: Received report from Gino RN, pt a/a/o x4 laying in bed in with no signs of distress or other issues at this time. surgical dressing dry and intact. Lissette Ileostomy bag in place draining well, per night signs report total mold shifter out put:335ml, total urine: 1350ml. per mold shifter report pt had an episode of fever 100.5, Tylenol was given as well as blood cultures were collected. call light within reach, bed in lowest position, side rales up x2. I will f/u as needed.
--- NOTE | 2020-08-17 09:24 | General Progress Note ---
Subjective ROS Limited/Unobtainable: Yes Allergies: Coded Allergies: CEFEPIME (Verified Adverse Reaction, Severe, 08/05/20) causes low platlets ADHESIVE TAPE (Verified Adverse Reaction, Intermediate, Rash, 08/27/19) CLEAR TAPE Objective Last 24 Hour Vital Signs Date Time Temp Pulse Resp B/P (MAP) Pulse Ox O2 Delivery O2 Flow Rate FiO2 08/17/20 04:00 98.5 95 15 101/51 (68) 94 08/17/20 02:47 99.6 08/17/20 02:43 99.6 08/17/20 02:10 100.3 08/17/20 00:47 99.7 08/17/20 00:00 100.5 108 18 123/88 (100) 95 08/16/20 21:00 Room Air 08/16/20 20:00 98.6 109 16 132/82 (99) 96 08/16/20 19:35 95 Room Air 21 08/16/20 16:00 98.0 104 18 124/76 (92) 95 08/16/20 12:00 98.4 105 16 122/67 (85) 95 Intake and Output 08/16/20 08/17/20 19:00 07:00 Intake Total 1600 ml 700 ml Output Total 2125 ml 1685 ml Balance -525 ml -985 ml IV Total 1600 ml 700 ml Output Urine Total 1775 ml 1350 ml Other 350 ml 335 ml # Voids 12 7 Laboratory Tests 08/16/20 12:27: POC Whole Blood Glucose [Pending] 08/16/20 17:44: POC Whole Blood Glucose 121H 08/17/20 00:02: POC Whole Blood Glucose 82 08/17/20 04:55: White Blood Count 12.7H, Red Blood Count 2.77L, Hemoglobin 8.6L, Hematocrit 25.0L, Mean Corpuscular Volume 90, Mean Corpuscular Hemoglobin 30.9, Mean Corpuscular Hemoglobin Concent 34.2, Red Cell Distribution Width 12.5, Platelet Count 346, Mean Platelet Volume 6.3L, Neutrophils (%) (Auto) 84.7H, Lymphocytes (%) (Auto) 7.7L, Monocytes (%) (Auto) 7.1, Eosinophils (%) (Auto) 0.1, Basophils (%) (Auto) 0.5, Sodium Level 141, Potassium Level 3.8, Chloride Level 106, Carbon Dioxide Level 27, Anion Gap 8, Blood Urea Nitrogen 10, Creatinine 0.9, Estimat Glomerular Filtration Rate > 60, Glucose Level 100, Calcium Level 8.1L, Phosphorus Level 3.8, Magnesium Level 2.1, Total Bilirubin 1.1H, Direct Bilirubin 0.8H, Aspartate Amino Transf (AST/SGOT) 24, Alanine Aminotransferase (ALT/SGPT) 18, Alkaline Phosphatase 292H, Total Protein 5.3L, Albumin 1.6L, Globulin 3.7, Albumin/Globulin Ratio 0.4L 08/17/20 05:19: POC Whole Blood Glucose 107H Height (Feet): 5 Height (Inches): 5.00 Weight (Pounds): 126 General Appearance: alert EENT: normal ENT inspection Neck: supple Cardiovascular: normal rate Respiratory/Chest: decreased breath sounds Abdomen: soft, hypoactive bowel sounds, tender Extremities: non-tender Assessment/Plan Assessment/Plan: Malfunctioning Kock pouch with inability to intubate with resulting functional small-bowel obstruction s/p removal of Kock pouch with conventional ileostomy TPN/npo c/o nausea CT; Impression: Postsurgical changes, as described 8.4 x 2 cm gas and fluid collection in the anterior pelvis, may represent a routine postsurgical collection could also be infected. Distended small bowel. Probably secondary to postoperative ileus but distal small bowel obstruction not excludable. Fluid within the vaginal vault. Significance uncertain. Gas within the bladder, likely related to recent instrumentation. Bilateral moderate pleural effusions. Resultant passive atelectasis at both lung bases. Degenerative spondylosis s/p CT guided drainage NGT >> removed off FLOWER BUNCHER OR PICKER pump resolving ileus c/o diffuse abd pain today left more than right add prn Bentyl will fu repeat labs in am fu surg recs Adrian Morrison MD Aug 17, 2020 09:24
[2020-08-17] MEDS ORDERED: Dicyclomine HCl 10mg/5ml oral soln ORAL PRN (09:30)
[2020-08-17] MEDS: Pantoprazole Inj IVP SCH (09:37)
[2020-08-17] MEDS: oxyCODONE HCL/Acetaminophen 5/325mg ORAL PRN (09:38)
[2020-08-17] MEDS: BuPROPion SR 100mg tab ORAL SCH ×2 (09:38→17:12)
[2020-08-17] MEDS: Meloxicam 15 MG TAB ORAL SCH (09:38)
[2020-08-17] MEDS: Citalopram Hydrobromide 10mg Tab ORAL SCH (09:38)
--- NOTE | 2020-08-17 10:13 | General Progress Note ---
Progress Note Progress Note T 100.5 Pulse 95-110 Feeling less abdominal bloating. On Zosyn Abdomen less distended, incision clean, stoma well formed Urine 3125 Ileostomy 685 WBc down 12,700 Hgb 8.6 stable BUN 10 Cr 0.9 albumin 1.6 Imp: Ileus vs partial SBO - resolved Plan; clear liquid diet continue TPN Antibiotics per ID f/u labs Lalo Meadows MD Aug 17, 2020 10:13
--- NOTE | 2020-08-17 10:15 | NUR ---
RD ASSESSMENT & RECOMMENDATIONS SEE CARE ACTIVITY FOR COMPLETE ASSESSMENT DAILY ESTIMATED NEEDS: Needs based on Surgery / 58.9kg abw 25-35 kcals/kg 6949-4692 total kcals 1-2.0g/kg w/ surgery g protein/kg 59-118g w/ surgery g total protein 25-30 mL/kg 7868-0597 total fluid mLs NUTRITION DIAGNOSIS: Altered GI function R/T h/o malfunctioning ileo, as evidenced by pt unable to intubate, awaiting now s/p pouch endoscopy, on BCIR low residue diet, made NPO again for dilated loops fulid and gas filled per CT scan, s/p kock pouch resection, creation of [place] ileo, NPO w/ TPN. CURRENT DIET:NPO + TPN PO DIET RECOMMENDATIONS: Diet per MD PARENTERAL NUTRITION RECOMMENDATIONS: D/AA Rate: 66 IL Rate: 9 Total Rate: 75 Volume: 1800 % Dextrose: 17 % AA: 5.3 Energy (kcals/kg): 1683 Protein (g/kg protein): 84 Nonprotein KCALS: 1348 GIR (mg CHO/kg/min): 3.2 % Fat KCALS: 27 NCP: N Ratio: 100:1 TPN Comment: - D17% w/ AA 5.3% @ 66ml/hr + 20%IL @9ml/hr-> total of 75ml/hr, all 3:1 - Start rate per MD. - TPN at goal meets 100% est needs. ADDITIONAL RECOMMENDATIONS: * Standing wt as able while ambulating for accurate CBW (04/28) standing wt of 135.8 lbs (07/16) Bed wt 130 lbs * Check BG, lytes and LFT's w/ TPN -> ALP trending up * Monitor for diet initiation/ tolerance . .
[2020-08-17 12:00] VITALS: BP 119/65
--- NOTE | 2020-08-17 14:47 | NUR ---
CASE MANAGEMENT:REVIEW SI; ENTEROSTOMY MALFUNCTION. PROLONGED ILEUS. PARTIAL SBO. 100.5 108 16 101/51 94% ON RA WBC 12.7 H/H 8.6/25.0 T-BILI 1.1 D-BILI 0.8 ALP 292 ALB 1.6 IS;PROTONIX IV QD KCL IV A24 IRON SUCROSE IV HS ZOSYN IV Q8 PERCOCET PO Q4 PRN MOBIC PO QD MED SURG STATUS DCP;PATIENT IS FROM HOME PLAN; CLEAR LIQUID DIET CONTINUE TPN ABX F/U LABS
[2020-08-17 16:00] VITALS: BP 127/93
--- NOTE | 2020-08-17 17:52 | NUR ---
NURSE NOTES:OSTOMY CARE NOTES:Staff reports pt's appliance is being changed 1-2 times per shift secondary to Abdominal incision leaking .Appliance changed. Moderate amt of liquid black effluent noted in pouch.peristomal erythema noted but no evidence of erosion.Stoma measures 1 3/8inch. Longitudinal and transverse abdominal incisions that are in close proximity exuding serous exudate.Aurelia are intact to both incisions.Longitudinal incision exuding mid-distally.small amt serous exudate noted transverse incision . Skin Barrier applied to both incisions. Strips of Calcium applied to both incisions and each incision covered with Hydrocolloid Barrier ring to assist with moisture Absorption.Ileostomy care care then rendered . Post peristomal cleansing . Cavilon skin barrier applied . Eakins Barrier ring applied with thin layer of Stomahesive Paste. Two piece appliance in use . Wafer positioned diagonally to minimize covering both incisions. Staff instructed to avoid changing Appliance as much as possible to prevent Peristomal erosion as there is no leakage peristomally. Instructed to reinforce drsgs to incisions as needed. Will re-evaluate effectiveness of Alginate drsgs.
--- NOTE | 2020-08-17 19:25 | NUR ---
NURSE HAND-OFF: Important Events on Shift:pt ambulate to the nurses station. patient starting having more out put from Lissette ileostomy Patient Status: full code/ stable condition Diet: clear liquid diet Pending Orders: Pending Results/Labs:am labs Pending MD notification:am labs Latest Vital Signs: Temperature 99.3 , Pulse 94 , B/P 127 /93 , Respiratory Rate 16 , O2 SAT 94 , Room Air, O2 Flow Rate 3.0 . Vital Sign Comment: stable, highest temp today: 99.3 Latest Henry Fall Score: 45 Fall Risk: High Risk Safety Measures: Call light Within Reach, Bed Alarm Zone 1, Side Rails Side Rails x2, Bed position Low and Locked. Fall Precautions: needs supervision and a FWW for ambulation Yellow Socks Door Sign Patient Fall Education Report given to Galina TRAMMELL, pt in stable condition. - During my shift pt was able to ambulate to the nurses station with physical therapy,. - colostomy bag changed multiple times by primary RN and sales operations specialist. I&O's Ileostomy: 475ml (greenish/liquid out put) urine: 890ml intake: 25% of her meals - pt is able to tolerate diet within n/v
--- NOTE | 2020-08-17 19:30 | NUR ---
NURSE NOTES: Received report & pt from VALERI Lakhani. Pt in bed, a&ox4, in room air. No s/s of acute distress & no c/o pain at this time. Lissette ileo intact. Subclavian central line intact with TPN running as ordered. Plan of care discussed.
[2020-08-17 20:00] VITALS: BP 113/71
[2020-08-17] MEDS: Dyna-Hex 2% Top Sol 2oz TOPIC SCH (20:04)
[2020-08-17] MEDS: Fat Emulsion Iv 20% 216 ML in Tpn 1,584 ML IV SCH (20:11)
--- NOTE | 2020-08-17 20:11 | Infectious Diseases Prog Note ---
Assessment/Plan Assessment/Plan ASSESSMENT AND PLAN: 1. fevers, leukocytosis, ? sepsis, ileus vs bowel obstruction, ? picc line infection - zosyn - day # 3 - f/u on cultures, labs - management per Dr. Meadows - d/w RN about getting blood cultures with fevers - has been ordered previously but not done 2. 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 3. The patient has a history of intra-abdominal abscess and bowel obstruction in the past, status post surgery and drainage. 4. The patient has history of ulcerative colitis. 5. History of proctocolectomy. 6. History of multiple abdominal operations. 7. History of parathyroid adenoma resection. 8. History of spinal surgery. 9. Continue management per Dr. Meadows. 10. Past medical history is noted. 11. Allergies to adhesive tape and cefepime. The cefepime allergy was thrombocytopenia, not a true allergy, more of a side effect. Case was discussed with pharmacy and it should be safe to give Zosyn since the patient was on Unasyn. 12. Social history is negative. 13. Family history is noncontributory. 14. MAR is noted. 15. Case was discussed with RN. 16. Continue treatment per primary and consultants Subjective Constitutional: Reports: fever - fevers earlier, better now , fatigue, other - patient feels better HEENT: Denies: congestion Respiratory: Denies: shortness of breath Cardiovascular: Denies: chest pain Gastrointestinal/Abdominal: Denies: nausea, vomiting Genitourinary: Reports: other - no decker Neurologic: Denies: headache Psychiatric: Reports: other - NA Skin: Denies: rash Hematologic: Denies: bleeding Musculoskeletal: Denies: pain Allergies: Coded Allergies: CEFEPIME (Verified Adverse Reaction, Severe, 08/05/20) causes low platlets ADHESIVE TAPE (Verified Adverse Reaction, Intermediate, Rash, 08/27/19) CLEAR TAPE Objective Last 24 Hour Vital Signs Date Time Temp Pulse Resp B/P (MAP) Pulse Ox O2 Delivery O2 Flow Rate FiO2 08/17/20 16:00 99.3 94 16 127/93 (104) 94 08/17/20 12:00 98.4 99 16 119/65 (83) 94 08/17/20 10:08 98.5 08/17/20 09:00 Room Air 08/17/20 08:00 98.3 108 16 130/72 (91) 94 08/17/20 07:30 94 Room Air 21 08/17/20 04:00 98.5 95 15 101/51 (68) 94 08/17/20 02:47 99.6 08/17/20 02:43 99.6 08/17/20 02:10 100.3 08/17/20 00:47 99.7 08/17/20 00:00 100.5 108 18 123/88 (100) 95 08/16/20 21:00 Room Air Height (Feet): 5 Height (Inches): 5.00 Weight (Pounds): 126 General Appearance: no acute distress HEENT: normocephalic, atraumatic, anicteric, mucous membranes moist Respiratory/Chest: lungs clear, normal breath sounds, no respiratory distress, no accessory muscle use Cardiovascular: normal peripheral pulses, regular rhythm, no gallop/murmur, no JVD Abdomen: normal bowel sounds, soft, non tender, no organomegaly, non distended - less bloating Genitourinary: other - no decker Extremities: no cyanosis Skin: no rash Neurologic/Psychiatric: drum drier II-XII grossly normal, alert, oriented x 3, responsive Lymphatic: no neck adenopathy Musculoskeletal: no effusion CT abdomen and pelvis - 08/14/20 - Impression: Postsurgical changes, as described 8.4 x 2 cm gas and fluid collection in the anterior pelvis, may represent a routine postsurgical collection could also be infected. Distended small bowel. Probably secondary to postoperative ileus but distal small bowel obstruction not excludable. Fluid within the vaginal vault. Significance uncertain. Gas within the bladder, likely related to recent instrumentation. Bilateral moderate pleural effusions. Resultant passive atelectasis at both lung bases. Degenerative spondylosis Findings discussed by phone with Dr. Meadows at the time of interpretation Chest x-ray - 08/14/20 - COMPARISON: Chest radiograph August 11, 2020 FINDINGS/IMPRESSION: Enteric feeding tube terminates in the stomach. Right IJ catheter terminates in the superior vena cava. Mild vascular congestion and trace bilateral pleural effusions. The size of the left pleural effusion has improved when compared to August 11, 2020. No pneumothorax. Cardiomegaly. Microbiology Date/Time Source Procedure Growth Status 08/14/20 15:15 Abdominal Fluid Gram Stain - Final Resulted 08/14/20 15:15 Abdominal Fluid Body Fluid Culture - Preliminary NO GROWTH AFTER 48 HOURS Resulted 08/11/20 08:40 Indwelling Cath Urine Culture - Final NO GROWTH AFTER 48 HOURS Complete 07/29/20 12:45 Stool Clostridium difficile Toxin Assay - Final Complete 07/15/20 13:25 Nasopharynx SARS-CoV-2 RdRp Gene Assay - Final Complete Laboratory Tests Test 08/17/20 00:02 08/17/20 04:55 08/17/20 05:19 08/17/20 12:02 POC Whole Blood Glucose 82 MG/DL (74-106) 107 MG/DL (74-106) H 134 MG/DL (74-106) H White Blood Count 12.7 K/UL (4.8-10.8) H Red Blood Count 2.77 M/UL (4.20-5.40) L Hemoglobin 8.6 G/DL (12.0-16.0) L Hematocrit 25.0 % (37.0-47.0) L Mean Corpuscular Volume 90 FL (80-99) Mean Corpuscular Hemoglobin 30.9 PG (27.0-31.0) Mean Corpuscular Hemoglobin Concent 34.2 G/DL (32.0-36.0) Red Cell Distribution Width 12.5 % (11.6-14.8) Platelet Count 346 K/UL (150-450) Mean Platelet Volume 6.3 FL (6.5-10.1) L Neutrophils (%) (Auto) 84.7 % (45.0-75.0) H Lymphocytes (%) (Auto) 7.7 % (20.0-45.0) L Monocytes (%) (Auto) 7.1 % (1.0-10.0) Eosinophils (%) (Auto) 0.1 % (0.0-3.0) Basophils (%) (Auto) 0.5 % (0.0-2.0) Sodium Level 141 MMOL/L (136-145) Potassium Level 3.8 MMOL/L (3.5-5.1) Chloride Level 106 MMOL/L (98-107) Carbon Dioxide Level 27 MMOL/L (21-32) Anion Gap 8 mmol/L (5-15) Blood Urea Nitrogen 10 mg/dL (7-18) Creatinine 0.9 MG/DL (0.55-1.30) Estimat Glomerular Filtration Rate > 60 mL/min (>60) Glucose Level 100 MG/DL (74-106) Calcium Level 8.1 MG/DL (8.5-10.1) L Phosphorus Level 3.8 MG/DL (2.5-4.9) Magnesium Level 2.1 MG/DL (1.8-2.4) Total Bilirubin 1.1 MG/DL (0.2-1.0) H Direct Bilirubin 0.8 MG/DL (0.0-0.3) H Aspartate Amino Transf (AST/SGOT) 24 U/L (15-37) Alanine Aminotransferase (ALT/SGPT) 18 U/L (12-78) Alkaline Phosphatase 292 U/L (46-116) H Total Protein 5.3 G/DL (6.4-8.2) L Albumin 1.6 G/DL (3.4-5.0) L Globulin 3.7 g/dL Albumin/Globulin Ratio 0.4 (1.0-2.7) L Test 08/17/20 17:08 POC Whole Blood Glucose Pending Current Medications Medications (Trade) Dose Ordered Sig/Jori Route PRN Reason Start Time Stop Time Status Last Admin Dose Admin Acetaminophen (Tylenol) 650 mg Q4H PRN ORAL Mild Pain or temp over 100.2 08/16/20 10:00 09/14/20 10:14 08/17/20 02:13 Bupropion HCl (Wellbutrin SR) 200 mg TWICE A DAY ORAL 08/12/20 09:00 09/11/20 08:59 08/17/20 17:12 Chlorhexidine Gluconate (Kathryn-Hex 2%) 1 applic DAILY@2000 TOPIC 08/07/20 20:15 11/05/20 20:14 08/16/20 19:48 Citalopram Hydrobromide (CeleXA) 10 mg DAILY ORAL 08/16/20 09:00 09/15/20 08:59 08/17/20 09:38 Dextrose 1,000 ml @ 0 mls/hr Q24H PRN IV PN interrupted or unavailable 08/05/20 20:00 09/04/20 19:59 Dextrose (Dextrose 50%) 25 ml Q30M PRN IV Hypoglycemia 08/05/20 20:00 11/03/20 19:59 Dextrose (Dextrose 50%) 50 ml Q30M PRN IV Hypoglycemia 08/05/20 20:00 11/03/20 19:59 Dicyclomine HCl (Bentyl) 10 mg QIDPRN PRN ORAL Abdominal cramps 08/17/20 09:30 11/15/20 09:29 Diphenhydramine HCl (Benadryl) 50 mg Q4H PRN IVP Itching/Pruritis 08/13/20 09:15 09/12/20 09:14 Fat Emulsion Intravenous 216 ml/Amino Acids/ Electrolytes/ Dextrose 1,800 ml @ 75 mls/hr Q24H IV 08/05/20 20:00 09/04/20 19:59 08/16/20 19:48 Folic Acid (Folate) 1 mg DAILY ORAL 08/16/20 09:00 09/15/20 08:59 08/17/20 09:38 Hydromorphone HCl (Dilaudid) 1 mg Q3H PRN SUBQ Severe Breakthru Pain (>7) 08/16/20 09:48 08/23/20 09:47 Insulin Aspart (NovoLOG) Q6HR SUBQ 08/06/20 00:00 11/04/20 00:00 08/06/20 17:38 Iron Sucrose 100 mg/Sodium Chloride 60 ml @ 240 mls/hr BEDTIME IVPB 08/14/20 21:00 08/18/20 21:14 08/16/20 20:07 Lorazepam (Ativan) 1 mg Q4H PRN SL Muscle Spasm 08/13/20 09:15 08/20/20 09:14 08/15/20 12:16 Meloxicam (Mobic) 15 mg DAILY ORAL 08/16/20 09:00 09/15/20 08:59 08/17/20 09:38 Naloxone HCl (Narcan) 0.1 mg Q1M PRN IVP RR<10/min OR SBP<90 mmHg 08/08/20 09:10 11/06/20 09:09 Ondansetron HCl (Zofran) 4 mg Q4H PRN IVP Nausea & Vomiting 08/06/20 15:00 09/05/20 14:59 08/14/20 10:09 Ondansetron HCl (Zofran) 4 mg Q4H PRN ORAL Nausea & Vomiting 08/16/20 08:45 09/14/20 10:14 Oxycodone/ Acetaminophen (Percocet 5-325) 1 tab Q4H PRN ORAL SEVERE PAIN 08/16/20 09:45 08/23/20 09:44 08/17/20 09:38 Pantoprazole (Protonix) 40 mg DAILY IVP 08/07/20 09:00 09/06/20 08:59 08/17/20 09:37 Patient Own Medication (Patient's Own Med) 1 ea DAILY ORAL 08/15/20 09:00 09/14/20 08:59 08/17/20 09:37 Phytonadione (Vitamin K) 10 mg ONCE A WEEK SUBQ 08/05/20 10:00 11/03/20 09:59 08/12/20 09:59 Piperacillin Sod/ Tazobactam Sod 3.375 gm/Dextrose 100 ml @ 25 mls/hr EVERY 8 HOURS IVPB 08/15/20 22:00 08/20/20 21:59 08/17/20 13:33 Prochlorperazine (Compazine) 10 mg Q6H PRN IVP anxiety 08/15/20 21:45 09/14/20 21:44 08/16/20 21:54 Simethicone (Mylicon) 80 mg QIDPRN PRN NG Abdominal cramps, gas 08/15/20 10:15 11/13/20 10:14 Trazodone HCl (Desyrel) 200 mg BEDTIME ORAL 08/16/20 21:00 09/14/20 20:59 08/16/20 20:08 Osmin Bermudez MD Aug 17, 2020 20:11
[2020-08-17] MEDS: TraZODone 100mg tab ORAL SCH (20:14)
[2020-08-17] MEDS: Iron Sucrose 100 MG in NS 55 ML IVPB SCH (20:14)
[2020-08-17] MEDS: Simethicone 80mg tab NG PRN (21:38)
[2020-08-18] VITALS (7 sets, daily range): BP systolic 100–136; BP diastolic 55–86
--- NOTE | 2020-08-18 01:00 | NUR ---
NURSE NOTES: Changed subclavian central line dressing without incident. Pt tolerated procedure well. No bleeding.
[2020-08-18] MEDS: oxyCODONE HCL/Acetaminophen 5/325mg ORAL PRN (02:18)
--- NOTE | 2020-08-18 04:21 | NUR ---
NURSE NOTES: Iraj Swift from microbiology called & informed RN with results of recent blood culture. One bottle positive for gram positive cocci in clusters. Dr. Bermudez made aware & received new orders: Vancomycin 1g x 1, Vancomycin pharmacy to dose, repeat blood culture x 2. Charge nurse also made aware.
[2020-08-18] MEDS ORDERED: Vancomycin 1 GM in D5W 275 ML IVPB ONE (04:30)
[2020-08-18] MEDS ORDERED: Vancomycin 1.25gm/NS Premix q24h IVPB SCH (05:00)
[2020-08-18] MEDS: NovoLOG Insulin Flexpen SUBQ SCH ×5 (05:20→23:35)
[2020-08-18 06:44] LABS: BASOPHILS % (AUTO) 0.7 % (0.0-2.0); EOSINOPHILS % (AUTO) 0.1 % (0.0-3.0); HEMATOCRIT 23.3 % (37.0-47.0); LYMPHOCYTES % (AUTO) 9.3 % (20.0-45.0); MEAN CORPUSCULAR VOLUME 90 FL (80-99); MONOCYTES % (AUTO) 7.4 % (1.0-10.0); NEUTROPHILS % (AUTO) 82.5 % (45.0-75.0); PLATELET COUNT 371 K/UL (150-450); RED BLOOD COUNT 2.58 M/UL (4.20-5.40); RED CELL DISTRIBUTION WIDTH 12.6 % (11.6-14.8); WHITE BLOOD COUNT 11.2 K/UL (4.8-10.8)
--- NOTE | 2020-08-18 06:45 | General Progress Note ---
Subjective ROS Limited/Unobtainable: Yes Allergies: Coded Allergies: CEFEPIME (Verified Adverse Reaction, Severe, 08/05/20) causes low platlets ADHESIVE TAPE (Verified Adverse Reaction, Intermediate, Rash, 08/27/19) CLEAR TAPE Objective Last 24 Hour Vital Signs Date Time Temp Pulse Resp B/P (MAP) Pulse Ox O2 Delivery O2 Flow Rate FiO2 08/18/20 05:19 98.4 92 16 100/55 (70) 94 08/18/20 00:00 99.1 110 17 135/79 (97) 95 08/17/20 21:00 Room Air 08/17/20 20:00 99.7 110 16 113/71 (85) 95 08/17/20 16:00 99.3 94 16 127/93 (104) 94 08/17/20 12:00 98.4 99 16 119/65 (83) 94 08/17/20 10:08 98.5 08/17/20 09:00 Room Air 08/17/20 08:00 98.3 108 16 130/72 (91) 94 08/17/20 07:30 94 Room Air 21 Intake and Output 08/17/20 08/18/20 19:00 07:00 Intake Total 900 ml 1065 ml Output Total 1365 ml 1675 ml Balance -465 ml -610 ml Intake Oral 240 ml IV Total 900 ml 825 ml Output Urine Total 890 ml 1450 ml Other 475 ml 225 ml # Voids 6 7 Laboratory Tests 08/17/20 12:02: POC Whole Blood Glucose 134H 08/17/20 17:08: POC Whole Blood Glucose [Pending] 08/18/20 00:00: POC Whole Blood Glucose 101 08/18/20 05:10: White Blood Count [Pending], Red Blood Count [Pending], Hemoglobin [Pending], Hematocrit [Pending], Mean Corpuscular Volume [Pending], Mean Corpuscular Hemoglobin [Pending], Mean Corpuscular Hemoglobin Concent [Pending], Red Cell Distribution Width [Pending], Platelet Count [Pending], Mean Platelet Volume [Pending], Neutrophils (%) (Auto) [Pending], Lymphocytes (%) (Auto) [Pending], Monocytes (%) (Auto) [Pending], Eosinophils (%) (Auto) [Pending], Basophils (%) (Auto) [Pending], Sodium Level [Pending], Potassium Level [Pending], Chloride Level [Pending], Carbon Dioxide Level [Pending], Blood Urea Nitrogen [Pending], Creatinine [Pending], Estimat Glomerular Filtration Rate [Pending], Glucose Level [Pending], Calcium Level [Pending], Phosphorus Level [Pending], Magnesium Level [Pending], Total Bilirubin [Pending], Aspartate Amino Transf (AST/SGOT) [Pending], Alanine Aminotransferase (ALT/SGPT) [Pending], Alkaline Phosphatase [Pending], Total Protein [Pending], Albumin [Pending], Globulin [Pending] 08/18/20 05:12: POC Whole Blood Glucose 120H Height (Feet): 5 Height (Inches): 5.00 Weight (Pounds): 126 General Appearance: alert EENT: normal ENT inspection Neck: supple Cardiovascular: normal rate Respiratory/Chest: lungs clear Abdomen: soft, hypoactive bowel sounds, tender Extremities: non-tender Assessment/Plan Assessment/Plan: Malfunctioning Kock pouch with inability to intubate with resulting functional small-bowel obstruction s/p removal of Kock pouch with conventional ileostomy TPN/npo c/o nausea CT; Impression: Postsurgical changes, as described 8.4 x 2 cm gas and fluid collection in the anterior pelvis, may represent a routine postsurgical collection could also be infected. Distended small bowel. Probably secondary to postoperative ileus but distal small bowel obstruction not excludable. Fluid within the vaginal vault. Significance uncertain. Gas within the bladder, likely related to recent instrumentation. Bilateral moderate pleural effusions. Resultant passive atelectasis at both lung bases. Degenerative spondylosis s/p CT guided drainage resolving ileus prn Bentyl positive blood culture Vanco added per ID on clears will fu repeat labs in am fu surg recs Adrian Morrison MD Aug 18, 2020 06:45
[2020-08-18 06:50] LABS: ALANINE AMINOTRANSFERASE 27 U/L (12-78); ALBUMIN 1.6 G/DL (3.4-5.0); ALBUMIN/GLOBULIN RATIO 0.4 (1.0-2.7); ALKALINE PHOSPHATASE 324 U/L (46-116); ANION GAP 5 mmol/L (5-15); ASPARTATE AMINO TRANSFERASE 25 U/L (15-37); BILIRUBIN,TOTAL 0.8 MG/DL (0.2-1.0); CARBON DIOXIDE 26 MMOL/L (21-32); CHLORIDE 106 MMOL/L (98-107); CREATININE 0.9 MG/DL (0.55-1.30); PHOSPHORUS 3.6 MG/DL (2.5-4.9); POTASSIUM 3.7 MMOL/L (3.5-5.1); SODIUM 137 MMOL/L (136-145)
--- NOTE | 2020-08-18 07:20 | NUR ---
NURSE NOTES: WALKING ROUNDS DONE WITH NIGHT RN. PATIENT AWAKE IN BED. QUESTIONS ANSWERED, NEEDS MET. DISCUSSED PLAN OF CARE FOR THE DAY. VERBALIZED UNDERSTANDING.ILEOSTOMY SITE ASSESSED, NO LEAKAGE PRESENT AT THIS TIME. NO FLATUS PRESENT.RIGHT SUBCLAVIAN CENTRAL LINE PATENT AND SECURED.PATIENT DENIES CHILLS AT THIS TIME. DENIES PAIN. WILL ENCOURAGE TO GET OOB AND AMBULATE TODAY. BED IN LOW AND LOCKED POSITION, PERSONAL ITEMS AND CALL LIGHT WITHIN REACH.
[2020-08-18 07:25] LABS: BLOOD UREA NITROGEN 15 mg/dL (7-18)
--- NOTE | 2020-08-18 07:26 | NUR ---
NURSE HAND-OFF: Important Events on Shift:mylicon given x1, percocet x1, afebrile, blood culture came back with positive gram cocci & Dr. Ridley aware with new orders, reinforced ileo appliance bag multiple times with optifoam d/t leaking Patient Status: stable Diet: clear liquid with ensure Pending Orders: none Pending Results/Labs:none Pending MD notification: Decreased Hgb 8.0 & Hct 23.3, pt requesting for a perineal cream, burning sensation when urinating just started per pt Latest Vital Signs: Temperature 98.4 , Pulse 92 , B/P 100 /55 , Respiratory Rate 16 , O2 SAT 94 , Room Air, O2 Flow Rate 3.0 . Vital Sign Comment: Latest Henry Fall Score: 45 Fall Risk: High Risk Safety Measures: Call light Within Reach, Bed Alarm Zone 1, Side Rails Side Rails x2, Bed position Low and Locked. Fall Precautions: Yellow Socks Door Sign Patient Fall Education Report given to . Addendum: 08/18/20 at 0728 by Galina Hairston RN Report given to VALERI Prieto.
[2020-08-18] MEDS: BuPROPion SR 100mg tab ORAL SCH ×2 (08:35→18:08)
[2020-08-18] MEDS: Meloxicam 15 MG TAB ORAL SCH (08:35)
[2020-08-18] MEDS: Citalopram Hydrobromide 10mg Tab ORAL SCH (08:35)
[2020-08-18] MEDS: Pantoprazole Inj IVP SCH (08:36)
--- NOTE | 2020-08-18 12:18 | Infectious Diseases Prog Note ---
Assessment/Plan Assessment/Plan ASSESSMENT AND PLAN: 1. fevers, leukocytosis, ? sepsis, ileus vs bowel obstruction, 1/4 gram + organisms, ? picc line infection vs contaminant - zosyn - day # 4, vancomycin started this morning for possible gram + bacteremia and line infection - f/u on cultures, labs - management per Dr. Meadows - d/w Dr. Meadows - difficult iv access - keep line in until + blood culture significance clarified - d/w RN 2. 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 3. The patient has a history of intra-abdominal abscess and bowel obstruction in the past, status post surgery and drainage. 4. The patient has history of ulcerative colitis. 5. History of proctocolectomy. 6. History of multiple abdominal operations. 7. History of parathyroid adenoma resection. 8. History of spinal surgery. 9. Continue management per Dr. Meadows. 10. Past medical history is noted. 11. Allergies to adhesive tape and cefepime. The cefepime allergy was thrombocytopenia, not a true allergy, more of a side effect. Case was discussed with pharmacy and it should be safe to give Zosyn since the patient was on Unasyn. 12. Social history is negative. 13. Family history is noncontributory. 14. MAR is noted. 15. Case was discussed with RN. 16. Continue treatment per primary and consultants Subjective Constitutional: Denies: fever HEENT: Denies: congestion Respiratory: Denies: shortness of breath Cardiovascular: Denies: chest pain Gastrointestinal/Abdominal: Denies: nausea, vomiting Neurologic: Denies: headache Allergies: Coded Allergies: CEFEPIME (Verified Adverse Reaction, Severe, 08/05/20) causes low platlets ADHESIVE TAPE (Verified Adverse Reaction, Intermediate, Rash, 08/27/19) CLEAR TAPE Objective Last 24 Hour Vital Signs Date Time Temp Pulse Resp B/P (MAP) Pulse Ox O2 Delivery O2 Flow Rate FiO2 08/18/20 09:00 Room Air 08/18/20 08:50 94 Room Air 21 08/18/20 08:00 98.5 103 18 124/73 (90) 94 08/18/20 05:19 98.4 92 16 100/55 (70) 94 08/18/20 00:00 99.1 110 17 135/79 (97) 95 08/17/20 21:00 Room Air 08/17/20 20:00 99.7 110 16 113/71 (85) 95 08/17/20 16:00 99.3 94 16 127/93 (104) 94 Height (Feet): 5 Height (Inches): 5.00 Weight (Pounds): 126 General Appearance: no acute distress HEENT: normocephalic, atraumatic, anicteric Respiratory/Chest: lungs clear, normal breath sounds, no respiratory distress Cardiovascular: normal rate, regular rhythm Abdomen: normal bowel sounds, soft, non tender, no organomegaly CT abdomen and pelvis - 08/14/20 - Impression: Postsurgical changes, as described 8.4 x 2 cm gas and fluid collection in the anterior pelvis, may represent a routine postsurgical collection could also be infected. Distended small bowel. Probably secondary to postoperative ileus but distal small bowel obstruction not excludable. Fluid within the vaginal vault. Significance uncertain. Gas within the bladder, likely related to recent instrumentation. Bilateral moderate pleural effusions. Resultant passive atelectasis at both lung bases. Degenerative spondylosis Findings discussed by phone with Dr. Meadows at the time of interpretation Chest x-ray - 08/14/20 - COMPARISON: Chest radiograph August 11, 2020 FINDINGS/IMPRESSION: Enteric feeding tube terminates in the stomach. Right IJ catheter terminates in the superior vena cava. Mild vascular congestion and trace bilateral pleural effusions. The size of the left pleural effusion has improved when compared to August 11, 2020. No pneumothorax. Cardiomegaly. Microbiology Date/Time Source Procedure Growth Status 08/16/20 23:45 Blood Blood Culture - Preliminary NO GROWTH AFTER 24 HOURS Resulted 08/16/20 23:30 Blood Blood Culture - Preliminary Gram Positive Cocci Resulted Laboratory Tests Test 08/17/20 17:08 08/18/20 00:00 08/18/20 05:10 08/18/20 05:12 POC Whole Blood Glucose Pending 101 MG/DL (74-106) 120 MG/DL (74-106) H White Blood Count 11.2 K/UL (4.8-10.8) H Red Blood Count 2.58 M/UL (4.20-5.40) L Hemoglobin 8.0 G/DL (12.0-16.0) L Hematocrit 23.3 % (37.0-47.0) L Mean Corpuscular Volume 90 FL (80-99) Mean Corpuscular Hemoglobin 31.0 PG (27.0-31.0) Mean Corpuscular Hemoglobin Concent 34.4 G/DL (32.0-36.0) Red Cell Distribution Width 12.6 % (11.6-14.8) Platelet Count 371 K/UL (150-450) Mean Platelet Volume 6.3 FL (6.5-10.1) L Neutrophils (%) (Auto) 82.5 % (45.0-75.0) H Lymphocytes (%) (Auto) 9.3 % (20.0-45.0) L Monocytes (%) (Auto) 7.4 % (1.0-10.0) Eosinophils (%) (Auto) 0.1 % (0.0-3.0) Basophils (%) (Auto) 0.7 % (0.0-2.0) Sodium Level 137 MMOL/L (136-145) Potassium Level 3.7 MMOL/L (3.5-5.1) Chloride Level 106 MMOL/L (98-107) Carbon Dioxide Level 26 MMOL/L (21-32) Anion Gap 5 mmol/L (5-15) Blood Urea Nitrogen 15 mg/dL (7-18) Creatinine 0.9 MG/DL (0.55-1.30) Estimat Glomerular Filtration Rate > 60 mL/min (>60) Glucose Level 115 MG/DL (74-106) H Calcium Level 8.0 MG/DL (8.5-10.1) L Phosphorus Level 3.6 MG/DL (2.5-4.9) Magnesium Level 2.0 MG/DL (1.8-2.4) Total Bilirubin 0.8 MG/DL (0.2-1.0) Aspartate Amino Transf (AST/SGOT) 25 U/L (15-37) Alanine Aminotransferase (ALT/SGPT) 27 U/L (12-78) Alkaline Phosphatase 324 U/L (46-116) H Total Protein 5.8 G/DL (6.4-8.2) L Albumin 1.6 G/DL (3.4-5.0) L Globulin 4.2 g/dL Albumin/Globulin Ratio 0.4 (1.0-2.7) L Current Medications Medications (Trade) Dose Ordered Sig/Jori Route PRN Reason Start Time Stop Time Status Last Admin Dose Admin Acetaminophen (Tylenol) 650 mg Q4H PRN ORAL Mild Pain or temp over 100.2 08/16/20 10:00 09/14/20 10:14 08/17/20 02:13 Bupropion HCl (Wellbutrin SR) 200 mg TWICE A DAY ORAL 08/12/20 09:00 09/11/20 08:59 08/18/20 08:35 Chlorhexidine Gluconate (Kathryn-Hex 2%) 1 applic DAILY@2000 TOPIC 08/07/20 20:15 11/05/20 20:14 08/17/20 20:04 Citalopram Hydrobromide (CeleXA) 10 mg DAILY ORAL 08/16/20 09:00 09/15/20 08:59 08/18/20 08:35 Dextrose 1,000 ml @ 0 mls/hr Q24H PRN IV PN interrupted or unavailable 08/05/20 20:00 09/04/20 19:59 Dextrose (Dextrose 50%) 25 ml Q30M PRN IV Hypoglycemia 08/05/20 20:00 11/03/20 19:59 Dextrose (Dextrose 50%) 50 ml Q30M PRN IV Hypoglycemia 08/05/20 20:00 11/03/20 19:59 Dicyclomine HCl (Bentyl) 10 mg QIDPRN PRN ORAL Abdominal cramps 08/17/20 09:30 11/15/20 09:29 Diphenhydramine HCl (Benadryl) 50 mg Q4H PRN IVP Itching/Pruritis 08/13/20 09:15 09/12/20 09:14 Fat Emulsion Intravenous 216 ml/Amino Acids/ Electrolytes/ Dextrose 1,800 ml @ 75 mls/hr Q24H IV 08/05/20 20:00 09/04/20 19:59 08/17/20 20:11 Folic Acid (Folate) 1 mg DAILY ORAL 08/16/20 09:00 09/15/20 08:59 08/18/20 08:35 Hydromorphone HCl (Dilaudid) 1 mg Q3H PRN SUBQ Severe Breakthru Pain (>7) 08/16/20 09:48 08/23/20 09:47 Insulin Aspart (NovoLOG) Q6HR SUBQ 08/06/20 00:00 11/04/20 00:00 08/06/20 17:38 Iron Sucrose 100 mg/Sodium Chloride 60 ml @ 240 mls/hr BEDTIME IVPB 08/14/20 21:00 08/18/20 21:14 08/17/20 20:14 Lorazepam (Ativan) 1 mg Q4H PRN SL Muscle Spasm 08/13/20 09:15 08/20/20 09:14 08/15/20 12:16 Meloxicam (Mobic) 15 mg DAILY ORAL 08/16/20 09:00 09/15/20 08:59 08/18/20 08:35 Naloxone HCl (Narcan) 0.1 mg Q1M PRN IVP RR<10/min OR SBP<90 mmHg 08/08/20 09:10 11/06/20 09:09 Ondansetron HCl (Zofran) 4 mg Q4H PRN IVP Nausea & Vomiting 08/06/20 15:00 09/05/20 14:59 08/14/20 10:09 Ondansetron HCl (Zofran) 4 mg Q4H PRN ORAL Nausea & Vomiting 08/16/20 08:45 09/14/20 10:14 Oxycodone/ Acetaminophen (Percocet 5-325) 1 tab Q4H PRN ORAL SEVERE PAIN 08/16/20 09:45 08/23/20 09:44 08/18/20 02:18 Pantoprazole (Protonix) 40 mg DAILY IVP 08/07/20 09:00 09/06/20 08:59 08/18/20 08:36 Patient Own Medication (Patient's Own Med) 1 ea DAILY ORAL 08/15/20 09:00 09/14/20 08:59 08/18/20 08:35 Phytonadione (Vitamin K) 10 mg ONCE A WEEK SUBQ 08/05/20 10:00 11/03/20 09:59 08/12/20 09:59 Piperacillin Sod/ Tazobactam Sod 3.375 gm/Dextrose 100 ml @ 25 mls/hr EVERY 8 HOURS IVPB 08/15/20 22:00 08/20/20 21:59 08/18/20 06:28 Prochlorperazine (Compazine) 10 mg Q6H PRN IVP anxiety 08/15/20 21:45 09/14/20 21:44 08/16/20 21:54 Simethicone (Mylicon) 80 mg QIDPRN PRN NG Abdominal cramps, gas 08/15/20 10:15 11/13/20 10:14 08/17/20 21:38 Trazodone HCl (Desyrel) 200 mg BEDTIME ORAL 08/16/20 21:00 09/14/20 20:59 08/17/20 20:14 Vancomycin HCl (Vanco pharmacy to dose) 1 ea DAILY PRN MISC Per rx protocol 08/18/20 04:30 09/17/20 04:29 Vancomycin HCl 1 gm/Dextrose 275 ml @ 183.708 mls/hr Q24H IVPB 08/19/20 06:00 08/24/20 05:59 Osmin Bermudez MD Aug 18, 2020 12:17
[2020-08-18] MEDS ORDERED: Fluconazole 150mg tab ORAL SCH (13:00)
[2020-08-18] MEDS ORDERED: LORazepam 1mg tab SL PRN (13:50)
--- NOTE | 2020-08-18 14:03 | General Progress Note ---
Progress Note Progress Note Afebrile x 36 hours c/o thrush, perineal pruritus Tolerating clear liquid diet. Now on Zosyn + started this AM on Vancomycin (one blood culture +) Abdomen soft, non-distended, incision healing, stoma stable Urine 2340 Ileostomy 700 WBC down 11,200 Hgb 8.0 chemistries stable albumin 1.6 Imp: Slowly improving Plan: Full liquid diet Continue TPN, maintain central line (only IV access) Nystatin po, diflucan po daily Lalo Meadows MD Aug 18, 2020 14:03
--- NOTE | 2020-08-18 14:12 | NUR ---
NURSE NOTES: PATIENT REMAINS STABLE. POOR APPETITE STILL. WILL ENCOURAGE PO. SAT UP TO CHAIR 1 HOUR AFTER P.T. SESSION. WILL ENCOURAGE TO GET OOB AGAIN FOR A WALK. NOTED ILEOSTOMY WITH SMALL LEAKAGE AROUND RIGHT SIDE OF APPLIANCE PERIMETER. WAFER STILL IN TACT. CLEANED SURROUNDING AREA AND DRIED THOROUGHLY. SKIN APPEARS TO BE C/D/I. NO REDNESS NOTED. APPLIED OPTIFOAM AROUND PERIMETER OF APPLIANCE SUGGESTED BY [facility].
[2020-08-18] MEDS: Nystatin Susp 500,000 units/5ml ORAL SCH ×3 (14:31→20:14)
--- NOTE | 2020-08-18 18:01 | NUR ---
NURSE NOTES: PATIENT RELUCTANT TO GO FOR ANOTHER WALK BUT WAS UP TO BSC MORE TODAY. USED THE BEDPAN WELL BUT MANAGED TO GET MINIMUM EXERCISE GETTING TO BSC. TOLERATED TRANSFER WELL. ATE SOME OF HER DINNER WITH ALOT ENCOURAGEMENT TO EAT.
[2020-08-18] MEDS: Simethicone 80mg tab NG PRN (18:09)
--- NOTE | 2020-08-18 18:30 | NUR ---
NURSE NOTES: ESTRADA ILEO LOW OUTPUT NOTED OUTPUT OF ESTRADA ILEO VERY LOW; 20 MLS. PATIENT STILL HAS POOR APPETITE. DENIES N/V/ ABDOMINAL PAIN. SOME FLATUS PRESENT. ADMINISTERED SIMETHICONE PO ORDERED. PLACED CALL TO DR. LAZAR. RETURN CALL RECEIVED, NEW ORDERS GIVEN AND CARRIED OUT.
[2020-08-18] MEDS ORDERED: Mineral Oil 30ml ud ORAL SCH (18:45)
--- NOTE | 2020-08-18 19:18 | NUR ---
NURSE NOTES: Received report & pt from VALERI Prieto. Pt in bed, a&ox4, in room air. Pt states she feels a lot better tonight. No s/s of acute distress & no c/o pain at this time. Lissette ileo intact, dressing C/D/I. Subclavian central line intact with TPN running as ordered. Plan of care discussed.
--- NOTE | 2020-08-18 19:24 | NUR ---
NURSE HAND-OFF: Important Events on Shift:LOW ESTRADA ILEO OUTPUT. Patient Status: STABLE Diet: FULL Pending Orders: N/A Pending Results/Labs:N/A Pending MD notification:N/A Latest Vital Signs: Temperature 98.0 , Pulse 100 , B/P 132 /86 , Respiratory Rate 18 , O2 SAT 97 , Room Air. Vital Sign Comment: STABLE Latest Henry Fall Score: 60 Fall Risk: High Risk Safety Measures: Call light Within Reach, Bed Alarm Zone 1, Side Rails Side Rails x2, Bed position Low and Locked. Fall Precautions: Door Sign Patient Fall Education Report given to ELY PASCUAL RN.
--- NOTE | 2020-08-18 20:00 | NUR ---
NURSE NOTES: Reinforced ileo appliance bag with optifoams. Appliance started leaking a lot.
[2020-08-18] MEDS: Dyna-Hex 2% Top Sol 2oz TOPIC SCH (20:12)
[2020-08-18] MEDS: Fat Emulsion Iv 20% 216 ML in Tpn 1,584 ML IV SCH (20:13)
[2020-08-18] MEDS: Iron Sucrose 100 MG in NS 55 ML IVPB SCH (20:14)
[2020-08-18] MEDS: TraZODone 100mg tab ORAL SCH (20:14)
--- NOTE | 2020-08-18 21:00 | NUR ---
NURSE NOTES: Reinforced ileo dressings again with multiple optifoams (per [facility]'s order) due to leaking.
[2020-08-19] MEDS: oxyCODONE HCL/Acetaminophen 5/325mg ORAL PRN (00:12)
[2020-08-19] MEDS: Simethicone 80mg tab NG PRN ×2 (00:12→20:34)
[2020-08-19 00:20] VITALS: BP 125/77
[2020-08-19] MEDS: Vancomycin 1gm in D5W 275ml IVPB SCH (05:03)
[2020-08-19 05:25] LABS: BASOPHILS % (AUTO) 0.7 % (0.0-2.0); EOSINOPHILS % (AUTO) 0.1 % (0.0-3.0); HEMATOCRIT 26.8 % (37.0-47.0); HEMOGLOBIN 8.7 G/DL (12.0-16.0); LYMPHOCYTES % (AUTO) 10.7 % (20.0-45.0); MEAN CORPUSCULAR VOLUME 99 FL (80-99); MONOCYTES % (AUTO) 8.7 % (1.0-10.0); NEUTROPHILS % (AUTO) 79.8 % (45.0-75.0); PLATELET COUNT 408 K/UL (150-450); RED BLOOD COUNT 2.71 M/UL (4.20-5.40); RED CELL DISTRIBUTION WIDTH 13.9 % (11.6-14.8); WHITE BLOOD COUNT 10.7 K/UL (4.8-10.8)
[2020-08-19 05:28] LABS: ALBUMIN 1.7 G/DL (3.4-5.0); ALBUMIN/GLOBULIN RATIO 0.4 (1.0-2.7); BILIRUBIN,TOTAL 0.8 MG/DL (0.2-1.0); CALCIUM 8.5 MG/DL (8.5-10.1); PHOSPHORUS 3.8 MG/DL (2.5-4.9)
[2020-08-19] MEDS: NovoLOG Insulin Flexpen SUBQ SCH ×3 (05:42→17:19)
--- NOTE | 2020-08-19 06:53 | NUR ---
NURSE HAND-OFF: Important Events on Shift: reinforced ileo dressing multiple times d/t leakage, afebrile Patient Status: stable Diet: full liquid Pending Orders: none Pending Results/Labs:none Pending MD notification:none Latest Vital Signs: Temperature 98.9 , Pulse 109 , B/P 125 /77 , Respiratory Rate 18 , O2 SAT 93 , Room Air, O2 Flow Rate 3.0 . Vital Sign Comment: none Latest Henry Fall Score: 60 Fall Risk: High Risk Safety Measures: Call light Within Reach, Bed Alarm Zone 1, Side Rails Side Rails x2, Bed position Low and Locked. Fall Precautions: Door Sign Patient Fall Education Report given to . Addendum: 08/19/20 at 0711 by Galina Hairston RN Report given to VALERI Luna.
--- NOTE | 2020-08-19 07:30 | NUR ---
NURSE NOTES: WALKING ROUNDS DONE WITH NIGHT RN. PATIENT AWAKE IN BED, HAVING BREAKFAST. SURGICAL SITE TO OF ESTRADA ILEOSTOMY C/D/I AFTER REINFORCED SD NIGHT RN WITH REVA. QUESTIONS ANSWERED, NEEDS MET AT THIS TIME. DISCUSSED PLAN OF CARE. APPETITE REMAINS POOR. WILL CONTINUE TO ENCOURAGE PO INTAKE AND TO GET OOB MORE TODAY. BED IN LOW AND LOCKED POSITION. CALL LIGHT AND PERSONAL ITEMS WITHIN REACH.
[2020-08-19 07:57] VITALS: BP 120/64
[2020-08-19] MEDS: Citalopram Hydrobromide 10mg Tab ORAL SCH (08:31)
[2020-08-19] MEDS: Nystatin Susp 500,000 units/5ml ORAL SCH ×4 (08:31→20:34)
[2020-08-19] MEDS: BuPROPion SR 100mg tab ORAL SCH ×2 (08:31→18:04)
[2020-08-19] MEDS: Meloxicam 15 MG TAB ORAL SCH (08:31)
[2020-08-19] MEDS: Pantoprazole Inj IVP SCH (08:32)
[2020-08-19] MEDS: Fluconazole 100mg tab ORAL SCH (08:32)
--- NOTE | 2020-08-19 09:20 | NUR ---
NURSE NOTES: SEEN BY DR. LAZAR TODAY. REMOVED ESTRADA ILEO APPLIANCE. TOLERATED REMOVAL WELL. NOTED SOME OOZING AROUND APPLIANCE. WILL PLACE A NEW DEVICE.
--- NOTE | 2020-08-19 09:26 | NUR ---
NURSE NOTES: NEW APPLIANCE PLACE TO ILEOSTOMY SITE WITH ASSISTANCE FROM CHARGE NURSE. TERI INTACT. PATIENT TOLERATED WELL.
--- NOTE | 2020-08-19 09:56 | General Progress Note ---
Progress Note Progress Note Continues afebrile. Pulse 92-110. c/o persistent cough past few days Tolerated full liquid diet small amount Abdomen soft, non-distended. Midline incision and RLQ incision are clean and healing with intact lu Ileostomy well formed but leaks under appliance Urine 3500 Ileostomy 295 Blood C&S - coag neg staph WBC now normal 10,700 Hgb up 8.7 (received 1000mg of Venofer) alk phos up 410 Albumin 1.7 Imp: Slowly improving Plan: Continue TPN and IV antibiotics (Zosyn + Vanco) Advance to BCIR diet F/U labs Will need ileostomy appliance with convexity Lalo Meadows MD Aug 19, 2020 09:56
--- NOTE | 2020-08-19 10:45 | General Progress Note ---
Subjective ROS Limited/Unobtainable: Yes Allergies: Coded Allergies: CEFEPIME (Verified Adverse Reaction, Severe, 08/05/20) causes low platlets ADHESIVE TAPE (Verified Adverse Reaction, Intermediate, Rash, 08/27/19) CLEAR TAPE Objective Last 24 Hour Vital Signs Date Time Temp Pulse Resp B/P (MAP) Pulse Ox O2 Delivery O2 Flow Rate FiO2 08/19/20 09:00 Room Air 08/19/20 07:57 98.4 98 20 120/64 (82) 97 08/19/20 07:35 96 Room Air 21 08/19/20 00:20 98.9 109 18 125/77 (93) 93 08/18/20 21:00 Room Air 08/18/20 20:00 98.0 111 16 124/73 (90) 95 08/18/20 19:31 93 Room Air 21 08/18/20 16:00 98.0 100 18 132/86 (101) 97 08/18/20 12:00 98.3 101 18 136/85 (102) 96 Intake and Output 08/18/20 08/19/20 19:00 07:00 Intake Total 1670 ml 1136 ml Output Total 2020 ml 1675 ml Balance -350 ml -539 ml Intake Oral 720 ml 236 ml IV Total 950 ml 900 ml Output Urine Total 2000 ml 1400 ml Other 20 ml 275 ml Laboratory Tests 08/18/20 12:14: POC Whole Blood Glucose 114H 08/18/20 16:51: POC Whole Blood Glucose 116H 08/18/20 23:33: POC Whole Blood Glucose 88 08/19/20 04:55: White Blood Count 10.7, Red Blood Count 2.71L, Hemoglobin 8.7L, Hematocrit 26.8L , Mean Corpuscular Volume 99#, Mean Corpuscular Hemoglobin 32.1H, Mean Corpuscular Hemoglobin Concent 32.5, Red Cell Distribution Width 13.9, Platelet Count 408, Mean Platelet Volume 7.5, Neutrophils (%) (Auto) 79.8H, Lymphocytes (%) (Auto) 10.7L, Monocytes (%) (Auto) 8.7, Eosinophils (%) (Auto) 0.1, Basophils (%) (Auto) 0.7, Sodium Level 141, Potassium Level 4.0, Chloride Level 106, Carbon Dioxide Level 29, Anion Gap 6, Blood Urea Nitrogen 12, Creatinine 1.0, Estimat Glomerular Filtration Rate 55.0, Glucose Level 104, Calcium Level 8.5, Phosphorus Level 3.8, Magnesium Level 1.9, Total Bilirubin 0.8, Aspartate Amino Transf (AST/SGOT) 30, Alanine Aminotransferase (ALT/SGPT) 28, Alkaline Phosphatase 410H, Total Protein 5.7L, Albumin 1.7L, Globulin 4.0, Albumin/Globulin Ratio 0.4L 08/19/20 05:08: POC Whole Blood Glucose 97 Height (Feet): 5 Height (Inches): 5.00 Weight (Pounds): 126 General Appearance: no apparent distress EENT: normal ENT inspection Neck: supple Cardiovascular: normal rate Respiratory/Chest: decreased breath sounds Abdomen: normal bowel sounds, non tender, soft Extremities: non-tender Assessment/Plan Assessment/Plan: Malfunctioning Kock pouch with inability to intubate with resulting functional small-bowel obstruction s/p removal of Kock pouch with conventional ileostomy TPN/npo c/o nausea CT; Impression: Postsurgical changes, as described 8.4 x 2 cm gas and fluid collection in the anterior pelvis, may represent a routine postsurgical collection could also be infected. Distended small bowel. Probably secondary to postoperative ileus but distal small bowel obstruction not excludable. Fluid within the vaginal vault. Significance uncertain. Gas within the bladder, likely related to recent instrumentation. Bilateral moderate pleural effusions. Resultant passive atelectasis at both lung bases. Degenerative spondylosis s/p CT guided drainage resolving ileus prn Bentyl positive blood culture on abx per ID on BCRI diet will Adrian Lozano MD Aug 19, 2020 10:45
[2020-08-19] MEDS: Phytonadione 10 mg/mL 1ml amp SUBQ SCH (11:10)
--- NOTE | 2020-08-19 11:11 | NUR ---
NURSE NOTES: WOO BY P.T. AMBULATED FURTHER AROUND NURSING UNIT. SAT UP TO CHAIR X1 HOUR. TOLERATED BETTER TODAY THAN YESTERDAY.
[2020-08-19 12:00] VITALS: BP 113/72
--- NOTE | 2020-08-19 12:39 | Diagnostic Imaging Report ---
Procedure: XRAY Chest 1v Reason for study: Reason For Exam: COUGH Comparison films: 08/16/2020. FINDINGS: Right central venous catheter remains in place. Vascularity is mildly prominent. There is slight increase of right infrahilar densities likely developing infiltrates. Cardiac and mediastinal silhouette are within normal limits. Small effusions noted. The bony thorax appear unremarkable. IMPRESSION: Slight increased right infrahilar infiltrate and bilateral small effusions.
--- NOTE | 2020-08-19 12:41 | NUR ---
CASE MANAGEMENT:REVIEW SI;ENTEROSTOMY MALFUNCTION. PROLONGED ILEUS. PARTIAL SBO. 98.9 109 20 125/77 93% ON RA H/H 8.7/26.8 ALB 1.7 IS;DIFLUCAN PO QD VANCOMYCIN IV Q24 NYSTATIN PO QID ZOSYN IV Q8 PERCOCET PO Q4 PRN MOBIC PO QD CELEXA PO QD MED SURG STATUS DCP;FROM HOME
--- NOTE | 2020-08-19 15:18 | Infectious Diseases Prog Note ---
Assessment/Plan Assessment/Plan ASSESSMENT AND PLAN: 1. fevers, leukocytosis, ? sepsis, ileus vs bowel obstruction, pelvic fluid collection but aspiration culture negative coag neg staph blood cultures - 3/4 bottles, ? line infection, difficult IV access ? aspiration pna/hcap on chest x-ray - zosyn - day # 5 - vancomycin - day # 2 - management per Dr. Meadows - d/w Dr. Meadows - difficult iv access - keep line for now, surveillance blood cultures ordered - d/w RN and patient - monitor labs, monitor chest x-ray - clinically improving 2. 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 3. The patient has a history of intra-abdominal abscess and bowel obstruction in the past, status post surgery and drainage. 4. The patient has history of ulcerative colitis. 5. History of proctocolectomy. 6. History of multiple abdominal operations. 7. History of parathyroid adenoma resection. 8. History of spinal surgery. 9. Continue management per Dr. Meadows. 10. Past medical history is noted. 11. Allergies to adhesive tape and cefepime. The cefepime allergy was thrombocytopenia, not a true allergy, more of a side effect. Case was discussed with pharmacy and it should be safe to give Zosyn since the patient was on Unasyn. 12. Social history is negative. 13. Family history is noncontributory. 14. MAR is noted. 15. Case was discussed with RN. 16. Continue treatment per primary and consultants Subjective Constitutional: Reports: fatigue, other - patinet feels better; Denies: fever HEENT: Denies: congestion Respiratory: Denies: shortness of breath Cardiovascular: Denies: chest pain Gastrointestinal/Abdominal: Denies: nausea, vomiting Neurologic: Denies: headache Psychiatric: Denies: depression Skin: Denies: rash Hematologic: Denies: bleeding Musculoskeletal: Denies: pain Allergies: Coded Allergies: CEFEPIME (Verified Adverse Reaction, Severe, 08/05/20) causes low platlets ADHESIVE TAPE (Verified Adverse Reaction, Intermediate, Rash, 08/27/19) CLEAR TAPE Objective Last 24 Hour Vital Signs Date Time Temp Pulse Resp B/P (MAP) Pulse Ox O2 Delivery O2 Flow Rate FiO2 08/19/20 12:00 98.7 101 20 113/72 (86) 97 08/19/20 09:00 Room Air 08/19/20 07:57 98.4 98 20 120/64 (82) 97 08/19/20 07:35 96 Room Air 21 08/19/20 00:20 98.9 109 18 125/77 (93) 93 08/18/20 21:00 Room Air 08/18/20 20:00 98.0 111 16 124/73 (90) 95 08/18/20 19:31 93 Room Air 21 08/18/20 16:00 98.0 100 18 132/86 (101) 97 Height (Feet): 5 Height (Inches): 5.00 Weight (Pounds): 126 General Appearance: no acute distress HEENT: normocephalic, atraumatic, anicteric, mucous membranes moist Respiratory/Chest: lungs clear, normal breath sounds, no respiratory distress, no accessory muscle use Cardiovascular: normal rate, regular rhythm, no gallop/murmur, no JVD Abdomen: normal bowel sounds, soft, non tender, no organomegaly, non distended Genitourinary: other - no decker Extremities: no cyanosis Skin: no rash Neurologic/Psychiatric: bell hole digger II-XII grossly normal, alert, oriented x 3, responsive Lymphatic: no neck adenopathy Musculoskeletal: no effusion CT abdomen and pelvis - 08/14/20 - Impression: Postsurgical changes, as described 8.4 x 2 cm gas and fluid collection in the anterior pelvis, may represent a routine postsurgical collection could also be infected. Distended small bowel. Probably secondary to postoperative ileus but distal smal l bowel obstruction not excludable. Fluid within the vaginal vault. Significance uncertain. Gas within the bladder, likely related to recent instrumentation. Bilateral moderate pleural effusions. Resultant passive atelectasis at both lung bases. Degenerative spondylosis Findings discussed by phone with Dr. Meadows at the time of interpretation Chest x-ray - 08/14/20 - COMPARISON: Chest radiograph August 11, 2020 FINDINGS/IMPRESSION: Enteric feeding tube terminates in the stomach. Right IJ catheter terminates in the superior vena cava. Mild vascular congestion and trace bilateral pleural effusions. The size of the left pleural effusion has improved when compared to August 11, 2020. No pneumothorax. Cardiomegaly. Microbiology Date/Time Source Procedure Growth Status 08/16/20 23:45 Blood Blood Culture - Preliminary Staphylococcus Sp Coag Neg Resulted 08/16/20 23:30 Blood Blood Culture - Preliminary Staphylococcus Sp Coag Neg Resulted Laboratory Tests Test 08/18/20 16:51 08/18/20 23:33 08/19/20 04:55 08/19/20 05:08 POC Whole Blood Glucose 116 MG/DL (74-106) H 88 MG/DL (74-106) 97 MG/DL (74-106) White Blood Count 10.7 K/UL (4.8-10.8) Red Blood Count 2.71 M/UL (4.20-5.40) L Hemoglobin 8.7 G/DL (12.0-16.0) L Hematocrit 26.8 % (37.0-47.0) L Mean Corpuscular Volume 99 FL (80-99) # Mean Corpuscular Hemoglobin 32.1 PG (27.0-31.0) H Mean Corpuscular Hemoglobin Concent 32.5 G/DL (32.0-36.0) Red Cell Distribution Width 13.9 % (11.6-14.8) Platelet Count 408 K/UL (150-450) Mean Platelet Volume 7.5 FL (6.5-10.1) Neutrophils (%) (Auto) 79.8 % (45.0-75.0) H Lymphocytes (%) (Auto) 10.7 % (20.0-45.0) L Monocytes (%) (Auto) 8.7 % (1.0-10.0) Eosinophils (%) (Auto) 0.1 % (0.0-3.0) Basophils (%) (Auto) 0.7 % (0.0-2.0) Sodium Level 141 MMOL/L (136-145) Potassium Level 4.0 MMOL/L (3.5-5.1) Chloride Level 106 MMOL/L (98-107) Carbon Dioxide Level 29 MMOL/L (21-32) Anion Gap 6 mmol/L (5-15) Blood Urea Nitrogen 12 mg/dL (7-18) Creatinine 1.0 MG/DL (0.55-1.30) Estimat Glomerular Filtration Rate 55.0 mL/min (>60) Glucose Level 104 MG/DL (74-106) Calcium Level 8.5 MG/DL (8.5-10.1) Phosphorus Level 3.8 MG/DL (2.5-4.9) Magnesium Level 1.9 MG/DL (1.8-2.4) Total Bilirubin 0.8 MG/DL (0.2-1.0) Aspartate Amino Transf (AST/SGOT) 30 U/L (15-37) Alanine Aminotransferase (ALT/SGPT) 28 U/L (12-78) Alkaline Phosphatase 410 U/L (46-116) H Total Protein 5.7 G/DL (6.4-8.2) L Albumin 1.7 G/DL (3.4-5.0) L Globulin 4.0 g/dL Albumin/Globulin Ratio 0.4 (1.0-2.7) L Test 08/19/20 11:31 POC Whole Blood Glucose 129 MG/DL (74-106) H Current Medications Medications (Trade) Dose Ordered Sig/Jori Route PRN Reason Start Time Stop Time Status Last Admin Dose Admin Acetaminophen (Tylenol) 650 mg Q4H PRN ORAL Mild Pain or temp over 100.2 08/16/20 10:00 09/14/20 10:14 08/17/20 02:13 Bupropion HCl (Wellbutrin SR) 200 mg TWICE A DAY ORAL 08/12/20 09:00 09/11/20 08:59 08/19/20 08:31 Chlorhexidine Gluconate (Kathryn-Hex 2%) 1 applic DAILY@2000 TOPIC 08/07/20 20:15 11/05/20 20:14 08/18/20 20:12 Citalopram Hydrobromide (CeleXA) 10 mg DAILY ORAL 08/16/20 09:00 09/15/20 08:59 08/19/20 08:31 Dextrose 1,000 ml @ 0 mls/hr Q24H PRN IV PN interrupted or unavailable 08/05/20 20:00 09/04/20 19:59 Dextrose (Dextrose 50%) 25 ml Q30M PRN IV Hypoglycemia 08/05/20 20:00 11/03/20 19:59 Dextrose (Dextrose 50%) 50 ml Q30M PRN IV Hypoglycemia 08/05/20 20:00 11/03/20 19:59 Dicyclomine HCl (Bentyl) 10 mg QIDPRN PRN ORAL Abdominal cramps 08/17/20 09:30 11/15/20 09:29 Diphenhydramine HCl (Benadryl) 50 mg Q4H PRN IVP Itching/Pruritis 08/13/20 09:15 09/12/20 09:14 Fat Emulsion Intravenous 216 ml/Amino Acids/ Electrolytes/ Dextrose 1,800 ml @ 75 mls/hr Q24H IV 08/05/20 20:00 09/04/20 19:59 08/18/20 20:13 Fluconazole (Diflucan) 100 mg DAILY ORAL 08/19/20 09:00 08/26/20 08:59 08/19/20 08:32 Folic Acid (Folate) 1 mg DAILY ORAL 08/16/20 09:00 09/15/20 08:59 08/19/20 08:31 Hydromorphone HCl (Dilaudid) 1 mg Q3H PRN SUBQ Severe Breakthru Pain (>7) 08/16/20 09:48 08/23/20 09:47 Insulin Aspart (NovoLOG) Q6HR SUBQ 08/06/20 00:00 11/04/20 00:00 08/06/20 17:38 Lorazepam (Ativan) 1 mg Q4H PRN SL Muscle Spasm 08/18/20 13:50 08/25/20 13:49 Meloxicam (Mobic) 15 mg DAILY ORAL 08/16/20 09:00 09/15/20 08:59 08/19/20 08:31 Naloxone HCl (Narcan) 0.1 mg Q1M PRN IVP RR<10/min OR SBP<90 mmHg 08/08/20 09:10 11/06/20 09:09 Nystatin (Nystatin) 5 ml QID ORAL 08/18/20 14:00 08/25/20 13:59 08/19/20 13:59 Ondansetron HCl (Zofran) 4 mg Q4H PRN IVP Nausea & Vomiting 08/06/20 15:00 09/05/20 14:59 08/14/20 10:09 Ondansetron HCl (Zofran) 4 mg Q4H PRN ORAL Nausea & Vomiting 08/16/20 08:45 09/14/20 10:14 Oxycodone/ Acetaminophen (Percocet 5-325) 1 tab Q4H PRN ORAL SEVERE PAIN 08/16/20 09:45 08/23/20 09:44 08/19/20 00:12 Pantoprazole (Protonix) 40 mg DAILY IVP 08/07/20 09:00 09/06/20 08:59 08/19/20 08:32 Patient Own Medication (Patient's Own Med) 1 ea DAILY ORAL 08/15/20 09:00 09/14/20 08:59 08/19/20 08:32 Phytonadione (Vitamin K) 10 mg ONCE A WEEK SUBQ 08/05/20 10:00 11/03/20 09:59 08/19/20 11:10 Piperacillin Sod/ Tazobactam Sod 3.375 gm/Dextrose 100 ml @ 25 mls/hr Q8H IVPB 08/19/20 16:00 08/26/20 15:59 Prochlorperazine (Compazine) 10 mg Q6H PRN IVP anxiety 08/15/20 21:45 09/14/20 21:44 08/16/20 21:54 Simethicone (Mylicon) 80 mg QIDPRN PRN NG Abdominal cramps, gas 08/15/20 10:15 11/13/20 10:14 08/19/20 00:12 Trazodone HCl (Desyrel) 200 mg BEDTIME ORAL 08/16/20 21:00 09/14/20 20:59 08/18/20 20:14 Vancomycin HCl (Vanco pharmacy to dose) 1 ea DAILY PRN MISC Per rx protocol 08/18/20 04:30 09/17/20 04:29 Vancomycin HCl 1 gm/Dextrose 275 ml @ 183.708 mls/hr Q24H IVPB 08/19/20 06:00 08/24/20 05:59 08/19/20 05:03 Osmin Bermudez MD Aug 19, 2020 15:18
--- NOTE | 2020-08-19 15:50 | NUR ---
NURSE NOTES: PER MD REQUEST, CHANGED ILEO APPLIANCE TO A CONVEX DEVICE. PATIENT TOLERATED WELL. SKIN C/D/I. SOME IRRITATION TO SKIN TO THE SIDE OF THE TERI. SUPPLIES AT BEDSIDE.
[2020-08-19 16:00] VITALS: BP 133/77
--- NOTE | 2020-08-19 17:33 | NUR ---
NURSE NOTES: APPETITE REMAINS POOR. ENCOURAGED TO EAT MORE. STATE SHE DOES NOT HAVE AN APPETITE. DRANK HALF OF ENSURE. DRINKING SIPS OF WATER IN BETWEEN.
--- NOTE | 2020-08-19 17:41 | NUR ---
NURSE NOTES: CHECKED OUTPUT OF ILEOSTOMY; LITTLE OR NONE. PATIENT APPETITE REMAINS POOR. DENIES N/V. DR. LAZAR NOTIFIED. NEW MED ORDER GIVEN. PATIENT INFORMED.
[2020-08-19] MEDS ORDERED: Lactulose 10gm/15ml UDC ORAL SCH (17:45)
--- NOTE | 2020-08-19 18:00 | NUR ---
NURSE NOTES: LACTULOSE GIVEN PO ORDERED BY DR. LAZAR. NO ILEOSTOMY OUTPUT THUS FAR. PATIENT ENDORSED TO NIGHT RN. WILL MONITOR FOR ILEO OUTPUT.
[2020-08-19 20:00] VITALS: BP 138/92
--- NOTE | 2020-08-19 20:00 | NUR ---
NURSE NOTES: PATIENT STATES SHE HAS A DRY COUGH INTERMITTENTLY. SPUTUM INDUCTION ORDERED BY ID. PATIENT AWARE.
[2020-08-19] MEDS: TraZODone 100mg tab ORAL SCH (20:34)
[2020-08-19] MEDS: Dyna-Hex 2% Top Sol 2oz TOPIC SCH (20:34)
[2020-08-19] MEDS: Fat Emulsion Iv 20% 216 ML in Tpn 1,584 ML IV SCH (20:37)
[2020-08-20] VITALS: BP 138/90
[2020-08-20 04:00] VITALS: BP 132/76
[2020-08-20] MEDS: Vancomycin 1gm in D5W 275ml IVPB SCH (05:11)
[2020-08-20] MEDS: NovoLOG Insulin Flexpen SUBQ SCH ×4 (05:11→18:00)
--- NOTE | 2020-08-20 06:51 | NUR ---
NURSE HAND-OFF: Important Events on Shift:Patient has several episodes of urinary incontinence throughout manager night. she also has some urinary urgency, she voids about 100 mL or less at one time and feels the urge to void again right after initial void. Total ileo output 425 mL. Greenish liquid output with a some solid stool. Per day shift, she has had not much appetite. Encouraged increased fluid intake. Patient Status: Stable Diet: BCIR low residue diet Pending Orders: [] Pending Results/Labs:[] Pending MD notification:[] Latest Vital Signs: Temperature 98.0 , Pulse 115 , B/P 132 /76 , Respiratory Rate 20 , O2 SAT 94 , Room Air, O2 Flow Rate 3.0 . Vital Sign Comment: [] Latest Henry Fall Score: 60 Fall Risk: High Risk Safety Measures: Call light Within Reach, Bed Alarm Zone 1, Side Rails Side Rails x2, Bed position Low and Locked. Fall Precautions: Door Sign Patient Fall Education Report given to Jason TRAMMELL
[2020-08-20 07:09] LABS: ALBUMIN 1.8 G/DL (3.4-5.0); ALBUMIN/GLOBULIN RATIO 0.4 (1.0-2.7); BILIRUBIN,TOTAL 0.8 MG/DL (0.2-1.0); CALCIUM 8.3 MG/DL (8.5-10.1); PHOSPHORUS 3.3 MG/DL (2.5-4.9); POTASSIUM 3.8 MMOL/L (3.5-5.1)
[2020-08-20 07:44] LABS: BASOPHILS % (AUTO) 0.4 % (0.0-2.0); EOSINOPHILS % (AUTO) 0.2 % (0.0-3.0); HEMATOCRIT 26.9 % (37.0-47.0); HEMOGLOBIN 8.8 G/DL (12.0-16.0); LYMPHOCYTES % (AUTO) 7.7 % (20.0-45.0); MEAN CORPUSCULAR VOLUME 96 FL (80-99); NEUTROPHILS % (AUTO) 83.7 % (45.0-75.0); PLATELET COUNT 470 K/UL (150-450); RED BLOOD COUNT 2.82 M/UL (4.20-5.40); RED CELL DISTRIBUTION WIDTH 14.1 % (11.6-14.8); WHITE BLOOD COUNT 11.9 K/UL (4.8-10.8)
[2020-08-20 08:00] VITALS: BP 135/80
[2020-08-20] MEDS: Meloxicam 15 MG TAB ORAL SCH (09:14)
[2020-08-20] MEDS: Nystatin Susp 500,000 units/5ml ORAL SCH ×3 (09:14→20:33)
[2020-08-20] MEDS: Citalopram Hydrobromide 10mg Tab ORAL SCH (09:15)
[2020-08-20] MEDS: oxyCODONE HCL/Acetaminophen 5/325mg ORAL PRN ×3 (09:15→21:33)
[2020-08-20] MEDS: Fluconazole 100mg tab ORAL SCH (09:15)
[2020-08-20] MEDS: BuPROPion SR 100mg tab ORAL SCH ×2 (09:15→17:42)
[2020-08-20] MEDS: Pantoprazole Inj IVP SCH (09:16)
--- NOTE | 2020-08-20 10:52 | NUR ---
RD ASSESSMENT & RECOMMENDATIONS SEE CARE ACTIVITY FOR COMPLETE ASSESSMENT DAILY ESTIMATED NEEDS: Needs based on Surgery / 58.9kg abw 25-35 kcals/kg 8513-0210 total kcals 1-2.0g/kg w/ surgery g protein/kg 59-118g w/ surgery g total protein 25-30 mL/kg 1715-4630 total fluid mLs NUTRITION DIAGNOSIS: Altered GI function R/T h/o malfunctioning ileo, as evidenced by pt unable to intubate, awaiting now s/p pouch endoscopy, on BCIR low residue diet, made NPO again for dilated loops fluid and gas filled per CT scan, s/p kock pouch resection, creation of Lissette ileo, diet now advanced to BCIR low residue diet, cont on TPN. CURRENT DIET:BCIR low residue diet PO DIET RECOMMENDATIONS: Consider liberalizing diet to low fiber/low residue diet for improved PO acceptance PARENTERAL NUTRITION RECOMMENDATIONS: D/AA Rate: 66 IL Rate: 9 Total Rate: 75 Volume: 1800 % Dextrose: 17 % AA: 5.3 Energy (kcals/kg): 1683 Protein (g/kg protein): 84 Nonprotein KCALS: 1348 GIR (mg CHO/kg/min): 3.2 % Fat KCALS: 27 NCP: N Ratio: 100:1 TPN Comment: - D17% w/ AA 5.3% @ 66ml/hr + 20%IL @9ml/hr-> total of 75ml/hr, all 3:1 - TPN at goal meets 100% est needs. - Monitor oral diet intake, for ability to taper down TPN ADDITIONAL RECOMMENDATIONS: * Standing wt as able while ambulating for accurate CBW (04/28) standing wt of 135.8 lbs (07/16) Bed wt 130 lbs * Check BG, lytes and LFT's w/ TPN -> ALP trending up w/ continued trending up ALP may nee to adjust TPN formulary, cont to monitor Diet now advanced to BCIR low residue diet, monitor for continued TPN * Ensure Enlive BID w/ meals added
[2020-08-20 12:00] VITALS: BP 113/69
--- NOTE | 2020-08-20 13:21 | NUR ---
PT NOTE Attempted to see patient in the a.m. and in the p.m. In the a.m. patient declined due to abdominal pain. Currently patient is very groggy, patient states she took pain medication. Patient unable to participate with PT at this time. Ashli dobbins RN notified, will follow.
--- NOTE | 2020-08-20 13:35 | General Progress Note ---
Subjective ROS Limited/Unobtainable: Yes Allergies: Coded Allergies: CEFEPIME (Verified Adverse Reaction, Severe, 08/05/20) causes low platlets ADHESIVE TAPE (Verified Adverse Reaction, Intermediate, Rash, 08/27/19) CLEAR TAPE Objective Last 24 Hour Vital Signs Date Time Temp Pulse Resp B/P (MAP) Pulse Ox O2 Delivery O2 Flow Rate FiO2 08/20/20 12:00 98.1 94 19 113/69 (84) 95 08/20/20 09:00 Room Air 08/20/20 08:00 98.0 105 18 135/80 (98) 94 08/20/20 04:00 98.0 115 20 132/76 (94) 94 08/20/20 00:00 98.3 115 20 138/90 (106) 93 08/19/20 21:20 93 Room Air 21 08/19/20 21:00 Room Air 08/19/20 20:00 98.5 108 20 138/92 (107) 93 08/19/20 16:00 98.6 103 20 133/77 (95) 97 Intake and Output 08/19/20 08/20/20 19:00 07:00 Intake Total 2235 ml 1080 ml Output Total 1800 ml 1770 ml Balance 435 ml -690 ml Intake Oral 960 ml 480 ml IV Total 1275 ml 600 ml Output Urine Total 1800 ml 1345 ml Other 0 ml 425 ml # Voids 10 Laboratory Tests 08/19/20 16:59: POC Whole Blood Glucose 116H 08/19/20 22:57: POC Whole Blood Glucose 116H 08/20/20 05:00: White Blood Count 11.9H, Red Blood Count 2.82L, Hemoglobin 8.8L, Hematocrit 26.9L, Mean Corpuscular Volume 96, Mean Corpuscular Hemoglobin 31.2H, Mean Corpu scular Hemoglobin Concent 32.7, Red Cell Distribution Width 14.1, Platelet Count 470H, Mean Platelet Volume 7.1, Neutrophils (%) (Auto) 83.7H, Lymphocytes (%) (Auto) 7.7L, Monocytes (%) (Auto) 8.0, Eosinophils (%) (Auto) 0.2, Basophils (%) (Auto) 0.4, Sodium Level 138, Potassium Level 3.8, Chloride Level 105, Carbon Dioxide Level 28, Anion Gap 6, Blood Urea Nitrogen 15, Creatinine 1.0, Estimat Glomerular Filtration Rate 55.0, Glucose Level 97, Calcium Level 8.3L, Phosphorus Level 3.3, Magnesium Level 1.8, Total Bilirubin 0.8, Aspartate Amino Transf (AST/SGOT) 32, Alanine Aminotransferase (ALT/SGPT) 31, Alkaline Phosphatase 451H, Total Protein 5.9L, Albumin 1.8L, Globulin 4.1, Albumin/Globulin Ratio 0.4L 08/20/20 12:18: POC Whole Blood Glucose 123H Height (Feet): 5 Height (Inches): 5.00 Weight (Pounds): 126 General Appearance: alert EENT: PERRL/EOMI Neck: supple Cardiovascular: normal rate Respiratory/Chest: decreased breath sounds Abdomen: soft, hypoactive bowel sounds Extremities: non-tender Assessment/Plan Assessment/Plan: leakage from ostomy site, pending changing the bag c/o weakness poor oral intake on TPN dietitian in put appreciated fu surg recs Adrian Morrison MD Aug 20, 2020 13:35
--- NOTE | 2020-08-20 13:44 | General Progress Note ---
Progress Note Progress Note Continues afebrile but persistent cough and tachycardia (intermittent). On Zosyn + Vancomycin Eating small amounts and no GI complaints. Did better with last ileostomy appliance lasted 48 hours Abdomen soft Urine 3145 Ileostomy 425 (had lactulose x 1 after no output all day yesterday) WBC up 11,900 Platelets up 470,000 Hgb stable 8.8 Alk phos 451 Albumin 1.8 CXR - increasing infiltrate Imp: Cough and infiltrate on CXR Plan; Pulmonology consultation Continue TPN Stoma care with convexity appliance f/u labs Lalo Meadows MD Aug 20, 2020 13:44
[2020-08-20 16:00] VITALS: BP 123/77
[2020-08-20] MEDS ORDERED: Tubing IV Secondary IV ONE (18:22)
[2020-08-20] MEDS: Simethicone 80mg tab NG PRN (18:34)
--- NOTE | 2020-08-20 19:30 | NUR ---
NURSE NOTES: Receive a report from VALERI Gomez. Round is done. Pt is awake and eating dinner, which finished 4/. No acute distress noted. No leaking from Lissette ileostomy bag and strap around the waist. No bloating/ no nausea noted. Pain is tolerating. TPN is running via [place] on RUC. Site is intact. Encourage to deep breathing and ROM in bed. Call light within reach. Will continue to monitor.
--- NOTE | 2020-08-20 19:56 | NUR ---
NURSE HAND-OFF: Important Events on Shift: Patient Status: stable Diet: BCIR Low residual Pending Orders: Pending Results/Labs: Pending MD notification: Latest Vital Signs: Temperature 97.8 , Pulse 95 , B/P 123 /77 , Respiratory Rate 19 , O2 SAT 97 , Room Air, O2 Flow Rate 3.0 . Vital Sign Comment: Latest Henry Fall Score: 60 Fall Risk: High Risk Safety Measures: Call light Within Reach, Bed Alarm Zone 1, Side Rails Side Rails x2, Bed position Low and Locked. Fall Precautions: Door Sign Patient Fall Education Report given to Srikanth TRAMMELL
--- NOTE | 2020-08-20 19:57 | NUR ---
NURSE NOTES: pt remained stable all shift, pt had poor PO intake , pt ate only dinner , pt continues to use bed leiva and pt did not get out of bed today, pt refused physical therapy X2, given pain medication X2 for Abd pain ,and was effective. Lissette ileo changed with Txt nurse , well tolerated. Lissette ileo 125 urine out put 1325
[2020-08-20 20:00] VITALS: BP 119/65
[2020-08-20] MEDS: Dyna-Hex 2% Top Sol 2oz TOPIC SCH (20:33)
[2020-08-20] MEDS: Fat Emulsion Iv 20% 216 ML in Tpn 1,584 ML IV SCH (20:37)
--- NOTE | 2020-08-20 21:30 | NUR ---
NURSE NOTES: Given prn pain medication. Pt wants to take sleeping pills later. Pt voids using bedpan and so far voided two times, 100ml and 150ml. No dysuria/urgency noted. Will continue to monitor.
[2020-08-21] VITALS: BP 112/63
[2020-08-21] MEDS: TraZODone 100mg tab ORAL SCH ×2 (00:13→22:53)
[2020-08-21 04:00] VITALS: BP 115/62
--- NOTE | 2020-08-21 04:00 | NUR ---
NURSE NOTES: Denies pain at this time. No acute distress. Afebrile. Morning care is done. Made aware for Vanco Trough @ 5am. Will continue to monitor.
[2020-08-21 05:25] LABS: BASOPHILS % (AUTO) 0.7 % (0.0-2.0); EOSINOPHILS % (AUTO) 0.1 % (0.0-3.0); HEMATOCRIT 27.2 % (37.0-47.0); HEMOGLOBIN 8.7 G/DL (12.0-16.0); LYMPHOCYTES % (AUTO) 11.5 % (20.0-45.0); MEAN CORPUSCULAR VOLUME 98 FL (80-99); MONOCYTES % (AUTO) 8.3 % (1.0-10.0); NEUTROPHILS % (AUTO) 79.5 % (45.0-75.0); PLATELET COUNT 454 K/UL (150-450); RED BLOOD COUNT 2.76 M/UL (4.20-5.40); RED CELL DISTRIBUTION WIDTH 14.2 % (11.6-14.8); WHITE BLOOD COUNT 9.7 K/UL (4.8-10.8)
[2020-08-21 05:56] LABS: ALBUMIN 1.8 G/DL (3.4-5.0); ALBUMIN/GLOBULIN RATIO 0.4 (1.0-2.7); BILIRUBIN,TOTAL 0.6 MG/DL (0.2-1.0); CALCIUM 8.4 MG/DL (8.5-10.1); CREATININE 1.1 MG/DL (0.55-1.30)
[2020-08-21 05:57] LABS: PHOSPHORUS 3.8 MG/DL (2.5-4.9)
[2020-08-21] MEDS: NovoLOG Insulin Flexpen SUBQ SCH ×4 (06:00→18:00)
--- NOTE | 2020-08-21 06:15 | NUR ---
NURSE NOTES: Vanco Trough result came back and receive new schedule for Vancomycin.
--- NOTE | 2020-08-21 07:30 | NUR ---
HAND-OFF: Report given to VALERI Gomez. Round is made.
--- NOTE | 2020-08-21 07:58 | NUR ---
NURSE NOTES: Received report from Gho RN, rounds made pt sleeping with no s/s of distress , breaths regular unlabored on RA. Pt has R subclavian catheter with IVF, TKO dressing clean intact, Lissette ileo on the R lower quad intact ,bed in low locked position , side rails upX2 will continue to monitor
[2020-08-21 08:00] VITALS: BP 113/62
[2020-08-21] MEDS: Vancomycin 750mg/NS 275ml IVPB SCH ×4 (08:17→20:29)
[2020-08-21] MEDS: Pantoprazole Inj IVP SCH (08:18)
[2020-08-21] MEDS: Citalopram Hydrobromide 10mg Tab ORAL SCH (08:18)
[2020-08-21] MEDS: Fluconazole 100mg tab ORAL SCH (08:18)
[2020-08-21] MEDS: BuPROPion SR 100mg tab ORAL SCH ×2 (08:18→17:11)
[2020-08-21] MEDS: Meloxicam 15 MG TAB ORAL SCH (08:18)
[2020-08-21] MEDS: Nystatin Susp 500,000 units/5ml ORAL SCH ×4 (08:18→20:29)
--- NOTE | 2020-08-21 08:48 | NUR ---
RADIOLOGY DEPT., CHEST X-RAY DONE.-P.DYE
[2020-08-21] MEDS: Piperacillin/Tazobactam 3.375 GM in D5W 110 ML IVPB SCH ×2 (09:52→17:12)
[2020-08-21] MEDS ORDERED: HYDROmorphone 1mg/ml Carpuject SUBQ PRN (11:39)
--- NOTE | 2020-08-21 11:55 | General Progress Note ---
Progress Note Progress Note AVSS with much improved tachycardia now 89-101. Her cough is much improved Eating small amount only Abdomen soft, flat New ileostomy convex appliance with belt is preventing leaking so far Urine 1785 Ileostomy 245 WBC 9700 Hgb 8,7 Platelets down 454,000 BUN 21 Cr 1.1 alk phos down 392 Imp: Improved Plan: Zosyn + Vanco per ID continue TPN until eating better No acute respiratory issues now - ? resolved spontaneously, f/u CXR pending this AM Lalo Meadows MD Aug 21, 2020 11:55
[2020-08-21 12:00] VITALS: BP 116/67
--- NOTE | 2020-08-21 12:00 | NUR ---
PT WEEKLY PROGRESS NOTE Patient being seen by PT for therapeutic exercises, transfer training and gait training. Patient requires SBA for bed mobility and for transfers with FWW. Patient able to ambulate up to 70 ft with the FWW with one sitting rest. Ambulation limited due to weakness and fatigue. Patient will continue to benefit from skilled inpatient PT intervention to increase strength and postural stability for improved level of functional mobility and activity tolerance with transfers and ambulation.
--- NOTE | 2020-08-21 12:27 | General Progress Note ---
Subjective ROS Limited/Unobtainable: Yes Allergies: Coded Allergies: CEFEPIME (Verified Adverse Reaction, Severe, 08/05/20) causes low platlets ADHESIVE TAPE (Verified Adverse Reaction, Intermediate, Rash, 08/27/19) CLEAR TAPE Objective Last 24 Hour Vital Signs Date Time Temp Pulse Resp B/P (MAP) Pulse Ox O2 Delivery O2 Flow Rate FiO2 08/21/20 09:00 Room Air 08/21/20 08:00 98.2 98 17 113/62 (79) 96 08/21/20 04:00 97.8 89 18 115/62 (79) 96 08/21/20 00:00 98.0 97 19 112/63 (79) 95 08/20/20 21:00 Room Air 08/20/20 20:00 98.3 101 19 119/65 (83) 97 08/20/20 16:00 97.8 95 19 123/77 (92) 97 Intake and Output 08/20/20 08/21/20 19:00 07:00 Intake Total 355 ml 1200 ml Output Total 1450 ml 570 ml Balance -1095 ml 630 ml Intake Oral 355 ml 300 ml IV Total 900 ml Output Urine Total 1325 ml 450 ml Other 125 ml 120 ml # Voids 3 Laboratory Tests 08/20/20 18:35: POC Whole Blood Glucose 113H 08/21/20 00:16: POC Whole Blood Glucose 106 08/21/20 05:05: White Blood Count 9.7, Red Blood Count 2.76L, Hemoglobin 8.7L, Hematocrit 27.2L, Mean Corpuscular Volume 98, Mean Corpuscular Hemoglobin 31.6H, Mean Corpuscular Hemoglobin Concent 32.1, Red Cell Distribution Width 14.2, Platelet Count 454H, Mean Platelet Volume 7.2, Neutrophils (%) (Auto) 79.5H, Lymphocytes (%) (Auto) 11.5L, Monocytes (%) (Auto) 8.3, Eosinophils (%) (Auto) 0.1, Basophils (%) (Auto) 0.7, Sodium Level 138, Potassium Level 4.0, Chloride Level 105, Carbon Dioxide Level 26, Anion Gap 8, Blood Urea Nitrogen 21H, Creatinine 1.1, Estimat Glomerular Filtration Rate 49.3, Glucose Level 96, Calcium Level 8.4L, Phosphorus Level 3.8, Magnesium Level 1.8, Total Bilirubin 0.6, Aspartate Amino Transf (AST/SGOT) 26, Alanine Aminotransferase (ALT/SGPT) 27, Alkaline Phosphatase 392H, Total Protein 5.8L, Albumin 1.8L, Globulin 4.0, Albumin/Globulin Ratio 0.4L, Vancomycin Level Trough 7.0 08/21/20 05:06: POC Whole Blood Glucose 92 08/21/20 12:16: POC Whole Blood Glucose 106 Height (Feet): 5 Height (Inches): 5.00 Weight (Pounds): 126 General Appearance: no apparent distress EENT: normal ENT inspection Neck: supple Cardiovascular: normal rate Respiratory/Chest: decreased breath sounds Abdomen: hypoactive bowel sounds Extremities: non-tender Assessment/Plan Assessment/Plan: leakage from ostomy site, better poor oral intake on TPN dietitian in put appreciated ABX per id fu surg recs Adrian Morrison MD Aug 21, 2020 12:27
--- NOTE | 2020-08-21 12:28 | NUR ---
DISCHARGE PLANNING PER RN DR NAGI STILES PLANS TO DC PATIENT POSSIBLE MID WEEK OF 08/24/20 WITH PLAN FOR DC TO SNF. PATIENT HAS BEEN REFERRED TO [facility] P: [phone] F: [phone]
--- NOTE | 2020-08-21 12:58 | NUR ---
CASE MANAGEMENT:REVIEW SI;ENTEROSTOMY MALFUNCTION. PROLONGED ILEUS. 98.2 99 19 116/67 95% ON RA H/H 8.7/27.2 BUN 21 ALP 392 ALB 1.8 IS;ZOSYN IV Q8 VANCOMYCIN IV Q12 DIFLUCAN PO QD TPN IV Q24 PROTONIX IV QD WELLBUTRIN PO BID MED SURG STATUS DCP;FROM HOME PLAN; CONTINUE IV ABX CONTINUE TPN DC PLANNING TO SNF
--- NOTE | 2020-08-21 15:08 | Infectious Diseases Prog Note ---
Assessment/Plan Assessment/Plan ASSESSMENT AND PLAN: 1. fevers, leukocytosis, ? sepsis, ileus vs bowel obstruction, pelvic fluid collection but aspiration culture negative coag neg staph blood cultures - 3/4 bottles, ? line infection, difficult IV access ? aspiration pna/hcap on chest x-ray - zosyn - day # 7 - vancomycin - day # 4 - management per Dr. Meadows - d/w Dr. Meadows - difficult iv access - keep line for now, surveillance blood cultures ordered - d/w RN and patient - monitor labs, monitor chest x-ray - clinically improving - d/w Dr. Meadows 2. 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 3. The patient has a history of intra-abdominal abscess and bowel obstruction in the past, status post surgery and drainage. 4. The patient has history of ulcerative colitis. 5. History of proctocolectomy. 6. History of multiple abdominal operations. 7. History of parathyroid adenoma resection. 8. History of spinal surgery. 9. Continue management per Dr. Meadows. 10. Past medical history is noted. 11. Allergies to adhesive tape and cefepime. The cefepime allergy was thrombocytopenia, not a true allergy, more of a side effect. Case was discussed with pharmacy and it should be safe to give Zosyn since the patient was on Unasyn. 12. Social history is negative. 13. Family history is noncontributory. 14. MAR is noted. 15. Case was discussed with RN. 16. Continue treatment per primary and consultants Subjective Constitutional: Denies: fever HEENT: Denies: congestion Respiratory: Denies: shortness of breath Cardiovascular: Denies: chest pain Gastrointestinal/Abdominal: Denies: nausea, vomiting Genitourinary: Reports: other - no decker Neurologic: Denies: headache Psychiatric: Denies: depression Skin: Denies: rash Hematologic: Denies: bleeding Musculoskeletal: Denies: pain Allergies: Coded Allergies: CEFEPIME (Verified Adverse Reaction, Severe, 08/05/20) causes low platlets ADHESIVE TAPE (Verified Adverse Reaction, Intermediate, Rash, 08/27/19) CLEAR TAPE Objective Last 24 Hour Vital Signs Date Time Temp Pulse Resp B/P (MAP) Pulse Ox O2 Delivery O2 Flow Rate FiO2 08/21/20 12:00 98.2 99 17 116/67 (83) 96 99 08/21/20 09:00 Room Air 08/21/20 08:00 98.2 98 17 113/62 (79) 96 08/21/20 04:00 97.8 89 18 115/62 (79) 96 08/21/20 00:00 98.0 97 19 112/63 (79) 95 08/20/20 21:00 Room Air 08/20/20 20:00 98.3 101 19 119/65 (83) 97 08/20/20 16:00 97.8 95 19 123/77 (92) 97 Height (Feet): 5 Height (Inches): 5.00 Weight (Pounds): 126 General Appearance: no acute distress HEENT: normocephalic, atraumatic, anicteric Respiratory/Chest: no accessory muscle use, respiratory distress, crackles/rales, rhonchi - bilaterally Cardiovascular: normal peripheral pulses, normal rate, regular rhythm, no gallop/murmur, no JVD Abdomen: normal bowel sounds, soft, non tender, no organomegaly, non distended Genitourinary: other - no decker Extremities: no cyanosis Skin: no rash Neurologic/Psychiatric: medical writer II-XII grossly normal, alert, responsive Lymphatic: no neck adenopathy Musculoskeletal: no effusion CT abdomen and pelvis - 08/14/20 - Impression: Postsurgical changes, as described 8.4 x 2 cm gas and fluid collection in the anterior pelvis, may represent a routine postsurgical collection could also be infected. Distended small bowel. Probably secondary to postoperative ileus but distal small bowel obstruction not excludable. Fluid within the vaginal vault. Significance uncertain. Gas within the bladder, likely related to recent instrumentation. Bilateral moderate pleural effusions. Resultant passive atelectasis at both lung bases. Degenerative spondylosis Findings discussed by phone with Dr. Meadosw at the time of interpretation Chest x-ray - 08/14/20 - COMPARISON: Chest radiograph August 11, 2020 FINDINGS/IMPRESSION: Enteric feeding tube terminates in the stomach. Right IJ catheter terminates in the superior vena cava. Mild vascular congestion and trace bilateral pleural effusions. The size of the left pleural effusion has improved when compared to August 11, 2020. No pneumothorax. Cardiomegaly. Chest x-ray - 08/19/20 - Procedure: XRAY Chest 1v Procedure: XRAY Chest 1v Reason for study: Reason For Exam: COUGH Comparison films: 08/16/2020. FINDINGS: Right central venous catheter remains in place. Vascularity is mildly prominent. There is slight increase of right infrahilar densities likely developing infiltrates. Cardiac and mediastinal silhouette are within normal limits. Small effusions noted. The bony thorax appear unremarkable. IMPRESSION: Slight increased right infrahilar infiltrate and bilateral small effusions. Microbiology Date/Time Source Procedure Growth Status 08/19/20 22:10 Sputum Induced Gram Stain - Final Resulted 08/19/20 22:10 Sputum Culture - Preliminary Gram Negative Elver Resulted 08/18/20 05:10 Blood Blood Culture - Preliminary NO GROWTH AFTER 48 HOURS Resulted 08/14/20 15:15 Abdominal Fluid Gram Stain - Final Complete 08/14/20 15:15 Abdominal Fluid Body Fluid Culture - Final NO GROWTH Complete 08/11/20 08:40 Indwelling Cath Urine Culture - Final NO GROWTH AFTER 48 HOURS Complete 07/29/20 12:45 Stool Clostridium difficile Toxin Assay - Final Complete Microbiology Date/Time Source Procedure Growth Status 08/19/20 22:10 Sputum Induced Gram Stain - Final Resulted 08/19/20 22:10 Sputum Culture - Preliminary Gram Negative Elver Resulted Laboratory Tests Test 08/20/20 18:35 08/21/20 00:16 08/21/20 05:05 08/21/20 05:06 POC Whole Blood Glucose 113 MG/DL (74-106) H 106 MG/DL (74-106) 92 MG/DL (74-106) White Blood Count 9.7 K/UL (4.8-10.8) Red Blood Count 2.76 M/UL (4.20-5.40) L Hemoglobin 8.7 G/DL (12.0-16.0) L Hematocrit 27.2 % (37.0-47.0) L Mean Corpuscular Volume 98 FL (80-99) Mean Corpuscular Hemoglobin 31.6 PG (27.0-31.0) H Mean Corpuscular Hemoglobin Concent 32.1 G/DL (32.0-36.0) Red Cell Distribution Width 14.2 % (11.6-14.8) Platelet Count 454 K/UL (150-450) H Mean Platelet Volume 7.2 FL (6.5-10.1) Neutrophils (%) (Auto) 79.5 % (45.0-75.0) H Lymphocytes (%) (Auto) 11.5 % (20.0-45.0) L Monocytes (%) (Auto) 8.3 % (1.0-10.0) Eosinophils (%) (Auto) 0.1 % (0.0-3.0) Basophils (%) (Auto) 0.7 % (0.0-2.0) Sodium Level 138 MMOL/L (136-145) Potassium Level 4.0 MMOL/L (3.5-5.1) Chloride Level 105 MMOL/L (98-107) Carbon Dioxide Level 26 MMOL/L (21-32) Anion Gap 8 mmol/L (5-15) Blood Urea Nitrogen 21 mg/dL (7-18) H Creatinine 1.1 MG/DL (0.55-1.30) Estimat Glomerular Filtration Rate 49.3 mL/min (>60) Glucose Level 96 MG/DL (74-106) Calcium Level 8.4 MG/DL (8.5-10.1) L Phosphorus Level 3.8 MG/DL (2.5-4.9) Magnesium Level 1.8 MG/DL (1.8-2.4) Total Bilirubin 0.6 MG/DL (0.2-1.0) Aspartate Amino Transf (AST/SGOT) 26 U/L (15-37) Alanine Aminotransferase (ALT/SGPT) 27 U/L (12-78) Alkaline Phosphatase 392 U/L (46-116) H Total Protein 5.8 G/DL (6.4-8.2) L Albumin 1.8 G/DL (3.4-5.0) L Globulin 4.0 g/dL Albumin/Globulin Ratio 0.4 (1.0-2.7) L Vancomycin Level Trough 7.0 ug/mL (5.0-12.0) Test 08/21/20 12:16 POC Whole Blood Glucose 106 MG/DL (74-106) Current Medications Medications (Trade) Dose Ordered Sig/Jori Route PRN Reason Start Time Stop Time Status Last Admin Dose Admin Acetaminophen (Tylenol) 650 mg Q4H PRN ORAL Mild Pain or temp over 100.2 08/16/20 10:00 09/14/20 10:14 08/17/20 02:13 Bupropion HCl (Wellbutrin SR) 200 mg TWICE A DAY ORAL 08/12/20 09:00 09/11/20 08:59 08/21/20 08:18 Chlorhexidine Gluconate (Kathryn-Hex 2%) 1 applic DAILY@2000 TOPIC 08/07/20 20:15 11/05/20 20:14 08/20/20 20:33 Citalopram Hydrobromide (CeleXA) 10 mg DAILY ORAL 08/16/20 09:00 09/15/20 08:59 08/21/20 08:18 Dextrose 1,000 ml @ 0 mls/hr Q24H PRN IV PN interrupted or unavailable 08/05/20 20:00 09/04/20 19:59 Dextrose (Dextrose 50%) 25 ml Q30M PRN IV Hypoglycemia 08/05/20 20:00 11/03/20 19:59 Dextrose (Dextrose 50%) 50 ml Q30M PRN IV Hypoglycemia 08/05/20 20:00 11/03/20 19:59 Dicyclomine HCl (Bentyl) 10 mg QIDPRN PRN ORAL Abdominal cramps 08/17/20 09:30 11/15/20 09:29 Diphenhydramine HCl (Benadryl) 50 mg Q4H PRN IVP Itching/Pruritis 08/13/20 09:15 09/12/20 09:14 Fat Emulsion Intravenous 216 ml/Amino Acids/ Electrolytes/ Dextrose 1,800 ml @ 75 mls/hr Q24H IV 08/05/20 20:00 09/04/20 19:59 08/20/20 20:37 Fluconazole (Diflucan) 100 mg DAILY ORAL 08/19/20 09:00 08/26/20 08:59 08/21/20 08:18 Folic Acid (Folate) 1 mg DAILY ORAL 08/16/20 09:00 09/15/20 08:59 08/21/20 08:18 Hydromorphone HCl (Dilaudid) 1 mg Q3H PRN SUBQ Severe Breakthru Pain (>7) 08/21/20 11:39 08/28/20 11:38 Insulin Aspart (NovoLOG) Q6HR SUBQ 08/06/20 00:00 11/04/20 00:00 08/06/20 17:38 Lorazepam (Ativan) 1 mg Q4H PRN SL Muscle Spasm 08/18/20 13:50 08/25/20 13:49 Meloxicam (Mobic) 15 mg DAILY ORAL 08/16/20 09:00 09/15/20 08:59 08/21/20 08:18 Naloxone HCl (Narcan) 0.1 mg Q1M PRN IVP RR<10/min OR SBP<90 mmHg 08/08/20 09:10 11/06/20 09:09 Nystatin (Nystatin) 5 ml QID ORAL 08/18/20 14:00 08/25/20 13:59 08/21/20 12:17 Ondansetron HCl (Zofran) 4 mg Q4H PRN IVP Nausea & Vomiting 08/06/20 15:00 09/05/20 14:59 08/14/20 10:09 Ondansetron HCl (Zofran) 4 mg Q4H PRN ORAL Nausea & Vomiting 08/16/20 08:45 09/14/20 10:14 Oxycodone/ Acetaminophen (Percocet 5-325) 1 tab Q4H PRN ORAL SEVERE PAIN 08/21/20 11:39 08/28/20 11:38 Pantoprazole (Protonix) 40 mg DAILY IVP 08/07/20 09:00 09/06/20 08:59 08/21/20 08:18 Patient Own Medication (Patient's Own Med) 1 ea DAILY ORAL 08/15/20 09:00 09/14/20 08:59 08/21/20 08:19 Phytonadione (Vitamin K) 10 mg ONCE A WEEK SUBQ 08/05/20 10:00 11/03/20 09:59 08/19/20 11:10 Piperacillin Sod/ Tazobactam Sod 3.375 gm/Dextrose 110 ml @ 27.5 mls/hr Q8H IVPB 08/21/20 09:00 08/28/20 08:59 08/21/20 09:52 Prochlorperazine (Compazine) 10 mg Q6H PRN IVP anxiety 08/15/20 21:45 09/14/20 21:44 08/16/20 21:54 Simethicone (Mylicon) 80 mg QIDPRN PRN NG Abdominal cramps, gas 08/15/20 10:15 11/13/20 10:14 08/20/20 18:34 Trazodone HCl (Desyrel) 200 mg BEDTIME ORAL 08/16/20 21:00 09/14/20 20:59 08/21/20 00:13 Vancomycin HCl (Vanco pharmacy to dose) 1 ea DAILY PRN MISC Per rx protocol 08/18/20 04:30 09/17/20 04:29 Vancomycin HCl 750 mg/Sodium Chloride 275 ml @ 183.333 mls/hr Q12H IVPB 08/21/20 08:00 08/26/20 07:59 08/21/20 08:17 Osmin Bermudez MD Aug 21, 2020 15:08
[2020-08-21] MEDS: oxyCODONE HCL/Acetaminophen 5/325mg ORAL PRN ×2 (15:11→20:28)
--- NOTE | 2020-08-21 15:13 | Diagnostic Imaging Report ---
Procedure: XRAY Chest 1v Reason for study: Shortness of breath. Comparison films: 08/19/2020. FINDINGS: Right central venous catheter remains in place. Right infrahilar infiltrate is slightly improved. Cardiac and mediastinal silhouette are within normal limits. Small left effusion unchanged. The bony thorax appear unremarkable. IMPRESSION: Right infrahilar infiltrate slightly improved.
[2020-08-21 16:00] VITALS: BP 127/78
--- NOTE | 2020-08-21 18:46 | NUR ---
NURSE NOTES: Pt remained stable during day shift, had better PO intake , pt was able to get up with physical therapy X1. Pt encouraged to use bed side commode but pt hesitant. Pt stated she is afraid of falling because her knees have a tendency to give up. ileostomy bag stayed intact , ileo output is a little thick will endorse to hcc coders to monitor . Pt c/o of pain X1 during day shift , pain medication given and was effective. True ileo 150 Urine output 1800 Addendum: 08/21/20 at 1909 by Jason Herrera RN True ileo 300
--- NOTE | 2020-08-21 19:00 | Consultation ---
DATE OF CONSULTATION: 08/21/2020 PULMONARY CONSULTATION CONSULTING PHYSICIAN: Shree Pope MD HISTORY OF PRESENT ILLNESS: This is a 69-year-old female, who has been admitted to the hospital approximately a month ago with difficulty with Kock pouch intubation. She has a longstanding history of ulcerative colitis and has previously undergone proctocolectomy and Kock pouch. This has also recently been revised and recently she has had a takedown and placement of an ileostomy. Postoperatively, the patient has been noted to have elevated fevers and white count. ID has been following the patient and broad-spectrum antibiotics have been initiated. Most recently, the patient underwent a chest x-ray, which showed an increasing right infiltrate and small bilateral effusions. The effusions have been present in the past as well and have minimally changed. CT discussed above. Per review of her vital signs, the patient has now been afebrile for 24 hours and is saturating well on room air. The last documented fever was 99.1 on 08/18/2020. Her most recent white cell count is 9.7, previously 11.9. MEDICATIONS: Currently her medications include Tylenol, Wellbutrin, Celexa, Bentyl, Diflucan, folic acid, hydromorphone, insulin sliding scale, Ativan, Mobic, nystatin, Zofran, Percocet, Protonix, vitamin K, Zosyn, trazodone, and vancomycin. REVIEW OF SYSTEMS: Denies any headaches, hematemesis, melena, hematochezia, night sweats, or weight loss. PAST MEDICAL HISTORY: As discussed above. Notable for ulcerative colitis and previous abdominal surgeries. She also has history of anxiety. ALLERGIES: To adhesive tape. SOCIAL HISTORY: Denies alcohol or tobacco usage. PHYSICAL EXAMINATION: GENERAL: Reveals a 69-year-old female. HEENT: Unremarkable. LUNGS: Clear breath sounds bilaterally. ABDOMEN: Soft. EXTREMITIES: There is no edema. SKIN: Ileostomy site is clean. LABORATORY TESTING: Discussed above. IMPRESSION: 1. Postoperative fever, now resolved. 2. Status post failed Kock pouch. 3. Status post ileostomy placement. 4. Anxiety. 5. Ulcerative colitis. DISCUSSION: Currently, she is saturating well on nasal oxygen/room air. Antibiotics per Dr. Bermudez. Fever had resolved. Clinically, she is feeling better. I will continue monitor. Hold off on any interventions. We will follow carefully. Shree Pope M.D. DR: DEEP JOB#: [id number] CC: MICHELLE
--- NOTE | 2020-08-21 19:19 | NUR ---
NURSE HAND-OFF: Important Events on Shift: Patient Status: stable Diet: BCIR l;ow residual Pending Orders: Pending Results/Labs: Pending MD notification: Latest Vital Signs: Temperature 98.2 , Pulse 99 , B/P 127 /78 , Respiratory Rate 17 , O2 SAT 96 , Room Air, O2 Flow Rate 3.0 . Vital Sign Comment: Latest Henry Fall Score: 60 Fall Risk: High Risk Safety Measures: Call light Within Reach, Bed Alarm Zone 1, Side Rails Side Rails x2, Bed position Low and Locked. Fall Precautions: Door Sign Patient Fall Education Report given to . Addendum: 08/21/20 at 1920 by Jason Herrera RN Report given to Elijah TRAMMELL
--- NOTE | 2020-08-21 19:30 | NUR ---
NURSE NOTES: Receive a report from VALERI Gomez. Round is done. Pt is awake and alert. Saying she is feeling better today. Noted watery output via [place] ileostomy bag. Emptied out 100ml green watery output with gas. Pt says Will provide Simethicone 1 t po prn as ordered. No leak around ileostomy bag. Noted frequency and using bedpan. TPN is running via C-line and site is intact. Call light within reach. Will continue to monitor.
[2020-08-21 20:00] VITALS: BP 124/69
[2020-08-21] MEDS: Simethicone 80mg tab NG PRN (20:04)
[2020-08-21] MEDS: Fat Emulsion Iv 20% 216 ML in Tpn 1,584 ML IV SCH (20:31)
[2020-08-21] MEDS: Dyna-Hex 2% Top Sol 2oz TOPIC SCH (20:32)
--- NOTE | 2020-08-21 21:00 | NUR ---
NURSE NOTES: So far emptied out two times from Lissette ileostomy bag and voids 3x. Decreased gas discomfort. Provide sponge bath and new gown with bedding. Will continue to monitor.
[2020-08-22] VITALS: BP 106/80
[2020-08-22] MEDS: Piperacillin/Tazobactam 3.375 GM in D5W 110 ML IVPB SCH ×3 (00:37→18:07)
[2020-08-22 04:00] VITALS: BP 127/74
[2020-08-22] MEDS: oxyCODONE HCL/Acetaminophen 5/325mg ORAL PRN ×2 (04:59→18:20)
[2020-08-22] MEDS: NovoLOG Insulin Flexpen SUBQ SCH ×4 (05:50→18:00)
--- NOTE | 2020-08-22 06:00 | NUR ---
NURSE NOTES: Pain is tolerating. No leaking noted around Lissette ileostomy appliance. No nausea noted. But frequency overnight 11x. No dysuria noted and clear yellow urine with odor. Provide perineal care after urination. Had two times of urine spills on the pads during urination. Afebrile. Will continue to monitor.
[2020-08-22 06:26] LABS: BASOPHILS % (AUTO) 0.8 % (0.0-2.0); HEMATOCRIT 32.9 % (37.0-47.0); HEMOGLOBIN 10.6 G/DL (12.0-16.0); LYMPHOCYTES % (AUTO) 13.4 % (20.0-45.0); MEAN CORPUSCULAR VOLUME 98 FL (80-99); MONOCYTES % (AUTO) 6.8 % (1.0-10.0); NEUTROPHILS % (AUTO) 78.9 % (45.0-75.0); PLATELET COUNT 498 K/UL (150-450); RED BLOOD COUNT 3.36 M/UL (4.20-5.40); RED CELL DISTRIBUTION WIDTH 14.3 % (11.6-14.8)
--- NOTE | 2020-08-22 06:41 | NUR ---
NURSE HAND-OFF: Important Events on Shift: pain medication x2, Simethicone 1x, frequency 11x. Patient Status: stable Diet: BCIR low residue diet 12hr output Urine: 1375+spills 2x Lissette ileostomy: 325ml with gas Pending Orders: [] Pending Results/Labs:CBC, CMP, Mg, Ph Pending MD notification:[] Latest Vital Signs: Temperature 98.4 , Pulse 98 , B/P 127 /74 , Respiratory Rate 18 , O2 SAT 97 , Room Air, O2 Flow Rate 3.0 . Vital Sign Comment: [] Latest Henry Fall Score: 60 Fall Risk: High Risk Safety Measures: Call light Within Reach, Bed Alarm Zone 1, Side Rails Side Rails x2, Bed position Low and Locked. Fall Precautions: Door Sign Patient Fall Education
[2020-08-22 06:43] LABS: ALBUMIN 2.1 G/DL (3.4-5.0); ALBUMIN/GLOBULIN RATIO 0.5 (1.0-2.7); BILIRUBIN,TOTAL 0.6 MG/DL (0.2-1.0); CALCIUM 8.8 MG/DL (8.5-10.1); CREATININE 1.1 MG/DL (0.55-1.30); PHOSPHORUS 3.3 MG/DL (2.5-4.9); POTASSIUM 4.3 MMOL/L (3.5-5.1)
--- NOTE | 2020-08-22 07:30 | NUR ---
HAND-OFF: Report given to VALERI Santiago. Round is done.
--- NOTE | 2020-08-22 07:39 | NUR ---
NURSE NOTES: Patient is in bed awake and able to verbalize needs. Stable. Denies pain or SOB. Patient encouraged to get out of bed and use bedside commode, patient yelled at RN and stated, "leave, i will not be ordered around." RN gave patient teaching regarding risks of staying in bed, patient is hostile and rude to staff and stated she does not care. Reinforcement needed. Central line running TPN and NS TKO. Patient is in bed in locked and lowest position with call light within reach. All safety measures provided.
[2020-08-22 08:00] VITALS: BP 127/68
--- NOTE | 2020-08-22 08:10 | NUR ---
NURSE NOTES: Report received from Pamela RN, rounds made. Patient resting, AOx4 calm on RA. Respirations even/unlabored. Abdominal pain 4/10, will medicate as ordered. Lissette ileostomy appliance in place, brown liquid noted in collection bag. Voids in bedpan. RUC central line dressing CDI, TPN at 75 ml/hr. Call light in reach, bed in lowest position, will continue to monitor.
[2020-08-22] MEDS: Pantoprazole Inj IVP SCH (08:45)
[2020-08-22] MEDS: Vancomycin 750mg/NS 275ml IVPB SCH ×2 (08:46)
[2020-08-22] MEDS: BuPROPion SR 100mg tab ORAL SCH ×2 (08:48→18:06)
[2020-08-22] MEDS: Nystatin Susp 500,000 units/5ml ORAL SCH ×4 (08:48→21:07)
[2020-08-22] MEDS: Citalopram Hydrobromide 10mg Tab ORAL SCH (08:48)
[2020-08-22] MEDS: Simethicone 80mg tab NG PRN ×2 (08:48→15:26)
[2020-08-22] MEDS: Meloxicam 15 MG TAB ORAL SCH (08:48)
[2020-08-22] MEDS: Fluconazole 100mg tab ORAL SCH (08:49)
--- NOTE | 2020-08-22 09:32 | General Progress Note ---
Progress Note Progress Note AVSS Slowly improving. No pulmonary symptoms although sputum C&S - Klebsiella WBC remaining normal 9000 Hgb up 10.6 BUN21 Cr 1.1 stable Albumin up 2.1 Abdomen soft, flat, stoma appliance without leaking Urine 3175 Ileostomy 625 Eating better Imp: slowly improving cough resolved despite + sputum culture Plan; antibiotics per ID remove lu with next appliance change decrease TPN from 75cc/hour to 50cc/hour total f/u labs Lalo Meadows MD Aug 22, 2020 09:32
[2020-08-22 12:00] VITALS: BP 122/72
--- NOTE | 2020-08-22 12:09 | Pulmonology Progress Note ---
Subjective ROS Limited/Unobtainable: Yes Interval Events: None new Constitutional: Denies: fever HEENT: Repors: no symptoms Respiratory: Reports: no symptoms Cardiovascular: Reports: no symptoms Gastrointestinal/Abdominal: Denies: nausea, vomiting Genitourinary: Reports: no symptoms Psychiatric: Denies: depression Skin: Denies: rash Musculoskeletal: Denies: pain Allergies: Coded Allergies: CEFEPIME (Verified Adverse Reaction, Severe, 08/05/20) causes low platlets ADHESIVE TAPE (Verified Adverse Reaction, Intermediate, Rash, 08/27/19) CLEAR TAPE Objective Last 24 Hour Vital Signs Date Time Temp Pulse Resp B/P (MAP) Pulse Ox O2 Delivery O2 Flow Rate FiO2 08/22/20 08:00 98.0 95 18 127/68 (87) 98 08/22/20 04:00 98.4 98 18 127/74 (91) 97 98 08/22/20 00:00 98.0 94 18 106/80 (89) 95 94 08/21/20 21:00 Room Air 08/21/20 20:00 98.2 96 18 124/69 (87) 96 96 08/21/20 16:00 98.2 100 17 127/78 (94) 96 99 Intake and Output 08/21/20 08/22/20 19:00 07:00 Intake Total 811 ml 1209 ml Output Total 1950 ml 1700 ml Balance -1139 ml -491 ml Intake Oral 811 ml 354 ml IV Total 855 ml Output Urine Total 1800 ml 1375 ml Other 150 ml 325 ml # Voids 11 General Appearance: no acute distress HEENT: normocephalic Respiratory: chest wall non-tender, lungs clear Cardiovascular: normal peripheral pulses Abdomen: normal bowel sounds Microbiology Date/Time Source Procedure Growth Status 08/19/20 22:10 Sputum Induced Gram Stain - Final Complete 08/19/20 22:10 Sputum Culture - Final Klebsiella Pneumoniae Usual Respiratory Annmarie Complete Laboratory Tests 08/21/20 12:16: POC Whole Blood Glucose 106 08/21/20 17:13: POC Whole Blood Glucose 108H 08/21/20 23:17: POC Whole Blood Glucose 97 08/22/20 05:20: White Blood Count 9.0, Red Blood Count 3.36L, Hemoglobin 10.6L, Hematocrit 32.9L , Mean Corpuscular Volume 98, Mean Corpuscular Hemoglobin 31.5H, Mean Corpuscular Hemoglobin Concent 32.1, Red Cell Distribution Width 14.3, Platelet Count 498H, Mean Platelet Volume 6.7, Neutrophils (%) (Auto) 78.9H, Lymphocytes (%) (Auto) 13.4L, Monocytes (%) (Auto) 6.8, Eosinophils (%) (Auto) 0.0, Basophils (%) (Auto) 0.8, Sodium Level 138, Potassium Level 4.3, Chloride Level 105, Carbon Dioxide Level 26, Anion Gap 7, Blood Urea Nitrogen 20H, Creatinine 1.1, Estimat Glomerular Filtration Rate 49.3, Glucose Level 93, Calcium Level 8.8, Phosphorus Level 3.3, Magnesium Level 1.9, Total Bilirubin 0.6, Aspartate Amino Transf (AST/SGOT) 20, Alanine Aminotransferase (ALT/SGPT) 28, Alkaline Ph osphatase 403H, Total Protein 6.5, Albumin 2.1L, Globulin 4.4, Albumin/Globulin Ratio 0.5L 08/22/20 05:27: POC Whole Blood Glucose 99 Current Medications Medications (Trade) Dose Ordered Sig/Jori Route PRN Reason Start Time Stop Time Status Last Admin Dose Admin Acetaminophen (Tylenol) 650 mg Q4H PRN ORAL Mild Pain or temp over 100.2 08/16/20 10:00 09/14/20 10:14 08/17/20 02:13 Bupropion HCl (Wellbutrin SR) 200 mg TWICE A DAY ORAL 08/12/20 09:00 09/11/20 08:59 08/22/20 08:48 Chlorhexidine Gluconate (Kathryn-Hex 2%) 1 applic DAILY@2000 TOPIC 08/07/20 20:15 11/05/20 20:14 08/21/20 20:32 Citalopram Hydrobromide (CeleXA) 10 mg DAILY ORAL 08/16/20 09:00 09/15/20 08:59 08/22/20 08:48 Dextrose 1,000 ml @ 0 mls/hr Q24H PRN IV PN interrupted or unavailable 08/05/20 20:00 09/04/20 19:59 Dextrose (Dextrose 50%) 25 ml Q30M PRN IV Hypoglycemia 08/05/20 20:00 11/03/20 19:59 Dextrose (Dextrose 50%) 50 ml Q30M PRN IV Hypoglycemia 08/05/20 20:00 11/03/20 19:59 Dicyclomine HCl (Bentyl) 10 mg QIDPRN PRN ORAL Abdominal cramps 08/17/20 09:30 11/15/20 09:29 Diphenhydramine HCl (Benadryl) 50 mg Q4H PRN IVP Itching/Pruritis 08/13/20 09:15 09/12/20 09:14 Fat Emulsion Intravenous 144 ml/Amino Acids/ Electrolytes/ Dextrose 1,200 ml @ 50 mls/hr Q24H IV 08/22/20 20:00 09/21/20 19:59 Fat Emulsion Intravenous 216 ml/Amino Acids/ Electrolytes/ Dextrose 1,800 ml @ 75 mls/hr Q24H IV 08/05/20 20:00 08/22/20 19:59 08/21/20 20:31 Fluconazole (Diflucan) 100 mg DAILY ORAL 08/19/20 09:00 08/26/20 08:59 08/22/20 08:49 Folic Acid (Folate) 1 mg DAILY ORAL 08/16/20 09:00 09/15/20 08:59 08/22/20 08:48 Hydromorphone HCl (Dilaudid) 1 mg Q3H PRN SUBQ Severe Breakthru Pain (>7) 08/21/20 11:39 08/28/20 11:38 Insulin Aspart (NovoLOG) Q6HR SUBQ 08/06/20 00:00 11/04/20 00:00 08/06/20 17:38 Lorazepam (Ativan) 1 mg Q4H PRN SL Muscle Spasm 08/18/20 13:50 08/25/20 13:49 Meloxicam (Mobic) 15 mg DAILY ORAL 08/16/20 09:00 09/15/20 08:59 08/22/20 08:48 Naloxone HCl (Narcan) 0.1 mg Q1M PRN IVP RR<10/min OR SBP<90 mmHg 08/08/20 09:10 11/06/20 09:09 Nystatin (Nystatin) 5 ml QID ORAL 08/18/20 14:00 08/25/20 13:59 08/22/20 08:48 Ondansetron HCl (Zofran) 4 mg Q4H PRN IVP Nausea & Vomiting 08/06/20 15:00 09/05/20 14:59 08/14/20 10:09 Ondansetron HCl (Zofran) 4 mg Q4H PRN ORAL Nausea & Vomiting 08/16/20 08:45 09/14/20 10:14 Oxycodone/ Acetaminophen (Percocet 5-325) 1 tab Q4H PRN ORAL SEVERE PAIN 08/21/20 11:39 08/28/20 11:38 08/22/20 04:59 Pantoprazole (Protonix) 40 mg DAILY IVP 08/07/20 09:00 09/06/20 08:59 08/22/20 08:45 Patient Own Medication (Patient's Own Med) 1 ea DAILY ORAL 08/15/20 09:00 09/14/20 08:59 08/22/20 08:51 Phytonadione (Vitamin K) 10 mg ONCE A WEEK SUBQ 08/05/20 10:00 11/03/20 09:59 08/19/20 11:10 Piperacillin Sod/ Tazobactam Sod 3.375 gm/Dextrose 110 ml @ 27.5 mls/hr Q8H IVPB 08/21/20 09:00 08/28/20 08:59 08/22/20 10:46 Prochlorperazine (Compazine) 10 mg Q6H PRN IVP anxiety 08/15/20 21:45 09/14/20 21:44 08/16/20 21:54 Simethicone (Mylicon) 80 mg QIDPRN PRN NG Abdominal cramps, gas 08/15/20 10:15 11/13/20 10:14 08/22/20 08:48 Trazodone HCl (Desyrel) 200 mg BEDTIME ORAL 08/16/20 21:00 09/14/20 20:59 08/21/20 22:53 Vancomycin HCl (Vanco pharmacy to dose) 1 ea DAILY PRN MISC Per rx protocol 08/18/20 04:30 09/17/20 04:29 Vancomycin HCl 750 mg/Sodium Chloride 275 ml @ 183.333 mls/hr Q12H IVPB 08/21/20 08:00 08/26/20 07:59 08/22/20 08:46 Assessment/Plan Assessment/Plan IMPRESSION: 1. Postoperative fever, now resolved. 2. Status post failed Kock pouch. 3. Status post ileostomy placement. 4. Anxiety. 5. Ulcerative colitis. DISCUSSION: Currently, she is saturating well on nasal oxygen/room air. Antibiotics per Dr. Bermudez. Fever has resolved. Clinically, she is feeling better. I will continue monitor. Hold off on any interventions. I will follow carefully. Shree Pope M.D. Shree Pope MD Aug 22, 2020 12:09
[2020-08-22] MEDS ORDERED: NS 275ml ONE (15:09)
[2020-08-22 16:30] VITALS: BP 121/64
--- NOTE | 2020-08-22 17:30 | NUR ---
NURSE NOTES: Michael wound nurse removed all lu, provided skin care and changed Lissette ileostomy appliance completely at 1530. Reassessed, remains intact, no leakage noted.
--- NOTE | 2020-08-22 19:17 | NUR ---
NURSE HAND-OFF: Important Events on Shift:All lu removed and Lissette Ileostomy appliance changed with Michael wound nurse Patient Status: stable Diet: BCIR Outputs: Urine: 1150 ml Lissette: 250 ml Pending Orders: TPN rate decrease 50 ml/hr tonight, use Purewik at bedtime, Vanco trough done Pending Results/Labs:CBC BMP 08/23 Pending MD notification:none Latest Vital Signs: Temperature 98.5 , Pulse 94 , B/P 121 /64 , Respiratory Rate 18 , O2 SAT 95 , Room Air, O2 Flow Rate 3.0 . Vital Sign Comment: none Latest Henry Fall Score: 60 Fall Risk: High Risk Safety Measures: Call light Within Reach, Bed Alarm Zone 1, Side Rails Side Rails x2, Bed position Low and Locked. Fall Precautions: Door Sign Patient Fall Education Report given to Rosmery TRAMMELL. Addendum: 08/22/20 at 2002 by Zulema Potter RN Ambulated in halls with PT.
[2020-08-22 20:00] VITALS: BP 122/69
[2020-08-22] MEDS: Dyna-Hex 2% Top Sol 2oz TOPIC SCH (21:07)
[2020-08-22] MEDS: Vancomycin 1gm/D5W 275ml IVPB SCH ×2 (21:08)
[2020-08-22] MEDS: TraZODone 100mg tab ORAL SCH (21:08)
[2020-08-22] MEDS: TPN IV SCH (21:09)
[2020-08-22] MEDS: FAT EMULSION 20% IV SCH (21:09)
--- NOTE | 2020-08-22 21:30 | NUR ---
NURSES NOTE: Pt in bed, A/Ox4, denies pain currently. No outward s/s of distress noted. Breathing pattern is even and unlabored on RA. Ileo, RLQ in place, appliance changed during day shift. Tight seal, no leaks noted. Bed leiva at bedside. Purewick to be attempted tonight for urination. R chest subclavian central line in place, dressing changed 08/18. No redness noted. All due medications will be administered. Bed at lowest level. Call light within reach. Patient will continue to be monitored.
[2020-08-23] MEDS: Piperacillin/Tazobactam 3.375 GM in D5W 110 ML IVPB SCH ×3 (00:43→17:35)
[2020-08-23] MEDS: oxyCODONE HCL/Acetaminophen 5/325mg ORAL PRN ×2 (02:04→18:03)
[2020-08-23 04:00] VITALS: BP 126/66
[2020-08-23 05:49] LABS: BASOPHILS % (AUTO) 0.6 % (0.0-2.0); EOSINOPHILS % (AUTO) 0.1 % (0.0-3.0); HEMATOCRIT 29.4 % (37.0-47.0); HEMOGLOBIN 9.3 G/DL (12.0-16.0); LYMPHOCYTES % (AUTO) 13.9 % (20.0-45.0); MEAN CORPUSCULAR VOLUME 99 FL (80-99); MONOCYTES % (AUTO) 9.5 % (1.0-10.0); PLATELET COUNT 450 K/UL (150-450); RED BLOOD COUNT 2.98 M/UL (4.20-5.40); RED CELL DISTRIBUTION WIDTH 14.7 % (11.6-14.8); WHITE BLOOD COUNT 8.8 K/UL (4.8-10.8)
[2020-08-23] MEDS: NovoLOG Insulin Flexpen SUBQ SCH ×4 (06:00→17:46)
[2020-08-23 06:14] LABS: CALCIUM 8.8 MG/DL (8.5-10.1); CREATININE 1.2 MG/DL (0.55-1.30); POTASSIUM 4.2 MMOL/L (3.5-5.1)
--- NOTE | 2020-08-23 07:17 | NUR ---
NURSE NOTES: Report received from Rosmery TRAMMELL, rounds made. Patient sleeping, calm on RA. Respirations even/unlabored. No signs of distress. Lissette ileostomy appliance in place, secured, no leaking, with belt on, brown liquid noted in collection bag. RUC central line dressing CDI, TPN at 50 ml/hr. Call light in reach, bed in lowest position, will continue to monitor.
--- NOTE | 2020-08-23 07:54 | NUR ---
NURSE HAND-OFF: Important Events on Shift:[NONE] Patient Status: [STABLE] Diet: [BCIR LOW RESIDUE] Pending Orders: [NONE] Pending Results: NONE Pending MD notification:[NONE] Latest Vital Signs: Temperature 98.6 , Pulse 93 , B/P 126 /66 , Respiratory Rate 18 , O2 SAT 93 , Room Air, O2 Flow Rate 3.0 . Vital Sign Comment: [WNL] Latest Henry Fall Score: 60 Fall Risk: High Risk Safety Measures: Call light Within Reach, Bed Alarm Zone 1, Side Rails Side Rails x2, Bed position Low and Locked. Fall Precautions: Door Sign Patient Fall Education Report given to [VALERI MARINO].
[2020-08-23 08:00] VITALS: BP 150/73
--- NOTE | 2020-08-23 08:04 | Pulmonology Progress Note ---
Subjective ROS Limited/Unobtainable: Yes Interval Events: None new Constitutional: Denies: fever HEENT: Repors: no symptoms Respiratory: Reports: no symptoms Cardiovascular: Reports: no symptoms Gastrointestinal/Abdominal: Denies: nausea, vomiting Genitourinary: Reports: no symptoms Psychiatric: Denies: depression Skin: Denies: rash Musculoskeletal: Denies: pain Allergies: Coded Allergies: CEFEPIME (Verified Adverse Reaction, Severe, 08/05/20) causes low platlets ADHESIVE TAPE (Verified Adverse Reaction, Intermediate, Rash, 08/27/19) CLEAR TAPE Objective Last 24 Hour Vital Signs Date Time Temp Pulse Resp B/P (MAP) Pulse Ox O2 Delivery O2 Flow Rate FiO2 08/23/20 04:00 98.6 93 18 126/66 (86) 93 93 93 08/22/20 21:00 Room Air 08/22/20 20:00 98.8 93 17 122/69 (86) 96 93 93 08/22/20 16:30 98.5 94 18 121/64 (83) 95 08/22/20 15:30 Room Air 08/22/20 12:00 98.0 96 18 122/72 (89) 97 08/22/20 09:00 Room Air Intake and Output 08/22/20 08/23/20 19:00 07:00 Intake Total 1500 ml 360 ml Output Total 1400 ml 1700 ml Balance 100 ml -1340 ml Intake Oral 600 ml 360 ml IV Total 900 ml Output Urine Total 1150 ml 1600 ml Other 250 ml 100 ml # Voids 10 5 General Appearance: no acute distress HEENT: normocephalic Respiratory: chest wall non-tender, lungs clear Cardiovascular: normal peripheral pulses Abdomen: normal bowel sounds Laboratory Tests 08/22/20 12:10: POC Whole Blood Glucose 108H 08/22/20 17:59: POC Whole Blood Glucose 110H 08/22/20 18:50: Vancomycin Level Trough 12.6H 08/23/20 00:45: POC Whole Blood Glucose 108H 08/23/20 05:20: White Blood Count 8.8, Red Blood Count 2.98L, Hemoglobin 9.3L, Hematocrit 29.4L, Mean Corpuscular Volume 99, Mean Corpuscular Hemoglobin 31.2H, Mean Corpuscular Hemoglobin Concent 31.6L, Red Cell Distribution Width 14.7, Platelet Count 450, Mean Platelet Volume 6.5, Neutrophils (%) (Auto) 76.0H, Lymphocytes (%) (Auto) 13.9L, Monocytes (%) (Auto) 9.5, Eosinophils (%) (Auto) 0.1, Basophils (%) (Auto) 0.6, Sodium Level 139, Potassium Level 4.2, Chloride Level 106, Carbon Dioxide Level 28, Anion Gap 5, Blood Urea Nitrogen 19H, Creatinine 1.2, Estimat Glomerular Filtration Rate 44.5, Glucose Level 110H, Calcium Level 8.8 08/23/20 05:56: POC Whole Blood Glucose 110H Current Medications Medications (Trade) Dose Ordered Sig/Jori Route PRN Reason Start Time Stop Time Status Last Admin Dose Admin Acetaminophen (Tylenol) 650 mg Q4H PRN ORAL Mild Pain or temp over 100.2 08/16/20 10:00 09/14/20 10:14 08/17/20 02:13 Bupropion HCl (Wellbutrin SR) 200 mg TWICE A DAY ORAL 08/12/20 09:00 09/11/20 08:59 08/22/20 18:06 Chlorhexidine Gluconate (Kathryn-Hex 2%) 1 applic DAILY@2000 TOPIC 08/07/20 20:15 11/05/20 20:14 08/22/20 21:07 Citalopram Hydrobromide (CeleXA) 10 mg DAILY ORAL 08/16/20 09:00 09/15/20 08:59 08/22/20 08:48 Dextrose 1,000 ml @ 0 mls/hr Q24H PRN IV PN interrupted or unavailable 08/05/20 20:00 09/04/20 19:59 Dextrose (Dextrose 50%) 25 ml Q30M PRN IV Hypoglycemia 08/05/20 20:00 11/03/20 19:59 Dextrose (Dextrose 50%) 50 ml Q30M PRN IV Hypoglycemia 08/05/20 20:00 11/03/20 19:59 Dicyclomine HCl (Bentyl) 10 mg QIDPRN PRN ORAL Abdominal cramps 08/17/20 09:30 11/15/20 09:29 Diphenhydramine HCl (Benadryl) 50 mg Q4H PRN IVP Itching/Pruritis 08/13/20 09:15 09/12/20 09:14 Fat Emulsion Intravenous 144 ml/Amino Acids/ Electrolytes/ Dextrose 1,200 ml @ 50 mls/hr Q24H IV 08/22/20 20:00 09/21/20 19:59 08/22/20 21:09 Fluconazole (Diflucan) 100 mg DAILY ORAL 08/19/20 09:00 08/26/20 08:59 08/22/20 08:49 Folic Acid (Folate) 1 mg DAILY ORAL 08/16/20 09:00 09/15/20 08:59 08/22/20 08:48 Hydromorphone HCl (Dilaudid) 1 mg Q3H PRN SUBQ Severe Breakthru Pain (>7) 08/21/20 11:39 08/28/20 11:38 Insulin Aspart (NovoLOG) Q6HR SUBQ 08/06/20 00:00 11/04/20 00:00 08/06/20 17:38 Lorazepam (Ativan) 1 mg Q4H PRN SL Muscle Spasm 08/18/20 13:50 08/25/20 13:49 Meloxicam (Mobic) 15 mg DAILY ORAL 08/16/20 09:00 09/15/20 08:59 08/22/20 08:48 Naloxone HCl (Narcan) 0.1 mg Q1M PRN IVP RR<10/min OR SBP<90 mmHg 08/08/20 09:10 11/06/20 09:09 Nystatin (Nystatin) 5 ml QID ORAL 08/18/20 14:00 08/25/20 13:59 08/22/20 21:07 Ondansetron HCl (Zofran) 4 mg Q4H PRN IVP Nausea & Vomiting 08/06/20 15:00 09/05/20 14:59 08/14/20 10:09 Ondansetron HCl (Zofran) 4 mg Q4H PRN ORAL Nausea & Vomiting 08/16/20 08:45 09/14/20 10:14 Oxycodone/ Acetaminophen (Percocet 5-325) 1 tab Q4H PRN ORAL SEVERE PAIN 08/21/20 11:39 08/28/20 11:38 08/23/20 02:04 Pantoprazole (Protonix) 40 mg DAILY IVP 08/07/20 09:00 09/06/20 08:59 08/22/20 08:45 Patient Own Medication (Patient's Own Med) 1 ea DAILY ORAL 08/15/20 09:00 09/14/20 08:59 08/22/20 08:51 Phytonadione (Vitamin K) 10 mg ONCE A WEEK SUBQ 08/05/20 10:00 11/03/20 09:59 08/19/20 11:10 Piperacillin Sod/ Tazobactam Sod 3.375 gm/Dextrose 110 ml @ 27.5 mls/hr Q8H IVPB 08/21/20 09:00 08/28/20 08:59 08/23/20 00:43 Prochlorperazine (Compazine) 10 mg Q6H PRN IVP anxiety 08/15/20 21:45 09/14/20 21:44 08/16/20 21:54 Simethicone (Mylicon) 80 mg QIDPRN PRN NG Abdominal cramps, gas 08/15/20 10:15 11/13/20 10:14 08/22/20 15:26 Trazodone HCl (Desyrel) 200 mg BEDTIME ORAL 08/16/20 21:00 09/14/20 20:59 08/22/20 21:08 Vancomycin HCl (Vanco pharmacy to dose) 1 ea DAILY PRN MISC Per rx protocol 08/18/20 04:30 09/17/20 04:29 Vancomycin HCl 1 gm/Dextrose 275 ml @ 183.708 mls/hr Q12HR IVPB 08/22/20 21:00 08/27/20 20:59 08/22/20 21:08 Assessment/Plan Assessment/Plan IMPRESSION: 1. Postoperative fever, now resolved. 2. Status post failed Kock pouch. 3. Status post ileostomy placement. 4. Anxiety. 5. Ulcerative colitis. DISCUSSION: She is saturating well on nasal oxygen/room air. Antibiotics per Dr. Bermudez. Fever has resolved. Clinically, she is feeling better. I will continue monitor. Hold off on any pulmonary interventions. I will follow carefully. Shree Zenon Pope Omar Syed MD Aug 23, 2020 08:04
[2020-08-23] MEDS: Vancomycin 1gm/D5W 275ml IVPB SCH ×4 (08:07→20:11)
[2020-08-23] MEDS: BuPROPion SR 100mg tab ORAL SCH ×2 (08:39→17:36)
[2020-08-23] MEDS: Citalopram Hydrobromide 10mg Tab ORAL SCH (08:39)
[2020-08-23] MEDS: Nystatin Susp 500,000 units/5ml ORAL SCH ×4 (08:39→20:10)
[2020-08-23] MEDS: Fluconazole 100mg tab ORAL SCH (08:39)
[2020-08-23] MEDS: Meloxicam 15 MG TAB ORAL SCH (08:39)
[2020-08-23] MEDS: Pantoprazole Inj IVP SCH (08:39)
--- NOTE | 2020-08-23 10:35 | General Progress Note ---
Progress Note Progress Note AVSS c/o of intermittent shortness of breath - Dr. Pope notified Abdomen soft, flat, lu removed and ileostomy appliance intact without leaks Urine 2750 Ileostomy 350 eating only 20% Imp: Slow improvement Plan: continue TPN at 50cc/hour + regular diet antibiotics per ID resp symptoms - per Pulmonary Lalo Meadows MD Aug 23, 2020 10:35
[2020-08-23] MEDS: Simethicone 80mg tab NG PRN ×2 (11:05→18:02)
[2020-08-23 12:00] VITALS: BP 123/67
--- NOTE | 2020-08-23 13:00 | NUR ---
NURSE NOTES:SPOKE TO FRANCHESCA(YECENIA)RE:TO FOLLOW UP FOR PTS SNF PLACEMENT ORDERED BY DR. LAZAR ON 08/21,PT.POSSIBLE D/C ON MONDAY.
--- NOTE | 2020-08-23 13:34 | Infectious Diseases Prog Note ---
Assessment/Plan Assessment/Plan ASSESSMENT AND PLAN: 1. fevers, leukocytosis, ? sepsis, ileus vs bowel obstruction, pelvic fluid collection but aspiration culture negative coag neg staph blood cultures - 3/4 bottles, ? line infection, difficult IV access ? aspiration pna/hcap on chest x-ray - zosyn - day # 9/10 - vancomycin - day # 6 - management per Dr. Meadows - d/w Dr. Meadows - difficult iv access - keep line for now, surveillance blood cultures ordered - d/w RN and patient - monitor labs, monitor chest x-ray - chest x-ray ordered for tomorrow - clinically improving - d/w Dr. Meadows 2. 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 3. The patient has a history of intra-abdominal abscess and bowel obstruction in the past, status post surgery and drainage. 4. The patient has history of ulcerative colitis. 5. History of proctocolectomy. 6. History of multiple abdominal operations. 7. History of parathyroid adenoma resection. 8. History of spinal surgery. 9. Continue management per Dr. Meadows. 10. Past medical history is noted. 11. Allergies to adhesive tape and cefepime. The cefepime allergy was thrombocytopenia, not a true allergy, more of a side effect. Case was discussed with pharmacy and it should be safe to give Zosyn since the patient was on Unasyn. 12. Social history is negative. 13. Family history is noncontributory. 14. MAR is noted. 15. Case was discussed with RN. 16. Continue treatment per primary and consultants Subjective Constitutional: Reports: other - had sob earlier but not now ; Denies: fever HEENT: Denies: congestion - less cough Respiratory: Denies: shortness of breath Cardiovascular: Denies: chest pain Gastrointestinal/Abdominal: Denies: nausea, vomiting Genitourinary: Reports: other - no decker Neurologic: Denies: headache Psychiatric: Denies: depression Skin: Denies: rash Hematologic: Denies: bleeding Musculoskeletal: Denies: pain Allergies: Coded Allergies: CEFEPIME (Verified Adverse Reaction, Severe, 08/05/20) causes low platlets ADHESIVE TAPE (Verified Adverse Reaction, Intermediate, Rash, 08/27/19) CLEAR TAPE Objective Last 24 Hour Vital Signs Date Time Temp Pulse Resp B/P (MAP) Pulse Ox O2 Delivery O2 Flow Rate FiO2 08/23/20 12:00 98.7 61 18 123/67 (85) 97 61 08/23/20 08:00 98.8 92 18 150/73 (98) 96 08/23/20 04:00 98.6 93 18 126/66 (86) 93 93 93 08/22/20 21:00 Room Air 08/22/20 20:00 98.8 93 17 122/69 (86) 96 93 93 08/22/20 16:30 98.5 94 18 121/64 (83) 95 08/22/20 15:30 Room Air Height (Feet): 5 Height (Inches): 5.00 Weight (Pounds): 126 General Appearance: no acute distress HEENT: normocephalic, atraumatic, anicteric, mucous membranes moist Respiratory/Chest: lungs clear, normal breath sounds, no respiratory distress, no accessory muscle use Cardiovascular: normal rate, regular rhythm, no gallop/murmur, no JVD Abdomen: normal bowel sounds, non distended Genitourinary: other - + decker Extremities: no cyanosis Skin: no rash 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 Distended small bowel. Probably secondary to postoperative ileus but distal small bowel obstruction not excludable. Fluid within the vaginal vault. Significance uncertain. Gas within the bladder, likely related to recent instrumentation. Bilateral moderate pleural effusions. Resultant passive atelectasis at both lung bases. Degenerative spondylosis Findings discussed by phone with Dr. Meadows at the time of interpretation Chest x-ray - 08/14/20 - COMPARISON: Chest radiograph August 11, 2020 FINDINGS/IMPRESSION: Enteric feeding tube terminates in the stomach. Right IJ catheter terminates in the superior vena cava. Mild vascular congestion and trace bilateral pleural effusions. The size of the left pleural effusion has improved when compared to August 11, 2020. No pneumothorax. Cardiomegaly. Chest x-ray - 08/19/20 - Procedure: XRAY Chest 1v Procedure: XRAY Chest 1v Reason for study: Reason For Exam: COUGH Comparison films: 08/16/2020. FINDINGS: Right central venous catheter remains in place. Vascularity is mildly prominent. There is slight increase of right infrahilar densities likely developing infiltrates. Cardiac and mediastinal silhouette are within normal limits. Small effusions noted. The bony thorax appear unremarkable. IMPRESSION: Slight increased right infrahilar infiltrate and bilateral small effusions. Microbiology Date/Time Source Procedure Growth Status 08/19/20 22:10 Sputum Induced Gram Stain - Final Complete 08/19/20 22:10 Sputum Culture - Final Klebsiella Pneumoniae Usual Respiratory Annmarie Complete 08/18/20 05:10 Blood Blood Culture - Preliminary NO GROWTH AFTER 4 DAYS Resulted 08/14/20 15:15 Abdominal Fluid Gram Stain - Final Complete 08/14/20 15:15 Abdominal Fluid Body Fluid Culture - Final NO GROWTH Complete 08/11/20 08:40 Indwelling Cath Urine Culture - Final NO GROWTH AFTER 48 HOURS Complete 07/29/20 12:45 Stool Clostridium difficile Toxin Assay - Final Complete Laboratory Tests Test 08/22/20 17:59 08/22/20 18:50 08/23/20 00:45 08/23/20 05:20 POC Whole Blood Glucose 110 MG/DL (74-106) H 108 MG/DL (74-106) H Vancomycin Level Trough 12.6 ug/mL (5.0-12.0) H White Blood Count 8.8 K/UL (4.8-10.8) Red Blood Count 2.98 M/UL (4.20-5.40) L Hemoglobin 9.3 G/DL (12.0-16.0) L Hematocrit 29.4 % (37.0-47.0) L Mean Corpuscular Volume 99 FL (80-99) Mean Corpuscular Hemoglobin 31.2 PG (27.0-31.0) H Mean Corpuscular Hemoglobin Concent 31.6 G/DL (32.0-36.0) L Red Cell Distribution Width 14.7 % (11.6-14.8) Platelet Count 450 K/UL (150-450) Mean Platelet Volume 6.5 FL (6.5-10.1) Neutrophils (%) (Auto) 76.0 % (45.0-75.0) H Lymphocytes (%) (Auto) 13.9 % (20.0-45.0) L Monocytes (%) (Auto) 9.5 % (1.0-10.0) Eosinophils (%) (Auto) 0.1 % (0.0-3.0) Basophils (%) (Auto) 0.6 % (0.0-2.0) Sodium Level 139 MMOL/L (136-145) Potassium Level 4.2 MMOL/L (3.5-5.1) Chloride Level 106 MMOL/L (98-107) Carbon Dioxide Level 28 MMOL/L (21-32) Anion Gap 5 mmol/L (5-15) Blood Urea Nitrogen 19 mg/dL (7-18) H Creatinine 1.2 MG/DL (0.55-1.30) Estimat Glomerular Filtration Rate 44.5 mL/min (>60) Glucose Level 110 MG/DL (74-106) H Calcium Level 8.8 MG/DL (8.5-10.1) Test 08/23/20 05:56 08/23/20 12:04 POC Whole Blood Glucose 110 MG/DL (74-106) H 108 MG/DL (74-106) H Current Medications Medications (Trade) Dose Ordered Sig/Jori Route PRN Reason Start Time Stop Time Status Last Admin Dose Admin Acetaminophen (Tylenol) 650 mg Q4H PRN ORAL Mild Pain or temp over 100.2 08/16/20 10:00 09/14/20 10:14 08/17/20 02:13 Bupropion HCl (Wellbutrin SR) 200 mg TWICE A DAY ORAL 08/12/20 09:00 09/11/20 08:59 08/23/20 08:39 Chlorhexidine Gluconate (Kathryn-Hex 2%) 1 applic DAILY@2000 TOPIC 08/07/20 20:15 11/05/20 20:14 08/22/20 21:07 Citalopram Hydrobromide (CeleXA) 10 mg DAILY ORAL 08/16/20 09:00 09/15/20 08:59 08/23/20 08:39 Dextrose 1,000 ml @ 0 mls/hr Q24H PRN IV PN interrupted or unavailable 08/05/20 20:00 09/04/20 19:59 Dextrose (Dextrose 50%) 25 ml Q30M PRN IV Hypoglycemia 08/05/20 20:00 11/03/20 19:59 Dextrose (Dextrose 50%) 50 ml Q30M PRN IV Hypoglycemia 08/05/20 20:00 11/03/20 19:59 Dicyclomine HCl (Bentyl) 10 mg QIDPRN PRN ORAL Abdominal cramps 08/17/20 09:30 11/15/20 09:29 Diphenhydramine HCl (Benadryl) 50 mg Q4H PRN IVP Itching/Pruritis 08/13/20 09:15 09/12/20 09:14 Fat Emulsion Intravenous 144 ml/Amino Acids/ Electrolytes/ Dextrose 1,200 ml @ 50 mls/hr Q24H IV 08/22/20 20:00 09/21/20 19:59 08/22/20 21:09 Fluconazole (Diflucan) 100 mg DAILY ORAL 08/19/20 09:00 08/26/20 08:59 08/23/20 08:39 Folic Acid (Folate) 1 mg DAILY ORAL 08/16/20 09:00 09/15/20 08:59 08/23/20 08:39 Hydromorphone HCl (Dilaudid) 1 mg Q3H PRN SUBQ Severe Breakthru Pain (>7) 08/21/20 11:39 08/28/20 11:38 Insulin Aspart (NovoLOG) Q6HR SUBQ 08/06/20 00:00 11/04/20 00:00 08/06/20 17:38 Lorazepam (Ativan) 1 mg Q4H PRN SL Muscle Spasm 08/23/20 13:50 08/30/20 13:49 Meloxicam (Mobic) 15 mg DAILY ORAL 08/16/20 09:00 09/15/20 08:59 08/23/20 08:39 Naloxone HCl (Narcan) 0.1 mg Q1M PRN IVP RR<10/min OR SBP<90 mmHg 08/08/20 09:10 11/06/20 09:09 Nystatin (Nystatin) 5 ml QID ORAL 08/23/20 13:00 08/30/20 12:59 08/23/20 13:12 Ondansetron HCl (Zofran) 4 mg Q4H PRN IVP Nausea & Vomiting 08/06/20 15:00 09/05/20 14:59 08/14/20 10:09 Ondansetron HCl (Zofran) 4 mg Q4H PRN ORAL Nausea & Vomiting 08/16/20 08:45 09/14/20 10:14 Oxycodone/ Acetaminophen (Percocet 5-325) 1 tab Q4H PRN ORAL SEVERE PAIN 08/21/20 11:39 08/28/20 11:38 08/23/20 02:04 Pantoprazole (Protonix) 40 mg DAILY IVP 08/07/20 09:00 09/06/20 08:59 08/23/20 08:39 Patient Own Medication (Patient's Own Med) 1 ea DAILY ORAL 08/15/20 09:00 09/14/20 08:59 08/23/20 08:39 Phytonadione (Vitamin K) 10 mg ONCE A WEEK SUBQ 08/05/20 10:00 11/03/20 09:59 08/19/20 11:10 Piperacillin Sod/ Tazobactam Sod 3.375 gm/Dextrose 110 ml @ 27.5 mls/hr Q8H IVPB 08/21/20 09:00 08/28/20 08:59 08/23/20 10:21 Prochlorperazine (Compazine) 10 mg Q6H PRN IVP anxiety 08/15/20 21:45 09/14/20 21:44 08/16/20 21:54 Simethicone (Mylicon) 80 mg QIDPRN PRN NG Abdominal cramps, gas 08/15/20 10:15 11/13/20 10:14 08/23/20 11:05 Trazodone HCl (Desyrel) 200 mg BEDTIME ORAL 08/16/20 21:00 09/14/20 20:59 08/22/20 21:08 Vancomycin HCl (Vanco pharmacy to dose) 1 ea DAILY PRN MISC Per rx protocol 08/18/20 04:30 09/17/20 04:29 Vancomycin HCl 1 gm/Dextrose 275 ml @ 183.708 mls/hr Q12HR IVPB 08/22/20 21:00 08/27/20 20:59 08/23/20 08:07 Osmin Bermudez MD Aug 23, 2020 13:34
[2020-08-23] MEDS ORDERED: LORazepam 1mg tab SL PRN (13:50)
[2020-08-23 16:00] VITALS: BP 122/72
--- NOTE | 2020-08-23 18:30 | NUR ---
NURSE NOTES: Emptied Lissette Ileostomy x4 this shift, small amount of air noted in bag each time. Medicated with Simethicone x2. Lissette ileostomy appliance remains CDI, no leaking, belt in place.
--- NOTE | 2020-08-23 19:07 | NUR ---
NURSE HAND-OFF: Important Events on Shift:Diet changed to Regular Patient Status: stable Diet: Regular Outputs: Urine: 1325 ml Lissette: 575 ml Pending Orders: CXR 08/24 Pending Results/Labs:CBC CMP MG PHOS 08/24 Pending MD notification:none Latest Vital Signs: Temperature 98.5 , Pulse 96 , B/P 122 /72 , Respiratory Rate 18 , O2 SAT 96 , Room Air, O2 Flow Rate 3.0 . Vital Sign Comment: none Latest Henry Fall Score: 60 Fall Risk: High Risk Safety Measures: Call light Within Reach, Bed Alarm Zone 1, Side Rails Side Rails x2, Bed position Low and Locked. Fall Precautions: Door Sign Patient Fall Education Report given to Rosmery TRAMMELL.
[2020-08-23 20:00] VITALS: BP 126/67
[2020-08-23] MEDS: Dyna-Hex 2% Top Sol 2oz TOPIC SCH (20:09)
[2020-08-23] MEDS: TraZODone 100mg tab ORAL SCH (20:11)
[2020-08-23] MEDS: TPN IV SCH (20:18)
[2020-08-23] MEDS: FAT EMULSION 20% IV SCH (20:18)
--- NOTE | 2020-08-23 21:20 | NUR ---
NURSES NOTE: Pt in bed, A/OX4, states she feels nauseated. Denies pain. 4mg Zofran IV push administered. Effective. No outward s/s of distress noted. Breathing pattern is even and unlabored on RA. Ileo, LRQ, intact, tight seal, no leakage noted. Appliance emptied. R chest, subclavian central line in place infusing IVF without incident. No redness, or warmth noted. TPN hung at 50cc/hr. All due medications will be administered. Bed at lowest level. Call light within reach. Pt will continue to be monitored.
[2020-08-24] MEDS: Piperacillin/Tazobactam 3.375 GM in D5W 110 ML IVPB SCH (00:32)
[2020-08-24] MEDS: oxyCODONE HCL/Acetaminophen 5/325mg ORAL PRN ×2 (01:23→20:36)
[2020-08-24 04:00] VITALS: BP 124/68
[2020-08-24] MEDS: NovoLOG Insulin Flexpen SUBQ SCH ×4 (05:28→17:29)
[2020-08-24] MEDS: Simethicone 80mg tab NG PRN ×2 (05:35→17:23)
--- NOTE | 2020-08-24 07:11 | NUR ---
NURSE HAND-OFF: Important Events on Shift:[NONE] Patient Status: [STABLE] Diet: [REGULAR] Pending Orders: [NONE] Pending Results/Labs:[cbc, bmp, mag, phos pending] Pending MD notification:[NONE] Latest Vital Signs: Temperature 98.7 , Pulse 98 , B/P 124 /68 , Respiratory Rate 18 , O2 SAT 94 , Room Air, O2 Flow Rate 3.0 . Vital Sign Comment: [WNL] Latest Henry Fall Score: 60 Fall Risk: High Risk Safety Measures: Call light Within Reach, Bed Alarm Zone 1, Side Rails Side Rails x2, Bed position Low and Locked. Fall Precautions: Door Sign Patient Fall Education Report given to [].
--- NOTE | 2020-08-24 07:40 | NUR ---
NURSE NOTES: Received report from VALERI Botello. Pt in bed, alert and oriented, on RA. Breathing even and unlabored. Denied any pain or discomfort at this time. Monroe Ileo, LRQ, intact and patent. R chest subclavian central line in place infusing IVF without incident. No redness, or warmth noted. Bed in low position and locked. Call light within reach. Pt will continue to be monitored.
--- NOTE | 2020-08-24 08:07 | NUR ---
HAND OFF: Report given to VALERI Lott.
[2020-08-24 08:45] LABS: BASOPHILS % (AUTO) 1.1 % (0.0-2.0); EOSINOPHILS % (AUTO) 0.1 % (0.0-3.0); HEMATOCRIT 31.9 % (37.0-47.0); HEMOGLOBIN 10.1 G/DL (12.0-16.0); LYMPHOCYTES % (AUTO) 14.3 % (20.0-45.0); MEAN CORPUSCULAR VOLUME 99 FL (80-99); MONOCYTES % (AUTO) 5.8 % (1.0-10.0); NEUTROPHILS % (AUTO) 78.6 % (45.0-75.0); PLATELET COUNT 441 K/UL (150-450); RED BLOOD COUNT 3.21 M/UL (4.20-5.40); WHITE BLOOD COUNT 9.9 K/UL (4.8-10.8)
[2020-08-24 08:57] LABS: ALANINE AMINOTRANSFERASE 19 U/L (12-78); ALBUMIN 2.3 G/DL (3.4-5.0); ALBUMIN/GLOBULIN RATIO 0.5 (1.0-2.7); ALKALINE PHOSPHATASE 392 U/L (46-116); ASPARTATE AMINO TRANSFERASE 20 U/L (15-37); BILIRUBIN,TOTAL 0.5 MG/DL (0.2-1.0); BLOOD UREA NITROGEN 19 mg/dL (7-18); CALCIUM 9.1 MG/DL (8.5-10.1); CARBON DIOXIDE 27 MMOL/L (21-32); CHLORIDE 104 MMOL/L (98-107); CREATININE 1.1 MG/DL (0.55-1.30); PHOSPHORUS 3.9 MG/DL (2.5-4.9); POTASSIUM 4.2 MMOL/L (3.5-5.1); SODIUM 138 MMOL/L (136-145)
[2020-08-24] MEDS: BuPROPion SR 100mg tab ORAL SCH ×2 (09:26→17:22)
[2020-08-24] MEDS: Citalopram Hydrobromide 10mg Tab ORAL SCH (09:27)
[2020-08-24] MEDS: Nystatin Susp 500,000 units/5ml ORAL SCH ×4 (09:27→20:11)
[2020-08-24] MEDS: Fluconazole 100mg tab ORAL SCH (09:27)
[2020-08-24] MEDS: Vancomycin 1gm/D5W 275ml IVPB SCH ×4 (09:27→20:12)
[2020-08-24] MEDS: Meloxicam 15 MG TAB ORAL SCH (09:27)
[2020-08-24] MEDS: Pantoprazole Inj IVP SCH (09:27)
--- NOTE | 2020-08-24 09:48 | General Progress Note ---
Subjective ROS Limited/Unobtainable: Yes Allergies: Coded Allergies: CEFEPIME (Verified Adverse Reaction, Severe, 08/05/20) causes low platlets ADHESIVE TAPE (Verified Adverse Reaction, Intermediate, Rash, 08/27/19) CLEAR TAPE Objective Last 24 Hour Vital Signs Date Time Temp Pulse Resp B/P (MAP) Pulse Ox O2 Delivery O2 Flow Rate FiO2 08/24/20 04:00 98.7 92 18 124/68 (86) 94 98 08/23/20 21:00 Room Air 08/23/20 20:00 98.1 98 20 126/67 (86) 97 98 08/23/20 16:00 98.5 96 18 122/72 (89) 96 96 08/23/20 12:00 98.7 61 18 123/67 (85) 97 61 Intake and Output 08/23/20 08/24/20 19:00 07:00 Intake Total 1498 ml 240 ml Output Total 1900 ml 1325 ml Balance -402 ml -1085 ml Intake Oral 948 ml 240 ml IV Total 550 ml Output Urine Total 1325 ml 1000 ml Other 575 ml 325 ml # Voids 9 7 Laboratory Tests 08/23/20 12:04: POC Whole Blood Glucose 108H 08/23/20 17:45: POC Whole Blood Glucose 105 08/24/20 00:28: POC Whole Blood Glucose 123H 08/24/20 05:27: POC Whole Blood Glucose 111H 08/24/20 08:00: White Blood Count 9.9, Red Blood Count 3.21L, Hemoglobin 10.1L, Hematocrit 31.9L , Mean Corpuscular Volume 99, Mean Corpuscular Hemoglobin 31.6H, Mean Corpuscula r Hemoglobin Concent 31.8L, Red Cell Distribution Width 15.0H, Platelet Count 441, Mean Platelet Volume 7.1, Neutrophils (%) (Auto) 78.6H, Lymphocytes (%) (Auto) 14.3L, Monocytes (%) (Auto) 5.8, Eosinophils (%) (Auto) 0.1, Basophils (%) (Auto) 1.1, Sodium Level 138, Potassium Level 4.2, Chloride Level 104, Car bon Dioxide Level 27, Blood Urea Nitrogen 19H, Creatinine 1.1, Estimat Glomerular Filtration Rate 49.3, Glucose Level 101, Calcium Level 9.1, Phosphorus Level 3.9, Magnesium Level 1.8, Total Bilirubin 0.5, Aspartate Amino Transf (AST/SGOT) 20, Alanine Aminotransferase (ALT/SGPT) 19, Alkaline Phosphatase 392H, Total Protein 6.8, Albumin 2.3L, Globulin 4.5, Albumin/Globulin Ratio 0.5L, Vancomycin Level Trough 20.4H Height (Feet): 5 Height (Inches): 5.00 Weight (Pounds): 126 General Appearance: alert EENT: normal ENT inspection Neck: supple Cardiovascular: normal rate Respiratory/Chest: decreased breath sounds Abdomen: hypoactive bowel sounds, tender Extremities: non-tender Assessment/Plan Assessment/Plan: feeling very tired this morning on TPN 50 cc and regular diet dietitian in put appreciated ABX per id fu surg recs Adrian Morrison MD Aug 24, 2020 09:48
--- NOTE | 2020-08-24 09:56 | NUR ---
DISCHARGE PLANNING FOLLOW UP CALL MADE TO ALMA AT [facility] AND CONFIRMED PATIENT ACCEPTED UPON DC.
[2020-08-24 12:00] VITALS: BP 138/80
--- NOTE | 2020-08-24 12:09 | General Progress Note ---
Progress Note Progress Note Continues Afebrile VSS c/o intermittent nausea, poor appetite, frequent voiding Abdomen soft. Ileostomy appliance remaining intact Urine 2325 Ileostomy 700 (eating 25%) WBC 9900 Hgb 10.1 BUN 19 Cr 1.1 alk phos down 392 Albumin up 2.3 Imp: Slowly improving Plan; Post-void bladder scan for residual volume taper and d/c TPN today use Zofran ODT instead of IV if effective Discharge planning to SNF in progress Will need to observe as in-patient 48 hours after IV antibiotics have been discontinued Lalo Meadows MD Aug 24, 2020 12:09
--- NOTE | 2020-08-24 13:13 | NUR ---
DISCHARGE PLANNING PER PATIENT REQUEST, PATIENT HAS BEEN REFERRED TO [facility] P: [phone] EXT [facility] F: [phone]
--- NOTE | 2020-08-24 13:17 | NUR ---
RD ASSESSMENT & RECOMMENDATIONS SEE CARE ACTIVITY FOR COMPLETE ASSESSMENT DAILY ESTIMATED NEEDS: Needs based on Surgery / 58.9kg abw 25-35 kcals/kg 3473-8588 total kcals 1-2.0g/kg w/ surgery g protein/kg 59-118g w/ surgery g total protein 25-30 mL/kg 7024-1899 total fluid mLs NUTRITION DIAGNOSIS: Altered GI function R/T h/o malfunctioning ileo, as evidenced by pt unable to intubate, awaiting now s/p pouch endoscopy, on BCIR low residue diet, made NPO again for dilated loops fluid and gas filled per CT scan, s/p kock pouch resection, creation of Lissette ileo, diet now advanced and liberalized to regular, TPN to be dc'ed. CURRENT DIET:now REGULAR diet PO DIET RECOMMENDATIONS: Maintain liberalized regular diet + continue Ensure Enlive BID PARENTERAL NUTRITION RECOMMENDATIONS: TPN to be dc'ed tonight (08/24) per MD ADDITIONAL RECOMMENDATIONS: * Standing wt as able while ambulating for accurate CBW (04/28) standing wt of 135.8 lbs (07/16) Bed wt 130 lbs * Continue Ensure Enlive BID to supplement nutritional needs -> pt requesting chocolate flavor only (350kcal/20g prot each) * Relayed food preferences to kitchen * Monitor PO intake closely .
--- NOTE | 2020-08-24 13:49 | NUR ---
RADIOLOGY DEPT., CHEST X-RAY DONE.-P.DYE
--- NOTE | 2020-08-24 14:25 | NUR ---
NURSE NOTES: Pt assisted to use bedside commode. Pt voided 100cc and done bladder scan. Post residual void amount was 58cc.
[2020-08-24 16:00] VITALS: BP 111/61
[2020-08-24] MEDS ORDERED: NS 275ml ONE ×2 (16:47→16:53)
--- NOTE | 2020-08-24 16:51 | NUR ---
CASE MANAGEMENT:REVIEW SI; ENTEROSTOMY MALFUNCTION. PROLONGED ILEUS. 98.6 98 18 138/80 94% ON RA H/H 10.1/31.9 ALP 392 ALB 2.3 IS;NYSTATIN PO QID TPN IV Q24 PERCOCET PO Q4 PRN ZOSYN IV Q8 MOBIC PO QD MYLICON PO QID PRN MED SURG STATUS DCP;PATIENT FROM HOME PLAN; TAPER TPN POST VOID BLADDER SCAN DC PLANNING TO SNF
--- NOTE | 2020-08-24 16:56 | Diagnostic Imaging Report ---
EXAM: XR Chest, 1 View CLINICAL HISTORY: INFECT TECHNIQUE: Frontal view of the chest. COMPARISON: Chest radiograph on 08/21/2020 FINDINGS: Hardware: Stable right-sided intravenous catheter. Lungs/pleura: Decreased bibasilar opacities. No focal consolidation. Decreased left pleural effusion. Heart/mediastinum: Borderline size of the cardiac silhouette. Soft tissues: Unremarkable. Bones: No acute fracture. Upper abdomen: Normal. IMPRESSION: Decreased bibasilar opacities. No focal consolidation. Decreased left pleural effusion.
--- NOTE | 2020-08-24 19:30 | NUR ---
NURSE NOTES: Received report from Kaylie TRAMMELL
--- NOTE | 2020-08-24 19:35 | NUR ---
NURSE HAND-OFF: Important Events on Shift:[Use bedside commode, PRV 58cc, frequent voids, pt out of bed once, DC TPN] Patient Status: [stable] Diet: [reg] Pending Orders: [] Pending Results/Labs:[] Pending MD notification:[] Latest Vital Signs: Temperature 98.6 , Pulse 92 , B/P 111 /61 , Respiratory Rate 18 , O2 SAT 97 , Room Air, O2 Flow Rate 3.0 . Vital Sign Comment: [stable] Latest Henry Fall Score: 60 Fall Risk: High Risk Safety Measures: Call light Within Reach, Bed Alarm Zone 1, Side Rails Side Rails x2, Bed position Low and Locked. Fall Precautions: Door Sign Patient Fall Education Report given to [VALERI Santillan].
[2020-08-24 20:00] VITALS: BP 126/63
[2020-08-24] MEDS: TraZODone 100mg tab ORAL SCH (20:12)
[2020-08-24] MEDS: Dyna-Hex 2% Top Sol 2oz TOPIC SCH (20:12)
[2020-08-25 04:00] VITALS: BP 114/75
[2020-08-25 05:20] LABS: BASOPHILS % (AUTO) 0.6 % (0.0-2.0); HEMATOCRIT 28.4 % (37.0-47.0); HEMOGLOBIN 9.2 G/DL (12.0-16.0); LYMPHOCYTES % (AUTO) 10.5 % (20.0-45.0); MEAN CORPUSCULAR VOLUME 97 FL (80-99); MONOCYTES % (AUTO) 6.5 % (1.0-10.0); NEUTROPHILS % (AUTO) 82.4 % (45.0-75.0); PLATELET COUNT 397 K/UL (150-450); RED BLOOD COUNT 2.92 M/UL (4.20-5.40); RED CELL DISTRIBUTION WIDTH 14.8 % (11.6-14.8); WHITE BLOOD COUNT 10.3 K/UL (4.8-10.8)
[2020-08-25 05:36] LABS: ALBUMIN 2.2 G/DL (3.4-5.0); ALBUMIN/GLOBULIN RATIO 0.6 (1.0-2.7); BILIRUBIN,TOTAL 0.6 MG/DL (0.2-1.0); CALCIUM 8.6 MG/DL (8.5-10.1); CREATININE 1.1 MG/DL (0.55-1.30); PHOSPHORUS 4.4 MG/DL (2.5-4.9); POTASSIUM 3.9 MMOL/L (3.5-5.1)
--- NOTE | 2020-08-25 06:42 | NUR ---
NURSE HAND-OFF: Important Events on Shift:D/C TPN last night and insulin. Encouraged increase fluid intake. Total ileostomy output was 50 mL, thick brownish output. frequent urination. Total urine output was 900mL. Patient still uses bedpan. Patient Status: Stable Diet: Regular Pending Orders: [] Pending Results/Labs:[] Pending MD notification:[] Latest Vital Signs: Temperature 98.7 , Pulse 94 , B/P 114 /75 , Respiratory Rate 18 , O2 SAT 96 , Room Air, O2 Flow Rate 3.0 . Vital Sign Comment: [] Latest Henry Fall Score: 60 Fall Risk: High Risk Safety Measures: Call light Within Reach, Bed Alarm Zone 1, Side Rails Side Rails x2, Bed position Low and Locked. Fall Precautions: Patient Fall Education Report given to SANAM Bolden
--- NOTE | 2020-08-25 07:28 | NUR ---
NURSE NOTES: Report given to Jason TRAMMELL. Rounds done.
--- NOTE | 2020-08-25 07:40 | NUR ---
NURSE NOTES: Received report from Tyrell RN, rounds made pt sleeping with no s/s of distress , breaths regular unlabored on RA. Pt has R subclavian catheter with IVF, TKO dressing clean intact, Lissette ileo on the R lower quad bag intact ,bed in low locked position , side rails upX2 will continue to monitor
[2020-08-25 08:00] VITALS: BP 113/59
[2020-08-25] MEDS: Vancomycin 1gm/D5W 275ml IVPB SCH ×2 (09:17)
[2020-08-25] MEDS: Pantoprazole Inj IVP SCH (09:18)
[2020-08-25] MEDS: Citalopram Hydrobromide 10mg Tab ORAL SCH (09:18)
[2020-08-25] MEDS: Nystatin Susp 500,000 units/5ml ORAL SCH ×4 (09:18→20:40)
[2020-08-25] MEDS: Fluconazole 100mg tab ORAL SCH (09:18)
[2020-08-25] MEDS: BuPROPion SR 100mg tab ORAL SCH ×2 (09:18→17:47)
[2020-08-25] MEDS: Meloxicam 15 MG TAB ORAL SCH (09:18)
--- NOTE | 2020-08-25 10:03 | Pulmonology Progress Note ---
Subjective ROS Limited/Unobtainable: Yes Interval Events: None new Constitutional: Reports: other - had sob earlier but not now ; Denies: fever HEENT: Repors: no symptoms Respiratory: Reports: no symptoms Cardiovascular: Reports: no symptoms Gastrointestinal/Abdominal: Denies: nausea, vomiting Genitourinary: Reports: no symptoms Psychiatric: Denies: depression Skin: Denies: rash Musculoskeletal: Denies: pain Allergies: Coded Allergies: CEFEPIME (Verified Adverse Reaction, Severe, 08/05/20) causes low platlets ADHESIVE TAPE (Verified Adverse Reaction, Intermediate, Rash, 08/27/19) CLEAR TAPE Objective Last 24 Hour Vital Signs Date Time Temp Pulse Resp B/P (MAP) Pulse Ox O2 Delivery O2 Flow Rate FiO2 08/25/20 08:00 99.2 101 18 113/59 (77) 97 08/25/20 04:00 98.7 94 18 114/75 (88) 96 08/24/20 21:06 98.6 08/24/20 21:00 Room Air 08/24/20 20:00 99.1 93 18 126/63 (84) 97 08/24/20 16:00 98.6 92 18 111/61 (78) 97 08/24/20 12:00 98.1 98 18 138/80 (99) 97 Intake and Output 08/24/20 08/25/20 19:00 07:00 Intake Total 1000 ml 480 ml Output Total 1190 ml 950 ml Balance -190 ml -470 ml Intake Oral 1000 ml 480 ml Output Urine Total 1150 ml 900 ml Other 40 ml 50 ml # Voids 10 5 General Appearance: no acute distress HEENT: normocephalic Respiratory: chest wall non-tender, lungs clear Cardiovascular: normal peripheral pulses Abdomen: normal bowel sounds Laboratory Tests 08/24/20 17:28: POC Whole Blood Glucose [Pending] 08/25/20 04:45: White Blood Count 10.3, Red Blood Count 2.92L, Hemoglobin 9.2L, Hematocrit 28.4L , Mean Corpuscular Volume 97, Mean Corpuscular Hemoglobin 31.5H, Mean Corpuscular Hemoglobin Concent 32.4, Red Cell Distribution Width 14.8, Platelet Count 397, Mean Platelet Volume 6.5, Neutrophils (%) (Auto) 82.4H, Lymphocytes (%) (Auto) 10.5L, Monocytes (%) (Auto) 6.5, Eosinophils (%) (Auto) 0.0, Basophils (%) (Auto) 0.6, Sodium Level 138, Potassium Level 3.9, Chloride Level 104, Carbon Dioxide Level 28, Anion Gap 6, Blood Urea Nitrogen 17, Creatinine 1.1, Estimat Glomerular Filtration Rate 49.3, Glucose Level 78, Calcium Level 8.6, Phosphorus Level 4.4, Magnesium Level 1.5L, Total Bilirubin 0.6, Aspartate Amino Transf (AST/SGOT) 21, Alanine Aminotransferase (ALT/SGPT) 18, Alkaline Phosphatase 372H, Total Protein 6.2L, Albumin 2.2L, Globulin 4.0, Albumin/Globulin Ratio 0.6L 08/25/20 08:30: Vancomycin Level Trough 20.2H Current Medications Medications (Trade) Dose Ordered Sig/Jori Route PRN Reason Start Time Stop Time Status Last Admin Dose Admin Acetaminophen (Tylenol) 650 mg Q4H PRN ORAL Mild Pain or temp over 100.2 08/16/20 10:00 09/14/20 10:14 08/17/20 02:13 Bupropion HCl (Wellbutrin SR) 200 mg TWICE A DAY ORAL 08/12/20 09:00 09/11/20 08:59 08/25/20 09:18 Chlorhexidine Gluconate (Kathryn-Hex 2%) 1 applic DAILY@2000 TOPIC 08/07/20 20:15 11/05/20 20:14 08/24/20 20:12 Citalopram Hydrobromide (CeleXA) 10 mg DAILY ORAL 08/16/20 09:00 09/15/20 08:59 08/25/20 09:18 Dicyclomine HCl (Bentyl) 10 mg QIDPRN PRN ORAL Abdominal cramps 08/17/20 09:30 11/15/20 09:29 Diphenhydramine HCl (Benadryl) 50 mg Q4H PRN IVP Itching/Pruritis 08/13/20 09:15 09/12/20 09:14 Fluconazole (Diflucan) 100 mg DAILY ORAL 08/19/20 09:00 08/26/20 08:59 08/25/20 09:18 Folic Acid (Folate) 1 mg DAILY ORAL 08/16/20 09:00 09/15/20 08:59 08/25/20 09:18 Hydromorphone HCl (Dilaudid) 1 mg Q3H PRN SUBQ Severe Breakthru Pain (>7) 08/21/20 11:39 08/28/20 11:38 Lorazepam (Ativan) 1 mg Q4H PRN SL Muscle Spasm 08/23/20 13:50 08/30/20 13:49 Meloxicam (Mobic) 15 mg DAILY ORAL 08/16/20 09:00 09/15/20 08:59 08/25/20 09:18 Naloxone HCl (Narcan) 0.1 mg Q1M PRN IVP RR<10/min OR SBP<90 mmHg 08/08/20 09:10 11/06/20 09:09 Nystatin (Nystatin) 5 ml QID ORAL 08/23/20 13:00 08/30/20 12:59 08/25/20 09:18 Ondansetron HCl (Zofran ODT) 4 mg Q4H PRN ORAL Nausea & Vomiting 08/24/20 12:00 09/23/20 11:59 Ondansetron HCl (Zofran) 4 mg Q4H PRN IVP Nausea & Vomiting 08/06/20 15:00 09/05/20 14:59 08/23/20 20:10 Oxycodone/ Acetaminophen (Percocet 5-325) 1 tab Q4H PRN ORAL SEVERE PAIN 08/21/20 11:39 08/28/20 11:38 08/24/20 20:36 Pantoprazole (Protonix) 40 mg DAILY IVP 08/07/20 09:00 09/06/20 08:59 08/25/20 09:18 Patient Own Medication (Patient's Own Med) 1 ea DAILY ORAL 08/15/20 09:00 09/14/20 08:59 08/25/20 09:17 Prochlorperazine (Compazine) 10 mg Q6H PRN IVP anxiety 08/15/20 21:45 09/14/20 21:44 08/16/20 21:54 Simethicone (Mylicon) 80 mg QIDPRN PRN NG Abdominal cramps, gas 08/15/20 10:15 11/13/20 10:14 08/24/20 17:23 Trazodone HCl (Desyrel) 200 mg BEDTIME ORAL 08/16/20 21:00 09/14/20 20:59 08/24/20 20:12 Vancomycin HCl (Vanco pharmacy to dose) 1 ea DAILY PRN MISC Per rx protocol 08/18/20 04:30 09/17/20 04:29 Vancomycin HCl 750 mg/Sodium Chloride 275 ml @ 183.333 mls/hr Q12HR IVPB 08/25/20 21:00 08/30/20 20:59 Vancomycin HCl 1 gm/Dextrose 275 ml @ 183.708 mls/hr Q12HR IVPB 08/22/20 21:00 08/25/20 11:00 08/25/20 09:17 Assessment/Plan Assessment/Plan IMPRESSION: 1. Postoperative fever, now resolved. 2. Status post failed Kock pouch. 3. Status post ileostomy placement. 4. Anxiety. 5. Ulcerative colitis. DISCUSSION: She is saturating well on room air. Antibiotics per Dr. Bermudez. Fever has resolved. Clinically, she is feeling better. I will continue monitor. Hold off on any pulmonary interventions. I will follow carefully. Zenon Montoya Omar Syed MD Aug 25, 2020 10:03
[2020-08-25] MEDS: oxyCODONE HCL/Acetaminophen 5/325mg ORAL PRN (10:09)
--- NOTE | 2020-08-25 11:07 | General Progress Note ---
Subjective ROS Limited/Unobtainable: Yes Allergies: Coded Allergies: CEFEPIME (Verified Adverse Reaction, Severe, 08/05/20) causes low platlets ADHESIVE TAPE (Verified Adverse Reaction, Intermediate, Rash, 08/27/19) CLEAR TAPE Objective Last 24 Hour Vital Signs Date Time Temp Pulse Resp B/P (MAP) Pulse Ox O2 Delivery O2 Flow Rate FiO2 08/25/20 09:00 Room Air 08/25/20 08:00 99.2 101 18 113/59 (77) 97 08/25/20 04:00 98.7 94 18 114/75 (88) 96 08/24/20 21:06 98.6 08/24/20 21:00 Room Air 08/24/20 20:00 99.1 93 18 126/63 (84) 97 08/24/20 16:00 98.6 92 18 111/61 (78) 97 08/24/20 12:00 98.1 98 18 138/80 (99) 97 Intake and Output 08/24/20 08/25/20 19:00 07:00 Intake Total 1000 ml 480 ml Output Total 1190 ml 950 ml Balance -190 ml -470 ml Intake Oral 1000 ml 480 ml Output Urine Total 1150 ml 900 ml Other 40 ml 50 ml # Voids 10 5 Laboratory Tests 08/24/20 17:28: POC Whole Blood Glucose [Pending] 08/25/20 04:45: White Blood Count 10.3, Red Blood Count 2.92L, Hemoglobin 9.2L, Hematocrit 28.4L , Mean Corpuscular Volume 97, Mean Corpuscular Hemoglobin 31.5H, Mean Corpuscular Hemoglobin Concent 32.4, Red Cell Distribution Width 14.8, Platelet Count 397, Mean Platelet Volume 6.5, Neutrophils (%) (Auto) 82.4H, Lymphocytes (%) (Auto) 10.5L, Monocytes (%) (Auto) 6.5, Eosinophils (%) (Auto) 0.0, Basophils (%) (Auto) 0.6, Sodium Level 138, Potassium Level 3.9, Chloride Level 104, Carbon Dioxide Level 28, Anion Gap 6, Blood Urea Nitrogen 17, Creatinine 1.1, Estimat Glomerular Filtration Rate 49.3, Glucose Level 78, Calcium Level 8.6, Phosphorus Level 4.4, Magnesium Level 1.5L, Total Bilirubin 0.6, Aspartate Amino Transf (AST/SGOT) 21, Alanine Aminotransferase (ALT/SGPT) 18, Alkaline Phosphatase 372H, Total Protein 6.2L, Albumin 2.2L, Globulin 4.0, Albumin/Globulin Ratio 0.6L 08/25/20 08:30: Vancomycin Level Trough 20.2H Height (Feet): 5 Height (Inches): 5.00 Weight (Pounds): 126 General Appearance: alert EENT: normal ENT inspection Neck: supple Cardiovascular: normal rate Respiratory/Chest: decreased breath sounds Abdomen: normal bowel sounds, non tender, soft Extremities: non-tender Assessment/Plan Assessment/Plan: no event over night pulm in put appreciated on TPN 50 cc and regular diet dietitian in put appreciated ABX per id fu surg recs Adrian Morrison MD Aug 25, 2020 11:07
--- NOTE | 2020-08-25 11:40 | NUR ---
PT NOTE Attempted to see patient for PT treatment. Patient asleep, able to arouse however patient very groggy, unable to participate with PT at this time. Will re-attempt later as schedule permits, Jason TRAMMELL notified.
[2020-08-25 12:00] VITALS: BP 106/62
--- NOTE | 2020-08-25 14:19 | NUR ---
DISCHARGE PLANNING S/W [facility] AT [facility] AND CONFIRMED PATIENT ACCEPTED TO ADMIT UPON DC FROM [facility] [place]. CM TO CALL [facility] ON DAY OF DC @ [phone] TO OBTAIN BED ASSIGNMENT
--- NOTE | 2020-08-25 14:19 | Infectious Diseases Prog Note ---
Assessment/Plan Assessment/Plan ASSESSMENT AND PLAN: 1. fevers, leukocytosis, ? sepsis, ileus vs bowel obstruction, pelvic fluid collection but aspiration culture negative coag neg staph blood cultures - 3/4 bottles, ? line infection, difficult IV access ? aspiration pna/hcap on chest x-ray - s/p zosyn - vancomycin - day # 8 - management per Dr. Meadows - d/w Dr. Meadows - monitor labs, chest x-ray 08/24/20 - improved - clinically improving 2. 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 3. The patient has a history of intra-abdominal abscess and bowel obstruction in the past, status post surgery and drainage. 4. The patient has history of ulcerative colitis. 5. History of proctocolectomy. 6. History of multiple abdominal operations. 7. History of parathyroid adenoma resection. 8. History of spinal surgery. 9. Continue management per Dr. Meadows. 10. Past medical history is noted. 11. Allergies to adhesive tape and cefepime. The cefepime allergy was thrombocytopenia, not a true allergy, more of a side effect. Case was discussed with pharmacy and it should be safe to give Zosyn since the patient was on Unasyn. 12. Social history is negative. 13. Family history is noncontributory. 14. MAR is noted. 15. Case was discussed with RN. 16. Continue treatment per primary and consultants Subjective Constitutional: Denies: fever HEENT: Denies: congestion Respiratory: Denies: shortness of breath Cardiovascular: Denies: chest pain Gastrointestinal/Abdominal: Denies: nausea, vomiting, diarrhea Genitourinary: Reports: other - no decker Neurologic: Denies: headache Skin: Denies: rash Hematologic: Denies: bleeding Musculoskeletal: Denies: pain Allergies: Coded Allergies: CEFEPIME (Verified Adverse Reaction, Severe, 08/05/20) causes low platlets ADHESIVE TAPE (Verified Adverse Reaction, Intermediate, Rash, 08/27/19) CLEAR TAPE Objective Last 24 Hour Vital Signs Date Time Temp Pulse Resp B/P (MAP) Pulse Ox O2 Delivery O2 Flow Rate FiO2 08/25/20 12:00 98.7 96 18 106/62 (77) 96 08/25/20 09:00 Room Air 08/25/20 08:00 99.2 101 18 113/59 (77) 97 08/25/20 04:00 98.7 94 18 114/75 (88) 96 08/24/20 21:06 98.6 08/24/20 21:00 Room Air 08/24/20 20:00 99.1 93 18 126/63 (84) 97 08/24/20 16:00 98.6 92 18 111/61 (78) 97 Height (Feet): 5 Height (Inches): 5.00 Weight (Pounds): 126 General Appearance: no acute distress HEENT: normocephalic, atraumatic, anicteric, mucous membranes moist Respiratory/Chest: lungs clear, normal breath sounds, no respiratory distress, no accessory muscle use Cardiovascular: normal rate, regular rhythm, no gallop/murmur, no JVD Abdomen: normal bowel sounds, soft, non tender, no organomegaly, non distended Genitourinary: other - no decker Extremities: no cyanosis Skin: no rash Neurologic/Psychiatric: tire vulcanizer II-XII grossly normal, alert, oriented x 3, responsive Lymphatic: no neck adenopathy Musculoskeletal: no effusion CT abdomen and pelvis - 08/14/20 - Impression: Postsurgical changes, as described 8.4 x 2 cm gas and fluid collection in the anterior pelvis, may represent a routine postsurgical collection could also be infected. Distended small bowel. Probably secondary to postoperative ileus but distal small bowel obstruction not excludable. Fluid within the vaginal vault. Significance uncertain. Gas within the bladder, likely related to recent instrumentation. Bilateral moderate pleural effusions. Resultant passive atelectasis at both lung bases. Degenerative spondylosis Findings discussed by phone with Dr. Meadows at the time of interpretation Chest x-ray - 08/14/20 - COMPARISON: Chest radiograph August 11, 2020 FINDINGS/IMPRESSION: Enteric feeding tube terminates in the stomach. Right IJ catheter terminates in the superior vena cava. Mild vascular congestion and trace bilateral pleural effusions. The size of the left pleural effusion has improved when compared to August 11, 2020. No pneumothorax. Cardiomegaly. Chest x-ray - 08/19/20 - Procedure: XRAY Chest 1v Procedure: XRAY Chest 1v Reason for study: Reason For Exam: COUGH Comparison films: 08/16/2020. FINDINGS: Right central venous catheter remains in place. Vascularity is mildly prominent. There is slight increase of right infrahilar densities likely developing infiltrates. Cardiac and mediastinal silhouette are within normal limits. Small effusions noted. The bony thorax appear unremarkable. IMPRESSION: Slight increased right infrahilar infiltrate and bilateral small effusions. Chest x-ray - 08/24/20 - Procedure: XRAY Chest 1v EXAM: XR Chest, 1 View CLINICAL HISTORY: INFECT TECHNIQUE: Frontal view of the chest. COMPARISON: Chest radiograph on 08/21/2020 FINDINGS: Hardware: Stable right-sided intravenous catheter. Lungs/pleura: Decreased bibasilar opacities. No focal consolidation. Decreased left pleural effusion. Heart/mediastinum: Borderline size of the cardiac silhouette. Soft tissues: Unremarkable. Bones: No acute fracture. Upper abdomen: Normal. IMPRESSION: Decreased bibasilar opacities. No focal consolidation. Decreased left pleural effusion. Microbiology Date/Time Source Procedure Growth Status 08/25/20 12:10 Nasopharynx SARS-CoV-2 RdRp Gene Assay - Final Complete 08/18/20 05:10 Blood Blood Culture - Preliminary NO GROWTH AFTER 4 DAYS Resulted 08/14/20 15:15 Abdominal Fluid Gram Stain - Final Complete 08/14/20 15:15 Abdominal Fluid Body Fluid Culture - Final NO GROWTH Complete 08/11/20 08:40 Indwelling Cath Urine Culture - Final NO GROWTH AFTER 48 HOURS Complete 07/29/20 12:45 Stool Clostridium difficile Toxin Assay - Final Complete Microbiology Date/Time Source Procedure Growth Status 08/25/20 12:10 Nasopharynx SARS-CoV-2 RdRp Gene Assay - Final Complete Laboratory Tests Test 08/24/20 17:28 08/25/20 04:45 08/25/20 08:30 POC Whole Blood Glucose Pending White Blood Count 10.3 K/UL (4.8-10.8) Red Blood Count 2.92 M/UL (4.20-5.40) L Hemoglobin 9.2 G/DL (12.0-16.0) L Hematocrit 28.4 % (37.0-47.0) L Mean Corpuscular Volume 97 FL (80-99) Mean Corpuscular Hemoglobin 31.5 PG (27.0-31.0) H Mean Corpuscular Hemoglobin Concent 32.4 G/DL (32.0-36.0) Red Cell Distribution Width 14.8 % (11.6-14.8) Platelet Count 397 K/UL (150-450) Mean Platelet Volume 6.5 FL (6.5-10.1) Neutrophils (%) (Auto) 82.4 % (45.0-75.0) H Lymphocytes (%) (Auto) 10.5 % (20.0-45.0) L Monocytes (%) (Auto) 6.5 % (1.0-10.0) Eosinophils (%) (Auto) 0.0 % (0.0-3.0) Basophils (%) (Auto) 0.6 % (0.0-2.0) Sodium Level 138 MMOL/L (136-145) Potassium Level 3.9 MMOL/L (3.5-5.1) Chloride Level 104 MMOL/L (98-107) Carbon Dioxide Level 28 MMOL/L (21-32) Anion Gap 6 mmol/L (5-15) Blood Urea Nitrogen 17 mg/dL (7-18) Creatinine 1.1 MG/DL (0.55-1.30) Estimat Glomerular Filtration Rate 49.3 mL/min (>60) Glucose Level 78 MG/DL (74-106) Calcium Level 8.6 MG/DL (8.5-10.1) Phosphorus Level 4.4 MG/DL (2.5-4.9) Magnesium Level 1.5 MG/DL (1.8-2.4) L Total Bilirubin 0.6 MG/DL (0.2-1.0) Aspartate Amino Transf (AST/SGOT) 21 U/L (15-37) Alanine Aminotransferase (ALT/SGPT) 18 U/L (12-78) Alkaline Phosphatase 372 U/L (46-116) H Total Protein 6.2 G/DL (6.4-8.2) L Albumin 2.2 G/DL (3.4-5.0) L Globulin 4.0 g/dL Albumin/Globulin Ratio 0.6 (1.0-2.7) L Vancomycin Level Trough 20.2 ug/mL (5.0-12.0) H Current Medications Medications (Trade) Dose Ordered Sig/Jori Route PRN Reason Start Time Stop Time Status Last Admin Dose Admin Acetaminophen (Tylenol) 650 mg Q4H PRN ORAL Mild Pain or temp over 100.2 08/16/20 10:00 09/14/20 10:14 08/17/20 02:13 Bupropion HCl (Wellbutrin SR) 200 mg TWICE A DAY ORAL 08/12/20 09:00 09/11/20 08:59 08/25/20 09:18 Chlorhexidine Gluconate (Kathryn-Hex 2%) 1 applic DAILY@2000 TOPIC 08/07/20 20:15 11/05/20 20:14 08/24/20 20:12 Citalopram Hydrobromide (CeleXA) 10 mg DAILY ORAL 08/16/20 09:00 09/15/20 08:59 08/25/20 09:18 Dicyclomine HCl (Bentyl) 10 mg QIDPRN PRN ORAL Abdominal cramps 08/17/20 09:30 11/15/20 09:29 Diphenhydramine HCl (Benadryl) 50 mg Q4H PRN IVP Itching/Pruritis 08/13/20 09:15 09/12/20 09:14 Fluconazole (Diflucan) 100 mg DAILY ORAL 08/19/20 09:00 08/26/20 08:59 08/25/20 09:18 Folic Acid (Folate) 1 mg DAILY ORAL 08/16/20 09:00 09/15/20 08:59 08/25/20 09:18 Hydromorphone HCl (Dilaudid) 1 mg Q3H PRN SUBQ Severe Breakthru Pain (>7) 08/21/20 11:39 08/28/20 11:38 Lorazepam (Ativan) 1 mg Q4H PRN SL Muscle Spasm 08/23/20 13:50 08/30/20 13:49 Meloxicam (Mobic) 15 mg DAILY ORAL 08/16/20 09:00 09/15/20 08:59 08/25/20 09:18 Naloxone HCl (Narcan) 0.1 mg Q1M PRN IVP RR<10/min OR SBP<90 mmHg 08/08/20 09:10 11/06/20 09:09 Nystatin (Nystatin) 5 ml QID ORAL 08/23/20 13:00 08/30/20 12:59 08/25/20 12:21 Ondansetron HCl (Zofran ODT) 4 mg Q4H PRN ORAL Nausea & Vomiting 08/24/20 12:00 09/23/20 11:59 Ondansetron HCl (Zofran) 4 mg Q4H PRN IVP Nausea & Vomiting 08/06/20 15:00 09/05/20 14:59 08/25/20 12:49 Oxycodone/ Acetaminophen (Percocet 5-325) 1 tab Q4H PRN ORAL SEVERE PAIN 08/21/20 11:39 08/28/20 11:38 08/25/20 10:09 Pantoprazole (Protonix) 40 mg DAILY IVP 08/07/20 09:00 09/06/20 08:59 08/25/20 09:18 Patient Own Medication (Patient's Own Med) 1 ea DAILY ORAL 08/15/20 09:00 09/14/20 08:59 08/25/20 09:17 Prochlorperazine (Compazine) 10 mg Q6H PRN IVP anxiety 08/15/20 21:45 09/14/20 21:44 08/16/20 21:54 Simethicone (Mylicon) 80 mg QIDPRN PRN NG Abdominal cramps, gas 08/15/20 10:15 11/13/20 10:14 08/24/20 17:23 Trazodone HCl (Desyrel) 200 mg BEDTIME ORAL 08/16/20 21:00 09/14/20 20:59 08/24/20 20:12 Vancomycin HCl (Vanco pharmacy to dose) 1 ea DAILY PRN MISC Per rx protocol 08/18/20 04:30 09/17/20 04:29 Vancomycin HCl 750 mg/Sodium Chloride 275 ml @ 183.333 mls/hr Q12HR IVPB 08/25/20 21:00 08/30/20 20:59 Osmin Bermudez MD Aug 25, 2020 14:19
[2020-08-25] MEDS ORDERED: Lactulose 10gm/15ml UDC ORAL PRN (14:22)
--- NOTE | 2020-08-25 14:30 | General Progress Note ---
Progress Note Progress Note AVSS Very limited ability to mobilize and ambulate independently - needs significant assistance Eating better - TPN d/c'd. Zosyn d/c'd Still on Vanco Abdomen soft Post void residual 58cc Mg 1.5 Imp: Slowly improving - still on IV antibiotics via tunneled central line Plan: Calorie count Lactulose BID prn thick ileostomy effluent Continue IV Vancomycin per ID Maintain as in-patient Mg infusions Lalo Meadows MD Aug 25, 2020 14:30
[2020-08-25 16:00] VITALS: BP 117/61
--- NOTE | 2020-08-25 16:25 | NUR ---
*-*DISCHARGE PLANNING*-* PATIENT HAS BEEN ACCEPTED WITH: ROSA HIGG[facility] P: [phone] ROOM# [id number]
[2020-08-25] MEDS: Simethicone 80mg tab NG PRN (16:43)
--- NOTE | 2020-08-25 19:00 | NUR ---
NURSE NOTES: pt remains stable, pt refused to get up with PT, PT explained to life underwriter that pt kept on asking her to come back later, pt notified life underwriter at 1500 that she was looking forward to therapy , life underwriter explained to pt how PT had notified me every time she did not get up as offered . PT encouraged to use the bedside commode instead of the bed leiva, pt was able to get to the commodeX3 . Pt got up to the chair at [id number] and stayed up for 1 hour . Pt consumed 3, grape juice drinks. PT c/o pain X1 , c/o of gas X1 . Medication given and was effective. Lissette ileo a little thick and dark green, fluids encouraged. PO meal encouraged , will endorse to on coming nurse to monitor ileo output consistency
--- NOTE | 2020-08-25 19:47 | NUR ---
NURSE NOTES: Received report from Jason TRAMMELL. Rounds done. Patient in stable condition.
[2020-08-25 20:00] VITALS: BP 120/65
[2020-08-25] MEDS: Vancomycin 750mg/NS 275ml IVPB SCH ×2 (20:39)
[2020-08-25] MEDS: TraZODone 100mg tab ORAL SCH (20:39)
[2020-08-25] MEDS: Dyna-Hex 2% Top Sol 2oz TOPIC SCH (20:39)
[2020-08-26] VITALS: BP 118/65
--- NOTE | 2020-08-26 00:16 | NUR ---
NURSE NOTES: Reeducated patient in emptying ileostomy bag. Demonstration was done along with verbal instructions. Encouraged patient to attempt, as tolerated. Reinforcement may be needed
[2020-08-26 05:12] LABS: BASOPHILS % (AUTO) 0.3 % (0.0-2.0); HEMATOCRIT 29.8 % (37.0-47.0); HEMOGLOBIN 9.5 G/DL (12.0-16.0); LYMPHOCYTES % (AUTO) 10.8 % (20.0-45.0); MEAN CORPUSCULAR VOLUME 97 FL (80-99); MONOCYTES % (AUTO) 6.2 % (1.0-10.0); NEUTROPHILS % (AUTO) 82.6 % (45.0-75.0); PLATELET COUNT 369 K/UL (150-450); RED BLOOD COUNT 3.08 M/UL (4.20-5.40); RED CELL DISTRIBUTION WIDTH 14.8 % (11.6-14.8); WHITE BLOOD COUNT 10.3 K/UL (4.8-10.8)
[2020-08-26 05:39] LABS: ALBUMIN 2.4 G/DL (3.4-5.0); ALBUMIN/GLOBULIN RATIO 0.5 (1.0-2.7); BILIRUBIN,TOTAL 0.7 MG/DL (0.2-1.0); CALCIUM 8.1 MG/DL (8.5-10.1); CREATININE 1.2 MG/DL (0.55-1.30); PHOSPHORUS 2.8 MG/DL (2.5-4.9); POTASSIUM 3.9 MMOL/L (3.5-5.1)
--- NOTE | 2020-08-26 06:29 | NUR ---
NURSE HAND-OFF: Important Events on Shift: Patient using the bedside commode now for voiding. Noted some leakage of stool around the stoma, reinforced with ostomy barrier/surface grinder tender, otherwise still patent, ileo affluent is thinner. Reinforced teaching about ostomy care and how to empty own ostomy. Will need encouragement and further reinforcement Skin around is clean dry and intact. Total ileo output : 200 mL Urine 950 mL Patient Status: stable Diet: Regular Pending Orders: [] Pending Results/Labs:[] Pending MD notification:[] Latest Vital Signs: Temperature 98.8 , Pulse 94 , B/P 118 /65 , Respiratory Rate 18 , O2 SAT 96 , Room Air, O2 Flow Rate 3.0 . Vital Sign Comment: [] Latest Henry Fall Score: 60 Fall Risk: High Risk Safety Measures: Call light Within Reach, Bed Alarm Zone 1, Side Rails Side Rails x2, Bed position Low and Locked. Fall Precautions: Patient Fall Education Report given to Hali Good RN
[2020-08-26 08:00] VITALS: BP 107/63
--- NOTE | 2020-08-26 08:00 | NUR ---
NURSE NOTES: Received report from Tyrell RN, Pt awake in bed with no s/s of distress. Breathing regular and unlabored on RA. noted with R subclavian catheter running TKO, dressing clean intact, Lissette ileo bag just changed, intact and patent. Encouraged pt to use BSC. Pt verbalized understanding. bed in low position and locked , side rails upX2. Call light within reach. will continue to monitor.
--- NOTE | 2020-08-26 08:18 | NUR ---
NURSE NOTES: During change of shift, ostomy bag was leaking a lot, Changed and cleaned patient. Followed [facility] recommendations in ostomy placement and ostomy care. Will endorse to day shift nurse Kaylie
[2020-08-26] MEDS: Meloxicam 15 MG TAB ORAL SCH (09:00)
[2020-08-26] MEDS ORDERED: Fluconazole 100mg tab ORAL SCH (09:00)
[2020-08-26] MEDS: BuPROPion SR 100mg tab ORAL SCH ×2 (09:00→18:14)
[2020-08-26] MEDS: Vancomycin 750mg/NS 275ml IVPB SCH ×4 (09:00→20:07)
[2020-08-26] MEDS: Simethicone 80mg tab NG PRN ×2 (09:00→16:50)
[2020-08-26] MEDS: Citalopram Hydrobromide 10mg Tab ORAL SCH (09:00)
[2020-08-26] MEDS: Pantoprazole Inj IVP SCH (09:00)
[2020-08-26] MEDS: Nystatin Susp 500,000 units/5ml ORAL SCH ×4 (09:00→20:07)
--- NOTE | 2020-08-26 10:00 | NUR ---
NURSE NOTES: Noted [place] ileo bag was leaking despite changed in this morning and half of output came out from bag. Cleaned pt and changed to new bag. Educated pt to check the ostomy bag often and let the nurse know when the bag is 1/3 full. Pt verbalized understanding.
--- NOTE | 2020-08-26 10:09 | Pulmonology Progress Note ---
Subjective ROS Limited/Unobtainable: Yes Interval Events: None new Constitutional: Denies: fever HEENT: Repors: no symptoms Respiratory: Reports: no symptoms Cardiovascular: Reports: no symptoms Gastrointestinal/Abdominal: Denies: nausea, vomiting, diarrhea Genitourinary: Reports: no symptoms Psychiatric: Denies: depression Skin: Denies: rash Musculoskeletal: Denies: pain Allergies: Coded Allergies: CEFEPIME (Verified Adverse Reaction, Severe, 08/05/20) causes low platlets ADHESIVE TAPE (Verified Adverse Reaction, Intermediate, Rash, 08/27/19) CLEAR TAPE Objective Last 24 Hour Vital Signs Date Time Temp Pulse Resp B/P (MAP) Pulse Ox O2 Delivery O2 Flow Rate FiO2 08/26/20 08:00 98.5 90 18 107/63 (78) 96 08/26/20 00:00 98.8 94 18 118/65 (82) 96 08/25/20 21:00 Room Air 08/25/20 20:00 99.0 93 20 120/65 (83) 97 08/25/20 16:00 98.4 87 16 117/61 (79) 96 08/25/20 12:00 98.7 96 18 106/62 (77) 96 Intake and Output 08/25/20 08/26/20 19:00 07:00 Intake Total 828 ml 598 ml Output Total 1140 ml 1150 ml Balance -312 ml -552 ml Intake Oral 828 ml 598 ml Output Urine Total 1000 ml 950 ml Other 140 ml 200 ml # Voids 6 General Appearance: no acute distress HEENT: normocephalic Respiratory: chest wall non-tender, lungs clear Cardiovascular: normal peripheral pulses Abdomen: normal bowel sounds Microbiology Date/Time Source Procedure Growth Status 08/25/20 12:10 Nasopharynx SARS-CoV-2 RdRp Gene Assay - Final Complete Laboratory Tests 08/26/20 04:50: White Blood Count 10.3, Red Blood Count 3.08L, Hemoglobin 9.5L, Hematocrit 29.8L , Mean Corpuscular Volume 97, Mean Corpuscular Hemoglobin 31.0, Mean Corpuscular Hemoglobin Concent 32.0, Red Cell Distribution Width 14.8, Platelet Count 369, Mean Platelet Volume 6.1L, Neutrophils (%) (Auto) 82.6H, Lymphocytes (%) (Auto) 10.8L, Monocytes (%) (Auto) 6.2, Eosinophils (%) (Auto) 0.0, Basophils (%) (Auto) 0.3, Sodium Level 140, Potassium Level 3.9, Chloride Level 106, Carbon Dioxide Level 28, Anion Gap 6, Blood Urea Nitrogen 18, Creatinine 1.2, Estimat Glomerular Filtration Rate 44.5, Glucose Level 86, Calcium Level 8.1L, Phosphorus Level 2.8, Magnesium Level 2.2, Total Bilirubin 0.7, Aspartate Amino Transf (AST/SGOT) 18, Alanine Aminotransferase (ALT/SGPT) 22, Alkaline Phosphatase 368H, Total Protein 7.2, Albumin 2.4L, Globulin 4.8, Albumin/Globulin Ratio 0.5L Current Medications Medications (Trade) Dose Ordered Sig/Jori Route PRN Reason Start Time Stop Time Status Last Admin Dose Admin Acetaminophen (Tylenol) 650 mg Q4H PRN ORAL Mild Pain or temp over 100.2 08/16/20 10:00 09/14/20 10:14 08/17/20 02:13 Bupropion HCl (Wellbutrin SR) 200 mg TWICE A DAY ORAL 08/12/20 09:00 09/11/20 08:59 08/26/20 09:00 Chlorhexidine Gluconate (Kathryn-Hex 2%) 1 applic DAILY@2000 TOPIC 08/07/20 20:15 11/05/20 20:14 08/25/20 20:39 Citalopram Hydrobromide (CeleXA) 10 mg DAILY ORAL 08/16/20 09:00 09/15/20 08:59 08/26/20 09:00 Dicyclomine HCl (Bentyl) 10 mg QIDPRN PRN ORAL Abdominal cramps 08/17/20 09:30 11/15/20 09:29 Diphenhydramine HCl (Benadryl) 50 mg Q4H PRN IVP Itching/Pruritis 08/13/20 09:15 09/12/20 09:14 Fluconazole (Diflucan) 100 mg DAILY ORAL 08/26/20 09:00 08/26/20 12:00 08/26/20 09:00 Folic Acid (Folate) 1 mg DAILY ORAL 08/16/20 09:00 09/15/20 08:59 08/26/20 09:00 Hydromorphone HCl (Dilaudid) 1 mg Q3H PRN SUBQ Severe Breakthru Pain (>7) 08/21/20 11:39 08/28/20 11:38 Lactulose (Cephulac) 10 gm BIDPRN PRN ORAL thick or no ileostomy output 08/25/20 14:22 09/24/20 14:21 Lorazepam (Ativan) 1 mg Q4H PRN SL Muscle Spasm 08/23/20 13:50 08/30/20 13:49 Meloxicam (Mobic) 15 mg DAILY ORAL 08/16/20 09:00 09/15/20 08:59 08/26/20 09:00 Naloxone HCl (Narcan) 0.1 mg Q1M PRN IVP RR<10/min OR SBP<90 mmHg 08/08/20 09:10 11/06/20 09:09 Nystatin (Nystatin) 5 ml QID ORAL 08/23/20 13:00 08/30/20 12:59 08/26/20 09:00 Ondansetron HCl (Zofran ODT) 4 mg Q4H PRN ORAL Nausea & Vomiting 08/24/20 12:00 09/23/20 11:59 08/25/20 20:40 Ondansetron HCl (Zofran) 4 mg Q4H PRN IVP Nausea & Vomiting 08/06/20 15:00 09/05/20 14:59 08/25/20 12:49 Oxycodone/ Acetaminophen (Percocet 5-325) 1 tab Q4H PRN ORAL SEVERE PAIN 08/21/20 11:39 08/28/20 11:38 08/25/20 10:09 Pantoprazole (Protonix) 40 mg DAILY IVP 08/07/20 09:00 09/06/20 08:59 08/26/20 09:00 Patient Own Medication (Patient's Own Med) 1 ea DAILY ORAL 08/15/20 09:00 09/14/20 08:59 08/26/20 09:00 Prochlorperazine (Compazine) 10 mg Q6H PRN IVP anxiety 08/15/20 21:45 09/14/20 21:44 08/16/20 21:54 Simethicone (Mylicon) 80 mg QIDPRN PRN NG Abdominal cramps, gas 08/15/20 10:15 11/13/20 10:14 08/26/20 09:00 Trazodone HCl (Desyrel) 200 mg BEDTIME ORAL 08/16/20 21:00 09/14/20 20:59 08/25/20 20:39 Vancomycin HCl (Vanco pharmacy to dose) 1 ea DAILY PRN MISC Per rx protocol 08/18/20 04:30 09/17/20 04:29 Vancomycin HCl 750 mg/Sodium Chloride 275 ml @ 183.333 mls/hr Q12HR IVPB 08/25/20 21:00 08/30/20 20:59 08/26/20 09:00 Assessment/Plan Assessment/Plan IMPRESSION: 1. Postoperative fever, now resolved. 2. Status post failed Kock pouch. 3. Status post ileostomy placement. 4. Anxiety. 5. Ulcerative colitis. DISCUSSION: She is saturating well on room air. Antibiotics per Dr. Bermudez. Fever has resolved. Clinically, she is feeling better. I will continue monitor. Hold off on any pulmonary interventions. I will follow carefully. Zenon Montoya Omar Syed MD Aug 26, 2020 10:09
--- NOTE | 2020-08-26 10:37 | General Progress Note ---
Subjective ROS Limited/Unobtainable: Yes Allergies: Coded Allergies: CEFEPIME (Verified Adverse Reaction, Severe, 08/05/20) causes low platlets ADHESIVE TAPE (Verified Adverse Reaction, Intermediate, Rash, 08/27/19) CLEAR TAPE Objective Last 24 Hour Vital Signs Date Time Temp Pulse Resp B/P (MAP) Pulse Ox O2 Delivery O2 Flow Rate FiO2 08/26/20 08:00 98.5 90 18 107/63 (78) 96 08/26/20 00:00 98.8 94 18 118/65 (82) 96 08/25/20 21:00 Room Air 08/25/20 20:00 99.0 93 20 120/65 (83) 97 08/25/20 16:00 98.4 87 16 117/61 (79) 96 08/25/20 12:00 98.7 96 18 106/62 (77) 96 Intake and Output 08/25/20 08/26/20 19:00 07:00 Intake Total 828 ml 598 ml Output Total 1140 ml 1150 ml Balance -312 ml -552 ml Intake Oral 828 ml 598 ml Output Urine Total 1000 ml 950 ml Other 140 ml 200 ml # Voids 6 Laboratory Tests 08/26/20 04:50: White Blood Count 10.3, Red Blood Count 3.08L, Hemoglobin 9.5L, Hematocrit 29.8L , Mean Corpuscular Volume 97, Mean Corpuscular Hemoglobin 31.0, Mean Corpuscular Hemoglobin Concent 32.0, Red Cell Distribution Width 14.8, Platelet Count 369, Mean Platelet Volume 6.1L, Neutrophils (%) (Auto) 82.6H, Lymphocytes (%) (Auto) 10.8L, Monocytes (%) (Auto) 6.2, Eosinophils (%) (Auto) 0.0, Basophils (%) (Auto) 0.3, Sodium Level 140, Potassium Level 3.9, Chloride Level 106, Carbon Dioxide Level 28, Anion Gap 6, Blood Urea Nitrogen 18, Creatinine 1.2, Estimat Glomerular Filtration Rate 44.5, Glucose Level 86, Calcium Level 8.1L, Phosphorus Level 2.8, Magnesium Level 2.2, Total Bilirubin 0.7, Aspartate Amino Transf (AST/SGOT) 18, Alanine Aminotransferase (ALT/SGPT) 22, Alkaline Phosphatase 368H, Total Protein 7.2, Albumin 2.4L, Globulin 4.8, Albumin/Globulin Ratio 0.5L Height (Feet): 5 Height (Inches): 5.00 Weight (Pounds): 126 General Appearance: alert EENT: normal ENT inspection Neck: supple Cardiovascular: normal rate Respiratory/Chest: lungs clear Abdomen: soft, hypoactive bowel sounds, tender Extremities: non-tender Assessment/Plan Assessment/Plan: no event over night pulm in put appreciated on regular diet c/o abd pain c/o leakage from ostomy site ABX per id fu surg recs Adrian Morrison MD Aug 26, 2020 10:36
[2020-08-26 12:00] VITALS: BP 115/67
--- NOTE | 2020-08-26 12:54 | General Progress Note ---
Progress Note Progress Note AVSS Eating a bit better. Two more days of IV Vancomycin Learning ileostomy care and management Abdomen soft I&O, labs okay/stable - albumin up to 2.4 Imp: Improving Plan: complete course of IV Vancomycin per ID Need to remove tunneled central venous catheter prior to discharge Lalo Meadows MD Aug 26, 2020 12:54
--- NOTE | 2020-08-26 15:46 | NUR ---
NURSE NOTES: Noted ostomy bad leaking again. Pt was seen by wound nurse Michael and instructed pt how to change the ostomy bag. Pt participated in the cleaning and applying new bag assisted by primary nurse. Educated pt to empty when bag is 1/3 full. Pt verbalized understanding. Will continue to monitor.
[2020-08-26 16:00] VITALS: BP 109/62
--- NOTE | 2020-08-26 16:03 | NUR ---
CASE MANAGEMENT:REVIEW SI;ENTEROSTOMY MALFUNCTION. PROLONGED ILEUS. 98.8 94 18 118/65 96% ON RA H/H 9.5/29.8 CA 8.1 ALP 368 ALB 2.4 IS;DIFLUCAN PO VANCOMYCIN IV NYSTATIN PO MOBIC PO MED SURG STATUS DCP;SNF PLACEMENT PATIENT ACCEPTED AT [facility] OSTOMY BACK LEAKING WOUND CARE NURSE EDUCATED PATIENT ON CHANGING OSTOMY BAG
[2020-08-26] MEDS: oxyCODONE HCL/Acetaminophen 5/325mg ORAL PRN (18:14)
--- NOTE | 2020-08-26 19:18 | NUR ---
NURSE HAND-OFF: Important Events on Shift:[brook ileo bag changed twice due to leaking, c/o gas discomfort, c/o abdominal pain 04/08, Percocet given one time. Walked hallway twice, Used bedside commode] Patient Status: [stable] Diet: [reg] Pending Orders: [] Pending Results/Labs:[] Pending MD notification:[] Latest Vital Signs: Temperature 98.1 , Pulse 88 , B/P 109 /62 , Respiratory Rate 18 , O2 SAT 96 , Room Air, O2 Flow Rate 3.0 . Vital Sign Comment: [stable] Latest Henry Fall Score: 60 Fall Risk: High Risk Safety Measures: Call light Within Reach, Bed Alarm Zone 1, Side Rails Side Rails x2, Bed position Low and Locked. Fall Precautions: Patient Fall Education Report given to [VALERI Mojica].
--- NOTE | 2020-08-26 19:32 | NUR ---
NURSE NOTES: Received report & pt from VALERI Lott. Pt in melisa, a&ox4, in room air. No s/s of acute distress & c/o 01/06 pain. Ileo appliance bag intact. Right subclavian central line intact & running TKO. Plan of care discussed.
[2020-08-26] MEDS: Dyna-Hex 2% Top Sol 2oz TOPIC SCH (19:48)
[2020-08-26 20:04] VITALS: BP 99/52
[2020-08-26] MEDS: TraZODone 100mg tab ORAL SCH (20:07)
[2020-08-26 23:05] VITALS: BP 98/46
--- NOTE | 2020-08-27 06:37 | NUR ---
NURSE HAND-OFF: Important Events on Shift: NO leakage from ostomy appliance Patient Status: stable Diet: Regular Pending Orders: none Pending Results/Labs: vanco trough 08/27 @ 0800 Pending MD notification: none Latest Vital Signs: Temperature 98.3 , Pulse 88 , B/P 98 /46 , Respiratory Rate 16 , O2 SAT 96 , Room Air, O2 Flow Rate 3.0 . Vital Sign Comment: none Latest Henry Fall Score: 60 Fall Risk: High Risk Safety Measures: Call light Within Reach, Bed Alarm Zone 1, Side Rails Side Rails x2, Bed position Low and Locked. Fall Precautions: Patient Fall Education Report given to . Addendum: 08/27/20 at 0730 by Galina Hairston RN Report given to VALERI Hutchinson.
--- NOTE | 2020-08-27 07:30 | NUR ---
NURSE NOTES: Pt lying in bed w/bed in lowest position and call light within reach. Pt A&Ox4, VSS, and in no apparent distress. Rt subclavian central line intact/asymptomatic & H/L'd and ileo appliance C/D/I. Will continue to monitor.
[2020-08-27 08:00] VITALS: BP 112/65
[2020-08-27] MEDS: Meloxicam 15 MG TAB ORAL SCH (08:15)
[2020-08-27] MEDS: Nystatin Susp 500,000 units/5ml ORAL SCH ×4 (08:15→20:57)
[2020-08-27] MEDS: Pantoprazole Inj IVP SCH (08:15)
[2020-08-27] MEDS: Citalopram Hydrobromide 10mg Tab ORAL SCH (08:15)
[2020-08-27] MEDS: BuPROPion SR 100mg tab ORAL SCH ×2 (08:15→17:49)
--- NOTE | 2020-08-27 10:31 | Pulmonology Progress Note ---
Subjective ROS Limited/Unobtainable: Yes Interval Events: None new Constitutional: Denies: fever HEENT: Repors: no symptoms Respiratory: Reports: no symptoms Cardiovascular: Reports: no symptoms Gastrointestinal/Abdominal: Denies: nausea, vomiting, diarrhea Genitourinary: Reports: no symptoms Psychiatric: Denies: depression Skin: Denies: rash Musculoskeletal: Denies: pain Allergies: Coded Allergies: CEFEPIME (Verified Adverse Reaction, Severe, 08/05/20) causes low platlets ADHESIVE TAPE (Verified Adverse Reaction, Intermediate, Rash, 08/27/19) CLEAR TAPE Objective Last 24 Hour Vital Signs Date Time Temp Pulse Resp B/P (MAP) Pulse Ox O2 Delivery O2 Flow Rate FiO2 08/27/20 08:00 98.2 88 16 112/65 (81) 95 08/26/20 23:05 98.3 88 16 98/46 (63) 96 08/26/20 20:53 Room Air 08/26/20 20:04 98.8 86 16 99/52 (68) 94 08/26/20 18:44 98.1 08/26/20 16:00 98.1 88 18 109/62 (78) 96 08/26/20 12:00 98.2 91 18 115/67 (83) 96 Intake and Output 08/26/20 08/27/20 19:00 07:00 Intake Total 1300 ml 354 ml Output Total 1470 ml 750 ml Balance -170 ml -396 ml Intake Oral 1300 ml 354 ml Output Urine Total 1100 ml 500 ml Other 370 ml 250 ml # Voids 6 General Appearance: no acute distress HEENT: normocephalic Respiratory: chest wall non-tender, lungs clear Cardiovascular: normal peripheral pulses Abdomen: normal bowel sounds Microbiology Date/Time Source Procedure Growth Status 08/25/20 12:10 Nasopharynx SARS-CoV-2 RdRp Gene Assay - Final Complete Laboratory Tests 08/27/20 08:15: Vancomycin Level Trough 25.1H Current Medications Medications (Trade) Dose Ordered Sig/Jori Route PRN Reason Start Time Stop Time Status Last Admin Dose Admin Acetaminophen (Tylenol) 650 mg Q4H PRN ORAL Mild Pain or temp over 100.2 08/16/20 10:00 09/14/20 10:14 08/17/20 02:13 Bupropion HCl (Wellbutrin SR) 200 mg TWICE A DAY ORAL 08/12/20 09:00 09/11/20 08:59 08/27/20 08:15 Chlorhexidine Gluconate (Kathryn-Hex 2%) 1 applic DAILY@2000 TOPIC 08/07/20 20:15 11/05/20 20:14 08/26/20 19:48 Citalopram Hydrobromide (CeleXA) 10 mg DAILY ORAL 08/16/20 09:00 09/15/20 08:59 08/27/20 08:15 Dicyclomine HCl (Bentyl) 10 mg QIDPRN PRN ORAL Abdominal cramps 08/17/20 09:30 11/15/20 09:29 Diphenhydramine HCl (Benadryl) 50 mg Q4H PRN IVP Itching/Pruritis 08/13/20 09:15 09/12/20 09:14 Folic Acid (Folate) 1 mg DAILY ORAL 08/16/20 09:00 09/15/20 08:59 08/27/20 08:15 Lactulose (Cephulac) 10 gm BIDPRN PRN ORAL thick or no ileostomy output 08/25/20 14:22 09/24/20 14:21 Lorazepam (Ativan) 1 mg Q4H PRN SL Muscle Spasm 08/23/20 13:50 08/30/20 13:49 Meloxicam (Mobic) 15 mg DAILY ORAL 08/16/20 09:00 09/15/20 08:59 08/27/20 08:15 Naloxone HCl (Narcan) 0.1 mg Q1M PRN IVP RR<10/min OR SBP<90 mmHg 08/08/20 09:10 11/06/20 09:09 Nystatin (Nystatin) 5 ml QID ORAL 08/23/20 13:00 08/30/20 12:59 08/27/20 08:15 Ondansetron HCl (Zofran ODT) 4 mg Q4H PRN ORAL Nausea & Vomiting 08/24/20 12:00 09/23/20 11:59 08/25/20 20:40 Ondansetron HCl (Zofran) 4 mg Q4H PRN IVP Nausea & Vomiting 08/06/20 15:00 09/05/20 14:59 08/25/20 12:49 Oxycodone/ Acetaminophen (Percocet 5-325) 1 tab Q4H PRN ORAL SEVERE PAIN 08/26/20 15:39 09/02/20 15:38 08/26/20 18:14 Pantoprazole (Protonix) 40 mg DAILY IVP 08/07/20 09:00 09/06/20 08:59 08/27/20 08:15 Patient Own Medication (Patient's Own Med) 1 ea DAILY ORAL 08/15/20 09:00 09/14/20 08:59 08/27/20 09:44 Prochlorperazine (Compazine) 10 mg Q6H PRN IVP anxiety 08/15/20 21:45 09/14/20 21:44 08/16/20 21:54 Simethicone (Mylicon) 80 mg QIDPRN PRN NG Abdominal cramps, gas 08/15/20 10:15 11/13/20 10:14 08/26/20 16:50 Trazodone HCl (Desyrel) 200 mg BEDTIME ORAL 08/16/20 21:00 09/14/20 20:59 08/26/20 20:07 Vancomycin HCl ([facility] pharmacy to dose) 1 ea DAILY PRN MISC Per rx protocol 08/18/20 04:30 09/17/20 04:29 Vancomycin HCl 500 mg/Sodium Chloride 110 ml @ 110 mls/hr Q12HR@0000,1200 IVPB 08/27/20 12:00 09/01/20 11:59 Assessment/Plan Assessment/Plan IMPRESSION: 1. Postoperative fever, now resolved. 2. Status post failed Kock pouch. 3. Status post ileostomy placement. 4. Anxiety. 5. Ulcerative colitis. DISCUSSION: She is saturating well on room air. Antibiotics per Dr. Bermudez. Fever has resolved. Clinically, she is feeling better. I will continue monitor. Hold off on any pulmonary interventions. I will follow carefully. Zenon Montoya Omar Syed MD Aug 27, 2020 10:31
--- NOTE | 2020-08-27 10:48 | NUR ---
RD ASSESSMENT & RECOMMENDATIONS SEE CARE ACTIVITY FOR COMPLETE ASSESSMENT DAILY ESTIMATED NEEDS: Needs based on Surgery / 58.9kg abw 25-35 kcals/kg 7302-5635 total kcals 1-2.0g/kg w/ surgery g protein/kg 59-118g w/ surgery g total protein 25-30 mL/kg 9352-3142 total fluid mLs NUTRITION DIAGNOSIS: Altered GI function R/T h/o malfunctioning ileo, as evidenced by pt unable to intubate, awaiting now s/p pouch endoscopy, on BCIR low residue diet, made NPO again for dilated loops fluid and gas filled per CT scan, s/p kock pouch resection, creation of [place] ileo, diet now advanced and liberalized to regular, TPN to be dc'ed. CURRENT DIET:REGULAR diet PO DIET RECOMMENDATIONS: Maintain liberalized regular diet + continue Ensure Enlive BID ADDITIONAL RECOMMENDATIONS: * Standing wt as able while ambulating for accurate CBW (04/28) standing wt of 135.8 lbs (07/16) Bed wt 130 lbs * Continue Ensure Enlive BID to supplement nutritional needs -> pt requesting chocolate flavor only (350kcal/20g prot each) * Relayed food preferences to kitchen * Monitor PO intake closely * Offer high kcal snacks TID in b/w meals ----- 24 HR KCAL COUNT: D: 50% chicken(100) B: murphy x2(120), 50% angolan muffin(est 65), Jelly(25), Ensure 100%(350) L: 50% veggie lasagna(150), 75% apple pie(225), 25% garlic bread(50) ---- Total kcal intake of 3 peulk=[id number], est 362 kcal/ meals. Pt appears to be meeting est 74% of kcal needs, not sufficient.
--- NOTE | 2020-08-27 11:24 | General Progress Note ---
Progress Note Progress Note AVSS Somewhat stronger but cannot ambulate independently yet. Eating better off TPN Abdomen soft, ileostomy appliance intact Urine 1600 Ileostomy 620 On last day of Vancomycin IV Imp: Improved Plan: Once Vancomycin is d/c'd, observe as in-patient x 48 hours Will remove tunneled central line after antibiotics completed Anticipate transfer to SNF on 08/31 Labs in Lalo Elam MD Aug 27, 2020 11:24
[2020-08-27 12:00] VITALS: BP 94/57
[2020-08-27] MEDS ORDERED: Vancomycin 500 MG in NS 110 ML IVPB SCH (12:00)
--- NOTE | 2020-08-27 12:13 | General Progress Note ---
Subjective ROS Limited/Unobtainable: Yes Allergies: Coded Allergies: CEFEPIME (Verified Adverse Reaction, Severe, 08/05/20) causes low platlets ADHESIVE TAPE (Verified Adverse Reaction, Intermediate, Rash, 08/27/19) CLEAR TAPE Objective Last 24 Hour Vital Signs Date Time Temp Pulse Resp B/P (MAP) Pulse Ox O2 Delivery O2 Flow Rate FiO2 08/27/20 09:00 Room Air 08/27/20 08:00 98.2 88 16 112/65 (81) 95 08/26/20 23:05 98.3 88 16 98/46 (63) 96 08/26/20 20:53 Room Air 08/26/20 20:04 98.8 86 16 99/52 (68) 94 08/26/20 18:44 98.1 08/26/20 16:00 98.1 88 18 109/62 (78) 96 Intake and Output 08/26/20 08/27/20 19:00 07:00 Intake Total 1300 ml 354 ml Output Total 1470 ml 750 ml Balance -170 ml -396 ml Intake Oral 1300 ml 354 ml Output Urine Total 1100 ml 500 ml Other 370 ml 250 ml # Voids 6 Laboratory Tests 08/27/20 08:15: Vancomycin Level Trough 25.1H Height (Feet): 5 Height (Inches): 5.00 Weight (Pounds): 126 General Appearance: no apparent distress EENT: normal ENT inspection Neck: supple Cardiovascular: normal rate Respiratory/Chest: decreased breath sounds Abdomen: hypoactive bowel sounds, tender Extremities: non-tender Assessment/Plan Assessment/Plan: no event over night pulm in put appreciated on regular diet c/o abd pain ABX per id fu surg recs Adrian Morrison MD Aug 27, 2020 12:13
--- NOTE | 2020-08-27 13:15 | NUR ---
NURSE NOTES: Helped pt shower and back to bed w/o incident via wheelchair. Will continue to monitor.
[2020-08-27] MEDS: Simethicone 80mg tab NG PRN (13:26)
--- NOTE | 2020-08-27 14:30 | Infectious Diseases Prog Note ---
Assessment/Plan Assessment/Plan ASSESSMENT AND PLAN: 1. fevers, leukocytosis, ? sepsis, ileus vs bowel obstruction, pelvic fluid collection but aspiration culture negative coag neg staph blood cultures - 3/4 bottles, ? line infection, difficult IV access ? aspiration pna/hcap on chest x-ray - s/p zosyn - s/p vancomycin - discontinue - management per Dr. Meadows - monitor labs, chest x-ray 08/24/20 - improved - clinically improving 2. 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 3. The patient has a history of intra-abdominal abscess and bowel obstruction in the past, status post surgery and drainage. 4. The patient has history of ulcerative colitis. 5. History of proctocolectomy. 6. History of multiple abdominal operations. 7. History of parathyroid adenoma resection. 8. History of spinal surgery. 9. Continue management per Dr. Meadows. 10. Past medical history is noted. 11. Allergies to adhesive tape and cefepime. The cefepime allergy was thrombocytopenia, not a true allergy, more of a side effect. Case was discussed with pharmacy and it should be safe to give Zosyn since the patient was on Unasyn. 12. Social history is negative. 13. Family history is noncontributory. 14. MAR is noted. 15. Case was discussed with RN. 16. Continue treatment per primary and consultants Subjective Constitutional: Denies: fever HEENT: Denies: congestion Respiratory: Denies: shortness of breath Cardiovascular: Denies: chest pain Gastrointestinal/Abdominal: Denies: nausea, vomiting Genitourinary: Reports: other - no decker Neurologic: Denies: headache Psychiatric: Denies: depression Skin: Denies: rash Hematologic: Denies: bleeding Musculoskeletal: Denies: pain Allergies: Coded Allergies: CEFEPIME (Verified Adverse Reaction, Severe, 08/05/20) causes low platlets ADHESIVE TAPE (Verified Adverse Reaction, Intermediate, Rash, 08/27/19) CLEAR TAPE Objective Last 24 Hour Vital Signs Date Time Temp Pulse Resp B/P (MAP) Pulse Ox O2 Delivery O2 Flow Rate FiO2 08/27/20 12:00 98.0 92 16 94/57 (69) 95 08/27/20 09:00 Room Air 08/27/20 08:00 98.2 88 16 112/65 (81) 95 08/26/20 23:05 98.3 88 16 98/46 (63) 96 08/26/20 20:53 Room Air 08/26/20 20:04 98.8 86 16 99/52 (68) 94 08/26/20 18:44 98.1 08/26/20 16:00 98.1 88 18 109/62 (78) 96 Height (Feet): 5 Height (Inches): 5.00 Weight (Pounds): 126 General Appearance: no acute distress HEENT: normocephalic, atraumatic, anicteric, mucous membranes moist Respiratory/Chest: lungs clear, normal breath sounds, no respiratory distress, no accessory muscle use Cardiovascular: normal rate, regular rhythm, no gallop/murmur, no JVD Abdomen: normal bowel sounds, soft, non tender, no organomegaly, non distended Genitourinary: other - no decker Extremities: no cyanosis Skin: no rash Neurologic/Psychiatric: alert, responsive Lymphatic: no neck adenopathy Musculoskeletal: no effusion CT abdomen and pelvis - 08/14/20 - Impression: Postsurgical changes, as described 8.4 x 2 cm gas and fluid collection in the anterior pelvis, may represent a routine postsurgical collection could also be infected. Distended small bowel. Probably secondary to postoperative ileus but distal small bowel obstruction not excludable. Fluid within the vaginal vault. Significance uncertain. Gas within the bladder, likely related to recent instrumentation. Bilateral moderate pleural effusions. Resultant passive atelectasis at both lung bases. Degenerative spondylosis Findings discussed by phone with Dr. Meadows at the time of interpretation Chest x-ray - 08/14/20 - COMPARISON: Chest radiograph August 11, 2020 FINDINGS/IMPRESSION: Enteric feeding tube terminates in the stomach. Right IJ catheter terminates in the superior vena cava. Mild vascular congestion and trace bilateral pleural effusions. The size of the left pleural effusion has improved when compared to August 11, 2020. No pneumothorax. Cardiomegaly. Chest x-ray - 08/19/20 - Procedure: XRAY Chest 1v Procedure: XRAY Chest 1v Reason for study: Reason For Exam: COUGH Comparison films: 08/16/2020. FINDINGS: Right central venous catheter remains in place. Vascularity is mildly prominent. There is slight increase of right infrahilar densities likely developing infiltrates. Cardiac and mediastinal silhouette are within normal limits. Small effusions noted. The bony thorax appear unremarkable. IMPRESSION: Slight increased right infrahilar infiltrate and bilateral small effusions. Chest x-ray - 08/24/20 - Procedure: XRAY Chest 1v EXAM: XR Chest, 1 View CLINICAL HISTORY: INFECT TECHNIQUE: Frontal view of the chest. COMPARISON: Chest radiograph on 08/21/2020 FINDINGS: Hardware: Stable right-sided intravenous catheter. Lungs/pleura: Decreased bibasilar opacities. No focal consolidation. Decreased left pleural effusion. Heart/mediastinum: Borderline size of the cardiac silhouette. Soft tissues: Unremarkable. Bones: No acute fracture. Upper abdomen: Normal. IMPRESSION: Decreased bibasilar opacities. No focal consolidation. Decreased left pleural effusion. Microbiology Date/Time Source Procedure Growth Status 08/25/20 12:10 Nasopharynx SARS-CoV-2 RdRp Gene Assay - Final Complete 08/18/20 05:10 Blood Blood Culture - Preliminary NO GROWTH AFTER 4 DAYS Resulted 08/14/20 15:15 Abdominal Fluid Gram Stain - Final Complete 08/14/20 15:15 Abdominal Fluid Body Fluid Culture - Final NO GROWTH Complete 08/11/20 08:40 Indwelling Cath Urine Culture - Final NO GROWTH AFTER 48 HOURS Complete 07/29/20 12:45 Stool Clostridium difficile Toxin Assay - Final Complete Microbiology Date/Time Source Procedure Growth Status 08/25/20 12:10 Nasopharynx SARS-CoV-2 RdRp Gene Assay - Final Complete Labs Test 08/24/20 17:28 08/25/20 04:45 08/25/20 08:30 08/26/20 04:50 White Blood Count 10.3 K/UL (4.8-10.8) 10.3 K/UL (4.8-10.8) Red Blood Count 2.92 M/UL (4.20-5.40) 3.08 M/UL (4.20-5.40) Hemoglobin 9.2 G/DL (12.0-16.0) 9.5 G/DL (12.0-16.0) Hematocrit 28.4 % (37.0-47.0) 29.8 % (37.0-47.0) Mean Corpuscular Volume 97 FL (80-99) 97 FL (80-99) Mean Corpuscular Hemoglobin 31.5 PG (27.0-31.0) 31.0 PG (27.0-31.0) Mean Corpuscular Hemoglobin Concent 32.4 G/DL (32.0-36.0) 32.0 G/DL (32.0-36.0) Red Cell Distribution Width 14.8 % (11.6-14.8) 14.8 % (11.6-14.8) Platelet Count 397 K/UL (150-450) 369 K/UL (150-450) Mean Platelet Volume 6.5 FL (6.5-10.1) 6.1 FL (6.5-10.1) Neutrophils (%) (Auto) 82.4 % (45.0-75.0) 82.6 % (45.0-75.0) Lymphocytes (%) (Auto) 10.5 % (20.0-45.0) 10.8 % (20.0-45.0) Monocytes (%) (Auto) 6.5 % (1.0-10.0) 6.2 % (1.0-10.0) Eosinophils (%) (Auto) 0.0 % (0.0-3.0) 0.0 % (0.0-3.0) Basophils (%) (Auto) 0.6 % (0.0-2.0) 0.3 % (0.0-2.0) Sodium Level 138 MMOL/L (136-145) 140 MMOL/L (136-145) Potassium Level 3.9 MMOL/L (3.5-5.1) 3.9 MMOL/L (3.5-5.1) Chloride Level 104 MMOL/L (98-107) 106 MMOL/L (98-107) Carbon Dioxide Level 28 MMOL/L (21-32) 28 MMOL/L (21-32) Anion Gap 6 mmol/L (5-15) 6 mmol/L (5-15) Blood Urea Nitrogen 17 mg/dL (7-18) 18 mg/dL (7-18) Creatinine 1.1 MG/DL (0.55-1.30) 1.2 MG/DL (0.55-1.30) Estimat Glomerular Filtration Rate 49.3 mL/min (>60) 44.5 mL/min (>60) Glucose Level 78 MG/DL (74-106) 86 MG/DL (74-106) Calcium Level 8.6 MG/DL (8.5-10.1) 8.1 MG/DL (8.5-10.1) Phosphorus Level 4.4 MG/DL (2.5-4.9) 2.8 MG/DL (2.5-4.9) Magnesium Level 1.5 MG/DL (1.8-2.4) 2.2 MG/DL (1.8-2.4) Total Bilirubin 0.6 MG/DL (0.2-1.0) 0.7 MG/DL (0.2-1.0) Aspartate Amino Transf (AST/SGOT) 21 U/L (15-37) 18 U/L (15-37) Alanine Aminotransferase (ALT/SGPT) 18 U/L (12-78) 22 U/L (12-78) Alkaline Phosphatase 372 U/L (46-116) 368 U/L (46-116) Total Protein 6.2 G/DL (6.4-8.2) 7.2 G/DL (6.4-8.2) Albumin 2.2 G/DL (3.4-5.0) 2.4 G/DL (3.4-5.0) Globulin 4.0 g/dL 4.8 g/dL Albumin/Globulin Ratio 0.6 (1.0-2.7) 0.5 (1.0-2.7) Vancomycin Level Trough 20.2 ug/mL (5.0-12.0) Test 08/27/20 08:15 Vancomycin Level Trough 25.1 ug/mL (5.0-12.0) Laboratory Tests Test 08/27/20 08:15 Vancomycin Level Trough 25.1 ug/mL (5.0-12.0) H Current Medications Medications (Trade) Dose Ordered Sig/Jori Route PRN Reason Start Time Stop Time Status Last Admin Dose Admin Acetaminophen (Tylenol) 650 mg Q4H PRN ORAL Mild Pain or temp over 100.2 08/16/20 10:00 09/14/20 10:14 08/17/20 02:13 Bupropion HCl (Wellbutrin SR) 200 mg TWICE A DAY ORAL 08/12/20 09:00 09/11/20 08:59 08/27/20 08:15 Chlorhexidine Gluconate (Kathryn-Hex 2%) 1 applic DAILY@2000 TOPIC 08/07/20 20:15 11/05/20 20:14 08/26/20 19:48 Citalopram Hydrobromide (CeleXA) 10 mg DAILY ORAL 08/16/20 09:00 09/15/20 08:59 08/27/20 08:15 Dicyclomine HCl (Bentyl) 10 mg QIDPRN PRN ORAL Abdominal cramps 08/17/20 09:30 11/15/20 09:29 Diphenhydramine HCl (Benadryl) 50 mg Q4H PRN IVP Itching/Pruritis 08/13/20 09:15 09/12/20 09:14 Folic Acid (Folate) 1 mg DAILY ORAL 08/16/20 09:00 09/15/20 08:59 08/27/20 08:15 Lactulose (Cephulac) 10 gm BIDPRN PRN ORAL thick or no ileostomy output 08/25/20 14:22 09/24/20 14:21 Lorazepam (Ativan) 1 mg Q4H PRN SL Muscle Spasm 08/23/20 13:50 08/30/20 13:49 Meloxicam (Mobic) 15 mg DAILY ORAL 08/16/20 09:00 09/15/20 08:59 08/27/20 08:15 Naloxone HCl (Narcan) 0.1 mg Q1M PRN IVP RR<10/min OR SBP<90 mmHg 08/08/20 09:10 11/06/20 09:09 Nystatin (Nystatin) 5 ml QID ORAL 08/23/20 13:00 08/30/20 12:59 08/27/20 13:26 Ondansetron HCl (Zofran ODT) 4 mg Q4H PRN ORAL Nausea & Vomiting 08/24/20 12:00 09/23/20 11:59 08/25/20 20:40 Ondansetron HCl (Zofran) 4 mg Q4H PRN IVP Nausea & Vomiting 08/06/20 15:00 09/05/20 14:59 08/25/20 12:49 Oxycodone/ Acetaminophen (Percocet 5-325) 1 tab Q4H PRN ORAL SEVERE PAIN 08/26/20 15:39 09/02/20 15:38 08/26/20 18:14 Pantoprazole (Protonix) 40 mg DAILY IVP 08/07/20 09:00 09/06/20 08:59 08/27/20 08:15 Patient Own Medication (Patient's Own Med) 1 ea DAILY ORAL 08/15/20 09:00 09/14/20 08:59 08/27/20 09:44 Prochlorperazine (Compazine) 10 mg Q6H PRN IVP anxiety 08/15/20 21:45 09/14/20 21:44 08/16/20 21:54 Simethicone (Mylicon) 80 mg QIDPRN PRN NG Abdominal cramps, gas 08/15/20 10:15 11/13/20 10:14 08/27/20 13:26 Trazodone HCl (Desyrel) 200 mg BEDTIME ORAL 08/16/20 21:00 09/14/20 20:59 08/26/20 20:07 Vancomycin HCl ([facility] pharmacy to dose) 1 ea DAILY PRN MISC Per rx protocol 08/18/20 04:30 09/17/20 04:29 Vancomycin HCl 500 mg/Sodium Chloride 110 ml @ 110 mls/hr Q12HR@0000,1200 IVPB 08/27/20 12:00 09/01/20 11:59 08/27/20 13:26 Osmin Bermudez MD Aug 27, 2020 14:30
[2020-08-27 16:00] VITALS: BP 101/59
[2020-08-27] MEDS: Simethicone 80mg tab ORAL PRN ×2 (17:49→23:01)
--- NOTE | 2020-08-27 19:30 | NUR ---
NURSE NOTES: Receive a report from VALERI Hutchinson. Round is done. Pt is awake and alert. Denies any pain at this time. No nausea/bloating noted. Noted leaking around appliance and will be changed as soon as possible. Using BSC. C-line site is intact and dressing kept clean. Call light within reach. Will continue to monitor.
--- NOTE | 2020-08-27 19:30 | NUR ---
NURSE HAND-OFF: Important Events on Shift: Pt ambulated w/PT this AM; pt showered; IV abx D/C'd today; pt's appliance leaking at end of shift. Patient Status: Stable Diet: Regular Latest Vital Signs: Temperature 98.2 , Pulse 89 , B/P 101 /59 , Respiratory Rate 16 , O2 SAT 96 , Room Air, O2 Flow Rate 3.0 . Vital Sign Comment: Stable Latest Henry Fall Score: 60 Fall Risk: High Risk Safety Measures: Call light Within Reach, Bed Alarm Zone 1, Side Rails Side Rails x2, Bed position Low and Locked. Fall Precautions: Patient Fall Education Report given to VALERI Nava.
[2020-08-27 20:00] VITALS: BP 118/62
[2020-08-27] MEDS: Dyna-Hex 2% Top Sol 2oz TOPIC SCH (20:57)
[2020-08-27] MEDS: Doxycycline Monohydrate 100mg ORAL SCH (20:57)
--- NOTE | 2020-08-27 21:00 | NUR ---
NURSE NOTES: Skin intact around stoma but noted redness below stoma. Cooling down with wet towel. Kept clean and dry the skin. Apply new appliance. Pt is tolerating the process with not taking pain medication. Will continue to monitor.
[2020-08-27] MEDS: TraZODone 100mg tab ORAL SCH (22:26)
[2020-08-28] VITALS (7 sets, daily range): BP systolic 103–124; BP diastolic 58–78
--- NOTE | 2020-08-28 03:00 | NUR ---
NURSE NOTES: Pt uses BSC. After taking Simethicone earlier, pt feels less gassy. Release gas out from Lissette ileostomy bag. No leaking noted around appliance. Will continue to monitor.
[2020-08-28 05:39] LABS: BASOPHILS % (AUTO) 0.3 % (0.0-2.0); EOSINOPHILS % (AUTO) 0.1 % (0.0-3.0); HEMOGLOBIN 9.6 G/DL (12.0-16.0); LYMPHOCYTES % (AUTO) 12.7 % (20.0-45.0); MEAN CORPUSCULAR VOLUME 99 FL (80-99); MONOCYTES % (AUTO) 6.6 % (1.0-10.0); NEUTROPHILS % (AUTO) 80.3 % (45.0-75.0); PLATELET COUNT 280 K/UL (150-450); RED BLOOD COUNT 2.93 M/UL (4.20-5.40); RED CELL DISTRIBUTION WIDTH 14.8 % (11.6-14.8); WHITE BLOOD COUNT 8.3 K/UL (4.8-10.8)
[2020-08-28 05:54] LABS: ALANINE AMINOTRANSFERASE 21 U/L (12-78); ALBUMIN 2.5 G/DL (3.4-5.0); ALBUMIN/GLOBULIN RATIO 0.6 (1.0-2.7); ALKALINE PHOSPHATASE 346 U/L (46-116); ASPARTATE AMINO TRANSFERASE 19 U/L (15-37); BILIRUBIN,TOTAL 0.6 MG/DL (0.2-1.0); BLOOD UREA NITROGEN 17 mg/dL (7-18); CALCIUM 8.7 MG/DL (8.5-10.1); CARBON DIOXIDE 29 MMOL/L (21-32); CHLORIDE 106 MMOL/L (98-107); CREATININE 1.1 MG/DL (0.55-1.30); PHOSPHORUS 2.6 MG/DL (2.5-4.9); POTASSIUM 3.9 MMOL/L (3.5-5.1); SODIUM 139 MMOL/L (136-145)
--- NOTE | 2020-08-28 06:00 | NUR ---
NURSE NOTES: No acute distress. Denies pain. No bloating noted. No leaking around ileostomy bag. Will continue to monitor. 12hr output Urine: 1050ml Ileostomy: 165ml-sticky brown
--- NOTE | 2020-08-28 06:47 | NUR ---
NURSE HAND-OFF: Important Events on Shift: Leaking ileostomy bag-changed. Simethicone 1t po x1, using BSC-5x. Patient Status: stable Diet: regular Pending Orders: [-] Pending Results/Labs:[CBC, CMP, Mg, Ph] Pending MD notification:[-] Latest Vital Signs: Temperature 98.1 , Pulse 94 , B/P 118 /78 , Respiratory Rate 18 , O2 SAT 96 , Room Air, O2 Flow Rate 3.0 . Vital Sign Comment: [] Latest Henry Fall Score: 60 Fall Risk: High Risk Safety Measures: Call light Within Reach, Bed Alarm Zone 1, Side Rails Side Rails x2, Bed position Low and Locked. Fall Precautions: Door Sign Patient Fall Education
--- NOTE | 2020-08-28 07:00 | Pulmonology Progress Note ---
Subjective ROS Limited/Unobtainable: Yes Interval Events: None new Constitutional: Denies: fever HEENT: Repors: no symptoms Respiratory: Reports: no symptoms Cardiovascular: Reports: no symptoms Gastrointestinal/Abdominal: Denies: nausea, vomiting Genitourinary: Reports: no symptoms Psychiatric: Denies: depression Skin: Denies: rash Musculoskeletal: Denies: pain Allergies: Coded Allergies: CEFEPIME (Verified Adverse Reaction, Severe, 08/05/20) causes low platlets ADHESIVE TAPE (Verified Adverse Reaction, Intermediate, Rash, 08/27/19) CLEAR TAPE Objective Last 24 Hour Vital Signs Date Time Temp Pulse Resp B/P (MAP) Pulse Ox O2 Delivery O2 Flow Rate FiO2 08/28/20 04:00 98.1 94 18 118/78 (91) 96 08/28/20 00:00 98.7 91 18 117/58 (77) 95 08/27/20 21:00 Room Air 08/27/20 20:00 98.6 83 18 118/62 (80) 97 08/27/20 16:00 98.2 89 16 101/59 (73) 96 08/27/20 12:00 98.0 92 16 94/57 (69) 95 08/27/20 09:00 Room Air 08/27/20 08:00 98.2 88 16 112/65 (81) 95 Intake and Output 08/27/20 08/28/20 19:00 07:00 Intake Total 1020 ml 167 ml Output Total 1335 ml 1215 ml Balance -315 ml -1048 ml Intake Oral 1020 ml 167 ml Output Urine Total 900 ml 1050 ml Other 435 ml 165 ml # Voids 5 General Appearance: no acute distress HEENT: normocephalic Respiratory: chest wall non-tender, lungs clear Cardiovascular: normal peripheral pulses Abdomen: normal bowel sounds Microbiology Date/Time Source Procedure Growth Status 08/25/20 12:10 Nasopharynx SARS-CoV-2 RdRp Gene Assay - Final Complete Laboratory Tests 08/27/20 08:15: Vancomycin Level Trough 25.1H 08/28/20 05:00: White Blood Count 8.3, Red Blood Count 2.93L, Hemoglobin 9.6L, Hematocrit 29.0L, Mean Corpuscular Volume 99, Mean Corpuscular Hemoglobin 32.7H, Mean Corpuscular Hemoglobin Concent 33.0, Red Cell Distribution Width 14.8, Platelet Count 280, Mean Platelet Volume 6.8, Neutrophils (%) (Auto) 80.3H, Lymphocytes (%) (Auto) 12.7L, Monocytes (%) (Auto) 6.6, Eosinophils (%) (Auto) 0.1, Basophils (%) (Auto) 0.3, Sodium Level 139, Potassium Level 3.9, Chloride Level 106, Carbon Dioxide Level 29, Blood Urea Nitrogen 17, Creatinine 1.1, Estimat Glomerular Filtration Rate 49.3, Glucose Level 87, Calcium Level 8.7, Phosphorus Level 2.6, Magnesium Level 1.5L, Total Bilirubin 0.6, Aspartate Amino Transf (AST/SGOT) 19, Alanine Aminotransferase (ALT/SGPT) 21, Alkaline Phosphatase 346H, Total Protein 6.6, Albumin 2.5L, Globulin 4.1, Albumin/Globulin Ratio 0.6L Current Medications Medications (Trade) Dose Ordered Sig/Jori Route PRN Reason Start Time Stop Time Status Last Admin Dose Admin Acetaminophen (Tylenol) 650 mg Q4H PRN ORAL Mild Pain or temp over 100.2 08/16/20 10:00 09/14/20 10:14 08/17/20 02:13 Bupropion HCl (Wellbutrin SR) 200 mg TWICE A DAY ORAL 08/12/20 09:00 09/11/20 08:59 08/27/20 17:49 Chlorhexidine Gluconate (Kathryn-Hex 2%) 1 applic DAILY@2000 TOPIC 08/07/20 20:15 11/05/20 20:14 08/27/20 20:57 Citalopram Hydrobromide (CeleXA) 10 mg DAILY ORAL 08/16/20 09:00 09/15/20 08:59 08/27/20 08:15 Dicyclomine HCl (Bentyl) 10 mg QIDPRN PRN ORAL Abdominal cramps 08/17/20 09:30 11/15/20 09:29 Diphenhydramine HCl (Benadryl) 50 mg Q4H PRN IVP Itching/Pruritis 08/13/20 09:15 09/12/20 09:14 Doxycycline Monohydrate (Doxycycline Monohydrate) 100 mg EVERY 12 HOURS ORAL 08/27/20 21:00 09/03/20 20:59 08/27/20 20:57 Folic Acid (Folate) 1 mg DAILY ORAL 08/16/20 09:00 09/15/20 08:59 08/27/20 08:15 Lactulose (Cephulac) 10 gm BIDPRN PRN ORAL thick or no ileostomy output 08/25/20 14:22 09/24/20 14:21 Lorazepam (Ativan) 1 mg Q4H PRN SL Muscle Spasm 08/23/20 13:50 08/30/20 13:49 Meloxicam (Mobic) 15 mg DAILY ORAL 08/16/20 09:00 09/15/20 08:59 08/27/20 08:15 Naloxone HCl (Narcan) 0.1 mg Q1M PRN IVP RR<10/min OR SBP<90 mmHg 08/08/20 09:10 11/06/20 09:09 Nystatin (Nystatin) 5 ml QID ORAL 08/23/20 13:00 08/30/20 12:59 08/27/20 20:57 Ondansetron HCl (Zofran ODT) 4 mg Q4H PRN ORAL Nausea & Vomiting 08/24/20 12:00 09/23/20 11:59 08/25/20 20:40 Ondansetron HCl (Zofran) 4 mg Q4H PRN IVP Nausea & Vomiting 08/06/20 15:00 09/05/20 14:59 08/25/20 12:49 Oxycodone/ Acetaminophen (Percocet 5-325) 1 tab Q4H PRN ORAL SEVERE PAIN 08/26/20 15:39 09/02/20 15:38 08/26/20 18:14 Pantoprazole (Protonix) 40 mg DAILY IVP 08/07/20 09:00 09/06/20 08:59 08/27/20 08:15 Patient Own Medication (Patient's Own Med) 1 ea DAILY ORAL 08/15/20 09:00 09/14/20 08:59 08/27/20 09:44 Prochlorperazine (Compazine) 10 mg Q6H PRN IVP anxiety 08/15/20 21:45 09/14/20 21:44 08/16/20 21:54 Simethicone (Mylicon) 80 mg QIDPRN PRN ORAL Abdominal cramps, gas 08/27/20 17:30 11/13/20 10:14 08/27/20 23:01 Trazodone HCl (Desyrel) 200 mg BEDTIME ORAL 08/16/20 21:00 09/14/20 20:59 08/27/20 22:26 Assessment/Plan Assessment/Plan IMPRESSION: 1. Postoperative fever, now resolved. 2. Status post failed Kock pouch. 3. Status post ileostomy placement. 4. Anxiety. 5. Ulcerative colitis. DISCUSSION: She is saturating well on room air. Antibiotics per Dr. Bermudez. Fever has resolved. Clinically, she is feeling better. I will continue monitor. Hold off on any pulmonary interventions. I will follow carefully. On IV vanco per ID Plans noted to dc tunnelled catheter after completion of abx Zenon Montoya Omar Syed MD Aug 28, 2020 07:00
--- NOTE | 2020-08-28 07:30 | NUR ---
HAND-OFF: Report given to VALERI Hutchinson.
[2020-08-28] MEDS: BuPROPion SR 100mg tab ORAL SCH ×2 (08:44→18:11)
[2020-08-28] MEDS: Citalopram Hydrobromide 10mg Tab ORAL SCH (08:44)
[2020-08-28] MEDS: Meloxicam 15 MG TAB ORAL SCH (08:45)
[2020-08-28] MEDS: Doxycycline Monohydrate 100mg ORAL SCH ×2 (08:46→20:06)
[2020-08-28] MEDS: Nystatin Susp 500,000 units/5ml ORAL SCH ×4 (08:47→20:07)
[2020-08-28] MEDS: Pantoprazole Inj IVP SCH (08:47)
--- NOTE | 2020-08-28 11:01 | NUR ---
PT WEEKLY PROGRESS NOTE Patient being seen by PT for therapeutic exercises, transfer training and gait training. Patient requires SBA for bed mobility and for transfers with FWW. Patient able to ambulate up to 80 ft with the FWW without requiring sitting rest. Ambulation limited due to weakness and fatigue. Patient will continue to benefit from skilled inpatient PT intervention to increase strength and postural stability for improved level of functional mobility and activity tolerance with transfers and ambulation.
--- NOTE | 2020-08-28 12:27 | General Progress Note ---
Progress Note Progress Note AVSS Eating 60% now. IV antibiotics completed - on Doxycycline po x 5 more days per ID Abdomen soft, flat Still with leaks of ileostomy appliance - may need different product/type of appliance BUN 17 Cr 1.1 Mg 1.5 Phos 2.6 Albumin up 2.5 Imp: Slowly improving - now off IV antibiotics, on po doxycycline Plan: Mg and Phos infusions remove tunneled central catheter tomorrow f/u labs to SNF on 08/31 likely Lalo Meadows MD Aug 28, 2020 12:27
--- NOTE | 2020-08-28 14:07 | General Progress Note ---
Subjective ROS Limited/Unobtainable: Yes Allergies: Coded Allergies: CEFEPIME (Verified Adverse Reaction, Severe, 08/05/20) causes low platlets ADHESIVE TAPE (Verified Adverse Reaction, Intermediate, Rash, 08/27/19) CLEAR TAPE Objective Last 24 Hour Vital Signs Date Time Temp Pulse Resp B/P (MAP) Pulse Ox O2 Delivery O2 Flow Rate FiO2 08/28/20 12:00 98.0 86 18 103/59 (74) 96 08/28/20 09:00 Room Air 08/28/20 08:00 98.1 91 18 124/71 (88) 95 08/28/20 04:00 98.1 94 18 118/78 (91) 96 08/28/20 00:00 98.7 91 18 117/58 (77) 95 08/27/20 21:00 Room Air 08/27/20 20:00 98.6 83 18 118/62 (80) 97 08/27/20 16:00 98.2 89 16 101/59 (73) 96 Intake and Output 08/27/20 08/28/20 19:00 07:00 Intake Total 1020 ml 167 ml Output Total 1335 ml 1215 ml Balance -315 ml -1048 ml Intake Oral 1020 ml 167 ml Output Urine Total 900 ml 1050 ml Other 435 ml 165 ml # Voids 5 Laboratory Tests 08/28/20 05:00: White Blood Count 8.3, Red Blood Count 2.93L, Hemoglobin 9.6L, Hematocrit 29.0L, Mean Corpuscular Volume 99, Mean Corpuscular Hemoglobin 32.7H, Mean Corpuscular Hemoglobin Concent 33.0, Red Cell Distribution Width 14.8, Platelet Count 280, Mean Platelet Volume 6.8, Neutrophils (%) (Auto) 80.3H, Lymphocytes (%) (Auto) 12.7L, Monocytes (%) (Auto) 6.6, Eosinophils (%) (Auto) 0.1, Basophils (%) (Auto) 0.3, Sodium Level 139, Potassium Level 3.9, Chloride Level 106, Carbon Dioxide Level 29, Blood Urea Nitrogen 17, Creatinine 1.1, Estimat Glomerular Filtration Rate 49.3, Glucose Level 87, Calcium Level 8.7, Phosphorus Level 2.6, Magnesium Level 1.5L, Total Bilirubin 0.6, Aspartate Amino Transf (AST/SGOT) 19, Alanine Aminotransferase (ALT/SGPT) 21, Alkaline Phosphatase 346H, Total Protein 6.6, Albumin 2.5L, Globulin 4.1, Albumin/Globulin Ratio 0.6L Height (Feet): 5 Height (Inches): 5.00 Weight (Pounds): 126 General Appearance: alert EENT: normal ENT inspection Neck: supple Cardiovascular: normal rate Respiratory/Chest: decreased breath sounds Abdomen: soft, hypoactive bowel sounds Extremities: non-tender Assessment/Plan Assessment/Plan: no event over night pulm in put appreciated on regular diet ABX per id correct electrolytes fu surg recs Adrian Morrison MD Aug 28, 2020 14:07
[2020-08-28] MEDS: Simethicone 80mg tab ORAL PRN ×3 (14:47→23:05)
[2020-08-28] MEDS: Potassium Phosphate 15mm/250ml 250 ML IVPB SCH ×2 (14:47→20:15)
--- NOTE | 2020-08-28 15:18 | NUR ---
CASE MANAGEMENT:REVIEW SI;ENTEROSTOMY MALFUNCTION. PROLONGED ILEUS. 98.7 94 18 103/59 95% ON RA H/H 9.6/29.0 IS;K PHOSPHATE IV Q4 MAG SULFATE IV DOXYCYCLINE PO Q12 NYSTATIN PO QID MOBIC PO QD MED SURG STATUS DCP;SNF PLACEMENT PATIENT ACCEPTED AT [facility]
[2020-08-28] MEDS ORDERED: Tubing IV Secondary IV ONE (15:34)
[2020-08-28] MEDS ORDERED: NS 275ml ONE (15:34)
--- NOTE | 2020-08-28 19:23 | NUR ---
NURSE HAND-OFF: Important Events on Shift: Pt ambulated w/PT around unit once this morning; still very dependent on nursing staff to help with daily activities such as emptying ileostomy bag. Patient Status: Stable Diet: Regular Latest Vital Signs: Temperature 98.3 , Pulse 90 , B/P 110 /64 , Respiratory Rate 18 , O2 SAT 95 , Room Air, O2 Flow Rate 3.0 . Vital Sign Comment: [] Latest Henry Fall Score: 60 Fall Risk: High Risk Safety Measures: Call light Within Reach, Bed Alarm Zone 1, Side Rails Side Rails x2, Bed position Low and Locked. Fall Precautions: Door Sign Patient Fall Education Report given to VALERI Daniels.
--- NOTE | 2020-08-28 19:48 | NUR ---
nurse's notes: received patient awake alert and oriented; denies pain; assisted to the BSC to empty her ileostomy; 100 ml out; skin intact; in no apparent distress at this time; plan of care discussed with patient who readily agrees to it; will continue to monitor.
[2020-08-28] MEDS: Dyna-Hex 2% Top Sol 2oz TOPIC SCH (20:06)
[2020-08-28] MEDS: TraZODone 100mg tab ORAL SCH (20:07)
--- NOTE | 2020-08-28 20:24 | NUR ---
nurse's notes: complaining of burning and itching while urinating; left VM for Dr. Meadows at 2022; awaiting callback for orders if any.
[2020-08-28] MEDS ORDERED: Phenazopyridine 200mg tab ORAL SCH (21:00)
[2020-08-28 21:40] LABS: APPEARANCE,URINE CLEAR; BILIRUBIN, URINE NEGATIVE (NEGATIVE); GLUCOSE, URINE (UA) NEGATIVE (NEGATIVE); KETONES,URINE NEGATIVE (NEGATIVE); LEUKOCYTE ESTERASE ,URINE NEGATIVE (NEGATIVE); NITRITE,URINE NEGATIVE (NEGATIVE); PH,URINE 5 (4.5-8.0); PROTEIN,URINE NEGATIVE (NEGATIVE); UROBILINOGEN,URINE NORMAL MG/DL (0.0-1.0)
[2020-08-28 21:53] LABS: COLOR,URINE YELLOW
[2020-08-29 04:00] VITALS: BP 129/69
[2020-08-29] MEDS: oxyCODONE HCL/Acetaminophen 5/325mg ORAL PRN (05:14)
--- NOTE | 2020-08-29 06:09 | NUR ---
NURSE HAND-OFF: Important Events on Shift: none Patient Status: stable Diet: see chart Pending Orders: see chart Pending Results/Labs:see chart Pending MD notification:none Latest Vital Signs: Temperature 98.3 , Pulse 90 , B/P 129 /69 , Respiratory Rate 17 , O2 SAT 95 , Room Air, O2 Flow Rate 3.0 . Vital Sign Comment: WNL; afebrile Latest Henry Fall Score: 60 Fall Risk: High Risk Safety Measures: Call light Within Reach, Bed Alarm Zone 1, Side Rails Side Rails x2, Bed position Low and Locked. Fall Precautions: Door Sign Patient Fall Education Report will be given to Jason.
--- NOTE | 2020-08-29 06:10 | NUR ---
nurse's notes: no significant changes noted this shift; pain managed well with ordered oral medication with good results. assisted patient safely [place] [facility] [place] back to bed without any incidents. VSS; afebrile. patient admits itching and burning while urinating is much lesser in degree compared to earlier. requesting not to be awaken prior to end of shift for assistance in emptying [place] ileo; will respect patient's wishes. Addendum: 08/29/20 at 0621 by SERG SLAUGHTER Addendum: Total UOP: 1000 ml Total Ileo output: 225 ml
[2020-08-29 06:12] LABS: ALBUMIN 2.7 G/DL (3.4-5.0); ALBUMIN/GLOBULIN RATIO 0.6 (1.0-2.7); BILIRUBIN,TOTAL 0.7 MG/DL (0.2-1.0); CALCIUM 8.7 MG/DL (8.5-10.1); CREATININE 1.1 MG/DL (0.55-1.30); PHOSPHORUS 3.2 MG/DL (2.5-4.9); POTASSIUM 4.1 MMOL/L (3.5-5.1)
[2020-08-29 06:28] LABS: BASOPHILS % (AUTO) 0.2 % (0.0-2.0); EOSINOPHILS % (AUTO) 0.1 % (0.0-3.0); HEMOGLOBIN 9.9 G/DL (12.0-16.0); LYMPHOCYTES % (AUTO) 14.2 % (20.0-45.0); MEAN CORPUSCULAR VOLUME 98 FL (80-99); MONOCYTES % (AUTO) 6.5 % (1.0-10.0); PLATELET COUNT 320 K/UL (150-450); RED BLOOD COUNT 3.05 M/UL (4.20-5.40); RED CELL DISTRIBUTION WIDTH 15.2 % (11.6-14.8)
--- NOTE | 2020-08-29 07:41 | NUR ---
NURSE NOTES: Received report from Frances RN, rounds made pt sleeping with no s/s of distress , breaths regular unlabored on RA. Pt has R subclavian catheter with dressing clean intact, Lissette ileo on the R lower quad bag intact ,bed in low locked position , side rails upX2 will continue to monitor
[2020-08-29 08:00] VITALS: BP 116/63
[2020-08-29] MEDS: Pantoprazole Inj IVP SCH (08:27)
[2020-08-29] MEDS: Nystatin Susp 500,000 units/5ml ORAL SCH ×4 (08:27→20:27)
[2020-08-29] MEDS: Meloxicam 15 MG TAB ORAL SCH (08:27)
[2020-08-29] MEDS: Citalopram Hydrobromide 10mg Tab ORAL SCH (08:28)
[2020-08-29] MEDS: BuPROPion SR 100mg tab ORAL SCH ×2 (08:28→17:19)
[2020-08-29] MEDS: Doxycycline Monohydrate 100mg ORAL SCH ×2 (08:28→20:27)
[2020-08-29] MEDS ORDERED: Phenazopyridine 200mg tab ORAL SCH ×2 (09:00→13:00)
--- NOTE | 2020-08-29 09:02 | General Progress Note ---
Subjective ROS Limited/Unobtainable: Yes Allergies: Coded Allergies: CEFEPIME (Verified Adverse Reaction, Severe, 08/05/20) causes low platlets ADHESIVE TAPE (Verified Adverse Reaction, Intermediate, Rash, 08/27/19) CLEAR TAPE Objective Last 24 Hour Vital Signs Date Time Temp Pulse Resp B/P (MAP) Pulse Ox O2 Delivery O2 Flow Rate FiO2 08/29/20 08:00 97.9 84 17 116/63 (80) 96 08/29/20 04:00 98.3 90 17 129/69 (89) 95 08/28/20 23:26 98.8 90 18 119/62 (81) 95 08/28/20 21:00 Room Air 08/28/20 20:00 98.1 89 18 118/61 (80) 97 08/28/20 16:00 98.3 90 18 110/64 (79) 95 08/28/20 12:00 98.0 86 18 103/59 (74) 96 Intake and Output 08/28/20 08/29/20 19:00 07:00 Intake Total 1000 ml 1220.0 ml Output Total 1050 ml 1225 ml Balance -50 ml -5.0 ml Intake Oral 1000 ml 720 ml IV Total 500.0 ml Output Urine Total 700 ml 1000 ml Other 350 ml 225 ml # Voids 5 Laboratory Tests 08/28/20 20:55: Urine Color Yellow, Urine Appearance Clear, Urine pH 5, Urine Specific [place] 1.030, Urine Protein Negative, Urine Glucose (UA) Negative, Urine Ketones Negative, Urine Blood Negative, Urine Nitrite Negative, Urine Bilirubin Negative, Urine Urobilinogen Normal, Urine Leukocyte Esterase Negative 08/29/20 05:00: White Blood Count 8.0, Red Blood Count 3.05L, Hemoglobin 9.9L, Hematocrit 30.0L, Mean Corpuscular Volume 98, Mean Corpuscular Hemoglobin 32.3H, Mean Corpuscular Hemoglobin Concent 32.9, Red Cell Distribution Width 15.2H, Platelet Count 320, Mean Platelet Volume 7.6, Neutrophils (%) (Auto) 79.0H, Lymphocytes (%) (Auto) 14.2L, Monocytes (%) (Auto) 6.5, Eosinophils (%) (Auto) 0.1, Basophils (%) (Auto) 0.2, Sodium Level 139, Potassium Level 4.1, Chloride Level 106, Carbon Dioxide Level 27, Anion Gap 6, Blood Urea Nitrogen 14, Creatinine 1.1, Estimat Glomerular Filtration Rate 49.3, Glucose Level 86, Calcium Level 8.7, Phosphorus Level 3.2, Magnesium Level 1.9, Total Bilirubin 0.7, Aspartate Amino Transf (AST/SGOT) 22, Alanine Aminotransferase (ALT/SGPT) 25, Alkaline Phosphatase 333H , Total Protein 7.4, Albumin 2.7L, Globulin 4.7, Albumin/Globulin Ratio 0.6L Height (Feet): 5 Height (Inches): 5.00 Weight (Pounds): 126 General Appearance: alert EENT: normal ENT inspection Neck: supple Cardiovascular: normal rate Respiratory/Chest: decreased breath sounds Abdomen: normal bowel sounds, non tender, soft Extremities: non-tender Assessment/Plan Assessment/Plan: no event over night pulm in put appreciated on regular diet ABX per id mild nausea feels better today fu surg recs Adrian Morrison MD Aug 29, 2020 09:02
--- NOTE | 2020-08-29 10:03 | General Progress Note ---
Progress Note Progress Note AVSS c/o pain and itching with urination - relieved with pyridium. U/A normal, C&S from last night preliminary no growth Eating better. Learning to manage ileostomy care Urine 1700 Ileostomy 575 WBC 8000 Hgb 9.9 Platelets 320,000 BUN 14 Cr 1.1 Phos 3.2 Mg 1.9 alk phos down 333 albumin up 2.7 Imp: Urinary symptoms / etiology - no infection evident so far Plan: Additional IV Mg and Phos infusions today Pyridium prn If stable labs and patient will remove line in AM Anticipate d/c to SNF on 08/31 Lalo Meadows MD Aug 29, 2020 10:03
[2020-08-29] MEDS ORDERED: Potassium Phosphate 15mm/250ml 250 ML IVPB ONE (11:00)
--- NOTE | 2020-08-29 11:29 | Pulmonology Progress Note ---
Subjective ROS Limited/Unobtainable: Yes Interval Events: None new Constitutional: Denies: fever HEENT: Repors: no symptoms Respiratory: Reports: no symptoms Cardiovascular: Reports: no symptoms Gastrointestinal/Abdominal: Denies: nausea, vomiting Genitourinary: Reports: no symptoms Psychiatric: Denies: depression Skin: Denies: rash Musculoskeletal: Denies: pain Allergies: Coded Allergies: CEFEPIME (Verified Adverse Reaction, Severe, 08/05/20) causes low platlets ADHESIVE TAPE (Verified Adverse Reaction, Intermediate, Rash, 08/27/19) CLEAR TAPE Objective Last 24 Hour Vital Signs Date Time Temp Pulse Resp B/P (MAP) Pulse Ox O2 Delivery O2 Flow Rate FiO2 08/29/20 09:00 Room Air 08/29/20 08:00 97.9 84 17 116/63 (80) 96 08/29/20 04:00 98.3 90 17 129/69 (89) 95 08/28/20 23:26 98.8 90 18 119/62 (81) 95 08/28/20 21:00 Room Air 08/28/20 20:00 98.1 89 18 118/61 (80) 97 08/28/20 16:00 98.3 90 18 110/64 (79) 95 08/28/20 12:00 98.0 86 18 103/59 (74) 96 Intake and Output 08/28/20 08/29/20 19:00 07:00 Intake Total 1000 ml 1220.0 ml Output Total 1050 ml 1225 ml Balance -50 ml -5.0 ml Intake Oral 1000 ml 720 ml IV Total 500.0 ml Output Urine Total 700 ml 1000 ml Other 350 ml 225 ml # Voids 5 General Appearance: no acute distress HEENT: normocephalic Respiratory: chest wall non-tender, lungs clear Cardiovascular: normal peripheral pulses Abdomen: normal bowel sounds Microbiology Date/Time Source Procedure Growth Status 08/28/20 20:55 Urine,Clean Catch Urine Culture - Preliminary NO GROWTH Resulted Laboratory Tests 08/28/20 20:55: Urine Color Yellow, Urine Appearance Clear, Urine pH 5, Urine Specific [place] 1.030, Urine Protein Negative, Urine Glucose (UA) Negative, Urine Ketones Negative, Urine Blood Negative, Urine Nitrite Negative, Urine Bilirubin Negative, Urine Urobilinogen Normal, Urine Leukocyte Esterase Negative 08/29/20 05:00: White Blood Count 8.0, Red Blood Count 3.05L, Hemoglobin 9.9L, Hematocrit 30.0L, Mean Corpuscular Volume 98, Mean Corpuscular Hemoglobin 32.3H, Mean Corpuscular Hemoglobin Concent 32.9, Red Cell Distribution Width 15.2H, Platelet Count 320, Mean Platelet Volume 7.6, Neutrophils (%) (Auto) 79.0H, Lymphocytes (%) (Auto) 14.2L, Monocytes (%) (Auto) 6.5, Eosinophils (%) (Auto) 0.1, Basophils (%) (Auto) 0.2, Sodium Level 139, Potassium Level 4.1, Chloride Level 106, Carbon Dioxide Level 27, Anion Gap 6, Blood Urea Nitrogen 14, Creatinine 1.1, Estimat Glomerular Filtration Rate 49.3, Glucose Level 86, Calcium Level 8.7, Phosphorus Level 3.2, Magnesium Level 1.9, Total Bilirubin 0.7, Aspartate Amino Transf (AST/SGOT) 22, Alanine Aminotransferase (ALT/SGPT) 25, Alkaline Phosphatase 333H , Total Protein 7.4, Albumin 2.7L, Globulin 4.7, Albumin/Globulin Ratio 0.6L Current Medications Medications (Trade) Dose Ordered Sig/Jori Route PRN Reason Start Time Stop Time Status Last Admin Dose Admin Acetaminophen (Tylenol) 650 mg Q4H PRN ORAL Mild Pain or temp over 100.2 08/16/20 10:00 09/14/20 10:14 08/17/20 02:13 Bupropion HCl (Wellbutrin SR) 200 mg TWICE A DAY ORAL 08/12/20 09:00 09/11/20 08:59 08/29/20 08:28 Chlorhexidine Gluconate (Kathryn-Hex 2%) 1 applic DAILY@1999 TOPIC 08/07/20 20:15 11/05/20 20:14 08/28/20 20:06 Citalopram Hydrobromide (CeleXA) 10 mg DAILY ORAL 08/16/20 09:00 09/15/20 08:59 08/29/20 08:28 Dicyclomine HCl (Bentyl) 10 mg QIDPRN PRN ORAL Abdominal cramps 08/17/20 09:30 11/15/20 09:29 Diphenhydramine HCl (Benadryl) 50 mg Q4H PRN IVP Itching/Pruritis 08/13/20 09:15 09/12/20 09:14 Doxycycline Monohydrate (Doxycycline Monohydrate) 100 mg EVERY 12 HOURS ORAL 08/27/20 21:00 09/03/20 20:59 08/29/20 08:28 Folic Acid (Folate) 1 mg DAILY ORAL 08/16/20 09:00 09/15/20 08:59 08/29/20 08:28 Lactulose (Cephulac) 10 gm BIDPRN PRN ORAL thick or no ileostomy output 08/25/20 14:22 09/24/20 14:21 Magnesium Sulfate 100 ml @ 100 mls/hr Q1H IVPB 08/29/20 11:00 08/29/20 13:59 08/29/20 11:17 Meloxicam (Mobic) 15 mg DAILY ORAL 08/16/20 09:00 09/15/20 08:59 08/29/20 08:27 Naloxone HCl (Narcan) 0.1 mg Q1M PRN IVP RR<10/min OR SBP<90 mmHg 08/08/20 09:10 11/06/20 09:09 Nystatin (Nystatin) 5 ml QID ORAL 08/23/20 13:00 08/30/20 12:59 08/29/20 08:27 Ondansetron HCl (Zofran ODT) 4 mg Q4H PRN ORAL Nausea & Vomiting 08/24/20 12:00 09/23/20 11:59 08/25/20 20:40 Ondansetron HCl (Zofran) 4 mg Q4H PRN IVP Nausea & Vomiting 08/06/20 15:00 09/05/20 14:59 08/25/20 12:49 Oxycodone/ Acetaminophen (Percocet 5-325) 1 tab Q4H PRN ORAL SEVERE PAIN 08/26/20 15:39 09/02/20 15:38 08/29/20 05:14 Pantoprazole (Protonix) 40 mg DAILY IVP 08/07/20 09:00 09/06/20 08:59 08/29/20 08:27 Patient Own Medication (Patient's Own Med) 1 ea DAILY ORAL 08/15/20 09:00 09/14/20 08:59 10/31/20 08:29 Phenazopyridine HCl (Pyridium) 200 mg TIDPRN PRN ORAL Itching/Pruritis w urination 08/29/20 13:00 11/27/20 12:59 Potassium Phosphate 250 ml @ 62.5 mls/hr ONCE ONCE IVPB 08/29/20 11:00 08/29/20 14:59 08/29/20 11:17 Prochlorperazine (Compazine) 10 mg Q6H PRN IVP anxiety 08/15/20 21:45 09/14/20 21:44 08/16/20 21:54 Simethicone (Mylicon) 80 mg QIDPRN PRN ORAL Abdominal cramps, gas 08/27/20 17:30 11/13/20 10:14 08/28/20 23:05 Trazodone HCl (Desyrel) 200 mg BEDTIME ORAL 08/16/20 21:00 09/14/20 20:59 08/28/20 20:07 Assessment/Plan Assessment/Plan IMPRESSION: 1. Postoperative fever, now resolved. 2. Status post failed Kock pouch. 3. Status post ileostomy placement. 4. Anxiety. 5. Ulcerative colitis. DISCUSSION: She is saturating well on room air. Antibiotics per Dr. Bermudez. Fever has resolved. Clinically, she is feeling better. I will continue monitor. Hold off on any pulmonary interventions. I will follow carefully. On IV vanco per ID Plans noted to dc tunnelled catheter after completion of abx Zenon Montoya Omar Syed MD Aug 29, 2020 11:29
[2020-08-29 12:00] VITALS: BP 98/55
[2020-08-29] MEDS ORDERED: Cathflo Alteplase 2mg Inj INJ ONE (12:30)
[2020-08-29] MEDS ORDERED: Phenazopyridine 200mg tab ORAL PRN (13:00)
--- NOTE | 2020-08-29 14:08 | Infectious Diseases Prog Note ---
Assessment/Plan Assessment/Plan ASSESSMENT AND PLAN: 1. fevers, leukocytosis, ? sepsis, ileus vs bowel obstruction, pelvic fluid collection but aspiration culture negative coag neg staph blood cultures - 3/4 bottles, ? line infection, difficult IV access ? aspiration pna/hcap on chest x-ray - s/p zosyn - s/p vancomycin - discontinue - doxycycline x 5 days - management per Dr. Meadows - communicated with Dr. Meadows about antib iotics - monitor labs, chest x-ray 08/24/20 - improved - clinically improving 2. 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 3. The patient has a history of intra-abdominal abscess and bowel obstruction in the past, status post surgery and drainage. 4. The patient has history of ulcerative colitis. 5. History of proctocolectomy. 6. History of multiple abdominal operations. 7. History of parathyroid adenoma resection. 8. History of spinal surgery. 9. Continue management per Dr. Meadows. 10. Past medical history is noted. 11. Allergies to adhesive tape and cefepime. The cefepime allergy was thrombocytopenia, not a true allergy, more of a side effect. Case was discussed with pharmacy and it should be safe to give Zosyn since the patient was on Unasyn. 12. Social history is negative. 13. Family history is noncontributory. 14. MAR is noted. 15. Case was discussed with RN. 16. Continue treatment per primary and consultants Subjective Constitutional: Denies: fever Respiratory: Denies: shortness of breath Cardiovascular: Denies: chest pain Gastrointestinal/Abdominal: Denies: nausea, vomiting, diarrhea Genitourinary: Reports: other - no decker Neurologic: Denies: headache Psychiatric: Denies: depression Skin: Denies: rash Hematologic: Denies: bleeding Musculoskeletal: Denies: pain Allergies: Coded Allergies: CEFEPIME (Verified Adverse Reaction, Severe, 08/05/20) causes low platlets ADHESIVE TAPE (Verified Adverse Reaction, Intermediate, Rash, 08/27/19) CLEAR TAPE Objective Last 24 Hour Vital Signs Date Time Temp Pulse Resp B/P (MAP) Pulse Ox O2 Delivery O2 Flow Rate FiO2 08/29/20 12:00 98.2 95 18 98/55 (69) 95 08/29/20 09:00 Room Air 08/29/20 08:00 97.9 84 17 116/63 (80) 96 08/29/20 04:00 98.3 90 17 129/69 (89) 95 08/28/20 23:26 98.8 90 18 119/62 (81) 95 08/28/20 21:00 Room Air 08/28/20 20:00 98.1 89 18 118/61 (80) 97 08/28/20 16:00 98.3 90 18 110/64 (79) 95 Height (Feet): 5 Height (Inches): 5.00 Weight (Pounds): 126 General Appearance: no acute distress HEENT: normocephalic, atraumatic, anicteric, mucous membranes moist Respiratory/Chest: lungs clear, normal breath sounds, no respiratory distress, no accessory muscle use Cardiovascular: normal rate, regular rhythm, no gallop/murmur, no JVD Abdomen: normal bowel sounds, soft, non tender, no organomegaly, non distended Genitourinary: other Extremities: no cyanosis Skin: no rash Neurologic/Psychiatric: 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 Distended small bowel. Probably secondary to postoperative ileus but distal small bowel obstruction not excludable. Fluid within the vaginal vault. Significance uncertain. Gas within the bladder, likely related to recent instrumentation. Bilateral moderate pleural effusions. Resultant passive atelectasis at both lung bases. Degenerative spondylosis Findings discussed by phone with Dr. Meadows at the time of interpretation Chest x-ray - 08/14/20 - COMPARISON: Chest radiograph August 11, 2020 FINDINGS/IMPRESSION: Enteric feeding tube terminates in the stomach. Right IJ catheter terminates in the superior vena cava. Mild vascular congestion and trace bilateral pleural effusions. The size of the left pleural effusion has improved when compared to August 11, 2020. No pneumothorax. Cardiomegaly. Chest x-ray - 08/19/20 - Procedure: XRAY Chest 1v Procedure: XRAY Chest 1v Reason for study: Reason For Exam: COUGH Comparison films: 08/16/2020. FINDINGS: Right central venous catheter remains in place. Vascularity is mildly prominent. There is slight increase of right infrahilar densities likely developing infiltrates. Cardiac and mediastinal silhouette are within normal limits. Small effusions noted. The bony thorax appear unremarkable. IMPRESSION: Slight increased right infrahilar infiltrate and bilateral small effusions. Chest x-ray - 08/24/20 - Procedure: XRAY Chest 1v EXAM: XR Chest, 1 View CLINICAL HISTORY: INFECT TECHNIQUE: Frontal view of the chest. COMPARISON: Chest radiograph on 08/21/2020 FINDINGS: Hardware: Stable right-sided intravenous catheter. Lungs/pleura: Decreased bibasilar opacities. No focal consolidation. Decreased left pleural effusion. Heart/mediastinum: Borderline size of the cardiac silhouette. Soft tissues: Unremarkable. Bones: No acute fracture. Upper abdomen: Normal. IMPRESSION: Decreased bibasilar opacities. No focal consolidation. Decreased left pleural effusion. Microbiology Date/Time Source Procedure Growth Status 08/28/20 20:55 Urine,Clean Catch Urine Culture - Preliminary NO GROWTH Resulted 08/25/20 12:10 Nasopharynx SARS-CoV-2 RdRp Gene Assay - Final Complete 08/18/20 05:10 Blood Blood Culture - Preliminary NO GROWTH AFTER 4 DAYS Resulted 08/14/20 15:15 Abdominal Fluid Gram Stain - Final Complete 08/14/20 15:15 Abdominal Fluid Body Fluid Culture - Final NO GROWTH Complete 07/29/20 12:45 Stool Clostridium difficile Toxin Assay - Final Complete Microbiology Date/Time Source Procedure Growth Status 08/28/20 20:55 Urine,Clean Catch Urine Culture - Preliminary NO GROWTH Resulted Laboratory Tests Test 08/28/20 20:55 08/29/20 05:00 Urine Color Yellow Urine Appearance Clear Urine pH 5 (4.5-8.0) Urine Specific [place] 1.030 (1.005-1.035) Urine Protein Negative (NEGATIVE) Urine Glucose (UA) Negative (NEGATIVE) Urine Ketones Negative (NEGATIVE) Urine Blood Negative (NEGATIVE) Urine Nitrite Negative (NEGATIVE) Urine Bilirubin Negative (NEGATIVE) Urine Urobilinogen Normal MG/DL (0.0-1.0) Urine Leukocyte Esterase Negative (NEGATIVE) White Blood Count 8.0 K/UL (4.8-10.8) Red Blood Count 3.05 M/UL (4.20-5.40) L Hemoglobin 9.9 G/DL (12.0-16.0) L Hematocrit 30.0 % (37.0-47.0) L Mean Corpuscular Volume 98 FL (80-99) Mean Corpuscular Hemoglobin 32.3 PG (27.0-31.0) H Mean Corpuscular Hemoglobin Concent 32.9 G/DL (32.0-36.0) Red Cell Distribution Width 15.2 % (11.6-14.8) H Platelet Count 320 K/UL (150-450) Mean Platelet Volume 7.6 FL (6.5-10.1) Neutrophils (%) (Auto) 79.0 % (45.0-75.0) H Lymphocytes (%) (Auto) 14.2 % (20.0-45.0) L Monocytes (%) (Auto) 6.5 % (1.0-10.0) Eosinophils (%) (Auto) 0.1 % (0.0-3.0) Basophils (%) (Auto) 0.2 % (0.0-2.0) Sodium Level 139 MMOL/L (136-145) Potassium Level 4.1 MMOL/L (3.5-5.1) Chloride Level 106 MMOL/L (98-107) Carbon Dioxide Level 27 MMOL/L (21-32) Anion Gap 6 mmol/L (5-15) Blood Urea Nitrogen 14 mg/dL (7-18) Creatinine 1.1 MG/DL (0.55-1.30) Estimat Glomerular Filtration Rate 49.3 mL/min (>60) Glucose Level 86 MG/DL (74-106) Calcium Level 8.7 MG/DL (8.5-10.1) Phosphorus Level 3.2 MG/DL (2.5-4.9) Magnesium Level 1.9 MG/DL (1.8-2.4) Total Bilirubin 0.7 MG/DL (0.2-1.0) Aspartate Amino Transf (AST/SGOT) 22 U/L (15-37) Alanine Aminotransferase (ALT/SGPT) 25 U/L (12-78) Alkaline Phosphatase 333 U/L (46-116) H Total Protein 7.4 G/DL (6.4-8.2) Albumin 2.7 G/DL (3.4-5.0) L Globulin 4.7 g/dL Albumin/Globulin Ratio 0.6 (1.0-2.7) L Current Medications Medications (Trade) Dose Ordered Sig/Jori Route PRN Reason Start Time Stop Time Status Last Admin Dose Admin Acetaminophen (Tylenol) 650 mg Q4H PRN ORAL Mild Pain or temp over 100.2 08/16/20 10:00 09/14/20 10:14 08/17/20 02:13 Bupropion HCl (Wellbutrin SR) 200 mg TWICE A DAY ORAL 08/12/20 09:00 09/11/20 08:59 08/29/20 08:28 Chlorhexidine Gluconate (Kathryn-Hex 2%) 1 applic DAILY@199908/07/20 20:15 11/05/20 20:14 08/28/20 20:06 Citalopram Hydrobromide (CeleXA) 10 mg DAILY ORAL 08/16/20 09:00 09/15/20 08:59 08/29/20 08:28 Dicyclomine HCl (Bentyl) 10 mg QIDPRN PRN ORAL Abdominal cramps 08/17/20 09:30 11/15/20 09:29 Diphenhydramine HCl (Benadryl) 50 mg Q4H PRN IVP Itching/Pruritis 08/13/20 09:15 09/12/20 09:14 Doxycycline Monohydrate (Doxycycline Monohydrate) 100 mg EVERY 12 HOURS ORAL 08/27/20 21:00 09/03/20 20:59 08/29/20 08:28 Folic Acid (Folate) 1 mg DAILY ORAL 08/16/20 09:00 09/15/20 08:59 08/29/20 08:28 Lactulose (Cephulac) 10 gm BIDPRN PRN ORAL thick or no ileostomy output 08/25/20 14:22 09/24/20 14:21 Meloxicam (Mobic) 15 mg DAILY ORAL 08/16/20 09:00 09/15/20 08:59 08/29/20 08:27 Naloxone HCl (Narcan) 0.1 mg Q1M PRN IVP RR<10/min OR SBP<90 mmHg 08/08/20 09:10 11/06/20 09:09 Nystatin (Nystatin) 5 ml QID ORAL 08/23/20 13:00 08/30/20 12:59 08/29/20 12:26 Ondansetron HCl (Zofran ODT) 4 mg Q4H PRN ORAL Nausea & Vomiting 08/24/20 12:00 09/23/20 11:59 08/25/20 20:40 Ondansetron HCl (Zofran) 4 mg Q4H PRN IVP Nausea & Vomiting 08/06/20 15:00 09/05/20 14:59 08/25/20 12:49 Oxycodone/ Acetaminophen (Percocet 5-325) 1 tab Q4H PRN ORAL SEVERE PAIN 08/26/20 15:39 09/02/20 15:38 08/29/20 05:14 Pantoprazole (Protonix) 40 mg DAILY IVP 08/07/20 09:00 09/06/20 08:59 08/29/20 08:27 Patient Own Medication (Patient's Own Med) 1 ea DAILY ORAL 08/15/20 09:00 09/14/20 08:59 08/29/20 08:29 Phenazopyridine HCl (Pyridium) 200 mg TIDPRN PRN ORAL Itching/Pruritis w urination 08/29/20 13:00 11/27/20 12:59 Potassium Phosphate 250 ml @ 62.5 mls/hr ONCE ONCE IVPB 08/29/20 11:00 08/29/20 14:59 08/29/20 11:17 Prochlorperazine (Compazine) 10 mg Q6H PRN IVP anxiety 08/15/20 21:45 09/14/20 21:44 08/16/20 21:54 Simethicone (Mylicon) 80 mg QIDPRN PRN ORAL Abdominal cramps, gas 08/27/20 17:30 11/13/20 10:14 08/28/20 23:05 Trazodone HCl (Desyrel) 200 mg BEDTIME ORAL 08/16/20 21:00 09/14/20 20:59 08/28/20 20:07 Osmin Bermudez MD Aug 29, 2020 14:08
--- NOTE | 2020-08-29 15:42 | NUR ---
NURSE NOTES: Lissette ileo changed by patient with supervision by the teletypewriter installer and wound nurse . Stoma size presently is 1-1/4 . Please do not get more supplies for pt per wound nurse as the the [facility] supplies [facility]. pt should take only the supplies in the room
[2020-08-29 16:00] VITALS: BP 128/60
[2020-08-29] MEDS ORDERED: NS 500ML ONE (17:43)
--- NOTE | 2020-08-29 18:13 | NUR ---
NURSE NOTES: PT remained stable all shift, pt was able to get up with PT, and it was the most she had ambulated in a while per PT, pt also sat up in the chair for lunch and stayed up for about an hour. pt had good PO intake . Pt c/o of feeling anxious after changing Lissette ileo. When asked about reason for anxiety, pt stated she was anxious and sad about going to the residential and also anxious about self care . pt asked for medication and compazine was given Pt did not c/o of pain during shift. Wound care nurse wrote some notes for ostomy supplies and crusting for pt to take upon d/c as a guide and they were put in chart.Will endorse to oncoming nurse. Lissette ileo output 315 Urine output 1400
--- NOTE | 2020-08-29 18:52 | NUR ---
NURSE HAND-OFF: Important Events on Shift: Lissette kimball changed Patient Status: stable Diet: Regular Pending Orders: Pending Results/Labs: Pending MD notification: Latest Vital Signs: Temperature 98.7 , Pulse 92 , B/P 128 /60 , Respiratory Rate 18 , O2 SAT 96 , Room Air, O2 Flow Rate 3.0 . Vital Sign Comment: Latest Henry Fall Score: 60 Fall Risk: High Risk Safety Measures: Call light Within Reach, Bed Alarm Zone 1, Side Rails Side Rails x2, Bed position Low and Locked. Fall Precautions: Door Sign Patient Fall Education Report given to BLUE TRAMMELL.
--- NOTE | 2020-08-29 19:40 | NUR ---
NURSE NOTES: received pt and report from VALERI Gomez. pt alert and oriented x 4 with no acute s/s of distress and no co pain at the moment. central line clean dry and intact and both ports running TKO. pt ileostomy is draining. plan of care discussed.
[2020-08-29 20:00] VITALS: BP 122/66
[2020-08-29] MEDS: Dyna-Hex 2% Top Sol 2oz TOPIC SCH (20:27)
[2020-08-29] MEDS: Simethicone 80mg tab ORAL PRN (20:27)
[2020-08-29] MEDS: TraZODone 100mg tab ORAL SCH (20:28)
--- NOTE | 2020-08-29 22:15 | NUR ---
NURSE NOTES: pt in no acute distress. pt gets out of bed to use bedside commode. tolerates activity well. no co pain at the moment.
[2020-08-30] VITALS: BP 105/56
[2020-08-30 04:00] VITALS: BP 110/60
--- NOTE | 2020-08-30 04:16 | NUR ---
NURSE NOTES: pt vitals stable. through the shift pt has not had any s/s of acute distress and no co pain. pt gets up to bedside commode with minimal to no assist. needs assistance but empties ileo bag on her own.
[2020-08-30 04:44] LABS: ALBUMIN 2.5 G/DL (3.4-5.0); ALBUMIN/GLOBULIN RATIO 0.5 (1.0-2.7); BILIRUBIN,TOTAL 0.9 MG/DL (0.2-1.0); CALCIUM 8.7 MG/DL (8.5-10.1); CREATININE 1.1 MG/DL (0.55-1.30); PHOSPHORUS 2.7 MG/DL (2.5-4.9); POTASSIUM 4.4 MMOL/L (3.5-5.1)
[2020-08-30 04:47] LABS: BASOPHILS % (AUTO) 0.1 % (0.0-2.0); HEMATOCRIT 29.8 % (37.0-47.0); HEMOGLOBIN 9.8 G/DL (12.0-16.0); LYMPHOCYTES % (AUTO) 11.5 % (20.0-45.0); MEAN CORPUSCULAR VOLUME 99 FL (80-99); MONOCYTES % (AUTO) 6.9 % (1.0-10.0); NEUTROPHILS % (AUTO) 81.5 % (45.0-75.0); PLATELET COUNT 335 K/UL (150-450); RED CELL DISTRIBUTION WIDTH 14.6 % (11.6-14.8)
--- NOTE | 2020-08-30 07:36 | NUR ---
NURSE HAND-OFF: Important Events on Shift:safety and intake outputs Patient Status: stable Diet: regular Pending Orders: NA Pending Results/Labs:NA Pending MD notification:NA Latest Vital Signs: Temperature 98.3 , Pulse 98 , B/P 110 /60 , Respiratory Rate 15 , O2 SAT 93 , Room Air, O2 Flow Rate 3.0 . Vital Sign Comment: stable through the shift Latest Henry Fall Score: 60 Fall Risk: High Risk Safety Measures: Call light Within Reach, Bed Alarm Zone 1, Side Rails Side Rails x2, Bed position Low and Locked. Fall Precautions: Door Sign Patient Fall Education Report given to VALERI Avery.
--- NOTE | 2020-08-30 07:47 | General Progress Note ---
Subjective ROS Limited/Unobtainable: Yes Allergies: Coded Allergies: CEFEPIME (Verified Adverse Reaction, Severe, 08/05/20) causes low platlets ADHESIVE TAPE (Verified Adverse Reaction, Intermediate, Rash, 08/27/19) CLEAR TAPE Objective Last 24 Hour Vital Signs Date Time Temp Pulse Resp B/P (MAP) Pulse Ox O2 Delivery O2 Flow Rate FiO2 08/30/20 04:00 98.3 98 15 110/60 (77) 93 08/30/20 00:00 99.2 103 16 105/56 (72) 95 08/29/20 21:00 Room Air 08/29/20 20:00 98.3 89 18 122/66 (84) 95 08/29/20 16:00 98.7 92 18 128/60 (82) 96 08/29/20 12:00 98.2 95 18 98/55 (69) 95 08/29/20 09:00 Room Air 08/29/20 08:00 97.9 84 17 116/63 (80) 96 Intake and Output 08/29/20 08/30/20 19:00 07:00 Intake Total 1111 ml 480 ml Output Total 1715 ml 2365 ml Balance -604 ml -1885 ml Intake Oral 1111 ml 480 ml Output Urine Total 1400 ml 2200 ml Other 315 ml 165 ml # Voids 5 Laboratory Tests 08/30/20 04:00: White Blood Count 8.0, Red Blood Count 3.00L, Hemoglobin 9.8L, Hematocrit 29.8L, Mean Corpuscular Volume 99, Mean Corpuscular Hemoglobin 32.8H, Mean Corpuscular Hemoglobin Concent 33.0, Red Cell Distribution Width 14.6, Platelet Count 335, Mean Platelet Volume 6.5, Neutrophils (%) (Auto) 81.5H, Lymphocytes (%) (Auto) 11.5L, Monocytes (%) (Auto) 6.9, Eosinophils (%) (Auto) 0.0, Basophils (%) (Auto) 0.1, Sodium Level 138, Potassium Level 4.4, Chloride Level 103, Carbon Dioxide Level 28, Anion Gap 7, Blood Urea Nitrogen 12, Creatinine 1.1, Estimat Glomerular Filtration Rate 49.3, Glucose Level 91, Calcium Level 8.7, Phosphorus Level 2.7, Magnesium Level 1.9, Total Bilirubin 0.9, Aspartate Amino Transf (AST/SGOT) 19, Alanine Aminotransferase (ALT/SGPT) 25, Alkaline Phosphatase 300H , Total Protein 7.3, Albumin 2.5L, Globulin 4.8, Albumin/Globulin Ratio 0.5L Height (Feet): 5 Height (Inches): 5.00 Weight (Pounds): 126 General Appearance: alert EENT: normal ENT inspection Neck: normal inspection Cardiovascular: normal peripheral pulses Respiratory/Chest: lungs clear Abdomen: hypoactive bowel sounds, tender Extremities: non-tender Assessment/Plan Assessment/Plan: no event over night on regular diet ABX per id mild nausea feels the same good drainage from the ostomy site fu surg recs Adrian Morrison MD Aug 30, 2020 07:47
[2020-08-30 08:00] VITALS: BP 97/65
--- NOTE | 2020-08-30 08:00 | NUR ---
NURSE NOTES: Received report from Gino TRAMMELL. Patient is awake and oriented, in no apparent distress, reporting no pain but reporting cramping and requested simethicone, flatus passing through RLQ ileostomy, appliance in place with no leaking noted. Right upper chest subclavian central line in place with dry, intact dressing. BSC at bedside. Patient updated on plan of care for the day. Side rails upx2, bed low and locked, call light within reach.
--- NOTE | 2020-08-30 08:16 | Pulmonology Progress Note ---
Subjective ROS Limited/Unobtainable: Yes Interval Events: None new Constitutional: Denies: fever HEENT: Repors: no symptoms Respiratory: Reports: no symptoms Cardiovascular: Reports: no symptoms Gastrointestinal/Abdominal: Denies: nausea, vomiting, diarrhea Genitourinary: Reports: no symptoms Psychiatric: Denies: depression Skin: Denies: rash Musculoskeletal: Denies: pain Allergies: Coded Allergies: CEFEPIME (Verified Adverse Reaction, Severe, 08/05/20) causes low platlets ADHESIVE TAPE (Verified Adverse Reaction, Intermediate, Rash, 08/27/19) CLEAR TAPE Objective Last 24 Hour Vital Signs Date Time Temp Pulse Resp B/P (MAP) Pulse Ox O2 Delivery O2 Flow Rate FiO2 08/30/20 04:00 98.3 98 15 110/60 (77) 93 08/30/20 00:00 99.2 103 16 105/56 (72) 95 08/29/20 21:00 Room Air 08/29/20 20:00 98.3 89 18 122/66 (84) 95 08/29/20 16:00 98.7 92 18 128/60 (82) 96 08/29/20 12:00 98.2 95 18 98/55 (69) 95 08/29/20 09:00 Room Air Intake and Output 08/29/20 08/30/20 19:00 07:00 Intake Total 1111 ml 480 ml Output Total 1715 ml 2365 ml Balance -604 ml -1885 ml Intake Oral 1111 ml 480 ml Output Urine Total 1400 ml 2200 ml Other 315 ml 165 ml # Voids 5 General Appearance: no acute distress HEENT: normocephalic Respiratory: chest wall non-tender, lungs clear Cardiovascular: normal peripheral pulses Abdomen: normal bowel sounds Microbiology Date/Time Source Procedure Growth Status 08/28/20 20:55 Urine,Clean Catch Urine Culture - Final NO GROWTH AFTER 48 HOURS Complete Laboratory Tests 08/30/20 04:00: White Blood Count 8.0, Red Blood Count 3.00L, Hemoglobin 9.8L, Hematocrit 29.8L, Mean Corpuscular Volume 99, Mean Corpuscular Hemoglobin 32.8H, Mean Corpuscular Hemoglobin Concent 33.0, Red Cell Distribution Width 14.6, Platelet Count 335, Mean Platelet Volume 6.5, Neutrophils (%) (Auto) 81.5H, Lymphocytes (%) (Auto) 11.5L, Monocytes (%) (Auto) 6.9, Eosinophils (%) (Auto) 0.0, Basophils (%) (Auto) 0.1, Sodium Level 138, Potassium Level 4.4, Chloride Level 103, Carbon Dioxide Level 28, Anion Gap 7, Blood Urea Nitrogen 12, Creatinine 1.1, Estimat Glomerular Filtration Rate 49.3, Glucose Level 91, Calcium Level 8.7, Phosphorus Level 2.7, Magnesium Level 1.9, Total Bilirubin 0.9, Aspartate Amino Transf (AST/SGOT) 19, Alanine Aminotransferase (ALT/SGPT) 25, Alkaline Phosphatase 300H , Total Protein 7.3, Albumin 2.5L, Globulin 4.8, Albumin/Globulin Ratio 0.5L Current Medications Medications (Trade) Dose Ordered Sig/Jori Route PRN Reason Start Time Stop Time Status Last Admin Dose Admin Acetaminophen (Tylenol) 650 mg Q4H PRN ORAL Mild Pain or temp over 100.2 08/16/20 10:00 09/14/20 10:14 08/17/20 02:13 Bupropion HCl (Wellbutrin SR) 200 mg TWICE A DAY ORAL 08/12/20 09:00 09/11/20 08:59 08/29/20 17:19 Chlorhexidine Gluconate (Kathryn-Hex 2%) 1 applic DAILY@1999 TOPIC 08/07/20 20:15 11/05/20 20:14 08/29/20 20:27 Citalopram Hydrobromide (CeleXA) 10 mg DAILY ORAL 08/16/20 09:00 09/15/20 08:59 08/29/20 08:28 Dicyclomine HCl (Bentyl) 10 mg QIDPRN PRN ORAL Abdominal cramps 08/17/20 09:30 11/15/20 09:29 Diphenhydramine HCl (Benadryl) 50 mg Q4H PRN IVP Itching/Pruritis 08/13/20 09:15 09/12/20 09:14 Doxycycline Monohydrate (Doxycycline Monohydrate) 100 mg EVERY 12 HOURS ORAL 08/27/20 21:00 09/03/20 20:59 08/29/20 20:27 Folic Acid (Folate) 1 mg DAILY ORAL 08/16/20 09:00 09/15/20 08:59 08/29/20 08:28 Lactulose (Cephulac) 10 gm BIDPRN PRN ORAL thick or no ileostomy output 08/25/20 14:22 09/24/20 14:21 Meloxicam (Mobic) 15 mg DAILY ORAL 08/16/20 09:00 09/15/20 08:59 08/29/20 08:27 Naloxone HCl (Narcan) 0.1 mg Q1M PRN IVP RR<10/min OR SBP<90 mmHg 08/08/20 09:10 11/06/20 09:09 Nystatin (Nystatin) 5 ml QID ORAL 08/23/20 13:00 08/30/20 12:59 08/29/20 20:27 Ondansetron HCl (Zofran ODT) 4 mg Q4H PRN ORAL Nausea & Vomiting 08/24/20 12:00 09/23/20 11:59 08/25/20 20:40 Ondansetron HCl (Zofran) 4 mg Q4H PRN IVP Nausea & Vomiting 08/06/20 15:00 09/05/20 14:59 08/25/20 12:49 Oxycodone/ Acetaminophen (Percocet 5-325) 1 tab Q4H PRN ORAL SEVERE PAIN 08/26/20 15:39 09/02/20 15:38 08/29/20 05:14 Pantoprazole (Protonix) 40 mg DAILY IVP 08/07/20 09:00 09/06/20 08:59 08/29/20 08:27 Patient Own Medication (Patient's Own Med) 1 ea DAILY ORAL 08/15/20 09:00 09/14/20 08:59 08/29/20 08:29 Phenazopyridine HCl (Pyridium) 200 mg TIDPRN PRN ORAL Itching/Pruritis w urination 08/29/20 13:00 11/27/20 12:59 Prochlorperazine (Compazine) 10 mg Q6H PRN IVP anxiety 08/15/20 21:45 09/14/20 21:44 08/29/20 17:19 Simethicone (Mylicon) 80 mg QIDPRN PRN ORAL Abdominal cramps, gas 08/27/20 17:30 11/13/20 10:14 08/29/20 20:27 Trazodone HCl (Desyrel) 200 mg BEDTIME ORAL 08/16/20 21:00 09/14/20 20:59 08/29/20 20:28 Assessment/Plan Assessment/Plan IMPRESSION: 1. Postoperative fever, resolved. 2. Status post failed Kock pouch. 3. Status post ileostomy placement. 4. Anxiety. 5. Ulcerative colitis. DISCUSSION: She is saturating well on room air. Antibiotics per Dr. Bermudez. Fever has resolved. Clinically, she is feeling better. I will continue monitor. Hold off on any pulmonary interventions. I will follow carefully. On abx per ID No fever or leucocytosis Plans noted to dc tunnelled catheter after completion of abx Zenon Montoya Omar Syed MD Aug 30, 2020 08:16
[2020-08-30] MEDS: Simethicone 80mg tab ORAL PRN ×3 (09:00→17:43)
[2020-08-30] MEDS: Doxycycline Monohydrate 100mg ORAL SCH ×2 (09:00→20:22)
[2020-08-30] MEDS: BuPROPion SR 100mg tab ORAL SCH ×2 (09:00→17:43)
[2020-08-30] MEDS: Nystatin Susp 500,000 units/5ml ORAL SCH (09:00)
[2020-08-30] MEDS: Citalopram Hydrobromide 10mg Tab ORAL SCH (09:00)
[2020-08-30] MEDS: Pantoprazole Inj IVP SCH (09:00)
[2020-08-30] MEDS: Meloxicam 15 MG TAB ORAL SCH (09:00)
[2020-08-30] MEDS ORDERED: LORazepam 1mg tab ORAL PRN (09:45)
--- NOTE | 2020-08-30 09:55 | NUR ---
NURSE NOTES: Tunneled central line removed by and no signs of bleeding. Patient tolerated procedure well. Will continue to monitor.
--- NOTE | 2020-08-30 09:57 | General Progress Note ---
Progress Note Progress Note AVSS Stronger and ambulating short distances unassisted now. Eating 60% Abdomen soft Labs and I&O all stable/satisfactory Tunneled central line removed Imp: Improved Plan; Discharge to SNF in AM Advised re follow-up post-SNF, supplies, stoma care, limitations, instructions all discussed Lalo Meadows MD Aug 30, 2020 09:57
[2020-08-30] MEDS ORDERED: DOXYCYCLINE MO100 MG ORAL (11:36)
[2020-08-30] MEDS ORDERED: FOLIC ACID1 MG ORAL (11:37)
[2020-08-30] MEDS ORDERED: DICYCLOMIN10 MG/5 M1 PO (11:40)
[2020-08-30] MEDS ORDERED: LACTULOSE10 GM/153 PO (11:41)
[2020-08-30] MEDS ORDERED: ZOFRAN4 M3 ORAL (11:42)
[2020-08-30] MEDS ORDERED: PHENAZOPYRIDIN200 MG ORAL (11:43)
[2020-08-30] MEDS ORDERED: SIMETHICONE80 MG ORAL (11:44)
[2020-08-30] MEDS ORDERED: ATIVAN1 MG ORAL (11:45)
[2020-08-30 12:00] VITALS: BP 100/68
[2020-08-30 16:00] VITALS: BP 105/72
--- NOTE | 2020-08-30 19:14 | NUR ---
NURSE NOTES: received pt and report from VALERI Avery. pt alert and oriented x 4 with no acute s/s of distress and no co pain at the moment. ileostomy site noted clean and draining. Central line insertion site clean and with no signs of infection. plan of care discussed.
--- NOTE | 2020-08-30 19:34 | NUR ---
NURSE HAND-OFF: Important Events on Shift: Patient ambulated independently, central line removed. Total ileo output: 450mL Total urine output: 600mL Patient Status: stable Diet: regular Pending Orders: Discharge 08/31/2020 Pending Results/Labs: N/A Pending MD notification: N/A Latest Vital Signs: Temperature 99.4 , Pulse 91 , B/P 105 /72 , Respiratory Rate 16 , O2 SAT 95 , Room Air, O2 Flow Rate 3.0 . Vital Sign Comment: VS stable Latest Henry Fall Score: 50 Fall Risk: High Risk Safety Measures: Call light Within Reach, Bed Alarm Zone 1, Side Rails Side Rails x2, Bed position Low and Locked. Fall Precautions: Door Sign Patient Fall Education Report given to Gino TRAMMELL.
[2020-08-30 19:35] VITALS: BP 121/63
[2020-08-30] MEDS: TraZODone 100mg tab ORAL SCH (20:23)
[2020-08-31] MEDS: oxyCODONE HCL/Acetaminophen 5/325mg ORAL PRN (00:52)
[2020-08-31 00:55] VITALS: BP 115/62
--- NOTE | 2020-08-31 00:56 | NUR ---
NURSE NOTES: pt got up to use beside commode to pee and empty ileo. pt observed moaning and facial grimacing with co pain in back and abdomen. vital signs taken, percocet given. will monitor pain throughout the shift.
[2020-08-31 04:00] VITALS: BP 120/60
--- NOTE | 2020-08-31 05:49 | NUR ---
NURSE NOTES: pt stable throughout the night. got up from bed multiple times to use bedside commode with no assist and tolerated well. pain medication given x 1 for moderate pain in the back and abdominal region. alert and oriented x 4 and with no acute s/s of distress at anytime during shift.
--- NOTE | 2020-08-31 07:30 | NUR ---
NURSE NOTES: Pt lying in bed w/bed in lowest position and call light within reach. Pt A&Ox4, VSS, and in no apparent distress. Pt has no IV access and scheduled to be D/C'd this AM to [facility]. Pt would like to continue sleeping. Will continue to monitor. Addendum: 08/31/20 at 1052 by DEBO MARROQUIN RN Lisstete ileostomy is C/D/I
--- NOTE | 2020-08-31 07:40 | NUR ---
NURSE HAND-OFF: Important Events on Shift: pain medication x 1 for moderate pain to the back and abdomen Patient Status: stable Diet: regular Pending Orders: NA Pending Results/Labs: NA Pending MD notification: NA Latest Vital Signs: Temperature 98.0 , Pulse 82 , B/P 120 /60 , Respiratory Rate 15 , O2 SAT 96 , Room Air, O2 Flow Rate 3.0 . Vital Sign Comment: stable through the shift Latest Henry Fall Score: 50 Fall Risk: High Risk Safety Measures: Call light Within Reach, Bed Alarm Zone 1, Side Rails Side Rails x2, Bed position Low and Locked. Fall Precautions: Door Sign Patient Fall Education Report given to VALERI Hutchinson.
[2020-08-31 08:00] VITALS: BP 114/67
[2020-08-31] MEDS: Doxycycline Monohydrate 100mg ORAL SCH (09:35)
[2020-08-31] MEDS: BuPROPion SR 100mg tab ORAL SCH (09:35)
[2020-08-31] MEDS: Meloxicam 15 MG TAB ORAL SCH (09:36)
[2020-08-31] MEDS: Pantoprazole Inj IVP SCH (09:36)
[2020-08-31] MEDS: Citalopram Hydrobromide 10mg Tab ORAL SCH (09:36)
--- NOTE | 2020-08-31 09:52 | General Progress Note ---
Subjective ROS Limited/Unobtainable: No Allergies: Coded Allergies: CEFEPIME (Verified Adverse Reaction, Severe, 08/05/20) causes low platlets ADHESIVE TAPE (Verified Adverse Reaction, Intermediate, Rash, 08/27/19) CLEAR TAPE Objective Last 24 Hour Vital Signs Date Time Temp Pulse Resp B/P (MAP) Pulse Ox O2 Delivery O2 Flow Rate FiO2 08/31/20 08:00 98.4 92 15 114/67 (83) 96 08/31/20 04:00 98.0 82 15 120/60 (80) 96 08/31/20 00:55 99.3 105 17 115/62 (79) 96 08/30/20 19:45 Room Air 08/30/20 19:35 99.0 90 16 121/63 (82) 96 08/30/20 16:00 99.4 90 16 105/72 (83) 95 08/30/20 12:00 98.9 91 16 100/68 (79) 95 Intake and Output 08/30/20 08/31/20 19:00 07:00 Intake Total 974 ml 720 ml Output Total 1050 ml 1190 ml Balance -76 ml -470 ml Intake Oral 974 ml 720 ml Output Urine Total 600 ml 950 ml Other 450 ml 240 ml # Voids 4 Height (Feet): 5 Height (Inches): 5.00 Weight (Pounds): 126 General Appearance: alert EENT: normal ENT inspection Neck: supple Cardiovascular: normal rate Respiratory/Chest: decreased breath sounds Abdomen: normal bowel sounds, non tender, soft Extremities: non-tender Assessment/Plan Assessment/Plan: no event over night on regular diet ABX per id mild nausea feels better good drainage from the ostomy site fu surg recs pending dc for today Adrian Morrison MD Aug 31, 2020 09:52
--- NOTE | 2020-08-31 10:37 | NUR ---
*-*DISCHARGE PLANNED*-* PATIENT HAS BEEN ACCEPTED AND WILL BE DISCHARGE BACK TO: [facility] P: [phone] NURSE TO NURSE REPORT ROOM# 204 [facility] TRANSP[facility] SET UP FOR 12:30PM S/W NICKI [id number] S/W PATIENCE SISTER BENNIE PEREZ, WHO IS IN AGREEMENT WITH DISCHARGE ORDER.
--- NOTE | 2020-08-31 10:37 | Pulmonology Progress Note ---
Subjective ROS Limited/Unobtainable: No Interval Events: None new Constitutional: Denies: fever HEENT: Repors: no symptoms Respiratory: Reports: no symptoms Cardiovascular: Reports: no symptoms Gastrointestinal/Abdominal: Denies: nausea, vomiting, diarrhea Genitourinary: Reports: no symptoms Psychiatric: Denies: depression Skin: Denies: rash Musculoskeletal: Denies: pain Allergies: Coded Allergies: CEFEPIME (Verified Adverse Reaction, Severe, 08/05/20) causes low platlets ADHESIVE TAPE (Verified Adverse Reaction, Intermediate, Rash, 08/27/19) CLEAR TAPE Objective Last 24 Hour Vital Signs Date Time Temp Pulse Resp B/P (MAP) Pulse Ox O2 Delivery O2 Flow Rate FiO2 08/31/20 09:00 Room Air 08/31/20 08:00 98.4 92 15 114/67 (83) 96 08/31/20 04:00 98.0 82 15 120/60 (80) 96 08/31/20 00:55 99.3 105 17 115/62 (79) 96 08/30/20 19:45 Room Air 08/30/20 19:35 99.0 90 16 121/63 (82) 96 08/30/20 16:00 99.4 90 16 105/72 (83) 95 08/30/20 12:00 98.9 91 16 100/68 (79) 95 Intake and Output 08/30/20 08/31/20 19:00 07:00 Intake Total 974 ml 720 ml Output Total 1050 ml 1190 ml Balance -76 ml -470 ml Intake Oral 974 ml 720 ml Output Urine Total 600 ml 950 ml Other 450 ml 240 ml # Voids 4 General Appearance: no acute distress HEENT: normocephalic Respiratory: chest wall non-tender, lungs clear Cardiovascular: normal peripheral pulses Abdomen: normal bowel sounds Microbiology Date/Time Source Procedure Growth Status 08/28/20 20:55 Urine,Clean Catch Urine Culture - Final NO GROWTH AFTER 48 HOURS Complete Current Medications Medications (Trade) Dose Ordered Sig/Jori Route PRN Reason Start Time Stop Time Status Last Admin Dose Admin Acetaminophen (Tylenol) 650 mg Q4H PRN ORAL Mild Pain or temp over 100.2 08/16/20 10:00 09/14/20 10:14 08/17/20 02:13 Bupropion HCl (Wellbutrin SR) 200 mg TWICE A DAY ORAL 08/12/20 09:00 09/11/20 08:59 08/31/20 09:35 Citalopram Hydrobromide (CeleXA) 10 mg DAILY ORAL 08/16/20 09:00 09/15/20 08:59 08/31/20 09:36 Dicyclomine HCl (Bentyl) 10 mg QIDPRN PRN ORAL Abdominal cramps 08/17/20 09:30 11/15/20 09:29 Diphenhydramine HCl (Benadryl) 50 mg Q4H PRN IVP Itching/Pruritis 08/13/20 09:15 09/12/20 09:14 Doxycycline Monohydrate (Doxycycline Monohydrate) 100 mg EVERY 12 HOURS ORAL 08/27/20 21:00 09/03/20 20:59 08/31/20 09:35 Folic Acid (Folate) 1 mg DAILY ORAL 08/16/20 09:00 09/15/20 08:59 08/31/20 09:36 Lactulose (Cephulac) 10 gm BIDPRN PRN ORAL thick or no ileostomy output 08/25/20 14:22 09/24/20 14:21 Lorazepam (Ativan) 1 mg Q6H PRN ORAL For Anxiety 08/30/20 09:45 09/06/20 09:44 Meloxicam (Mobic) 15 mg DAILY ORAL 08/16/20 09:00 09/15/20 08:59 08/31/20 09:36 Naloxone HCl (Narcan) 0.1 mg Q1M PRN IVP RR<10/min OR SBP<90 mmHg 08/08/20 09:10 11/06/20 09:09 Ondansetron HCl (Zofran ODT) 4 mg Q4H PRN ORAL Nausea & Vomiting 08/24/20 12:00 09/23/20 11:59 08/25/20 20:40 Ondansetron HCl (Zofran) 4 mg Q4H PRN IVP Nausea & Vomiting 08/06/20 15:00 09/05/20 14:59 08/25/20 12:49 Oxycodone/ Acetaminophen (Percocet 5-325) 1 tab Q4H PRN ORAL SEVERE PAIN 08/26/20 15:39 09/02/20 15:38 08/31/20 00:52 Pantoprazole (Protonix) 40 mg DAILY IVP 08/07/20 09:00 09/06/20 08:59 08/30/20 09:00 Patient Own Medication (Patient's Own Med) 1 ea DAILY ORAL 08/15/20 09:00 09/14/20 08:59 08/31/20 09:35 Phenazopyridine HCl (Pyridium) 200 mg TIDPRN PRN ORAL Itching/Pruritis w urination 08/29/20 13:00 11/27/20 12:59 Simethicone (Mylicon) 80 mg QIDPRN PRN ORAL Abdominal cramps, gas 08/27/20 17:30 11/13/20 10:14 08/30/20 17:43 Trazodone HCl (Desyrel) 200 mg BEDTIME ORAL 08/16/20 21:00 09/14/20 20:59 08/30/20 20:23 Assessment/Plan Assessment/Plan IMPRESSION: 1. Postoperative fever, resolved. 2. Status post failed Kock pouch. 3. Status post ileostomy placement. 4. Anxiety. 5. Ulcerative colitis. DISCUSSION: She is saturating well on room air. Dc today Tunneled catheter removed per RN Zenon Montoya Omar Syed MD Aug 31, 2020 10:37
[2020-08-31 12:00] VITALS: BP 111/70
--- NOTE | 2020-08-31 12:29 | NUR ---
NURSE NOTES: Called [facility] and gave report to Frederic; pt scheduled to be transported at 1230 and is going to Rm [id number].
--- NOTE | 2020-08-31 13:49 | NUR ---
NURSE NOTES: Pt discharged via ambulance to [facility] w/all belongings accounted for. Ostomy supplies left behind nurses' station for sister to p/u.
--- NOTE | 2020-09-01 08:02 | Discharge Summary ---
Discharge Summary Hospital Course Date of Admission Jul 15, 2020 at 13:42 Date of Discharge Aug 31, 2020 at 13:40 Admitting Diagnosis BCIR Malfunction Reason for Hospitalization: catheter malfiucntioning, need surgical intervention HPI Mulu Horner is a 69 year old female who was admitted on Jul 15, 2020 at 13:42 for Calderon Continent Intestinal Nuang[place] Malfunction 69-year-old female who presents with inability to catheterize her Kock pouch continent ileostomy to evacuate stool and gas for approximately 15 hours despite trying multiple catheters and positions. She has a complicated history of abdominal surgery. She was advised to come to the emergency room to be admitted to have a catheter inserted and then will need to undergo Kock pouch endoscopy. The patient has a past history of ulcerative colitis and has previously undergone proctocolectomy with Kock pouch with operation for bowel obstruction, revision of her pouch in 07/2019 and more recently laparotomy with small-bowel resection and release of severe high-grade partial small-bowel obstruction due to dense adhesions and a small chronic intra-abdominal abscess on April 29, 2020 with a prolonged hospital stay. All her operations will be listed at the end of this dictation. Since the patient was unable to intubate, she severely limited her oral intake to avoid distention, nausea, and vomiting. Consultations Dr. Bermudez -ID consult Dr. Pope - pulmonary consult Dr. Morrison- GI consult Procedures s/p 07/16/[address] Dori Tao pouch continent ileostomy pouch endoscopy. s/p 07/20/[address] Morrison Pouchoscopy with Busch placement in the pouch. s/p 08/04/[address] Morrison Pouchoscopy. s/p 08/07/[address] Meadows Resection of failed Kock pouch with creation of conventional Lissette ileostomy. Hospital Course patient admitted preadmission medication continued patient started on IV hydration patient subsequently undergone on 07/16 continent ileostomy pouch endoscopy ; unable to intubate due to pouch malfunction indwelling catheter was left to continuous drainage PICC line was placed patient started on TPN and was prepared for surgery PICC line had occlusion of distal axillary vein with collaterals, and subsequently was discontinued , TPN changed to PPN CT scan of the abdomen showed postsurgical changes of the bowel with prior colectomy. Catheter/tube again noted within the pouch containing fecal material in the pelvis. Mild wall thickening of this pouch could represent infectious/inflammatory change. Distended small bowel. Probably secondary to postoperative ileus but distal small bowel obstruction not excludable. patient started on Cipro and Flagyl GI specialist consulted patient subsequently undergone pouchoscopy with Busch placement in the pouch on 07/22 TPN was discontinued and 07/23 patient started on supervised/teaching plugging of Kock pouch catheter every 3 4 hours with emptying and flushing pain management was addressed labs, intake and output closely monitored indwelling pouch catheter was maintained in place with secure taping stool for C. difficile was negative patient started on trial for plugging pouch catheter continuously . patient to drain contents every 3 hours nightly and as needed pouch and Ativan supervised "pouch management. Strict intake and output maintain patient was follow-up with the labs patient was clinically improving but developed abdominal pain patient apparently was taking magnesium oxide 3 times a day magnesium oxide. Patient received mild infusion via IV intermittent emptying of 4 pouch with flushing catheter and then plugging continuously maintain patient developed emesis with abdominal cramps continuous drainage of call pouch ileal catheter to gravity drainage was resumed patient started on the IV fluids antiemetic provided as needed repeated stool for C. difficile was negative. Was replaced patient was eating better RN supervised the clock called pouch ileal catheter and drain every 3 hours were resumed and tail Bentyl provided as needed for cramping IV fluids discontinued Patient noted to have a distended abdomen Bentyl was stopped at pouch catheter was placed to medium intermittent suction patient started on the IV fluids vi tamin C and grape juice provided to clean effluent pain management was addressed as needed abdominal pain continued despite present persisted despite continuous drainage of coke pouch patient was made n.p.o. fluids magnesium further replaced and a stat CT of the abdomen and pelvis was done possible partial obstruction in the right lower quadrant near the anastomosis. Patient started on empiric antibiotic for possible along the catheter tract infection. Local pouch output overnight likely resistance to flushing catheter was removed surgeon directed inserted 24 [place] 40 directly into the pouch and evacuation 450 cc of effluent. Abdominal pain and distention improved after decompressing pouch patient started on clear liquid diet antibiotic continued patient subsequently undergone Kock pouch endoscopy on 08 05 on 08 04 found to have pouch outlet obstruction status post drainage placement Another PICC line inserted patient started on TPN with planned surgery for the morning with stoma revision in depth possible laparotomy with revision of Kock pouch. Full discussion with the patient regarding impending surgery including risk and benefits patient consented to surgery patient subsequently undergone on 08/06 resection of failed Kock pouch with creation of conventional Lissette ileostomy during procedure found t prolapse of the Kock pouch nipple valve into the access segment, but not to the stomach, with severe dense adhesion and inability to reconstruct the pouch safely postoperatively pain management was addressed with FILE CLERK patient initially had a Delta-Rodríguez labs, intake and output clsoely monitored patient was NPO, TPN continued FILE CLERK basal infusion was later discontinued Busch was continued labs revealed severe iron deficiency anemia and borderline folate and B12 patient started on Venofer. patient also received t B12 and folic acid supplement patient was encouraged to ambulate with physical therapist, patient was not cooperative regarding ambulation patient noted to have low-grade fever urine and blood cultures were obtained incentive spirometry provided while in the bed urine culture revealed no evidence of growth blood cultures were negative. KUB revealed mildly dilated gas-filled small bowel loops likely postoperative ileus however unable to however possibility of small bowel obstruction should be considered. N.p.o. status and TPN continued. Patient subsequently had a Busch catheter was removed on 1014 all labs remained stable intake and output closely monitor patient with low-grade fever and tachycardia stat CT of the abdomen pelvis was performed noted 8.4 x 2 cm gas and fluid collection in the anterior pelvis possibly representing a routine postsurgical collection but could be also infection NG tube was placed to suction ID specialist consulted blood culture via central line was done and revealed coag negative staph likely contaminant in 3 of 4 bottles possible line infection patient also had evidence of possible evidence of pneumonia on chest x-ray. Antibiotic provided as per ID recommendation patient had pelvic fluid collection with aspiration culture was negative sputum culture revealed Klebsiella Gallick provided as per ID recommendation. Ileus was slowly resolving. FILE CLERK was discontinued. On 1017 Patient started on slow on clear liquid diet on 1018 along with the TPN continued. Patient was slowly improving and started on full liquid diet and then advance to be CIR diet. 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 Patient was slowly improving TPN was tapered and discontinued 1026 patient need significant assistance with ambulation calorie count implemented magnesium was further replaced patient completed antibiotic patient was told ileostomy care and management central venous catheter was discontinued prior to discharge after antibiotic discontinued patient was observed for 48 hours appetite slowly increasing magnesium phosphorus further improved replaced placement was patient complained of the urinary symptoms but urinalysis was negative patient started on symptomatic treatment with the Pyridium for few days. Urinalysis urine culture were negative. Patient was able to eat 60% of the tray patient was getting stronger and ambulating short distances and is unassisted. Patient with eating about 60% of the tray food central line discontinued patient was all labs and intake and output satisfactory patient was stable for discharge to long-term facility. Placement was arranged at [facility]. Patient was discharged back to [facility] for further management FINAL DIAGNOSES 1. 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 2. History of ulcerative colitis. 3. Status post multiple abdominal operations. 3.1. Proctocolectomy and Kock pouch, 1978. 3.2. Laparotomy for small-bowel obstruction, 2000. 3.3. Laparotomy with creation of new valve and stoma with preservation of Kock pouch, enteroenterostomy, and revision of Kock pouch stoma in depth, August 28, 2019. 3.4. Laparotomy with small-bowel resection and release of severe high-grade partial small-bowel obstruction due to dense adhesions with finding of small chronic intra-abdominal abscess and performance of temporary catheter gastrostomy, April 29, 2020 4. s/p Resection of failed Kock pouch with creation of conventional Lissette ileostomy. 5. Malnutrition 6. Fevers, leukocytosis, possible sepsis 7. Prolonged ileus vs SBO 8. Pneumonia ( aspiration vs HCAP) 9. Persistent hypomagnesemia Discharge Medications Changed Medications: Ascorbic Acid* (Vitamin C*) 500 Mg Tablet 500 MG ORAL TID PRN for Thick Ileostomy output, TAB 0 Refills (Changed from: DAILY; Removed Quantity) Doxycycline Monohydrate* (Doxycycline Monohydrate*) 100 Mg Capsule 100 MG ORAL Q12HR for ATB, CAP 0 Refills (Medication details modified) Total 5 days Continued Medications: Aspirin* (Aspirin*) 81 Mg Tab.chew 81 MG ORAL DAILY, TAB Atorvastatin Calcium* (Atorvastatin Calcium*) 20 Mg Tablet 20 MG ORAL BEDTIME, TAB Bupropion Sr* (Wellbutrin Sr*) 100 Mg Tablet.er 200 MG ORAL TWICE A DAY, TAB 0 Refills Celecoxib* (Celebrex*) 100 Mg Capsule 200 MG ORAL TWICE A DAY for pain, CAP Cholecalciferol (Vitamin D3) (Vitamin D-400) 10 Mcg Tablet Unknown Dose PO DAILY for SUPPLEMENT, TAB Citalopram Hydrobromide* (Celexa*) 20 Mg Tablet 40 MG ORAL DAILY, TAB Cyanocobalamin (Vitamin B-12) (Vitamin B-12) 1,000 Mcg Tab.subl 3000 MCG SL DAILY for supplement, TAB Dicyclomine Hcl (Dicyclomine Hcl) 10 Mg/5 Ml Solution 10 MG PO FOUR TIMES A DAY PRN for Abdominal cramps Folic Acid* (Folic Acid*) 1 Mg Tablet 1 MG ORAL DAILY for SUPPLEMENT, TAB Hydrocodone Bit/Acetaminophen 5-325* ([place] 5-325*) 1 Each Tablet 1 TAB ORAL Q6H PRN for For Pain, TAB 0 Refills Lactulose (Lactulose) 10 Gm/15 Ml Solution 10 GM PO TWICE A DAY PRN for Thick or No Ileosotmy output Lorazepam* (Ativan*) 1 Mg Tablet 1 MG ORAL Q6HR PRN for For Anxiety, TAB Magnesium Oxide (Magox 400) 400 Mg Tablet 400 MG ORAL TID for magnesium supllement, #30 TAB 0 Refills Mirabegron (Myrbetriq) 50 Mg Tab.er.24h 50 MG PO DAILY, TAB Ondansetron* (Zofran*) 4 Mg Tablet 4 MG ORAL Q4HR PRN for Nausea & Vomiting, TAB Pantoprazole* (Protonix*) 40 Mg Tablet.dr 40 MG ORAL BEFORE BREAKFAST, TAB Phenazopyridine Hcl* (Pyridium*) 200 Mg Tablet 200 MG ORAL TID PRN for Itching/Pruritis w/ urination, TAB 0 Refills Simethicone* (Simethicone*) 80 Mg Tab.chew 80 MG ORAL FOUR TIMES A DAY PRN for Abdominal cramps or gas, TAB 0 Refills Trazodone Hcl* (Desyrel*) 100 Mg Tablet 200 MG ORAL BEDTIME for SLEEP, TAB Zinc Sulfate (Zinc Sulfate*) 220 Mg Capsule 220 MG ORAL DAILY for supplement, CAP 0 Refills Discontinued Medications: Cyclobenzaprine Hcl (Cyclobenzaprine Hcl) 5 Mg Tablet 5 MG ORAL THREE TIMES A DAY PRN for Abdominal cramps, TAB Discharge Condition Upon Discharge: stable Discharge Vital Signs Last Vital Signs Date Time Temp Pulse Resp B/P (MAP) Pulse Ox O2 Delivery O2 Flow Rate FiO2 08/31/20 12:00 97.6 106 16 111/70 (84) 95 08/31/20 09:00 Room Air Discharge Disposition Patient was discharged to the long-term facility for continuation of care Discharge Instructions Discharge Instructions Special Instructions I have been assigned to complete a D/C Summary on this account. I was not involved in the patient management Carolyne Case NP Sep 01, 2020 08:02
== END 2020-08-31 13:40 | DRG 329 ==
LOC: EMR 13:30 → 3E 13:42 → EDBEDREQ 14:35
PROC: 0DJD8ZZ Inspection of Lower Intestinal Tract, Via Natural or Artificial Opening Endoscopic (ICD-10-PCS; principal; 2020-07-16 13:50)
PROC: 02HV33Z Insertion of Infusion Device into Superior Vena Cava, Percutaneous Approach (ICD-10-PCS; 2020-07-17)
PROC: B518ZZA Fluoroscopy of Superior Vena Cava, Guidance (ICD-10-PCS; 2020-07-17)
PROC: 0DJD8ZZ Inspection of Lower Intestinal Tract, Via Natural or Artificial Opening Endoscopic (ICD-10-PCS; 2020-07-20)
PROC: 0DJD8ZZ Inspection of Lower Intestinal Tract, Via Natural or Artificial Opening Endoscopic (ICD-10-PCS; 2020-08-04)
PROC: 05HM33Z Insertion of Infusion Device into Right Internal Jugular Vein, Percutaneous Approach (ICD-10-PCS; 2020-08-05)
PROC: B513ZZA Fluoroscopy of Right Jugular Veins, Guidance (ICD-10-PCS; 2020-08-05)
PROC: 0JH63XZ Insertion of Tunneled Vascular Access Device into Chest Subcutaneous Tissue and Fascia, Percutaneous Approach (ICD-10-PCS; 2020-08-05)
PROC: 0DBB0ZZ Excision of Ileum, Open Approach (ICD-10-PCS; 2020-08-06)
PROC: 0D1B0Z4 Bypass Ileum to Cutaneous, Open Approach (ICD-10-PCS; 2020-08-06)
DX: K91.858 Other complications of intestinal pouch (principal); A41.9 Sepsis, unspecified organism; J69.0 Pneumonitis due to inhalation of food and vomit; E46 Unspecified protein-calorie malnutrition; K51.90 Ulcerative colitis, unspecified, without complications; K56.51 Intestinal adhesions [bands], with partial obstruction; K56.7 Ileus, unspecified; E83.42 Hypomagnesemia; E86.0 Dehydration; Y95 Nosocomial condition; F41.9 Anxiety disorder, unspecified; D50.0 Iron deficiency anemia secondary to blood loss (chronic); Z20.828 Contact with and (suspected) exposure to other viral communicable diseases
CPT/HCPCS: 36415; 36558; 36569; 71045; 74018; 74177; 75989; 76000; 76937; 80048; 80053; 80202; 81001; 81003; 82248; 82607; 82746; 82962; 83540; 83550; 83735; 84100; 85007; 85025; 85610; 85730; 86850; 86900; 86901; 86920; 87040; 87070; 87075; 87086; 87181; 87205; 87324; 93005; 93970; 93971; 94003; 94150; 96360; 99285; J1815; J2250; J2405; J2765; J7030; U0002

== ENCOUNTER 2020-09-05 21:03 | Inpatient (IN) | payer MEDICARE ==
[~2020-09-05] VITALS: Ht 165.1 cm; Wt 53.8 kg
[~2020-09-05 21:03] MED LIST changes: +ATIVAN1 MG ORAL; +CYCLOBENZAPRINE5 MG ORAL; +DICYCLOMIN10 MG/5 M1 PO; +DOXYCYCLINE MO100 MG ORAL; +FOLIC ACID1 MG ORAL; +LACTULOSE10 GM/153 PO; +PHENAZOPYRIDIN200 MG ORAL; +SIMETHICONE80 MG ORAL; +TRAZODONE HCL100 MG ORAL; +VITAMIN B-121000 MC2 SL; +VITAMIN C500 M1 ORAL; +VITAMIN D-40010 MCG PO; +ZINC SULFATE220 M1 ORAL; +ZOFRAN4 M3 ORAL
--- NOTE | 2020-09-05 21:40 | NUR ---
ED Nurse Note: Recieved pt BIBA from SNF with c/o abd pain and illeostomy bag leaking, pt has gastric pouch recently placed and was sent to SNF for rehab 3 days ago, pt states has been having increasing pain and bag has been leaking entire time and now her skin is so irritated she can not stand pain, mild redness noted around stoma site with small amount of leakage, pt denies chest pain, sob, nausea or vomiting, pain raated at 04/08, pt primary is and aware of pt admission, will resume care as ordered and prepare for admission.
[2020-09-05] MEDS ORDERED: HYDROcodone/Acetamin 5/325 tab ORAL ONE (21:45)
--- NOTE | 2020-09-05 21:46 | Emergency Room Report ---
History of Present Illness General Chief Complaint: Malfunctioning Gastric Tube Present Illness HPI Disclaimer: Please note that this report is being documented using [email or web address]. This can lead to erroneous entry secondary to incorrect interpretation by the dictating instrument. HPI: This is a 69-year-old female history of ileostomy, madrigal pouch, [facility]. Apparently at her [facility] they did not have the correct equipment to handle her ileostomy and now she is having some skin breakdown and increased pain at her ileostomy site. She was sent here by her surgeon, Dr. Meadows. Patient denies any fevers or vomiting. Does report abdominal pain approximately 8 out of 10 at the site and nonradiating. Allergies: Coded Allergies: CEFEPIME (Verified Adverse Reaction, Severe, 08/05/20) causes low platlets ADHESIVE TAPE (Verified Adverse Reaction, Intermediate, Rash, 08/27/19) CLEAR TAPE COVID-19 Screening Contact w/high risk pt: No Recent Travel to affected area: No Experienced COVID-19 symptoms?: No COVID-19 Testing performed CONSTRUCTION MANAGER: No Patient History Reviewed Nursing Documentation: PMH: Agreed; PSxH: Agreed Nursing Documentation-PMH Hx Cardiac Problems: Yes Hx Asthma: No Hx Cancer: No Hx Gastrointestinal Problems: Yes - PARTIAL INTERSTITIAL OBSTRUCTION. Hx Neurological Problems: No Review of Systems All Other Systems: negative except mentioned in HPI Physical Exam Vital Signs Date Time Temp Pulse Resp B/P (MAP) Pulse Ox O2 Delivery O2 Flow Rate FiO2 09/05/20 21:28 97.3 100 13 132/60 (84) 99 Room Air Sp02 EP Interpretation: reviewed, normal General Appearance: well appearing, no apparent distress Head: normocephalic, atraumatic Eyes: bilateral eye PERRL, bilateral eye EOMI ENT: hearing grossly normal, moist mucus membranes Neck: full range of motion, supple Respiratory: lungs clear, normal breath sounds, no rhonchi, no respiratory distress, no retraction, no wheezing Cardiovascular #1: normal peripheral pulses, no murmur, tachycardia Gastrointestinal: non tender, soft, non-distended, no guarding, other - Ileostomy in lower abdomen, mild surrounding erythema with small amount of skin breakdown. Positive stool output. Neurologic: alert, oriented x3, no focal defects Skin: normal color, warm/dry Medical Decision Making Diagnostic Impression: Primary Impression: Ileostomy dysfunction ER Course MDM: Patient presented from [facility] due to ileostomy dysfunction. She had a small amount of breakdown around the site as well due to ill fitting equipment. Sent here by her surgeon. Patient will require admission for further ileostomy care and observation. Basic laboratory studies were sent in the ER. She will be admitted under Dr. Meadows. Laboratory Tests Last Vital Signs Date Time Temp Pulse Resp B/P (MAP) Pulse Ox O2 Delivery O2 Flow Rate FiO2 09/05/20 21:28 97.3 100 13 132/60 (84) 99 Room Air Disposition: ADMITTED INPATIENT Condition: Serious Jozef Sheehan M.D. Sep 05, 2020 21:46
[2020-09-05 22:12] LABS: BASOPHILS % (AUTO) 0.3 % (0.0-2.0); EOSINOPHILS % (AUTO) 0.2 % (0.0-3.0); HEMATOCRIT 39.1 % (37.0-47.0); HEMOGLOBIN 12.4 G/DL (12.0-16.0); MEAN CORPUSCULAR VOLUME 101 FL (80-99); NEUTROPHILS % (AUTO) 78.6 % (45.0-75.0); PLATELET COUNT 353 K/UL (150-450); RED BLOOD COUNT 3.89 M/UL (4.20-5.40); RED CELL DISTRIBUTION WIDTH 13.6 % (11.6-14.8); WHITE BLOOD COUNT 9.7 K/UL (4.8-10.8)
[2020-09-05 22:18] LABS: CALCIUM 9.5 MG/DL (8.5-10.1); POTASSIUM 3.7 MMOL/L (3.5-5.1)
[2020-09-05 22:22] LABS: ALBUMIN 2.9 G/DL (3.4-5.0); ALBUMIN/GLOBULIN RATIO 0.6 (1.0-2.7); BILIRUBIN,TOTAL 0.5 MG/DL (0.2-1.0); PHOSPHORUS 2.2 MG/DL (2.5-4.9)
--- NOTE | 2020-09-05 22:30 | NUR ---
ED Nurse Note: Pt labs collected and sent, pt is very hard IV line stick and per he states it is ok for pt to be admitted without one, pt asking for pain meds, orders recieved, will administer and prepare for admit, pt has personal belongings and belongings list completed.
[2020-09-05 23:00] VITALS: BP 132/60
[2020-09-05] MEDS ORDERED: HYDROmorphone 1mg/ml Carpuject IM ONE (23:00)
--- NOTE | 2020-09-05 23:15 | NUR ---
NURSE NOTES: Received phone report from VALERI Griffin from ER. Patient in stable condition.
--- NOTE | 2020-09-05 23:15 | NUR ---
ED Nurse Note: Pt has room for admission, report called to nurse on floor AlisiaRN, pt also medicated for pain, v/s stable, pt is clean and dry, swabs collected and sent, med rec completed with pt, pt taken to unit via gurney with ER-Tech, nad noted during transfer to floor.
--- NOTE | 2020-09-05 23:20 | NUR ---
NURSE NOTES: Patient admitted to [facility] via gurney, belongings list missing, ER attendant will bring shortly. Patient alert, oriented x4, rates pain at 4/10. Oriented to room and unit routines, call light and safety/fall precautions. Patient refused yellow socks for now, has her own. Charge nurse assisted with ileostomy bag change and assessment. Only small amount of yellowish stool in bag, skin cleansed with soap and water, allowed to dry. Stoma bright red, measuring 1 1/4 inches (32 mm), surrounding skin with erythema and excoriation approx 14 cm in diameter. Applied Stomahesive powder, patted with skin barrier wipes and allowed to dry. Then applied Convatec Durahesive moldable wafer and Convatec pouch (2 1/4 in) with opening at 45 degrees towards R hip. Patient tolerated well. Bed in low position, locked, side rails up x 2. Call light within reach
[2020-09-05 23:30] VITALS: BP 115/72
[2020-09-06] MEDS ORDERED: LORazepam 1mg tab ORAL PRN (00:30)
--- NOTE | 2020-09-06 00:30 | NUR ---
NURSE NOTES: Received admitting orders from Dr Meadows.
[2020-09-06] MEDS ORDERED: Dicyclomine HCl 10mg/5ml oral soln ORAL PRN (02:00)
[2020-09-06] MEDS ORDERED: Ascorbic Acid 500mg tab ORAL PRN (02:00)
[2020-09-06] MEDS ORDERED: Lactulose 10gm/15ml UDC ORAL PRN (02:15)
[2020-09-06] MEDS ORDERED: Phenazopyridine 200mg tab ORAL PRN (02:30)
[2020-09-06] MEDS ORDERED: Simethicone 80mg tab ORAL PRN (02:30)
[2020-09-06 04:48] VITALS: BP 104/63
--- NOTE | 2020-09-06 07:04 | NUR ---
NURSE HAND-OFF: Important Events on Shift: admitted to 305, patient slept very well, minimal pain, encouraged to drink fluids, patient refused, urine output (2330 -0600): 100 cc, ILEO output: 50 cc, liquid, brownish Patient Status: stable Diet: reg Pending Orders: CM and PT consult Pending Results/Labs:MRSA, VRE, CRE Pending MD notification: will notify of low output overnight Latest Vital Signs: Temperature 97.8 , Pulse 100 , B/P 104 /63 , Respiratory Rate 16 , O2 SAT 96 , Room Air, O2 Flow Rate . Vital Sign Comment: [] Latest Carmel Fall Score: 25 Fall Risk: Medium Risk Safety Measures: Call light Within Reach, Bed Alarm Zone 1, Side Rails Side Rails x2, Bed position Low and Locked. Fall Precautions: Yellow Socks Yellow Gown Door Sign Patient Fall Education Report given to []. Addendum: 09/06/20 at 0709 by Alisia Diane RN left message for Dr Meadows regarding oral intake, urine output and ileo output
--- NOTE | 2020-09-06 07:30 | NUR ---
HAND-OFF: Report given to VALERI Hutchinson. ileo site picture taken upon admision was uploaded.
--- NOTE | 2020-09-06 07:45 | NUR ---
NURSE NOTES: Pt asleep and resting; will defer my assessment for a later time. Will continue to monitor.
[2020-09-06 09:00] VITALS: BP 121/70
[2020-09-06] MEDS ORDERED: Magnesium Oxide 400mg tab ORAL SCH (09:00)
[2020-09-06] MEDS ORDERED: celeBREX 200mg Cap **SURGERY PATIENTS ONLY ORAL SCH (09:00)
--- NOTE | 2020-09-06 09:00 | NUR ---
NURSE NOTES: Pt lying in bed w/bed in lowest position and call light within reach. Pt A&Ox4, VSS, and in no apparent distress. Pt has no IV access; aware. Pt's peristomal skin is excoriated/erythematous d/t constant leakage from ileostomy bag; ileostomy bag presently dry and intact. Will continue to monitor.
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
[2020-09-06] MEDS: MYRBETRIQ 50 MG ORAL SCH (09:39)
[2020-09-06] MEDS: BuPROPion SR 100mg tab ORAL SCH ×2 (09:40→18:44)
[2020-09-06] MEDS: Vitamin B-12 500mcg tab SL SCH (09:40)
[2020-09-06] MEDS: Aspirin Baby 81mg NG SCH (09:40)
[2020-09-06] MEDS: Citalopram Hydrobromide 10mg Tab ORAL SCH (09:41)
[2020-09-06] MEDS: Magnesium Oxide 400mg tab ORAL SCH ×4 (09:43→21:20)
--- NOTE | 2020-09-06 11:00 | NUR ---
NURSE NOTES: Pt's ileostomy bag leaking; pt resistant to change appliance herself so I coached her on how to do it. Pt still very dependent on nursing staff for ADLs. Will continue to monitor.
[2020-09-06 12:00] VITALS: BP 121/60
[2020-09-06] MEDS: Meloxicam 15 MG TAB ORAL SCH (13:25)
--- NOTE | 2020-09-06 14:00 | NUR ---
NURSE NOTES: Pt's appliance noted to be leaking again; assisted pt to change. Will continue to monitor.
[2020-09-06 16:00] VITALS: BP 121/68
--- NOTE | 2020-09-06 16:00 | NUR ---
NURSE NOTES: Pt's ileostomy bag leaking again; helped pt change to new appliance; pt's sister to bring ileo appliance from home; confirmed w/wound care nurse that she will see pt tomorrow. Will continue to monitor.
--- NOTE | 2020-09-06 16:02 | NUR ---
PT Note PT angélica completed, treatment initiated. Patient has muscle weakness, decreased standing balance with c/o dizziness during gait training, requiring assist and making her at a risk for falls. Patient needs PT services to increase her muscle strength and balance to improve her safety in mobility and gait. Addendum: 09/06/20 at 1603 by BRAVO LEE PT Amended: Links added.
--- NOTE | 2020-09-06 18:30 | NUR ---
NURSE NOTES: Helped pt change ileostomy appliance/bag w/supplies brought from home by her sister. Will continue to monitor.
--- NOTE | 2020-09-06 19:22 | NUR ---
NURSE HAND-OFF: Important Events on Shift: Helped pt change ileostomy appliance/bag four times today, last time w/supplies she was sent home with; ambulated w/PT in room; refusing to get up to BSC to void and insists on using bedpan. Patient Status: Stable Diet: Regular Pending Orders: None Pending Results/Labs:None Pending MD notification:None Latest Vital Signs: Temperature 98.4 , Pulse 109 , B/P 121 /68 , Respiratory Rate 16 , O2 SAT 95 , Room Air, O2 Flow Rate Vital Sign Comment: Pt tachycardic Latest Henry Fall Score: 25 Fall Risk: Medium Risk Safety Measures: Call light Within Reach, Bed Alarm Zone 1, Side Rails Side Rails x2, Bed position Low and Locked. Fall Precautions: Yellow Socks Yellow Gown Door Sign Patient Fall Education Report given to VALERI Crump.
--- NOTE | 2020-09-06 19:23 | NUR ---
NURSE NOTES: Received report from VALERI Hutchinson. Rounds done. Ileo bag intact, no leaking noted. Patient doing well, no needs at this time. Encouraged to call as needed. Discussed plan to increase patient's independence in taking care of ileo bag and ambulating while being coached by nurse. Patient verbalizes understanding. Bed in low position, locked side rails up x2, call light within reach, BSC close by. Will continue to monitor.
[2020-09-06 20:00] VITALS: BP 119/86
[2020-09-06] MEDS: Atorvastatin 20mg tab ORAL SCH (21:20)
[2020-09-06] MEDS: TraZODone 100mg tab ORAL SCH ×2 (21:20→22:26)
[2020-09-06] MEDS: HYDROcodone/Acetamin 5/325 tab ORAL PRN (21:26)
[2020-09-07] VITALS: BP 103/67
[2020-09-07 05:00] VITALS: BP 127/75
--- NOTE | 2020-09-07 06:02 | NUR ---
NURSE HAND-OFF: Important Events on Shift: Used BSC and emptied ileo bag with very little assistance. Bag only had a small leak in the beginning of shift fixed with lead caregiver. No other leaks noted. Output was thick initially, patient drank grape juice with good results: output is liquid now. Patient had nausea x1, relieved with Zofran ODT. 12 HR INTAKE PO: 240 cc 12 HR OUTPUT Urine: 400 cc Ileo: 325 cc Encouraged to drink more fluids throughout night, patient didn't wish to. Patient Status: stable Diet: regular Pending Orders: wound nurse consult, pillowcase turner, PT Pending Results/Labs: Mag Pending MD notification: Latest Vital Signs: Temperature 98.5 , Pulse 102 , B/P 127 /75 , Respiratory Rate 16 , O2 SAT 98 , Room Air, O2 Flow Rate . Vital Sign Comment: [] Latest Henry Fall Score: 25 Fall Risk: Medium Risk Safety Measures: Call light Within Reach, Bed Alarm Zone 1, Side Rails Side Rails x2, Bed position Low and Locked. Fall Precautions: Yellow Socks Yellow Gown (not available at this time) Door Sign Patient Fall Education
[2020-09-07] MEDS: HYDROcodone/Acetamin 5/325 tab ORAL PRN (06:34)
--- NOTE | 2020-09-07 07:30 | NUR ---
NURSE NOTES: Received report from Alisia. Patient is awake and alert x4. Ileostomy bag is intact and no leakage. No pain is indicated. Went through plan of care and patient verbalized understanding. Bed is in the lowest position and locked. Side rails up x2 and call light within reach.
[2020-09-07 08:00] VITALS: BP 103/65
[2020-09-07] MEDS: BuPROPion SR 100mg tab ORAL SCH ×2 (08:43→17:06)
[2020-09-07] MEDS: Aspirin Baby 81mg NG SCH (08:43)
[2020-09-07] MEDS: MYRBETRIQ 50 MG ORAL SCH (08:44)
[2020-09-07] MEDS: Meloxicam 15 MG TAB ORAL SCH (08:44)
[2020-09-07] MEDS: Citalopram Hydrobromide 10mg Tab ORAL SCH (08:44)
[2020-09-07] MEDS: Magnesium Oxide 400mg tab ORAL SCH ×4 (08:44→21:04)
[2020-09-07] MEDS: Vitamin B-12 500mcg tab SL SCH (08:44)
--- NOTE | 2020-09-07 09:49 | NUR ---
NURSE NOTES: Patient notified that her ileostomy bag is leaking from the right side. Patient does not want RN to change ileostomy bag at this time. Provided towel to pat dry the skin until wound nurse comes. Notified [facility] wound care nurse.
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
--- NOTE | 2020-09-07 11:38 | NUR ---
NURSE NOTES: [facility] wound care nurse called and wanted the patient to change the bag with RN observe and help if needed. Ileostomy bag is changed. Skin is reddened around the stoma area, but intact. Patient denies any pain at the moment.
[2020-09-07 12:00] VITALS: BP 101/66
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
--- NOTE | 2020-09-07 14:48 | NUR ---
NURSE NOTES: RN and [facility] wound care nurse checked the ileostomy bag and the bag is well secured around stoma and no leakage noted. She denies pain at the moment.
[2020-09-07 16:00] VITALS: BP 115/65
--- NOTE | 2020-09-07 16:33 | NUR ---
*-*DISCHARGE PLANNING*-* PATIENT HAS BEEN REFERRED AND ACCEPTED TO: [facility] P: [phone] ROOM# 403.C S/W RAMON, WILL ACCEPT PATIENT TO ROOM# 403.C
--- NOTE | 2020-09-07 16:38 | NUR ---
*-*DISCHARGE PLANNING*-* PATIENT HAS BEEN REFERRED AND ACCEPTED TO: [facility] P: [phone] FOR NURSE REPORT ROOM# 403.C S/Liana NAVARRO, WILL ACCEPT PATIENT TO ROOM# 403.C Addendum: 09/07/20 at 1640 by IRWIN ZAVALA CM *-*DISCHARGE PLANNING*-* PATIENT HAS BEEN REFERRED AND ACCEPTED TO: [facility] P: [phone] FOR NURSE REPORT ROOM# 403.C Parul/Liana NAVARRO, WILL ACCEPT PATIENT TO ROOM# 403.C, DR OCONNOR WILL FOLLOW.
--- NOTE | 2020-09-07 19:03 | NUR ---
NURSE HAND-OFF: Important Events on Shift:Ileostomy care Patient Status: Stable Diet: Regular Pending Orders: D/C planning Pending Results/Labs: N/A Pending MD notification:N/A Latest Vital Signs: Temperature 98.4 , Pulse 97 , B/P 115 /65 , Respiratory Rate 16 , O2 SAT 94 , Room Air, O2 Flow Rate . Vital Sign Comment: VS stable Latest Henry Fall Score: 25 Fall Risk: Medium Risk Safety Measures: Call light Within Reach, Bed Alarm Zone 1, Side Rails Side Rails x2, Bed position Low and Locked. Fall Precautions: Patient Fall Education Report given to Gino TRAMMELL.
--- NOTE | 2020-09-07 19:16 | NUR ---
NURSE NOTES: received pt and report from VALERI Avery. pt alert and oriented x 4 with no acute s/s of distress and no co pain. ostomy site noted and draining. plan of care discussed.
[2020-09-07 20:00] VITALS: BP 119/67
[2020-09-07] MEDS: Atorvastatin 20mg tab ORAL SCH (21:04)
[2020-09-07] MEDS: TraZODone 100mg tab ORAL SCH (21:05)
[2020-09-08] VITALS: BP 120/68
[2020-09-08 04:00] VITALS: BP 121/68
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
--- NOTE | 2020-09-08 07:14 | NUR ---
NURSE HAND-OFF: Important Events on Shift:ileostomy appliance leak, new one installed, pt tolerated well Patient Status: stable Diet: regular Pending Orders: NA Pending Results/Labs:NA Pending MD notification:NA Latest Vital Signs: Temperature 98.8 , Pulse 109 , B/P 121 /68 , Respiratory Rate 18 , O2 SAT 97 , Room Air, O2 Flow Rate . Vital Sign Comment: stable through the shift Latest Henry Fall Score: 25 Fall Risk: Medium Risk Safety Measures: Call light Within Reach, Bed Alarm Zone 1, Side Rails Side Rails x2, Bed position Low and Locked. Fall Precautions: Patient Fall Education Report given to VALERI Dickens.
--- NOTE | 2020-09-08 07:39 | NUR ---
NURSE NOTES: Received report from Gino RN. Patient is asleep at the moment. Breathing is unlabored and even. No acute distress noted. Yellow gown and socks on patient. Call light within reach. Bed on the lowest position and locked. Will continue to monitor.
[2020-09-08 08:00] VITALS: BP 123/71
[2020-09-08] MEDS: Aspirin Baby 81mg NG SCH (09:35)
[2020-09-08] MEDS: Meloxicam 15 MG TAB ORAL SCH (09:35)
[2020-09-08] MEDS: Citalopram Hydrobromide 10mg Tab ORAL SCH (09:35)
[2020-09-08] MEDS: Magnesium Oxide 400mg tab ORAL SCH ×2 (09:35→12:55)
[2020-09-08] MEDS: BuPROPion SR 100mg tab ORAL SCH (09:36)
[2020-09-08] MEDS: Vitamin B-12 500mcg tab SL SCH (09:36)
[2020-09-08] MEDS: MYRBETRIQ 50 MG ORAL SCH (09:42)
--- NOTE | 2020-09-08 10:16 | General Progress Note ---
Progress Note Progress Note Stable and still requiring ileostomy care assistance/education Mg coming up with QID dosing po Abdomen soft Imp: Stable Plan: Transfer to [facility] Patient advised re follow-up with Lalo Ren MD Sep 08, 2020 10:16
--- NOTE | 2020-09-08 10:51 | NUR ---
*-*DISCHARGE PLANNED*-* PATIENT HAS BEEN ACCEPTED AND WILL BE DISCHARGED BACK TO: [facility] P: [phone] [id number] FOR NURSE REPORT ROOM# 407.C [facility] SET FOR 12PM S/W ANN [id number] PLACED A CALL TO PATIENTS SISTER BENNIE PEREZ, LINE WAS BUSY, UNABLE TO LEAVE VOICE MESSAGE.
[2020-09-08 12:00] VITALS: BP 111/59
--- NOTE | 2020-09-08 13:00 | NUR ---
NURSE NOTES: Called and gave report to Tennille HERNANDEZ at [facility].
--- NOTE | 2020-09-08 13:55 | NUR ---
NURSE NOTES: Patient discharged without distress by ambulance. Patient provided with osotomy supplies. Patient's home medications returned to patient. All belongings sent with patient.
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
== END 2020-09-08 13:52 | DRG 394 ==
LOC: EDBD 21:03 → EDUNIT# 21:03 → EMR 21:15 → EDBEDREQ 21:16 → 3E 21:55
DX: K94.13 Enterostomy malfunction (principal); E46 Unspecified protein-calorie malnutrition; Y83.3 Surgical operation with formation of external stoma as the cause of abnormal reaction of the patient, or of later complication, without mention of misadventure at the time of the procedure; E83.39 Other disorders of phosphorus metabolism; E83.42 Hypomagnesemia; Z88.8 Allergy status to other drugs, medicaments and biological substances; Z87.19 Personal history of other diseases of the digestive system
CPT/HCPCS: 36415; 80053; 83735; 84100; 85025; 87081; 96372; 99285; U0002